=== PATIENT | female | born 1940 | race African-American/Black ===

== ENCOUNTER 2016-09-27 21:11 | Inpatient (IN) | payer MEDICARE, MEDICAID ==
[~2016-09-27] VITALS: Ht 162.6 cm; Wt 63.5 kg
[~2016-09-27 21:11] MED LIST: ASPIR 8181 MG ORAL; ATORVASTATIN CA20 MG ORAL; ATORVASTATIN CA40 MG ORAL; ATORVASTATIN CA80 MG ORAL; ATORVASTATIN CA80 MG PO; CARVEDILOL3.125 MG ORAL; CARVEDILOL6.25 MG ORAL; CLOPIDOGREL75 MG PO; COZAAR50 MG ORAL; DONEPEZIL HCL10 M2 ORAL; DONEPEZIL HCL5 M2 ORAL; FERROUS SULFAT325 MG ORAL; IMODIUM2 MG ORAL; LISINOPRIL10 MG PO; LOSARTAN POTASS25 MG ORAL; LOSARTAN POTASS50 MG PO; LYRICA25 MG ORAL; METFORMIN HCL500 M1 ORAL; METFORMIN HCL500 M1 PO; METOPROLOL SUCC50 MG PO; NIZORAL 2% C1 APPLIC TOPIC; NORCO 5-325 TA1 EAC1 ORAL; PLAVIX75 MG ORAL; PROCRIT20000 UNI2 SUBQ; SERTRALINE HCL100 MG ORAL; SERTRALINE HCL25 MG ORAL; TEMAZEPAM15 MG ORAL; TEMAZEPAM7.5 MG ORAL; TYLENOL325 MG ORAL; ZOFRAN ODT4 MG ORAL; ZOLPIDEM TARTRA10 MG PO
--- NOTE | 2016-09-27 21:46 | Emergency Room Report ---
History of Present Illness General Chief Complaint: Altered Level of Consciousness Source: Patient, Medical Record, EMS Present Illness HPI This is a 75-year-old female who is a Jehovah witness. She has a history of chronic anemia. She presents with chief complaint of feeling weak and tired. Onset for the last few days but worse today. Also has dysuria. Denies any fever chills denies any nausea vomiting. No abdominal pain. Worse with exertion. No chest pain. Allergies: Coded Allergies: LATEX (Unverified Allergy, Mild, Rash, 09/03/14) QUININE (Unverified Allergy, Unknown, Rash Hives, 05/23/15) Quinine Sulfate Patient History Past Medical History: see triage record, old chart reviewed, CAD, CHF, CVA/TIA Past Surgical History: pacemaker, other Pertinent Family History: none Social History: Denies: smoking Now: No Immunizations: other Reviewed Nursing Documentation: PMH: Agreed, PSxH: Agreed Nursing Documentation-PMH Past Medical History: No History, Except For Hx Cardiac Problems: Yes - CAD; s/p PTCA with 2 stents in 05/2014; CHF; hypercholesterolemia Hx Hypertension: Yes Hx Pacemaker: Yes - Left side Hx Asthma: Yes Hx Diabetes: Yes Hx Cancer: No Hx Gastrointestinal Problems: Yes - IBS; cholecystecomy; Hx Neurological Problems: Yes - Aphasia Hx Cerebrovascular Accident: Yes - 2015, left side deficit Hx Dementia: Yes Hx Vertigo: Yes Hx Dizziness: Yes Hx Syncope: Yes Hx Headaches: Yes Hx Weakness: Yes Hx Fatigue: Yes Review of Systems Constitutional: Reports: weakness Eye: Denies: blurred vision, eye pain ENT: Denies: ear pain, nose congestion, throat swelling Respiratory: Denies: cough, shortness of breath Cardiovascular: Denies: chest pain, palpitations Gastrointestinal: Denies: abdominal pain, diarrhea, nausea, vomiting Genitourinary: Reports: dysuria Musculoskeletal: Denies: back pain, joint pain Skin: Denies: rash Neurological: Denies: headache, numbness Endocrine: Denies: increased thirst, increased urine Hematologic/Lymphatic: Denies: easy bruising All Other Systems: negative except mentioned in HPI Physical Exam Vital Signs Date Time Temp Pulse Resp B/P Pulse Ox O2 Delivery O2 Flow Rate FiO2 09/27/16 21:00 98.6 70 16 145/81 97 Room Air vitals normal Sp02 EP Interpretation: reviewed, normal General Appearance: no apparent distress, alert, Chronically Ill Head: normocephalic, atraumatic Eyes: bilateral eye EOMI, bilateral eye PERRL, bilateral eye other - Pale conjunctiva ENT: hearing grossly normal, normal pharynx Neck: full range of motion, supple, no meningismus Respiratory: chest non-tender, lungs clear, normal breath sounds Cardiovascular #1: regular rate, rhythm, no murmur Gastrointestinal: normal bowel sounds, non tender, no mass, no organomegaly, no bruit, non-distended Musculoskeletal: back normal, normal range of motion Neurologic: alert, oriented x3, other - left hemiparesis, chronic Psychiatric: mood/affect normal Skin: warm/dry, pallor Medical Decision Making Diagnostic Impression: Primary Impression: UTI (urinary tract infection) Qualified Codes: N30.00 - Acute cystitis without hematuria Additional Impressions: Altered level of consciousness Anemia Qualified Codes: D50.9 - Iron deficiency anemia, unspecified Refusal of blood transfusions as patient is Sabianism ER Course Patient presents with altered mental status most likely secondary to infection. She is anemic. Hemoglobin worse and last admission. She refused transfusion because she is itchy all the witness. She looks euvolemic even though BNP is elevated. No evidence of fluid overloaded. Will admit for antibiotics. I discussed the case with Dr. Watson who was riding were for Dr. Jones. Lab Results Impression labs showed anemia EKG Diagnostic Results Rate: normal Rhythm: NSR - paced ST Segments: no acute changes Rhythm Strip Diag. Results EP Interpretation: yes Rate: 60 Rhythm: NSR, no PVC's, no ectopy, other - paced Last Vital Signs Date Time Temp Pulse Resp B/P Pulse Ox O2 Delivery O2 Flow Rate FiO2 09/27/16 21:00 98.6 70 16 145/81 97 Room Air Status: improved Disposition: ADMITTED INPATIENT Condition: Serious Referrals: Lobito Jones MD (PCP) SONALI TRIVEDI M.D. Sep 27, 2016 21:46
[2016-09-27 22:07] LABS: MEAN CORPUSCULAR HEMOGLOBIN 28.9 PG (27.0-31.0); MEAN CORPUSCULAR HGB CONC 31.6 G/DL (32.0-36.0); MEAN CORPUSCULAR VOLUME 92 FL (80-99); MEAN PLATELET VOLUME 6.5 FL (6.5-10.1); PLATELET COUNT 205 K/UL (150-450); RED BLOOD COUNT 2.66 M/UL (4.20-5.40); RED CELL DISTRIBUTION WIDTH 15.6 % (11.6-14.8); WHITE BLOOD COUNT 6.4 K/UL (4.8-10.8)
[2016-09-27 22:09] LABS: APPEARANCE,URINE CLEAR; KETONES,URINE NEGATIVE (NEGATIVE); LEUKOCYTE ESTERASE ,URINE 3+ (NEGATIVE); NITRITE,URINE NEGATIVE (NEGATIVE); PH,URINE 6 (4.5-8.0); PROTEIN,URINE NEGATIVE (NEGATIVE); UROBILINOGEN,URINE NORMAL MG/DL (0.0-1.0)
[2016-09-27 22:24] LABS: INR 1.1 (0.9-1.1); PROTHROMBIN TIME 11.7 SEC (9.30-11.50)
[2016-09-27 22:31] LABS: ALANINE AMINOTRANSFERASE 8 U/L (3-33); ALBUMIN/GLOBULIN RATIO 1.2 (1.0-2.7); ANION GAP 16 (5-15); ASPARTATE AMINO TRANSFERASE 14 U/L (5-40); CALCIUM 8.8 mg/dL (8.6-10.2); CARBON DIOXIDE 23 mEQ/L (20-30); CHLORIDE 103 mEQ/L (98-107); CREATININE 0.6 mg/dL (0.5-0.9); HEMOLYSIS 4; SODIUM 142 mEQ/L (135-145); TOTAL PROTEIN 6.2 g/dL (6.6-8.7); TROPONIN I < 0.30 ng/mL (<=0.30)
[2016-09-27 22:32] VITALS: BP 149/72
[2016-09-27 22:37] LABS: BACTERIA,URINE FEW /HPF; RBC,URINE 0-2 /HPF (0 - 2); SQUAMOUS EPITHELIAL CELL,UR MANY /LPF (NONE/OCC)
[2016-09-27] MEDS ORDERED: cefTRIAXone 1 GM in NS 55 ML IVPB ONE (22:45)
[2016-09-27] MEDS ORDERED: DuoNeb 0.5-3(2.5)mg/3ml neb HHN PRN (23:00)
[2016-09-27] MEDS ORDERED: Miralax 17gm pkt ORAL PRN (23:00)
[2016-09-27] MEDS ORDERED: Nitroglycerin Subl 0.4mg tab (Bottle Of 25) SL PRN (23:00)
[2016-09-27] MEDS ORDERED: Mylanta II UD 30ml ORAL PRN (23:00)
[2016-09-27 23:10] LABS: EOSINOPHILS % (MANUAL) 5 % (0-3); LYMPHOCYTES % (MANUAL) 23 % (20-45); NEUTROPHILS % (MANUAL) 70 % (45-75); TOTAL CELLS COUNTED 100
[2016-09-27 23:11] LABS: ANISOCYTOSIS 1+; BAND NEUTROPHILS % (MANUAL) 0 % (0-8); BASOPHILS % (MANUAL) 0 % (0-2); HYPOCHROMASIA 1+; PLATELET ESTIMATE ADEQUATE; PLATELET MORPHOLOGY NORMAL; POLYCHROMASIA 1+
[2016-09-28 00:31] VITALS: BP 190/84
[2016-09-28] MEDS ORDERED: cloNIDine 0.2mg Tab ORAL ONE (00:45)
[2016-09-28 04:00] VITALS: BP 111/71
[2016-09-28] MEDS: NovoLOG Insulin Flexpen SUBQ SCH ×4 (06:37→21:00)
[2016-09-28 08:09] VITALS: BP 151/73
[2016-09-28 08:21] LABS: MEAN CORPUSCULAR HEMOGLOBIN 28.3 PG (27.0-31.0); MEAN CORPUSCULAR HGB CONC 30.8 G/DL (32.0-36.0); MEAN CORPUSCULAR VOLUME 92 FL (80-99); PLATELET COUNT 196 K/UL (150-450); RED BLOOD COUNT 2.55 M/UL (4.20-5.40); RED CELL DISTRIBUTION WIDTH 15.9 % (11.6-14.8); WHITE BLOOD COUNT 6.2 K/UL (4.8-10.8)
[2016-09-28 08:55] LABS: ANION GAP 13 (5-15); CALCIUM 8.7 mg/dL (8.6-10.2); CARBON DIOXIDE 25 mEQ/L (20-30); CHLORIDE 105 mEQ/L (98-107); CREATININE 0.5 mg/dL (0.5-0.9); HEMOLYSIS 2; PHOSPHORUS 2.9 mg/dL (2.5-4.8); POTASSIUM 3.8 mEQ/L (3.4-4.9); SODIUM 143 mEQ/L (135-145)
[2016-09-28 09:00] LABS: HEMOLYSIS 1; IRON 21 ug/dL (37-145); TOTAL IRON BINDING CAPACITY 226 ug/dL (250-400)
[2016-09-28] MEDS: Sertraline 100mg tab ORAL SCH (09:00)
[2016-09-28] MEDS: Donepezil 5mg Tab ORAL SCH (09:00)
[2016-09-28] MEDS ORDERED: Cefepime HCl 1 GM in D5W 55 ML IV SCH (09:00)
[2016-09-28] MEDS: Losartan 25mg tab ORAL SCH (09:00)
[2016-09-28] MEDS: Heparin 5000 units/ml inj SUBQ SCH ×2 (09:01→21:16)
[2016-09-28 10:43] LABS: ANISOCYTOSIS 1+; BAND NEUTROPHILS % (MANUAL) 0 % (0-8); BASOPHILS % (MANUAL) 0 % (0-2); EOSINOPHILS % (MANUAL) 4 % (0-3); HYPOCHROMASIA 1+; LYMPHOCYTES % (MANUAL) 21 % (20-45); NEUTROPHILS % (MANUAL) 69 % (45-75); PLATELET ESTIMATE ADEQUATE; PLATELET MORPHOLOGY NORMAL; TOTAL CELLS COUNTED 100
[2016-09-28 10:52] LABS: OTHERS PATHOLOGIST COMMENT
[2016-09-28] MEDS ORDERED: Iron Sucrose 200 MG in NS 110 ML IVPB ONE ×2 (11:06→12:00)
[2016-09-28 11:25] VITALS: BP 145/84
--- NOTE | 2016-09-28 11:35 | Diagnostic Imaging Report ---
Indication: Dyspnea Comparison: 08/01/16 A single view chest radiograph was obtained. Findings: Heart is enlarged. Aorta is mildly enlarged the bones are osteopenic. There is a pacemaker on the left. Impression: No acute disease
--- NOTE | 2016-09-28 13:08 | Wound Care Consultation ---
Wound Assessment Wound Assessment : Wound Number: #1 Wound Present on Admission: Yes New Wound: No Status Change of Wound: No Wound Location Body Site Modif: mid Wound Location Body Site: sacral Wound Type: pressure ulcer Leesa Test: Does not Leesa Pressure Ulcer Stage: II Wound Thickness: Partial Thickness Wound Length: 3.0 Wound Width: 0.5 Wound Depth: 0.1 Percent of Wound [place]/Red: 100 Wound Drainage Amount: None Wound Drainage Odor: None/Absent Tissue Surrounding Wound: Macerated - linear wound present Wound General Appearance: Reddened Wound Comment #1 Mid Sacral Pressure Ulcer Stage II. Recommendation -Apply Low Air loss Overlay Mattress. -Provided treatment as previously ordered.Local wound care. -Optimize Nutrition. -Keep clean and dry. -Turn and reposition. -Offload feet and heels. -Heel protectors. -Assess and follow up with MD if any changes are noted. SAMANTHA KIM Sep 28, 2016 13:08
--- NOTE | 2016-09-28 15:14 | Consultation ---
History of Present Illness General Date patient seen: Sep 28, 2016 Chief Complaint: Altered Level of Consciousness Referring physician: Dr. Jones Reason for Consultation: dyspnea Present Illness HPI 75-year-old female with hx of pacemaker, Dementia, Jehovah witness brought in with chief complaint of feeling weak and tired. Onset for the last few days but worse today. She also has dysuria. Denies any fever chills denies any nausea vomiting. She was found to be severely anemic and because of her pace maker she is admitted to Telemetry. Allergies: Coded Allergies: LATEX (Unverified Allergy, Mild, Rash, 09/03/14) QUININE (Unverified Allergy, Unknown, Rash Hives, 05/23/15) Quinine Sulfate Medication History Scheduled Aspirin* (Aspir 81*), 81 MG ORAL DAILY, (Reported) Atorvastatin Calcium* (Atorvastatin Calcium*), 20 MG ORAL BEDTIME, (Reported) Carvedilol* (Carvedilol*), 3.125 MG ORAL BID, (Reported) Clopidogrel Bisulfate* (Plavix*), 75 MG ORAL DAILY, (Reported) Donepezil Hcl* (Donepezil Hcl*), 5 MG ORAL DAILY, (Reported) Ferrous Sulfate* (Ferrous Sulfate*), 325 MG ORAL DAILY, (Reported) Ketoconazole (Ketoconazole), 1 APPLIC TOPIC BID Losartan Potassium* (Losartan Potassium*), 25 MG ORAL DAILY, (Reported) Metformin Hcl* (Metformin Hcl*), 500 MG ORAL TWICE A DAY, (Reported) Sertraline Hcl* (Zoloft*), 100 MG ORAL DAILY, (Reported) Scheduled PRN Hydrocodone Bit/Acetaminophen 5-325* ([place] 5-325 Tablet*), 1 TAB ORAL Q6HR PRN for For Pain, (Reported) Temazepam (Temazepam*), 15 MG ORAL BEDTIME PRN for Insomnia, (Reported) Discontinued Medications Aspirin* (Aspir 81*), 81 MG ORAL DAILY, (Reported) Discontinued Reason: Medication dose changed Atorvastatin Calcium* (Atorvastatin Calcium*), 40 MG ORAL BEDTIME, (Reported) Discontinued Reason: Medication dose changed Losartan Potassium* (Cozaar*), 50 MG ORAL DAILY, (Reported) Discontinued Reason: Pt stopped taking med Patient History Healthcare decision maker Tanya Heath Resuscitation status Full Code Advanced Directive on File No Past Medical/Surgical History Past Medical/Surgical History: (1) Iron deficiency anemia (2) Hypertension (3) Diabetes mellitus (4) Pacemaker (5) Left hemiparesis Review of Systems All Other Systems: negative except mentioned in HPI Physical Exam General Appearance: WD/WN Lines, tubes and drains: peripheral HEENT: normocephalic, atraumatic Neck: normal alignment Respiratory/Chest: chest wall non-tender, lungs clear Abdomen: normal bowel sounds, non tender Extremities: normal range of motion Skin Exam: normal pigmentation Last 24 Hour Vital Signs Date Time Temp Pulse Resp B/P Pulse Ox O2 Delivery O2 Flow Rate FiO2 09/28/16 12:00 60 09/28/16 11:25 97.5 64 18 145/84 100 Room Air 09/28/16 09:20 63 18 09/28/16 09:01 63 151/73 09/28/16 09:00 151/73 09/28/16 08:09 97.3 63 18 151/73 100 Room Air 09/28/16 08:00 62 09/28/16 04:00 62 09/28/16 04:00 97.5 64 16 111/71 98 Room Air 09/28/16 01:33 98.6 62 14 190/84 100 Room Air 09/28/16 00:40 190/84 09/28/16 00:31 62 14 190/84 100 Room Air 09/27/16 22:32 98.6 61 19 149/72 100 Room Air 09/27/16 21:00 98.6 70 16 145/81 97 Room Air Intake and Output 09/27/16 09/28/16 19:00 07:00 Intake Total 1290 ml Output Total 250 ml Balance 1040 ml Intake Oral 240 ml IV Total 1050 ml Output Urine Total 250 ml # Bowel Movements 1 Laboratory Tests Test 09/27/16 21:45 09/27/16 21:50 09/28/16 07:10 White Blood Count 6.4 K/UL (4.8-10.8) 6.2 K/UL (4.8-10.8) Red Blood Count 2.66 M/UL (4.20-5.40) L 2.55 M/UL (4.20-5.40) L Hemoglobin 7.7 G/DL (12.0-16.0) L 7.2 G/DL (12.0-16.0) L Hematocrit 24.4 % (37.0-47.0) L 23.4 % (37.0-47.0) L Mean Corpuscular Volume 92 FL (80-99) 92 FL (80-99) Mean Corpuscular Hemoglobin 28.9 PG (27.0-31.0) 28.3 PG (27.0-31.0) Mean Corpuscular Hemoglobin Concent 31.6 G/DL (32.0-36.0) L 30.8 G/DL (32.0-36.0) L Red Cell Distribution Width 15.6 % (11.6-14.8) H 15.9 % (11.6-14.8) H Platelet Count 205 K/UL (150-450) 196 K/UL (150-450) Mean Platelet Volume 6.5 FL (6.5-10.1) 7.0 FL (6.5-10.1) Neutrophils (%) (Auto) % (45.0-75.0) % (45.0-75.0) Lymphocytes (%) (Auto) % (20.0-45.0) % (20.0-45.0) Monocytes (%) (Auto) % (1.0-10.0) % (1.0-10.0) Eosinophils (%) (Auto) % (0.0-3.0) % (0.0-3.0) Basophils (%) (Auto) % (0.0-2.0) % (0.0-2.0) Differential Total Cells Counted 100 100 Neutrophils % (Manual) 70 % (45-75) 69 % (45-75) Lymphocytes % (Manual) 23 % (20-45) 21 % (20-45) Monocytes % (Manual) 2 % (1-10) 6 % (1-10) Eosinophils % (Manual) 5 % (0-3) H 4 % (0-3) H Basophils % (Manual) 0 % (0-2) 0 % (0-2) Band Neutrophils 0 % (0-8) 0 % (0-8) Other Cell Type Pathologist comment Platelet Estimate Adequate Adequate Platelet Morphology Normal Normal Polychromasia 1+ Hypochromasia 1+ 1+ Anisocytosis 1+ 1+ Prothrombin Time 11.7 SEC (9.30-11.50) H Prothromb Time International Ratio 1.1 (0.9-1.1) Activated Partial Thromboplast Time 27 SEC (23-33) Sodium Level 142 mEQ/L (135-145) 143 mEQ/L (135-145) Potassium Level 4.0 mEQ/L (3.4-4.9) 3.8 mEQ/L (3.4-4.9) Chloride Level 103 mEQ/L (98-107) 105 mEQ/L (98-107) Carbon Dioxide Level 23 mEQ/L (20-30) 25 mEQ/L (20-30) Anion Gap 16 (5-15) H 13 (5-15) Blood Urea Nitrogen 16 mg/dL (7-23) 14 mg/dL (7-23) Creatinine 0.6 mg/dL (0.5-0.9) 0.5 mg/dL (0.5-0.9) Estimat Glomerular Filtration Rate mL/min (>60) mL/min (>60) Glucose Level 108 mg/dL (74-106) H 108 mg/dL (74-106) H Lactic Acid Level 1.10 mmol/L (0.66-2.22) Calcium Level 8.8 mg/dL (8.6-10.2) 8.7 mg/dL (8.6-10.2) Total Bilirubin 0.2 mg/dL (0.0-1.2) Aspartate Amino Transf (AST/SGOT) 14 U/L (5-40) Alanine Aminotransferase (ALT/SGPT) 8 U/L (3-33) Alkaline Phosphatase 72 U/L (35-104) Total Creatine Kinase 44 U/L (26-140) Troponin I < 0.30 ng/mL (<=0.30) Pro-B-Type Natriuretic Peptide 3242 pg/mL (0-125) H Total Protein 6.2 g/dL (6.6-8.7) L Albumin 3.4 g/dL (3.5-5.2) L 3.3 g/dL (3.5-5.2) L Globulin 2.8 g/dL Albumin/Globulin Ratio 1.2 (1.0-2.7) Urine Color Pale yellow Urine Appearance Clear Urine pH 6 (4.5-8.0) Urine Specific [place] 1.010 (1.005-1.035) Urine Protein Negative (NEGATIVE) Urine Glucose (UA) Negative (NEGATIVE) Urine Ketones Negative (NEGATIVE) Urine Occult Blood 3+ (NEGATIVE) H Urine Nitrite Negative (NEGATIVE) Urine Bilirubin Negative (NEGATIVE) Urine Urobilinogen Normal MG/DL (0.0-1.0) Urine Leukocyte Esterase 3+ (NEGATIVE) H Urine RBC 0-2 /HPF (0 - 2) Urine WBC 5-10 /HPF (0 - 2) H Urine Squamous Epithelial Cells Many /LPF (NONE/OCC) H Urine Bacteria Few /HPF (NONE) Phosphorus Level 2.9 mg/dL (2.5-4.8) Iron Level 21 ug/dL (37-145) L Total Iron Binding Capacity 226 ug/dL (250-400) L Percent Iron Saturation 9 % (15-50) L Unsaturated Iron Binding 205 ug/dL (112-346) Microbiology Date/Time Source Procedure Growth Status 09/28/16 02:00 Wound Gram Stain - Final Resulted 09/28/16 02:00 Wound Wound Culture Pending Resulted 09/27/16 21:58 Nasal Nares Influenza Types A,B Antigen (CARLOS) - Final Complete Height (Feet): 5 Height (Inches): 4.00 Weight (Pounds): 140 Medications Current Medications Medications (Trade) Dose Ordered Sig/Don Route PRN Reason Start Time Stop Time Status Last Admin Dose Admin Acetaminophen (Tylenol) 650 mg Q4H PRN ORAL fever 09/27/16 23:00 10/27/16 22:59 Al Hydroxide/Mg Hydroxide (Mylanta II) 30 ml Q6H PRN ORAL dyspepsia 09/27/16 23:00 10/27/16 22:59 Albuterol/ Ipratropium (DuoNeb 0.5-3(2.5)mg/3ml) 3 ml EVERY 4 HOURS PRN HHN Shortness of Breath 09/27/16 23:00 10/02/16 22:59 Atorvastatin Calcium (Lipitor) 20 mg BEDTIME ORAL 09/28/16 21:00 10/28/16 20:59 Carvedilol (Coreg) 3.125 mg BID ORAL 09/28/16 09:00 10/28/16 08:59 09/28/16 09:01 Cefepime HCl/ Dextrose (Maxipime/D5W) 55 ml @ 110 mls/hr Q24H IV 09/29/16 09:00 10/06/16 08:59 Clopidogrel Bisulfate (Plavix) 75 mg DAILY ORAL 09/28/16 09:00 10/28/16 08:59 09/28/16 09:00 Dextrose (Dextrose 50%) STAT PRN IV Hypoglycemia 09/27/16 23:00 10/27/16 22:59 Donepezil HCl (Aricept) 5 mg DAILY ORAL 09/28/16 09:00 10/28/16 08:59 09/28/16 09:00 Epoetin Barak 05896 units 10,000 units MON-SUN-SUN SUBQ 09/29/16 21:00 10/29/16 20:59 Heparin Sodium (Porcine) (Heparin 5000 units/ml) 5,000 units EVERY 12 HOURS SUBQ 09/28/16 09:00 10/28/16 08:59 09/28/16 09:01 Insulin Aspart (NovoLOG) BEFORE MEALS AND HS SUBQ 09/28/16 06:30 10/28/16 06:29 09/28/16 06:37 Losartan Potassium (Cozaar) 25 mg DAILY ORAL 09/28/16 09:00 10/28/16 08:59 09/28/16 09:00 Nitroglycerin (Ntg) 0.4 mg Q5M PRN SL Prn Chest Pain 09/27/16 23:00 10/27/16 22:59 Ondansetron HCl (Zofran) 4 mg Q6H PRN IVP Nausea & Vomiting 09/27/16 23:00 10/27/16 22:59 Polyethylene Glycol (Miralax) 17 gm DAILYPRN PRN ORAL Constipation 09/27/16 23:00 10/27/16 22:59 Sertraline HCl (Zoloft) 100 mg DAILY ORAL 09/28/16 09:00 10/28/16 08:59 09/28/16 09:00 Temazepam (Restoril) 15 mg HSPRN PRN ORAL Insomnia 09/27/16 23:00 10/04/16 22:59 Assessment/Plan Problem List: (1) Symptomatic anemia ICD Codes: D64.9 - Anemia, unspecified SNOMED: 466931719 (2) UTI (urinary tract infection) ICD Codes: N39.0 - Urinary tract infection, site not specified SNOMED: 10040642 Qualifiers: Qualified Codes: N30.00 - Acute cystitis without hematuria (3) Asthma ICD Codes: J45.909 - Asthma SNOMED: 546172372 Qualifiers: Qualified Codes: J45.20 - Mild intermittent asthma, uncomplicated (4) Diabetes mellitus ICD Codes: E11.9 - Diabetes mellitus SNOMED: 23009374 (5) Hypertension ICD Codes: I10 - Hypertension SNOMED: 21024827 (6) Iron deficiency anemia ICD Codes: D50.9 - Iron deficiency anemia SNOMED: 40621181 Assessment/Plan urine c/s iv antibiotics epogen and IV venofer avoid daily blood drawing dvt prophylaxis respiratory treatment. titrate fio2 to sat of 92% MARLENY TURPIN Sep 28, 2016 15:14
[2016-09-28 16:00] VITALS: BP 141/67
--- NOTE | 2016-09-28 18:39 | History & Physical ---
History and Physical History & Physicial Dictated for Int Med-Dr Jones no. [id number]. DELFIN MARTINEZ Sep 28, 2016 18:38
[2016-09-28 20:00] VITALS: BP 149/65
[2016-09-29 00:10] VITALS: BP 157/89
--- NOTE | 2016-09-29 00:37 | History and Physical Report ---
DATE OF ADMISSION: 09/27/2016 CHIEF COMPLAINT: The patient is a 75-year-old female presents with complaint of fatigue. HISTORY OF PRESENT ILLNESS: The patient was admitted to [facility] on 07/30/2016 with a syncopal episode. The patient was found to have severe anemia. The patient is a Yazdanism and has refused transfusions in the past. The patient states history of present illness began several days prior to admission. The patient began increasingly fatigue. The patient also complains of dysuria. The patient denies fever or chills. The patient denies chest pain. The patient presented to [facility] emergency room. The patient was found to have hemoglobin of 7.7. The patient was admitted for anemia and fatigue. PAST MEDICAL HISTORY: Significant for, 1. Cerebrovascular accident 2. Left hemiparesis. 3. Coronary artery disease status post stent in 2014. 4. Congestive heart failure. 5. Diabetes type 2. 6. Hypertension. 7. Hypercholesterolemia. 8. History of deep venous thrombosis with IVC placement. 9. Pacemaker in situ. PAST SURGICAL HISTORY: Significant for, 1. Cholecystectomy. 2. Cervical spine fusion. 3. Lumbar spine surgery . 4. Bilateral total knee arthroplasty. 5. Carotid stenting for carotid stenosis. CURRENT MEDICATIONS: 1. Aspirin 81 mg one tablet p.o. daily. 2. Lipitor 20 mg one tablet p.o. daily. 3. Carvedilol 3.125 mg one tablet p.o. twice daily. 4. Plavix 75 mg one table p.o. daily. 5. Aricept 5 mg one tablet p.o. daily. 6. Iron sulfate 325 mg one tablet p.o. daily. 7. [place] 5/325 mg one tablet p.o. q.6 hours p.r.n. 8. Losartan 25 mg one tablet p.o. daily. 9. Metformin 500 mg one tablet p.o. twice daily. 10. Zoloft 100 mg one tablet p.o. daily. ALLERGIES: To latex and quinine. SOCIAL HISTORY: The patient is a Yazdanism. The patient is . The patient denies tobacco or alcohol use. REVIEW OF SYSTEMS: Constitutional: The patient denies weight loss or weight gain. The patient denies fevers or chills. HEENT: The patient denies ear or throat pain. Cardiovascular: The patient denies palpitations or chest pain. Chest: The patient denies wheezes or shortness of breath. Abdomen: The patient denies nausea, vomiting, or constipation. Genitourinary: The patient denies dysuria or increased frequency of urination. Neuromuscular: The patient complains of generalized fatigue. The patient denies seizures. PHYSICAL EXAMINATION: VITAL SIGNS: Temperature 97.5 degrees, respirations 18, pulse 64, and blood pressure 145/84. GENERAL: The patient is well-developed and well-nourished female, in no apparent distress. HEENT: Eyes, pupils are equal and responsive to light and accommodation. Extraocular movements intact. NECK: Supple without lymphadenopathy. CHEST: Lungs are clear to auscultation bilaterally without wheezes or rales. CARDIOVASCULAR: Regular rhythm and rate. S1, S2 normal without murmurs, rubs, or gallops. ABDOMEN: Soft, nontender, and nondistended. Positive bowel sounds. No evidence of hepatosplenomegaly. Currently, no rebound or guarding. EXTREMITIES: Negative for clubbing, cyanosis, or or edema. RECTAL: Refused. GENITAL: Refused. NEUROLOGIC: Cranial nerves II through XII grossly intact without focal deficits. The patient's motor strength is 3/5 in the left and 5/5 in the right. Deep tendon reflexes are 2+ plantar. LABORATORY STUDIES: WBC 6.5, hemoglobin 7.7, hematocrit 24.4, and platelets 225,000. Sodium 142, potassium 4.0, chloride 103, CO2 22, BUN 16, creatinine 0.6, and glucose 108. Urinalysis showed 3+ occult blood, 3+ leukocyte esterase, and 5-10 WBC. ASSESSMENT: This is a 75-year-old female, 1. Fatigue. 2. Anemia. 3. Dysuria. 4. Cerebrovascular disease. 5. Left hemiplegia. 6. Coronary artery disease. 7. Congestive heart failure. 8. Diabetes type 2. 9. Hypertension. 10. Hypercholesterolemia. 11. History of deep venous thrombosis. 12. Pacemaker. TREATMENT: 1. Fatigue/severe anemia. The patient has been placed on intravenous Venofer. The patient is a Yazdanism. The patient has refused blood transfusions in the past. 2. Dysuria. The patient has been started empirically on cefepime. Urine culture is pending. 3. Cerebrovascular disease/left hemiparesis. A physical therapy consultation is pending. 4. Coronary artery disease/congestive heart failure. Cardiology consultation was obtained with Dr. Vila . We will follow recommendation of Dr. Vila. 5. Diabetes type 2. A regular insulin sliding scale has been instituted. 6. Hypertension. Continue losartan and carvedilol as above. 7. Hypercholesterolemia. Continue Lipitor as above. 8. History of deep venous thrombosis, status post inferior vena cava. 9. Pacemaker. Lorne Rios M.D. DR: Eric JOB#: [id number] CC:
[2016-09-29 04:15] VITALS: BP 183/81
[2016-09-29] MEDS: NovoLOG Insulin Flexpen SUBQ SCH ×4 (06:57→20:47)
[2016-09-29 07:56] LABS: MEAN CORPUSCULAR HEMOGLOBIN 28.8 PG (27.0-31.0); MEAN CORPUSCULAR HGB CONC 31.4 G/DL (32.0-36.0); MEAN CORPUSCULAR VOLUME 92 FL (80-99); MEAN PLATELET VOLUME 6.7 FL (6.5-10.1); PLATELET COUNT 200 K/UL (150-450); RED BLOOD COUNT 2.64 M/UL (4.20-5.40); RED CELL DISTRIBUTION WIDTH 15.8 % (11.6-14.8); WHITE BLOOD COUNT 5.8 K/UL (4.8-10.8)
[2016-09-29 07:57] VITALS: BP 146/84
[2016-09-29 08:06] LABS: TROPONIN I < 0.30 ng/mL (<=0.30)
[2016-09-29 08:08] LABS: ANION GAP 12 (5-15); CALCIUM 8.9 mg/dL (8.6-10.2); CARBON DIOXIDE 25 mEQ/L (20-30); CHLORIDE 104 mEQ/L (98-107); CREATININE 0.6 mg/dL (0.5-0.9); HEMOLYSIS 13; POTASSIUM 3.6 mEQ/L (3.4-4.9); SODIUM 141 mEQ/L (135-145)
[2016-09-29] MEDS: Losartan 25mg tab ORAL SCH (09:46)
[2016-09-29] MEDS: Sertraline 100mg tab ORAL SCH (09:47)
[2016-09-29] MEDS: Heparin 5000 units/ml inj SUBQ SCH ×2 (09:47→20:47)
[2016-09-29] MEDS: Donepezil 5mg Tab ORAL SCH (09:48)
[2016-09-29] MEDS: Cefepime HCl 1 GM in D5W 55 ML IV SCH (10:00)
[2016-09-29 10:44] LABS: ANISOCYTOSIS 1+; BAND NEUTROPHILS % (MANUAL) 0 % (0-8); BASOPHILS % (MANUAL) 0 % (0-2); EOSINOPHILS % (MANUAL) 9 % (0-3); HYPOCHROMASIA 1+; LYMPHOCYTES % (MANUAL) 20 % (20-45); NEUTROPHILS % (MANUAL) 70 % (45-75); PLATELET ESTIMATE ADEQUATE; PLATELET MORPHOLOGY NORMAL; TOTAL CELLS COUNTED 100
[2016-09-29 12:00] VITALS: BP 151/68
--- NOTE | 2016-09-29 15:14 | Pulmonology Progress Note ---
Assessment/Plan Problems: (1) Symptomatic anemia (2) UTI (urinary tract infection) (3) Asthma (4) Diabetes mellitus (5) Hypertension (6) Iron deficiency anemia Assessment/Plan stable bc position, ID pending continue antibiotics avoid blood draw pt/ot med/surg. Subjective ROS Limited/Unobtainable: No Interval Events: feeling slightly better Constitutional: Reports: no symptoms HEENT: Repors: no symptoms Allergies: Coded Allergies: LATEX (Unverified Allergy, Mild, Rash, 09/03/14) QUININE (Unverified Allergy, Unknown, Rash Hives, 05/23/15) Quinine Sulfate Objective Last 24 Hour Vital Signs Date Time Temp Pulse Resp B/P Pulse Ox O2 Delivery O2 Flow Rate FiO2 09/29/16 12:00 98.3 69 20 151/68 98 Room Air 09/29/16 09:50 65 18 Room Air 09/29/16 09:48 67 146/84 09/29/16 09:46 146/84 09/29/16 08:00 60 09/29/16 07:57 98.1 67 18 146/84 98 Room Air 09/29/16 04:15 98.0 62 20 183/81 98 Room Air 09/29/16 04:00 65 09/29/16 00:10 97.7 58 20 157/89 98 Room Air 09/29/16 00:00 60 09/28/16 20:00 97.2 61 20 149/65 97 Room Air 09/28/16 20:00 60 09/28/16 19:08 67 18 Room Air 09/28/16 17:11 60 141/67 09/28/16 16:00 60 09/28/16 16:00 97.5 60 20 141/67 99 Room Air Intake and Output 09/28/16 09/29/16 19:00 07:00 Intake Total 295 ml 260 ml Output Total 200 ml 1500 ml Balance 95 ml -1240 ml Intake Oral 120 ml 260 ml IV Total 175 ml Output Urine Total 200 ml 1500 ml General Appearance: WD/WN HEENT: normocephalic, atraumatic, anicteric Respiratory/Chest: chest wall non-tender, lungs clear Cardiovascular: normal peripheral pulses, normal rate Abdomen: normal bowel sounds, soft, non tender Extremities: no cyanosis Neurologic/Psychiatric: exec. creative director II-XII grossly normal Microbiology Date/Time Source Procedure Growth Status 09/27/16 22:20 Blood Blood Culture - Preliminary Resulted 09/27/16 22:10 Blood Blood Culture - Preliminary NO GROWTH AFTER 24 HOURS Resulted 09/28/16 02:00 Wound Gram Stain - Final Resulted 09/28/16 02:00 Wound Wound Culture Pending Resulted 09/27/16 21:58 Nasal Nares Influenza Types A,B Antigen (CARLOS) - Final Complete Laboratory Tests 09/29/16 06:35: White Blood Count 5.8, Red Blood Count 2.64L, Hemoglobin 7.6L, Hematocrit 24.3L , Mean Corpuscular Volume 92, Mean Corpuscular Hemoglobin 28.8, Mean Corpuscular Hemoglobin Concent 31.4L, Red Cell Distribution Width 15.8H, Platelet Count 200, Mean Platelet Volume 6.7, Neutrophils (%) (Auto) , Lymphocytes (%) (Auto) , Monocytes (%) (Auto) , Eosinophils (%) (Auto) , Basophils (%) (Auto) , Differential Total Cells Counted 100, Neutrophils % ( Manual) 70, Lymphocytes % (Manual) 20, Monocytes % (Manual) 1, Eosinophils % ( Manual) 9H, Basophils % (Manual) 0, Band Neutrophils 0, Platelet Estimate Adequate, Platelet Morphology Normal, Hypochromasia 1+, Anisocytosis 1+, Sodium Level 141, Potassium Level 3.6, Chloride Level 104, Carbon Dioxide Level 25, Anion Gap 12, Blood Urea Nitrogen 14, Creatinine 0.6, Estimat Glomerular Filtration Rate , Glucose Level 105, Calcium Level 8.9, Troponin I < 0.30, Pro-B -Type Natriuretic Peptide 2863H Current Medications Medications (Trade) Dose Ordered Sig/Don Route PRN Reason Start Time Stop Time Status Last Admin Dose Admin Acetaminophen (Tylenol) 650 mg Q4H PRN ORAL fever 09/27/16 23:00 10/27/16 22:59 Al Hydroxide/Mg Hydroxide (Mylanta II) 30 ml Q6H PRN ORAL dyspepsia 09/27/16 23:00 10/27/16 22:59 Albuterol/ Ipratropium (DuoNeb 0.5-3(2.5)mg/3ml) 3 ml EVERY 4 HOURS PRN HHN Shortness of Breath 09/27/16 23:00 10/02/16 22:59 Atorvastatin Calcium (Lipitor) 20 mg BEDTIME ORAL 09/28/16 21:00 10/28/16 20:59 09/28/16 21:12 Carvedilol (Coreg) 3.125 mg BID ORAL 09/28/16 09:00 10/28/16 08:59 09/29/16 09:48 Cefepime HCl/ Dextrose (Maxipime/D5W) 55 ml @ 110 mls/hr Q24H IV 09/29/16 09:00 10/06/16 08:59 09/29/16 10:00 Clopidogrel Bisulfate (Plavix) 75 mg DAILY ORAL 09/28/16 09:00 10/28/16 08:59 09/29/16 09:47 Dextrose (Dextrose 50%) STAT PRN IV Hypoglycemia 09/27/16 23:00 10/27/16 22:59 Donepezil HCl (Aricept) 5 mg DAILY ORAL 09/28/16 09:00 10/28/16 08:59 09/29/16 09:48 Epoetin Barak 81275 units 10,000 units SUN-SUN-SUN SUBQ 09/29/16 21:00 10/29/16 20:59 Heparin Sodium (Porcine) (Heparin 5000 units/ml) 5,000 units EVERY 12 HOURS SUBQ 09/28/16 09:00 10/28/16 08:59 09/29/16 09:47 Insulin Aspart (NovoLOG) BEFORE MEALS AND HS SUBQ 09/28/16 06:30 10/28/16 06:29 09/29/16 06:57 Losartan Potassium (Cozaar) 25 mg DAILY ORAL 09/28/16 09:00 10/28/16 08:59 09/29/16 09:46 Nitroglycerin (Ntg) 0.4 mg Q5M PRN SL Prn Chest Pain 09/27/16 23:00 10/27/16 22:59 Ondansetron HCl (Zofran) 4 mg Q6H PRN IVP Nausea & Vomiting 09/27/16 23:00 10/27/16 22:59 Polyethylene Glycol (Miralax) 17 gm DAILYPRN PRN ORAL Constipation 09/27/16 23:00 10/27/16 22:59 Sertraline HCl (Zoloft) 100 mg DAILY ORAL 09/28/16 09:00 2/18/17 08:59 09/29/16 09:47 Temazepam (Restoril) 15 mg HSPRN PRN ORAL Insomnia 09/27/16 23:00 10/04/16 22:59 MRALENY TURPIN Sep 29, 2016 15:14
--- NOTE | 2016-09-29 15:19 | Internal Med Progress Note ---
Subjective Physician Name Lobito Jones Attending Physician Lobito Jones MD Current Medications Medications (Trade) Dose Ordered Sig/Don Route PRN Reason Start Time Stop Time Status Last Admin Dose Admin Acetaminophen (Tylenol) 650 mg Q4H PRN ORAL fever 09/27/16 23:00 10/27/16 22:59 Al Hydroxide/Mg Hydroxide (Mylanta II) 30 ml Q6H PRN ORAL dyspepsia 09/27/16 23:00 10/27/16 22:59 Albuterol/ Ipratropium (DuoNeb 0.5-3(2.5)mg/3ml) 3 ml EVERY 4 HOURS PRN HHN Shortness of Breath 09/27/16 23:00 10/02/16 22:59 Atorvastatin Calcium (Lipitor) 20 mg BEDTIME ORAL 09/28/16 21:00 10/28/16 20:59 09/28/16 21:12 Carvedilol (Coreg) 3.125 mg BID ORAL 09/28/16 09:00 10/28/16 08:59 09/29/16 09:48 Cefepime HCl/ Dextrose (Maxipime/D5W) 55 ml @ 110 mls/hr Q24H IV 09/29/16 09:00 10/06/16 08:59 09/29/16 10:00 Clopidogrel Bisulfate (Plavix) 75 mg DAILY ORAL 09/28/16 09:00 10/28/16 08:59 09/29/16 09:47 Dextrose (Dextrose 50%) STAT PRN IV Hypoglycemia 09/27/16 23:00 10/27/16 22:59 Donepezil HCl (Aricept) 5 mg DAILY ORAL 09/28/16 09:00 10/28/16 08:59 09/29/16 09:48 Epoetin Barak 49279 units 10,000 units MON-WED-FRI SUBQ 09/29/16 21:00 10/29/16 20:59 Heparin Sodium (Porcine) (Heparin 5000 units/ml) 5,000 units EVERY 12 HOURS SUBQ 09/28/16 09:00 10/28/16 08:59 09/29/16 09:47 Insulin Aspart (NovoLOG) BEFORE MEALS AND HS SUBQ 09/28/16 06:30 10/28/16 06:29 09/29/16 06:57 Losartan Potassium (Cozaar) 25 mg DAILY ORAL 09/28/16 09:00 10/28/16 08:59 09/29/16 09:46 Nitroglycerin (Ntg) 0.4 mg Q5M PRN SL Prn Chest Pain 09/27/16 23:00 10/27/16 22:59 Ondansetron HCl (Zofran) 4 mg Q6H PRN IVP Nausea & Vomiting 09/27/16 23:00 10/27/16 22:59 Polyethylene Glycol (Miralax) 17 gm DAILYPRN PRN ORAL Constipation 09/27/16 23:00 10/27/16 22:59 Sertraline HCl (Zoloft) 100 mg DAILY ORAL 09/28/16 09:00 10/28/16 08:59 09/29/16 09:47 Temazepam (Restoril) 15 mg HSPRN PRN ORAL Insomnia 09/27/16 23:00 10/04/16 22:59 Allergies: Coded Allergies: LATEX (Unverified Allergy, Mild, Rash, 09/03/14) QUININE (Unverified Allergy, Unknown, Rash Hives, 05/23/15) Quinine Sulfate Subjective awake, alert, responsive, feeling weak Objective Last Vital Signs Date Time Temp Pulse Resp B/P Pulse Ox O2 Delivery O2 Flow Rate FiO2 09/29/16 12:00 98.3 69 20 151/68 98 Room Air Laboratory Tests Test 09/29/16 06:35 White Blood Count 5.8 K/UL (4.8-10.8) Red Blood Count 2.64 M/UL (4.20-5.40) L Hemoglobin 7.6 G/DL (12.0-16.0) L Hematocrit 24.3 % (37.0-47.0) L Mean Corpuscular Volume 92 FL (80-99) Mean Corpuscular Hemoglobin 28.8 PG (27.0-31.0) Mean Corpuscular Hemoglobin Concent 31.4 G/DL (32.0-36.0) L Red Cell Distribution Width 15.8 % (11.6-14.8) H Platelet Count 200 K/UL (150-450) Mean Platelet Volume 6.7 FL (6.5-10.1) Neutrophils (%) (Auto) % (45.0-75.0) Lymphocytes (%) (Auto) % (20.0-45.0) Monocytes (%) (Auto) % (1.0-10.0) Eosinophils (%) (Auto) % (0.0-3.0) Basophils (%) (Auto) % (0.0-2.0) Differential Total Cells Counted 100 Neutrophils % (Manual) 70 % (45-75) Lymphocytes % (Manual) 20 % (20-45) Monocytes % (Manual) 1 % (1-10) Eosinophils % (Manual) 9 % (0-3) H Basophils % (Manual) 0 % (0-2) Band Neutrophils 0 % (0-8) Platelet Estimate Adequate Platelet Morphology Normal Hypochromasia 1+ Anisocytosis 1+ Sodium Level 141 mEQ/L (135-145) Potassium Level 3.6 mEQ/L (3.4-4.9) Chloride Level 104 mEQ/L (98-107) Carbon Dioxide Level 25 mEQ/L (20-30) Anion Gap 12 (5-15) Blood Urea Nitrogen 14 mg/dL (7-23) Creatinine 0.6 mg/dL (0.5-0.9) Estimat Glomerular Filtration Rate mL/min (>60) Glucose Level 105 mg/dL (74-106) Calcium Level 8.9 mg/dL (8.6-10.2) Troponin I < 0.30 ng/mL (<=0.30) Pro-B-Type Natriuretic Peptide 2863 pg/mL (0-125) H Microbiology Date/Time Source Procedure Growth Status 09/27/16 22:20 Blood Blood Culture - Preliminary Resulted 09/27/16 22:10 Blood Blood Culture - Preliminary NO GROWTH AFTER 24 HOURS Resulted 09/28/16 02:00 Wound Gram Stain - Final Resulted 09/28/16 02:00 Wound Wound Culture Pending Resulted 09/27/16 21:58 Nasal Nares Influenza Types A,B Antigen (CARLOS) - Final Complete Intake and Output 09/28/16 09/29/16 19:00 07:00 Intake Total 295 ml 260 ml Output Total 200 ml 1500 ml Balance 95 ml -1240 ml Intake Oral 120 ml 260 ml IV Total 175 ml Output Urine Total 200 ml 1500 ml Objective GENERAL: The patient is well-developed and well-nourished female, in no apparent distress. HEENT: Eyes, pupils are equal and responsive to light and accommodation. Extraocular movements intact. NECK: Supple without lymphadenopathy. CHEST: Lungs are clear to auscultation bilaterally, decrease air on bases, No wheezes. CARDIOVASCULAR: Regular rhythm and rate. S1, S2 normal without murmur, left chest wall Pacemaker. ABDOMEN: Soft, nontender, and nondistended. Positive bowel sounds. EXTREMITIES: Negative for clubbing, cyanosis, or or edema. RECTAL: Refused. GENITAL: Harris cath. NEUROLOGIC: Cranial nerves II through XII grossly intact without focal deficits. The patient's motor strength is 3/5 in the left UE and 5/5 in the right side. Assessment/Plan Assessment/Plan 1. UTI 2. Anemia. 3. Dysuria. 4. Cerebrovascular disease. 5. Left hemiplegia. 6. Coronary artery disease. 7. Congestive heart failure. 8. Diabetes type 2. 9. Hypertension. 10. Hypercholesterolemia. 11. History of deep venous thrombosis. 12. SSS s/p Pacemaker. Plan: Abx: Cefepime IV monitor Culture and labs DC Harris cath consider Dc telemetry in Lobito Jones MD Sep 29, 2016 15:19
[2016-09-29 16:00] VITALS: BP 159/81
--- NOTE | 2016-09-29 16:51 | Consultation ---
Consult Note Consult Note ID CONSULT: Dict# [id number] Assessment/Plan ASSESSMENT: 75 y/o female with: // GPC clusters bacteremia 09/13 - real vs contaminant. C&S pending - knee, spinal hardware, IVC filter, carotid stent, PPM in place // Probable UTI - UCx not sent // Stage II sacral decubitus ulcer, not grossly infected - surveillance WCx pending // Negative influenza // Afebrile without leukocytosis // Symptomatic anemia of chronic disease - Roman Catholic, refuses blood products // CAD / CHF SP PPM // h/o DVT SP IVC filter // No ABX allergies // Full Code PLAN: - continue empiric cefepime d# 1, add IV vancomycin d# 1 pending C&S - send delayed UCx - f/u cultures - monitor CBC, temperatures - monitor BMP Thanks! Will follow [facility] Sep 29, 2016 16:51
[2016-09-29] MEDS: Vancomycin 1gm in D5W 275ml IVPB SCH (17:38)
[2016-09-29 20:00] VITALS: BP_SYST 143; BP_SYST 153; BP_DIAS 83; BP_DIAS 97
--- NOTE | 2016-09-29 20:19 | Consultation ---
Consult Note Consult Note Cardiac EP/ cardiology for Dr. Vila #[id number] CLAIR MAHAN Sep 29, 2016 20:19
[2016-09-29] MEDS ORDERED: Epogen (for non ESRD use) SUBQ SCH (21:00)
--- NOTE | 2016-09-29 23:57 | Consultation ---
DATE OF CONSULTATION: 09/29/2016 INFECTIOUS DISEASE CONSULTATION CONSULTING PHYSICIAN: Isidro Toussaint M.D. REQUESTING PHYSICIAN: Lobito Jones M.D. REASON FOR CONSULTATION: Bacteremia and urinary tract infection. HISTORY OF PRESENT ILLNESS: This is a 75-year-old bedbound female, with a history of a stroke and chronic anemia, admitted 09/27/2016 with generalized weakness and dysuria. Urinalysis suggests probable urinary tract infection. She has chronic anemia and refused blood products in the past because she is Mosque. She has been started on IV iron and IV cefepime. She is afebrile without leukocytosis and urine culture is pending. Blood culture is growing grow gram-positive cocci in clusters in 1/4 bottles. Chest x-ray shows no acute findings. ID now consulted to assist in management. PAST MEDICAL HISTORY: 1. Hypertension. 2. Anemia of chronic disease. 3. Coronary artery disease and congestive heart failure. 4. Sick sinus syndrome. 5. History of stroke. 6. Hyperlipidemia. 7. DVT. PAST SURGICAL HISTORY: 1. Pacemaker placement. 2. Cholecystectomy. 3. Cervical and lumbar spinal surgery. 4. Bilateral total knee replacements. 5. Carotid stent. 6. IVC filter. MEDICATIONS: 1. Cefepime. 2. Procrit. 3. Lipitor. 4. Coreg. 5. Plavix. 6. Aricept. 7. Cozaar. 8. Zoloft. 9. Subcutaneous heparin. ALLERGIES: 1. Latex. 2. Quinine. SOCIAL HISTORY: The patient is Mosque and refuses blood products. No tobacco, alcohol, or illicit drug abuse. FAMILY HISTORY: Noncontributory. REVIEW OF SYSTEMS: As per history of present illness. Ten systems reviewed. All pertinent positives and negatives noted. PHYSICAL EXAMINATION: VITAL SIGNS: Maximum temperature of 98.6 degrees, blood pressure 159/81, heart rate 60s, respiratory rate 18, and saturating 98% on room air. GENERAL: No apparent distress. Nontoxic appearing. HEENT: Poor dentition. CARDIOVASCULAR: Regular rate and rhythm. No murmurs. Pacemaker pocket nonerythematous and nontender. PULMONARY: Clear to auscultation bilaterally. ABDOMEN: Bowel sounds present. Soft, nondistended, and nontender. Harris catheter in place. EXTREMITY: Edema. LABORATORY DATA: White blood cell count 4.8, hemoglobin 7.6, and platelets 200,000. Sodium 141, potassium 3.6, chloride 104, bicarbonate 25, BUN 14, and creatinine 0.6. INR 1.1. Troponin negative x2. BNP 2863 decreased from 3242. Liver function tests within normal limits. MICROBIOLOGY: 1. On 09/28/2016, sacral wound culture pending with a few gram-positive cocci and Gram stain. 2. On 09/27/2016, blood culture, gram-positive cocci in one out of four bottles. 3. On 09/27/2016, influenza screen negative. IMAGING: On 09/27/2016, chest x-ray, no acute findings. ASSESSMENT: 1. Gram-positive cocci in clusters bacteremia in one out of four sets, may be real versus contaminant. Culture and sensitivity is pending. She does have knee and spinal hardware in place, inferior vena cava filter in place, and carotid stent and pacemaker in place. 2. Probable urinary tract infection. No urine culture was sent. 3. Stage II sacral decubitus ulcer, not grossly infected. Surveillance wound culture is pending. 4. Negative influenza. 5. Afebrile without leukocytosis. 6. Symptomatic anemia of chronic disease. The patient is Mosque and refuses blood products. 7. Coronary artery disease and congestive heart failure, status post pacemaker placement. 8. History of deep venous thrombosis status post inferior vena cava filter. 9. No antibiotic allergies. 10. Full Code. PLAN: 1. Continue empiric cefepime day #1 and add IV vancomycin day #1, pending culture and sensitivities. 2. Send delayed urine culture. 3. Follow up blood and wound cultures. 4. Monitor CBC and temperatures. 5. Monitor BMP. Thank you. We will follow. Isidro Toussaint M.D. DR: GATO JOB#: [id number] CC: Zaina Duong M.D. Arash Alborzi, M.D
[2016-09-30 00:05] VITALS: BP 143/98
[2016-09-30 04:09] VITALS: BP 167/87
--- NOTE | 2016-09-30 04:57 | Consultation ---
DATE OF CONSULTATION: 09/29/2016 CARDIOLOGY CONSULTATION Coverage for Dr. Vila. CONSULTING PHYSICIAN: Flor Echevarria M.D. REQUESTING PHYSICIAN: Lobito Jones M.D. REASON FOR CONSULTATION: History of congestive heart failure and ICD placement. HISTORY OF PRESENT ILLNESS: The patient is a 75-year-old, woman with past medical history of cardiomyopathy presumably ischemic, coronary artery disease with remote history of coronary stent placement in 2013, congestive heart failure status post placement of an ICD ([employer]), history of CVA with residual left hemiplegia and expressive aphasia about one year ago. She presented to the emergency room with complaints of weakness and fatigue. She denies chest pain or dyspnea, but did note dizziness at home. She has not had syncope or ICD shocks. She is a fair historian. She complained of dysuria, but no fever, chills, nausea, or vomiting. She has noted episodes of diarrhea with black stool. She was admitted for further treatment. PAST MEDICAL HISTORY: As noted above. Also history of hypertension, history of gastrointestinal bleed with esophageal ulcer noted on upper endoscopy in 2013, history of type 2 diabetes, history of DVT, status post IVC filter placement, and history of carotid stenosis status post carotid stent placement. MEDICATIONS: Epogen 86222 units Sunday, Sunday, and Sunday, vancomycin 1 g IV q.24 hours, cefepime 1 g IV q.24 hours, Lipitor 20 mg at q.h.s., Coreg 3.125 mg p.o. b.i.d., Plavix 75 mg daily, Aricept 5 mg daily, Cozaar 25 mg daily, Zoloft 100 mg daily, subcutaneous heparin 5000 units q.12 hours, insulin sliding scale, DuoNeb q.4 hours p.r.n., Tylenol p.r.n., MiraLAX p.r.n., Zofran p.r.n., and Restoril p.r.n. ALLERGIES: Latex and quinine. SOCIAL HISTORY: The patient is Jehovah Witness. She is a nonsmoker and does not drink alcohol. PHYSICAL EXAMINATION: VITAL SIGNS: Blood pressure is 159/81, pulse 60 regular, respirations 18, and afebrile. GENERAL: The patient is alert, pale appearing, female, in no acute distress. HEENT: Normocephalic and atraumatic. Pupils are equal, round, and reactive to light. Pale conjunctivae. Oral mucosa are moist. NECK: Supple. There is no jugular venous distention. Carotid pulses are 2+ without bruits. LUNGS: Clear to auscultation bilaterally. HEART: Regular S1 and S2 with no murmurs or S3. ABDOMEN: Soft and nontender. No palpable mass. EXTREMITIES: Right calf diameter greater than the left. Trace pedal edema bilaterally. NEUROLOGIC: Expressive aphasia and 0/5 motor of the left lower extremity and 1/5 motor of the left upper extremity. SKIN: Keloids noted over the abdomen. LABORATORY DATA: Sodium 141, potassium 3.6, BUN 14, and creatinine 0.6. Troponin is less than 0.3. Natriuretic peptide is 2863. Hemoglobin 7.6, hematocrit 24, white blood count 5800, and platelets 200,000. INR is 1.1. PTT is 27. Chest x-ray shows cardiomegaly, no infiltrates, or effusions. There is a dual chamber ICD with leads entering from the left to the right atrium and right ventricle. EKG shows an atrially paced rhythm at 60 beats per minute with intact AV conduction. There is poor R-wave progression anteriorly, Q-waves, V1 to V3 and inverted T-waves inferiorly and laterally. Urinalysis shows 3+ occult blood, 3+ leukocyte esterase, 5 to 10 white blood cells, and few bacteria. ASSESSMENT AND RECOMMENDATIONS: The patient is a 75-year-old, woman with multiple chronic medical problems as outlined above, who is admitted with anemia and urinary tract infection. The cause of her anemia is uncertain, however, she does give a history of intermittent diarrhea with black stool. Her iron studies indicate iron deficiency anemia. She has had a previous history of gastrointestinal bleed in the past. I would favor stopping Plavix at this point, pending further assessment of her anemia. She also has a history of congestive heart failure, but does not currently appear volume overloaded. I would favor continuing Coreg and losartan for her ischemic cardiomyopathy. She is not currently having angina although she does have a history of coronary artery disease. Her EKG shows changes consistent with old anterior wall myocardial infarction. The inverted inferolateral T-waves could be repolarization change though cannot rule out ischemia. I would favor checking serial EKGs and troponin levels and we will also obtain an echo. We would continue Lipitor for CAD. We would hold aspirin and other antiplatelet agents for now. She is a Jehovah Witness and will not accept blood products, which will make it difficult to treat her anemia. With regard to her ICD, she does not have any complaints that would suggest recent ventricular arrhythmias. I will arrange for ICD interrogation while she is here. Flor Echevarria M.D. DR: SHANNON JOB#: [id number] CC:
[2016-09-30] MEDS: NovoLOG Insulin Flexpen SUBQ SCH ×4 (06:12→20:40)
--- NOTE | 2016-09-30 07:31 | Pulmonology Progress Note ---
Assessment/Plan Assessment/Plan ASSESSMENT anemia, iron deficiency asthma hx of CVA with L hemiparesis SHF cardiomyopathy HTN DM pacemaker CAD , hx of MT ,s/p stent hx of DVT, s/p IVC filter PLAN OF CARE on tele blood cx 09/13 + SCON, likely contaminant, initial CXR negative empiric abx, fup with cx no evidence of acute exacerbation of asthma O2 HHN prn ECHO with EF 35-50%, RVSP of 28 cardio follows ' pacemaker interrogation done today with normal functioning BP management with BB and ARB ? continue Plavix - per cardio discretion, patient anemic continue EPO check stool OB monitor HH and transfuse prn workup revealed GALILEO, s/p Venofer x 1 PT/OT transfer to [facility] floor if ok with cardio case discussed and evaluated by supervising physician Subjective Allergies: Coded Allergies: LATEX (Unverified Allergy, Mild, Rash, 09/03/14) QUININE (Unverified Allergy, Unknown, Rash Hives, 05/23/15) Quinine Sulfate Subjective denies chest pain, SOB afebrile, no leukocytosis on RA no signs fo respiratory distress Objective Last 24 Hour Vital Signs Date Time Temp Pulse Resp B/P Pulse Ox O2 Delivery O2 Flow Rate FiO2 09/30/16 04:09 97.3 74 20 167/87 97 Room Air 09/30/16 04:00 66 09/30/16 00:05 96.8 66 20 143/98 98 Room Air 09/30/16 00:00 68 09/29/16 20:35 60 18 Room Air 21 09/29/16 20:00 64 09/29/16 20:00 97.7 61 18 153/83 98 Room Air 09/29/16 17:30 60 159/81 09/29/16 16:00 63 09/29/16 16:00 97.7 60 18 159/81 98 Room Air 09/29/16 12:00 98.3 69 20 151/68 98 Room Air 09/29/16 09:50 65 18 Room Air 09/29/16 09:48 67 146/84 09/29/16 09:46 146/84 09/29/16 08:00 60 09/29/16 07:57 98.1 67 18 146/84 98 Room Air Intake and Output 09/29/16 09/30/16 18:59 06:59 Intake Total 423.708 ml 423.708 ml Output Total 1150 ml 500 ml Balance -726.292 ml -76.292 ml Intake Oral 240 ml 240 ml IV Total 183.708 ml 183.708 ml Output Urine Total 1150 ml 500 ml # Voids 3 General Appearance: WD/WN, no acute distress HEENT: normocephalic, atraumatic, anicteric Respiratory/Chest: lungs clear, no respiratory distress, no accessory muscle use, other - L chest pacemaker Cardiovascular: normal peripheral pulses, normal rate - on tele SR A apcing, no JVD Abdomen: normal bowel sounds, soft, non tender, non distended Genitourinary: normal external genitalia Extremities: no edema, pedal pulses normal Neurologic/Psychiatric: alert, responsive, other - L hemiparesis Musculoskeletal: atrophy - BLE Microbiology Date/Time Source Procedure Growth Status 09/27/16 22:20 Blood Blood Culture - Preliminary Resulted 09/27/16 22:10 Blood Blood Culture - Preliminary NO GROWTH AFTER 24 HOURS Resulted 09/28/16 02:00 Wound Gram Stain - Final Resulted 09/28/16 02:00 Wound Culture - Preliminary Gram Negative Deny Resulted 09/27/16 21:58 Nasal Nares Influenza Types A,B Antigen (CARLOS) - Final Complete Current Medications Medications (Trade) Dose Ordered Sig/Don Route PRN Reason Start Time Stop Time Status Last Admin Dose Admin Acetaminophen (Tylenol) 650 mg Q4H PRN ORAL fever 09/27/16 23:00 10/27/16 22:59 Al Hydroxide/Mg Hydroxide (Mylanta II) 30 ml Q6H PRN ORAL dyspepsia 09/27/16 23:00 10/27/16 22:59 Albuterol/ Ipratropium (DuoNeb 0.5-3(2.5)mg/3ml) 3 ml EVERY 4 HOURS PRN HHN Shortness of Breath 09/27/16 23:00 10/02/16 22:59 Atorvastatin Calcium (Lipitor) 20 mg BEDTIME ORAL 09/28/16 21:00 10/28/16 20:59 09/29/16 20:46 Carvedilol (Coreg) 3.125 mg BID ORAL 09/28/16 09:00 10/28/16 08:59 09/29/16 17:30 Cefepime HCl/ Dextrose (Maxipime/D5W) 55 ml @ 110 mls/hr Q24H IV 09/29/16 09:00 10/06/16 08:59 09/29/16 10:00 Dextrose (Dextrose 50%) STAT PRN IV Hypoglycemia 09/27/16 23:00 10/27/16 22:59 Donepezil HCl (Aricept) 5 mg DAILY ORAL 09/28/16 09:00 10/28/16 08:59 09/29/16 09:48 Epoetin Barak 40162 units 10,000 units SUN-SUN-SUN SUBQ 09/29/16 21:00 10/29/16 20:59 09/29/16 21:36 Heparin Sodium (Porcine) (Heparin 5000 units/ml) 5,000 units EVERY 12 HOURS SUBQ 09/28/16 09:00 10/28/16 08:59 09/29/16 20:47 Insulin Aspart (NovoLOG) BEFORE MEALS AND HS SUBQ 09/28/16 06:30 10/28/16 06:29 09/29/16 06:57 Losartan Potassium (Cozaar) 25 mg DAILY ORAL 09/28/16 09:00 10/28/16 08:59 09/29/16 09:46 Nitroglycerin (Ntg) 0.4 mg Q5M PRN SL Prn Chest Pain 09/27/16 23:00 10/27/16 22:59 Ondansetron HCl (Zofran) 4 mg Q6H PRN IVP Nausea & Vomiting 09/27/16 23:00 10/27/16 22:59 Polyethylene Glycol (Miralax) 17 gm DAILYPRN PRN ORAL Constipation 09/27/16 23:00 10/27/16 22:59 Sertraline HCl (Zoloft) 100 mg DAILY ORAL 09/28/16 09:00 10/28/16 08:59 09/29/16 09:47 Temazepam (Restoril) 15 mg HSPRN PRN ORAL Insomnia 09/27/16 23:00 10/04/16 22:59 09/29/16 20:46 Vancomycin HCl 1 ea 1 ea DAILY PRN MISC Per rx protocol 09/29/16 17:00 10/29/16 16:59 Vancomycin HCl/ Dextrose (Vancomycin/D5W) 275 ml @ 183.708 mls/hr Q24H IVPB 09/29/16 18:00 10/04/16 17:59 09/29/16 17:38 Nnamdi ([facility])Nohemi NP Sep 30, 2016 07:31
[2016-09-30 08:00] VITALS: BP_SYST 130; BP_SYST 159; BP_DIAS 45; BP_DIAS 80
[2016-09-30] MEDS: Cefepime HCl 1 GM in D5W 55 ML IV SCH (09:01)
[2016-09-30] MEDS: Losartan 25mg tab ORAL SCH (09:03)
[2016-09-30] MEDS: Sertraline 100mg tab ORAL SCH (09:05)
[2016-09-30] MEDS: Donepezil 5mg Tab ORAL SCH (09:05)
[2016-09-30] MEDS: Heparin 5000 units/ml inj SUBQ SCH ×2 (09:06→20:40)
[2016-09-30 12:00] VITALS: BP 144/60
--- NOTE | 2016-09-30 13:10 | Internal Med Progress Note ---
Subjective Date of Service: Sep 30, 2016 Physician Name Delfin Martinez Attending Physician Lobito Jones MD Current Medications Medications (Trade) Dose Ordered Sig/Don Route PRN Reason Start Time Stop Time Status Last Admin Dose Admin Acetaminophen (Tylenol) 650 mg Q4H PRN ORAL fever 09/27/16 23:00 10/27/16 22:59 Al Hydroxide/Mg Hydroxide (Mylanta II) 30 ml Q6H PRN ORAL dyspepsia 09/27/16 23:00 10/27/16 22:59 Albuterol/ Ipratropium (DuoNeb 0.5-3(2.5)mg/3ml) 3 ml EVERY 4 HOURS PRN HHN Shortness of Breath 09/27/16 23:00 10/02/16 22:59 Atorvastatin Calcium (Lipitor) 20 mg BEDTIME ORAL 09/28/16 21:00 10/28/16 20:59 09/29/16 20:46 Carvedilol (Coreg) 3.125 mg BID ORAL 09/28/16 09:00 10/28/16 08:59 09/30/16 09:04 Cefepime HCl/ Dextrose (Maxipime/D5W) 55 ml @ 110 mls/hr Q24H IV 09/29/16 09:00 10/06/16 08:59 09/30/16 09:01 Dextrose (Dextrose 50%) STAT PRN IV Hypoglycemia 09/27/16 23:00 10/27/16 22:59 Donepezil HCl (Aricept) 5 mg DAILY ORAL 09/28/16 09:00 10/28/16 08:59 09/30/16 09:05 Epoetin Barak 60059 units 10,000 units SUN-WED-SUN SUBQ 09/29/16 21:00 10/29/16 20:59 09/29/16 21:36 Heparin Sodium (Porcine) (Heparin 5000 units/ml) 5,000 units EVERY 12 HOURS SUBQ 09/28/16 09:00 10/28/16 08:59 09/30/16 09:06 Insulin Aspart (NovoLOG) BEFORE MEALS AND HS SUBQ 09/28/16 06:30 10/28/16 06:29 09/29/16 06:57 Losartan Potassium (Cozaar) 25 mg DAILY ORAL 09/28/16 09:00 10/28/16 08:59 09/30/16 09:03 Nitroglycerin (Ntg) 0.4 mg Q5M PRN SL Prn Chest Pain 09/27/16 23:00 10/27/16 22:59 Ondansetron HCl (Zofran) 4 mg Q6H PRN IVP Nausea & Vomiting 09/27/16 23:00 10/27/16 22:59 Polyethylene Glycol (Miralax) 17 gm DAILYPRN PRN ORAL Constipation 09/27/16 23:00 10/27/16 22:59 Sertraline HCl (Zoloft) 100 mg DAILY ORAL 09/28/16 09:00 10/28/16 08:59 09/30/16 09:05 Temazepam (Restoril) 15 mg HSPRN PRN ORAL Insomnia 09/27/16 23:00 10/04/16 22:59 09/29/16 20:46 Vancomycin HCl 1 ea 1 ea DAILY PRN MISC Per rx protocol 09/29/16 17:00 10/29/16 16:59 Vancomycin HCl/ Dextrose (Vancomycin/D5W) 275 ml @ 183.708 mls/hr Q24H IVPB 09/29/16 18:00 10/04/16 17:59 09/29/16 17:38 Allergies: Coded Allergies: LATEX (Unverified Allergy, Mild, Rash, 09/03/14) QUININE (Unverified Allergy, Unknown, Rash Hives, 05/23/15) Quinine Sulfate ROS Limited/Unobtainable: No Constitutional: Reports: no symptoms HEENT: Reports: no symptoms Cardiovascular: Reports: no symptoms Respiratory: Reports: no symptoms Gastrointestinal/Abdominal: Reports: no symptoms Genitourinary: Reports: no symptoms Neurologic/Psychiatric: Reports: no symptoms Subjective 75 YO F admitted with fatigue and severe anemia. Cover for Kaylynn Hager-Dr Jones. Objective Last Vital Signs Date Time Temp Pulse Resp B/P Pulse Ox O2 Delivery O2 Flow Rate FiO2 09/30/16 09:04 80 159/80 09/30/16 08:00 98.2 20 99 Room Air 09/29/16 20:35 21 General Appearance: WD/WN, no apparent distress, alert EENT: PERRL/EOMI, normal ENT inspection Neck: non-tender, normal alignment, supple, normal inspection Cardiovascular: normal peripheral pulses, normal rate, regular rhythm, no gallop/murmur, no JVD Respiratory/Chest: chest wall non-tender, lungs clear, normal breath sounds, no respiratory distress, no accessory muscle use Abdomen: normal bowel sounds, non tender, soft, no organomegaly, no mass Extremities: normal range of motion Neurologic: biological aide II-XII grossly normal, other - left hemiparesis Skin: normal pigmentation, warm/dry Microbiology Date/Time Source Procedure Growth Status 09/27/16 22:20 Blood Blood Culture - Preliminary Resulted 09/27/16 22:10 Blood Blood Culture - Preliminary NO GROWTH AFTER 48 HOURS Resulted 09/28/16 02:00 Wound Gram Stain - Final Resulted 09/28/16 02:00 Wound Culture - Preliminary Gram Negative Deny Resulted 09/27/16 21:58 Nasal Nares Influenza Types A,B Antigen (CARLOS) - Final Complete Intake and Output 09/29/16 09/30/16 19:00 07:00 Intake Total 423.708 ml 423.708 ml Output Total 1150 ml 500 ml Balance -726.292 ml -76.292 ml Intake Oral 240 ml 240 ml IV Total 183.708 ml 183.708 ml Output Urine Total 1150 ml 500 ml # Voids 3 Assessment/Plan Problem List: (1) Fatigue Assessment & Plan: Due to severe anemia (2) Refusal of blood transfusions as patient is Adventism (3) Iron deficiency anemia (4) Anemia Assessment & Plan: Continue erythropoietin (5) Bacteremia Assessment & Plan: 1/ bottles gram pos cocci. See ID note. Cont cefepime and vanco (6) CVA (cerebrovascular accident) (7) Left hemiparesis (8) Pacemaker (9) Sick sinus syndrome Assessment & Plan: S/P pacemaker (10) CAD (coronary artery disease) (11) Hypertension (12) CHF (congestive heart failure) Assessment & Plan: See cardiology note. (13) Diabetes mellitus (14) Hypercholesteremia Status: stable MARTINEZDELFIN Sep 30, 2016 13:10
[2016-09-30] MEDS ORDERED: DuoNeb 0.5-3(2.5)mg/3ml neb HHN PRN (14:00)
--- NOTE | 2016-09-30 15:18 | Cardiology Progress Note ---
Assessment/Plan Status: stable, progressing Status Narrative Pt w/ fe deficiency anemia - uncertain if gi bleed. She has hx of carotid disease, s/p stent, and CAD, with no recent CP. Also hx of chf and sss/s/p dual chamber icd ([employer]) The ICD was interrogated today- normal function. There have been no ventricular arrhythmias detected or treated. The device has 5.5 yrs of service remaining. Sensing is 1.3 mv in the atr, 4. 1mv in the ventricle. Pacing thresholds are 0.6 v/ 0.4 ms in the atrium and 0.7 v/ 0.4 ms in the ventricle. imedances are 499, 437 and 50 ohm for rt atrium, rt ventricle, and high volgage leads ,respectively. Assessment/Plan Continue off antiplt agents, in view of possible gi bleed , low h/h and pt jehovah witness, refusing transfusion. check stool guiacs. ? gi evaluation. Continue b blockers, statin for CAD, and lotensin for afterload reduction/cm Subjective ROS Limited/Unobtainable: No Subjective Mrs. Garcia is alert. She c/o upper abd discomfort. BM x2 today. Also c/o L hand pain Fair historian Objective Last 24 Hour Vital Signs Date Time Temp Pulse Resp B/P Pulse Ox O2 Delivery O2 Flow Rate FiO2 09/30/16 12:00 66 09/30/16 12:00 98.2 65 20 144/60 100 Room Air 09/30/16 09:04 80 159/80 09/30/16 09:03 159/80 09/30/16 08:00 98.2 85 20 130/45 99 Room Air 09/30/16 08:00 97.7 68 20 159/80 99 Room Air 09/30/16 08:00 69 09/30/16 07:20 76 20 Room Air 09/30/16 04:09 97.3 74 20 167/87 97 Room Air 09/30/16 04:00 66 09/30/16 00:05 96.8 66 20 143/98 98 Room Air 09/30/16 00:00 68 09/29/16 20:35 60 18 Room Air 21 09/29/16 20:00 64 09/29/16 20:00 97.7 61 18 153/83 98 Room Air 09/29/16 17:30 60 159/81 09/29/16 16:00 63 09/29/16 16:00 97.7 60 18 159/81 98 Room Air General Appearance: WD/WN, no apparent distress, alert, other - pale EENT: PERRL/EOMI, pale conjunctivae Neck: supple, no JVD Rhythm: NSR Cardiovascular: normal rate, regular rhythm, no gallop/murmur Respiratory/Chest: lungs clear Abdomen: normal bowel sounds, non tender, soft Extremities: no swelling Intake and Output 09/29/16 09/30/16 19:00 07:00 Intake Total 423.708 ml 423.708 ml Output Total 1150 ml 500 ml Balance -726.292 ml -76.292 ml Intake Oral 240 ml 240 ml IV Total 183.708 ml 183.708 ml Output Urine Total 1150 ml 500 ml # Voids 3 Microbiology Date/Time Source Procedure Growth Status 09/27/16 22:20 Blood Blood Culture - Preliminary Resulted 09/27/16 22:10 Blood Blood Culture - Preliminary NO GROWTH AFTER 48 HOURS Resulted 09/28/16 02:00 Wound Gram Stain - Final Resulted 09/28/16 02:00 Wound Culture - Preliminary Gram Negative Deny Resulted 09/27/16 21:58 Nasal Nares Influenza Types A,B Antigen (CARLOS) - Final Complete CLAIR MAHAN Sep 30, 2016 15:18
[2016-09-30 16:00] VITALS: BP 138/81
--- NOTE | 2016-09-30 16:43 | Infectious Diseases Prog Note ---
Assessment/Plan Assessment/Plan ASSESSMENT: 75 y/o female with: // GPC clusters bacteremia 09/13 - real vs contaminant. C&S pending - knee, spinal hardware, IVC filter, carotid stent, PPM in place // Probable UTI - UCx not sent // Stage II sacral decubitus ulcer, not grossly infected - surveillance WCx pending // Negative influenza // Afebrile without leukocytosis // Symptomatic anemia of chronic disease - Confucianism, refuses blood products // CAD / CHF SP PPM // h/o DVT SP IVC filter // No ABX allergies // Full Code PLAN: - continue empiric cefepime and IV vancomycin d# 2 - send delayed UCx - f/u cultures - monitor CBC, temperatures - monitor BMP Subjective Constitutional: Denies: anorexia, chills, drenching sweats, fatigue, fever, no symptoms, other Allergies: Coded Allergies: LATEX (Unverified Allergy, Mild, Rash, 09/03/14) QUININE (Unverified Allergy, Unknown, Rash Hives, 05/23/15) Quinine Sulfate Objective Vital Signs Last 24 Hour Vital Signs Date Time Temp Pulse Resp B/P Pulse Ox O2 Delivery O2 Flow Rate FiO2 09/30/16 12:00 66 09/30/16 12:00 98.2 65 20 144/60 100 Room Air 09/30/16 09:04 80 159/80 09/30/16 09:03 159/80 09/30/16 08:00 98.2 85 20 130/45 99 Room Air 09/30/16 08:00 97.7 68 20 159/80 99 Room Air 09/30/16 08:00 69 09/30/16 07:20 76 20 Room Air 09/30/16 04:09 97.3 74 20 167/87 97 Room Air 09/30/16 04:00 66 09/30/16 00:05 96.8 66 20 143/98 98 Room Air 09/30/16 00:00 68 09/29/16 20:35 60 18 Room Air 21 09/29/16 20:00 64 09/29/16 20:00 97.7 61 18 153/83 98 Room Air 09/29/16 17:30 60 159/81 Height (Feet): 5 Height (Inches): 4.00 Weight (Pounds): 140 HEENT: mucous membranes moist Respiratory/Chest: no respiratory distress Abdomen: no mass Microbiology Date/Time Source Procedure Growth Status 09/27/16 22:20 Blood Blood Culture - Preliminary Resulted 09/27/16 22:10 Blood Blood Culture - Preliminary NO GROWTH AFTER 48 HOURS Resulted 09/28/16 02:00 Wound Gram Stain - Final Resulted 09/28/16 02:00 Wound Culture - Preliminary Gram Negative Deny Resulted 09/27/16 21:58 Nasal Nares Influenza Types A,B Antigen (CARLOS) - Final Complete Current Medications Medications (Trade) Dose Ordered Sig/Don Route PRN Reason Start Time Stop Time Status Last Admin Dose Admin Acetaminophen (Tylenol) 650 mg Q4H PRN ORAL fever 09/27/16 23:00 10/27/16 22:59 Al Hydroxide/Mg Hydroxide (Mylanta II) 30 ml Q6H PRN ORAL dyspepsia 09/27/16 23:00 10/27/16 22:59 Albuterol/ Ipratropium (DuoNeb 0.5-3(2.5)mg/3ml) 3 ml Q4H PRN HHN Shortness of Breath 09/30/16 14:00 10/05/16 13:59 Atorvastatin Calcium (Lipitor) 20 mg BEDTIME ORAL 09/28/16 21:00 10/28/16 20:59 09/29/16 20:46 Carvedilol (Coreg) 3.125 mg BID ORAL 09/28/16 09:00 10/28/16 08:59 09/30/16 09:04 Cefepime HCl/ Dextrose (Maxipime/D5W) 55 ml @ 110 mls/hr Q24H IV 09/29/16 09:00 10/06/16 08:59 09/30/16 09:01 Dextrose (Dextrose 50%) STAT PRN IV Hypoglycemia 09/27/16 23:00 10/27/16 22:59 Donepezil HCl (Aricept) 5 mg DAILY ORAL 09/28/16 09:00 10/28/16 08:59 09/30/16 09:05 Epoetin Barak 34776 units 10,000 units SUN-WED-SUN SUBQ 09/29/16 21:00 10/29/16 20:59 09/29/16 21:36 Heparin Sodium (Porcine) (Heparin 5000 units/ml) 5,000 units EVERY 12 HOURS SUBQ 09/28/16 09:00 10/28/16 08:59 09/30/16 09:06 Insulin Aspart (NovoLOG) BEFORE MEALS AND HS SUBQ 09/28/16 06:30 10/28/16 06:29 09/29/16 06:57 Losartan Potassium (Cozaar) 25 mg DAILY ORAL 09/28/16 09:00 10/28/16 08:59 09/30/16 09:03 Nitroglycerin (Ntg) 0.4 mg Q5M PRN SL Prn Chest Pain 09/27/16 23:00 10/27/16 22:59 Ondansetron HCl (Zofran) 4 mg Q6H PRN IVP Nausea & Vomiting 09/27/16 23:00 10/27/16 22:59 Polyethylene Glycol (Miralax) 17 gm DAILYPRN PRN ORAL Constipation 09/27/16 23:00 10/27/16 22:59 Sertraline HCl (Zoloft) 100 mg DAILY ORAL 09/28/16 09:00 10/28/16 08:59 09/30/16 09:05 Temazepam (Restoril) 15 mg HSPRN PRN ORAL Insomnia 09/27/16 23:00 10/04/16 22:59 09/29/16 20:46 Vancomycin HCl 1 ea 1 ea DAILY PRN MISC Per rx protocol 09/29/16 17:00 10/29/16 16:59 Vancomycin HCl/ Dextrose (Vancomycin/D5W) 275 ml @ 183.708 mls/hr Q24H IVPB 09/29/16 18:00 10/04/16 17:59 09/29/16 17:38 ANOOP REVELES M.D. Sep 30, 2016 16:43
[2016-09-30] MEDS: Vancomycin 1gm in D5W 275ml IVPB SCH (17:20)
[2016-09-30 20:00] VITALS: BP 167/87
[2016-10-01] VITALS: BP 139/69
[2016-10-01 04:00] VITALS: BP 153/88
[2016-10-01] MEDS: NovoLOG Insulin Flexpen SUBQ SCH ×4 (06:30→21:00)
[2016-10-01 08:00] VITALS: BP 150/69
[2016-10-01 08:15] LABS: MEAN CORPUSCULAR HEMOGLOBIN 28.5 PG (27.0-31.0); MEAN CORPUSCULAR HGB CONC 30.5 G/DL (32.0-36.0); MEAN CORPUSCULAR VOLUME 94 FL (80-99); MEAN PLATELET VOLUME 6.5 FL (6.5-10.1); PLATELET COUNT 242 K/UL (150-450); RED BLOOD COUNT 2.54 M/UL (4.20-5.40); RED CELL DISTRIBUTION WIDTH 15.8 % (11.6-14.8); WHITE BLOOD COUNT 5.9 K/UL (4.8-10.8)
[2016-10-01 08:43] LABS: ANION GAP 13 (5-15); CALCIUM 8.8 mg/dL (8.6-10.2); CARBON DIOXIDE 25 mEQ/L (20-30); CHLORIDE 102 mEQ/L (98-107); CREATININE 0.4 mg/dL (0.5-0.9); HEMOLYSIS 4; POTASSIUM 3.8 mEQ/L (3.4-4.9); SODIUM 140 mEQ/L (135-145)
[2016-10-01] MEDS: Heparin 5000 units/ml inj SUBQ SCH ×2 (09:00→21:00)
[2016-10-01] MEDS: Donepezil 5mg Tab ORAL SCH (10:05)
[2016-10-01] MEDS: Cefepime HCl 1 GM in D5W 55 ML IV SCH (10:05)
[2016-10-01] MEDS: Losartan 25mg tab ORAL SCH (10:05)
[2016-10-01] MEDS: Sertraline 100mg tab ORAL SCH (10:05)
[2016-10-01 10:33] LABS: ANISOCYTOSIS 1+; BAND NEUTROPHILS % (MANUAL) 0 % (0-8); BASOPHILS % (MANUAL) 0 % (0-2); EOSINOPHILS % (MANUAL) 3 % (0-3); HYPOCHROMASIA 1+; LYMPHOCYTES % (MANUAL) 19 % (20-45); NEUTROPHILS % (MANUAL) 69 % (45-75); PLATELET ESTIMATE ADEQUATE; PLATELET MORPHOLOGY NORMAL; TOTAL CELLS COUNTED 100
[2016-10-01 12:00] VITALS: BP 148/94
--- NOTE | 2016-10-01 13:18 | Cardiology Progress Note ---
Assessment/Plan Status: stable, unchanged Status Narrative Pt w/ fe deficiency anemia - uncertain if gi bleed. Hg has decreased slightly today. She has hx of carotid disease, s/p stent, and CAD, with no recent CP. Also hx of chf and sss/s/p dual chamber icd ([employer]) The ICD was checked 09/30 - normal function. Assessment/Plan Continue off antiplt agents, in view of possible gi bleed , low h/h and pt jehovah witness, refusing transfusion. She is on epogen Stool guiacs are pending. ? start Fe ? folate, as irone studies c/w Fe deficiency ? gi evaluation. Start ppi Continue b blockers, statin for CAD, and lotensin for afterload reduction/cm. Titrate based on bp response. ECHO this adm to assess LV function. Subjective ROS Limited/Unobtainable: No Subjective Mrs. Garcia is sedated. No c/o pain, dyspnea Objective Last 24 Hour Vital Signs Date Time Temp Pulse Resp B/P Pulse Ox O2 Delivery O2 Flow Rate FiO2 10/01/16 10:05 150/69 10/01/16 10:05 69 150/69 10/01/16 09:42 69 18 Room Air 10/01/16 08:00 84 10/01/16 08:00 96.9 96 18 150/69 96 Room Air 10/01/16 04:00 96.4 70 19 153/88 100 Room Air 10/01/16 04:00 63 10/01/16 00:00 96.8 64 18 139/69 100 Room Air 10/01/16 00:00 63 09/30/16 20:19 65 20 Room Air 09/30/16 20:00 60 09/30/16 20:00 97.6 61 20 167/87 97 Room Air 09/30/16 17:19 65 138/81 09/30/16 16:00 63 09/30/16 16:00 97.8 65 21 138/81 97 Room Air General Appearance: WD/WN, no apparent distress EENT: pale conjunctivae Neck: supple, no JVD Rhythm: NSR Cardiovascular: normal rate, systolic murmur, other - i v/i GRISEL LUSB Respiratory/Chest: lungs clear - clear anteriorly Abdomen: non tender, soft, no mass Extremities: no swelling Intake and Output 09/30/16 10/01/16 19:00 07:00 Intake Total 175 ml 610 ml Balance 175 ml 610 ml Intake Oral 120 ml 335 ml IV Total 55 ml 275 ml # Voids 4 # Bowel Movements 1 Laboratory Tests Test 10/01/16 07:00 White Blood Count 5.9 K/UL (4.8-10.8) Red Blood Count 2.54 M/UL (4.20-5.40) L Hemoglobin 7.2 G/DL (12.0-16.0) L Hematocrit 23.8 % (37.0-47.0) L Mean Corpuscular Volume 94 FL (80-99) Mean Corpuscular Hemoglobin 28.5 PG (27.0-31.0) Mean Corpuscular Hemoglobin Concent 30.5 G/DL (32.0-36.0) L Red Cell Distribution Width 15.8 % (11.6-14.8) H Platelet Count 242 K/UL (150-450) Mean Platelet Volume 6.5 FL (6.5-10.1) Neutrophils (%) (Auto) % (45.0-75.0) Lymphocytes (%) (Auto) % (20.0-45.0) Monocytes (%) (Auto) % (1.0-10.0) Eosinophils (%) (Auto) % (0.0-3.0) Basophils (%) (Auto) % (0.0-2.0) Differential Total Cells Counted 100 Neutrophils % (Manual) 69 % (45-75) Lymphocytes % (Manual) 19 % (20-45) L Monocytes % (Manual) 9 % (1-10) Eosinophils % (Manual) 3 % (0-3) Basophils % (Manual) 0 % (0-2) Band Neutrophils 0 % (0-8) Platelet Estimate Adequate Platelet Morphology Normal Hypochromasia 1+ Anisocytosis 1+ Sodium Level 140 mEQ/L (135-145) Potassium Level 3.8 mEQ/L (3.4-4.9) Chloride Level 102 mEQ/L (98-107) Carbon Dioxide Level 25 mEQ/L (20-30) Anion Gap 13 (5-15) Blood Urea Nitrogen 12 mg/dL (7-23) Creatinine 0.4 mg/dL (0.5-0.9) L Estimat Glomerular Filtration Rate mL/min (>60) Glucose Level 91 mg/dL (74-106) Calcium Level 8.8 mg/dL (8.6-10.2) Microbiology Date/Time Source Procedure Growth Status 09/29/16 23:00 Indwelling Cath Urine Culture - Preliminary NO GROWTH Resulted CLAIR MAHAN Oct 01, 2016 13:18
--- NOTE | 2016-10-01 14:33 | Pulmonology Progress Note ---
Assessment/Plan Assessment/Plan ASSESSMENT anemia, iron deficiency asthma hx of CVA with L hemiparesis SHF cardiomyopathy HTN DM pacemaker CAD , hx of SC ,s/p stent hx of DVT, s/p IVC filter PLAN OF CARE blood cx 09/13 + SCON, likely contaminant, initial CXR negative abx, ID follows no evidence of acute exacerbation of asthma O2 HHN prn ECHO with EF 35-50%, RVSP of 28 cardio follows ' pacemaker interrogation done 09/30 with normal functioning BP management with BB and ARB continue off Plavix - patient anemic , declining blood transfusion, Jehovah witness continue EPO check stool OB x2 monitor HH patient declined Jehovah witness workup revealed GALILEO, start venofer x 3 more days , check B12, folate, ferritin GI consult as per PMD discretion PT/OT transfer to [facility] floor if ok with cardio case discussed and evaluated by supervising physician Subjective Allergies: Coded Allergies: LATEX (Unverified Allergy, Mild, Rash, 09/03/14) QUININE (Unverified Allergy, Unknown, Rash Hives, 05/23/15) Quinine Sulfate Subjective denies chest pain, SOB afebrile, no leukocytosis on RA no signs fo respiratory distress HH trending down Objective Last 24 Hour Vital Signs Date Time Temp Pulse Resp B/P Pulse Ox O2 Delivery O2 Flow Rate FiO2 10/01/16 12:00 78 10/01/16 12:00 96.4 82 18 148/94 95 Room Air 10/01/16 10:05 150/69 10/01/16 10:05 69 150/69 10/01/16 09:42 69 18 Room Air 10/01/16 08:00 84 10/01/16 08:00 96.9 96 18 150/69 96 Room Air 10/01/16 04:00 96.4 70 19 153/88 100 Room Air 10/01/16 04:00 63 10/01/16 00:00 96.8 64 18 139/69 100 Room Air 10/01/16 00:00 63 09/30/16 20:19 65 20 Room Air 09/30/16 20:00 60 09/30/16 20:00 97.6 61 20 167/87 97 Room Air 09/30/16 17:19 65 138/81 09/30/16 16:00 63 09/30/16 16:00 97.8 65 21 138/81 97 Room Air Intake and Output 09/30/16 10/01/16 18:59 06:59 Intake Total 175 ml 610 ml Balance 175 ml 610 ml Intake Oral 120 ml 335 ml IV Total 55 ml 275 ml # Voids 4 # Bowel Movements 1 Objective General Appearance: WD/WN, no acute distress HEENT: normocephalic, atraumatic, anicteric Respiratory/Chest: lungs clear, no respiratory distress, no accessory muscle use, other - L chest pacemaker Cardiovascular: normal peripheral pulses, normal rate - on tele SR A apcing, no JVD Abdomen: normal bowel sounds, soft, non tender, non distended Genitourinary: normal external genitalia Extremities: no edema, pedal pulses normal Neurologic/Psychiatric: alert, responsive, other - L hemiparesis Musculoskeletal: atrophy - BLE Microbiology Date/Time Source Procedure Growth Status 09/29/16 23:00 Indwelling Cath Urine Culture - Preliminary NO GROWTH Resulted Laboratory Tests 10/01/16 07:00: White Blood Count 5.9, Red Blood Count 2.54L, Hemoglobin 7.2L, Hematocrit 23.8L , Mean Corpuscular Volume 94, Mean Corpuscular Hemoglobin 28.5, Mean Corpuscular Hemoglobin Concent 30.5L, Red Cell Distribution Width 15.8H, Platelet Count 242, Mean Platelet Volume 6.5, Neutrophils (%) (Auto) , Lymphocytes (%) (Auto) , Monocytes (%) (Auto) , Eosinophils (%) (Auto) , Basophils (%) (Auto) , Differential Total Cells Counted 100, Neutrophils % ( Manual) 69, Lymphocytes % (Manual) 19L, Monocytes % (Manual) 9, Eosinophils % ( Manual) 3, Basophils % (Manual) 0, Band Neutrophils 0, Platelet Estimate Adequate, Platelet Morphology Normal, Hypochromasia 1+, Anisocytosis 1+, Sodium Level 140, Potassium Level 3.8, Chloride Level 102, Carbon Dioxide Level 25, Anion Gap 13, Blood Urea Nitrogen 12, Creatinine 0.4L, Estimat Glomerular Filtration Rate , Glucose Level 91, Calcium Level 8.8 Current Medications Medications (Trade) Dose Ordered Sig/Don Route PRN Reason Start Time Stop Time Status Last Admin Dose Admin Acetaminophen (Tylenol) 650 mg Q4H PRN ORAL fever 09/27/16 23:00 10/27/16 22:59 Al Hydroxide/Mg Hydroxide (Mylanta II) 30 ml Q6H PRN ORAL dyspepsia 09/27/16 23:00 10/27/16 22:59 Albuterol/ Ipratropium (DuoNeb 0.5-3(2.5)mg/3ml) 3 ml Q4H PRN HHN Shortness of Breath 09/30/16 14:00 10/05/16 13:59 Atorvastatin Calcium (Lipitor) 20 mg BEDTIME ORAL 09/28/16 21:00 10/28/16 20:59 09/30/16 20:36 Carvedilol (Coreg) 3.125 mg BID ORAL 09/28/16 09:00 10/28/16 08:59 10/01/16 10:05 Cefepime HCl/ Dextrose (Maxipime/D5W) 55 ml @ 110 mls/hr Q24H IV 09/29/16 09:00 10/06/16 08:59 10/01/16 10:05 Dextrose (Dextrose 50%) STAT PRN IV Hypoglycemia 09/27/16 23:00 10/27/16 22:59 Donepezil HCl (Aricept) 5 mg DAILY ORAL 09/28/16 09:00 10/28/16 08:59 10/01/16 10:05 Epoetin Barak 39136 units 10,000 units SUN-SUN-SUN SUBQ 09/29/16 21:00 10/29/16 20:59 09/29/16 21:36 Heparin Sodium (Porcine) (Heparin 5000 units/ml) 5,000 units EVERY 12 HOURS SUBQ 09/28/16 09:00 10/28/16 08:59 09/30/16 09:06 Insulin Aspart (NovoLOG) BEFORE MEALS AND HS SUBQ 09/28/16 06:30 10/28/16 06:29 09/29/16 06:57 Losartan Potassium (Cozaar) 25 mg TWICE A DAY ORAL 10/01/16 18:00 10/31/16 17:59 Nitroglycerin (Ntg) 0.4 mg Q5M PRN SL Prn Chest Pain 09/27/16 23:00 10/27/16 22:59 Ondansetron HCl (Zofran) 4 mg Q6H PRN IVP Nausea & Vomiting 09/27/16 23:00 10/27/16 22:59 Pantoprazole (Protonix) 40 mg DAILY ORAL 10/02/16 09:00 11/01/16 08:59 Polyethylene Glycol (Miralax) 17 gm DAILYPRN PRN ORAL Constipation 09/27/16 23:00 10/27/16 22:59 Sertraline HCl (Zoloft) 100 mg DAILY ORAL 09/28/16 09:00 10/28/16 08:59 10/01/16 10:05 Temazepam (Restoril) 15 mg HSPRN PRN ORAL Insomnia 09/27/16 23:00 10/04/16 22:59 10/01/16 00:39 Vancomycin HCl 1 ea 1 ea DAILY PRN MISC Per rx protocol 09/29/16 17:00 10/29/16 16:59 Vancomycin HCl/ Dextrose (Vancomycin/D5W) 275 ml @ 183.708 mls/hr Q24H IVPB 09/29/16 18:00 10/04/16 17:59 09/30/16 17:20 Nnamdi (Rafi)Nohemi NP Oct 01, 2016 14:33
[2016-10-01 15:07] LABS: FERRITIN 163 ng/mL (13-150)
[2016-10-01 16:00] VITALS: BP 153/79
--- NOTE | 2016-10-01 16:30 | Internal Med Progress Note ---
Subjective Date of Service: Oct 01, 2016 Physician Name Delfin Martinez Attending Physician Lobito Jones MD Current Medications Medications (Trade) Dose Ordered Sig/Don Route PRN Reason Start Time Stop Time Status Last Admin Dose Admin Acetaminophen (Tylenol) 650 mg Q4H PRN ORAL fever 09/27/16 23:00 10/27/16 22:59 Al Hydroxide/Mg Hydroxide (Mylanta II) 30 ml Q6H PRN ORAL dyspepsia 09/27/16 23:00 10/27/16 22:59 Albuterol/ Ipratropium (DuoNeb 0.5-3(2.5)mg/3ml) 3 ml Q4H PRN HHN Shortness of Breath 09/30/16 14:00 10/05/16 13:59 Atorvastatin Calcium (Lipitor) 20 mg BEDTIME ORAL 09/28/16 21:00 10/28/16 20:59 09/30/16 20:36 Carvedilol (Coreg) 3.125 mg BID ORAL 09/28/16 09:00 10/28/16 08:59 10/01/16 10:05 Cefepime HCl/ Dextrose (Maxipime/D5W) 55 ml @ 110 mls/hr Q24H IV 09/29/16 09:00 10/06/16 08:59 10/01/16 10:05 Dextrose (Dextrose 50%) STAT PRN IV Hypoglycemia 09/27/16 23:00 10/27/16 22:59 Donepezil HCl (Aricept) 5 mg DAILY ORAL 09/28/16 09:00 10/28/16 08:59 10/01/16 10:05 Epoetin Barak 79806 units 10,000 units SUN-WED-SUN SUBQ 09/29/16 21:00 10/29/16 20:59 09/29/16 21:36 Heparin Sodium (Porcine) (Heparin 5000 units/ml) 5,000 units EVERY 12 HOURS SUBQ 09/28/16 09:00 10/28/16 08:59 09/30/16 09:06 Insulin Aspart (NovoLOG) BEFORE MEALS AND HS SUBQ 09/28/16 06:30 10/28/16 06:29 09/29/16 06:57 Iron Sucrose/ Sodium Chloride (Venofer/Sodium Chloride) 115 ml @ 460 mls/hr BEDTIME IVPB 10/01/16 21:00 10/03/16 21:14 Losartan Potassium 25 mg 25 mg TWICE A DAY ORAL 10/01/16 18:00 10/31/16 17:59 Nitroglycerin (Ntg) 0.4 mg Q5M PRN SL Prn Chest Pain 09/27/16 23:00 10/27/16 22:59 Ondansetron HCl (Zofran) 4 mg Q6H PRN IVP Nausea & Vomiting 09/27/16 23:00 10/27/16 22:59 Pantoprazole (Protonix) 40 mg DAILY ORAL 10/02/16 09:00 11/01/16 08:59 Polyethylene Glycol (Miralax) 17 gm DAILYPRN PRN ORAL Constipation 09/27/16 23:00 10/27/16 22:59 Sertraline HCl (Zoloft) 100 mg DAILY ORAL 09/28/16 09:00 10/28/16 08:59 10/01/16 10:05 Temazepam (Restoril) 15 mg HSPRN PRN ORAL Insomnia 09/27/16 23:00 10/04/16 22:59 10/01/16 00:39 Vancomycin HCl 1 ea 1 ea DAILY PRN MISC Per rx protocol 09/29/16 17:00 10/29/16 16:59 Vancomycin HCl/ Dextrose (Vancomycin/D5W) 275 ml @ 183.708 mls/hr Q24H IVPB 09/29/16 18:00 10/04/16 17:59 09/30/16 17:20 Allergies: Coded Allergies: LATEX (Unverified Allergy, Mild, Rash, 09/03/14) QUININE (Unverified Allergy, Unknown, Rash Hives, 05/23/15) Quinine Sulfate ROS Limited/Unobtainable: No Constitutional: Reports: no symptoms HEENT: Reports: no symptoms Cardiovascular: Reports: no symptoms Respiratory: Reports: no symptoms Gastrointestinal/Abdominal: Reports: no symptoms Genitourinary: Reports: no symptoms Neurologic/Psychiatric: Reports: no symptoms Subjective 75 YO F admitted with fatigue and severe anemia. Cover for Int Madan-Dr Jones. Objective Last Vital Signs Date Time Temp Pulse Resp B/P Pulse Ox O2 Delivery O2 Flow Rate FiO2 10/01/16 16:00 97.8 72 19 153/79 98 Room Air 09/29/16 20:35 21 Laboratory Tests Test 10/01/16 07:00 White Blood Count 5.9 K/UL (4.8-10.8) Red Blood Count 2.54 M/UL (4.20-5.40) L Hemoglobin 7.2 G/DL (12.0-16.0) L Hematocrit 23.8 % (37.0-47.0) L Mean Corpuscular Volume 94 FL (80-99) Mean Corpuscular Hemoglobin 28.5 PG (27.0-31.0) Mean Corpuscular Hemoglobin Concent 30.5 G/DL (32.0-36.0) L Red Cell Distribution Width 15.8 % (11.6-14.8) H Platelet Count 242 K/UL (150-450) Mean Platelet Volume 6.5 FL (6.5-10.1) Neutrophils (%) (Auto) % (45.0-75.0) Lymphocytes (%) (Auto) % (20.0-45.0) Monocytes (%) (Auto) % (1.0-10.0) Eosinophils (%) (Auto) % (0.0-3.0) Basophils (%) (Auto) % (0.0-2.0) Differential Total Cells Counted 100 Neutrophils % (Manual) 69 % (45-75) Lymphocytes % (Manual) 19 % (20-45) L Monocytes % (Manual) 9 % (1-10) Eosinophils % (Manual) 3 % (0-3) Basophils % (Manual) 0 % (0-2) Band Neutrophils 0 % (0-8) Platelet Estimate Adequate Platelet Morphology Normal Hypochromasia 1+ Anisocytosis 1+ Sodium Level 140 mEQ/L (135-145) Potassium Level 3.8 mEQ/L (3.4-4.9) Chloride Level 102 mEQ/L (98-107) Carbon Dioxide Level 25 mEQ/L (20-30) Anion Gap 13 (5-15) Blood Urea Nitrogen 12 mg/dL (7-23) Creatinine 0.4 mg/dL (0.5-0.9) L Estimat Glomerular Filtration Rate mL/min (>60) Glucose Level 91 mg/dL (74-106) Calcium Level 8.8 mg/dL (8.6-10.2) Ferritin 163 ng/mL (13-150) H Vitamin B12 Level 333 pg/mL (211-946) Folate Pending Microbiology Date/Time Source Procedure Growth Status 09/29/16 23:00 Indwelling Cath Urine Culture - Preliminary NO GROWTH Resulted Intake and Output 09/30/16 10/01/16 19:00 07:00 Intake Total 175 ml 610 ml Balance 175 ml 610 ml Intake Oral 120 ml 335 ml IV Total 55 ml 275 ml # Voids 4 # Bowel Movements 1 Objective General Appearance: WD/WN, no apparent distress, alert EENT: PERRL/EOMI, normal ENT inspection Neck: non-tender, normal alignment, supple, normal inspection Cardiovascular: normal peripheral pulses, normal rate, regular rhythm, no gallop/murmur, no JVD Respiratory/Chest: chest wall non-tender, lungs clear, normal breath sounds, no respiratory distress, no accessory muscle use Abdomen: normal bowel sounds, non tender, soft, no organomegaly, no mass Extremities: normal range of motion 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 See ID note. Cont cefepime and vanco (6) CVA (cerebrovascular accident) (7) Left hemiparesis (8) Pacemaker (9) Sick sinus syndrome Assessment & Plan: S/P pacemaker (10) CAD (coronary artery disease) (11) Hypertension (12) CHF (congestive heart failure) Assessment & Plan: See cardiology note. (13) Diabetes mellitus (14) Hypercholesteremia Status: progressing Assessment/Plan D/C tele per cardiology DELFIN MARTINEZ Oct 01, 2016 16:30
[2016-10-01] MEDS: Vancomycin 1gm in D5W 275ml IVPB SCH (17:55)
[2016-10-01] MEDS ORDERED: Losartan 25mg tab ORAL SCH (18:00)
[2016-10-01 20:00] VITALS: BP 151/77
[2016-10-01] MEDS ORDERED: Iron Sucrose 100 MG in NS 110 ML IVPB SCH (21:00)
[2016-10-02] VITALS: BP 157/79
[2016-10-02] MEDS ORDERED: Nitroglycerin Subl 0.4mg tab (Bottle Of 25) SL PRN (01:30)
[2016-10-02] MEDS ORDERED: DuoNeb 0.5-3(2.5)mg/3ml neb HHN PRN (02:00)
[2016-10-02 04:00] VITALS: BP 123/81
[2016-10-02] MEDS ORDERED: Mylanta II UD 30ml ORAL PRN (05:00)
[2016-10-02] MEDS ORDERED: Vancomycin 750mg/D5W 275ml IVPB SCH ×2 (06:00)
[2016-10-02] MEDS ORDERED: Vancomycin 750 MG in D5W 275 ML IVPB SCH (06:00)
[2016-10-02] MEDS: NovoLOG Insulin Flexpen SUBQ SCH ×3 (06:30→16:30)
[2016-10-02 07:04] LABS: BASOPHILS % (AUTO) 0.5 % (0.0-2.0); EOSINOPHILS % (AUTO) 6.4 % (0.0-3.0); LYMPHOCYTES % (AUTO) 19.6 % (20.0-45.0); MEAN CORPUSCULAR HEMOGLOBIN 28.9 PG (27.0-31.0); MEAN CORPUSCULAR HGB CONC 31.2 G/DL (32.0-36.0); MEAN CORPUSCULAR VOLUME 93 FL (80-99); MONOCYTES % (AUTO) 8.9 % (1.0-10.0); NEUTROPHILS % (AUTO) 64.7 % (45.0-75.0); PLATELET COUNT 257 K/UL (150-450); RED BLOOD COUNT 2.79 M/UL (4.20-5.40); RED CELL DISTRIBUTION WIDTH 16.2 % (11.6-14.8); WHITE BLOOD COUNT 7.2 K/UL (4.8-10.8)
[2016-10-02 07:22] LABS: ANION GAP 15 (5-15); CARBON DIOXIDE 24 mEQ/L (20-30); CHLORIDE 101 mEQ/L (98-107); CREATININE 0.7 mg/dL (0.5-0.9); HEMOLYSIS 4; POTASSIUM 3.8 mEQ/L (3.4-4.9); SODIUM 140 mEQ/L (135-145)
[2016-10-02 08:59] VITALS: BP 164/78
[2016-10-02] MEDS ORDERED: Sertraline 100mg tab ORAL SCH (09:00)
[2016-10-02] MEDS ORDERED: Heparin 5000 units/ml inj SUBQ SCH (09:00)
[2016-10-02] MEDS ORDERED: Donepezil 5mg Tab ORAL SCH (09:00)
[2016-10-02] MEDS ORDERED: Cefepime HCl 1 GM in D5W 55 ML IV SCH (09:00)
[2016-10-02] MEDS: Losartan 25mg tab ORAL SCH ×2 (09:06→18:00)
--- NOTE | 2016-10-02 09:29 | Infectious Diseases Prog Note ---
Assessment/Plan Assessment/Plan ASSESSMENT: 75 y/o female with: // G+ve BlCx: CONS contaminant. - knee, spinal hardware, IVC filter, carotid stent, PPM in place // Probable UTI - UCx not sent // Stage II sacral decubitus ulcer, not grossly infected - surveillance WCx pending // Negative influenza // Afebrile without leukocytosis // Wnd Cx : EColi and StrpVirid ( Coloniz ) // Symptomatic anemia of chronic disease - Mosque, refuses blood products // CAD / CHF SP PPM // h/o DVT SP IVC filter // No ABX allergies // Full Code PLAN: - continue empiric cefepime and DC IV vancomycin d# 4 / 5 - monitor CBC, temperatures - monitor BMP Subjective Constitutional: Denies: anorexia, chills, drenching sweats, fatigue, fever, no symptoms, other Allergies: Coded Allergies: LATEX (Unverified Allergy, Mild, Rash, 09/03/14) QUININE (Unverified Allergy, Unknown, Rash Hives, 05/23/15) Quinine Sulfate Objective Vital Signs Last 24 Hour Vital Signs Date Time Temp Pulse Resp B/P Pulse Ox O2 Delivery O2 Flow Rate FiO2 10/02/16 09:06 164/78 10/02/16 09:06 70 164/78 10/02/16 08:59 96.9 70 19 164/78 98 Room Air 10/02/16 04:00 98.7 81 18 123/81 96 Room Air 10/02/16 00:00 99.9 60 16 157/79 98 Room Air 10/01/16 20:00 97.6 60 20 151/77 98 Room Air 10/01/16 19:55 70 18 Room Air 10/01/16 17:20 153/79 10/01/16 17:20 72 153/79 10/01/16 16:00 63 10/01/16 16:00 97.8 72 19 153/79 98 Room Air 10/01/16 12:00 78 10/01/16 12:00 96.4 82 18 148/94 95 Room Air 10/01/16 10:05 150/69 10/01/16 10:05 69 150/69 10/01/16 09:42 69 18 Room Air Height (Feet): 5 Height (Inches): 4.00 Weight (Pounds): 140 HEENT: anicteric Respiratory/Chest: normal breath sounds Cardiovascular: normal rate Abdomen: soft, non tender Microbiology Date/Time Source Procedure Growth Status 09/29/16 23:00 Indwelling Cath Urine Culture - Preliminary NO GROWTH Resulted Laboratory Tests Test 10/01/16 14:50 10/01/16 17:20 10/02/16 05:05 Stool Occult Blood Positive (NEGATIVE) Vancomycin Level Trough 7.0 ug/mL (5.0-12.0) White Blood Count 7.2 K/UL (4.8-10.8) Red Blood Count 2.79 M/UL (4.20-5.40) L Hemoglobin 8.1 G/DL (12.0-16.0) L Hematocrit 25.8 % (37.0-47.0) L Mean Corpuscular Volume 93 FL (80-99) Mean Corpuscular Hemoglobin 28.9 PG (27.0-31.0) Mean Corpuscular Hemoglobin Concent 31.2 G/DL (32.0-36.0) L Red Cell Distribution Width 16.2 % (11.6-14.8) H Platelet Count 257 K/UL (150-450) Mean Platelet Volume 6.0 FL (6.5-10.1) L Neutrophils (%) (Auto) 64.7 % (45.0-75.0) Lymphocytes (%) (Auto) 19.6 % (20.0-45.0) L Monocytes (%) (Auto) 8.9 % (1.0-10.0) Eosinophils (%) (Auto) 6.4 % (0.0-3.0) H Basophils (%) (Auto) 0.5 % (0.0-2.0) Sodium Level 140 mEQ/L (135-145) Potassium Level 3.8 mEQ/L (3.4-4.9) Chloride Level 101 mEQ/L (98-107) Carbon Dioxide Level 24 mEQ/L (20-30) Anion Gap 15 (5-15) Blood Urea Nitrogen 16 mg/dL (7-23) Creatinine 0.7 mg/dL (0.5-0.9) # Estimat Glomerular Filtration Rate mL/min (>60) Glucose Level 104 mg/dL (74-106) Calcium Level 9.0 mg/dL (8.6-10.2) Current Medications Medications (Trade) Dose Ordered Sig/Don Route PRN Reason Start Time Stop Time Status Last Admin Dose Admin Acetaminophen (Tylenol) 650 mg Q4H PRN ORAL fever 10/02/16 03:00 11/01/16 02:59 Al Hydroxide/Mg Hydroxide (Mylanta II) 30 ml Q6H PRN ORAL dyspepsia 10/02/16 05:00 11/01/16 04:59 Albuterol/ Ipratropium (DuoNeb 0.5-3(2.5)mg/3ml) 3 ml Q4H PRN HHN Shortness of Breath 10/02/16 02:00 10/07/16 01:59 Atorvastatin Calcium (Lipitor) 20 mg BEDTIME ORAL 10/02/16 21:00 11/01/16 20:59 Carvedilol (Coreg) 3.125 mg BID ORAL 10/02/16 09:00 11/01/16 08:59 10/02/16 09:06 Cefepime HCl 1 gm/ Dextrose 55 ml @ 110 mls/hr Q24H IV 10/02/16 09:00 10/09/16 08:59 10/02/16 09:05 Dextrose (Dextrose 50%) STAT PRN IV Hypoglycemia 10/02/16 23:00 11/01/16 22:59 Donepezil HCl (Aricept) 5 mg DAILY ORAL 10/02/16 09:00 11/01/16 08:59 10/02/16 09:07 Epoetin Barak (Procrit (for non ESRD use)) 10,000 units MON-SUN-SUN SUBQ 10/02/16 21:00 11/01/16 20:59 Heparin Sodium (Porcine) (Heparin 5000 units/ml) 5,000 units EVERY 12 HOURS SUBQ 10/02/16 09:00 11/01/16 08:59 Insulin Aspart (NovoLOG) BEFORE MEALS AND HS SUBQ 10/02/16 06:30 11/01/16 06:29 Iron Sucrose 100 mg/Sodium Chloride 115 ml @ 460 mls/hr BEDTIME IVPB 10/02/16 21:00 10/03/16 21:01 Losartan Potassium (Cozaar) 25 mg TWICE A DAY ORAL 10/02/16 09:00 11/01/16 08:59 10/02/16 09:06 Nitroglycerin (Ntg) 0.4 mg Q5M PRN SL Prn Chest Pain 10/02/16 01:30 11/01/16 01:29 Ondansetron HCl (Zofran) 4 mg Q6H PRN IVP Nausea & Vomiting 10/02/16 05:00 11/01/16 04:59 Pantoprazole (Protonix) 40 mg DAILY ORAL 10/02/16 09:00 11/01/16 08:59 10/02/16 09:22 Polyethylene Glycol (Miralax) 17 gm DAILYPRN PRN ORAL Constipation 10/02/16 23:00 11/01/16 22:59 Sertraline HCl (Zoloft) 100 mg DAILY ORAL 10/02/16 09:00 11/01/16 08:59 10/02/16 09:06 Temazepam (Restoril) 15 mg HSPRN PRN ORAL Insomnia 10/02/16 23:00 10/09/16 22:59 Vancomycin HCl (Vanco rx to dose) 1 ea DAILY PRN MISC Per rx protocol 10/02/16 09:00 11/01/16 08:59 Vancomycin HCl/ Dextrose (Vancomycin/D5W) 275 ml @ 183.708 mls/hr Q12H IVPB 10/02/16 06:00 10/07/16 05:59 10/02/16 05:20 ANOOP REVELES M.D. Oct 02, 2016 09:29
--- NOTE | 2016-10-02 11:16 | Internal Med Progress Note ---
Subjective Date of Service: Oct 02, 2016 Physician Name Delfin Martinez Attending Physician Lobito Jones MD Current Medications Medications (Trade) Dose Ordered Sig/Don Route PRN Reason Start Time Stop Time Status Last Admin Dose Admin Acetaminophen (Tylenol) 650 mg Q4H PRN ORAL fever 10/02/16 03:00 11/01/16 02:59 Al Hydroxide/Mg Hydroxide (Mylanta II) 30 ml Q6H PRN ORAL dyspepsia 10/02/16 05:00 11/01/16 04:59 Albuterol/ Ipratropium (DuoNeb 0.5-3(2.5)mg/3ml) 3 ml Q4H PRN HHN Shortness of Breath 10/02/16 02:00 10/07/16 01:59 Atorvastatin Calcium (Lipitor) 20 mg BEDTIME ORAL 10/02/16 21:00 11/01/16 20:59 Carvedilol (Coreg) 3.125 mg BID ORAL 10/02/16 09:00 11/01/16 08:59 10/02/16 09:06 Cefepime HCl 1 gm/ Dextrose 55 ml @ 110 mls/hr Q24H IV 10/02/16 09:00 10/09/16 08:59 10/02/16 09:05 Dextrose (Dextrose 50%) STAT PRN IV Hypoglycemia 10/02/16 23:00 11/01/16 22:59 Donepezil HCl (Aricept) 5 mg DAILY ORAL 10/02/16 09:00 11/01/16 08:59 10/02/16 09:07 Epoetin Barak (Procrit (for non ESRD use)) 10,000 units MON-SUN-SUN SUBQ 10/02/16 21:00 11/01/16 20:59 Heparin Sodium (Porcine) (Heparin 5000 units/ml) 5,000 units EVERY 12 HOURS SUBQ 10/02/16 09:00 11/01/16 08:59 10/02/16 09:00 Insulin Aspart (NovoLOG) BEFORE MEALS AND HS SUBQ 10/02/16 06:30 11/01/16 06:29 Iron Sucrose/ Sodium Chloride (Venofer/Sodium Chloride) 115 ml @ 460 mls/hr BEDTIME IVPB 10/02/16 21:00 10/03/16 21:01 Losartan Potassium (Cozaar) 25 mg TWICE A DAY ORAL 10/02/16 09:00 11/01/16 08:59 10/02/16 09:06 Nitroglycerin (Ntg) 0.4 mg Q5M PRN SL Prn Chest Pain 10/02/16 01:30 11/01/16 01:29 Ondansetron HCl (Zofran) 4 mg Q6H PRN IVP Nausea & Vomiting 10/02/16 05:00 11/01/16 04:59 Pantoprazole (Protonix) 40 mg DAILY ORAL 10/02/16 09:00 11/01/16 08:59 10/02/16 09:22 Polyethylene Glycol (Miralax) 17 gm DAILYPRN PRN ORAL Constipation 10/02/16 23:00 11/01/16 22:59 Sertraline HCl (Zoloft) 100 mg DAILY ORAL 10/02/16 09:00 11/01/16 08:59 10/02/16 09:06 Temazepam (Restoril) 15 mg HSPRN PRN ORAL Insomnia 10/02/16 23:00 10/09/16 22:59 Allergies: Coded Allergies: LATEX (Unverified Allergy, Mild, Rash, 09/03/14) QUININE (Unverified Allergy, Unknown, Rash Hives, 05/23/15) Quinine Sulfate ROS Limited/Unobtainable: No Constitutional: Reports: no symptoms HEENT: Reports: no symptoms Cardiovascular: Reports: no symptoms Respiratory: Reports: no symptoms Gastrointestinal/Abdominal: Reports: no symptoms Genitourinary: Reports: no symptoms Neurologic/Psychiatric: Reports: no symptoms Subjective 75 YO F admitted with fatigue and severe anemia. Cover for Int Madan-Dr Jones. Objective Last Vital Signs Date Time Temp Pulse Resp B/P Pulse Ox O2 Delivery O2 Flow Rate FiO2 10/02/16 09:06 164/78 10/02/16 09:06 70 10/02/16 08:59 96.9 19 98 Room Air 09/29/16 20:35 21 Laboratory Tests Test 10/01/16 14:50 10/01/16 17:20 10/02/16 05:05 Stool Occult Blood Positive (NEGATIVE) Vancomycin Level Trough 7.0 ug/mL (5.0-12.0) White Blood Count 7.2 K/UL (4.8-10.8) Red Blood Count 2.79 M/UL (4.20-5.40) L Hemoglobin 8.1 G/DL (12.0-16.0) L Hematocrit 25.8 % (37.0-47.0) L Mean Corpuscular Volume 93 FL (80-99) Mean Corpuscular Hemoglobin 28.9 PG (27.0-31.0) Mean Corpuscular Hemoglobin Concent 31.2 G/DL (32.0-36.0) L Red Cell Distribution Width 16.2 % (11.6-14.8) H Platelet Count 257 K/UL (150-450) Mean Platelet Volume 6.0 FL (6.5-10.1) L Neutrophils (%) (Auto) 64.7 % (45.0-75.0) Lymphocytes (%) (Auto) 19.6 % (20.0-45.0) L Monocytes (%) (Auto) 8.9 % (1.0-10.0) Eosinophils (%) (Auto) 6.4 % (0.0-3.0) H Basophils (%) (Auto) 0.5 % (0.0-2.0) Sodium Level 140 mEQ/L (135-145) Potassium Level 3.8 mEQ/L (3.4-4.9) Chloride Level 101 mEQ/L (98-107) Carbon Dioxide Level 24 mEQ/L (20-30) Anion Gap 15 (5-15) Blood Urea Nitrogen 16 mg/dL (7-23) Creatinine 0.7 mg/dL (0.5-0.9) # Estimat Glomerular Filtration Rate mL/min (>60) Glucose Level 104 mg/dL (74-106) Calcium Level 9.0 mg/dL (8.6-10.2) Microbiology Date/Time Source Procedure Growth Status 09/29/16 23:00 Indwelling Cath Urine Culture - Preliminary NO GROWTH AFTER 24 HOURS Resulted Intake and Output 10/01/16 10/02/16 19:00 07:00 Intake Total 55 ml 833.708 ml Balance 55 ml 833.708 ml Intake Oral 260 ml IV Total 55 ml 573.708 ml # Voids 4 Objective General Appearance: WD/WN, no apparent distress, alert EENT: PERRL/EOMI, normal ENT inspection Neck: non-tender, normal alignment, supple, normal inspection Cardiovascular: normal peripheral pulses, normal rate, regular rhythm, no gallop/murmur, no JVD Respiratory/Chest: chest wall non-tender, lungs clear, normal breath sounds, no respiratory distress, no accessory muscle use Abdomen: normal bowel sounds, non tender, soft, no organomegaly, no mass Extremities: normal range of motion 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 See ID note. Cont cefepime and vanco (6) CVA (cerebrovascular accident) (7) Left hemiparesis (8) Pacemaker (9) Sick sinus syndrome Assessment & Plan: S/P pacemaker (10) CAD (coronary artery disease) (11) Hypertension (12) CHF (congestive heart failure) Assessment & Plan: See cardiology note. (13) Diabetes mellitus (14) Hypercholesteremia Status: progressing Assessment/Plan Discharge planning: home with home health DELFIN MARTINEZ Oct 02, 2016 11:16
[2016-10-02 12:55] VITALS: BP 110/89
[2016-10-02] MEDS ORDERED: CEFEPIME-D1 GM/50 ML IVPB (14:02)
[2016-10-02] MEDS ORDERED: Tubing IV Secondary IV ONE (19:12)
[2016-10-02] MEDS ORDERED: NS 275ml ONE (19:12)
[2016-10-02] MEDS ORDERED: Iron Sucrose 100 MG in NS 110 ML IVPB SCH (21:00)
[2016-10-02] MEDS ORDERED: Epogen (for non ESRD use) SUBQ SCH (21:00)
[2016-10-02] MEDS ORDERED: Atorvastatin 20mg tab ORAL SCH (21:00)
[2016-10-02] MEDS ORDERED: Miralax 17gm pkt ORAL PRN (23:00)
--- NOTE | 2016-10-02 23:53 | Pulmonology Progress Note ---
Assessment/Plan Problems: (1) Symptomatic anemia (2) UTI (urinary tract infection) (3) Asthma (4) Diabetes mellitus (5) Hypertension (6) Iron deficiency anemia Assessment/Plan stable bc position, ID pending continue antibiotics avoid blood draw pt/ot med/surg. Subjective Constitutional: Reports: anorexia, fatigue Respiratory: Reports: dry cough, shortness of breath, wheezing Allergies: Coded Allergies: LATEX (Unverified Allergy, Mild, Rash, 09/03/14) QUININE (Unverified Allergy, Unknown, Rash Hives, 05/23/15) Quinine Sulfate Objective Last 24 Hour Vital Signs Date Time Temp Pulse Resp B/P Pulse Ox O2 Delivery O2 Flow Rate FiO2 10/02/16 12:55 97.0 91 19 110/89 97 Room Air 10/02/16 09:06 164/78 10/02/16 09:06 70 164/78 10/02/16 08:59 96.9 70 19 164/78 98 Room Air 10/02/16 07:52 70 18 Room Air 10/02/16 04:00 98.7 81 18 123/81 96 Room Air 10/02/16 00:00 99.9 60 16 157/79 98 Room Air Intake and Output 10/01/16 10/02/16 19:00 07:00 Intake Total 55 ml 833.708 ml Balance 55 ml 833.708 ml Intake Oral 260 ml IV Total 55 ml 573.708 ml # Voids 4 General Appearance: no acute distress HEENT: normocephalic, atraumatic, PERRL Respiratory/Chest: chest wall non-tender, decreased breath sounds, accessory muscle use, expiratory wheezing Breasts: no masses Cardiovascular: normal peripheral pulses, normal rate, regular rhythm Abdomen: normal bowel sounds, soft, non tender, no organomegaly Genitourinary: normal external genitalia Extremities: no cyanosis Neurologic/Psychiatric: street sprinkler II-XII grossly normal Laboratory Tests 10/02/16 05:05: White Blood Count 7.2, Red Blood Count 2.79L, Hemoglobin 8.1L, Hematocrit 25.8L , Mean Corpuscular Volume 93, Mean Corpuscular Hemoglobin 28.9, Mean Corpuscular Hemoglobin Concent 31.2L, Red Cell Distribution Width 16.2H, Platelet Count 257, Mean Platelet Volume 6.0L, Neutrophils (%) (Auto) 64.7, Lymphocytes (%) (Auto) 19.6L, Monocytes (%) (Auto) 8.9, Eosinophils (%) (Auto) 6.4H, Basophils (%) (Auto) 0.5, Sodium Level 140, Potassium Level 3.8, Chloride Level 101, Carbon Dioxide Level 24, Anion Gap 15, Blood Urea Nitrogen 16, Creatinine 0.7#, Estimat Glomerular Filtration Rate , Glucose Level 104, Calcium Level 9.0 MARLENY TURPIN Oct 02, 2016 23:53
--- NOTE | 2016-10-03 14:54 | Discharge Summary ---
Discharge Summary Hospital Course Date of Admission Sep 27, 2016 at 22:57 Date of Discharge Oct 02, 2016 at 19:13 Admitting Diagnosis Anemia, UTI HPI Shirin Sommer is a 75 year old female who was admitted on Sep 27, 2016 at 22:57 for Anemia,Urinary Tract Infection Hospital Course dc summary dictated #[id number] Discharge Medications Continued Medications: Atorvastatin Calcium* (Atorvastatin Calcium*) 20 Mg Tablet 20 MG ORAL BEDTIME, TAB Carvedilol* (Carvedilol*) 3.125 Mg Tablet 3.125 MG ORAL BID, TAB Donepezil Hcl* (Donepezil Hcl*) 5 Mg Tab.rapdis 5 MG ORAL DAILY, TAB Ferrous Sulfate* (Ferrous Sulfate*) 325 Mg Tablet 325 MG ORAL DAILY, #30 TAB 0 Refills Hydrocodone Bit/Acetaminophen 5-325* ([place] 5-325 Tablet*) 1 Each Tablet 1 TAB ORAL Q6HR PRN for For Pain, TAB Ketoconazole (Ketoconazole) 15 Gm Cream..g. 1 APPLIC TOPIC BID for 30 Days, GM Losartan Potassium* (Losartan Potassium*) 25 Mg Tablet 25 MG ORAL DAILY, TAB Metformin Hcl* (Metformin Hcl*) 500 Mg Tablet 500 MG ORAL TWICE A DAY, TAB Sertraline Hcl* (Zoloft*) 100 Mg Tablet 100 MG ORAL DAILY, TAB Temazepam (Temazepam*) 15 Mg Capsule 15 MG ORAL BEDTIME PRN for Insomnia, #30 CAP 0 Refills Discharge Condition Upon Discharge: improving, stable Discharge Disposition Patient was discharged to Home with Home Health(06) Discharge Diagnoses: Nnamdi (Larypeter)Nohemi NP Oct 03, 2016 14:54
--- NOTE | 2016-10-04 05:48 | Discharge Summary 2 SIG ---
DATE OF ADMISSION: 09/27/2016 DATE OF DISCHARGE: 10/02/2016 REASON FOR ADMISSION: 75-year-old female, Jehovah Witness, with history of chronic anemia, presented with a chief complaint of feeling weak and tired, symptoms started few days ago and gradually were getting worse. Tiredness and weakness were worse with exertion. However, the patient declined chest pain and shortness of breath. She also reported dysuria. She denied nausea, vomiting, fever, or chills. No abdominal pain. No flank pain. Workup in the emergency department revealed acute anemia. The patient was afebrile and room air saturation was stable. Initial hemoglobin 7.7 and 24.4 and in the morning 7.2 and 23.4. The patient admitted for further management. ADMITTING DIAGNOSES: 1. Acute anemia. 2. Urinary tract infection. 3. Altered level of consciousness. HOSPITAL COURSE: The patient admitted to telemetry. Hemoglobin and hematocrit were closely monitored , using pediatric tubes. Anemia workup revealed iron deficiency anemia. The patient started on IV Venofer. Hemoglobin on day of discharge up to 8.1 and hematocrit was 25.8. Oral iron supplements upon discharge. Continue EPO. Recommend outpatient GI evaluation for possible GI bleeding. Started on PPI. The patient was on empiric antibiotics. ID followed. Blood culture one out of four with Staph coagulase -negative, likely contamination as per ID. Vancomycin was discontinued. Continue cefepime. However, subsequently urine culture, influenza screen and CXR were all negative. ID recommended discontinue antibiotics. Observe off antibiotics. Cardiology had seen the patient. In lieu of acute anemia, the patient was off antiplatelet medications. Echocardiogram revealed ejection fraction of 35% to 40% and right ventricular systolic pressure of 28. Medical management of congestive heart failure with beta-crow and CHELSEA inhibitor. Current management kept blood pressure stable . Statin continued, Dual chamber ICD was interrogated on 09/30/2016 with conclusion of normal functioning. Blood sugar was managed with sliding scale of insulin. The patient was stable for discharge home with home health. DISCHARGE DIAGNOSES: 1. Acute iron deficiency anemia. 2. Refusal of transfusion as the patient is Jehovah Witness. 3. History of cerebrovascular accident with left hemiparesis. 4. Cardiomyopathy 5. Dual-chamber ICD, interrogation done on 09/30/2016, normal functioning. 6. Hypertension, stable. 7. Coronary artery disease. 8. Diabetes mellitus. 9. Stage II sacral decubitus, present on admission. 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 Closely monitor hemoglobin and hematocrit, continue oral iron supplements . Consider outpatient GI evaluation for possible GI bleeding, Lobito Jones M.D. Nohemi CarolinaRoswell Park Comprehensive Cancer CenterCristina Vásquez DR: DIMAS JOB#: [id number] CC: ELIGIO
--- NOTE | 2016-10-04 13:47 | Cardiology Report ---
APPROVED REPORT EXAM: Two-dimensional and M-mode echocardiogram with Doppler and color Doppler. INDICATION Congestive Heart Failure M-Mode DIMENSIONS Left Atrium (MM)2.7 (1.6-4.0cm) Aortic Root3.5 (2.0-3.7cm) Aortic Cusp Exc.2.0 (1.5-2.0cm) Normal left ventricular chamber size. M-mode measurements not obtainable due to cardiac structure. Anteroseptal wall akinesia with thinning, scar and aneurysmal formation. Left ventricular ejection fraction is estimated to be 35-40%. No evidence of left ventricular hypertrophy. Large posterior pleural effusion. Small anterior pericardial effusion. Right cardiac chamber sizes are within normal limits. Mild left atrial enlargement by 2D. Focal aortic valve sclerosis with adequate cusp excursion Thickened mitral valve leaflets with normal excursion. Moderate mitral annulus and aortic root calcification. Pulmonic valve not well visualized. Normal tricuspid valve structure. IVC is normal in size with physiologic collapse. Probable pacemaker wire present in the right side chambers. A color flow and spectral Doppler study was performed and revealed: No aortic regurgitation. Mild mitral regurgitation. Left ventricular diastolic dysfunction not obtainable due to arrhythmia. Moderate tricuspid regurgitation. Tricuspid systolic velocities suggests peak right ventricular systolic pressure of 28 mmHg
--- NOTE | 2016-11-04 03:14 | Cardiology Report ---
APPROVED REPORT EKG Measurement Heart [id number] NC 190P-6 [id number] Atrial pacing Left axis deviation Minimal voltage criteria for LVH, may be normal variant Septal infarct, age undetermined Abnormal ECG
== END 2016-10-02 19:13 | disposition home health service (06) | DRG 812 ==
LOC: EDBD 21:11 → EMR 21:23 → 2E 22:57 → EDBEDREQ 23:18 → EDBEDREQSVC 23:18 → EDBEDREQ 09-28 00:39 → 2E 09-28 06:56 → 4W 10-02 00:53
DX: D50.9 Iron deficiency anemia, unspecified (principal); L89.152 Pressure ulcer of sacral region, stage 2; I50.9 Heart failure, unspecified; I42.9 Cardiomyopathy, unspecified; N39.0 Urinary tract infection, site not specified; I69.354 Hemiplegia and hemiparesis following cerebral infarction affecting left non-dominant side; I25.10 Atherosclerotic heart disease of native coronary artery without angina pectoris; I10 Essential (primary) hypertension; E78.00 Pure hypercholesterolemia, unspecified; Z86.718 Personal history of other venous thrombosis and embolism; E11.9 Type 2 diabetes mellitus without complications; Z53.1 Procedure and treatment not carried out because of patient's decision for reasons of belief and group pressure; Z95.810 Presence of automatic (implantable) cardiac defibrillator; Z88.8 Allergy status to other drugs, medicaments and biological substances; Z96.653 Presence of artificial knee joint, bilateral; Z79.02 Long term (current) use of antithrombotics/antiplatelets; I25.5 Ischemic cardiomyopathy; I25.2 Old myocardial infarction; R53.83 Other fatigue
CPT/HCPCS: 36415; 71010; 80048; 80053; 80069; 80202; 81003; 82270; 82550; 82607; 82728; 82746; 82962; 83540; 83550; 83605; 83880; 84484; 85007; 85025; 85610; 85730; 86710; 86850; 86900; 86901; 87040; 87070; 87086; 87181; 87205; 93005; 93306; 94664; J1815

== ENCOUNTER 2016-11-27 14:39 | Inpatient (IN) | payer MEDICARE, MEDICAID ==
[~2016-11-27] VITALS: Ht 165.1 cm; Wt 65.8 kg
[~2016-11-27 14:39] MED LIST changes: +CEFEPIME-D1 GM/50 ML IVPB
[2016-11-27 15:15] VITALS: BP 104/60
[2016-11-27] MEDS ORDERED: CLOPIDOGREL75 MG ORAL (15:43)
[2016-11-27] MEDS ORDERED: ASPIRIN EC81 MG ORAL (15:43)
--- NOTE | 2016-11-27 16:24 | Diagnostic Imaging Report ---
Indications: Single Technique: Spiral acquisitions obtained through the brain. Angled axial and coronal 5 x 5 mm slices were reconstructed. Total dose length product 1358 mGycm. CTDI vol(s) 70 mGy Comparison: 08/01/2016 Findings: There is a large area of encephalomalacia involving most of the right temporal lobe and a significant portion of the right parietal lobe, consistent with old middle cerebral artery distribution infarct. There is a area of encephalomalacia involving the left occipital lobe, consistent with old posterior cerebral artery infarct. Is age-related enlargement of the ventricles and extra-axial CSF spaces, in addition to ex vacuo dilatation of the ventricles in the areas of encephalomalacia. Old lacunar infarct is again demonstrated in the right caudate head. There are questionably old lacunar infarcts of the sadie noted There is patent cavum septum pellucidum again demonstrated. There is extensive periventricular deep white matter chronic ischemic change. The calvarium is intact. Sinuses are clear. The orbits are unremarkable. Impression: Negative for acute intracranial bleed or mass effect. Extensive chronic and age-related changes, as described, including multiple old infarcts. The CT scanner at [facility] is accredited by the [employer] and the scans are performed using protocols designed to limit radiation exposure to as low as reasonably achievable to attain images of sufficient resolution adequate for diagnostic evaluation.
[2016-11-27 16:26] LABS: MEAN CORPUSCULAR HEMOGLOBIN 28.6 PG (27.0-31.0); MEAN CORPUSCULAR HGB CONC 30.4 G/DL (32.0-36.0); MEAN CORPUSCULAR VOLUME 94 FL (80-99); MEAN PLATELET VOLUME 5.7 FL (6.5-10.1); PLATELET COUNT 273 K/UL (150-450); RED BLOOD COUNT 2.33 M/UL (4.20-5.40); RED CELL DISTRIBUTION WIDTH 17.8 % (11.6-14.8); WHITE BLOOD COUNT 8.5 K/UL (4.8-10.8)
[2016-11-27 16:57] LABS: TROPONIN I < 0.30 ng/mL (<=0.30)
[2016-11-27 17:00] LABS: ALANINE AMINOTRANSFERASE 8 U/L (3-33); ALBUMIN/GLOBULIN RATIO 1.1 (1.0-2.7); ANION GAP 14 (5-15); ASPARTATE AMINO TRANSFERASE 12 U/L (5-40); CALCIUM 9.3 mg/dL (8.6-10.2); CARBON DIOXIDE 26 mEQ/L (20-30); CHLORIDE 101 mEQ/L (98-107); CREATININE 0.6 mg/dL (0.5-0.9); HEMOLYSIS 1; POTASSIUM 3.9 mEQ/L (3.4-4.9); SODIUM 141 mEQ/L (135-145); TOTAL PROTEIN 6.3 g/dL (6.6-8.7)
[2016-11-27 17:01] VITALS: BP 129/64
[2016-11-27 17:01] LABS: INR 1.2 (0.9-1.1); PROTHROMBIN TIME 11.8 SEC (9.30-11.50)
[2016-11-27 17:11] LABS: CKMB < 1.5 ng/mL (< 3.8)
[2016-11-27] MEDS ORDERED: Mylanta II UD 30ml ORAL PRN (18:00)
[2016-11-27 18:21] LABS: APPEARANCE,URINE CLEAR; KETONES,URINE NEGATIVE (NEGATIVE); LEUKOCYTE ESTERASE ,URINE 2+ (NEGATIVE); NITRITE,URINE NEGATIVE (NEGATIVE); PH,URINE 8 (4.5-8.0); PROTEIN,URINE NEGATIVE (NEGATIVE); UROBILINOGEN,URINE 4 MG/DL (0.0-1.0)
[2016-11-27] MEDS ORDERED: DuoNeb 0.5-3(2.5)mg/3ml neb HHN PRN (18:30)
[2016-11-27] MEDS ORDERED: Nitroglycerin Subl 0.4mg tab (Bottle Of 25) SL PRN (18:30)
[2016-11-27] MEDS ORDERED: LORazepam Inj 2mg/ml 1ml IV PRN (18:30)
[2016-11-27] MEDS ORDERED: Morphine Sulfate 2mg/ml Inj IVP PRN (18:30)
[2016-11-27 18:32] VITALS: BP 153/68
[2016-11-27 19:07] LABS: BACTERIA,URINE FEW /HPF; SQUAMOUS EPITHELIAL CELL,UR FEW /LPF (NONE/OCC)
[2016-11-27] MEDS: NovoLOG Insulin Flexpen SUBQ SCH ×2 (19:16→21:00)
[2016-11-27 19:36] LABS: EOSINOPHILS % (MANUAL) 3 % (0-3); LYMPHOCYTES % (MANUAL) 11 % (20-45); NEUTROPHILS % (MANUAL) 83 % (45-75); TOTAL CELLS COUNTED 100
[2016-11-27 19:37] LABS: ANISOCYTOSIS 2+; BAND NEUTROPHILS % (MANUAL) 0 % (0-8); BASOPHILS % (MANUAL) 0 % (0-2); HYPOCHROMASIA 2+; PLATELET ESTIMATE ADEQUATE; PLATELET MORPHOLOGY NORMAL
[2016-11-27 20:19] VITALS: BP 137/69
--- NOTE | 2016-11-27 20:34 | Emergency Room Report ---
History of Present Illness General Chief Complaint: Syncope Source: Medical Record Present Illness HPI 75-year-old female presents to ED for evaluation. Per EMS patient had syncopal episode at home. Witnessed by family. No reported head trauma. Upon arrival patient states she does not feel well. Feels weak. Denies any dizziness. Denies any chest pain shortness of breath. Denies any fevers or chills. Patient has dementia. Daughter aggravating or relieving factors. Denies any other associated symptoms Allergies: Coded Allergies: LATEX (Unverified Allergy, Mild, Rash, 09/03/14) QUININE (Unverified Allergy, Unknown, Rash Hives, 05/23/15) Quinine Sulfate Patient History Past Medical History: DM, HTN, CVA/TIA, dementia Past Surgical History: none, pacemaker Pertinent Family History: none Social History: Denies: alcohol use, drug use, smoking Now: No Immunizations: UTD Reviewed Nursing Documentation: PMH: Agreed, PSxH: Agreed Nursing Documentation-PMH Past Medical History: No History, Except For Hx Cardiac Problems: Yes - anemia, high cholesterol, stent CAD Hx Hypertension: Yes Hx Pacemaker: Yes Hx Asthma: Yes Hx Diabetes: Yes Hx Cancer: No Hx Gastrointestinal Problems: Yes Hx Neurological Problems: Yes Hx Cerebrovascular Accident: Yes - left side weakness Hx Dementia: Yes Hx Vertigo: Yes Hx Dizziness: Yes Hx Syncope: Yes Hx Headaches: Yes Hx Weakness: Yes Hx Fatigue: Yes Review of Systems All Other Systems: negative except mentioned in HPI Physical Exam Vital Signs Date Time Temp Pulse Resp B/P Pulse Ox O2 Delivery O2 Flow Rate FiO2 11/27/16 14:35 98.1 60 18 104/60 99 Room Air 11/27/16 17:01 2.0 Sp02 EP Interpretation: reviewed, normal General Appearance: no apparent distress, alert, GCS 15, non-toxic Head: normocephalic, atraumatic Eyes: bilateral eye PERRL, bilateral eye normal inspection ENT: hearing grossly normal, normal pharynx, no angioedema, normal voice Neck: full range of motion, supple/symm/no masses Respiratory: chest non-tender, lungs clear, normal breath sounds, speaking full sentences Cardiovascular #1: regular rate, rhythm, no edema Cardiovascular #2: 2+ carotid (R), 2+ carotid (L), 2+ radial (R), 2+ radial (L) , 2+ dorsalis pedis (R), 2+ dorsalis pedis (L) Gastrointestinal: normal bowel sounds, non tender, soft, non-distended, no guarding, no rebound Rectal: deferred Genitourinary: normal inspection, no CVA tenderness Musculoskeletal: back normal, gait/station normal, normal range of motion, non- tender Neurologic: alert, responsive, motor strength/tone normal, sensory intact, speech normal, other - dementia Psychiatric: other - dementia Reflexes: 3+ bicep (R), 3+ bicep (L), 3+ tricep (R), 3+ tricep (L), 3+ knee (R) , 3+ knee (L) Skin: normal color, no rash, warm/dry, well hydrated Lymphatic: no adenopathy Medical Decision Making Diagnostic Impression: Primary Impression: Syncope Qualified Codes: R55 - Syncope and collapse Additional Impressions: Anemia Qualified Codes: D64.9 - Anemia, unspecified CHF (congestive heart failure) Qualified Codes: I50.9 - Heart failure, unspecified ER Course Hospital Course 75-year-old F presents ED s/p syncopal episode. Differential diagnoses include: UT/unstable angina, arrythmia, dehydration, CVA/ TIA Clinical course Patient placed on stretcher. 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 After initial history and physical I ordered labs, EKG, chest x-ray, IVFs, CT Brain labs reviewed- no leukocytosis, hemoglobin/hematocrit 6.7/21.9, electrolytes okay, troponins negative, BNP eelvated EKG- NSR, twave inversiosn in lateral leads Chest x-ray- no acute process CT brain-unremarkable Patient does not give blood transfusions and only gets iron transfusions which PMD Dr. Jones is aware of Case discussed with Dr. Jones and he agreed to accept the patient to his service for further care and support I. I feel this is a highly complex case requiring extensive working including EKG/Rhythm strip, Xray/CT/US, Blood/urine lab work, repeat exams while in ED, and administration of strong opiates/narcotics for pain control, admission to hospital or close patient follow up. Diagnosis - syncope, anemia, CHF admitted to telemetry in serious condition Labs Test 11/27/16 16:10 11/27/16 18:00 White Blood Count 8.5 K/UL (4.8-10.8) Red Blood Count 2.33 M/UL (4.20-5.40) Hemoglobin 6.7 G/DL (12.0-16.0) Hematocrit 21.9 % (37.0-47.0) Mean Corpuscular Volume 94 FL (80-99) Mean Corpuscular Hemoglobin 28.6 PG (27.0-31.0) Mean Corpuscular Hemoglobin Concent 30.4 G/DL (32.0-36.0) Red Cell Distribution Width 17.8 % (11.6-14.8) Platelet Count 273 K/UL (150-450) Mean Platelet Volume 5.7 FL (6.5-10.1) Neutrophils (%) (Auto) % (45.0-75.0) Lymphocytes (%) (Auto) % (20.0-45.0) Monocytes (%) (Auto) % (1.0-10.0) Eosinophils (%) (Auto) % (0.0-3.0) Basophils (%) (Auto) % (0.0-2.0) Differential Total Cells Counted 100 Neutrophils % (Manual) 83 % (45-75) Lymphocytes % (Manual) 11 % (20-45) Monocytes % (Manual) 3 % (1-10) Eosinophils % (Manual) 3 % (0-3) Basophils % (Manual) 0 % (0-2) Band Neutrophils 0 % (0-8) Platelet Estimate Adequate Platelet Morphology Normal Hypochromasia 2+ Anisocytosis 2+ Prothrombin Time 11.8 SEC (9.30-11.50) Prothromb Time International Ratio 1.2 (0.9-1.1) Activated Partial Thromboplast Time 28 SEC (23-33) Sodium Level 141 mEQ/L (135-145) Potassium Level 3.9 mEQ/L (3.4-4.9) Chloride Level 101 mEQ/L (98-107) Carbon Dioxide Level 26 mEQ/L (20-30) Anion Gap 14 (5-15) Blood Urea Nitrogen 19 mg/dL (7-23) Creatinine 0.6 mg/dL (0.5-0.9) Estimat Glomerular Filtration Rate mL/min (>60) Glucose Level 109 mg/dL (74-106) Calcium Level 9.3 mg/dL (8.6-10.2) Total Bilirubin < 0.2 mg/dL (0.0-1.2) Aspartate Amino Transf (AST/SGOT) 12 U/L (5-40) Alanine Aminotransferase (ALT/SGPT) 8 U/L (3-33) Alkaline Phosphatase 74 U/L (35-104) Total Creatine Kinase 32 U/L (26-140) Creatine Kinase MB < 1.5 ng/mL (< 3.8) Creatine Kinase MB Relative Index Troponin I < 0.30 ng/mL (<=0.30) Pro-B-Type Natriuretic Peptide 2466 pg/mL (0-125) Total Protein 6.3 g/dL (6.6-8.7) Albumin 3.4 g/dL (3.5-5.2) Globulin 2.9 g/dL Albumin/Globulin Ratio 1.1 (1.0-2.7) Urine Color Pale yellow Urine Appearance Clear Urine pH 8 (4.5-8.0) Urine Specific [place] 1.015 (1.005-1.035) Urine Protein Negative (NEGATIVE) Urine Glucose (UA) Negative (NEGATIVE) Urine Ketones Negative (NEGATIVE) Urine Occult Blood Negative (NEGATIVE) Urine Nitrite Negative (NEGATIVE) Urine Bilirubin Negative (NEGATIVE) Urine Urobilinogen 4 MG/DL (0.0-1.0) Urine Leukocyte Esterase 2+ (NEGATIVE) Urine RBC 2-4 /HPF (0 - 2) Urine WBC 5-10 /HPF (0 - 2) Urine Squamous Epithelial Cells Few /LPF (NONE/OCC) Urine Bacteria Few /HPF (NONE) EKG Diagnostic Results Rate: normal Rhythm: NSR ST Segments: other - twave inversions in lateral leads ASA given to the pt in ED: No Rhythm Strip Diag. Results EP Interpretation: yes Rhythm: NSR, no PVC's, no ectopy Chest X-Ray Diagnostic Results EP Interpretation: No Findings: no consolidation, no effusion, no pneumothorax, no acute cardiopulmonary disease, other - AICD Number of Views: 1 CT/MRI/US Diagnostic Results CT/MRI/US Diagnostic Results : Imaging Test Ordered: CT Head Impression no acute process Last Vital Signs Date Time Temp Pulse Resp B/P Pulse Ox O2 Delivery O2 Flow Rate FiO2 11/27/16 19:12 60 153/68 11/27/16 18:32 98.1 18 99 Room Air 11/27/16 17:01 2.0 Status: improved Disposition: ADMITTED INPATIENT Condition: Serious Referrals: Lobito Jones MD (PCP) JUSTIN BULL M.D. Nov 27, 2016 20:34
[2016-11-27] MEDS ORDERED: Miralax 17gm pkt ORAL PRN (21:00)
[2016-11-27 22:17] VITALS: BP 140/73
--- NOTE | 2016-11-27 23:35 | Consultation ---
History of Present Illness General Date patient seen: Nov 27, 2016 Chief Complaint: Syncope Referring physician: Dr. Jones Reason for Consultation: inpatient management Present Illness HPI 75-year-old female with hx of DM, Jehovas Witness presents to ED for evaluation of syncopal episode at home and increasing weakness. She was diagnosed to have severe anemia and admitted for further weakness. Allergies: Coded Allergies: LATEX (Unverified Allergy, Mild, Rash, 09/03/14) QUININE (Unverified Allergy, Unknown, Rash Hives, 05/23/15) Quinine Sulfate Medication History Scheduled Aspirin Ec* (Aspirin Ec*), 81 MG ORAL DAILY, (Reported) Atorvastatin Calcium* (Atorvastatin Calcium*), 20 MG ORAL BEDTIME, (Reported) Carvedilol* (Carvedilol*), 3.125 MG ORAL BID, (Reported) Clopidogrel* (Clopidogrel*), 75 MG ORAL DAILY, (Reported) Donepezil Hcl* (Donepezil Hcl*), 5 MG ORAL DAILY, (Reported) Ferrous Sulfate* (Ferrous Sulfate*), 325 MG ORAL DAILY, (Reported) Losartan Potassium* (Losartan Potassium*), 25 MG ORAL DAILY, (Reported) Metformin Hcl* (Metformin Hcl*), 500 MG ORAL TWICE A DAY, (Reported) Sertraline Hcl* (Zoloft*), 100 MG ORAL DAILY, (Reported) Scheduled PRN Hydrocodone Bit/Acetaminophen 5-325* ([place] 5-325 Tablet*), 1 TAB ORAL Q6HR PRN for For Pain, (Reported) Temazepam (Temazepam*), 15 MG ORAL BEDTIME PRN for Insomnia, (Reported) Discontinued Medications Ketoconazole (Ketoconazole), 1 APPLIC TOPIC BID Discontinued Reason: Therapy completed Patient History Healthcare decision maker Resuscitation status Advanced Directive on File Yes Past Medical/Surgical History Past Medical/Surgical History: (1) Pacemaker (2) CHF (congestive heart failure) (3) CVA (cerebrovascular accident) (4) CAD (coronary artery disease) (5) Diabetes mellitus Review of Systems All Other Systems: negative except mentioned in HPI Physical Exam General Appearance: cachetic Lines, tubes and drains: peripheral HEENT: normocephalic, atraumatic Neck: non-tender, normal alignment Respiratory/Chest: chest wall non-tender, lungs clear Breasts: no masses Cardiovascular/Chest: normal rate Abdomen: normal bowel sounds Genitourinary/Rectal: normal genital exam Extremities: normal range of motion Last 24 Hour Vital Signs Date Time Temp Pulse Resp B/P Pulse Ox O2 Delivery O2 Flow Rate FiO2 11/27/16 22:17 98.1 67 18 140/73 100 Room Air 2.0 11/27/16 20:19 98.1 67 15 137/69 99 Room Air 2.0 11/27/16 19:12 60 153/68 11/27/16 18:32 98.1 60 18 153/68 99 Room Air 11/27/16 17:01 98.1 79 18 129/64 100 Nasal Cannula 2.0 11/27/16 15:15 98.1 74 18 104/60 99 Room Air 11/27/16 14:35 98.1 60 18 104/60 99 Room Air Laboratory Tests Test 11/27/16 16:10 11/27/16 18:00 White Blood Count 8.5 K/UL (4.8-10.8) Red Blood Count 2.33 M/UL (4.20-5.40) L Hemoglobin 6.7 G/DL (12.0-16.0) *L Hematocrit 21.9 % (37.0-47.0) L Mean Corpuscular Volume 94 FL (80-99) Mean Corpuscular Hemoglobin 28.6 PG (27.0-31.0) Mean Corpuscular Hemoglobin Concent 30.4 G/DL (32.0-36.0) L Red Cell Distribution Width 17.8 % (11.6-14.8) H Platelet Count 273 K/UL (150-450) Mean Platelet Volume 5.7 FL (6.5-10.1) L Neutrophils (%) (Auto) % (45.0-75.0) Lymphocytes (%) (Auto) % (20.0-45.0) Monocytes (%) (Auto) % (1.0-10.0) Eosinophils (%) (Auto) % (0.0-3.0) Basophils (%) (Auto) % (0.0-2.0) Differential Total Cells Counted 100 Neutrophils % (Manual) 83 % (45-75) H Lymphocytes % (Manual) 11 % (20-45) L Monocytes % (Manual) 3 % (1-10) Eosinophils % (Manual) 3 % (0-3) Basophils % (Manual) 0 % (0-2) Band Neutrophils 0 % (0-8) Platelet Estimate Adequate Platelet Morphology Normal Hypochromasia 2+ Anisocytosis 2+ Prothrombin Time 11.8 SEC (9.30-11.50) H Prothromb Time International Ratio 1.2 (0.9-1.1) H Activated Partial Thromboplast Time 28 SEC (23-33) Sodium Level 141 mEQ/L (135-145) Potassium Level 3.9 mEQ/L (3.4-4.9) Chloride Level 101 mEQ/L (98-107) Carbon Dioxide Level 26 mEQ/L (20-30) Anion Gap 14 (5-15) Blood Urea Nitrogen 19 mg/dL (7-23) Creatinine 0.6 mg/dL (0.5-0.9) Estimat Glomerular Filtration Rate mL/min (>60) Glucose Level 109 mg/dL (74-106) H Calcium Level 9.3 mg/dL (8.6-10.2) Total Bilirubin < 0.2 mg/dL (0.0-1.2) Aspartate Amino Transf (AST/SGOT) 12 U/L (5-40) Alanine Aminotransferase (ALT/SGPT) 8 U/L (3-33) Alkaline Phosphatase 74 U/L (35-104) Total Creatine Kinase 32 U/L (26-140) Creatine Kinase MB < 1.5 ng/mL (< 3.8) Creatine Kinase MB Relative Index Troponin I < 0.30 ng/mL (<=0.30) Pro-B-Type Natriuretic Peptide 2466 pg/mL (0-125) H Total Protein 6.3 g/dL (6.6-8.7) L Albumin 3.4 g/dL (3.5-5.2) L Globulin 2.9 g/dL Albumin/Globulin Ratio 1.1 (1.0-2.7) Urine Color Pale yellow Urine Appearance Clear Urine pH 8 (4.5-8.0) Urine Specific [place] 1.015 (1.005-1.035) Urine Protein Negative (NEGATIVE) Urine Glucose (UA) Negative (NEGATIVE) Urine Ketones Negative (NEGATIVE) Urine Occult Blood Negative (NEGATIVE) Urine Nitrite Negative (NEGATIVE) Urine Bilirubin Negative (NEGATIVE) Urine Urobilinogen 4 MG/DL (0.0-1.0) H Urine Leukocyte Esterase 2+ (NEGATIVE) H Urine RBC 2-4 /HPF (0 - 2) H Urine WBC 5-10 /HPF (0 - 2) H Urine Squamous Epithelial Cells Few /LPF (NONE/OCC) Urine Bacteria Few /HPF (NONE) Height (Feet): 5 Height (Inches): 5.00 Weight (Pounds): 145 Medications Current Medications Medications (Trade) Dose Ordered Sig/Don Route PRN Reason Start Time Stop Time Status Last Admin Dose Admin Acetaminophen (Tylenol) 650 mg Q4H PRN ORAL fever>100.5 11/27/16 18:30 12/27/16 18:29 Al Hydroxide/Mg Hydroxide (Mylanta II) 30 ml Q6H PRN ORAL dyspepsia 11/27/16 18:00 12/27/16 17:59 Albuterol/ Ipratropium (DuoNeb 0.5-3(2.5)mg/3ml) 3 ml Q4H PRN HHN Shortness of Breath 11/27/16 18:30 12/02/16 18:29 Atorvastatin Calcium (Lipitor) 20 mg BEDTIME ORAL 11/27/16 21:00 12/27/16 20:59 11/27/16 21:22 Carvedilol (Coreg) 3.125 mg BID ORAL 11/27/16 19:00 12/27/16 18:59 11/27/16 19:12 Clonidine HCl (Catapres) 0.1 mg Q4H PRN ORAL for sbp more than 160 11/27/16 18:30 12/27/16 18:29 Dextrose (Dextrose 50%) STAT PRN IV Hypoglycemia 11/27/16 18:30 12/27/16 18:29 Insulin Aspart (NovoLOG) BEFORE MEALS AND HS SUBQ 11/27/16 19:00 12/27/16 18:59 11/27/16 19:16 Lorazepam (Ativan 2mg/ml 1ml) 0.5 mg Q4H PRN IV For Anxiety 11/27/16 18:30 12/04/16 18:29 Losartan Potassium (Cozaar) 25 mg DAILY ORAL 11/28/16 09:00 12/28/16 08:59 Morphine Sulfate (Morphine Sulfate) 1 mg Q4H PRN IVP For Pain 7-10 11/27/16 18:30 12/04/16 18:29 Nitroglycerin (Ntg) 0.4 mg Q5M X 3 DOSES PRN SL Prn Chest Pain 11/27/16 18:30 12/27/16 18:29 Ondansetron HCl (Zofran) 4 mg Q6H PRN IVP Nausea & Vomiting 11/27/16 18:30 12/27/16 18:29 Polyethylene Glycol (Miralax) 17 gm HSPRN PRN ORAL Constipation 11/27/16 21:00 12/27/16 20:59 Sertraline HCl (Zoloft) 100 mg DAILY ORAL 11/28/16 09:00 12/28/16 08:59 Temazepam (Restoril) 15 mg HSPRN PRN ORAL Insomnia 11/27/16 21:00 12/04/16 20:59 Assessment/Plan Problem List: (1) Symptomatic anemia ICD Codes: D64.9 - Anemia, unspecified SNOMED: 118946927 (2) Syncope ICD Codes: R55 - Syncope and collapse SNOMED: 591688320 (3) Hypertension ICD Codes: I10 - Hypertension SNOMED: 59772472 (4) Asthma ICD Codes: J45.909 - Asthma SNOMED: 018436339 (5) CAD (coronary artery disease) ICD Codes: I25.10 - CAD (coronary artery disease) SNOMED: 89827433 (6) Diabetes mellitus ICD Codes: E11.9 - Diabetes mellitus SNOMED: 40353155 Assessment/Plan anemia w/u blood smear stool for OB No blood transfusion Epogen + folic acid+ vitamin b12 and venofer check h/h in a few days. cardio evaluation MARLENY TURPIN Nov 27, 2016 23:35
[2016-11-28] VITALS: BP_SYST 125; BP_SYST 159; BP_DIAS 76; BP_DIAS 78
[2016-11-28 04:00] VITALS: BP 130/71
[2016-11-28] MEDS: NovoLOG Insulin Flexpen SUBQ SCH ×4 (06:07→21:41)
[2016-11-28 08:08] LABS: MEAN CORPUSCULAR HEMOGLOBIN 28.5 PG (27.0-31.0); MEAN CORPUSCULAR VOLUME 95 FL (80-99); MEAN PLATELET VOLUME 5.6 FL (6.5-10.1); PLATELET COUNT 298 K/UL (150-450); RED BLOOD COUNT 2.16 M/UL (4.20-5.40); RED CELL DISTRIBUTION WIDTH 17.7 % (11.6-14.8); WHITE BLOOD COUNT 6.4 K/UL (4.8-10.8)
[2016-11-28 08:20] LABS: INR 1.2 (0.9-1.1); PROTHROMBIN TIME 11.9 SEC (9.30-11.50)
[2016-11-28 08:27] LABS: ALANINE AMINOTRANSFERASE 7 U/L (3-33); ALBUMIN/GLOBULIN RATIO 1.1 (1.0-2.7); ANION GAP 10 (5-15); ASPARTATE AMINO TRANSFERASE 12 U/L (5-40); CARBON DIOXIDE 27 mEQ/L (20-30); CHLORIDE 103 mEQ/L (98-107); CHOLESTEROL 129 mg/dL (< 200); CHOLESTEROL/HDL RATIO 2.7 (3.3-4.4); CREATININE 0.6 mg/dL (0.5-0.9); HEMOLYSIS 4; LDL CHOLESTEROL (CALC.) 62 mg/dL (60-99); POTASSIUM 4.2 mEQ/L (3.4-4.9); SODIUM 140 mEQ/L (135-145); TOTAL PROTEIN 5.6 g/dL (6.6-8.7)
[2016-11-28 08:29] VITALS: BP 145/71
[2016-11-28] MEDS: Sertraline 100mg tab ORAL SCH (09:27)
[2016-11-28] MEDS: Losartan 25mg tab ORAL SCH (09:28)
[2016-11-28 10:31] LABS: BAND NEUTROPHILS % (MANUAL) 0 % (0-8); BASOPHILS % (MANUAL) 0 % (0-2); EOSINOPHILS % (MANUAL) 1 % (0-3); LYMPHOCYTES % (MANUAL) 27 % (20-45); NEUTROPHILS % (MANUAL) 65 % (45-75); PLATELET ESTIMATE ADEQUATE; PLATELET MORPHOLOGY NORMAL; TOTAL CELLS COUNTED 100
[2016-11-28 10:32] LABS: ANISOCYTOSIS 1+; HYPOCHROMASIA 1+
[2016-11-28 10:59] LABS: OTHERS PATHOLOGIST COMMENT
[2016-11-28 11:30] VITALS: BP 130/70
[2016-11-28 15:33] LABS: PATH BLOOD SMEAR/OMC SENT TO PATHOLOGIST
[2016-11-28 16:00] VITALS: BP 139/64
[2016-11-28] MEDS ORDERED: Vitamin B12 1000mcg/ml Inj IM ONE (16:00)
[2016-11-28 16:58] LABS: RETICULOCYTE COUNT 3.2 % (0.0-2.0)
--- NOTE | 2016-11-28 19:03 | History & Physical ---
History and Physical History & Physicial Dictated for Int Med-Dr Jones no. [id number]. DELFIN MARTINEZ Nov 28, 2016 19:03
[2016-11-28 20:00] VITALS: BP 142/72
[2016-11-28] MEDS: Iron Sucrose 100 MG in NS 55 ML IVPB SCH (22:27)
[2016-11-29] VITALS: BP 156/65
--- NOTE | 2016-11-29 01:09 | History and Physical Report ---
DATE OF ADMISSION: 11/27/2016 CHIEF COMPLAINT: The patient is a 76-year-old female, presents with chief complaint of syncopal episode. HISTORY OF PRESENT ILLNESS: The patient has a history of severe iron-deficiency anemia. The patient is a Pentecostalism and has refused transfusion in the past. The patient was admitted to [facility] in September 2016 for severe anemia. The patient was started on intravenous Venofer and Epogen. According to the patient, she stopped receiving Epogen injections at home with home health. The patient's daughter is present during the interview. The patient states she was sitting in her wheelchair yesterday. The patient was having her haircut. The patient lost consciousness. The patient denies fall injury. The patient was transported to [place] [facility]. The patient was found to have a hemoglobin of 6.1. The patient was admitted for severe anemia and syncopal episode. REVIEW OF SYSTEMS: Constitutional: The patient denies weight loss or weight gain. The patient denies fever or chills. HEENT: The patient denies ear or throat pain. The patient denies headache. Cardiovascular: The patient denies palpitations or chest pain. Chest: The patient denies wheezes or shortness of breath. Abdomen: The patient denies nausea, vomiting, diarrhea, or constipation. Genitourinary: The patient denies dysuria or increased frequency of urination. Neuromuscular: The patient complains of syncopal episode as above. The patient denies seizures. PAST MEDICAL HISTORY: Significant for, 1. Severe iron deficiency anemia as above. 2. Cerebrovascular accident. 3. Left hemiparesis. 4. Coronary artery disease, status post stent placement in 2014. 5. Congestive heart failure. 6. Diabetes, type 2. 7. Hypertension. 8. Hypercholesterolemia. 9. History of deep venous thrombosis with IVC filter placement. 10. Pacemaker in situ. PAST SURGICAL HISTORY: Significant for, 1. Cholecystectomy. 2. Cervical spine fusion. 3. Lumbar spine surgery. 4. Bilateral knee total arthroplasty. 5. Carotid stenting for carotid stenosis. CURRENT MEDICATIONS: 1. Aspirin 81 mg one tablet p.o. daily. 2. Lipitor 20 mg one tablet p.o. nightly. 3. Carvedilol 3.125 mg one tablet p.o. twice daily. 4. Plavix 75 mg one tablet p.o. daily. 5. Aricept 5 mg one tablet p.o. daily. 6. Iron sulfate 325 mg one tablet p.o. daily. 7. [place] 5/325 mg one tablet p.o. q.6 h. 8. Losartan 25 mg one tablet p.o. daily. 9. Metformin 500 mg one tablet p.o. twice daily. 10. Zoloft 100 mg one tablet p.o. daily. 11. Temazepam 15 mg one tablet p.o. nightly. ALLERGIES: To latex and quinine. SOCIAL HISTORY: The patient is a Sabianist. The patient is . The patient denies tobacco or alcohol use. PHYSICAL EXAMINATION: VITAL SIGNS: Temperature is 97.5 degrees, respirations 18, pulse 60, blood pressure 145/71, and oxygen saturation 98% on 2 liters nasal cannula. GENERAL: The patient is well-developed, well-nourished, thin-appearing female, in no apparent distress. HEENT: Eyes, pupils are equal and responsive to light and accommodation. Extraocular movements are intact. NECK: Supple. No lymphadenopathy. CHEST: Lungs are clear to auscultation bilaterally without wheezes or rales. CARDIOVASCULAR: Regular rhythm and rate. S1 and S2 normal without murmurs, rubs, or gallops. ABDOMEN: Soft, nontender, and nondistended. Positive bowel sounds. No evidence of hepatosplenomegaly. Currently no rebound or guarding. EXTREMITIES: Negative for clubbing, cyanosis, or edema. RECTAL: Refused. GENITAL: Refused. NEUROLOGIC: The patient has 3/5 motor strength on the left and 4/5 on the right. Deep tendon reflexes are 2+ plantar. LABORATORY STUDIES: WBC 8.5, hemoglobin 6.7, hematocrit 21.9, and platelets 273,000. Sodium 141, potassium 3.9, chloride 101, CO2 26, BUN 19, creatinine 0.6, and glucose 109. Troponin is less than 0.3. BNP elevated 2466. ASSESSMENT: This is a 75-year-old -[place] female with, 1. Syncopal episode. 2. Severe anemia. 3. Cerebrovascular disease. 4. Left hemiparesis. 5. Coronary artery disease. 6. Congestive heart failure. 7. Diabetes, type 2. 8. Hypertension. 9. Hypercholesterolemia. 10. History of deep venous thrombosis. 11. Pacemaker in situ. TREATMENT: 1. Syncopal episode. This may be secondary to severe anemia. Carotid duplex and Dopplers are pending. An MRI of the brain is being considered. Syncopal episode is probably secondary to severe anemia. The patient is currently receiving intravenous Venofer and Epogen. Await carotid duplex Doppler studies as above. 2. Severe anemia as above. The patient is currently receiving intravenous Venofer and Epogen. A gastroenterology consultation was obtained with Dr. Diaz. Anemia may be secondary to gastrointestinal hemorrhage. The patient denies melena at this time. We will follow recommendations of Gastroenterology. 3. Cerebrovascular disease/left hemiparesis. A physical therapy consultation was obtained. 4. Coronary artery disease/congestive heart failure. The patient's BNP is elevated. A cardiology consultation is pending. 5. Diabetes, type 2. Continue metformin as above. A NovoLog sliding scale has been instituted. 6. Hypertension. Continue Coreg and losartan as above. 7. Hypercholesterolemia. Continue Lipitor as above. 8. Deep venous thrombosis. The patient is status post IVC filter placement. 9. Pacemaker in situ. Lorne Rios M.D. DR: MENDOZA JOB#: [id number] CC:
[2016-11-29 04:00] VITALS: BP 137/59
[2016-11-29] MEDS: NovoLOG Insulin Flexpen SUBQ SCH ×4 (06:27→21:49)
[2016-11-29 08:06] LABS: MEAN CORPUSCULAR HEMOGLOBIN 28.6 PG (27.0-31.0); MEAN CORPUSCULAR HGB CONC 30.1 G/DL (32.0-36.0); MEAN CORPUSCULAR VOLUME 95 FL (80-99); MEAN PLATELET VOLUME 5.7 FL (6.5-10.1); PLATELET COUNT 247 K/UL (150-450); RED BLOOD COUNT 1.99 M/UL (4.20-5.40)
[2016-11-29 08:17] VITALS: BP 136/64
[2016-11-29] MEDS: Losartan 25mg tab ORAL SCH (09:33)
[2016-11-29] MEDS: Sertraline 100mg tab ORAL SCH (09:33)
[2016-11-29 11:17] LABS: EOSINOPHILS % (MANUAL) 5 % (0-3); LYMPHOCYTES % (MANUAL) 17 % (20-45); NEUTROPHILS % (MANUAL) 76 % (45-75); TOTAL CELLS COUNTED 100
[2016-11-29 11:18] LABS: ANISOCYTOSIS 2+; BAND NEUTROPHILS % (MANUAL) 0 % (0-8); BASOPHILS % (MANUAL) 0 % (0-2); HYPOCHROMASIA 2+; PLATELET ESTIMATE ADEQUATE; PLATELET MORPHOLOGY NORMAL
[2016-11-29 11:44] VITALS: BP 144/73
--- NOTE | 2016-11-29 13:19 | Diagnostic Imaging Report ---
APPROVED REPORT CPT Code: 55815 Vascular Symptoms Syncope Comments: Tortuous right and left internal carotid arteries. Doppler Spectral Velocity Analysis RightLeft artery. The Doppler spectral flow analysis indicates the degree of stenosis is mild (40%) in the common carotid artery, mild (40%) in the internal carotid artery, and mimimal(10%) in the external carotid artery. VERTEBRAL- The vertebral artery is patent, without evidence of stenosis or steal. artery. The Doppler spectral flow analysis indicates the degree of stenosis is mild (20-30%) in the common carotid artery, mild (50%) in the internal carotid artery, and mimimal (10%) in the external carotid artery. VERTEBRAL- The vertebral artery is patent, without evidence of stenosis or steal.
[2016-11-29 16:00] VITALS: BP 126/61
--- NOTE | 2016-11-29 18:55 | Internal Med Progress Note ---
Subjective Date of Service: Nov 29, 2016 Physician Name Delfin Martinez Attending Physician Lobito Jones MD Current Medications Medications (Trade) Dose Ordered Sig/Don Route PRN Reason Start Time Stop Time Status Last Admin Dose Admin Acetaminophen (Tylenol) 650 mg Q4H PRN ORAL fever>100.5 11/27/16 18:30 12/27/16 18:29 Al Hydroxide/Mg Hydroxide (Mylanta II) 30 ml Q6H PRN ORAL dyspepsia 11/27/16 18:00 12/27/16 17:59 Albuterol/ Ipratropium (DuoNeb 0.5-3(2.5)mg/3ml) 3 ml Q4H PRN HHN Shortness of Breath 11/27/16 18:30 12/02/16 18:29 Atorvastatin Calcium (Lipitor) 20 mg BEDTIME ORAL 11/27/16 21:00 12/27/16 20:59 11/28/16 21:40 Carvedilol (Coreg) 3.125 mg BID ORAL 11/27/16 19:00 12/27/16 18:59 11/29/16 17:17 Clonidine HCl (Catapres) 0.1 mg Q4H PRN ORAL for sbp more than 160 11/27/16 18:30 12/27/16 18:29 Dextrose (Dextrose 50%) STAT PRN IV Hypoglycemia 11/27/16 18:30 12/27/16 18:29 Epoetin Barak (Procrit (for non ESRD use)) 10,000 units MON-WED-FRI SUBQ 11/29/16 21:00 12/29/16 20:59 Folic Acid (Folate) 1 mg DAILY ORAL 11/29/16 09:00 12/29/16 08:59 11/29/16 09:34 Insulin Aspart BEFORE MEALS AND HS SUBQ 11/27/16 19:00 12/27/16 18:59 11/28/16 21:41 Iron Sucrose/ Sodium Chloride (Venofer/Sodium Chloride) 60 ml @ 240 mls/hr BEDTIME IVPB 11/28/16 22:00 12/02/16 21:14 11/28/16 22:27 Lorazepam (Ativan 2mg/ml 1ml) 0.5 mg Q4H PRN IV For Anxiety 11/27/16 18:30 12/04/16 18:29 Losartan Potassium (Cozaar) 25 mg DAILY ORAL 11/28/16 09:00 12/28/16 08:59 11/29/16 09:33 Morphine Sulfate (Morphine Sulfate) 1 mg Q4H PRN IVP For Pain 7-10 11/27/16 18:30 12/04/16 18:29 Nitroglycerin (Ntg) 0.4 mg Q5M X 3 DOSES PRN SL Prn Chest Pain 11/27/16 18:30 12/27/16 18:29 Ondansetron HCl (Zofran) 4 mg Q6H PRN IVP Nausea & Vomiting 11/27/16 18:30 12/27/16 18:29 Polyethylene Glycol (Miralax) 17 gm HSPRN PRN ORAL Constipation 11/27/16 21:00 12/27/16 20:59 Sertraline HCl (Zoloft) 100 mg DAILY ORAL 11/28/16 09:00 12/28/16 08:59 11/29/16 09:33 Temazepam (Restoril) 15 mg HSPRN PRN ORAL Insomnia 11/27/16 21:00 12/04/16 20:59 11/28/16 22:52 Allergies: Coded Allergies: LATEX (Unverified Allergy, Mild, Rash, 09/03/14) QUININE (Unverified Allergy, Unknown, Rash Hives, 05/23/15) Quinine Sulfate ROS Limited/Unobtainable: No Constitutional: Reports: no symptoms HEENT: Reports: no symptoms Cardiovascular: Reports: no symptoms Respiratory: Reports: no symptoms Gastrointestinal/Abdominal: Reports: no symptoms Genitourinary: Reports: no symptoms Neurologic/Psychiatric: Reports: weakness Subjective 75 YO F admitted with syncope. Now severe anemia. Buddhism; refused transfusion. Await hematology consult. Cover for Kaylynn Jones. Objective Last Vital Signs Date Time Temp Pulse Resp B/P Pulse Ox O2 Delivery O2 Flow Rate FiO2 11/29/16 17:17 60 126/61 11/29/16 16:00 97.8 20 96 Nasal Cannula 2.0 11/29/16 08:09 28 General Appearance: WD/WN, no apparent distress, alert, moderate distress EENT: normal ENT inspection Neck: non-tender, normal alignment, supple Cardiovascular: normal peripheral pulses, normal rate, regular rhythm, no gallop/murmur, no JVD Respiratory/Chest: chest wall non-tender, lungs clear, normal breath sounds, no respiratory distress, no accessory muscle use Abdomen: normal bowel sounds, non tender, soft, no organomegaly, no mass Extremities: normal range of motion Neurologic: host/hostess head II-XII grossly normal, no motor/sensory deficits Skin: normal pigmentation, warm/dry Laboratory Tests Test 11/29/16 07:00 White Blood Count 6.0 K/UL (4.8-10.8) Red Blood Count 1.99 M/UL (4.20-5.40) L Hemoglobin 5.7 G/DL (12.0-16.0) *L Hematocrit 18.9 % (37.0-47.0) L Mean Corpuscular Volume 95 FL (80-99) Mean Corpuscular Hemoglobin 28.6 PG (27.0-31.0) Mean Corpuscular Hemoglobin Concent 30.1 G/DL (32.0-36.0) L Red Cell Distribution Width 18.0 % (11.6-14.8) H Platelet Count 247 K/UL (150-450) Mean Platelet Volume 5.7 FL (6.5-10.1) L Neutrophils (%) (Auto) % (45.0-75.0) Lymphocytes (%) (Auto) % (20.0-45.0) Monocytes (%) (Auto) % (1.0-10.0) Eosinophils (%) (Auto) % (0.0-3.0) Basophils (%) (Auto) % (0.0-2.0) Differential Total Cells Counted 100 Neutrophils % (Manual) 76 % (45-75) H Lymphocytes % (Manual) 17 % (20-45) L Monocytes % (Manual) 2 % (1-10) Eosinophils % (Manual) 5 % (0-3) H Basophils % (Manual) 0 % (0-2) Band Neutrophils 0 % (0-8) Platelet Estimate Adequate Platelet Morphology Normal Hypochromasia 2+ Anisocytosis 2+ Intake and Output 11/28/16 11/29/16 19:00 07:00 Intake Total 120 ml 275 ml Balance 120 ml 275 ml Intake Oral 120 ml 275 ml # Voids 2 4 # Bowel Movements 1 Assessment/Plan Problem List: (1) DVT (deep venous thrombosis) Assessment & Plan: S/P IVC (2) Severe anemia Assessment & Plan: Await hematology consult. Cont IV venofer and epogen. (3) Patient is Buddhism (4) Cerebral vascular disease (5) Iron deficiency anemia Assessment & Plan: Continue IV venofer and epogen. (6) Left hemiparesis (7) CAD (coronary artery disease) (8) CHF (congestive heart failure) (9) Syncope Assessment & Plan: ?due to severe anemia? (10) Diabetes mellitus Assessment & Plan: Cont novolog sliding scale. (11) Hypertension Assessment & Plan: Cont coreg and cozaar (12) Hypercholesteremia Assessment & Plan: Cont lipitor. (13) Pacemaker Status: not improved DELFIN MARTINEZ Nov 29, 2016 18:55
--- NOTE | 2016-11-29 19:34 | Consultation ---
Consult Note Consult Note HEMATOLOGY CONSULTATION DATE OF CONSULT: 11/29/16 REQUESTING MD: DELFIN MARTINEZ/ASHLEY CHIEF COMPLAINT: The patient is a 75-year-old female presents with syncope and anemia HISTORY OF PRESENT ILLNESS: The patient was admitted to [facility] on 07/30/2016 and in 09/2016 with a syncopal episode. The patient was found to have severe anemia. 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 WAS started on venofer and iron The patient states history of present illness began several days prior to admission. The patient began increasingly fatigue. The patient also complains of dysuria. The patient denies fever or chills. The patient denies chest pain. She passed out while getting a haircut and was noted to have a depressed hgb on admission. PAST MEDICAL HISTORY: Significant for, 1. Cerebrovascular accident 2. Left hemiparesis. 3. Coronary artery disease status post stent in 2014. 4. Congestive heart failure. 5. Diabetes type 2. 6. Hypertension. 7. Hypercholesterolemia. 8. History of deep venous thrombosis with IVC placement. 9. Pacemaker in situ. PAST SURGICAL HISTORY: Significant for, 1. Cholecystectomy. 2. Cervical spine fusion. 3. Lumbar spine surgery . 4. Bilateral total knee arthroplasty. 5. Carotid stenting for carotid stenosis. CURRENT MEDICATIONS: 1. Aspirin 81 mg one tablet p.o. daily. 2. Lipitor 20 mg one tablet p.o. daily. 3. Carvedilol 3.125 mg one tablet p.o. twice daily. 4. Plavix 75 mg one table p.o. daily. 5. Aricept 5 mg one tablet p.o. daily. 6. Iron sulfate 325 mg one tablet p.o. daily. 7. Forney 5/325 mg one tablet p.o. q.6 hours p.r.n. 8. Losartan 25 mg one tablet p.o. daily. 9. Metformin 500 mg one tablet p.o. twice daily. 10. Zoloft 100 mg one tablet p.o. daily. ALLERGIES: To latex and quinine. 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 The patient is . The patient denies tobacco or alcohol use. REVIEW OF SYSTEMS: Constitutional: The patient denies weight loss or weight gain. The patient denies fevers or chills. HEENT: The patient denies ear or throat pain. Cardiovascular: The patient denies palpitations or chest pain. Chest: The patient denies wheezes or shortness of breath. Abdomen: The patient denies nausea, vomiting, or constipation. Genitourinary: The patient denies dysuria or increased frequency of urination. Neuromuscular: The patient complains of generalized fatigue. The patient denies seizures. PHYSICAL EXAMINATION: VITAL SIGNS: Last 24 Hour Vital Signs Date Time Temp Pulse Resp B/P Pulse Ox O2 Delivery O2 Flow Rate FiO2 11/29/16 17:17 60 126/61 11/29/16 16:00 60 11/29/16 16:00 97.8 60 20 126/61 96 Nasal Cannula 2.0 11/29/16 11:44 97.5 60 20 144/73 100 Nasal Cannula 2.0 11/29/16 09:34 60 136/64 11/29/16 09:33 136/64 11/29/16 08:17 97.7 60 18 136/64 100 Nasal Cannula 2.0 11/29/16 08:09 Nasal Cannula 2.0 28 11/29/16 08:09 60 16 Room Air 2.0 28 11/29/16 08:09 99 Nasal Cannula 2.0 28 11/29/16 08:00 60 11/29/16 04:00 97.5 60 16 137/59 97 Nasal Cannula 2.0 11/29/16 04:00 70 11/29/16 00:00 60 11/29/16 00:00 98.1 62 18 156/65 100 Nasal Cannula 2.0 11/28/16 20:00 60 11/28/16 20:00 97.5 60 19 142/72 99 Nasal Cannula 2.0 GENERAL: The patient is well-developed and well-nourished black female HEENT: Eyes, pupils are equal and responsive to light and accommodation. Extraocular movements intact. NECK: Supple without lymphadenopathy. CHEST: Lungs are clear to auscultation bilaterally without wheezes or rales. CARDIOVASCULAR: Regular rhythm and rate. S1, S2 normal without murmurs, rubs, or gallops. ABDOMEN: Soft, nontender, and nondistended. Positive bowel sounds. No evidence of hepatosplenomegaly. Currently, no rebound or guarding. EXTREMITIES: Negative for clubbing, cyanosis, or or edema. RECTAL: Refused. GENITAL: Refused. NEUROLOGIC: Cranial nerves II through XII grossly intact without focal deficits. The patient's motor strength is 3/5 in the left and 5/5 in the right. Deep tendon reflexes are 2+ plantar. LABORATORY STUDIES: Laboratory Tests Test 11/29/16 07:00 White Blood Count 6.0 K/UL (4.8-10.8) Red Blood Count 1.99 M/UL (4.20-5.40) L Hemoglobin 5.7 G/DL (12.0-16.0) *L Hematocrit 18.9 % (37.0-47.0) L Mean Corpuscular Volume 95 FL (80-99) Mean Corpuscular Hemoglobin 28.6 PG (27.0-31.0) Mean Corpuscular Hemoglobin Concent 30.1 G/DL (32.0-36.0) L Red Cell Distribution Width 18.0 % (11.6-14.8) H Platelet Count 247 K/UL (150-450) Mean Platelet Volume 5.7 FL (6.5-10.1) L Neutrophils (%) (Auto) % (45.0-75.0) Lymphocytes (%) (Auto) % (20.0-45.0) Monocytes (%) (Auto) % (1.0-10.0) Eosinophils (%) (Auto) % (0.0-3.0) Basophils (%) (Auto) % (0.0-2.0) Differential Total Cells Counted 100 Neutrophils % (Manual) 76 % (45-75) H Lymphocytes % (Manual) 17 % (20-45) L Monocytes % (Manual) 2 % (1-10) Eosinophils % (Manual) 5 % (0-3) H Basophils % (Manual) 0 % (0-2) Band Neutrophils 0 % (0-8) Platelet Estimate Adequate Platelet Morphology Normal Hypochromasia 2+ Anisocytosis 2+ ASSESSMENT: This is a 75-year-old female, 1. Severe anemia 2/2 iron deficiency - retic count is high, but not sufficiently elevated given degree of anemia, patient begun on epo and iron in light of refusing blood transfusions (Jehivah's witness) and may take several days/weeks to improve. Patient has been admitted with similar symptoms before. Continues to refuse on blood transfusions. 2. Anemia r/o GI bleed - occult blood pending as is hgb electrophoresis (has not been completed before) 3. Syncope which is very likely 2/2 anemia 4. History of deep venous thrombosis s/p ivc filter 5. Left hemiplegia. 6. Coronary artery disease. 7. Congestive heart failure. 8. Diabetes type 2. 9. Hypertension. 10. Hypercholesterolemia. 11. CVA 12. Pacemaker. RECS: 1. Intravenous Venofer. 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 The patient has refused blood transfusions in the past. 2. Continue epogen sq 3. Hgb electrophoresis ordered (has not been completed before) 4. Anemia w/u has been reviewed 5. Have again stressed the importance of blood transfusions, she refuses 8. Status post inferior vena cava. 9. Appreciate consultation greatly, will continue to follow Sincerely, MD Magdi Boyle Roman L. Nov 29, 2016 19:34
[2016-11-29 20:00] VITALS: BP 125/54
[2016-11-29] MEDS ORDERED: Epogen (for non ESRD use) SUBQ SCH (21:00)
[2016-11-29] MEDS: Iron Sucrose 100 MG in NS 55 ML IVPB SCH (21:23)
--- NOTE | 2016-11-29 22:01 | Pulmonology Progress Note ---
Assessment/Plan Problems: (1) Symptomatic anemia (2) Syncope (3) Hypertension (4) Asthma (5) CAD (coronary artery disease) (6) Diabetes mellitus Assessment/Plan venofer, check ob titrate cardiac meds check echo might go to med/surg Subjective ROS Limited/Unobtainable: No Allergies: Coded Allergies: LATEX (Unverified Allergy, Mild, Rash, 09/03/14) QUININE (Unverified Allergy, Unknown, Rash Hives, 05/23/15) Quinine Sulfate Objective Last 24 Hour Vital Signs Date Time Temp Pulse Resp B/P Pulse Ox O2 Delivery O2 Flow Rate FiO2 11/29/16 20:00 97.8 60 21 125/54 99 Simple Mask 2.0 11/29/16 19:15 71 18 Room Air 2.0 28 11/29/16 19:15 94 Nasal Cannula 2.0 28 11/29/16 19:12 Nasal Cannula 2.0 28 11/29/16 17:17 60 126/61 11/29/16 16:00 60 11/29/16 16:00 97.8 60 20 126/61 96 Nasal Cannula 2.0 11/29/16 11:44 97.5 60 20 144/73 100 Nasal Cannula 2.0 11/29/16 09:34 60 136/64 11/29/16 09:33 136/64 11/29/16 08:17 97.7 60 18 136/64 100 Nasal Cannula 2.0 11/29/16 08:09 Nasal Cannula 2.0 28 11/29/16 08:09 60 16 Room Air 2.0 28 11/29/16 08:09 99 Nasal Cannula 2.0 28 11/29/16 08:00 60 11/29/16 04:00 97.5 60 16 137/59 97 Nasal Cannula 2.0 11/29/16 04:00 70 11/29/16 00:00 60 11/29/16 00:00 98.1 62 18 156/65 100 Nasal Cannula 2.0 Intake and Output 11/28/16 11/29/16 19:00 07:00 Intake Total 120 ml 275 ml Balance 120 ml 275 ml Intake Oral 120 ml 275 ml # Voids 2 4 # Bowel Movements 1 General Appearance: cachetic HEENT: normocephalic, atraumatic Respiratory/Chest: chest wall non-tender, lungs clear Cardiovascular: normal peripheral pulses, normal rate Abdomen: normal bowel sounds, soft, non tender, non distended Laboratory Tests 11/29/16 07:00: White Blood Count 6.0, Red Blood Count 1.99L, Hemoglobin 5.7*L, Hematocrit 18.9L , Mean Corpuscular Volume 95, Mean Corpuscular Hemoglobin 28.6, Mean Corpuscular Hemoglobin Concent 30.1L, Red Cell Distribution Width 18.0H, Platelet Count 247, Mean Platelet Volume 5.7L, Neutrophils (%) (Auto) , Lymphocytes (%) (Auto) , Monocytes (%) (Auto) , Eosinophils (%) (Auto) , Basophils (%) (Auto) , Differential Total Cells Counted 100, Neutrophils % ( Manual) 76H, Lymphocytes % (Manual) 17L, Monocytes % (Manual) 2, Eosinophils % ( Manual) 5H, Basophils % (Manual) 0, Band Neutrophils 0, Platelet Estimate Adequate, Platelet Morphology Normal, Hypochromasia 2+, Anisocytosis 2+ 11/29/16 09:30: Hemoglobin A [Pending], Hemoglobin A2 [Pending], Hemoglobin C [Pending], Hemoglobin F () [Pending], Hemoglobin S [Pending], Variant Hemoglobin [ Pending], Hemoglobin Electrophoresis Interp [Pending], Hemoglobin Interpretation [Pending], Hemoglobin Solubility [Pending] Current Medications Medications (Trade) Dose Ordered Sig/Don Route PRN Reason Start Time Stop Time Status Last Admin Dose Admin Acetaminophen (Tylenol) 650 mg Q4H PRN ORAL fever>100.5 11/27/16 18:30 12/27/16 18:29 Al Hydroxide/Mg Hydroxide (Mylanta II) 30 ml Q6H PRN ORAL dyspepsia 11/27/16 18:00 12/27/16 17:59 Albuterol/ Ipratropium (DuoNeb 0.5-3(2.5)mg/3ml) 3 ml Q4H PRN HHN Shortness of Breath 11/27/16 18:30 12/02/16 18:29 Atorvastatin Calcium (Lipitor) 20 mg BEDTIME ORAL 11/27/16 21:00 12/27/16 20:59 11/29/16 21:22 Carvedilol (Coreg) 3.125 mg BID ORAL 11/27/16 19:00 12/27/16 18:59 11/29/16 17:17 Clonidine HCl (Catapres) 0.1 mg Q4H PRN ORAL for sbp more than 160 11/27/16 18:30 12/27/16 18:29 Dextrose (Dextrose 50%) STAT PRN IV Hypoglycemia 11/27/16 18:30 12/27/16 18:29 Epoetin Barak (Procrit (for non ESRD use)) 10,000 units SUN-SUN-SUN SUBQ 11/29/16 21:00 11/29/16 23:59 11/29/16 21:22 Epoetin Barak (Procrit (for non ESRD use)) 10,000 units SUN-SUN-SUN SUBQ 12/01/16 21:00 12/31/16 20:59 Folic Acid (Folate) 1 mg DAILY ORAL 11/29/16 09:00 12/29/16 08:59 11/29/16 09:34 Insulin Aspart BEFORE MEALS AND HS SUBQ 11/27/16 19:00 12/27/16 18:59 11/29/16 21:49 Iron Sucrose/ Sodium Chloride (Venofer/Sodium Chloride) 60 ml @ 240 mls/hr BEDTIME IVPB 11/28/16 22:00 12/02/16 21:14 11/29/16 21:23 Lorazepam (Ativan 2mg/ml 1ml) 0.5 mg Q4H PRN IV For Anxiety 11/27/16 18:30 12/04/16 18:29 Losartan Potassium (Cozaar) 25 mg DAILY ORAL 11/28/16 09:00 12/28/16 08:59 11/29/16 09:33 Morphine Sulfate (Morphine Sulfate) 1 mg Q4H PRN IVP For Pain 7-10 11/27/16 18:30 12/04/16 18:29 Nitroglycerin (Ntg) 0.4 mg Q5M X 3 DOSES PRN SL Prn Chest Pain 11/27/16 18:30 12/27/16 18:29 Ondansetron HCl (Zofran) 4 mg Q6H PRN IVP Nausea & Vomiting 11/27/16 18:30 12/27/16 18:29 Polyethylene Glycol (Miralax) 17 gm HSPRN PRN ORAL Constipation 11/27/16 21:00 12/27/16 20:59 Sertraline HCl (Zoloft) 100 mg DAILY ORAL 11/28/16 09:00 12/28/16 08:59 11/29/16 09:33 Temazepam (Restoril) 15 mg HSPRN PRN ORAL Insomnia 11/27/16 21:00 12/04/16 20:59 11/29/16 21:50 MARLENY TURPIN Nov 29, 2016 22:01
[2016-11-30] VITALS: BP 136/83
[2016-11-30] MEDS ORDERED: Nitroglycerin Subl 0.4mg tab (Bottle Of 25) SL PRN (03:45)
[2016-11-30 04:00] VITALS: BP 139/72
[2016-11-30] MEDS ORDERED: Mylanta II UD 30ml ORAL PRN (06:00)
[2016-11-30] MEDS ORDERED: LORazepam Inj 2mg/ml 1ml IV PRN (06:30)
[2016-11-30] MEDS ORDERED: Morphine Sulfate 2mg/ml Inj IVP PRN (06:30)
[2016-11-30] MEDS: NovoLOG Insulin Flexpen SUBQ SCH ×4 (06:30→21:33)
[2016-11-30] MEDS ORDERED: DuoNeb 0.5-3(2.5)mg/3ml neb HHN PRN (06:30)
[2016-11-30 07:48] VITALS: BP 127/63
[2016-11-30] MEDS: Losartan 25mg tab ORAL SCH (08:12)
[2016-11-30] MEDS: Sertraline 100mg tab ORAL SCH (08:13)
--- NOTE | 2016-11-30 08:27 | Cardiology Report ---
APPROVED REPORT EXAM: Two-dimensional and M-mode echocardiogram with Doppler and color Doppler. INDICATION Left ventricular function Technically difficult study due to poor acoustic windows. M-mode measurements not obtainable due to cardiac position. Anteroseptal wall akinesia as well as apex adn sistal inferior wall Left ventricular ejection fraction estimated to be 35-40%. No evidence of left ventricular hypertrophy. Large posterior pleural effusion. Small pericardial effusion. Right cardiac chamber sizes are within normal limits. Mild left atrial enlargement by 2D. Focal aortic valve sclerosis with adequate cusp excursion Thickened mitral valve leaflets with normal excursion. Moderate mitral annulus and aortic root calcification. Pulmonic valve not well visualized. Normal tricuspid valve structure. IVC is normal in size with physiologic collapse. Probable pacemaker wire present in the right side chambers. atrial septal aneurysm A color flow and spectral Doppler study was performed and revealed: No aortic regurgitation. Mild mitral regurgitation (2 Jets). Left ventricular diastolic dysfunction grade 1. Mild tricuspid regurgitation. Tricuspid systolic velocities suggests peak right ventricular systolic pressure of 31 mmHg
[2016-11-30 11:27] VITALS: BP 135/72
--- NOTE | 2016-11-30 15:43 | General Progress Note ---
Assessment/Plan Assessment/Plan ASSESSMENT: 1. Severe anemia 2/2 iron deficiency - retic count is high, but not sufficiently elevated given degree of anemia, patient begun on epo and iron in light of refusing blood transfusions (Jehivah's witness) and may take several days/weeks to improve. Patient has been admitted with similar symptoms before. Continues to refuse on blood transfusions. 2. Anemia r/o GI bleed - occult blood pending as is hgb electrophoresis (has not been completed before) 3. Syncope which is very likely 2/2 anemia 4. History of deep venous thrombosis s/p ivc filter 5. Left hemiplegia. 6. Coronary artery disease. 7. Congestive heart failure. 8. Diabetes type 2. 9. Hypertension. 10. Hypercholesterolemia. 11. CVA 12. Pacemaker. RECS: 1. Continue IV iron. The patient is a Bahai. Has refused blood transfusions in the past 2. Continue epogen sq 3. Hgb electrophoresis ordered (has not been completed before) 4. Anemia w/u has been reviewed 5. Have again stressed the importance of blood transfusions, she refuses 8. Status post inferior vena cava filter 9. Appreciate consultation greatly, will continue to follow Sincerely, Dg Fairbanks MD Subjective Constitutional: Reports: no symptoms HEENT: Reports: no symptoms Cardiovascular: Reports: no symptoms Respiratory: Reports: no symptoms Gastrointestinal/Abdominal: Reports: poor appetite Genitourinary: Reports: no symptoms Endocrine: Reports: no symptoms Hematologic/Lymphatic: Reports: anemia Allergies: Coded Allergies: LATEX (Unverified Allergy, Mild, Rash, 09/03/14) QUININE (Unverified Allergy, Unknown, Rash Hives, 05/23/15) Quinine Sulfate Subjective stable, no events, no fevers, no chills, no night sweats Objective Last 24 Hour Vital Signs Date Time Temp Pulse Resp B/P Pulse Ox O2 Delivery O2 Flow Rate FiO2 11/30/16 11:27 97.5 60 18 135/72 100 Nasal Cannula 11/30/16 08:12 127/63 11/30/16 08:12 60 127/63 11/30/16 07:48 97.7 60 14 127/63 99 Nasal Cannula 11/30/16 04:00 97.3 66 20 139/72 97 Nasal Cannula 2.0 11/30/16 00:00 97.9 60 20 136/83 99 Nasal Cannula 2.0 11/29/16 20:00 97.8 60 21 125/54 99 Simple Mask 2.0 11/29/16 20:00 60 11/29/16 19:15 71 18 Room Air 2.0 28 11/29/16 19:15 94 Nasal Cannula 2.0 28 11/29/16 19:12 Nasal Cannula 2.0 28 11/29/16 17:17 60 126/61 11/29/16 16:00 60 11/29/16 16:00 97.8 60 20 126/61 96 Nasal Cannula 2.0 Intake and Output 11/29/16 11/30/16 19:00 07:00 Intake Total 120 ml 500 ml Balance 120 ml 500 ml Intake Oral 120 ml 260 ml IV Total 240 ml # Voids 2 4 # Bowel Movements 2 Height (Feet): 5 Height (Inches): 5.00 Weight (Pounds): 145 General Appearance: alert EENT: TMs normal Neck: supple Cardiovascular: normal rate Respiratory/Chest: no respiratory distress Abdomen: soft Extremities: non-tender Edema: 1+ Leg (L), 1+ Leg (R) Edema: mild edema Neurologic: no motor/sensory deficits Skin: warm/dry Dg Fairbanks Nov 30, 2016 15:43
[2016-11-30 16:00] VITALS: BP 136/66
--- NOTE | 2016-11-30 17:48 | Consultation ---
DATE OF CONSULTATION: 11/30/2016 GASTROENTEROLOGY CONSULTATION CHIEF COMPLAINT: Anemia. HISTORY OF PRESENT ILLNESS: This is a very pleasant female admitted to the hospital with syncope and severe anemia. The patient apparently had anemia before, history of Temple. No prior history of obvious GI bleeding in prior admissions. Most of her stool for occult blood was negative, only one of them in September 2016 actually was positive. The patient at this time is very anemic with hemoglobin in 5 ranges. PAST MEDICAL HISTORY: 1. CVA. 2. History of coronary artery disease status post stenting in 2014. 3. History of pacemaker placement. 4. CHF. 5. Diabetes type 2. 6. Hypertension. 7. Hypercholesterolemia. 8. History of DVT status post IVC filter placement. PAST SURGICAL HISTORY: 1. Cholecystectomy. 2. Cervical spine fusion. 3. Lumbar spine surgery. 4. Bilateral total knee arthroplasty. 5. stenosis requiring stenting. MEDICATIONS: Please see medication reconciliation list. ALLERGY: Lasix and quinine. SOCIAL HISTORY: The patient denies any tobacco or alcohol abuse. The patient is Temple. REVIEW OF SYSTEMS: A 10-point review of system was performed and pertinent positives in history of present illness. PHYSICAL EXAMINATION: GENERAL: This is a well-developed female. VITAL SIGNS: Temperature is 97.7 degrees, pulse 60, respirations 14, and blood pressure is 127/63. HEENT: Normocephalic and atraumatic. Sclerae pale. NECK: Supple. No evidence of lymphadenopathy. CARDIOVASCULAR: Regular rhythm. Plus S1 and S2. LUNGS: Decreased breath sounds bilaterally. ABDOMEN: Soft and nontender. No rebound. No guarding. EXTREMITIES: No cyanosis. No clubbing. No edema. LABORATORY AND DIAGNOSTIC DATA: WBC 8.6, hemoglobin 5.7, hematocrit 18.9 and platelet count is 247,000. ASSESSMENT AND PLAN: This is a 76-year-old female with iron deficiency anemia, this is of course the possibility of the gastrointestinal bleeding. At this time, the patient is refusing blood transfusion because she is Temple. Stool for occult blood pending. We will recommend the CEA level to be sent. I will start the patient on IV iron and Epogen. Monitor counts on daily basis. At this time with hemoglobin of 5.7, I doubt that she will be stable for anesthesia for procedures. If the stool OB comes back positive, we will consider doing if anesthesia clears her. Meanwhile, continue current medication. Aquilino Diaz M.D. DR: KIM JOB#: [id number] CC:
--- NOTE | 2016-11-30 18:09 | Internal Med Progress Note ---
Subjective Date of Service: Nov 30, 2016 Physician Name Martinez,Delfin Attending Physician Lobito Jones MD Current Medications Medications (Trade) Dose Ordered Sig/Don Route PRN Reason Start Time Stop Time Status Last Admin Dose Admin Acetaminophen (Tylenol) 650 mg Q4H PRN ORAL fever>100.5 11/30/16 06:30 12/30/16 06:29 Al Hydroxide/Mg Hydroxide (Mylanta II) 30 ml Q6H PRN ORAL dyspepsia 11/30/16 06:00 12/30/16 05:59 Albuterol/ Ipratropium (DuoNeb 0.5-3(2.5)mg/3ml) 3 ml Q4H PRN HHN Shortness of Breath 11/30/16 06:30 12/05/16 06:29 Atorvastatin Calcium (Lipitor) 20 mg BEDTIME ORAL 11/30/16 21:00 12/30/16 20:59 Carvedilol (Coreg) 3.125 mg BID ORAL 11/30/16 09:00 12/30/16 08:59 11/30/16 17:16 Clonidine HCl (Catapres) 0.1 mg Q4H PRN ORAL for sbp more than 160 11/30/16 06:30 12/30/16 06:29 Dextrose (Dextrose 50%) STAT PRN IV Hypoglycemia 11/30/16 18:30 12/30/16 18:29 Epoetin Barak (Procrit (for non ESRD use)) 10,000 units MON-WED-FRI SUBQ 12/01/16 21:00 12/31/16 20:59 Folic Acid (Folate) 1 mg DAILY ORAL 11/30/16 09:00 12/30/16 08:59 11/30/16 08:13 Insulin Aspart (NovoLOG) BEFORE MEALS AND HS SUBQ 11/30/16 06:30 12/30/16 06:29 11/30/16 17:22 Iron Sucrose/ Sodium Chloride (Venofer/Sodium Chloride) 60 ml @ 240 mls/hr BEDTIME IVPB 11/30/16 21:00 12/02/16 21:01 Lorazepam (Ativan 2mg/ml 1ml) 0.5 mg Q4H PRN IV For Anxiety 11/30/16 06:30 12/07/16 06:29 Losartan Potassium (Cozaar) 25 mg DAILY ORAL 11/30/16 09:00 12/30/16 08:59 11/30/16 08:12 Morphine Sulfate (Morphine Sulfate) 1 mg Q4H PRN IVP For Pain 7-10 11/30/16 06:30 12/07/16 06:29 Nitroglycerin (Ntg) 0.4 mg Q5M X 3 DOSES PRN SL Prn Chest Pain 11/30/16 03:45 12/30/16 03:44 Ondansetron HCl (Zofran) 4 mg Q6H PRN IVP Nausea & Vomiting 11/30/16 06:30 12/30/16 06:29 Polyethylene Glycol (Miralax) 17 gm HSPRN PRN ORAL Constipation 11/30/16 21:00 12/30/16 20:59 Sertraline HCl (Zoloft) 100 mg DAILY ORAL 11/30/16 09:00 12/30/16 08:59 11/30/16 08:13 Temazepam (Restoril) 15 mg HSPRN PRN ORAL Insomnia 11/30/16 21:00 12/07/16 20:59 Allergies: Coded Allergies: LATEX (Unverified Allergy, Mild, Rash, 09/03/14) QUININE (Unverified Allergy, Unknown, Rash Hives, 05/23/15) Quinine Sulfate ROS Limited/Unobtainable: No Constitutional: Reports: no symptoms HEENT: Reports: no symptoms Cardiovascular: Reports: no symptoms Respiratory: Reports: no symptoms Gastrointestinal/Abdominal: Reports: no symptoms Genitourinary: Reports: no symptoms Neurologic/Psychiatric: Reports: no symptoms Subjective 75 YO F admitted with syncope. Now severe anemia. Muslim; refused transfusion. Cover for Int Med-Dr Jones. Objective Last Vital Signs Date Time Temp Pulse Resp B/P Pulse Ox O2 Delivery O2 Flow Rate FiO2 11/30/16 17:16 60 136/66 11/30/16 16:00 96.8 20 100 Nasal Cannula 2.0 11/29/16 19:15 28 Intake and Output 11/29/16 11/30/16 19:00 07:00 Intake Total 120 ml 500 ml Balance 120 ml 500 ml Intake Oral 120 ml 260 ml IV Total 240 ml # Voids 2 4 # Bowel Movements 2 Objective General Appearance: WD/WN, no apparent distress, alert, moderate distress EENT: normal ENT inspection Neck: non-tender, normal alignment, supple Cardiovascular: normal peripheral pulses, normal rate, regular rhythm, no gallop/murmur, no JVD Respiratory/Chest: chest wall non-tender, lungs clear, normal breath sounds, no respiratory distress, no accessory muscle use Abdomen: normal bowel sounds, non tender, soft, no organomegaly, no mass Extremities: normal range of motion Neurologic: director mobile II-XII grossly normal, no motor/sensory deficits Skin: normal pigmentation, warm/dry Assessment/Plan Problem List: (1) DVT (deep venous thrombosis) Assessment & Plan: S/P IVC (2) Severe anemia Assessment & Plan: Patient refused transfusion due to Muslim. See hematology consult. Cont IV venofer and epogen subcutaneously. (3) Patient is Muslim (4) Cerebral vascular disease (5) Iron deficiency anemia Assessment & Plan: See GI note. May require endoscopy/colonoscopy for possible GI bleed. Continue IV venofer and epogen. (6) Left hemiparesis (7) CAD (coronary artery disease) (8) CHF (congestive heart failure) (9) Syncope Assessment & Plan: ?due to severe anemia? (10) Diabetes mellitus Assessment & Plan: Cont novolog sliding scale. (11) Hypertension Assessment & Plan: Cont coreg and cozaar (12) Hypercholesteremia Assessment & Plan: Cont lipitor. (13) Pacemaker Status: not improved DELFIN MARTINEZ Nov 30, 2016 18:09
[2016-11-30 19:00] VITALS: BP 144/69
[2016-11-30] MEDS ORDERED: Miralax 17gm pkt ORAL PRN (21:00)
[2016-11-30] MEDS ORDERED: Iron Sucrose 100 MG in NS 55 ML IVPB SCH (21:00)
--- NOTE | 2016-11-30 23:07 | Pulmonology Progress Note ---
Assessment/Plan Problems: (1) Symptomatic anemia (2) Syncope (3) Hypertension (4) Asthma (5) CAD (coronary artery disease) (6) Diabetes mellitus Assessment/Plan venofer, check ob titrate cardiac meds check echo might go to med/surg Subjective ROS Limited/Unobtainable: No Constitutional: Reports: anorexia, fatigue Respiratory: Reports: dry cough, dyspnea at rest, shortness of breath, wheezing Neurologic: Reports: confusion, syncope, weakness Allergies: Coded Allergies: LATEX (Unverified Allergy, Mild, Rash, 09/03/14) QUININE (Unverified Allergy, Unknown, Rash Hives, 05/23/15) Quinine Sulfate Objective Last 24 Hour Vital Signs Date Time Temp Pulse Resp B/P Pulse Ox O2 Delivery O2 Flow Rate FiO2 11/30/16 21:20 97 Nasal Cannula 2.0 28 11/30/16 21:20 Nasal Cannula 2.0 28 11/30/16 21:20 79 20 Nasal Cannula 2.0 28 11/30/16 19:00 98.1 60 20 144/69 99 Nasal Cannula 2.0 11/30/16 17:16 60 136/66 11/30/16 16:00 96.8 60 20 136/66 100 Nasal Cannula 2.0 11/30/16 11:27 97.5 60 18 135/72 100 Nasal Cannula 11/30/16 08:12 127/63 11/30/16 08:12 60 127/63 11/30/16 07:48 97.7 60 14 127/63 99 Nasal Cannula 11/30/16 06:44 Nasal Cannula 2.0 11/30/16 06:43 96 Nasal Cannula 2.0 11/30/16 06:42 76 20 Nasal Cannula 2.0 11/30/16 04:00 97.3 66 20 139/72 97 Nasal Cannula 2.0 11/30/16 00:00 97.9 60 20 136/83 99 Nasal Cannula 2.0 Intake and Output 11/29/16 11/30/16 19:00 07:00 Intake Total 120 ml 500 ml Balance 120 ml 500 ml Intake Oral 120 ml 260 ml IV Total 240 ml # Voids 2 4 # Bowel Movements 2 General Appearance: no acute distress HEENT: normocephalic, atraumatic, PERRL Respiratory/Chest: chest wall non-tender, decreased breath sounds, accessory muscle use, expiratory wheezing Breasts: no masses Cardiovascular: normal peripheral pulses, normal rate, regular rhythm, no JVD Abdomen: normal bowel sounds, soft, non tender, no organomegaly Genitourinary: normal external genitalia Extremities: no cyanosis Skin: no rash Neurologic/Psychiatric: platform 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 II-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 grossly normal, no motor/sensory deficits Current Medications Medications (Trade) Dose Ordered Sig/Don Route PRN Reason Start Time Stop Time Status Last Admin Dose Admin Acetaminophen (Tylenol) 650 mg Q4H PRN ORAL fever>100.5 11/30/16 06:30 12/30/16 06:29 Al Hydroxide/Mg Hydroxide (Mylanta II) 30 ml Q6H PRN ORAL dyspepsia 11/30/16 06:00 12/30/16 05:59 Albuterol/ Ipratropium (DuoNeb 0.5-3(2.5)mg/3ml) 3 ml Q4H PRN HHN Shortness of Breath 11/30/16 06:30 12/05/16 06:29 Atorvastatin Calcium (Lipitor) 20 mg BEDTIME ORAL 11/30/16 21:00 12/30/16 20:59 11/30/16 21:09 Carvedilol (Coreg) 3.125 mg BID ORAL 11/30/16 09:00 12/30/16 08:59 11/30/16 17:16 Clonidine HCl (Catapres) 0.1 mg Q4H PRN ORAL for sbp more than 160 11/30/16 06:30 12/30/16 06:29 Dextrose (Dextrose 50%) STAT PRN IV Hypoglycemia 11/30/16 18:30 12/30/16 18:29 Epoetin Barak (Procrit (for non ESRD use)) 10,000 units SUN-WED-FRI SUBQ 12/01/16 21:00 12/31/16 20:59 Folic Acid (Folate) 1 mg DAILY ORAL 11/30/16 09:00 12/30/16 08:59 11/30/16 08:13 Insulin Aspart (NovoLOG) BEFORE MEALS AND HS SUBQ 11/30/16 06:30 12/30/16 06:29 11/30/16 21:33 Iron Sucrose/ Sodium Chloride (Venofer/Sodium Chloride) 60 ml @ 240 mls/hr BEDTIME IVPB 11/30/16 21:00 12/02/16 21:01 11/30/16 21:09 Lorazepam (Ativan 2mg/ml 1ml) 0.5 mg Q4H PRN IV For Anxiety 11/30/16 06:30 12/07/16 06:29 Losartan Potassium (Cozaar) 25 mg DAILY ORAL 11/30/16 09:00 12/30/16 08:59 11/30/16 08:12 Morphine Sulfate (Morphine Sulfate) 1 mg Q4H PRN IVP For Pain 7-10 11/30/16 06:30 12/07/16 06:29 11/30/16 21:13 Nitroglycerin (Ntg) 0.4 mg Q5M X 3 DOSES PRN SL Prn Chest Pain 11/30/16 03:45 12/30/16 03:44 Ondansetron HCl (Zofran) 4 mg Q6H PRN IVP Nausea & Vomiting 11/30/16 06:30 12/30/16 06:29 Polyethylene Glycol (Miralax) 17 gm HSPRN PRN ORAL Constipation 11/30/16 21:00 12/30/16 20:59 Sertraline HCl (Zoloft) 100 mg DAILY ORAL 11/30/16 09:00 12/30/16 08:59 11/30/16 08:13 Temazepam (Restoril) 15 mg HSPRN PRN ORAL Insomnia 11/30/16 21:00 12/07/16 20:59 MARLENY TURPIN Nov 30, 2016 23:07
[2016-12-01] VITALS: BP 141/66
[2016-12-01 04:00] VITALS: BP 144/70
[2016-12-01] MEDS: NovoLOG Insulin Flexpen SUBQ SCH ×2 (06:11→12:10)
[2016-12-01 07:32] LABS: MEAN CORPUSCULAR HEMOGLOBIN 28.3 PG (27.0-31.0); MEAN CORPUSCULAR HGB CONC 29.6 G/DL (32.0-36.0); MEAN CORPUSCULAR VOLUME 96 FL (80-99); MEAN PLATELET VOLUME 5.7 FL (6.5-10.1); PLATELET COUNT 253 K/UL (150-450); RED BLOOD COUNT 2.07 M/UL (4.20-5.40); RED CELL DISTRIBUTION WIDTH 18.8 % (11.6-14.8); WHITE BLOOD COUNT 6.4 K/UL (4.8-10.8)
[2016-12-01 07:42] LABS: ANION GAP 13 (5-15); CALCIUM 8.7 mg/dL (8.6-10.2); CARBON DIOXIDE 26 mEQ/L (20-30); CHLORIDE 103 mEQ/L (98-107); CREATININE 0.5 mg/dL (0.5-0.9); HEMOLYSIS 1; POTASSIUM 3.9 mEQ/L (3.4-4.9); SODIUM 142 mEQ/L (135-145)
[2016-12-01 07:43] VITALS: BP 155/57
[2016-12-01] MEDS: Sertraline 100mg tab ORAL SCH (08:28)
[2016-12-01] MEDS: Losartan 25mg tab ORAL SCH (08:29)
[2016-12-01 08:41] LABS: ANISOCYTOSIS 2+; BAND NEUTROPHILS % (MANUAL) 0 % (0-8); BASOPHILS % (MANUAL) 0 % (0-2); EOSINOPHILS % (MANUAL) 5 % (0-3); HYPOCHROMASIA 4+; LYMPHOCYTES % (MANUAL) 17 % (20-45); NEUTROPHILS % (MANUAL) 72 % (45-75); PLATELET ESTIMATE ADEQUATE; PLATELET MORPHOLOGY NORMAL; TOTAL CELLS COUNTED 100
--- NOTE | 2016-12-01 11:24 | General Progress Note ---
Assessment/Plan Problem List: (1) History of heart artery stent ICD Codes: Z95.5 - History of heart artery stent SNOMED: 949691219 (2) Patient is Amish ICD Codes: Z78.9 - Other specified health status SNOMED: 00003660 (3) Pacemaker ICD Codes: Z95.0 - Pacemaker SNOMED: 706385874 (4) Anemia ICD Codes: D64.9 - Anemia, unspecified SNOMED: 194053976 Assessment/Plan monitor H&H iv iron fu stool OB can not scope with this low HGB and cardiac problems will fu Subjective ROS Limited/Unobtainable: Yes Allergies: Coded Allergies: LATEX (Unverified Allergy, Mild, Rash, 09/03/14) QUININE (Unverified Allergy, Unknown, Rash Hives, 05/23/15) Quinine Sulfate Subjective no event Objective Last 24 Hour Vital Signs Date Time Temp Pulse Resp B/P Pulse Ox O2 Delivery O2 Flow Rate FiO2 12/01/16 08:29 155/57 12/01/16 08:28 61 155/57 12/01/16 07:43 97.3 61 16 155/57 96 Room Air 12/01/16 04:00 97.5 60 20 144/70 65 Nasal Cannula 2.0 12/01/16 00:00 98.1 60 20 141/66 100 Nasal Cannula 2.0 11/30/16 21:20 97 Nasal Cannula 2.0 28 11/30/16 21:20 Nasal Cannula 2.0 28 11/30/16 21:20 79 20 Nasal Cannula 2.0 28 11/30/16 19:00 98.1 60 20 144/69 99 Nasal Cannula 2.0 11/30/16 17:16 60 136/66 11/30/16 16:00 96.8 60 20 136/66 100 Nasal Cannula 2.0 11/30/16 11:27 97.5 60 18 135/72 100 Nasal Cannula Intake and Output 11/30/16 12/01/16 19:00 07:00 Intake Total 900 ml 360 ml Balance 900 ml 360 ml Intake Oral 900 ml 300 ml IV Total 60 ml # Voids 2 9 Laboratory Tests 12/01/16 06:10: White Blood Count 6.4, Red Blood Count 2.07L, Hemoglobin 5.9*L, Hematocrit 19.8L , Mean Corpuscular Volume 96, Mean Corpuscular Hemoglobin 28.3, Mean Corpuscular Hemoglobin Concent 29.6L, Red Cell Distribution Width 18.8H, Platelet Count 253, Mean Platelet Volume 5.7L, Neutrophils (%) (Auto) , Lymphocytes (%) (Auto) , Monocytes (%) (Auto) , Eosinophils (%) (Auto) , Basophils (%) (Auto) , Differential Total Cells Counted 100, Neutrophils % ( Manual) 72, Lymphocytes % (Manual) 17L, Monocytes % (Manual) 6, Eosinophils % ( Manual) 5H, Basophils % (Manual) 0, Band Neutrophils 0, Platelet Estimate Adequate, Platelet Morphology Normal, Hypochromasia 4+, Anisocytosis 2+, Sodium Level 142, Potassium Level 3.9, Chloride Level 103, Carbon Dioxide Level 26, Anion Gap 13, Blood Urea Nitrogen 16, Creatinine 0.5, Estimat Glomerular Filtration Rate , Glucose Level 76, Calcium Level 8.7, Carcinoembryonic Antigen 3.0 Height (Feet): 5 Height (Inches): 5.00 Weight (Pounds): 145 General Appearance: alert EENT: normal ENT inspection Neck: supple Cardiovascular: normal rate Respiratory/Chest: decreased breath sounds Abdomen: normal bowel sounds, non tender, soft Extremities: non-tender ORIANA CANALES Dec 01, 2016 11:24
[2016-12-01 11:41] VITALS: BP 130/58
[2016-12-01 13:12] LABS: HEMOGLOBIN A 98.2 % (94.0-98.0); HEMOGLOBIN A2 1.8 % (0.7-3.1)
--- NOTE | 2016-12-01 17:35 | Internal Med Progress Note ---
Subjective Date of Service: Dec 01, 2016 Physician Name Lorne Martinez Attending Physician Lobito Jones MD Allergies: Coded Allergies: LATEX (Unverified Allergy, Mild, Rash, 09/03/14) QUININE (Unverified Allergy, Unknown, Rash Hives, 05/23/15) Quinine Sulfate ROS Limited/Unobtainable: No Constitutional: Reports: no symptoms HEENT: Reports: no symptoms Cardiovascular: Reports: no symptoms Respiratory: Reports: no symptoms Gastrointestinal/Abdominal: Reports: no symptoms Genitourinary: Reports: no symptoms Neurologic/Psychiatric: Reports: no symptoms Subjective 75 YO F admitted with syncope. Now severe anemia. Voodoo; refused transfusion. Cover for [facility]-Dr Jones. Await discharge to home today. Objective Last Vital Signs Date Time Temp Pulse Resp B/P Pulse Ox O2 Delivery O2 Flow Rate FiO2 12/01/16 11:41 97.7 60 14 130/58 98 Nasal Cannula 12/01/16 04:00 2.0 11/30/16 21:20 28 Laboratory Tests Test 12/01/16 06:10 White Blood Count 6.4 K/UL (4.8-10.8) Red Blood Count 2.07 M/UL (4.20-5.40) L Hemoglobin 5.9 G/DL (12.0-16.0) *L Hematocrit 19.8 % (37.0-47.0) L Mean Corpuscular Volume 96 FL (80-99) Mean Corpuscular Hemoglobin 28.3 PG (27.0-31.0) Mean Corpuscular Hemoglobin Concent 29.6 G/DL (32.0-36.0) L Red Cell Distribution Width 18.8 % (11.6-14.8) H Platelet Count 253 K/UL (150-450) Mean Platelet Volume 5.7 FL (6.5-10.1) L Neutrophils (%) (Auto) % (45.0-75.0) Lymphocytes (%) (Auto) % (20.0-45.0) Monocytes (%) (Auto) % (1.0-10.0) Eosinophils (%) (Auto) % (0.0-3.0) Basophils (%) (Auto) % (0.0-2.0) Differential Total Cells Counted 100 Neutrophils % (Manual) 72 % (45-75) Lymphocytes % (Manual) 17 % (20-45) L Monocytes % (Manual) 6 % (1-10) Eosinophils % (Manual) 5 % (0-3) H Basophils % (Manual) 0 % (0-2) Band Neutrophils 0 % (0-8) Platelet Estimate Adequate Platelet Morphology Normal Hypochromasia 4+ Anisocytosis 2+ Sodium Level 142 mEQ/L (135-145) Potassium Level 3.9 mEQ/L (3.4-4.9) Chloride Level 103 mEQ/L (98-107) Carbon Dioxide Level 26 mEQ/L (20-30) Anion Gap 13 (5-15) Blood Urea Nitrogen 16 mg/dL (7-23) Creatinine 0.5 mg/dL (0.5-0.9) Estimat Glomerular Filtration Rate mL/min (>60) Glucose Level 76 mg/dL (74-106) Calcium Level 8.7 mg/dL (8.6-10.2) Carcinoembryonic Antigen 3.0 ng/mL Intake and Output 11/30/16 12/01/16 19:00 07:00 Intake Total 900 ml 360 ml Balance 900 ml 360 ml Intake Oral 900 ml 300 ml IV Total 60 ml # Voids 2 9 Objective General Appearance: WD/WN, no apparent distress, alert, moderate distress EENT: normal ENT inspection Neck: non-tender, normal alignment, supple Cardiovascular: normal peripheral pulses, normal rate, regular rhythm, no gallop/murmur, no JVD Respiratory/Chest: chest wall non-tender, lungs clear, normal breath sounds, no respiratory distress, no accessory muscle use Abdomen: normal bowel sounds, non tender, soft, no organomegaly, no mass Extremities: normal range of motion Neurologic: media reporter II-XII grossly normal, no motor/sensory deficits Skin: normal pigmentation, warm/dry Assessment/Plan Problem List: (1) DVT (deep venous thrombosis) Assessment & Plan: S/P IVC (2) Severe anemia Assessment & Plan: Patient refused transfusion due to Voodoo. See hematology consult. Cont IV venofer and epogen subcutaneously. (3) Patient is Voodoo (4) Cerebral vascular disease (5) Iron deficiency anemia Assessment & Plan: See GI note. May require endoscopy/colonoscopy for possible GI bleed. Continue IV venofer and epogen. (6) Left hemiparesis (7) CAD (coronary artery disease) (8) CHF (congestive heart failure) (9) Syncope Assessment & Plan: ?due to severe anemia? (10) Diabetes mellitus Assessment & Plan: Cont novolog sliding scale. (11) Hypertension Assessment & Plan: Cont coreg and cozaar (12) Hypercholesteremia Assessment & Plan: Cont lipitor. (13) Pacemaker Assessment/Plan Discharge home today. LORNE MARTINEZ Dec 01, 2016 17:35
--- NOTE | 2016-12-01 20:02 | General Progress Note ---
Assessment/Plan Assessment/Plan ASSESSMENT: 1. Severe anemia 2/2 iron deficiency - retic count is high, but not sufficiently elevated given degree of anemia, patient begun on epo and iron in light of refusing blood transfusions (Jehivah's witness) and may take several days/weeks to improve. Patient has been admitted with similar symptoms before. Continues to refuse on blood transfusions. 2. Anemia r/o GI bleed - occult blood pending as is hgb electrophoresis (has not been completed before) 3. Syncope which is very likely 2/2 anemia 4. History of deep venous thrombosis s/p ivc filter 5. Left hemiplegia. 6. Coronary artery disease. 7. Congestive heart failure. 8. Diabetes type 2. 9. Hypertension. 10. Hypercholesterolemia. 11. CVA 12. Pacemaker. RECS: 1. Continue IV iron. The patient is a [employer]. Has refused blood transfusions in the past 2. Continue epogen sq 3. Hgb electrophoresis ordered (has not been completed before) 4. Anemia w/u has been reviewed 5. Have again stressed the importance of blood transfusions, she refuses 8. Status post inferior vena cava filter 9. TO be discharged today Sincerely, Dg Fairbanks MD Subjective Constitutional: Reports: no symptoms HEENT: Reports: no symptoms Cardiovascular: Reports: no symptoms Respiratory: Reports: no symptoms Gastrointestinal/Abdominal: Reports: poor appetite Genitourinary: Reports: no symptoms Neurologic/Psychiatric: Reports: no symptoms Endocrine: Reports: no symptoms Hematologic/Lymphatic: Reports: anemia Allergies: Coded Allergies: LATEX (Unverified Allergy, Mild, Rash, 09/03/14) QUININE (Unverified Allergy, Unknown, Rash Hives, 05/23/15) Quinine Sulfate Subjective stable, no events, no fevers, no chills, no night sweats Objective Last 24 Hour Vital Signs Date Time Temp Pulse Resp B/P Pulse Ox O2 Delivery O2 Flow Rate FiO2 12/01/16 11:41 97.7 60 14 130/58 98 Nasal Cannula 12/01/16 08:29 155/57 12/01/16 08:28 61 155/57 12/01/16 07:43 97.3 61 16 155/57 96 Room Air 12/01/16 04:00 97.5 60 20 144/70 65 Nasal Cannula 2.0 12/01/16 00:00 98.1 60 20 141/66 100 Nasal Cannula 2.0 11/30/16 21:20 97 Nasal Cannula 2.0 28 11/30/16 21:20 Nasal Cannula 2.0 28 11/30/16 21:20 79 20 Nasal Cannula 2.0 28 Intake and Output 11/30/16 12/01/16 18:59 06:59 Intake Total 900 ml 360 ml Balance 900 ml 360 ml Intake Oral 900 ml 300 ml IV Total 60 ml # Voids 2 9 Laboratory Tests 12/01/16 06:10: White Blood Count 6.4, Red Blood Count 2.07L, Hemoglobin 5.9*L, Hematocrit 19.8L , Mean Corpuscular Volume 96, Mean Corpuscular Hemoglobin 28.3, Mean Corpuscular Hemoglobin Concent 29.6L, Red Cell Distribution Width 18.8H, Platelet Count 253, Mean Platelet Volume 5.7L, Neutrophils (%) (Auto) , Lymphocytes (%) (Auto) , Monocytes (%) (Auto) , Eosinophils (%) (Auto) , Basophils (%) (Auto) , Differential Total Cells Counted 100, Neutrophils % ( Manual) 72, Lymphocytes % (Manual) 17L, Monocytes % (Manual) 6, Eosinophils % ( Manual) 5H, Basophils % (Manual) 0, Band Neutrophils 0, Platelet Estimate Adequate, Platelet Morphology Normal, Hypochromasia 4+, Anisocytosis 2+, Sodium Level 142, Potassium Level 3.9, Chloride Level 103, Carbon Dioxide Level 26, Anion Gap 13, Blood Urea Nitrogen 16, Creatinine 0.5, Estimat Glomerular Filtration Rate , Glucose Level 76, Calcium Level 8.7, Carcinoembryonic Antigen 3.0 Height (Feet): 5 Height (Inches): 5.00 Weight (Pounds): 145 General Appearance: lethargic EENT: TMs normal Neck: normal alignment Cardiovascular: regular rhythm Respiratory/Chest: lungs clear Abdomen: non tender Edema: mild edema Neurologic: abnormal gait Skin: warm/dry Dg Fairbanks Dec 01, 2016 20:02
[2016-12-01] MEDS ORDERED: Epogen (for non ESRD use) SUBQ SCH ×2 (21:00)
--- NOTE | 2016-12-01 23:05 | Pulmonology Progress Note ---
Assessment/Plan Problems: (1) Symptomatic anemia (2) Syncope (3) Hypertension (4) Asthma (5) CAD (coronary artery disease) (6) Diabetes mellitus Assessment/Plan venofer, check ob titrate cardiac meds check echo might go to med/surg Subjective ROS Limited/Unobtainable: No Constitutional: Reports: anorexia, fatigue Neurologic: Reports: confusion, syncope, weakness Allergies: Coded Allergies: LATEX (Unverified Allergy, Mild, Rash, 09/03/14) QUININE (Unverified Allergy, Unknown, Rash Hives, 05/23/15) Quinine Sulfate Objective Last 24 Hour Vital Signs Date Time Temp Pulse Resp B/P Pulse Ox O2 Delivery O2 Flow Rate FiO2 12/01/16 11:41 97.7 60 14 130/58 98 Nasal Cannula 12/01/16 08:29 155/57 12/01/16 08:28 61 155/57 12/01/16 07:43 97.3 61 16 155/57 96 Room Air 12/01/16 04:00 97.5 60 20 144/70 65 Nasal Cannula 2.0 12/01/16 00:00 98.1 60 20 141/66 100 Nasal Cannula 2.0 Intake and Output 11/30/16 12/01/16 19:00 07:00 Intake Total 900 ml 360 ml Balance 900 ml 360 ml Intake Oral 900 ml 300 ml IV Total 60 ml # Voids 2 9 General Appearance: no acute distress HEENT: normocephalic, PERRL Respiratory/Chest: chest wall non-tender, decreased breath sounds, accessory muscle use Breasts: no masses Cardiovascular: normal peripheral pulses, normal rate, regular rhythm, no JVD Abdomen: normal bowel sounds, soft, non tender, no organomegaly Genitourinary: normal external genitalia Extremities: no cyanosis Skin: no rash Neurologic/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: 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 grossly normal, no motor/sensory deficits Laboratory Tests 12/01/16 06:10: White Blood Count 6.4, Red Blood Count 2.07L, Hemoglobin 5.9*L, Hematocrit 19.8L , Mean Corpuscular Volume 96, Mean Corpuscular Hemoglobin 28.3, Mean Corpuscular Hemoglobin Concent 29.6L, Red Cell Distribution Width 18.8H, Platelet Count 253, Mean Platelet Volume 5.7L, Neutrophils (%) (Auto) , Lymphocytes (%) (Auto) , Monocytes (%) (Auto) , Eosinophils (%) (Auto) , Basophils (%) (Auto) , Differential Total Cells Counted 100, Neutrophils % ( Manual) 72, Lymphocytes % (Manual) 17L, Monocytes % (Manual) 6, Eosinophils % ( Manual) 5H, Basophils % (Manual) 0, Band Neutrophils 0, Platelet Estimate Adequate, Platelet Morphology Normal, Hypochromasia 4+, Anisocytosis 2+, Sodium Level 142, Potassium Level 3.9, Chloride Level 103, Carbon Dioxide Level 26, Anion Gap 13, Blood Urea Nitrogen 16, Creatinine 0.5, Estimat Glomerular Filtration Rate , Glucose Level 76, Calcium Level 8.7, Carcinoembryonic Antigen 3.0 MARLENY TURPIN Dec 01, 2016 23:05
--- NOTE | 2016-12-05 09:06 | Discharge Summary ---
Discharge Summary Hospital Course Date of Admission Nov 27, 2016 at 15:30 Date of Discharge Dec 01, 2016 at 16:43 Admitting Diagnosis SYNCOPE HPI Shirin Sommre is a 76 year old female who was admitted on Nov 27, 2016 at 15:30 for Syncope Hospital Course dc summary #[id number] Discharge Medications Continued Medications: Aspirin Ec* (Aspirin Ec*) 81 Mg Tablet.dr 81 MG ORAL DAILY, TAB Atorvastatin Calcium* (Atorvastatin Calcium*) 20 Mg Tablet 20 MG ORAL BEDTIME, TAB Carvedilol* (Carvedilol*) 3.125 Mg Tablet 3.125 MG ORAL BID, TAB Clopidogrel* (Clopidogrel*) 75 Mg Tablet 75 MG ORAL DAILY, TAB Donepezil Hcl* (Donepezil Hcl*) 5 Mg Tab.rapdis 5 MG ORAL DAILY, TAB Ferrous Sulfate* (Ferrous Sulfate*) 325 Mg Tablet 325 MG ORAL DAILY, #30 TAB 0 Refills Hydrocodone Bit/Acetaminophen 5-325* ([place] 5-325 Tablet*) 1 Each Tablet 1 TAB ORAL Q6HR PRN for For Pain, TAB Losartan Potassium* (Losartan Potassium*) 25 Mg Tablet 25 MG ORAL DAILY, TAB Metformin Hcl* (Metformin Hcl*) 500 Mg Tablet 500 MG ORAL TWICE A DAY, TAB Sertraline Hcl* (Zoloft*) 100 Mg Tablet 100 MG ORAL DAILY, TAB Temazepam (Temazepam*) 15 Mg Capsule 15 MG ORAL BEDTIME PRN for Insomnia, #30 CAP 0 Refills Discharge Condition Upon Discharge: stable Discharge Disposition Patient was discharged to Home with Home Health(06) Discharge Diagnoses: Discharge Instructions Discharge Instructions Special Instructions I have been assigned to complete a D/C Summary on this account. I was not involved in the patient management Nohemi Coto NP ([place]anchtein) Dec 05, 2016 09:05
--- NOTE | 2016-12-06 00:49 | Discharge Summary 2 SIG ---
DATE OF ADMISSION: 11/27/2016 DATE OF DISCHARGE: 12/01/2016 REASON FOR ADMISSION: 76-year-old female was brought to emergency room for evaluation after a witnessed syncopal episode at home by her family. The patient denied head trauma. Denied fever or chills. She denied chest pain, shortness of breath, dizziness, and palpitations. Emergency room workup revealed acute anemia with hemoglobin of 6.7 and hematocrit 21.9. Troponin was negative. Chest x-ray- no acute cardiopulmonary process. CT of the head - no acute intracranial pathology. ProBNP elevated to 2466. EKG showed T-wave inversion in lateral leads. No leukocytosis. The patient with multiple medical problems including diabetes, hypertension, asthma, coronary artery disease with stent placement, pacemaker, dementia, history of CVA with left-sided weakness, and history of DVT. Patient was admitted for further management. ADMITTING DIAGNOSES: 1. Syncope. 2. Acute anemia. 3. History of cerebrovascular accident with left hemiparesis. 4. Hypertension. 5. Diabetes type 2. 6. Pacemaker. 7. History of deep venous thrombosis. HOSPITAL STAY: The patient admitted to the hospital. The patient was a Jehovah Witness and declined blood transfusion due to her hoahaoism beliefs. Anemia workup revealed iron deficiency anemia. Peripheral blood smear review indicated normocytic, hypochromic anemia. The patient was on IV Venofer and Epogen. Stool OB was ordered, but not collected. The patient declined to provide samples. GI consult was requested. CEA with minimal elevation of 3.2. According to the GI, the patient needs evaluation to rule out GI bleeding, but with a low hemoglobin and cardiac history, the patient was not stable for procedure at this time. Echocardiogram revealed ejection fraction of 35% to 40% and right ventricular systolic pressure of 31. No left ventricular hypertrophy. Carotid duplex revealed mild degree of stenosis bilaterally. The patient was on medical management of congestive heart failure including beta-crow and ARB. No diuretics. No clinical evidence of volume overload. Blood sugar was managed with sliding scale of insulin as needed and oral metformin, stable with current regimen. Statin was continued. The patient status post IVC filter. The patient was working with physical and occupational therapists. Since the patient declined transfusion and no GI procedure at this time, the patient was discharged home with home health on oral iron supplement. Follow up with the primary medical doctor . Monitor hemoglobin and hematocrit closely. DISCHARGE DIAGNOSES: 1. Syncopal episode, likely secondary to acute anemia. 2. Iron-deficiency anemia. 3. Systolic heart failure. 4. Hypertension. 5. Diabetes mellitus type 2. 6. Pacemaker. 7. History of cerebrovascular accident with left hemiparesis. 8. History of deep venous thrombosis, status post inferior vena cava filter. 9. Hypercholesterolemia. DISCHARGE MEDICATIONS: Medication list was printed and given to the patient DISCHARGE INSTRUCTIONS: The patient discharged home with home health services. Follow up with the primary medical doctor. Lobito Jones M.D. I have been assigned to dictate discharge summary on this account and I was not involved in the patient's management. Nohemi Villalbaroger N.PFilomena DR: BRENDA JOB#: [id number] CC: ELIGIO
--- NOTE | 2016-12-18 14:48 | Cardiology Report ---
APPROVED REPORT EKG Measurement Heart [id number] NM 200P-9 [id number] Left axis deviation Septal infarct, age undetermined Abnormal ECG
--- NOTE | 2016-12-18 14:48 | Diagnostic Imaging Report ---
Indication: Shortness of breath Technique: One view of the chest Comparison: 09/27/2016 Findings: There is a left chest AICD again demonstrated. Lungs and pleural spaces are clear. Heart size is upper limits of normal. There are degenerative changes of the right shoulder are again demonstrated Impression: No acute process
== END 2016-12-01 16:43 | disposition home health service (06) | DRG 812 ==
LOC: EDBD 14:39 → EMR 15:09 → EDBEDREQ 15:21 → 2E 15:30 → EDBEDREQ 16:27 → 4E 11-30 03:37
DX: D50.9 Iron deficiency anemia, unspecified (principal); I50.22 Chronic systolic (congestive) heart failure; I69.354 Hemiplegia and hemiparesis following cerebral infarction affecting left non-dominant side; K92.2 Gastrointestinal hemorrhage, unspecified; I25.10 Atherosclerotic heart disease of native coronary artery without angina pectoris; I10 Essential (primary) hypertension; Z86.718 Personal history of other venous thrombosis and embolism; Z95.0 Presence of cardiac pacemaker; Z95.5 Presence of coronary angioplasty implant and graft; E78.00 Pure hypercholesterolemia, unspecified; R55 Syncope and collapse; E11.9 Type 2 diabetes mellitus without complications; Z98.1 Arthrodesis status; Z88.8 Allergy status to other drugs, medicaments and biological substances; Z96.653 Presence of artificial knee joint, bilateral; Z79.02 Long term (current) use of antithrombotics/antiplatelets; Z53.1 Procedure and treatment not carried out because of patient's decision for reasons of belief and group pressure
CPT/HCPCS: 36415; 70450; 71010; 80048; 80053; 80061; 81003; 82378; 82550; 82553; 82607; 82728; 82746; 82962; 83020; 83540; 83550; 83615; 83880; 84443; 84484; 85007; 85025; 85044; 85060; 85610; 85651; 85730; 86850; 86900; 86901; 86920; 93005; 93306; 93880; 94664; 94760; J1815; J2405

== ENCOUNTER 2016-12-26 13:09 | Inpatient (IN) | payer MEDICARE, MEDICAID ==
[~2016-12-26] VITALS: Ht 162.6 cm; Wt 65.3 kg
[~2016-12-26 13:09] MED LIST changes: +ASPIRIN EC81 MG ORAL; +CLOPIDOGREL75 MG ORAL
[2016-12-26] MEDS ORDERED: Bisacodyl EC 5mg tab ORAL PRN (19:00)
[2016-12-26] MEDS ORDERED: Lactulose 20gm/30ml UDC ORAL PRN (19:00)
[2016-12-26 20:00] VITALS: BP 134/72
[2016-12-26] MEDS: cefTRIAXone 1 GM in D5W 55 ML IVPB SCH (21:44)
[2016-12-26] MEDS: Norco 5mg/325mg tab ORAL PRN (21:48)
[2016-12-27] VITALS: BP 103/66
[2016-12-27 07:14] LABS: MEAN CORPUSCULAR HEMOGLOBIN 28.3 PG (27.0-31.0); MEAN CORPUSCULAR HGB CONC 28.1 G/DL (32.0-36.0); MEAN CORPUSCULAR VOLUME 101 FL (80-99); MEAN PLATELET VOLUME 5.6 FL (6.5-10.1); PLATELET COUNT 253 K/UL (150-450); RED BLOOD COUNT 1.84 M/UL (4.20-5.40); RED CELL DISTRIBUTION WIDTH 19.4 % (11.6-14.8); WHITE BLOOD COUNT 5.1 K/UL (4.8-10.8)
[2016-12-27 07:27] LABS: TROPONIN I < 0.30 ng/mL (<=0.30)
[2016-12-27 07:29] LABS: ALANINE AMINOTRANSFERASE 6 U/L (3-33); ALBUMIN/GLOBULIN RATIO 1.6 (1.0-2.7); ANION GAP 11 (5-15); ASPARTATE AMINO TRANSFERASE 11 U/L (5-40); CALCIUM 8.5 mg/dL (8.6-10.2); CARBON DIOXIDE 26 mEQ/L (20-30); CHLORIDE 106 mEQ/L (98-107); CHOLESTEROL 108 mg/dL (< 200); CHOLESTEROL/HDL RATIO 2.3 (3.3-4.4); CREATININE 0.5 mg/dL (0.5-0.9); HEMOLYSIS 5; LDL CHOLESTEROL (CALC.) 47 mg/dL (60-99); PHOSPHORUS 3.9 mg/dL (2.5-4.8); POTASSIUM 4.1 mEQ/L (3.4-4.9); SODIUM 143 mEQ/L (135-145); TOTAL PROTEIN 4.7 g/dL (6.6-8.7)
[2016-12-27 08:00] VITALS: BP 136/58
[2016-12-27] MEDS: Losartan 50mg tab ORAL SCH (08:55)
[2016-12-27] MEDS: Sertraline 100mg tab ORAL SCH (08:55)
[2016-12-27] MEDS: Atorvastatin 80mg tab ORAL SCH (08:56)
[2016-12-27 10:38] LABS: ANISOCYTOSIS 1+; BAND NEUTROPHILS % (MANUAL) 0 % (0-8); BASOPHILS % (MANUAL) 0 % (0-2); EOSINOPHILS % (MANUAL) 2 % (0-3); HYPOCHROMASIA 2+; LYMPHOCYTES % (MANUAL) 37 % (20-45); MACROCYTES 1+; NEUTROPHILS % (MANUAL) 58 % (45-75); PLATELET ESTIMATE ADEQUATE; PLATELET MORPHOLOGY NORMAL; TOTAL CELLS COUNTED 100
--- NOTE | 2016-12-27 12:34 | History & Physical ---
History and Physical History & Physicial Dictated for Int Med-Dr Jones no. [id number]. DELFIN MARTINEZ Dec 27, 2016 12:34
[2016-12-27 12:51] VITALS: BP 124/65
--- NOTE | 2016-12-27 12:52 | Diagnostic Imaging Report ---
Indication: Assessment for IVC filter Technique: Supine view of the abdomen Comparison: Reference made to CT scan of 07/21/2015 and 11/29/2007 Findings: There is an IVC filter, probably a Cook temporary IVC filter, in the expected location, without significant tilt. This was also present both the earlier CT scans and the position and configuration appear unchanged Bowel gas pattern is unremarkable. There is surgical hardware in the lumbar spine and surgical clips in the pelvis. There are cholecystectomy clips. There is prominent stool within the rectum there is an AICD noted in the lower chest Impression: Inferior vena cava filter is present, also demonstrated on prior CT studies dating back to 2007 Other findings as noted No acute process
[2016-12-27 13:17] LABS: OTHERS PATHOLOGIST COMMENT
--- NOTE | 2016-12-27 13:32 | Diagnostic Imaging Report ---
Indication: Chest pain Technique: One view of the chest Comparison: 11/27/2016 Findings: There is a left chest AICD again demonstrated. Lungs and pleural spaces are clear, although the power pack for the AICD could obscure pathology in the left lateral lung base. Heart size is normal. The aorta is tortuous and calcified. There are degenerative changes of the right shoulder are again demonstrated Impression: No acute process
[2016-12-27 14:45] LABS: INR 1.2 (0.9-1.1); PROTHROMBIN TIME 11.9 SEC (9.30-11.50)
[2016-12-27 16:04] VITALS: BP 137/67
--- NOTE | 2016-12-27 16:14 | Consultation ---
History of Present Illness Present Illness Allergies: Coded Allergies: LATEX (Unverified Allergy, Mild, Rash, 09/03/14) QUININE (Unverified Allergy, Unknown, Rash Hives, 05/23/15) Quinine Sulfate Medication History Scheduled Aspirin Ec* (Aspirin Ec*), 81 MG ORAL DAILY, (Reported) Atorvastatin Calcium* (Atorvastatin Calcium*), 20 MG ORAL BEDTIME, (Reported) Carvedilol* (Carvedilol*), 3.125 MG ORAL BID, (Reported) Clopidogrel* (Clopidogrel*), 75 MG ORAL DAILY, (Reported) Donepezil Hcl* (Donepezil Hcl*), 5 MG ORAL DAILY, (Reported) Ferrous Sulfate* (Ferrous Sulfate*), 325 MG ORAL DAILY, (Reported) Losartan Potassium* (Losartan Potassium*), 25 MG ORAL DAILY, (Reported) Metformin Hcl* (Metformin Hcl*), 500 MG ORAL TWICE A DAY, (Reported) Sertraline Hcl* (Zoloft*), 100 MG ORAL DAILY, (Reported) Scheduled PRN Hydrocodone Bit/Acetaminophen 5-325* ([place] 5-325 Tablet*), 1 TAB ORAL Q6HR PRN for For Pain, (Reported) Temazepam (Temazepam*), 15 MG ORAL BEDTIME PRN for Insomnia, (Reported) Patient History Healthcare decision maker Resuscitation status Full Code Advanced Directive on File No Physical Exam Last 24 Hour Vital Signs Date Time Temp Pulse Resp B/P Pulse Ox O2 Delivery O2 Flow Rate FiO2 12/27/16 16:04 97.9 60 19 137/67 99 Room Air 12/27/16 12:51 97.9 58 12 124/65 99 Room Air 12/27/16 08:55 136/58 12/27/16 08:55 61 136/58 12/27/16 08:00 97.2 61 22 136/58 95 Room Air 12/27/16 00:00 97.7 61 21 103/66 99 Room Air 12/26/16 22:48 97.7 12/26/16 20:00 97.7 69 19 134/72 Room Air Intake and Output 12/26/16 12/27/16 19:00 07:00 Intake Total 55 ml Balance 55 ml IV Total 55 ml # Voids 2 # Bowel Movements 2 Laboratory Tests Test 12/27/16 05:10 12/27/16 14:00 White Blood Count 5.1 K/UL (4.8-10.8) Red Blood Count 1.84 M/UL (4.20-5.40) L Hemoglobin 5.2 G/DL (12.0-16.0) *L Hematocrit 18.5 % (37.0-47.0) L Mean Corpuscular Volume 101 FL (80-99) H Mean Corpuscular Hemoglobin 28.3 PG (27.0-31.0) Mean Corpuscular Hemoglobin Concent 28.1 G/DL (32.0-36.0) L Red Cell Distribution Width 19.4 % (11.6-14.8) H Platelet Count 253 K/UL (150-450) Mean Platelet Volume 5.6 FL (6.5-10.1) L Neutrophils (%) (Auto) % (45.0-75.0) Lymphocytes (%) (Auto) % (20.0-45.0) Monocytes (%) (Auto) % (1.0-10.0) Eosinophils (%) (Auto) % (0.0-3.0) Basophils (%) (Auto) % (0.0-2.0) Differential Total Cells Counted 100 Neutrophils % (Manual) 58 % (45-75) Lymphocytes % (Manual) 37 % (20-45) Monocytes % (Manual) 3 % (1-10) Eosinophils % (Manual) 2 % (0-3) Basophils % (Manual) 0 % (0-2) Band Neutrophils 0 % (0-8) Other Cell Type Pathologist comment Platelet Estimate Adequate Platelet Morphology Normal Hypochromasia 2+ Anisocytosis 1+ Macrocytosis 1+ Sodium Level 143 mEQ/L (135-145) Potassium Level 4.1 mEQ/L (3.4-4.9) Chloride Level 106 mEQ/L (98-107) Carbon Dioxide Level 26 mEQ/L (20-30) Anion Gap 11 (5-15) Blood Urea Nitrogen 12 mg/dL (7-23) Creatinine 0.5 mg/dL (0.5-0.9) Estimat Glomerular Filtration Rate mL/min (>60) Glucose Level 86 mg/dL (74-106) Calcium Level 8.5 mg/dL (8.6-10.2) L Phosphorus Level 3.9 mg/dL (2.5-4.8) Magnesium Level 2.0 mg/dL (1.7-2.5) Total Bilirubin < 0.2 mg/dL (0.0-1.2) Aspartate Amino Transf (AST/SGOT) 11 U/L (5-40) Alanine Aminotransferase (ALT/SGPT) 6 U/L (3-33) Alkaline Phosphatase 59 U/L (35-104) Troponin I < 0.30 ng/mL (<=0.30) Total Protein 4.7 g/dL (6.6-8.7) L Albumin 2.9 g/dL (3.5-5.2) L Globulin 1.8 g/dL Albumin/Globulin Ratio 1.6 (1.0-2.7) Triglycerides Level 76 mg/dL (< 150) Cholesterol Level 108 mg/dL (< 200) LDL Cholesterol 47 mg/dL (60-99) L HDL Cholesterol 46 mg/dL (> 60) Cholesterol/HDL Ratio 2.3 (3.3-4.4) L Prothrombin Time 11.9 SEC (9.30-11.50) H Prothromb Time International Ratio 1.2 (0.9-1.1) H Activated Partial Thromboplast Time 28 SEC (23-33) Height (Feet): 5 Height (Inches): 4.00 Weight (Pounds): 144 Medications Current Medications Medications (Trade) Dose Ordered Sig/Don Route PRN Reason Start Time Stop Time Status Last Admin Dose Admin Acetaminophen (Tylenol) 650 mg Q4H PRN ORAL Mild Pain/Temp > 100.5 12/26/16 19:00 01/25/17 18:59 Acetaminophen/ Hydrocodone Bitart ([place] 5/325) 1 tab Q3H PRN ORAL Mild Pain (Pain Scale 1-3) 12/26/16 19:30 01/02/17 19:29 12/26/16 21:48 Atorvastatin Calcium (Lipitor) 80 mg DAILY ORAL 12/27/16 09:00 01/26/17 08:59 12/27/16 08:56 Bisacodyl (Dulcolax) 5 mg DAILYPRN PRN ORAL Constipation 12/26/16 19:00 01/25/17 18:59 Carvedilol 3.125 mg 3.125 mg BID ORAL 12/27/16 09:00 01/26/17 08:59 12/27/16 08:55 Ceftriaxone Sodium/Dextrose (Rocephin/D5W) 55 ml @ 110 mls/hr Q24H IVPB 12/26/16 21:00 01/02/17 20:59 12/26/16 21:44 Epoetin Barak (Procrit (for non ESRD use)) 10,000 units SUN-SUN-SUN SUBQ 12/27/16 21:00 01/26/17 20:59 Ferrous Sulfate (Feosol) 325 mg THREE TIMES A DAY ORAL 12/27/16 09:00 01/26/17 08:59 12/27/16 13:32 Lactulose (Cephulac) 20 gm THREE TIMES A DAY PRN ORAL constipation 12/26/16 19:00 01/25/17 18:59 Losartan Potassium (Cozaar) 50 mg DAILY ORAL 12/27/16 09:00 01/26/17 08:59 12/27/16 08:55 Ondansetron HCl (Zofran) 4 mg Q6H PRN IVP Nausea & Vomiting 12/26/16 19:30 01/25/17 19:29 Pantoprazole (Protonix) 40 mg DAILY ORAL 12/27/16 09:00 01/26/17 08:59 12/27/16 08:55 Sertraline HCl (Zoloft) 100 mg DAILY ORAL 12/27/16 09:00 01/26/17 08:59 12/27/16 08:55 Temazepam (Restoril) 15 mg HSPRN PRN ORAL Insomnia 12/26/16 19:30 01/02/17 19:29 12/26/16 21:43 MARLENY TURPIN Dec 27, 2016 16:14
[2016-12-27] MEDS ORDERED: Vitamin B12 1000mcg/ml Inj IM ONE (17:00)
--- NOTE | 2016-12-27 17:30 | History and Physical Report ---
DATE OF ADMISSION: 12/26/2016 CHIEF COMPLAINT: The patient is a 76-year-old female, who presents with a chief complaint of altered mental status. HISTORY OF PRESENT ILLNESS: The patient presented to [facility] emergency room on 12/24/2016. The patient was taken to the emergency room secondary to altered mental status. The patient was found to have urinary tract infection. The patient was started on intravenous ceftriaxone. The patient was admitted to [facility] from 11/27/2016 to 12/01/2016 for severe anemia. Please see history and physical and discharge summary dictated at that time. The patient is transferred to [facility] for insurance purposes. The patient was admitted for altered mental status and urinary tract infection to rule out sepsis. PAST MEDICAL HISTORY: Significant for, 1. Severe iron deficiency anemia, the patient is a [employer] and refused transfusion. 2. Cerebrovascular accident. 3. Left hemiparesis. 4. Coronary artery disease, status post stent placement in 2014. 5. Congestive heart failure. 6. Diabetes type 2. 7. Hypertension. 8. Hypercholesterolemia. 9. History of deep venous thrombosis of the left leg with IVC filter placement. 10. Automatic implanted cardioverter defibrillator in situ. PAST SURGICAL HISTORY: Significant for, 1. Cholecystectomy. 2. Cervical spine fusion. 3. Lumbar spine surgery. 4. Bilateral knee arthroplasty. 5. Carotid stenting for carotid stenosis. 6. AICD placement. CURRENT MEDICATIONS: 1. Tylenol 650 mg one tablet p.o. q.4 hours p.r.n. 2. Lipitor 80 mg one tablet p.o. daily. 3. Coreg 3.125 mg one tab p.o. twice daily. 4. Epogen 10,000 units subcutaneously every Sunday, Sunday, and Sunday. 5. Iron sulfate 325 mg one tablet p.o. three times daily. 6. Losartan 50 mg one tablet p.o. daily. 7. Omeprazole 40 mg one tablet p.o. twice daily. 8. Zoloft 100 mg one tablet p.o. daily. ALLERGIES: To latex and quinine. SOCIAL HISTORY: The patient is a [employer] as above. The patient is . The patient denies tobacco or alcohol use. REVIEW OF SYSTEMS: Unable to assess secondary to the patient's altered mental status. PHYSICAL EXAMINATION: VITAL SIGNS: Temperature 97.7 degrees, respirations 19, pulse 69, and blood pressure 134/72. GENERAL: The patient is a well-developed well-nourished thin-appearing female, in no apparent distress. HEENT: Eyes, pupils are equal and responsive to light and accommodation. Extraocular movements are intact. NECK: Supple without lymphadenopathy. CHEST: Lungs are clear to auscultation bilaterally without wheezes or rales. CARDIOVASCULAR: Regular rate. S1 and S2 are normal without murmurs, rubs, or gallops. ABDOMEN: Soft, nontender, and nondistended. Positive bowel sounds. No evidence of hepatosplenomegaly. Currently, no rebound or guarding noted. EXTREMITIES: Negative for clubbing, cyanosis, or edema. RECTAL: Refused. GENITALIA: Refused. NEUROLOGICAL: Cranial nerves II through XII were grossly intact without focal deficits. The patient does have a left hemiparesis. LABORATORY STUDIES: WBC 5.1, hemoglobin 5.2, hematocrit 18.5, and platelets 253,000. Sodium 143, potassium 4.1, chloride 106, CO2 26, BUN 12, creatinine 0.5, and glucose 86. Troponin less than 0.3. Venous duplex Doppler of bilateral lower extremities revealed a chronic venous thrombus in the left popliteal vein and an acute deep venous thrombosis of the right [id number] vein. ASSESSMENT: This is a 76-year-old female. 1. Altered mental status. 2. Urinary tract infection. 3. Sepsis. 4. Acute deep venous thrombosis of the right leg. 5. Chronic deep venous thrombosis of the left leg. 6. Severe iron deficiency anemia. 7. History of cerebrovascular accident. 8. Left hemiparesis. 9. Coronary artery disease. 10. Congestive heart failure. 11. Diabetes type 2. 12. Hypertension. 13. Hypercholesterolemia. 14. Automatic implanted cardioverter defibrillator in situ. TREATMENT: 1. Altered mental status. An initial CAT scan of the brain at [facility] revealed no acute disease. Altered mental status may be secondary to sepsis secondary to urinary tract infection as above. 2. Urinary tract infection/sepsis. Urine culture is pending. The patient has been continued empirically on ceftriaxone. 3. Acute deep venous thrombosis on the right leg. The patient is status post IVC filter placed. A chest x-ray is pending to confirm this. The Hematology/Oncology consultation will be obtained with Dr. Fairbanks. 4. Severe iron deficiency anemia. The patient is a [employer]. The patient has refused blood transfusions in the past. Continue Epogen as above. Continue iron supplementation as above. As above, Hematology/Oncology consultation will be obtained with Dr. Fairbanks. 5. History of cerebrovascular accident with left hemiparesis. 6. Coronary artery disease. 7. Congestive heart failure. 8. Diabetes type 2. The patient has been placed on a NovoLog sliding scale. 9. Hypertension. Continue Coreg and Cozaar as above. 10. Hypercholesterolemia. Continue Lipitor as above. Lorne Rios M.D. DR: HILLARY JOB#: [id number] CC:
[2016-12-27] MEDS: Norco 5mg/325mg tab ORAL PRN (18:47)
[2016-12-27 21:00] VITALS: BP 100/55
[2016-12-27] MEDS: cefTRIAXone 1 GM in D5W 55 ML IVPB SCH (21:18)
[2016-12-27] MEDS: Epogen (for non ESRD use) SUBQ SCH (21:39)
[2016-12-27] MEDS: Iron Sucrose 100 MG in NS 55 ML IVPB SCH (21:49)
--- NOTE | 2016-12-27 21:56 | Consultation ---
Consult Note Consult Note HEMATOLOGY CONSULTATION DATE OF CONSULT: 12/27/16 REQUESTING MD: DELFIN MARTINEZ/ASHLEY CHIEF COMPLAINT: The patient is a 75-year-old female presents with AMS HISTORY OF PRESENT ILLNESS: The patient was admitted to [facility] on 07/30/2016 and in 09/2016 with a syncopal episode and on 11/24 as well. The patient was found to have severe anemia. The patient is a [employer] and has refused transfusions in the past. WAS started on venofer and iron The patient states history of present illness began several days prior to admission. The patient began increasingly fatigue. The patient also complains of dysuria. The patient denies fever or chills. The patient denies chest pain. She passed out while getting a haircut and was noted to have a depressed hgb on admission. She had a hgb 5.2 and was admitted and received a blood transfusion. PAST MEDICAL HISTORY: Significant for, 1. Cerebrovascular accident 2. Left hemiparesis. 3. Coronary artery disease status post stent in 2014. 4. Congestive heart failure. 5. Diabetes type 2. 6. Hypertension. 7. Hypercholesterolemia. 8. History of deep venous thrombosis with IVC placement. 9. Pacemaker in situ. PAST SURGICAL HISTORY: Significant for, 1. Cholecystectomy. 2. Cervical spine fusion. 3. Lumbar spine surgery . 4. Bilateral total knee arthroplasty. 5. Carotid stenting for carotid stenosis. CURRENT MEDICATIONS: 1. Aspirin 81 mg one tablet p.o. daily. 2. Lipitor 20 mg one tablet p.o. daily. 3. Carvedilol 3.125 mg one tablet p.o. twice daily. 4. Plavix 75 mg one table p.o. daily. 5. Aricept 5 mg one tablet p.o. daily. 6. Iron sulfate 325 mg one tablet p.o. daily. 7. [place] 5/325 mg one tablet p.o. q.6 hours p.r.n. 8. Losartan 25 mg one tablet p.o. daily. 9. Metformin 500 mg one tablet p.o. twice daily. 10. Zoloft 100 mg one tablet p.o. daily. ALLERGIES: To latex and quinine. SOCIAL HISTORY: The patient is a Roman [employer]. The patient is . The patient denies tobacco or alcohol use. REVIEW OF SYSTEMS: Constitutional: The patient denies weight loss or weight gain. The patient denies fevers or chills. HEENT: The patient denies ear or throat pain. Cardiovascular: The patient denies palpitations or chest pain. Chest: The patient denies wheezes or shortness of breath. Abdomen: The patient denies nausea, vomiting, or constipation. Genitourinary: The patient denies dysuria or increased frequency of urination. Neuromuscular: The patient complains of generalized fatigue. PHYSICAL EXAMINATION: VITAL SIGNS: Last 24 Hour Vital Signs Date Time Temp Pulse Resp B/P Pulse Ox O2 Delivery O2 Flow Rate FiO2 12/27/16 21:00 98.1 58 20 100/55 98 Room Air 12/27/16 19:46 98.1 12/27/16 17:37 60 137/67 12/27/16 16:04 97.9 60 19 137/67 99 Room Air 12/27/16 12:51 97.9 58 12 124/65 99 Room Air 12/27/16 08:55 136/58 12/27/16 08:55 61 136/58 12/27/16 08:00 97.2 61 22 136/58 95 Room Air 12/27/16 00:00 97.7 61 21 103/66 99 Room Air GENERAL: The patient is well-developed and well-nourished black female HEENT: Eyes, pupils are equal and responsive to light and accommodation. Extraocular movements intact. NECK: Supple without lymphadenopathy. CHEST: Lungs are clear to auscultation bilaterally without wheezes or rales. CARDIOVASCULAR: Regular rhythm and rate. S1, S2 normal without murmurs, rubs, or gallops. ABDOMEN: Soft, nontender, and nondistended. Positive bowel sounds. No evidence of hepatosplenomegaly. Currently, no rebound or guarding. EXTREMITIES: Negative for clubbing, cyanosis, or or edema. RECTAL: Refused. GENITAL: Refused. NEUROLOGIC: Cranial nerves II through XII grossly intact without focal deficits. The patient's motor strength is 3/5 in the left and 5/5 in the right. Deep tendon reflexes are 2+ plantar. LABORATORY STUDIES: Laboratory Tests Test 12/27/16 05:10 12/27/16 14:00 White Blood Count 5.1 K/UL (4.8-10.8) Red Blood Count 1.84 M/UL (4.20-5.40) L Hemoglobin 5.2 G/DL (12.0-16.0) *L Hematocrit 18.5 % (37.0-47.0) L Mean Corpuscular Volume 101 FL (80-99) H Mean Corpuscular Hemoglobin 28.3 PG (27.0-31.0) Mean Corpuscular Hemoglobin Concent 28.1 G/DL (32.0-36.0) L Red Cell Distribution Width 19.4 % (11.6-14.8) H Platelet Count 253 K/UL (150-450) Mean Platelet Volume 5.6 FL (6.5-10.1) L Neutrophils (%) (Auto) % (45.0-75.0) Lymphocytes (%) (Auto) % (20.0-45.0) Monocytes (%) (Auto) % (1.0-10.0) Eosinophils (%) (Auto) % (0.0-3.0) Basophils (%) (Auto) % (0.0-2.0) Differential Total Cells Counted 100 Neutrophils % (Manual) 58 % (45-75) Lymphocytes % (Manual) 37 % (20-45) Monocytes % (Manual) 3 % (1-10) Eosinophils % (Manual) 2 % (0-3) Basophils % (Manual) 0 % (0-2) Band Neutrophils 0 % (0-8) Other Cell Type Pathologist comment Platelet Estimate Adequate Platelet Morphology Normal Hypochromasia 2+ Anisocytosis 1+ Macrocytosis 1+ Sodium Level 143 mEQ/L (135-145) Potassium Level 4.1 mEQ/L (3.4-4.9) Chloride Level 106 mEQ/L (98-107) Carbon Dioxide Level 26 mEQ/L (20-30) Anion Gap 11 (5-15) Blood Urea Nitrogen 12 mg/dL (7-23) Creatinine 0.5 mg/dL (0.5-0.9) Estimat Glomerular Filtration Rate mL/min (>60) Glucose Level 86 mg/dL (74-106) Calcium Level 8.5 mg/dL (8.6-10.2) L Phosphorus Level 3.9 mg/dL (2.5-4.8) Magnesium Level 2.0 mg/dL (1.7-2.5) Total Bilirubin < 0.2 mg/dL (0.0-1.2) Aspartate Amino Transf (AST/SGOT) 11 U/L (5-40) Alanine Aminotransferase (ALT/SGPT) 6 U/L (3-33) Alkaline Phosphatase 59 U/L (35-104) Troponin I < 0.30 ng/mL (<=0.30) Total Protein 4.7 g/dL (6.6-8.7) L Albumin 2.9 g/dL (3.5-5.2) L Globulin 1.8 g/dL Albumin/Globulin Ratio 1.6 (1.0-2.7) Triglycerides Level 76 mg/dL (< 150) Cholesterol Level 108 mg/dL (< 200) LDL Cholesterol 47 mg/dL (60-99) L HDL Cholesterol 46 mg/dL (> 60) Cholesterol/HDL Ratio 2.3 (3.3-4.4) L Prothrombin Time 11.9 SEC (9.30-11.50) H Prothromb Time International Ratio 1.2 (0.9-1.1) H Activated Partial Thromboplast Time 28 SEC (23-33) ASSESSMENT: This is a 76-year-old female, 1. Severe anemia 2/2 iron deficiency - retic count is high, but not sufficiently elevated given degree of anemia, patient begun on epo and iron in light of refusing blood transfusions (Roman Catholic) and may take several days/weeks to improve. Patient has been admitted with similar symptoms before. Continues to refuse on blood transfusions. 2. Anemia r/o GI bleed - occult blood pending as is hgb electrophoresis (has not been completed before) 3. Syncope which is very likely 2/2 anemia 4. History of deep venous thrombosis s/p ivc filter of BOTH RIGHT AND LEFT LEG 5. Left hemiplegia. 6. Coronary artery disease. 7. Congestive heart failure. 8. Diabetes type 2. 9. Hypertension. 10. Hypercholesterolemia. 11. CVA 12. Pacemaker. RECS: 1. Intravenous Venofer. The patient is a Roman [employer]. The patient has refused blood transfusions in the past. Hgb >7 goal 2. Continue epogen sq 3. Hgb electrophoresis ordered (has not been completed before) 4. Anemia w/u has been reviewed 5. Have again stressed the importance of blood transfusions, she refuses 6. Status post inferior vena cava. HOLD OFF ON ANTICOAGULATION GIVEN ANEMIA 7. Appreciate consultation greatly, will continue to follow Sincerely, MD Magdi Boyle Roman L. Dec 27, 2016 21:56
[2016-12-28] VITALS: BP 134/71
[2016-12-28] MEDS: Norco 5mg/325mg tab ORAL PRN ×2 (00:44→17:39)
[2016-12-28 04:15] VITALS: BP 125/64
[2016-12-28 07:13] LABS: MEAN CORPUSCULAR HEMOGLOBIN 27.7 PG (27.0-31.0); MEAN CORPUSCULAR HGB CONC 27.5 G/DL (32.0-36.0); MEAN CORPUSCULAR VOLUME 101 FL (80-99); PLATELET COUNT 265 K/UL (150-450); RED CELL DISTRIBUTION WIDTH 18.7 % (11.6-14.8); WHITE BLOOD COUNT 4.6 K/UL (4.8-10.8)
[2016-12-28 07:49] LABS: ANION GAP 11 (5-15); CALCIUM 8.5 mg/dL (8.6-10.2); CARBON DIOXIDE 25 mEQ/L (20-30); CHLORIDE 107 mEQ/L (98-107); CREATININE 0.6 mg/dL (0.5-0.9); FERRITIN 39 ng/mL (13-150); HEMOLYSIS 18; POTASSIUM 3.8 mEQ/L (3.4-4.9); SODIUM 143 mEQ/L (135-145)
[2016-12-28 08:00] LABS: HEMOLYSIS 5; IRON 139 ug/dL (37-145); TOTAL IRON BINDING CAPACITY 239 ug/dL (250-400)
[2016-12-28 08:11] LABS: TROPONIN I < 0.30 ng/mL (<=0.30)
[2016-12-28 08:56] VITALS: BP 116/60
[2016-12-28] MEDS: Losartan 50mg tab ORAL SCH (09:00)
[2016-12-28] MEDS: Atorvastatin 80mg tab ORAL SCH (09:06)
[2016-12-28] MEDS: Sertraline 100mg tab ORAL SCH (09:06)
[2016-12-28 09:38] LABS: EOSINOPHILS % (MANUAL) 8 % (0-3); LYMPHOCYTES % (MANUAL) 23 % (20-45); NEUTROPHILS % (MANUAL) 62 % (45-75); TOTAL CELLS COUNTED 100
[2016-12-28 09:39] LABS: ANISOCYTOSIS 1+; BAND NEUTROPHILS % (MANUAL) 0 % (0-8); BASOPHILS % (MANUAL) 0 % (0-2); MACROCYTES 1+; PLATELET ESTIMATE ADEQUATE; POLYCHROMASIA 2+
[2016-12-28 09:40] LABS: HYPOCHROMASIA 2+; PLATELET MORPHOLOGY NORMAL
[2016-12-28 12:44] VITALS: BP 134/71
--- NOTE | 2016-12-28 13:04 | General Progress Note ---
Assessment/Plan Assessment/Plan 1. Severe anemia 2/2 iron deficiency - retic count is high, but not sufficiently elevated given degree of anemia, patient begun on epo and iron in light of refusing blood transfusions (Buddhist) and may take several days/weeks to improve. Patient has been admitted with similar symptoms before. Continues to refuse on blood transfusions. 2. Anemia r/o GI bleed - occult blood pending as is hgb electrophoresis (has not been completed before) 3. Syncope- 2/2 anemia 4. History of deep venous thrombosis s/p ivc filter of BOTH RIGHT AND LEFT LEG 5. Left hemiplegia. 6. Coronary artery disease. 7. Congestive heart failure. 8. Diabetes type 2. 9. Hypertension. 10. Hypercholesterolemia. 11. CVA 12. Pacemaker. RECS: 1. Intravenous Venofer. The patient is a Buddhist. The patient has refused blood transfusions in the past. Hgb >7 goal 2. Continue epogen sq 3. Hgb electrophoresis ordered (has not been completed before) 4. Anemia w/u has been reviewed 5. Have again stressed the importance of blood transfusions, she refuses 6. Status post inferior vena cava. HOLD OFF ON ANTICOAGULATION GIVEN ANEMIA 7. Appreciate consultation greatly, will continue to follow Sincerely, Dg Fairbanks MD Subjective ROS Limited/Unobtainable: Yes Constitutional: Reports: other - itchy HEENT: Reports: no symptoms Cardiovascular: Reports: no symptoms Respiratory: Reports: no symptoms Gastrointestinal/Abdominal: Reports: no symptoms Genitourinary: Reports: no symptoms Neurologic/Psychiatric: Reports: no symptoms Endocrine: Reports: no symptoms Hematologic/Lymphatic: Reports: anemia Allergies: Coded Allergies: LATEX (Unverified Allergy, Mild, Rash, 09/03/14) QUININE (Unverified Allergy, Unknown, Rash Hives, 05/23/15) Quinine Sulfate Subjective pt c/o pruritis, no bleeding, remains anemic Objective Last 24 Hour Vital Signs Date Time Temp Pulse Resp B/P Pulse Ox O2 Delivery O2 Flow Rate FiO2 12/28/16 12:44 97.7 60 19 134/71 98 12/28/16 09:00 116/60 12/28/16 09:00 60 116/60 12/28/16 08:56 97.5 60 20 116/60 97 Room Air 12/28/16 04:15 98.1 63 20 125/64 97 Room Air 12/28/16 01:43 98.1 12/28/16 00:00 98.2 61 19 134/71 97 Room Air 12/27/16 21:00 98.1 58 20 100/55 98 Room Air 12/27/16 17:37 60 137/67 12/27/16 16:04 97.9 60 19 137/67 99 Room Air Intake and Output 12/27/16 12/28/16 19:00 07:00 Intake Total 600 ml 475 ml Output Total 225 ml 300 ml Balance 375 ml 175 ml Intake Oral 600 ml 360 ml IV Total 115 ml Output Urine Total 225 ml 300 ml # Voids 2 1 # Bowel Movements 1 Laboratory Tests 12/27/16 14:00: Prothrombin Time 11.9H, Prothromb Time International Ratio 1.2H, Activated Partial Thromboplast Time 28 12/28/16 06:15: White Blood Count 4.6L, Red Blood Count 1.90L, Hemoglobin 5.3*L, Hematocrit 19.1L, Mean Corpuscular Volume 101H, Mean Corpuscular Hemoglobin 27.7, Mean Corpuscular Hemoglobin Concent 27.5L, Red Cell Distribution Width 18.7H, Platelet Count 265, Mean Platelet Volume 6.0L, Neutrophils (%) (Auto) , Lymphocytes (%) (Auto) , Monocytes (%) (Auto) , Eosinophils (%) (Auto) , Basophils (%) (Auto) , Differential Total Cells Counted 100, Neutrophils % ( Manual) 62, Lymphocytes % (Manual) 23, Monocytes % (Manual) 7, Eosinophils % ( Manual) 8H, Basophils % (Manual) 0, Band Neutrophils 0, Platelet Estimate Adequate, Platelet Morphology Normal, Polychromasia 2+, Hypochromasia 2+, Anisocytosis 1+, Macrocytosis 1+, Sodium Level 143, Potassium Level 3.8, Chloride Level 107, Carbon Dioxide Level 25, Anion Gap 11, Blood Urea Nitrogen 11, Creatinine 0.6, Estimat Glomerular Filtration Rate , Glucose Level 94, Calcium Level 8.5L, Iron Level 139, Total Iron Binding Capacity 239L, Percent Iron Saturation 58H, Unsaturated Iron Binding 100L, Soluble Transferrin Receptor [Pending], Ferritin 39, Troponin I < 0.30, Pro-B-Type Natriuretic Peptide 1176H Height (Feet): 5 Height (Inches): 4.00 Weight (Pounds): 144 General Appearance: alert EENT: PERRL/EOMI Neck: non-tender Cardiovascular: normal peripheral pulses Respiratory/Chest: chest wall non-tender Abdomen: normal bowel sounds Extremities: normal range of motion Edema: no edema noted Leg (L), no edema noted Leg (R), no edema noted Pedal (L) , no edema noted Pedal (R) Neurologic: front office assistant II-XII grossly normal Skin: warm/dry Dg Fairbanks Dec 28, 2016 13:04
[2016-12-28 16:49] VITALS: BP 125/69
--- NOTE | 2016-12-28 18:49 | Internal Med Progress Note ---
Subjective Date of Service: Dec 28, 2016 Physician Name Delfin Martinez Attending Physician Lobito Jones MD Current Medications Medications (Trade) Dose Ordered Sig/Don Route PRN Reason Start Time Stop Time Status Last Admin Dose Admin Acetaminophen (Tylenol) 650 mg Q4H PRN ORAL Mild Pain/Temp > 100.5 12/26/16 19:00 01/25/17 18:59 Acetaminophen/ Hydrocodone Bitart ([place] 5/325) 1 tab Q3H PRN ORAL Mild Pain (Pain Scale 1-3) 12/26/16 19:30 01/02/17 19:29 12/28/16 17:39 Atorvastatin Calcium (Lipitor) 80 mg DAILY ORAL 12/27/16 09:00 01/26/17 08:59 12/28/16 09:06 Bisacodyl (Dulcolax) 5 mg DAILYPRN PRN ORAL Constipation 12/26/16 19:00 01/25/17 18:59 Carvedilol 3.125 mg 3.125 mg BID ORAL 12/27/16 09:00 01/26/17 08:59 12/28/16 17:38 Ceftriaxone Sodium/Dextrose (Rocephin/D5W) 55 ml @ 110 mls/hr Q24H IVPB 12/26/16 21:00 01/02/17 20:59 12/27/16 21:18 Epoetin Barak (Procrit (for non ESRD use)) 10,000 units SUN-SUN-SUN SUBQ 12/27/16 21:00 01/26/17 20:59 12/27/16 21:39 Ferrous Sulfate (Feosol) 325 mg THREE TIMES A DAY ORAL 12/27/16 09:00 01/26/17 08:59 12/28/16 17:51 Folic Acid (Folate) 1 mg DAILY ORAL 12/28/16 09:00 01/27/17 08:59 12/28/16 09:07 Iron Sucrose/ Sodium Chloride (Venofer/Sodium Chloride) 60 ml @ 240 mls/hr BEDTIME IVPB 12/27/16 21:00 12/31/16 21:14 12/27/16 21:49 Lactulose (Cephulac) 20 gm THREE TIMES A DAY PRN ORAL constipation 12/26/16 19:00 01/25/17 18:59 Losartan Potassium (Cozaar) 50 mg DAILY ORAL 12/27/16 09:00 01/26/17 08:59 12/27/16 08:55 Ondansetron HCl (Zofran) 4 mg Q6H PRN IVP Nausea & Vomiting 12/26/16 19:30 01/25/17 19:29 Pantoprazole (Protonix) 40 mg DAILY ORAL 12/27/16 09:00 01/26/17 08:59 12/28/16 09:07 Sertraline HCl (Zoloft) 100 mg DAILY ORAL 12/27/16 09:00 01/26/17 08:59 12/28/16 09:06 Temazepam 15 mg 15 mg HSPRN PRN ORAL Insomnia 12/26/16 19:30 01/02/17 19:29 12/28/16 00:44 Allergies: Coded Allergies: LATEX (Unverified Allergy, Mild, Rash, 09/03/14) QUININE (Unverified Allergy, Unknown, Rash Hives, 05/23/15) Quinine Sulfate ROS Limited/Unobtainable: No Constitutional: Reports: no symptoms HEENT: Reports: no symptoms Cardiovascular: Reports: no symptoms Respiratory: Reports: no symptoms Gastrointestinal/Abdominal: Reports: no symptoms Genitourinary: Reports: no symptoms Neurologic/Psychiatric: Reports: no symptoms Subjective 76 YO F admitted with altered mental status. Cover for [facility] Jones. Objective Last Vital Signs Date Time Temp Pulse Resp B/P Pulse Ox O2 Delivery O2 Flow Rate FiO2 12/28/16 17:38 60 125/69 12/28/16 16:49 97.0 19 97 Room Air Laboratory Tests Test 12/28/16 06:15 White Blood Count 4.6 K/UL (4.8-10.8) L Red Blood Count 1.90 M/UL (4.20-5.40) L Hemoglobin 5.3 G/DL (12.0-16.0) *L Hematocrit 19.1 % (37.0-47.0) L Mean Corpuscular Volume 101 FL (80-99) H Mean Corpuscular Hemoglobin 27.7 PG (27.0-31.0) Mean Corpuscular Hemoglobin Concent 27.5 G/DL (32.0-36.0) L Red Cell Distribution Width 18.7 % (11.6-14.8) H Platelet Count 265 K/UL (150-450) Mean Platelet Volume 6.0 FL (6.5-10.1) L Neutrophils (%) (Auto) % (45.0-75.0) Lymphocytes (%) (Auto) % (20.0-45.0) Monocytes (%) (Auto) % (1.0-10.0) Eosinophils (%) (Auto) % (0.0-3.0) Basophils (%) (Auto) % (0.0-2.0) Differential Total Cells Counted 100 Neutrophils % (Manual) 62 % (45-75) Lymphocytes % (Manual) 23 % (20-45) Monocytes % (Manual) 7 % (1-10) Eosinophils % (Manual) 8 % (0-3) H Basophils % (Manual) 0 % (0-2) Band Neutrophils 0 % (0-8) Platelet Estimate Adequate Platelet Morphology Normal Polychromasia 2+ Hypochromasia 2+ Anisocytosis 1+ Macrocytosis 1+ Sodium Level 143 mEQ/L (135-145) Potassium Level 3.8 mEQ/L (3.4-4.9) Chloride Level 107 mEQ/L (98-107) Carbon Dioxide Level 25 mEQ/L (20-30) Anion Gap 11 (5-15) Blood Urea Nitrogen 11 mg/dL (7-23) Creatinine 0.6 mg/dL (0.5-0.9) Estimat Glomerular Filtration Rate mL/min (>60) Glucose Level 94 mg/dL (74-106) Calcium Level 8.5 mg/dL (8.6-10.2) L Iron Level 139 ug/dL (37-145) Total Iron Binding Capacity 239 ug/dL (250-400) L Percent Iron Saturation 58 % (15-50) H Unsaturated Iron Binding 100 ug/dL (112-346) L Soluble Transferrin Receptor Pending Ferritin 39 ng/mL (13-150) Troponin I < 0.30 ng/mL (<=0.30) Pro-B-Type Natriuretic Peptide 1176 pg/mL (0-125) H Microbiology Date/Time Source Procedure Growth Status 12/27/16 14:20 Indwelling Cath Urine Culture - Preliminary NO GROWTH Resulted Intake and Output 12/27/16 12/28/16 19:00 07:00 Intake Total 600 ml 475 ml Output Total 225 ml 300 ml Balance 375 ml 175 ml Intake Oral 600 ml 360 ml IV Total 115 ml Output Urine Total 225 ml 300 ml # Voids 2 1 # Bowel Movements 1 Objective General: alert, cooperative, no distress, appears stated age Head: normocephalic, without obvious abnormality, atraumatic Eyes: conjunctivae/corneas clear. PERRL, EOM's intact Throat: lips, mucosa, and tongue normal. MMM Neck: supple, symmetrical, trachea midline, and no JVD Lungs: clear to auscultation bilaterally Heart: regular rate and rhythm, S1, S2 normal, no murmur, click, rub or gallop Abdomen: soft, non-tender, non-distended, bowel sounds normal; no masses or organomegaly Extremities: extremities normal, atraumatic, no cyanosis or edema Pulses: 2+ and symmetric Skin: skin color, texture, turgor normal; no rashes or lesions Neurologic: Left heiparesis; grossly normal, no focal deficits Assessment/Plan Problem List: (1) Sepsis (2) Altered mental status (3) UTI (urinary tract infection) Assessment & Plan: Continue Ceftriaxone; await culture results. (4) Severe anemia Assessment & Plan: Jehovah Witness. Continue IV venofer per heme. (5) Iron deficiency anemia Assessment & Plan: Refused transfusion; cont IV venofer per heme. 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 (12) Hypercholesteremia (13) DVT (deep venous thrombosis) Assessment & Plan: Acute right leg. S/P IVC. See heme note. Status: not improved DELFIN MRATINEZ Dec 28, 2016 18:49
[2016-12-28 20:00] VITALS: BP 134/88
[2016-12-28] MEDS: Iron Sucrose 100 MG in NS 55 ML IVPB SCH (20:48)
[2016-12-28] MEDS: cefTRIAXone 1 GM in D5W 55 ML IVPB SCH (21:23)
--- NOTE | 2016-12-28 22:26 | Pulmonology Progress Note ---
Subjective Allergies: Coded Allergies: LATEX (Unverified Allergy, Mild, Rash, 09/03/14) QUININE (Unverified Allergy, Unknown, Rash Hives, 05/23/15) Quinine Sulfate Objective Last 24 Hour Vital Signs Date Time Temp Pulse Resp B/P Pulse Ox O2 Delivery O2 Flow Rate FiO2 12/28/16 20:00 97.0 75 20 134/88 98 Room Air 12/28/16 17:38 60 125/69 12/28/16 16:49 97.0 60 19 125/69 97 Room Air 12/28/16 12:44 97.7 60 19 134/71 98 12/28/16 09:00 116/60 12/28/16 09:00 60 116/60 12/28/16 08:56 97.5 60 20 116/60 97 Room Air 12/28/16 04:15 98.1 63 20 125/64 97 Room Air 12/28/16 01:43 98.1 12/28/16 00:00 98.2 61 19 134/71 97 Room Air Intake and Output 12/27/16 12/28/16 19:00 07:00 Intake Total 600 ml 475 ml Output Total 225 ml 300 ml Balance 375 ml 175 ml Intake Oral 600 ml 360 ml IV Total 115 ml Output Urine Total 225 ml 300 ml # Voids 2 1 # Bowel Movements 1 Microbiology Date/Time Source Procedure Growth Status 12/27/16 14:20 Indwelling Cath Urine Culture - Preliminary NO GROWTH Resulted Laboratory Tests 12/28/16 06:15: White Blood Count 4.6L, Red Blood Count 1.90L, Hemoglobin 5.3*L, Hematocrit 19.1L, Mean Corpuscular Volume 101H, Mean Corpuscular Hemoglobin 27.7, Mean Corpuscular Hemoglobin Concent 27.5L, Red Cell Distribution Width 18.7H, Platelet Count 265, Mean Platelet Volume 6.0L, Neutrophils (%) (Auto) , Lymphocytes (%) (Auto) , Monocytes (%) (Auto) , Eosinophils (%) (Auto) , Basophils (%) (Auto) , Differential Total Cells Counted 100, Neutrophils % ( Manual) 62, Lymphocytes % (Manual) 23, Monocytes % (Manual) 7, Eosinophils % ( Manual) 8H, Basophils % (Manual) 0, Band Neutrophils 0, Platelet Estimate Adequate, Platelet Morphology Normal, Polychromasia 2+, Hypochromasia 2+, Anisocytosis 1+, Macrocytosis 1+, Sodium Level 143, Potassium Level 3.8, Chloride Level 107, Carbon Dioxide Level 25, Anion Gap 11, Blood Urea Nitrogen 11, Creatinine 0.6, Estimat Glomerular Filtration Rate , Glucose Level 94, Calcium Level 8.5L, Iron Level 139, Total Iron Binding Capacity 239L, Percent Iron Saturation 58H, Unsaturated Iron Binding 100L, Soluble Transferrin Receptor [Pending], Ferritin 39, Troponin I < 0.30, Pro-B-Type Natriuretic Peptide 1176H Current Medications Medications (Trade) Dose Ordered Sig/Don Route PRN Reason Start Time Stop Time Status Last Admin Dose Admin Acetaminophen (Tylenol) 650 mg Q4H PRN ORAL Mild Pain/Temp > 100.5 12/26/16 19:00 01/25/17 18:59 Acetaminophen/ Hydrocodone Bitart ([place] 5/325) 1 tab Q3H PRN ORAL Mild Pain (Pain Scale 1-3) 12/26/16 19:30 01/02/17 19:29 12/28/16 17:39 Atorvastatin Calcium (Lipitor) 80 mg DAILY ORAL 12/27/16 09:00 01/26/17 08:59 12/28/16 09:06 Bisacodyl (Dulcolax) 5 mg DAILYPRN PRN ORAL Constipation 12/26/16 19:00 01/25/17 18:59 Carvedilol 3.125 mg 3.125 mg BID ORAL 12/27/16 09:00 01/26/17 08:59 12/28/16 17:38 Ceftriaxone Sodium/Dextrose (Rocephin/D5W) 55 ml @ 110 mls/hr Q24H IVPB 12/26/16 21:00 01/02/17 20:59 12/28/16 21:23 Epoetin Barak (Procrit (for non ESRD use)) 10,000 units SUN-SUN-SUN SUBQ 12/27/16 21:00 01/26/17 20:59 12/27/16 21:39 Ferrous Sulfate (Feosol) 325 mg THREE TIMES A DAY ORAL 12/27/16 09:00 01/26/17 08:59 12/28/16 17:51 Folic Acid (Folate) 1 mg DAILY ORAL 12/28/16 09:00 01/27/17 08:59 12/28/16 09:07 Iron Sucrose/ Sodium Chloride (Venofer/Sodium Chloride) 60 ml @ 240 mls/hr BEDTIME IVPB 12/27/16 21:00 12/31/16 21:14 12/28/16 20:48 Lactulose (Cephulac) 20 gm THREE TIMES A DAY PRN ORAL constipation 12/26/16 19:00 01/25/17 18:59 Losartan Potassium (Cozaar) 50 mg DAILY ORAL 12/27/16 09:00 01/26/17 08:59 12/27/16 08:55 Ondansetron HCl (Zofran) 4 mg Q6H PRN IVP Nausea & Vomiting 12/26/16 19:30 01/25/17 19:29 Pantoprazole (Protonix) 40 mg DAILY ORAL 12/27/16 09:00 01/26/17 08:59 12/28/16 09:07 Sertraline HCl (Zoloft) 100 mg DAILY ORAL 12/27/16 09:00 01/26/17 08:59 12/28/16 09:06 Temazepam 15 mg 15 mg HSPRN PRN ORAL Insomnia 12/26/16 19:30 01/02/17 19:29 12/28/16 00:44 MARLENY TURPIN Dec 28, 2016 22:26
--- NOTE | 2016-12-28 23:07 | Diagnostic Imaging Report ---
APPROVED REPORT CPT Code: 00627 Present Symptoms Comments: Side weakness RIGHT LEG: Venous imaging reveals acute thrombus in the superficial femoral to the calf veins. Imaging also reveals patency of the common femoral vein. Greater saphenous vein is within normal limits. LEFT LEG: Venous imaging reveals chronic thrombus in the superficial femoral vein. Remainder of the deep venous system is within normal limits. There is no evidence of thrombus within the common femoral, popliteal or tibial segments. The greater saphenous vein is also within normal limits. Doppler indicates normal spontaneous flow within these segments. ALIS Wayne was notified of abnormal results at 0845 hours.
[2016-12-29] VITALS: BP 135/68
[2016-12-29 04:00] VITALS: BP 127/62
[2016-12-29 07:53] VITALS: BP 140/70
[2016-12-29 12:15] VITALS: BP 137/65
[2016-12-29] MEDS: Losartan 50mg tab ORAL SCH (13:01)
[2016-12-29] MEDS: Atorvastatin 80mg tab ORAL SCH (13:01)
[2016-12-29] MEDS: Sertraline 100mg tab ORAL SCH (13:02)
--- NOTE | 2016-12-29 15:34 | General Progress Note ---
Assessment/Plan Assessment/Plan 1. 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 Patient has been admitted with similar symptoms before. Continues to refuse on blood transfusions. 2. Anemia r/o GI bleed - occult blood pending as is hgb electrophoresis (has not been completed before) 3. Syncope- 2/2 anemia 4. History of deep venous thrombosis s/p ivc filter of BOTH RIGHT AND LEFT LEG 5. Left hemiplegia. 6. Coronary artery disease. 7. Congestive heart failure. 8. Diabetes type 2. 9. Hypertension. 10. Hypercholesterolemia. 11. CVA 12. Pacemaker. RECS: 1. Intravenous Venofer. 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 The patient has refused blood transfusions in the past. Hgb >7 goal 2. Continue epogen sq 3. Hgb electrophoresis ordered (has not been completed before) 4. Anemia w/u has been reviewed 5. Have again stressed the importance of blood transfusions, she refuses 6. Status post inferior vena cava. HOLD OFF ON ANTICOAGULATION GIVEN ANEMIA 7. Appreciate consultation greatly, will continue to follow Sincerely, Dg Fairbanks MD Subjective Constitutional: Reports: no symptoms HEENT: Reports: no symptoms Cardiovascular: Reports: no symptoms Respiratory: Reports: no symptoms Gastrointestinal/Abdominal: Reports: no symptoms Genitourinary: Reports: no symptoms Neurologic/Psychiatric: Reports: no symptoms Endocrine: Reports: no symptoms Hematologic/Lymphatic: Reports: anemia Allergies: Coded Allergies: LATEX (Unverified Allergy, Mild, Rash, 09/03/14) QUININE (Unverified Allergy, Unknown, Rash Hives, 05/23/15) Quinine Sulfate Subjective NAD, pt refusing meds and breakfast, remains severely anemic, refuses blood Objective Last 24 Hour Vital Signs Date Time Temp Pulse Resp B/P Pulse Ox O2 Delivery O2 Flow Rate FiO2 12/29/16 13:01 137/65 12/29/16 12:15 98.0 61 20 137/65 97 Room Air 12/29/16 09:00 60 140/70 12/29/16 07:53 98.4 60 20 140/70 95 Room Air 12/29/16 04:00 98.6 72 20 127/62 98 Room Air 12/29/16 00:00 98.2 60 18 135/68 97 Room Air 12/28/16 20:00 97.0 75 20 134/88 98 Room Air 12/28/16 17:38 60 125/69 12/28/16 16:49 97.0 60 19 125/69 97 Room Air Intake and Output 12/28/16 12/29/16 19:00 07:00 Intake Total 600 ml Output Total 600 ml Balance 0 ml Intake Oral 600 ml Output Urine Total 600 ml Height (Feet): 5 Height (Inches): 4.00 Weight (Pounds): 144 General Appearance: no apparent distress EENT: PERRL/EOMI Neck: non-tender Cardiovascular: normal rate Respiratory/Chest: chest wall non-tender Extremities: normal range of motion Edema: no edema noted Leg (L), no edema noted Leg (R), no edema noted Pedal (L) , no edema noted Pedal (R), no edema noted Generalized Neurologic: normal mood/affect Skin: normal pigmentation Dg Fairbanks Dec 29, 2016 15:34
[2016-12-29 16:15] VITALS: BP 144/57
--- NOTE | 2016-12-29 18:15 | Internal Med Progress Note ---
Subjective Date of Service: Dec 29, 2016 Physician Name Delfin Martinez Attending Physician Lobito Jones MD Current Medications Medications (Trade) Dose Ordered Sig/Don Route PRN Reason Start Time Stop Time Status Last Admin Dose Admin Acetaminophen (Tylenol) 650 mg Q4H PRN ORAL Mild Pain/Temp > 100.5 12/26/16 19:00 01/25/17 18:59 Acetaminophen/ Hydrocodone Bitart ([place] 5/325) 1 tab Q3H PRN ORAL Mild Pain (Pain Scale 1-3) 12/26/16 19:30 01/02/17 19:29 12/28/16 17:39 Atorvastatin Calcium (Lipitor) 80 mg DAILY ORAL 12/27/16 09:00 01/26/17 08:59 12/29/16 13:01 Bisacodyl (Dulcolax) 5 mg DAILYPRN PRN ORAL Constipation 12/26/16 19:00 01/25/17 18:59 Carvedilol 3.125 mg 3.125 mg BID ORAL 12/27/16 09:00 01/26/17 08:59 12/29/16 17:30 Ceftriaxone Sodium/Dextrose (Rocephin/D5W) 55 ml @ 110 mls/hr Q24H IVPB 12/26/16 21:00 01/02/17 20:59 12/28/16 21:23 Epoetin Barak (Procrit (for non ESRD use)) 10,000 units SUN-SUN-SUN SUBQ 12/27/16 21:00 01/26/17 20:59 12/27/16 21:39 Ferrous Sulfate (Feosol) 325 mg THREE TIMES A DAY ORAL 12/27/16 09:00 01/26/17 08:59 12/29/16 17:30 Folic Acid (Folate) 1 mg DAILY ORAL 12/28/16 09:00 01/27/17 08:59 12/29/16 13:03 Iron Sucrose/ Sodium Chloride (Venofer/Sodium Chloride) 60 ml @ 240 mls/hr BEDTIME IVPB 12/27/16 21:00 12/31/16 21:14 12/28/16 20:48 Lactulose (Cephulac) 20 gm THREE TIMES A DAY PRN ORAL constipation 12/26/16 19:00 01/25/17 18:59 Losartan Potassium (Cozaar) 50 mg DAILY ORAL 12/27/16 09:00 01/26/17 08:59 12/29/16 13:01 Ondansetron HCl (Zofran) 4 mg Q6H PRN IVP Nausea & Vomiting 12/26/16 19:30 01/25/17 19:29 Pantoprazole (Protonix) 40 mg DAILY ORAL 12/27/16 09:00 01/26/17 08:59 12/29/16 13:01 Sertraline HCl (Zoloft) 100 mg DAILY ORAL 12/27/16 09:00 01/26/17 08:59 12/29/16 13:02 Temazepam 15 mg 15 mg HSPRN PRN ORAL Insomnia 12/26/16 19:30 01/02/17 19:29 12/29/16 00:36 Allergies: Coded Allergies: LATEX (Unverified Allergy, Mild, Rash, 09/03/14) QUININE (Unverified Allergy, Unknown, Rash Hives, 05/23/15) Quinine Sulfate ROS Limited/Unobtainable: No Constitutional: Reports: no symptoms HEENT: Reports: no symptoms Cardiovascular: Reports: no symptoms Respiratory: Reports: no symptoms Gastrointestinal/Abdominal: Reports: no symptoms Genitourinary: Reports: no symptoms Neurologic/Psychiatric: Reports: no symptoms Subjective 76 YO F admitted with altered mental status. Cover for [facility]Dr Jones. Objective Last Vital Signs Date Time Temp Pulse Resp B/P Pulse Ox O2 Delivery O2 Flow Rate FiO2 12/29/16 17:30 60 144/57 12/29/16 16:15 97.7 20 97 Room Air Microbiology Date/Time Source Procedure Growth Status 12/27/16 14:20 Indwelling Cath Urine Culture - Final NO GROWTH AFTER 48 HOURS Complete Intake and Output 12/28/16 12/29/16 19:00 07:00 Intake Total 600 ml Output Total 600 ml Balance 0 ml Intake Oral 600 ml Output Urine Total 600 ml Objective General: alert, cooperative, no distress, appears stated age Head: normocephalic, without obvious abnormality, atraumatic Eyes: conjunctivae/corneas clear. PERRL, EOM's intact Throat: lips, mucosa, and tongue normal. MMM Neck: supple, symmetrical, trachea midline, and no JVD Lungs: clear to auscultation bilaterally Heart: regular rate and rhythm, S1, S2 normal, no murmur, click, rub or gallop Abdomen: soft, non-tender, non-distended, bowel sounds normal; no masses or organomegaly Extremities: extremities normal, atraumatic, no cyanosis or edema Pulses: 2+ and symmetric Skin: skin color, texture, turgor normal; no rashes or lesions Neurologic: Left heiparesis; grossly normal, no focal deficits Assessment/Plan Problem List: (1) Sepsis (2) Altered mental status (3) UTI (urinary tract infection) Assessment & Plan: Continue Ceftriaxone; await culture results. (4) Severe anemia Assessment & Plan: Jehovah Witness. Continue IV venofer and epogen subcut per heme. (5) Iron deficiency anemia Assessment & Plan: Refused transfusion; cont IV venofer per heme. (6) Refusal of blood transfusions as patient is Holiness (7) Left hemiparesis (8) CAD (coronary artery disease) (9) CHF (congestive heart failure) (10) Diabetes mellitus (11) Hypertension Assessment & Plan: Cont cozaar and coreg. (12) Hypercholesteremia (13) DVT (deep venous thrombosis) Assessment & Plan: Acute right leg. S/P IVC. See heme note. Status: not improved DELFIN MARTINEZ Dec 29, 2016 18:15
[2016-12-29 19:00] VITALS: BP 166/57
[2016-12-29] MEDS: Norco 5mg/325mg tab ORAL PRN (19:04)
[2016-12-29] MEDS: cefTRIAXone 1 GM in D5W 55 ML IVPB SCH (21:00)
[2016-12-29] MEDS: Epogen (for non ESRD use) SUBQ SCH (21:07)
[2016-12-29] MEDS: Iron Sucrose 100 MG in NS 55 ML IVPB SCH (21:08)
--- NOTE | 2016-12-29 22:16 | Pulmonology Progress Note ---
Subjective Allergies: Coded Allergies: LATEX (Unverified Allergy, Mild, Rash, 09/03/14) QUININE (Unverified Allergy, Unknown, Rash Hives, 05/23/15) Quinine Sulfate Objective Last 24 Hour Vital Signs Date Time Temp Pulse Resp B/P Pulse Ox O2 Delivery O2 Flow Rate FiO2 12/29/16 19:00 97.9 80 18 166/57 Room Air 12/29/16 17:30 60 144/57 12/29/16 16:15 97.7 60 20 144/57 97 Room Air 12/29/16 13:01 137/65 12/29/16 12:15 98.0 61 20 137/65 97 Room Air 12/29/16 09:00 60 140/70 12/29/16 07:53 98.4 60 20 140/70 95 Room Air 12/29/16 04:00 98.6 72 20 127/62 98 Room Air 12/29/16 00:00 98.2 60 18 135/68 97 Room Air Intake and Output 12/28/16 12/29/16 19:00 07:00 Intake Total 600 ml Output Total 600 ml Balance 0 ml Intake Oral 600 ml Output Urine Total 600 ml Microbiology Date/Time Source Procedure Growth Status 12/27/16 14:20 Indwelling Cath Urine Culture - Final NO GROWTH AFTER 48 HOURS Complete Current Medications Medications (Trade) Dose Ordered Sig/Don Route PRN Reason Start Time Stop Time Status Last Admin Dose Admin Acetaminophen (Tylenol) 650 mg Q4H PRN ORAL Mild Pain/Temp > 100.5 12/26/16 19:00 01/25/17 18:59 Acetaminophen/ Hydrocodone Bitart ([place] 5/325) 1 tab Q3H PRN ORAL Mild Pain (Pain Scale 1-3) 12/26/16 19:30 01/02/17 19:29 12/29/16 19:04 Atorvastatin Calcium (Lipitor) 80 mg DAILY ORAL 12/27/16 09:00 01/26/17 08:59 12/29/16 13:01 Bisacodyl (Dulcolax) 5 mg DAILYPRN PRN ORAL Constipation 12/26/16 19:00 01/25/17 18:59 Carvedilol 3.125 mg 3.125 mg BID ORAL 12/27/16 09:00 01/26/17 08:59 12/29/16 17:30 Ceftriaxone Sodium/Dextrose (Rocephin/D5W) 55 ml @ 110 mls/hr Q24H IVPB 12/26/16 21:00 01/02/17 20:59 12/28/16 21:23 Epoetin Barak (Procrit (for non ESRD use)) 10,000 units SUN-WED-SUN SUBQ 12/27/16 21:00 01/26/17 20:59 12/29/16 21:07 Ferrous Sulfate (Feosol) 325 mg THREE TIMES A DAY ORAL 12/27/16 09:00 01/26/17 08:59 12/29/16 17:30 Folic Acid (Folate) 1 mg DAILY ORAL 12/28/16 09:00 01/27/17 08:59 12/29/16 13:03 Iron Sucrose/ Sodium Chloride (Venofer/Sodium Chloride) 60 ml @ 240 mls/hr BEDTIME IVPB 12/27/16 21:00 12/31/16 21:14 12/29/16 21:08 Lactulose (Cephulac) 20 gm THREE TIMES A DAY PRN ORAL constipation 12/26/16 19:00 01/25/17 18:59 Losartan Potassium (Cozaar) 50 mg DAILY ORAL 12/27/16 09:00 01/26/17 08:59 12/29/16 13:01 Ondansetron HCl (Zofran) 4 mg Q6H PRN IVP Nausea & Vomiting 12/26/16 19:30 01/25/17 19:29 Pantoprazole (Protonix) 40 mg DAILY ORAL 12/27/16 09:00 01/26/17 08:59 12/29/16 13:01 Sertraline HCl (Zoloft) 100 mg DAILY ORAL 12/27/16 09:00 01/26/17 08:59 12/29/16 13:02 Temazepam 15 mg 15 mg HSPRN PRN ORAL Insomnia 12/26/16 19:30 01/02/17 19:29 12/29/16 00:36 MARLENY TURPIN Dec 29, 2016 22:16
[2016-12-30] VITALS: BP 159/63
[2016-12-30 07:15] LABS: MEAN CORPUSCULAR HGB CONC 27.6 G/DL (32.0-36.0); MEAN CORPUSCULAR VOLUME 101 FL (80-99); MEAN PLATELET VOLUME 5.2 FL (6.5-10.1); PLATELET COUNT 242 K/UL (150-450); RED BLOOD COUNT 2.04 M/UL (4.20-5.40); RED CELL DISTRIBUTION WIDTH 19.7 % (11.6-14.8); WHITE BLOOD COUNT 6.2 K/UL (4.8-10.8)
[2016-12-30 08:35] VITALS: BP 141/70
[2016-12-30 09:31] LABS: ANISOCYTOSIS 1+; BAND NEUTROPHILS % (MANUAL) 0 % (0-8); BASOPHILS % (MANUAL) 0 % (0-2); EOSINOPHILS % (MANUAL) 2 % (0-3); HYPOCHROMASIA 2+; LYMPHOCYTES % (MANUAL) 24 % (20-45); MACROCYTES 1+; NEUTROPHILS % (MANUAL) 70 % (45-75); PLATELET ESTIMATE ADEQUATE; PLATELET MORPHOLOGY NORMAL; POLYCHROMASIA 1+; TOTAL CELLS COUNTED 100
[2016-12-30] MEDS: Atorvastatin 80mg tab ORAL SCH (09:33)
[2016-12-30] MEDS: Sertraline 100mg tab ORAL SCH (09:34)
[2016-12-30] MEDS: Losartan 50mg tab ORAL SCH (09:35)
[2016-12-30 12:45] VITALS: BP 129/71
[2016-12-30 16:51] VITALS: BP 92/50
--- NOTE | 2016-12-30 18:03 | General Progress Note ---
Assessment/Plan Status: stable Assessment/Plan 1. Severe anemia 2/2 iron deficiency - retic count is high, but not sufficiently elevated given degree of anemia, patient begun on epo and iron in light of refusing blood transfusions (Jewish) and may take several days/weeks to improve, however pt refusing today. Patient has been admitted with similar symptoms before. Continues to refuse on blood transfusions. 2. Anemia r/o GI bleed - occult blood pending as is hgb electrophoresis (has not been completed before) 3. Syncope- 2/2 anemia 4. History of deep venous thrombosis s/p ivc filter of BOTH RIGHT AND LEFT LEG 5. Left hemiplegia. 6. Coronary artery disease. 7. Congestive heart failure. 8. Diabetes type 2. 9. Hypertension. 10. Hypercholesterolemia. 11. CVA 12. Pacemaker. RECS: 1. Intravenous Venofer. The patient is a Jewish. The patient has refused blood transfusions in the past. Hgb >7 goal 2. Continue epogen sq 3. Hgb electrophoresis ordered (has not been completed before) 4. Anemia w/u has been reviewed 5. Have again stressed the importance of blood transfusions, she refuses 6. Status post inferior vena cava. HOLD OFF ON ANTICOAGULATION GIVEN ANEMIA 7. Appreciate consultation greatly, will continue to follow Sincerely, Dg Fairbanks MD Subjective Constitutional: Reports: no symptoms HEENT: Reports: no symptoms Cardiovascular: Reports: no symptoms Respiratory: Reports: no symptoms Gastrointestinal/Abdominal: Reports: no symptoms Genitourinary: Reports: no symptoms Neurologic/Psychiatric: Reports: no symptoms Endocrine: Reports: no symptoms Hematologic/Lymphatic: Reports: anemia Allergies: Coded Allergies: LATEX (Unverified Allergy, Mild, Rash, 09/03/14) QUININE (Unverified Allergy, Unknown, Rash Hives, 05/23/15) Quinine Sulfate Subjective NAD, resting, remains severely anemic, refuses blood Objective Last 24 Hour Vital Signs Date Time Temp Pulse Resp B/P Pulse Ox O2 Delivery O2 Flow Rate FiO2 12/30/16 17:12 60 92/50 12/30/16 16:51 97.5 60 19 92/50 98 Room Air 12/30/16 12:45 96.4 60 19 129/71 98 Room Air 12/30/16 09:36 62 141/70 12/30/16 09:35 141/70 12/30/16 08:35 98.0 62 19 141/70 98 Room Air 12/30/16 00:00 98.0 77 18 159/63 98 Room Air 12/29/16 20:03 97.7 12/29/16 19:00 97.9 80 18 166/57 Room Air Intake and Output 12/29/16 12/30/16 19:00 07:00 Intake Total 240 ml 360 ml Output Total 550 ml Balance -310 ml 360 ml Intake Oral 240 ml 360 ml Output Urine Total 550 ml Laboratory Tests 12/30/16 04:30: White Blood Count 6.2, Red Blood Count 2.04L, Hemoglobin 5.7*L, Hematocrit 20.7L , Mean Corpuscular Volume 101H, Mean Corpuscular Hemoglobin 28.0, Mean Corpuscular Hemoglobin Concent 27.6L, Red Cell Distribution Width 19.7H, Platelet Count 242, Mean Platelet Volume 5.2L, Neutrophils (%) (Auto) , Lymphocytes (%) (Auto) , Monocytes (%) (Auto) , Eosinophils (%) (Auto) , Basophils (%) (Auto) , Differential Total Cells Counted 100, Neutrophils % ( Manual) 70, Lymphocytes % (Manual) 24, Monocytes % (Manual) 4, Eosinophils % ( Manual) 2, Basophils % (Manual) 0, Band Neutrophils 0, Platelet Estimate Adequate, Platelet Morphology Normal, Polychromasia 1+, Hypochromasia 2+, Anisocytosis 1+, Macrocytosis 1+ Height (Feet): 5 Height (Inches): 4.00 Weight (Pounds): 144 General Appearance: WD/WN EENT: PERRL/EOMI Neck: non-tender Cardiovascular: normal peripheral pulses Respiratory/Chest: chest wall non-tender Abdomen: normal bowel sounds Extremities: normal inspection Edema: no edema noted Leg (L), no edema noted Leg (R), no edema noted Pedal (L) , no edema noted Pedal (R), no edema noted Generalized Neurologic: alert, oriented x 3 Skin: warm/dry Dg Fairbanks Dec 30, 2016 18:03
--- NOTE | 2016-12-30 18:16 | Internal Med Progress Note ---
Subjective Date of Service: Dec 30, 2016 Physician Name Delfin Martinez Attending Physician Lobito Jones MD Current Medications Medications (Trade) Dose Ordered Sig/Don Route PRN Reason Start Time Stop Time Status Last Admin Dose Admin Acetaminophen (Tylenol) 650 mg Q4H PRN ORAL Mild Pain/Temp > 100.5 12/26/16 19:00 01/25/17 18:59 Acetaminophen/ Hydrocodone Bitart ([place] 5/325) 1 tab Q3H PRN ORAL Mild Pain (Pain Scale 1-3) 12/26/16 19:30 01/02/17 19:29 12/29/16 19:04 Atorvastatin Calcium (Lipitor) 80 mg DAILY ORAL 12/27/16 09:00 01/26/17 08:59 12/30/16 09:33 Bisacodyl (Dulcolax) 5 mg DAILYPRN PRN ORAL Constipation 12/26/16 19:00 01/25/17 18:59 Carvedilol 3.125 mg 3.125 mg BID ORAL 12/27/16 09:00 01/26/17 08:59 12/30/16 09:36 Ceftriaxone Sodium/Dextrose (Rocephin/D5W) 55 ml @ 110 mls/hr Q24H IVPB 12/26/16 21:00 01/02/17 20:59 12/29/16 21:00 Epoetin Barak (Procrit (for non ESRD use)) 10,000 units Q48H SUBQ 12/31/16 21:00 01/30/17 20:59 Ferrous Sulfate (Feosol) 325 mg THREE TIMES A DAY ORAL 12/27/16 09:00 01/26/17 08:59 12/30/16 17:16 Folic Acid (Folate) 1 mg DAILY ORAL 12/28/16 09:00 01/27/17 08:59 12/30/16 09:39 Iron Sucrose/ Sodium Chloride (Venofer/Sodium Chloride) 60 ml @ 240 mls/hr BEDTIME IVPB 12/27/16 21:00 12/31/16 21:14 12/29/16 21:08 Lactulose (Cephulac) 20 gm THREE TIMES A DAY PRN ORAL constipation 12/26/16 19:00 01/25/17 18:59 Losartan Potassium (Cozaar) 50 mg DAILY ORAL 12/27/16 09:00 01/26/17 08:59 12/30/16 09:35 Ondansetron HCl (Zofran) 4 mg Q6H PRN IVP Nausea & Vomiting 12/26/16 19:30 01/25/17 19:29 Pantoprazole (Protonix) 40 mg DAILY ORAL 12/27/16 09:00 01/26/17 08:59 12/30/16 09:36 Sertraline HCl (Zoloft) 100 mg DAILY ORAL 12/27/16 09:00 01/26/17 08:59 12/30/16 09:34 Temazepam 15 mg 15 mg HSPRN PRN ORAL Insomnia 12/26/16 19:30 01/02/17 19:29 12/30/16 00:02 Allergies: Coded Allergies: LATEX (Unverified Allergy, Mild, Rash, 09/03/14) QUININE (Unverified Allergy, Unknown, Rash Hives, 05/23/15) Quinine Sulfate ROS Limited/Unobtainable: No Constitutional: Reports: no symptoms HEENT: Reports: no symptoms Cardiovascular: Reports: no symptoms Respiratory: Reports: no symptoms Gastrointestinal/Abdominal: Reports: no symptoms Genitourinary: Reports: no symptoms Neurologic/Psychiatric: Reports: no symptoms Subjective 76 YO F admitted with altered mental status. Cover for [facility]-Dr Jones. Objective Last Vital Signs Date Time Temp Pulse Resp B/P Pulse Ox O2 Delivery O2 Flow Rate FiO2 12/30/16 17:12 60 92/50 12/30/16 16:51 97.5 19 98 Room Air Laboratory Tests Test 12/30/16 04:30 White Blood Count 6.2 K/UL (4.8-10.8) Red Blood Count 2.04 M/UL (4.20-5.40) L Hemoglobin 5.7 G/DL (12.0-16.0) *L Hematocrit 20.7 % (37.0-47.0) L Mean Corpuscular Volume 101 FL (80-99) H Mean Corpuscular Hemoglobin 28.0 PG (27.0-31.0) Mean Corpuscular Hemoglobin Concent 27.6 G/DL (32.0-36.0) L Red Cell Distribution Width 19.7 % (11.6-14.8) H Platelet Count 242 K/UL (150-450) Mean Platelet Volume 5.2 FL (6.5-10.1) L Neutrophils (%) (Auto) % (45.0-75.0) Lymphocytes (%) (Auto) % (20.0-45.0) Monocytes (%) (Auto) % (1.0-10.0) Eosinophils (%) (Auto) % (0.0-3.0) Basophils (%) (Auto) % (0.0-2.0) Differential Total Cells Counted 100 Neutrophils % (Manual) 70 % (45-75) Lymphocytes % (Manual) 24 % (20-45) Monocytes % (Manual) 4 % (1-10) Eosinophils % (Manual) 2 % (0-3) Basophils % (Manual) 0 % (0-2) Band Neutrophils 0 % (0-8) Platelet Estimate Adequate Platelet Morphology Normal Polychromasia 1+ Hypochromasia 2+ Anisocytosis 1+ Macrocytosis 1+ Intake and Output 12/29/16 12/30/16 19:00 07:00 Intake Total 240 ml 360 ml Output Total 550 ml Balance -310 ml 360 ml Intake Oral 240 ml 360 ml Output Urine Total 550 ml Objective General: alert, cooperative, no distress, appears stated age Head: normocephalic, without obvious abnormality, atraumatic Eyes: conjunctivae/corneas clear. PERRL, EOM's intact Throat: lips, mucosa, and tongue normal. MMM Neck: supple, symmetrical, trachea midline, and no JVD Lungs: clear to auscultation bilaterally Heart: regular rate and rhythm, S1, S2 normal, no murmur, click, rub or gallop Abdomen: soft, non-tender, non-distended, bowel sounds normal; no masses or organomegaly Extremities: extremities normal, atraumatic, no cyanosis or edema Pulses: 2+ and symmetric Skin: skin color, texture, turgor normal; no rashes or lesions Neurologic: Left heiparesis; grossly normal, no focal deficits Assessment/Plan Problem List: (1) Sepsis (2) Altered mental status (3) UTI (urinary tract infection) Assessment & Plan: Continue Ceftriaxone; await culture results. (4) Severe anemia Assessment & Plan: Jehovah Witness. Continue IV venofer and epogen subcut per heme. (5) Iron deficiency anemia Assessment & Plan: Refused transfusion; cont IV venofer per heme. (6) Refusal of blood transfusions as patient is Alevism (7) Left hemiparesis (8) CAD (coronary artery disease) (9) CHF (congestive heart failure) (10) Diabetes mellitus (11) Hypertension Assessment & Plan: Cont cozaar and coreg. (12) Hypercholesteremia (13) DVT (deep venous thrombosis) Assessment & Plan: Acute right leg. S/P IVC. See heme note. Status: not improved DELFIN MARTINEZ Dec 30, 2016 18:16
[2016-12-30 21:00] VITALS: BP 139/66
[2016-12-30] MEDS: cefTRIAXone 1 GM in D5W 55 ML IVPB SCH (21:25)
[2016-12-30] MEDS: D5 1/2NS 1,000 ML IV SCH (21:25)
[2016-12-30] MEDS: Iron Sucrose 100 MG in NS 55 ML IVPB SCH (22:57)
[2016-12-30] MEDS: Norco 5mg/325mg tab ORAL PRN (23:21)
--- NOTE | 2016-12-30 23:57 | Pulmonology Progress Note ---
Subjective Allergies: Coded Allergies: LATEX (Unverified Allergy, Mild, Rash, 09/03/14) QUININE (Unverified Allergy, Unknown, Rash Hives, 05/23/15) Quinine Sulfate Objective Last 24 Hour Vital Signs Date Time Temp Pulse Resp B/P Pulse Ox O2 Delivery O2 Flow Rate FiO2 12/30/16 17:12 60 92/50 12/30/16 16:51 97.5 60 19 92/50 98 Room Air 12/30/16 12:45 96.4 60 19 129/71 98 Room Air 12/30/16 09:36 62 141/70 12/30/16 09:35 141/70 12/30/16 08:35 98.0 62 19 141/70 98 Room Air 12/30/16 00:00 98.0 77 18 159/63 98 Room Air Intake and Output 12/29/16 12/30/16 19:00 07:00 Intake Total 240 ml 360 ml Output Total 550 ml Balance -310 ml 360 ml Intake Oral 240 ml 360 ml Output Urine Total 550 ml Laboratory Tests 12/30/16 04:30: White Blood Count 6.2, Red Blood Count 2.04L, Hemoglobin 5.7*L, Hematocrit 20.7L , Mean Corpuscular Volume 101H, Mean Corpuscular Hemoglobin 28.0, Mean Corpuscular Hemoglobin Concent 27.6L, Red Cell Distribution Width 19.7H, Platelet Count 242, Mean Platelet Volume 5.2L, Neutrophils (%) (Auto) , Lymphocytes (%) (Auto) , Monocytes (%) (Auto) , Eosinophils (%) (Auto) , Basophils (%) (Auto) , Differential Total Cells Counted 100, Neutrophils % ( Manual) 70, Lymphocytes % (Manual) 24, Monocytes % (Manual) 4, Eosinophils % ( Manual) 2, Basophils % (Manual) 0, Band Neutrophils 0, Platelet Estimate Adequate, Platelet Morphology Normal, Polychromasia 1+, Hypochromasia 2+, Anisocytosis 1+, Macrocytosis 1+ Current Medications Medications (Trade) Dose Ordered Sig/Don Route PRN Reason Start Time Stop Time Status Last Admin Dose Admin Acetaminophen (Tylenol) 650 mg Q4H PRN ORAL Mild Pain/Temp > 100.5 12/26/16 19:00 01/25/17 18:59 Acetaminophen/ Hydrocodone Bitart ([place] 5/325) 1 tab Q3H PRN ORAL Mild Pain (Pain Scale 1-3) 12/26/16 19:30 01/02/17 19:29 12/30/16 23:21 Atorvastatin Calcium (Lipitor) 80 mg DAILY ORAL 12/27/16 09:00 01/26/17 08:59 12/30/16 09:33 Bisacodyl (Dulcolax) 5 mg DAILYPRN PRN ORAL Constipation 12/26/16 19:00 01/25/17 18:59 Carvedilol 3.125 mg 3.125 mg BID ORAL 12/27/16 09:00 01/26/17 08:59 12/30/16 09:36 Ceftriaxone Sodium/Dextrose (Rocephin/D5W) 55 ml @ 110 mls/hr Q24H IVPB 12/26/16 21:00 01/02/17 20:59 12/30/16 21:25 Dextrose/Sodium Chloride (D5 0.45% NS) 1,000 ml @ 75 mls/hr [id number] IV 12/30/16 19:45 01/29/17 19:44 12/30/16 21:25 Epoetin Barak 63326 units 10,000 units Q48H SUBQ 12/31/16 21:00 01/30/17 20:59 Ferrous Sulfate (Feosol) 325 mg THREE TIMES A DAY ORAL 12/27/16 09:00 01/26/17 08:59 12/30/16 17:16 Folic Acid (Folate) 1 mg DAILY ORAL 12/28/16 09:00 01/27/17 08:59 12/30/16 09:39 Iron Sucrose/ Sodium Chloride (Venofer/Sodium Chloride) 60 ml @ 240 mls/hr BEDTIME IVPB 12/27/16 21:00 12/31/16 21:14 12/30/16 22:57 Lactulose (Cephulac) 20 gm THREE TIMES A DAY PRN ORAL constipation 12/26/16 19:00 01/25/17 18:59 Losartan Potassium (Cozaar) 50 mg DAILY ORAL 12/27/16 09:00 01/26/17 08:59 12/30/16 09:35 Ondansetron HCl (Zofran) 4 mg Q6H PRN IVP Nausea & Vomiting 12/26/16 19:30 01/25/17 19:29 Pantoprazole (Protonix) 40 mg DAILY ORAL 12/27/16 09:00 01/26/17 08:59 12/30/16 09:36 Sertraline HCl (Zoloft) 100 mg DAILY ORAL 12/27/16 09:00 01/26/17 08:59 12/30/16 09:34 Temazepam 15 mg 15 mg HSPRN PRN ORAL Insomnia 12/26/16 19:30 01/02/17 19:29 12/30/16 23:21 MARLENY TURPIN Dec 30, 2016 23:57
[2016-12-31] MEDS: Sertraline 100mg tab ORAL SCH (08:13)
[2016-12-31] MEDS: Losartan 50mg tab ORAL SCH (08:14)
[2016-12-31] MEDS: Atorvastatin 80mg tab ORAL SCH (08:14)
[2016-12-31] MEDS: D5 1/2NS 1,000 ML IV SCH (08:15)
[2016-12-31 08:23] VITALS: BP 157/91
[2016-12-31] MEDS: Norco 5mg/325mg tab ORAL PRN ×3 (10:53→23:47)
[2016-12-31 12:40] VITALS: BP 98/57
[2016-12-31] MEDS ORDERED: NS 275ml ONE (14:03)
[2016-12-31] MEDS ORDERED: Tubing IV Secondary IV ONE (14:03)
[2016-12-31 16:12] VITALS: BP 132/79
--- NOTE | 2016-12-31 17:09 | Internal Med Progress Note ---
Subjective Date of Service: Dec 31, 2016 Physician Name Delfin Martinez Attending Physician Lobito Jones MD Current Medications Medications (Trade) Dose Ordered Sig/Don Route PRN Reason Start Time Stop Time Status Last Admin Dose Admin Acetaminophen (Tylenol) 650 mg Q4H PRN ORAL Mild Pain/Temp > 100.5 12/26/16 19:00 01/25/17 18:59 Acetaminophen/ Hydrocodone Bitart ([place] 5/325) 1 tab Q3H PRN ORAL Mild Pain (Pain Scale 1-3) 12/26/16 19:30 01/02/17 19:29 12/31/16 10:53 Atorvastatin Calcium (Lipitor) 80 mg DAILY ORAL 12/27/16 09:00 01/26/17 08:59 12/31/16 08:14 Bisacodyl (Dulcolax) 5 mg DAILYPRN PRN ORAL Constipation 12/26/16 19:00 01/25/17 18:59 Carvedilol 3.125 mg 3.125 mg BID ORAL 12/27/16 09:00 01/26/17 08:59 12/31/16 08:14 Ceftriaxone Sodium/Dextrose (Rocephin/D5W) 55 ml @ 110 mls/hr Q24H IVPB 12/26/16 21:00 01/02/17 20:59 12/30/16 21:25 Dextrose/Sodium Chloride (D5 0.45% NS) 1,000 ml @ 75 mls/hr [id number] IV 12/30/16 19:45 01/29/17 19:44 12/31/16 08:15 Epoetin Barak 11070 units 10,000 units Q48H SUBQ 12/31/16 21:00 01/30/17 20:59 Ferrous Sulfate (Feosol) 325 mg THREE TIMES A DAY ORAL 12/27/16 09:00 01/26/17 08:59 12/31/16 13:09 Folic Acid (Folate) 1 mg DAILY ORAL 12/28/16 09:00 01/27/17 08:59 12/31/16 08:13 Iron Sucrose/ Sodium Chloride (Venofer/Sodium Chloride) 60 ml @ 240 mls/hr BEDTIME IVPB 12/27/16 21:00 12/31/16 21:14 12/30/16 22:57 Lactulose (Cephulac) 20 gm THREE TIMES A DAY PRN ORAL constipation 12/26/16 19:00 01/25/17 18:59 Losartan Potassium (Cozaar) 50 mg DAILY ORAL 12/27/16 09:00 01/26/17 08:59 12/31/16 08:14 Ondansetron HCl (Zofran) 4 mg Q6H PRN IVP Nausea & Vomiting 12/26/16 19:30 01/25/17 19:29 Pantoprazole (Protonix) 40 mg DAILY ORAL 12/27/16 09:00 01/26/17 08:59 12/31/16 08:13 Sertraline HCl (Zoloft) 100 mg DAILY ORAL 12/27/16 09:00 01/26/17 08:59 12/31/16 08:13 Temazepam 15 mg 15 mg HSPRN PRN ORAL Insomnia 12/26/16 19:30 01/02/17 19:29 12/30/16 23:21 Allergies: Coded Allergies: LATEX (Unverified Allergy, Mild, Rash, 09/03/14) QUININE (Unverified Allergy, Unknown, Rash Hives, 05/23/15) Quinine Sulfate ROS Limited/Unobtainable: No Constitutional: Reports: no symptoms HEENT: Reports: no symptoms Cardiovascular: Reports: no symptoms Respiratory: Reports: no symptoms Gastrointestinal/Abdominal: Reports: no symptoms Genitourinary: Reports: no symptoms Neurologic/Psychiatric: Reports: no symptoms Subjective 76 YO F admitted with altered mental status. Cover for [facility]-Dr Jones. Objective Last Vital Signs Date Time Temp Pulse Resp B/P Pulse Ox O2 Delivery O2 Flow Rate FiO2 12/31/16 16:12 98.0 63 18 132/79 99 Room Air Intake and Output 12/30/16 12/31/16 19:00 07:00 Intake Total 240 ml 765 ml Output Total 350 ml 200 ml Balance -110 ml 565 ml Intake Oral 240 ml IV Total 765 ml Output Urine Total 350 ml 200 ml Objective General: alert, cooperative, no distress, appears stated age Head: normocephalic, without obvious abnormality, atraumatic Eyes: conjunctivae/corneas clear. PERRL, EOM's intact Throat: lips, mucosa, and tongue normal. MMM Neck: supple, symmetrical, trachea midline, and no JVD Lungs: clear to auscultation bilaterally Heart: regular rate and rhythm, S1, S2 normal, no murmur, click, rub or gallop Abdomen: soft, non-tender, non-distended, bowel sounds normal; no masses or organomegaly Extremities: extremities normal, atraumatic, no cyanosis or edema Pulses: 2+ and symmetric Skin: skin color, texture, turgor normal; no rashes or lesions Neurologic: Left heiparesis; grossly normal, no focal deficits Assessment/Plan Problem List: (1) Sepsis (2) Altered mental status (3) UTI (urinary tract infection) Assessment & Plan: Continue Ceftriaxone (4) Severe anemia Assessment & Plan: Jehovah Witness. Continue IV venofer and epogen subcut per heme. (5) Iron deficiency anemia Assessment & Plan: Refused transfusion; cont IV venofer per heme. (6) Refusal of blood transfusions as patient is Lutheran (7) Left hemiparesis (8) CAD (coronary artery disease) (9) CHF (congestive heart failure) (10) Diabetes mellitus (11) Hypertension Assessment & Plan: Cont cozaar and coreg. (12) Hypercholesteremia (13) DVT (deep venous thrombosis) Assessment & Plan: Acute right leg. S/P IVC. See heme note. Status: stable DELFIN MARTINEZ Dec 31, 2016 17:09
[2016-12-31 20:00] VITALS: BP 132/62
[2016-12-31] MEDS: cefTRIAXone 1 GM in D5W 55 ML IVPB SCH (20:57)
[2016-12-31] MEDS: Iron Sucrose 100 MG in NS 55 ML IVPB SCH (22:14)
--- NOTE | 2016-12-31 22:50 | General Progress Note ---
Assessment/Plan Assessment/Plan 1. Severe anemia 2/2 iron deficiency - retic count is high, but not sufficiently elevated given degree of anemia, patient begun on epo and iron in light of refusing blood transfusions (Mandaeism) and may take several days/weeks to improve, however pt refusing today. Patient has been admitted with similar symptoms before. Continues to refuse on blood transfusions. 2. Anemia r/o GI bleed - occult blood pending as is hgb electrophoresis (has not been completed before) 3. Syncope- 2/2 anemia 4. History of deep venous thrombosis s/p ivc filter of BOTH RIGHT AND LEFT LEG 5. Left hemiplegia. 6. Left Upper extremity swelling 7. Coronary artery disease. 8. Congestive heart failure. 9. Diabetes type 2. 10. Hypertension. 11. Hypercholesterolemia. 12. CVA 13. Pacemaker. RECS: 1. Intravenous Venofer. The patient is a Mandaeism. The patient has refused blood transfusions in the past. Hgb >7 goal 2. Continue epogen sq 3. Hgb electrophoresis ordered (has not been completed before) 4. Anemia w/u has been reviewed 5. Have again stressed the importance of blood transfusions, she refuses 6. Status post inferior vena cava. HOLD OFF ON ANTICOAGULATION GIVEN ANEMIA 7. Venous duplex of L upper extremity ordered and is pending 8. Appreciate consultation greatly, will continue to follow Sincerely, Dg Fairbanks MD Subjective Constitutional: Reports: no symptoms HEENT: Reports: no symptoms Cardiovascular: Reports: no symptoms Respiratory: Reports: no symptoms Gastrointestinal/Abdominal: Reports: no symptoms Genitourinary: Reports: no symptoms Neurologic/Psychiatric: Reports: no symptoms Endocrine: Reports: no symptoms Hematologic/Lymphatic: Reports: anemia Allergies: Coded Allergies: LATEX (Unverified Allergy, Mild, Rash, 09/03/14) QUININE (Unverified Allergy, Unknown, Rash Hives, 05/23/15) Quinine Sulfate Subjective anemic, refuses blood, LUE swelling Objective Last 24 Hour Vital Signs Date Time Temp Pulse Resp B/P Pulse Ox O2 Delivery O2 Flow Rate FiO2 12/31/16 20:16 98.0 12/31/16 20:00 97.6 60 20 132/62 98 Room Air 12/31/16 17:23 60 147/69 12/31/16 16:12 98.0 63 18 132/79 99 Room Air 12/31/16 12:40 98.4 61 18 98/57 99 Room Air 12/31/16 08:23 97.0 60 19 157/91 100 Room Air 12/31/16 08:14 157/91 12/31/16 08:14 60 157/91 Intake and Output 12/30/16 12/31/16 19:00 07:00 Intake Total 240 ml 765 ml Output Total 350 ml 200 ml Balance -110 ml 565 ml Intake Oral 240 ml IV Total 765 ml Output Urine Total 350 ml 200 ml Laboratory Tests 12/31/16 18:50: Stool Occult Blood [Pending] Height (Feet): 5 Height (Inches): 4.00 Weight (Pounds): 144 General Appearance: no apparent distress EENT: PERRL/EOMI Neck: non-tender Cardiovascular: normal peripheral pulses Respiratory/Chest: chest wall non-tender Abdomen: normal bowel sounds Extremities: normal range of motion Edema: 1+ Arm (L), no edema noted Arm (R), no edema noted Leg (L), no edema noted Leg (R), no edema noted Pedal (L), no edema noted Pedal (R) Neurologic: engraver picture [id number] grossly normal Skin: warm/dry Dg Fairbanks Dec 31, 2016 22:50
[2016-12-31] MEDS: Epogen (for non ESRD use) SUBQ SCH (23:02)
--- NOTE | 2016-12-31 23:27 | Pulmonology Progress Note ---
Subjective Allergies: Coded Allergies: LATEX (Unverified Allergy, Mild, Rash, 09/03/14) QUININE (Unverified Allergy, Unknown, Rash Hives, 05/23/15) Quinine Sulfate Objective Last 24 Hour Vital Signs Date Time Temp Pulse Resp B/P Pulse Ox O2 Delivery O2 Flow Rate FiO2 12/31/16 20:16 98.0 12/31/16 20:00 97.6 60 20 132/62 98 Room Air 12/31/16 17:23 60 147/69 12/31/16 16:12 98.0 63 18 132/79 99 Room Air 12/31/16 12:40 98.4 61 18 98/57 99 Room Air 12/31/16 08:23 97.0 60 19 157/91 100 Room Air 12/31/16 08:14 157/91 12/31/16 08:14 60 157/91 Intake and Output 12/30/16 12/31/16 19:00 07:00 Intake Total 240 ml 765 ml Output Total 350 ml 200 ml Balance -110 ml 565 ml Intake Oral 240 ml IV Total 765 ml Output Urine Total 350 ml 200 ml Laboratory Tests 12/31/16 18:50: Stool Occult Blood [Pending] Current Medications Medications (Trade) Dose Ordered Sig/Don Route PRN Reason Start Time Stop Time Status Last Admin Dose Admin Acetaminophen (Tylenol) 650 mg Q4H PRN ORAL Mild Pain/Temp > 100.5 12/26/16 19:00 01/25/17 18:59 Acetaminophen/ Hydrocodone Bitart ([place] 5/325) 1 tab Q3H PRN ORAL Mild Pain (Pain Scale 1-3) 12/26/16 19:30 01/02/17 19:29 12/31/16 19:14 Atorvastatin Calcium (Lipitor) 80 mg DAILY ORAL 12/27/16 09:00 01/26/17 08:59 12/31/16 08:14 Bisacodyl (Dulcolax) 5 mg DAILYPRN PRN ORAL Constipation 12/26/16 19:00 01/25/17 18:59 Carvedilol 3.125 mg 3.125 mg BID ORAL 12/27/16 09:00 01/26/17 08:59 12/31/16 17:23 Ceftriaxone Sodium/Dextrose (Rocephin/D5W) 55 ml @ 110 mls/hr Q24H IVPB 12/26/16 21:00 01/02/17 20:59 12/31/16 20:57 Epoetin Barak (Procrit (for non ESRD use)) 10,000 units Q48H SUBQ 12/31/16 21:00 01/30/17 20:59 12/31/16 23:02 Ferrous Sulfate (Feosol) 325 mg THREE TIMES A DAY ORAL 12/27/16 09:00 01/26/17 08:59 12/31/16 17:23 Folic Acid (Folate) 1 mg DAILY ORAL 12/28/16 09:00 01/27/17 08:59 12/31/16 08:13 Lactulose (Cephulac) 20 gm THREE TIMES A DAY PRN ORAL constipation 12/26/16 19:00 01/25/17 18:59 Losartan Potassium (Cozaar) 50 mg DAILY ORAL 12/27/16 09:00 01/26/17 08:59 12/31/16 08:14 Ondansetron HCl (Zofran) 4 mg Q6H PRN IVP Nausea & Vomiting 12/26/16 19:30 01/25/17 19:29 Pantoprazole (Protonix) 40 mg DAILY ORAL 12/27/16 09:00 01/26/17 08:59 12/31/16 08:13 Sertraline HCl (Zoloft) 100 mg DAILY ORAL 12/27/16 09:00 01/26/17 08:59 12/31/16 08:13 Temazepam (Restoril) 15 mg HSPRN PRN ORAL Insomnia 12/26/16 19:30 01/02/17 19:29 12/30/16 23:21 MARLENY TURPIN Dec 31, 2016 23:27
[2017-01-01] VITALS: BP 150/72
[2017-01-01 04:00] VITALS: BP 146/73
[2017-01-01 08:00] VITALS: BP 165/56
[2017-01-01] MEDS: Sertraline 100mg tab ORAL SCH (09:04)
[2017-01-01] MEDS: Losartan 50mg tab ORAL SCH (09:05)
[2017-01-01] MEDS: Atorvastatin 80mg tab ORAL SCH (09:05)
[2017-01-01 12:00] VITALS: BP 116/70
--- NOTE | 2017-01-01 13:38 | Physician Query ---
PLEASE COMPLETE DOCUMENT BEFORE SIGNING Dear Dr. Lorne Rios Date: December [place] Supervisor/CDS Name: Alisia James CDS [employer] Supervisor / CDS Exercise your independent professional judgment when responding to query. Question asked do not imply a particular answer is desired/expected. Clinical Documentation States: "Altered Mental Status " documented in the History/Physical Exam of Dr. Lorne Rios. Clinical Findings Show: An initial CAT scan of the brain at [facility] revealed no acute disease. Altered mental status may be secondary to sepsis secondary to urinary tract infection. WBC 5.1, Hemoglobin 5.2, 5.3,5.7 Hematocrit 18.5,19.1, 20.1 Please indicate the nature and chronicity of the condition below: [X] Metabolic Encephalopathy [] Toxic Encephalopathy [] Toxic - Metabolic Encephalopathy [] Progressive Encephalopathy [] Encephalopathy, Other [] Other: [] Not Applicable Severity [X] Acute [] Chronic [] Acute on Chronic [] Unable to determine Condition Present on Admission: [X] Yes [] No []Clinically Undeterminable Please also document in your Progress Notes and/or Discharge Summary and indicate if the condition was present on admission. Lorne Rios MD [facility]
--- NOTE | 2017-01-01 14:25 | Diagnostic Imaging Report ---
APPROVED REPORT CPT Code: 26484 Present Symptoms Comments: Swelling(left arm) LEFT UPPER EXTREMITY: Imaging reveals patency of the internal jugular, subclavian, axillary and brachial veins. The basilic vein is also within normal limits. The Doppler indicates normal spontaneous flow within these venous segments. The cephalic vein was not well visualized.
[2017-01-01 16:00] VITALS: BP 106/66
--- NOTE | 2017-01-01 19:23 | Internal Med Progress Note ---
Subjective Date of Service: Jan 01, 2017 Physician Name Delfin Martinez Attending Physician Lobito Jones MD Current Medications Medications (Trade) Dose Ordered Sig/Don Route PRN Reason Start Time Stop Time Status Last Admin Dose Admin Acetaminophen (Tylenol) 650 mg Q4H PRN ORAL Mild Pain/Temp > 100.5 12/26/16 19:00 01/25/17 18:59 Acetaminophen/ Hydrocodone Bitart ([place] 5/325) 1 tab Q3H PRN ORAL Mild Pain (Pain Scale 1-3) 12/26/16 19:30 01/02/17 19:29 12/31/16 23:47 Atorvastatin Calcium (Lipitor) 80 mg DAILY ORAL 12/27/16 09:00 01/26/17 08:59 01/01/17 09:05 Bisacodyl (Dulcolax) 5 mg DAILYPRN PRN ORAL Constipation 12/26/16 19:00 01/25/17 18:59 Carvedilol 3.125 mg 3.125 mg BID ORAL 12/27/16 09:00 01/26/17 08:59 01/01/17 17:06 Ceftriaxone Sodium/Dextrose (Rocephin/D5W) 55 ml @ 110 mls/hr Q24H IVPB 12/26/16 21:00 01/02/17 20:59 12/31/16 20:57 Epoetin Barak (Procrit (for non ESRD use)) 10,000 units Q48H SUBQ 12/31/16 21:00 01/30/17 20:59 12/31/16 23:02 Ferrous Sulfate (Feosol) 325 mg THREE TIMES A DAY ORAL 12/27/16 09:00 01/26/17 08:59 01/01/17 17:06 Folic Acid (Folate) 1 mg DAILY ORAL 12/28/16 09:00 01/27/17 08:59 01/01/17 09:04 Lactulose (Cephulac) 20 gm THREE TIMES A DAY PRN ORAL constipation 12/26/16 19:00 01/25/17 18:59 Losartan Potassium (Cozaar) 50 mg DAILY ORAL 12/27/16 09:00 01/26/17 08:59 01/01/17 09:05 Ondansetron HCl (Zofran) 4 mg Q6H PRN IVP Nausea & Vomiting 12/26/16 19:30 01/25/17 19:29 Pantoprazole (Protonix) 40 mg DAILY ORAL 12/27/16 09:00 01/26/17 08:59 01/01/17 09:04 Sertraline HCl (Zoloft) 100 mg DAILY ORAL 12/27/16 09:00 01/26/17 08:59 01/01/17 09:04 Temazepam (Restoril) 15 mg HSPRN PRN ORAL Insomnia 12/26/16 19:30 01/02/17 19:29 12/31/16 23:46 Allergies: Coded Allergies: LATEX (Unverified Allergy, Mild, Rash, 09/03/14) QUININE (Unverified Allergy, Unknown, Rash Hives, 05/23/15) Quinine Sulfate ROS Limited/Unobtainable: No Constitutional: Reports: no symptoms HEENT: Reports: mouth swelling Cardiovascular: Reports: no symptoms Respiratory: Reports: no symptoms Gastrointestinal/Abdominal: Reports: no symptoms Genitourinary: Reports: no symptoms Neurologic/Psychiatric: Reports: no symptoms Subjective 76 YO F admitted with altered mental status. Cover for [facility] Jones. Objective Last Vital Signs Date Time Temp Pulse Resp B/P Pulse Ox O2 Delivery O2 Flow Rate FiO2 01/01/17 17:06 61 106/66 01/01/17 16:00 97.9 20 95 Room Air Intake and Output 12/31/16 01/01/17 19:00 07:00 Intake Total 825 ml 235 ml Output Total 700 ml Balance 825 ml -465 ml Intake Oral 120 ml IV Total 825 ml 115 ml Output Urine Total 700 ml # Bowel Movements 1 Objective General: alert, cooperative, no distress, appears stated age Head: normocephalic, without obvious abnormality, atraumatic Eyes: conjunctivae/corneas clear. PERRL, EOM's intact Throat: lips, mucosa, and tongue normal. MMM Neck: supple, symmetrical, trachea midline, and no JVD Lungs: clear to auscultation bilaterally Heart: regular rate and rhythm, S1, S2 normal, no murmur, click, rub or gallop Abdomen: soft, non-tender, non-distended, bowel sounds normal; no masses or organomegaly Extremities: extremities normal, atraumatic, no cyanosis or edema Pulses: 2+ and symmetric Skin: skin color, texture, turgor normal; no rashes or lesions Neurologic: Left heiparesis; grossly normal, no focal deficits Assessment/Plan Problem List: (1) Sepsis (2) Altered mental status (3) UTI (urinary tract infection) Assessment & Plan: Continue Ceftriaxone (4) Severe anemia Assessment & Plan: Jehovah Witness. Continue IV venofer and epogen subcut per heme. (5) Iron deficiency anemia Assessment & Plan: Refused transfusion; cont IV venofer per heme. (6) Refusal of blood transfusions as patient is Islam (7) Left hemiparesis (8) CAD (coronary artery disease) (9) CHF (congestive heart failure) (10) Diabetes mellitus (11) Hypertension Assessment & Plan: Cont cozaar and coreg. (12) Hypercholesteremia (13) DVT (deep venous thrombosis) Assessment & Plan: Acute right leg. S/P IVC. See heme note. Status: not improved DELFIN MARTINEZ Jan 01, 2017 19:23
[2017-01-01] MEDS: Norco 5mg/325mg tab ORAL PRN ×2 (19:32→23:19)
[2017-01-01 20:00] VITALS: BP 143/82
[2017-01-01] MEDS: cefTRIAXone 1 GM in D5W 55 ML IVPB SCH (20:41)
--- NOTE | 2017-01-01 21:32 | General Progress Note ---
Assessment/Plan Assessment/Plan 1. Severe anemia 2/2 iron deficiency - retic count is high, but not sufficiently elevated given degree of anemia, patient begun on epo and iron in light of refusing blood transfusions (Nondenominational) and may take several days/weeks to improve, however pt refusing today. Patient has been admitted with similar symptoms before. Continues to refuse on blood transfusions. 2. Anemia r/o GI bleed - occult blood positive, rec GI consultation 3. Syncope- 2/2 anemia 4. History of deep venous thrombosis s/p ivc filter of BOTH RIGHT AND LEFT LEG 5. Left hemiplegia. 6. Left Upper extremity swelling 7. Coronary artery disease. 8. Congestive heart failure. 9. Diabetes type 2. 10. Hypertension. 11. Hypercholesterolemia. 12. CVA 13. Pacemaker. RECS: 1. Intravenous Venofer. The patient is a Nondenominational. The patient has refused blood transfusions in the past. Hgb >7 goal 2. Continue epogen sq 3. Hgb electrophoresis ordered (has not been completed before)- pending 4. Anemia w/u has been reviewed 5. Have again stressed the importance of blood transfusions, she refuses 6. Status post inferior vena cava. HOLD OFF ON ANTICOAGULATION GIVEN ANEMIA 7. Venous duplex of L upper extremity ordered and is pending 8. Appreciate consultation greatly, will continue to follow 9. GI consult for pos occult blood Sincerely, Dg Fairbanks MD Subjective Constitutional: Reports: no symptoms HEENT: Reports: no symptoms Cardiovascular: Reports: no symptoms Respiratory: Reports: no symptoms Gastrointestinal/Abdominal: Reports: no symptoms Genitourinary: Reports: no symptoms Neurologic/Psychiatric: Reports: no symptoms Endocrine: Reports: no symptoms Hematologic/Lymphatic: Reports: anemia Allergies: Coded Allergies: LATEX (Unverified Allergy, Mild, Rash, 09/03/14) QUININE (Unverified Allergy, Unknown, Rash Hives, 05/23/15) Quinine Sulfate Subjective anemic, refuses blood, NAD, poor oral intake Objective Last 24 Hour Vital Signs Date Time Temp Pulse Resp B/P Pulse Ox O2 Delivery O2 Flow Rate FiO2 01/01/17 20:38 97.9 01/01/17 20:00 97.9 79 20 143/82 98 Room Air 01/01/17 17:06 61 106/66 01/01/17 16:00 97.9 61 20 106/66 95 Room Air 01/01/17 12:00 98.0 60 18 116/70 96 Room Air 01/01/17 09:05 146/73 01/01/17 09:04 61 146/73 01/01/17 08:00 97.0 61 20 165/56 97 Room Air 01/01/17 04:00 97.6 61 19 146/73 98 Room Air 01/01/17 00:00 97.8 62 19 150/72 94 Room Air Intake and Output 12/31/16 01/01/17 19:00 07:00 Intake Total 825 ml 235 ml Output Total 700 ml Balance 825 ml -465 ml Intake Oral 120 ml IV Total 825 ml 115 ml Output Urine Total 700 ml # Bowel Movements 1 Height (Feet): 5 Height (Inches): 4.00 Weight (Pounds): 144 General Appearance: no apparent distress EENT: PERRL/EOMI Neck: non-tender Cardiovascular: normal rate Respiratory/Chest: chest wall non-tender Abdomen: normal bowel sounds Extremities: normal range of motion Neurologic: oriented x 3 Skin: warm/dry Dg Fairbanks Jan 01, 2017 21:32
--- NOTE | 2017-01-01 23:16 | Pulmonology Progress Note ---
Subjective Allergies: Coded Allergies: LATEX (Unverified Allergy, Mild, Rash, 09/03/14) QUININE (Unverified Allergy, Unknown, Rash Hives, 05/23/15) Quinine Sulfate Objective Last 24 Hour Vital Signs Date Time Temp Pulse Resp B/P Pulse Ox O2 Delivery O2 Flow Rate FiO2 01/01/17 20:38 97.9 01/01/17 20:00 97.9 79 20 143/82 98 Room Air 01/01/17 17:06 61 106/66 01/01/17 16:00 97.9 61 20 106/66 95 Room Air 01/01/17 12:00 98.0 60 18 116/70 96 Room Air 01/01/17 09:05 146/73 01/01/17 09:04 61 146/73 01/01/17 08:00 97.0 61 20 165/56 97 Room Air 01/01/17 04:00 97.6 61 19 146/73 98 Room Air 01/01/17 00:00 97.8 62 19 150/72 94 Room Air Intake and Output 12/31/16 01/01/17 19:00 07:00 Intake Total 825 ml 235 ml Output Total 700 ml Balance 825 ml -465 ml Intake Oral 120 ml IV Total 825 ml 115 ml Output Urine Total 700 ml # Bowel Movements 1 Current Medications Medications (Trade) Dose Ordered Sig/Don Route PRN Reason Start Time Stop Time Status Last Admin Dose Admin Acetaminophen (Tylenol) 650 mg Q4H PRN ORAL Mild Pain/Temp > 100.5 12/26/16 19:00 01/25/17 18:59 Acetaminophen/ Hydrocodone Bitart ([place] 5/325) 1 tab Q3H PRN ORAL Mild Pain (Pain Scale 1-3) 12/26/16 19:30 01/02/17 19:29 01/01/17 19:32 Atorvastatin Calcium (Lipitor) 80 mg DAILY ORAL 12/27/16 09:00 01/26/17 08:59 01/01/17 09:05 Bisacodyl (Dulcolax) 5 mg DAILYPRN PRN ORAL Constipation 12/26/16 19:00 01/25/17 18:59 Carvedilol 3.125 mg 3.125 mg BID ORAL 12/27/16 09:00 01/26/17 08:59 01/01/17 17:06 Ceftriaxone Sodium/Dextrose (Rocephin/D5W) 55 ml @ 110 mls/hr Q24H IVPB 12/26/16 21:00 01/02/17 20:59 01/01/17 20:41 Epoetin Barak (Procrit (for non ESRD use)) 10,000 units Q48H SUBQ 12/31/16 21:00 01/30/17 20:59 12/31/16 23:02 Ferrous Sulfate (Feosol) 325 mg THREE TIMES A DAY ORAL 12/27/16 09:00 01/26/17 08:59 01/01/17 17:06 Folic Acid (Folate) 1 mg DAILY ORAL 12/28/16 09:00 01/27/17 08:59 01/01/17 09:04 Lactulose (Cephulac) 20 gm THREE TIMES A DAY PRN ORAL constipation 12/26/16 19:00 01/25/17 18:59 Losartan Potassium (Cozaar) 50 mg DAILY ORAL 12/27/16 09:00 01/26/17 08:59 01/01/17 09:05 Ondansetron HCl (Zofran) 4 mg Q6H PRN IVP Nausea & Vomiting 12/26/16 19:30 01/25/17 19:29 Pantoprazole (Protonix) 40 mg DAILY ORAL 12/27/16 09:00 01/26/17 08:59 01/01/17 09:04 Sertraline HCl (Zoloft) 100 mg DAILY ORAL 12/27/16 09:00 01/26/17 08:59 01/01/17 09:04 Temazepam (Restoril) 15 mg HSPRN PRN ORAL Insomnia 12/26/16 19:30 01/02/17 19:29 12/31/16 23:46 MARLENY TURPIN Jan 01, 2017 23:16
[2017-01-02 00:13] VITALS: BP 141/67
[2017-01-02 04:12] VITALS: BP 137/68
[2017-01-02] MEDS: Sertraline 100mg tab ORAL SCH (08:01)
[2017-01-02] MEDS: Atorvastatin 80mg tab ORAL SCH (08:02)
[2017-01-02] MEDS: Losartan 50mg tab ORAL SCH (08:02)
[2017-01-02 08:56] VITALS: BP 130/66
[2017-01-02 12:59] VITALS: BP 110/60
--- NOTE | 2017-01-02 13:39 | General Progress Note ---
Assessment/Plan Assessment/Plan 1. Severe anemia 2/2 iron deficiency - retic count is high, but not sufficiently elevated given degree of anemia, patient begun on epo and iron in light of refusing blood transfusions (Zoroastrianism) and may take several days/weeks to improve, however pt refusing today. Patient has been admitted with similar symptoms before. Continues to refuse on blood transfusions. 2. Anemia r/o GI bleed - occult blood positive, rec GI consultation 3. Syncope- 2/2 anemia 4. History of deep venous thrombosis s/p ivc filter of BOTH RIGHT AND LEFT LEG 5. Left hemiplegia. 6. Left Upper extremity swelling 7. Coronary artery disease. 8. Congestive heart failure. 9. Diabetes type 2. 10. Hypertension. 11. Hypercholesterolemia. 12. CVA 13. Pacemaker. RECS: 1. Intravenous Venofer. The patient is a Zoroastrianism. The patient has refused blood transfusions in the past. Hgb >7 goal 2. Continue epogen sq 3. Hgb electrophoresis ordered (has not been completed before)- pending 4. Anemia w/u has been reviewed 5. Have again stressed the importance of blood transfusions, she refuses 6. Status post inferior vena cava. HOLD OFF ON ANTICOAGULATION GIVEN ANEMIA 7. Venous duplex of L upper extremity ordered and is pending 8. Appreciate consultation greatly, will continue to follow 9. GI consult for pos occult blood Sincerely, Dg Fairbanks MD Subjective Constitutional: Reports: no symptoms HEENT: Reports: no symptoms Cardiovascular: Reports: no symptoms Respiratory: Reports: no symptoms Gastrointestinal/Abdominal: Reports: no symptoms Genitourinary: Reports: no symptoms Neurologic/Psychiatric: Reports: no symptoms Endocrine: Reports: no symptoms Hematologic/Lymphatic: Reports: anemia Allergies: Coded Allergies: LATEX (Unverified Allergy, Mild, Rash, 09/03/14) QUININE (Unverified Allergy, Unknown, Rash Hives, 05/23/15) Quinine Sulfate Subjective pt follows simple commands, weak, NAD Objective Last 24 Hour Vital Signs Date Time Temp Pulse Resp B/P Pulse Ox O2 Delivery O2 Flow Rate FiO2 01/02/17 12:59 98.8 60 18 110/60 97 Room Air 01/02/17 08:56 97.7 60 16 130/66 99 Room Air 01/02/17 08:03 60 137/68 01/02/17 08:02 137/68 01/02/17 04:12 98.1 60 20 137/68 96 Room Air 01/02/17 00:18 98.2 01/02/17 00:13 98.2 65 20 141/67 94 Room Air 01/01/17 20:00 97.9 79 20 143/82 98 Room Air 01/01/17 17:06 61 106/66 01/01/17 16:00 97.9 61 20 106/66 95 Room Air Intake and Output 01/01/17 01/02/17 19:00 07:00 Intake Total 480 ml 55 ml Output Total 400 ml 150 ml Balance 80 ml -95 ml Intake Oral 480 ml IV Total 55 ml Output Urine Total 400 ml 150 ml Height (Feet): 5 Height (Inches): 4.00 Weight (Pounds): 144 General Appearance: WD/WN EENT: PERRL/EOMI Neck: non-tender Cardiovascular: normal rate Respiratory/Chest: lungs clear Abdomen: normal bowel sounds Extremities: normal range of motion Edema: no edema noted Leg (L), no edema noted Leg (R), no edema noted Pedal (L) , no edema noted Pedal (R), no edema noted 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
[2017-01-02 14:48] LABS: MEAN CORPUSCULAR HEMOGLOBIN 27.7 PG (27.0-31.0); MEAN CORPUSCULAR HGB CONC 27.5 G/DL (32.0-36.0); MEAN CORPUSCULAR VOLUME 101 FL (80-99); MEAN PLATELET VOLUME 5.6 FL (6.5-10.1); PLATELET COUNT 220 K/UL (150-450); RED BLOOD COUNT 2.26 M/UL (4.20-5.40); RED CELL DISTRIBUTION WIDTH 18.2 % (11.6-14.8); WHITE BLOOD COUNT 5.3 K/UL (4.8-10.8)
[2017-01-02 15:13] LABS: ANION GAP 10 (5-15); CALCIUM 8.3 mg/dL (8.6-10.2); CARBON DIOXIDE 25 mEQ/L (20-30); CHLORIDE 109 mEQ/L (98-107); CREATININE 0.5 mg/dL (0.5-0.9); HEMOLYSIS 6; POTASSIUM 4.2 mEQ/L (3.4-4.9); SODIUM 144 mEQ/L (135-145)
[2017-01-02 16:54] VITALS: BP 135/60
[2017-01-02 17:00] LABS: EOSINOPHILS % (MANUAL) 5 % (0-3); LYMPHOCYTES % (MANUAL) 38 % (20-45); NEUTROPHILS % (MANUAL) 56 % (45-75); TOTAL CELLS COUNTED 100
[2017-01-02 17:03] LABS: BAND NEUTROPHILS % (MANUAL) 0 % (0-8); BASOPHILS % (MANUAL) 0 % (0-2); PLATELET ESTIMATE ADEQUATE
[2017-01-02 17:04] LABS: ANISOCYTOSIS 2+; HYPOCHROMASIA 2+; MACROCYTES 2+; PLATELET MORPHOLOGY NORMAL; POLYCHROMASIA 1+
--- NOTE | 2017-01-02 19:45 | Internal Med Progress Note ---
Subjective Date of Service: Jan 02, 2017 Physician Name Delfin Martinez Attending Physician Lobito Jones MD Current Medications Medications (Trade) Dose Ordered Sig/Don Route PRN Reason Start Time Stop Time Status Last Admin Dose Admin Acetaminophen (Tylenol) 650 mg Q4H PRN ORAL Mild Pain/Temp > 100.5 12/26/16 19:00 01/25/17 18:59 Atorvastatin Calcium (Lipitor) 80 mg DAILY ORAL 12/27/16 09:00 01/26/17 08:59 01/02/17 08:02 Bisacodyl (Dulcolax) 5 mg DAILYPRN PRN ORAL Constipation 12/26/16 19:00 01/25/17 18:59 Carvedilol 3.125 mg 3.125 mg BID ORAL 12/27/16 09:00 01/26/17 08:59 01/02/17 17:19 Ceftriaxone Sodium/Dextrose (Rocephin/D5W) 55 ml @ 110 mls/hr Q24H IVPB 12/26/16 21:00 01/02/17 20:59 01/01/17 20:41 Epoetin Barak (Procrit (for non ESRD use)) 10,000 units Q48H SUBQ 12/31/16 21:00 01/30/17 20:59 12/31/16 23:02 Ferrous Sulfate (Feosol) 325 mg THREE TIMES A DAY ORAL 12/27/16 09:00 01/26/17 08:59 01/02/17 17:19 Folic Acid (Folate) 1 mg DAILY ORAL 12/28/16 09:00 01/27/17 08:59 01/02/17 08:02 Lactulose (Cephulac) 20 gm THREE TIMES A DAY PRN ORAL constipation 12/26/16 19:00 01/25/17 18:59 Losartan Potassium (Cozaar) 50 mg DAILY ORAL 12/27/16 09:00 01/26/17 08:59 01/02/17 08:02 Ondansetron HCl (Zofran) 4 mg Q6H PRN IVP Nausea & Vomiting 12/26/16 19:30 01/25/17 19:29 Pantoprazole (Protonix) 40 mg DAILY ORAL 12/27/16 09:00 01/26/17 08:59 01/02/17 08:02 Sertraline HCl (Zoloft) 100 mg DAILY ORAL 12/27/16 09:00 01/26/17 08:59 01/02/17 08:01 Allergies: Coded Allergies: LATEX (Unverified Allergy, Mild, Rash, 09/03/14) QUININE (Unverified Allergy, Unknown, Rash Hives, 05/23/15) Quinine Sulfate ROS Limited/Unobtainable: No Constitutional: Reports: no symptoms HEENT: Reports: no symptoms Cardiovascular: Reports: no symptoms Respiratory: Reports: no symptoms Gastrointestinal/Abdominal: Reports: no symptoms Genitourinary: Reports: no symptoms Neurologic/Psychiatric: Reports: no symptoms Subjective 76 YO F admitted with altered mental status. Cover for [facility] Med[facility]Dr Jones. Objective Last Vital Signs Date Time Temp Pulse Resp B/P Pulse Ox O2 Delivery O2 Flow Rate FiO2 01/02/17 17:19 63 135/60 01/02/17 16:54 98.1 19 98 Room Air Laboratory Tests Test 01/02/17 14:25 White Blood Count 5.3 K/UL (4.8-10.8) Red Blood Count 2.26 M/UL (4.20-5.40) L Hemoglobin 6.3 G/DL (12.0-16.0) *L Hematocrit 22.8 % (37.0-47.0) L Mean Corpuscular Volume 101 FL (80-99) H Mean Corpuscular Hemoglobin 27.7 PG (27.0-31.0) Mean Corpuscular Hemoglobin Concent 27.5 G/DL (32.0-36.0) L Red Cell Distribution Width 18.2 % (11.6-14.8) H Platelet Count 220 K/UL (150-450) Mean Platelet Volume 5.6 FL (6.5-10.1) L Neutrophils (%) (Auto) % (45.0-75.0) Lymphocytes (%) (Auto) % (20.0-45.0) Monocytes (%) (Auto) % (1.0-10.0) Eosinophils (%) (Auto) % (0.0-3.0) Basophils (%) (Auto) % (0.0-2.0) Differential Total Cells Counted 100 Neutrophils % (Manual) 56 % (45-75) Lymphocytes % (Manual) 38 % (20-45) Monocytes % (Manual) 1 % (1-10) Eosinophils % (Manual) 5 % (0-3) H Basophils % (Manual) 0 % (0-2) Band Neutrophils 0 % (0-8) Platelet Estimate Adequate Platelet Morphology Normal Polychromasia 1+ Hypochromasia 2+ Anisocytosis 2+ Macrocytosis 2+ Sodium Level 144 mEQ/L (135-145) Potassium Level 4.2 mEQ/L (3.4-4.9) Chloride Level 109 mEQ/L (98-107) H Carbon Dioxide Level 25 mEQ/L (20-30) Anion Gap 10 (5-15) Blood Urea Nitrogen 10 mg/dL (7-23) Creatinine 0.5 mg/dL (0.5-0.9) Estimat Glomerular Filtration Rate mL/min (>60) Glucose Level 104 mg/dL (74-106) Calcium Level 8.3 mg/dL (8.6-10.2) L Intake and Output 01/01/17 01/02/17 19:00 07:00 Intake Total 480 ml 55 ml Output Total 400 ml 150 ml Balance 80 ml -95 ml Intake Oral 480 ml IV Total 55 ml Output Urine Total 400 ml 150 ml Objective General: alert, cooperative, no distress, appears stated age Head: normocephalic, without obvious abnormality, atraumatic Eyes: conjunctivae/corneas clear. PERRL, EOM's intact Throat: lips, mucosa, and tongue normal. MMM Neck: supple, symmetrical, trachea midline, and no JVD Lungs: clear to auscultation bilaterally Heart: regular rate and rhythm, S1, S2 normal, no murmur, click, rub or gallop Abdomen: soft, non-tender, non-distended, bowel sounds normal; no masses or organomegaly Extremities: extremities normal, atraumatic, no cyanosis or edema Pulses: 2+ and symmetric Skin: skin color, texture, turgor normal; no rashes or lesions Neurologic: Left heiparesis; grossly normal, no focal deficits Assessment/Plan Problem List: (1) Sepsis (2) Altered mental status (3) UTI (urinary tract infection) Assessment & Plan: Continue Ceftriaxone (4) Severe anemia Assessment & Plan: Jehovah Witness. Continue IV venofer and epogen subcut per heme. (5) Iron deficiency anemia Assessment & Plan: Refused transfusion; cont IV venofer per heme. (6) Refusal of blood transfusions as patient is Rastafarian (7) Left hemiparesis (8) CAD (coronary artery disease) (9) CHF (congestive heart failure) (10) Diabetes mellitus (11) Hypertension Assessment & Plan: Cont cozaar and coreg. (12) Hypercholesteremia (13) DVT (deep venous thrombosis) Assessment & Plan: Acute right leg. S/P IVC. See heme note. Status: progressing DELFIN MARTINEZ Jan 02, 2017 19:45
[2017-01-02 20:00] VITALS: BP 130/75
[2017-01-02] MEDS: Epogen (for non ESRD use) SUBQ SCH (21:55)
--- NOTE | 2017-01-02 23:35 | Pulmonology Progress Note ---
Subjective Allergies: Coded Allergies: LATEX (Unverified Allergy, Mild, Rash, 09/03/14) QUININE (Unverified Allergy, Unknown, Rash Hives, 05/23/15) Quinine Sulfate Objective Last 24 Hour Vital Signs Date Time Temp Pulse Resp B/P Pulse Ox O2 Delivery O2 Flow Rate FiO2 01/02/17 20:00 97.9 60 18 130/75 99 Room Air 01/02/17 17:19 63 135/60 01/02/17 16:54 98.1 63 19 135/60 98 Room Air 01/02/17 12:59 98.8 60 18 110/60 97 Room Air 01/02/17 08:56 97.7 60 16 130/66 99 Room Air 01/02/17 08:03 60 137/68 01/02/17 08:02 137/68 01/02/17 04:12 98.1 60 20 137/68 96 Room Air 01/02/17 00:18 98.2 01/02/17 00:13 98.2 65 20 141/67 94 Room Air Intake and Output 01/01/17 01/02/17 19:00 07:00 Intake Total 480 ml 55 ml Output Total 400 ml 150 ml Balance 80 ml -95 ml Intake Oral 480 ml IV Total 55 ml Output Urine Total 400 ml 150 ml Laboratory Tests 01/02/17 14:25: White Blood Count 5.3, Red Blood Count 2.26L, Hemoglobin 6.3*L, Hematocrit 22.8L , Mean Corpuscular Volume 101H, Mean Corpuscular Hemoglobin 27.7, Mean Corpuscular Hemoglobin Concent 27.5L, Red Cell Distribution Width 18.2H, Platelet Count 220, Mean Platelet Volume 5.6L, Neutrophils (%) (Auto) , Lymphocytes (%) (Auto) , Monocytes (%) (Auto) , Eosinophils (%) (Auto) , Basophils (%) (Auto) , Differential Total Cells Counted 100, Neutrophils % ( Manual) 56, Lymphocytes % (Manual) 38, Monocytes % (Manual) 1, Eosinophils % ( Manual) 5H, Basophils % (Manual) 0, Band Neutrophils 0, Platelet Estimate Adequate, Platelet Morphology Normal, Polychromasia 1+, Hypochromasia 2+, Anisocytosis 2+, Macrocytosis 2+, Sodium Level 144, Potassium Level 4.2, Chloride Level 109H, Carbon Dioxide Level 25, Anion Gap 10, Blood Urea Nitrogen 10, Creatinine 0.5, Estimat Glomerular Filtration Rate , Glucose Level 104, Calcium Level 8.3L Current Medications Medications (Trade) Dose Ordered Sig/Don Route PRN Reason Start Time Stop Time Status Last Admin Dose Admin Acetaminophen (Tylenol) 650 mg Q4H PRN ORAL Mild Pain/Temp > 100.5 12/26/16 19:00 01/25/17 18:59 Atorvastatin Calcium (Lipitor) 80 mg DAILY ORAL 12/27/16 09:00 01/26/17 08:59 01/02/17 08:02 Bisacodyl (Dulcolax) 5 mg DAILYPRN PRN ORAL Constipation 12/26/16 19:00 01/25/17 18:59 Carvedilol (Coreg) 3.125 mg BID ORAL 12/27/16 09:00 01/26/17 08:59 01/02/17 17:19 Epoetin Barak (Procrit (for non ESRD use)) 10,000 units Q48H SUBQ 12/31/16 21:00 01/30/17 20:59 01/02/17 21:55 Ferrous Sulfate (Feosol) 325 mg THREE TIMES A DAY ORAL 12/27/16 09:00 01/26/17 08:59 01/02/17 17:19 Folic Acid (Folate) 1 mg DAILY ORAL 12/28/16 09:00 01/27/17 08:59 01/02/17 08:02 Lactulose (Cephulac) 20 gm THREE TIMES A DAY PRN ORAL constipation 12/26/16 19:00 01/25/17 18:59 Losartan Potassium (Cozaar) 50 mg DAILY ORAL 12/27/16 09:00 01/26/17 08:59 01/02/17 08:02 Ondansetron HCl (Zofran) 4 mg Q6H PRN IVP Nausea & Vomiting 12/26/16 19:30 01/25/17 19:29 Pantoprazole (Protonix) 40 mg DAILY ORAL 12/27/16 09:00 01/26/17 08:59 01/02/17 08:02 Sertraline HCl (Zoloft) 100 mg DAILY ORAL 12/27/16 09:00 01/26/17 08:59 01/02/17 08:01 Temazepam (Restoril) 15 mg HSPRN PRN ORAL Insomnia 01/02/17 23:30 01/09/17 23:29 MARLENY TURPIN Jan 02, 2017 23:35
[2017-01-03] VITALS: BP 146/66
[2017-01-03 04:00] VITALS: BP 132/79
[2017-01-03] MEDS: Sertraline 100mg tab ORAL SCH (08:31)
[2017-01-03] MEDS: Losartan 50mg tab ORAL SCH (08:31)
[2017-01-03] MEDS: Atorvastatin 80mg tab ORAL SCH (08:32)
[2017-01-03 08:49] VITALS: BP 132/66
[2017-01-03 12:57] VITALS: BP 128/80
[2017-01-03 13:59] LABS: OTHERS PATHOLOGIST COMMENT
[2017-01-03] MEDS ORDERED: D5 1/2NS 1000ml IV ONE (16:26)
[2017-01-03 16:50] VITALS: BP 122/62
[2017-01-03] MEDS ORDERED: ATORVASTATIN CA80 MG ORAL (17:57)
[2017-01-03] MEDS ORDERED: BISACODYL5 MG ORAL (17:58)
[2017-01-03] MEDS ORDERED: PROCRIT10000 UNIT SUBQ (17:59)
[2017-01-03] MEDS ORDERED: FEOSOL325 MG PO (18:00)
[2017-01-03] MEDS ORDERED: FOLIC ACID1 MG ORAL (18:00)
[2017-01-03] MEDS ORDERED: LACTULOSE20 GM/301 ORAL (18:02)
[2017-01-03] MEDS ORDERED: COZAAR50 MG ORAL (18:03)
[2017-01-03] MEDS ORDERED: ZOFRAN4 M1 ORAL (18:04)
[2017-01-03] MEDS ORDERED: PROTONIX40 MG ORAL (18:04)
--- NOTE | 2017-01-03 19:31 | Internal Med Progress Note ---
Subjective Date of Service: Jan 03, 2017 Physician Name Delfin Martinez Attending Physician Lobito Jones MD Current Medications Medications (Trade) Dose Ordered Sig/Don Route PRN Reason Start Time Stop Time Status Last Admin Dose Admin Acetaminophen (Tylenol) 650 mg Q4H PRN ORAL Mild Pain/Temp > 100.5 12/26/16 19:00 01/25/17 18:59 01/03/17 18:08 Atorvastatin Calcium (Lipitor) 80 mg DAILY ORAL 12/27/16 09:00 01/26/17 08:59 01/03/17 08:32 Bisacodyl (Dulcolax) 5 mg DAILYPRN PRN ORAL Constipation 12/26/16 19:00 01/25/17 18:59 Carvedilol (Coreg) 3.125 mg BID ORAL 12/27/16 09:00 01/26/17 08:59 01/02/17 17:19 Epoetin Barak (Procrit (for non ESRD use)) 10,000 units Q48H SUBQ 12/31/16 21:00 01/30/17 20:59 01/02/17 21:55 Ferrous Sulfate (Feosol) 325 mg THREE TIMES A DAY ORAL 12/27/16 09:00 01/26/17 08:59 01/03/17 18:12 Folic Acid (Folate) 1 mg DAILY ORAL 12/28/16 09:00 01/27/17 08:59 01/03/17 08:32 Lactulose (Cephulac) 20 gm THREE TIMES A DAY PRN ORAL constipation 12/26/16 19:00 01/25/17 18:59 Losartan Potassium (Cozaar) 50 mg DAILY ORAL 12/27/16 09:00 01/26/17 08:59 01/03/17 08:31 Ondansetron HCl (Zofran) 4 mg Q6H PRN IVP Nausea & Vomiting 12/26/16 19:30 01/25/17 19:29 Pantoprazole (Protonix) 40 mg DAILY ORAL 12/27/16 09:00 01/26/17 08:59 01/03/17 08:31 Sertraline HCl (Zoloft) 100 mg DAILY ORAL 12/27/16 09:00 01/26/17 08:59 01/03/17 08:31 Temazepam (Restoril) 15 mg HSPRN PRN ORAL Insomnia 01/02/17 23:30 01/09/17 23:29 01/02/17 23:38 Allergies: Coded Allergies: LATEX (Unverified Allergy, Mild, Rash, 09/03/14) QUININE (Unverified Allergy, Unknown, Rash Hives, 05/23/15) Quinine Sulfate ROS Limited/Unobtainable: No Constitutional: Reports: no symptoms HEENT: Reports: no symptoms Cardiovascular: Reports: no symptoms Respiratory: Reports: no symptoms Gastrointestinal/Abdominal: Reports: no symptoms Genitourinary: Reports: no symptoms Neurologic/Psychiatric: Reports: no symptoms Subjective 76 YO F admitted with altered mental status. Cover for Int Med-Dr Jones. Await transfer to [facility] nursing [facility] Objective Last Vital Signs Date Time Temp Pulse Resp B/P Pulse Ox O2 Delivery O2 Flow Rate FiO2 01/03/17 16:50 96.9 60 19 122/62 97 Room Air Intake and Output 01/02/17 01/03/17 19:00 07:00 Intake Total 120 ml 420 ml Output Total 150 ml Balance -30 ml 420 ml Intake Oral 120 ml 420 ml Output Urine Total 150 ml Objective General: alert, cooperative, no distress, appears stated age Head: normocephalic, without obvious abnormality, atraumatic Eyes: conjunctivae/corneas clear. PERRL, EOM's intact Throat: lips, mucosa, and tongue normal. MMM Neck: supple, symmetrical, trachea midline, and no JVD Lungs: clear to auscultation bilaterally Heart: regular rate and rhythm, S1, S2 normal, no murmur, click, rub or gallop Abdomen: soft, non-tender, non-distended, bowel sounds normal; no masses or organomegaly Extremities: extremities normal, atraumatic, no cyanosis or edema Pulses: 2+ and symmetric Skin: skin color, texture, turgor normal; no rashes or lesions Neurologic: Left heiparesis; grossly normal, no focal deficits Assessment/Plan Problem List: (1) Sepsis (2) Altered mental status (3) UTI (urinary tract infection) Assessment & Plan: Continue Ceftriaxone (4) Severe anemia Assessment & Plan: Jehovah Witness. Continue IV venofer and epogen subcut per heme. (5) Iron deficiency anemia Assessment & Plan: Refused transfusion; cont IV venofer per heme. (6) Refusal of blood transfusions as patient is Religious (7) Left hemiparesis (8) CAD (coronary artery disease) (9) CHF (congestive heart failure) (10) Diabetes mellitus (11) Hypertension Assessment & Plan: Cont cozaar and coreg. (12) Hypercholesteremia (13) DVT (deep venous thrombosis) Assessment & Plan: Acute right leg. S/P IVC. See heme note. Assessment/Plan Discharge to [facility] nursing facility today DELFIN MARTINEZ Jan 03, 2017 19:31
--- NOTE | 2017-01-03 22:15 | Pulmonology Progress Note ---
Subjective Allergies: Coded Allergies: LATEX (Unverified Allergy, Mild, Rash, 09/03/14) QUININE (Unverified Allergy, Unknown, Rash Hives, 05/23/15) Quinine Sulfate Objective Last 24 Hour Vital Signs Date Time Temp Pulse Resp B/P Pulse Ox O2 Delivery O2 Flow Rate FiO2 01/03/17 16:50 96.9 60 19 122/62 97 Room Air 01/03/17 12:57 97.3 60 20 128/80 97 Room Air 01/03/17 08:49 97.3 60 18 132/66 98 Room Air 01/03/17 08:31 132/66 01/03/17 04:00 97.7 78 18 132/79 92 Room Air 01/03/17 03:12 97.2 01/03/17 00:00 97.2 60 20 146/66 98 Room Air Intake and Output 01/02/17 01/03/17 19:00 07:00 Intake Total 120 ml 420 ml Output Total 150 ml Balance -30 ml 420 ml Intake Oral 120 ml 420 ml Output Urine Total 150 ml MARLENY TURPIN Jan 03, 2017 22:15
--- NOTE | 2017-01-03 23:05 | General Progress Note ---
Assessment/Plan Assessment/Plan 1. Severe anemia 2/2 iron deficiency - retic count is high, but not sufficiently elevated given degree of anemia, patient begun on epo and iron in light of refusing blood transfusions (Roman Catholic) and may take several days/weeks to improve, however pt refusing today. Patient has been admitted with similar symptoms before. Continues to refuse on blood transfusions. 2. Anemia r/o GI bleed - occult blood positive, rec GI consultation 3. Syncope- 2/2 anemia 4. History of deep venous thrombosis s/p ivc filter of BOTH RIGHT AND LEFT LEG 5. Left hemiplegia. 6. Left Upper extremity swelling 7. Coronary artery disease. 8. Congestive heart failure. 9. Diabetes type 2. 10. Hypertension. 11. Hypercholesterolemia. 12. CVA 13. Pacemaker. RECS: 1. Intravenous Venofer. The patient is a Roman Catholic. The patient has refused blood transfusions in the past. Hgb >7 goal 2. Continue epogen sq 3. Hgb electrophoresis ordered (has not been completed before)- pending 4. Anemia w/u has been reviewed 5. Have again stressed the importance of blood transfusions, she refuses 6. Status post inferior vena cava. HOLD OFF ON ANTICOAGULATION GIVEN ANEMIA 7. Venous duplex of L upper extremity ordered and is pending 8. Appreciate consultation greatly, will continue to follow 9. GI consult for pos occult blood Sincerely, Dg Fairbanks MD Subjective Constitutional: Reports: no symptoms HEENT: Reports: no symptoms Cardiovascular: Reports: no symptoms Respiratory: Reports: no symptoms Gastrointestinal/Abdominal: Reports: no symptoms Genitourinary: Reports: no symptoms Neurologic/Psychiatric: Reports: no symptoms Endocrine: Reports: no symptoms Hematologic/Lymphatic: Reports: anemia Allergies: Coded Allergies: LATEX (Unverified Allergy, Mild, Rash, 09/03/14) QUININE (Unverified Allergy, Unknown, Rash Hives, 05/23/15) Quinine Sulfate Subjective no hemptysis, afebrile, pt NAD Objective Last 24 Hour Vital Signs Date Time Temp Pulse Resp B/P Pulse Ox O2 Delivery O2 Flow Rate FiO2 01/03/17 16:50 96.9 60 19 122/62 97 Room Air 01/03/17 12:57 97.3 60 20 128/80 97 Room Air 01/03/17 08:49 97.3 60 18 132/66 98 Room Air 01/03/17 08:31 132/66 01/03/17 04:00 97.7 78 18 132/79 92 Room Air 01/03/17 03:12 97.2 01/03/17 00:00 97.2 60 20 146/66 98 Room Air Intake and Output 01/02/17 01/03/17 19:00 07:00 Intake Total 120 ml 420 ml Output Total 150 ml Balance -30 ml 420 ml Intake Oral 120 ml 420 ml Output Urine Total 150 ml Height (Feet): 5 Height (Inches): 4.00 Weight (Pounds): 144 General Appearance: WD/WN EENT: PERRL/EOMI Neck: non-tender Cardiovascular: normal peripheral pulses Respiratory/Chest: chest wall non-tender Abdomen: normal bowel sounds Edema: no edema noted Leg (L), no edema noted Leg (R), no edema noted Pedal (L) , no edema noted Pedal (R), no edema noted Generalized 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
--- NOTE | 2017-01-04 16:14 | Discharge Summary ---
Discharge Summary Hospital Course Date of Admission Dec 26, 2016 at 19:46 Date of Discharge Jan 03, 2017 at 18:30 Admitting Diagnosis HPI Shirin Sommer is a 76 year old female who was admitted on Dec 26, 2016 at 19:46 for Urinary Tract Infection With Out Sepsis Hospital Course [id number] Discharge Discharge Disposition Patient was discharged to SNF/Subacute Facility(03) Discharge Diagnoses: Melani Hinds NP Jan 04, 2017 16:14
--- NOTE | 2017-01-05 00:18 | Discharge Summary 2 SIG ---
DATE OF ADMISSION: 12/26/2016 DATE OF DISCHARGE: 01/03/2017 CONSULTANTS: 1. Dg Fairbanks M.D. 2. Juana Watson M.D. BRIEF HOSPITAL COURSE: The patient is a 76-year-old female, who initially presented to [facility], secondary to altered mental status. At ED, she was found to have urinary tract infection and had severe anemia. She had admissions in the past, but she has refused blood transfusion. She is a Jewish and had a history of DVT on bilateral legs with IVC filter. On evaluation, hemoglobin was down to 5.2. She again refused blood transfusion. She was given IV iron and Epogen. Venous duplex of lower extremity was done and was positive for acute DVT on the right leg. Unable to get anticoagulants. She had IVC filter secondary to prior DVTs on bilateral legs. Anemia workup was done. She also had swelling on the left arm. Venous duplex showed patency of the internal jugular, subclavian, axillary, and brachial vein. The basilic vein was also within normal limits and had normal spontaneous flow on Doppler. Explained that it would take several days or weeks for anemia to improve with Epogen and iron. The patient was then transferred to SNF. FINAL DIAGNOSES: 1. Acute metabolic encephalopathy. 2. Urinary tract infection. 3. Severe anemia. 4. Iron deficiency anemia. 5. Coronary artery disease. 6. 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 7. Hypertension. 8. Diabetes mellitus. 9. Hypercholesterolemia. 10. Acute right leg deep venous thrombosis status post prior IVC filter. 11. Pacemaker. Lobito Jones M.D. I have been assigned to dictate discharge summary on this account and I was not involved in the patient's management. Melani Hinds N.P. DR: ANGELO JOB#: [id number] CC: ELIGIO
== END 2017-01-03 18:30 | DRG 689 ==
LOC: 4W 19:46
DX: N39.0 Urinary tract infection, site not specified (principal); G93.41 Metabolic encephalopathy; I50.9 Heart failure, unspecified; I82.491 Acute embolism and thrombosis of other specified deep vein of right lower extremity; D50.9 Iron deficiency anemia, unspecified; E11.9 Type 2 diabetes mellitus without complications; I25.10 Atherosclerotic heart disease of native coronary artery without angina pectoris; E78.00 Pure hypercholesterolemia, unspecified; Z95.810 Presence of automatic (implantable) cardiac defibrillator; Z95.5 Presence of coronary angioplasty implant and graft; Z98.1 Arthrodesis status; Z86.718 Personal history of other venous thrombosis and embolism; Z88.8 Allergy status to other drugs, medicaments and biological substances; Z96.653 Presence of artificial knee joint, bilateral; Z53.1 Procedure and treatment not carried out because of patient's decision for reasons of belief and group pressure
CPT/HCPCS: 36415; 71010; 74000; 80048; 80053; 80061; 82270; 82728; 83540; 83550; 83735; 83880; 84100; 84238; 84484; 85007; 85025; 85610; 85730; 87086; 93970; 93971

== ENCOUNTER 2017-01-23 08:40 | Inpatient (IN) | payer MEDICARE, MEDICAID ==
[~2017-01-23] VITALS: Ht 154.9 cm; Wt 62.6 kg
[~2017-01-23 08:40] MED LIST changes: +BISACODYL5 MG ORAL; +FEOSOL325 MG PO; +FOLIC ACID1 MG ORAL; +LACTULOSE20 GM/301 ORAL; +PROCRIT10000 UNIT SUBQ; +PROTONIX40 MG ORAL; +ZOFRAN4 M1 ORAL
[2017-01-23] MEDS ORDERED: Morphine Sulfate 4mg/ml Inj IVP ONE (09:15)
[2017-01-23] MEDS ORDERED: Morphine Sulfate 4mg/ml Inj IM ONE (09:45)
--- NOTE | 2017-01-23 09:50 | Emergency Room Report ---
History of Present Illness General Chief Complaint: Multiple Trauma/Fall Source: Patient, Family Member, EMS Present Illness HPI Patient allegedly fell out of wheelchair at a longterm facility. She was unable to ambulate before the fall. She's had knee replacement before. She has pain in her knee. There is also swelling there. The longterm facility center treated her with a pillow wrapped around the knee. Apparently an x-ray was done which suggests a fracture. Pain reported 5/10, burning ache, not radiate. She has chronic weakness of LEs. Denies tingling or numbness. The patient denies symptoms such as fever, cough, sore throat, nausea, vomiting diarrhea. The patient does complain about constipation. The patient is Mosque. She has anemia. She was told no procedure could be done because of the low H/H. She refused transfusion. No depression. No chest pain, dyspnea. Allergies: Coded Allergies: LATEX (Unverified Allergy, Mild, Rash, 09/03/14) QUININE (Unverified Allergy, Unknown, Rash Hives, 05/23/15) Quinine Sulfate Patient History Past Medical History: see triage record, DM, CVA/TIA Past Surgical History: PTCA, marcello, pacemaker, other - neck and spine surgery, bilat knee replacements, IVC filter Social History Narrative SNF - [facility] Reviewed Nursing Documentation: PMH: Agreed, PSxH: Agreed Nursing Documentation-PMH Hx Cardiac Problems: Yes Hx Hypertension: Yes Hx Pacemaker: Yes - left chest Hx Asthma: Yes Hx Diabetes: Yes Hx Cancer: No Hx Gastrointestinal Problems: Yes Hx Neurological Problems: Yes Hx Cerebrovascular Accident: Yes Hx Dementia: Yes Hx Vertigo: Yes Hx Dizziness: Yes Hx Syncope: Yes Hx Headaches: Yes Hx Weakness: Yes Hx Fatigue: Yes Review of Systems All Other Systems: negative except mentioned in HPI Physical Exam Vital Signs Date Time Temp Pulse Resp B/P Pulse Ox O2 Delivery O2 Flow Rate FiO2 01/23/17 08:40 98.8 97 16 116/73 94 Room Air Sp02 EP Interpretation: reviewed, abnormal - slightly low as interpreted by me General Appearance: well appearing, no apparent distress, GCS 15 Head: normocephalic Eyes: bilateral eye PERRL, bilateral eye conjunctivae pale ENT: moist mucus membranes, other - poor dentition Neck: supple Respiratory: lungs clear, normal breath sounds Cardiovascular #1: regular rate, rhythm Cardiovascular #2: 2+ radial (R) Gastrointestinal: normal inspection, normal bowel sounds, non tender, no mass, non-distended Musculoskeletal: swelling, other - tenderness more inferior to knee Neurologic: oriented x3, speech normal, motor weakness - bilateral LE, also L arm Psychiatric: mood/affect normal Skin: pallor Medical Decision Making Diagnostic Impression: Primary Impression: Femoral distal fracture Qualified Codes: S72.491A - Other fracture of lower end of right femur, initial encounter for closed fracture Additional Impressions: Fall Qualified Codes: W19.XXXA - Unspecified fall, initial encounter Anemia Qualified Codes: D64.9 - Anemia, unspecified Refusal of blood transfusions as patient is Mosque ER Course Patient presents post fall with R knee pain and swelling. Ddx: fx, contusion, hematoma, DVT. Evaluation with labs, EKG, R leg x-rays. Analgesia ordered. Difficult exam as limited movement from prior strokes. If DVT, patient has IVC filter and doubt this would alter treatment. Harris placed as not able to use commode. Unable to establish IV. Pain meds given IM. Labs obtained. Anemia which is significant. Patient refuses transfusion. Xray with distal femur fracture. Improved with immobilizer and analgesia. Prior motor deficit, alleges sens intact, vasc intact as examined by me (was placed by tech). Admit med Dr. Jones. Laboratory Tests Test 01/23/17 10:00 White Blood Count 11.8 K/UL (4.8-10.8) H Red Blood Count 2.59 M/UL (4.20-5.40) L Hemoglobin 6.9 G/DL (12.0-16.0) *L Hematocrit 23.7 % (37.0-47.0) L Mean Corpuscular Volume 91 FL (80-99) Mean Corpuscular Hemoglobin 26.6 PG (27.0-31.0) L Mean Corpuscular Hemoglobin Concent 29.1 G/DL (32.0-36.0) L Red Cell Distribution Width 17.4 % (11.6-14.8) H Platelet Count 208 K/UL (150-450) Mean Platelet Volume 6.8 FL (6.5-10.1) Neutrophils (%) (Auto) % (45.0-75.0) Lymphocytes (%) (Auto) % (20.0-45.0) Monocytes (%) (Auto) % (1.0-10.0) Eosinophils (%) (Auto) % (0.0-3.0) Basophils (%) (Auto) % (0.0-2.0) Differential Total Cells Counted 100 Neutrophils % (Manual) 78 % (45-75) H Lymphocytes % (Manual) 11 % (20-45) L Monocytes % (Manual) 10 % (1-10) Eosinophils % (Manual) 1 % (0-3) Basophils % (Manual) 0 % (0-2) Band Neutrophils 0 % (0-8) Platelet Estimate Adequate Platelet Morphology Normal Hypochromasia 3+ Anisocytosis 1+ Prothrombin Time 12.7 SEC (9.30-11.50) H Prothrombin Time INR 1.2 (0.9-1.1) H PTT 29 SEC (23-33) Sodium Level 143 mEQ/L (135-145) Potassium Level 4.6 mEQ/L (3.4-4.9) Chloride Level 106 mEQ/L (98-107) Carbon Dioxide Level 25 mEQ/L (20-30) Anion Gap 12 (5-15) Blood Urea Nitrogen 24 mg/dL (7-23) H Creatinine 0.6 mg/dL (0.5-0.9) Estimate Glomerular Filtration Rate mL/min (>60) Glucose Level 103 mg/dL (74-106) Calcium Level 8.6 mg/dL (8.6-10.2) Total Bilirubin 0.2 mg/dL (0.0-1.2) Aspartate Amino Transferase (AST) 17 U/L (5-40) Alanine Aminotransferase (ALT) 10 U/L (3-33) Alkaline Phosphatase 71 U/L (35-104) Total Protein 5.5 g/dL (6.6-8.7) L Albumin 2.5 g/dL (3.5-5.2) L Globulin 3.0 g/dL Albumin/Globulin Ratio 0.8 (1.0-2.7) L EKG Diagnostic Results Rate: normal Rhythm: NSR ST Segments: no acute changes Rhythm Strip Diag. Results EP Interpretation: yes Rhythm: NSR, no PVC's, no ectopy, other - from EKG Other X-Ray Diagnostic Results Other X-Ray Diagnostic Results #1: X-Ray Ordered: L femur EP Interpretation: Yes Findings: no dislocation, no soft tissue swelling, other - distal femur fx Number of Views: 4 Other X-Ray Diagnostic Results #2: X-Ray Ordered: L tib fib EP Interpretation: Yes Findings: no fractures, no dislocation, no soft tissue swelling Number of Views: 4 Last Vital Signs Date Time Temp Pulse Resp B/P Pulse Ox O2 Delivery O2 Flow Rate FiO2 01/23/17 15:36 97.5 98 20 117/82 96 Nasal Cannula Status: improved Disposition: ADMITTED INPATIENT Condition: Serious Referrals: Lobito Jones MD (PCP) Humphrey Woodward M.D. January 23, 2017 09:50
[2017-01-23 10:11] LABS: MEAN CORPUSCULAR HEMOGLOBIN 26.6 PG (27.0-31.0); MEAN CORPUSCULAR HGB CONC 29.1 G/DL (32.0-36.0); MEAN CORPUSCULAR VOLUME 91 FL (80-99); MEAN PLATELET VOLUME 6.8 FL (6.5-10.1); PLATELET COUNT 208 K/UL (150-450); RED BLOOD COUNT 2.59 M/UL (4.20-5.40); RED CELL DISTRIBUTION WIDTH 17.4 % (11.6-14.8); WHITE BLOOD COUNT 11.8 K/UL (4.8-10.8)
[2017-01-23] MEDS ORDERED: TYLENOL650 MG/20. ORAL (10:11)
[2017-01-23] MEDS ORDERED: NORCO 5-325 TA1 EAC1 ORAL (10:15)
[2017-01-23] MEDS ORDERED: MULTIVITAMINS1 EAC8 ORAL (10:15)
[2017-01-23] MEDS ORDERED: MIRTAZAPINE15 MG ORAL (10:16)
[2017-01-23] MEDS ORDERED: OMEPRAZOLE20 M3 ORAL (10:16)
[2017-01-23] MEDS ORDERED: ALPRAZOLAM0.25 MG ORAL (10:17)
[2017-01-23] MEDS ORDERED: VITAMIN C500 M1 ORAL (10:17)
[2017-01-23 10:25] LABS: INR 1.2 (0.9-1.1); PROTHROMBIN TIME 12.7 SEC (9.30-11.50)
[2017-01-23 10:41] LABS: ALANINE AMINOTRANSFERASE 10 U/L (3-33); ALBUMIN/GLOBULIN RATIO 0.8 (1.0-2.7); ANION GAP 12 (5-15); ASPARTATE AMINO TRANSFERASE 17 U/L (5-40); CALCIUM 8.6 mg/dL (8.6-10.2); CARBON DIOXIDE 25 mEQ/L (20-30); CHLORIDE 106 mEQ/L (98-107); CREATININE 0.6 mg/dL (0.5-0.9); HEMOLYSIS 24; POTASSIUM 4.6 mEQ/L (3.4-4.9); SODIUM 143 mEQ/L (135-145); TOTAL PROTEIN 5.5 g/dL (6.6-8.7)
--- NOTE | 2017-01-23 11:06 | Diagnostic Imaging Report ---
Indications: Right thigh trauma, pain Technique: 2 views right thigh Findings: Comparison: Right hip radiographs 09/04/14 CT scan of the right knee 12/24/07 There is a longitudinal fracture through the distal posterior aspect of the right femur, extending to the margin of the prosthesis. Latter appears intact, normally aligned. The distal fracture fragment is moderately displaced posterior medially. Suprapatellar bursa is distended and increased attenuation. No additional fracture, dislocation, or other acute change identified. Prominent arterial mural calcifications. IMPRESSION: Displaced fracture distal aspect right femur Suprapatellar effusion, likely hemarthrosis Arteriosclerosis Previous right knee arthroplasty, intact
[2017-01-23 11:33] LABS: ANISOCYTOSIS 1+; BAND NEUTROPHILS % (MANUAL) 0 % (0-8); BASOPHILS % (MANUAL) 0 % (0-2); EOSINOPHILS % (MANUAL) 1 % (0-3); HYPOCHROMASIA 3+; LYMPHOCYTES % (MANUAL) 11 % (20-45); NEUTROPHILS % (MANUAL) 78 % (45-75); PLATELET ESTIMATE ADEQUATE; PLATELET MORPHOLOGY NORMAL; TOTAL CELLS COUNTED 100
[2017-01-23 11:39] VITALS: BP 110/52
[2017-01-23] MEDS ORDERED: ALPRAZolam 0.25mg tab ORAL PRN (11:45)
[2017-01-23] MEDS ORDERED: Lactulose 20gm/30ml UDC ORAL PRN ×2 (11:45)
[2017-01-23] MEDS ORDERED: Mylanta II UD 30ml ORAL PRN (11:45)
[2017-01-23] MEDS ORDERED: LORazepam Inj 2mg/ml 1ml IV PRN (11:45)
[2017-01-23 12:16] VITALS: BP 143/74
--- NOTE | 2017-01-23 13:35 | Diagnostic Imaging Report ---
Indications: Right leg injury, pain Technique: 2 views right leg. Findings: Comparison: None No fracture, dislocation, joint space widening , surrounding soft tissue swelling/foreign body/gas, or other acute changes are identified. Right knee prosthesis intact. Bones diffusely demineralized. Prominent arterial mural calcifications. IMPRESSION: No evidence of acute injury to the right leg Previous right knee arthroplasty, intact Arteriosclerosis Osteopenia.
--- NOTE | 2017-01-23 14:26 | Wound Care Consultation ---
Wound Assessment Wound Assessment #1: Wound Number: #1 Wound Present on Admission: Yes New Wound: No Status Change of Wound: No Wound Location Body Site Modif: mid Wound Location Body Site: sacral Wound Type: pressure ulcer Leesa Test: Does not Leesa Pressure Ulcer Stage: IV/unstageable Wound Thickness: Full Thickness Wound Length: 4.0 Wound Width: 3.0 Wound Depth: utd Percent of Wound Reader/Red: 40 Percent of Wound Bed Yellow/Wh: 50 Percent of Wound Purple/Maroon: 10 Wound Drainage Description: Serosanguineous Wound Drainage Amount: Moderate Wound Drainage Odor: None/Absent Tissue Surrounding Wound: Macerated Wound General Appearance: Reddened, Necrotic Wound Assessment #2: Wound Number: #2 Wound Present on Admission: Yes New Wound: No Status Change of Wound: No Wound Location Body Site Modif: left, lateral Wound Location Body Site: heel Wound Type: pressure ulcer Leesa Test: Does not Leesa Pressure Ulcer Stage: I Wound Length: 2.0 Wound Width: 2.0 Percent of Wound Reader/Red: 100 Wound Drainage Amount: None Wound Drainage Odor: None/Absent Tissue Surrounding Wound: Intact Wound General Appearance: Reddened Wound Assessment #3: Wound Number: #3 Wound Present on Admission: Yes New Wound: No Status Change of Wound: No Wound Location Body Site Modif: left, medial Wound Location Body Site: heel Wound Type: pressure ulcer Leesa Test: Does not Leesa Pressure Ulcer Stage: I Wound Length: 1.5 Wound Width: 1.5 Percent of Wound Reader/Red: 100 Wound Drainage Amount: None Wound Drainage Odor: None/Absent Tissue Surrounding Wound: Intact Wound General Appearance: Reddened Wound Assessment #4: Wound Number: #4 Wound Present on Admission: Yes New Wound: No Status Change of Wound: No Wound Location Body Site Modif: right, upper - inner Wound Location Body Site: other - groin Wound Type: other - open wound Leesa Test: Does not Leesa Wound Thickness: Partial Thickness Wound Length: 3.5 Wound Width: 0.5 Wound Depth: <0.1 Percent of Wound Reader/Red: 100 Wound Drainage Description: Serosanguineous Wound Drainage Amount: Scant Wound Drainage Odor: None/Absent Tissue Surrounding Wound: Erythemic Wound General Appearance: Reddened Wound Assessment #5: Wound Number: #5 Wound Present on Admission: Yes New Wound: No Status Change of Wound: No Wound Location Body Site Modif: upper, posterior Wound Location Body Site: back Wound Type: scar - hyperpigmented ,circular 2 sites Leesa Test: Does not Leesa Wound Thickness: Full Thickness Wound Drainage Amount: None Wound Drainage Odor: None/Absent Tissue Surrounding Wound: Intact Wound General Appearance: Asymptomatic, Open to air, Clean/Dry Wound Comment #1 Mid sacral pressure ulcer UNSTAGEABLE. #2 Left lateral heel pressure ulcer stage I. #3 Left medial heel pressure ulcer stage I. #4 Right upper inner groin open wound. #5 posterior upper back 2 circular hyperpigmented scar tissue. SAMANTHA KIM January 23, 2017 14:26
--- NOTE | 2017-01-23 14:40 | Consultation ---
History of Present Illness General Date patient seen: January 23, 2017 Chief Complaint: Multiple Trauma/Fall Referring physician: Dr. 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 Pt allegedly fell out of wheelchair. Her XR in ER showed "Displaced fracture distal aspect right femur". She is admitted for further treatment. Allergies: Coded Allergies: LATEX (Unverified Allergy, Mild, Rash, 09/03/14) QUININE (Unverified Allergy, Unknown, Rash Hives, 05/23/15) Quinine Sulfate Medication History Scheduled Ascorbic Acid* (Vitamin C*), 500 MG ORAL THREE TIMES A DAY, (Reported) Atorvastatin Calcium* (Lipitor*), 80 MG ORAL BEDTIME, (Reported) Carvedilol* (Carvedilol*), 3.125 MG ORAL BID, (Reported) Clopidogrel* (Clopidogrel*), 75 MG ORAL DAILY, (Reported) Donepezil Hcl* (Donepezil Hcl*), 5 MG ORAL DAILY, (Reported) Epoetin Barak (Procrit), 10,000 UNIT SUBQ ONCE A WEEK, (Reported) Ferrous Sulfate (Feosol), 325 MG PO THREE TIMES A DAY, (Reported) Folic Acid* (Folic Acid*), 1 MG ORAL DAILY, (Reported) Losartan Potassium* (Cozaar*), 50 MG ORAL DAILY, (Reported) Metformin Hcl* (Metformin Hcl*), 500 MG ORAL TWICE A DAY, (Reported) Mirtazapine* (Remeron*), 15 MG ORAL BEDTIME, (Reported) Multivitamin With Minerals (Multivitamins With Minerals*), 1 TAB ORAL DAILY, ( Reported) Omeprazole (Omeprazole), 20 MG ORAL DAILY, (Reported) Pantoprazole* (Protonix*), 40 MG ORAL DAILY, (Reported) Sertraline Hcl* (Zoloft*), 100 MG ORAL DAILY, (Reported) Scheduled PRN Acetaminophen (Acetaminophen), 650 MG ORAL Q6H PRN for Prn Headache/Temp > 101, (Reported) Alprazolam* (Xanax*), 0.25 MG ORAL EVERY 6 HOURS PRN for For Anxiety, (Reported) Bisacodyl* (Dulcolax*), 5 MG ORAL DAILY PRN for Constipation, (Reported) Hydrocodone Bit/Acetaminophen 5-325* ([place] 5-325 Tablet*), 1 TAB ORAL Q6HR PRN for For Pain, (Reported) Hydrocodone Bit/Acetaminophen 5-325* ([place] 5-325 Tablet*), 1 TAB ORAL Q8HR PRN for For Pain, (Reported) Lactulose (Lactulose*), 20 ML ORAL THREE TIMES A DAY PRN for PRN, (Reported) Ondansetron (Zofran), 4 MG ORAL Q6H PRN for Nausea & Vomiting, (Reported) Temazepam (Temazepam*), 15 MG ORAL BEDTIME PRN for Insomnia, (Reported) Patient History Healthcare decision maker Resuscitation status Full Code Advanced Directive on File Yes Past Medical/Surgical History Past Medical/Surgical History: (1) Patient is Taoist (2) History of heart artery stent (3) CVA (cerebrovascular accident) (4) Sick sinus syndrome (5) DVT (deep venous thrombosis) (6) Cerebral vascular disease Review of Systems All Other Systems: negative except mentioned in HPI Physical Exam General Appearance: cachetic Lines, tubes and drains: peripheral, central line HEENT: normocephalic, atraumatic Neck: non-tender, normal alignment Respiratory/Chest: chest wall non-tender, lungs clear Cardiovascular/Chest: normal peripheral pulses, normal rate Abdomen: normal bowel sounds, non tender Genitourinary/Rectal: normal rectal exam Extremities: normal range of motion, non-tender 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: 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 II-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 grossly normal Lymphatic: anterior cervical Last 24 Hour Vital Signs Date Time Temp Pulse Resp B/P Pulse Ox O2 Delivery O2 Flow Rate FiO2 01/23/17 12:16 97.2 105 21 143/74 96 Room Air 01/23/17 11:51 97 20 110/52 96 Room Air 01/23/17 11:39 97.3 97 20 110/52 96 Room Air 01/23/17 10:21 97.2 01/23/17 08:40 98.8 97 16 116/73 94 Room Air Laboratory Tests Test 01/23/17 10:00 White Blood Count 11.8 K/UL (4.8-10.8) H Red Blood Count 2.59 M/UL (4.20-5.40) L Hemoglobin 6.9 G/DL (12.0-16.0) *L Hematocrit 23.7 % (37.0-47.0) L Mean Corpuscular Volume 91 FL (80-99) Mean Corpuscular Hemoglobin 26.6 PG (27.0-31.0) L Mean Corpuscular Hemoglobin Concent 29.1 G/DL (32.0-36.0) L Red Cell Distribution Width 17.4 % (11.6-14.8) H Platelet Count 208 K/UL (150-450) Mean Platelet Volume 6.8 FL (6.5-10.1) Neutrophils (%) (Auto) % (45.0-75.0) Lymphocytes (%) (Auto) % (20.0-45.0) Monocytes (%) (Auto) % (1.0-10.0) Eosinophils (%) (Auto) % (0.0-3.0) Basophils (%) (Auto) % (0.0-2.0) Differential Total Cells Counted 100 Neutrophils % (Manual) 78 % (45-75) H Lymphocytes % (Manual) 11 % (20-45) L Monocytes % (Manual) 10 % (1-10) Eosinophils % (Manual) 1 % (0-3) Basophils % (Manual) 0 % (0-2) Band Neutrophils 0 % (0-8) Platelet Estimate Adequate Platelet Morphology Normal Hypochromasia 3+ Anisocytosis 1+ Prothrombin Time 12.7 SEC (9.30-11.50) H Prothromb Time International Ratio 1.2 (0.9-1.1) H Activated Partial Thromboplast Time 29 SEC (23-33) Sodium Level 143 mEQ/L (135-145) Potassium Level 4.6 mEQ/L (3.4-4.9) Chloride Level 106 mEQ/L (98-107) Carbon Dioxide Level 25 mEQ/L (20-30) Anion Gap 12 (5-15) Blood Urea Nitrogen 24 mg/dL (7-23) H Creatinine 0.6 mg/dL (0.5-0.9) Estimat Glomerular Filtration Rate mL/min (>60) Glucose Level 103 mg/dL (74-106) Calcium Level 8.6 mg/dL (8.6-10.2) Total Bilirubin 0.2 mg/dL (0.0-1.2) Aspartate Amino Transf (AST/SGOT) 17 U/L (5-40) Alanine Aminotransferase (ALT/SGPT) 10 U/L (3-33) Alkaline Phosphatase 71 U/L (35-104) Total Protein 5.5 g/dL (6.6-8.7) L Albumin 2.5 g/dL (3.5-5.2) L Globulin 3.0 g/dL Albumin/Globulin Ratio 0.8 (1.0-2.7) L Height (Feet): 5 Height (Inches): 1.00 Weight (Pounds): 138 Medications Current Medications Medications (Trade) Dose Ordered Sig/Don Route PRN Reason Start Time Stop Time Status Last Admin Dose Admin Acetaminophen (Tylenol) 650 mg Q4H PRN ORAL T>100.5 01/23/17 11:45 02/22/17 11:44 Al Hydroxide/Mg Hydroxide (Mylanta II) 30 ml Q6H PRN ORAL dyspepsia 01/23/17 11:45 02/22/17 11:44 Alprazolam (Xanax) 0.25 mg Q6H PRN ORAL For Anxiety 01/23/17 11:45 01/30/17 11:44 Ascorbic Acid (Vitamin C) 500 mg THREE TIMES A DAY ORAL 01/23/17 13:00 02/22/17 12:59 Atorvastatin Calcium (Lipitor) 80 mg BEDTIME ORAL 01/23/17 21:00 02/22/17 20:59 Carvedilol (Coreg) 3.125 mg Q12HR ORAL 01/23/17 21:00 02/22/17 20:59 Dextrose (Dextrose 50%) STAT PRN IV Hypoglycemia 01/23/17 11:45 02/22/17 11:44 Donepezil HCl (Aricept) 5 mg DAILY ORAL 01/24/17 09:00 02/23/17 08:59 Heparin Sodium (Porcine) (Heparin 5000 units/ml) 5,000 units EVERY 12 HOURS SUBQ 01/23/17 21:00 02/22/17 20:59 Insulin Aspart (NovoLOG) BEFORE MEALS AND HS SUBQ 01/23/17 16:30 02/22/17 16:29 Lactulose (Cephulac) 20 gm Q8H PRN ORAL CONSTIPATION 01/23/17 11:45 02/22/17 11:44 Lorazepam (Ativan 2mg/ml 1ml) 0.5 mg Q4H PRN IV For Anxiety 01/23/17 11:45 01/30/17 11:44 Mirtazapine (Remeron) 15 mg BEDTIME ORAL 01/23/17 21:00 02/22/17 20:59 Morphine Sulfate (Morphine Sulfate) 2 mg Q4H PRN IVP PAIN 4-10 01/23/17 11:45 01/30/17 11:44 Ondansetron HCl (Zofran) 4 mg Q6H PRN IVP Nausea & Vomiting 01/23/17 11:45 02/22/17 11:44 Polyethylene Glycol (Miralax) 17 gm HSPRN PRN ORAL Constipation 01/23/17 21:00 02/22/17 20:59 Sertraline HCl (Zoloft) 100 mg DAILY ORAL 01/24/17 09:00 02/23/17 08:59 Zolpidem Tartrate (Ambien) 5 mg HSPRN PRN ORAL Insomnia 01/23/17 21:00 02/22/17 20:59 Assessment/Plan Problem List: (1) Hip fracture ICD Codes: S72.009A - Fracture of unspecified part of neck of unspecified femur , initial encounter for closed fracture SNOMED: 537073925 (2) Anemia ICD Codes: D64.9 - Anemia, unspecified SNOMED: 487092754 (3) Hypertension ICD Codes: I10 - Hypertension SNOMED: 38210511 (4) ICD (implantable cardioverter-defibrillator) in place ICD Codes: Z95.810 - Presence of automatic (implantable) cardiac defibrillator SNOMED: 359176171, 743564950 (5) Patient is Taoist ICD Codes: Z78.9 - Other specified health status SNOMED: 40152003 (6) Diabetes mellitus ICD Codes: E11.9 - Diabetes mellitus SNOMED: 96330085 Assessment/Plan pain control ortho evaluation hold plavix venofer + epogen sliding scale diabetic diet MARLENY TURPIN January 23, 2017 14:40
[2017-01-23] MEDS ORDERED: Sodium Bicarbonate 8.4% 50ml Inj IV ONE (15:00)
[2017-01-23 15:36] VITALS: BP 117/82
[2017-01-23] MEDS ORDERED: Heparin Sod 1000 units/ml 10ml IV ONE (16:00)
[2017-01-23] MEDS ORDERED: Lidocaine 1% Plain 30 ml INJ ONE (16:00)
--- NOTE | 2017-01-23 16:24 | Diagnostic Imaging Report ---
Indications: Long-term central IV access required for intravenous therapy Technique: The procedure indications, risks, and alternatives were explained to the patient's family who understands and gives consent to proceed. Strict aseptic technique was utilized, including hand washing, use of hat and mask, use of sterile gown and gloves, sterile ultrasound gel and probe cover, prepping of right arm skin with 2% chlorhexidine solution, and application of full-body sterile barrier over this area. Skin and subcutaneous soft tissues were infiltrated with 1% lidocaine and sodium bicarbonate. A small dermatotomy was made, through which the larger of two patent, adequate size right brachial veins was punctured percutaneously under direct sonographic guidance with a 21-gauge needle. Exchange was made over a 0.018 inch guidewire for a 5 [place] peel-away sheath. A [employer]-PICC 5 [place] dual lumen central venous catheter was cut to appropriate length, then advanced through the sheath over the guidewire under direct fluoroscopic guidance into the superior vena cava. Guidewire and sheath were removed. Both catheter ports were aspirated, then flushed with heparinized saline. Final image was obtained. Catheter was secured the skin with adhesive dressing. Patient tolerated procedure well without immediate complications. Total fluoroscopy time: 0.2 minutes. Dose-area product: 6 dGy-cm2 Findings: Final image demonstrates tip of the central venous catheter at the level of superior vena cava-right atrial junction, 30 cm in from the skin. Both ports aspirate and flush freely. IMPRESSION:? Placement of peripherally inserted central venous catheter via right brachial vein, working well.
[2017-01-23] MEDS: NovoLOG Insulin Flexpen SUBQ SCH ×2 (16:30→21:00)
[2017-01-23] MEDS: Morphine Sulfate 2mg/ml Inj IVP PRN (16:36)
[2017-01-23] MEDS: Ascorbic Acid 500mg tab ORAL SCH ×2 (16:36→18:30)
--- NOTE | 2017-01-23 18:23 | History & Physical ---
History and Physical History & Physicial Dictated for Int Med-Dr Jones no. [id number]. DELFIN MARTINEZ January 23, 2017 18:23
[2017-01-23 20:00] VITALS: BP 116/53
[2017-01-23] MEDS: Heparin 5000 units/ml inj SUBQ SCH (21:00)
[2017-01-23] MEDS ORDERED: Miralax 17gm pkt ORAL PRN (21:00)
[2017-01-23] MEDS ORDERED: Zolpidem 5mg tab ORAL PRN (21:00)
[2017-01-23] MEDS: Atorvastatin 80mg tab ORAL SCH (21:28)
[2017-01-23 23:22] LABS: APPEARANCE,URINE CLEAR; KETONES,URINE NEGATIVE (NEGATIVE); LEUKOCYTE ESTERASE ,URINE 1+ (NEGATIVE); NITRITE,URINE NEGATIVE (NEGATIVE); PH,URINE 5 (4.5-8.0); PROTEIN,URINE 1+ (NEGATIVE); UROBILINOGEN,URINE 1 MG/DL (0.0-1.0)
[2017-01-23 23:49] LABS: BACTERIA,URINE FEW /HPF; RBC,URINE 0-2 /HPF (0 - 2); SQUAMOUS EPITHELIAL CELL,UR OCCASIONAL /LPF (NONE/OCC)
[2017-01-24] VITALS (7 sets, daily range): BP systolic 93–121; BP diastolic 48–63
--- NOTE | 2017-01-24 00:41 | History and Physical Report ---
DATE OF ADMISSION: 01/23/2017 CHIEF COMPLAINT: The patient is a 76-year-old female, who presents with chief complaint of right knee pain. HISTORY OF PRESENT ILLNESS: The patient has a history of severe anemia. The patient has refused blood transfusions in the past. The patient was admitted from 12/26/2016 through 01/03/2017 to [facility]. Please see history and physical and discharge summary dictated at that time. The patient is currently a resident of [facility]. The patient apparently fell from her wheelchair striking her right knee earlier today. The patient presented to [facility] emergency room. An x-ray revealed a displaced fracture of the right distal femur. The patient is admitted for displaced fracture of the right distal femur. REVIEW OF SYSTEMS: Constitutional: The patient denies weight loss of weight gain. The patient denies fevers or chills. HEENT: The patient denies ear or throat pain. The patient denies headache. Cardiovascular: The patient denies palpitations or chest pain. Chest: The patient denies wheezes or shortness of breath. Abdominal: The patient denies nausea, vomiting, diarrhea, or constipation. Genitourinary: The patient denies dysuria or increased frequency of urination. Neuromuscular: The patient complains of right knee pain. The patient denies seizures or generalized weakness. PAST MEDICAL HISTORY: Significant for: 1. Severe iron-deficiency anemia, the patient is a Hinduism and has refused transfusions in the past. 2. Cerebrovascular accident. 3. Left hemiparesis. 4. Coronary artery disease, status post stent placement in 2014. 5. Congestive heart failure. 6. Diabetes, type 2. 7. Hypertension. 8. Hypercholesterolemia. 9. History of deep venous thrombosis of the left leg with IVC filter placement. 10. Acute deep venous thrombosis of the right leg. 11. Automatic implanted cardioverter-defibrillator in situ. PAST SURGICAL HISTORY: Significant for: 1. Cholecystectomy. 2. Cervical spine fusion. 3. Lumbar spine surgery. 4. Bilateral knee arthroplasty. 5. Carotid stenting for carotid stenosis. 6. Automatic implanted cardioverter-defibrillator placement. CURRENT MEDICATIONS: 1. Tylenol 650 mg one tablet p.o. every six hours as needed. 2. Atorvastatin 80 mg one tablet p.o. daily. 3. Carvedilol 3.125 mg one tablet p.o. daily. 4. Cozaar 50 mg one tablet p.o. daily. 5. Aricept 5 mg one tablet p.o. at bedtime. 6. Erythropoietin 67507 units subcutaneously every . 7. Iron sulfate 325 mg one tablet p.o. three times a day. 8. Folic acid 1 mg one tablet p.o. daily. 9. Lactulose 20 mL p.o. q.8 hours as needed. 10. Metformin 500 mg one tablet p.o. twice daily. 11. Multivitamin one tablet p.o. daily. 12. [place] 5/325 mg one tablet p.o. q.8 hours. 13. Omeprazole 20 mg one tablet p.o. daily. 14. Remeron 15 mg one tablet p.o. at bedtime. 15. Restoril 15 mg one tablet p.o. at bedtime. 16. Xanax 0.25 mg one tablet p.o. every six hours as needed. 17. Zofran 4 mg one tablet p.o. every four hours as needed. ALLERGIES: To latex and quinine. SOCIAL HISTORY: The patient is a Hinduism. The patient is . The patient denies tobacco or alcohol use. The patient is currently a resident of [facility]. PHYSICAL EXAMINATION: VITAL SIGNS: Temperature 97.2, respirations 20, pulse 97, and blood pressure 110/52. GENERAL: The patient is a well-developed, well-nourished, thin-appearing female, in no apparent distress. HEENT: Eyes, pupils are equal and responsive to light and accommodation. Extraocular movements are intact. NECK: Supple without lymphadenopathy. CHEST: Lungs are clear to auscultation bilaterally without wheezes or rales. CARDIOVASCULAR: Regular rhythm and rate. S1 and S2. No murmurs, rubs, or gallops. ABDOMEN: Soft, nontender, and nondistended. Positive bowel sounds. No evidence of hepatosplenomegaly. Currently, no rebound or guarding. EXTREMITIES: Negative for clubbing, cyanosis, or edema. There is pain to palpation in the right knee. RECTAL/GENITAL: Refused. NEUROLOGIC: Cranial nerves II through XII are grossly intact without focal deficits. The patient does have a left hemiparesis. LABORATORY AND DIAGNOSTIC DATA: Laboratory studies: WBC 11.8, hemoglobin 6.9, hematocrit 23.7, and platelets 208,000. Sodium 143, potassium 4.6, chloride 106, CO2 25, BUN 24, creatinine 0.6, and glucose 103. X-ray of the right femur demonstrates displaced fracture of the distal aspect of the right femur. ASSESSMENT: This is a 76-year-old female with: 1. Displaced fracture of the right distal femur. 2. Acute deep venous thrombosis, right leg. 3. Chronic deep venous thrombosis of the left leg. 4. Severe iron-deficiency anemia. 5. Cerebrovascular disease. 6. Left hemiparesis. 7. Coronary artery disease. 8. Congestive heart failure. 9. Diabetes. 10. Hypertension. 11. Hypercholesterolemia. 12. Automatic implanted cardioverter-defibrillator in situ. TREATMENT: 1. Displaced fracture of the right distal femur. An Orthopedic consultation has been obtained with Dr. Brennan Mejia. We will follow recommendations of Orthopedics. 2. Acute deep venous thrombosis of the right leg. 3. Chronic deep venous thrombosis of the left leg. 4. Severe iron-deficiency anemia. Continue iron sulfate as above. Continue Epogen as above. The patient is a Hinduism and has refused transfusions in the past. 5. Cerebrovascular disease. 6. Left hemiparesis. 7. Coronary artery disease. 8. Congestive heart failure. Continue Coreg as above. 9. Diabetes type 2. Continue metformin as above. 10. Hypertension. Continue Cozaar as above. 11. Hypercholesterolemia. Continue Lipitor as above. 12. Automatic implanted cardioverter-defibrillator in situ. Lorne Rios M.D. DR: MARNIE JOB#: [id number] CC:
[2017-01-24] MEDS: Morphine Sulfate 2mg/ml Inj IVP PRN (00:48)
[2017-01-24 05:34] LABS: MEAN CORPUSCULAR HGB CONC 29.7 G/DL (32.0-36.0); MEAN CORPUSCULAR VOLUME 91 FL (80-99); MEAN PLATELET VOLUME 6.2 FL (6.5-10.1); PLATELET COUNT 164 K/UL (150-450); RED BLOOD COUNT 1.96 M/UL (4.20-5.40); RED CELL DISTRIBUTION WIDTH 17.6 % (11.6-14.8); WHITE BLOOD COUNT 8.8 K/UL (4.8-10.8)
[2017-01-24 06:03] LABS: ALANINE AMINOTRANSFERASE 9 U/L (3-33); ALBUMIN/GLOBULIN RATIO 0.8 (1.0-2.7); ANION GAP 12 (5-15); ASPARTATE AMINO TRANSFERASE 13 U/L (5-40); CALCIUM 8.3 mg/dL (8.6-10.2); CARBON DIOXIDE 25 mEQ/L (20-30); CHLORIDE 104 mEQ/L (98-107); CHOLESTEROL 87 mg/dL (< 200); CHOLESTEROL/HDL RATIO 1.9 (3.3-4.4); CREATININE 0.6 mg/dL (0.5-0.9); HEMOLYSIS 1; POTASSIUM 4.4 mEQ/L (3.4-4.9); SODIUM 141 mEQ/L (135-145); TOTAL PROTEIN 4.7 g/dL (6.6-8.7)
[2017-01-24] MEDS: NovoLOG Insulin Flexpen SUBQ SCH ×4 (06:29→22:20)
[2017-01-24 07:41] LABS: LDL CHOLESTEROL (CALC.) 26 mg/dL (60-99)
[2017-01-24] MEDS: Heparin 5000 units/ml inj SUBQ SCH ×2 (09:00→22:20)
[2017-01-24] MEDS: Donepezil 5mg Tab ORAL SCH (10:17)
[2017-01-24] MEDS: Sertraline 100mg tab ORAL SCH (10:17)
[2017-01-24] MEDS: Ascorbic Acid 500mg tab ORAL SCH ×3 (10:17→18:21)
[2017-01-24 10:21] LABS: BAND NEUTROPHILS % (MANUAL) 1 % (0-8); BASOPHILS % (MANUAL) 0 % (0-2); EOSINOPHILS % (MANUAL) 1 % (0-3); LYMPHOCYTES % (MANUAL) 5 % (20-45); NEUTROPHILS % (MANUAL) 90 % (45-75); PLATELET ESTIMATE ADEQUATE; PLATELET MORPHOLOGY NORMAL; TOTAL CELLS COUNTED 100
[2017-01-24 10:22] LABS: ANISOCYTOSIS 1+; HYPOCHROMASIA 3+
--- NOTE | 2017-01-24 10:31 | Consultation ---
DATE OF CONSULTATION: 01/23/2017 CONSULTING PHYSICIAN: Jose Sinha M.D. REQUESTING PHYSICIAN: 1. Lobito Jones M.D. 2. Lorne Rios M.D. HISTORY OF PRESENT ILLNESS: The patient is a 76-year-old female, who resides in correction who fell from a wheelchair. She subsequently was brought to the emergency room. She was diagnosed with a right femur fracture. Given that she had evidence of a fracture, orthopedic consultation was obtained for further care and recommendation. PAST MEDICAL HISTORY: Holiness, end-stage coronary disease. PAST SURGICAL HISTORY: Include a stent placement. MEDICATION: Reviewed in the chart. ALLERGIES: Latex and quinine. SOCIAL HISTORY: The patient resides in a correction. FAMILY HISTORY: Noncontributory. PHYSICAL EXAMINATION: The patient is alert and oriented. She is resting comfortably in bed. Right knee examination, there is mild swelling. There is some pain along the right knee along the medial joint line. Moderate knee effusion. Posterior calf is soft. Neurovascular is normal. IMAGING STUDIES: Three views of the right femur showed what appears to be a well-fixed total knee implant in place. There is a fracture through the medial femoral condyle. ASSESSMENT: Right periprosthetic femur fracture. DISCUSSION: At this point, what I would like to do is get a CT scan to better evaluate the fracture pattern. Based on the CT scan, further recommendations can be made. Given the fact that she is having and the fact that she is a Uatsdin, I am not sure this is a fracture that I would fix. She has very limited ambulation and she is wheelchair bound, therefore, leaving it in a knee immobilizer and letting it heal, understanding that there is going to be limitations, would be reasonable given the distal nature of the femoral condyle fracture. These types of fractures often necessitate revision of the knee implant, and therefore the surgery that would be entailed could be extremely complicated. I will review the CT scan and make further recommendations once I review the CT scan. Jose Sinha M.D. DR: ADRYAN JOB#: [id number] CC:
--- NOTE | 2017-01-24 10:45 | Diagnostic Imaging Report ---
Indication: Acute fracture of the right knee Technique: Continuous helical imaging of the right knee was performed in the transaxial plane. Coronal 2-D reformatted images were also generated. Study obtained in a Siemens Sensation [address] total DLP 368 mGycm CTD/vol 16 mGy Comparison: Plain film 01/23/17 Findings: There is a moderately displaced acute fracture involving the medial femoral condyle just above the femoral component of a total of the total prosthesis. There are is the suggestion of moderate impaction of the fracture which is displaced laterally. The fracture is vertically oriented extending from just above the medial femoral condyle this to the prosthesis. The bones are osteopenic. There is obviously extensive amount of streak artifact obscuring periprosthetic bone. There is no obvious fracture of the visualized tibia or fibula. Is the prosthesis itself is better demonstrated on the plain film evaluation but shows no obvious malalignment. There is a moderate size joint hemarthrosis noted in the suprapatellar region. Moderate calcification of the popliteal artery noted. There is moderate muscular atrophy and fatty replacement about the knee. Impression: Acute moderately displaced and impacted fracture of the medial femoral condyle extending to the total knee prosthesis. Joint hemarthrosis Osteoporosis Vascular disease The CT scanner at [facility] is accredited by the [employer] and the scans are performed using dose optimization techniques as appropriate to a performed exam including Automatic Exposure control.
--- NOTE | 2017-01-24 14:22 | Pulmonology Progress Note ---
Assessment/Plan Problems: (1) Hip fracture (2) Anemia (3) Hypertension (4) ICD (implantable cardioverter-defibrillator) in place (5) Patient is Denominational (6) Diabetes mellitus Assessment/Plan start epogen, folic acid, venofer etc ortho evaluation reviewed. check h/h pain control Subjective ROS Limited/Unobtainable: No Interval Events: awake, comfortable Allergies: Coded Allergies: LATEX (Unverified Allergy, Mild, Rash, 09/03/14) QUININE (Unverified Allergy, Unknown, Rash Hives, 05/23/15) Quinine Sulfate Objective Last 24 Hour Vital Signs Date Time Temp Pulse Resp B/P Pulse Ox O2 Delivery O2 Flow Rate FiO2 01/24/17 11:54 98.9 100 19 116/59 94 01/24/17 09:00 103 105/56 01/24/17 07:53 98.8 103 20 93/48 98 01/24/17 04:00 97.6 75 18 111/58 96 Room Air 01/24/17 01:18 99.1 01/24/17 00:30 121/63 01/24/17 00:00 98.0 109 18 100/50 96 Room Air 01/23/17 21:00 79 116/53 01/23/17 20:00 99.1 79 18 116/53 93 Room Air 01/23/17 15:36 97.5 98 20 117/82 96 Nasal Cannula Intake and Output 01/23/17 01/24/17 19:00 07:00 Intake Total 320 ml 120 ml Output Total 400 ml 300 ml Balance -80 ml -180 ml Intake Oral 320 ml 120 ml Output Urine Total 400 ml 300 ml # Bowel Movements 1 General Appearance: cachetic HEENT: normocephalic, anicteric Respiratory/Chest: chest wall non-tender, lungs clear Breasts: no masses Cardiovascular: normal peripheral pulses, regularly irregular Abdomen: soft, non tender Extremities: no cyanosis, no clubbing Skin: no rash Laboratory Tests 01/23/17 22:40: Urine Color Yellow, Urine Appearance Clear, Urine pH 5, Urine Specific [place] 1.015, Urine Protein 1+H, Urine Glucose (UA) Negative, Urine Ketones Negative, Urine Occult Blood Negative, Urine Nitrite Negative, Urine Bilirubin Negative, Urine Urobilinogen 1H, Urine Leukocyte Esterase 1+H, Urine RBC 0-2, Urine WBC 2- 4, Urine Squamous Epithelial Cells Occasional, Urine Bacteria Few 01/24/17 05:00: White Blood Count 8.8, Red Blood Count 1.96L, Hemoglobin 5.3*L, Hematocrit 17.8L , Mean Corpuscular Volume 91, Mean Corpuscular Hemoglobin 27.0, Mean Corpuscular Hemoglobin Concent 29.7L, Red Cell Distribution Width 17.6H, Platelet Count 164, Mean Platelet Volume 6.2L, Neutrophils (%) (Auto) , Lymphocytes (%) (Auto) , Monocytes (%) (Auto) , Eosinophils (%) (Auto) , Basophils (%) (Auto) , Differential Total Cells Counted 100, Neutrophils % ( Manual) 90H, Lymphocytes % (Manual) 5L, Monocytes % (Manual) 3, Eosinophils % ( Manual) 1, Basophils % (Manual) 0, Band Neutrophils 1, Platelet Estimate Adequate, Platelet Morphology Normal, Hypochromasia 3+, Poikilocytosis , Anisocytosis 1+, Sodium Level 141, Potassium Level 4.4, Chloride Level 104, Carbon Dioxide Level 25, Anion Gap 12, Blood Urea Nitrogen 26H, Creatinine 0.6, Estimat Glomerular Filtration Rate , Glucose Level 85, Calcium Level 8.3L, Total Bilirubin 0.3, Aspartate Amino Transf (AST/SGOT) 13, Alanine Aminotransferase (ALT/SGPT) 9, Alkaline Phosphatase 62, Total Protein 4.7L, Albumin 2.2L, Globulin 2.5, Albumin/Globulin Ratio 0.8L, Triglycerides Level 70 , Cholesterol Level 87, LDL Cholesterol 26L, HDL Cholesterol 47, Cholesterol/ HDL Ratio 1.9L, Thyroid Stimulating Hormone (TSH) 2.940 Current Medications Medications (Trade) Dose Ordered Sig/Don Route PRN Reason Start Time Stop Time Status Last Admin Dose Admin Acetaminophen (Tylenol) 650 mg Q4H PRN ORAL T>100.5 01/23/17 11:45 02/22/17 11:44 Al Hydroxide/Mg Hydroxide (Mylanta II) 30 ml Q6H PRN ORAL dyspepsia 01/23/17 11:45 02/22/17 11:44 Alprazolam (Xanax) 0.25 mg Q6H PRN ORAL For Anxiety 01/23/17 11:45 01/30/17 11:44 Ascorbic Acid (Vitamin C) 500 mg THREE TIMES A DAY ORAL 01/23/17 13:00 02/22/17 12:59 01/24/17 13:54 Atorvastatin Calcium (Lipitor) 80 mg BEDTIME ORAL 01/23/17 21:00 02/22/17 20:59 01/23/17 21:28 Carvedilol (Coreg) 3.125 mg Q12HR ORAL 01/23/17 21:00 02/22/17 20:59 Dextrose (Dextrose 50%) STAT PRN IV Hypoglycemia 01/23/17 11:45 02/22/17 11:44 Donepezil HCl (Aricept) 5 mg DAILY ORAL 01/24/17 09:00 02/23/17 08:59 01/24/17 10:17 Heparin Sodium (Porcine) (Heparin 5000 units/ml) 5,000 units EVERY 12 HOURS SUBQ 01/23/17 21:00 02/22/17 20:59 Insulin Aspart (NovoLOG) BEFORE MEALS AND HS SUBQ 01/23/17 16:30 02/22/17 16:29 Lactulose (Cephulac) 20 gm Q8H PRN ORAL CONSTIPATION 01/23/17 11:45 02/22/17 11:44 Lorazepam (Ativan 2mg/ml 1ml) 0.5 mg Q4H PRN IV For Anxiety 01/23/17 11:45 01/30/17 11:44 Mirtazapine (Remeron) 15 mg BEDTIME ORAL 01/23/17 21:00 02/22/17 20:59 01/23/17 21:28 Morphine Sulfate (Morphine Sulfate) 2 mg Q4H PRN IVP PAIN 4-10 01/23/17 11:45 01/30/17 11:44 01/24/17 00:48 Ondansetron HCl (Zofran) 4 mg Q6H PRN IVP Nausea & Vomiting 01/23/17 11:45 02/22/17 11:44 Polyethylene Glycol (Miralax) 17 gm HSPRN PRN ORAL Constipation 01/23/17 21:00 02/22/17 20:59 Sertraline HCl (Zoloft) 100 mg DAILY ORAL 01/24/17 09:00 02/23/17 08:59 01/24/17 10:17 Zolpidem Tartrate (Ambien) 5 mg HSPRN PRN ORAL Insomnia 01/23/17 21:00 02/22/17 20:59 MARLENY TURPIN January 24, 2017 14:22
[2017-01-24] MEDS ORDERED: Vitamin B12 1000mcg/ml Inj IM ONE (16:00)
--- NOTE | 2017-01-24 18:02 | Internal Med Progress Note ---
Subjective Date of Service: January 24, 2017 Physician Name Delfin Martinez Attending Physician Lobito Jones MD Current Medications Medications (Trade) Dose Ordered Sig/Don Route PRN Reason Start Time Stop Time Status Last Admin Dose Admin Acetaminophen (Tylenol) 650 mg Q4H PRN ORAL T>100.5 01/23/17 11:45 02/22/17 11:44 Al Hydroxide/Mg Hydroxide (Mylanta II) 30 ml Q6H PRN ORAL dyspepsia 01/23/17 11:45 02/22/17 11:44 Alprazolam (Xanax) 0.25 mg Q6H PRN ORAL For Anxiety 01/23/17 11:45 01/30/17 11:44 Ascorbic Acid (Vitamin C) 500 mg THREE TIMES A DAY ORAL 01/23/17 13:00 02/22/17 12:59 01/24/17 13:54 Atorvastatin Calcium (Lipitor) 80 mg BEDTIME ORAL 01/23/17 21:00 02/22/17 20:59 01/23/17 21:28 Carvedilol (Coreg) 3.125 mg Q12HR ORAL 01/23/17 21:00 02/22/17 20:59 Dextrose (Dextrose 50%) STAT PRN IV Hypoglycemia 01/23/17 11:45 02/22/17 11:44 Donepezil HCl (Aricept) 5 mg DAILY ORAL 01/24/17 09:00 02/23/17 08:59 01/24/17 10:17 Epoetin Barak (Procrit (for non ESRD use)) 10,000 units Q48H SUBQ 01/24/17 21:00 02/23/17 20:59 Folic Acid (Folate) 1 mg DAILY ORAL 01/25/17 09:00 02/24/17 08:59 Heparin Sodium (Porcine) (Heparin 5000 units/ml) 5,000 units EVERY 12 HOURS SUBQ 01/23/17 21:00 02/22/17 20:59 Insulin Aspart (NovoLOG) BEFORE MEALS AND HS SUBQ 01/23/17 16:30 02/22/17 16:29 Iron Sucrose/ Sodium Chloride (Venofer/Sodium Chloride) 60 ml @ 240 mls/hr BEDTIME IVPB 01/24/17 21:00 01/28/17 21:14 Lactulose 20 gm 20 gm Q8H PRN ORAL CONSTIPATION 01/23/17 11:45 02/22/17 11:44 Lorazepam (Ativan 2mg/ml 1ml) 0.5 mg Q4H PRN IV For Anxiety 01/23/17 11:45 01/30/17 11:44 Mirtazapine (Remeron) 15 mg BEDTIME ORAL 01/23/17 21:00 02/22/17 20:59 01/23/17 21:28 Morphine Sulfate (Morphine Sulfate) 2 mg Q4H PRN IVP PAIN 4-10 01/23/17 11:45 01/30/17 11:44 01/24/17 00:48 Ondansetron HCl (Zofran) 4 mg Q6H PRN IVP Nausea & Vomiting 01/23/17 11:45 02/22/17 11:44 Polyethylene Glycol (Miralax) 17 gm HSPRN PRN ORAL Constipation 01/23/17 21:00 02/22/17 20:59 Sertraline HCl (Zoloft) 100 mg DAILY ORAL 01/24/17 09:00 02/23/17 08:59 01/24/17 10:17 Zolpidem Tartrate (Ambien) 5 mg HSPRN PRN ORAL Insomnia 01/23/17 21:00 02/22/17 20:59 Allergies: Coded Allergies: LATEX (Unverified Allergy, Mild, Rash, 09/03/14) QUININE (Unverified Allergy, Unknown, Rash Hives, 05/23/15) Quinine Sulfate ROS Limited/Unobtainable: No Constitutional: Reports: no symptoms HEENT: Reports: no symptoms Cardiovascular: Reports: no symptoms Respiratory: Reports: no symptoms Gastrointestinal/Abdominal: Reports: no symptoms Genitourinary: Reports: no symptoms Neurologic/Psychiatric: Reports: no symptoms Subjective 76 YO F admitted with leg pain. Now fracture distal right femur. Cover for Kaylynn Jones. Objective Last Vital Signs Date Time Temp Pulse Resp B/P Pulse Ox O2 Delivery O2 Flow Rate FiO2 01/24/17 15:44 98.1 96 21 109/56 98 Room Air Laboratory Tests Test 01/23/17 22:40 01/24/17 05:00 Urine Color Yellow Urine Appearance Clear Urine pH 5 (4.5-8.0) Urine Specific [place] 1.015 (1.005-1.035) Urine Protein 1+ (NEGATIVE) H Urine Glucose (UA) Negative (NEGATIVE) Urine Ketones Negative (NEGATIVE) Urine Occult Blood Negative (NEGATIVE) Urine Nitrite Negative (NEGATIVE) Urine Bilirubin Negative (NEGATIVE) Urine Urobilinogen 1 MG/DL (0.0-1.0) H Urine Leukocyte Esterase 1+ (NEGATIVE) H Urine RBC 0-2 /HPF (0 - 2) Urine WBC 2-4 /HPF (0 - 2) Urine Squamous Epithelial Cells Occasional /LPF Urine Bacteria Few /HPF (NONE) White Blood Count 8.8 K/UL (4.8-10.8) Red Blood Count 1.96 M/UL (4.20-5.40) L Hemoglobin 5.3 G/DL (12.0-16.0) *L Hematocrit 17.8 % (37.0-47.0) L Mean Corpuscular Volume 91 FL (80-99) Mean Corpuscular Hemoglobin 27.0 PG (27.0-31.0) Mean Corpuscular Hemoglobin Concent 29.7 G/DL (32.0-36.0) L Red Cell Distribution Width 17.6 % (11.6-14.8) H Platelet Count 164 K/UL (150-450) Mean Platelet Volume 6.2 FL (6.5-10.1) L Neutrophils (%) (Auto) % (45.0-75.0) Lymphocytes (%) (Auto) % (20.0-45.0) Monocytes (%) (Auto) % (1.0-10.0) Eosinophils (%) (Auto) % (0.0-3.0) Basophils (%) (Auto) % (0.0-2.0) Differential Total Cells Counted 100 Neutrophils % (Manual) 90 % (45-75) H Lymphocytes % (Manual) 5 % (20-45) L Monocytes % (Manual) 3 % (1-10) Eosinophils % (Manual) 1 % (0-3) Basophils % (Manual) 0 % (0-2) Band Neutrophils 1 % (0-8) Platelet Estimate Adequate Platelet Morphology Normal Hypochromasia 3+ Poikilocytosis Anisocytosis 1+ Sodium Level 141 mEQ/L (135-145) Potassium Level 4.4 mEQ/L (3.4-4.9) Chloride Level 104 mEQ/L (98-107) Carbon Dioxide Level 25 mEQ/L (20-30) Anion Gap 12 (5-15) Blood Urea Nitrogen 26 mg/dL (7-23) H Creatinine 0.6 mg/dL (0.5-0.9) Estimat Glomerular Filtration Rate mL/min (>60) Glucose Level 85 mg/dL (74-106) Calcium Level 8.3 mg/dL (8.6-10.2) L Total Bilirubin 0.3 mg/dL (0.0-1.2) Aspartate Amino Transf (AST/SGOT) 13 U/L (5-40) Alanine Aminotransferase (ALT/SGPT) 9 U/L (3-33) Alkaline Phosphatase 62 U/L (35-104) Total Protein 4.7 g/dL (6.6-8.7) L Albumin 2.2 g/dL (3.5-5.2) L Globulin 2.5 g/dL Albumin/Globulin Ratio 0.8 (1.0-2.7) L Triglycerides Level 70 mg/dL (< 150) Cholesterol Level 87 mg/dL (< 200) LDL Cholesterol 26 mg/dL (60-99) L HDL Cholesterol 47 mg/dL (> 60) Cholesterol/HDL Ratio 1.9 (3.3-4.4) L Thyroid Stimulating Hormone (TSH) 2.940 uIU/mL (0.300-4.500) Intake and Output 01/23/17 01/24/17 19:00 07:00 Intake Total 320 ml 120 ml Output Total 400 ml 300 ml Balance -80 ml -180 ml Intake Oral 320 ml 120 ml Output Urine Total 400 ml 300 ml # Bowel Movements 1 Objective General: alert, cooperative, no distress, appears stated age Head: normocephalic, without obvious abnormality, atraumatic Eyes: pale conjunctivae; corneas clear. PERRL, EOM's intact Throat: lips, mucosa, and tongue normal. MMM Neck: supple, symmetrical, trachea midline, and no JVD Lungs: clear to auscultation bilaterally Heart: regular rate and rhythm, S1, S2 normal, no murmur, click, rub or gallop Abdomen: soft, non-tender, non-distended, bowel sounds normal; no masses or organomegaly Extremities: extremities normal, atraumatic, no cyanosis or edema. Right knee swollen and tender Pulses: 2+ and symmetric Skin: skin color, texture, turgor normal; no rashes or lesions Neurologic: grossly normal, no focal deficits Assessment/Plan Problem List: (1) Femoral distal fracture Assessment & Plan: Se orhto note. Non surgical; non weight bearing. Physical therapy eval (2) DVT (deep venous thrombosis) (3) Refusal of blood transfusions as patient is Caodaism (4) Iron deficiency anemia (5) Left hemiparesis (6) CVA (cerebrovascular accident) (7) CHF (congestive heart failure) (8) CAD (coronary artery disease) (9) Diabetes mellitus Assessment & Plan: Cont novolog sliding scale. (10) Hypercholesteremia Assessment & Plan: Cont lipitor (11) Hypertension Assessment & Plan: Cont coreg (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 Status: unchanged DELFIN MARTINEZ January 24, 2017 18:02
[2017-01-24] MEDS: Iron Sucrose 100 MG in NS 55 ML IVPB SCH (21:51)
[2017-01-24] MEDS: Atorvastatin 80mg tab ORAL SCH (21:59)
[2017-01-24] MEDS: Epogen (for non ESRD use) SUBQ SCH (22:00)
--- NOTE | 2017-01-24 22:35 | Consultation ---
Consult Note Consult Note HEMATOLOGY CONSULTATION DATE OF CONSULT: 01/24/17 REQUESTING MD: DELFIN MARTINEZ/ASHLEY CHIEF COMPLAINT: The patient is a 76-year-old female presents with AMS HISTORY OF PRESENT ILLNESS: The patient was admitted to [facility] on 07/30/2016 and in 09/2016 with a syncopal episode and on 11/24 as well and 12/2016. The patient was found to have severe anemia. The patient is a Muslim and has refused transfusions in the past. WAS started on venofer and iron, noted to have a right femur. The patient states history of present illness began several days prior to admission. The patient began increasingly fatigue. The patient also complains of dysuria. The patient denies fever or chills. The patient denies chest pain. She passed out while getting a haircut and was noted to have a depressed hgb on admission. She had a hgb 5.6 and was admitted and received a blood transfusion. PAST MEDICAL HISTORY: 1. Cerebrovascular accident 2. Left hemiparesis. 3. Coronary artery disease status post stent in 2014. 4. Congestive heart failure. 5. Diabetes type 2. 6. Hypertension. 7. Hypercholesterolemia. 8. History of deep venous thrombosis with IVC placement. 9. Pacemaker in situ. PAST SURGICAL HISTORY: 1. Cholecystectomy. 2. Cervical spine fusion. 3. Lumbar spine surgery . 4. Bilateral total knee arthroplasty. 5. Carotid stenting for carotid stenosis. CURRENT MEDS: 1. Aspirin 81 mg one tablet p.o. daily. 2. Lipitor 20 mg one tablet p.o. daily. 3. Carvedilol 3.125 mg one tablet p.o. twice daily. 4. Plavix 75 mg one table p.o. daily. 5. Aricept 5 mg one tablet p.o. daily. 6. Iron sulfate 325 mg one tablet p.o. daily. 7. [place] 5/325 mg one tablet p.o. q.6 hours p.r.n. 8. Losartan 25 mg one tablet p.o. daily. 9. Metformin 500 mg one tablet p.o. twice daily. 10. Zoloft 100 mg one tablet p.o. daily. ALLERGIES: To latex and quinine. SOCIAL HISTORY: The patient is a Muslim. The patient is . The patient denies tobacco or alcohol use. REVIEW OF SYSTEMS: Constitutional: The patient denies weight loss HEENT: The patient denies ear or throat pain. Cardiovascular: The patient denies palpitations or chest pain. Chest: The patient denies wheezes or shortness of breath. Abdomen: The patient denies nausea, vomiting, or constipation. Genitourinary: The patient denies dysuria or increased frequency of urination. Neuromuscular: The patient complains of generalized fatigue. PHYSICAL EXAMINATION: Last 24 Hour Vital Signs Last 24 Hour Vital Signs Date Time Temp Pulse Resp B/P Pulse Ox O2 Delivery O2 Flow Rate FiO2 01/24/17 21:58 112 68/62 01/24/17 19:53 97.9 92 20 108/57 93 Room Air 01/24/17 15:44 98.1 96 21 109/56 98 Room Air 01/24/17 11:54 98.9 100 19 116/59 94 01/24/17 09:00 103 105/56 01/24/17 07:53 98.8 103 20 93/48 98 01/24/17 04:00 97.6 75 18 111/58 96 Room Air 01/24/17 01:18 99.1 01/24/17 00:30 121/63 01/24/17 00:00 98.0 109 18 100/50 96 Room Air GENERAL: The patient is well-developed and well-nourished black female HEENT: Eyes, pupils are equal and responsive to light and accommodation. Extraocular movements intact. NECK: Supple without lymphadenopathy. CHEST: Lungs are clear to auscultation bilaterally without wheezes or rales. CARDIOVASCULAR: Regular rhythm and rate. S1, S2 normal without murmurs, rubs, or gallops. ABDOMEN: Soft, nontender, and nondistended. Positive bowel sounds. No evidence of hsm EXTREMITIES: Negative for clubbing, cyanosis, or or edema. RECTAL: Refused. GENITAL: Refused. NEUROLOGIC: Cranial nerves II through XII grossly intact without focal deficits. The patient's motor strength is 3/5 in the left and 5/5 in the right. DTR 2+ reflexes LABORATORY STUDIES: Laboratory Tests Test 01/23/17 22:40 01/24/17 05:00 Urine Color Yellow Urine Appearance Clear Urine pH 5 (4.5-8.0) Urine Specific [place] 1.015 (1.005-1.035) Urine Protein 1+ (NEGATIVE) H Urine Glucose (UA) Negative (NEGATIVE) Urine Ketones Negative (NEGATIVE) Urine Occult Blood Negative (NEGATIVE) Urine Nitrite Negative (NEGATIVE) Urine Bilirubin Negative (NEGATIVE) Urine Urobilinogen 1 MG/DL (0.0-1.0) H Urine Leukocyte Esterase 1+ (NEGATIVE) H Urine RBC 0-2 /HPF (0 - 2) Urine WBC 2-4 /HPF (0 - 2) Urine Squamous Epithelial Cells Occasional /LPF Urine Bacteria Few /HPF (NONE) White Blood Count 8.8 K/UL (4.8-10.8) Red Blood Count 1.96 M/UL (4.20-5.40) L Hemoglobin 5.3 G/DL (12.0-16.0) *L Hematocrit 17.8 % (37.0-47.0) L Mean Corpuscular Volume 91 FL (80-99) Mean Corpuscular Hemoglobin 27.0 PG (27.0-31.0) Mean Corpuscular Hemoglobin Concent 29.7 G/DL (32.0-36.0) L Red Cell Distribution Width 17.6 % (11.6-14.8) H Platelet Count 164 K/UL (150-450) Mean Platelet Volume 6.2 FL (6.5-10.1) L Neutrophils (%) (Auto) % (45.0-75.0) Lymphocytes (%) (Auto) % (20.0-45.0) Monocytes (%) (Auto) % (1.0-10.0) Eosinophils (%) (Auto) % (0.0-3.0) Basophils (%) (Auto) % (0.0-2.0) Differential Total Cells Counted 100 Neutrophils % (Manual) 90 % (45-75) H Lymphocytes % (Manual) 5 % (20-45) L Monocytes % (Manual) 3 % (1-10) Eosinophils % (Manual) 1 % (0-3) Basophils % (Manual) 0 % (0-2) Band Neutrophils 1 % (0-8) Platelet Estimate Adequate Platelet Morphology Normal Hypochromasia 3+ Poikilocytosis Anisocytosis 1+ Sodium Level 141 mEQ/L (135-145) Potassium Level 4.4 mEQ/L (3.4-4.9) Chloride Level 104 mEQ/L (98-107) Carbon Dioxide Level 25 mEQ/L (20-30) Anion Gap 12 (5-15) Blood Urea Nitrogen 26 mg/dL (7-23) H Creatinine 0.6 mg/dL (0.5-0.9) Estimat Glomerular Filtration Rate mL/min (>60) Glucose Level 85 mg/dL (74-106) Calcium Level 8.3 mg/dL (8.6-10.2) L Total Bilirubin 0.3 mg/dL (0.0-1.2) Aspartate Amino Transf (AST/SGOT) 13 U/L (5-40) Alanine Aminotransferase (ALT/SGPT) 9 U/L (3-33) Alkaline Phosphatase 62 U/L (35-104) Total Protein 4.7 g/dL (6.6-8.7) L Albumin 2.2 g/dL (3.5-5.2) L Globulin 2.5 g/dL Albumin/Globulin Ratio 0.8 (1.0-2.7) L Triglycerides Level 70 mg/dL (< 150) Cholesterol Level 87 mg/dL (< 200) LDL Cholesterol 26 mg/dL (60-99) L HDL Cholesterol 47 mg/dL (> 60) Cholesterol/HDL Ratio 1.9 (3.3-4.4) L Thyroid Stimulating Hormone (TSH) 2.940 uIU/mL (0.300-4.500) Assessment: 1. Severe anemia 2/2 iron deficiency - retic count is high from before, but not sufficiently elevated given degree of anemia, patient begun on epo and iron in light of refusing blood transfusions (Muslim) and may take several days/weeks to improve, however pt refusing today. Patient has been admitted with similar symptoms before. Continues to refuse on blood transfusions. 2. Anemia r/o GI bleed - occult blood positive, rec GI consultation 3. Syncope- 2/2 anemia 4. History of deep venous thrombosis s/p ivc filter of BOTH RIGHT AND LEFT LEG. hx of R dvt as well from before 5. Left hemiplegia. 6. Left Upper extremity swelling 7. Coronary artery disease. 8. Congestive heart failure. 9. Diabetes type 2. 10. Hypertension. 11. Hypercholesterolemia. RECS: -. Intravenous Venofer. The patient is a Muslim. The patient has refused blood transfusions in the past. Hgb >7 goal -. Continue epogen sq -. Anemia w/u has been reviewed -. Have again stressed the importance of blood transfusions, she refuses -. Status post inferior vena cava. HOLD OFF ON ANTICOAGULATION GIVEN ANEMIA -. Venous duplex of r and left legs reviewed -. Appreciate consultation greatly, will continue to follow Dg Fairbanks January 24, 2017 22:35
[2017-01-25] VITALS: BP 116/59
[2017-01-25 04:00] VITALS: BP 109/56
[2017-01-25] MEDS: NovoLOG Insulin Flexpen SUBQ SCH ×4 (06:04→22:10)
[2017-01-25 07:18] LABS: MEAN CORPUSCULAR HEMOGLOBIN 26.1 PG (27.0-31.0); MEAN CORPUSCULAR HGB CONC 29.1 G/DL (32.0-36.0); MEAN CORPUSCULAR VOLUME 90 FL (80-99); MEAN PLATELET VOLUME 6.3 FL (6.5-10.1); PLATELET COUNT 160 K/UL (150-450); RED BLOOD COUNT 1.89 M/UL (4.20-5.40); RED CELL DISTRIBUTION WIDTH 17.3 % (11.6-14.8); WHITE BLOOD COUNT 6.8 K/UL (4.8-10.8)
[2017-01-25 07:39] LABS: ANION GAP 11 (5-15); CALCIUM 7.8 mg/dL (8.6-10.2); CARBON DIOXIDE 25 mEQ/L (20-30); CHLORIDE 107 mEQ/L (98-107); CREATININE 0.5 mg/dL (0.5-0.9); HEMOLYSIS 7; SODIUM 143 mEQ/L (135-145)
[2017-01-25 08:05] VITALS: BP_SYST 119; BP_SYST 142; BP_DIAS 71; BP_DIAS 76
[2017-01-25] MEDS: Ascorbic Acid 500mg tab ORAL SCH ×3 (08:39→17:07)
[2017-01-25] MEDS: Sertraline 100mg tab ORAL SCH (08:39)
[2017-01-25] MEDS: Heparin 5000 units/ml inj SUBQ SCH (08:39)
[2017-01-25] MEDS: Donepezil 5mg Tab ORAL SCH (08:40)
[2017-01-25 11:21] LABS: BAND NEUTROPHILS % (MANUAL) 0 % (0-8); BASOPHILS % (MANUAL) 0 % (0-2); EOSINOPHILS % (MANUAL) 0 % (0-3); LYMPHOCYTES % (MANUAL) 14 % (20-45); NEUTROPHILS % (MANUAL) 80 % (45-75); PLATELET ESTIMATE ADEQUATE; PLATELET MORPHOLOGY NORMAL; TOTAL CELLS COUNTED 100
[2017-01-25 11:22] LABS: ANISOCYTOSIS 1+
[2017-01-25 11:24] LABS: HYPOCHROMASIA 3+
[2017-01-25 11:56] VITALS: BP 143/84
--- NOTE | 2017-01-25 15:44 | Pulmonology Progress Note ---
Assessment/Plan Problems: (1) Hip fracture (2) Anemia (3) Hypertension (4) ICD (implantable cardioverter-defibrillator) in place (5) Patient is Sabianist (6) Diabetes mellitus Assessment/Plan on epogen, folic acid, venofer etc hem evaluation appreciated ortho evaluation reviewed. check h/h pain control dc planning Subjective ROS Limited/Unobtainable: No Constitutional: Reports: no symptoms HEENT: Repors: no symptoms Allergies: Coded Allergies: LATEX (Unverified Allergy, Mild, Rash, 09/03/14) QUININE (Unverified Allergy, Unknown, Rash Hives, 05/23/15) Quinine Sulfate Objective Last 24 Hour Vital Signs Date Time Temp Pulse Resp B/P Pulse Ox O2 Delivery O2 Flow Rate FiO2 01/25/17 11:56 97.7 92 16 143/84 92 Room Air 01/25/17 08:40 88 119/76 01/25/17 08:05 97.7 88 15 119/76 96 Room Air 01/25/17 04:00 97.0 91 20 109/56 92 Room Air 01/25/17 00:00 98.1 102 20 116/59 92 Room Air 01/24/17 21:58 112 68/62 01/24/17 19:53 97.9 92 20 108/57 93 Room Air 01/24/17 15:44 98.1 96 21 109/56 98 Room Air Intake and Output 01/24/17 01/25/17 19:00 07:00 Intake Total 420 ml Output Total 800 ml 200 ml Balance -380 ml -200 ml Intake Oral 420 ml Output Urine Total 800 ml 200 ml # Bowel Movements 1 General Appearance: cachetic HEENT: normocephalic, atraumatic Respiratory/Chest: chest wall non-tender, lungs clear Cardiovascular: normal peripheral pulses, normal rate Abdomen: normal bowel sounds, soft, non tender Genitourinary: normal external genitalia Extremities: no clubbing Neurologic/Psychiatric: display manager II-XII grossly normal Lymphatic: no neck adenopathy Microbiology Date/Time Source Procedure Growth Status 01/23/17 09:45 Nasal Nares MRSA Culture - Final Staphylococcus Aureus - Mrsa Complete 01/23/17 09:45 Rectum VRE Culture - Final NO VANCOMYCIN RESISTANT ENTEROCOCCUS ... Complete Laboratory Tests 01/25/17 06:30: White Blood Count 6.8, Red Blood Count 1.89L, Hemoglobin 4.9*L, Hematocrit 17.0L , Mean Corpuscular Volume 90, Mean Corpuscular Hemoglobin 26.1L, Mean Corpuscular Hemoglobin Concent 29.1L, Red Cell Distribution Width 17.3H, Platelet Count 160, Mean Platelet Volume 6.3L, Neutrophils (%) (Auto) , Lymphocytes (%) (Auto) , Monocytes (%) (Auto) , Eosinophils (%) (Auto) , Basophils (%) (Auto) , Differential Total Cells Counted 100, Neutrophils % ( Manual) 80H, Lymphocytes % (Manual) 14L, Monocytes % (Manual) 6, Eosinophils % ( Manual) 0, Basophils % (Manual) 0, Band Neutrophils 0, Platelet Estimate Adequate, Platelet Morphology Normal, Hypochromasia 3+, Anisocytosis 1+, Sodium Level 143, Potassium Level 4.0, Chloride Level 107, Carbon Dioxide Level 25, Anion Gap 11, Blood Urea Nitrogen 24H, Creatinine 0.5, Estimat Glomerular Filtration Rate , Glucose Level 86, Calcium Level 7.8L Current Medications Medications (Trade) Dose Ordered Sig/Don Route PRN Reason Start Time Stop Time Status Last Admin Dose Admin Acetaminophen (Tylenol) 650 mg Q4H PRN ORAL T>100.5 01/23/17 11:45 02/22/17 11:44 Al Hydroxide/Mg Hydroxide (Mylanta II) 30 ml Q6H PRN ORAL dyspepsia 01/23/17 11:45 02/22/17 11:44 Alprazolam (Xanax) 0.25 mg Q6H PRN ORAL For Anxiety 01/23/17 11:45 01/30/17 11:44 Ascorbic Acid (Vitamin C) 500 mg THREE TIMES A DAY ORAL 01/23/17 13:00 02/22/17 12:59 01/25/17 12:48 Atorvastatin Calcium (Lipitor) 80 mg BEDTIME ORAL 01/23/17 21:00 02/22/17 20:59 01/24/17 21:59 Carvedilol (Coreg) 3.125 mg Q12HR ORAL 01/23/17 21:00 02/22/17 20:59 01/25/17 08:40 Dextrose (Dextrose 50%) STAT PRN IV Hypoglycemia 01/23/17 11:45 02/22/17 11:44 Donepezil HCl (Aricept) 5 mg DAILY ORAL 01/24/17 09:00 02/23/17 08:59 01/25/17 08:40 Epoetin Barak (Procrit (for non ESRD use)) 10,000 units Q48H SUBQ 01/24/17 21:00 02/23/17 20:59 01/24/17 22:00 Folic Acid (Folate) 1 mg DAILY ORAL 01/25/17 09:00 02/24/17 08:59 01/25/17 08:40 Insulin Aspart (NovoLOG) BEFORE MEALS AND HS SUBQ 01/23/17 16:30 02/22/17 16:29 Iron Sucrose/ Sodium Chloride (Venofer/Sodium Chloride) 60 ml @ 240 mls/hr BEDTIME IVPB 01/24/17 21:00 01/28/17 21:14 01/24/17 21:51 Lactulose 20 gm 20 gm Q8H PRN ORAL CONSTIPATION 01/23/17 11:45 02/22/17 11:44 Lorazepam (Ativan 2mg/ml 1ml) 0.5 mg Q4H PRN IV For Anxiety 01/23/17 11:45 01/30/17 11:44 Mirtazapine (Remeron) 15 mg BEDTIME ORAL 01/23/17 21:00 02/22/17 20:59 01/24/17 21:59 Morphine Sulfate (Morphine Sulfate) 2 mg Q4H PRN IVP PAIN 4-10 01/23/17 11:45 01/30/17 11:44 01/24/17 00:48 Ondansetron HCl (Zofran) 4 mg Q6H PRN IVP Nausea & Vomiting 01/23/17 11:45 02/22/17 11:44 Polyethylene Glycol (Miralax) 17 gm HSPRN PRN ORAL Constipation 01/23/17 21:00 02/22/17 20:59 Sertraline HCl (Zoloft) 100 mg DAILY ORAL 01/24/17 09:00 02/23/17 08:59 01/25/17 08:39 Zolpidem Tartrate (Ambien) 5 mg HSPRN PRN ORAL Insomnia 01/23/17 21:00 02/22/17 20:59 MARLENY TURPIN January 25, 2017 15:44
[2017-01-25 15:56] VITALS: BP 139/58
--- NOTE | 2017-01-25 16:17 | General Progress Note ---
Assessment/Plan Assessment/Plan Assessment: 1. Severe anemia 2/2 iron deficiency - retic count is high from before, but not sufficiently elevated given degree of anemia, patient begun on epo and iron in light of refusing blood transfusions ([employer]) and may take several days/weeks to improve, however pt refusing today. Patient has been admitted with similar symptoms before. Continues to refuse on blood transfusions. 2. Anemia r/o GI bleed - occult blood positive, rec GI consultation 3. Syncope - 2/2 anemia 4. History of deep venous thrombosis s/p ivc filter of BOTH RIGHT AND LEFT LEG. hx of R dvt as well from before 5. Left hemiplegia. 6. Left Upper extremity swelling 7. Coronary artery disease. 8. Congestive heart failure. 9. Diabetes type 2. 10. Hypertension. 11. Hypercholesterolemia. RECS: -. Intravenous Venofer. The patient is a [employer]. The patient has refused blood transfusions in the past. Hgb >7 goal -. Continue epogen sq -. Anemia w/u has reviewed -. Have again stressed the importance of blood transfusions, she refuses again -. Status post inferior vena cava. HOLD OFF ON ANTICOAGULATION GIVEN ANEMIA -. Venous duplex of r and left legs reviewed -. Appreciate consultation greatly, will continue to follow Subjective Constitutional: Reports: no symptoms HEENT: Reports: no symptoms Cardiovascular: Reports: no symptoms Respiratory: Reports: no symptoms Gastrointestinal/Abdominal: Reports: no symptoms Genitourinary: Reports: no symptoms Neurologic/Psychiatric: Reports: no symptoms Endocrine: Reports: unexplained weight gain Hematologic/Lymphatic: Reports: anemia Allergies: Coded Allergies: LATEX (Unverified Allergy, Mild, Rash, 09/03/14) QUININE (Unverified Allergy, Unknown, Rash Hives, 05/23/15) Quinine Sulfate Subjective stable, no events to report, still refusing blood products, explained risks of this extensively, may result in Objective Last 24 Hour Vital Signs Date Time Temp Pulse Resp B/P Pulse Ox O2 Delivery O2 Flow Rate FiO2 01/25/17 15:56 97.3 80 15 139/58 94 Room Air 01/25/17 11:56 97.7 92 16 143/84 92 Room Air 01/25/17 08:40 88 119/76 01/25/17 08:05 97.7 88 15 119/76 96 Room Air 01/25/17 04:00 97.0 91 20 109/56 92 Room Air 01/25/17 00:00 98.1 102 20 116/59 92 Room Air 01/24/17 21:58 112 68/62 01/24/17 19:53 97.9 92 20 108/57 93 Room Air Intake and Output 01/24/17 01/25/17 19:00 07:00 Intake Total 420 ml Output Total 800 ml 200 ml Balance -380 ml -200 ml Intake Oral 420 ml Output Urine Total 800 ml 200 ml # Bowel Movements 1 Laboratory Tests 01/25/17 06:30: White Blood Count 6.8, Red Blood Count 1.89L, Hemoglobin 4.9*L, Hematocrit 17.0L , Mean Corpuscular Volume 90, Mean Corpuscular Hemoglobin 26.1L, Mean Corpuscular Hemoglobin Concent 29.1L, Red Cell Distribution Width 17.3H, Platelet Count 160, Mean Platelet Volume 6.3L, Neutrophils (%) (Auto) , Lymphocytes (%) (Auto) , Monocytes (%) (Auto) , Eosinophils (%) (Auto) , Basophils (%) (Auto) , Differential Total Cells Counted 100, Neutrophils % ( Manual) 80H, Lymphocytes % (Manual) 14L, Monocytes % (Manual) 6, Eosinophils % ( Manual) 0, Basophils % (Manual) 0, Band Neutrophils 0, Platelet Estimate Adequate, Platelet Morphology Normal, Hypochromasia 3+, Anisocytosis 1+, Sodium Level 143, Potassium Level 4.0, Chloride Level 107, Carbon Dioxide Level 25, Anion Gap 11, Blood Urea Nitrogen 24H, Creatinine 0.5, Estimat Glomerular Filtration Rate , Glucose Level 86, Calcium Level 7.8L Height (Feet): 5 Height (Inches): 1.00 Weight (Pounds): 138 General Appearance: no apparent distress EENT: TMs normal Neck: normal alignment Cardiovascular: normal rate Respiratory/Chest: lungs clear Abdomen: no mass Extremities: normal inspection Edema: 1+ Leg (L), 1+ Leg (R) Edema: trace edema Neurologic: no motor/sensory deficits Skin: warm/dry Dg Fairbanks January 25, 2017 16:17
--- NOTE | 2017-01-25 17:30 | Internal Med Progress Note ---
Subjective Date of Service: January 25, 2017 Physician Name Delfin Martinez Attending Physician Lobito Jones MD Current Medications Medications (Trade) Dose Ordered Sig/Don Route PRN Reason Start Time Stop Time Status Last Admin Dose Admin Acetaminophen (Tylenol) 650 mg Q4H PRN ORAL T>100.5 01/23/17 11:45 02/22/17 11:44 Al Hydroxide/Mg Hydroxide (Mylanta II) 30 ml Q6H PRN ORAL dyspepsia 01/23/17 11:45 02/22/17 11:44 Alprazolam (Xanax) 0.25 mg Q6H PRN ORAL For Anxiety 01/23/17 11:45 01/30/17 11:44 Ascorbic Acid (Vitamin C) 500 mg THREE TIMES A DAY ORAL 01/23/17 13:00 02/22/17 12:59 01/25/17 17:07 Atorvastatin Calcium (Lipitor) 80 mg BEDTIME ORAL 01/23/17 21:00 02/22/17 20:59 01/24/17 21:59 Carvedilol (Coreg) 3.125 mg Q12HR ORAL 01/23/17 21:00 02/22/17 20:59 01/25/17 08:40 Dextrose (Dextrose 50%) STAT PRN IV Hypoglycemia 01/23/17 11:45 02/22/17 11:44 Donepezil HCl (Aricept) 5 mg DAILY ORAL 01/24/17 09:00 02/23/17 08:59 01/25/17 08:40 Epoetin Barak (Procrit (for non ESRD use)) 10,000 units Q48H SUBQ 01/24/17 21:00 02/23/17 20:59 01/24/17 22:00 Folic Acid (Folate) 1 mg DAILY ORAL 01/25/17 09:00 02/24/17 08:59 01/25/17 08:40 Insulin Aspart (NovoLOG) BEFORE MEALS AND HS SUBQ 01/23/17 16:30 02/22/17 16:29 Iron Sucrose/ Sodium Chloride (Venofer/Sodium Chloride) 60 ml @ 240 mls/hr BEDTIME IVPB 01/24/17 21:00 01/28/17 21:14 01/24/17 21:51 Lactulose 20 gm 20 gm Q8H PRN ORAL CONSTIPATION 01/23/17 11:45 6/15/17 11:44 Lorazepam (Ativan 2mg/ml 1ml) 0.5 mg Q4H PRN IV For Anxiety 01/23/17 11:45 01/30/17 11:44 Mirtazapine (Remeron) 15 mg BEDTIME ORAL 01/23/17 21:00 02/22/17 20:59 01/24/17 21:59 Morphine Sulfate (Morphine Sulfate) 2 mg Q4H PRN IVP PAIN 4-10 01/23/17 11:45 01/30/17 11:44 01/24/17 00:48 Ondansetron HCl (Zofran) 4 mg Q6H PRN IVP Nausea & Vomiting 01/23/17 11:45 02/22/17 11:44 Polyethylene Glycol (Miralax) 17 gm HSPRN PRN ORAL Constipation 01/23/17 21:00 02/22/17 20:59 Sertraline HCl (Zoloft) 100 mg DAILY ORAL 01/24/17 09:00 02/23/17 08:59 01/25/17 08:39 Zolpidem Tartrate (Ambien) 5 mg HSPRN PRN ORAL Insomnia 01/23/17 21:00 02/22/17 20:59 Allergies: Coded Allergies: LATEX (Unverified Allergy, Mild, Rash, 09/03/14) QUININE (Unverified Allergy, Unknown, Rash Hives, 05/23/15) Quinine Sulfate ROS Limited/Unobtainable: No Constitutional: Reports: no symptoms HEENT: Reports: no symptoms Cardiovascular: Reports: no symptoms Respiratory: Reports: no symptoms Gastrointestinal/Abdominal: Reports: no symptoms Genitourinary: Reports: no symptoms Neurologic/Psychiatric: Reports: no symptoms Subjective 76 YO F admitted with leg pain. Now fracture distal right femur. Cover for Kaylynn Jones. Objective Last Vital Signs Date Time Temp Pulse Resp B/P Pulse Ox O2 Delivery O2 Flow Rate FiO2 01/25/17 15:56 97.3 80 15 139/58 94 Room Air Laboratory Tests Test 01/25/17 06:30 White Blood Count 6.8 K/UL (4.8-10.8) Red Blood Count 1.89 M/UL (4.20-5.40) L Hemoglobin 4.9 G/DL (12.0-16.0) *L Hematocrit 17.0 % (37.0-47.0) L Mean Corpuscular Volume 90 FL (80-99) Mean Corpuscular Hemoglobin 26.1 PG (27.0-31.0) L Mean Corpuscular Hemoglobin Concent 29.1 G/DL (32.0-36.0) L Red Cell Distribution Width 17.3 % (11.6-14.8) H Platelet Count 160 K/UL (150-450) Mean Platelet Volume 6.3 FL (6.5-10.1) L Neutrophils (%) (Auto) % (45.0-75.0) Lymphocytes (%) (Auto) % (20.0-45.0) Monocytes (%) (Auto) % (1.0-10.0) Eosinophils (%) (Auto) % (0.0-3.0) Basophils (%) (Auto) % (0.0-2.0) Differential Total Cells Counted 100 Neutrophils % (Manual) 80 % (45-75) H Lymphocytes % (Manual) 14 % (20-45) L Monocytes % (Manual) 6 % (1-10) Eosinophils % (Manual) 0 % (0-3) Basophils % (Manual) 0 % (0-2) Band Neutrophils 0 % (0-8) Platelet Estimate Adequate Platelet Morphology Normal Hypochromasia 3+ Anisocytosis 1+ Sodium Level 143 mEQ/L (135-145) Potassium Level 4.0 mEQ/L (3.4-4.9) Chloride Level 107 mEQ/L (98-107) Carbon Dioxide Level 25 mEQ/L (20-30) Anion Gap 11 (5-15) Blood Urea Nitrogen 24 mg/dL (7-23) H Creatinine 0.5 mg/dL (0.5-0.9) Estimat Glomerular Filtration Rate mL/min (>60) Glucose Level 86 mg/dL (74-106) Calcium Level 7.8 mg/dL (8.6-10.2) L Microbiology Date/Time Source Procedure Growth Status 01/23/17 09:45 Nasal Nares MRSA Culture - Final Staphylococcus Aureus - Mrsa Complete 01/23/17 09:45 Rectum VRE Culture - Final NO VANCOMYCIN RESISTANT ENTEROCOCCUS ... Complete Intake and Output 01/24/17 01/25/17 19:00 07:00 Intake Total 420 ml Output Total 800 ml 200 ml Balance -380 ml -200 ml Intake Oral 420 ml Output Urine Total 800 ml 200 ml # Bowel Movements 1 Objective General: alert, cooperative, no distress, appears stated age Head: normocephalic, without obvious abnormality, atraumatic Eyes: pale conjunctivae; corneas clear. PERRL, EOM's intact Throat: lips, mucosa, and tongue normal. MMM Neck: supple, symmetrical, trachea midline, and no JVD Lungs: clear to auscultation bilaterally Heart: regular rate and rhythm, S1, S2 normal, no murmur, click, rub or gallop Abdomen: soft, non-tender, non-distended, bowel sounds normal; no masses or organomegaly Extremities: extremities normal, atraumatic, no cyanosis or edema. Right knee swollen and tender Pulses: 2+ and symmetric Skin: skin color, texture, turgor normal; no rashes or lesions Neurologic: grossly normal, no focal deficits Assessment/Plan Problem List: (1) Femoral distal fracture Assessment & Plan: Se orhto note. Non surgical; non weight bearing. Physical therapy eval (2) DVT (deep venous thrombosis) (3) Refusal of blood transfusions as patient is Jainism (4) Iron deficiency anemia (5) Left hemiparesis (6) CVA (cerebrovascular accident) (7) CHF (congestive heart failure) (8) CAD (coronary artery disease) (9) Diabetes mellitus Assessment & Plan: Cont novolog sliding scale. 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 Refused transfusion. See heme note. Cont epogen and IV venofer Status: not improved DELFIN MARTINEZ January 25, 2017 17:30
--- NOTE | 2017-01-25 17:40 | Cardiology Report ---
APPROVED REPORT EKG Measurement Heart [id number] CT [id number] Normal sinus rhythm Left axis deviation Septal infarct, age undetermined Abnormal ECG
--- NOTE | 2017-01-25 19:31 | Progress Note ---
DATE: 01/25/2017 SUBJECTIVE: The patient had a CT scan of her right knee. Otherwise, she is doing relatively well. . The effusion along the right knee posterior calf is normal. CT scan of the right knee show what appears to be periprosthetic fracture along the medial condyle extension from supracondylar area around a well-fixed implant. ASSESSMENT: Right periprosthetic femur fracture. DISCUSSION: At this point, given her age and comorbidities and the fact that she does not ambulate well, I recommended conservative treatment. Given the fracture pattern, it is unlikely that this will be ____ that can be fixed, ultimately this requires revision of femoral component or long stem implant risks involved with it given her limited ambulation status. At this point, we are just going to leave it alone and let it heal. In the event if it does not heal, then she may ultimately has an option to do surgery or leave alone at this point, after indicating findings with the patient as well as family. All questions were addressed. Jose Sinha M.D. DR: Victor Manuel JOB#: [id number] CC:
[2017-01-25] MEDS: Morphine Sulfate 2mg/ml Inj IVP PRN (19:59)
[2017-01-25 20:00] VITALS: BP 151/63
[2017-01-25] MEDS: Iron Sucrose 100 MG in NS 55 ML IVPB SCH (21:42)
[2017-01-25] MEDS: Atorvastatin 80mg tab ORAL SCH (21:43)
[2017-01-26] VITALS: BP 94/37
[2017-01-26] MEDS: Morphine Sulfate 2mg/ml Inj IVP PRN ×2 (03:36→18:20)
[2017-01-26 04:00] VITALS: BP 132/69
[2017-01-26 05:34] LABS: MEAN CORPUSCULAR HEMOGLOBIN 26.3 PG (27.0-31.0); MEAN CORPUSCULAR HGB CONC 29.5 G/DL (32.0-36.0); MEAN CORPUSCULAR VOLUME 89 FL (80-99); MEAN PLATELET VOLUME 5.9 FL (6.5-10.1); PLATELET COUNT 195 K/UL (150-450); RED CELL DISTRIBUTION WIDTH 17.6 % (11.6-14.8); WHITE BLOOD COUNT 8.3 K/UL (4.8-10.8)
[2017-01-26 06:02] LABS: ANION GAP 13 (5-15); CARBON DIOXIDE 24 mEQ/L (20-30); CHLORIDE 102 mEQ/L (98-107); CREATININE 0.5 mg/dL (0.5-0.9); HEMOLYSIS 2; POTASSIUM 3.7 mEQ/L (3.4-4.9); SODIUM 139 mEQ/L (135-145)
[2017-01-26] MEDS: NovoLOG Insulin Flexpen SUBQ SCH ×4 (06:20→21:00)
[2017-01-26 07:35] VITALS: BP 125/63
--- NOTE | 2017-01-26 08:01 | Pulmonology Progress Note ---
Assessment/Plan Assessment/Plan ASSESSMENT s/p fall R periprosthetic femoral fracture anemia Jehovah witness, refusing transfusion R knee pain DM Hx of CVA with L hemiparesis AICD dementia CAD with hx of stents Hx of CHF Hx of acute DVT persistent mild to moderate dysphagia PLAN OF CARE MS floor ortho follows not a surgical candidate given age and limited mobility in the past conservative management as p[er ortho recommendations NWB status pain management R knee immobilizer w/chair bound heme follows, refusing transfusion ( Jehovah witness) , on EPO and Venofer, and folate HH started to trend up ; ferritin high stool OB + ? GI eval per PMD discretion s/p IVC filter Venous Duplex BLE on this admission negative per heme hold a/coagulation for now given severe anemia BP management with BB, optimize as needed BS management with SS of insulin continue statin, lipid panel stable no clinical evidence of CHF exacerbation bowel regimen fall precautions swallow eval done diet as per ST recommendations reflux precautions, aspiration precautions case discussed and evaluated by supervising physician Subjective Allergies: Coded Allergies: LATEX (Unverified Allergy, Mild, Rash, 09/03/14) QUININE (Unverified Allergy, Unknown, Rash Hives, 05/23/15) Quinine Sulfate Subjective denies SOB, chest pain, on RA sat stable HH slightly up but still low Objective Last 24 Hour Vital Signs Date Time Temp Pulse Resp B/P Pulse Ox O2 Delivery O2 Flow Rate FiO2 01/26/17 07:35 97.7 85 16 125/63 95 Room Air 01/26/17 04:00 97.9 94 20 132/69 92 Room Air 01/26/17 00:00 97.7 89 20 94/37 97 Room Air 01/25/17 21:43 97 151/63 01/25/17 20:00 97.5 97 20 151/63 96 Room Air 01/25/17 15:56 97.3 80 15 139/58 94 Room Air 01/25/17 11:56 97.7 92 16 143/84 92 Room Air 01/25/17 08:40 88 119/76 01/25/17 08:05 97.7 88 15 119/76 96 Room Air Intake and Output 01/25/17 01/26/17 19:00 07:00 Intake Total 400 ml 490 ml Output Total 200 ml 200 ml Balance 200 ml 290 ml Intake Oral 400 ml 250 ml IV Total 240 ml Output Urine Total 200 ml 200 ml # Bowel Movements 1 2 General Appearance: no acute distress, other - awake, alert, responsive female HEENT: normocephalic, atraumatic, anicteric Respiratory/Chest: lungs clear, no respiratory distress, no accessory muscle use, other - L chest AICD Cardiovascular: normal peripheral pulses, normal rate, no JVD, other - RUE PICC intact Abdomen: normal bowel sounds, soft, non tender Genitourinary: normal external genitalia Extremities: no edema, pedal pulses normal Neurologic/Psychiatric: abnormal gait, alert, responsive Musculoskeletal: atrophy - BLE Microbiology Date/Time Source Procedure Growth Status 01/23/17 09:45 Nasal Nares MRSA Culture - Final Staphylococcus Aureus - Mrsa Complete 01/23/17 09:45 Rectum VRE Culture - Final NO VANCOMYCIN RESISTANT ENTEROCOCCUS ... Complete Laboratory Tests 01/26/17 05:08: White Blood Count 8.3, Red Blood Count 2.10L, Hemoglobin 5.5*L, Hematocrit 18.7L , Mean Corpuscular Volume 89, Mean Corpuscular Hemoglobin 26.3L, Mean Corpuscular Hemoglobin Concent 29.5L, Red Cell Distribution Width 17.6H, Platelet Count 195, Mean Platelet Volume 5.9L, Neutrophils (%) (Auto) , Lymphocytes (%) (Auto) , Monocytes (%) (Auto) , Eosinophils (%) (Auto) , Basophils (%) (Auto) , Neutrophils % (Manual) [Pending], Lymphocytes % (Manual) [Pending], Platelet Estimate [Pending], Platelet Morphology [Pending], Sodium Level 139, Potassium Level 3.7, Chloride Level 102, Carbon Dioxide Level 24, Anion Gap 13, Blood Urea Nitrogen 20, Creatinine 0.5, Estimat Glomerular Filtration Rate , Glucose Level 83, Calcium Level 8.0L, Ferritin 283H Current Medications Medications (Trade) Dose Ordered Sig/Don Route PRN Reason Start Time Stop Time Status Last Admin Dose Admin Acetaminophen (Tylenol) 650 mg Q4H PRN ORAL T>100.5 01/23/17 11:45 02/22/17 11:44 Al Hydroxide/Mg Hydroxide (Mylanta II) 30 ml Q6H PRN ORAL dyspepsia 01/23/17 11:45 02/22/17 11:44 Alprazolam (Xanax) 0.25 mg Q6H PRN ORAL For Anxiety 01/23/17 11:45 01/30/17 11:44 Ascorbic Acid (Vitamin C) 500 mg THREE TIMES A DAY ORAL 01/23/17 13:00 02/22/17 12:59 01/25/17 17:07 Atorvastatin Calcium (Lipitor) 80 mg BEDTIME ORAL 01/23/17 21:00 02/22/17 20:59 01/25/17 21:43 Carvedilol (Coreg) 3.125 mg Q12HR ORAL 01/23/17 21:00 02/22/17 20:59 01/25/17 21:43 Dextrose (Dextrose 50%) STAT PRN IV Hypoglycemia 01/23/17 11:45 02/22/17 11:44 Donepezil HCl (Aricept) 5 mg DAILY ORAL 01/24/17 09:00 02/23/17 08:59 01/25/17 08:40 Epoetin Barak (Procrit (for non ESRD use)) 10,000 units Q48H SUBQ 01/24/17 21:00 02/23/17 20:59 01/24/17 22:00 Folic Acid (Folate) 1 mg DAILY ORAL 01/25/17 09:00 02/24/17 08:59 01/25/17 08:40 Insulin Aspart (NovoLOG) BEFORE MEALS AND HS SUBQ 01/23/17 16:30 02/22/17 16:29 01/25/17 22:10 Iron Sucrose/ Sodium Chloride (Venofer/Sodium Chloride) 60 ml @ 240 mls/hr BEDTIME IVPB 01/24/17 21:00 01/28/17 21:14 01/25/17 21:42 Lactulose 20 gm 20 gm Q8H PRN ORAL CONSTIPATION 01/23/17 11:45 02/22/17 11:44 Lorazepam (Ativan 2mg/ml 1ml) 0.5 mg Q4H PRN IV For Anxiety 01/23/17 11:45 01/30/17 11:44 Mirtazapine (Remeron) 15 mg BEDTIME ORAL 01/23/17 21:00 02/22/17 20:59 01/25/17 21:43 Morphine Sulfate (Morphine Sulfate) 2 mg Q4H PRN IVP PAIN 4-10 01/23/17 11:45 01/30/17 11:44 01/26/17 03:36 Ondansetron HCl (Zofran) 4 mg Q6H PRN IVP Nausea & Vomiting 01/23/17 11:45 02/22/17 11:44 Polyethylene Glycol (Miralax) 17 gm HSPRN PRN ORAL Constipation 01/23/17 21:00 02/22/17 20:59 Sertraline HCl (Zoloft) 100 mg DAILY ORAL 01/24/17 09:00 02/23/17 08:59 01/25/17 08:39 Zolpidem Tartrate (Ambien) 5 mg HSPRN PRN ORAL Insomnia 01/23/17 21:00 02/22/17 20:59 Nnamdi CarolinaFrench HospitalNohemi V[facility]quez NP January 26, 2017 08:01
[2017-01-26] MEDS: Ascorbic Acid 500mg tab ORAL SCH ×3 (08:33→17:10)
[2017-01-26] MEDS: Donepezil 5mg Tab ORAL SCH (08:33)
[2017-01-26] MEDS: Sertraline 100mg tab ORAL SCH (08:33)
[2017-01-26 10:25] LABS: ANISOCYTOSIS 2+; BAND NEUTROPHILS % (MANUAL) 1 % (0-8); BASOPHILS % (MANUAL) 0 % (0-2); EOSINOPHILS % (MANUAL) 0 % (0-3); HYPOCHROMASIA 2+; LYMPHOCYTES % (MANUAL) 12 % (20-45); NEUTROPHILS % (MANUAL) 80 % (45-75); PLATELET ESTIMATE ADEQUATE; PLATELET MORPHOLOGY NORMAL; TOTAL CELLS COUNTED 100
[2017-01-26 11:31] VITALS: BP 137/60
[2017-01-26] MEDS ORDERED: NS 550ML IV ONE (15:25)
[2017-01-26] MEDS ORDERED: NS 275ml ONE (15:25)
[2017-01-26 16:06] VITALS: BP 149/65
--- NOTE | 2017-01-26 18:22 | General Progress Note ---
Assessment/Plan Assessment/Plan Assessment: 1. Severe anemia 2/2 iron deficiency - retic count is high from before, but not sufficiently elevated given degree of anemia, patient begun on epo and iron in light of refusing blood transfusions ([employer]) and may take several days/weeks to improve, however pt refusing today. Patient has been admitted with similar symptoms before. Continues to refuse on blood transfusions. 2. Anemia r/o GI bleed - occult blood positive, rec GI consultation 3. Syncope - 2/2 anemia 4. History of deep venous thrombosis s/p ivc filter of BOTH RIGHT AND LEFT LEG. hx of R dvt as well from before 5. Left hemiplegia. 6. Left Upper extremity swelling 7. Coronary artery disease. 8. Congestive heart failure. 9. Diabetes type 2. 10. Hypertension. 11. Hypercholesterolemia. RECS: -. Intravenous Venofer. The patient is a [employer]. The patient has refused blood transfusions in the past. Hgb >7 goal -. Continue epogen sq -. Anemia w/u has reviewed -. Have again stressed the importance of blood transfusions, she refuses again -. Status post inferior vena cava. HOLD OFF ON ANTICOAGULATION GIVEN ANEMIA -. Venous duplex of r and left legs reviewed -. Appreciate consultation greatly, will continue to follow Subjective Constitutional: Reports: no symptoms HEENT: Reports: no symptoms Cardiovascular: Reports: no symptoms Respiratory: Reports: no symptoms Gastrointestinal/Abdominal: Reports: no symptoms Genitourinary: Reports: no symptoms Neurologic/Psychiatric: Reports: no symptoms Hematologic/Lymphatic: Reports: anemia Allergies: Coded Allergies: LATEX (Unverified Allergy, Mild, Rash, 09/03/14) QUININE (Unverified Allergy, Unknown, Rash Hives, 05/23/15) Quinine Sulfate Subjective stable, no events to report, still refusing blood products, risks explained, NAD Objective Last 24 Hour Vital Signs Date Time Temp Pulse Resp B/P Pulse Ox O2 Delivery O2 Flow Rate FiO2 01/26/17 16:06 98.2 78 15 149/65 97 Room Air 01/26/17 11:31 97.7 76 14 137/60 94 Room Air 01/26/17 08:34 85 125/63 01/26/17 07:35 97.7 85 16 125/63 95 Room Air 01/26/17 04:00 97.9 94 20 132/69 92 Room Air 01/26/17 00:00 97.7 89 20 94/37 97 Room Air 01/25/17 21:43 97 151/63 01/25/17 20:00 97.5 97 20 151/63 96 Room Air Intake and Output 01/25/17 01/26/17 19:00 07:00 Intake Total 400 ml 490 ml Output Total 200 ml 200 ml Balance 200 ml 290 ml Intake Oral 400 ml 250 ml IV Total 240 ml Output Urine Total 200 ml 200 ml # Bowel Movements 1 2 Laboratory Tests 01/26/17 05:08: White Blood Count 8.3, Red Blood Count 2.10L, Hemoglobin 5.5*L, Hematocrit 18.7L , Mean Corpuscular Volume 89, Mean Corpuscular Hemoglobin 26.3L, Mean Corpuscular Hemoglobin Concent 29.5L, Red Cell Distribution Width 17.6H, Platelet Count 195, Mean Platelet Volume 5.9L, Neutrophils (%) (Auto) , Lymphocytes (%) (Auto) , Monocytes (%) (Auto) , Eosinophils (%) (Auto) , Basophils (%) (Auto) , Differential Total Cells Counted 100, Neutrophils % ( Manual) 80H, Lymphocytes % (Manual) 12L, Monocytes % (Manual) 7, Eosinophils % ( Manual) 0, Basophils % (Manual) 0, Band Neutrophils 1, Platelet Estimate Adequate, Platelet Morphology Normal, Hypochromasia 2+, Anisocytosis 2+, Sodium Level 139, Potassium Level 3.7, Chloride Level 102, Carbon Dioxide Level 24, Anion Gap 13, Blood Urea Nitrogen 20, Creatinine 0.5, Estimat Glomerular Filtration Rate , Glucose Level 83, Calcium Level 8.0L, Ferritin 283H Height (Feet): 5 Height (Inches): 1.00 Weight (Pounds): 138 General Appearance: lethargic EENT: PERRL/EOMI Respiratory/Chest: chest wall non-tender Abdomen: normal bowel sounds Extremities: non-tender Edema: no edema noted Leg (L), no edema noted Leg (R) 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
--- NOTE | 2017-01-26 18:56 | Internal Med Progress Note ---
Subjective Date of Service: January 26, 2017 Physician Name Delfin Martinez Attending Physician Lobito Jones MD Current Medications Medications (Trade) Dose Ordered Sig/Don Route PRN Reason Start Time Stop Time Status Last Admin Dose Admin Acetaminophen (Tylenol) 650 mg Q4H PRN ORAL T>100.5 01/23/17 11:45 02/22/17 11:44 Al Hydroxide/Mg Hydroxide (Mylanta II) 30 ml Q6H PRN ORAL dyspepsia 01/23/17 11:45 02/22/17 11:44 Alprazolam (Xanax) 0.25 mg Q6H PRN ORAL For Anxiety 01/23/17 11:45 01/30/17 11:44 Ascorbic Acid (Vitamin C) 500 mg THREE TIMES A DAY ORAL 01/23/17 13:00 02/22/17 12:59 01/26/17 17:10 Atorvastatin Calcium (Lipitor) 80 mg BEDTIME ORAL 01/23/17 21:00 02/22/17 20:59 01/25/17 21:43 Carvedilol (Coreg) 3.125 mg Q12HR ORAL 01/23/17 21:00 02/22/17 20:59 01/26/17 08:34 Dextrose (Dextrose 50%) STAT PRN IV Hypoglycemia 01/23/17 11:45 02/22/17 11:44 Donepezil HCl (Aricept) 5 mg DAILY ORAL 01/24/17 09:00 02/23/17 08:59 01/26/17 08:33 Epoetin Barak (Procrit (for non ESRD use)) 10,000 units Q48H SUBQ 01/24/17 21:00 02/23/17 20:59 01/24/17 22:00 Folic Acid (Folate) 1 mg DAILY ORAL 01/25/17 09:00 02/24/17 08:59 01/26/17 08:33 Insulin Aspart (NovoLOG) BEFORE MEALS AND HS SUBQ 01/23/17 16:30 02/22/17 16:29 01/25/17 22:10 Iron Sucrose/ Sodium Chloride (Venofer/Sodium Chloride) 60 ml @ 240 mls/hr BEDTIME IVPB 01/24/17 21:00 01/28/17 21:14 01/25/17 21:42 Lactulose 20 gm 20 gm Q8H PRN ORAL CONSTIPATION 01/23/17 11:45 02/22/17 11:44 Lorazepam (Ativan 2mg/ml 1ml) 0.5 mg Q4H PRN IV For Anxiety 01/23/17 11:45 01/30/17 11:44 Mirtazapine (Remeron) 15 mg BEDTIME ORAL 01/23/17 21:00 02/22/17 20:59 01/25/17 21:43 Morphine Sulfate (Morphine Sulfate) 2 mg Q4H PRN IVP PAIN 4-10 01/23/17 11:45 01/30/17 11:44 01/26/17 18:20 Ondansetron HCl (Zofran) 4 mg Q6H PRN IVP Nausea & Vomiting 01/23/17 11:45 02/22/17 11:44 Polyethylene Glycol (Miralax) 17 gm HSPRN PRN ORAL Constipation 01/23/17 21:00 02/22/17 20:59 Sertraline HCl (Zoloft) 100 mg DAILY ORAL 01/24/17 09:00 02/23/17 08:59 01/26/17 08:33 Zolpidem Tartrate (Ambien) 5 mg HSPRN PRN ORAL Insomnia 01/23/17 21:00 02/22/17 20:59 Allergies: Coded Allergies: LATEX (Unverified Allergy, Mild, Rash, 09/03/14) QUININE (Unverified Allergy, Unknown, Rash Hives, 05/23/15) Quinine Sulfate ROS Limited/Unobtainable: No Constitutional: Reports: no symptoms HEENT: Reports: no symptoms Cardiovascular: Reports: no symptoms Respiratory: Reports: no symptoms Gastrointestinal/Abdominal: Reports: no symptoms Genitourinary: Reports: no symptoms Neurologic/Psychiatric: Reports: no symptoms Subjective 76 YO F admitted with leg pain. Now fracture distal right femur. Cover for Int Madan-Dr Jones. Objective Last Vital Signs Date Time Temp Pulse Resp B/P Pulse Ox O2 Delivery O2 Flow Rate FiO2 01/26/17 16:06 98.2 78 15 149/65 97 Room Air Laboratory Tests Test 01/26/17 05:08 White Blood Count 8.3 K/UL (4.8-10.8) Red Blood Count 2.10 M/UL (4.20-5.40) L Hemoglobin 5.5 G/DL (12.0-16.0) *L Hematocrit 18.7 % (37.0-47.0) L Mean Corpuscular Volume 89 FL (80-99) Mean Corpuscular Hemoglobin 26.3 PG (27.0-31.0) L Mean Corpuscular Hemoglobin Concent 29.5 G/DL (32.0-36.0) L Red Cell Distribution Width 17.6 % (11.6-14.8) H Platelet Count 195 K/UL (150-450) Mean Platelet Volume 5.9 FL (6.5-10.1) L Neutrophils (%) (Auto) % (45.0-75.0) Lymphocytes (%) (Auto) % (20.0-45.0) Monocytes (%) (Auto) % (1.0-10.0) Eosinophils (%) (Auto) % (0.0-3.0) Basophils (%) (Auto) % (0.0-2.0) Differential Total Cells Counted 100 Neutrophils % (Manual) 80 % (45-75) H Lymphocytes % (Manual) 12 % (20-45) L Monocytes % (Manual) 7 % (1-10) Eosinophils % (Manual) 0 % (0-3) Basophils % (Manual) 0 % (0-2) Band Neutrophils 1 % (0-8) Platelet Estimate Adequate Platelet Morphology Normal Hypochromasia 2+ Anisocytosis 2+ Sodium Level 139 mEQ/L (135-145) Potassium Level 3.7 mEQ/L (3.4-4.9) Chloride Level 102 mEQ/L (98-107) Carbon Dioxide Level 24 mEQ/L (20-30) Anion Gap 13 (5-15) Blood Urea Nitrogen 20 mg/dL (7-23) Creatinine 0.5 mg/dL (0.5-0.9) Estimat Glomerular Filtration Rate mL/min (>60) Glucose Level 83 mg/dL (74-106) Calcium Level 8.0 mg/dL (8.6-10.2) L Ferritin 283 ng/mL (13-150) H Intake and Output 01/25/17 01/26/17 19:00 07:00 Intake Total 400 ml 490 ml Output Total 200 ml 200 ml Balance 200 ml 290 ml Intake Oral 400 ml 250 ml IV Total 240 ml Output Urine Total 200 ml 200 ml # Bowel Movements 1 2 Objective General: alert, cooperative, no distress, appears stated age Head: normocephalic, without obvious abnormality, atraumatic Eyes: pale conjunctivae; corneas clear. PERRL, EOM's intact Throat: lips, mucosa, and tongue normal. MMM Neck: supple, symmetrical, trachea midline, and no JVD Lungs: clear to auscultation bilaterally Heart: regular rate and rhythm, S1, S2 normal, no murmur, click, rub or gallop Abdomen: soft, non-tender, non-distended, bowel sounds normal; no masses or organomegaly Extremities: extremities normal, atraumatic, no cyanosis or edema. Right knee swollen and tender Pulses: 2+ and symmetric Skin: skin color, texture, turgor normal; no rashes or lesions Neurologic: grossly normal, no focal deficits Assessment/Plan Problem List: (1) Femoral distal fracture Assessment & Plan: Se orhto note. Non surgical; non weight bearing. Physical therapy eval (2) DVT (deep venous thrombosis) (3) Refusal of blood transfusions as patient is Mu-ism (4) Iron deficiency anemia (5) Left hemiparesis (6) CVA (cerebrovascular accident) (7) CHF (congestive heart failure) (8) CAD (coronary artery disease) (9) Diabetes mellitus Assessment & Plan: Cont novolog sliding scale. 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 Refused transfusion. See heme note. Cont epogen and IV venofer Status: not improved DELFIN MARTINEZ January 26, 2017 18:56
[2017-01-26 20:00] VITALS: BP 143/61
[2017-01-26] MEDS: Epogen (for non ESRD use) SUBQ SCH (21:42)
[2017-01-26] MEDS: Iron Sucrose 100 MG in NS 55 ML IVPB SCH (21:44)
[2017-01-26] MEDS: Atorvastatin 80mg tab ORAL SCH (21:44)
[2017-01-27] VITALS: BP 104/67
[2017-01-27 04:00] VITALS: BP 139/48
[2017-01-27] MEDS: NovoLOG Insulin Flexpen SUBQ SCH ×4 (06:30→20:53)
[2017-01-27 06:40] LABS: MEAN CORPUSCULAR HEMOGLOBIN 26.4 PG (27.0-31.0); MEAN CORPUSCULAR HGB CONC 29.7 G/DL (32.0-36.0); MEAN CORPUSCULAR VOLUME 89 FL (80-99); MEAN PLATELET VOLUME 6.5 FL (6.5-10.1); PLATELET COUNT 212 K/UL (150-450); RED BLOOD COUNT 1.98 M/UL (4.20-5.40); RED CELL DISTRIBUTION WIDTH 17.6 % (11.6-14.8)
[2017-01-27 06:44] LABS: ANION GAP 13 (5-15); CALCIUM 7.9 mg/dL (8.6-10.2); CARBON DIOXIDE 25 mEQ/L (20-30); CHLORIDE 104 mEQ/L (98-107); CREATININE 0.4 mg/dL (0.5-0.9); HEMOLYSIS 1; POTASSIUM 3.8 mEQ/L (3.4-4.9); SODIUM 142 mEQ/L (135-145)
[2017-01-27 08:00] VITALS: BP 137/66
[2017-01-27 09:41] LABS: ANISOCYTOSIS 1+; BAND NEUTROPHILS % (MANUAL) 0 % (0-8); BASOPHILS % (MANUAL) 0 % (0-2); EOSINOPHILS % (MANUAL) 2 % (0-3); HYPOCHROMASIA 2+; LYMPHOCYTES % (MANUAL) 15 % (20-45); NEUTROPHILS % (MANUAL) 77 % (45-75); PLATELET ESTIMATE ADEQUATE; PLATELET MORPHOLOGY NORMAL; TOTAL CELLS COUNTED 100
[2017-01-27] MEDS: Sertraline 100mg tab ORAL SCH (09:51)
[2017-01-27] MEDS: Donepezil 5mg Tab ORAL SCH (09:51)
[2017-01-27] MEDS: Ascorbic Acid 500mg tab ORAL SCH ×3 (09:52→18:13)
[2017-01-27 10:13] LABS: OTHERS PATHOLOGIST COMMENT
[2017-01-27 12:00] VITALS: BP 142/74
--- NOTE | 2017-01-27 12:19 | Pulmonology Progress Note ---
Assessment/Plan Assessment/Plan ASSESSMENT s/p fall R periprosthetic femoral fracture anemia Jehovah witness, refusing transfusion R knee pain DM Hx of CVA with L hemiparesis AICD dementia CAD with hx of stents Hx of CHF Hx of acute DVT persistent mild to moderate dysphagia PLAN OF CARE MS floor ortho follows ; not a surgical candidate given age and limited mobility in the past conservative management as per ortho recommendations NWB status pain management R knee immobilizer w/chair bound heme follows, refusing transfusion ( Jehovah witness) , on EPO and Venofer, and folate HH still low-5.2/17.6 ferritin high stool OB + ? GI eval per PMD discretion s/p IVC filter Venous Duplex BLE on this admission negative per heme hold a/coagulation for now given severe anemia BP management with BB, optimize as needed BS management with SS of insulin continue statin, lipid panel stable no clinical evidence of CHF exacerbation bowel regimen fall precautions swallow eval done diet as per ST recommendations reflux precautions, aspiration precautions patient continue to decline blood transfusion dc plan iof cleared by heme case discussed and evaluated by supervising physician Subjective Allergies: Coded Allergies: LATEX (Unverified Allergy, Mild, Rash, 09/03/14) QUININE (Unverified Allergy, Unknown, Rash Hives, 05/23/15) Quinine Sulfate Subjective denies SOB, chest pain, on RA sat stable HH still dangerously low-5.2/17.6 Objective Last 24 Hour Vital Signs Date Time Temp Pulse Resp B/P Pulse Ox O2 Delivery O2 Flow Rate FiO2 01/27/17 09:52 100 137/66 01/27/17 08:00 98.4 100 20 137/66 94 Room Air 01/27/17 04:00 98.0 80 18 139/48 96 Room Air 01/27/17 00:00 98.6 88 18 104/67 95 Room Air 01/26/17 21:43 83 143/61 01/26/17 20:00 97.9 83 18 143/61 96 Room Air 01/26/17 16:06 98.2 78 15 149/65 97 Room Air Intake and Output 01/26/17 01/27/17 19:00 07:00 Intake Total 350 ml 480 ml Output Total 300 ml 325 ml Balance 50 ml 155 ml Intake Oral 350 ml 240 ml IV Total 240 ml Output Urine Total 300 ml 325 ml # Bowel Movements 1 Objective General Appearance: no acute distress, other - awake, alert, responsive female HEENT: normocephalic, atraumatic, anicteric Respiratory/Chest: lungs clear, no respiratory distress, no accessory muscle use, other - L chest AICD Cardiovascular: normal peripheral pulses, normal rate, no JVD, RUE PICC intact Abdomen: normal bowel sounds, soft, non tender Genitourinary: normal external genitalia Extremities: no edema, pedal pulses normal Neurologic/Psychiatric: abnormal gait, alert, responsive Musculoskeletal: atrophy - BLE Laboratory Tests 01/27/17 05:15: White Blood Count 8.0, Red Blood Count 1.98L, Hemoglobin 5.2*L, Hematocrit 17.6L , Mean Corpuscular Volume 89, Mean Corpuscular Hemoglobin 26.4L, Mean Corpuscular Hemoglobin Concent 29.7L, Red Cell Distribution Width 17.6H, Platelet Count 212, Mean Platelet Volume 6.5, Neutrophils (%) (Auto) , Lymphocytes (%) (Auto) , Monocytes (%) (Auto) , Eosinophils (%) (Auto) , Basophils (%) (Auto) , Differential Total Cells Counted 100, Neutrophils % ( Manual) 77H, Lymphocytes % (Manual) 15L, Monocytes % (Manual) 6, Eosinophils % ( Manual) 2, Basophils % (Manual) 0, Band Neutrophils 0, Platelet Estimate Adequate, Platelet Morphology Normal, Hypochromasia 2+, Anisocytosis 1+, Sodium Level 142, Potassium Level 3.8, Chloride Level 104, Carbon Dioxide Level 25, Anion Gap 13, Blood Urea Nitrogen 15, Creatinine 0.4L, Estimat Glomerular Filtration Rate , Glucose Level 88, Calcium Level 7.9L Current Medications Medications (Trade) Dose Ordered Sig/Don Route PRN Reason Start Time Stop Time Status Last Admin Dose Admin Acetaminophen (Tylenol) 650 mg Q4H PRN ORAL T>100.5 01/23/17 11:45 02/22/17 11:44 Al Hydroxide/Mg Hydroxide (Mylanta II) 30 ml Q6H PRN ORAL dyspepsia 01/23/17 11:45 02/22/17 11:44 Alprazolam (Xanax) 0.25 mg Q6H PRN ORAL For Anxiety 01/23/17 11:45 01/30/17 11:44 Ascorbic Acid (Vitamin C) 500 mg THREE TIMES A DAY ORAL 01/23/17 13:00 02/22/17 12:59 01/27/17 09:52 Atorvastatin Calcium (Lipitor) 80 mg BEDTIME ORAL 01/23/17 21:00 02/22/17 20:59 01/26/17 21:44 Carvedilol (Coreg) 3.125 mg Q12HR ORAL 01/23/17 21:00 02/22/17 20:59 01/27/17 09:52 Chlorhexidine Gluconate (Merari-Hex 2%) 1 applic DAILY TOPIC 01/27/17 23:00 02/26/17 22:59 Dextrose (Dextrose 50%) STAT PRN IV Hypoglycemia 01/23/17 11:45 02/22/17 11:44 Donepezil HCl (Aricept) 5 mg DAILY ORAL 01/24/17 09:00 02/23/17 08:59 01/27/17 09:51 Epoetin Barak (Procrit (for non ESRD use)) 10,000 units Q48H SUBQ 01/24/17 21:00 02/23/17 20:59 01/26/17 21:42 Folic Acid (Folate) 1 mg DAILY ORAL 01/25/17 09:00 02/24/17 08:59 01/27/17 09:51 Insulin Aspart (NovoLOG) BEFORE MEALS AND HS SUBQ 01/23/17 16:30 02/22/17 16:29 01/25/17 22:10 Iron Sucrose/ Sodium Chloride (Venofer/Sodium Chloride) 60 ml @ 240 mls/hr BEDTIME IVPB 01/24/17 21:00 01/28/17 21:14 01/26/17 21:44 Lactulose 20 gm 20 gm Q8H PRN ORAL CONSTIPATION 01/23/17 11:45 02/22/17 11:44 Lorazepam (Ativan 2mg/ml 1ml) 0.5 mg Q4H PRN IV For Anxiety 01/23/17 11:45 01/30/17 11:44 Mirtazapine (Remeron) 15 mg BEDTIME ORAL 01/23/17 21:00 02/22/17 20:59 01/26/17 21:44 Morphine Sulfate (Morphine Sulfate) 2 mg Q4H PRN IVP PAIN 4-10 01/23/17 11:45 01/30/17 11:44 01/26/17 18:20 Ondansetron HCl (Zofran) 4 mg Q6H PRN IVP Nausea & Vomiting 01/23/17 11:45 02/22/17 11:44 Polyethylene Glycol (Miralax) 17 gm HSPRN PRN ORAL Constipation 01/23/17 21:00 02/22/17 20:59 Sertraline HCl (Zoloft) 100 mg DAILY ORAL 01/24/17 09:00 02/23/17 08:59 01/27/17 09:51 Zolpidem Tartrate (Ambien) 5 mg HSPRN PRN ORAL Insomnia 01/23/17 21:00 02/22/17 20:59 Nnamdi [facility] Vásquez NP January 27, 2017 12:19
--- NOTE | 2017-01-27 15:56 | Internal Med Progress Note ---
Subjective Date of Service: January 27, 2017 Physician Name Delfin Martinez Attending Physician Lobito Jones MD Current Medications Medications (Trade) Dose Ordered Sig/Don Route PRN Reason Start Time Stop Time Status Last Admin Dose Admin Acetaminophen (Tylenol) 650 mg Q4H PRN ORAL T>100.5 01/23/17 11:45 02/22/17 11:44 Al Hydroxide/Mg Hydroxide (Mylanta II) 30 ml Q6H PRN ORAL dyspepsia 01/23/17 11:45 02/22/17 11:44 Alprazolam (Xanax) 0.25 mg Q6H PRN ORAL For Anxiety 01/23/17 11:45 01/30/17 11:44 Ascorbic Acid (Vitamin C) 500 mg THREE TIMES A DAY ORAL 01/23/17 13:00 02/22/17 12:59 01/27/17 13:19 Atorvastatin Calcium (Lipitor) 80 mg BEDTIME ORAL 01/23/17 21:00 02/22/17 20:59 01/26/17 21:44 Carvedilol (Coreg) 3.125 mg Q12HR ORAL 01/23/17 21:00 02/22/17 20:59 01/27/17 09:52 Chlorhexidine Gluconate (Merari-Hex 2%) 1 applic DAILY TOPIC 01/27/17 23:00 02/26/17 22:59 Dextrose (Dextrose 50%) STAT PRN IV Hypoglycemia 01/23/17 11:45 02/22/17 11:44 Donepezil HCl (Aricept) 5 mg DAILY ORAL 01/24/17 09:00 02/23/17 08:59 01/27/17 09:51 Epoetin Barak (Procrit (for non ESRD use)) 10,000 units Q48H SUBQ 01/24/17 21:00 02/23/17 20:59 01/26/17 21:42 Folic Acid (Folate) 1 mg DAILY ORAL 01/25/17 09:00 02/24/17 08:59 01/27/17 09:51 Insulin Aspart (NovoLOG) BEFORE MEALS AND HS SUBQ 01/23/17 16:30 02/22/17 16:29 01/25/17 22:10 Iron Sucrose/ Sodium Chloride (Venofer/Sodium Chloride) 60 ml @ 240 mls/hr BEDTIME IVPB 01/24/17 21:00 01/28/17 21:14 01/26/17 21:44 Lactulose 20 gm 20 gm Q8H PRN ORAL CONSTIPATION 01/23/17 11:45 02/22/17 11:44 Lorazepam (Ativan 2mg/ml 1ml) 0.5 mg Q4H PRN IV For Anxiety 01/23/17 11:45 01/30/17 11:44 Mirtazapine (Remeron) 15 mg BEDTIME ORAL 01/23/17 21:00 02/22/17 20:59 01/26/17 21:44 Morphine Sulfate (Morphine Sulfate) 2 mg Q4H PRN IVP PAIN 4-10 01/23/17 11:45 01/30/17 11:44 01/26/17 18:20 Ondansetron HCl (Zofran) 4 mg Q6H PRN IVP Nausea & Vomiting 01/23/17 11:45 02/22/17 11:44 Polyethylene Glycol (Miralax) 17 gm HSPRN PRN ORAL Constipation 01/23/17 21:00 02/22/17 20:59 Sertraline HCl (Zoloft) 100 mg DAILY ORAL 01/24/17 09:00 02/23/17 08:59 01/27/17 09:51 Zolpidem Tartrate (Ambien) 5 mg HSPRN PRN ORAL Insomnia 01/23/17 21:00 02/22/17 20:59 Allergies: Coded Allergies: LATEX (Unverified Allergy, Mild, Rash, 09/03/14) QUININE (Unverified Allergy, Unknown, Rash Hives, 05/23/15) Quinine Sulfate ROS Limited/Unobtainable: No Constitutional: Reports: no symptoms HEENT: Reports: no symptoms Cardiovascular: Reports: no symptoms Respiratory: Reports: no symptoms Gastrointestinal/Abdominal: Reports: no symptoms Genitourinary: Reports: no symptoms Neurologic/Psychiatric: Reports: no symptoms Subjective 76 YO F admitted with leg pain. Now fracture distal right femur. Cover for Int Madan-Dr Jones. Objective Last Vital Signs Date Time Temp Pulse Resp B/P Pulse Ox O2 Delivery O2 Flow Rate FiO2 01/27/17 12:00 98.1 88 20 142/74 96 Room Air Laboratory Tests Test 01/27/17 05:15 White Blood Count 8.0 K/UL (4.8-10.8) Red Blood Count 1.98 M/UL (4.20-5.40) L Hemoglobin 5.2 G/DL (12.0-16.0) *L Hematocrit 17.6 % (37.0-47.0) L Mean Corpuscular Volume 89 FL (80-99) Mean Corpuscular Hemoglobin 26.4 PG (27.0-31.0) L Mean Corpuscular Hemoglobin Concent 29.7 G/DL (32.0-36.0) L Red Cell Distribution Width 17.6 % (11.6-14.8) H Platelet Count 212 K/UL (150-450) Mean Platelet Volume 6.5 FL (6.5-10.1) Neutrophils (%) (Auto) % (45.0-75.0) Lymphocytes (%) (Auto) % (20.0-45.0) Monocytes (%) (Auto) % (1.0-10.0) Eosinophils (%) (Auto) % (0.0-3.0) Basophils (%) (Auto) % (0.0-2.0) Differential Total Cells Counted 100 Neutrophils % (Manual) 77 % (45-75) H Lymphocytes % (Manual) 15 % (20-45) L Monocytes % (Manual) 6 % (1-10) Eosinophils % (Manual) 2 % (0-3) Basophils % (Manual) 0 % (0-2) Band Neutrophils 0 % (0-8) Platelet Estimate Adequate Platelet Morphology Normal Hypochromasia 2+ Anisocytosis 1+ Sodium Level 142 mEQ/L (135-145) Potassium Level 3.8 mEQ/L (3.4-4.9) Chloride Level 104 mEQ/L (98-107) Carbon Dioxide Level 25 mEQ/L (20-30) Anion Gap 13 (5-15) Blood Urea Nitrogen 15 mg/dL (7-23) Creatinine 0.4 mg/dL (0.5-0.9) L Estimat Glomerular Filtration Rate mL/min (>60) Glucose Level 88 mg/dL (74-106) Calcium Level 7.9 mg/dL (8.6-10.2) L Intake and Output 01/26/17 01/27/17 19:00 07:00 Intake Total 350 ml 480 ml Output Total 300 ml 325 ml Balance 50 ml 155 ml Intake Oral 350 ml 240 ml IV Total 240 ml Output Urine Total 300 ml 325 ml # Bowel Movements 1 Objective General: alert, cooperative, no distress, appears stated age Head: normocephalic, without obvious abnormality, atraumatic Eyes: pale conjunctivae; corneas clear. PERRL, EOM's intact Throat: lips, mucosa, and tongue normal. MMM Neck: supple, symmetrical, trachea midline, and no JVD Lungs: clear to auscultation bilaterally Heart: regular rate and rhythm, S1, S2 normal, no murmur, click, rub or gallop Abdomen: soft, non-tender, non-distended, bowel sounds normal; no masses or organomegaly Extremities: extremities normal, atraumatic, no cyanosis or edema. Right knee swollen and tender Pulses: 2+ and symmetric Skin: skin color, texture, turgor normal; no rashes or lesions Neurologic: grossly normal, no focal deficits Assessment/Plan Problem List: (1) Femoral distal fracture Assessment & Plan: Se orhto note. Non surgical; non weight bearing. Physical therapy eval (2) DVT (deep venous thrombosis) (3) Refusal of blood transfusions as patient is Nondenominational (4) Iron deficiency anemia (5) Left hemiparesis (6) CVA (cerebrovascular accident) (7) CHF (congestive heart failure) (8) CAD (coronary artery disease) (9) Diabetes mellitus Assessment & Plan: Cont novolog sliding scale. 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 Refused transfusion. See heme note. Cont epogen and IV venofer Status: not improved Assessment/Plan Discharge planning: home with caregiver. DELFIN MARTINEZ January 27, 2017 15:56
[2017-01-27 16:00] VITALS: BP 137/79
[2017-01-27] MEDS ORDERED: NS 275ml ONE (18:36)
[2017-01-27 20:00] VITALS: BP 146/76
[2017-01-27] MEDS: Atorvastatin 80mg tab ORAL SCH (20:55)
[2017-01-27] MEDS: Iron Sucrose 100 MG in NS 55 ML IVPB SCH (20:55)
--- NOTE | 2017-01-27 21:00 | General Progress Note ---
Assessment/Plan Assessment/Plan Assessment/Plan Assessment/Plan Assessment: 1. Severe anemia 2/2 iron deficiency - retic count is high from before, but not sufficiently elevated given degree of anemia, patient begun on epo and iron in light of refusing blood transfusions (Orthodox) and may take several days/weeks to improve, however pt refusing today. Patient has been admitted with similar symptoms before. Continues to refuse on blood transfusions. 2. Anemia r/o GI bleed - occult blood positive, rec GI consultation 3. Syncope - 2/2 anemia 4. History of deep venous thrombosis s/p ivc filter of BOTH RIGHT AND LEFT LEG. hx of R dvt as well from before 5. Left hemiplegia. 6. Left Upper extremity swelling 7. Coronary artery disease. 8. Congestive heart failure. 9. Diabetes type 2. 10. Hypertension. 11. Hypercholesterolemia. 12. Noncompliance=patient refused PRBC transfusions. RECS: -. Intravenous Venofer. The patient is a Orthodox. The patient has refused blood transfusions in the past. Hgb >7 goal -. Continue epogen sq -. Anemia w/u has reviewed -. Have again stressed the importance of blood transfusions, she refuses again -. Status post inferior vena cava. HOLD OFF ON ANTICOAGULATION GIVEN ANEMIA -. Venous duplex of r and left legs reviewed -. Close follow up. Heike Fairbanks M.D. Subjective Constitutional: Reports: no symptoms HEENT: Reports: no symptoms Cardiovascular: Reports: no symptoms Respiratory: Reports: no symptoms Gastrointestinal/Abdominal: Reports: no symptoms Genitourinary: Reports: no symptoms Neurologic/Psychiatric: Reports: no symptoms Endocrine: Reports: no symptoms Hematologic/Lymphatic: Reports: no symptoms Allergies: Coded Allergies: LATEX (Unverified Allergy, Mild, Rash, 09/03/14) QUININE (Unverified Allergy, Unknown, Rash Hives, 05/23/15) Quinine Sulfate Objective Last 24 Hour Vital Signs Date Time Temp Pulse Resp B/P Pulse Ox O2 Delivery O2 Flow Rate FiO2 01/27/17 20:00 98.6 99 20 146/76 94 Room Air 01/27/17 16:00 98.4 93 20 137/79 96 Room Air 01/27/17 12:00 98.1 88 20 142/74 96 Room Air 01/27/17 09:52 100 137/66 01/27/17 08:00 98.4 100 20 137/66 94 Room Air 01/27/17 04:00 98.0 80 18 139/48 96 Room Air 01/27/17 00:00 98.6 88 18 104/67 95 Room Air 01/26/17 21:43 83 143/61 Intake and Output 01/26/17 01/27/17 18:59 06:59 Intake Total 350 ml 480 ml Output Total 300 ml 325 ml Balance 50 ml 155 ml Intake Oral 350 ml 240 ml IV Total 240 ml Output Urine Total 300 ml 325 ml # Bowel Movements 1 Laboratory Tests 01/27/17 05:15: White Blood Count 8.0, Red Blood Count 1.98L, Hemoglobin 5.2*L, Hematocrit 17.6L , Mean Corpuscular Volume 89, Mean Corpuscular Hemoglobin 26.4L, Mean Corpuscular Hemoglobin Concent 29.7L, Red Cell Distribution Width 17.6H, Platelet Count 212, Mean Platelet Volume 6.5, Neutrophils (%) (Auto) , Lymphocytes (%) (Auto) , Monocytes (%) (Auto) , Eosinophils (%) (Auto) , Basophils (%) (Auto) , Differential Total Cells Counted 100, Neutrophils % ( Manual) 77H, Lymphocytes % (Manual) 15L, Monocytes % (Manual) 6, Eosinophils % ( Manual) 2, Basophils % (Manual) 0, Band Neutrophils 0, Platelet Estimate Adequate, Platelet Morphology Normal, Hypochromasia 2+, Anisocytosis 1+, Sodium Level 142, Potassium Level 3.8, Chloride Level 104, Carbon Dioxide Level 25, Anion Gap 13, Blood Urea Nitrogen 15, Creatinine 0.4L, Estimat Glomerular Filtration Rate , Glucose Level 88, Calcium Level 7.9L Height (Feet): 5 Height (Inches): 1.00 Weight (Pounds): 138 General Appearance: no apparent distress EENT: TMs normal Neck: supple Cardiovascular: normal rate Abdomen: soft Pelvis: no masses Extremities: non-tender Edema: no edema noted Arm (L), no edema noted Arm (R), no edema noted Leg (L), no edema noted Leg (R), no edema noted Pedal (L), no edema noted Pedal (R), no edema noted Generalized Edema: mild edema Skin: warm/dry Lymphatic: normal anterior cervical (L), normal anterior cervical (R), normal axillary (L), normal axillary (R), normal inguinal (L), normal inguinal (R), normal other, normal posterior cervical (L), normal posterior cervical (R), normal submandibular (L), normal submandibular (R), normal supraclavicular (L), normal supraclavicular (R) HEIKE FAIRBANKS January 27, 2017 21:00
[2017-01-27] MEDS ORDERED: Phytonadione 10 MG in D5W 55 ML IVPB ONE (22:00)
[2017-01-27] MEDS: Octreotide Acetate 500 MCG in Sodium Chloride 499 ML IV SCH (22:39)
[2017-01-27] MEDS: Dyna-Hex 2% Top Sol 8oz TOPIC SCH (22:40)
[2017-01-28] VITALS: BP 116/69
[2017-01-28] MEDS: Morphine Sulfate 2mg/ml Inj IVP PRN ×2 (02:05→19:08)
[2017-01-28 04:00] VITALS: BP 119/71
[2017-01-28] MEDS: NovoLOG Insulin Flexpen SUBQ SCH ×4 (06:30→20:43)
[2017-01-28 07:28] LABS: MEAN CORPUSCULAR HEMOGLOBIN 26.2 PG (27.0-31.0); MEAN CORPUSCULAR HGB CONC 29.9 G/DL (32.0-36.0); MEAN CORPUSCULAR VOLUME 88 FL (80-99); MEAN PLATELET VOLUME 6.1 FL (6.5-10.1); PLATELET COUNT 241 K/UL (150-450); RED BLOOD COUNT 2.07 M/UL (4.20-5.40); RED CELL DISTRIBUTION WIDTH 17.4 % (11.6-14.8); WHITE BLOOD COUNT 7.4 K/UL (4.8-10.8)
[2017-01-28 07:31] LABS: ANION GAP 15 (5-15); CALCIUM 7.9 mg/dL (8.6-10.2); CARBON DIOXIDE 22 mEQ/L (20-30); CHLORIDE 104 mEQ/L (98-107); CREATININE 0.5 mg/dL (0.5-0.9); HEMOLYSIS 0; POTASSIUM 3.9 mEQ/L (3.4-4.9); SODIUM 141 mEQ/L (135-145)
[2017-01-28 08:00] VITALS: BP 152/79
[2017-01-28] MEDS: Ascorbic Acid 500mg tab ORAL SCH ×3 (08:47→17:18)
[2017-01-28] MEDS: Sertraline 100mg tab ORAL SCH (08:47)
[2017-01-28] MEDS: Donepezil 5mg Tab ORAL SCH (08:47)
[2017-01-28] MEDS: Octreotide Acetate 500 MCG in Sodium Chloride 499 ML IV SCH ×2 (08:47→18:27)
[2017-01-28 09:22] LABS: ANISOCYTOSIS 1+; BAND NEUTROPHILS % (MANUAL) 0 % (0-8); BASOPHILS % (MANUAL) 0 % (0-2); EOSINOPHILS % (MANUAL) 3 % (0-3); HYPOCHROMASIA 2+; LYMPHOCYTES % (MANUAL) 15 % (20-45); NEUTROPHILS % (MANUAL) 76 % (45-75); PLATELET ESTIMATE ADEQUATE; PLATELET MORPHOLOGY NORMAL; TOTAL CELLS COUNTED 100
[2017-01-28 12:00] VITALS: BP 123/64
--- NOTE | 2017-01-28 12:33 | Pulmonology Progress Note ---
Assessment/Plan Assessment/Plan ASSESSMENT s/p fall R periprosthetic femoral fracture anemia Jehovah witness, refusing transfusion R knee pain DM Hx of CVA with L hemiparesis AICD dementia CAD with hx of stents Hx of CHF Hx of acute DVT persistent mild to moderate dysphagia PLAN OF CARE MS floor ortho follows ; not a surgical candidate given age and limited mobility in the past conservative management as per ortho recommendations NWB status pain management R knee immobilizer w/chair bound heme follows, refusing transfusion ( Jehovah witness) , on EPO and Venofer, and folate HH still low-5.2/17.6 ferritin high stool OB + ? GI eval per PMD discretion s/p IVC filter Venous Duplex BLE on this admission negative per heme hold a/coagulation for now given severe anemia BP management with BB, optimize as needed BS management with SS of insulin continue statin, lipid panel stable no clinical evidence of CHF exacerbation bowel regimen fall precautions swallow eval done diet as per ST recommendations reflux precautions, aspiration precautions patient continue to decline blood transfusion dc plan if cleared by heme , probably can be dc if declining blood transfusion case discussed and evaluated by supervising physician Subjective Allergies: Coded Allergies: LATEX (Unverified Allergy, Mild, Rash, 09/03/14) QUININE (Unverified Allergy, Unknown, Rash Hives, 05/23/15) Quinine Sulfate Subjective denies SOB, chest pain, on RA sat stable HH still low-5.4/18.2 Objective Last 24 Hour Vital Signs Date Time Temp Pulse Resp B/P Pulse Ox O2 Delivery O2 Flow Rate FiO2 01/28/17 08:48 95 152/79 01/28/17 08:00 98.2 89 20 152/79 95 Room Air 01/28/17 04:00 99.0 90 20 119/71 95 Room Air 01/28/17 00:00 99.0 93 20 116/69 95 Room Air 01/27/17 20:56 99 146/76 01/27/17 20:00 98.6 99 20 146/76 94 Room Air 01/27/17 16:00 98.4 93 20 137/79 96 Room Air Intake and Output 01/27/17 01/28/17 19:00 07:00 Intake Total 120 ml 640 ml Output Total 400 ml 300 ml Balance -280 ml 340 ml Intake Oral 120 ml IV Total 640 ml Output Urine Total 400 ml 300 ml # Bowel Movements 2 Objective General Appearance: no acute distress, other - awake, alert, responsive female HEENT: normocephalic, atraumatic, anicteric Respiratory/Chest: lungs clear, no respiratory distress, no accessory muscle use, other - L chest AICD Cardiovascular: normal peripheral pulses, normal rate, no JVD, RUE PICC intact Abdomen: normal bowel sounds, soft, non tender Genitourinary: normal external genitalia Extremities: no edema, pedal pulses normal Neurologic/Psychiatric: abnormal gait, alert, responsive Musculoskeletal: atrophy - BLE Laboratory Tests 01/28/17 05:30: White Blood Count 7.4, Red Blood Count 2.07L, Hemoglobin 5.4*L, Hematocrit 18.2L , Mean Corpuscular Volume 88, Mean Corpuscular Hemoglobin 26.2L, Mean Corpuscular Hemoglobin Concent 29.9L, Red Cell Distribution Width 17.4H, Platelet Count 241, Mean Platelet Volume 6.1L, Neutrophils (%) (Auto) , Lymphocytes (%) (Auto) , Monocytes (%) (Auto) , Eosinophils (%) (Auto) , Basophils (%) (Auto) , Differential Total Cells Counted 100, Neutrophils % ( Manual) 76H, Lymphocytes % (Manual) 15L, Monocytes % (Manual) 6, Eosinophils % ( Manual) 3, Basophils % (Manual) 0, Band Neutrophils 0, Platelet Estimate Adequate, Platelet Morphology Normal, Hypochromasia 2+, Anisocytosis 1+, Sodium Level 141, Potassium Level 3.9, Chloride Level 104, Carbon Dioxide Level 22, Anion Gap 15, Blood Urea Nitrogen 13, Creatinine 0.5, Estimat Glomerular Filtration Rate , Glucose Level 85, Calcium Level 7.9L Current Medications Medications (Trade) Dose Ordered Sig/Don Route PRN Reason Start Time Stop Time Status Last Admin Dose Admin Acetaminophen (Tylenol) 650 mg Q4H PRN ORAL T>100.5 01/23/17 11:45 02/22/17 11:44 Al Hydroxide/Mg Hydroxide (Mylanta II) 30 ml Q6H PRN ORAL dyspepsia 01/23/17 11:45 02/22/17 11:44 Alprazolam (Xanax) 0.25 mg Q6H PRN ORAL For Anxiety 01/23/17 11:45 01/30/17 11:44 Ascorbic Acid (Vitamin C) 500 mg THREE TIMES A DAY ORAL 01/23/17 13:00 02/22/17 12:59 01/28/17 08:47 Atorvastatin Calcium (Lipitor) 80 mg BEDTIME ORAL 01/23/17 21:00 02/22/17 20:59 01/27/17 20:55 Carvedilol (Coreg) 3.125 mg Q12HR ORAL 01/23/17 21:00 02/22/17 20:59 01/28/17 08:48 Chlorhexidine Gluconate 1 applic 1 applic DAILY TOPIC 01/27/17 23:00 02/26/17 22:59 01/27/17 22:40 Dextrose (Dextrose 50%) STAT PRN IV Hypoglycemia 01/23/17 11:45 02/22/17 11:44 Donepezil HCl (Aricept) 5 mg DAILY ORAL 01/24/17 09:00 02/23/17 08:59 01/28/17 08:47 Epoetin Barak (Procrit (for non ESRD use)) 10,000 units Q48H SUBQ 01/24/17 21:00 02/23/17 20:59 01/26/17 21:42 Folic Acid (Folate) 1 mg DAILY ORAL 01/25/17 09:00 02/24/17 08:59 01/28/17 08:47 Insulin Aspart (NovoLOG) BEFORE MEALS AND HS SUBQ 01/23/17 16:30 02/22/17 16:29 01/28/17 12:15 Iron Sucrose/ Sodium Chloride (Venofer/Sodium Chloride) 60 ml @ 240 mls/hr BEDTIME IVPB 01/24/17 21:00 01/28/17 21:14 01/27/17 20:55 Lactulose 20 gm 20 gm Q8H PRN ORAL CONSTIPATION 01/23/17 11:45 02/22/17 11:44 Lorazepam (Ativan 2mg/ml 1ml) 0.5 mg Q4H PRN IV For Anxiety 01/23/17 11:45 01/30/17 11:44 Mirtazapine (Remeron) 15 mg BEDTIME ORAL 01/23/17 21:00 02/22/17 20:59 01/27/17 20:54 Morphine Sulfate (Morphine Sulfate) 2 mg Q4H PRN IVP PAIN 4-10 01/23/17 11:45 01/30/17 11:44 01/28/17 02:05 Octreotide Acetate/Sodium Chloride (SandoSTATIN/NS) 500 ml @ 50 mls/hr Q10H IV 01/27/17 22:00 02/26/17 21:59 01/28/17 08:47 Ondansetron HCl (Zofran) 4 mg Q6H PRN IVP Nausea & Vomiting 01/23/17 11:45 02/22/17 11:44 Polyethylene Glycol (Miralax) 17 gm HSPRN PRN ORAL Constipation 01/23/17 21:00 02/22/17 20:59 Sertraline HCl (Zoloft) 100 mg DAILY ORAL 01/24/17 09:00 02/23/17 08:59 01/28/17 08:47 Zolpidem Tartrate (Ambien) 5 mg HSPRN PRN ORAL Insomnia 01/23/17 21:00 02/22/17 20:59 Nnamdi [facility]Nohemi NP January 28, 2017 12:33
[2017-01-28] MEDS ORDERED: Tubing IV Secondary IV ONE (14:21)
[2017-01-28] MEDS ORDERED: NS 550ML IV ONE (14:21)
--- NOTE | 2017-01-28 15:11 | Internal Med Progress Note ---
Subjective Date of Service: January 28, 2017 Physician Name Delfin Martinez Attending Physician Lobito Jones MD Current Medications Medications (Trade) Dose Ordered Sig/Don Route PRN Reason Start Time Stop Time Status Last Admin Dose Admin Acetaminophen (Tylenol) 650 mg Q4H PRN ORAL T>100.5 01/23/17 11:45 02/22/17 11:44 Al Hydroxide/Mg Hydroxide (Mylanta II) 30 ml Q6H PRN ORAL dyspepsia 01/23/17 11:45 02/22/17 11:44 Alprazolam (Xanax) 0.25 mg Q6H PRN ORAL For Anxiety 01/23/17 11:45 01/30/17 11:44 Ascorbic Acid (Vitamin C) 500 mg THREE TIMES A DAY ORAL 01/23/17 13:00 02/22/17 12:59 01/28/17 13:03 Atorvastatin Calcium (Lipitor) 80 mg BEDTIME ORAL 01/23/17 21:00 02/22/17 20:59 01/27/17 20:55 Carvedilol (Coreg) 3.125 mg Q12HR ORAL 01/23/17 21:00 02/22/17 20:59 01/28/17 08:48 Chlorhexidine Gluconate 1 applic 1 applic DAILY TOPIC 01/27/17 23:00 02/26/17 22:59 01/27/17 22:40 Dextrose (Dextrose 50%) STAT PRN IV Hypoglycemia 01/23/17 11:45 02/22/17 11:44 Donepezil HCl (Aricept) 5 mg DAILY ORAL 01/24/17 09:00 02/23/17 08:59 01/28/17 08:47 Epoetin Barak (Procrit (for non ESRD use)) 10,000 units Q48H SUBQ 01/24/17 21:00 02/23/17 20:59 01/26/17 21:42 Folic Acid (Folate) 1 mg DAILY ORAL 01/25/17 09:00 02/24/17 08:59 01/28/17 08:47 Insulin Aspart (NovoLOG) BEFORE MEALS AND HS SUBQ 01/23/17 16:30 02/22/17 16:29 01/28/17 12:15 Iron Sucrose/ Sodium Chloride (Venofer/Sodium Chloride) 60 ml @ 240 mls/hr BEDTIME IVPB 01/24/17 21:00 01/28/17 21:14 01/27/17 20:55 Lactulose 20 gm 20 gm Q8H PRN ORAL CONSTIPATION 01/23/17 11:45 02/22/17 11:44 Lorazepam (Ativan 2mg/ml 1ml) 0.5 mg Q4H PRN IV For Anxiety 01/23/17 11:45 01/30/17 11:44 Mirtazapine (Remeron) 15 mg BEDTIME ORAL 01/23/17 21:00 02/22/17 20:59 01/27/17 20:54 Morphine Sulfate (Morphine Sulfate) 2 mg Q4H PRN IVP PAIN 4-10 01/23/17 11:45 01/30/17 11:44 01/28/17 02:05 Octreotide Acetate/Sodium Chloride (SandoSTATIN/NS) 500 ml @ 50 mls/hr Q10H IV 01/27/17 22:00 02/26/17 21:59 01/28/17 08:47 Ondansetron HCl (Zofran) 4 mg Q6H PRN IVP Nausea & Vomiting 01/23/17 11:45 02/22/17 11:44 Polyethylene Glycol (Miralax) 17 gm HSPRN PRN ORAL Constipation 01/23/17 21:00 02/22/17 20:59 Sertraline HCl (Zoloft) 100 mg DAILY ORAL 01/24/17 09:00 02/23/17 08:59 01/28/17 08:47 Zolpidem Tartrate (Ambien) 5 mg HSPRN PRN ORAL Insomnia 01/23/17 21:00 02/22/17 20:59 Allergies: Coded Allergies: LATEX (Unverified Allergy, Mild, Rash, 09/03/14) QUININE (Unverified Allergy, Unknown, Rash Hives, 05/23/15) Quinine Sulfate ROS Limited/Unobtainable: No Constitutional: Reports: no symptoms HEENT: Reports: no symptoms Cardiovascular: Reports: no symptoms Respiratory: Reports: no symptoms Gastrointestinal/Abdominal: Reports: no symptoms Genitourinary: Reports: no symptoms Neurologic/Psychiatric: Reports: no symptoms Subjective 76 YO F admitted with leg pain. Now fracture distal right femur. Cover for Int Med-Dr Jones. Objective Last Vital Signs Date Time Temp Pulse Resp B/P Pulse Ox O2 Delivery O2 Flow Rate FiO2 01/28/17 12:00 98.4 75 20 123/64 96 Room Air Laboratory Tests Test 01/28/17 05:30 White Blood Count 7.4 K/UL (4.8-10.8) Red Blood Count 2.07 M/UL (4.20-5.40) L Hemoglobin 5.4 G/DL (12.0-16.0) *L Hematocrit 18.2 % (37.0-47.0) L Mean Corpuscular Volume 88 FL (80-99) Mean Corpuscular Hemoglobin 26.2 PG (27.0-31.0) L Mean Corpuscular Hemoglobin Concent 29.9 G/DL (32.0-36.0) L Red Cell Distribution Width 17.4 % (11.6-14.8) H Platelet Count 241 K/UL (150-450) Mean Platelet Volume 6.1 FL (6.5-10.1) L Neutrophils (%) (Auto) % (45.0-75.0) Lymphocytes (%) (Auto) % (20.0-45.0) Monocytes (%) (Auto) % (1.0-10.0) Eosinophils (%) (Auto) % (0.0-3.0) Basophils (%) (Auto) % (0.0-2.0) Differential Total Cells Counted 100 Neutrophils % (Manual) 76 % (45-75) H Lymphocytes % (Manual) 15 % (20-45) L Monocytes % (Manual) 6 % (1-10) Eosinophils % (Manual) 3 % (0-3) Basophils % (Manual) 0 % (0-2) Band Neutrophils 0 % (0-8) Platelet Estimate Adequate Platelet Morphology Normal Hypochromasia 2+ Anisocytosis 1+ Sodium Level 141 mEQ/L (135-145) Potassium Level 3.9 mEQ/L (3.4-4.9) Chloride Level 104 mEQ/L (98-107) Carbon Dioxide Level 22 mEQ/L (20-30) Anion Gap 15 (5-15) Blood Urea Nitrogen 13 mg/dL (7-23) Creatinine 0.5 mg/dL (0.5-0.9) Estimat Glomerular Filtration Rate mL/min (>60) Glucose Level 85 mg/dL (74-106) Calcium Level 7.9 mg/dL (8.6-10.2) L Intake and Output 01/27/17 01/28/17 19:00 07:00 Intake Total 120 ml 640 ml Output Total 400 ml 300 ml Balance -280 ml 340 ml Intake Oral 120 ml IV Total 640 ml Output Urine Total 400 ml 300 ml # Bowel Movements 2 Objective General: alert, cooperative, no distress, appears stated age Head: normocephalic, without obvious abnormality, atraumatic Eyes: pale conjunctivae; corneas clear. PERRL, EOM's intact Throat: lips, mucosa, and tongue normal. MMM Neck: supple, symmetrical, trachea midline, and no JVD Lungs: clear to auscultation bilaterally Heart: regular rate and rhythm, S1, S2 normal, no murmur, click, rub or gallop Abdomen: soft, non-tender, non-distended, bowel sounds normal; no masses or organomegaly Extremities: extremities normal, atraumatic, no cyanosis or edema. Right knee swollen and tender Pulses: 2+ and symmetric Skin: skin color, texture, turgor normal; no rashes or lesions Neurologic: grossly normal, no focal deficits Assessment/Plan Problem List: (1) Femoral distal fracture Assessment & Plan: Se orhto note. Non surgical; non weight bearing. Physical therapy eval (2) DVT (deep venous thrombosis) (3) Refusal of blood transfusions as patient is Mu-ism (4) Iron deficiency anemia Assessment & Plan: Continue epogen and IV iron per Heme. (5) Left hemiparesis (6) CVA (cerebrovascular accident) (7) CHF (congestive heart failure) (8) CAD (coronary artery disease) (9) Diabetes mellitus Assessment & Plan: Cont novolog sliding scale. 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 Refused transfusion. See heme note. Cont epogen and IV venofer Assessment/Plan Discharge planning: home with in home health caregiver. DELFIN MARTINEZ January 28, 2017 15:11
[2017-01-28 16:00] VITALS: BP 135/72
[2017-01-28] MEDS: Dyna-Hex 2% Top Sol 8oz TOPIC SCH (16:30)
[2017-01-28 20:00] VITALS: BP 145/68
[2017-01-28] MEDS: Iron Sucrose 100 MG in NS 55 ML IVPB SCH (20:45)
[2017-01-28] MEDS: Epogen (for non ESRD use) SUBQ SCH (20:45)
[2017-01-28] MEDS: Atorvastatin 80mg tab ORAL SCH (20:55)
--- NOTE | 2017-01-28 21:34 | General Progress Note ---
Assessment/Plan Assessment/Plan Assessment: 1. Severe anemia 2/2 iron deficiency - retic count is high from before, but not sufficiently elevated given degree of anemia, patient begun on epo and iron in light of refusing blood transfusions (Pentecostalism) and may take several days/weeks to improve, however pt refusing today. Patient has been admitted with similar symptoms before. Continues to refuse on blood transfusions. 2. Anemia r/o GI bleed - occult blood positive, rec GI consultation 3. Syncope - 2/2 anemia 4. History of deep venous thrombosis s/p ivc filter of BOTH RIGHT AND LEFT LEG. hx of R dvt as well from before 5. Left hemiplegia. 6. Left Upper extremity swelling 7. Coronary artery disease. 8. Congestive heart failure. 9. Diabetes type 2. 10. Hypertension. 11. Hypercholesterolemia. RECS: -. Intravenous Venofer. The patient is a [employer]ism. The patient has refused blood transfusions in the past. Hgb >7 goal -. Continue epogen sq -. Anemia w/u has reviewed on admission -. Have again stressed the importance of blood transfusions, she refuses again -. Status post inferior vena cava. HOLD OFF ON ANTICOAGULATION GIVEN ANEMIA -. Venous duplex of r and left legs reviewed -. Appreciate consultation greatly, will continue to follow Subjective Constitutional: Reports: no symptoms HEENT: Reports: no symptoms Cardiovascular: Reports: no symptoms Respiratory: Reports: no symptoms Gastrointestinal/Abdominal: Reports: no symptoms Genitourinary: Reports: no symptoms Neurologic/Psychiatric: Reports: no symptoms Endocrine: Reports: no symptoms Hematologic/Lymphatic: Reports: anemia Allergies: Coded Allergies: LATEX (Unverified Allergy, Mild, Rash, 09/03/14) QUININE (Unverified Allergy, Unknown, Rash Hives, 05/23/15) Quinine Sulfate Subjective stable, no events to report, still refusing blood products Objective Last 24 Hour Vital Signs Date Time Temp Pulse Resp B/P Pulse Ox O2 Delivery O2 Flow Rate FiO2 01/28/17 20:54 77 131/62 01/28/17 20:00 98.2 81 18 145/68 96 Room Air 01/28/17 16:00 97.9 83 20 135/72 97 Room Air 01/28/17 12:00 98.4 75 20 123/64 96 Room Air 01/28/17 08:48 95 152/79 01/28/17 08:00 98.2 89 20 152/79 95 Room Air 01/28/17 04:00 99.0 90 20 119/71 95 Room Air 01/28/17 00:00 99.0 93 20 116/69 95 Room Air Intake and Output 01/27/17 01/28/17 19:00 07:00 Intake Total 120 ml 640 ml Output Total 400 ml 300 ml Balance -280 ml 340 ml Intake Oral 120 ml IV Total 640 ml Output Urine Total 400 ml 300 ml # Bowel Movements 2 Laboratory Tests 01/28/17 05:30: White Blood Count 7.4, Red Blood Count 2.07L, Hemoglobin 5.4*L, Hematocrit 18.2L , Mean Corpuscular Volume 88, Mean Corpuscular Hemoglobin 26.2L, Mean Corpuscular Hemoglobin Concent 29.9L, Red Cell Distribution Width 17.4H, Platelet Count 241, Mean Platelet Volume 6.1L, Neutrophils (%) (Auto) , Lymphocytes (%) (Auto) , Monocytes (%) (Auto) , Eosinophils (%) (Auto) , Basophils (%) (Auto) , Differential Total Cells Counted 100, Neutrophils % ( Manual) 76H, Lymphocytes % (Manual) 15L, Monocytes % (Manual) 6, Eosinophils % ( Manual) 3, Basophils % (Manual) 0, Band Neutrophils 0, Platelet Estimate Adequate, Platelet Morphology Normal, Hypochromasia 2+, Anisocytosis 1+, Sodium Level 141, Potassium Level 3.9, Chloride Level 104, Carbon Dioxide Level 22, Anion Gap 15, Blood Urea Nitrogen 13, Creatinine 0.5, Estimat Glomerular Filtration Rate , Glucose Level 85, Calcium Level 7.9L Height (Feet): 5 Height (Inches): 1.00 Weight (Pounds): 138 General Appearance: no apparent distress EENT: TMs normal Neck: normal alignment Cardiovascular: regular rhythm Respiratory/Chest: lungs clear Abdomen: soft Extremities: non-tender Edema: 1+ Leg (L), 1+ Leg (R) Edema: mild edema Neurologic: alert Skin: warm/dry Dg [place] January 28, 2017 21:34
[2017-01-29] VITALS (7 sets, daily range): BP systolic 136–162; BP diastolic 66–100
[2017-01-29] MEDS: Octreotide Acetate 500 MCG in Sodium Chloride 499 ML IV SCH ×3 (03:49→23:32)
[2017-01-29] MEDS: NovoLOG Insulin Flexpen SUBQ SCH ×4 (06:04→21:27)
[2017-01-29] MEDS: Sertraline 100mg tab ORAL SCH (09:03)
[2017-01-29] MEDS: Ascorbic Acid 500mg tab ORAL SCH ×3 (09:03→18:46)
[2017-01-29] MEDS: Donepezil 5mg Tab ORAL SCH (09:03)
[2017-01-29] MEDS: Dyna-Hex 2% Top Sol 8oz TOPIC SCH (09:03)
--- NOTE | 2017-01-29 10:32 | Internal Med Progress Note ---
Subjective Date of Service: January 29, 2017 Physician Name Delfin Martinez Attending Physician Lobito Jones MD Current Medications Medications (Trade) Dose Ordered Sig/Don Route PRN Reason Start Time Stop Time Status Last Admin Dose Admin Acetaminophen (Tylenol) 650 mg Q4H PRN ORAL T>100.5 01/23/17 11:45 02/22/17 11:44 Al Hydroxide/Mg Hydroxide (Mylanta II) 30 ml Q6H PRN ORAL dyspepsia 01/23/17 11:45 02/22/17 11:44 Alprazolam (Xanax) 0.25 mg Q6H PRN ORAL For Anxiety 01/23/17 11:45 01/30/17 11:44 Ascorbic Acid (Vitamin C) 500 mg THREE TIMES A DAY ORAL 01/23/17 13:00 02/22/17 12:59 01/29/17 09:03 Atorvastatin Calcium (Lipitor) 80 mg BEDTIME ORAL 01/23/17 21:00 02/22/17 20:59 01/28/17 20:55 Carvedilol (Coreg) 3.125 mg Q12HR ORAL 01/23/17 21:00 02/22/17 20:59 01/29/17 09:03 Chlorhexidine Gluconate 1 applic 1 applic DAILY TOPIC 01/27/17 23:00 02/26/17 22:59 01/29/17 09:03 Dextrose (Dextrose 50%) STAT PRN IV Hypoglycemia 01/23/17 11:45 02/22/17 11:44 Donepezil HCl (Aricept) 5 mg DAILY ORAL 01/24/17 09:00 02/23/17 08:59 01/29/17 09:03 Epoetin Barak (Procrit (for non ESRD use)) 10,000 units Q48H SUBQ 01/24/17 21:00 02/23/17 20:59 01/28/17 20:45 Folic Acid (Folate) 1 mg DAILY ORAL 01/25/17 09:00 02/24/17 08:59 01/29/17 09:03 Insulin Aspart (NovoLOG) BEFORE MEALS AND HS SUBQ 01/23/17 16:30 02/22/17 16:29 01/29/17 06:04 Lactulose (Cephulac) 20 gm Q8H PRN ORAL CONSTIPATION 01/23/17 11:45 02/22/17 11:44 Lorazepam (Ativan 2mg/ml 1ml) 0.5 mg Q4H PRN IV For Anxiety 01/23/17 11:45 01/30/17 11:44 Mirtazapine (Remeron) 15 mg BEDTIME ORAL 01/23/17 21:00 02/22/17 20:59 01/28/17 20:45 Morphine Sulfate (Morphine Sulfate) 2 mg Q4H PRN IVP PAIN 4-10 01/23/17 11:45 01/30/17 11:44 01/28/17 19:08 Octreotide Acetate/Sodium Chloride (SandoSTATIN/NS) 500 ml @ 50 mls/hr Q10H IV 01/27/17 22:00 02/26/17 21:59 01/29/17 03:49 Ondansetron HCl (Zofran) 4 mg Q6H PRN IVP Nausea & Vomiting 01/23/17 11:45 02/22/17 11:44 Polyethylene Glycol (Miralax) 17 gm HSPRN PRN ORAL Constipation 01/23/17 21:00 02/22/17 20:59 Sertraline HCl (Zoloft) 100 mg DAILY ORAL 01/24/17 09:00 02/23/17 08:59 01/29/17 09:03 Zolpidem Tartrate (Ambien) 5 mg HSPRN PRN ORAL Insomnia 01/23/17 21:00 02/22/17 20:59 Allergies: Coded Allergies: LATEX (Unverified Allergy, Mild, Rash, 09/03/14) QUININE (Unverified Allergy, Unknown, Rash Hives, 05/23/15) Quinine Sulfate ROS Limited/Unobtainable: No Constitutional: Reports: no symptoms HEENT: Reports: no symptoms Cardiovascular: Reports: no symptoms Respiratory: Reports: no symptoms Gastrointestinal/Abdominal: Reports: no symptoms Genitourinary: Reports: no symptoms Neurologic/Psychiatric: Reports: no symptoms Subjective 76 YO F admitted with leg pain. Now fracture distal right femur. Cover for Kaylynn Hager-Dr Jones. Objective Last Vital Signs Date Time Temp Pulse Resp B/P Pulse Ox O2 Delivery O2 Flow Rate FiO2 01/29/17 09:03 86 147/84 01/29/17 08:00 97.9 17 96 Room Air Intake and Output 01/28/17 01/29/17 19:00 07:00 Intake Total 550 ml Output Total 400 ml Balance 150 ml IV Total 550 ml Output Urine Total 400 ml # Bowel Movements 1 Objective General: alert, cooperative, no distress, appears stated age Head: normocephalic, without obvious abnormality, atraumatic Eyes: pale conjunctivae; corneas clear. PERRL, EOM's intact Throat: lips, mucosa, and tongue normal. MMM Neck: supple, symmetrical, trachea midline, and no JVD Lungs: clear to auscultation bilaterally Heart: regular rate and rhythm, S1, S2 normal, no murmur, click, rub or gallop Abdomen: soft, non-tender, non-distended, bowel sounds normal; no masses or organomegaly Extremities: extremities normal, atraumatic, no cyanosis or edema. Right knee swollen and tender Pulses: 2+ and symmetric Skin: skin color, texture, turgor normal; no rashes or lesions Neurologic: grossly normal, no focal deficits Assessment/Plan Problem List: (1) Femoral distal fracture Assessment & Plan: Se orhto note. Non surgical; non weight bearing. Physical therapy eval (2) DVT (deep venous thrombosis) (3) Refusal of blood transfusions as patient is Druze (4) Iron deficiency anemia Assessment & Plan: Continue epogen and IV iron per Heme. (5) Left hemiparesis (6) CVA (cerebrovascular accident) (7) CHF (congestive heart failure) (8) CAD (coronary artery disease) (9) Diabetes mellitus Assessment & Plan: Cont novolog sliding scale. (10) Hypercholesteremia Assessment & Plan: Cont lipitor (11) Hypertension Assessment & Plan: Cont coreg (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 (13) Severe anemia Assessment & Plan: [place]. Refused transfusion. See heme note. Cont epogen and IV venofer Assessment/Plan Discharge planning: home with in home health caregiver today DELFIN MARTINEZ January 29, 2017 10:32
--- NOTE | 2017-01-29 19:08 | General Progress Note ---
Assessment/Plan Assessment/Plan Assessment: 1. Severe anemia 2/2 iron deficiency - retic count is high from before, but not sufficiently elevated given degree of anemia, patient begun on epo and iron in light of refusing blood transfusions ([employer]) and may take several days/weeks to improve, however pt refusing today. Patient has been admitted with similar symptoms before. Continues to refuse on blood transfusions. 2. Anemia r/o GI bleed - occult blood positive, rec GI consultation 3. Syncope - 2/2 anemia 4. History of deep venous thrombosis s/p ivc filter of BOTH RIGHT AND LEFT LEG. hx of R dvt as well from before 5. Left hemiplegia. 6. Left Upper extremity swelling 7. Coronary artery disease. 8. Congestive heart failure. 9. Diabetes type 2. 10. Hypertension. 11. Hypercholesterolemia. RECS: -. Intravenous Venofer. The patient is a [employer]. The patient has refused blood transfusions in the past. Hgb >7 goal. Ok for discharge if given epogen and iron at home -. Continue epogen sq -. Anemia w/u has reviewed on admission -. Have again stressed the importance of blood transfusions, she refuses again -. Status post inferior vena cava. HOLD OFF ON ANTICOAGULATION GIVEN ANEMIA -. Venous duplex of r and left legs reviewed -. Appreciate consultation greatly, will continue to follow Subjective Constitutional: Reports: no symptoms HEENT: Reports: no symptoms Cardiovascular: Reports: no symptoms Respiratory: Reports: no symptoms Gastrointestinal/Abdominal: Reports: no symptoms Genitourinary: Reports: no symptoms Neurologic/Psychiatric: Reports: no symptoms Hematologic/Lymphatic: Reports: no symptoms Allergies: Coded Allergies: LATEX (Unverified Allergy, Mild, Rash, 09/03/14) QUININE (Unverified Allergy, Unknown, Rash Hives, 05/23/15) Quinine Sulfate Subjective stable, no events to report, still refusing blood products, potential d/c today Objective Last 24 Hour Vital Signs Date Time Temp Pulse Resp B/P Pulse Ox O2 Delivery O2 Flow Rate FiO2 01/29/17 15:58 97.2 74 20 150/100 95 Room Air 01/29/17 12:02 97.6 71 20 154/83 99 Room Air 01/29/17 09:03 86 147/84 01/29/17 08:00 97.9 86 17 147/84 96 Room Air 01/29/17 04:00 98.0 76 18 140/66 96 Room Air 01/29/17 00:00 97.0 82 18 136/71 97 Room Air 01/28/17 20:54 77 131/62 01/28/17 20:00 98.2 81 18 145/68 96 Room Air Intake and Output 01/28/17 01/29/17 19:00 07:00 Intake Total 730 ml Output Total 600 ml Balance 130 ml Intake Oral 180 ml IV Total 550 ml Output Urine Total 600 ml # Voids 1 # Bowel Movements 1 Height (Feet): 5 Height (Inches): 1.00 Weight (Pounds): 138 General Appearance: no apparent distress EENT: TMs normal Neck: supple Cardiovascular: regular rhythm Respiratory/Chest: lungs clear Abdomen: soft Extremities: non-tender Edema: 1+ Leg (L), 1+ Leg (R) Edema: mild edema Neurologic: alert Skin: warm/dry Dg [place] January 29, 2017 19:08
[2017-01-29] MEDS: Atorvastatin 80mg tab ORAL SCH (21:25)
--- NOTE | 2017-01-29 22:58 | Pulmonology Progress Note ---
Assessment/Plan Problems: (1) Hip fracture (2) Anemia (3) Hypertension (4) ICD (implantable cardioverter-defibrillator) in place (5) Patient is Christian (6) Diabetes mellitus Assessment/Plan on epogen, folic acid, venofer etc hem f/u avoid blood draw daily check h/h pain control dc planning Subjective ROS Limited/Unobtainable: No Allergies: Coded Allergies: LATEX (Unverified Allergy, Mild, Rash, 09/03/14) QUININE (Unverified Allergy, Unknown, Rash Hives, 05/23/15) Quinine Sulfate Objective Last 24 Hour Vital Signs Date Time Temp Pulse Resp B/P Pulse Ox O2 Delivery O2 Flow Rate FiO2 01/29/17 21:25 78 156/68 01/29/17 20:20 156/68 01/29/17 19:56 98.1 78 17 162/72 96 Room Air 01/29/17 15:58 97.2 74 20 150/100 95 Room Air 01/29/17 12:02 97.6 71 20 154/83 99 Room Air 01/29/17 09:03 86 147/84 01/29/17 08:00 97.9 86 17 147/84 96 Room Air 01/29/17 04:00 98.0 76 18 140/66 96 Room Air 01/29/17 00:00 97.0 82 18 136/71 97 Room Air Intake and Output 01/28/17 01/29/17 19:00 07:00 Intake Total 730 ml Output Total 600 ml Balance 130 ml Intake Oral 180 ml IV Total 550 ml Output Urine Total 600 ml # Voids 1 # Bowel Movements 1 Objective General Appearance: cachectic HEENT: normocephalic, atraumatic Respiratory/Chest: chest wall non-tender, lungs clear Cardiovascular: normal peripheral pulses, normal rate Abdomen: normal bowel sounds, no organomegaly 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 Current Medications Medications (Trade) Dose Ordered Sig/Don Route PRN Reason Start Time Stop Time Status Last Admin Dose Admin Acetaminophen (Tylenol) 650 mg Q4H PRN ORAL T>100.5 01/23/17 11:45 02/22/17 11:44 Al Hydroxide/Mg Hydroxide (Mylanta II) 30 ml Q6H PRN ORAL dyspepsia 01/23/17 11:45 02/22/17 11:44 Alprazolam (Xanax) 0.25 mg Q6H PRN ORAL For Anxiety 01/23/17 11:45 01/30/17 11:44 Ascorbic Acid (Vitamin C) 500 mg THREE TIMES A DAY ORAL 01/23/17 13:00 02/22/17 12:59 01/29/17 18:46 Atorvastatin Calcium (Lipitor) 80 mg BEDTIME ORAL 01/23/17 21:00 02/22/17 20:59 01/29/17 21:25 Carvedilol (Coreg) 3.125 mg Q12HR ORAL 01/23/17 21:00 02/22/17 20:59 01/29/17 21:25 Chlorhexidine Gluconate 1 applic 1 applic DAILY TOPIC 01/27/17 23:00 02/26/17 22:59 01/29/17 09:03 Dextrose (Dextrose 50%) STAT PRN IV Hypoglycemia 01/23/17 11:45 02/22/17 11:44 Donepezil HCl (Aricept) 5 mg DAILY ORAL 01/24/17 09:00 02/23/17 08:59 01/29/17 09:03 Epoetin Barak (Procrit (for non ESRD use)) 10,000 units Q48H SUBQ 01/24/17 21:00 02/23/17 20:59 01/28/17 20:45 Folic Acid (Folate) 1 mg DAILY ORAL 01/25/17 09:00 02/24/17 08:59 01/29/17 09:03 Insulin Aspart (NovoLOG) BEFORE MEALS AND HS SUBQ 01/23/17 16:30 02/22/17 16:29 01/29/17 21:27 Lactulose (Cephulac) 20 gm Q8H PRN ORAL CONSTIPATION 01/23/17 11:45 02/22/17 11:44 Lorazepam (Ativan 2mg/ml 1ml) 0.5 mg Q4H PRN IV For Anxiety 01/23/17 11:45 01/30/17 11:44 Mirtazapine (Remeron) 15 mg BEDTIME ORAL 01/23/17 21:00 02/22/17 20:59 01/29/17 21:26 Morphine Sulfate (Morphine Sulfate) 2 mg Q4H PRN IVP PAIN 4-10 01/23/17 11:45 01/30/17 11:44 01/28/17 19:08 Octreotide Acetate/Sodium Chloride (SandoSTATIN/NS) 500 ml @ 50 mls/hr Q10H IV 01/27/17 22:00 02/26/17 21:59 01/29/17 14:18 Ondansetron HCl (Zofran) 4 mg Q6H PRN IVP Nausea & Vomiting 01/23/17 11:45 02/22/17 11:44 Polyethylene Glycol (Miralax) 17 gm HSPRN PRN ORAL Constipation 01/23/17 21:00 02/22/17 20:59 Sertraline HCl (Zoloft) 100 mg DAILY ORAL 01/24/17 09:00 02/23/17 08:59 01/29/17 09:03 Zolpidem Tartrate (Ambien) 5 mg HSPRN PRN ORAL Insomnia 01/23/17 21:00 02/22/17 20:59 01/29/17 21:31 MARLENY TURPIN January 29, 2017 22:58
[2017-01-30] VITALS: BP 110/51
[2017-01-30 04:00] VITALS: BP 154/68
[2017-01-30] MEDS: NovoLOG Insulin Flexpen SUBQ SCH ×2 (06:29→11:30)
[2017-01-30 08:46] VITALS: BP 169/78
[2017-01-30] MEDS: Ascorbic Acid 500mg tab ORAL SCH ×2 (08:46→13:43)
[2017-01-30] MEDS: Sertraline 100mg tab ORAL SCH (08:47)
[2017-01-30] MEDS: Donepezil 5mg Tab ORAL SCH (08:47)
[2017-01-30] MEDS: Dyna-Hex 2% Top Sol 8oz TOPIC SCH (08:49)
[2017-01-30] MEDS: Octreotide Acetate 500 MCG in Sodium Chloride 499 ML IV SCH (11:31)
[2017-01-30 12:00] VITALS: BP 151/68
[2017-01-30] MEDS ORDERED: VENOFER50 MG/2.5 IV (12:37)
[2017-01-30] MEDS ORDERED: PROCRIT10000 UNIT SUBQ (12:39)
[2017-01-30 12:57] VITALS: BP 151/68
[2017-01-30] MEDS ORDERED: Morphine Sulfate 2mg/ml Inj IVP ONE (14:15)
[2017-01-30] MEDS ORDERED: NS 275ml ONE (14:29)
[2017-01-30] MEDS ORDERED: Tubing IV Secondary IV ONE (14:29)
--- NOTE | 2017-01-30 14:42 | Internal Med Progress Note ---
Subjective Physician Name Lobito Jones Attending Physician Lobito Jones MD Current Medications Medications (Trade) Dose Ordered Sig/Don Route PRN Reason Start Time Stop Time Status Last Admin Dose Admin Acetaminophen (Tylenol) 650 mg Q4H PRN ORAL T>100.5 01/23/17 11:45 02/22/17 11:44 Al Hydroxide/Mg Hydroxide (Mylanta II) 30 ml Q6H PRN ORAL dyspepsia 01/23/17 11:45 02/22/17 11:44 Ascorbic Acid (Vitamin C) 500 mg THREE TIMES A DAY ORAL 01/23/17 13:00 02/22/17 12:59 01/30/17 13:43 Atorvastatin Calcium (Lipitor) 80 mg BEDTIME ORAL 01/23/17 21:00 02/22/17 20:59 01/29/17 21:25 Carvedilol (Coreg) 3.125 mg Q12HR ORAL 01/23/17 21:00 02/22/17 20:59 01/30/17 08:47 Chlorhexidine Gluconate 1 applic 1 applic DAILY TOPIC 01/27/17 23:00 02/26/17 22:59 01/30/17 08:49 Dextrose (Dextrose 50%) STAT PRN IV Hypoglycemia 01/23/17 11:45 02/22/17 11:44 Donepezil HCl (Aricept) 5 mg DAILY ORAL 01/24/17 09:00 02/23/17 08:59 01/30/17 08:47 Epoetin Barak (Procrit (for non ESRD use)) 10,000 units Q48H SUBQ 01/24/17 21:00 02/23/17 20:59 01/28/17 20:45 Folic Acid (Folate) 1 mg DAILY ORAL 01/25/17 09:00 02/24/17 08:59 01/30/17 08:47 Insulin Aspart (NovoLOG) BEFORE MEALS AND HS SUBQ 01/23/17 16:30 02/22/17 16:29 01/29/17 21:27 Lactulose (Cephulac) 20 gm Q8H PRN ORAL CONSTIPATION 01/23/17 11:45 02/22/17 11:44 Mirtazapine (Remeron) 15 mg BEDTIME ORAL 01/23/17 21:00 02/22/17 20:59 01/29/17 21:26 Octreotide Acetate/Sodium Chloride (SandoSTATIN/NS) 500 ml @ 50 mls/hr Q10H IV 01/27/17 22:00 02/26/17 21:59 01/30/17 11:31 Ondansetron HCl (Zofran) 4 mg Q6H PRN IVP Nausea & Vomiting 01/23/17 11:45 02/22/17 11:44 Polyethylene Glycol (Miralax) 17 gm HSPRN PRN ORAL Constipation 01/23/17 21:00 02/22/17 20:59 Sertraline HCl (Zoloft) 100 mg DAILY ORAL 01/24/17 09:00 02/23/17 08:59 01/30/17 08:47 Zolpidem Tartrate (Ambien) 5 mg HSPRN PRN ORAL Insomnia 01/23/17 21:00 02/22/17 20:59 01/29/17 21:31 Allergies: Coded Allergies: LATEX (Unverified Allergy, Mild, Rash, 09/03/14) QUININE (Unverified Allergy, Unknown, Rash Hives, 05/23/15) Quinine Sulfate Subjective awake, alert, responsive, NAD Objective Last Vital Signs Date Time Temp Pulse Resp B/P Pulse Ox O2 Delivery O2 Flow Rate FiO2 01/30/17 12:57 98.4 74 16 151/68 98 Room Air Intake and Output 01/29/17 01/30/17 19:00 07:00 Intake Total 540 ml 575 ml Output Total 800 ml 400 ml Balance -260 ml 175 ml Intake Oral 440 ml IV Total 100 ml 575 ml Output Urine Total 800 ml 400 ml # Voids 1 # Bowel Movements 1 1 Objective GENERAL: awake, alert, responsive, NAD. HEENT: Eyes, pupils are equal and responsive to light and accommodation. Extraocular movements are intact. NECK: Supple without lymphadenopathy. CHEST: Lungs are clear to auscultation bilaterally , No Rales. CARDIOVASCULAR: Regular rhythm and rate. S1 and S2. No murmurs. ABDOMEN: Soft, nontender, and nondistended. Positive bowel sounds. EXTREMITIES: Negative for clubbing, cyanosis, or edema. Right knee brace. NEUROLOGIC: Cranial nerves II through XII are grossly intact, left side hemiparesis. Assessment/Plan Assessment/Plan 1. Displaced fracture of the right distal femur. 2. Acute deep venous thrombosis, right leg. 3. Chronic deep venous thrombosis of the left leg. 4. Severe iron-deficiency anemia. 5. Cerebrovascular disease. 6. Left hemiparesis. 7. Coronary artery disease. 8. Congestive heart failure. 9. Diabetes. 10. Hypertension. 11. Hypercholesterolemia. 12. Automatic implanted cardioverter-defibrillator in situ. Plan: discharge to [facility] discuss with daughter extensively over the phone regarding plan of care and discharge to SNF. monitor Labs in SNF. Lobito Jones MD January 30, 2017 14:42
--- NOTE | 2017-01-30 16:37 | General Progress Note ---
Assessment/Plan Assessment/Plan Assessment: 1. Severe anemia 2/2 iron deficiency - retic count is high from before, but not sufficiently elevated given degree of anemia, patient begun on epo and iron in light of refusing blood transfusions ([facility]) and may take several days/weeks to improve, however pt refusing today. Patient has been admitted with similar symptoms before. Continues to refuse on blood transfusions. 2. Anemia r/o GI bleed - occult blood positive, rec GI consultation 3. Syncope - 2/2 anemia 4. History of deep venous thrombosis s/p ivc filter of BOTH RIGHT AND LEFT LEG. hx of R dvt as well from before 5. Left hemiplegia. 6. Left Upper extremity swelling 7. Coronary artery disease. 8. Congestive heart failure. 9. Diabetes type 2. 10. Hypertension. 11. Hypercholesterolemia. RECS: -. Continue Intravenous Venofer. The patient is a [facility]. The patient has refused blood transfusions in the past. Hgb >7 goal. Ok for discharge if given epogen and iron at home -. Continue epogen sq -. Anemia w/u has reviewed on admission -. Have again stressed the importance of blood transfusions, she refuses again -. Status post inferior vena cava. HOLD OFF ON ANTICOAGULATION given anemia -. Venous duplex of r and left legs reviewed -. Appreciate consultation greatly Subjective Constitutional: Reports: no symptoms HEENT: Reports: no symptoms Cardiovascular: Reports: no symptoms Respiratory: Reports: no symptoms Gastrointestinal/Abdominal: Reports: poor appetite Genitourinary: Reports: no symptoms Neurologic/Psychiatric: Reports: no symptoms Endocrine: Reports: no symptoms Hematologic/Lymphatic: Reports: anemia Allergies: Coded Allergies: LATEX (Unverified Allergy, Mild, Rash, 09/03/14) QUININE (Unverified Allergy, Unknown, Rash Hives, 05/23/15) Quinine Sulfate Subjective stable, no events to report, still refusing blood products, d/c today Objective Last 24 Hour Vital Signs Date Time Temp Pulse Resp B/P Pulse Ox O2 Delivery O2 Flow Rate FiO2 01/30/17 12:57 98.4 74 16 151/68 98 Room Air 01/30/17 12:00 98.4 74 16 151/68 99 Room Air 01/30/17 08:47 75 154/68 01/30/17 08:46 97.5 78 16 169/78 99 Room Air 01/30/17 04:00 97.7 75 20 154/68 99 Room Air 01/30/17 00:00 97.7 60 17 110/51 97 Room Air 01/29/17 21:25 78 156/68 01/29/17 20:20 156/68 01/29/17 19:56 98.1 78 17 162/72 96 Room Air Intake and Output 01/29/17 01/30/17 19:00 07:00 Intake Total 540 ml 575 ml Output Total 800 ml 400 ml Balance -260 ml 175 ml Intake Oral 440 ml IV Total 100 ml 575 ml Output Urine Total 800 ml 400 ml # Voids 1 # Bowel Movements 1 1 Height (Feet): 5 Height (Inches): 1.00 Weight (Pounds): 138 General Appearance: no apparent distress EENT: TMs normal Neck: normal alignment Cardiovascular: normal rate Respiratory/Chest: normal breath sounds Genitourinary/Rectal: heme negative stool Extremities: normal inspection Edema: mild edema Skin: normal pigmentation Dg [place] January 30, 2017 16:37
--- NOTE | 2017-01-30 23:48 | Pulmonology Progress Note ---
Assessment/Plan Problems: (1) Hip fracture (2) Anemia (3) Hypertension (4) ICD (implantable cardioverter-defibrillator) in place (5) Patient is Islam (6) Diabetes mellitus Assessment/Plan on epogen, folic acid, venofer etc hem f/u avoid blood draw daily check h/h pain control dc planning Subjective Allergies: Coded Allergies: LATEX (Unverified Allergy, Mild, Rash, 09/03/14) QUININE (Unverified Allergy, Unknown, Rash Hives, 05/23/15) Quinine Sulfate Objective Last 24 Hour Vital Signs Date Time Temp Pulse Resp B/P Pulse Ox O2 Delivery O2 Flow Rate FiO2 01/30/17 12:57 98.4 74 16 151/68 98 Room Air 01/30/17 12:00 98.4 74 16 151/68 99 Room Air 01/30/17 08:47 75 154/68 01/30/17 08:46 97.5 78 16 169/78 99 Room Air 01/30/17 04:00 97.7 75 20 154/68 99 Room Air 01/30/17 00:00 97.7 60 17 110/51 97 Room Air Intake and Output 01/29/17 01/30/17 19:00 07:00 Intake Total 540 ml 575 ml Output Total 800 ml 400 ml Balance -260 ml 175 ml Intake Oral 440 ml IV Total 100 ml 575 ml Output Urine Total 800 ml 400 ml # Voids 1 # Bowel Movements 1 1 Objective General Appearance: cachectic HEENT: normocephalic, atraumatic Respiratory/Chest: chest wall non-tender, lungs clear Cardiovascular: normal peripheral pulses, normal rate Abdomen: normal bowel sounds, no organomegaly 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
--- NOTE | 2017-01-31 18:31 | Diagnostic Imaging Report ---
APPROVED REPORT CPT Code: 54252 Present Symptoms Lower Extremity Pain: Bilateral Lower Extremity Edema: Bilateral Comments: Rt femur fracture. Pt immobile. Hx bilateral knee replacement. Hx right acute DVT from the proximal superficial femoral vein to the calf veins. Hx left chronic DVT in the superficial femoral vein. Past History DVT :Right Prior Lower Extremity Venous DuplexDate : 12/17/2016 Risk Factors Trauma Technically difficult study. Limited visualization (patient has right femur fracture and is immobile with limited access to the superficial femoral and popliteal veins). RIGHT LEG: Venous imaging reveals a patent deep venous system. There is no evidence of acute thrombus within the common femoral and proximal superficial femoral veins. Doppler indicates normal spontaneous flow within these segments. The mid-distal superficial femoral and popliteal veins were not well visualized. The calf veins were not well visualized. The greater saphenous vein is within normal limits. LEFT LEG: Venous imaging reveals a patent deep venous system. There is no evidence of acute thrombus within the common femoral, superficial femoral or tibial segments. Doppler indicates normal spontaneous flow within these segments. Chronic, recanalized thrombus is noted in the superficial femoral vein. The popliteal vein was not well visualized. The greater saphenous vein is within normal limits. ALIS Pagan was notified of limited study at 20:40 hrs.
--- NOTE | 2017-02-01 14:28 | Discharge Summary ---
Discharge Summary Hospital Course Date of Admission January 23, 2017 at 09:33 Date of Discharge January 30, 2017 at 14:30 Admitting Diagnosis fx right knee HPI Shirin Sommer is a 76 year old female who was admitted on January 23, 2017 at 09:33 for Fracture Right Knee Hospital Course [id number] Discharge Discharge Disposition Patient was discharged to SNF/Subacute Facility(03) Discharge Diagnoses: Melani Hinds NP February 01, 2017 14:28
== END 2017-01-30 14:30 | DRG 534 ==
LOC: EDBD 08:40 → EMR 09:24 → 4E 09:33 → EDBEDREQ 10:16 → 4E 01-25 11:09
PROC: 02HV33Z Insertion of Infusion Device into Superior Vena Cava, Percutaneous Approach (ICD-10-PCS; principal; 2017-01-23)
DX: S72.431A Displaced fracture of medial condyle of right femur, initial encounter for closed fracture (principal); I82.401 Acute embolism and thrombosis of unspecified deep veins of right lower extremity; I50.9 Heart failure, unspecified; I69.354 Hemiplegia and hemiparesis following cerebral infarction affecting left non-dominant side; M97.12XA Periprosthetic fracture around internal prosthetic left knee joint, initial encounter; R13.10 Dysphagia, unspecified; I82.502 Chronic embolism and thrombosis of unspecified deep veins of left lower extremity; I10 Essential (primary) hypertension; E11.9 Type 2 diabetes mellitus without complications; D50.8 Other iron deficiency anemias; W05.0XXA Fall from non-moving wheelchair, initial encounter; Y92.129 Unspecified place in nursing home as the place of occurrence of the external cause; Z88.8 Allergy status to other drugs, medicaments and biological substances; Z86.73 Personal history of transient ischemic attack (TIA), and cerebral infarction without residual deficits; I25.10 Atherosclerotic heart disease of native coronary artery without angina pectoris; Z95.5 Presence of coronary angioplasty implant and graft; E78.00 Pure hypercholesterolemia, unspecified; Z96.653 Presence of artificial knee joint, bilateral; Z98.1 Arthrodesis status; Z79.02 Long term (current) use of antithrombotics/antiplatelets; M79.89 Other specified soft tissue disorders; Z53.1 Procedure and treatment not carried out because of patient's decision for reasons of belief and group pressure; Z95.810 Presence of automatic (implantable) cardiac defibrillator
CPT/HCPCS: 36415; 36569; 76937; 80048; 80053; 80061; 81003; 82728; 82962; 84443; 85007; 85025; 85610; 85730; 87081; 93005; 93970; J1815; J2405

== ENCOUNTER 2017-05-04 13:24 | Inpatient (IN) | payer MEDICARE, MEDICAID ==
[~2017-05-04] VITALS: Ht 162.6 cm; Wt 59.0 kg
[~2017-05-04 13:24] MED LIST changes: +ALPRAZOLAM0.25 MG ORAL; +MIRTAZAPINE15 MG ORAL; +MULTIVITAMINS1 EAC8 ORAL; +OMEPRAZOLE20 M3 ORAL; +TYLENOL650 MG/20. ORAL; +VENOFER50 MG/2.5 IV; +VITAMIN C500 M1 ORAL
--- NOTE | 2017-05-04 14:04 | Emergency Room Report ---
History of Present Illness General Chief Complaint: Altered Level of Consciousness Source: Patient, Family Member, Medical Record Present Illness HPI 76-year-old female with history of severe anemia (no transfusions, gets Epogen shots), CVA, CHF hyperlipidemia diabetes hypertension, history of DVT with IVC filter, bedbound, on Plavix for unknown reason, presenting with episode of altered mental status. Patient was last admitted to [facility] in January for femur fracture, was discharged to rehabilitation, now coming from home after daughter witnessed patient to have about 2 hours of altered mental status. Daughter states that this morning around 6 AM patient had multiple episodes of watery diarrhea.. no nausea or vomiting. She did not complain of abdominal pain. Around 12 PM daughter came back and found that patient was less responsive than normal. could barely open her eyes and answer questions. Patient slowly came back to her baseline aox2 after 2 hours No reported trauma. No reported fever or chills. Allergies: Coded Allergies: LATEX (Unverified Allergy, Mild, Rash, 09/03/14) QUININE (Unverified Allergy, Unknown, Rash Hives, 05/23/15) Quinine Sulfate Patient History Past Medical History: see triage record Past Surgical History: marcello Pertinent Family History: none Reviewed Nursing Documentation: PMH: Agreed, PSxH: Agreed Nursing Documentation-PMH Hx Cardiac Problems: Yes - AICD Left Chest, Cardiac Stent 2014 Hx Hypertension: Yes Hx Pacemaker: Yes - AICD Left upper chest Hx Asthma: Yes Hx Diabetes: Yes - Type 2 Hx Cancer: No Hx Gastrointestinal Problems: Yes Hx Neurological Problems: Yes Hx Cerebrovascular Accident: Yes - With L Hemiparesis Hx Dementia: Yes Hx Vertigo: Yes Hx Dizziness: Yes Hx Syncope: Yes Hx Headaches: Yes Hx Weakness: Yes Hx Fatigue: Yes Review of Systems All Other Systems: negative except mentioned in HPI Physical Exam Vital Signs Date Time Temp Pulse Resp B/P (MAP) Pulse Ox O2 Delivery O2 Flow Rate FiO2 05/04/17 13:21 98.1 84 16 154/89 98 Room Air Sp02 EP Interpretation: reviewed, normal General Appearance: no apparent distress, alert, other - Elderly pale- appearing female. Awake and alert. Oriented x 2. Not in acute distress Head: normocephalic, atraumatic Eyes: bilateral eye normal inspection, bilateral eye PERRL, bilateral eye EOMI ENT: normal ENT inspection, normal pharynx, normal voice, moist mucus membranes Neck: normal inspection, full range of motion, supple Respiratory: normal inspection, lungs clear, normal breath sounds, no respiratory distress, no retraction, no wheezing, speaking full sentences, chest symmetrical Cardiovascular #1: normal inspection, regular rate, rhythm, normal capillary refill, other - 2+ pitting edema bilateral lower extremities Cardiovascular #2: 2+ radial (R), 2+ radial (L) Gastrointestinal: normal inspection, non tender, soft, non-distended, no guarding Musculoskeletal: normal inspection, back normal, normal range of motion, non- tender Neurologic: normal inspection, alert, responsive, sensory intact, normal gait, speech normal, other - Able to move upper extremities without difficulty Psychiatric: normal inspection, judgement/insight normal, memory normal Skin: normal inspection, normal color, no rash, warm/dry, well hydrated, normal turgor Medical Decision Making Diagnostic Impression: Primary Impression: Altered mental state Additional Impressions: Dehydration Diarrhea UTI (urinary tract infection) ER Course 76 yo F with AMS DDX: dehydration electrolyte disturbance: hyponatremia / hypoglycemia infectious: uti/pna intracranial process: CVA/head bleed anemia cardiac Plan: Obtain labs, ua, EKG, CXR ER course: Patient has been monitored during ED stay, HD stable +UTI- abx given gentle hydration with IVF Disposition: Patient is to be admitted to med surg D/W hospitalist - Dr Jones Please note that this Emergency Department Report was dictated using [employer] indoor environmentalist technology software, occasionally this can lead to erroneous entry secondary to interpretation by the dictation equipment. Laboratory Tests Test 05/04/17 13:55 05/04/17 14:40 White Blood Count 6.7 K/UL (4.8-10.8) Red Blood Count 3.69 M/UL (4.20-5.40) L Hemoglobin 10.6 G/DL (12.0-16.0) L Hematocrit 35.1 % (37.0-47.0) L Mean Corpuscular Volume 95 FL (80-99) Mean Corpuscular Hemoglobin 28.7 PG (27.0-31.0) Mean Corpuscular Hemoglobin Concent 30.2 G/DL (32.0-36.0) L Red Cell Distribution Width 16.7 % (11.6-14.8) H Platelet Count 272 K/UL (150-450) Mean Platelet Volume 6.5 FL (6.5-10.1) Neutrophils (%) (Auto) 75.9 % (45.0-75.0) H Lymphocytes (%) (Auto) 15.7 % (20.0-45.0) L Monocytes (%) (Auto) 6.1 % (1.0-10.0) Eosinophils (%) (Auto) 1.7 % (0.0-3.0) Basophils (%) (Auto) 0.7 % (0.0-2.0) Sodium Level 142 mEQ/L (135-145) Potassium Level 4.6 mEQ/L (3.4-4.9) Chloride Level 102 mEQ/L (98-107) Carbon Dioxide Level 27 mEQ/L (20-30) Anion Gap 13 (5-15) Blood Urea Nitrogen 11 mg/dL (7-23) Creatinine 0.6 mg/dL (0.5-0.9) Estimate Glomerular Filtration Rate mL/min (>60) Glucose Level 84 mg/dL (74-106) Lactic Acid Level 1.10 mmol/L (0.66-2.22) Calcium Level 9.7 mg/dL (8.6-10.2) Total Bilirubin 0.3 mg/dL (0.0-1.2) Aspartate Amino Transferase (AST) 19 U/L (5-40) Alanine Aminotransferase (ALT) 8 U/L (3-33) Alkaline Phosphatase 100 U/L (35-104) Total Creatine Kinase 45 U/L (26-140) Creatine Kinase MB < 1.5 ng/mL (< 3.8) Creatine Kinase MB Relative Index Troponin I < 0.30 ng/mL (<=0.30) Pro-B-Type Natriuretic Peptide 1017 pg/mL (0-125) H Total Protein 7.1 g/dL (6.6-8.7) Albumin 3.7 g/dL (3.5-5.2) Globulin 3.4 g/dL Albumin/Globulin Ratio 1.0 (1.0-2.7) Urine Color Brown Urine Appearance Turbid Urine pH 7 (4.5-8.0) Urine Specific [place] 1.005 (1.005-1.035) Urine Protein 2+ (NEGATIVE) H Urine Glucose (UA) Negative (NEGATIVE) Urine Ketones Negative (NEGATIVE) Urine Occult Blood 5+ (NEGATIVE) H Urine Nitrite Positive (NEGATIVE) H Urine Bilirubin Negative (NEGATIVE) Urine Urobilinogen 1 MG/DL (0.0-1.0) H Urine Leukocyte Esterase 3+ (NEGATIVE) H Urine RBC 5-10 /HPF (0 - 2) H Urine WBC 15-20 /HPF (0 - 2) H Urine Squamous Epithelial Cells Occasional /LPF Urine Amorphous Sediment Few /LPF (NONE) H Urine Bacteria Many /HPF (NONE) H EKG Diagnostic Results Rate: normal Rhythm: NSR ST Segments: other - MAXINE noted in V1 V2 that were present on two previous EKGs , no reciprocal changes ASA given to the pt in ED: No Rhythm Strip Diag. Results EP Interpretation: yes Rhythm: NSR, no PVC's, no ectopy Chest X-Ray Diagnostic Results Chest X-Ray Diagnostic Results : Chest X-Ray Ordered: Yes # of Views/Limited/Complete: 1 View Indication: Other EP Interpretation: Yes Interpretation: no consolidation, no effusion, no pneumothorax, other - defib device seen L chest Impression: No acute disease Interpreting ER Provider: Electronically signed by Gemma Aguirre MD Last Vital Signs Date Time Temp Pulse Resp B/P (MAP) Pulse Ox O2 Delivery O2 Flow Rate FiO2 05/04/17 13:21 98.1 84 16 154/89 98 Room Air Disposition: ADMITTED INPATIENT Condition: Serious Gemma Aguirre M.D. May 04, 2017 14:04
[2017-05-04 14:06] VITALS: BP 139/69
[2017-05-04 14:19] LABS: BASOPHILS % (AUTO) 0.7 % (0.0-2.0); EOSINOPHILS % (AUTO) 1.7 % (0.0-3.0); LYMPHOCYTES % (AUTO) 15.7 % (20.0-45.0); MEAN CORPUSCULAR HEMOGLOBIN 28.7 PG (27.0-31.0); MEAN CORPUSCULAR HGB CONC 30.2 G/DL (32.0-36.0); MEAN CORPUSCULAR VOLUME 95 FL (80-99); MEAN PLATELET VOLUME 6.5 FL (6.5-10.1); MONOCYTES % (AUTO) 6.1 % (1.0-10.0); NEUTROPHILS % (AUTO) 75.9 % (45.0-75.0); PLATELET COUNT 272 K/UL (150-450); RED BLOOD COUNT 3.69 M/UL (4.20-5.40); RED CELL DISTRIBUTION WIDTH 16.7 % (11.6-14.8); WHITE BLOOD COUNT 6.7 K/UL (4.8-10.8)
[2017-05-04 14:28] LABS: ALANINE AMINOTRANSFERASE 8 U/L (3-33); ANION GAP 13 (5-15); ASPARTATE AMINO TRANSFERASE 19 U/L (5-40); CALCIUM 9.7 mg/dL (8.6-10.2); CARBON DIOXIDE 27 mEQ/L (20-30); CHLORIDE 102 mEQ/L (98-107); CREATININE 0.6 mg/dL (0.5-0.9); HEMOLYSIS 99; POTASSIUM 4.6 mEQ/L (3.4-4.9); SODIUM 142 mEQ/L (135-145); TOTAL PROTEIN 7.1 g/dL (6.6-8.7); TROPONIN I < 0.30 ng/mL (<=0.30)
[2017-05-04 14:38] LABS: CKMB < 1.5 ng/mL (< 3.8)
--- NOTE | 2017-05-04 15:15 | Diagnostic Imaging Report ---
Indication: Dyspnea Comparison: 12/27/16 A single view chest radiograph was obtained. Findings: Bones are osteopenic. Heart is enlarged. Aorta is ectatic. The left. Cholecystectomy clips, IVC filter and lumbar hardware partially noted. Impression: No acute cardiopulmonary disease
[2017-05-04 15:18] LABS: APPEARANCE,URINE TURBID; KETONES,URINE NEGATIVE (NEGATIVE); LEUKOCYTE ESTERASE ,URINE 3+ (NEGATIVE); NITRITE,URINE POSITIVE (NEGATIVE); PH,URINE 7 (4.5-8.0); PROTEIN,URINE 2+ (NEGATIVE); UROBILINOGEN,URINE 1 MG/DL (0.0-1.0)
[2017-05-04 15:30] LABS: AMORPHOUS SEDIMENT,UR FEW /LPF; BACTERIA,URINE MANY /HPF; SQUAMOUS EPITHELIAL CELL,UR OCCASIONAL /LPF (NONE/OCC); WBC,URINE 15-20 /HPF (0 - 2)
[2017-05-04] MEDS ORDERED: cefTRIAXone 1 GM in NS 55 ML IV ONE (15:45)
[2017-05-04 15:49] VITALS: BP 155/67
[2017-05-04 17:07] VITALS: BP 151/62
[2017-05-04 20:34] VITALS: BP 128/85
[2017-05-04] MEDS ORDERED: ALPRAZolam 0.25mg tab ORAL PRN (21:45)
[2017-05-04] MEDS ORDERED: Morphine Sulfate 2mg/ml Inj IVP PRN (21:45)
[2017-05-04] MEDS ORDERED: LORazepam Inj 2mg/ml 1ml IV PRN (21:45)
[2017-05-04] MEDS ORDERED: Mylanta II UD 30ml ORAL PRN (21:45)
[2017-05-04] MEDS ORDERED: Zolpidem 5mg tab ORAL PRN (22:00)
[2017-05-04 23:30] VITALS: BP 136/81
[2017-05-05 03:50] VITALS: BP 125/75
[2017-05-05] MEDS: NovoLOG Insulin Flexpen SUBQ SCH ×4 (06:30→20:39)
[2017-05-05 07:08] LABS: BASOPHILS % (AUTO) 0.2 % (0.0-2.0); EOSINOPHILS % (AUTO) 1.9 % (0.0-3.0); LYMPHOCYTES % (AUTO) 18.2 % (20.0-45.0); MEAN CORPUSCULAR HEMOGLOBIN 30.8 PG (27.0-31.0); MEAN CORPUSCULAR HGB CONC 32.1 G/DL (32.0-36.0); MEAN CORPUSCULAR VOLUME 96 FL (80-99); MEAN PLATELET VOLUME 6.7 FL (6.5-10.1); MONOCYTES % (AUTO) 7.7 % (1.0-10.0); PLATELET COUNT 195 K/UL (150-450); RED BLOOD COUNT 2.75 M/UL (4.20-5.40); RED CELL DISTRIBUTION WIDTH 17.4 % (11.6-14.8); WHITE BLOOD COUNT 6.5 K/UL (4.8-10.8)
[2017-05-05 07:42] LABS: ALANINE AMINOTRANSFERASE 7 U/L (3-33); ALBUMIN/GLOBULIN RATIO 1.2 (1.0-2.7); ANION GAP 12 (5-15); ASPARTATE AMINO TRANSFERASE 12 U/L (5-40); CARBON DIOXIDE 25 mEQ/L (20-30); CHLORIDE 107 mEQ/L (98-107); CHOLESTEROL 120 mg/dL (< 200); CHOLESTEROL/HDL RATIO 2.2 (3.3-4.4); CREATININE 0.5 mg/dL (0.5-0.9); HEMOLYSIS 4; LDL CHOLESTEROL (CALC.) 44 mg/dL (60-99); POTASSIUM 3.5 mEQ/L (3.4-4.9); SODIUM 144 mEQ/L (135-145); TOTAL PROTEIN 5.8 g/dL (6.6-8.7)
[2017-05-05 08:10] VITALS: BP 137/76
[2017-05-05] MEDS: Sertraline 100mg tab ORAL SCH (09:28)
[2017-05-05] MEDS: Heparin 5000 units/ml inj SUBQ SCH ×2 (09:32→20:39)
[2017-05-05 11:44] VITALS: BP 128/66
[2017-05-05] MEDS ORDERED: Vancomycin 1 GM in D5W 275 ML IVPB SCH (13:15)
--- NOTE | 2017-05-05 14:13 | Infectious Diseases Prog Note ---
Assessment/Plan Problems: (1) UTI (urinary tract infection) Assessment & Plan: will start ceftriaxon empirically, pending urine culture results (2) Sepsis Assessment & Plan: with gram positive cocci , await identification and sensitivity, continue vancomycin for now , and monitor trough (3) Altered mental status Assessment & Plan: due to the above, improving, continue tele monitor and neuro check (4) Cerebral vascular disease Assessment & Plan: old, recommend PT/OT (5) Sacral wound Assessment & Plan: not infected, continue off loading and local care (6) Diabetes mellitus Assessment & Plan: recommend tight glycemic control to keep blood glucose between 80-120 Subjective Allergies: Coded Allergies: LATEX (Unverified Allergy, Mild, Rash, 09/03/14) QUININE (Unverified Allergy, Unknown, Rash Hives, 05/23/15) Quinine Sulfate Objective Vital Signs Last 24 Hour Vital Signs Date Time Temp Pulse Resp B/P (MAP) Pulse Ox O2 Delivery O2 Flow Rate FiO2 05/05/17 11:44 97.9 87 20 128/66 95 Room Air 05/05/17 09:27 85 137/76 05/05/17 08:10 98.2 85 20 137/76 95 Room Air 05/05/17 03:50 97.5 100 20 125/75 95 Room Air 05/04/17 23:30 99.3 103 20 136/81 97 Room Air 05/04/17 20:34 97.9 80 20 128/85 97 Room Air 05/04/17 17:35 98.2 78 15 151/62 100 Room Air 05/04/17 17:07 98.2 78 15 151/62 100 Room Air 05/04/17 15:49 98.1 74 17 155/67 100 Room Air Height (Feet): 5 Height (Inches): 4.00 Weight (Pounds): 130 Microbiology Date/Time Source Procedure Growth Status 05/04/17 14:00 Blood Blood Culture - Preliminary Resulted Laboratory Tests Test 05/04/17 14:40 05/05/17 05:45 Urine Color Brown Urine Appearance Turbid Urine pH 7 (4.5-8.0) Urine Specific [place] 1.005 (1.005-1.035) Urine Protein 2+ (NEGATIVE) H Urine Glucose (UA) Negative (NEGATIVE) Urine Ketones Negative (NEGATIVE) Urine Occult Blood 5+ (NEGATIVE) H Urine Nitrite Positive (NEGATIVE) H Urine Bilirubin Negative (NEGATIVE) Urine Urobilinogen 1 MG/DL (0.0-1.0) H Urine Leukocyte Esterase 3+ (NEGATIVE) H Urine RBC 5-10 /HPF (0 - 2) H Urine WBC 15-20 /HPF (0 - 2) H Urine Squamous Epithelial Cells Occasional /LPF Urine Amorphous Sediment Few /LPF (NONE) H Urine Bacteria Many /HPF (NONE) H White Blood Count 6.5 K/UL (4.8-10.8) Red Blood Count 2.75 M/UL (4.20-5.40) L Hemoglobin 8.5 G/DL (12.0-16.0) L Hematocrit 26.4 % (37.0-47.0) L Mean Corpuscular Volume 96 FL (80-99) Mean Corpuscular Hemoglobin 30.8 PG (27.0-31.0) Mean Corpuscular Hemoglobin Concent 32.1 G/DL (32.0-36.0) Red Cell Distribution Width 17.4 % (11.6-14.8) H Platelet Count 195 K/UL (150-450) Mean Platelet Volume 6.7 FL (6.5-10.1) Neutrophils (%) (Auto) 72.0 % (45.0-75.0) Lymphocytes (%) (Auto) 18.2 % (20.0-45.0) L Monocytes (%) (Auto) 7.7 % (1.0-10.0) Eosinophils (%) (Auto) 1.9 % (0.0-3.0) Basophils (%) (Auto) 0.2 % (0.0-2.0) Sodium Level 144 mEQ/L (135-145) Potassium Level 3.5 mEQ/L (3.4-4.9) Chloride Level 107 mEQ/L (98-107) Carbon Dioxide Level 25 mEQ/L (20-30) Anion Gap 12 (5-15) Blood Urea Nitrogen 11 mg/dL (7-23) Creatinine 0.5 mg/dL (0.5-0.9) Estimat Glomerular Filtration Rate mL/min (>60) Glucose Level 77 mg/dL (74-106) Calcium Level 9.0 mg/dL (8.6-10.2) Total Bilirubin < 0.2 mg/dL (0.0-1.2) Aspartate Amino Transf (AST/SGOT) 12 U/L (5-40) Alanine Aminotransferase (ALT/SGPT) 7 U/L (3-33) Alkaline Phosphatase 95 U/L (35-104) Total Protein 5.8 g/dL (6.6-8.7) L Albumin 3.2 g/dL (3.5-5.2) L Globulin 2.6 g/dL Albumin/Globulin Ratio 1.2 (1.0-2.7) Triglycerides Level 103 mg/dL (< 150) Cholesterol Level 120 mg/dL (< 200) LDL Cholesterol 44 mg/dL (60-99) L HDL Cholesterol 55 mg/dL (> 60) Cholesterol/HDL Ratio 2.2 (3.3-4.4) L Current Medications Medications (Trade) Dose Ordered Sig/Don Route PRN Reason Start Time Stop Time Status Last Admin Dose Admin Acetaminophen (Tylenol) 650 mg Q4H PRN ORAL T>100.5 05/04/17 21:45 06/03/17 21:44 Al Hydroxide/Mg Hydroxide (Mylanta II) 30 ml Q6H PRN ORAL dyspepsia 05/04/17 21:45 06/03/17 21:44 Alprazolam (Xanax) 0.25 mg Q6H PRN ORAL For Anxiety 05/04/17 21:45 05/11/17 21:44 Carvedilol (Coreg) 3.125 mg Q12HR ORAL 05/05/17 09:00 06/04/17 08:59 05/05/17 09:27 Ceftriaxone Sodium 1 gm/ Dextrose 55 ml @ 110 mls/hr Q24H IVPB 05/05/17 14:15 05/12/17 14:14 UNV Clopidogrel Bisulfate (Plavix) 75 mg DAILY ORAL 05/05/17 09:00 06/04/17 08:59 05/05/17 09:28 Dextrose (Dextrose 50%) STAT PRN IV Hypoglycemia 05/04/17 21:45 06/03/17 21:44 Heparin Sodium (Porcine) (Heparin 5000 units/ml) 5,000 units EVERY 12 HOURS SUBQ 05/05/17 09:00 06/04/17 08:59 05/05/17 09:32 Insulin Aspart (NovoLOG) BEFORE MEALS AND HS SUBQ 05/05/17 06:30 06/04/17 06:29 Lorazepam (Ativan 2mg/ml 1ml) 0.5 mg Q4H PRN IV Breakthrough anxiety/agitation 05/04/17 21:45 05/11/17 21:44 Mirtazapine (Remeron) 15 mg BEDTIME ORAL 05/04/17 23:00 06/03/17 22:59 05/04/17 23:02 Morphine Sulfate (Morphine Sulfate) 1 mg Q4H PRN IVP PAIN 4-10 05/04/17 21:45 05/11/17 21:44 Ondansetron HCl (Zofran) 4 mg Q6H PRN IVP Nausea & Vomiting 05/04/17 21:45 06/03/17 21:44 Polyethylene Glycol (Miralax) 17 gm HSPRN PRN ORAL Constipation 05/04/17 21:45 06/03/17 21:44 Sertraline HCl (Zoloft) 100 mg DAILY ORAL 05/05/17 09:00 06/04/17 08:59 05/05/17 09:28 Sodium Chloride 1,000 ml @ 125 mls/hr Q8H IV 05/04/17 14:45 06/03/17 14:44 05/05/17 06:51 Vancomycin HCl 1 gm/Dextrose 275 ml @ 183.708 mls/hr ONCE ONCE IVPB 05/05/17 14:30 05/05/17 15:59 Vancomycin HCl 1 gm/Dextrose 275 ml @ 183.708 mls/hr Q24H IVPB 05/05/17 13:15 05/10/17 13:14 UNV Zolpidem Tartrate (Ambien) 5 mg HSPRN PRN ORAL Insomnia 05/04/17 22:00 05/11/17 21:59 Annie Lilly M.D. May 05, 2017 14:13
--- NOTE | 2017-05-05 14:14 | History & Physical ---
History and Physical History & Physicial Dictated for Int Med-Dr Jones no. [id number] DELFIN MARTINEZ May 05, 2017 14:14
--- NOTE | 2017-05-05 14:22 | Consultation ---
History of Present Illness General Date patient seen: May 05, 2017 Time patient seen: 13:00 Chief Complaint: Altered Level of Consciousness Referring physician: dr Jones Reason for Consultation: inpatient management Present Illness HPI 76 y/old female with PMH of CVA, systolic CHF, cardiomyopathy, AICD, diabetes, hyperlipidemia , HTN, severe anemia (no transfusions, gets Epogen shots), history of DVT( with IVC filter), bedbound, presented with episode of altered mental status. Per patient's daughter, patient had about 2 hours of altered mental status, witnessed by her daughter. In am patient had multiple episodes of watery diarrhea, no blood patient denied nausea, vomiting c/o abdominal pain daughter stated that patient was weak,, poorly responsive and decided to call paramedics to bring her here for evaluation Patient slowly came back to her baseline after few hours denied fevers, chills denied any head trauma, injury, concussion Workup in ED revealed stable VS, no fever UA grossly positive for UTI no leukocytosis, anemia troponin negative pro BNP 1017 CXR no acute cardiopulmonary disease ECG with NSR - MAXINE noted in V1 V2 that were present on two previous EKG patient was admitted for further management Allergies: Coded Allergies: LATEX (Unverified Allergy, Mild, Rash, 09/03/14) QUININE (Unverified Allergy, Unknown, Rash Hives, 05/23/15) Quinine Sulfate Medication History Scheduled Ascorbic Acid* (Vitamin C*), 500 MG ORAL THREE TIMES A DAY, (Reported) Atorvastatin Calcium* (Lipitor*), 80 MG ORAL BEDTIME, (Reported) Carvedilol* (Carvedilol*), 3.125 MG ORAL BID, (Reported) Clopidogrel* (Clopidogrel*), 75 MG ORAL DAILY, (Reported) Donepezil Hcl* (Donepezil Hcl*), 5 MG ORAL DAILY, (Reported) Epoetin Barak (Procrit), 10,000 UNIT SUBQ ONCE A WEEK, (Reported) Epoetin Barak (Procrit), 10,000 UNIT SUBQ Q48hr, (Reported) Ferrous Sulfate (Feosol), 325 MG PO THREE TIMES A DAY, (Reported) Folic Acid* (Folic Acid*), 1 MG ORAL DAILY, (Reported) Iron Sucrose Complex (Venofer), 100 MG IV QHS, (Reported) Losartan Potassium* (Cozaar*), 50 MG ORAL DAILY, (Reported) Metformin Hcl* (Metformin Hcl*), 500 MG ORAL TWICE A DAY, (Reported) Mirtazapine* (Remeron*), 15 MG ORAL BEDTIME, (Reported) Multivitamin With Minerals (Multivitamins With Minerals*), 1 TAB ORAL DAILY, ( Reported) Omeprazole (Omeprazole), 20 MG ORAL DAILY, (Reported) Pantoprazole* (Protonix*), 40 MG ORAL DAILY, (Reported) Sertraline Hcl* (Zoloft*), 100 MG ORAL DAILY, (Reported) Scheduled PRN Acetaminophen (Acetaminophen), 650 MG ORAL Q6H PRN for Prn Headache/Temp > 101, (Reported) Alprazolam* (Xanax*), 0.25 MG ORAL EVERY 6 HOURS PRN for For Anxiety, (Reported) Bisacodyl* (Dulcolax*), 5 MG ORAL DAILY PRN for Constipation, (Reported) Hydrocodone Bit/Acetaminophen 5-325* ([place] 5-325 Tablet*), 1 TAB ORAL Q6HR PRN for For Pain, (Reported) Hydrocodone Bit/Acetaminophen 5-325* ([place] 5-325 Tablet*), 1 TAB ORAL Q8HR PRN for For Pain, (Reported) Lactulose (Lactulose*), 20 ML ORAL THREE TIMES A DAY PRN for PRN, (Reported) Ondansetron (Zofran), 4 MG ORAL Q6H PRN for Nausea & Vomiting, (Reported) Temazepam (Temazepam*), 15 MG ORAL BEDTIME PRN for Insomnia, (Reported) Patient History Healthcare decision maker Tanya Heath Resuscitation status Full Code Advanced Directive on File Past Medical/Surgical History Past Medical/Surgical History: (1) ICD (implantable cardioverter-defibrillator) in place (2) DVT (deep venous thrombosis) (3) Symptomatic anemia (4) ST segment abnormality (5) CVA (cerebrovascular accident) (6) CAD (coronary artery disease) (7) CHF (congestive heart failure) (8) Diabetes mellitus (9) Hypertension (10) Hypercholesteremia (11) gastrits (12) Anemia Review of Systems Constitutional: Reports: weakness ENT: Reports: mouth pain Gastrointestinal: Reports: see HPI Genitourinary: Reports: no symptoms Musculoskeletal: Reports: no symptoms Skin: Reports: no symptoms Psychiatric: Reports: no symptoms Neurological: Reports: see HPI Endocrine: Reports: no symptoms Hematologic/Lymphatic: Reports: see HPI Physical Exam General Appearance: alert - responsive, other - bed bound Lines, tubes and drains: peripheral HEENT: normocephalic, atraumatic, anicteric Neck: supple Respiratory/Chest: chest wall non-tender, lungs clear, normal breath sounds, no respiratory distress, other - Left upper chest -AICD Cardiovascular/Chest: normal rate, regular rhythm Abdomen: normal bowel sounds, non tender, soft Extremities: other - L side hemiparesis Neurologic: abnormal gait - bedridden , alert, responsive, other - left hemiparesis Musculoskeletal: atrophy - BLE Last 24 Hour Vital Signs Date Time Temp Pulse Resp B/P (MAP) Pulse Ox O2 Delivery O2 Flow Rate FiO2 05/05/17 11:44 97.9 87 20 128/66 95 Room Air 05/05/17 09:27 85 137/76 05/05/17 08:10 98.2 85 20 137/76 95 Room Air 05/05/17 03:50 97.5 100 20 125/75 95 Room Air 05/04/17 23:30 99.3 103 20 136/81 97 Room Air 05/04/17 20:34 97.9 80 20 128/85 97 Room Air 05/04/17 17:35 98.2 78 15 151/62 100 Room Air 05/04/17 17:07 98.2 78 15 151/62 100 Room Air 05/04/17 15:49 98.1 74 17 155/67 100 Room Air 05/04/17 14:06 98.1 83 20 139/69 98 Room Air Intake and Output 05/05/17 05/06/17 19:00 07:00 Intake Total 625 ml Balance 625 ml Intake IV Total 625 ml Laboratory Tests Test 05/04/17 14:40 05/05/17 05:45 Urine Color Brown Urine Appearance Turbid Urine pH 7 (4.5-8.0) Urine Specific [place] 1.005 (1.005-1.035) Urine Protein 2+ (NEGATIVE) H Urine Glucose (UA) Negative (NEGATIVE) Urine Ketones Negative (NEGATIVE) Urine Occult Blood 5+ (NEGATIVE) H Urine Nitrite Positive (NEGATIVE) H Urine Bilirubin Negative (NEGATIVE) Urine Urobilinogen 1 MG/DL (0.0-1.0) H Urine Leukocyte Esterase 3+ (NEGATIVE) H Urine RBC 5-10 /HPF (0 - 2) H Urine WBC 15-20 /HPF (0 - 2) H Urine Squamous Epithelial Cells Occasional /LPF Urine Amorphous Sediment Few /LPF (NONE) H Urine Bacteria Many /HPF (NONE) H White Blood Count 6.5 K/UL (4.8-10.8) Red Blood Count 2.75 M/UL (4.20-5.40) L Hemoglobin 8.5 G/DL (12.0-16.0) L Hematocrit 26.4 % (37.0-47.0) L Mean Corpuscular Volume 96 FL (80-99) Mean Corpuscular Hemoglobin 30.8 PG (27.0-31.0) Mean Corpuscular Hemoglobin Concent 32.1 G/DL (32.0-36.0) Red Cell Distribution Width 17.4 % (11.6-14.8) H Platelet Count 195 K/UL (150-450) Mean Platelet Volume 6.7 FL (6.5-10.1) Neutrophils (%) (Auto) 72.0 % (45.0-75.0) Lymphocytes (%) (Auto) 18.2 % (20.0-45.0) L Monocytes (%) (Auto) 7.7 % (1.0-10.0) Eosinophils (%) (Auto) 1.9 % (0.0-3.0) Basophils (%) (Auto) 0.2 % (0.0-2.0) Sodium Level 144 mEQ/L (135-145) Potassium Level 3.5 mEQ/L (3.4-4.9) Chloride Level 107 mEQ/L (98-107) Carbon Dioxide Level 25 mEQ/L (20-30) Anion Gap 12 (5-15) Blood Urea Nitrogen 11 mg/dL (7-23) Creatinine 0.5 mg/dL (0.5-0.9) Estimat Glomerular Filtration Rate mL/min (>60) Glucose Level 77 mg/dL (74-106) Calcium Level 9.0 mg/dL (8.6-10.2) Total Bilirubin < 0.2 mg/dL (0.0-1.2) Aspartate Amino Transf (AST/SGOT) 12 U/L (5-40) Alanine Aminotransferase (ALT/SGPT) 7 U/L (3-33) Alkaline Phosphatase 95 U/L (35-104) Total Protein 5.8 g/dL (6.6-8.7) L Albumin 3.2 g/dL (3.5-5.2) L Globulin 2.6 g/dL Albumin/Globulin Ratio 1.2 (1.0-2.7) Triglycerides Level 103 mg/dL (< 150) Cholesterol Level 120 mg/dL (< 200) LDL Cholesterol 44 mg/dL (60-99) L HDL Cholesterol 55 mg/dL (> 60) Cholesterol/HDL Ratio 2.2 (3.3-4.4) L Microbiology Date/Time Source Procedure Growth Status 05/04/17 14:00 Blood Blood Culture - Preliminary Resulted Height (Feet): 5 Height (Inches): 4.00 Weight (Pounds): 130 Medications Current Medications Medications (Trade) Dose Ordered Sig/Don Route PRN Reason Start Time Stop Time Status Last Admin Dose Admin Acetaminophen (Tylenol) 650 mg Q4H PRN ORAL T>100.5 05/04/17 21:45 06/03/17 21:44 Al Hydroxide/Mg Hydroxide (Mylanta II) 30 ml Q6H PRN ORAL dyspepsia 05/04/17 21:45 06/03/17 21:44 Alprazolam (Xanax) 0.25 mg Q6H PRN ORAL For Anxiety 05/04/17 21:45 05/11/17 21:44 Carvedilol (Coreg) 3.125 mg Q12HR ORAL 05/05/17 09:00 06/04/17 08:59 05/05/17 09:27 Clopidogrel Bisulfate (Plavix) 75 mg DAILY ORAL 05/05/17 09:00 06/04/17 08:59 05/05/17 09:28 Dextrose (Dextrose 50%) STAT PRN IV Hypoglycemia 05/04/17 21:45 06/03/17 21:44 Heparin Sodium (Porcine) (Heparin 5000 units/ml) 5,000 units EVERY 12 HOURS SUBQ 05/05/17 09:00 06/04/17 08:59 05/05/17 09:32 Insulin Aspart (NovoLOG) BEFORE MEALS AND HS SUBQ 05/05/17 06:30 06/04/17 06:29 Lorazepam (Ativan 2mg/ml 1ml) 0.5 mg Q4H PRN IV Breakthrough anxiety/agitation 05/04/17 21:45 05/11/17 21:44 Mirtazapine (Remeron) 15 mg BEDTIME ORAL 05/04/17 23:00 06/03/17 22:59 05/04/17 23:02 Morphine Sulfate (Morphine Sulfate) 1 mg Q4H PRN IVP PAIN 4-10 05/04/17 21:45 05/11/17 21:44 Ondansetron HCl (Zofran) 4 mg Q6H PRN IVP Nausea & Vomiting 05/04/17 21:45 06/03/17 21:44 Polyethylene Glycol (Miralax) 17 gm HSPRN PRN ORAL Constipation 05/04/17 21:45 06/03/17 21:44 Sertraline HCl (Zoloft) 100 mg DAILY ORAL 05/05/17 09:00 06/04/17 08:59 05/05/17 09:28 Sodium Chloride 1,000 ml @ 125 mls/hr Q8H IV 05/04/17 14:45 06/03/17 14:44 05/05/17 06:51 Vancomycin HCl 1 gm/Dextrose 275 ml @ 183.708 mls/hr ONCE ONCE IVPB 05/05/17 14:30 05/05/17 15:59 Vancomycin HCl 1 gm/Dextrose 275 ml @ 183.708 mls/hr Q24H IVPB 05/05/17 13:15 05/10/17 13:14 UNV Zolpidem Tartrate (Ambien) 5 mg HSPRN PRN ORAL Insomnia 05/04/17 22:00 05/11/17 21:59 Assessment/Plan Assessment/Plan ASSESSMENT acute encephalopathy likely due to infectious process dehydration diarrhea possible bacteremia UTI DM type 2 HTN SHF ( EF 30-35%) Cardiomyopathy AICD Hx of CVA wit L hemiparesis Hx of DVT with IVC filter anemia functional quadriplegia PLAN OF CARE [facility] floor dc IVF, patient with hx of SHF ( last EF 30-35%) received IVF in ED and on the floor acute encephalopathy likely due to dehydration check stool C dif UA + UTI fup with urine and blood cx, preliminary blood cx + GPC in clusters empiric abx ID consult - per PMD discretion CXR negative O2 HHN prn BP management with BB BS management with SS of insulin consider cardio eval - per PMD discretion for medical management of CHF, BP will allow to start CHELSEA monitor counts , patient will deny any blood transfusion continue Plavix case discussed and evaluated by supervising physician Nnamdi Boyle)Nohemi NP May 05, 2017 14:22
[2017-05-05] MEDS ORDERED: Vancomycin 1gm in D5W 275ml IVPB ONE (14:30)
--- NOTE | 2017-05-05 15:21 | Cardiac Electrophysiology PN ---
Subjective Subjective [id number] CHF, CAD, BS ICD, HTN Objective Last 24 Hour Vital Signs Date Time Temp Pulse Resp B/P (MAP) Pulse Ox O2 Delivery O2 Flow Rate FiO2 05/05/17 11:44 97.9 87 20 128/66 95 Room Air 05/05/17 09:27 85 137/76 05/05/17 08:10 98.2 85 20 137/76 95 Room Air 05/05/17 03:50 97.5 100 20 125/75 95 Room Air 05/04/17 23:30 99.3 103 20 136/81 97 Room Air 05/04/17 20:34 97.9 80 20 128/85 97 Room Air 05/04/17 17:35 98.2 78 15 151/62 100 Room Air 05/04/17 17:07 98.2 78 15 151/62 100 Room Air 05/04/17 15:49 98.1 74 17 155/67 100 Room Air Intake and Output 05/05/17 05/06/17 19:00 07:00 Intake Total 625 ml Balance 625 ml Intake IV Total 625 ml Laboratory Tests Test 05/05/17 05:45 White Blood Count 6.5 K/UL (4.8-10.8) Red Blood Count 2.75 M/UL (4.20-5.40) L Hemoglobin 8.5 G/DL (12.0-16.0) L Hematocrit 26.4 % (37.0-47.0) L Mean Corpuscular Volume 96 FL (80-99) Mean Corpuscular Hemoglobin 30.8 PG (27.0-31.0) Mean Corpuscular Hemoglobin Concent 32.1 G/DL (32.0-36.0) Red Cell Distribution Width 17.4 % (11.6-14.8) H Platelet Count 195 K/UL (150-450) Mean Platelet Volume 6.7 FL (6.5-10.1) Neutrophils (%) (Auto) 72.0 % (45.0-75.0) Lymphocytes (%) (Auto) 18.2 % (20.0-45.0) L Monocytes (%) (Auto) 7.7 % (1.0-10.0) Eosinophils (%) (Auto) 1.9 % (0.0-3.0) Basophils (%) (Auto) 0.2 % (0.0-2.0) Sodium Level 144 mEQ/L (135-145) Potassium Level 3.5 mEQ/L (3.4-4.9) Chloride Level 107 mEQ/L (98-107) Carbon Dioxide Level 25 mEQ/L (20-30) Anion Gap 12 (5-15) Blood Urea Nitrogen 11 mg/dL (7-23) Creatinine 0.5 mg/dL (0.5-0.9) Estimat Glomerular Filtration Rate mL/min (>60) Glucose Level 77 mg/dL (74-106) Calcium Level 9.0 mg/dL (8.6-10.2) Total Bilirubin < 0.2 mg/dL (0.0-1.2) Aspartate Amino Transf (AST/SGOT) 12 U/L (5-40) Alanine Aminotransferase (ALT/SGPT) 7 U/L (3-33) Alkaline Phosphatase 95 U/L (35-104) Total Protein 5.8 g/dL (6.6-8.7) L Albumin 3.2 g/dL (3.5-5.2) L Globulin 2.6 g/dL Albumin/Globulin Ratio 1.2 (1.0-2.7) Triglycerides Level 103 mg/dL (< 150) Cholesterol Level 120 mg/dL (< 200) LDL Cholesterol 44 mg/dL (60-99) L HDL Cholesterol 55 mg/dL (> 60) Cholesterol/HDL Ratio 2.2 (3.3-4.4) L Microbiology Date/Time Source Procedure Growth Status 05/04/17 14:00 Blood Blood Culture - Preliminary Resulted MARICRUZ DURON May 05, 2017 15:21
[2017-05-05] MEDS: cefTRIAXone 1 GM in D5W 55 ML IVPB SCH (16:00)
[2017-05-05 16:01] VITALS: BP 138/75
[2017-05-05 17:42] LABS: FERRITIN 290 ng/mL (13-150)
[2017-05-05 18:09] LABS: HEMOLYSIS 1; IRON 35 ug/dL (37-145); TOTAL IRON BINDING CAPACITY 190 ug/dL (250-400)
[2017-05-05 20:00] VITALS: BP 136/81
[2017-05-05] MEDS: Iron Sucrose 100 MG in NS 55 ML IVPB SCH (20:38)
[2017-05-06 00:38] VITALS: BP 132/77
[2017-05-06] MEDS: Vancomycin 500mg/D5W 110ml IVPB SCH ×4 (01:08→13:42)
[2017-05-06 04:57] VITALS: BP 125/80
--- NOTE | 2017-05-06 06:00 | History and Physical Report ---
DATE OF ADMISSION: 05/04/2017 CHIEF COMPLAINT: The patient is a 76-year-old female, who presents with chief complaint of altered mental status. HISTORY OF PRESENT ILLNESS: The patient was admitted to [facility] in January 2017 for distal right femur fracture. Please see history and physical and discharge summary dictated at that time. According to the patient's daughter, the patient had several episodes of watery diarrhea yesterday, 05/04/2017. The patient's daughter then left. The patient's daughter returned. The patient was found to be more altered than previously. The [facility]. The patient was admitted for diarrhea and altered mental status. PAST MEDICAL HISTORY: Significant for 1. Right distal femur fracture as above. 2. Severe iron-deficiency anemia. The patient is a Pentecostal and has refused blood transfusions in the past. 3. History of cerebrovascular accident. 4. Left hemiparesis. 5. Coronary artery disease, status post stent placement in 2014. 6. Congestive heart failure. 7. Diabetes type 2. 8. Hypertension. 9. Hypercholesterolemia. 10. History of deep venous thrombosis of the left leg, status post IVC filter placement. 11. History of acute DVT of the right leg in January 2017. 12. Automatic implantable cardioverter-defibrillator in situ. PAST SURGICAL HISTORY: Significant for 1. Cholecystectomy. 2. Cervical spine fusion. 3. Lumbar spine surgery. 4. Bilateral knee arthroplasty. 5. Carotid stenting for carotid stenosis. 6. AICD placement. CURRENT MEDICATIONS: 1. Xanax 0.25 mg one tablet p.o. q.6 h. p.r.n. 2. Tylenol 650 mg p.o. q.6 h. p.r.n. 3. Vitamin C 500 mg one tablet p.o. three times daily. 4. Atorvastatin 80 mg one tablet p.o. at bedtime. 5. Carvedilol 3.125 mg one tablet p.o. twice daily. 6. Plavix 75 mg one tablet p.o. daily. 7. Aricept 5 mg one tablet p.o. at bedtime. 8. Erythropoietin 10,000 units subcutaneously every weekly. 9. Iron sulfate 325 mg one tablet p.o. three times daily. 10. Folic acid 1 mg one tablet p.o. daily. 11. [place] 5/325 mg one tablet p.o. q.6 h. p.r.n. 12. Lactulose 20 gram p.o. three times daily. 13. Cozaar 50 mg one tablet p.o. daily. 14. Metformin 500 mg one tablet p.o. twice daily. 15. Remeron 15 mg one tablet p.o. at bedtime. 16. Multivitamin p.o. daily. 17. Omeprazole 20 mg one tablet p.o. daily. 18. Zofran 4 mg one tablet p.o. q.6 h. p.r.n. 19. Protonix 40 mg one tablet p.o. daily. 20. Zoloft 100 mg one tablet p.o. daily. 21. Restoril 15 mg one tablet p.o. at bedtime p.r.n. ALLERGIES: Latex and quinine. SOCIAL HISTORY: The patient is a Pentecostal. The patient is . The patient denies tobacco or alcohol use. REVIEW OF SYSTEMS: Constitutional: The patient denies weight loss or weight gain. The patient denies fevers or chills. HEENT: The patient denies ear or throat pain. The patient denies headache. Cardiovascular: The patient denies palpitations or chest pain. Chest: The patient denies wheeze or shortness of breath. Abdomen: The patient complains of watery diarrhea as above. The patient denies nausea, vomiting, or constipation. Genitourinary: The patient denies dysuria or increased frequency of urination. Neuromuscular: The patient denies seizures or generalized weakness. PHYSICAL EXAMINATION: GENERAL: The patient is well developed and well nourished, thin-appearing female, in no apparent distress. VITAL SIGNS: Temperature 99.3 degrees, respirations 20, pulse 103, and blood pressure 136/81. HEENT: Eyes, pupils equal and responsive to light and accommodation. Extraocular movements are intact. NECK: Supple without lymphadenopathy. CHEST: Lungs are clear to auscultation bilaterally without wheezes or rales. CARDIOVASCULAR: Regular rate. S1 and S2 are normal without murmurs, rubs, or gallops. ABDOMEN: Soft, nontender, and nondistended. Positive bowel sounds. No evidence of hepatosplenomegaly. Currently, no rebound or guarding noted. EXTREMITIES: Negative for clubbing, cyanosis, or edema. RECTAL/GENITAL: Refused. NEUROLOGIC: Cranial nerves II through XII are grossly intact without focal deficits. Motor strength is 5/5 bilaterally. Deep tendon reflexes are 2+ plantar. LABORATORY AND DIAGNOSTIC DATA: WBC 6.7, hemoglobin 10.6, hematocrit 35.1, and platelets 272,000. Sodium 142, potassium 4.6, chloride 102, CO2 of 27, BUN 11, creatinine 0.6, and glucose 84. BNP elevated at 1017. Troponin less than 0.3. ASSESSMENT: This is a 76-year-old female with 1. Altered mental status. 2. Diarrhea. 3. History of right femur fracture. 4. Severe iron-deficiency anemia. 5. History of cerebrovascular accident. 6. Left hemiparesis. 7. Coronary artery disease. 8. Congestive heart failure. 9. Diabetes type 2. 10. Hypertension. 11. Hypercholesterolemia. 12. Deep venous thrombosis of the bilateral lower extremities. 13. Automatic implanted cardioverter-defibrillator placement in situ. TREATMENT: 1. Altered mental status. This may be secondary to hypovolemia secondary to diarrhea. The patient is currently at baseline. The patient is currently receiving intravenous fluids. Stool cultures are pending. We will follow recommendations of Infectious Diseases. 2. Right femur fracture. This has been evaluated previously in January [address] Sinha. Right femur fracture is nonsurgical. 3. Severe iron-deficiency anemia. Continue iron sulfate as above. 4. Cerebrovascular accident. The patient is status post cerebrovascular accident. The patient has a left hemiparesis. Occupational and physical therapy evaluation pending. 5. Coronary artery disease/congestive heart failure. A Cardiology consultation will be obtained with Dr. Charly Arora. 6. Diabetes type 2. The patient has been started on a NovoLog sliding scale. 7. Hypertension. The patient is currently on Coreg 3.125 mg p.o. daily. 8. Hypercholesterolemia. Continue Lipitor as above. 9. Deep venous thrombosis of the bilateral lower extremities. The patient is status post IVC filter placement. 10. Automatic implanted cardioverter-defibrillator in situ. Lorne Rios M.D. DR: CLIFFORD JOB#: [id number] CC:
[2017-05-06] MEDS: NovoLOG Insulin Flexpen SUBQ SCH ×4 (06:01→20:58)
[2017-05-06 07:35] LABS: BASOPHILS % (AUTO) 0.3 % (0.0-2.0); EOSINOPHILS % (AUTO) 2.3 % (0.0-3.0); MEAN CORPUSCULAR HEMOGLOBIN 29.8 PG (27.0-31.0); MEAN CORPUSCULAR VOLUME 96 FL (80-99); MEAN PLATELET VOLUME 6.2 FL (6.5-10.1); MONOCYTES % (AUTO) 11.5 % (1.0-10.0); NEUTROPHILS % (AUTO) 65.9 % (45.0-75.0); PLATELET COUNT 189 K/UL (150-450); RED BLOOD COUNT 2.77 M/UL (4.20-5.40); RED CELL DISTRIBUTION WIDTH 16.8 % (11.6-14.8); WHITE BLOOD COUNT 4.9 K/UL (4.8-10.8)
--- NOTE | 2017-05-06 07:45 | Consultation ---
DATE OF CONSULTATION: INFECTIOUS DISEASES CONSULTATION REQUESTING PHYSICIAN: Lorne Rios M.D. REASON FOR CONSULTATION: Sepsis with gram-positive cocci and urine infection, recommendation for antibiotics therapy. HISTORY OF PRESENT ILLNESS: The patient is a 76-year-old female with history of CVA, CHF, diabetes, DVT, and severe anemia, who is bedbound, presented to the hospital from rehabilitation center for altered mental status. As per daughter, the patient had multiple episodes of altered mental status. She could barely open her eyes and answer question when she was checking on her at the rehabilitation facility. She did not have any fever or chills, but had multiple episodes of watery diarrhea. In the emergency room, the patient had extensive workup including chest x-ray, which showed no acute infiltration. Urinalysis showed evidence of infection. The patient received one dose of ceftriaxone in the emergency room and she was started on vancomycin by the admitting team and next day her blood culture was growing gram-positive cocci. So, I was consulted by the primary provider for antibiotics treatment and further management. As of note, the patient is a poor historian, could not provide me with good history. History was mainly obtained from the medical records and nursing staff. PAST MEDICAL HISTORY: Significant for coronary artery disease, status post ICD, hypertension, asthma, diabetes type 2, GERD, CVA with left hemiparesis, and dementia. PAST SURGICAL HISTORY: She had cardiac stent in 2015 and ICD placement in the left chest. ALLERGIES: She is allergic to latex and quinine. MEDICATIONS: The patient is currently on vancomycin by the admitting team and she received ceftriaxone in the emergency room. For rest of her medications, please refer to [facility]. FAMILY HISTORY: Noncontributory. SOCIAL HISTORY: The patient denies using any drugs, tobacco, or alcohol. Lives at the rehabilitation currently. REVIEW OF SYSTEMS: Unable to obtain at this point, the patient is a poor historian, cannot provide any history. PHYSICAL EXAMINATION: VITAL SIGNS: Temperature 97.9, pulse 87, respirations 20, and blood pressure 128/66. Saturation is 95% on room air. GENERAL: Elderly female, up in bed, awake, alert, and oriented x2, not in distress with left hemiparesis. HEENT: Normocephalic and atraumatic. Pupils are reactive to light, equal. Pale sclerae. Moist oral mucosa. No exudate or thrush. NECK: Supple. No lymphadenopathy. CARDIOVASCULAR: Regular rate and rhythm. S1 and S2 normal. No murmur. No gallop. LUNGS: Clear bilaterally. Diminished breathing sound at the bases. No wheezing or rhonchi. ABDOMEN: Soft, nontender, and nondistended. Positive bowel sounds. No hepatosplenomegaly. No ascites. EXTREMITIES: Trace edema. No cyanosis. No clubbing. Contraction on the left side only. SKIN: No rash or hives, with small left sacrum skin abrasion. LABORATORY DATA: Labs showed white count 6.5, hemoglobin 8.5, and platelet count 195,000. BUN 11 and creatinine 0.5. AST 12 and ALT 7. Urinalysis showed +3 leukocyte esterase, red blood cells 5 to 10, WBCs 15 to 20, and many bacteria in the urine. MICROBIOLOGY: Blood culture is showing gram-positive cocci in cluster and Gram stain. IMAGING: Chest x-ray showed no acute cardiopulmonary disease. ASSESSMENT AND RECOMMENDATIONS: 1. Urinary tract infection. We will start the patient on ceftriaxone empirically pending urine culture results. 2. Sepsis with gram-positive cocci in clusters, suspect Staphylococcus. We will await identification and sensitivity. Continue vancomycin for now. Monitor trough. Pharmacy to dose. 3. Altered mental status, suspect due to the above, improving with antibiotics. Continue tele monitor and neuro checks. Further management as per primary team. 4. Cerebrovascular accident, old. Recommend PT/OT. Continue medications. Follow up with Neurology. 5. Sacral wound not infected, seems dry. Continue offloading and local wound care. 6. Diabetes. Recommend tight glycemic control to keep blood glucose between 80 to 120. Thank you for letting us to participate in the care of this patient. Please feel free to call with any questions. Plan of care was discussed with the patient's daughter. Annie Lilly M.D. DR: INGRIS JOB#: [id number] CC:
[2017-05-06 07:50] VITALS: BP 133/89
[2017-05-06 08:07] LABS: TROPONIN I < 0.30 ng/mL (<=0.30)
[2017-05-06 08:14] LABS: ANION GAP 11 (5-15); CALCIUM 8.7 mg/dL (8.6-10.2); CARBON DIOXIDE 26 mEQ/L (20-30); CHLORIDE 110 mEQ/L (98-107); CREATININE 0.4 mg/dL (0.5-0.9); HEMOLYSIS 25; POTASSIUM 4.2 mEQ/L (3.4-4.9); SODIUM 147 mEQ/L (135-145)
[2017-05-06] MEDS: Sertraline 100mg tab ORAL SCH (08:41)
[2017-05-06] MEDS: Losartan 25mg tab ORAL SCH (08:42)
[2017-05-06] MEDS: Heparin 5000 units/ml inj SUBQ SCH ×2 (08:44→21:16)
--- NOTE | 2017-05-06 10:00 | Consultation ---
DATE OF CONSULTATION: 05/05/2017 CARDIOLOGY CONSULTATION CONSULTING PHYSICIAN: Charly Arora M.D. REFERRING PHYSICIAN: Lobito Jones M.D. REASON FOR CONSULTATION: Management of coronary artery disease and congestive heart failure. HISTORY OF PRESENT ILLNESS: The patient is a 76-year-old lady with history of hypertension, hyperlipidemia, diabetes, coronary artery disease, history of congestive heart failure, and history of CVA as well as chronic anemia, who gets Epogen shot. The patient also has history of DVT status post IVC filter. The patient was brought to the emergency room for altered mental status. The patient had recent admission to [facility] for femur fracture and she was discharged to rehab. The daughter stated that around 6 o'clock in the morning, the patient had multiple episodes of watery diarrhea and then at around 12 o'clock in the afternoon, the patient was less responsive. The patient denied any chest pain or shortness of breath. The patient was admitted and cardiology consultation was obtained for further evaluation. At the time of my evaluation, the patient denies any chest pain, palpitations, or shortness of breath. PAST MEDICAL HISTORY: As mentioned above. History of defibrillator implantation. SOCIAL HISTORY: She lives at home. Does not smoke or drink alcohol. FAMILY HISTORY: Noncontributory. REVIEW OF SYSTEMS: Thoroughly performed and was negative other than what was mentioned in the history of present illness. DIAGNOSTIC DATA: EKG showed sinus rhythm with LVH. The chest x-ray showed dual-chamber defibrillator in the left subclavian area. LABORATORY DATA: White count 6.2, hemoglobin of 8.5, hematocrit 26.5, and platelet count 195,000. Sodium 140, potassium 3.5, BUN of 11, and creatinine 0.5. BNP 1000. ASSESSMENT AND PLAN: 1. Status post dual-chamber defibrillator implantation. We will try to check her record to find out what is the brand of her defibrillator for further evaluation and interrogation. 2. History of cardiomyopathy. An echocardiogram will be repeated for further evaluation. 3. History of coronary artery disease, prior stent placed in 2013. 4. Status post [employer] defibrillator implantation. 5. Cerebrovascular accident with left hemiplegia. 6. History of gastrointestinal bleed, esophageal cancer noted in 2013. 7. Carotid stenosis, status post right carotid stent placement. 8. Anemia. 9. Ischemic cardiomyopathy. Continue Coreg and losartan . Coreg is 3.125 mg b.i.d. Thank you very much, Dr. Jones, for allowing me to participate in the care of this patient. Please do not hesitate to contact me for any questions regarding my evaluation. Charly Arora M.D. DR: RAYSA JOB#: [id number] CC:
[2017-05-06 11:41] VITALS: BP 141/82
--- NOTE | 2017-05-06 13:55 | Internal Med Progress Note ---
Subjective Date of Service: May 06, 2017 Physician Name MartinezDelfin Attending Physician Lobito Jones MD Current Medications Medications (Trade) Dose Ordered Sig/Don Route PRN Reason Start Time Stop Time Status Last Admin Dose Admin Acetaminophen (Tylenol) 650 mg Q4H PRN ORAL T>100.5 05/04/17 21:45 06/03/17 21:44 Al Hydroxide/Mg Hydroxide (Mylanta II) 30 ml Q6H PRN ORAL dyspepsia 05/04/17 21:45 06/03/17 21:44 Alprazolam (Xanax) 0.25 mg Q6H PRN ORAL For Anxiety 05/04/17 21:45 05/11/17 21:44 Carvedilol (Coreg) 3.125 mg Q12HR ORAL 05/05/17 09:00 06/04/17 08:59 05/05/17 20:38 Ceftriaxone Sodium 1 gm/ Dextrose 55 ml @ 110 mls/hr Q24H IVPB 05/05/17 16:00 05/12/17 15:59 05/05/17 16:00 Clopidogrel Bisulfate (Plavix) 75 mg DAILY ORAL 05/05/17 09:00 06/04/17 08:59 05/06/17 08:41 Dextrose (Dextrose 50%) STAT PRN IV Hypoglycemia 05/04/17 21:45 06/03/17 21:44 Heparin Sodium (Porcine) (Heparin 5000 units/ml) 5,000 units EVERY 12 HOURS SUBQ 05/05/17 09:00 06/04/17 08:59 05/06/17 08:44 Insulin Aspart (NovoLOG) BEFORE MEALS AND HS SUBQ 05/05/17 06:30 06/04/17 06:29 05/05/17 17:00 Iron Sucrose 100 mg/Sodium Chloride 60 ml @ 240 mls/hr BEDTIME IVPB 05/05/17 21:00 05/09/17 21:14 05/05/17 20:38 Lorazepam (Ativan 2mg/ml 1ml) 0.5 mg Q4H PRN IV Breakthrough anxiety/agitation 05/04/17 21:45 05/11/17 21:44 Losartan Potassium (Cozaar) 25 mg DAILY ORAL 05/06/17 09:00 06/05/17 08:59 05/06/17 08:42 Mirtazapine (Remeron) 15 mg BEDTIME ORAL 05/04/17 23:00 06/03/17 22:59 05/05/17 20:38 Morphine Sulfate (Morphine Sulfate) 1 mg Q4H PRN IVP PAIN 4-10 05/04/17 21:45 05/11/17 21:44 Ondansetron HCl (Zofran) 4 mg Q6H PRN IVP Nausea & Vomiting 05/04/17 21:45 06/03/17 21:44 Polyethylene Glycol (Miralax) 17 gm HSPRN PRN ORAL Constipation 05/04/17 21:45 06/03/17 21:44 Sertraline HCl (Zoloft) 100 mg DAILY ORAL 05/05/17 09:00 06/04/17 08:59 05/06/17 08:41 Vancomycin HCl (Vanco rx to dose) 1 ea DAILY PRN MISC Per Rx Protocol 05/05/17 15:00 06/04/17 14:59 Vancomycin HCl 500 mg/Dextrose 110 ml @ 110 mls/hr Q12HR@0200,1400 IVPB 05/06/17 02:00 05/11/17 01:59 05/06/17 13:42 Zolpidem Tartrate (Ambien) 5 mg HSPRN PRN ORAL Insomnia 05/04/17 22:00 05/11/17 21:59 Allergies: Coded Allergies: LATEX (Unverified Allergy, Mild, Rash, 09/03/14) QUININE (Unverified Allergy, Unknown, Rash Hives, 05/23/15) Quinine Sulfate ROS Limited/Unobtainable: No Constitutional: Reports: no symptoms HEENT: Reports: no symptoms Cardiovascular: Reports: no symptoms Respiratory: Reports: no symptoms Gastrointestinal/Abdominal: Reports: no symptoms Genitourinary: Reports: no symptoms Neurologic/Psychiatric: Reports: no symptoms Subjective 76 YO F admitted with altered mental status. Cover for Kaylynn Jones Objective Last Vital Signs Date Time Temp Pulse Resp B/P (MAP) Pulse Ox O2 Delivery O2 Flow Rate FiO2 05/06/17 11:41 97.2 67 20 141/82 98 Room Air General Appearance: WD/WN, no apparent distress, alert EENT: PERRL/EOMI, normal ENT inspection Neck: non-tender, normal alignment, supple, normal inspection Cardiovascular: normal peripheral pulses, normal rate, regular rhythm, no gallop/murmur, no JVD Respiratory/Chest: chest wall non-tender, lungs clear, normal breath sounds, no respiratory distress, no accessory muscle use Abdomen: normal bowel sounds, non tender, soft, no organomegaly, no mass Extremities: other - left hemiparesis 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, other - left hemiplegia Skin: normal pigmentation, warm/dry Laboratory Tests Test 05/05/17 16:30 05/06/17 04:40 Iron Level 35 ug/dL (37-145) L Total Iron Binding Capacity 190 ug/dL (250-400) L Percent Iron Saturation 18 % (15-50) Unsaturated Iron Binding 155 ug/dL (112-346) Ferritin 290 ng/mL (13-150) H White Blood Count 4.9 K/UL (4.8-10.8) Red Blood Count 2.77 M/UL (4.20-5.40) L Hemoglobin 8.3 G/DL (12.0-16.0) L Hematocrit 26.7 % (37.0-47.0) L Mean Corpuscular Volume 96 FL (80-99) Mean Corpuscular Hemoglobin 29.8 PG (27.0-31.0) Mean Corpuscular Hemoglobin Concent 31.0 G/DL (32.0-36.0) L Red Cell Distribution Width 16.8 % (11.6-14.8) H Platelet Count 189 K/UL (150-450) Mean Platelet Volume 6.2 FL (6.5-10.1) L Neutrophils (%) (Auto) 65.9 % (45.0-75.0) Lymphocytes (%) (Auto) 20.0 % (20.0-45.0) Monocytes (%) (Auto) 11.5 % (1.0-10.0) H Eosinophils (%) (Auto) 2.3 % (0.0-3.0) Basophils (%) (Auto) 0.3 % (0.0-2.0) Sodium Level 147 mEQ/L (135-145) H Potassium Level 4.2 mEQ/L (3.4-4.9) Chloride Level 110 mEQ/L (98-107) H Carbon Dioxide Level 26 mEQ/L (20-30) Anion Gap 11 (5-15) Blood Urea Nitrogen 10 mg/dL (7-23) Creatinine 0.4 mg/dL (0.5-0.9) L Estimat Glomerular Filtration Rate mL/min (>60) Glucose Level 94 mg/dL (74-106) Calcium Level 8.7 mg/dL (8.6-10.2) Troponin I < 0.30 ng/mL (<=0.30) Pro-B-Type Natriuretic Peptide 886 pg/mL (0-125) H Microbiology Date/Time Source Procedure Growth Status 05/04/17 16:35 Blood Blood Culture - Preliminary Resulted 05/04/17 14:00 Blood Blood Culture - Preliminary Resulted 05/04/17 14:40 Urine,Clean Catch Urine Culture - Preliminary Gram Negative Bacillus 1 Resulted 05/04/17 15:15 Rectum VRE Culture - Final NO VANCOMYCIN RESISTANT ENTEROCOCCUS ... Complete Assessment/Plan Problem List: (1) AICD (automatic cardioverter/defibrillator) present Assessment & Plan: See cardiology note, Await interrogation (2) Altered mental state (3) Sepsis Assessment & Plan: Gram pos cocci. Await ID and sensitivity. Cont vanco per ID (4) Diarrhea Assessment & Plan: Resolved. (5) Fracture (6) Severe anemia Assessment & Plan: Anabaptist. Cont IV venofer. (7) DVT (deep venous thrombosis) (8) CVA (cerebrovascular accident) (9) CAD (coronary artery disease) Assessment & Plan: see cardiology note. (10) Diabetes mellitus Assessment & Plan: Cont novolog slideng scale (11) CHF (congestive heart failure) (12) UTI (urinary tract infection) Assessment & Plan: Gram neg jaciel. Await ID and sensitivity. Continue ceftriaxone. DELFIN MARTINEZ May 06, 2017 13:55
--- NOTE | 2017-05-06 14:17 | Pulmonology Progress Note ---
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 anemia functional quadriplegia PLAN OF CARE [facility] floor dc IVF, patient with hx of SHF ( last EF 30-35%) received IVF in ED and on the floor acute encephalopathy likely due to dehydration -resolved check stool C dif UA + UTI fup with urine and blood cx, preliminary blood cx + GPC in clusters empiric abx ID consult - per PMD discretion CXR negative O2 HHN prn BP management with BB and ARB cardio follows medical management of CHF, with BB and ARB ECHO with rEF 30-35% and LVSP of 20 BS management with SS of insulin monitor counts , on IV Venofer per PMD patient will deny any blood transfusion continue antiplatelet therapy case discussed and evaluated by supervising physician Subjective Allergies: Coded Allergies: LATEX (Unverified Allergy, Mild, Rash, 09/03/14) QUININE (Unverified Allergy, Unknown, Rash Hives, 05/23/15) Quinine Sulfate Subjective afebrile, no signs of respiratory distress on RA sat stable interrogation just completed this am Objective Last 24 Hour Vital Signs Date Time Temp Pulse Resp B/P (MAP) Pulse Ox O2 Delivery O2 Flow Rate FiO2 05/06/17 11:41 97.2 67 20 141/82 98 Room Air 05/06/17 08:42 133/89 05/06/17 08:33 60 133/89 05/06/17 07:50 97.6 60 20 133/89 99 Room Air 05/06/17 04:57 97.6 67 18 125/80 96 Room Air 05/06/17 00:38 97.6 64 19 132/77 97 Room Air 05/05/17 20:38 74 124/60 05/05/17 20:00 97.8 70 18 136/81 96 Room Air 05/05/17 16:01 98.2 79 21 138/75 95 Room Air Objective General Appearance: alert, responsive, bed bound Lines, tubes and drains: peripheral HEENT: normocephalic, atraumatic, anicteric Neck: supple Respiratory/Chest: chest wall non-tender, lungs clear, normal breath sounds, no respiratory distress, Left upper chest -AICD Cardiovascular/Chest: normal rate, regular rhythm Abdomen: normal bowel sounds, non tender, soft Extremities: L side hemiparesis Neurologic: abnormal gai/ bedridden , alert, responsive, left hemiparesis Musculoskeletal: atrophy - BLE Microbiology Date/Time Source Procedure Growth Status 05/04/17 16:35 Blood Blood Culture - Preliminary Resulted 05/04/17 14:00 Blood Blood Culture - Preliminary Resulted 05/04/17 14:40 Urine,Clean Catch Urine Culture - Preliminary Gram Negative Bacillus 1 Resulted 05/04/17 15:15 Rectum VRE Culture - Final NO VANCOMYCIN RESISTANT ENTEROCOCCUS ... Complete Laboratory Tests 05/05/17 16:30: Iron Level 35L, Total Iron Binding Capacity 190L, Percent Iron Saturation 18, Unsaturated Iron Binding 155, Ferritin 290H 05/06/17 04:40: White Blood Count 4.9, Red Blood Count 2.77L, Hemoglobin 8.3L, Hematocrit 26.7L , Mean Corpuscular Volume 96, Mean Corpuscular Hemoglobin 29.8, Mean Corpuscular Hemoglobin Concent 31.0L, Red Cell Distribution Width 16.8H, Platelet Count 189, Mean Platelet Volume 6.2L, Neutrophils (%) (Auto) 65.9, Lymphocytes (%) (Auto) 20.0, Monocytes (%) (Auto) 11.5H, Eosinophils (%) (Auto) 2.3, Basophils (%) (Auto) 0.3, Sodium Level 147H, Potassium Level 4.2, Chloride Level 110H, Carbon Dioxide Level 26, Anion Gap 11, Blood Urea Nitrogen 10, Creatinine 0.4L, Estimat Glomerular Filtration Rate , Glucose Level 94, Calcium Level 8.7, Troponin I < 0.30, Pro-B-Type Natriuretic Peptide 886H Current Medications Medications (Trade) Dose Ordered Sig/Don Route PRN Reason Start Time Stop Time Status Last Admin Dose Admin Acetaminophen (Tylenol) 650 mg Q4H PRN ORAL T>100.5 05/04/17 21:45 06/03/17 21:44 Al Hydroxide/Mg Hydroxide (Mylanta II) 30 ml Q6H PRN ORAL dyspepsia 05/04/17 21:45 06/03/17 21:44 Alprazolam (Xanax) 0.25 mg Q6H PRN ORAL For Anxiety 05/04/17 21:45 05/11/17 21:44 Carvedilol (Coreg) 3.125 mg Q12HR ORAL 05/05/17 09:00 06/04/17 08:59 05/05/17 20:38 Ceftriaxone Sodium 1 gm/ Dextrose 55 ml @ 110 mls/hr Q24H IVPB 05/05/17 16:00 05/12/17 15:59 05/05/17 16:00 Clopidogrel Bisulfate (Plavix) 75 mg DAILY ORAL 05/05/17 09:00 06/04/17 08:59 05/06/17 08:41 Dextrose (Dextrose 50%) STAT PRN IV Hypoglycemia 05/04/17 21:45 06/03/17 21:44 Heparin Sodium (Porcine) (Heparin 5000 units/ml) 5,000 units EVERY 12 HOURS SUBQ 05/05/17 09:00 06/04/17 08:59 05/06/17 08:44 Insulin Aspart (NovoLOG) BEFORE MEALS AND HS SUBQ 05/05/17 06:30 06/04/17 06:29 05/05/17 17:00 Iron Sucrose 100 mg/Sodium Chloride 60 ml @ 240 mls/hr BEDTIME IVPB 05/05/17 21:00 05/09/17 21:14 05/05/17 20:38 Lorazepam (Ativan 2mg/ml 1ml) 0.5 mg Q4H PRN IV Breakthrough anxiety/agitation 05/04/17 21:45 05/11/17 21:44 Losartan Potassium (Cozaar) 25 mg DAILY ORAL 05/06/17 09:00 06/05/17 08:59 05/06/17 08:42 Mirtazapine (Remeron) 15 mg BEDTIME ORAL 05/04/17 23:00 06/03/17 22:59 05/05/17 20:38 Morphine Sulfate (Morphine Sulfate) 1 mg Q4H PRN IVP PAIN 4-10 05/04/17 21:45 05/11/17 21:44 Ondansetron HCl (Zofran) 4 mg Q6H PRN IVP Nausea & Vomiting 05/04/17 21:45 06/03/17 21:44 Polyethylene Glycol (Miralax) 17 gm HSPRN PRN ORAL Constipation 05/04/17 21:45 06/03/17 21:44 Sertraline HCl (Zoloft) 100 mg DAILY ORAL 05/05/17 09:00 06/04/17 08:59 05/06/17 08:41 Vancomycin HCl (Vanco rx to dose) 1 ea DAILY PRN MISC Per Rx Protocol 05/05/17 15:00 06/04/17 14:59 Vancomycin HCl 500 mg/Dextrose 110 ml @ 110 mls/hr Q12HR@0200,1400 IVPB 05/06/17 02:00 05/11/17 01:59 05/06/17 13:42 Zolpidem Tartrate (Ambien) 5 mg HSPRN PRN ORAL Insomnia 05/04/17 22:00 05/11/17 21:59 Nnamdi (Rafi)Nohemi NP May 06, 2017 14:17
--- NOTE | 2017-05-06 15:38 | Infectious Diseases Prog Note ---
Assessment/Plan Problems: (1) UTI (urinary tract infection) Assessment & Plan: with gram negative rods , continue ceftriaxon empirically, pending identification and sensitivity (2) Sepsis Assessment & Plan: with gram positive cocci in clusters , source ? suspect sacral wound , await identification and sensitivity, continue vancomycin for now , and monitor trough, pharmacy to monitor trough and adjust dose as needed to keep between 15-20. will repeat blood culture to confirm clearance (3) Altered mental status Assessment & Plan: due to the above, improving, continue tele monitor and neuro check (4) Cerebral vascular disease Assessment & Plan: old, stable. continue off loading as needed (5) Sacral wound Assessment & Plan: not infected, continue off loading and local care (6) Diabetes mellitus Assessment & Plan: recommend tight glycemic control to keep blood glucose between 80-120 Subjective ROS Limited/Unobtainable: Yes Allergies: Coded Allergies: LATEX (Unverified Allergy, Mild, Rash, 09/03/14) QUININE (Unverified Allergy, Unknown, Rash Hives, 05/23/15) Quinine Sulfate Subjective she was up in bed awake and alert, comfortable, no fever or chills, no diarrhea . Objective Vital Signs Last 24 Hour Vital Signs Date Time Temp Pulse Resp B/P (MAP) Pulse Ox O2 Delivery O2 Flow Rate FiO2 05/06/17 11:41 97.2 67 20 141/82 98 Room Air 05/06/17 08:42 133/89 05/06/17 08:33 60 133/89 05/06/17 07:50 97.6 60 20 133/89 99 Room Air 05/06/17 04:57 97.6 67 18 125/80 96 Room Air 05/06/17 00:38 97.6 64 19 132/77 97 Room Air 05/05/17 20:38 74 124/60 05/05/17 20:00 97.8 70 18 136/81 96 Room Air 05/05/17 16:01 98.2 79 21 138/75 95 Room Air Height (Feet): 5 Height (Inches): 4.00 Weight (Pounds): 130 General Appearance: WD/WN, no acute distress HEENT: normocephalic, atraumatic, anicteric, mucous membranes moist, PERRL, EOMI, pharynx normal, supple, no JVD Respiratory/Chest: chest wall non-tender, lungs clear, normal breath sounds, no respiratory distress, no accessory muscle use, decreased breath sounds Cardiovascular: normal peripheral pulses, normal rate, regular rhythm, no gallop/murmur, no JVD Abdomen: normal bowel sounds, soft, non tender, no organomegaly, non distended , no mass, no scars Extremities: no cyanosis, no clubbing Skin: no rash, no lesions, ulcers - sacral wound , no drainage or foul smell Neurologic/Psychiatric: alert, responsive, other - left hemiparesis Lymphatic: no neck adenopathy, no groin adenopathy Microbiology Date/Time Source Procedure Growth Status 05/04/17 16:35 Blood Blood Culture - Preliminary Resulted 05/04/17 14:00 Blood Blood Culture - Preliminary Resulted 05/04/17 14:40 Urine,Clean Catch Urine Culture - Preliminary Gram Negative Bacillus 1 Resulted 05/04/17 15:15 Rectum VRE Culture - Final NO VANCOMYCIN RESISTANT ENTEROCOCCUS ... Complete Laboratory Tests Test 05/05/17 16:30 05/06/17 04:40 Iron Level 35 ug/dL (37-145) L Total Iron Binding Capacity 190 ug/dL (250-400) L Percent Iron Saturation 18 % (15-50) Unsaturated Iron Binding 155 ug/dL (112-346) Ferritin 290 ng/mL (13-150) H White Blood Count 4.9 K/UL (4.8-10.8) Red Blood Count 2.77 M/UL (4.20-5.40) L Hemoglobin 8.3 G/DL (12.0-16.0) L Hematocrit 26.7 % (37.0-47.0) L Mean Corpuscular Volume 96 FL (80-99) Mean Corpuscular Hemoglobin 29.8 PG (27.0-31.0) Mean Corpuscular Hemoglobin Concent 31.0 G/DL (32.0-36.0) L Red Cell Distribution Width 16.8 % (11.6-14.8) H Platelet Count 189 K/UL (150-450) Mean Platelet Volume 6.2 FL (6.5-10.1) L Neutrophils (%) (Auto) 65.9 % (45.0-75.0) Lymphocytes (%) (Auto) 20.0 % (20.0-45.0) Monocytes (%) (Auto) 11.5 % (1.0-10.0) H Eosinophils (%) (Auto) 2.3 % (0.0-3.0) Basophils (%) (Auto) 0.3 % (0.0-2.0) Sodium Level 147 mEQ/L (135-145) H Potassium Level 4.2 mEQ/L (3.4-4.9) Chloride Level 110 mEQ/L (98-107) H Carbon Dioxide Level 26 mEQ/L (20-30) Anion Gap 11 (5-15) Blood Urea Nitrogen 10 mg/dL (7-23) Creatinine 0.4 mg/dL (0.5-0.9) L Estimat Glomerular Filtration Rate mL/min (>60) Glucose Level 94 mg/dL (74-106) Calcium Level 8.7 mg/dL (8.6-10.2) Troponin I < 0.30 ng/mL (<=0.30) Pro-B-Type Natriuretic Peptide 886 pg/mL (0-125) H Current Medications Medications (Trade) Dose Ordered Sig/Don Route PRN Reason Start Time Stop Time Status Last Admin Dose Admin Acetaminophen (Tylenol) 650 mg Q4H PRN ORAL T>100.5 05/04/17 21:45 06/03/17 21:44 Al Hydroxide/Mg Hydroxide (Mylanta II) 30 ml Q6H PRN ORAL dyspepsia 05/04/17 21:45 06/03/17 21:44 Alprazolam (Xanax) 0.25 mg Q6H PRN ORAL For Anxiety 05/04/17 21:45 05/11/17 21:44 Carvedilol (Coreg) 3.125 mg Q12HR ORAL 05/05/17 09:00 06/04/17 08:59 05/05/17 20:38 Ceftriaxone Sodium 1 gm/ Dextrose 55 ml @ 110 mls/hr Q24H IVPB 05/05/17 16:00 05/12/17 15:59 05/05/17 16:00 Clopidogrel Bisulfate (Plavix) 75 mg DAILY ORAL 05/05/17 09:00 06/04/17 08:59 05/06/17 08:41 Dextrose (Dextrose 50%) STAT PRN IV Hypoglycemia 05/04/17 21:45 06/03/17 21:44 Heparin Sodium (Porcine) (Heparin 5000 units/ml) 5,000 units EVERY 12 HOURS SUBQ 05/05/17 09:00 06/04/17 08:59 05/06/17 08:44 Insulin Aspart (NovoLOG) BEFORE MEALS AND HS SUBQ 05/05/17 06:30 06/04/17 06:29 05/05/17 17:00 Iron Sucrose 100 mg/Sodium Chloride 60 ml @ 240 mls/hr BEDTIME IVPB 05/05/17 21:00 05/09/17 21:14 05/05/17 20:38 Lorazepam (Ativan 2mg/ml 1ml) 0.5 mg Q4H PRN IV Breakthrough anxiety/agitation 05/04/17 21:45 05/11/17 21:44 Losartan Potassium (Cozaar) 25 mg DAILY ORAL 05/06/17 09:00 06/05/17 08:59 05/06/17 08:42 Mirtazapine (Remeron) 15 mg BEDTIME ORAL 05/04/17 23:00 06/03/17 22:59 05/05/17 20:38 Morphine Sulfate (Morphine Sulfate) 1 mg Q4H PRN IVP PAIN 4-10 05/04/17 21:45 05/11/17 21:44 Ondansetron HCl (Zofran) 4 mg Q6H PRN IVP Nausea & Vomiting 05/04/17 21:45 06/03/17 21:44 Polyethylene Glycol (Miralax) 17 gm HSPRN PRN ORAL Constipation 05/04/17 21:45 06/03/17 21:44 Sertraline HCl (Zoloft) 100 mg DAILY ORAL 05/05/17 09:00 06/04/17 08:59 05/06/17 08:41 Vancomycin HCl (Vanco rx to dose) 1 ea DAILY PRN MISC Per Rx Protocol 05/05/17 15:00 06/04/17 14:59 Vancomycin HCl 500 mg/Dextrose 110 ml @ 110 mls/hr Q12HR@0200,1400 IVPB 05/06/17 02:00 05/11/17 01:59 05/06/17 13:42 Zolpidem Tartrate (Ambien) 5 mg HSPRN PRN ORAL Insomnia 05/04/17 22:00 05/11/17 21:59 Annie Lilly M.D. May 06, 2017 15:38
[2017-05-06 15:41] VITALS: BP 138/88
[2017-05-06] MEDS: cefTRIAXone 1 GM in D5W 55 ML IVPB SCH (16:22)
[2017-05-06] MEDS ORDERED: Tubing IV Secondary IV ONE (18:21)
[2017-05-06 20:00] VITALS: BP 141/64
[2017-05-06] MEDS: Iron Sucrose 100 MG in NS 55 ML IVPB SCH (21:14)
[2017-05-07] VITALS (7 sets, daily range): BP systolic 145–166; BP diastolic 74–99
[2017-05-07] MEDS: Vancomycin 500mg/D5W 110ml IVPB SCH ×4 (04:03→13:50)
[2017-05-07] MEDS: NovoLOG Insulin Flexpen SUBQ SCH ×4 (06:12→21:17)
[2017-05-07 07:16] LABS: EOSINOPHILS % (AUTO) 2.3 % (0.0-3.0); LYMPHOCYTES % (AUTO) 20.2 % (20.0-45.0); MEAN CORPUSCULAR HEMOGLOBIN 31.6 PG (27.0-31.0); MEAN CORPUSCULAR HGB CONC 32.7 G/DL (32.0-36.0); MEAN CORPUSCULAR VOLUME 97 FL (80-99); MEAN PLATELET VOLUME 6.5 FL (6.5-10.1); MONOCYTES % (AUTO) 8.6 % (1.0-10.0); NEUTROPHILS % (AUTO) 67.8 % (45.0-75.0); PLATELET COUNT 210 K/UL (150-450); RED BLOOD COUNT 3.07 M/UL (4.20-5.40); WHITE BLOOD COUNT 5.4 K/UL (4.8-10.8)
[2017-05-07 07:28] LABS: ANION GAP 12 (5-15); CARBON DIOXIDE 24 mEQ/L (20-30); CHLORIDE 106 mEQ/L (98-107); CREATININE 0.4 mg/dL (0.5-0.9); HEMOLYSIS 9; POTASSIUM 3.7 mEQ/L (3.4-4.9); SODIUM 142 mEQ/L (135-145)
[2017-05-07] MEDS: Losartan 25mg tab ORAL SCH (08:43)
[2017-05-07] MEDS: Sertraline 100mg tab ORAL SCH (08:43)
[2017-05-07] MEDS: Heparin 5000 units/ml inj SUBQ SCH ×2 (08:45→21:18)
--- NOTE | 2017-05-07 11:34 | Internal Med Progress Note ---
Subjective Date of Service: May 07, 2017 Physician Name BlancaDelfin Attending Physician Lobito Jones MD Current Medications Medications (Trade) Dose Ordered Sig/Don Route PRN Reason Start Time Stop Time Status Last Admin Dose Admin Acetaminophen (Tylenol) 650 mg Q4H PRN ORAL T>100.5 05/04/17 21:45 06/03/17 21:44 Al Hydroxide/Mg Hydroxide (Mylanta II) 30 ml Q6H PRN ORAL dyspepsia 05/04/17 21:45 06/03/17 21:44 Alprazolam (Xanax) 0.25 mg Q6H PRN ORAL For Anxiety 05/04/17 21:45 05/11/17 21:44 Carvedilol (Coreg) 3.125 mg Q12HR ORAL 05/05/17 09:00 06/04/17 08:59 05/07/17 08:43 Ceftriaxone Sodium 1 gm/ Dextrose 55 ml @ 110 mls/hr Q24H IVPB 05/05/17 16:00 05/12/17 15:59 05/06/17 16:22 Clopidogrel Bisulfate (Plavix) 75 mg DAILY ORAL 05/05/17 09:00 06/04/17 08:59 05/07/17 08:42 Dextrose (Dextrose 50%) STAT PRN IV Hypoglycemia 05/04/17 21:45 06/03/17 21:44 Heparin Sodium (Porcine) (Heparin 5000 units/ml) 5,000 units EVERY 12 HOURS SUBQ 05/05/17 09:00 06/04/17 08:59 05/07/17 08:45 Insulin Aspart (NovoLOG) BEFORE MEALS AND HS SUBQ 05/05/17 06:30 06/04/17 06:29 05/05/17 17:00 Iron Sucrose 100 mg/Sodium Chloride 60 ml @ 240 mls/hr BEDTIME IVPB 05/05/17 21:00 05/09/17 21:14 05/06/17 21:14 Lorazepam (Ativan 2mg/ml 1ml) 0.5 mg Q4H PRN IV Breakthrough anxiety/agitation 05/04/17 21:45 05/11/17 21:44 Losartan Potassium (Cozaar) 25 mg DAILY ORAL 05/06/17 09:00 06/05/17 08:59 05/07/17 08:43 Mirtazapine (Remeron) 15 mg BEDTIME ORAL 05/04/17 23:00 06/03/17 22:59 05/06/17 21:14 Morphine Sulfate (Morphine Sulfate) 1 mg Q4H PRN IVP PAIN 4-10 05/04/17 21:45 05/11/17 21:44 Ondansetron HCl (Zofran) 4 mg Q6H PRN IVP Nausea & Vomiting 05/04/17 21:45 06/03/17 21:44 Polyethylene Glycol (Miralax) 17 gm HSPRN PRN ORAL Constipation 05/04/17 21:45 06/03/17 21:44 Sertraline HCl (Zoloft) 100 mg DAILY ORAL 05/05/17 09:00 06/04/17 08:59 05/07/17 08:43 Vancomycin HCl (Vanco rx to dose) 1 ea DAILY PRN MISC Per Rx Protocol 05/05/17 15:00 06/04/17 14:59 Vancomycin HCl 500 mg/Dextrose 110 ml @ 110 mls/hr Q12HR@0200,1400 IVPB 05/06/17 02:00 05/11/17 01:59 05/07/17 04:03 Zolpidem Tartrate (Ambien) 5 mg HSPRN PRN ORAL Insomnia 05/04/17 22:00 05/11/17 21:59 Allergies: Coded Allergies: LATEX (Unverified Allergy, Mild, Rash, 09/03/14) QUININE (Unverified Allergy, Unknown, Rash Hives, 05/23/15) Quinine Sulfate ROS Limited/Unobtainable: No Constitutional: Reports: no symptoms HEENT: Reports: no symptoms Cardiovascular: Reports: no symptoms Respiratory: Reports: no symptoms Gastrointestinal/Abdominal: Reports: no symptoms Genitourinary: Reports: no symptoms Neurologic/Psychiatric: Reports: no symptoms Subjective 76 YO F admitted with altered mental status. Now UTI and Sepsis. Cover for Kaylynn Hager-Dr Jones Objective Last Vital Signs Date Time Temp Pulse Resp B/P (MAP) Pulse Ox O2 Delivery O2 Flow Rate FiO2 05/07/17 08:43 166/99 05/07/17 08:43 66 05/07/17 08:00 97.3 18 97 Room Air Laboratory Tests Test 05/07/17 00:58 05/07/17 05:45 Vancomycin Level Trough 15.8 ug/mL (5.0-12.0) H White Blood Count 5.4 K/UL (4.8-10.8) Red Blood Count 3.07 M/UL (4.20-5.40) L Hemoglobin 9.7 G/DL (12.0-16.0) L Hematocrit 29.7 % (37.0-47.0) L Mean Corpuscular Volume 97 FL (80-99) Mean Corpuscular Hemoglobin 31.6 PG (27.0-31.0) H Mean Corpuscular Hemoglobin Concent 32.7 G/DL (32.0-36.0) Red Cell Distribution Width 17.0 % (11.6-14.8) H Platelet Count 210 K/UL (150-450) Mean Platelet Volume 6.5 FL (6.5-10.1) Neutrophils (%) (Auto) 67.8 % (45.0-75.0) Lymphocytes (%) (Auto) 20.2 % (20.0-45.0) Monocytes (%) (Auto) 8.6 % (1.0-10.0) Eosinophils (%) (Auto) 2.3 % (0.0-3.0) Basophils (%) (Auto) 1.0 % (0.0-2.0) Sodium Level 142 mEQ/L (135-145) Potassium Level 3.7 mEQ/L (3.4-4.9) Chloride Level 106 mEQ/L (98-107) Carbon Dioxide Level 24 mEQ/L (20-30) Anion Gap 12 (5-15) Blood Urea Nitrogen 7 mg/dL (7-23) Creatinine 0.4 mg/dL (0.5-0.9) L Estimat Glomerular Filtration Rate mL/min (>60) Glucose Level 96 mg/dL (74-106) Calcium Level 9.0 mg/dL (8.6-10.2) Microbiology Date/Time Source Procedure Growth Status 05/04/17 16:35 Blood Blood Culture - Preliminary Staphylococcus Sp Coag Neg Resulted 05/04/17 14:00 Blood Blood Culture - Preliminary Staphylococcus Sp Coag Neg Resulted 05/04/17 14:40 Urine,Clean Catch Urine Culture - Preliminary Escherichia Coli Gram Negative Bacillus 2 Resulted 05/04/17 15:15 Rectum VRE Culture - Final NO VANCOMYCIN RESISTANT ENTEROCOCCUS ... 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 Cont vanco per ID (4) Diarrhea Assessment & Plan: Resolved. (5) Fracture (6) Severe anemia Assessment & Plan: Worship. Cont IV venofer. (7) DVT (deep venous thrombosis) (8) CVA (cerebrovascular accident) (9) CAD (coronary artery disease) Assessment & Plan: see cardiology note. (10) Diabetes mellitus Assessment & Plan: Cont novolog slideng scale (11) CHF (congestive heart failure) (12) UTI (urinary tract infection) Assessment & Plan: E. Coli. Continue ceftriaxone per ID Status: not improved DELFIN MARTINEZ May 07, 2017 11:34
--- NOTE | 2017-05-07 13:50 | Wound Care Consultation ---
Wound Assessment Wound Assessment #1: Wound Number: 1 Wound Present on Admission: Yes New Wound: No Status Change of Wound: No Wound Location Body Site Modif: upper, posterior Wound Location Body Site: back Wound Type: scar - hyperpigmented ,circular tobar/brown color 2 sites. Leesa Test: Does not Leesa Wound Thickness: Full Thickness Wound Drainage Amount: None Wound Drainage Odor: None/Absent Tissue Surrounding Wound: Intact Wound General Appearance: Asymptomatic, Open to air, Clean/Dry Wound Assessment #2: Wound Number: 2 Wound Present on Admission: Yes New Wound: No Status Change of Wound: No Wound Location Body Site: sacral Wound Type: pressure ulcer Leesa Test: Does not Leesa Pressure Ulcer Stage: III - patient has a history of unstageable wound to this site. Wound Thickness: Full Thickness Wound Length: 3.5 Wound Width: 3.5 Wound Depth: 0.3 Percent of Wound [place]/Red: 90 Percent of Wound Purple/Maroon: 10 Other Colors Identified: surrounding skin to sacral noted with scattered fullthickness scar tissue Wound Drainage Description: Serosanguineous Wound Drainage Amount: Moderate Wound Drainage Odor: None/Absent Tissue Surrounding Wound: Macerated Wound General Appearance: Reddened Wound Comment #1 Sacral pressure ulcer stage III. #2 upper posterior back hyperpigmented scar tissue. Recommendation. -Local wound care as ordered. -Low air loss SPR mattress for wound and skin management. -Turn and reposition. -Optimize nutrition. -Keep clean and dry. -Heel protectors. -Offload sacral site. -Offload heels and feet. -Avoid shear and friction. -Assess and follow up with MD for any changes of condition noted to skin. SAMANTHA KIM May 07, 2017 13:50
--- NOTE | 2017-05-07 14:56 | Pulmonology Progress Note ---
Assessment/Plan Problems: (1) UTI (urinary tract infection) (2) Sacral wound (3) AICD (automatic cardioverter/defibrillator) present (4) Sick sinus syndrome (5) Cerebral vascular disease (6) Hypertension (7) Diabetes mellitus (8) Severe anemia Assessment/Plan f/u h/h anemia w/u continue abx check cultures Subjective ROS Limited/Unobtainable: No Constitutional: Reports: no symptoms HEENT: Repors: no symptoms Respiratory: Reports: no symptoms Allergies: Coded Allergies: LATEX (Unverified Allergy, Mild, Rash, 09/03/14) QUININE (Unverified Allergy, Unknown, Rash Hives, 05/23/15) Quinine Sulfate Objective Last 24 Hour Vital Signs Date Time Temp Pulse Resp B/P (MAP) Pulse Ox O2 Delivery O2 Flow Rate FiO2 05/07/17 12:00 97.4 69 18 154/89 Room Air 05/07/17 08:43 166/99 05/07/17 08:43 66 166/99 05/07/17 08:00 97.3 66 18 166/99 97 Room Air 05/07/17 04:00 97.6 70 21 149/74 98 Room Air 05/07/17 00:00 96.8 60 18 156/86 99 Room Air 05/06/17 21:14 73 141/64 05/06/17 20:00 97.7 73 18 141/64 94 Room Air 05/06/17 15:41 97.9 68 20 138/88 97 Room Air General Appearance: WD/WN HEENT: normocephalic, atraumatic Respiratory/Chest: chest wall non-tender, lungs clear Breasts: no masses Cardiovascular: normal peripheral pulses Abdomen: normal bowel sounds, soft, non tender Extremities: no cyanosis, no clubbing Microbiology Date/Time Source Procedure Growth Status 05/04/17 16:35 Blood Blood Culture - Preliminary Staphylococcus Sp Coag Neg Resulted 05/04/17 15:15 Rectum VRE Culture - Final NO VANCOMYCIN RESISTANT ENTEROCOCCUS ... Complete Laboratory Tests 05/07/17 00:58: Vancomycin Level Trough 15.8H 05/07/17 05:45: White Blood Count 5.4, Red Blood Count 3.07L, Hemoglobin 9.7L, Hematocrit 29.7L , Mean Corpuscular Volume 97, Mean Corpuscular Hemoglobin 31.6H, Mean Corpuscular Hemoglobin Concent 32.7, Red Cell Distribution Width 17.0H, Platelet Count 210, Mean Platelet Volume 6.5, Neutrophils (%) (Auto) 67.8, Lymphocytes (%) (Auto) 20.2, Monocytes (%) (Auto) 8.6, Eosinophils (%) (Auto) 2.3, Basophils (%) (Auto) 1.0, Sodium Level 142, Potassium Level 3.7, Chloride Level 106, Carbon Dioxide Level 24, Anion Gap 12, Blood Urea Nitrogen 7, Creatinine 0.4L, Estimat Glomerular Filtration Rate , Glucose Level 96, Calcium Level 9.0 Current Medications Medications (Trade) Dose Ordered Sig/Don Route PRN Reason Start Time Stop Time Status Last Admin Dose Admin Acetaminophen (Tylenol) 650 mg Q4H PRN ORAL T>100.5 05/04/17 21:45 06/03/17 21:44 Al Hydroxide/Mg Hydroxide (Mylanta II) 30 ml Q6H PRN ORAL dyspepsia 05/04/17 21:45 06/03/17 21:44 Alprazolam (Xanax) 0.25 mg Q6H PRN ORAL For Anxiety 05/04/17 21:45 05/11/17 21:44 Carvedilol (Coreg) 3.125 mg Q12HR ORAL 05/05/17 09:00 06/04/17 08:59 05/07/17 08:43 Ceftriaxone Sodium 1 gm/ Dextrose 55 ml @ 110 mls/hr Q24H IVPB 05/05/17 16:00 05/12/17 15:59 05/06/17 16:22 Clopidogrel Bisulfate (Plavix) 75 mg DAILY ORAL 05/05/17 09:00 06/04/17 08:59 05/07/17 08:42 Dextrose (Dextrose 50%) STAT PRN IV Hypoglycemia 05/04/17 21:45 06/03/17 21:44 Heparin Sodium (Porcine) (Heparin 5000 units/ml) 5,000 units EVERY 12 HOURS SUBQ 05/05/17 09:00 06/04/17 08:59 05/07/17 08:45 Insulin Aspart (NovoLOG) BEFORE MEALS AND HS SUBQ 05/05/17 06:30 06/04/17 06:29 05/05/17 17:00 Iron Sucrose 100 mg/Sodium Chloride 60 ml @ 240 mls/hr BEDTIME IVPB 05/05/17 21:00 05/09/17 21:14 05/06/17 21:14 Lorazepam (Ativan 2mg/ml 1ml) 0.5 mg Q4H PRN IV Breakthrough anxiety/agitation 05/04/17 21:45 05/11/17 21:44 Losartan Potassium (Cozaar) 25 mg DAILY ORAL 05/06/17 09:00 06/05/17 08:59 05/07/17 08:43 Mirtazapine (Remeron) 15 mg BEDTIME ORAL 05/04/17 23:00 06/03/17 22:59 05/06/17 21:14 Morphine Sulfate (Morphine Sulfate) 1 mg Q4H PRN IVP PAIN 4-10 05/04/17 21:45 05/11/17 21:44 Ondansetron HCl (Zofran) 4 mg Q6H PRN IVP Nausea & Vomiting 05/04/17 21:45 06/03/17 21:44 Polyethylene Glycol (Miralax) 17 gm HSPRN PRN ORAL Constipation 05/04/17 21:45 06/03/17 21:44 Sertraline HCl (Zoloft) 100 mg DAILY ORAL 05/05/17 09:00 06/04/17 08:59 05/07/17 08:43 Vancomycin HCl (Vanco rx to dose) 1 ea DAILY PRN MISC Per Rx Protocol 05/05/17 15:00 06/04/17 14:59 Vancomycin HCl 500 mg/Dextrose 110 ml @ 110 mls/hr Q12HR@0200,1400 IVPB 05/06/17 02:00 05/11/17 01:59 05/07/17 13:50 Zolpidem Tartrate (Ambien) 5 mg HSPRN PRN ORAL Insomnia 05/04/17 22:00 05/11/17 21:59 MARLENY TURPIN May 07, 2017 14:56
--- NOTE | 2017-05-07 16:16 | Infectious Diseases Prog Note ---
Assessment/Plan Problems: (1) UTI (urinary tract infection) Assessment & Plan: with E coli sensitive to ceftriaxon , will treat for 7 days (2) Sepsis Assessment & Plan: due to coag negative staph which grew out of three bottles so far , most likely real infection, source ? suspect sacral wound , await sensitivity, will need echo to rule out vegetations and possible endocarditis, will treat with vancomycin for 4 weeks .pharmacy to monitor trough and adjust dose as needed to keep between 15-20. will repeat blood culture to confirm clearance (3) Altered mental status Assessment & Plan: due to the above, improving, continue tele monitor and neuro check (4) Cerebral vascular disease Assessment & Plan: old, stable. continue off loading as needed (5) Sacral wound Assessment & Plan: not infected, continue off loading and local care (6) Diabetes mellitus Assessment & Plan: recommend tight glycemic control to keep blood glucose between 80-120 Subjective Constitutional: Reports: no symptoms HEENT: Reports: no symptoms Respiratory: Reports: no symptoms Cardiovascular: Reports: no symptoms Gastrointestinal/Abdominal: Reports: no symptoms Genitourinary: Reports: no symptoms Neurologic: Reports: weakness Skin: Reports: ulcer Endocrine: Reports: no symptoms Hematologic: Reports: no symptoms Allergies: Coded Allergies: LATEX (Unverified Allergy, Mild, Rash, 09/03/14) QUININE (Unverified Allergy, Unknown, Rash Hives, 05/23/15) Quinine Sulfate Subjective she was up in bed awake and alert, comfortable, no fever or chills, no diarrhea . Objective Vital Signs Last 24 Hour Vital Signs Date Time Temp Pulse Resp B/P (MAP) Pulse Ox O2 Delivery O2 Flow Rate FiO2 05/07/17 12:00 97.4 69 18 154/89 Room Air 05/07/17 08:43 166/99 05/07/17 08:43 66 166/99 05/07/17 08:00 97.3 66 18 166/99 97 Room Air 05/07/17 04:00 97.6 70 21 149/74 98 Room Air 05/07/17 00:00 96.8 60 18 156/86 99 Room Air 05/06/17 21:14 73 141/64 05/06/17 20:00 97.7 73 18 141/64 94 Room Air Height (Feet): 5 Height (Inches): 4.00 Weight (Pounds): 130 General Appearance: WD/WN, no acute distress HEENT: normocephalic, atraumatic, anicteric, mucous membranes moist, PERRL, EOMI, pharynx normal, supple, no JVD Respiratory/Chest: chest wall non-tender, lungs clear, normal breath sounds, no respiratory distress, no accessory muscle use Cardiovascular: normal peripheral pulses, normal rate, regular rhythm, no gallop/murmur, no JVD Abdomen: normal bowel sounds, soft, non tender, no organomegaly, non distended , no mass, no scars Extremities: no cyanosis, no clubbing Skin: no rash, no lesions, no ulcers Neurologic/Psychiatric: alert, responsive Microbiology Date/Time Source Procedure Growth Status 05/04/17 16:35 Blood Blood Culture - Preliminary Staphylococcus Sp Coag Neg Resulted Laboratory Tests Test 05/07/17 00:58 05/07/17 05:45 Vancomycin Level Trough 15.8 ug/mL (5.0-12.0) H White Blood Count 5.4 K/UL (4.8-10.8) Red Blood Count 3.07 M/UL (4.20-5.40) L Hemoglobin 9.7 G/DL (12.0-16.0) L Hematocrit 29.7 % (37.0-47.0) L Mean Corpuscular Volume 97 FL (80-99) Mean Corpuscular Hemoglobin 31.6 PG (27.0-31.0) H Mean Corpuscular Hemoglobin Concent 32.7 G/DL (32.0-36.0) Red Cell Distribution Width 17.0 % (11.6-14.8) H Platelet Count 210 K/UL (150-450) Mean Platelet Volume 6.5 FL (6.5-10.1) Neutrophils (%) (Auto) 67.8 % (45.0-75.0) Lymphocytes (%) (Auto) 20.2 % (20.0-45.0) Monocytes (%) (Auto) 8.6 % (1.0-10.0) Eosinophils (%) (Auto) 2.3 % (0.0-3.0) Basophils (%) (Auto) 1.0 % (0.0-2.0) Sodium Level 142 mEQ/L (135-145) Potassium Level 3.7 mEQ/L (3.4-4.9) Chloride Level 106 mEQ/L (98-107) Carbon Dioxide Level 24 mEQ/L (20-30) Anion Gap 12 (5-15) Blood Urea Nitrogen 7 mg/dL (7-23) Creatinine 0.4 mg/dL (0.5-0.9) L Estimat Glomerular Filtration Rate mL/min (>60) Glucose Level 96 mg/dL (74-106) Calcium Level 9.0 mg/dL (8.6-10.2) Current Medications Medications (Trade) Dose Ordered Sig/Don Route PRN Reason Start Time Stop Time Status Last Admin Dose Admin Acetaminophen (Tylenol) 650 mg Q4H PRN ORAL T>100.5 05/04/17 21:45 06/03/17 21:44 Al Hydroxide/Mg Hydroxide (Mylanta II) 30 ml Q6H PRN ORAL dyspepsia 05/04/17 21:45 06/03/17 21:44 Alprazolam (Xanax) 0.25 mg Q6H PRN ORAL For Anxiety 05/04/17 21:45 05/11/17 21:44 Carvedilol (Coreg) 3.125 mg Q12HR ORAL 05/05/17 09:00 06/04/17 08:59 05/07/17 08:43 Ceftriaxone Sodium 1 gm/ Dextrose 55 ml @ 110 mls/hr Q24H IVPB 05/05/17 16:00 05/12/17 15:59 05/06/17 16:22 Clopidogrel Bisulfate (Plavix) 75 mg DAILY ORAL 05/05/17 09:00 06/04/17 08:59 05/07/17 08:42 Dextrose (Dextrose 50%) STAT PRN IV Hypoglycemia 05/04/17 21:45 06/03/17 21:44 Heparin Sodium (Porcine) (Heparin 5000 units/ml) 5,000 units EVERY 12 HOURS SUBQ 05/05/17 09:00 06/04/17 08:59 05/07/17 08:45 Insulin Aspart (NovoLOG) BEFORE MEALS AND HS SUBQ 05/05/17 06:30 06/04/17 06:29 05/05/17 17:00 Iron Sucrose 100 mg/Sodium Chloride 60 ml @ 240 mls/hr BEDTIME IVPB 05/05/17 21:00 05/09/17 21:14 05/06/17 21:14 Lorazepam (Ativan 2mg/ml 1ml) 0.5 mg Q4H PRN IV Breakthrough anxiety/agitation 05/04/17 21:45 05/11/17 21:44 Losartan Potassium (Cozaar) 25 mg DAILY ORAL 05/06/17 09:00 06/05/17 08:59 05/07/17 08:43 Mirtazapine (Remeron) 15 mg BEDTIME ORAL 05/04/17 23:00 06/03/17 22:59 05/06/17 21:14 Morphine Sulfate (Morphine Sulfate) 1 mg Q4H PRN IVP PAIN 4-10 05/04/17 21:45 05/11/17 21:44 Ondansetron HCl (Zofran) 4 mg Q6H PRN IVP Nausea & Vomiting 05/04/17 21:45 06/03/17 21:44 Polyethylene Glycol (Miralax) 17 gm HSPRN PRN ORAL Constipation 05/04/17 21:45 06/03/17 21:44 Sertraline HCl (Zoloft) 100 mg DAILY ORAL 05/05/17 09:00 06/04/17 08:59 05/07/17 08:43 Vancomycin HCl (Vanco rx to dose) 1 ea DAILY PRN MISC Per Rx Protocol 05/05/17 15:00 06/04/17 14:59 Vancomycin HCl 500 mg/Dextrose 110 ml @ 110 mls/hr Q12HR@0200,1400 IVPB 05/06/17 02:00 05/11/17 01:59 05/07/17 13:50 Zolpidem Tartrate (Ambien) 5 mg HSPRN PRN ORAL Insomnia 05/04/17 22:00 05/11/17 21:59 Annie Lilly M.D. May 07, 2017 16:16
[2017-05-07] MEDS: cefTRIAXone 1 GM in D5W 55 ML IVPB SCH (16:44)
--- NOTE | 2017-05-07 17:47 | Cardiac Electrophysiology PN ---
Assessment/Plan Assessment/Plan 1. Status post [employer] dual-chamber defibrillator implantation. Interrogated and showed Nl Fx with 11 years battery remaining. 2. Ischemic Cardiomyopathy with EF 30-35 on echocardiogram. Continue Coreg and Cozaar 3. History of coronary artery disease, prior stent placed in 2013. 4. Cerebrovascular accident with left hemiplegia. 5. Carotid stenosis, status post right carotid stent placement. 6. History of gastrointestinal bleed, esophageal cancer noted in 2013. 7. Anemia. Subjective Subjective Transferred to [facility] / [facility]. No events overnight. Objective Last 24 Hour Vital Signs Date Time Temp Pulse Resp B/P (MAP) Pulse Ox O2 Delivery O2 Flow Rate FiO2 05/07/17 12:00 97.4 69 18 154/89 Room Air 05/07/17 08:43 166/99 05/07/17 08:43 66 166/99 05/07/17 08:00 97.3 66 18 166/99 97 Room Air 05/07/17 04:00 97.6 70 21 149/74 98 Room Air 05/07/17 00:00 96.8 60 18 156/86 99 Room Air 05/06/17 21:14 73 141/64 05/06/17 20:00 97.7 73 18 141/64 94 Room Air Intake and Output 05/07/17 05/08/17 19:00 07:00 Intake Total 310 ml Balance 310 ml Intake Oral 200 ml IV Total 110 ml Laboratory Tests Test 05/07/17 00:58 05/07/17 05:45 Vancomycin Level Trough 15.8 ug/mL (5.0-12.0) H White Blood Count 5.4 K/UL (4.8-10.8) Red Blood Count 3.07 M/UL (4.20-5.40) L Hemoglobin 9.7 G/DL (12.0-16.0) L Hematocrit 29.7 % (37.0-47.0) L Mean Corpuscular Volume 97 FL (80-99) Mean Corpuscular Hemoglobin 31.6 PG (27.0-31.0) H Mean Corpuscular Hemoglobin Concent 32.7 G/DL (32.0-36.0) Red Cell Distribution Width 17.0 % (11.6-14.8) H Platelet Count 210 K/UL (150-450) Mean Platelet Volume 6.5 FL (6.5-10.1) Neutrophils (%) (Auto) 67.8 % (45.0-75.0) Lymphocytes (%) (Auto) 20.2 % (20.0-45.0) Monocytes (%) (Auto) 8.6 % (1.0-10.0) Eosinophils (%) (Auto) 2.3 % (0.0-3.0) Basophils (%) (Auto) 1.0 % (0.0-2.0) Sodium Level 142 mEQ/L (135-145) Potassium Level 3.7 mEQ/L (3.4-4.9) Chloride Level 106 mEQ/L (98-107) Carbon Dioxide Level 24 mEQ/L (20-30) Anion Gap 12 (5-15) Blood Urea Nitrogen 7 mg/dL (7-23) Creatinine 0.4 mg/dL (0.5-0.9) L Estimat Glomerular Filtration Rate mL/min (>60) Glucose Level 96 mg/dL (74-106) Calcium Level 9.0 mg/dL (8.6-10.2) Objective General Appearance: no apparent distress, alert HEENT: No JVD Cardiovascular: RRR.ICD left subclavian Respiratory/Chest: chest wall non-tender, lungs clear, normal breath sounds, no respiratory distress, no accessory muscle use Abdomen: normal bowel sounds, non tender, soft, no organomegaly, no mass Extremities: left hemiparesis Neurologic: room attendants II-XII grossly normal, other - left hemiplegia MARICRUZ DURON May 07, 2017 17:47
[2017-05-07] MEDS: Iron Sucrose 100 MG in NS 55 ML IVPB SCH (21:14)
[2017-05-08] VITALS: BP 129/65
[2017-05-08] MEDS: Vancomycin 500mg/D5W 110ml IVPB SCH ×4 (01:37→15:18)
--- NOTE | 2017-05-08 03:15 | Consultation ---
DATE OF CONSULTATION: 05/07/2017 RENAL CONSULTATION CONSULTING PHYSICIAN: Rubén Gill M.D. ATTENDING PHYSICIAN: Lobito Jones M.D. HISTORY OF PRESENT ILLNESS: The patient is a 76-year-old lady with a past medical history of hypertension, diabetes, congestive heart failure, coronary artery disease, stroke. The patient has been admitted to the hospital with confusion, altered level of consciousness, and also episodes of abdominal pain and watery diarrhea which started 3 days ago on 05/04/2017. The patient has been feeling weak and confused with no appetite and has been feeling thirsty on arrival to the hospital. The patient has been found to have hypernatremia and dehydration. There is no report of the patient having fever, chills, shortness of breath, chest pain, genitourinary symptoms, or vomiting. No urine output has been calculated. The patient is not a good historian but there is no report of the patient having any renal problem or electrolyte abnormality in the past. She has been on several medications from home including Cozaar and metformin. I do not see that she has been taking any Lasix or other diuretics that could have increased sodium level. PAST MEDICAL HISTORY: Hypertension, diabetes, coronary artery disease, congestive heart failure, hypercholesterolemia, DVT, stroke, AICD placement, iron-deficiency anemia, femoral fracture. MEDICATIONS: Folic acid, iron, erythromycin, Aricept, Plavix, carvedilol, Lipitor, vitamin C, Tylenol, Xanax, Restoril, Zoloft, Protonix, Zofran, omeprazole, multivitamin, Remeron, metformin, Cozaar, lactulose, and [place]. ALLERGIES: Latex, quinine. SOCIAL HISTORY: Nonsmoker and nondrinker. No drug use. REVIEW OF SYSTEMS: Positive for generalized weakness, lightheadedness, confusion, thirst. PHYSICAL EXAMINATION: VITAL SIGNS: Blood pressure 149/74, respiratory rate 21, heart rate 70, oxygen saturation 98% on room air, and temperature 97.6. GENERAL: The patient is in no acute distress. She is slightly confused and lethargic. HEENT: She has conjunctival pallor. Mucous members are dry. SKIN: Turgor is decreased. HEART: Rate and rhythm is regular. LUNGS: Clear to auscultation bilaterally. ABDOMEN: Tender allover with increased bowel sounds with no rebound. EXTREMITIES: Show trace edema of the lower extremity. LABORATORY DATA: Sodium 147, potassium 4.2, bicarbonate 26, chloride 110, BUN 10, creatinine 0.4, and calcium 8.7. ASSESSMENT AND PLAN: The patient is a 76-year-old lady with past medical history of hypertension, diabetes, congestive heart failure, coronary artery disease, and stroke. The patient has been admitted to the hospital with confusion, altered level of consciousness, low appetite, generalized weakness, thirst, and diarrhea. The patient has been found to have dehydration and also hypernatremia. 1. The patient's kidney function is normal. 2. The patient's hypernatremia is most likely because of gastrointestinal loss and dehydration. I will start the patient on half-normal saline at 100 mL/h. 3. If the sodium level continues to increase, I will check the urine sodium. 4. It is okay to continue Cozaar and metformin. 5. I would avoid using nonsteroidal antiinflammatory drugs but it is okay to use other medications for now. 6. I will check the magnesium and phosphorus level. Rubén Gill M.D. DR: Rosey JOB#: [id number] CC:
[2017-05-08 04:00] VITALS: BP 126/66
[2017-05-08] MEDS: NovoLOG Insulin Flexpen SUBQ SCH ×4 (06:15→21:00)
[2017-05-08 06:41] LABS: BASOPHILS % (AUTO) 0.6 % (0.0-2.0); EOSINOPHILS % (AUTO) 1.6 % (0.0-3.0); LYMPHOCYTES % (AUTO) 15.2 % (20.0-45.0); MEAN CORPUSCULAR HEMOGLOBIN 30.4 PG (27.0-31.0); MEAN CORPUSCULAR HGB CONC 31.5 G/DL (32.0-36.0); MEAN CORPUSCULAR VOLUME 97 FL (80-99); MEAN PLATELET VOLUME 6.3 FL (6.5-10.1); NEUTROPHILS % (AUTO) 75.6 % (45.0-75.0); PLATELET COUNT 222 K/UL (150-450); RED BLOOD COUNT 2.79 M/UL (4.20-5.40)
[2017-05-08 07:30] LABS: ANION GAP 10 (5-15); CALCIUM 8.8 mg/dL (8.6-10.2); CARBON DIOXIDE 26 mEQ/L (20-30); CHLORIDE 104 mEQ/L (98-107); CREATININE 0.5 mg/dL (0.5-0.9); HEMOLYSIS 6; POTASSIUM 3.8 mEQ/L (3.4-4.9); SODIUM 140 mEQ/L (135-145)
[2017-05-08 08:30] VITALS: BP 151/77
[2017-05-08] MEDS: Losartan 25mg tab ORAL SCH (09:21)
[2017-05-08] MEDS: Sertraline 100mg tab ORAL SCH (09:22)
[2017-05-08] MEDS: Heparin 5000 units/ml inj SUBQ SCH ×2 (09:25→20:30)
[2017-05-08 11:52] VITALS: BP 121/65
--- NOTE | 2017-05-08 13:20 | Cardiology Report ---
APPROVED REPORT EXAM: Two-dimensional and M-mode echocardiogram with Doppler and color Doppler. INDICATION Congestive Heart Failure M-Mode DIMENSIONS IVSd1.1 (0.7-1.1cm)Left Atrium (MM)2.4 (1.6-4.0cm) LVDd6.4 (3.5-5.6cm)Aortic Root2.9 (2.0-3.7cm) PWd1.2 (0.7-1.1cm)Aortic Cusp Exc.1.9 (1.5-2.0cm) LVDs5.7 (2.5-4.0cm) PWs1.0 cm Technically difficult study due to poor acoustic windows. Normal left ventricular chamber size. Global left ventricular hypokinesis. Anteroseptal wall akinesia as well as apex, inferior wall, distal latreal wall and mid to distal posterior wall . Left ventricular ejection fraction estimated to be 30%. No evidence of left ventricular hypertrophy. No evidence of pericardial fat or effusion. All other cardiac chamber sizes are within normal limits. Focal aortic valve sclerosis with adequate cusp excursion Thickened mitral valve leaflets with normal excursion. Moderate mitral annulus and aortic root calcification. Pulmonic valve not well visualized. Normal tricuspid valve structure. IVC not obtainable. A color flow and spectral Doppler study was performed and revealed: Trace aortic regurgitation. Mild mitral regurgitation (2 jets). Left ventricular diastolic dysfunction grade 1. Mild tricuspid regurgitation. Tricuspid systolic velocities suggests peak right ventricular systolic pressure of 20 mmHg Pulmonic regurgitation present.
--- NOTE | 2017-05-08 15:28 | Infectious Diseases Prog Note ---
Assessment/Plan Problems: (1) UTI (urinary tract infection) Assessment & Plan: with E coli sensitive to ceftriaxon , will treat for 7 days (2) Sepsis Assessment & Plan: due to coag negative staph which grew out of three bottles so far , most likely real infection, source ? suspect sacral wound , transthoracic echo didn't show vegetations, but not the ideal test to rule out [place] valve endocarditis or AICD leads endocarditis , so will add rifampin to the vancomycin and treat for 6 weeks total .pharmacy to monitor trough and adjust dose as needed to keep between 15-20. will repeat blood culture to confirm clearance . (3) Altered mental status Assessment & Plan: due to the above, improving, continue tele monitor and neuro check (4) Cerebral vascular disease Assessment & Plan: old, stable. continue off loading as needed (5) Sacral wound Assessment & Plan: not infected, continue off loading and local care (6) Diabetes mellitus Assessment & Plan: recommend tight glycemic control to keep blood glucose between 80-120 Subjective Constitutional: Reports: no symptoms HEENT: Reports: no symptoms Respiratory: Reports: no symptoms Breasts: Reports: no symptoms Cardiovascular: Reports: no symptoms Gastrointestinal/Abdominal: Reports: no symptoms Genitourinary: Reports: no symptoms Neurologic: Reports: no symptoms Psychiatric: Reports: no symptoms Skin: Reports: ulcer Endocrine: Reports: no symptoms Hematologic: Reports: no symptoms Musculoskeletal: Reports: no symptoms Allergies: Coded Allergies: LATEX (Unverified Allergy, Mild, Rash, 09/03/14) QUININE (Unverified Allergy, Unknown, Rash Hives, 05/23/15) Quinine Sulfate Subjective she was awake and alert, up in bed, follows commands , no fever or chills, no diarrhea . Objective Vital Signs Last 24 Hour Vital Signs Date Time Temp Pulse Resp B/P (MAP) Pulse Ox O2 Delivery O2 Flow Rate FiO2 05/08/17 11:52 96.9 63 19 121/65 98 Room Air 05/08/17 09:22 80 151/77 05/08/17 09:21 151/77 05/08/17 08:30 97.9 80 20 151/77 98 Room Air 05/08/17 04:00 98.6 80 18 126/66 97 Room Air 05/08/17 00:00 98.7 82 16 129/65 97 Room Air 05/07/17 21:14 75 145/81 05/07/17 20:28 97.3 75 18 145/81 97 Room Air 05/07/17 16:00 97.7 71 18 148/83 97 Room Air Height (Feet): 5 Height (Inches): 4.00 Weight (Pounds): 130 General Appearance: WD/WN, no acute distress HEENT: normocephalic, atraumatic, anicteric, mucous membranes moist, PERRL, EOMI, pharynx normal, supple Respiratory/Chest: chest wall non-tender, lungs clear, normal breath sounds, no respiratory distress, no accessory muscle use Cardiovascular: normal peripheral pulses, normal rate, regular rhythm, no gallop/murmur, no JVD Abdomen: normal bowel sounds, soft, non tender, no organomegaly, non distended , no mass, no scars Extremities: no cyanosis, no clubbing Skin: no rash, no lesions, ulcers Neurologic/Psychiatric: alert, responsive Lymphatic: no neck adenopathy, no groin adenopathy Musculoskeletal: normal muscle bulk, no effusion Laboratory Tests Test 05/08/17 05:45 05/08/17 13:45 White Blood Count 5.0 K/UL (4.8-10.8) Red Blood Count 2.79 M/UL (4.20-5.40) L Hemoglobin 8.5 G/DL (12.0-16.0) L Hematocrit 27.0 % (37.0-47.0) L Mean Corpuscular Volume 97 FL (80-99) Mean Corpuscular Hemoglobin 30.4 PG (27.0-31.0) Mean Corpuscular Hemoglobin Concent 31.5 G/DL (32.0-36.0) L Red Cell Distribution Width 17.0 % (11.6-14.8) H Platelet Count 222 K/UL (150-450) Mean Platelet Volume 6.3 FL (6.5-10.1) L Neutrophils (%) (Auto) 75.6 % (45.0-75.0) H Lymphocytes (%) (Auto) 15.2 % (20.0-45.0) L Monocytes (%) (Auto) 7.0 % (1.0-10.0) Eosinophils (%) (Auto) 1.6 % (0.0-3.0) Basophils (%) (Auto) 0.6 % (0.0-2.0) Sodium Level 140 mEQ/L (135-145) Potassium Level 3.8 mEQ/L (3.4-4.9) Chloride Level 104 mEQ/L (98-107) Carbon Dioxide Level 26 mEQ/L (20-30) Anion Gap 10 (5-15) Blood Urea Nitrogen 15 mg/dL (7-23) Creatinine 0.5 mg/dL (0.5-0.9) Estimat Glomerular Filtration Rate mL/min (>60) Glucose Level 96 mg/dL (74-106) Calcium Level 8.8 mg/dL (8.6-10.2) Vancomycin Level Trough 16.2 ug/mL (5.0-12.0) H Current Medications Medications (Trade) Dose Ordered Sig/Don Route PRN Reason Start Time Stop Time Status Last Admin Dose Admin Acetaminophen (Tylenol) 650 mg Q4H PRN ORAL T>100.5 05/04/17 21:45 06/03/17 21:44 05/08/17 09:24 Al Hydroxide/Mg Hydroxide (Mylanta II) 30 ml Q6H PRN ORAL dyspepsia 05/04/17 21:45 06/03/17 21:44 Alprazolam (Xanax) 0.25 mg Q6H PRN ORAL For Anxiety 05/04/17 21:45 05/11/17 21:44 Carvedilol (Coreg) 3.125 mg Q12HR ORAL 05/05/17 09:00 06/04/17 08:59 05/08/17 09:22 Ceftriaxone Sodium 1 gm/ Dextrose 55 ml @ 110 mls/hr Q24H IVPB 05/05/17 16:00 05/12/17 15:59 05/07/17 16:44 Clopidogrel Bisulfate (Plavix) 75 mg DAILY ORAL 05/05/17 09:00 06/04/17 08:59 05/08/17 09:21 Dextrose (Dextrose 50%) STAT PRN IV Hypoglycemia 05/04/17 21:45 06/03/17 21:44 Heparin Sodium (Porcine) (Heparin 5000 units/ml) 5,000 units EVERY 12 HOURS SUBQ 05/05/17 09:00 06/04/17 08:59 05/08/17 09:25 Insulin Aspart (NovoLOG) BEFORE MEALS AND HS SUBQ 05/05/17 06:30 06/04/17 06:29 05/07/17 21:17 Iron Sucrose 100 mg/Sodium Chloride 60 ml @ 240 mls/hr BEDTIME IVPB 05/05/17 21:00 05/09/17 21:14 05/07/17 21:14 Lorazepam (Ativan 2mg/ml 1ml) 0.5 mg Q4H PRN IV Breakthrough anxiety/agitation 05/04/17 21:45 05/11/17 21:44 Losartan Potassium (Cozaar) 25 mg DAILY ORAL 05/06/17 09:00 06/05/17 08:59 05/08/17 09:21 Mirtazapine (Remeron) 15 mg BEDTIME ORAL 05/04/17 23:00 06/03/17 22:59 05/07/17 21:14 Morphine Sulfate (Morphine Sulfate) 1 mg Q4H PRN IVP PAIN 4-10 05/04/17 21:45 05/11/17 21:44 05/08/17 09:39 Ondansetron HCl (Zofran) 4 mg Q6H PRN IVP Nausea & Vomiting 05/04/17 21:45 06/03/17 21:44 Polyethylene Glycol (Miralax) 17 gm HSPRN PRN ORAL Constipation 05/04/17 21:45 06/03/17 21:44 Sertraline HCl (Zoloft) 100 mg DAILY ORAL 05/05/17 09:00 06/04/17 08:59 05/08/17 09:22 Vancomycin HCl (Vanco rx to dose) 1 ea DAILY PRN MISC Per Rx Protocol 05/05/17 15:00 06/04/17 14:59 Vancomycin HCl 500 mg/Dextrose 110 ml @ 110 mls/hr Q12HR@0200,1400 IVPB 05/06/17 02:00 05/11/17 01:59 05/08/17 01:37 Zolpidem Tartrate (Ambien) 5 mg HSPRN PRN ORAL Insomnia 05/04/17 22:00 05/11/17 21:59 Annie Lilly M.D. May 08, 2017 15:28
--- NOTE | 2017-05-08 15:47 | Cardiology Report ---
APPROVED REPORT EKG Measurement Heart [id number] Normal sinus rhythm Left axis deviation Minimal voltage criteria for LVH, may be normal variant Septal infarct, age undetermined Abnormal ECG
--- NOTE | 2017-05-08 16:24 | Internal Med Progress Note ---
Subjective Date of Service: May 08, 2017 Physician Name BlancaDelfin Attending Physician Lobito Jones MD Current Medications Medications (Trade) Dose Ordered Sig/Don Route PRN Reason Start Time Stop Time Status Last Admin Dose Admin Acetaminophen (Tylenol) 650 mg Q4H PRN ORAL T>100.5 05/04/17 21:45 06/03/17 21:44 05/08/17 09:24 Al Hydroxide/Mg Hydroxide (Mylanta II) 30 ml Q6H PRN ORAL dyspepsia 05/04/17 21:45 06/03/17 21:44 Alprazolam (Xanax) 0.25 mg Q6H PRN ORAL For Anxiety 05/04/17 21:45 05/11/17 21:44 Carvedilol (Coreg) 3.125 mg Q12HR ORAL 05/05/17 09:00 06/04/17 08:59 05/08/17 09:22 Ceftriaxone Sodium 1 gm/ Dextrose 55 ml @ 110 mls/hr Q24H IVPB 05/05/17 16:00 05/12/17 15:59 05/07/17 16:44 Clopidogrel Bisulfate (Plavix) 75 mg DAILY ORAL 05/05/17 09:00 06/04/17 08:59 05/08/17 09:21 Dextrose (Dextrose 50%) STAT PRN IV Hypoglycemia 05/04/17 21:45 06/03/17 21:44 Heparin Sodium (Porcine) (Heparin 5000 units/ml) 5,000 units EVERY 12 HOURS SUBQ 05/05/17 09:00 06/04/17 08:59 05/08/17 09:25 Insulin Aspart (NovoLOG) BEFORE MEALS AND HS SUBQ 05/05/17 06:30 06/04/17 06:29 05/07/17 21:17 Iron Sucrose 100 mg/Sodium Chloride 60 ml @ 240 mls/hr BEDTIME IVPB 05/05/17 21:00 05/09/17 21:14 05/07/17 21:14 Lorazepam (Ativan 2mg/ml 1ml) 0.5 mg Q4H PRN IV Breakthrough anxiety/agitation 05/04/17 21:45 05/11/17 21:44 Losartan Potassium (Cozaar) 25 mg DAILY ORAL 05/06/17 09:00 06/05/17 08:59 05/08/17 09:21 Mirtazapine (Remeron) 15 mg BEDTIME ORAL 05/04/17 23:00 06/03/17 22:59 05/07/17 21:14 Morphine Sulfate (Morphine Sulfate) 1 mg Q4H PRN IVP PAIN 4-10 05/04/17 21:45 05/11/17 21:44 05/08/17 09:39 Ondansetron HCl (Zofran) 4 mg Q6H PRN IVP Nausea & Vomiting 05/04/17 21:45 06/03/17 21:44 Polyethylene Glycol (Miralax) 17 gm HSPRN PRN ORAL Constipation 05/04/17 21:45 06/03/17 21:44 Rifampin (Rifadin) 300 mg EVERY 12 HOURS ORAL 05/08/17 17:00 06/05/17 16:59 Sertraline HCl (Zoloft) 100 mg DAILY ORAL 05/05/17 09:00 06/04/17 08:59 05/08/17 09:22 Vancomycin HCl (Vanco rx to dose) 1 ea DAILY PRN MISC Per Rx Protocol 05/05/17 15:00 06/04/17 14:59 Vancomycin HCl 500 mg/Dextrose 110 ml @ 110 mls/hr Q12HR@0200,1400 IVPB 05/06/17 02:00 05/11/17 01:59 05/08/17 15:18 Zolpidem Tartrate (Ambien) 5 mg HSPRN PRN ORAL Insomnia 05/04/17 22:00 05/11/17 21:59 Allergies: Coded Allergies: LATEX (Unverified Allergy, Mild, Rash, 09/03/14) QUININE (Unverified Allergy, Unknown, Rash Hives, 05/23/15) Quinine Sulfate ROS Limited/Unobtainable: No Constitutional: Reports: no symptoms HEENT: Reports: no symptoms Cardiovascular: Reports: no symptoms Respiratory: Reports: no symptoms Gastrointestinal/Abdominal: Reports: no symptoms Genitourinary: Reports: no symptoms Neurologic/Psychiatric: Reports: no symptoms Subjective 76 YO F admitted with altered mental status. Now UTI and Sepsis. Cover for Int Madan-Dr Jones Objective Last Vital Signs Date Time Temp Pulse Resp B/P (MAP) Pulse Ox O2 Delivery O2 Flow Rate FiO2 05/08/17 11:52 96.9 63 19 121/65 98 Room Air Laboratory Tests Test 05/08/17 05:45 05/08/17 13:45 White Blood Count 5.0 K/UL (4.8-10.8) Red Blood Count 2.79 M/UL (4.20-5.40) L Hemoglobin 8.5 G/DL (12.0-16.0) L Hematocrit 27.0 % (37.0-47.0) L Mean Corpuscular Volume 97 FL (80-99) Mean Corpuscular Hemoglobin 30.4 PG (27.0-31.0) Mean Corpuscular Hemoglobin Concent 31.5 G/DL (32.0-36.0) L Red Cell Distribution Width 17.0 % (11.6-14.8) H Platelet Count 222 K/UL (150-450) Mean Platelet Volume 6.3 FL (6.5-10.1) L Neutrophils (%) (Auto) 75.6 % (45.0-75.0) H Lymphocytes (%) (Auto) 15.2 % (20.0-45.0) L Monocytes (%) (Auto) 7.0 % (1.0-10.0) Eosinophils (%) (Auto) 1.6 % (0.0-3.0) Basophils (%) (Auto) 0.6 % (0.0-2.0) Sodium Level 140 mEQ/L (135-145) Potassium Level 3.8 mEQ/L (3.4-4.9) Chloride Level 104 mEQ/L (98-107) Carbon Dioxide Level 26 mEQ/L (20-30) Anion Gap 10 (5-15) Blood Urea Nitrogen 15 mg/dL (7-23) Creatinine 0.5 mg/dL (0.5-0.9) Estimat Glomerular Filtration Rate mL/min (>60) Glucose Level 96 mg/dL (74-106) Calcium Level 8.8 mg/dL (8.6-10.2) Vancomycin Level Trough 16.2 ug/mL (5.0-12.0) H Objective General Appearance: WD/WN, no apparent distress, alert EENT: PERRL/EOMI, normal ENT inspection Neck: non-tender, normal alignment, supple, normal inspection Cardiovascular: normal peripheral pulses, normal rate, regular rhythm, no gallop/murmur, no JVD Respiratory/Chest: chest wall non-tender, lungs clear, normal breath sounds, no respiratory distress, no accessory muscle use Abdomen: normal bowel sounds, non tender, soft, no organomegaly, no mass Extremities: other - left hemiparesis 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 See ID note concerning source. Await JANIE to R/O endocarditis. Await repeat blood cultures. Cont vanco per ID. PICC ordered. (4) Diarrhea Assessment & Plan: Resolved. (5) Fracture (6) Severe anemia Assessment & Plan: Baptism. Cont IV venofer. (7) DVT (deep venous thrombosis) (8) CVA (cerebrovascular accident) (9) CAD (coronary artery disease) Assessment & Plan: see cardiology note. (10) Diabetes mellitus Assessment & Plan: Cont novolog slideng scale (11) CHF (congestive heart failure) (12) UTI (urinary tract infection) Assessment & Plan: E. Coli. Continue ceftriaxone per ID Status: not improved DELFIN MARTINEZ May 08, 2017 16:24
[2017-05-08] MEDS: cefTRIAXone 1 GM in D5W 55 ML IVPB SCH (16:26)
[2017-05-08 16:37] VITALS: BP 124/70
--- NOTE | 2017-05-08 17:28 | Cardiac Electrophysiology PN ---
Assessment/Plan Assessment/Plan 1. Status post [employer] dual-chamber defibrillator implantation. Interrogated and showed Nl Fx with 11 years battery remaining. 2. Ischemic Cardiomyopathy with EF 30-35 . Continue Coreg and Cozaar 3. History of coronary artery disease, prior stent placed in 2013. 4. Cerebrovascular accident with left hemiplegia. 5. Carotid stenosis, status post right carotid stent placement. 6. History of gastrointestinal bleed, esophageal cancer noted in 2013. 7. Anemia. 8. Coag negative staph sepsis. Blood Cx positive three bottles so far source ? suspect sacral wound. No clinical infection of ICD. TTE no vegetation. Getting PICC line for 6 weeks abx Subjective Subjective Blood culture is positive. Scheduled for PICC line. Objective Last 24 Hour Vital Signs Date Time Temp Pulse Resp B/P (MAP) Pulse Ox O2 Delivery O2 Flow Rate FiO2 05/08/17 16:37 97.0 61 19 124/70 97 Room Air 05/08/17 11:52 96.9 63 19 121/65 98 Room Air 05/08/17 09:22 80 151/77 05/08/17 09:21 151/77 05/08/17 08:30 97.9 80 20 151/77 98 Room Air 05/08/17 04:00 98.6 80 18 126/66 97 Room Air 05/08/17 00:00 98.7 82 16 129/65 97 Room Air 05/07/17 21:14 75 145/81 05/07/17 20:28 97.3 75 18 145/81 97 Room Air Laboratory Tests Test 05/08/17 05:45 05/08/17 13:45 White Blood Count 5.0 K/UL (4.8-10.8) Red Blood Count 2.79 M/UL (4.20-5.40) L Hemoglobin 8.5 G/DL (12.0-16.0) L Hematocrit 27.0 % (37.0-47.0) L Mean Corpuscular Volume 97 FL (80-99) Mean Corpuscular Hemoglobin 30.4 PG (27.0-31.0) Mean Corpuscular Hemoglobin Concent 31.5 G/DL (32.0-36.0) L Red Cell Distribution Width 17.0 % (11.6-14.8) H Platelet Count 222 K/UL (150-450) Mean Platelet Volume 6.3 FL (6.5-10.1) L Neutrophils (%) (Auto) 75.6 % (45.0-75.0) H Lymphocytes (%) (Auto) 15.2 % (20.0-45.0) L Monocytes (%) (Auto) 7.0 % (1.0-10.0) Eosinophils (%) (Auto) 1.6 % (0.0-3.0) Basophils (%) (Auto) 0.6 % (0.0-2.0) Sodium Level 140 mEQ/L (135-145) Potassium Level 3.8 mEQ/L (3.4-4.9) Chloride Level 104 mEQ/L (98-107) Carbon Dioxide Level 26 mEQ/L (20-30) Anion Gap 10 (5-15) Blood Urea Nitrogen 15 mg/dL (7-23) Creatinine 0.5 mg/dL (0.5-0.9) Estimat Glomerular Filtration Rate mL/min (>60) Glucose Level 96 mg/dL (74-106) Calcium Level 8.8 mg/dL (8.6-10.2) Vancomycin Level Trough 16.2 ug/mL (5.0-12.0) H Objective General Appearance: no apparent distress, alert HEENT: No JVD Cardiovascular: RRR. ICD left subclavian Respiratory/Chest: chest wall non-tender, lungs clear, normal breath sounds, no respiratory distress, no accessory muscle use Abdomen: normal bowel sounds, non tender, soft, no organomegaly, no mass Extremities: left hemiparesis MARICRUZ DURON May 08, 2017 17:28
--- NOTE | 2017-05-08 19:26 | Pulmonology Progress Note ---
Assessment/Plan Problems: (1) Bacteremia (2) UTI (urinary tract infection) (3) Sacral wound (4) AICD (automatic cardioverter/defibrillator) present (5) Sick sinus syndrome (6) Cerebral vascular disease (7) Hypertension (8) Diabetes mellitus (9) Severe anemia Assessment/Plan f/u h/h anemia w/u continue abx check cultures PICC line repeat cultures Subjective ROS Limited/Unobtainable: No Interval Events: comfortable and confused Allergies: Coded Allergies: LATEX (Unverified Allergy, Mild, Rash, 09/03/14) QUININE (Unverified Allergy, Unknown, Rash Hives, 05/23/15) Quinine Sulfate Objective Last 24 Hour Vital Signs Date Time Temp Pulse Resp B/P (MAP) Pulse Ox O2 Delivery O2 Flow Rate FiO2 05/08/17 16:37 97.0 61 19 124/70 97 Room Air 05/08/17 11:52 96.9 63 19 121/65 98 Room Air 05/08/17 09:22 80 151/77 05/08/17 09:21 151/77 05/08/17 08:30 97.9 80 20 151/77 98 Room Air 05/08/17 04:00 98.6 80 18 126/66 97 Room Air 05/08/17 00:00 98.7 82 16 129/65 97 Room Air 05/07/17 21:14 75 145/81 05/07/17 20:28 97.3 75 18 145/81 97 Room Air Intake and Output 05/08/17 05/09/17 19:00 07:00 Intake Total 120 ml Output Total 400 ml Balance -280 ml Intake Oral 120 ml Output Urine Total 400 ml General Appearance: cachetic HEENT: normocephalic, atraumatic Respiratory/Chest: chest wall non-tender, lungs clear Breasts: no masses Cardiovascular: normal peripheral pulses, regular rhythm Abdomen: soft, non tender Genitourinary: normal external genitalia Skin: no rash 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 Laboratory Tests 05/08/17 05:45: White Blood Count 5.0, Red Blood Count 2.79L, Hemoglobin 8.5L, Hematocrit 27.0L , Mean Corpuscular Volume 97, Mean Corpuscular Hemoglobin 30.4, Mean Corpuscular Hemoglobin Concent 31.5L, Red Cell Distribution Width 17.0H, Platelet Count 222, Mean Platelet Volume 6.3L, Neutrophils (%) (Auto) 75.6H, Lymphocytes (%) (Auto) 15.2L, Monocytes (%) (Auto) 7.0, Eosinophils (%) (Auto) 1.6, Basophils (%) (Auto) 0.6, Sodium Level 140, Potassium Level 3.8, Chloride Level 104, Carbon Dioxide Level 26, Anion Gap 10, Blood Urea Nitrogen 15, Creatinine 0.5, Estimat Glomerular Filtration Rate , Glucose Level 96, Calcium Level 8.8 05/08/17 13:45: Vancomycin Level Trough 16.2H Current Medications Medications (Trade) Dose Ordered Sig/Don Route PRN Reason Start Time Stop Time Status Last Admin Dose Admin Acetaminophen (Tylenol) 650 mg Q4H PRN ORAL T>100.5 05/04/17 21:45 06/03/17 21:44 05/08/17 09:24 Al Hydroxide/Mg Hydroxide (Mylanta II) 30 ml Q6H PRN ORAL dyspepsia 05/04/17 21:45 06/03/17 21:44 Alprazolam (Xanax) 0.25 mg Q6H PRN ORAL For Anxiety 05/04/17 21:45 05/11/17 21:44 Carvedilol (Coreg) 3.125 mg Q12HR ORAL 05/05/17 09:00 06/04/17 08:59 05/08/17 09:22 Ceftriaxone Sodium 1 gm/ Dextrose 55 ml @ 110 mls/hr Q24H IVPB 05/05/17 16:00 05/12/17 15:59 05/08/17 16:26 Chlorhexidine Gluconate (Merari-Hex 2%) 1 applic DAILY TOPIC 05/09/17 09:00 06/08/17 08:59 Clopidogrel Bisulfate (Plavix) 75 mg DAILY ORAL 05/05/17 09:00 06/04/17 08:59 05/08/17 09:21 Dextrose (Dextrose 50%) STAT PRN IV Hypoglycemia 05/04/17 21:45 06/03/17 21:44 Heparin Sodium (Porcine) (Heparin 5000 units/ml) 5,000 units EVERY 12 HOURS SUBQ 05/05/17 09:00 06/04/17 08:59 05/08/17 09:25 Heparin Sodium/ Sodium Chloride (Heparin 2000 units/Ns 1000ml premix) 2,000 unit ONCE ONCE INJ 05/09/17 06:00 05/09/17 06:01 Insulin Aspart (NovoLOG) BEFORE MEALS AND HS SUBQ 05/05/17 06:30 06/04/17 06:29 05/07/17 21:17 Iron Sucrose 100 mg/Sodium Chloride 60 ml @ 240 mls/hr BEDTIME IVPB 05/05/17 21:00 05/09/17 21:14 05/07/17 21:14 Lidocaine HCl (Xylocaine 1% 30ml) 30 ml ONCE ONCE INJ 05/09/17 06:00 05/09/17 06:01 Lorazepam (Ativan 2mg/ml 1ml) 0.5 mg Q4H PRN IV Breakthrough anxiety/agitation 05/04/17 21:45 05/11/17 21:44 Losartan Potassium (Cozaar) 25 mg DAILY ORAL 05/06/17 09:00 06/05/17 08:59 05/08/17 09:21 Mirtazapine (Remeron) 15 mg BEDTIME ORAL 05/04/17 23:00 06/03/17 22:59 05/07/17 21:14 Morphine Sulfate (Morphine Sulfate) 1 mg Q4H PRN IVP PAIN 4-10 05/04/17 21:45 05/11/17 21:44 05/08/17 09:39 Ondansetron HCl (Zofran) 4 mg Q6H PRN IVP Nausea & Vomiting 05/04/17 21:45 06/03/17 21:44 Polyethylene Glycol (Miralax) 17 gm HSPRN PRN ORAL Constipation 05/04/17 21:45 06/03/17 21:44 Rifampin (Rifadin) 300 mg EVERY 12 HOURS ORAL 05/08/17 17:00 06/05/17 16:59 Sertraline HCl (Zoloft) 100 mg DAILY ORAL 05/05/17 09:00 06/04/17 08:59 05/08/17 09:22 Vancomycin HCl (Vanco rx to dose) 1 ea DAILY PRN MISC Per Rx Protocol 05/05/17 15:00 06/04/17 14:59 Vancomycin HCl 500 mg/Dextrose 110 ml @ 110 mls/hr Q12HR@0200,1400 IVPB 05/06/17 02:00 05/11/17 01:59 05/08/17 15:18 Zolpidem Tartrate (Ambien) 5 mg HSPRN PRN ORAL Insomnia 05/04/17 22:00 05/11/17 21:59 MARLENY TURPIN May 08, 2017 19:26
[2017-05-08 20:00] VITALS: BP 150/79
[2017-05-08] MEDS: Iron Sucrose 100 MG in NS 55 ML IVPB SCH (20:25)
[2017-05-09] VITALS: BP 137/71
[2017-05-09] MEDS: Vancomycin 500mg/D5W 110ml IVPB SCH ×4 (01:25→15:10)
[2017-05-09 04:00] VITALS: BP 120/70
[2017-05-09] MEDS ORDERED: Lidocaine 1% Plain 30 ml INJ ONE ×2 (06:00→10:10)
[2017-05-09] MEDS ORDERED: Heparin 2000 units/Ns 1000ml INJ ONE ×2 (06:00→10:00)
[2017-05-09] MEDS: NovoLOG Insulin Flexpen SUBQ SCH ×4 (06:30→20:45)
[2017-05-09 07:07] LABS: BASOPHILS % (AUTO) 0.5 % (0.0-2.0); EOSINOPHILS % (AUTO) 1.9 % (0.0-3.0); LYMPHOCYTES % (AUTO) 21.6 % (20.0-45.0); MEAN CORPUSCULAR HEMOGLOBIN 30.4 PG (27.0-31.0); MEAN CORPUSCULAR HGB CONC 31.3 G/DL (32.0-36.0); MEAN CORPUSCULAR VOLUME 97 FL (80-99); PLATELET COUNT 219 K/UL (150-450); RED BLOOD COUNT 2.83 M/UL (4.20-5.40); RED CELL DISTRIBUTION WIDTH 17.3 % (11.6-14.8); WHITE BLOOD COUNT 4.7 K/UL (4.8-10.8)
[2017-05-09 07:19] LABS: ANION GAP 11 (5-15); CALCIUM 9.2 mg/dL (8.6-10.2); CARBON DIOXIDE 25 mEQ/L (20-30); CHLORIDE 108 mEQ/L (98-107); CREATININE 0.4 mg/dL (0.5-0.9); HEMOLYSIS 2; POTASSIUM 4.2 mEQ/L (3.4-4.9); SODIUM 144 mEQ/L (135-145)
[2017-05-09 08:21] VITALS: BP 126/64
[2017-05-09] MEDS: Sertraline 100mg tab ORAL SCH (08:43)
[2017-05-09] MEDS: Losartan 25mg tab ORAL SCH (08:43)
[2017-05-09] MEDS: Heparin 5000 units/ml inj SUBQ SCH ×2 (08:45→20:43)
[2017-05-09] MEDS: Dyna-Hex 2% Top Sol 8oz TOPIC SCH (09:00)
[2017-05-09] MEDS ORDERED: NS 275ml ONE (09:25)
[2017-05-09] MEDS ORDERED: Tubing IV Secondary IV ONE (09:25)
--- NOTE | 2017-05-09 10:54 | Internal Med Progress Note ---
Subjective Date of Service: May 09, 2017 Physician Name Delfin Rios Attending Physician Lobito Jones MD Current Medications Medications (Trade) Dose Ordered Sig/Don Route PRN Reason Start Time Stop Time Status Last Admin Dose Admin Acetaminophen (Tylenol) 650 mg Q4H PRN ORAL T>100.5 05/04/17 21:45 06/03/17 21:44 05/08/17 09:24 Al Hydroxide/Mg Hydroxide (Mylanta II) 30 ml Q6H PRN ORAL dyspepsia 05/04/17 21:45 06/03/17 21:44 Alprazolam (Xanax) 0.25 mg Q6H PRN ORAL For Anxiety 05/04/17 21:45 05/11/17 21:44 Carvedilol (Coreg) 3.125 mg Q12HR ORAL 05/05/17 09:00 06/04/17 08:59 05/09/17 08:43 Ceftriaxone Sodium 1 gm/ Dextrose 55 ml @ 110 mls/hr Q24H IVPB 05/05/17 16:00 05/12/17 15:59 05/08/17 16:26 Chlorhexidine Gluconate (Merari-Hex 2%) 1 applic DAILY TOPIC 05/09/17 09:00 06/08/17 08:59 Clopidogrel Bisulfate (Plavix) 75 mg DAILY ORAL 05/05/17 09:00 06/04/17 08:59 05/09/17 08:43 Dextrose (Dextrose 50%) STAT PRN IV Hypoglycemia 05/04/17 21:45 06/03/17 21:44 Heparin Sodium (Porcine) (Heparin 5000 units/ml) 5,000 units EVERY 12 HOURS SUBQ 05/05/17 09:00 06/04/17 08:59 05/09/17 08:45 Insulin Aspart (NovoLOG) BEFORE MEALS AND HS SUBQ 05/05/17 06:30 06/04/17 06:29 05/07/17 21:17 Iron Sucrose 100 mg/Sodium Chloride 60 ml @ 240 mls/hr BEDTIME IVPB 05/05/17 21:00 05/09/17 21:14 05/08/17 20:25 Lorazepam (Ativan 2mg/ml 1ml) 0.5 mg Q4H PRN IV Breakthrough anxiety/agitation 05/04/17 21:45 05/11/17 21:44 Losartan Potassium (Cozaar) 25 mg DAILY ORAL 05/06/17 09:00 06/05/17 08:59 05/09/17 08:43 Mirtazapine (Remeron) 15 mg BEDTIME ORAL 05/04/17 23:00 06/03/17 22:59 05/08/17 20:24 Morphine Sulfate (Morphine Sulfate) 1 mg Q4H PRN IVP PAIN 4-10 05/04/17 21:45 05/11/17 21:44 05/08/17 09:39 Ondansetron HCl (Zofran) 4 mg Q6H PRN IVP Nausea & Vomiting 05/04/17 21:45 06/03/17 21:44 Polyethylene Glycol (Miralax) 17 gm HSPRN PRN ORAL Constipation 05/04/17 21:45 06/03/17 21:44 Rifampin (Rifadin) 300 mg EVERY 12 HOURS ORAL 05/08/17 17:00 06/05/17 16:59 05/09/17 08:42 Sertraline HCl (Zoloft) 100 mg DAILY ORAL 05/05/17 09:00 06/04/17 08:59 05/09/17 08:43 Vancomycin HCl (Vanco rx to dose) 1 ea DAILY PRN MISC Per Rx Protocol 05/05/17 15:00 06/04/17 14:59 Vancomycin HCl 500 mg/Dextrose 110 ml @ 110 mls/hr Q12HR@0200,1400 IVPB 05/06/17 02:00 05/11/17 01:59 05/09/17 01:25 Zolpidem Tartrate (Ambien) 5 mg HSPRN PRN ORAL Insomnia 05/04/17 22:00 05/11/17 21:59 05/08/17 23:32 Allergies: Coded Allergies: LATEX (Unverified Allergy, Mild, Rash, 09/03/14) QUININE (Unverified Allergy, Unknown, Rash Hives, 05/23/15) Quinine Sulfate ROS Limited/Unobtainable: No Constitutional: Reports: no symptoms HEENT: Reports: no symptoms Cardiovascular: Reports: no symptoms Respiratory: Reports: no symptoms Gastrointestinal/Abdominal: Reports: no symptoms Genitourinary: Reports: no symptoms Neurologic/Psychiatric: Reports: no symptoms Subjective 76 YO F admitted with altered mental status. Now UTI and Sepsis. Cover for Int Med-Dr Jones. Await PICC placement for 6 weeks IV vanco Objective Last Vital Signs Date Time Temp Pulse Resp B/P (MAP) Pulse Ox O2 Delivery O2 Flow Rate FiO2 05/09/17 08:43 126/64 05/09/17 08:43 69 05/09/17 08:21 97.7 20 97 Room Air Laboratory Tests Test 05/08/17 13:45 05/09/17 05:35 Vancomycin Level Trough 16.2 ug/mL (5.0-12.0) H White Blood Count 4.7 K/UL (4.8-10.8) L Red Blood Count 2.83 M/UL (4.20-5.40) L Hemoglobin 8.6 G/DL (12.0-16.0) L Hematocrit 27.4 % (37.0-47.0) L Mean Corpuscular Volume 97 FL (80-99) Mean Corpuscular Hemoglobin 30.4 PG (27.0-31.0) Mean Corpuscular Hemoglobin Concent 31.3 G/DL (32.0-36.0) L Red Cell Distribution Width 17.3 % (11.6-14.8) H Platelet Count 219 K/UL (150-450) Mean Platelet Volume 6.0 FL (6.5-10.1) L Neutrophils (%) (Auto) 67.0 % (45.0-75.0) Lymphocytes (%) (Auto) 21.6 % (20.0-45.0) Monocytes (%) (Auto) 9.0 % (1.0-10.0) Eosinophils (%) (Auto) 1.9 % (0.0-3.0) Basophils (%) (Auto) 0.5 % (0.0-2.0) Sodium Level 144 mEQ/L (135-145) Potassium Level 4.2 mEQ/L (3.4-4.9) Chloride Level 108 mEQ/L (98-107) H Carbon Dioxide Level 25 mEQ/L (20-30) Anion Gap 11 (5-15) Blood Urea Nitrogen 12 mg/dL (7-23) Creatinine 0.4 mg/dL (0.5-0.9) L Estimat Glomerular Filtration Rate mL/min (>60) Glucose Level 82 mg/dL (74-106) Calcium Level 9.2 mg/dL (8.6-10.2) Objective General Appearance: WD/WN, no apparent distress, alert EENT: PERRL/EOMI, normal ENT inspection Neck: non-tender, normal alignment, supple, normal inspection Cardiovascular: normal peripheral pulses, normal rate, regular rhythm, no gallop/murmur, no JVD Respiratory/Chest: chest wall non-tender, lungs clear, normal breath sounds, no respiratory distress, no accessory muscle use Abdomen: normal bowel sounds, non tender, soft, no organomegaly, no mass Extremities: other - left hemiparesis 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 See ID note concerning source. Await JANIE to R/O endocarditis. Await repeat blood cultures. Cont vanco for 6 weeks per ID. Await PICC placement (4) Diarrhea Assessment & Plan: Resolved. (5) Fracture (6) Severe anemia Assessment & Plan: Yazidism. Cont IV venofer. (7) DVT (deep venous thrombosis) (8) CVA (cerebrovascular accident) (9) CAD (coronary artery disease) Assessment & Plan: see cardiology note. (10) Diabetes mellitus Assessment & Plan: Cont novolog slideng scale (11) CHF (congestive heart failure) (12) UTI (urinary tract infection) Assessment & Plan: E. Coli. Continue ceftriaxone for 7 days per ID Status: DELFIN Acosta May 09, 2017 10:54
[2017-05-09 11:52] VITALS: BP 125/69
--- NOTE | 2017-05-09 13:53 | Diagnostic Imaging Report ---
Indication: intermediate designer venous access Findings: After the indications, procedure, risks, complications, and alternatives of the procedure were explained, written informed consent was obtained. The right upper extremity was prepped with alcohol. All elements of maximal sterile barrier technique were followed including usage of a cap, mask, sterile gown, sterile gloves, hand hygiene and a large sterile sheet. Sonographic evaluation of the upper extremity was performed demonstrating a patent and compressible basilic vein. Access was obtained under real-time ultrasound guidance and digital image was saved and archived. An .018 wire was introduced. Needle exchanged for a 5 [place] peel-away sheath. Measurements were obtained. A 5 [employer] dual-lumen Power PICC line catheter was cut to 33 cm and introduced over the wire. Peel-away sheath and wire were removed.Catheter was secured to the skin using 2-0 Prolene suture. Both ports aspirate and flush easily. Fluoroscopic Images show distal tip in the superior vena cava. Total fluoroscopic time 0.3 minutes Impression: Successful placement of an upper extremity PICC line catheter
--- NOTE | 2017-05-09 15:27 | Infectious Diseases Prog Note ---
Assessment/Plan Problems: (1) UTI (urinary tract infection) Assessment & Plan: with E coli sensitive to ceftriaxon , will treat for 7 days . EOT 05/12/17 (2) Sepsis Assessment & Plan: due to coag negative staph which grew out of three bottles so far , most likely real infection, source ? suspect sacral wound , transthoracic echo didn't show vegetations, but not the ideal test to rule out algaaciq valve endocarditis or AICD leads endocarditis , so will add rifampin to the vancomycin and treat for 6 weeks total to cover for possible endocarditis .pharmacy to monitor trough and adjust dose as needed to keep between 15-20. will repeat blood culture to confirm clearance . 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 continue off loading as needed (5) Sacral wound Assessment & Plan: not infected, continue off loading and local care (6) Diabetes mellitus Assessment & Plan: recommend tight glycemic control to keep blood glucose between 80-120 Subjective Constitutional: Reports: no symptoms HEENT: Reports: no symptoms Respiratory: Reports: no symptoms Breasts: Reports: no symptoms Cardiovascular: Reports: no symptoms Gastrointestinal/Abdominal: Reports: no symptoms Genitourinary: Reports: no symptoms Neurologic: Reports: no symptoms Psychiatric: Reports: no symptoms Skin: Reports: no symptoms Endocrine: Reports: no symptoms Hematologic: Reports: no symptoms Allergies: Coded Allergies: LATEX (Unverified Allergy, Mild, Rash, 09/03/14) QUININE (Unverified Allergy, Unknown, Rash Hives, 05/23/15) Quinine Sulfate Subjective she was awake and alert, up in bed, follows commands , no fever or chills, no diarrhea . Objective Vital Signs Last 24 Hour Vital Signs Date Time Temp Pulse Resp B/P (MAP) Pulse Ox O2 Delivery O2 Flow Rate FiO2 05/09/17 11:52 97.9 72 19 125/69 97 Room Air 05/09/17 08:43 126/64 05/09/17 08:43 69 126/64 05/09/17 08:21 97.7 69 20 126/64 97 Room Air 05/09/17 04:00 97.6 71 18 120/70 97 Room Air 05/09/17 00:00 97.6 65 18 137/71 96 Room Air 05/08/17 20:25 78 150/79 05/08/17 20:00 97.8 78 18 150/79 97 Room Air 05/08/17 16:37 97.0 61 19 124/70 97 Room Air Height (Feet): 5 Height (Inches): 4.00 Weight (Pounds): 130 General Appearance: WD/WN, no acute distress HEENT: normocephalic, atraumatic, anicteric, mucous membranes moist, EOMI, pharynx normal, supple, no JVD Respiratory/Chest: chest wall non-tender, lungs clear, normal breath sounds, no respiratory distress, no accessory muscle use Cardiovascular: normal peripheral pulses, normal rate, regular rhythm, no gallop/murmur, no JVD Abdomen: normal bowel sounds, soft, non tender, no organomegaly, non distended , no mass, no scars Extremities: no cyanosis, no clubbing Skin: no rash, no lesions, ulcers Laboratory Tests Test 05/09/17 05:35 White Blood Count 4.7 K/UL (4.8-10.8) L Red Blood Count 2.83 M/UL (4.20-5.40) L Hemoglobin 8.6 G/DL (12.0-16.0) L Hematocrit 27.4 % (37.0-47.0) L Mean Corpuscular Volume 97 FL (80-99) Mean Corpuscular Hemoglobin 30.4 PG (27.0-31.0) Mean Corpuscular Hemoglobin Concent 31.3 G/DL (32.0-36.0) L Red Cell Distribution Width 17.3 % (11.6-14.8) H Platelet Count 219 K/UL (150-450) Mean Platelet Volume 6.0 FL (6.5-10.1) L Neutrophils (%) (Auto) 67.0 % (45.0-75.0) Lymphocytes (%) (Auto) 21.6 % (20.0-45.0) Monocytes (%) (Auto) 9.0 % (1.0-10.0) Eosinophils (%) (Auto) 1.9 % (0.0-3.0) Basophils (%) (Auto) 0.5 % (0.0-2.0) Sodium Level 144 mEQ/L (135-145) Potassium Level 4.2 mEQ/L (3.4-4.9) Chloride Level 108 mEQ/L (98-107) H Carbon Dioxide Level 25 mEQ/L (20-30) Anion Gap 11 (5-15) Blood Urea Nitrogen 12 mg/dL (7-23) Creatinine 0.4 mg/dL (0.5-0.9) L Estimat Glomerular Filtration Rate mL/min (>60) Glucose Level 82 mg/dL (74-106) Calcium Level 9.2 mg/dL (8.6-10.2) Current Medications Medications (Trade) Dose Ordered Sig/Don Route PRN Reason Start Time Stop Time Status Last Admin Dose Admin Acetaminophen (Tylenol) 650 mg Q4H PRN ORAL T>100.5 05/04/17 21:45 06/03/17 21:44 05/08/17 09:24 Al Hydroxide/Mg Hydroxide (Mylanta II) 30 ml Q6H PRN ORAL dyspepsia 05/04/17 21:45 06/03/17 21:44 Alprazolam (Xanax) 0.25 mg Q6H PRN ORAL For Anxiety 05/04/17 21:45 05/11/17 21:44 Carvedilol (Coreg) 3.125 mg Q12HR ORAL 05/05/17 09:00 06/04/17 08:59 05/09/17 08:43 Ceftriaxone Sodium 1 gm/ Dextrose 55 ml @ 110 mls/hr Q24H IVPB 05/05/17 16:00 05/12/17 15:59 05/08/17 16:26 Chlorhexidine Gluconate (Merari-Hex 2%) 1 applic DAILY TOPIC 05/09/17 09:00 06/08/17 08:59 Clopidogrel Bisulfate (Plavix) 75 mg DAILY ORAL 05/05/17 09:00 06/04/17 08:59 05/09/17 08:43 Dextrose (Dextrose 50%) STAT PRN IV Hypoglycemia 05/04/17 21:45 06/03/17 21:44 Heparin Sodium (Porcine) (Heparin 5000 units/ml) 5,000 units EVERY 12 HOURS SUBQ 05/05/17 09:00 06/04/17 08:59 05/09/17 08:45 Insulin Aspart (NovoLOG) BEFORE MEALS AND HS SUBQ 05/05/17 06:30 06/04/17 06:29 05/07/17 21:17 Iron Sucrose 100 mg/Sodium Chloride 60 ml @ 240 mls/hr BEDTIME IVPB 05/05/17 21:00 05/09/17 21:14 05/08/17 20:25 Lorazepam (Ativan 2mg/ml 1ml) 0.5 mg Q4H PRN IV Breakthrough anxiety/agitation 05/04/17 21:45 05/11/17 21:44 Losartan Potassium (Cozaar) 25 mg DAILY ORAL 05/06/17 09:00 06/05/17 08:59 05/09/17 08:43 Mirtazapine (Remeron) 15 mg BEDTIME ORAL 05/04/17 23:00 06/03/17 22:59 05/08/17 20:24 Morphine Sulfate (Morphine Sulfate) 1 mg Q4H PRN IVP PAIN 4-10 05/04/17 21:45 05/11/17 21:44 05/08/17 09:39 Ondansetron HCl (Zofran) 4 mg Q6H PRN IVP Nausea & Vomiting 05/04/17 21:45 06/03/17 21:44 Polyethylene Glycol (Miralax) 17 gm HSPRN PRN ORAL Constipation 05/04/17 21:45 06/03/17 21:44 Rifampin (Rifadin) 300 mg EVERY 12 HOURS ORAL 05/08/17 17:00 06/16/17 16:59 05/09/17 08:42 Sertraline HCl (Zoloft) 100 mg DAILY ORAL 05/05/17 09:00 06/04/17 08:59 05/09/17 08:43 Vancomycin HCl (Vanco rx to dose) 1 ea DAILY PRN MISC Per Rx Protocol 05/05/17 15:00 06/04/17 14:59 Vancomycin HCl 500 mg/Dextrose 110 ml @ 110 mls/hr Q12HR@0200,1400 IVPB 05/06/17 02:00 06/16/17 01:59 05/09/17 15:10 Zolpidem Tartrate (Ambien) 5 mg HSPRN PRN ORAL Insomnia 05/04/17 22:00 05/11/17 21:59 05/08/17 23:32 Annie Lilly M.D. 30, 2017 15:27
[2017-05-09 16:00] VITALS: BP 119/68
[2017-05-09] MEDS: cefTRIAXone 1 GM in D5W 55 ML IVPB SCH (16:41)
--- NOTE | 2017-05-09 17:56 | Cardiac Electrophysiology PN ---
Assessment/Plan Assessment/Plan 1. Status post [employer] dual-chamber defibrillator implantation with Nl Fx with 11 years battery remaining. 2. Ischemic Cardiomyopathy with EF 30-35 . Continue Coreg and Cozaar 3. History of coronary artery disease, prior stent placed in 2013. 4. Cerebrovascular accident with left hemiplegia. 5. Carotid stenosis, status post right carotid stent placement. 6. History of gastrointestinal bleed, esophageal cancer noted in 2013. 7. Anemia. 8. Coag negative staph sepsis. Blood Cx positive three bottles, source ? suspect sacral wound. No clinical infection of ICD. TTE no vegetation. PICC line for 6 weeks abx NEETA RN Subjective Subjective Feeling better. Expecting discharge tomorrow Objective Last 24 Hour Vital Signs Date Time Temp Pulse Resp B/P (MAP) Pulse Ox O2 Delivery O2 Flow Rate FiO2 05/09/17 16:00 98.6 78 18 119/68 96 Room Air 05/09/17 11:52 97.9 72 19 125/69 97 Room Air 05/09/17 08:43 126/64 05/09/17 08:43 69 126/64 05/09/17 08:21 97.7 69 20 126/64 97 Room Air 05/09/17 04:00 97.6 71 18 120/70 97 Room Air 05/09/17 00:00 97.6 65 18 137/71 96 Room Air 05/08/17 20:25 78 150/79 05/08/17 20:00 97.8 78 18 150/79 97 Room Air Intake and Output 05/09/17 05/10/17 19:00 07:00 Intake Total 165 ml Balance 165 ml IV Total 165 ml Laboratory Tests Test 05/09/17 05:35 White Blood Count 4.7 K/UL (4.8-10.8) L Red Blood Count 2.83 M/UL (4.20-5.40) L Hemoglobin 8.6 G/DL (12.0-16.0) L Hematocrit 27.4 % (37.0-47.0) L Mean Corpuscular Volume 97 FL (80-99) Mean Corpuscular Hemoglobin 30.4 PG (27.0-31.0) Mean Corpuscular Hemoglobin Concent 31.3 G/DL (32.0-36.0) L Red Cell Distribution Width 17.3 % (11.6-14.8) H Platelet Count 219 K/UL (150-450) Mean Platelet Volume 6.0 FL (6.5-10.1) L Neutrophils (%) (Auto) 67.0 % (45.0-75.0) Lymphocytes (%) (Auto) 21.6 % (20.0-45.0) Monocytes (%) (Auto) 9.0 % (1.0-10.0) Eosinophils (%) (Auto) 1.9 % (0.0-3.0) Basophils (%) (Auto) 0.5 % (0.0-2.0) Sodium Level 144 mEQ/L (135-145) Potassium Level 4.2 mEQ/L (3.4-4.9) Chloride Level 108 mEQ/L (98-107) H Carbon Dioxide Level 25 mEQ/L (20-30) Anion Gap 11 (5-15) Blood Urea Nitrogen 12 mg/dL (7-23) Creatinine 0.4 mg/dL (0.5-0.9) L Estimat Glomerular Filtration Rate mL/min (>60) Glucose Level 82 mg/dL (74-106) Calcium Level 9.2 mg/dL (8.6-10.2) Objective t HEENT: No JVD Cardiovascular: RRR. ICD left chest intact Respiratory/Chest: chest wall non-tender, lungs clear, normal breath sounds, no respiratory distress, no accessory muscle use Abdomen: normal bowel sounds, non tender, soft, no organomegaly, no mass Extremities: left hemiparesis MARICRUZ DURON May 09, 2017 17:56
--- NOTE | 2017-05-09 18:27 | Pulmonology Progress Note ---
Assessment/Plan Problems: (1) Bacteremia (2) UTI (urinary tract infection) (3) Sacral wound (4) AICD (automatic cardioverter/defibrillator) present (5) Sick sinus syndrome (6) Cerebral vascular disease (7) Hypertension (8) Diabetes mellitus (9) Severe anemia Assessment/Plan no new complains f/u h/h anemia w/u continue abx check cultures PICC line repeat cultures all notes and meds reviewed Subjective ROS Limited/Unobtainable: No Constitutional: Reports: no symptoms HEENT: Repors: no symptoms Respiratory: Reports: no symptoms Allergies: Coded Allergies: LATEX (Unverified Allergy, Mild, Rash, 09/03/14) QUININE (Unverified Allergy, Unknown, Rash Hives, 05/23/15) Quinine Sulfate Objective Last 24 Hour Vital Signs Date Time Temp Pulse Resp B/P (MAP) Pulse Ox O2 Delivery O2 Flow Rate FiO2 05/09/17 16:00 98.6 78 18 119/68 96 Room Air 05/09/17 11:52 97.9 72 19 125/69 97 Room Air 05/09/17 08:43 126/64 05/09/17 08:43 69 126/64 05/09/17 08:21 97.7 69 20 126/64 97 Room Air 05/09/17 04:00 97.6 71 18 120/70 97 Room Air 05/09/17 00:00 97.6 65 18 137/71 96 Room Air 05/08/17 20:25 78 150/79 05/08/17 20:00 97.8 78 18 150/79 97 Room Air Intake and Output 05/09/17 05/10/17 19:00 07:00 Intake Total 165 ml Balance 165 ml IV Total 165 ml General Appearance: WD/WN HEENT: normocephalic, atraumatic, mucous membranes moist Respiratory/Chest: chest wall non-tender, lungs clear Breasts: no masses Cardiovascular: normal peripheral pulses Abdomen: normal bowel sounds, soft, non tender Genitourinary: normal external genitalia Extremities: no cyanosis Skin: no rash 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 Laboratory Tests 05/09/17 05:35: White Blood Count 4.7L, Red Blood Count 2.83L, Hemoglobin 8.6L, Hematocrit 27.4L , Mean Corpuscular Volume 97, Mean Corpuscular Hemoglobin 30.4, Mean Corpuscular Hemoglobin Concent 31.3L, Red Cell Distribution Width 17.3H, Platelet Count 219, Mean Platelet Volume 6.0L, Neutrophils (%) (Auto) 67.0, Lymphocytes (%) (Auto) 21.6, Monocytes (%) (Auto) 9.0, Eosinophils (%) (Auto) 1.9, Basophils (%) (Auto) 0.5, Sodium Level 144, Potassium Level 4.2, Chloride Level 108H, Carbon Dioxide Level 25, Anion Gap 11, Blood Urea Nitrogen 12, Creatinine 0.4L, Estimat Glomerular Filtration Rate , Glucose Level 82, Calcium Level 9.2 Current Medications Medications (Trade) Dose Ordered Sig/Don Route PRN Reason Start Time Stop Time Status Last Admin Dose Admin Acetaminophen (Tylenol) 650 mg Q4H PRN ORAL T>100.5 05/04/17 21:45 06/03/17 21:44 05/08/17 09:24 Al Hydroxide/Mg Hydroxide (Mylanta II) 30 ml Q6H PRN ORAL dyspepsia 05/04/17 21:45 06/03/17 21:44 Alprazolam (Xanax) 0.25 mg Q6H PRN ORAL For Anxiety 05/04/17 21:45 05/11/17 21:44 Carvedilol (Coreg) 3.125 mg Q12HR ORAL 05/05/17 09:00 06/04/17 08:59 05/09/17 08:43 Ceftriaxone Sodium 1 gm/ Dextrose 55 ml @ 110 mls/hr Q24H IVPB 05/05/17 16:00 05/12/17 15:59 05/09/17 16:41 Chlorhexidine Gluconate (Merari-Hex 2%) 1 applic DAILY TOPIC 05/09/17 09:00 06/08/17 08:59 Clopidogrel Bisulfate (Plavix) 75 mg DAILY ORAL 05/05/17 09:00 06/04/17 08:59 05/09/17 08:43 Dextrose (Dextrose 50%) STAT PRN IV Hypoglycemia 05/04/17 21:45 06/03/17 21:44 Heparin Sodium (Porcine) (Heparin 5000 units/ml) 5,000 units EVERY 12 HOURS SUBQ 05/05/17 09:00 06/04/17 08:59 05/09/17 08:45 Insulin Aspart (NovoLOG) BEFORE MEALS AND HS SUBQ 05/05/17 06:30 06/04/17 06:29 05/07/17 21:17 Iron Sucrose 100 mg/Sodium Chloride 60 ml @ 240 mls/hr BEDTIME IVPB 05/05/17 21:00 05/09/17 21:14 05/08/17 20:25 Lorazepam (Ativan 2mg/ml 1ml) 0.5 mg Q4H PRN IV Breakthrough anxiety/agitation 05/04/17 21:45 05/11/17 21:44 Losartan Potassium (Cozaar) 25 mg DAILY ORAL 05/06/17 09:00 06/05/17 08:59 05/09/17 08:43 Mirtazapine (Remeron) 15 mg BEDTIME ORAL 05/04/17 23:00 06/03/17 22:59 05/08/17 20:24 Morphine Sulfate (Morphine Sulfate) 1 mg Q4H PRN IVP PAIN 4-10 05/04/17 21:45 05/11/17 21:44 05/08/17 09:39 Ondansetron HCl (Zofran) 4 mg Q6H PRN IVP Nausea & Vomiting 05/04/17 21:45 06/03/17 21:44 Polyethylene Glycol (Miralax) 17 gm HSPRN PRN ORAL Constipation 05/04/17 21:45 06/03/17 21:44 Rifampin (Rifadin) 300 mg EVERY 12 HOURS ORAL 05/08/17 17:00 06/16/17 16:59 05/09/17 08:42 Sertraline HCl (Zoloft) 100 mg DAILY ORAL 05/05/17 09:00 06/04/17 08:59 05/09/17 08:43 Vancomycin HCl (Vanco rx to dose) 1 ea DAILY PRN MISC Per Rx Protocol 05/05/17 15:00 06/04/17 14:59 Vancomycin HCl 500 mg/Dextrose 110 ml @ 110 mls/hr Q12HR@0200,1400 IVPB 05/06/17 02:00 06/16/17 01:59 05/09/17 15:10 Zolpidem Tartrate (Ambien) 5 mg HSPRN PRN ORAL Insomnia 05/04/17 22:00 9/1/17 21:59 05/08/17 23:32 MARLENY TURPIN May 09, 2017 18:27
[2017-05-09 20:20] VITALS: BP 121/66
[2017-05-09] MEDS: Iron Sucrose 100 MG in NS 55 ML IVPB SCH (20:41)
[2017-05-10] VITALS (7 sets, daily range): BP systolic 130–151; BP diastolic 62–81
[2017-05-10] MEDS: Vancomycin 500mg/D5W 110ml IVPB SCH ×4 (02:09→14:10)
[2017-05-10] MEDS: NovoLOG Insulin Flexpen SUBQ SCH ×4 (05:55→21:00)
[2017-05-10 06:36] LABS: MEAN CORPUSCULAR HEMOGLOBIN 30.3 PG (27.0-31.0); MEAN CORPUSCULAR HGB CONC 31.2 G/DL (32.0-36.0); MEAN CORPUSCULAR VOLUME 97 FL (80-99); MEAN PLATELET VOLUME 6.5 FL (6.5-10.1); PLATELET COUNT 190 K/UL (150-450); RED BLOOD COUNT 2.43 M/UL (4.20-5.40); RED CELL DISTRIBUTION WIDTH 17.3 % (11.6-14.8); WHITE BLOOD COUNT 6.2 K/UL (4.8-10.8)
[2017-05-10 06:42] LABS: ANION GAP 7 (5-15); CALCIUM 8.8 mg/dL (8.6-10.2); CARBON DIOXIDE 29 mEQ/L (20-30); CHLORIDE 106 mEQ/L (98-107); CREATININE 0.5 mg/dL (0.5-0.9); HEMOLYSIS 3; SODIUM 142 mEQ/L (135-145)
[2017-05-10 08:48] LABS: ANISOCYTOSIS 1+; BAND NEUTROPHILS % (MANUAL) 0 % (0-8); BASOPHILS % (MANUAL) 0 % (0-2); EOSINOPHILS % (MANUAL) 1 % (0-3); HYPOCHROMASIA 1+; LYMPHOCYTES % (MANUAL) 25 % (20-45); NEUTROPHILS % (MANUAL) 73 % (45-75); PLATELET ESTIMATE ADEQUATE; PLATELET MORPHOLOGY NORMAL; TOTAL CELLS COUNTED 100
[2017-05-10] MEDS: Sertraline 100mg tab ORAL SCH (09:42)
[2017-05-10] MEDS: Dyna-Hex 2% Top Sol 8oz TOPIC SCH (09:42)
[2017-05-10] MEDS: Losartan 25mg tab ORAL SCH (09:43)
[2017-05-10] MEDS: Heparin 5000 units/ml inj SUBQ SCH ×2 (09:45→20:59)
[2017-05-10] MEDS ORDERED: CEFTRIAXON1 GM/50 ML IV ×2 (11:45→11:48)
--- NOTE | 2017-05-10 15:08 | Internal Med Progress Note ---
Subjective Date of Service: May 10, 2017 Physician Name Delfin Martinez Attending Physician Lobito Jones MD Current Medications Medications (Trade) Dose Ordered Sig/Don Route PRN Reason Start Time Stop Time Status Last Admin Dose Admin Acetaminophen (Tylenol) 650 mg Q4H PRN ORAL T>100.5 05/04/17 21:45 06/03/17 21:44 05/08/17 09:24 Al Hydroxide/Mg Hydroxide (Mylanta II) 30 ml Q6H PRN ORAL dyspepsia 05/04/17 21:45 06/03/17 21:44 Alprazolam (Xanax) 0.25 mg Q6H PRN ORAL For Anxiety 05/04/17 21:45 05/11/17 21:44 Carvedilol (Coreg) 3.125 mg Q12HR ORAL 05/05/17 09:00 06/04/17 08:59 05/10/17 09:43 Ceftriaxone Sodium 1 gm/ Dextrose 55 ml @ 110 mls/hr Q24H IVPB 05/05/17 16:00 05/12/17 15:59 05/09/17 16:41 Chlorhexidine Gluconate (Merari-Hex 2%) 1 applic DAILY TOPIC 05/09/17 09:00 06/08/17 08:59 05/10/17 09:42 Clopidogrel Bisulfate (Plavix) 75 mg DAILY ORAL 05/05/17 09:00 06/04/17 08:59 05/10/17 09:42 Dextrose (Dextrose 50%) STAT PRN IV Hypoglycemia 05/04/17 21:45 06/03/17 21:44 Heparin Sodium (Porcine) (Heparin 5000 units/ml) 5,000 units EVERY 12 HOURS SUBQ 05/05/17 09:00 06/04/17 08:59 05/10/17 09:45 Insulin Aspart (NovoLOG) BEFORE MEALS AND HS SUBQ 05/05/17 06:30 06/04/17 06:29 05/09/17 20:45 Lorazepam (Ativan 2mg/ml 1ml) 0.5 mg Q4H PRN IV Breakthrough anxiety/agitation 05/04/17 21:45 05/11/17 21:44 Losartan Potassium (Cozaar) 25 mg DAILY ORAL 05/06/17 09:00 06/05/17 08:59 05/10/17 09:43 Mirtazapine (Remeron) 15 mg BEDTIME ORAL 05/04/17 23:00 06/03/17 22:59 05/09/17 20:41 Morphine Sulfate (Morphine Sulfate) 1 mg Q4H PRN IVP PAIN 4-10 05/04/17 21:45 05/11/17 21:44 05/08/17 09:39 Ondansetron HCl (Zofran) 4 mg Q6H PRN IVP Nausea & Vomiting 05/04/17 21:45 06/03/17 21:44 Polyethylene Glycol (Miralax) 17 gm HSPRN PRN ORAL Constipation 05/04/17 21:45 06/03/17 21:44 Rifampin (Rifadin) 300 mg EVERY 12 HOURS ORAL 05/08/17 17:00 06/16/17 16:59 05/10/17 09:43 Sertraline HCl (Zoloft) 100 mg DAILY ORAL 05/05/17 09:00 06/04/17 08:59 05/10/17 09:42 Vancomycin HCl (Vanco rx to dose) 1 ea DAILY PRN MISC Per Rx Protocol 05/05/17 15:00 06/04/17 14:59 Vancomycin HCl 500 mg/Dextrose 110 ml @ 110 mls/hr Q12HR@0200,1400 IVPB 05/06/17 02:00 06/16/17 01:59 05/10/17 14:10 Zolpidem Tartrate (Ambien) 5 mg HSPRN PRN ORAL Insomnia 05/04/17 22:00 05/11/17 21:59 05/08/17 23:32 Allergies: Coded Allergies: LATEX (Unverified Allergy, Mild, Rash, 09/03/14) QUININE (Unverified Allergy, Unknown, Rash Hives, 05/23/15) Quinine Sulfate ROS Limited/Unobtainable: No Constitutional: Reports: no symptoms HEENT: Reports: no symptoms Cardiovascular: Reports: no symptoms Respiratory: Reports: no symptoms Gastrointestinal/Abdominal: Reports: no symptoms Genitourinary: Reports: no symptoms Neurologic/Psychiatric: Reports: no symptoms Subjective 76 YO F admitted with altered mental status. Now UTI and Sepsis. Cover for Int Madan-Dr Jones. Await insurance eligibility for Home health and home IV antibiotic for 6 weeks Objective Last Vital Signs Date Time Temp Pulse Resp B/P (MAP) Pulse Ox O2 Delivery O2 Flow Rate FiO2 05/10/17 12:00 97.7 73 18 151/81 97 Room Air Laboratory Tests Test 05/10/17 05:00 White Blood Count 6.2 K/UL (4.8-10.8) Red Blood Count 2.43 M/UL (4.20-5.40) L Hemoglobin 7.4 G/DL (12.0-16.0) L Hematocrit 23.6 % (37.0-47.0) L Mean Corpuscular Volume 97 FL (80-99) Mean Corpuscular Hemoglobin 30.3 PG (27.0-31.0) Mean Corpuscular Hemoglobin Concent 31.2 G/DL (32.0-36.0) L Red Cell Distribution Width 17.3 % (11.6-14.8) H Platelet Count 190 K/UL (150-450) Mean Platelet Volume 6.5 FL (6.5-10.1) Neutrophils (%) (Auto) % (45.0-75.0) Lymphocytes (%) (Auto) % (20.0-45.0) Monocytes (%) (Auto) % (1.0-10.0) Eosinophils (%) (Auto) % (0.0-3.0) Basophils (%) (Auto) % (0.0-2.0) Differential Total Cells Counted 100 Neutrophils % (Manual) 73 % (45-75) Lymphocytes % (Manual) 25 % (20-45) Monocytes % (Manual) 1 % (1-10) Eosinophils % (Manual) 1 % (0-3) Basophils % (Manual) 0 % (0-2) Band Neutrophils 0 % (0-8) Platelet Estimate Adequate Platelet Morphology Normal Hypochromasia 1+ Anisocytosis 1+ Sodium Level 142 mEQ/L (135-145) Potassium Level 4.0 mEQ/L (3.4-4.9) Chloride Level 106 mEQ/L (98-107) Carbon Dioxide Level 29 mEQ/L (20-30) Anion Gap 7 (5-15) Blood Urea Nitrogen 14 mg/dL (7-23) Creatinine 0.5 mg/dL (0.5-0.9) Estimat Glomerular Filtration Rate mL/min (>60) Glucose Level 98 mg/dL (74-106) Calcium Level 8.8 mg/dL (8.6-10.2) Microbiology Date/Time Source Procedure Growth Status 05/08/17 14:00 Blood Blood Culture - Preliminary NO GROWTH AFTER 24 HOURS Resulted 05/08/17 13:50 Blood Blood Culture - Preliminary NO GROWTH AFTER 24 HOURS Resulted Objective General Appearance: WD/WN, no apparent distress, alert EENT: PERRL/EOMI, normal ENT inspection Neck: non-tender, normal alignment, supple, normal inspection Cardiovascular: normal peripheral pulses, normal rate, regular rhythm, no gallop/murmur, no JVD Respiratory/Chest: chest wall non-tender, lungs clear, normal breath sounds, no respiratory distress, no accessory muscle use Abdomen: normal bowel sounds, non tender, soft, no organomegaly, no mass Extremities: other - left hemiparesis 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 See ID note concerning source. Await JANIE to R/O endocarditis. Await repeat blood cultures. Cont vanco for 6 weeks per ID. Await PICC placement (4) Diarrhea Assessment & Plan: Resolved. (5) Fracture (6) Severe anemia Assessment & Plan: Worsening. Restorationism. Cont IV venofer. (7) DVT (deep venous thrombosis) (8) CVA (cerebrovascular accident) (9) CAD (coronary artery disease) Assessment & Plan: see cardiology note. (10) Diabetes mellitus Assessment & Plan: Cont novolog slideng scale (11) CHF (congestive heart failure) (12) UTI (urinary tract infection) Assessment & Plan: E. Coli. Continue ceftriaxone for 7 days per ID Status: stable Assessment/Plan Discharge planning: Daughter refused SNF (patient out of Medicare days) ; Await insurance eligibility for home IV antibiotic-see environmental emergencies planner note DELFIN MARTINEZ May 10, 2017 15:08
--- NOTE | 2017-05-10 16:07 | Pulmonology Progress Note ---
Assessment/Plan Problems: (1) UTI (urinary tract infection) (2) Sacral wound (3) AICD (automatic cardioverter/defibrillator) present (4) Sick sinus syndrome (5) Cerebral vascular disease (6) Hypertension (7) Diabetes mellitus (8) Severe anemia Assessment/Plan no new complains f/u h/h anemia w/u continue abx check cultures PICC line repeat cultures all notes and meds reviewed Subjective ROS Limited/Unobtainable: No Constitutional: Reports: no symptoms HEENT: Repors: no symptoms Respiratory: Reports: no symptoms Allergies: Coded Allergies: LATEX (Unverified Allergy, Mild, Rash, 09/03/14) QUININE (Unverified Allergy, Unknown, Rash Hives, 05/23/15) Quinine Sulfate Objective Last 24 Hour Vital Signs Date Time Temp Pulse Resp B/P (MAP) Pulse Ox O2 Delivery O2 Flow Rate FiO2 05/10/17 12:00 97.7 73 18 151/81 97 Room Air 05/10/17 09:43 141/77 05/10/17 09:43 75 141/77 05/10/17 09:40 97.7 75 18 141/77 97 Room Air 05/10/17 08:00 97.7 75 18 141/77 97 Room Air 05/10/17 04:00 97.9 70 20 144/62 97 Room Air 05/10/17 00:04 97.5 74 18 131/62 97 Room Air 05/09/17 20:41 79 121/66 05/09/17 20:20 98.1 79 17 121/66 100 Room Air Intake and Output 05/10/17 05/11/17 19:00 07:00 Intake Total 450 ml Balance 450 ml Intake Oral 450 ml General Appearance: WD/WN, cachetic HEENT: normocephalic, atraumatic Respiratory/Chest: chest wall non-tender, lungs clear Cardiovascular: normal peripheral pulses, normal rate Abdomen: normal bowel sounds, soft, non tender Genitourinary: normal external genitalia Skin: no rash, no ulcers Neurologic/Psychiatric: no motor/sensory deficits Microbiology Date/Time Source Procedure Growth Status 05/08/17 14:00 Blood Blood Culture - Preliminary NO GROWTH AFTER 24 HOURS Resulted 05/08/17 13:50 Blood Blood Culture - Preliminary NO GROWTH AFTER 24 HOURS Resulted Laboratory Tests 05/10/17 05:00: White Blood Count 6.2, Red Blood Count 2.43L, Hemoglobin 7.4L, Hematocrit 23.6L , Mean Corpuscular Volume 97, Mean Corpuscular Hemoglobin 30.3, Mean Corpuscular Hemoglobin Concent 31.2L, Red Cell Distribution Width 17.3H, Platelet Count 190, Mean Platelet Volume 6.5, Neutrophils (%) (Auto) , Lymphocytes (%) (Auto) , Monocytes (%) (Auto) , Eosinophils (%) (Auto) , Basophils (%) (Auto) , Differential Total Cells Counted 100, Neutrophils % ( Manual) 73, Lymphocytes % (Manual) 25, Monocytes % (Manual) 1, Eosinophils % ( Manual) 1, Basophils % (Manual) 0, Band Neutrophils 0, Platelet Estimate Adequate, Platelet Morphology Normal, Hypochromasia 1+, Anisocytosis 1+, Sodium Level 142, Potassium Level 4.0, Chloride Level 106, Carbon Dioxide Level 29, Anion Gap 7, Blood Urea Nitrogen 14, Creatinine 0.5, Estimat Glomerular Filtration Rate , Glucose Level 98, Calcium Level 8.8 Current Medications Medications (Trade) Dose Ordered Sig/Don Route PRN Reason Start Time Stop Time Status Last Admin Dose Admin Acetaminophen (Tylenol) 650 mg Q4H PRN ORAL T>100.5 05/04/17 21:45 06/03/17 21:44 05/08/17 09:24 Al Hydroxide/Mg Hydroxide (Mylanta II) 30 ml Q6H PRN ORAL dyspepsia 05/04/17 21:45 06/03/17 21:44 Alprazolam (Xanax) 0.25 mg Q6H PRN ORAL For Anxiety 05/04/17 21:45 05/11/17 21:44 Carvedilol (Coreg) 3.125 mg Q12HR ORAL 05/05/17 09:00 06/04/17 08:59 05/10/17 09:43 Ceftriaxone Sodium 1 gm/ Dextrose 55 ml @ 110 mls/hr Q24H IVPB 05/05/17 16:00 05/12/17 15:59 05/09/17 16:41 Chlorhexidine Gluconate (Merari-Hex 2%) 1 applic DAILY TOPIC 05/09/17 09:00 06/08/17 08:59 05/10/17 09:42 Clopidogrel Bisulfate (Plavix) 75 mg DAILY ORAL 05/05/17 09:00 06/04/17 08:59 05/10/17 09:42 Dextrose (Dextrose 50%) STAT PRN IV Hypoglycemia 05/04/17 21:45 06/03/17 21:44 Heparin Sodium (Porcine) (Heparin 5000 units/ml) 5,000 units EVERY 12 HOURS SUBQ 05/05/17 09:00 06/04/17 08:59 05/10/17 09:45 Insulin Aspart (NovoLOG) BEFORE MEALS AND HS SUBQ 05/05/17 06:30 06/04/17 06:29 05/09/17 20:45 Lorazepam (Ativan 2mg/ml 1ml) 0.5 mg Q4H PRN IV Breakthrough anxiety/agitation 05/04/17 21:45 05/11/17 21:44 Losartan Potassium (Cozaar) 25 mg DAILY ORAL 05/06/17 09:00 06/05/17 08:59 05/10/17 09:43 Mirtazapine (Remeron) 15 mg BEDTIME ORAL 05/04/17 23:00 06/03/17 22:59 05/09/17 20:41 Morphine Sulfate (Morphine Sulfate) 1 mg Q4H PRN IVP PAIN 4-10 05/04/17 21:45 05/11/17 21:44 05/08/17 09:39 Ondansetron HCl (Zofran) 4 mg Q6H PRN IVP Nausea & Vomiting 05/04/17 21:45 06/03/17 21:44 Polyethylene Glycol (Miralax) 17 gm HSPRN PRN ORAL Constipation 05/04/17 21:45 06/03/17 21:44 Rifampin (Rifadin) 300 mg EVERY 12 HOURS ORAL 05/08/17 17:00 06/16/17 16:59 05/10/17 09:43 Sertraline HCl (Zoloft) 100 mg DAILY ORAL 05/05/17 09:00 06/04/17 08:59 05/10/17 09:42 Vancomycin HCl (Vanco rx to dose) 1 ea DAILY PRN MISC Per Rx Protocol 05/05/17 15:00 06/04/17 14:59 Vancomycin HCl 500 mg/Dextrose 110 ml @ 110 mls/hr Q12HR@0200,1400 IVPB 05/06/17 02:00 06/16/17 01:59 05/10/17 14:10 Zolpidem Tartrate (Ambien) 5 mg HSPRN PRN ORAL Insomnia 05/04/17 22:00 05/11/17 21:59 05/08/17 23:32 MARLENY TURPIN May 10, 2017 16:07
[2017-05-10] MEDS: cefTRIAXone 1 GM in D5W 55 ML IVPB SCH (16:23)
[2017-05-10 16:35] LABS: BASOPHILS % (AUTO) 0.8 % (0.0-2.0); EOSINOPHILS % (AUTO) 1.4 % (0.0-3.0); LYMPHOCYTES % (AUTO) 18.9 % (20.0-45.0); MEAN CORPUSCULAR HEMOGLOBIN 32.5 PG (27.0-31.0); MEAN CORPUSCULAR HGB CONC 34.2 G/DL (32.0-36.0); MEAN CORPUSCULAR VOLUME 95 FL (80-99); MEAN PLATELET VOLUME 5.9 FL (6.5-10.1); MONOCYTES % (AUTO) 13.2 % (1.0-10.0); NEUTROPHILS % (AUTO) 65.6 % (45.0-75.0); PLATELET COUNT 163 K/UL (150-450); RED BLOOD COUNT 2.92 M/UL (4.20-5.40); WHITE BLOOD COUNT 5.5 K/UL (4.8-10.8)
--- NOTE | 2017-05-10 17:21 | Infectious Diseases Prog Note ---
Assessment/Plan Problems: (1) UTI (urinary tract infection) Assessment & Plan: with E coli sensitive to ceftriaxon , will treat for 7 days . EOT 05/12/17 (2) Sepsis Assessment & Plan: due to coag negative staph which grew out of three bottles so far , most likely real infection, source ? suspect sacral wound , transthoracic echo didn't show vegetations, but not the ideal test to rule out [place] valve endocarditis or AICD leads endocarditis , so will add rifampin to the vancomycin and treat for 6 weeks total to cover for possible endocarditis .pharmacy to monitor trough and adjust dose as needed to keep between 15-20. repeated blood culture to confirm clearance is negative on . EOT 06/19/17. RECOMMEND : 1.weekly labs: CBC, CMP while on antibiotics 2.biweekly vancomycin trough at least to keep between 15-20 (3) Cerebral vascular disease Assessment & Plan: old, stable. continue off loading as needed (4) Sacral wound Assessment & Plan: not infected, continue off loading and local care (5) Diabetes mellitus Assessment & Plan: recommend tight glycemic control to keep blood glucose between 80-120 Subjective Constitutional: Reports: no symptoms HEENT: Reports: no symptoms Respiratory: Reports: no symptoms Breasts: Reports: no symptoms Cardiovascular: Reports: no symptoms Gastrointestinal/Abdominal: Reports: no symptoms Genitourinary: Reports: no symptoms Neurologic: Reports: no symptoms Psychiatric: Reports: no symptoms Skin: Reports: no symptoms Endocrine: Reports: no symptoms Hematologic: Reports: no symptoms Allergies: Coded Allergies: LATEX (Unverified Allergy, Mild, Rash, 09/03/14) QUININE (Unverified Allergy, Unknown, Rash Hives, 05/23/15) Quinine Sulfate Subjective she was awake and alert, up in bed, follows commands , no fever or chills, no diarrhea . Objective Vital Signs Last 24 Hour Vital Signs Date Time Temp Pulse Resp B/P (MAP) Pulse Ox O2 Delivery O2 Flow Rate FiO2 05/10/17 16:00 98.2 66 20 133/70 98 Room Air 05/10/17 12:00 97.7 73 18 151/81 97 Room Air 05/10/17 09:43 141/77 05/10/17 09:43 75 141/77 05/10/17 09:40 97.7 75 18 141/77 97 Room Air 05/10/17 08:00 97.7 75 18 141/77 97 Room Air 05/10/17 04:00 97.9 70 20 144/62 97 Room Air 05/10/17 00:04 97.5 74 18 131/62 97 Room Air 05/09/17 20:41 79 121/66 05/09/17 20:20 98.1 79 17 121/66 100 Room Air Height (Feet): 5 Height (Inches): 4.00 Weight (Pounds): 130 General Appearance: WD/WN, no acute distress HEENT: normocephalic, atraumatic, anicteric, mucous membranes moist, PERRL, EOMI, pharynx normal, supple, no JVD Respiratory/Chest: chest wall non-tender, lungs clear, normal breath sounds, no respiratory distress, no accessory muscle use Cardiovascular: normal peripheral pulses, normal rate, regular rhythm, no gallop/murmur, no JVD Abdomen: normal bowel sounds, soft, non tender, no organomegaly, non distended , no mass, no scars Extremities: no cyanosis, no clubbing Skin: no rash, no lesions, ulcers Neurologic/Psychiatric: alert, responsive Lymphatic: no neck adenopathy, no groin adenopathy Microbiology Date/Time Source Procedure Growth Status 05/08/17 14:00 Blood Blood Culture - Preliminary NO GROWTH AFTER 24 HOURS Resulted 05/08/17 13:50 Blood Blood Culture - Preliminary NO GROWTH AFTER 24 HOURS Resulted Laboratory Tests Test 05/10/17 05:00 05/10/17 15:55 White Blood Count 6.2 K/UL (4.8-10.8) 5.5 K/UL (4.8-10.8) Red Blood Count 2.43 M/UL (4.20-5.40) L 2.92 M/UL (4.20-5.40) L Hemoglobin 7.4 G/DL (12.0-16.0) L 9.5 G/DL (12.0-16.0) L Hematocrit 23.6 % (37.0-47.0) L 27.7 % (37.0-47.0) L Mean Corpuscular Volume 97 FL (80-99) 95 FL (80-99) Mean Corpuscular Hemoglobin 30.3 PG (27.0-31.0) 32.5 PG (27.0-31.0) H Mean Corpuscular Hemoglobin Concent 31.2 G/DL (32.0-36.0) L 34.2 G/DL (32.0-36.0) Red Cell Distribution Width 17.3 % (11.6-14.8) H 18.0 % (11.6-14.8) H Platelet Count 190 K/UL (150-450) 163 K/UL (150-450) Mean Platelet Volume 6.5 FL (6.5-10.1) 5.9 FL (6.5-10.1) L Neutrophils (%) (Auto) % (45.0-75.0) 65.6 % (45.0-75.0) Lymphocytes (%) (Auto) % (20.0-45.0) 18.9 % (20.0-45.0) L Monocytes (%) (Auto) % (1.0-10.0) 13.2 % (1.0-10.0) H Eosinophils (%) (Auto) % (0.0-3.0) 1.4 % (0.0-3.0) Basophils (%) (Auto) % (0.0-2.0) 0.8 % (0.0-2.0) Differential Total Cells Counted 100 Neutrophils % (Manual) 73 % (45-75) Lymphocytes % (Manual) 25 % (20-45) Monocytes % (Manual) 1 % (1-10) Eosinophils % (Manual) 1 % (0-3) Basophils % (Manual) 0 % (0-2) Band Neutrophils 0 % (0-8) Platelet Estimate Adequate Platelet Morphology Normal Hypochromasia 1+ Anisocytosis 1+ Sodium Level 142 mEQ/L (135-145) Potassium Level 4.0 mEQ/L (3.4-4.9) Chloride Level 106 mEQ/L (98-107) Carbon Dioxide Level 29 mEQ/L (20-30) Anion Gap 7 (5-15) Blood Urea Nitrogen 14 mg/dL (7-23) Creatinine 0.5 mg/dL (0.5-0.9) Estimat Glomerular Filtration Rate mL/min (>60) Glucose Level 98 mg/dL (74-106) Calcium Level 8.8 mg/dL (8.6-10.2) Current Medications Medications (Trade) Dose Ordered Sig/Don Route PRN Reason Start Time Stop Time Status Last Admin Dose Admin Acetaminophen (Tylenol) 650 mg Q4H PRN ORAL T>100.5 05/04/17 21:45 06/03/17 21:44 05/08/17 09:24 Al Hydroxide/Mg Hydroxide (Mylanta II) 30 ml Q6H PRN ORAL dyspepsia 05/04/17 21:45 06/03/17 21:44 Alprazolam (Xanax) 0.25 mg Q6H PRN ORAL For Anxiety 05/04/17 21:45 05/11/17 21:44 Carvedilol (Coreg) 3.125 mg Q12HR ORAL 05/05/17 09:00 06/04/17 08:59 05/10/17 09:43 Ceftriaxone Sodium 1 gm/ Dextrose 55 ml @ 110 mls/hr Q24H IVPB 05/05/17 16:00 05/12/17 15:59 05/10/17 16:23 Chlorhexidine Gluconate (Merari-Hex 2%) 1 applic DAILY TOPIC 05/09/17 09:00 06/08/17 08:59 05/10/17 09:42 Clopidogrel Bisulfate (Plavix) 75 mg DAILY ORAL 05/05/17 09:00 06/04/17 08:59 05/10/17 09:42 Dextrose (Dextrose 50%) STAT PRN IV Hypoglycemia 05/04/17 21:45 06/03/17 21:44 Heparin Sodium (Porcine) (Heparin 5000 units/ml) 5,000 units EVERY 12 HOURS SUBQ 05/05/17 09:00 06/04/17 08:59 05/10/17 09:45 Insulin Aspart (NovoLOG) BEFORE MEALS AND HS SUBQ 05/05/17 06:30 06/04/17 06:29 05/10/17 16:55 Lorazepam (Ativan 2mg/ml 1ml) 0.5 mg Q4H PRN IV Breakthrough anxiety/agitation 05/04/17 21:45 05/11/17 21:44 Losartan Potassium (Cozaar) 25 mg DAILY ORAL 05/06/17 09:00 06/05/17 08:59 05/10/17 09:43 Mirtazapine (Remeron) 15 mg BEDTIME ORAL 05/04/17 23:00 06/03/17 22:59 05/09/17 20:41 Morphine Sulfate (Morphine Sulfate) 1 mg Q4H PRN IVP PAIN 4-10 05/04/17 21:45 05/11/17 21:44 05/08/17 09:39 Ondansetron HCl (Zofran) 4 mg Q6H PRN IVP Nausea & Vomiting 05/04/17 21:45 06/03/17 21:44 Polyethylene Glycol (Miralax) 17 gm HSPRN PRN ORAL Constipation 05/04/17 21:45 06/03/17 21:44 Rifampin (Rifadin) 300 mg EVERY 12 HOURS ORAL 05/08/17 17:00 06/16/17 16:59 05/10/17 09:43 Sertraline HCl (Zoloft) 100 mg DAILY ORAL 05/05/17 09:00 06/04/17 08:59 05/10/17 09:42 Vancomycin HCl (Vanco rx to dose) 1 ea DAILY PRN MISC Per Rx Protocol 05/05/17 15:00 06/04/17 14:59 Vancomycin HCl 500 mg/Dextrose 110 ml @ 110 mls/hr Q12HR@0200,1400 IVPB 05/06/17 02:00 06/16/17 01:59 05/10/17 14:10 Zolpidem Tartrate (Ambien) 5 mg HSPRN PRN ORAL Insomnia 05/04/17 22:00 05/11/17 21:59 05/08/17 23:32 Annie Lilly M.D. May 10, 2017 17:21
--- NOTE | 2017-05-10 17:57 | Cardiac Electrophysiology PN ---
Assessment/Plan Assessment/Plan 1. Status post [employer] dual-chamber defibrillator implantation with Nl Fx with 11 years battery remaining. 2. CHF due to Ischemic cardiomyopathy with EF 30-35 . Continue Coreg and Cozaar 3. History of coronary artery disease, prior stent placed in 2013. 4. Cerebrovascular accident with left hemiplegia. 5. Carotid stenosis, status post right carotid stent placement. 6. History of gastrointestinal bleed, esophageal cancer noted in 2013. 7. Anemia. 8. Coag negative staph sepsis. Blood Cx positive three bottles, source ? suspect sacral wound. No clinical infection of ICD. TTE no vegetation. PICC line for 6 weeks abx DW RN DC planning in am. Subjective Subjective Feeling better. Discharge home postponed to tomorrow. No chest pain or SOB Objective Last 24 Hour Vital Signs Date Time Temp Pulse Resp B/P (MAP) Pulse Ox O2 Delivery O2 Flow Rate FiO2 05/10/17 16:00 98.2 66 20 133/70 98 Room Air 05/10/17 12:00 97.7 73 18 151/81 97 Room Air 05/10/17 09:43 141/77 05/10/17 09:43 75 141/77 05/10/17 09:40 97.7 75 18 141/77 97 Room Air 05/10/17 08:00 97.7 75 18 141/77 97 Room Air 05/10/17 04:00 97.9 70 20 144/62 97 Room Air 05/10/17 00:04 97.5 74 18 131/62 97 Room Air 05/09/17 20:41 79 121/66 05/09/17 20:20 98.1 79 17 121/66 100 Room Air Intake and Output 05/10/17 05/11/17 19:00 07:00 Intake Total 450 ml Balance 450 ml Intake Oral 450 ml Laboratory Tests Test 05/10/17 05:00 05/10/17 15:55 White Blood Count 6.2 K/UL (4.8-10.8) 5.5 K/UL (4.8-10.8) Red Blood Count 2.43 M/UL (4.20-5.40) L 2.92 M/UL (4.20-5.40) L Hemoglobin 7.4 G/DL (12.0-16.0) L 9.5 G/DL (12.0-16.0) L Hematocrit 23.6 % (37.0-47.0) L 27.7 % (37.0-47.0) L Mean Corpuscular Volume 97 FL (80-99) 95 FL (80-99) Mean Corpuscular Hemoglobin 30.3 PG (27.0-31.0) 32.5 PG (27.0-31.0) H Mean Corpuscular Hemoglobin Concent 31.2 G/DL (32.0-36.0) L 34.2 G/DL (32.0-36.0) Red Cell Distribution Width 17.3 % (11.6-14.8) H 18.0 % (11.6-14.8) H Platelet Count 190 K/UL (150-450) 163 K/UL (150-450) Mean Platelet Volume 6.5 FL (6.5-10.1) 5.9 FL (6.5-10.1) L Neutrophils (%) (Auto) % (45.0-75.0) 65.6 % (45.0-75.0) Lymphocytes (%) (Auto) % (20.0-45.0) 18.9 % (20.0-45.0) L Monocytes (%) (Auto) % (1.0-10.0) 13.2 % (1.0-10.0) H Eosinophils (%) (Auto) % (0.0-3.0) 1.4 % (0.0-3.0) Basophils (%) (Auto) % (0.0-2.0) 0.8 % (0.0-2.0) Differential Total Cells Counted 100 Neutrophils % (Manual) 73 % (45-75) Lymphocytes % (Manual) 25 % (20-45) Monocytes % (Manual) 1 % (1-10) Eosinophils % (Manual) 1 % (0-3) Basophils % (Manual) 0 % (0-2) Band Neutrophils 0 % (0-8) Platelet Estimate Adequate Platelet Morphology Normal Hypochromasia 1+ Anisocytosis 1+ Sodium Level 142 mEQ/L (135-145) Potassium Level 4.0 mEQ/L (3.4-4.9) Chloride Level 106 mEQ/L (98-107) Carbon Dioxide Level 29 mEQ/L (20-30) Anion Gap 7 (5-15) Blood Urea Nitrogen 14 mg/dL (7-23) Creatinine 0.5 mg/dL (0.5-0.9) Estimat Glomerular Filtration Rate mL/min (>60) Glucose Level 98 mg/dL (74-106) Calcium Level 8.8 mg/dL (8.6-10.2) Microbiology Date/Time Source Procedure Growth Status 05/08/17 14:00 Blood Blood Culture - Preliminary NO GROWTH AFTER 24 HOURS Resulted 05/08/17 13:50 Blood Blood Culture - Preliminary NO GROWTH AFTER 24 HOURS Resulted Objective t HEENT: No JVD Cardiovascular: RRR. ICD left chest intact Respiratory/Chest: lungs clear, normal breath sounds, no respiratory distress , no accessory muscle use Abdomen: normal bowel sounds, non tender, soft, no organomegaly, no mass Extremities: left hemiparesis MARICRUZ DURON May 10, 2017 17:57
--- NOTE | 2017-05-10 19:46 | Infectious Diseases Prog Note ---
Infectious Disease Consult Infectious Disease Consult Infectious Disease Consult INFECTIOUS DISEASE CONSULTATION DATE OF CONSULTATION: 10May2017 CONSULTING PHYSICIAN: Joshua Mclean M.D., [facility], [facility] Covering for Dr. Bustillos REFERRING PHYSICIAN: Juana Watson MD REASON FOR CONSULTATION: second opinion requested for CoNS bacteremia HISTORY OF PRESENT ILLNESS: 76 y/o female h/o admitted on 05/04/17 with 1-2 days of diarrhea c/b altered sensorium, found to have a sensitive klebsiella and E coli UTI and dehydration. Three of four blood cx bottles drawn at admission (within ~2 hrs of each other ) grew an unspeciated Coag neg staph, and surveillance blood cx not drawn until 05/08 has been negative. Sites of blood cx drawn at admission was not documented but suspected drawn from same newly placed PIV. the first bottle positive was an aerobic bottle at 13 hrs. She has been consistently afebrile w/o leukocytosis. RUE picc placed on 05/09/17 w/o complication. Per patient and her family, she is now back at her baseline w/o any new neurologic findings. She has chronic sacral stage III sacral decubitus ulcer, previously colonized with a sensitive E coli and viridans Streptococcus from . prior CoNS in blood (one of four bottles) in w/o sequelae, and in 2010 w/o sequelae. never had IE. she had a CXR on admission negative for infiltrate, effusion, or any stigmata of septic pulmonary emboli. She has remained afebrile w/o leukocytosis. She had a TTE with suboptimal windows demonstrated mild MR, mild TR, grade 1 diastolic dysfunction, LVEF 30%, and this is unchagned from 09/30/16 and 11/29/16 TTE. for the one time cons blood cx (3/4 bottles), was started on IV vancomycin on 05/05 and added PO rifampin for biofilm intercalation. She has been recommended 6 weeks IV vancomycin and PO rifampin, and she and family is refusing largely on basis of co-pay >$30/day. PAST MEDICAL HISTORY: 1. Right distal femur fracture, non surgical 2. Severe iron-deficiency anemia. The patient is a Yarsanism and has refused blood transfusions in the past. 3. History of ischemic cerebrovascular accident c/b L hemiplegia and expressive aphasia, 2015 4. Left hemiparesis. 5. Coronary artery disease, status post PCI (stent) 2013 6. Congestive heart failure, ischemic cardiomyopathy s/p ICD 7. Diabetes type 2. 8. Hypertension. 9. Hypercholesterolemia. 10. History of deep venous thrombosis of the left leg, status post IVC filter placement. 11. History of acute DVT of the right leg in January 2017. 12. Automatic implantable cardioverter-defibrillator 13. carotid stenosis s/p carotid stent 14. UGIB secodnary to esophageal ulcer--2013 PAST SURGICAL HISTORY: 1. Cholecystectomy. 2. Cervical spine fusion. 3. Lumbar spine surgery. 4. Bilateral total knee arthroplasty. 5. Carotid stenting for carotid stenosis. 6. AICD placement. ANTIBIOTICS: Ceftriaxone 1gm IV q24hr (05/04-- Vancomycin IV (05/05-- Rifampin 300mg PO BID (05/08-- Home and hospitalized medications reviewed. Medications at admission: 1. Xanax 0.25 mg one tablet p.o. q.6 h. p.r.n. 2. Tylenol 650 mg p.o. q.6 h. p.r.n. 3. Vitamin C 500 mg one tablet p.o. three times daily. 4. Atorvastatin 80 mg one tablet p.o. at bedtime. 5. Carvedilol 3.125 mg one tablet p.o. twice daily. 6. Plavix 75 mg one tablet p.o. daily. 7. Aricept 5 mg one tablet p.o. at bedtime. 8. Erythropoietin 10,000 units subcutaneously every weekly. 9. Iron sulfate 325 mg one tablet p.o. three times daily. 10. Folic acid 1 mg one tablet p.o. daily. 11. [place] 5/325 mg one tablet p.o. q.6 h. p.r.n. 12. Lactulose 20 gram p.o. three times daily. 13. Cozaar 50 mg one tablet p.o. daily. 14. Metformin 500 mg one tablet p.o. twice daily. 15. Remeron 15 mg one tablet p.o. at bedtime. 16. Multivitamin p.o. daily. 17. Omeprazole 20 mg one tablet p.o. daily. 18. Zofran 4 mg one tablet p.o. q.6 h. p.r.n. 19. Protonix 40 mg one tablet p.o. daily. 20. Zoloft 100 mg one tablet p.o. daily. 21. Restoril 15 mg one tablet p.o. at bedtime p.r.n. ALLERGIES: Latex and quinine. SOCIAL HISTORY: The patient is a Yarsanism. The patient is . Lives with her daughter. The patient denies tobacco or alcohol use. No zoonotic exposure. no pets. FAMILY HISTORY: Noncontributory REVIEW OF SYSTEMS: 11 point ROS negative except for that mentioned in HPI above. PHYSICAL EXAM: VITAL SIGNS: Afebrile since admission. vitals reviewed. not on supplemental oxygen. GEN: awake, alert, non toxic appearing HEENT: pink conjunctiva, no conjunctival hemorrhages. oral mucosa dry, pharynx w/o exudate or effusion. No icterus. Head normocephalic, neck supple. no mucosal petechiae. undilated eye exam negative for Jacobsen spots. EOMI. NECK: No cervical LAD CHEST: Clear to auscultation bilaterally. HEART: S1 and S2, 2/6 GRISEL, no rubs. ABDOMEN: soft, non tender, non distended, normoactive bowel sounds. old healed scars. no cellulitis. no HSM. EXTREMITIES: No cyanosis, no clubbing, no edema. no osler nodes, no janeway lesions, no splinter hemorrhages, no petechiae. b/l knee scars, well healed, no effusion, no erythema, no warmth NEUROLOGIC: Awake, alert, LUE/LLE 1/5 strength. 3+ L patellar reflex. no response on babinski. no clonus. RUE strength preserved w/ some mild dysdiadochokinesia. : tolliver in place draining orange (rifampin strained) urine skin: mild xerosis. b/l onychomycosis. no petechiae, no purpura. LYMPH: no LAD RECTAL: deferred LABORATORY AND DIAGNOSTIC DATA: WBC 5.5, hgb 9.5, plt 163, N 65% bmp 142/4/106/29/14/0.5 ca 8.8, gluc 98 trop <0.3, pro BNP 886 ferritin 290, iron sat 18% nl LFTs u/a (05/04): 1.005/2+ protein/neg ketones/3+ LE/5-10 RBC/15-20 WBC/many bacteria /occ squamous epis RADIOLOGY: Patient : IVELISSE TRUJILLO Referring Physician: JUSTIN BULL M.D. ID Number: [id number] Service Date: 05/04/17 : 1940 Report Date: 05/04/17 Gender: F Accession No.: [id number] Location: [facility] Procedure: XRAY Chest 1v Indication: Dyspnea Comparison: 12/27/16 A single view chest radiograph was obtained. Findings: Bones are osteopenic. Heart is enlarged. Aorta is ectatic. The left. Cholecystectomy clips, IVC filter and lumbar hardware partially noted. Impression: No acute cardiopulmonary disease Patient : PAUL TRUJILLOJANENE Jeremy Referring Physician: MARICRUZ DURON ID Number: [id number] Service Date: 05/06/17 : 1940 Report Date: 05/06/17 Gender: F Accession No.: [id number] Location: Procedure: 2DEchocardiogram w/Doppler APPROVED REPORT EXAM: Two-dimensional and M-mode echocardiogram with Doppler and color Doppler. INDICATION Congestive Heart Failure M-Mode DIMENSIONS IVSd 1.1 (0.7-1.1cm) Left Atrium (MM) 2.4 (1.6-4.0cm) LVDd 6.4 (3.5-5.6cm) Aortic Root 2.9 (2.0-3.7cm) PWd 1.2 (0.7-1.1cm) Aortic Cusp Exc. 1.9 (1.5-2.0cm) LVDs 5.7 (2.5-4.0cm) PWs 1.0 cm Technically difficult study due to poor acoustic windows. Normal left ventricular chamber size. Global left ventricular hypokinesis. Anteroseptal wall akinesia as well as apex , inferior wall, distal latreal wall and mid to distal posterior wall . Left ventricular ejection fraction estimated to be 30%. No evidence of left ventricular hypertrophy. No evidence of pericardial fat or effusion. All other cardiac chamber sizes are within normal limits. Focal aortic valve sclerosis with adequate cusp excursion Thickened mitral valve leaflets with normal excursion. Moderate mitral annulus and aortic root calcification. Pulmonic valve not well visualized. Normal tricuspid valve structure. IVC not obtainable. A color flow and spectral Doppler study was performed and revealed: Trace aortic regurgitation. Mild mitral regurgitation (2 jets). Left ventricular diastolic dysfunction grade 1. Mild tricuspid regurgitation. Tricuspid systolic velocities suggests peak right ventricular systolic pressure of 20 mmHg Pulmonic regurgitation present. ASSESSMENT AND PLAN ASSESSMENT: 76 y/o female on D#6 ceftriaxone for E coli & Klebsiella UTI with good clinical response, also incidentally found to have 3/4 blood cx bottles from 05/04 postiive for unspeciated coag neg Staph with surveillance culture from 05/08 neg to date for which she is now on D#5 Vanc (D#0 was 05/05) and D#2 po rifampin. her altered sensorium seems more likely associated with UTI, and has responded appropriately to treatment. She does have stable abn on her TTE (vs 11/29/16 and 09/30/16) with mild MR, trace AI, and mild TR w/o obvious vegetation but admittedly windows were suboptimal for conclusively ruling out IE. Although she does have multiple potential sites to seed if she had been bacteremic for an extended period-- h/o C&L spinal fusion, IVC filter, carotid stent, b/l TKR , and AICD--at this time in the absence of fevers, not an IVDU, no vascular phenoma clearly identified (arterial emboli, SPE, mycotic aneurysm, intracranial bleed, conjunctival hemorrhages, Janeway lesions), no immunologic phenomena (GN, osler nodes, Jacobsen spots, RF), she really has one minor criteria with this coag negative staph from two sets of blood cx not by >12 hrs , and maybe with the AICD not well visualized you could say perhaps she has two minor modified Medley criteria so she is not close to satisfying clinical diagnostic criteria for IE. I note she's had prior CoNS blood cultures in the past, in and in 2010, and she certainly did not have sequelae from those , and current all her prosthetic sites that be examined superficially do not suggest primary infection or seeding event. However, I appreciate that definitively ruling out IE is important. So I recommend she have a JANIE to get a better look at the valves and the AICD Leads and perhaps ensure she doesn't have a remnant Eustachian valve. However, if JANIE is not possible for some reason, we could consider alternative imaging modalities to more clearly rule this out. In the absence of PET/CT or 99Tm SPECT/CT, if unable to obtain JANIE could instead get a whole body gallium scan which does a better job of evaluating the valve leaflets than an indium tagged wbc scan that is better at excluding perivalvular abscess. in the meantime, will obtain inflammatory markers since if normal or near normal would be pretty reassuring in this particular clinical scenario, obtain RF, and now that UTI is treated repeat urine micro to ensure no evidence of GN, and r/o low likelihood of SENIOR SOUS CHEF seeding with CTA brain. Her CXR is not suggestive particular of septic pulmonary emboli, nor is her fever curve consistent with that diagnosis. Also, since all coag neg staph are not created equal, i have asked the micro lab to try to speciate the coag neg staph to exclude Staph lugdunensis, which tends to have a more aggressive clinical course and is more likely to course IE than other CoNS. If JANIE is negative, or alternatively JANIE can't be done and she has a gallium scan that is negative, then I'd consider her treated with 5-7 days IV vancomycin. E coli/klebsiella UTI CoNS bacteremia that doesn't meet clinical criteria for IE h/o CoNS bacteremia in Stage III sacral decubitus ulcer, not grossly infected Afebrile w/o leukocytosis normal rifampin associated urinary discoloration Iron def anemia ischemic cardiomyopathy s/p AICD h/o DVT s/p IVC filter b/l TKR carotid stent Cervical and Lumbar spinal fusions PLAN: --recommend JANIE --If JANIE not possible, recommend whole body gallium scan as secondary option. This shouldn't be considered the gold standard. --repeat U/A --ESR, CRP, RF --CTA head --i will f/u with the lab on whether they were able to speciate that CoNS from blood cx --f/u 05/08 blood cx Thank you for this request for consultation for 2nd opinion. Covering for Dr. Bustillos, please call me with questions, Isaiah Mclean MD, [facility], [facility], [employer], [place] apprentice cook, [employer] operator, [facility] Director of HIV Prevention Program and [employer], [employer] Joshua Mclean M.D. May 10, 2017 19:46
[2017-05-11] VITALS: BP 120/61
[2017-05-11] MEDS: Vancomycin 500mg/D5W 110ml IVPB SCH ×4 (01:12→14:09)
[2017-05-11 04:00] VITALS: BP 137/72
[2017-05-11 05:26] LABS: APPEARANCE,URINE CLEAR; KETONES,URINE NEGATIVE (NEGATIVE); LEUKOCYTE ESTERASE ,URINE 2+ (NEGATIVE); NITRITE,URINE NEGATIVE (NEGATIVE); PH,URINE 7 (4.5-8.0); PROTEIN,URINE NEGATIVE (NEGATIVE); UROBILINOGEN,URINE 1 MG/DL (0.0-1.0)
[2017-05-11 05:40] LABS: MEAN CORPUSCULAR HEMOGLOBIN 30.4 PG (27.0-31.0); MEAN CORPUSCULAR HGB CONC 31.8 G/DL (32.0-36.0); MEAN CORPUSCULAR VOLUME 96 FL (80-99); MEAN PLATELET VOLUME 6.2 FL (6.5-10.1); PLATELET COUNT 197 K/UL (150-450); RED BLOOD COUNT 2.42 M/UL (4.20-5.40); RED CELL DISTRIBUTION WIDTH 17.9 % (11.6-14.8); WHITE BLOOD COUNT 5.6 K/UL (4.8-10.8)
[2017-05-11 05:50] LABS: ANION GAP 9 (5-15); CALCIUM 8.9 mg/dL (8.6-10.2); CARBON DIOXIDE 28 mEQ/L (20-30); CHLORIDE 107 mEQ/L (98-107); CREATININE 0.4 mg/dL (0.5-0.9); HEMOLYSIS 1; POTASSIUM 3.8 mEQ/L (3.4-4.9); SODIUM 144 mEQ/L (135-145)
[2017-05-11] MEDS: NovoLOG Insulin Flexpen SUBQ SCH ×4 (05:51→20:49)
[2017-05-11 06:08] LABS: BACTERIA,URINE FEW /HPF; MUCUS,URINE FEW /LPF (NONE/OCC); RBC,URINE 0-2 /HPF (0 - 2); SQUAMOUS EPITHELIAL CELL,UR FEW /LPF (NONE/OCC)
[2017-05-11 08:00] VITALS: BP 169/85
[2017-05-11 08:16] LABS: EOSINOPHILS % (MANUAL) 1 % (0-3); LYMPHOCYTES % (MANUAL) 20 % (20-45); NEUTROPHILS % (MANUAL) 76 % (45-75); TOTAL CELLS COUNTED 100
[2017-05-11 08:17] LABS: ANISOCYTOSIS 1+; BAND NEUTROPHILS % (MANUAL) 0 % (0-8); BASOPHILS % (MANUAL) 0 % (0-2); HYPOCHROMASIA 1+; PLATELET ESTIMATE ADEQUATE; PLATELET MORPHOLOGY NORMAL
[2017-05-11] MEDS: Sertraline 100mg tab ORAL SCH (09:00)
[2017-05-11] MEDS: Losartan 25mg tab ORAL SCH (09:00)
[2017-05-11] MEDS: Heparin 5000 units/ml inj SUBQ SCH ×2 (09:00→20:49)
[2017-05-11] MEDS: Dyna-Hex 2% Top Sol 8oz TOPIC SCH (10:45)
[2017-05-11 12:00] VITALS: BP 141/74
--- NOTE | 2017-05-11 13:25 | Diagnostic Imaging Report ---
Indication: Contour is Technique: Continuous helical transaxial imaging of the head was obtained during rapid intravenous contrast administration. Arterial phase of enhancement obtained. Coronal 2-D reformats were also obtained and maximum intensity projection images in multiple planes. Study obtained in a Siemens sensation [address] Total Dose length Product (DLP): [address] Dose Index Volume (CTDIvol): 0.17x2, 70.38, 16.5, 82.52, 54.98x2 mGy Comparison: Noncontrast CT head 11/27/16 Findings: Noncontrast portion of the examination demonstrates areas of encephalomalacia involving left occipital, right parietal temporal and a small portion of the left parietal lobe. The left parietal infarct is new since the last study but also appears old. Generalized atrophy the brain is noted. There is a cavum septum pellucida. No definite mass effect or edema identified. No acute hemorrhage identified. Moderate periventricular low-attenuation is present. CTA demonstrates no vascular malformation or aneurysm. Moderate calcific plaque present within the cavernous and supraclinoid ICA bilaterally. There does not appear to be any significant stenosis. There is no occlusion of the major arterial structures within the anterior posterior circulation. The vertebral basilar arteries appear small. Both posterior cerebral arteries arise from the distal ICA bilaterally. The right MCA distal branches are attenuated likely related to the infarct involving the right temporal parietal lobe. Impression: No occlusion, high-grade stenosis, aneurysm or vascular malformation identified on the CTA head. Multiple old cerebral infarcts as described above. Generalized atrophy of the brain Chronic small disease involving white matter. The CT scanner at [facility] is accredited by the [employer] and the scans are performed using dose optimization techniques as appropriate to a performed exam including Automatic Exposure control.
--- NOTE | 2017-05-11 14:38 | Infectious Diseases Prog Note ---
Assessment/Plan Problems: (1) UTI (urinary tract infection) Assessment & Plan: with E coli sensitive to ceftriaxon , will treat for 7 days . EOT 05/12/17 (2) Sepsis Assessment & Plan: due to coag negative staph which grew out of three bottles so far , most likely real infection, source ? suspect sacral wound , transthoracic echo didn't show vegetations, but not the ideal test to rule out curyung valve endocarditis or AICD leads endocarditis , so will add rifampin to the vancomycin and treat for 6 weeks total to cover for coage negative staph bacteremia and possible endocarditis .pharmacy to monitor trough and adjust dose as needed to keep between 15-20. repeated blood culture to confirm clearance is negative on 05/08 . EOT 06/19/17. RECOMMEND : 1.weekly labs: CBC, CMP while on antibiotics 2.biweekly vancomycin trough at least to keep between 15-20 (3) Cerebral vascular disease Assessment & Plan: old, stable. continue off loading as needed (4) Sacral wound Assessment & Plan: not infected, continue off loading and local care (5) Diabetes mellitus Assessment & Plan: recommend tight glycemic control to keep blood glucose between 80-120 Subjective Constitutional: Reports: no symptoms HEENT: Reports: no symptoms Respiratory: Reports: no symptoms Breasts: Reports: no symptoms Cardiovascular: Reports: no symptoms Gastrointestinal/Abdominal: Reports: no symptoms Genitourinary: Reports: no symptoms Neurologic: Reports: no symptoms Psychiatric: Reports: no symptoms Skin: Reports: no symptoms Endocrine: Reports: no symptoms Hematologic: Reports: no symptoms Musculoskeletal: Reports: no symptoms Allergies: Coded Allergies: LATEX (Unverified Allergy, Mild, Rash, 09/03/14) QUININE (Unverified Allergy, Unknown, Rash Hives, 05/23/15) Quinine Sulfate Subjective she was awake and alert, up in bed, follows commands , no fever or chills, no diarrhea . Objective Vital Signs Last 24 Hour Vital Signs Date Time Temp Pulse Resp B/P (MAP) Pulse Ox O2 Delivery O2 Flow Rate FiO2 05/11/17 12:00 97.7 69 20 141/74 97 Room Air 05/11/17 08:00 98.0 72 20 169/85 97 Room Air 05/11/17 04:00 98.2 70 20 137/72 96 Room Air 05/11/17 00:00 97.4 77 20 120/61 97 Room Air 8/31/17 20:58 76 130/66 05/10/17 19:58 97.9 76 20 130/66 97 Room Air 05/10/17 16:00 98.2 66 20 133/70 98 Room Air Height (Feet): 5 Height (Inches): 4.00 Weight (Pounds): 130 General Appearance: WD/WN, no acute distress, cachetic HEENT: normocephalic, atraumatic, anicteric, mucous membranes moist Respiratory/Chest: chest wall non-tender, lungs clear, normal breath sounds, no respiratory distress, no accessory muscle use Cardiovascular: normal peripheral pulses, normal rate, regular rhythm, no gallop/murmur, no JVD Abdomen: normal bowel sounds, soft, non tender, no organomegaly, non distended , no mass, no scars Extremities: no cyanosis, no clubbing Skin: no rash, no lesions, ulcers Neurologic/Psychiatric: alert, responsive Lymphatic: no neck adenopathy Laboratory Tests Test 05/10/17 15:55 05/11/17 04:30 05/11/17 04:50 White Blood Count 5.5 K/UL (4.8-10.8) 5.6 K/UL (4.8-10.8) Red Blood Count 2.92 M/UL (4.20-5.40) L 2.42 M/UL (4.20-5.40) L Hemoglobin 9.5 G/DL (12.0-16.0) L 7.4 G/DL (12.0-16.0) L Hematocrit 27.7 % (37.0-47.0) L 23.2 % (37.0-47.0) L Mean Corpuscular Volume 95 FL (80-99) 96 FL (80-99) Mean Corpuscular Hemoglobin 32.5 PG (27.0-31.0) H 30.4 PG (27.0-31.0) Mean Corpuscular Hemoglobin Concent 34.2 G/DL (32.0-36.0) 31.8 G/DL (32.0-36.0) L Red Cell Distribution Width 18.0 % (11.6-14.8) H 17.9 % (11.6-14.8) H Platelet Count 163 K/UL (150-450) 197 K/UL (150-450) Mean Platelet Volume 5.9 FL (6.5-10.1) L 6.2 FL (6.5-10.1) L Neutrophils (%) (Auto) 65.6 % (45.0-75.0) % (45.0-75.0) Lymphocytes (%) (Auto) 18.9 % (20.0-45.0) L % (20.0-45.0) Monocytes (%) (Auto) 13.2 % (1.0-10.0) H % (1.0-10.0) Eosinophils (%) (Auto) 1.4 % (0.0-3.0) % (0.0-3.0) Basophils (%) (Auto) 0.8 % (0.0-2.0) % (0.0-2.0) Erythrocyte Sedimentation Rate 5 MM/HR (0-30) C-Reactive Protein, Quantitative < 0.3 mg/dL (< 0.5) Rheumatoid Factor Screen 10.6 IU/mL (0.0-13.9) Differential Total Cells Counted 100 Neutrophils % (Manual) 76 % (45-75) H Lymphocytes % (Manual) 20 % (20-45) Monocytes % (Manual) 3 % (1-10) Eosinophils % (Manual) 1 % (0-3) Basophils % (Manual) 0 % (0-2) Band Neutrophils 0 % (0-8) Platelet Estimate Adequate Platelet Morphology Normal Hypochromasia 1+ Anisocytosis 1+ Sodium Level 144 mEQ/L (135-145) Potassium Level 3.8 mEQ/L (3.4-4.9) Chloride Level 107 mEQ/L (98-107) Carbon Dioxide Level 28 mEQ/L (20-30) Anion Gap 9 (5-15) Blood Urea Nitrogen 12 mg/dL (7-23) Creatinine 0.4 mg/dL (0.5-0.9) L Estimat Glomerular Filtration Rate mL/min (>60) Glucose Level 90 mg/dL (74-106) Calcium Level 8.9 mg/dL (8.6-10.2) Urine Color [place] Urine Appearance Clear Urine pH 7 (4.5-8.0) Urine Specific [place] 1.010 (1.005-1.035) Urine Protein Negative (NEGATIVE) Urine Glucose (UA) Negative (NEGATIVE) Urine Ketones Negative (NEGATIVE) Urine Occult Blood Negative (NEGATIVE) Urine Nitrite Negative (NEGATIVE) Urine Bilirubin 1+ (NEGATIVE) H Urine Ictotest Urine Urobilinogen 1 MG/DL (0.0-1.0) H Urine Leukocyte Esterase 2+ (NEGATIVE) H Urine RBC 0-2 /HPF (0 - 2) Urine WBC 5-10 /HPF (0 - 2) H Urine Squamous Epithelial Cells Few /LPF (NONE/OCC) Urine Bacteria Few /HPF (NONE) Urine Mucus Few /LPF (NONE/OCC) H Current Medications Medications (Trade) Dose Ordered Sig/Don Route PRN Reason Start Time Stop Time Status Last Admin Dose Admin Acetaminophen (Tylenol) 650 mg Q4H PRN ORAL T>100.5 05/04/17 21:45 06/03/17 21:44 05/08/17 09:24 Al Hydroxide/Mg Hydroxide (Mylanta II) 30 ml Q6H PRN ORAL dyspepsia 05/04/17 21:45 06/03/17 21:44 Alprazolam (Xanax) 0.25 mg Q6H PRN ORAL For Anxiety 05/04/17 21:45 05/11/17 21:44 Carvedilol (Coreg) 3.125 mg Q12HR ORAL 05/05/17 09:00 06/04/17 08:59 05/10/17 20:58 Ceftriaxone Sodium 1 gm/ Dextrose 55 ml @ 110 mls/hr Q24H IVPB 05/05/17 16:00 05/12/17 15:59 05/10/17 16:23 Chlorhexidine Gluconate (Merari-Hex 2%) 1 applic DAILY TOPIC 05/09/17 09:00 06/08/17 08:59 05/11/17 10:45 Clopidogrel Bisulfate (Plavix) 75 mg DAILY ORAL 05/05/17 09:00 06/04/17 08:59 05/10/17 09:42 Dextrose (Dextrose 50%) STAT PRN IV Hypoglycemia 05/04/17 21:45 06/03/17 21:44 Heparin Sodium (Porcine) (Heparin 5000 units/ml) 5,000 units EVERY 12 HOURS SUBQ 05/05/17 09:00 06/04/17 08:59 05/10/17 20:59 Insulin Aspart (NovoLOG) BEFORE MEALS AND HS SUBQ 05/05/17 06:30 06/04/17 06:29 05/10/17 21:00 Lorazepam (Ativan 2mg/ml 1ml) 0.5 mg Q4H PRN IV Breakthrough anxiety/agitation 05/04/17 21:45 05/11/17 21:44 Losartan Potassium (Cozaar) 25 mg DAILY ORAL 05/06/17 09:00 06/05/17 08:59 05/10/17 09:43 Mirtazapine (Remeron) 15 mg BEDTIME ORAL 05/04/17 23:00 06/03/17 22:59 05/10/17 20:58 Morphine Sulfate (Morphine Sulfate) 1 mg Q4H PRN IVP PAIN 4-10 05/04/17 21:45 05/11/17 21:44 05/08/17 09:39 Ondansetron HCl (Zofran) 4 mg Q6H PRN IVP Nausea & Vomiting 05/04/17 21:45 06/03/17 21:44 Polyethylene Glycol (Miralax) 17 gm HSPRN PRN ORAL Constipation 05/04/17 21:45 06/03/17 21:44 Rifampin (Rifadin) 300 mg EVERY 12 HOURS ORAL 05/08/17 17:00 06/16/17 16:59 05/10/17 20:58 Sertraline HCl (Zoloft) 100 mg DAILY ORAL 05/05/17 09:00 06/04/17 08:59 05/10/17 09:42 Vancomycin HCl (Vanco rx to dose) 1 ea DAILY PRN MISC Per Rx Protocol 05/05/17 15:00 06/04/17 14:59 Vancomycin HCl 500 mg/Dextrose 110 ml @ 110 mls/hr Q12HR@0200,1400 IVPB 05/06/17 02:00 06/16/17 01:59 05/11/17 14:09 Zolpidem Tartrate (Ambien) 5 mg HSPRN PRN ORAL Insomnia 05/04/17 22:00 05/11/17 21:59 05/08/17 23:32 Annie Lilly M.D. May 11, 2017 14:37
--- NOTE | 2017-05-11 14:46 | Internal Med Progress Note ---
Subjective Date of Service: May 11, 2017 Physician Name Delfin Martinez Attending Physician Lobito Jones MD Current Medications Medications (Trade) Dose Ordered Sig/Don Route PRN Reason Start Time Stop Time Status Last Admin Dose Admin Acetaminophen (Tylenol) 650 mg Q4H PRN ORAL T>100.5 05/04/17 21:45 06/03/17 21:44 05/08/17 09:24 Al Hydroxide/Mg Hydroxide (Mylanta II) 30 ml Q6H PRN ORAL dyspepsia 05/04/17 21:45 06/03/17 21:44 Alprazolam (Xanax) 0.25 mg Q6H PRN ORAL For Anxiety 05/04/17 21:45 05/11/17 21:44 Carvedilol (Coreg) 3.125 mg Q12HR ORAL 05/05/17 09:00 06/04/17 08:59 05/10/17 20:58 Ceftriaxone Sodium 1 gm/ Dextrose 55 ml @ 110 mls/hr Q24H IVPB 05/05/17 16:00 05/12/17 15:59 05/10/17 16:23 Chlorhexidine Gluconate (Merari-Hex 2%) 1 applic DAILY TOPIC 05/09/17 09:00 06/08/17 08:59 05/11/17 10:45 Clopidogrel Bisulfate (Plavix) 75 mg DAILY ORAL 05/05/17 09:00 06/04/17 08:59 05/10/17 09:42 Dextrose (Dextrose 50%) STAT PRN IV Hypoglycemia 05/04/17 21:45 06/03/17 21:44 Heparin Sodium (Porcine) (Heparin 5000 units/ml) 5,000 units EVERY 12 HOURS SUBQ 05/05/17 09:00 06/04/17 08:59 05/10/17 20:59 Insulin Aspart (NovoLOG) BEFORE MEALS AND HS SUBQ 05/05/17 06:30 06/04/17 06:29 05/10/17 21:00 Lorazepam (Ativan 2mg/ml 1ml) 0.5 mg Q4H PRN IV Breakthrough anxiety/agitation 05/04/17 21:45 05/11/17 21:44 Losartan Potassium (Cozaar) 25 mg DAILY ORAL 05/06/17 09:00 06/05/17 08:59 05/10/17 09:43 Mirtazapine (Remeron) 15 mg BEDTIME ORAL 05/04/17 23:00 06/03/17 22:59 05/10/17 20:58 Morphine Sulfate (Morphine Sulfate) 1 mg Q4H PRN IVP PAIN 4-10 05/04/17 21:45 05/11/17 21:44 05/08/17 09:39 Ondansetron HCl (Zofran) 4 mg Q6H PRN IVP Nausea & Vomiting 05/04/17 21:45 06/03/17 21:44 Polyethylene Glycol (Miralax) 17 gm HSPRN PRN ORAL Constipation 05/04/17 21:45 06/03/17 21:44 Rifampin (Rifadin) 300 mg EVERY 12 HOURS ORAL 05/08/17 17:00 06/16/17 16:59 05/10/17 20:58 Sertraline HCl (Zoloft) 100 mg DAILY ORAL 05/05/17 09:00 06/04/17 08:59 05/10/17 09:42 Vancomycin HCl (Vanco rx to dose) 1 ea DAILY PRN MISC Per Rx Protocol 05/05/17 15:00 06/04/17 14:59 Vancomycin HCl 500 mg/Dextrose 110 ml @ 110 mls/hr Q12HR@0200,1400 IVPB 05/06/17 02:00 06/16/17 01:59 05/11/17 14:09 Zolpidem Tartrate (Ambien) 5 mg HSPRN PRN ORAL Insomnia 05/04/17 22:00 05/11/17 21:59 05/08/17 23:32 Allergies: Coded Allergies: LATEX (Unverified Allergy, Mild, Rash, 09/03/14) QUININE (Unverified Allergy, Unknown, Rash Hives, 05/23/15) Quinine Sulfate ROS Limited/Unobtainable: No Constitutional: Reports: no symptoms HEENT: Reports: no symptoms Cardiovascular: Reports: no symptoms Respiratory: Reports: no symptoms Gastrointestinal/Abdominal: Reports: no symptoms Genitourinary: Reports: no symptoms Neurologic/Psychiatric: Reports: no symptoms Subjective 76 YO F admitted with altered mental status. Now UTI and Sepsis. Cover for Int Med-Dr Jones. See 2 ID opinions concerning patient need for transesophageal echocardiogram to R/O endocarditis. Objective Last Vital Signs Date Time Temp Pulse Resp B/P (MAP) Pulse Ox O2 Delivery O2 Flow Rate FiO2 05/11/17 12:00 97.7 69 20 141/74 97 Room Air Laboratory Tests Test 05/10/17 15:55 05/11/17 04:30 05/11/17 04:50 White Blood Count 5.5 K/UL (4.8-10.8) 5.6 K/UL (4.8-10.8) Red Blood Count 2.92 M/UL (4.20-5.40) L 2.42 M/UL (4.20-5.40) L Hemoglobin 9.5 G/DL (12.0-16.0) L 7.4 G/DL (12.0-16.0) L Hematocrit 27.7 % (37.0-47.0) L 23.2 % (37.0-47.0) L Mean Corpuscular Volume 95 FL (80-99) 96 FL (80-99) Mean Corpuscular Hemoglobin 32.5 PG (27.0-31.0) H 30.4 PG (27.0-31.0) Mean Corpuscular Hemoglobin Concent 34.2 G/DL (32.0-36.0) 31.8 G/DL (32.0-36.0) L Red Cell Distribution Width 18.0 % (11.6-14.8) H 17.9 % (11.6-14.8) H Platelet Count 163 K/UL (150-450) 197 K/UL (150-450) Mean Platelet Volume 5.9 FL (6.5-10.1) L 6.2 FL (6.5-10.1) L Neutrophils (%) (Auto) 65.6 % (45.0-75.0) % (45.0-75.0) Lymphocytes (%) (Auto) 18.9 % (20.0-45.0) L % (20.0-45.0) Monocytes (%) (Auto) 13.2 % (1.0-10.0) H % (1.0-10.0) Eosinophils (%) (Auto) 1.4 % (0.0-3.0) % (0.0-3.0) Basophils (%) (Auto) 0.8 % (0.0-2.0) % (0.0-2.0) Erythrocyte Sedimentation Rate 5 MM/HR (0-30) C-Reactive Protein, Quantitative < 0.3 mg/dL (< 0.5) Rheumatoid Factor Screen 10.6 IU/mL (0.0-13.9) Differential Total Cells Counted 100 Neutrophils % (Manual) 76 % (45-75) H Lymphocytes % (Manual) 20 % (20-45) Monocytes % (Manual) 3 % (1-10) Eosinophils % (Manual) 1 % (0-3) Basophils % (Manual) 0 % (0-2) Band Neutrophils 0 % (0-8) Platelet Estimate Adequate Platelet Morphology Normal Hypochromasia 1+ Anisocytosis 1+ Sodium Level 144 mEQ/L (135-145) Potassium Level 3.8 mEQ/L (3.4-4.9) Chloride Level 107 mEQ/L (98-107) Carbon Dioxide Level 28 mEQ/L (20-30) Anion Gap 9 (5-15) Blood Urea Nitrogen 12 mg/dL (7-23) Creatinine 0.4 mg/dL (0.5-0.9) L Estimat Glomerular Filtration Rate mL/min (>60) Glucose Level 90 mg/dL (74-106) Calcium Level 8.9 mg/dL (8.6-10.2) Urine Color [place] Urine Appearance Clear Urine pH 7 (4.5-8.0) Urine Specific [place] 1.010 (1.005-1.035) Urine Protein Negative (NEGATIVE) Urine Glucose (UA) Negative (NEGATIVE) Urine Ketones Negative (NEGATIVE) Urine Occult Blood Negative (NEGATIVE) Urine Nitrite Negative (NEGATIVE) Urine Bilirubin 1+ (NEGATIVE) H Urine Ictotest Urine Urobilinogen 1 MG/DL (0.0-1.0) H Urine Leukocyte Esterase 2+ (NEGATIVE) H Urine RBC 0-2 /HPF (0 - 2) Urine WBC 5-10 /HPF (0 - 2) H Urine Squamous Epithelial Cells Few /LPF (NONE/OCC) Urine Bacteria Few /HPF (NONE) Urine Mucus Few /LPF (NONE/OCC) H Objective General Appearance: WD/WN, no apparent distress, alert EENT: PERRL/EOMI, normal ENT inspection Neck: non-tender, normal alignment, supple, normal inspection Cardiovascular: normal peripheral pulses, normal rate, regular rhythm, no gallop/murmur, no JVD Respiratory/Chest: chest wall non-tender, lungs clear, normal breath sounds, no respiratory distress, no accessory muscle use Abdomen: normal bowel sounds, non tender, soft, no organomegaly, no mass Extremities: other - left hemiparesis 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 See ID note concerning source. Await JANIE to R/O endocarditis. Await repeat blood cultures. Cont vanco for 6 weeks per ID if JANIE positive for endocarditis. S/P PICC placement (4) Diarrhea Assessment & Plan: Resolved. (5) Fracture (6) Severe anemia Assessment & Plan: Worsening. Religion. Cont IV venofer. (7) DVT (deep venous thrombosis) (8) CVA (cerebrovascular accident) (9) CAD (coronary artery disease) Assessment & Plan: see cardiology note. (10) Diabetes mellitus Assessment & Plan: Cont novolog slideng scale (11) CHF (congestive heart failure) (12) UTI (urinary tract infection) Assessment & Plan: E. Coli. Continue ceftriaxone for 7 days per ID Status: stable Assessment/Plan Patient needs transesophageal echo to R/O endocarditis per ID consult X2. If JANIE pos for endocarditis, patient needs 6 weeks IV vanco; if neg can D/C IV vanco after JANIE DELFIN MARTINEZ May 11, 2017 14:46
[2017-05-11 15:44] VITALS: BP 154/78
--- NOTE | 2017-05-11 16:24 | Cardiac Electrophysiology PN ---
Assessment/Plan Assessment/Plan 1. Status post [employer] dual-chamber defibrillator implantation with Nl Fx with 11 years battery remaining. 2. CHF due to Ischemic cardiomyopathy with EF 30-35 . Continue Coreg and Cozaar 3. Coag negative staph sepsis. Blood Cx positive three bottles, source ? suspect sacral wound. No clinical infection of ICD. TTE no vegetation. Both IDs recommended JANIE that is pending on Sunday by Dr Luz. 4.Coronary artery disease, prior stent placed in 2013. 5. Carotid stenosis, status post right carotid stent placement. 6. History of gastrointestinal bleed, esophageal cancer noted in 2013. 7. Anemia. 8. Cerebrovascular accident with left hemiplegia. DW RN, Dr Rios and Dr Lilly Subjective Subjective Feeling better. DC was cancelled as ID second opinion also recommended JANIE to evaluated for endocarditis or ICD lead infection. No chest pain or SOB Objective Last 24 Hour Vital Signs Date Time Temp Pulse Resp B/P (MAP) Pulse Ox O2 Delivery O2 Flow Rate FiO2 05/11/17 15:44 97.2 65 20 154/78 96 Room Air 05/11/17 12:00 97.7 69 20 141/74 97 Room Air 05/11/17 08:00 98.0 72 20 169/85 97 Room Air 05/11/17 04:00 98.2 70 20 137/72 96 Room Air 05/11/17 00:00 97.4 77 20 120/61 97 Room Air 05/10/17 20:58 76 130/66 05/10/17 19:58 97.9 76 20 130/66 97 Room Air Intake and Output 05/11/17 05/12/17 19:00 07:00 Output Total 500 ml Balance -500 ml Output Urine Total 500 ml Laboratory Tests Test 05/11/17 04:30 05/11/17 04:50 White Blood Count 5.6 K/UL (4.8-10.8) Red Blood Count 2.42 M/UL (4.20-5.40) L Hemoglobin 7.4 G/DL (12.0-16.0) L Hematocrit 23.2 % (37.0-47.0) L Mean Corpuscular Volume 96 FL (80-99) Mean Corpuscular Hemoglobin 30.4 PG (27.0-31.0) Mean Corpuscular Hemoglobin Concent 31.8 G/DL (32.0-36.0) L Red Cell Distribution Width 17.9 % (11.6-14.8) H Platelet Count 197 K/UL (150-450) Mean Platelet Volume 6.2 FL (6.5-10.1) L Neutrophils (%) (Auto) % (45.0-75.0) Lymphocytes (%) (Auto) % (20.0-45.0) Monocytes (%) (Auto) % (1.0-10.0) Eosinophils (%) (Auto) % (0.0-3.0) Basophils (%) (Auto) % (0.0-2.0) Differential Total Cells Counted 100 Neutrophils % (Manual) 76 % (45-75) H Lymphocytes % (Manual) 20 % (20-45) Monocytes % (Manual) 3 % (1-10) Eosinophils % (Manual) 1 % (0-3) Basophils % (Manual) 0 % (0-2) Band Neutrophils 0 % (0-8) Platelet Estimate Adequate Platelet Morphology Normal Hypochromasia 1+ Anisocytosis 1+ Sodium Level 144 mEQ/L (135-145) Potassium Level 3.8 mEQ/L (3.4-4.9) Chloride Level 107 mEQ/L (98-107) Carbon Dioxide Level 28 mEQ/L (20-30) Anion Gap 9 (5-15) Blood Urea Nitrogen 12 mg/dL (7-23) Creatinine 0.4 mg/dL (0.5-0.9) L Estimat Glomerular Filtration Rate mL/min (>60) Glucose Level 90 mg/dL (74-106) Calcium Level 8.9 mg/dL (8.6-10.2) Urine Color [place] Urine Appearance Clear Urine pH 7 (4.5-8.0) Urine Specific [place] 1.010 (1.005-1.035) Urine Protein Negative (NEGATIVE) Urine Glucose (UA) Negative (NEGATIVE) Urine Ketones Negative (NEGATIVE) Urine Occult Blood Negative (NEGATIVE) Urine Nitrite Negative (NEGATIVE) Urine Bilirubin 1+ (NEGATIVE) H Urine Ictotest Urine Urobilinogen 1 MG/DL (0.0-1.0) H Urine Leukocyte Esterase 2+ (NEGATIVE) H Urine RBC 0-2 /HPF (0 - 2) Urine WBC 5-10 /HPF (0 - 2) H Urine Squamous Epithelial Cells Few /LPF (NONE/OCC) Urine Bacteria Few /HPF (NONE) Urine Mucus Few /LPF (NONE/OCC) H Objective HEENT: No JVD Cardiovascular: RRR. No murmur. ICD left chest intact. No hematoma or local sign of infection. Respiratory/Chest: lungs clear, normal breath sounds, no respiratory distress , no accessory muscle use Abdomen: normal bowel sounds, non tender, soft, no organomegaly, no mass Extremities: left hemiparesis MARICRUZ DURON May 11, 2017 16:24
--- NOTE | 2017-05-11 16:33 | Infectious Diseases Prog Note ---
Assessment/Plan Assessment/Plan Infectious Diseases 2nd opinion ASSESSMENT: E coli/klebsiella UTI Staphylococcus epidermidis bacteremia that doesn't meet clinical criteria for IE (satisfies only 1-2 minor modified Medley criteria; would need 2 major, 1 major + 3 minor, or 5 minor) micro lab confirmed all isolates from 05/04 blood cx were Staph epidermidis. not Staph lugdunensis. no clinical evidence of ICD pocket infection RF negative (10.6 IU/mL) ESR 5mm/hr and CRP <0.3mg/dL reassuring repeat U/A w/o active sediment. no evidence of glomerulonephritis CTA head with old ischemic disease. no concern for mycotic aneurysm. CXR does not suggest SPE no vascular phenomena identified (arterial emboli, SPE, mycotic aneurysm , intracranial bleed, conjunctival hemorrhages, [place] lesions) no immunologic phenomena (GN, osler nodes, Jacobsen spots, RF) h/o CoNS bacteremia in Stage III sacral decubitus ulcer, not grossly infected Afebrile w/o leukocytosis normal rifampin associated urinary discoloration Iron def anemia ischemic cardiomyopathy s/p AICD h/o DVT s/p IVC filter b/l TKR h/o carotid stent h/o Cervical and Lumbar spinal fusions PLAN: --pending JANIE on Sunday to further evaluate valve leaflets, AICD leads, and r/ o remnant eustachian valve IE (unlikely) --continue IV vanc (D#6) and PO rifampin (D#3) until JANIE. decision about abx length pending JANIE result --defer to primary ID for mgmt of E coli/kleb UTI completing cetriaxone (D#7) --f/u 05/08 blood cx --monitor LFTs on rifampin. ordered for tomorrow AM labs Subjective Constitutional: Reports: no symptoms Respiratory: Reports: no symptoms Cardiovascular: Reports: no symptoms Genitourinary: Reports: no symptoms Skin: Reports: no symptoms Hematologic: Reports: no symptoms Musculoskeletal: Reports: no symptoms Allergies: Coded Allergies: LATEX (Unverified Allergy, Mild, Rash, 09/03/14) QUININE (Unverified Allergy, Unknown, Rash Hives, 05/23/15) Quinine Sulfate Objective Vital Signs Last 24 Hour Vital Signs Date Time Temp Pulse Resp B/P (MAP) Pulse Ox O2 Delivery O2 Flow Rate FiO2 05/11/17 15:44 97.2 65 20 154/78 96 Room Air 05/11/17 12:00 97.7 69 20 141/74 97 Room Air 05/11/17 08:00 98.0 72 20 169/85 97 Room Air 05/11/17 04:00 98.2 70 20 137/72 96 Room Air 05/11/17 00:00 97.4 77 20 120/61 97 Room Air 05/10/17 20:58 76 130/66 05/10/17 19:58 97.9 76 20 130/66 97 Room Air Height (Feet): 5 Height (Inches): 4.00 Weight (Pounds): 130 Objective VITAL SIGNS: Afebrile since admission. vitals reviewed. not on supplemental oxygen. GEN: awake, alert, non toxic appearing HEENT: pink conjunctiva, no conjunctival hemorrhages. oral mucosa dry, pharynx w/o exudate or effusion. No icterus. Head normocephalic, neck supple. no mucosal petechiae. undilated eye exam negative for Jacobsen spots. EOMI. NECK: No cervical LAD CHEST: Clear to auscultation bilaterally. HEART: S1 and S2, 2/6 GRISEL, no rubs. ABDOMEN: soft, non tender, non distended, normoactive bowel sounds. old healed scars. no cellulitis. no HSM. EXTREMITIES: No cyanosis, no clubbing, no edema. no osler nodes, no janeway lesions, no splinter hemorrhages, no petechiae. b/l knee scars, well healed, no effusion, no erythema, no warmth NEUROLOGIC: Awake, alert, LUE/LLE 1/5 strength. 3+ L patellar reflex. no response on babinski. no clonus. RUE strength preserved w/ some mild dysdiadochokinesia. : tolliver in place draining orange (rifampin strained) urine skin: mild xerosis. b/l onychomycosis. no petechiae, no purpura. LYMPH: no LAD RECTAL: deferred 05/08 blood cx ngtd PATIENT: IEVLISSE TRUJILLO LOC: 4E U # : [id number] AGE/SX: 76/F ROOM: 402 REG : 05/04/[address]: Lobito Ramirez MD : 1940 BED: 2 DIS : STATUS: ADM IN TLOC: SPEC #: [id number] MARGA: 05/04/17 STATUS: COMP REQ #: [id number] RECD: 05/04/[address]: JUSTIN BULL M.D. SOURCE: BLOOD ENTR: 05/04/17-[address] [facility] [address]: SPDESC: ORDERED: BLOOD CULT Procedure Result CULTURE BLOOD Final AEROBIC BOTTLE GRAM POSITIVE COCCI IN CLUSTERS CALLED TO AND READ BACK BY RN:OMAYRA IVERSON @12:50 05/05/17LB REPORTED TO DR RAMIREZ @ 1:04 05/05/17 LB ANAEROBIC BOTTLE GRAM POS COCCI IN CLUSTERS 05/06 CT Organism 1 STAPHYLOCOCCUS SP COAG NEG STA SP CN M.I.C. RX --------- --- CIPROFLOXACIN >=8 R GENTAMICIN 8 I LEVOFLOXACIN >=8 R OXACILLIN >=4 R BENZYLPENICILLIN >=0.5 R TETRACYCLINE 2 S TRIMETHOPRIM/SULFA <=10 S VANCOMYCIN 1 S RIFAMPIN <=0.5 S Laboratory Tests Test 05/11/17 04:30 05/11/17 04:50 White Blood Count 5.6 K/UL (4.8-10.8) Red Blood Count 2.42 M/UL (4.20-5.40) L Hemoglobin 7.4 G/DL (12.0-16.0) L Hematocrit 23.2 % (37.0-47.0) L Mean Corpuscular Volume 96 FL (80-99) Mean Corpuscular Hemoglobin 30.4 PG (27.0-31.0) Mean Corpuscular Hemoglobin Concent 31.8 G/DL (32.0-36.0) L Red Cell Distribution Width 17.9 % (11.6-14.8) H Platelet Count 197 K/UL (150-450) Mean Platelet Volume 6.2 FL (6.5-10.1) L Neutrophils (%) (Auto) % (45.0-75.0) Lymphocytes (%) (Auto) % (20.0-45.0) Monocytes (%) (Auto) % (1.0-10.0) Eosinophils (%) (Auto) % (0.0-3.0) Basophils (%) (Auto) % (0.0-2.0) Differential Total Cells Counted 100 Neutrophils % (Manual) 76 % (45-75) H Lymphocytes % (Manual) 20 % (20-45) Monocytes % (Manual) 3 % (1-10) Eosinophils % (Manual) 1 % (0-3) Basophils % (Manual) 0 % (0-2) Band Neutrophils 0 % (0-8) Platelet Estimate Adequate Platelet Morphology Normal Hypochromasia 1+ Anisocytosis 1+ Sodium Level 144 mEQ/L (135-145) Potassium Level 3.8 mEQ/L (3.4-4.9) Chloride Level 107 mEQ/L (98-107) Carbon Dioxide Level 28 mEQ/L (20-30) Anion Gap 9 (5-15) Blood Urea Nitrogen 12 mg/dL (7-23) Creatinine 0.4 mg/dL (0.5-0.9) L Estimat Glomerular Filtration Rate mL/min (>60) Glucose Level 90 mg/dL (74-106) Calcium Level 8.9 mg/dL (8.6-10.2) Urine Color [place] Urine Appearance Clear Urine pH 7 (4.5-8.0) Urine Specific [place] 1.010 (1.005-1.035) Urine Protein Negative (NEGATIVE) Urine Glucose (UA) Negative (NEGATIVE) Urine Ketones Negative (NEGATIVE) Urine Occult Blood Negative (NEGATIVE) Urine Nitrite Negative (NEGATIVE) Urine Bilirubin 1+ (NEGATIVE) H Urine Ictotest Urine Urobilinogen 1 MG/DL (0.0-1.0) H Urine Leukocyte Esterase 2+ (NEGATIVE) H Urine RBC 0-2 /HPF (0 - 2) Urine WBC 5-10 /HPF (0 - 2) H Urine Squamous Epithelial Cells Few /LPF (NONE/OCC) Urine Bacteria Few /HPF (NONE) Urine Mucus Few /LPF (NONE/OCC) H Radiology Patient : IVELISSE TRUJILLO Referring Physician: Joshua Mclean M.D. ID Number: [id number] Service Date: 05/11/17 : 1940 Report Date: 05/11/17 Gender: F Accession No.: [id number] Location: Procedure: CTA Head wo/w Contrast Indication: Contour is Technique: Continuous helical transaxial imaging of the head was obtained during rapid intravenous contrast administration. Arterial phase of enhancement obtained. Coronal 2-D reformats were also obtained and maximum intensity projection images in multiple planes. Study obtained in a Siemens sensation [address] Total Dose length Product (DLP): [address] Dose Index Volume (CTDIvol): 0.17x2, 70.38, 16.5, 82.52, 54.98x2 mGy Comparison: Noncontrast CT head 11/27/16 Findings: Noncontrast portion of the examination demonstrates areas of encephalomalacia involving left occipital, right parietal temporal and a small portion of the left parietal lobe. The left parietal infarct is new since the last study but also appears old. Generalized atrophy the brain is noted. There is a cavum septum pellucida. No definite mass effect or edema identified. No acute hemorrhage identified. Moderate periventricular low-attenuation is present. CTA demonstrates no vascular malformation or aneurysm. Moderate calcific plaque present within the cavernous and supraclinoid ICA bilaterally. There does not appear to be any significant stenosis. There is no occlusion of the major arterial structures within the anterior posterior circulation. The vertebral basilar arteries appear small. Both posterior cerebral arteries arise from the distal ICA bilaterally. The right MCA distal branches are attenuated likely related to the infarct involving the right temporal parietal lobe. Impression: No occlusion, high-grade stenosis, aneurysm or vascular malformation identified on the CTA head. Multiple old cerebral infarcts as described above. Generalized atrophy of the brain Chronic small disease involving white matter. Current Medications Medications (Trade) Dose Ordered Sig/Don Route PRN Reason Start Time Stop Time Status Last Admin Dose Admin Acetaminophen (Tylenol) 650 mg Q4H PRN ORAL T>100.5 05/04/17 21:45 06/03/17 21:44 05/08/17 09:24 Al Hydroxide/Mg Hydroxide (Mylanta II) 30 ml Q6H PRN ORAL dyspepsia 05/04/17 21:45 06/03/17 21:44 Alprazolam (Xanax) 0.25 mg Q6H PRN ORAL For Anxiety 05/04/17 21:45 05/11/17 21:44 Carvedilol (Coreg) 3.125 mg Q12HR ORAL 05/05/17 09:00 06/04/17 08:59 05/10/17 20:58 Ceftriaxone Sodium 1 gm/ Dextrose 55 ml @ 110 mls/hr Q24H IVPB 05/05/17 16:00 05/12/17 15:59 05/10/17 16:23 Chlorhexidine Gluconate (Merari-Hex 2%) 1 applic DAILY TOPIC 05/09/17 09:00 06/08/17 08:59 05/11/17 10:45 Clopidogrel Bisulfate (Plavix) 75 mg DAILY ORAL 05/05/17 09:00 06/04/17 08:59 05/10/17 09:42 Dextrose (Dextrose 50%) STAT PRN IV Hypoglycemia 05/04/17 21:45 06/03/17 21:44 Heparin Sodium (Porcine) (Heparin 5000 units/ml) 5,000 units EVERY 12 HOURS SUBQ 05/05/17 09:00 06/04/17 08:59 05/10/17 20:59 Insulin Aspart (NovoLOG) BEFORE MEALS AND HS SUBQ 05/05/17 06:30 06/04/17 06:29 05/10/17 21:00 Lorazepam (Ativan 2mg/ml 1ml) 0.5 mg Q4H PRN IV Breakthrough anxiety/agitation 05/04/17 21:45 05/11/17 21:44 Losartan Potassium (Cozaar) 25 mg DAILY ORAL 05/06/17 09:00 06/05/17 08:59 05/10/17 09:43 Mirtazapine (Remeron) 15 mg BEDTIME ORAL 05/04/17 23:00 06/03/17 22:59 05/10/17 20:58 Morphine Sulfate (Morphine Sulfate) 1 mg Q4H PRN IVP PAIN 4-10 05/04/17 21:45 05/11/17 21:44 05/08/17 09:39 Ondansetron HCl (Zofran) 4 mg Q6H PRN IVP Nausea & Vomiting 05/04/17 21:45 06/03/17 21:44 Polyethylene Glycol (Miralax) 17 gm HSPRN PRN ORAL Constipation 05/04/17 21:45 06/03/17 21:44 Rifampin (Rifadin) 300 mg EVERY 12 HOURS ORAL 05/08/17 17:00 06/16/17 16:59 05/10/17 20:58 Sertraline HCl (Zoloft) 100 mg DAILY ORAL 05/05/17 09:00 06/04/17 08:59 05/10/17 09:42 Vancomycin HCl (Vanco rx to dose) 1 ea DAILY PRN MISC Per Rx Protocol 05/05/17 15:00 06/04/17 14:59 Vancomycin HCl 500 mg/Dextrose 110 ml @ 110 mls/hr Q12HR@0200,1400 IVPB 05/06/17 02:00 06/16/17 01:59 05/11/17 14:09 Zolpidem Tartrate (Ambien) 5 mg HSPRN PRN ORAL Insomnia 05/04/17 22:00 05/11/17 21:59 05/08/17 23:32 Joshua Mclean M.D. May 11, 2017 16:33
[2017-05-11] MEDS: cefTRIAXone 1 GM in D5W 55 ML IVPB SCH (18:02)
[2017-05-11 20:00] VITALS: BP 128/78
[2017-05-11] MEDS: Miralax 17gm pkt ORAL PRN (20:50)
[2017-05-12] VITALS: BP 140/72
[2017-05-12] MEDS: Vancomycin 500mg/D5W 110ml IVPB SCH ×4 (01:14→13:29)
[2017-05-12 04:00] VITALS: BP 156/72
[2017-05-12] MEDS: NovoLOG Insulin Flexpen SUBQ SCH ×4 (06:09→21:00)
[2017-05-12 06:55] LABS: BASOPHILS % (AUTO) 0.7 % (0.0-2.0); EOSINOPHILS % (AUTO) 2.9 % (0.0-3.0); LYMPHOCYTES % (AUTO) 19.2 % (20.0-45.0); MEAN CORPUSCULAR HEMOGLOBIN 30.1 PG (27.0-31.0); MEAN CORPUSCULAR HGB CONC 30.7 G/DL (32.0-36.0); MEAN CORPUSCULAR VOLUME 98 FL (80-99); MEAN PLATELET VOLUME 6.1 FL (6.5-10.1); MONOCYTES % (AUTO) 10.6 % (1.0-10.0); NEUTROPHILS % (AUTO) 66.5 % (45.0-75.0); PLATELET COUNT 227 K/UL (150-450); RED BLOOD COUNT 2.65 M/UL (4.20-5.40); RED CELL DISTRIBUTION WIDTH 18.1 % (11.6-14.8); WHITE BLOOD COUNT 4.7 K/UL (4.8-10.8)
[2017-05-12 07:07] LABS: ANION GAP 8 (5-15); CALCIUM 9.1 mg/dL (8.6-10.2); CARBON DIOXIDE 27 mEQ/L (20-30); CHLORIDE 104 mEQ/L (98-107); CREATININE 0.5 mg/dL (0.5-0.9); HEMOLYSIS 1; POTASSIUM 4.3 mEQ/L (3.4-4.9); SODIUM 139 mEQ/L (135-145)
[2017-05-12 07:18] LABS: ALANINE AMINOTRANSFERASE 9 U/L (3-33); ASPARTATE AMINO TRANSFERASE 16 U/L (5-40); BILIRUBIN,DIRECT 0.1 mg/dL (0.1-0.3); HEMOLYSIS 4; TOTAL PROTEIN 5.5 g/dL (6.6-8.7)
[2017-05-12 08:00] VITALS: BP 157/74
[2017-05-12] MEDS: Losartan 25mg tab ORAL SCH (08:30)
[2017-05-12] MEDS: Sertraline 100mg tab ORAL SCH (08:30)
[2017-05-12] MEDS: Dyna-Hex 2% Top Sol 8oz TOPIC SCH (08:31)
[2017-05-12] MEDS: Heparin 5000 units/ml inj SUBQ SCH ×2 (08:32→21:57)
--- NOTE | 2017-05-12 10:38 | Infectious Diseases Prog Note ---
Assessment/Plan Problems: (1) UTI (urinary tract infection) Assessment & Plan: due to Klebsiella pneumonia and E coli , both sensitive to ceftriaxon , will D/C tomorrow (2) Sepsis Assessment & Plan: due to coag negative staph , source most likely sacral wound , transthoracic echo didn't show vegetations, but not the ideal test to rule out jena valve endocarditis or AICD leads endocarditis . doing JANIE at this late stage after being on IV antibiotics will have low yield , so negative JANIE will not rule out small vegetations which might have dislodged by now , and would not change the duration of treatment , it will only put the patient at high risk for complications from the procedure , so I would continue rifampin with vancomycin for 6 weeks total to cover for coage negative staph bacteremia and possible endocarditis .pharmacy to monitor trough and adjust dose as needed to keep between 15-20. repeated blood culture to confirm clearance is negative on 05/08 . EOT 06/19/17. RECOMMEND : 1.weekly labs: CBC, CMP while on antibiotics 2.biweekly vancomycin trough at least to keep between 15-20 3. repeat blood culture two sets at least after done with iv antibiotics treatment . (3) Cerebral vascular disease Assessment & Plan: old, stable. continue off loading as needed (4) Sacral wound Assessment & Plan: not infected, continue off loading and local care (5) Diabetes mellitus Assessment & Plan: recommend tight glycemic control to keep blood glucose between 80-120 Subjective Constitutional: Reports: no symptoms HEENT: Reports: no symptoms Respiratory: Reports: no symptoms Breasts: Reports: no symptoms Cardiovascular: Reports: no symptoms Gastrointestinal/Abdominal: Reports: no symptoms Genitourinary: Reports: no symptoms Neurologic: Reports: no symptoms Psychiatric: Reports: no symptoms Skin: Reports: no symptoms Endocrine: Reports: no symptoms Hematologic: Reports: no symptoms Allergies: Coded Allergies: LATEX (Unverified Allergy, Mild, Rash, 09/03/14) QUININE (Unverified Allergy, Unknown, Rash Hives, 05/23/15) Quinine Sulfate Subjective she was awake and alert, up in bed, follows commands , no fever or chills, no diarrhea . Objective Vital Signs Last 24 Hour Vital Signs Date Time Temp Pulse Resp B/P (MAP) Pulse Ox O2 Delivery O2 Flow Rate FiO2 05/12/17 08:30 157/74 05/12/17 08:30 70 157/74 05/12/17 08:00 97.7 70 18 157/74 99 Room Air 05/12/17 04:00 97.3 71 18 156/72 96 Room Air 05/12/17 00:00 97.9 79 20 140/72 96 Room Air 05/11/17 20:47 128 78/78 05/11/17 20:00 98.0 78 18 128/78 96 Room Air 05/11/17 15:44 97.2 65 20 154/78 96 Room Air 05/11/17 12:00 97.7 69 20 141/74 97 Room Air Height (Feet): 5 Height (Inches): 4.00 Weight (Pounds): 130 General Appearance: WD/WN, no acute distress HEENT: normocephalic, atraumatic, anicteric, mucous membranes moist, EOMI, pharynx normal, supple Respiratory/Chest: chest wall non-tender, lungs clear, normal breath sounds, no respiratory distress, no accessory muscle use Cardiovascular: normal peripheral pulses, normal rate, regular rhythm, no gallop/murmur, no JVD Abdomen: normal bowel sounds, soft, non tender, no organomegaly, non distended , no mass, no scars Extremities: no cyanosis, no clubbing Skin: no rash, no lesions, ulcers Neurologic/Psychiatric: alert, responsive Laboratory Tests Test 05/12/17 05:33 White Blood Count 4.7 K/UL (4.8-10.8) L Red Blood Count 2.65 M/UL (4.20-5.40) L Hemoglobin 8.0 G/DL (12.0-16.0) L Hematocrit 26.0 % (37.0-47.0) L Mean Corpuscular Volume 98 FL (80-99) Mean Corpuscular Hemoglobin 30.1 PG (27.0-31.0) Mean Corpuscular Hemoglobin Concent 30.7 G/DL (32.0-36.0) L Red Cell Distribution Width 18.1 % (11.6-14.8) H Platelet Count 227 K/UL (150-450) Mean Platelet Volume 6.1 FL (6.5-10.1) L Neutrophils (%) (Auto) 66.5 % (45.0-75.0) Lymphocytes (%) (Auto) 19.2 % (20.0-45.0) L Monocytes (%) (Auto) 10.6 % (1.0-10.0) H Eosinophils (%) (Auto) 2.9 % (0.0-3.0) Basophils (%) (Auto) 0.7 % (0.0-2.0) Sodium Level 139 mEQ/L (135-145) Potassium Level 4.3 mEQ/L (3.4-4.9) Chloride Level 104 mEQ/L (98-107) Carbon Dioxide Level 27 mEQ/L (20-30) Anion Gap 8 (5-15) Blood Urea Nitrogen 10 mg/dL (7-23) Creatinine 0.5 mg/dL (0.5-0.9) Estimat Glomerular Filtration Rate mL/min (>60) Glucose Level 84 mg/dL (74-106) Calcium Level 9.1 mg/dL (8.6-10.2) Total Bilirubin < 0.2 mg/dL (0.0-1.2) Direct Bilirubin 0.1 mg/dL (0.1-0.3) Aspartate Amino Transf (AST/SGOT) 16 U/L (5-40) Alanine Aminotransferase (ALT/SGPT) 9 U/L (3-33) Alkaline Phosphatase 83 U/L (35-104) Total Protein 5.5 g/dL (6.6-8.7) L Albumin 3.2 g/dL (3.5-5.2) L Current Medications Medications (Trade) Dose Ordered Sig/Don Route PRN Reason Start Time Stop Time Status Last Admin Dose Admin Acetaminophen (Tylenol) 650 mg Q4H PRN ORAL T>100.5 05/04/17 21:45 06/03/17 21:44 05/11/17 17:58 Al Hydroxide/Mg Hydroxide (Mylanta II) 30 ml Q6H PRN ORAL dyspepsia 05/04/17 21:45 06/03/17 21:44 Carvedilol (Coreg) 3.125 mg Q12HR ORAL 05/05/17 09:00 06/04/17 08:59 05/12/17 08:30 Ceftriaxone Sodium 1 gm/ Dextrose 55 ml @ 110 mls/hr Q24H IVPB 05/05/17 16:00 05/12/17 15:59 05/11/17 18:02 Chlorhexidine Gluconate (Merari-Hex 2%) 1 applic DAILY TOPIC 05/09/17 09:00 06/08/17 08:59 05/12/17 08:31 Clopidogrel Bisulfate (Plavix) 75 mg DAILY ORAL 05/05/17 09:00 06/04/17 08:59 05/12/17 08:30 Dextrose (Dextrose 50%) STAT PRN IV Hypoglycemia 05/04/17 21:45 06/03/17 21:44 Heparin Sodium (Porcine) (Heparin 5000 units/ml) 5,000 units EVERY 12 HOURS SUBQ 05/05/17 09:00 06/04/17 08:59 05/12/17 08:32 Insulin Aspart (NovoLOG) BEFORE MEALS AND HS SUBQ 05/05/17 06:30 06/04/17 06:29 05/10/17 21:00 Losartan Potassium (Cozaar) 25 mg DAILY ORAL 05/06/17 09:00 06/05/17 08:59 05/12/17 08:30 Mirtazapine (Remeron) 15 mg BEDTIME ORAL 05/04/17 23:00 06/03/17 22:59 05/11/17 20:47 Ondansetron HCl (Zofran) 4 mg Q6H PRN IVP Nausea & Vomiting 05/04/17 21:45 06/03/17 21:44 Polyethylene Glycol (Miralax) 17 gm HSPRN PRN ORAL Constipation 05/04/17 21:45 06/03/17 21:44 05/11/17 20:50 Rifampin (Rifadin) 300 mg EVERY 12 HOURS ORAL 05/08/17 17:00 06/16/17 16:59 05/12/17 08:30 Sertraline HCl (Zoloft) 100 mg DAILY ORAL 05/05/17 09:00 06/04/17 08:59 05/12/17 08:30 Vancomycin HCl (Vanco rx to dose) 1 ea DAILY PRN MISC Per Rx Protocol 05/05/17 15:00 06/04/17 14:59 Vancomycin HCl 500 mg/Dextrose 110 ml @ 110 mls/hr Q12HR@0200,1400 IVPB 05/06/17 02:00 06/16/17 01:59 05/12/17 01:14 Annie Lilly M.D. May 12, 2017 10:38
[2017-05-12 11:52] VITALS: BP 133/77
--- NOTE | 2017-05-12 13:10 | Internal Med Progress Note ---
Subjective Date of Service: May 12, 2017 Physician Name Delfin Martinez Attending Physician Lobito Jones MD Current Medications Medications (Trade) Dose Ordered Sig/Don Route PRN Reason Start Time Stop Time Status Last Admin Dose Admin Acetaminophen (Tylenol) 650 mg Q4H PRN ORAL T>100.5 05/04/17 21:45 06/03/17 21:44 05/11/17 17:58 Al Hydroxide/Mg Hydroxide (Mylanta II) 30 ml Q6H PRN ORAL dyspepsia 05/04/17 21:45 06/03/17 21:44 Carvedilol (Coreg) 3.125 mg Q12HR ORAL 05/05/17 09:00 06/04/17 08:59 05/12/17 08:30 Ceftriaxone Sodium 1 gm/ Dextrose 55 ml @ 110 mls/hr Q24H IVPB 05/05/17 16:00 05/12/17 15:59 05/11/17 18:02 Chlorhexidine Gluconate (Merari-Hex 2%) 1 applic DAILY TOPIC 05/09/17 09:00 06/08/17 08:59 05/12/17 08:31 Clopidogrel Bisulfate (Plavix) 75 mg DAILY ORAL 05/05/17 09:00 06/04/17 08:59 05/12/17 08:30 Dextrose (Dextrose 50%) STAT PRN IV Hypoglycemia 05/04/17 21:45 06/03/17 21:44 Heparin Sodium (Porcine) (Heparin 5000 units/ml) 5,000 units EVERY 12 HOURS SUBQ 05/05/17 09:00 06/04/17 08:59 05/12/17 08:32 Insulin Aspart (NovoLOG) BEFORE MEALS AND HS SUBQ 05/05/17 06:30 06/04/17 06:29 05/10/17 21:00 Losartan Potassium (Cozaar) 25 mg DAILY ORAL 05/06/17 09:00 06/05/17 08:59 05/12/17 08:30 Mirtazapine (Remeron) 15 mg BEDTIME ORAL 05/04/17 23:00 06/03/17 22:59 05/11/17 20:47 Ondansetron HCl (Zofran) 4 mg Q6H PRN IVP Nausea & Vomiting 05/04/17 21:45 06/03/17 21:44 Polyethylene Glycol (Miralax) 17 gm HSPRN PRN ORAL Constipation 05/04/17 21:45 06/03/17 21:44 05/11/17 20:50 Rifampin (Rifadin) 300 mg EVERY 12 HOURS ORAL 05/08/17 17:00 06/16/17 16:59 05/12/17 08:30 Sertraline HCl (Zoloft) 100 mg DAILY ORAL 05/05/17 09:00 06/04/17 08:59 05/12/17 08:30 Vancomycin HCl (Vanco rx to dose) 1 ea DAILY PRN MISC Per Rx Protocol 05/05/17 15:00 06/04/17 14:59 Vancomycin HCl 500 mg/Dextrose 110 ml @ 110 mls/hr Q12HR@0200,1400 IVPB 05/06/17 02:00 06/16/17 01:59 05/12/17 01:14 Allergies: Coded Allergies: LATEX (Unverified Allergy, Mild, Rash, 09/03/14) QUININE (Unverified Allergy, Unknown, Rash Hives, 05/23/15) Quinine Sulfate ROS Limited/Unobtainable: No Constitutional: Reports: no symptoms HEENT: Reports: no symptoms Cardiovascular: Reports: no symptoms Respiratory: Reports: no symptoms Gastrointestinal/Abdominal: Reports: no symptoms Genitourinary: Reports: no symptoms Neurologic/Psychiatric: Reports: no symptoms Subjective 76 YO F admitted with altered mental status. Now UTI and Sepsis. Cover for Int Med-Dr Jones. See 2 ID opinions concerning patient need for transesophageal echocardiogram to R/O endocarditis. Objective Last Vital Signs Date Time Temp Pulse Resp B/P (MAP) Pulse Ox O2 Delivery O2 Flow Rate FiO2 05/12/17 11:52 97.8 73 20 133/77 98 Room Air Laboratory Tests Test 05/12/17 05:33 White Blood Count 4.7 K/UL (4.8-10.8) L Red Blood Count 2.65 M/UL (4.20-5.40) L Hemoglobin 8.0 G/DL (12.0-16.0) L Hematocrit 26.0 % (37.0-47.0) L Mean Corpuscular Volume 98 FL (80-99) Mean Corpuscular Hemoglobin 30.1 PG (27.0-31.0) Mean Corpuscular Hemoglobin Concent 30.7 G/DL (32.0-36.0) L Red Cell Distribution Width 18.1 % (11.6-14.8) H Platelet Count 227 K/UL (150-450) Mean Platelet Volume 6.1 FL (6.5-10.1) L Neutrophils (%) (Auto) 66.5 % (45.0-75.0) Lymphocytes (%) (Auto) 19.2 % (20.0-45.0) L Monocytes (%) (Auto) 10.6 % (1.0-10.0) H Eosinophils (%) (Auto) 2.9 % (0.0-3.0) Basophils (%) (Auto) 0.7 % (0.0-2.0) Sodium Level 139 mEQ/L (135-145) Potassium Level 4.3 mEQ/L (3.4-4.9) Chloride Level 104 mEQ/L (98-107) Carbon Dioxide Level 27 mEQ/L (20-30) Anion Gap 8 (5-15) Blood Urea Nitrogen 10 mg/dL (7-23) Creatinine 0.5 mg/dL (0.5-0.9) Estimat Glomerular Filtration Rate mL/min (>60) Glucose Level 84 mg/dL (74-106) Calcium Level 9.1 mg/dL (8.6-10.2) Total Bilirubin < 0.2 mg/dL (0.0-1.2) Direct Bilirubin 0.1 mg/dL (0.1-0.3) Aspartate Amino Transf (AST/SGOT) 16 U/L (5-40) Alanine Aminotransferase (ALT/SGPT) 9 U/L (3-33) Alkaline Phosphatase 83 U/L (35-104) Total Protein 5.5 g/dL (6.6-8.7) L Albumin 3.2 g/dL (3.5-5.2) L Objective General Appearance: WD/WN, no apparent distress, alert EENT: PERRL/EOMI, normal ENT inspection Neck: non-tender, normal alignment, supple, normal inspection Cardiovascular: normal peripheral pulses, normal rate, regular rhythm, no gallop/murmur, no JVD Respiratory/Chest: chest wall non-tender, lungs clear, normal breath sounds, no respiratory distress, no accessory muscle use Abdomen: normal bowel sounds, non tender, soft, no organomegaly, no mass Extremities: other - left hemiparesis Neurologic: 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 See ID note concerning source. Await JANIE on 05/15/17 to R/O endocarditis. Await repeat blood cultures. Cont vanco for 6 weeks per ID if JANIE positive for endocarditis. S/P PICC placement (4) Diarrhea Assessment & Plan: Resolved. (5) Fracture (6) Severe anemia Assessment & Plan: Worsening. Sikhism. Cont IV venofer. (7) DVT (deep venous thrombosis) (8) CVA (cerebrovascular accident) (9) CAD (coronary artery disease) Assessment & Plan: see cardiology note. (10) Diabetes mellitus Assessment & Plan: Cont novolog slideng scale (11) CHF (congestive heart failure) (12) UTI (urinary tract infection) Assessment & Plan: E. Coli. Continue ceftriaxone for 7 days per ID Status: stable Assessment/Plan Patient needs transesophageal echo to R/O endocarditis per ID consult X2. If JANIE pos for endocarditis, patient needs 6 weeks IV vanco; if neg can D/C IV vanco after JANIE DELFIN MARTINEZ May 12, 2017 13:10
--- NOTE | 2017-05-12 13:35 | Infectious Diseases Prog Note ---
Assessment/Plan Assessment/Plan Infectious Diseases 2nd opinion ASSESSMENT: E coli/klebsiella UTI Staphylococcus epidermidis bacteremia that doesn't meet clinical criteria for IE (satisfies only 1-2 minor modified Medley criteria; would need 2 major, 1 major + 3 minor, or 5 minor) micro lab confirmed all isolates from 05/04 blood cx were Staph epidermidis. not Staph lugdunensis. no clinical evidence of ICD pocket infection RF negative (10.6 IU/mL) ESR 5mm/hr and CRP <0.3mg/dL reassuring repeat U/A w/o active sediment. no evidence of glomerulonephritis CTA head with old ischemic disease. no concern for mycotic aneurysm. CXR does not suggest SPE no vascular phenomena identified (arterial emboli, SPE, mycotic aneurysm , intracranial bleed, conjunctival hemorrhages, Janeway lesions) no immunologic phenomena (GN, osler nodes, Jacobsen spots, RF) surveillance blood cx (05/08) ngtd h/o CoNS bacteremia in Stage III sacral decubitus ulcer, not grossly infected Afebrile w/o leukocytosis normal rifampin associated urinary discoloration LFTs normal on rifampin (05/12) Iron def anemia ischemic cardiomyopathy s/p AICD h/o DVT s/p IVC filter b/l TKR h/o carotid stent h/o Cervical and Lumbar spinal fusions PLAN: --pending JANIE on Sunday to further evaluate valve leaflets, AICD leads, and r/ o remnant eustachian valve IE (unlikely) --continue IV vanc (D#7) and PO rifampin (D#4) until JANIE. decision about abx length pending JANIE result. given low pre-test probability for IE, a decent quality JANIE will r/o IE or infection on ICD lead. --completing D#7/7 ceftriaxone mgmt of E coli/kleb UTI --f/u 05/08 blood cx covering for Dr. Bustillos. Subjective Constitutional: Reports: no symptoms Cardiovascular: Reports: no symptoms Gastrointestinal/Abdominal: Reports: no symptoms Genitourinary: Reports: no symptoms Hematologic: Reports: no symptoms Musculoskeletal: Reports: no symptoms Allergies: Coded Allergies: LATEX (Unverified Allergy, Mild, Rash, 09/03/14) QUININE (Unverified Allergy, Unknown, Rash Hives, 05/23/15) Quinine Sulfate Objective Vital Signs Last 24 Hour Vital Signs Date Time Temp Pulse Resp B/P (MAP) Pulse Ox O2 Delivery O2 Flow Rate FiO2 05/12/17 11:52 97.8 73 20 133/77 98 Room Air 05/12/17 08:30 157/74 05/12/17 08:30 70 157/74 05/12/17 08:00 97.7 70 18 157/74 99 Room Air 05/12/17 04:00 97.3 71 18 156/72 96 Room Air 05/12/17 00:00 97.9 79 20 140/72 96 Room Air 05/11/17 20:47 128 78/78 05/11/17 20:00 98.0 78 18 128/78 96 Room Air 05/11/17 15:44 97.2 65 20 154/78 96 Room Air Height (Feet): 5 Height (Inches): 4.00 Weight (Pounds): 130 Objective VITAL SIGNS: Afebrile since admission. vitals reviewed. not on supplemental oxygen. GEN: awake, alert, non toxic appearing HEENT: pink conjunctiva, no conjunctival hemorrhages. oral mucosa dry, pharynx w/o exudate or effusion. No icterus. Head normocephalic, neck supple. no mucosal petechiae. undilated eye exam negative for Jacobsen spots. EOMI. NECK: No cervical LAD CHEST: Clear to auscultation bilaterally. HEART: S1 and S2, 2/6 GRISEL, no rubs. ABDOMEN: soft, non tender, non distended, normoactive bowel sounds. old healed scars. no cellulitis. no HSM. EXTREMITIES: No cyanosis, no clubbing, no edema. no osler nodes, no janeway lesions, no splinter hemorrhages, no petechiae. b/l knee scars, well healed, no effusion, no erythema, no warmth. picc line c/d/i. NEUROLOGIC: Awake, alert, LUE/LLE 1/5 strength. 3+ L patellar reflex. no response on babinski. no clonus. RUE strength preserved w/ some mild dysdiadochokinesia. : tolliver in place draining orange (rifampin strained) urine skin: mild xerosis. b/l onychomycosis. no petechiae, no purpura. LYMPH: no LAD RECTAL: deferred Laboratory Tests Test 05/12/17 05:33 White Blood Count 4.7 K/UL (4.8-10.8) L Red Blood Count 2.65 M/UL (4.20-5.40) L Hemoglobin 8.0 G/DL (12.0-16.0) L Hematocrit 26.0 % (37.0-47.0) L Mean Corpuscular Volume 98 FL (80-99) Mean Corpuscular Hemoglobin 30.1 PG (27.0-31.0) Mean Corpuscular Hemoglobin Concent 30.7 G/DL (32.0-36.0) L Red Cell Distribution Width 18.1 % (11.6-14.8) H Platelet Count 227 K/UL (150-450) Mean Platelet Volume 6.1 FL (6.5-10.1) L Neutrophils (%) (Auto) 66.5 % (45.0-75.0) Lymphocytes (%) (Auto) 19.2 % (20.0-45.0) L Monocytes (%) (Auto) 10.6 % (1.0-10.0) H Eosinophils (%) (Auto) 2.9 % (0.0-3.0) Basophils (%) (Auto) 0.7 % (0.0-2.0) Sodium Level 139 mEQ/L (135-145) Potassium Level 4.3 mEQ/L (3.4-4.9) Chloride Level 104 mEQ/L (98-107) Carbon Dioxide Level 27 mEQ/L (20-30) Anion Gap 8 (5-15) Blood Urea Nitrogen 10 mg/dL (7-23) Creatinine 0.5 mg/dL (0.5-0.9) Estimat Glomerular Filtration Rate mL/min (>60) Glucose Level 84 mg/dL (74-106) Calcium Level 9.1 mg/dL (8.6-10.2) Total Bilirubin < 0.2 mg/dL (0.0-1.2) Direct Bilirubin 0.1 mg/dL (0.1-0.3) Aspartate Amino Transf (AST/SGOT) 16 U/L (5-40) Alanine Aminotransferase (ALT/SGPT) 9 U/L (3-33) Alkaline Phosphatase 83 U/L (35-104) Total Protein 5.5 g/dL (6.6-8.7) L Albumin 3.2 g/dL (3.5-5.2) L Current Medications Medications (Trade) Dose Ordered Sig/Don Route PRN Reason Start Time Stop Time Status Last Admin Dose Admin Acetaminophen (Tylenol) 650 mg Q4H PRN ORAL T>100.5 05/04/17 21:45 06/03/17 21:44 05/11/17 17:58 Al Hydroxide/Mg Hydroxide (Mylanta II) 30 ml Q6H PRN ORAL dyspepsia 05/04/17 21:45 06/03/17 21:44 Carvedilol (Coreg) 3.125 mg Q12HR ORAL 05/05/17 09:00 06/04/17 08:59 05/12/17 08:30 Ceftriaxone Sodium 1 gm/ Dextrose 55 ml @ 110 mls/hr Q24H IVPB 05/05/17 16:00 05/12/17 15:59 05/11/17 18:02 Chlorhexidine Gluconate (Merari-Hex 2%) 1 applic DAILY TOPIC 05/09/17 09:00 06/08/17 08:59 05/12/17 08:31 Clopidogrel Bisulfate (Plavix) 75 mg DAILY ORAL 05/05/17 09:00 06/04/17 08:59 05/12/17 08:30 Dextrose (Dextrose 50%) STAT PRN IV Hypoglycemia 05/04/17 21:45 06/03/17 21:44 Heparin Sodium (Porcine) (Heparin 5000 units/ml) 5,000 units EVERY 12 HOURS SUBQ 05/05/17 09:00 06/04/17 08:59 05/12/17 08:32 Insulin Aspart (NovoLOG) BEFORE MEALS AND HS SUBQ 05/05/17 06:30 06/04/17 06:29 05/10/17 21:00 Losartan Potassium (Cozaar) 25 mg DAILY ORAL 05/06/17 09:00 06/05/17 08:59 05/12/17 08:30 Mirtazapine (Remeron) 15 mg BEDTIME ORAL 05/04/17 23:00 06/03/17 22:59 05/11/17 20:47 Ondansetron HCl (Zofran) 4 mg Q6H PRN IVP Nausea & Vomiting 05/04/17 21:45 06/03/17 21:44 Polyethylene Glycol (Miralax) 17 gm HSPRN PRN ORAL Constipation 05/04/17 21:45 06/03/17 21:44 05/11/17 20:50 Rifampin (Rifadin) 300 mg EVERY 12 HOURS ORAL 05/08/17 17:00 06/16/17 16:59 05/12/17 08:30 Sertraline HCl (Zoloft) 100 mg DAILY ORAL 05/05/17 09:00 06/04/17 08:59 05/12/17 08:30 Vancomycin HCl (Vanco rx to dose) 1 ea DAILY PRN MISC Per Rx Protocol 05/05/17 15:00 06/04/17 14:59 Vancomycin HCl 500 mg/Dextrose 110 ml @ 110 mls/hr Q12HR@0200,1400 IVPB 05/06/17 02:00 06/16/17 01:59 05/12/17 13:29 Joshua Mclean M.D. May 12, 2017 13:35
--- NOTE | 2017-05-12 15:06 | Pulmonology Progress Note ---
Assessment/Plan Problems: (1) UTI (urinary tract infection) (2) Sacral wound (3) AICD (automatic cardioverter/defibrillator) present (4) Sick sinus syndrome (5) Cerebral vascular disease (6) Hypertension (7) Diabetes mellitus (8) Severe anemia Assessment/Plan awaiting 2Decho no new complains f/u h/h anemia w/u continue abx check cultures PICC line repeat cultures all notes and meds reviewed Subjective Interval Events: late note for 05/11, comfortable, no new complains Allergies: Coded Allergies: LATEX (Unverified Allergy, Mild, Rash, 09/03/14) QUININE (Unverified Allergy, Unknown, Rash Hives, 05/23/15) Quinine Sulfate Objective Last 24 Hour Vital Signs Date Time Temp Pulse Resp B/P (MAP) Pulse Ox O2 Delivery O2 Flow Rate FiO2 05/12/17 11:52 97.8 73 20 133/77 98 Room Air 05/12/17 08:30 157/74 05/12/17 08:30 70 157/74 05/12/17 08:00 97.7 70 18 157/74 99 Room Air 05/12/17 04:00 97.3 71 18 156/72 96 Room Air 05/12/17 00:00 97.9 79 20 140/72 96 Room Air 05/11/17 20:47 128 78/78 05/11/17 20:00 98.0 78 18 128/78 96 Room Air 05/11/17 15:44 97.2 65 20 154/78 96 Room Air Intake and Output 05/12/17 05/13/17 19:00 07:00 Intake Total 240 ml Balance 240 ml Intake Oral 240 ml General Appearance: WD/WN, no acute distress HEENT: atraumatic Respiratory/Chest: chest wall non-tender, lungs clear Cardiovascular: normal peripheral pulses, normal rate Abdomen: normal bowel sounds, soft, non tender, no organomegaly, no scars Extremities: no cyanosis Skin: no ulcers Neurologic/Psychiatric: 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 grossly normal Laboratory Tests 05/12/17 05:33: White Blood Count 4.7L, Red Blood Count 2.65L, Hemoglobin 8.0L, Hematocrit 26.0L , Mean Corpuscular Volume 98, Mean Corpuscular Hemoglobin 30.1, Mean Corpuscular Hemoglobin Concent 30.7L, Red Cell Distribution Width 18.1H, Platelet Count 227, Mean Platelet Volume 6.1L, Neutrophils (%) (Auto) 66.5, Lymphocytes (%) (Auto) 19.2L, Monocytes (%) (Auto) 10.6H, Eosinophils (%) (Auto ) 2.9, Basophils (%) (Auto) 0.7, Sodium Level 139, Potassium Level 4.3, Chloride Level 104, Carbon Dioxide Level 27, Anion Gap 8, Blood Urea Nitrogen 10 , Creatinine 0.5, Estimat Glomerular Filtration Rate , Glucose Level 84, Calcium Level 9.1, Total Bilirubin < 0.2, Direct Bilirubin 0.1, Aspartate Amino Transf (AST/SGOT) 16, Alanine Aminotransferase (ALT/SGPT) 9, Alkaline Phosphatase 83, Total Protein 5.5L, Albumin 3.2L Current Medications Medications (Trade) Dose Ordered Sig/Don Route PRN Reason Start Time Stop Time Status Last Admin Dose Admin Acetaminophen (Tylenol) 650 mg Q4H PRN ORAL T>100.5 05/04/17 21:45 06/03/17 21:44 05/11/17 17:58 Al Hydroxide/Mg Hydroxide (Mylanta II) 30 ml Q6H PRN ORAL dyspepsia 05/04/17 21:45 06/03/17 21:44 Carvedilol (Coreg) 3.125 mg Q12HR ORAL 05/05/17 09:00 06/04/17 08:59 05/12/17 08:30 Ceftriaxone Sodium 1 gm/ Dextrose 55 ml @ 110 mls/hr Q24H IVPB 05/05/17 16:00 05/12/17 15:59 05/11/17 18:02 Chlorhexidine Gluconate (Merari-Hex 2%) 1 applic DAILY TOPIC 05/09/17 09:00 06/08/17 08:59 05/12/17 08:31 Clopidogrel Bisulfate (Plavix) 75 mg DAILY ORAL 05/05/17 09:00 06/04/17 08:59 05/12/17 08:30 Dextrose (Dextrose 50%) STAT PRN IV Hypoglycemia 05/04/17 21:45 06/03/17 21:44 Heparin Sodium (Porcine) (Heparin 5000 units/ml) 5,000 units EVERY 12 HOURS SUBQ 05/05/17 09:00 06/04/17 08:59 05/12/17 08:32 Insulin Aspart (NovoLOG) BEFORE MEALS AND HS SUBQ 05/05/17 06:30 06/04/17 06:29 05/10/17 21:00 Losartan Potassium (Cozaar) 25 mg DAILY ORAL 05/06/17 09:00 06/05/17 08:59 05/12/17 08:30 Mirtazapine (Remeron) 15 mg BEDTIME ORAL 05/04/17 23:00 06/03/17 22:59 05/11/17 20:47 Ondansetron HCl (Zofran) 4 mg Q6H PRN IVP Nausea & Vomiting 05/04/17 21:45 06/03/17 21:44 Polyethylene Glycol (Miralax) 17 gm HSPRN PRN ORAL Constipation 05/04/17 21:45 06/03/17 21:44 05/11/17 20:50 Rifampin (Rifadin) 300 mg EVERY 12 HOURS ORAL 05/08/17 17:00 06/16/17 16:59 05/12/17 08:30 Sertraline HCl (Zoloft) 100 mg DAILY ORAL 05/05/17 09:00 06/04/17 08:59 05/12/17 08:30 Vancomycin HCl (Vanco rx to dose) 1 ea DAILY PRN MISC Per Rx Protocol 05/05/17 15:00 06/04/17 14:59 Vancomycin HCl 500 mg/Dextrose 110 ml @ 110 mls/hr Q12HR@0200,1400 IVPB 05/06/17 02:00 06/16/17 01:59 05/12/17 13:29 MARLENY TURPIN May 12, 2017 15:06
--- NOTE | 2017-05-12 15:07 | Pulmonology Progress Note ---
Assessment/Plan Problems: (1) UTI (urinary tract infection) (2) Sacral wound (3) AICD (automatic cardioverter/defibrillator) present (4) Sick sinus syndrome (5) Cerebral vascular disease (6) Hypertension (7) Diabetes mellitus (8) Severe anemia Assessment/Plan awaiting 2Decho no new complains continue abx check cultures PICC line repeat cultures all notes and meds reviewed d/w case management Subjective ROS Limited/Unobtainable: No Constitutional: Reports: no symptoms HEENT: Repors: no symptoms Respiratory: Reports: no symptoms Allergies: Coded Allergies: LATEX (Unverified Allergy, Mild, Rash, 09/03/14) QUININE (Unverified Allergy, Unknown, Rash Hives, 05/23/15) Quinine Sulfate Objective Last 24 Hour Vital Signs Date Time Temp Pulse Resp B/P (MAP) Pulse Ox O2 Delivery O2 Flow Rate FiO2 05/12/17 11:52 97.8 73 20 133/77 98 Room Air 05/12/17 08:30 157/74 05/12/17 08:30 70 157/74 05/12/17 08:00 97.7 70 18 157/74 99 Room Air 05/12/17 04:00 97.3 71 18 156/72 96 Room Air 05/12/17 00:00 97.9 79 20 140/72 96 Room Air 05/11/17 20:47 128 78/78 05/11/17 20:00 98.0 78 18 128/78 96 Room Air 05/11/17 15:44 97.2 65 20 154/78 96 Room Air Intake and Output 05/12/17 05/13/17 19:00 07:00 Intake Total 240 ml Balance 240 ml Intake Oral 240 ml General Appearance: no acute distress, cachetic HEENT: atraumatic Respiratory/Chest: chest wall non-tender, lungs clear Cardiovascular: normal peripheral pulses, normal rate Abdomen: normal bowel sounds, no organomegaly Genitourinary: normal external genitalia Extremities: no cyanosis Skin: no ulcers Neurologic/Psychiatric: no motor/sensory deficits, abnormal gait Laboratory Tests 05/12/17 05:33: White Blood Count 4.7L, Red Blood Count 2.65L, Hemoglobin 8.0L, Hematocrit 26.0L , Mean Corpuscular Volume 98, Mean Corpuscular Hemoglobin 30.1, Mean Corpuscular Hemoglobin Concent 30.7L, Red Cell Distribution Width 18.1H, Platelet Count 227, Mean Platelet Volume 6.1L, Neutrophils (%) (Auto) 66.5, Lymphocytes (%) (Auto) 19.2L, Monocytes (%) (Auto) 10.6H, Eosinophils (%) (Auto ) 2.9, Basophils (%) (Auto) 0.7, Sodium Level 139, Potassium Level 4.3, Chloride Level 104, Carbon Dioxide Level 27, Anion Gap 8, Blood Urea Nitrogen 10 , Creatinine 0.5, Estimat Glomerular Filtration Rate , Glucose Level 84, Calcium Level 9.1, Total Bilirubin < 0.2, Direct Bilirubin 0.1, Aspartate Amino Transf (AST/SGOT) 16, Alanine Aminotransferase (ALT/SGPT) 9, Alkaline Phosphatase 83, Total Protein 5.5L, Albumin 3.2L Current Medications Medications (Trade) Dose Ordered Sig/Don Route PRN Reason Start Time Stop Time Status Last Admin Dose Admin Acetaminophen (Tylenol) 650 mg Q4H PRN ORAL T>100.5 05/04/17 21:45 06/03/17 21:44 05/11/17 17:58 Al Hydroxide/Mg Hydroxide (Mylanta II) 30 ml Q6H PRN ORAL dyspepsia 05/04/17 21:45 06/03/17 21:44 Carvedilol (Coreg) 3.125 mg Q12HR ORAL 05/05/17 09:00 06/04/17 08:59 05/12/17 08:30 Ceftriaxone Sodium 1 gm/ Dextrose 55 ml @ 110 mls/hr Q24H IVPB 05/05/17 16:00 05/12/17 15:59 05/11/17 18:02 Chlorhexidine Gluconate (Merari-Hex 2%) 1 applic DAILY TOPIC 05/09/17 09:00 06/08/17 08:59 05/12/17 08:31 Clopidogrel Bisulfate (Plavix) 75 mg DAILY ORAL 05/05/17 09:00 06/04/17 08:59 05/12/17 08:30 Dextrose (Dextrose 50%) STAT PRN IV Hypoglycemia 05/04/17 21:45 06/03/17 21:44 Heparin Sodium (Porcine) (Heparin 5000 units/ml) 5,000 units EVERY 12 HOURS SUBQ 05/05/17 09:00 06/04/17 08:59 05/12/17 08:32 Insulin Aspart (NovoLOG) BEFORE MEALS AND HS SUBQ 05/05/17 06:30 06/04/17 06:29 05/10/17 21:00 Losartan Potassium (Cozaar) 25 mg DAILY ORAL 05/06/17 09:00 06/05/17 08:59 05/12/17 08:30 Mirtazapine (Remeron) 15 mg BEDTIME ORAL 05/04/17 23:00 06/03/17 22:59 05/11/17 20:47 Ondansetron HCl (Zofran) 4 mg Q6H PRN IVP Nausea & Vomiting 05/04/17 21:45 06/03/17 21:44 Polyethylene Glycol (Miralax) 17 gm HSPRN PRN ORAL Constipation 05/04/17 21:45 06/03/17 21:44 05/11/17 20:50 Rifampin (Rifadin) 300 mg EVERY 12 HOURS ORAL 05/08/17 17:00 06/16/17 16:59 05/12/17 08:30 Sertraline HCl (Zoloft) 100 mg DAILY ORAL 05/05/17 09:00 06/04/17 08:59 05/12/17 08:30 Vancomycin HCl (Vanco rx to dose) 1 ea DAILY PRN MISC Per Rx Protocol 05/05/17 15:00 06/04/17 14:59 Vancomycin HCl 500 mg/Dextrose 110 ml @ 110 mls/hr Q12HR@0200,1400 IVPB 05/06/17 02:00 06/16/17 01:59 05/12/17 13:29 MARLENY TURPIN May 12, 2017 15:06
--- NOTE | 2017-05-12 15:21 | Cardiac Electrophysiology PN ---
Assessment/Plan Assessment/Plan 1. Status post [employer] dual-chamber defibrillator implantation with Nl Fx with 11 years battery remaining. No clinical sign of ICD infection. 2. CHF due to Ischemic cardiomyopathy with EF 30-35 . Continue Coreg and Cozaar 3. Coag negative staph sepsis. Blood Cx positive three bottles, source ? suspect sacral wound. No clinical infection of ICD. TTE no vegetation. Both ID MDs recommended JANIE that is pending on Sunday by Dr. Luz. 4.Coronary artery disease, prior stent placed in 2013. 5. Carotid stenosis, status post right carotid stent placement. 6. History of gastrointestinal bleed, esophageal cancer noted in 2013. 7. Anemia. 8. Cerebrovascular accident with left hemiplegia. DW RN Subjective Subjective Awaiting JANIE to evaluated for endocarditis or ICD lead infection on Sunday by Dr Luz. No chest pain or SOB Objective Last 24 Hour Vital Signs Date Time Temp Pulse Resp B/P (MAP) Pulse Ox O2 Delivery O2 Flow Rate FiO2 05/12/17 11:52 97.8 73 20 133/77 98 Room Air 05/12/17 08:30 157/74 05/12/17 08:30 70 157/74 05/12/17 08:00 97.7 70 18 157/74 99 Room Air 05/12/17 04:00 97.3 71 18 156/72 96 Room Air 05/12/17 00:00 97.9 79 20 140/72 96 Room Air 05/11/17 20:47 128 78/78 05/11/17 20:00 98.0 78 18 128/78 96 Room Air 05/11/17 15:44 97.2 65 20 154/78 96 Room Air Intake and Output 05/12/17 05/13/17 19:00 07:00 Intake Total 240 ml Balance 240 ml Intake Oral 240 ml Laboratory Tests Test 05/12/17 05:33 White Blood Count 4.7 K/UL (4.8-10.8) L Red Blood Count 2.65 M/UL (4.20-5.40) L Hemoglobin 8.0 G/DL (12.0-16.0) L Hematocrit 26.0 % (37.0-47.0) L Mean Corpuscular Volume 98 FL (80-99) Mean Corpuscular Hemoglobin 30.1 PG (27.0-31.0) Mean Corpuscular Hemoglobin Concent 30.7 G/DL (32.0-36.0) L Red Cell Distribution Width 18.1 % (11.6-14.8) H Platelet Count 227 K/UL (150-450) Mean Platelet Volume 6.1 FL (6.5-10.1) L Neutrophils (%) (Auto) 66.5 % (45.0-75.0) Lymphocytes (%) (Auto) 19.2 % (20.0-45.0) L Monocytes (%) (Auto) 10.6 % (1.0-10.0) H Eosinophils (%) (Auto) 2.9 % (0.0-3.0) Basophils (%) (Auto) 0.7 % (0.0-2.0) Sodium Level 139 mEQ/L (135-145) Potassium Level 4.3 mEQ/L (3.4-4.9) Chloride Level 104 mEQ/L (98-107) Carbon Dioxide Level 27 mEQ/L (20-30) Anion Gap 8 (5-15) Blood Urea Nitrogen 10 mg/dL (7-23) Creatinine 0.5 mg/dL (0.5-0.9) Estimat Glomerular Filtration Rate mL/min (>60) Glucose Level 84 mg/dL (74-106) Calcium Level 9.1 mg/dL (8.6-10.2) Total Bilirubin < 0.2 mg/dL (0.0-1.2) Direct Bilirubin 0.1 mg/dL (0.1-0.3) Aspartate Amino Transf (AST/SGOT) 16 U/L (5-40) Alanine Aminotransferase (ALT/SGPT) 9 U/L (3-33) Alkaline Phosphatase 83 U/L (35-104) Total Protein 5.5 g/dL (6.6-8.7) L Albumin 3.2 g/dL (3.5-5.2) L Objective HEENT: No JVD Cardiovascular: RRR. No murmur. ICD left chest intact. No hematoma or local sign of infection. Respiratory/Chest: lungs clear, normal breath sounds, no respiratory distress , no accessory muscle use Abdomen: normal bowel sounds, non tender, soft, no organomegaly, no mass Extremities: left hemiparesis MARICRUZ DURON May 12, 2017 15:21
[2017-05-12] MEDS ORDERED: Tubing IV Secondary IV ONE (16:09)
[2017-05-12] MEDS ORDERED: NS 275ml ONE (16:09)
[2017-05-12 16:10] VITALS: BP 142/77
[2017-05-12 20:00] VITALS: BP 122/64
[2017-05-13] VITALS: BP 129/72
[2017-05-13] MEDS: Vancomycin 500mg/D5W 110ml IVPB SCH ×4 (02:00→14:28)
[2017-05-13] MEDS: Miralax 17gm pkt ORAL PRN ×2 (02:00→20:38)
[2017-05-13 04:00] VITALS: BP 131/73
[2017-05-13] MEDS: NovoLOG Insulin Flexpen SUBQ SCH ×4 (06:30→20:41)
[2017-05-13 07:19] LABS: BASOPHILS % (AUTO) 0.6 % (0.0-2.0); EOSINOPHILS % (AUTO) 2.4 % (0.0-3.0); LYMPHOCYTES % (AUTO) 18.4 % (20.0-45.0); MEAN CORPUSCULAR HEMOGLOBIN 31.7 PG (27.0-31.0); MEAN CORPUSCULAR HGB CONC 32.4 G/DL (32.0-36.0); MEAN CORPUSCULAR VOLUME 98 FL (80-99); MEAN PLATELET VOLUME 5.8 FL (6.5-10.1); MONOCYTES % (AUTO) 11.8 % (1.0-10.0); NEUTROPHILS % (AUTO) 66.8 % (45.0-75.0); PLATELET COUNT 198 K/UL (150-450); RED BLOOD COUNT 2.57 M/UL (4.20-5.40); WHITE BLOOD COUNT 4.5 K/UL (4.8-10.8)
[2017-05-13 07:43] LABS: ANION GAP 10 (5-15); CALCIUM 9.1 mg/dL (8.6-10.2); CARBON DIOXIDE 27 mEQ/L (20-30); CHLORIDE 106 mEQ/L (98-107); CREATININE 0.5 mg/dL (0.5-0.9); HEMOLYSIS 5; POTASSIUM 4.4 mEQ/L (3.4-4.9); SODIUM 143 mEQ/L (135-145)
[2017-05-13 08:15] VITALS: BP 151/89
[2017-05-13] MEDS: Heparin 5000 units/ml inj SUBQ SCH ×2 (09:28→20:40)
[2017-05-13] MEDS: Sertraline 100mg tab ORAL SCH (09:31)
[2017-05-13] MEDS: Losartan 25mg tab ORAL SCH (09:31)
[2017-05-13] MEDS: Dyna-Hex 2% Top Sol 8oz TOPIC SCH (09:32)
[2017-05-13 12:00] VITALS: BP 130/84
--- NOTE | 2017-05-13 13:47 | Pulmonology Progress Note ---
Assessment/Plan Problems: (1) UTI (urinary tract infection) (2) Sacral wound (3) AICD (automatic cardioverter/defibrillator) present (4) Sick sinus syndrome (5) Cerebral vascular disease (6) Hypertension (7) Diabetes mellitus (8) Severe anemia Assessment/Plan awaiting 2Decho no new complains continue abx check cultures PICC line all notes and meds reviewed d/w case management Subjective ROS Limited/Unobtainable: No Constitutional: Reports: no symptoms HEENT: Repors: no symptoms Allergies: Coded Allergies: LATEX (Unverified Allergy, Mild, Rash, 09/03/14) QUININE (Unverified Allergy, Unknown, Rash Hives, 05/23/15) Quinine Sulfate Objective Last 24 Hour Vital Signs Date Time Temp Pulse Resp B/P (MAP) Pulse Ox O2 Delivery O2 Flow Rate FiO2 05/13/17 12:00 97.8 92 19 130/84 95 Room Air 05/13/17 09:31 150/87 05/13/17 09:31 89 150/87 05/13/17 08:15 97.6 91 19 151/89 97 Room Air 05/13/17 04:00 98.4 85 20 131/73 96 Room Air 05/13/17 00:00 98.6 89 20 129/72 95 Room Air 05/12/17 21:56 86 122/64 05/12/17 20:00 98.8 86 20 122/64 96 Room Air 05/12/17 16:10 98.4 76 20 142/77 98 Room Air General Appearance: WD/WN HEENT: normocephalic, atraumatic Respiratory/Chest: chest wall non-tender, lungs clear Breasts: no masses Cardiovascular: normal peripheral pulses Abdomen: normal bowel sounds, soft, non tender Genitourinary: normal external genitalia Extremities: no cyanosis 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 Laboratory Tests 05/13/17 06:00: White Blood Count 4.5L, Red Blood Count 2.57L, Hemoglobin 8.1L, Hematocrit 25.1L , Mean Corpuscular Volume 98, Mean Corpuscular Hemoglobin 31.7H, Mean Corpuscular Hemoglobin Concent 32.4, Red Cell Distribution Width 18.0H, Platelet Count 198, Mean Platelet Volume 5.8L, Neutrophils (%) (Auto) 66.8, Lymphocytes (%) (Auto) 18.4L, Monocytes (%) (Auto) 11.8H, Eosinophils (%) (Auto ) 2.4, Basophils (%) (Auto) 0.6, Sodium Level 143, Potassium Level 4.4, Chloride Level 106, Carbon Dioxide Level 27, Anion Gap 10, Blood Urea Nitrogen 11, Creatinine 0.5, Estimat Glomerular Filtration Rate , Glucose Level 84, Calcium Level 9.1 Current Medications Medications (Trade) Dose Ordered Sig/Don Route PRN Reason Start Time Stop Time Status Last Admin Dose Admin Acetaminophen (Tylenol) 650 mg Q4H PRN ORAL T>100.5 05/04/17 21:45 06/03/17 21:44 05/11/17 17:58 Al Hydroxide/Mg Hydroxide (Mylanta II) 30 ml Q6H PRN ORAL dyspepsia 05/04/17 21:45 06/03/17 21:44 Carvedilol (Coreg) 3.125 mg Q12HR ORAL 05/05/17 09:00 06/04/17 08:59 05/13/17 09:31 Chlorhexidine Gluconate (Merari-Hex 2%) 1 applic DAILY TOPIC 05/09/17 09:00 06/08/17 08:59 05/13/17 09:32 Clopidogrel Bisulfate (Plavix) 75 mg DAILY ORAL 05/05/17 09:00 06/04/17 08:59 05/13/17 09:26 Dextrose (Dextrose 50%) STAT PRN IV Hypoglycemia 05/04/17 21:45 06/03/17 21:44 Heparin Sodium (Porcine) (Heparin 5000 units/ml) 5,000 units EVERY 12 HOURS SUBQ 05/05/17 09:00 06/04/17 08:59 05/13/17 09:28 Insulin Aspart (NovoLOG) BEFORE MEALS AND HS SUBQ 05/05/17 06:30 06/04/17 06:29 05/12/17 16:34 Losartan Potassium (Cozaar) 25 mg DAILY ORAL 05/06/17 09:00 06/05/17 08:59 05/13/17 09:31 Mirtazapine (Remeron) 15 mg BEDTIME ORAL 05/04/17 23:00 06/03/17 22:59 05/12/17 21:56 Ondansetron HCl (Zofran) 4 mg Q6H PRN IVP Nausea & Vomiting 05/04/17 21:45 06/03/17 21:44 Polyethylene Glycol (Miralax) 17 gm HSPRN PRN ORAL Constipation 05/04/17 21:45 06/03/17 21:44 05/13/17 02:00 Rifampin (Rifadin) 300 mg EVERY 12 HOURS ORAL 05/08/17 17:00 06/16/17 16:59 05/13/17 09:31 Sertraline HCl (Zoloft) 100 mg DAILY ORAL 05/05/17 09:00 06/04/17 08:59 05/13/17 09:31 Vancomycin HCl (Vanco rx to dose) 1 ea DAILY PRN MISC Per Rx Protocol 05/05/17 15:00 06/04/17 14:59 Vancomycin HCl 500 mg/Dextrose 110 ml @ 110 mls/hr Q12HR@0200,1400 IVPB 05/06/17 02:00 06/16/17 01:59 05/13/17 02:00 MARLENY TURPIN May 13, 2017 13:47
--- NOTE | 2017-05-13 13:58 | Internal Med Progress Note ---
Subjective Date of Service: May 13, 2017 Physician Name Martinez,Delfin Attending Physician Lobito Jones MD Current Medications Medications (Trade) Dose Ordered Sig/Don Route PRN Reason Start Time Stop Time Status Last Admin Dose Admin Acetaminophen (Tylenol) 650 mg Q4H PRN ORAL T>100.5 05/04/17 21:45 06/03/17 21:44 05/11/17 17:58 Al Hydroxide/Mg Hydroxide (Mylanta II) 30 ml Q6H PRN ORAL dyspepsia 05/04/17 21:45 06/03/17 21:44 Carvedilol (Coreg) 3.125 mg Q12HR ORAL 05/05/17 09:00 06/04/17 08:59 05/13/17 09:31 Chlorhexidine Gluconate (Merari-Hex 2%) 1 applic DAILY TOPIC 05/09/17 09:00 06/08/17 08:59 05/13/17 09:32 Clopidogrel Bisulfate (Plavix) 75 mg DAILY ORAL 05/05/17 09:00 06/04/17 08:59 05/13/17 09:26 Dextrose (Dextrose 50%) STAT PRN IV Hypoglycemia 05/04/17 21:45 06/03/17 21:44 Heparin Sodium (Porcine) (Heparin 5000 units/ml) 5,000 units EVERY 12 HOURS SUBQ 05/05/17 09:00 06/04/17 08:59 05/13/17 09:28 Insulin Aspart (NovoLOG) BEFORE MEALS AND HS SUBQ 05/05/17 06:30 06/04/17 06:29 05/12/17 16:34 Losartan Potassium (Cozaar) 25 mg DAILY ORAL 05/06/17 09:00 06/05/17 08:59 05/13/17 09:31 Mirtazapine (Remeron) 15 mg BEDTIME ORAL 05/04/17 23:00 06/03/17 22:59 05/12/17 21:56 Ondansetron HCl (Zofran) 4 mg Q6H PRN IVP Nausea & Vomiting 05/04/17 21:45 06/03/17 21:44 Polyethylene Glycol (Miralax) 17 gm HSPRN PRN ORAL Constipation 05/04/17 21:45 06/03/17 21:44 05/13/17 02:00 Rifampin (Rifadin) 300 mg EVERY 12 HOURS ORAL 05/08/17 17:00 06/16/17 16:59 05/13/17 09:31 Sertraline HCl (Zoloft) 100 mg DAILY ORAL 05/05/17 09:00 06/04/17 08:59 05/13/17 09:31 Vancomycin HCl (Vanco rx to dose) 1 ea DAILY PRN MISC Per Rx Protocol 05/05/17 15:00 06/04/17 14:59 Vancomycin HCl 500 mg/Dextrose 110 ml @ 110 mls/hr Q12HR@0200,1400 IVPB 05/06/17 02:00 06/16/17 01:59 05/13/17 02:00 Allergies: Coded Allergies: LATEX (Unverified Allergy, Mild, Rash, 09/03/14) QUININE (Unverified Allergy, Unknown, Rash Hives, 05/23/15) Quinine Sulfate ROS Limited/Unobtainable: No Constitutional: Reports: no symptoms HEENT: Reports: no symptoms Cardiovascular: Reports: no symptoms Respiratory: Reports: no symptoms Gastrointestinal/Abdominal: Reports: no symptoms Genitourinary: Reports: no symptoms Neurologic/Psychiatric: Reports: no symptoms Subjective 76 YO F admitted with altered mental status. Now UTI and Sepsis. Cover for Int Med-Dr Jones. Await transesophageal echocardiogram to R/O endocarditis. Objective Last Vital Signs Date Time Temp Pulse Resp B/P (MAP) Pulse Ox O2 Delivery O2 Flow Rate FiO2 05/13/17 12:00 97.8 92 19 130/84 95 Room Air Laboratory Tests Test 05/13/17 06:00 White Blood Count 4.5 K/UL (4.8-10.8) L Red Blood Count 2.57 M/UL (4.20-5.40) L Hemoglobin 8.1 G/DL (12.0-16.0) L Hematocrit 25.1 % (37.0-47.0) L Mean Corpuscular Volume 98 FL (80-99) Mean Corpuscular Hemoglobin 31.7 PG (27.0-31.0) H Mean Corpuscular Hemoglobin Concent 32.4 G/DL (32.0-36.0) Red Cell Distribution Width 18.0 % (11.6-14.8) H Platelet Count 198 K/UL (150-450) Mean Platelet Volume 5.8 FL (6.5-10.1) L Neutrophils (%) (Auto) 66.8 % (45.0-75.0) Lymphocytes (%) (Auto) 18.4 % (20.0-45.0) L Monocytes (%) (Auto) 11.8 % (1.0-10.0) H Eosinophils (%) (Auto) 2.4 % (0.0-3.0) Basophils (%) (Auto) 0.6 % (0.0-2.0) Sodium Level 143 mEQ/L (135-145) Potassium Level 4.4 mEQ/L (3.4-4.9) Chloride Level 106 mEQ/L (98-107) Carbon Dioxide Level 27 mEQ/L (20-30) Anion Gap 10 (5-15) Blood Urea Nitrogen 11 mg/dL (7-23) Creatinine 0.5 mg/dL (0.5-0.9) Estimat Glomerular Filtration Rate mL/min (>60) Glucose Level 84 mg/dL (74-106) Calcium Level 9.1 mg/dL (8.6-10.2) Objective General Appearance: WD/WN, no apparent distress, alert EENT: PERRL/EOMI, normal ENT inspection Neck: non-tender, normal alignment, supple, normal inspection Cardiovascular: normal peripheral pulses, normal rate, regular rhythm, no gallop/murmur, no JVD Respiratory/Chest: chest wall non-tender, lungs clear, normal breath sounds, no respiratory distress, no accessory muscle use Abdomen: normal bowel sounds, non tender, soft, no organomegaly, no mass Extremities: other - left hemiparesis 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 See ID note concerning source. Await JANIE on 05/15/17 to R/O endocarditis. Await repeat blood cultures. Cont vanco for 6 weeks per ID if JANIE positive for endocarditis. S/P PICC placement (4) Diarrhea Assessment & Plan: Resolved. (5) Fracture (6) Severe anemia Assessment & Plan: Worsening. Mandaen. Cont IV venofer. (7) DVT (deep venous thrombosis) (8) CVA (cerebrovascular accident) (9) CAD (coronary artery disease) Assessment & Plan: see cardiology note. (10) Diabetes mellitus Assessment & Plan: Cont novolog slideng scale (11) CHF (congestive heart failure) (12) UTI (urinary tract infection) Assessment & Plan: E. Coli. Continue ceftriaxone for 7 days per ID Assessment/Plan Patient needs transesophageal echo to R/O endocarditis per ID consult X2. If JANIE pos for endocarditis, patient needs 6 weeks IV vanco; if neg can D/C IV vanco after JANIE DELFIN MARTINEZ May 13, 2017 13:58
--- NOTE | 2017-05-13 14:27 | Infectious Diseases Prog Note ---
Assessment/Plan Problems: (1) UTI (urinary tract infection) Assessment & Plan: with E coli, and klebsiella pneumonia , both sensitive to ceftriaxon , already received 8 days , will D/C today (2) Sepsis Assessment & Plan: due to coag negative staph , source most likely sacral wound , transthoracic echo didn't show vegetations, but not the ideal test to rule out [place] valve endocarditis or AICD leads endocarditis . doing JANIE at this late stage after being on IV antibiotics for more than a week will have low yield , so negative JANIE will not rule out small vegetations which might have dislodged by now , and would not change the duration of treatment , it will only put the patient at high risk for complications from the procedure , so I would continue rifampin with vancomycin for 6 weeks total to cover for coage negative staph bacteremia and possible endocarditis .pharmacy to monitor trough and adjust dose as needed to keep between 15-20. repeated blood culture to confirm clearance is negative on 05/08 . EOT 06/19/17. RECOMMEND : 1.weekly labs: CBC, CMP while on antibiotics 2.biweekly vancomycin trough at least to keep between 15-20 3. repeat two sets of blood culture after done with IV antibiotics (3) Cerebral vascular disease Assessment & Plan: old, stable. continue off loading as needed (4) Sacral wound Assessment & Plan: not infected, continue off loading and local care (5) Diabetes mellitus Assessment & Plan: recommend tight glycemic control to keep blood glucose between 80-120 Subjective Constitutional: Reports: no symptoms HEENT: Reports: no symptoms Respiratory: Reports: no symptoms Breasts: Reports: no symptoms Cardiovascular: Reports: no symptoms Gastrointestinal/Abdominal: Reports: no symptoms Genitourinary: Reports: no symptoms Neurologic: Reports: no symptoms Psychiatric: Reports: no symptoms Skin: Reports: no symptoms Endocrine: Reports: no symptoms Hematologic: Reports: no symptoms Musculoskeletal: Reports: no symptoms Allergies: Coded Allergies: LATEX (Unverified Allergy, Mild, Rash, 09/03/14) QUININE (Unverified Allergy, Unknown, Rash Hives, 05/23/15) Quinine Sulfate Subjective she was awake and alert, up in bed, follows commands , no fever or chills, no diarrhea . Objective Vital Signs Last 24 Hour Vital Signs Date Time Temp Pulse Resp B/P (MAP) Pulse Ox O2 Delivery O2 Flow Rate FiO2 05/13/17 12:00 97.8 92 19 130/84 95 Room Air 05/13/17 09:31 150/87 05/13/17 09:31 89 150/87 05/13/17 08:15 97.6 91 19 151/89 97 Room Air 05/13/17 04:00 98.4 85 20 131/73 96 Room Air 05/13/17 00:00 98.6 89 20 129/72 95 Room Air 05/12/17 21:56 86 122/64 05/12/17 20:00 98.8 86 20 122/64 96 Room Air 05/12/17 16:10 98.4 76 20 142/77 98 Room Air Height (Feet): 5 Height (Inches): 4.00 Weight (Pounds): 130 General Appearance: WD/WN, no acute distress HEENT: normocephalic, atraumatic, anicteric, mucous membranes moist, PERRL, EOMI, pharynx normal, no JVD Respiratory/Chest: chest wall non-tender, lungs clear, normal breath sounds, no respiratory distress, no accessory muscle use Cardiovascular: normal peripheral pulses, normal rate, regular rhythm, no gallop/murmur, no JVD Abdomen: normal bowel sounds, soft, non tender, no organomegaly, non distended , no mass, no scars Extremities: no cyanosis, no clubbing Skin: no rash, no lesions, ulcers Neurologic/Psychiatric: alert, responsive Lymphatic: no neck adenopathy, no groin adenopathy Laboratory Tests Test 05/13/17 06:00 White Blood Count 4.5 K/UL (4.8-10.8) L Red Blood Count 2.57 M/UL (4.20-5.40) L Hemoglobin 8.1 G/DL (12.0-16.0) L Hematocrit 25.1 % (37.0-47.0) L Mean Corpuscular Volume 98 FL (80-99) Mean Corpuscular Hemoglobin 31.7 PG (27.0-31.0) H Mean Corpuscular Hemoglobin Concent 32.4 G/DL (32.0-36.0) Red Cell Distribution Width 18.0 % (11.6-14.8) H Platelet Count 198 K/UL (150-450) Mean Platelet Volume 5.8 FL (6.5-10.1) L Neutrophils (%) (Auto) 66.8 % (45.0-75.0) Lymphocytes (%) (Auto) 18.4 % (20.0-45.0) L Monocytes (%) (Auto) 11.8 % (1.0-10.0) H Eosinophils (%) (Auto) 2.4 % (0.0-3.0) Basophils (%) (Auto) 0.6 % (0.0-2.0) Sodium Level 143 mEQ/L (135-145) Potassium Level 4.4 mEQ/L (3.4-4.9) Chloride Level 106 mEQ/L (98-107) Carbon Dioxide Level 27 mEQ/L (20-30) Anion Gap 10 (5-15) Blood Urea Nitrogen 11 mg/dL (7-23) Creatinine 0.5 mg/dL (0.5-0.9) Estimat Glomerular Filtration Rate mL/min (>60) Glucose Level 84 mg/dL (74-106) Calcium Level 9.1 mg/dL (8.6-10.2) Current Medications Medications (Trade) Dose Ordered Sig/Don Route PRN Reason Start Time Stop Time Status Last Admin Dose Admin Acetaminophen (Tylenol) 650 mg Q4H PRN ORAL T>100.5 05/04/17 21:45 06/03/17 21:44 05/11/17 17:58 Al Hydroxide/Mg Hydroxide (Mylanta II) 30 ml Q6H PRN ORAL dyspepsia 05/04/17 21:45 06/03/17 21:44 Carvedilol (Coreg) 3.125 mg Q12HR ORAL 05/05/17 09:00 06/04/17 08:59 05/13/17 09:31 Chlorhexidine Gluconate (Merari-Hex 2%) 1 applic DAILY TOPIC 05/09/17 09:00 06/08/17 08:59 05/13/17 09:32 Clopidogrel Bisulfate (Plavix) 75 mg DAILY ORAL 05/05/17 09:00 06/04/17 08:59 05/13/17 09:26 Dextrose (Dextrose 50%) STAT PRN IV Hypoglycemia 05/04/17 21:45 06/03/17 21:44 Heparin Sodium (Porcine) (Heparin 5000 units/ml) 5,000 units EVERY 12 HOURS SUBQ 05/05/17 09:00 06/04/17 08:59 05/13/17 09:28 Insulin Aspart (NovoLOG) BEFORE MEALS AND HS SUBQ 05/05/17 06:30 06/04/17 06:29 05/12/17 16:34 Losartan Potassium (Cozaar) 25 mg DAILY ORAL 05/06/17 09:00 06/05/17 08:59 05/13/17 09:31 Mirtazapine (Remeron) 15 mg BEDTIME ORAL 05/04/17 23:00 06/03/17 22:59 05/12/17 21:56 Ondansetron HCl (Zofran) 4 mg Q6H PRN IVP Nausea & Vomiting 05/04/17 21:45 06/03/17 21:44 Polyethylene Glycol (Miralax) 17 gm HSPRN PRN ORAL Constipation 05/04/17 21:45 06/03/17 21:44 05/13/17 02:00 Rifampin (Rifadin) 300 mg EVERY 12 HOURS ORAL 05/08/17 17:00 06/16/17 16:59 05/13/17 09:31 Sertraline HCl (Zoloft) 100 mg DAILY ORAL 05/05/17 09:00 06/04/17 08:59 05/13/17 09:31 Vancomycin HCl (Vanco rx to dose) 1 ea DAILY PRN MISC Per Rx Protocol 05/05/17 15:00 06/04/17 14:59 Vancomycin HCl 500 mg/Dextrose 110 ml @ 110 mls/hr Q12HR@0200,1400 IVPB 05/06/17 02:00 06/16/17 01:59 05/13/17 02:00 Annie Lilly M.D. May 13, 2017 14:27
--- NOTE | 2017-05-13 14:48 | Infectious Diseases Prog Note ---
Assessment/Plan Assessment/Plan Infectious Diseases 2nd opinion ASSESSMENT: E coli/klebsiella UTI (05/13 s/p ceftriaxone D#8) Staphylococcus epidermidis bacteremia that doesn't meet clinical criteria for IE (satisfies only 1-2 minor modified Medley criteria; would need 2 major, 1 major + 3 minor, or 5 minor) micro lab confirmed all isolates from 05/04 blood cx were Staph epidermidis. not Staph lugdunensis. no clinical evidence of ICD pocket infection RF negative (10.6 IU/mL) ESR 5mm/hr and CRP <0.3mg/dL reassuring repeat U/A w/o active sediment. no evidence of glomerulonephritis CTA head with old ischemic disease. no concern for mycotic aneurysm. CXR does not suggest SPE no vascular phenomena identified (arterial emboli, SPE, mycotic aneurysm , intracranial bleed, conjunctival hemorrhages, Janeway lesions) no immunologic phenomena (GN, osler nodes, Jacobsen spots, RF) surveillance blood cx (05/08) ngtd h/o CoNS bacteremia in Stage III sacral decubitus ulcer, not grossly infected Afebrile w/o leukocytosis normal rifampin associated urinary discoloration LFTs normal on rifampin (05/12) Iron def anemia ischemic cardiomyopathy s/p AICD h/o DVT s/p IVC filter b/l TKR h/o carotid stent h/o Cervical and Lumbar spinal fusions PLAN: --pending JANIE on Sunday to further evaluate valve leaflets, AICD leads, and r/ o remnant eustachian valve IE (unlikely) --continue IV vanc (D#8) and PO rifampin (D#5) until JANIE. decision about abx length pending JANIE result. given low pre-test probability for IE, a decent quality JANIE will r/o IE or infection on ICD lead. --f/u 05/08 blood cx so far ngtd at [address] Bustillos. Subjective Constitutional: Reports: no symptoms Cardiovascular: Reports: no symptoms Genitourinary: Reports: no symptoms Skin: Reports: no symptoms Musculoskeletal: Reports: no symptoms Allergies: Coded Allergies: LATEX (Unverified Allergy, Mild, Rash, 09/03/14) QUININE (Unverified Allergy, Unknown, Rash Hives, 05/23/15) Quinine Sulfate Objective Vital Signs Last 24 Hour Vital Signs Date Time Temp Pulse Resp B/P (MAP) Pulse Ox O2 Delivery O2 Flow Rate FiO2 05/13/17 12:00 97.8 92 19 130/84 95 Room Air 05/13/17 09:31 150/87 05/13/17 09:31 89 150/87 05/13/17 08:15 97.6 91 19 151/89 97 Room Air 05/13/17 04:00 98.4 85 20 131/73 96 Room Air 05/13/17 00:00 98.6 89 20 129/72 95 Room Air 05/12/17 21:56 86 122/64 05/12/17 20:00 98.8 86 20 122/64 96 Room Air 05/12/17 16:10 98.4 76 20 142/77 98 Room Air Height (Feet): 5 Height (Inches): 4.00 Weight (Pounds): 130 Objective VITAL SIGNS: Afebrile since admission. vitals reviewed. not on supplemental oxygen. GEN: awake, alert, non toxic appearing HEENT: pink conjunctiva, no conjunctival hemorrhages. oral mucosa dry, pharynx w/o exudate or effusion. No icterus. Head normocephalic, neck supple. no mucosal petechiae. undilated eye exam negative for Jacobsen spots. EOMI. NECK: No cervical LAD CHEST: Clear to auscultation bilaterally. HEART: S1 and S2, 2/6 GRISEL, no rubs. ABDOMEN: soft, non tender, non distended, normoactive bowel sounds. old healed scars. no cellulitis. no HSM. EXTREMITIES: No cyanosis, no clubbing, no edema. no osler nodes, no janeway lesions, no splinter hemorrhages, no petechiae. b/l knee scars, well healed, no effusion, no erythema, no warmth. picc line c/d/i. NEUROLOGIC: Awake, alert, LUE/LLE 1/5 strength. 3+ L patellar reflex. no response on babinski. no clonus. RUE strength preserved w/ some mild dysdiadochokinesia. : tolliver in place draining orange (rifampin strained) urine skin: mild xerosis. b/l onychomycosis. no petechiae, no purpura. LYMPH: no LAD RECTAL: deferred Laboratory Tests Test 05/13/17 06:00 White Blood Count 4.5 K/UL (4.8-10.8) L Red Blood Count 2.57 M/UL (4.20-5.40) L Hemoglobin 8.1 G/DL (12.0-16.0) L Hematocrit 25.1 % (37.0-47.0) L Mean Corpuscular Volume 98 FL (80-99) Mean Corpuscular Hemoglobin 31.7 PG (27.0-31.0) H Mean Corpuscular Hemoglobin Concent 32.4 G/DL (32.0-36.0) Red Cell Distribution Width 18.0 % (11.6-14.8) H Platelet Count 198 K/UL (150-450) Mean Platelet Volume 5.8 FL (6.5-10.1) L Neutrophils (%) (Auto) 66.8 % (45.0-75.0) Lymphocytes (%) (Auto) 18.4 % (20.0-45.0) L Monocytes (%) (Auto) 11.8 % (1.0-10.0) H Eosinophils (%) (Auto) 2.4 % (0.0-3.0) Basophils (%) (Auto) 0.6 % (0.0-2.0) Sodium Level 143 mEQ/L (135-145) Potassium Level 4.4 mEQ/L (3.4-4.9) Chloride Level 106 mEQ/L (98-107) Carbon Dioxide Level 27 mEQ/L (20-30) Anion Gap 10 (5-15) Blood Urea Nitrogen 11 mg/dL (7-23) Creatinine 0.5 mg/dL (0.5-0.9) Estimat Glomerular Filtration Rate mL/min (>60) Glucose Level 84 mg/dL (74-106) Calcium Level 9.1 mg/dL (8.6-10.2) Current Medications Medications (Trade) Dose Ordered Sig/Don Route PRN Reason Start Time Stop Time Status Last Admin Dose Admin Acetaminophen (Tylenol) 650 mg Q4H PRN ORAL T>100.5 05/04/17 21:45 06/03/17 21:44 05/11/17 17:58 Al Hydroxide/Mg Hydroxide (Mylanta II) 30 ml Q6H PRN ORAL dyspepsia 05/04/17 21:45 06/03/17 21:44 Carvedilol (Coreg) 3.125 mg Q12HR ORAL 05/05/17 09:00 06/04/17 08:59 05/13/17 09:31 Chlorhexidine Gluconate (Merari-Hex 2%) 1 applic DAILY TOPIC 05/09/17 09:00 06/08/17 08:59 05/13/17 09:32 Clopidogrel Bisulfate (Plavix) 75 mg DAILY ORAL 05/05/17 09:00 06/04/17 08:59 05/13/17 09:26 Dextrose (Dextrose 50%) STAT PRN IV Hypoglycemia 05/04/17 21:45 06/03/17 21:44 Heparin Sodium (Porcine) (Heparin 5000 units/ml) 5,000 units EVERY 12 HOURS SUBQ 05/05/17 09:00 06/04/17 08:59 05/13/17 09:28 Insulin Aspart (NovoLOG) BEFORE MEALS AND HS SUBQ 05/05/17 06:30 06/04/17 06:29 05/12/17 16:34 Losartan Potassium (Cozaar) 25 mg DAILY ORAL 05/06/17 09:00 06/05/17 08:59 05/13/17 09:31 Mirtazapine (Remeron) 15 mg BEDTIME ORAL 05/04/17 23:00 06/03/17 22:59 05/12/17 21:56 Ondansetron HCl (Zofran) 4 mg Q6H PRN IVP Nausea & Vomiting 05/04/17 21:45 06/03/17 21:44 Polyethylene Glycol (Miralax) 17 gm HSPRN PRN ORAL Constipation 05/04/17 21:45 06/03/17 21:44 05/13/17 02:00 Rifampin (Rifadin) 300 mg EVERY 12 HOURS ORAL 05/08/17 17:00 06/16/17 16:59 05/13/17 09:31 Sertraline HCl (Zoloft) 100 mg DAILY ORAL 05/05/17 09:00 06/04/17 08:59 05/13/17 09:31 Vancomycin HCl (Vanco rx to dose) 1 ea DAILY PRN MISC Per Rx Protocol 05/05/17 15:00 06/04/17 14:59 Vancomycin HCl 500 mg/Dextrose 110 ml @ 110 mls/hr Q12HR@0200,1400 IVPB 05/06/17 02:00 06/16/17 01:59 05/13/17 14:28 Joshua Mclean M.D. May 13, 2017 14:48
[2017-05-13 15:31] VITALS: BP 124/85
[2017-05-13 20:00] VITALS: BP 126/72
[2017-05-14] VITALS (7 sets, daily range): BP systolic 120–148; BP diastolic 61–80
[2017-05-14] MEDS: Vancomycin 500mg/D5W 110ml IVPB SCH ×4 (02:01→14:56)
[2017-05-14] MEDS: NovoLOG Insulin Flexpen SUBQ SCH ×4 (06:05→20:49)
[2017-05-14 06:54] LABS: MEAN CORPUSCULAR HEMOGLOBIN 30.3 PG (27.0-31.0); MEAN CORPUSCULAR HGB CONC 30.8 G/DL (32.0-36.0); MEAN CORPUSCULAR VOLUME 99 FL (80-99); MEAN PLATELET VOLUME 5.9 FL (6.5-10.1); PLATELET COUNT 225 K/UL (150-450); RED BLOOD COUNT 2.62 M/UL (4.20-5.40); RED CELL DISTRIBUTION WIDTH 17.4 % (11.6-14.8); WHITE BLOOD COUNT 6.1 K/UL (4.8-10.8)
[2017-05-14 07:37] LABS: ANION GAP 10 (5-15); CARBON DIOXIDE 27 mEQ/L (20-30); CHLORIDE 106 mEQ/L (98-107); CREATININE 0.5 mg/dL (0.5-0.9); HEMOLYSIS 3; POTASSIUM 4.7 mEQ/L (3.4-4.9); SODIUM 143 mEQ/L (135-145)
[2017-05-14 07:57] LABS: EOSINOPHILS % (MANUAL) 1 % (0-3); LYMPHOCYTES % (MANUAL) 16 % (20-45); NEUTROPHILS % (MANUAL) 75 % (45-75); TOTAL CELLS COUNTED 100
[2017-05-14 07:58] LABS: ANISOCYTOSIS 1+; BAND NEUTROPHILS % (MANUAL) 0 % (0-8); BASOPHILS % (MANUAL) 0 % (0-2); HYPOCHROMASIA 1+; PLATELET ESTIMATE ADEQUATE; PLATELET MORPHOLOGY NORMAL
[2017-05-14] MEDS: Dyna-Hex 2% Top Sol 8oz TOPIC SCH (08:38)
[2017-05-14] MEDS: Losartan 25mg tab ORAL SCH (08:38)
[2017-05-14] MEDS: Heparin 5000 units/ml inj SUBQ SCH ×2 (08:40→20:49)
[2017-05-14] MEDS: Sertraline 100mg tab ORAL SCH (08:50)
--- NOTE | 2017-05-14 13:18 | Internal Med Progress Note ---
Subjective Date of Service: May 14, 2017 Physician Name MartinezDelfin Attending Physician Lobito Jones MD Current Medications Medications (Trade) Dose Ordered Sig/Don Route PRN Reason Start Time Stop Time Status Last Admin Dose Admin Acetaminophen (Tylenol) 650 mg Q4H PRN ORAL T>100.5 05/04/17 21:45 06/03/17 21:44 05/11/17 17:58 Al Hydroxide/Mg Hydroxide (Mylanta II) 30 ml Q6H PRN ORAL dyspepsia 05/04/17 21:45 06/03/17 21:44 Carvedilol (Coreg) 3.125 mg Q12HR ORAL 05/05/17 09:00 06/04/17 08:59 05/14/17 08:38 Chlorhexidine Gluconate (Merari-Hex 2%) 1 applic DAILY TOPIC 05/09/17 09:00 06/08/17 08:59 05/14/17 08:38 Clopidogrel Bisulfate (Plavix) 75 mg DAILY ORAL 05/05/17 09:00 06/04/17 08:59 05/14/17 08:37 Dextrose (Dextrose 50%) STAT PRN IV Hypoglycemia 05/04/17 21:45 06/03/17 21:44 Heparin Sodium (Porcine) (Heparin 5000 units/ml) 5,000 units EVERY 12 HOURS SUBQ 05/05/17 09:00 06/04/17 08:59 05/14/17 08:40 Insulin Aspart (NovoLOG) BEFORE MEALS AND HS SUBQ 05/05/17 06:30 06/04/17 06:29 05/13/17 20:41 Losartan Potassium (Cozaar) 25 mg DAILY ORAL 05/06/17 09:00 06/05/17 08:59 05/14/17 08:38 Mirtazapine (Remeron) 15 mg BEDTIME ORAL 05/04/17 23:00 06/03/17 22:59 05/13/17 20:38 Ondansetron HCl (Zofran) 4 mg Q6H PRN IVP Nausea & Vomiting 05/04/17 21:45 06/03/17 21:44 Polyethylene Glycol (Miralax) 17 gm HSPRN PRN ORAL Constipation 05/04/17 21:45 06/03/17 21:44 05/13/17 20:38 Rifampin (Rifadin) 300 mg EVERY 12 HOURS ORAL 05/08/17 17:00 06/16/17 16:59 05/14/17 08:37 Sertraline HCl (Zoloft) 100 mg DAILY ORAL 05/05/17 09:00 06/04/17 08:59 05/14/17 08:50 Vancomycin HCl (Vanco rx to dose) 1 ea DAILY PRN MISC Per Rx Protocol 05/05/17 15:00 06/04/17 14:59 Vancomycin HCl 500 mg/Dextrose 110 ml @ 110 mls/hr Q12HR@0200,1400 IVPB 05/06/17 02:00 06/16/17 01:59 05/14/17 02:01 Allergies: Coded Allergies: LATEX (Unverified Allergy, Mild, Rash, 09/03/14) QUININE (Unverified Allergy, Unknown, Rash Hives, 05/23/15) Quinine Sulfate ROS Limited/Unobtainable: No Constitutional: Reports: no symptoms HEENT: Reports: no symptoms Cardiovascular: Reports: no symptoms Respiratory: Reports: no symptoms Gastrointestinal/Abdominal: Reports: constipated Genitourinary: Reports: no symptoms Neurologic/Psychiatric: Reports: no symptoms Subjective 76 YO F admitted with altered mental status. Now UTI and Sepsis. Cover for Int Med-Dr Jones. Await transesophageal echocardiogram to R/O endocarditis. C/ O constipation Objective Last Vital Signs Date Time Temp Pulse Resp B/P (MAP) Pulse Ox O2 Delivery O2 Flow Rate FiO2 05/14/17 12:16 97.9 78 21 148/80 97 Room Air Laboratory Tests Test 05/14/17 06:03 White Blood Count 6.1 K/UL (4.8-10.8) Red Blood Count 2.62 M/UL (4.20-5.40) L Hemoglobin 7.9 G/DL (12.0-16.0) L Hematocrit 25.8 % (37.0-47.0) L Mean Corpuscular Volume 99 FL (80-99) Mean Corpuscular Hemoglobin 30.3 PG (27.0-31.0) Mean Corpuscular Hemoglobin Concent 30.8 G/DL (32.0-36.0) L Red Cell Distribution Width 17.4 % (11.6-14.8) H Platelet Count 225 K/UL (150-450) Mean Platelet Volume 5.9 FL (6.5-10.1) L Neutrophils (%) (Auto) % (45.0-75.0) Lymphocytes (%) (Auto) % (20.0-45.0) Monocytes (%) (Auto) % (1.0-10.0) Eosinophils (%) (Auto) % (0.0-3.0) Basophils (%) (Auto) % (0.0-2.0) Differential Total Cells Counted 100 Neutrophils % (Manual) 75 % (45-75) Lymphocytes % (Manual) 16 % (20-45) L Monocytes % (Manual) 8 % (1-10) Eosinophils % (Manual) 1 % (0-3) Basophils % (Manual) 0 % (0-2) Band Neutrophils 0 % (0-8) Platelet Estimate Adequate Platelet Morphology Normal Hypochromasia 1+ Anisocytosis 1+ Sodium Level 143 mEQ/L (135-145) Potassium Level 4.7 mEQ/L (3.4-4.9) Chloride Level 106 mEQ/L (98-107) Carbon Dioxide Level 27 mEQ/L (20-30) Anion Gap 10 (5-15) Blood Urea Nitrogen 12 mg/dL (7-23) Creatinine 0.5 mg/dL (0.5-0.9) Estimat Glomerular Filtration Rate mL/min (>60) Glucose Level 90 mg/dL (74-106) Calcium Level 9.0 mg/dL (8.6-10.2) Intake and Output 05/14/17 05/15/17 19:00 07:00 Intake Total 420 ml Output Total 450 ml Balance -30 ml Intake Oral 420 ml Output Urine Total 450 ml Objective General Appearance: WD/WN, no apparent distress, alert EENT: PERRL/EOMI, normal ENT inspection Neck: non-tender, normal alignment, supple, normal inspection Cardiovascular: normal peripheral pulses, normal rate, regular rhythm, no gallop/murmur, no JVD Respiratory/Chest: chest wall non-tender, lungs clear, normal breath sounds, no respiratory distress, no accessory muscle use Abdomen: normal bowel sounds, non tender, soft, no organomegaly, no mass Extremities: other - left hemiparesis Neurologic: portrait consultant II-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 See ID note concerning source. Await JANIE on 05/15/17 to R/O endocarditis. Await repeat blood cultures. Cont vanco for 6 weeks per ID if JANIE positive for endocarditis. S/P PICC placement (4) Diarrhea Assessment & Plan: Resolved. (5) Fracture (6) Severe anemia Assessment & Plan: Worsening. [facility]. Cont IV venofer. (7) DVT (deep venous thrombosis) (8) CVA (cerebrovascular accident) (9) CAD (coronary artery disease) Assessment & Plan: see cardiology note. (10) Diabetes mellitus Assessment & Plan: Cont novolog slideng scale (11) CHF (congestive heart failure) (12) UTI (urinary tract infection) Assessment & Plan: E. Coli. Continue ceftriaxone for 7 days per ID (13) Constipation Assessment & Plan: Colace BID Assessment/Plan Patient needs transesophageal echo to R/O endocarditis per ID consult X2. If JANIE pos for endocarditis, patient needs 6 weeks IV vanco; if neg can D/C IV vanco after JANIE DELFIN MARTINEZ May 14, 2017 13:18
--- NOTE | 2017-05-14 14:37 | Infectious Diseases Prog Note ---
Assessment/Plan Problems: (1) UTI (urinary tract infection) Assessment & Plan: due to Klebsiella pneumonia and E coli , S/P ceftriaxon for 7 days (2) Sepsis Assessment & Plan: due to coag negative staph , source most likely sacral wound , transthoracic echo didn't show vegetations, but not the ideal test to rule out [place] valve endocarditis or AICD leads endocarditis . doing JANIE at this late stage after being on IV antibiotics for 10 days will have low yield, and negative result should not change the duration of treatment , since small vegetations might have dislodged by now after being on vancomycin and rifampin for 10 days , it will only put the patient at high risk for complications from the procedure , so I would continue rifampin with vancomycin for 6 weeks total to cover for coage negative staph bacteremia and possible endocarditis. pharmacy to monitor trough and adjust dose as needed to keep between 15-20. repeated blood culture to confirm clearance is negative on 05/08 . EOT 06/19/17. RECOMMEND : 1.weekly labs: CBC, CMP while on antibiotics 2.biweekly vancomycin trough at least to keep between 15-20 3.repeat blood culture two sets at least after done with iv antibiotics treatment . 4.no need for JANIE at this late stage since it will be negative anyway , to avoid complications . (3) Cerebral vascular disease Assessment & Plan: old, stable. continue off loading as needed (4) Sacral wound Assessment & Plan: not infected, continue off loading and local care (5) Diabetes mellitus Assessment & Plan: recommend tight glycemic control to keep blood glucose between 80-120 Subjective Constitutional: Reports: no symptoms HEENT: Reports: no symptoms Respiratory: Reports: no symptoms Breasts: Reports: no symptoms Cardiovascular: Reports: no symptoms Gastrointestinal/Abdominal: Reports: no symptoms Genitourinary: Reports: no symptoms Neurologic: Reports: no symptoms Psychiatric: Reports: no symptoms Skin: Reports: no symptoms Endocrine: Reports: no symptoms Hematologic: Reports: no symptoms Musculoskeletal: Reports: no symptoms Allergies: Coded Allergies: LATEX (Unverified Allergy, Mild, Rash, 09/03/14) QUININE (Unverified Allergy, Unknown, Rash Hives, 05/23/15) Quinine Sulfate Subjective she was awake and alert, up in bed, follows commands , no fever or chills, no diarrhea . Objective Vital Signs Last 24 Hour Vital Signs Date Time Temp Pulse Resp B/P (MAP) Pulse Ox O2 Delivery O2 Flow Rate FiO2 05/14/17 12:16 97.9 78 21 148/80 97 Room Air 05/14/17 08:38 140/76 05/14/17 08:38 84 140/76 05/14/17 08:00 97.0 84 17 140/76 97 Room Air 05/14/17 04:00 98.1 87 18 133/61 95 Room Air 05/14/17 00:00 97.9 85 20 120/63 96 Room Air 05/13/17 20:39 71 126/72 05/13/17 20:00 99.2 71 20 126/72 97 Room Air 05/13/17 15:31 98.3 99 20 124/85 94 Room Air Height (Feet): 5 Height (Inches): 4.00 Weight (Pounds): 130 General Appearance: WD/WN, no acute distress HEENT: normocephalic, atraumatic, anicteric, mucous membranes moist, PERRL Respiratory/Chest: chest wall non-tender, lungs clear, normal breath sounds, no respiratory distress, no accessory muscle use, decreased breath sounds Cardiovascular: normal peripheral pulses, normal rate, regular rhythm, no gallop/murmur, no JVD Abdomen: normal bowel sounds, soft, non tender, no organomegaly, non distended , no mass, no scars Extremities: no cyanosis, no clubbing Skin: no rash, no lesions, ulcers Neurologic/Psychiatric: alert, responsive Laboratory Tests Test 05/14/17 06:03 05/14/17 13:30 White Blood Count 6.1 K/UL (4.8-10.8) Red Blood Count 2.62 M/UL (4.20-5.40) L Hemoglobin 7.9 G/DL (12.0-16.0) L Hematocrit 25.8 % (37.0-47.0) L Mean Corpuscular Volume 99 FL (80-99) Mean Corpuscular Hemoglobin 30.3 PG (27.0-31.0) Mean Corpuscular Hemoglobin Concent 30.8 G/DL (32.0-36.0) L Red Cell Distribution Width 17.4 % (11.6-14.8) H Platelet Count 225 K/UL (150-450) Mean Platelet Volume 5.9 FL (6.5-10.1) L Neutrophils (%) (Auto) % (45.0-75.0) Lymphocytes (%) (Auto) % (20.0-45.0) Monocytes (%) (Auto) % (1.0-10.0) Eosinophils (%) (Auto) % (0.0-3.0) Basophils (%) (Auto) % (0.0-2.0) Differential Total Cells Counted 100 Neutrophils % (Manual) 75 % (45-75) Lymphocytes % (Manual) 16 % (20-45) L Monocytes % (Manual) 8 % (1-10) Eosinophils % (Manual) 1 % (0-3) Basophils % (Manual) 0 % (0-2) Band Neutrophils 0 % (0-8) Platelet Estimate Adequate Platelet Morphology Normal Hypochromasia 1+ Anisocytosis 1+ Sodium Level 143 mEQ/L (135-145) Potassium Level 4.7 mEQ/L (3.4-4.9) Chloride Level 106 mEQ/L (98-107) Carbon Dioxide Level 27 mEQ/L (20-30) Anion Gap 10 (5-15) Blood Urea Nitrogen 12 mg/dL (7-23) Creatinine 0.5 mg/dL (0.5-0.9) Estimat Glomerular Filtration Rate mL/min (>60) Glucose Level 90 mg/dL (74-106) Calcium Level 9.0 mg/dL (8.6-10.2) Vancomycin Level Trough 18.7 ug/mL (5.0-12.0) H Current Medications Medications (Trade) Dose Ordered Sig/Don Route PRN Reason Start Time Stop Time Status Last Admin Dose Admin Acetaminophen (Tylenol) 650 mg Q4H PRN ORAL T>100.5 05/04/17 21:45 06/03/17 21:44 05/11/17 17:58 Al Hydroxide/Mg Hydroxide (Mylanta II) 30 ml Q6H PRN ORAL dyspepsia 05/04/17 21:45 06/03/17 21:44 Carvedilol (Coreg) 3.125 mg Q12HR ORAL 05/05/17 09:00 06/04/17 08:59 05/14/17 08:38 Chlorhexidine Gluconate (Merari-Hex 2%) 1 applic DAILY TOPIC 05/09/17 09:00 06/08/17 08:59 05/14/17 08:38 Clopidogrel Bisulfate (Plavix) 75 mg DAILY ORAL 05/05/17 09:00 06/04/17 08:59 05/14/17 08:37 Dextrose (Dextrose 50%) STAT PRN IV Hypoglycemia 05/04/17 21:45 06/03/17 21:44 Docusate Sodium (Colace) 100 mg TWICE A DAY ORAL 05/14/17 14:00 06/13/17 13:59 Heparin Sodium (Porcine) (Heparin 5000 units/ml) 5,000 units EVERY 12 HOURS SUBQ 05/05/17 09:00 06/04/17 08:59 05/14/17 08:40 Insulin Aspart (NovoLOG) BEFORE MEALS AND HS SUBQ 05/05/17 06:30 06/04/17 06:29 05/13/17 20:41 Losartan Potassium (Cozaar) 25 mg DAILY ORAL 05/06/17 09:00 06/05/17 08:59 05/14/17 08:38 Mirtazapine (Remeron) 15 mg BEDTIME ORAL 05/04/17 23:00 06/03/17 22:59 05/13/17 20:38 Ondansetron HCl (Zofran) 4 mg Q6H PRN IVP Nausea & Vomiting 05/04/17 21:45 06/03/17 21:44 Polyethylene Glycol (Miralax) 17 gm HSPRN PRN ORAL Constipation 05/04/17 21:45 06/03/17 21:44 05/13/17 20:38 Rifampin (Rifadin) 300 mg EVERY 12 HOURS ORAL 05/08/17 17:00 06/16/17 16:59 05/14/17 08:37 Sertraline HCl (Zoloft) 100 mg DAILY ORAL 05/05/17 09:00 06/04/17 08:59 05/14/17 08:50 Vancomycin HCl (Vanco rx to dose) 1 ea DAILY PRN MISC Per Rx Protocol 05/05/17 15:00 06/04/17 14:59 Vancomycin HCl 500 mg/Dextrose 110 ml @ 110 mls/hr Q12HR@0200,1400 IVPB 05/06/17 02:00 06/16/17 01:59 05/14/17 02:01 Annie Lilly M.D. May 14, 2017 14:37
[2017-05-14] MEDS: Docusate 100mg cap ORAL SCH ×2 (14:57→22:28)
[2017-05-14] MEDS ORDERED: NS 275ml ONE (15:57)
--- NOTE | 2017-05-14 16:16 | Pulmonology Progress Note ---
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%) Cardiomyopathy AICD Hx of CVA wit L hemiparesis Hx of DVT with IVC filter anemia functional quadriplegia st 3 sacral decub POA PLAN OF CARE [facility] floor acute encephalopathy likely due to dehydration and infectious process -resolved urine cx + Ecoli, Klebsiella; initial blood cx + SCON, repeated negative 2 ID follow ( needed 2 nd opinion for abx therapy and duration) per dr Mclean: Staphylococcus epidermidis bacteremia doesn't meet clinical criteria for IE by Medley criteria JANIE pending for AM to r/o vegetation to determine duration of abx therapy CXR negative O2 HHN prn BP management with BB and ARB cardio follows medical management of CHF, with BB and ARB interrogation done ECHO with rEF 30-35% and LVSP of 20 BS management with SS of insulin monitor counts , s/p IV Venofer per PMD patient will deny any blood transfusion continue antiplatelet therapy wound care as per wound nurse eval case discussed and evaluated by supervising physician Subjective Allergies: Coded Allergies: LATEX (Unverified Allergy, Mild, Rash, 09/03/14) QUININE (Unverified Allergy, Unknown, Rash Hives, 05/23/15) Quinine Sulfate Subjective afebrile, no signs of respiratory distress on RA sat stable JANIE pending for am Objective Last 24 Hour Vital Signs Date Time Temp Pulse Resp B/P (MAP) Pulse Ox O2 Delivery O2 Flow Rate FiO2 05/14/17 12:16 97.9 78 21 148/80 97 Room Air 05/14/17 08:38 140/76 05/14/17 08:38 84 140/76 05/14/17 08:00 97.0 84 17 140/76 97 Room Air 05/14/17 04:00 98.1 87 18 133/61 95 Room Air 05/14/17 00:00 97.9 85 20 120/63 96 Room Air 05/13/17 20:39 71 126/72 05/13/17 20:00 99.2 71 20 126/72 97 Room Air Intake and Output 05/14/17 05/15/17 19:00 07:00 Intake Total 420 ml Output Total 450 ml Balance -30 ml Intake Oral 420 ml Output Urine Total 450 ml Objective General Appearance: alert, responsive, bed bound Lines, tubes and drains: peripheral HEENT: normocephalic, atraumatic, anicteric Neck: supple Respiratory/Chest: chest wall non-tender, lungs clear, normal breath sounds, no respiratory distress, Left upper chest -AICD Cardiovascular/Chest: normal rate, regular rhythm, RUE PICC intact Abdomen: normal bowel sounds, non tender, soft Extremities: L side hemiparesis Neurologic: abnormal gait/ bedridden , alert, responsive, left hemiparesis Musculoskeletal: atrophy - BLE Laboratory Tests 05/14/17 06:03: White Blood Count 6.1, Red Blood Count 2.62L, Hemoglobin 7.9L, Hematocrit 25.8L , Mean Corpuscular Volume 99, Mean Corpuscular Hemoglobin 30.3, Mean Corpuscular Hemoglobin Concent 30.8L, Red Cell Distribution Width 17.4H, Platelet Count 225, Mean Platelet Volume 5.9L, Neutrophils (%) (Auto) , Lymphocytes (%) (Auto) , Monocytes (%) (Auto) , Eosinophils (%) (Auto) , Basophils (%) (Auto) , Differential Total Cells Counted 100, Neutrophils % ( Manual) 75, Lymphocytes % (Manual) 16L, Monocytes % (Manual) 8, Eosinophils % ( Manual) 1, Basophils % (Manual) 0, Band Neutrophils 0, Platelet Estimate Adequate, Platelet Morphology Normal, Hypochromasia 1+, Anisocytosis 1+, Sodium Level 143, Potassium Level 4.7, Chloride Level 106, Carbon Dioxide Level 27, Anion Gap 10, Blood Urea Nitrogen 12, Creatinine 0.5, Estimat Glomerular Filtration Rate , Glucose Level 90, Calcium Level 9.0 05/14/17 13:30: Vancomycin Level Trough 18.7H Current Medications Medications (Trade) Dose Ordered Sig/Don Route PRN Reason Start Time Stop Time Status Last Admin Dose Admin Acetaminophen (Tylenol) 650 mg Q4H PRN ORAL T>100.5 05/04/17 21:45 06/03/17 21:44 05/11/17 17:58 Al Hydroxide/Mg Hydroxide (Mylanta II) 30 ml Q6H PRN ORAL dyspepsia 05/04/17 21:45 06/03/17 21:44 Carvedilol (Coreg) 3.125 mg Q12HR ORAL 05/05/17 09:00 06/04/17 08:59 05/14/17 08:38 Chlorhexidine Gluconate (Merari-Hex 2%) 1 applic DAILY TOPIC 05/09/17 09:00 06/08/17 08:59 05/14/17 08:38 Clopidogrel Bisulfate (Plavix) 75 mg DAILY ORAL 05/05/17 09:00 06/04/17 08:59 05/14/17 08:37 Dextrose (Dextrose 50%) STAT PRN IV Hypoglycemia 05/04/17 21:45 06/03/17 21:44 Docusate Sodium (Colace) 100 mg TWICE A DAY ORAL 05/14/17 14:00 06/13/17 13:59 05/14/17 14:57 Heparin Sodium (Porcine) (Heparin 5000 units/ml) 5,000 units EVERY 12 HOURS SUBQ 05/05/17 09:00 06/04/17 08:59 05/14/17 08:40 Insulin Aspart (NovoLOG) BEFORE MEALS AND HS SUBQ 05/05/17 06:30 06/04/17 06:29 05/13/17 20:41 Losartan Potassium (Cozaar) 25 mg DAILY ORAL 05/06/17 09:00 06/05/17 08:59 05/14/17 08:38 Mirtazapine (Remeron) 15 mg BEDTIME ORAL 05/04/17 23:00 06/03/17 22:59 05/13/17 20:38 Ondansetron HCl (Zofran) 4 mg Q6H PRN IVP Nausea & Vomiting 05/04/17 21:45 06/03/17 21:44 Polyethylene Glycol (Miralax) 17 gm HSPRN PRN ORAL Constipation 05/04/17 21:45 06/03/17 21:44 05/13/17 20:38 Rifampin (Rifadin) 300 mg EVERY 12 HOURS ORAL 05/08/17 17:00 06/16/17 16:59 05/14/17 08:37 Sertraline HCl (Zoloft) 100 mg DAILY ORAL 05/05/17 09:00 06/04/17 08:59 05/14/17 08:50 Vancomycin HCl (Vanco rx to dose) 1 ea DAILY PRN MISC Per Rx Protocol 05/05/17 15:00 06/04/17 14:59 Vancomycin HCl 500 mg/Dextrose 110 ml @ 110 mls/hr Q12HR@0200,1400 IVPB 05/06/17 02:00 06/16/17 01:59 05/14/17 14:56 Nohemi Coto NP (Vanchtein) May 14, 2017 16:16
--- NOTE | 2017-05-14 20:34 | Cardiac Electrophysiology PN ---
Assessment/Plan Assessment/Plan 1. Status post [employer] dual-chamber defibrillator implantation with Nl Fx with 11 years battery remaining. No clinical sign of local ICD infection. 2. Ischemic cardiomyopathy with EF 30-35 . Continue Coreg and Cozaar 3. Coag negative staph sepsis. Blood Cx positive three bottles, source ? suspect sacral wound. No clinical infection of ICD. TTE no vegetation. Both ID MDs recommended JANIE that is pending tomorrow by Dr. Luz. 4.Coronary artery disease, prior stent placed in 2013. 5. Carotid stenosis, status post right carotid stent placement. 6. History of gastrointestinal bleed, esophageal cancer noted in 2013. 7. Anemia. 8. Cerebrovascular accident with left hemiplegia. DW RN Subjective Subjective Awaiting JANIE to evaluated for endocarditis or ICD lead infection tomorrow by Dr Luz. No chest pain or SOB. RN at bedside. Objective Last 24 Hour Vital Signs Date Time Temp Pulse Resp B/P (MAP) Pulse Ox O2 Delivery O2 Flow Rate FiO2 05/14/17 16:29 97.5 79 20 126/64 98 Room Air 05/14/17 12:16 97.9 78 21 148/80 97 Room Air 05/14/17 08:38 140/76 05/14/17 08:38 84 140/76 05/14/17 08:00 97.0 84 17 140/76 97 Room Air 05/14/17 04:00 98.1 87 18 133/61 95 Room Air 05/14/17 00:00 97.9 85 20 120/63 96 Room Air 05/13/17 20:39 71 126/72 Intake and Output 05/14/17 05/15/17 19:00 07:00 Intake Total 650 ml Output Total 800 ml Balance -150 ml Intake Oral 540 ml IV Total 110 ml Output Urine Total 800 ml Laboratory Tests Test 05/14/17 06:03 05/14/17 13:30 White Blood Count 6.1 K/UL (4.8-10.8) Red Blood Count 2.62 M/UL (4.20-5.40) L Hemoglobin 7.9 G/DL (12.0-16.0) L Hematocrit 25.8 % (37.0-47.0) L Mean Corpuscular Volume 99 FL (80-99) Mean Corpuscular Hemoglobin 30.3 PG (27.0-31.0) Mean Corpuscular Hemoglobin Concent 30.8 G/DL (32.0-36.0) L Red Cell Distribution Width 17.4 % (11.6-14.8) H Platelet Count 225 K/UL (150-450) Mean Platelet Volume 5.9 FL (6.5-10.1) L Neutrophils (%) (Auto) % (45.0-75.0) Lymphocytes (%) (Auto) % (20.0-45.0) Monocytes (%) (Auto) % (1.0-10.0) Eosinophils (%) (Auto) % (0.0-3.0) Basophils (%) (Auto) % (0.0-2.0) Differential Total Cells Counted 100 Neutrophils % (Manual) 75 % (45-75) Lymphocytes % (Manual) 16 % (20-45) L Monocytes % (Manual) 8 % (1-10) Eosinophils % (Manual) 1 % (0-3) Basophils % (Manual) 0 % (0-2) Band Neutrophils 0 % (0-8) Platelet Estimate Adequate Platelet Morphology Normal Hypochromasia 1+ Anisocytosis 1+ Sodium Level 143 mEQ/L (135-145) Potassium Level 4.7 mEQ/L (3.4-4.9) Chloride Level 106 mEQ/L (98-107) Carbon Dioxide Level 27 mEQ/L (20-30) Anion Gap 10 (5-15) Blood Urea Nitrogen 12 mg/dL (7-23) Creatinine 0.5 mg/dL (0.5-0.9) Estimat Glomerular Filtration Rate mL/min (>60) Glucose Level 90 mg/dL (74-106) Calcium Level 9.0 mg/dL (8.6-10.2) Vancomycin Level Trough 18.7 ug/mL (5.0-12.0) H Objective HEENT: No JVD Cardiovascular: RRR. No murmur. ICD left chest intact. No local sign of infection. Respiratory/Chest: lungs clear, normal breath sounds, no respiratory distress , no accessory muscle use Abdomen: soft, no organomegaly, no mass Extremities: left hemiparesis MARICRUZ DURON May 14, 2017 20:34
[2017-05-14] MEDS: Miralax 17gm pkt ORAL PRN (20:48)
[2017-05-15] VITALS (11 sets, daily range): BP systolic 119–153; BP diastolic 75–82
[2017-05-15] MEDS: Vancomycin 500mg/D5W 110ml IVPB SCH ×4 (02:24→16:26)
[2017-05-15] MEDS: NovoLOG Insulin Flexpen SUBQ SCH ×4 (05:59→20:49)
[2017-05-15 06:14] LABS: BASOPHILS % (AUTO) 0.5 % (0.0-2.0); EOSINOPHILS % (AUTO) 2.2 % (0.0-3.0); LYMPHOCYTES % (AUTO) 16.8 % (20.0-45.0); MEAN CORPUSCULAR HGB CONC 30.5 G/DL (32.0-36.0); MEAN CORPUSCULAR VOLUME 98 FL (80-99); NEUTROPHILS % (AUTO) 69.5 % (45.0-75.0); PLATELET COUNT 234 K/UL (150-450); RED CELL DISTRIBUTION WIDTH 17.1 % (11.6-14.8); WHITE BLOOD COUNT 5.5 K/UL (4.8-10.8)
[2017-05-15 06:32] LABS: ANION GAP 11 (5-15); CALCIUM 9.2 mg/dL (8.6-10.2); CARBON DIOXIDE 26 mEQ/L (20-30); CHLORIDE 102 mEQ/L (98-107); CREATININE 0.4 mg/dL (0.5-0.9); HEMOLYSIS 0; POTASSIUM 4.5 mEQ/L (3.4-4.9); SODIUM 139 mEQ/L (135-145)
[2017-05-15] MEDS: Sertraline 100mg tab ORAL SCH (09:00)
[2017-05-15] MEDS: Losartan 25mg tab ORAL SCH (09:00)
[2017-05-15] MEDS: Heparin 5000 units/ml inj SUBQ SCH ×2 (09:00→20:49)
[2017-05-15] MEDS: Docusate 100mg cap ORAL SCH ×2 (09:00→17:23)
--- NOTE | 2017-05-15 12:10 | Cardiology Progress Note ---
Assessment/Plan Assessment/Plan asked by dr wise to perform sharon indicated by katina britton and dr wise as it wall impact her managment i have discussed the possible risk and indication and alternative with pt andher gwen salinas. they have given informed consent for sharon will proceed with SHARON as requested Objective Last 24 Hour Vital Signs Date Time Temp Pulse Resp B/P (MAP) Pulse Ox O2 Delivery O2 Flow Rate FiO2 05/15/17 11:34 97.5 74 19 153/79 96 Room Air 05/15/17 09:00 123/75 05/15/17 09:00 76 123/75 05/15/17 08:02 97.2 76 20 123/75 97 Room Air 05/15/17 03:58 98.2 79 20 139/81 100 Room Air 05/14/17 23:38 98.1 77 19 128/72 100 Room Air 05/14/17 20:48 82 130/71 05/14/17 20:40 98.2 82 20 130/71 100 Room Air 05/14/17 16:29 97.5 79 20 126/64 98 Room Air 05/14/17 12:16 97.9 78 21 148/80 97 Room Air Laboratory Tests Test 05/14/17 13:30 05/15/17 05:45 Vancomycin Level Trough 18.7 ug/mL (5.0-12.0) H White Blood Count 5.5 K/UL (4.8-10.8) Red Blood Count 2.80 M/UL (4.20-5.40) L Hemoglobin 8.4 G/DL (12.0-16.0) L Hematocrit 27.5 % (37.0-47.0) L Mean Corpuscular Volume 98 FL (80-99) Mean Corpuscular Hemoglobin 30.0 PG (27.0-31.0) Mean Corpuscular Hemoglobin Concent 30.5 G/DL (32.0-36.0) L Red Cell Distribution Width 17.1 % (11.6-14.8) H Platelet Count 234 K/UL (150-450) Mean Platelet Volume 6.0 FL (6.5-10.1) L Neutrophils (%) (Auto) 69.5 % (45.0-75.0) Lymphocytes (%) (Auto) 16.8 % (20.0-45.0) L Monocytes (%) (Auto) 11.0 % (1.0-10.0) H Eosinophils (%) (Auto) 2.2 % (0.0-3.0) Basophils (%) (Auto) 0.5 % (0.0-2.0) Sodium Level 139 mEQ/L (135-145) Potassium Level 4.5 mEQ/L (3.4-4.9) Chloride Level 102 mEQ/L (98-107) Carbon Dioxide Level 26 mEQ/L (20-30) Anion Gap 11 (5-15) Blood Urea Nitrogen 11 mg/dL (7-23) Creatinine 0.4 mg/dL (0.5-0.9) L Estimat Glomerular Filtration Rate mL/min (>60) Glucose Level 93 mg/dL (74-106) Calcium Level 9.2 mg/dL (8.6-10.2) MARLON PERES May 15, 2017 12:10
--- NOTE | 2017-05-15 12:12 | Pre-Procedure Note/Attestation ---
Pre-Procedure Note/Attestation Complete Prior to Procedure Procedure Narrative: transeopahgeal echocardiogram Indications for Procedure Pre-Operative Diagnosis: bacteremia Attestation I attest that I discussed the nature of the procedure; its benefits; risks and complications; and alternatives (and the risks and benefits of such alternatives ), prior to the procedure, with the patient (or the patient's legal retail account representative rita painting). I attest that, if there was a reasonable possibility of needing a blood transfusion, the patient (or the patient's legal retail account representative) was given the [facility] [facility] standardized written summary, pursuant to the Alex Taz Blood Safety Act ([place] Health and Safety Code # 1645, as amended). I attest that I re-evaluated the patient just prior to the surgery and that there has been no change in the patient's H&P, except as documented below: MARLON PERES May 15, 2017 12:12
[2017-05-15] MEDS ORDERED: Propofol 10mg/ml 20ml IV ONE (13:13)
--- NOTE | 2017-05-15 14:03 | Brief Operative Note ---
Immediate Post Operative Note Operative Note Pre-op Diagnosis: bacteremia Procedure: sharon, pulse , continuous wave doppler imagign color jose doppler imaging Post-op Diagnosis: no vegetation on mitral , aortic or pulmonic valve , Tricuspid valve was not fully visualized full report dictated [id number] Post-op Diagnosis: same as pre-op Surgeon: [email or web address] Anesthesia: moderate sedation Specimen: none Complications: none Condition: stable Fluids: none Estimated Blood Loss: none Drains: none Implant(s) used?: No MARLON PERES May 15, 2017 14:03
[2017-05-15] MEDS ORDERED: LR 1000ml 1,000 ML IVLG SCH (14:04)
--- NOTE | 2017-05-15 14:11 | Anethesia Preoperative Eval ---
Anesthesia Pre-op PMH/ROS General Date of Evaluation: May 15, 2017 Time of Evaluation: 13:00 Anesthesiologist: Steven ASA Score: ASA 3 Mallampati Score Class I : Soft palate, uvula, fauces, pillars visible Class II: Soft palate, uvula, fauces visible Class III: Soft palate, base of uvula visible Class IV: Only hard plate visible Mallampati Classification: Class II Surgeon: García Diagnosis: Possible endocarditis Surgical Procedure: JANIE Family History: no anesthesia problems Allergies: Coded Allergies: LATEX (Unverified Allergy, Mild, Rash, 09/03/14) QUININE (Unverified Allergy, Unknown, Rash Hives, 05/23/15) Quinine Sulfate Medications: see eMAR Past Medical History Cardiovascular: Reports: HTN, CAD, [place], arrhythmia, other - S/P PPM/AICD Pulmonary: Denies: asthma, COPD, [place], other Gastrointestinal/Genitourinary: Reports: GERD Neurologic/Psychiatric: Reports: dementia, CVA - Left sided weakness Endocrine: Reports: DM PMH Narrative: HTN, CAD, CHF, PPM/AICD, EF=30%, CVA, DM, Dementia PSxH Narrative: PPM, AICD, Anesthesia Pre-op Phys. Exam Physician Exam Last Vital Signs Date Time Temp Pulse Resp B/P (MAP) Pulse Ox O2 Delivery O2 Flow Rate FiO2 05/15/17 11:34 97.5 74 19 153/79 96 Room Air Constitutional: NAD Neurologic: CN 2-12 intact Cardiovascular: RRR, no M/R/G Respiratory: CTA Gastrointestinal: S/NT/ND Airway Exam Mallampati Score: Class II MO: full ROM: full Dentures: upper Anesthesia Pre-op A/P Labs Hematology Test 05/15/17 05:45 White Blood Count 5.5 K/UL (4.8-10.8) Red Blood Count 2.80 M/UL (4.20-5.40) L Hemoglobin 8.4 G/DL (12.0-16.0) L Hematocrit 27.5 % (37.0-47.0) L Mean Corpuscular Volume 98 FL (80-99) Mean Corpuscular Hemoglobin 30.0 PG (27.0-31.0) Mean Corpuscular Hemoglobin Concent 30.5 G/DL (32.0-36.0) L Red Cell Distribution Width 17.1 % (11.6-14.8) H Platelet Count 234 K/UL (150-450) Mean Platelet Volume 6.0 FL (6.5-10.1) L Neutrophils (%) (Auto) 69.5 % (45.0-75.0) Lymphocytes (%) (Auto) 16.8 % (20.0-45.0) L Monocytes (%) (Auto) 11.0 % (1.0-10.0) H Eosinophils (%) (Auto) 2.2 % (0.0-3.0) Basophils (%) (Auto) 0.5 % (0.0-2.0) Chemistry Test 05/15/17 05:45 Sodium Level 139 mEQ/L (135-145) Potassium Level 4.5 mEQ/L (3.4-4.9) Chloride Level 102 mEQ/L (98-107) Carbon Dioxide Level 26 mEQ/L (20-30) Anion Gap 11 (5-15) Blood Urea Nitrogen 11 mg/dL (7-23) Creatinine 0.4 mg/dL (0.5-0.9) L Estimat Glomerular Filtration Rate mL/min (>60) Glucose Level 93 mg/dL (74-106) Calcium Level 9.2 mg/dL (8.6-10.2) Studies Pre-op Studies: echo - Septal and apex hypokinesia, EF 30% Risk Assessment & Plan Assessment: Class 3 patient with dementia, HTN, CAD, DM, CVA for JANIE to r/o endocarditis Plan: GA, TIVA Status Change Before Surgery: No Pre-Antibiotics Drug: None KASH NATH M.D. May 15, 2017 14:11
--- NOTE | 2017-05-15 14:12 | Immediate Post-Op Evaluation ---
Immediate Post-Op Evalulation Immediate Post-Op Evalulation Procedure: JANIE Date of Evaluation: May 15, 2017 Time of Evaluation: 14:10 IV Fluids: 250 Blood Pressure Systolic: 137 Blood Pressure Diastolic: 77 Pulse Rate: 84 Respiratory Rate: 20 O2 Sat by Pulse Oximetry: 99 Temperature (Fahrenheit): 97.4 Pain Score (1-10): 0 Nausea: No Vomiting: No Complications No complication Patient Status: awake, patent, none Hydration Status: adequate Drug: None KASH NATH M.D. May 15, 2017 14:12
--- NOTE | 2017-05-15 14:47 | Internal Med Progress Note ---
Subjective Date of Service: May 15, 2017 Physician Name Martinez,Delfin Attending Physician Lobito Jones MD Current Medications Medications (Trade) Dose Ordered Sig/Don Route PRN Reason Start Time Stop Time Status Last Admin Dose Admin Acetaminophen (Tylenol) 650 mg Q4H PRN ORAL T>100.5 05/04/17 21:45 06/03/17 21:44 05/11/17 17:58 Al Hydroxide/Mg Hydroxide (Mylanta II) 30 ml Q6H PRN ORAL dyspepsia 05/04/17 21:45 06/03/17 21:44 Carvedilol (Coreg) 3.125 mg Q12HR ORAL 05/05/17 09:00 06/04/17 08:59 05/14/17 20:48 Chlorhexidine Gluconate (Merari-Hex 2%) 1 applic DAILY TOPIC 05/09/17 09:00 06/08/17 08:59 05/14/17 08:38 Clopidogrel Bisulfate (Plavix) 75 mg DAILY ORAL 05/05/17 09:00 06/04/17 08:59 05/14/17 08:37 Dextrose (Dextrose 50%) STAT PRN IV Hypoglycemia 05/04/17 21:45 06/03/17 21:44 Docusate Sodium (Colace) 100 mg TWICE A DAY ORAL 05/14/17 14:00 06/13/17 13:59 05/14/17 22:28 Heparin Sodium (Porcine) (Heparin 5000 units/ml) 5,000 units EVERY 12 HOURS SUBQ 05/05/17 09:00 06/04/17 08:59 05/14/17 20:49 Insulin Aspart (NovoLOG) BEFORE MEALS AND HS SUBQ 05/05/17 06:30 06/04/17 06:29 05/14/17 20:49 Lactated Ringer's 1,000 ml @ 10 mls/hr Q24H IVLG 05/15/17 14:04 05/15/17 16:03 Losartan Potassium (Cozaar) 25 mg DAILY ORAL 05/06/17 09:00 06/05/17 08:59 05/14/17 08:38 Mirtazapine (Remeron) 15 mg BEDTIME ORAL 05/04/17 23:00 06/03/17 22:59 05/14/17 20:48 Ondansetron HCl (Zofran) 4 mg Q1H PRN IVP Nausea & Vomiting 05/15/17 14:15 05/15/17 20:15 Ondansetron HCl (Zofran) 4 mg Q6H PRN IVP Nausea & Vomiting 05/04/17 21:45 06/03/17 21:44 Polyethylene Glycol (Miralax) 17 gm HSPRN PRN ORAL Constipation 05/04/17 21:45 06/03/17 21:44 05/14/17 20:48 Rifampin (Rifadin) 300 mg EVERY 12 HOURS ORAL 05/08/17 17:00 06/16/17 16:59 05/14/17 20:47 Sertraline HCl (Zoloft) 100 mg DAILY ORAL 05/05/17 09:00 06/04/17 08:59 05/14/17 08:50 Vancomycin HCl (Vanco rx to dose) 1 ea DAILY PRN MISC Per Rx Protocol 05/05/17 15:00 06/04/17 14:59 Vancomycin HCl 500 mg/Dextrose 110 ml @ 110 mls/hr Q12HR@0200,1400 IVPB 05/06/17 02:00 06/16/17 01:59 05/15/17 02:24 Allergies: Coded Allergies: LATEX (Unverified Allergy, Mild, Rash, 09/03/14) QUININE (Unverified Allergy, Unknown, Rash Hives, 05/23/15) Quinine Sulfate ROS Limited/Unobtainable: No Constitutional: Reports: no symptoms HEENT: Reports: no symptoms Cardiovascular: Reports: no symptoms Respiratory: Reports: no symptoms Gastrointestinal/Abdominal: Reports: no symptoms Genitourinary: Reports: no symptoms Neurologic/Psychiatric: Reports: no symptoms Subjective 76 YO F admitted with altered mental status. Now UTI and Sepsis. Cover for Int Med-Dr Jones. Await results of transesophageal echocardiogram to R/O endocarditis Objective Last Vital Signs Date Time Temp Pulse Resp B/P (MAP) Pulse Ox O2 Delivery O2 Flow Rate FiO2 05/15/17 14:38 97.8 80 20 140/80 97 05/15/17 14:10 Room Air 05/15/17 14:05 6.0 Laboratory Tests Test 05/15/17 05:45 White Blood Count 5.5 K/UL (4.8-10.8) Red Blood Count 2.80 M/UL (4.20-5.40) L Hemoglobin 8.4 G/DL (12.0-16.0) L Hematocrit 27.5 % (37.0-47.0) L Mean Corpuscular Volume 98 FL (80-99) Mean Corpuscular Hemoglobin 30.0 PG (27.0-31.0) Mean Corpuscular Hemoglobin Concent 30.5 G/DL (32.0-36.0) L Red Cell Distribution Width 17.1 % (11.6-14.8) H Platelet Count 234 K/UL (150-450) Mean Platelet Volume 6.0 FL (6.5-10.1) L Neutrophils (%) (Auto) 69.5 % (45.0-75.0) Lymphocytes (%) (Auto) 16.8 % (20.0-45.0) L Monocytes (%) (Auto) 11.0 % (1.0-10.0) H Eosinophils (%) (Auto) 2.2 % (0.0-3.0) Basophils (%) (Auto) 0.5 % (0.0-2.0) Sodium Level 139 mEQ/L (135-145) Potassium Level 4.5 mEQ/L (3.4-4.9) Chloride Level 102 mEQ/L (98-107) Carbon Dioxide Level 26 mEQ/L (20-30) Anion Gap 11 (5-15) Blood Urea Nitrogen 11 mg/dL (7-23) Creatinine 0.4 mg/dL (0.5-0.9) L Estimat Glomerular Filtration Rate mL/min (>60) Glucose Level 93 mg/dL (74-106) Calcium Level 9.2 mg/dL (8.6-10.2) Intake and Output 05/15/17 05/16/17 19:00 07:00 Intake Total 0 ml Output Total 550 ml Balance -550 ml Intake Oral 0 ml Output Urine Total 550 ml Objective General Appearance: WD/WN, no apparent distress, alert EENT: PERRL/EOMI, normal ENT inspection Neck: non-tender, normal alignment, supple, normal inspection Cardiovascular: normal peripheral pulses, normal rate, regular rhythm, no gallop/murmur, no JVD Respiratory/Chest: chest wall non-tender, lungs clear, normal breath sounds, no respiratory distress, no accessory muscle use Abdomen: normal bowel sounds, non tender, soft, no organomegaly, no mass Extremities: other - left hemiparesis Neurologic: towerman II-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 See ID note concerning source. Await JANIE results from 05/15/17 to R/O endocarditis. Await repeat blood cultures. Cont vanco for 6 weeks per ID if JANIE positive for endocarditis. S/P PICC placement (4) Diarrhea Assessment & Plan: Resolved. (5) Fracture (6) Severe anemia Assessment & Plan: Worsening. Druze. Cont IV venofer. (7) DVT (deep venous thrombosis) (8) CVA (cerebrovascular accident) (9) CAD (coronary artery disease) Assessment & Plan: see cardiology note. (10) Diabetes mellitus Assessment & Plan: Cont novolog slideng scale (11) CHF (congestive heart failure) (12) UTI (urinary tract infection) Assessment & Plan: E. Coli. Continue ceftriaxone for 7 days per ID (13) Constipation Assessment & Plan: Colace BID Status: stable Assessment/Plan Patient needs transesophageal echo to R/O endocarditis per ID consult X2. If JANIE pos for endocarditis, patient needs 6 weeks IV vanco; if neg can D/C IV vanco after JANIE DELFIN MARTINEZ May 15, 2017 14:47
--- NOTE | 2017-05-15 15:30 | Pulmonology Progress Note ---
Assessment/Plan Problems: (1) UTI (urinary tract infection) (2) Sacral wound (3) AICD (automatic cardioverter/defibrillator) present (4) Sick sinus syndrome (5) Cerebral vascular disease (6) Hypertension (7) Diabetes mellitus (8) Severe anemia Assessment/Plan JANIE is done, no endocarditis seen no new complains check cultures all notes and meds reviewed d/w case management all notes reviewed, Dr. Mclean recommendation appreciated Subjective ROS Limited/Unobtainable: No Interval Events: comfortable, awake Constitutional: Reports: no symptoms Allergies: Coded Allergies: LATEX (Unverified Allergy, Mild, Rash, 09/03/14) QUININE (Unverified Allergy, Unknown, Rash Hives, 05/23/15) Quinine Sulfate Objective Last 24 Hour Vital Signs Date Time Temp Pulse Resp B/P (MAP) Pulse Ox O2 Delivery O2 Flow Rate FiO2 05/15/17 14:38 97.8 80 20 140/80 97 05/15/17 14:30 80 18 141/78 98 05/15/17 14:20 82 20 132/79 96 05/15/17 14:12 84 20 99 05/15/17 14:10 81 16 138/80 97 Room Air 05/15/17 14:05 77 17 119/78 98 Simple Mask 6.0 05/15/17 14:00 97.4 84 20 137/77 99 Simple Mask 6.0 05/15/17 11:34 97.5 74 19 153/79 96 Room Air 05/15/17 09:00 123/75 05/15/17 09:00 76 123/75 05/15/17 08:02 97.2 76 20 123/75 97 Room Air 05/15/17 03:58 98.2 79 20 139/81 100 Room Air 05/14/17 23:38 98.1 77 19 128/72 100 Room Air 05/14/17 20:48 82 130/71 05/14/17 20:40 98.2 82 20 130/71 100 Room Air 05/14/17 16:29 97.5 79 20 126/64 98 Room Air Intake and Output 05/15/17 05/16/17 19:00 07:00 Intake Total 100 ml Output Total 670 ml Balance -570 ml Intake Oral 0 ml IV Total 100 ml Output Urine Total 670 ml General Appearance: WD/WN HEENT: normocephalic, atraumatic Respiratory/Chest: chest wall non-tender, lungs clear Breasts: no masses Cardiovascular: normal peripheral pulses, normal rate Abdomen: normal bowel sounds, soft, non tender Genitourinary: normal external genitalia Laboratory Tests 05/15/17 05:45: White Blood Count 5.5, Red Blood Count 2.80L, Hemoglobin 8.4L, Hematocrit 27.5L , Mean Corpuscular Volume 98, Mean Corpuscular Hemoglobin 30.0, Mean Corpuscular Hemoglobin Concent 30.5L, Red Cell Distribution Width 17.1H, Platelet Count 234, Mean Platelet Volume 6.0L, Neutrophils (%) (Auto) 69.5, Lymphocytes (%) (Auto) 16.8L, Monocytes (%) (Auto) 11.0H, Eosinophils (%) (Auto ) 2.2, Basophils (%) (Auto) 0.5, Sodium Level 139, Potassium Level 4.5, Chloride Level 102, Carbon Dioxide Level 26, Anion Gap 11, Blood Urea Nitrogen 11, Creatinine 0.4L, Estimat Glomerular Filtration Rate , Glucose Level 93, Calcium Level 9.2 Current Medications Medications (Trade) Dose Ordered Sig/Don Route PRN Reason Start Time Stop Time Status Last Admin Dose Admin Acetaminophen (Tylenol) 650 mg Q4H PRN ORAL T>100.5 05/04/17 21:45 06/03/17 21:44 05/11/17 17:58 Al Hydroxide/Mg Hydroxide (Mylanta II) 30 ml Q6H PRN ORAL dyspepsia 05/04/17 21:45 06/03/17 21:44 Carvedilol (Coreg) 3.125 mg Q12HR ORAL 05/05/17 09:00 06/04/17 08:59 05/14/17 20:48 Chlorhexidine Gluconate (Merari-Hex 2%) 1 applic DAILY TOPIC 05/09/17 09:00 06/08/17 08:59 05/14/17 08:38 Clopidogrel Bisulfate (Plavix) 75 mg DAILY ORAL 05/05/17 09:00 06/04/17 08:59 05/14/17 08:37 Dextrose (Dextrose 50%) STAT PRN IV Hypoglycemia 05/04/17 21:45 06/03/17 21:44 Docusate Sodium (Colace) 100 mg TWICE A DAY ORAL 05/14/17 14:00 06/13/17 13:59 05/14/17 22:28 Heparin Sodium (Porcine) (Heparin 5000 units/ml) 5,000 units EVERY 12 HOURS SUBQ 05/05/17 09:00 06/04/17 08:59 05/14/17 20:49 Insulin Aspart (NovoLOG) BEFORE MEALS AND HS SUBQ 05/05/17 06:30 06/04/17 06:29 05/14/17 20:49 Lactated Ringer's 1,000 ml @ 10 mls/hr Q24H IVLG 05/15/17 14:04 05/15/17 16:03 Losartan Potassium (Cozaar) 25 mg DAILY ORAL 05/06/17 09:00 06/05/17 08:59 05/14/17 08:38 Mirtazapine (Remeron) 15 mg BEDTIME ORAL 05/04/17 23:00 06/03/17 22:59 05/14/17 20:48 Ondansetron HCl (Zofran) 4 mg Q1H PRN IVP Nausea & Vomiting 05/15/17 14:15 05/15/17 20:15 Ondansetron HCl (Zofran) 4 mg Q6H PRN IVP Nausea & Vomiting 05/04/17 21:45 06/03/17 21:44 Polyethylene Glycol (Miralax) 17 gm HSPRN PRN ORAL Constipation 05/04/17 21:45 06/03/17 21:44 05/14/17 20:48 Rifampin (Rifadin) 300 mg EVERY 12 HOURS ORAL 05/08/17 17:00 06/16/17 16:59 05/14/17 20:47 Sertraline HCl (Zoloft) 100 mg DAILY ORAL 05/05/17 09:00 06/04/17 08:59 05/14/17 08:50 Vancomycin HCl (Vanco rx to dose) 1 ea DAILY PRN MISC Per Rx Protocol 05/05/17 15:00 06/04/17 14:59 Vancomycin HCl 500 mg/Dextrose 110 ml @ 110 mls/hr Q12HR@0200,1400 IVPB 05/06/17 02:00 06/16/17 01:59 05/15/17 02:24 MARLENY TURPIN May 15, 2017 15:30
[2017-05-15] MEDS: Dyna-Hex 2% Top Sol 8oz TOPIC SCH (16:25)
--- NOTE | 2017-05-15 17:02 | Infectious Diseases Prog Note ---
Assessment/Plan Assessment/Plan Infectious Diseases ASSESSMENT: E coli/klebsiella UTI, s/p treatment (05/13 s/p ceftriaxone D#8) Staphylococcus epidermidis bacteremia that doesn't meet clinical criteria for IE (satisfies only 1-2 minor modified Medley criteria; would need 2 major, 1 major + 3 minor, or 5 minor) Her JANIE today was good quality study that was negative for endovalvular lesions/vegetation and negative for vegetation on ICD lead. no clinical evidence of pocket site infection micro lab confirmed all isolates from 05/04 blood cx were Staph epidermidis. not Staph lugdunensis. no clinical evidence of ICD pocket infection RF negative (10.6 IU/mL) ESR 5mm/hr and CRP <0.3mg/dL reassuring repeat U/A w/o active sediment. no evidence of glomerulonephritis CTA head with old ischemic disease. no concern for mycotic aneurysm. CXR does not suggest SPE no vascular phenomena identified (arterial emboli, SPE, mycotic aneurysm , intracranial bleed, conjunctival hemorrhages, Janeway lesions) no immunologic phenomena (GN, osler nodes, Jacobsen spots, RF) surveillance blood cx (05/08) neg h/o CoNS bacteremia in Stage III sacral decubitus ulcer, not grossly infected Afebrile w/o leukocytosis normal rifampin associated urinary discoloration LFTs normal on rifampin (05/12) Iron def anemia ischemic cardiomyopathy s/p AICD h/o DVT s/p IVC filter b/l TKR h/o carotid stent h/o Cervical and Lumbar spinal fusions PLAN: --JANIE negative for IE or lead infection. -->d/c IV vancomycin and PO rifampin now --okay for discharge from ID perspective. --patient counseled to report for medical care immediately should she develops fevers, chills, altered mental status, or rash. all questions answered. covering for Dr. Bustillos. Please call me for questions. Subjective ROS Limited/Unobtainable: Yes Allergies: Coded Allergies: LATEX (Unverified Allergy, Mild, Rash, 09/03/14) QUININE (Unverified Allergy, Unknown, Rash Hives, 05/23/15) Quinine Sulfate Objective Vital Signs Last 24 Hour Vital Signs Date Time Temp Pulse Resp B/P (MAP) Pulse Ox O2 Delivery O2 Flow Rate FiO2 05/15/17 15:54 97.6 75 19 152/82 96 Room Air 05/15/17 14:38 97.8 80 20 140/80 97 05/15/17 14:30 80 18 141/78 98 05/15/17 14:20 82 20 132/79 96 05/15/17 14:12 84 20 99 05/15/17 14:10 81 16 138/80 97 Room Air 05/15/17 14:05 77 17 119/78 98 Simple Mask 6.0 05/15/17 14:00 97.4 84 20 137/77 99 Simple Mask 6.0 05/15/17 11:34 97.5 74 19 153/79 96 Room Air 05/15/17 09:00 123/75 05/15/17 09:00 76 123/75 05/15/17 08:02 97.2 76 20 123/75 97 Room Air 05/15/17 03:58 98.2 79 20 139/81 100 Room Air 05/14/17 23:38 98.1 77 19 128/72 100 Room Air 05/14/17 20:48 82 130/71 05/14/17 20:40 98.2 82 20 130/71 100 Room Air Height (Feet): 5 Height (Inches): 4.00 Weight (Pounds): 130 Objective VITAL SIGNS: Afebrile since admission. vitals reviewed. not on supplemental oxygen. GEN: awake, alert, non toxic appearing HEENT: pink conjunctiva, no conjunctival hemorrhages. oral mucosa dry, pharynx w/o exudate or effusion. No icterus. Head normocephalic, neck supple. no mucosal petechiae. undilated eye exam negative for Jacobsen spots. EOMI. NECK: No cervical LAD CHEST: Clear to auscultation bilaterally. HEART: S1 and S2, 2/6 GRISEL, no rubs. ABDOMEN: soft, non tender, non distended, normoactive bowel sounds. old healed scars. no cellulitis. no HSM. EXTREMITIES: No cyanosis, no clubbing, no edema. no osler nodes, no janeway lesions, no splinter hemorrhages, no petechiae. b/l knee scars, well healed, no effusion, no erythema, no warmth. picc line c/d/i. NEUROLOGIC: Awake, alert, LUE/LLE 1/5 strength. 3+ L patellar reflex. no response on babinski. no clonus. RUE strength preserved w/ some mild dysdiadochokinesia. : tolliver in place draining orange (rifampin strained) urine skin: mild xerosis. b/l onychomycosis. no petechiae, no purpura. LYMPH: no LAD RECTAL: deferred Laboratory Tests Test 05/15/17 05:45 White Blood Count 5.5 K/UL (4.8-10.8) Red Blood Count 2.80 M/UL (4.20-5.40) L Hemoglobin 8.4 G/DL (12.0-16.0) L Hematocrit 27.5 % (37.0-47.0) L Mean Corpuscular Volume 98 FL (80-99) Mean Corpuscular Hemoglobin 30.0 PG (27.0-31.0) Mean Corpuscular Hemoglobin Concent 30.5 G/DL (32.0-36.0) L Red Cell Distribution Width 17.1 % (11.6-14.8) H Platelet Count 234 K/UL (150-450) Mean Platelet Volume 6.0 FL (6.5-10.1) L Neutrophils (%) (Auto) 69.5 % (45.0-75.0) Lymphocytes (%) (Auto) 16.8 % (20.0-45.0) L Monocytes (%) (Auto) 11.0 % (1.0-10.0) H Eosinophils (%) (Auto) 2.2 % (0.0-3.0) Basophils (%) (Auto) 0.5 % (0.0-2.0) Sodium Level 139 mEQ/L (135-145) Potassium Level 4.5 mEQ/L (3.4-4.9) Chloride Level 102 mEQ/L (98-107) Carbon Dioxide Level 26 mEQ/L (20-30) Anion Gap 11 (5-15) Blood Urea Nitrogen 11 mg/dL (7-23) Creatinine 0.4 mg/dL (0.5-0.9) L Estimat Glomerular Filtration Rate mL/min (>60) Glucose Level 93 mg/dL (74-106) Calcium Level 9.2 mg/dL (8.6-10.2) Current Medications Medications (Trade) Dose Ordered Sig/Don Route PRN Reason Start Time Stop Time Status Last Admin Dose Admin Acetaminophen (Tylenol) 650 mg Q4H PRN ORAL T>100.5 05/04/17 21:45 06/03/17 21:44 05/11/17 17:58 Al Hydroxide/Mg Hydroxide (Mylanta II) 30 ml Q6H PRN ORAL dyspepsia 05/04/17 21:45 06/03/17 21:44 Carvedilol (Coreg) 3.125 mg Q12HR ORAL 05/05/17 09:00 06/04/17 08:59 05/14/17 20:48 Chlorhexidine Gluconate (Merari-Hex 2%) 1 applic DAILY TOPIC 05/09/17 09:00 06/08/17 08:59 05/15/17 16:25 Clopidogrel Bisulfate (Plavix) 75 mg DAILY ORAL 05/05/17 09:00 06/04/17 08:59 05/14/17 08:37 Dextrose (Dextrose 50%) STAT PRN IV Hypoglycemia 05/04/17 21:45 06/03/17 21:44 Docusate Sodium (Colace) 100 mg TWICE A DAY ORAL 05/14/17 14:00 06/13/17 13:59 05/14/17 22:28 Heparin Sodium (Porcine) (Heparin 5000 units/ml) 5,000 units EVERY 12 HOURS SUBQ 05/05/17 09:00 06/04/17 08:59 05/14/17 20:49 Insulin Aspart (NovoLOG) BEFORE MEALS AND HS SUBQ 05/05/17 06:30 06/04/17 06:29 05/14/17 20:49 Losartan Potassium (Cozaar) 25 mg DAILY ORAL 05/06/17 09:00 06/05/17 08:59 05/14/17 08:38 Mirtazapine (Remeron) 15 mg BEDTIME ORAL 05/04/17 23:00 06/03/17 22:59 05/14/17 20:48 Ondansetron HCl (Zofran) 4 mg Q1H PRN IVP Nausea & Vomiting 05/15/17 14:15 05/15/17 20:15 Ondansetron HCl (Zofran) 4 mg Q6H PRN IVP Nausea & Vomiting 05/04/17 21:45 06/03/17 21:44 Polyethylene Glycol (Miralax) 17 gm HSPRN PRN ORAL Constipation 05/04/17 21:45 06/03/17 21:44 05/14/17 20:48 Rifampin (Rifadin) 300 mg EVERY 12 HOURS ORAL 05/08/17 17:00 06/16/17 16:59 05/14/17 20:47 Sertraline HCl (Zoloft) 100 mg DAILY ORAL 05/05/17 09:00 06/04/17 08:59 05/14/17 08:50 Vancomycin HCl (Vanco rx to dose) 1 ea DAILY PRN MISC Per Rx Protocol 05/05/17 15:00 06/04/17 14:59 Vancomycin HCl 500 mg/Dextrose 110 ml @ 110 mls/hr Q12HR@0200,1400 IVPB 05/06/17 02:00 06/16/17 01:59 05/15/17 16:26 Joshua Mclean M.D. May 15, 2017 17:02
--- NOTE | 2017-05-15 17:24 | Cardiac Electrophysiology PN ---
Assessment/Plan Assessment/Plan 1. Status post [employer] dual-chamber defibrillator implantation with Nl Fx with 11 years battery remaining. No clinical sign of local ICD infection. JANIE negative for lead vegetaions 2. Ischemic cardiomyopathy with EF 30-35 . Continue Coreg and Cozaar 3. Coag negative staph sepsis. Blood Cx positive three bottles, source ? suspect sacral wound. No clinical infection of ICD. TTE no vegetation. JANIE by Dr. Luz also showed no vegetations. 4.Coronary artery disease, prior stent placed in 2013.No chest pain. 5. Carotid stenosis, status post right carotid stent placement. 6. History of gastrointestinal bleed, esophageal cancer noted in 2013. 7. Anemia. 8. Cerebrovascular accident with left hemiplegia. DW RN Subjective Subjective Had JANIE by Dr Brantley that showed no evidence of endocarditis or ICD lead infection . No chest pain or SOB. RN at bedside. Objective Last 24 Hour Vital Signs Date Time Temp Pulse Resp B/P (MAP) Pulse Ox O2 Delivery O2 Flow Rate FiO2 05/15/17 15:54 97.6 75 19 152/82 96 Room Air 05/15/17 14:38 97.8 80 20 140/80 97 05/15/17 14:30 80 18 141/78 98 05/15/17 14:20 82 20 132/79 96 05/15/17 14:12 84 20 99 05/15/17 14:10 81 16 138/80 97 Room Air 05/15/17 14:05 77 17 119/78 98 Simple Mask 6.0 05/15/17 14:00 97.4 84 20 137/77 99 Simple Mask 6.0 05/15/17 11:34 97.5 74 19 153/79 96 Room Air 05/15/17 09:00 123/75 05/15/17 09:00 76 123/75 05/15/17 08:02 97.2 76 20 123/75 97 Room Air 05/15/17 03:58 98.2 79 20 139/81 100 Room Air 05/14/17 23:38 98.1 77 19 128/72 100 Room Air 05/14/17 20:48 82 130/71 05/14/17 20:40 98.2 82 20 130/71 100 Room Air Intake and Output 05/15/17 05/16/17 19:00 07:00 Intake Total 100 ml Output Total 670 ml Balance -570 ml Intake Oral 0 ml IV Total 100 ml Output Urine Total 670 ml Laboratory Tests Test 05/15/17 05:45 White Blood Count 5.5 K/UL (4.8-10.8) Red Blood Count 2.80 M/UL (4.20-5.40) L Hemoglobin 8.4 G/DL (12.0-16.0) L Hematocrit 27.5 % (37.0-47.0) L Mean Corpuscular Volume 98 FL (80-99) Mean Corpuscular Hemoglobin 30.0 PG (27.0-31.0) Mean Corpuscular Hemoglobin Concent 30.5 G/DL (32.0-36.0) L Red Cell Distribution Width 17.1 % (11.6-14.8) H Platelet Count 234 K/UL (150-450) Mean Platelet Volume 6.0 FL (6.5-10.1) L Neutrophils (%) (Auto) 69.5 % (45.0-75.0) Lymphocytes (%) (Auto) 16.8 % (20.0-45.0) L Monocytes (%) (Auto) 11.0 % (1.0-10.0) H Eosinophils (%) (Auto) 2.2 % (0.0-3.0) Basophils (%) (Auto) 0.5 % (0.0-2.0) Sodium Level 139 mEQ/L (135-145) Potassium Level 4.5 mEQ/L (3.4-4.9) Chloride Level 102 mEQ/L (98-107) Carbon Dioxide Level 26 mEQ/L (20-30) Anion Gap 11 (5-15) Blood Urea Nitrogen 11 mg/dL (7-23) Creatinine 0.4 mg/dL (0.5-0.9) L Estimat Glomerular Filtration Rate mL/min (>60) Glucose Level 93 mg/dL (74-106) Calcium Level 9.2 mg/dL (8.6-10.2) Objective HEENT: No JVD Cardiovascular: RRR. No murmur. ICD left chest intact. Respiratory/Chest: lungs clear Abdomen: soft, no organomegaly, no mass Extremities: left hemiparesis MARICRUZ DURON May 15, 2017 17:24
--- NOTE | 2017-05-15 18:01 | Infectious Diseases Prog Note ---
Assessment/Plan Problems: (1) UTI (urinary tract infection) Assessment & Plan: due to Klebsiella pneumonia and E coli , S/P ceftriaxon for 7 days (2) Sepsis Assessment & Plan: due to coag negative staph , source most likely sacral wound , transthoracic echo didn't show vegetations, but not the ideal test to rule out [place] valve endocarditis or AICD leads endocarditis . JANIE was not able to show the tricuspid valve completely so we can't rule out vegetations on the tricuspid valve, and negative results at this stage dosen;t rule out endocarditis completely . doing JANIE at this late stage after being on IV antibiotics for more than 10 days will have low yield, and negative result should not change the duration of treatment, since small vegetations might have dislodged by now after being on vancomycin and rifampin for 10 days , it will only put the patient at high risk for complications from the procedure , so I would continue rifampin with vancomycin for 6 weeks total to cover for coage negative staph bacteremia and possible endocarditis. pharmacy to monitor trough and adjust dose as needed to keep between 15-20. repeated blood culture to confirm clearance is negative on 05/08 . EOT 06/19/17. RECOMMEND : 1.weekly labs: CBC, CMP while on antibiotics 2.biweekly vancomycin trough at least to keep between 15-20 3.repeat blood culture two sets at least after done with iv antibiotics treatment . 4.continue vancomycin and rifampin for 6 weeks total as recommended initially . (3) Cerebral vascular disease Assessment & Plan: old, stable. continue off loading as needed (4) Sacral wound Assessment & Plan: not infected, continue off loading and local care (5) Diabetes mellitus Assessment & Plan: recommend tight glycemic control to keep blood glucose between 80-120 Subjective ROS Limited/Unobtainable: Yes Constitutional: Reports: no symptoms HEENT: Reports: no symptoms Respiratory: Reports: no symptoms Breasts: Reports: no symptoms Cardiovascular: Reports: no symptoms Gastrointestinal/Abdominal: Reports: no symptoms Genitourinary: Reports: no symptoms Neurologic: Reports: weakness, confusion Psychiatric: Reports: no symptoms Skin: Reports: no symptoms Endocrine: Reports: no symptoms Hematologic: Reports: no symptoms Allergies: Coded Allergies: LATEX (Unverified Allergy, Mild, Rash, 09/03/14) QUININE (Unverified Allergy, Unknown, Rash Hives, 9/13/15) Quinine Sulfate Subjective she was awake and alert, up in bed, follows commands , no fever or chills, no diarrhea . Objective Vital Signs Last 24 Hour Vital Signs Date Time Temp Pulse Resp B/P (MAP) Pulse Ox O2 Delivery O2 Flow Rate FiO2 05/15/17 15:54 97.6 75 19 152/82 96 Room Air 05/15/17 14:38 97.8 80 20 140/80 97 05/15/17 14:30 80 18 141/78 98 05/15/17 14:20 82 20 132/79 96 05/15/17 14:12 84 20 99 05/15/17 14:10 81 16 138/80 97 Room Air 05/15/17 14:05 77 17 119/78 98 Simple Mask 6.0 05/15/17 14:00 97.4 84 20 137/77 99 Simple Mask 6.0 05/15/17 11:34 97.5 74 19 153/79 96 Room Air 05/15/17 09:00 123/75 05/15/17 09:00 76 123/75 05/15/17 08:02 97.2 76 20 123/75 97 Room Air 05/15/17 03:58 98.2 79 20 139/81 100 Room Air 05/14/17 23:38 98.1 77 19 128/72 100 Room Air 05/14/17 20:48 82 130/71 05/14/17 20:40 98.2 82 20 130/71 100 Room Air Height (Feet): 5 Height (Inches): 4.00 Weight (Pounds): 130 General Appearance: WD/WN, no acute distress HEENT: normocephalic, atraumatic, anicteric, mucous membranes moist, pharynx normal, supple, no JVD Respiratory/Chest: lungs clear, normal breath sounds, no respiratory distress, no accessory muscle use Cardiovascular: normal peripheral pulses, normal rate, regular rhythm, no gallop/murmur, no JVD Abdomen: normal bowel sounds, soft, non tender, no organomegaly, non distended , no mass, no scars Extremities: no cyanosis, no clubbing Skin: no rash, no lesions, no ulcers Neurologic/Psychiatric: alert, responsive Laboratory Tests Test 05/15/17 05:45 White Blood Count 5.5 K/UL (4.8-10.8) Red Blood Count 2.80 M/UL (4.20-5.40) L Hemoglobin 8.4 G/DL (12.0-16.0) L Hematocrit 27.5 % (37.0-47.0) L Mean Corpuscular Volume 98 FL (80-99) Mean Corpuscular Hemoglobin 30.0 PG (27.0-31.0) Mean Corpuscular Hemoglobin Concent 30.5 G/DL (32.0-36.0) L Red Cell Distribution Width 17.1 % (11.6-14.8) H Platelet Count 234 K/UL (150-450) Mean Platelet Volume 6.0 FL (6.5-10.1) L Neutrophils (%) (Auto) 69.5 % (45.0-75.0) Lymphocytes (%) (Auto) 16.8 % (20.0-45.0) L Monocytes (%) (Auto) 11.0 % (1.0-10.0) H Eosinophils (%) (Auto) 2.2 % (0.0-3.0) Basophils (%) (Auto) 0.5 % (0.0-2.0) Sodium Level 139 mEQ/L (135-145) Potassium Level 4.5 mEQ/L (3.4-4.9) Chloride Level 102 mEQ/L (98-107) Carbon Dioxide Level 26 mEQ/L (20-30) Anion Gap 11 (5-15) Blood Urea Nitrogen 11 mg/dL (7-23) Creatinine 0.4 mg/dL (0.5-0.9) L Estimat Glomerular Filtration Rate mL/min (>60) Glucose Level 93 mg/dL (74-106) Calcium Level 9.2 mg/dL (8.6-10.2) Current Medications Medications (Trade) Dose Ordered Sig/Don Route PRN Reason Start Time Stop Time Status Last Admin Dose Admin Acetaminophen (Tylenol) 650 mg Q4H PRN ORAL T>100.5 05/04/17 21:45 06/03/17 21:44 05/11/17 17:58 Al Hydroxide/Mg Hydroxide (Mylanta II) 30 ml Q6H PRN ORAL dyspepsia 05/04/17 21:45 06/03/17 21:44 Carvedilol (Coreg) 3.125 mg Q12HR ORAL 05/05/17 09:00 06/04/17 08:59 05/14/17 20:48 Chlorhexidine Gluconate (Merari-Hex 2%) 1 applic DAILY TOPIC 05/09/17 09:00 06/08/17 08:59 05/15/17 16:25 Clopidogrel Bisulfate (Plavix) 75 mg DAILY ORAL 05/05/17 09:00 06/04/17 08:59 05/14/17 08:37 Dextrose (Dextrose 50%) STAT PRN IV Hypoglycemia 05/04/17 21:45 06/03/17 21:44 Docusate Sodium (Colace) 100 mg TWICE A DAY ORAL 05/14/17 14:00 06/13/17 13:59 05/15/17 17:23 Heparin Sodium (Porcine) (Heparin 5000 units/ml) 5,000 units EVERY 12 HOURS SUBQ 05/05/17 09:00 06/04/17 08:59 05/14/17 20:49 Insulin Aspart (NovoLOG) BEFORE MEALS AND HS SUBQ 05/05/17 06:30 06/04/17 06:29 05/14/17 20:49 Losartan Potassium (Cozaar) 25 mg DAILY ORAL 05/06/17 09:00 06/05/17 08:59 05/14/17 08:38 Mirtazapine (Remeron) 15 mg BEDTIME ORAL 05/04/17 23:00 06/03/17 22:59 05/14/17 20:48 Ondansetron HCl (Zofran) 4 mg Q1H PRN IVP Nausea & Vomiting 05/15/17 14:15 05/15/17 20:15 Ondansetron HCl (Zofran) 4 mg Q6H PRN IVP Nausea & Vomiting 05/04/17 21:45 06/03/17 21:44 Polyethylene Glycol (Miralax) 17 gm HSPRN PRN ORAL Constipation 05/04/17 21:45 06/03/17 21:44 05/14/17 20:48 Sertraline HCl (Zoloft) 100 mg DAILY ORAL 05/05/17 09:00 06/04/17 08:59 05/14/17 08:50 Annie Lilly M.D. May 15, 2017 18:01
[2017-05-15] MEDS: Miralax 17gm pkt ORAL PRN (20:53)
[2017-05-16] VITALS: BP 140/72
[2017-05-16] MEDS: Vancomycin 500mg/D5W 110ml IVPB SCH ×2 (02:05)
[2017-05-16 04:00] VITALS: BP 149/78
[2017-05-16] MEDS: NovoLOG Insulin Flexpen SUBQ SCH ×2 (06:10→11:30)
[2017-05-16 07:10] LABS: BASOPHILS % (AUTO) 0.9 % (0.0-2.0); EOSINOPHILS % (AUTO) 2.1 % (0.0-3.0); LYMPHOCYTES % (AUTO) 15.4 % (20.0-45.0); MEAN CORPUSCULAR HEMOGLOBIN 30.3 PG (27.0-31.0); MEAN CORPUSCULAR HGB CONC 30.5 G/DL (32.0-36.0); MEAN CORPUSCULAR VOLUME 99 FL (80-99); MEAN PLATELET VOLUME 5.8 FL (6.5-10.1); MONOCYTES % (AUTO) 12.1 % (1.0-10.0); NEUTROPHILS % (AUTO) 69.4 % (45.0-75.0); PLATELET COUNT 237 K/UL (150-450); RED BLOOD COUNT 2.69 M/UL (4.20-5.40); RED CELL DISTRIBUTION WIDTH 17.8 % (11.6-14.8); WHITE BLOOD COUNT 4.5 K/UL (4.8-10.8)
[2017-05-16 07:14] LABS: ANION GAP 8 (5-15); CALCIUM 9.2 mg/dL (8.6-10.2); CARBON DIOXIDE 28 mEQ/L (20-30); CHLORIDE 103 mEQ/L (98-107); CREATININE 0.5 mg/dL (0.5-0.9); HEMOLYSIS 3; POTASSIUM 4.7 mEQ/L (3.4-4.9); SODIUM 139 mEQ/L (135-145)
[2017-05-16 08:24] VITALS: BP 130/88
--- NOTE | 2017-05-16 09:27 | Wound Care Consultation ---
Wound Assessment Wound Assessment : Wound Number: 1 Wound Present on Admission: Yes New Wound: No Status Change of Wound: No Wound Location Body Site: sacral Wound Type: pressure ulcer [place] Test: Does not [place] Pressure Ulcer Stage: III - patient has a history of unstageable wound to this site. Wound Thickness: Full Thickness Wound Length: 3.5 Wound Width: 3.5 Wound Depth: 0.3 Percent of Wound [place]/Red: 90 Percent of Wound Purple/Maroon: 10 - maroon color remains present to surrounding skin Other Colors Identified: surrounding skin to sacral noted with scattered fullthickness scar tissue Wound Drainage Description: Serosanguineous Wound Drainage Amount: Moderate Wound Drainage Odor: None/Absent Tissue Surrounding Wound: Macerated Wound General Appearance: Reddened - maroon, Draining Wound Comment #1 Sacral pressure ulcer stage III.- site remains as stage 3 , maroon color remains present to surrounding wound site,and scar tissue .- no further deterioration present. #2 upper posterior back hyperpigmented scar tissue. - intact Recommendation. -Local wound care as ordered. -Low air loss SPR mattress for wound and skin management. -Turn and reposition. -Optimize nutrition. -Keep clean and dry. -Heel protectors. -Offload sacral site. -Offload heels and feet. -Avoid shear and friction. -Assess and follow up with MD for any changes of condition noted to skin. SAMANTHA KIM May 16, 2017 09:27
[2017-05-16] MEDS: Sertraline 100mg tab ORAL SCH (09:30)
[2017-05-16] MEDS: Docusate 100mg cap ORAL SCH (09:31)
[2017-05-16] MEDS: Losartan 25mg tab ORAL SCH (09:31)
[2017-05-16] MEDS: Dyna-Hex 2% Top Sol 8oz TOPIC SCH (09:32)
[2017-05-16] MEDS: Heparin 5000 units/ml inj SUBQ SCH (09:33)
[2017-05-16] MEDS ORDERED: LR 1000ml ONE (10:35)
[2017-05-16] MEDS ORDERED: Propofol 10mg/ml 20ml IV ONE (10:35)
[2017-05-16] MEDS ORDERED: Labetalol 5mg/ml 20ml vial IV ONE (10:35)
[2017-05-16] MEDS ORDERED: Vancomycin 500mg/D5W 110ml IVPB SCH ×2 (12:00)
[2017-05-16 12:33] VITALS: BP 133/83
--- NOTE | 2017-05-16 12:43 | Internal Med Progress Note ---
Subjective Date of Service: May 16, 2017 Physician Name Martinez,Delfin Attending Physician Lobito Jones MD Current Medications Medications (Trade) Dose Ordered Sig/Don Route PRN Reason Start Time Stop Time Status Last Admin Dose Admin Acetaminophen (Tylenol) 650 mg Q4H PRN ORAL T>100.5 05/04/17 21:45 06/03/17 21:44 05/11/17 17:58 Al Hydroxide/Mg Hydroxide (Mylanta II) 30 ml Q6H PRN ORAL dyspepsia 05/04/17 21:45 06/03/17 21:44 Carvedilol (Coreg) 3.125 mg Q12HR ORAL 05/05/17 09:00 06/04/17 08:59 05/16/17 09:30 Chlorhexidine Gluconate (Merari-Hex 2%) 1 applic DAILY TOPIC 05/09/17 09:00 06/08/17 08:59 05/16/17 09:32 Clopidogrel Bisulfate (Plavix) 75 mg DAILY ORAL 05/05/17 09:00 06/04/17 08:59 05/16/17 09:30 Dextrose (Dextrose 50%) STAT PRN IV Hypoglycemia 05/04/17 21:45 06/03/17 21:44 Docusate Sodium (Colace) 100 mg TWICE A DAY ORAL 05/14/17 14:00 06/13/17 13:59 05/16/17 09:31 Heparin Sodium (Porcine) (Heparin 5000 units/ml) 5,000 units EVERY 12 HOURS SUBQ 05/05/17 09:00 06/04/17 08:59 05/16/17 09:33 Insulin Aspart (NovoLOG) BEFORE MEALS AND HS SUBQ 05/05/17 06:30 06/04/17 06:29 05/15/17 20:49 Losartan Potassium (Cozaar) 25 mg DAILY ORAL 05/06/17 09:00 06/05/17 08:59 05/16/17 09:31 Mirtazapine (Remeron) 15 mg BEDTIME ORAL 05/04/17 23:00 06/03/17 22:59 05/15/17 20:48 Ondansetron HCl (Zofran) 4 mg Q6H PRN IVP Nausea & Vomiting 05/04/17 21:45 06/03/17 21:44 Polyethylene Glycol (Miralax) 17 gm HSPRN PRN ORAL Constipation 05/04/17 21:45 06/03/17 21:44 05/15/17 20:53 Rifampin (Rifadin) 300 mg EVERY 12 HOURS ORAL 05/15/17 21:00 06/19/17 23:59 05/16/17 09:32 Sertraline HCl (Zoloft) 100 mg DAILY ORAL 05/05/17 09:00 06/04/17 08:59 05/16/17 09:30 Vancomycin HCl (Vanco rx to dose) 1 ea DAILY PRN MISC Per rx protocol 05/15/17 18:15 06/19/17 23:59 Vancomycin HCl 500 mg/Dextrose 110 ml @ 110 mls/hr Q12H IVPB 05/16/17 12:00 05/21/17 11:59 05/16/17 12:33 Allergies: Coded Allergies: LATEX (Unverified Allergy, Mild, Rash, 09/03/14) QUININE (Unverified Allergy, Unknown, Rash Hives, 05/23/15) Quinine Sulfate ROS Limited/Unobtainable: No Constitutional: Reports: no symptoms HEENT: Reports: no symptoms Cardiovascular: Reports: no symptoms Respiratory: Reports: no symptoms Gastrointestinal/Abdominal: Reports: no symptoms Genitourinary: Reports: no symptoms Neurologic/Psychiatric: Reports: no symptoms Subjective 76 YO F admitted with altered mental status. Now UTI and Sepsis. Cover for Int Med-Dr Jones. Await results of transesophageal echocardiogram to R/O endocarditis Objective Last Vital Signs Date Time Temp Pulse Resp B/P (MAP) Pulse Ox O2 Delivery O2 Flow Rate FiO2 05/16/17 12:33 97.6 76 19 133/83 98 Room Air 05/16/17 00:00 2.0 Laboratory Tests Test 05/16/17 04:00 White Blood Count 4.5 K/UL (4.8-10.8) L Red Blood Count 2.69 M/UL (4.20-5.40) L Hemoglobin 8.1 G/DL (12.0-16.0) L Hematocrit 26.6 % (37.0-47.0) L Mean Corpuscular Volume 99 FL (80-99) Mean Corpuscular Hemoglobin 30.3 PG (27.0-31.0) Mean Corpuscular Hemoglobin Concent 30.5 G/DL (32.0-36.0) L Red Cell Distribution Width 17.8 % (11.6-14.8) H Platelet Count 237 K/UL (150-450) Mean Platelet Volume 5.8 FL (6.5-10.1) L Neutrophils (%) (Auto) 69.4 % (45.0-75.0) Lymphocytes (%) (Auto) 15.4 % (20.0-45.0) L Monocytes (%) (Auto) 12.1 % (1.0-10.0) H Eosinophils (%) (Auto) 2.1 % (0.0-3.0) Basophils (%) (Auto) 0.9 % (0.0-2.0) Sodium Level 139 mEQ/L (135-145) Potassium Level 4.7 mEQ/L (3.4-4.9) Chloride Level 103 mEQ/L (98-107) Carbon Dioxide Level 28 mEQ/L (20-30) Anion Gap 8 (5-15) Blood Urea Nitrogen 12 mg/dL (7-23) Creatinine 0.5 mg/dL (0.5-0.9) Estimat Glomerular Filtration Rate mL/min (>60) Glucose Level 94 mg/dL (74-106) Calcium Level 9.2 mg/dL (8.6-10.2) Objective General Appearance: WD/WN, no apparent distress, alert EENT: PERRL/EOMI, normal ENT inspection Neck: non-tender, normal alignment, supple, normal inspection Cardiovascular: normal peripheral pulses, normal rate, regular rhythm, no gallop/murmur, no JVD Respiratory/Chest: chest wall non-tender, lungs clear, normal breath sounds, no respiratory distress, no accessory muscle use Abdomen: normal bowel sounds, non tender, soft, no organomegaly, no mass Extremities: other - left hemiparesis 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 See ID note concerning source. Await JANIE results from 05/15/17 to R/O endocarditis. Await repeat blood cultures. Cont vanco for 6 weeks per ID if JANIE positive for endocarditis. S/P PICC placement (4) Diarrhea Assessment & Plan: Resolved. (5) Fracture (6) Severe anemia Assessment & Plan: Worsening. Taoist. Cont IV venofer. (7) DVT (deep venous thrombosis) (8) CVA (cerebrovascular accident) (9) CAD (coronary artery disease) Assessment & Plan: see cardiology note. (10) Diabetes mellitus Assessment & Plan: Cont novolog slideng scale (11) CHF (congestive heart failure) (12) UTI (urinary tract infection) Assessment & Plan: E. Coli. Continue ceftriaxone for 7 days per ID (13) Constipation Assessment & Plan: Colace BID Assessment/Plan Patient needs transesophageal echo to R/O endocarditis per ID consult X2. If JANIE pos for endocarditis, patient needs 6 weeks IV vanco; if neg can D/C IV vanco after JANIE. Discharge home with home health when results of JANIE avaliable. DELFIN MARTINEZ May 16, 2017 12:43
[2017-05-16] MEDS ORDERED: VANCOMYCIN1 GM/2502 IVPB (13:22)
[2017-05-16] MEDS ORDERED: RIFADIN150 MG ORAL (13:28)
[2017-05-16] MEDS ORDERED: VANCO 1 GR1 GM/250 M IV (13:29)
--- NOTE | 2017-05-16 15:14 | Infectious Diseases Prog Note ---
Assessment/Plan Problems: (1) Sepsis Assessment & Plan: due to coag negative staph , source most likely sacral wound , transthoracic echo didn't show vegetations, JANIE was not able to show the tricuspid valve completely so we can't rule out vegetations on the tricuspid valve, and negative results at this stage of treatment dose not rule out endocarditis completely . doing JANIE at this late stage after being on IV antibiotics for more than 10 days will have low yield, and negative result should not change the duration of treatment, since small vegetations might have dislodged by now after being on vancomycin and rifampin for more than 10 days , so I recommend to continue rifampin with vancomycin for 6 weeks total to cover for coage negative staph bacteremia and possible endocarditis since endocarditis can't be ruled out completely . pharmacy to monitor trough and adjust dose as needed to keep between 15-20. repeated blood culture to confirm clearance is negative on 05/08 . EOT 06/19/17. RECOMMEND : 1.weekly labs: CBC, CMP while on antibiotics 2.biweekly vancomycin trough at least to keep between 15-20 3.repeat blood culture two sets at least after done with iv antibiotics treatment . 4.continue vancomycin and rifampin for 6 weeks total as recommended initially . (2) UTI (urinary tract infection) Assessment & Plan: due to Klebsiella pneumonia and E coli , S/P ceftriaxon for 7 days (3) Cerebral vascular disease Assessment & Plan: old, stable. continue off loading as needed (4) Sacral wound Assessment & Plan: not infected, continue off loading and local care (5) Diabetes mellitus Assessment & Plan: recommend tight glycemic control to keep blood glucose between 80-120 Subjective Constitutional: Reports: no symptoms HEENT: Reports: no symptoms Respiratory: Reports: no symptoms Breasts: Reports: no symptoms Cardiovascular: Reports: no symptoms Gastrointestinal/Abdominal: Reports: no symptoms Genitourinary: Reports: no symptoms Neurologic: Reports: no symptoms Psychiatric: Reports: no symptoms Skin: Reports: no symptoms Endocrine: Reports: no symptoms Hematologic: Reports: no symptoms Allergies: Coded Allergies: LATEX (Unverified Allergy, Mild, Rash, 09/03/14) QUININE (Unverified Allergy, Unknown, Rash Hives, 05/23/15) Quinine Sulfate Subjective she was awake and alert, up in bed, follows commands , no fever or chills, no diarrhea . Objective Vital Signs Last 24 Hour Vital Signs Date Time Temp Pulse Resp B/P (MAP) Pulse Ox O2 Delivery O2 Flow Rate FiO2 05/16/17 12:33 97.6 76 19 133/83 98 Room Air 05/16/17 09:31 130/88 05/16/17 09:30 71 130/88 05/16/17 08:24 97.5 71 18 130/88 98 Room Air 05/16/17 04:00 98.4 75 16 149/78 100 Room Air 05/16/17 00:00 97.9 79 16 140/72 100 Nasal Cannula 2.0 05/15/17 20:48 83 146/79 05/15/17 19:53 97.7 83 18 146/79 99 Room Air 05/15/17 15:54 97.6 75 19 152/82 96 Room Air Height (Feet): 5 Height (Inches): 4.00 Weight (Pounds): 130 General Appearance: WD/WN, no acute distress HEENT: normocephalic, atraumatic, anicteric, mucous membranes moist, EOMI, supple, no JVD Respiratory/Chest: chest wall non-tender, lungs clear, normal breath sounds, no respiratory distress, no accessory muscle use Cardiovascular: normal peripheral pulses, normal rate, regular rhythm, no gallop/murmur, no JVD Abdomen: normal bowel sounds, soft, non tender, no organomegaly, non distended , no mass, no scars Extremities: no cyanosis, no clubbing Skin: no rash, no lesions, no ulcers Neurologic/Psychiatric: alert, responsive Laboratory Tests Test 05/16/17 04:00 White Blood Count 4.5 K/UL (4.8-10.8) L Red Blood Count 2.69 M/UL (4.20-5.40) L Hemoglobin 8.1 G/DL (12.0-16.0) L Hematocrit 26.6 % (37.0-47.0) L Mean Corpuscular Volume 99 FL (80-99) Mean Corpuscular Hemoglobin 30.3 PG (27.0-31.0) Mean Corpuscular Hemoglobin Concent 30.5 G/DL (32.0-36.0) L Red Cell Distribution Width 17.8 % (11.6-14.8) H Platelet Count 237 K/UL (150-450) Mean Platelet Volume 5.8 FL (6.5-10.1) L Neutrophils (%) (Auto) 69.4 % (45.0-75.0) Lymphocytes (%) (Auto) 15.4 % (20.0-45.0) L Monocytes (%) (Auto) 12.1 % (1.0-10.0) H Eosinophils (%) (Auto) 2.1 % (0.0-3.0) Basophils (%) (Auto) 0.9 % (0.0-2.0) Sodium Level 139 mEQ/L (135-145) Potassium Level 4.7 mEQ/L (3.4-4.9) Chloride Level 103 mEQ/L (98-107) Carbon Dioxide Level 28 mEQ/L (20-30) Anion Gap 8 (5-15) Blood Urea Nitrogen 12 mg/dL (7-23) Creatinine 0.5 mg/dL (0.5-0.9) Estimat Glomerular Filtration Rate mL/min (>60) Glucose Level 94 mg/dL (74-106) Calcium Level 9.2 mg/dL (8.6-10.2) Current Medications Medications (Trade) Dose Ordered Sig/Don Route PRN Reason Start Time Stop Time Status Last Admin Dose Admin Acetaminophen (Tylenol) 650 mg Q4H PRN ORAL T>100.5 05/04/17 21:45 06/03/17 21:44 05/11/17 17:58 Al Hydroxide/Mg Hydroxide (Mylanta II) 30 ml Q6H PRN ORAL dyspepsia 05/04/17 21:45 06/03/17 21:44 Carvedilol (Coreg) 3.125 mg Q12HR ORAL 05/05/17 09:00 06/04/17 08:59 05/16/17 09:30 Chlorhexidine Gluconate (Merari-Hex 2%) 1 applic DAILY TOPIC 05/09/17 09:00 06/08/17 08:59 05/16/17 09:32 Clopidogrel Bisulfate (Plavix) 75 mg DAILY ORAL 05/05/17 09:00 06/04/17 08:59 05/16/17 09:30 Dextrose (Dextrose 50%) STAT PRN IV Hypoglycemia 05/04/17 21:45 06/03/17 21:44 Docusate Sodium (Colace) 100 mg TWICE A DAY ORAL 05/14/17 14:00 06/13/17 13:59 05/16/17 09:31 Heparin Sodium (Porcine) (Heparin 5000 units/ml) 5,000 units EVERY 12 HOURS SUBQ 05/05/17 09:00 06/04/17 08:59 05/16/17 09:33 Insulin Aspart (NovoLOG) BEFORE MEALS AND HS SUBQ 05/05/17 06:30 06/04/17 06:29 05/15/17 20:49 Losartan Potassium (Cozaar) 25 mg DAILY ORAL 05/06/17 09:00 06/05/17 08:59 05/16/17 09:31 Mirtazapine (Remeron) 15 mg BEDTIME ORAL 05/04/17 23:00 06/03/17 22:59 05/15/17 20:48 Ondansetron HCl (Zofran) 4 mg Q6H PRN IVP Nausea & Vomiting 05/04/17 21:45 06/03/17 21:44 Polyethylene Glycol (Miralax) 17 gm HSPRN PRN ORAL Constipation 05/04/17 21:45 06/03/17 21:44 05/15/17 20:53 Rifampin (Rifadin) 300 mg EVERY 12 HOURS ORAL 05/15/17 21:00 06/19/17 23:59 05/16/17 09:32 Sertraline HCl (Zoloft) 100 mg DAILY ORAL 05/05/17 09:00 06/04/17 08:59 05/16/17 09:30 Vancomycin HCl (Vanco rx to dose) 1 ea DAILY PRN MISC Per rx protocol 05/15/17 18:15 06/19/17 23:59 Vancomycin HCl 500 mg/Dextrose 110 ml @ 110 mls/hr Q12H IVPB 05/16/17 12:00 05/21/17 11:59 05/16/17 12:33 Annie Lilly M.D. May 16, 2017 15:13
[2017-05-16 15:43] VITALS: BP 134/75
[2017-05-16] MEDS ORDERED: Tubing IV Secondary IV ONE (15:44)
[2017-05-16] MEDS ORDERED: NS 275ml ONE (15:44)
--- NOTE | 2017-05-16 16:05 | Pulmonology Progress Note ---
Assessment/Plan Problems: (1) UTI (urinary tract infection) (2) Sacral wound (3) AICD (automatic cardioverter/defibrillator) present (4) Sick sinus syndrome (5) Cerebral vascular disease (6) Hypertension (7) Diabetes mellitus (8) Severe anemia Assessment/Plan JANIE is done, no endocarditis seen no new complains check cultures all notes and meds reviewed d/w case management all notes reviewed, Dr. Mclean recommendation appreciated dc home today Subjective ROS Limited/Unobtainable: No Constitutional: Reports: no symptoms HEENT: Repors: no symptoms Respiratory: Reports: no symptoms Cardiovascular: Reports: no symptoms Allergies: Coded Allergies: LATEX (Unverified Allergy, Mild, Rash, 09/03/14) QUININE (Unverified Allergy, Unknown, Rash Hives, 05/23/15) Quinine Sulfate Objective Last 24 Hour Vital Signs Date Time Temp Pulse Resp B/P (MAP) Pulse Ox O2 Delivery O2 Flow Rate FiO2 05/16/17 15:43 97.9 80 18 134/75 99 Room Air 05/16/17 12:33 97.6 76 19 133/83 98 Room Air 05/16/17 09:31 130/88 05/16/17 09:30 71 130/88 05/16/17 08:24 97.5 71 18 130/88 98 Room Air 05/16/17 04:00 98.4 75 16 149/78 100 Room Air 05/16/17 00:00 97.9 79 16 140/72 100 Nasal Cannula 2.0 05/15/17 20:48 83 146/79 05/15/17 19:53 97.7 83 18 146/79 99 Room Air General Appearance: cachetic HEENT: normocephalic, atraumatic Respiratory/Chest: chest wall non-tender, lungs clear Breasts: no masses Cardiovascular: normal peripheral pulses, normal rate Abdomen: normal bowel sounds, soft, non tender Genitourinary: normal external genitalia Extremities: no cyanosis Skin: no lesions 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, alert Lymphatic: no neck adenopathy, no groin adenopathy Laboratory Tests 05/16/17 04:00: White Blood Count 4.5L, Red Blood Count 2.69L, Hemoglobin 8.1L, Hematocrit 26.6L , Mean Corpuscular Volume 99, Mean Corpuscular Hemoglobin 30.3, Mean Corpuscular Hemoglobin Concent 30.5L, Red Cell Distribution Width 17.8H, Platelet Count 237, Mean Platelet Volume 5.8L, Neutrophils (%) (Auto) 69.4, Lymphocytes (%) (Auto) 15.4L, Monocytes (%) (Auto) 12.1H, Eosinophils (%) (Auto ) 2.1, Basophils (%) (Auto) 0.9, Sodium Level 139, Potassium Level 4.7, Chloride Level 103, Carbon Dioxide Level 28, Anion Gap 8, Blood Urea Nitrogen 12 , Creatinine 0.5, Estimat Glomerular Filtration Rate , Glucose Level 94, Calcium Level 9.2 MARLENY TURPIN May 16, 2017 16:05
--- NOTE | 2017-05-18 18:39 | Discharge Summary ---
Discharge Summary Hospital Course Date of Admission May 04, 2017 at 14:58 Date of Discharge May 16, 2017 at 15:45 Admitting Diagnosis dehydration/ ALTERED MENTAL STATUS HPI Shirin Sommer is a 76 year old female who was admitted on May 04, 2017 at 14:58 for Dehydration,Altered Mental Status Hospital Course [id number] Discharge Discharge Disposition Patient was discharged to Home with Home Health(06) Discharge Diagnoses: Melani Hinds NP May 18, 2017 18:39
--- NOTE | 2017-05-19 04:30 | Discharge Summary 2 SIG ---
DATE OF ADMISSION: 05/04/2017 DATE OF DISCHARGE: 05/16/2017 CONSULTANTS: 1. Juana Watson M.D. 2. Annie Lilly M.D. 3. Charly Arora M.D. 4. Edna Gill M.D. BRIEF HOSPITAL COURSE: The patient is a 76-year-old, female, who presented with chief complaint of altered mental status. According to patient's daughter, the patient had several episodes of watery diarrhea that started on 05/04/2017 and was then found to be more altered. She has a history of severe anemia with no transfusion as the patient is Gnosticism. She gets Epogen shots. History of cerebrovascular accidents, congestive heart failure, hyperlipidemia, diabetes, hypertension, history of DVT with IVC filter, and bed-bound on Plavix. On evaluation at ED, urine WBC 15 to 20, urine RBC 5 to 10 with 3+ leukocyte esterase, positive nitrite, and many bacteria. She had an EKG that showed normal sinus rhythm. There was a noted ST elevation in leads V1 to V2 that were present on two previous EKGs. Chest x-ray done showed no consolidation, no effusion, and no pneumothorax. Defibrillator was evident on the left chest. She was admitted to medical floor for evaluation of altered mental status and possible sepsis. The patient was started on ceftriaxone and vancomycin. Blood culture showed growth of gram-positive cocci and urine showed growth of E. coli sensitive to ceftriaxone. Blood culture grew coagulase-negative Staph out of the three bottles. The patient was treated for possible endocarditis. Transthoracic echocardiogram did not show vegetations. She had [employer] dual-chamber defibrillator implantation and interrogation done showed normal function with 11 years of battery remaining. She came in with sacral stage III pressure ulcer. Wound care was rendered. Rifampin was added to the patient's regimen. She underwent transesophageal echocardiogram on 05/15/[address] Luz. There were no vegetations noted on the mitral, aortic, or pulmonic valve. Tricuspid valve was not fully visualized. The patient was recommended to continue antibiotic treatment. PICC line was inserted. The patient was discharged home to continue IV vancomycin 1 mg q.24 hours for six weeks with weekly blood draws. FINAL DIAGNOSES: 1. Sepsis with coagulase-negative staphylococci concerning for endocarditis. 2. Altered mental status/acute encephalopathy due to infectious process. 3. Urinary tract infection with Klebsiella and Escherichia coli. 4. Stage III sacral wound, present on admission. 5. Old cerebrovascular accident. 6. Diabetes mellitus. 7. Sick sinus syndrome status post [employer] implantation with normal function. 8. Ischemic cardiomyopathy with ejection fraction of 30% to 35%. 9. Carotid stenosis status post carotid stent placement. 10. Cerebrovascular accident with left hemiplegia. 11. Coronary artery disease with prior stent in 2013. 12. Constipation. 13. Anemia. 14. Diarrhea. 15. History of cervical and lumbar spinal fusion. DISPOSITION: The patient was discharged to home with home health. DISCHARGE MEDICATIONS: Refer to medication list. Continue with IV vancomycin x6 weeks and CBC, CMP, and vancomycin trough weekly. Lorne Rios M.D. I have been assigned to dictate discharge summary on this account and I was not involved in the patient's management. Melani Hinds N.P. DR: ABBY JOB#: [id number] CC: ELIGIO
== END 2017-05-16 15:45 | disposition home health service (06) | DRG 871 ==
LOC: EDBD 13:24 → EMR 14:09 → 4E 14:58 → EDBEDREQ 15:09 → 4E 20:39
PROC: 02HV33Z Insertion of Infusion Device into Superior Vena Cava, Percutaneous Approach (ICD-10-PCS; 2017-05-09)
PROC: B24BZZ4 Ultrasonography of Heart with Aorta, Transesophageal (ICD-10-PCS; principal; 2017-05-15 13:00)
DX: A41.1 Sepsis due to other specified staphylococcus (principal); G93.49 Other encephalopathy; L89.153 Pressure ulcer of sacral region, stage 3; E87.0 Hyperosmolality and hypernatremia; I11.0 Hypertensive heart disease with heart failure; N39.0 Urinary tract infection, site not specified; I38 Endocarditis, valve unspecified; I50.22 Chronic systolic (congestive) heart failure; E11.9 Type 2 diabetes mellitus without complications; B96.20 Unspecified Escherichia coli [E. coli] as the cause of diseases classified elsewhere; R53.2 Functional quadriplegia; I69.354 Hemiplegia and hemiparesis following cerebral infarction affecting left non-dominant side; E86.0 Dehydration; R19.7 Diarrhea, unspecified; Z95.810 Presence of automatic (implantable) cardiac defibrillator; Z86.718 Personal history of other venous thrombosis and embolism; Z79.01 Long term (current) use of anticoagulants; Z98.1 Arthrodesis status; Z79.02 Long term (current) use of antithrombotics/antiplatelets; Z88.8 Allergy status to other drugs, medicaments and biological substances; E78.00 Pure hypercholesterolemia, unspecified; D50.9 Iron deficiency anemia, unspecified; I25.10 Atherosclerotic heart disease of native coronary artery without angina pectoris; B96.1 Klebsiella pneumoniae [K. pneumoniae] as the cause of diseases classified elsewhere; I25.5 Ischemic cardiomyopathy; Z95.5 Presence of coronary angioplasty implant and graft; K59.00 Constipation, unspecified; K29.70 Gastritis, unspecified, without bleeding; Z85.01 Personal history of malignant neoplasm of esophagus; S72.491D Other fracture of lower end of right femur, subsequent encounter for closed fracture with routine healing
CPT/HCPCS: 36415; 36569; 70496; 71010; 76937; 80048; 80053; 80061; 80076; 80202; 81003; 82550; 82553; 82728; 82962; 83540; 83550; 83605; 83880; 84484; 85007; 85025; 85651; 86140; 86431; 87040; 87081; 87086; 87181; 93005; 93306; 93312; 94003; 94150; 99285; J1815

== ENCOUNTER 2017-11-14 15:17 | Inpatient (IN) | payer MEDICAID, MEDICARE ==
[~2017-11-14] VITALS: Ht 160 cm; Wt 67.6 kg
[~2017-11-14 15:17] MED LIST changes: +CEFTRIAXON1 GM/50 ML IV; +RIFADIN150 MG ORAL; +VANCO 1 GR1 GM/250 M IV; +VANCOMYCIN1 GM/2502 IVPB
[2017-11-14 17:32] VITALS: BP 123/80
[2017-11-14 17:33] LABS: BASOPHILS % (AUTO) 0.8 % (0.0-2.0); EOSINOPHILS % (AUTO) 1.2 % (0.0-3.0); HEMOGLOBIN 8.3 G/DL (12.0-16.0); LYMPHOCYTES % (AUTO) 9.6 % (20.0-45.0); MEAN CORPUSCULAR VOLUME 79 FL (80-99); MONOCYTES % (AUTO) 5.9 % (1.0-10.0); NEUTROPHILS % (AUTO) 82.4 % (45.0-75.0); PLATELET COUNT 298 K/UL (150-450); RED BLOOD COUNT 3.42 M/UL (4.20-5.40); RED CELL DISTRIBUTION WIDTH 17.5 % (11.6-14.8); WHITE BLOOD COUNT 8.9 K/UL (4.8-10.8)
--- NOTE | 2017-11-14 17:46 | Emergency Room Report ---
History of Present Illness General Chief Complaint: Nausea, Vomiting, and Diarrhea Source: Family Member Present Illness HPI This patient is accompanied by her daughter. 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 She also has a history of severe anemia that requires Procrit and iron supplementation. The daughter reports that she has had recurrent diarrhea for the past week. She states that it is nonbloody. There has been no fever or chills. There has been no nausea or vomiting. However, she has had decreased appetite. She denies pain. There has been no travel. She has noted that she has been somewhat weaker than usual. The patient is Quaker and declines all blood products. The patient herself has no complaints and is requesting to go home. Allergies: Coded Allergies: LATEX (Unverified Allergy, Mild, Rash, 09/03/14) QUININE (Unverified Allergy, Unknown, Rash Hives, 05/23/15) Quinine Sulfate Patient History Past Medical History: see triage record, HTN, NV, CAD, CHF, CVA/TIA, dementia Social History: Denies: smoking, alcohol use, drug use Reviewed Nursing Documentation: PMH: Agreed, PSxH: Agreed Nursing Documentation-PMH Hx Cardiac Problems: Yes Hx Hypertension: Yes Hx Pacemaker: Yes Hx Asthma: Yes Hx Diabetes: Yes Hx Cancer: No Hx Gastrointestinal Problems: Yes - gastritis Hx Neurological Problems: Yes Hx Cerebrovascular Accident: Yes Hx Dementia: Yes Hx Vertigo: Yes Hx Dizziness: Yes Hx Syncope: Yes Hx Headaches: Yes Hx Weakness: Yes Hx Fatigue: Yes Review of Systems All Other Systems: negative except mentioned in HPI Physical Exam Vital Signs Date Time Temp Pulse Resp B/P (MAP) Pulse Ox O2 Delivery O2 Flow Rate FiO2 11/14/17 15:11 98.2 78 16 123/80 98 98.2 Sp02 EP Interpretation: reviewed, normal General Appearance: no apparent distress, alert, GCS 15, non-toxic Head: normocephalic, atraumatic Eyes: bilateral eye normal inspection, bilateral eye PERRL ENT: hearing grossly normal, normal pharynx, no angioedema, normal voice Neck: full range of motion, supple/symm/no masses Respiratory: chest non-tender, lungs clear, normal breath sounds, speaking full sentences Cardiovascular #1: regular rate, rhythm, no edema Gastrointestinal: non tender, soft, non-distended, no guarding, no rebound Rectal: deferred Musculoskeletal: other - L. sided hemiparesis at baseline. Neurologic: alert, responsive, speech normal, other - At baseline Psychiatric: mood/affect normal, no suicidal/homicidal ideation Skin: normal color, warm/dry Medical Decision Making Diagnostic Impression: Primary Impression: Colitis ER Course This patient presents with symptoms consistent with colitis. The patient is elderly and the symptoms are ongoing. I am concerned about C. difficile colitis. Overall she is well-appearing but given her age and how frail she is concerned that she could further decompensate. Therefore, she is admitted for further evaluation and treatment. Laboratory Tests Test 11/14/17 17:10 White Blood Count 8.9 K/UL (4.8-10.8) Red Blood Count 3.42 M/UL (4.20-5.40) L Hemoglobin 8.3 G/DL (12.0-16.0) L Hematocrit 27.0 % (37.0-47.0) L Mean Corpuscular Volume 79 FL (80-99) L Mean Corpuscular Hemoglobin 24.2 PG (27.0-31.0) L Mean Corpuscular Hemoglobin Concent 30.6 G/DL (32.0-36.0) L Red Cell Distribution Width 17.5 % (11.6-14.8) H Platelet Count 298 K/UL (150-450) Mean Platelet Volume 5.8 FL (6.5-10.1) L Neutrophils (%) (Auto) 82.4 % (45.0-75.0) H Lymphocytes (%) (Auto) 9.6 % (20.0-45.0) L Monocytes (%) (Auto) 5.9 % (1.0-10.0) Eosinophils (%) (Auto) 1.2 % (0.0-3.0) Basophils (%) (Auto) 0.8 % (0.0-2.0) Sodium Level 142 MMOL/L (136-145) Potassium Level 3.7 MMOL/L (3.5-5.1) Chloride Level 110 MMOL/L (98-107) H Carbon Dioxide Level 24 MMOL/L (21-32) Anion Gap 8 mmol/L (5-15) Blood Urea Nitrogen 16 mg/dL (7-18) Creatinine 0.7 MG/DL (0.55-1.30) Estimate Glomerular Filtration Rate mL/min (>60) Glucose Level 135 MG/DL (74-106) H Calcium Level 8.8 MG/DL (8.5-10.1) Total Bilirubin 0.2 MG/DL (0.2-1.0) Aspartate Amino Transferase (AST) 21 U/L (15-37) Alanine Aminotransferase (ALT) 13 U/L (12-78) Alkaline Phosphatase 94 U/L (46-116) Total Protein 6.3 G/DL (6.4-8.2) L Albumin 2.5 G/DL (3.4-5.0) L Globulin 3.8 g/dL Albumin/Globulin Ratio 0.7 (1.0-2.7) L Lipase 102 U/L (73-393) EKG Diagnostic Results Rate: normal Rhythm: NSR ST Segments: no acute changes Rhythm Strip Diag. Results EP Interpretation: yes Rate: 90's Rhythm: NSR, no PVC's, no ectopy Last Vital Signs Date Time Temp Pulse Resp B/P (MAP) Pulse Ox O2 Delivery O2 Flow Rate FiO2 11/14/17 15:11 98.2 78 16 123/80 98 98.2 Disposition: ADMITTED INPATIENT Condition: Stable Referrals: Lobito Jones MD (PCP) HEATHER DAMON D.O. Nov 14, 2017 17:46
[2017-11-14 17:48] LABS: ANION GAP 8 mmol/L (5-15); BLOOD UREA NITROGEN 16 mg/dL (7-18); CALCIUM 8.8 MG/DL (8.5-10.1); CARBON DIOXIDE 24 MMOL/L (21-32); CHLORIDE 110 MMOL/L (98-107); CREATININE 0.7 MG/DL (0.55-1.30); POTASSIUM 3.7 MMOL/L (3.5-5.1); SODIUM 142 MMOL/L (136-145)
[2017-11-14 17:53] LABS: ALANINE AMINOTRANSFERASE 13 U/L (12-78); ALBUMIN 2.5 G/DL (3.4-5.0); ALBUMIN/GLOBULIN RATIO 0.7 (1.0-2.7); ALKALINE PHOSPHATASE 94 U/L (46-116); ASPARTATE AMINO TRANSFERASE 21 U/L (15-37); BILIRUBIN,TOTAL 0.2 MG/DL (0.2-1.0)
[2017-11-14] MEDS ORDERED: NS 1000ml 1,600 ML IVLG ONE (18:30)
[2017-11-14] MEDS ORDERED: DiphenhydrAMINE 50mg/ml Inj IVP ONE (18:30)
[2017-11-14] MEDS ORDERED: PROCRIT10000 UNIT SUBQ (18:47)
[2017-11-14] MEDS ORDERED: ZANTAC150 MG ORAL (18:47)
[2017-11-14] MEDS ORDERED: ASPIR 8181 MG ORAL (18:47)
[2017-11-14] MEDS ORDERED: metroNIDAZOLE 500mg tab ORAL ONE (19:00)
[2017-11-14 19:25] VITALS: BP 150/89
[2017-11-14] MEDS ORDERED: ACETAMINOPHEN-1 EAC1 ORAL (20:02)
[2017-11-14] MEDS ORDERED: MIRTAZAPINE15 M3 ORAL (20:02)
[2017-11-14] MEDS ORDERED: ATORVASTATIN CA40 MG ORAL (20:02)
[2017-11-14 22:00] VITALS: BP 145/87
[2017-11-14 23:00] VITALS: BP 168/84
[2017-11-14] MEDS ORDERED: Lomotil 2.5mg tab ORAL PRN (23:00)
[2017-11-15] VITALS: BP 143/80
[2017-11-15 04:00] VITALS: BP 145/81
[2017-11-15] MEDS: NovoLOG Insulin Flexpen SUBQ SCH ×4 (05:52→21:14)
[2017-11-15 08:00] VITALS: BP 155/88
[2017-11-15 08:08] LABS: HEMATOCRIT 24.4 % (37.0-47.0); HEMOGLOBIN 7.5 G/DL (12.0-16.0); MEAN CORPUSCULAR VOLUME 79 FL (80-99); PLATELET COUNT 292 K/UL (150-450); RED BLOOD COUNT 3.09 M/UL (4.20-5.40); RED CELL DISTRIBUTION WIDTH 17.4 % (11.6-14.8); WHITE BLOOD COUNT 7.5 K/UL (4.8-10.8)
[2017-11-15 09:18] LABS: ALANINE AMINOTRANSFERASE 12 U/L (12-78); ALBUMIN 2.5 G/DL (3.4-5.0); ALBUMIN/GLOBULIN RATIO 0.7 (1.0-2.7); ALKALINE PHOSPHATASE 95 U/L (46-116); ANION GAP 9 mmol/L (5-15); ASPARTATE AMINO TRANSFERASE 15 U/L (15-37); BILIRUBIN,TOTAL 0.1 MG/DL (0.2-1.0); BLOOD UREA NITROGEN 14 mg/dL (7-18); CALCIUM 8.5 MG/DL (8.5-10.1); CARBON DIOXIDE 22 MMOL/L (21-32); CHLORIDE 112 MMOL/L (98-107); CREATININE 0.6 MG/DL (0.55-1.30); PHOSPHORUS 2.8 MG/DL (2.5-4.9); POTASSIUM 3.1 MMOL/L (3.5-5.1); SODIUM 143 MMOL/L (136-145)
[2017-11-15] MEDS: Donepezil 5mg Tab ORAL SCH (10:21)
[2017-11-15] MEDS: Losartan 50mg tab ORAL SCH (10:22)
[2017-11-15] MEDS: metFORMIN 500mg tab ORAL SCH ×2 (10:22→17:39)
[2017-11-15] MEDS: Aspirin EC 81mg tab ORAL SCH (10:23)
[2017-11-15] MEDS: Sertraline 100mg tab ORAL SCH (10:23)
--- NOTE | 2017-11-15 11:05 | Wound Care Consultation ---
Wound Assessment Wound Assessment #1: Wound Number: 1 Wound Present on Admission: Yes New Wound: No Status Change of Wound: No Wound Location Body Site Modif: right Wound Location Body Site: toe - 1ST TOE Wound Type: pressure ulcer Leesa Test: Does not Leesa Pressure Ulcer Stage: Deep Tissue Injury Wound Thickness: Full Thickness Wound Length: 2.0 Wound Width: 2.0 Wound Depth: UTD Percent of Wound Ren[place]/Red: 50 - DEEP RED Percent of Wound Purple/Maroon: 50 Other Colors Identified: NOTED TOENAIL WITH DRAINAGE AND ERYTHEMIC -FOLLOW UP WITH PODIATRY Wound Drainage Amount: None Wound Drainage Odor: None/Absent Tissue Surrounding Wound: Intact Wound General Appearance: Reddened, Draining - TOE NAIL Wound Assessment #2: Wound Number: 2 Wound Present on Admission: Yes New Wound: No Status Change of Wound: No Wound Location Body Site Modif: right Wound Location Body Site: toe - 2ND Wound Type: pressure ulcer Leesa Test: Does not Leesa Pressure Ulcer Stage: Deep Tissue Injury Wound Thickness: Full Thickness Wound Length: 2.0 Wound Width: 1.0 Wound Depth: UTD Percent of Wound Purple/Maroon: 100 Wound Drainage Amount: None Wound Drainage Odor: None/Absent Tissue Surrounding Wound: Intact Wound General Appearance: Reddened - MAROON Wound Assessment #3: Wound Number: 3 Wound Present on Admission: Yes New Wound: No Status Change of Wound: No Wound Location Body Site Modif: right Wound Location Body Site: heel Wound Type: pressure ulcer Leesa Test: Does not Leesa Pressure Ulcer Stage: Deep Tissue Injury Wound Thickness: Full Thickness Wound Length: 4.0 Wound Width: 3.0 Wound Depth: UTD Percent of Wound Purple/Maroon: 100 Wound Drainage Amount: None Wound Drainage Odor: None/Absent Tissue Surrounding Wound: Intact Wound General Appearance: Reddened - DEEP MAROON Wound Assessment #4: Wound Number: 4 Wound Present on Admission: Yes New Wound: No Status Change of Wound: No Wound Location Body Site: other - SACROCOCCYGEAL Wound Type: pressure ulcer Leesa Test: Does not Leesa Pressure Ulcer Stage: Unstageable - 4 Wound Thickness: Full Thickness Wound Length: 4.5 Wound Width: 4.5 Wound Depth: UTD Percent of Wound [place]/Red: 10 Percent of Wound Bed Yellow/Wh: 20 Percent of Wound Purple/Maroon: 70 Wound Drainage Description: Serosanguineous Wound Drainage Amount: Moderate Wound Drainage Odor: None/Absent Tissue Surrounding Wound: Macerated Wound General Appearance: Reddened - MAROON, Draining, Necrotic, Muscle Visible Wound Assessment #5: Wound Number: 5 Wound Present on Admission: Yes New Wound: No Status Change of Wound: No Wound Location Body Site: other - sacrococcygeal Wound Type: pressure ulcer Leesa Test: Does not Leesa Pressure Ulcer Stage: Deep Tissue Injury - noted with serous filled blister to right aspect of sacral Wound Thickness: Full Thickness Wound Length: 6.0 Wound Width: 5.0 Wound Depth: utd Percent of Wound Purple/Maroon: 100 Other Colors Identified: blister 3.0cmx2.0 with cap Wound Drainage Amount: None Wound Drainage Odor: None/Absent Tissue Surrounding Wound: maroon Wound General Appearance: Reddened - maroon Wound Assessment #6: Wound Number: 6 Wound Present on Admission: Yes New Wound: No Status Change of Wound: No Wound Location Body Site Modif: posterior, medial Wound Location Body Site: back Wound Type: pressure ulcer Leesa Test: Does not Leesa Pressure Ulcer Stage: IV Wound Thickness: Full Thickness Wound Length: 2.0 Wound Width: 2.0 Wound Depth: 1.0 Percent of Wound [place]/Red: 70 Percent of Wound Bed Yellow/Wh: 20 Percent of Wound Purple/Maroon: 10 Wound Drainage Description: Serosanguineous Wound Drainage Amount: Moderate Wound Drainage Odor: None/Absent Tissue Surrounding Wound: Macerated Wound Undermining at 6:00: 1.0 Wound Undermining at 9:00: 1.0 Wound General Appearance: Reddened, Draining, Muscle Visible Wound Assessment #7: Wound Number: 7 Wound Present on Admission: Yes New Wound: No Status Change of Wound: No Wound Location Body Site Modif: left Wound Location Body Site: heel Wound Type: pressure ulcer Leesa Test: Does not Leesa Pressure Ulcer Stage: Deep Tissue Injury Wound Thickness: Full Thickness Wound Length: 8.0 Wound Width: 6.0 Wound Depth: utd Percent of Wound Purple/Maroon: 100 - maroon and tobar color present Wound Drainage Amount: None Wound Drainage Odor: None/Absent Tissue Surrounding Wound: Intact Wound General Appearance: Reddened - maroon,tobar color Wound Assessment #8: Wound Number: 8 Wound Present on Admission: Yes New Wound: No Status Change of Wound: No Wound Location Body Site Modif: left Wound Location Body Site: toe - 1st Wound Type: pressure ulcer Leesa Test: Does not Leesa Pressure Ulcer Stage: Deep Tissue Injury Wound Thickness: Full Thickness Wound Length: 3.0 Wound Width: 2.0 Wound Depth: utd Percent of Wound Purple/Maroon: 100 Wound Drainage Amount: None Wound Drainage Odor: None/Absent Tissue Surrounding Wound: Intact Wound General Appearance: Reddened - maroon Wound Assessment #9: Wound Number: 9 Wound Present on Admission: Yes New Wound: No Status Change of Wound: No Wound Location Body Site Modif: left Wound Location Body Site: metatarsal head - 1st Wound Type: pressure ulcer Leesa Test: Does not Leesa Pressure Ulcer Stage: Deep Tissue Injury Wound Thickness: Full Thickness Wound Length: 1.0 Wound Width: 1.0 Wound Depth: utd Percent of Wound Purple/Maroon: 100 Wound Drainage Amount: None Wound Drainage Odor: None/Absent Tissue Surrounding Wound: Intact Wound General Appearance: Reddened - maroon Wound Comment #1 Right 1st toe deep tissue injury ,right 1st toenail with drainage and erythema -follow up with podiatry #2 right 2nd toe deep tissue injury. #3 right heel deep tissue injury. #4 left heel deep tissue injury. #5 left first toe deep tissue injury #6 left 1st metatarsal head deep tissue injury. #8 Sacrococcygeal unstageable pressure ulcer #9 sacrococcygeal deep tissue injury with blister with cap -at risk for further skin breakdown. #10 posterior medial back pressure ulcer stage 4 . #11 posterior upper back hyperpigmented tobar scar tissue Recommendation- FOLLOW UP WITH MD FOR POSSIBLE CONSULT WITH PODIATRY- FEET/ TOENAIL AND WOUND MD FOR PRESSURE ULCERS TO SACRAL AND POSTERIOR BACK -Local wound care as ordered. -Turn and reposition. -Keep clean and dry. -Apply low air loss mattress for wound and skin management. -Offload heels and feet. -Heel protectors -Avoid shear and friction. -Optimize nutrition -Assess and follow up with MD if any further change of condition noted to skin. SAMANTHA KIM Nov 15, 2017 11:05
[2017-11-15 12:00] VITALS: BP 146/82
--- NOTE | 2017-11-15 15:13 | Consultation ---
History of Present Illness General Date patient seen: Nov 15, 2017 Chief Complaint: Nausea, Vomiting, and Diarrhea Present Illness HPI 76 year old female with a history of asthma, left-sided hemiparesis secondary to CVA, severe anemia, Jehovas witness presented to ER with CC of recurrent diarrhea for the past week. She states that it is nonbloody. There has been no fever or chills. There has been no nausea or vomiting. However, she has had decreased appetite. She denies pain. There has been no travel. She has noted that she has been somewhat weaker than usual. She was found to be severely anemic and admitted to med/surg for further evaluation. Allergies: Coded Allergies: LATEX (Unverified Allergy, Mild, Rash, 09/03/14) QUININE (Unverified Allergy, Unknown, Rash Hives, 05/23/15) Quinine Sulfate Medication History Scheduled Ascorbic Acid* (Vitamin C*), 500 MG ORAL THREE TIMES A DAY, (Reported) Aspirin* (Aspir 81*), 81 MG ORAL DAILY, (Reported) Atorvastatin Calcium* (Lipitor*), 80 MG ORAL BEDTIME, (Reported) Atorvastatin Calcium* (Atorvastatin Calcium*), 40 MG ORAL BEDTIME, (Reported) Carvedilol* (Carvedilol*), 3.125 MG ORAL BID, (Reported) Ceftriaxone Na/Dextrose,Iso (Ceftriaxone 1 Gm Piggyback), 1 GM IV DAILY, ( Reported) Clopidogrel* (Clopidogrel*), 75 MG ORAL DAILY, (Reported) Donepezil Hcl* (Donepezil Hcl*), 5 MG ORAL DAILY, (Reported) Epoetin Barak (Procrit), 10,000 UNIT SUBQ ONCE A WEEK, (Reported) Epoetin Barak (Procrit), 10,000 UNIT SUBQ 3XW, (Reported) Ferrous Sulfate (Feosol), 325 MG PO THREE TIMES A DAY, (Reported) Folic Acid* (Folic Acid*), 1 MG ORAL DAILY, (Reported) Iron Sucrose Complex (Venofer), 100 MG IV QHS, (Reported) Losartan Potassium* (Cozaar*), 50 MG ORAL DAILY, (Reported) Metformin Hcl* (Metformin Hcl*), 500 MG ORAL TWICE A DAY, (Reported) Mirtazapine* (Remeron*), 15 MG ORAL BEDTIME, (Reported) Mirtazapine* (Mirtazapine*), 30 MG ORAL BEDTIME, (Reported) Multivitamin With Minerals (Multivitamins With Minerals*), 1 TAB ORAL DAILY, ( Reported) Omeprazole (Omeprazole), 20 MG ORAL DAILY, (Reported) Pantoprazole* (Protonix*), 40 MG ORAL DAILY, (Reported) Ranitidine Hcl* (Zantac*), 150 MG ORAL TWICE A DAY, (Reported) Rifampin* (Rifadin*), 300 MG ORAL Q12HR, (Reported) Sertraline Hcl* (Zoloft*), 100 MG ORAL DAILY, (Reported) Vancomycin Hcl/D5w (Vancomycin-D5w 1 G/250 Ml), 1 GM IVPB Q24H, (Reported) Vancomycin/0.9 % Sod Chloride (Vanco 1 Gram/250 ml-0.9% NaCl), 1 GM IV DAILY, ( Reported) Scheduled PRN Acetaminophen (Acetaminophen), 650 MG ORAL Q6H PRN for Prn Headache/Temp > 101, (Reported) Acetaminophen With Codeine (T#3) (Tylenol #3 Tab*), 1 TAB ORAL DAILY PRN for For Pain, (Reported) Alprazolam* (Xanax*), 0.25 MG ORAL EVERY 6 HOURS PRN for For Anxiety, (Reported) Bisacodyl* (Dulcolax*), 5 MG ORAL DAILY PRN for Constipation, (Reported) Hydrocodone Bit/Acetaminophen 5-325* ([place] 5-325 Tablet*), 1 TAB ORAL Q6HR PRN for For Pain, (Reported) Hydrocodone Bit/Acetaminophen 5-325* ([place] 5-325 Tablet*), 1 TAB ORAL Q8HR PRN for For Pain, (Reported) Lactulose (Lactulose*), 20 ML ORAL THREE TIMES A DAY PRN for PRN, (Reported) Ondansetron (Zofran), 4 MG ORAL Q6H PRN for Nausea & Vomiting, (Reported) Temazepam (Temazepam*), 15 MG ORAL BEDTIME PRN for Insomnia, (Reported) Miscellaneous Medications Ceftriaxone Na/Dextrose,Iso (Ceftriaxone 1 Gm Piggyback), 1 GM IV, (Reported) Discontinued Medications Epoetin Barak (Procrit), 10,000 UNIT SUBQ Q48hr, (Reported) Discontinued Reason: Pt stopped taking med Patient History Healthcare decision maker Pau Resuscitation status Full Code Advanced Directive on File No Past Medical/Surgical History Past Medical/Surgical History: (1) AICD (automatic cardioverter/defibrillator) present (2) Patient is Hinduism (3) CVA (cerebrovascular accident) (4) CAD (coronary artery disease) (5) Diabetes mellitus Review of Systems All Other Systems: negative except mentioned in HPI Physical Exam General Appearance: cachetic Lines, tubes and drains: peripheral HEENT: normocephalic, anicteric Neck: non-tender, normal alignment Respiratory/Chest: chest wall non-tender, lungs clear, no respiratory distress Breasts: no masses Cardiovascular/Chest: normal rate Abdomen: normal bowel sounds Genitourinary/Rectal: normal rectal exam Extremities: normal range of motion Last 24 Hour Vital Signs Date Time Temp Pulse Resp B/P (MAP) Pulse Ox O2 Delivery O2 Flow Rate FiO2 11/15/17 12:00 97.7 82 19 146/82 96 Room Air 97.7 11/15/17 10:22 155/88 11/15/17 10:21 79 155/88 11/15/17 08:00 97.1 79 18 155/88 100 Room Air 97.1 11/15/17 04:00 100 Room Air 11/15/17 04:00 97.7 79 20 145/81 100 Room Air 97.7 11/15/17 00:28 90 168/84 11/15/17 00:00 100 Room Air 11/15/17 00:00 98.8 92 20 143/80 100 98.8 11/14/17 23:00 98.3 90 20 168/84 99 Room Air 98.3 11/14/17 22:10 98.1 79 20 145/87 99 Room Air 98.1 11/14/17 22:00 98.1 79 20 145/87 99 Room Air 98.1 11/14/17 19:25 98.2 81 21 150/89 97 Room Air 98.2 11/14/17 17:32 98.2 16 123/80 98 98.2 11/14/17 15:11 98.2 78 16 123/80 98 98.2 Intake and Output 11/14/17 11/15/17 19:00 07:00 Intake Total 0 ml 3087.5 ml Balance 0 ml 3087.5 ml Intake Oral 0 ml IV Total 3087.5 ml # Bowel Movements 1 Laboratory Tests Test 11/14/17 17:10 11/15/17 07:25 White Blood Count 8.9 K/UL (4.8-10.8) 7.5 K/UL (4.8-10.8) Red Blood Count 3.42 M/UL (4.20-5.40) L 3.09 M/UL (4.20-5.40) L Hemoglobin 8.3 G/DL (12.0-16.0) L 7.5 G/DL (12.0-16.0) L Hematocrit 27.0 % (37.0-47.0) L 24.4 % (37.0-47.0) L Mean Corpuscular Volume 79 FL (80-99) L 79 FL (80-99) L Mean Corpuscular Hemoglobin 24.2 PG (27.0-31.0) L 24.2 PG (27.0-31.0) L Mean Corpuscular Hemoglobin Concent 30.6 G/DL (32.0-36.0) L 30.6 G/DL (32.0-36.0) L Red Cell Distribution Width 17.5 % (11.6-14.8) H 17.4 % (11.6-14.8) H Platelet Count 298 K/UL (150-450) 292 K/UL (150-450) Mean Platelet Volume 5.8 FL (6.5-10.1) L 5.2 FL (6.5-10.1) L Neutrophils (%) (Auto) 82.4 % (45.0-75.0) H % (45.0-75.0) Lymphocytes (%) (Auto) 9.6 % (20.0-45.0) L % (20.0-45.0) Monocytes (%) (Auto) 5.9 % (1.0-10.0) % (1.0-10.0) Eosinophils (%) (Auto) 1.2 % (0.0-3.0) % (0.0-3.0) Basophils (%) (Auto) 0.8 % (0.0-2.0) % (0.0-2.0) Sodium Level 142 MMOL/L (136-145) 143 MMOL/L (136-145) Potassium Level 3.7 MMOL/L (3.5-5.1) 3.1 MMOL/L (3.5-5.1) L Chloride Level 110 MMOL/L (98-107) H 112 MMOL/L (98-107) H Carbon Dioxide Level 24 MMOL/L (21-32) 22 MMOL/L (21-32) Anion Gap 8 mmol/L (5-15) 9 mmol/L (5-15) Blood Urea Nitrogen 16 mg/dL (7-18) 14 mg/dL (7-18) Creatinine 0.7 MG/DL (0.55-1.30) 0.6 MG/DL (0.55-1.30) Estimat Glomerular Filtration Rate mL/min (>60) mL/min (>60) Glucose Level 135 MG/DL (74-106) H 89 MG/DL (74-106) Calcium Level 8.8 MG/DL (8.5-10.1) 8.5 MG/DL (8.5-10.1) Total Bilirubin 0.2 MG/DL (0.2-1.0) 0.1 MG/DL (0.2-1.0) L Aspartate Amino Transf (AST/SGOT) 21 U/L (15-37) 15 U/L (15-37) Alanine Aminotransferase (ALT/SGPT) 13 U/L (12-78) 12 U/L (12-78) Alkaline Phosphatase 94 U/L (46-116) 95 U/L (46-116) Total Protein 6.3 G/DL (6.4-8.2) L 6.1 G/DL (6.4-8.2) L Albumin 2.5 G/DL (3.4-5.0) L 2.5 G/DL (3.4-5.0) L Globulin 3.8 g/dL 3.6 g/dL Albumin/Globulin Ratio 0.7 (1.0-2.7) L 0.7 (1.0-2.7) L Lipase 102 U/L (73-393) Differential Total Cells Counted 100 Neutrophils % (Manual) 72 % (45-75) Lymphocytes % (Manual) 18 % (20-45) L Monocytes % (Manual) 6 % (1-10) Eosinophils % (Manual) 2 % (0-3) Basophils % (Manual) 0 % (0-2) Band Neutrophils 2 % (0-8) Platelet Estimate Adequate Platelet Morphology Normal Hypochromasia 2+ Anisocytosis 1+ Microcytosis 1+ Phosphorus Level 2.8 MG/DL (2.5-4.9) Magnesium Level 1.2 MG/DL (1.8-2.4) L Microbiology Date/Time Source Procedure Growth Status 11/15/17 02:30 Stool Clostridium difficile Toxin Assay - Final Complete Height (Feet): 5 Height (Inches): 3.00 Weight (Pounds): 120 Medications Current Medications Medications (Trade) Dose Ordered Sig/Don Route PRN Reason Start Time Stop Time Status Last Admin Dose Admin Acetaminophen/ Hydrocodone Bitart ([place] 5/325) 1 tab Q6HR PRN ORAL For Pain 11/14/17 23:00 11/21/17 22:59 Aspirin (Ecotrin) 81 mg DAILY ORAL 11/15/17 09:00 12/15/17 08:59 11/15/17 10:23 Atorvastatin Calcium (Lipitor) 80 mg BEDTIME ORAL 11/15/17 21:00 12/15/17 20:59 Carvedilol (Coreg) 3.125 mg BID ORAL 11/15/17 00:00 12/15/17 00:00 11/15/17 10:21 Ciprofloxacin 200 ml @ 200 mls/hr Q12HR IV 11/15/17 09:00 11/22/17 08:59 11/15/17 10:21 Dextrose (Dextrose 50%) STAT PRN IV Hypoglycemia 11/14/17 23:00 12/14/17 22:59 Diphenoxylate HCl/ Atropine (Lomotil) 2.5 mg Q6HR PRN ORAL Diarrhea 11/14/17 23:00 12/14/17 22:59 Donepezil HCl (Aricept) 5 mg DAILY ORAL 11/15/17 09:00 12/15/17 08:59 11/15/17 10:21 Epoetin Barak (Procrit (for non ESRD use)) 8,000 units SUN-SUN-SUN SUBQ 11/16/17 21:00 12/16/17 20:59 Ferrous Sulfate (Feosol) 325 mg THREE TIMES A DAY ORAL 11/15/17 09:00 12/15/17 08:59 11/15/17 12:55 Insulin Aspart (NovoLOG) BEFORE MEALS AND HS SUBQ 11/15/17 06:30 12/15/17 06:29 Losartan Potassium (Cozaar) 50 mg DAILY ORAL 11/15/17 09:00 12/15/17 08:59 11/15/17 10:22 Metformin HCl (Glucophage) 500 mg TWICE A DAY ORAL 11/15/17 09:00 12/15/17 08:59 11/15/17 10:22 Metronidazole 100 ml @ 100 mls/hr Q8HR IVPB 11/15/17 06:00 11/22/17 05:59 11/15/17 14:11 Mirtazapine (Remeron) 30 mg BEDTIME ORAL 11/15/17 21:00 12/15/17 20:59 Sertraline HCl (Zoloft) 100 mg DAILY ORAL 11/15/17 09:00 12/15/17 08:59 11/15/17 10:23 Sodium Chloride 1,000 ml @ 75 mls/hr [id number] IV 11/14/17 23:00 12/14/17 22:59 11/15/17 12:55 Assessment/Plan Problem List: (1) Anemia ICD Codes: D64.9 - Anemia, unspecified SNOMED: 055580242 (2) colitis (3) Asthma ICD Codes: J45.909 - Asthma SNOMED: 785591069 (4) CVA (cerebrovascular accident) ICD Codes: I63.9 - Cerebrovascular accident SNOMED: 810969974 (5) Diabetes mellitus ICD Codes: E11.9 - Diabetes mellitus SNOMED: 03867305 (6) AICD (automatic cardioverter/defibrillator) present ICD Codes: Z95.810 - Presence of automatic (implantable) cardiac defibrillator SNOMED: 42070589, 844007299 Assessment/Plan GI evaluation hem evaluation folic acid, B12, Venofer, epogen check stool for blood symptomatic treatment MARLENY TURPIN Nov 15, 2017 15:13
[2017-11-15] MEDS ORDERED: Vitamin B12 1000mcg/ml Inj IM ONE (15:45)
[2017-11-15 16:00] VITALS: BP 140/87
[2017-11-15] MEDS ORDERED: Bisacodyl EC 5mg tab ORAL ONE (16:00)
[2017-11-15] MEDS ORDERED: Polyethylene Glycol 238gm bottle ORAL ONE (16:30)
[2017-11-15 20:00] VITALS: BP 151/87
--- NOTE | 2017-11-15 20:20 | History & Physical ---
History and Physical History & Physicial Dictated for Int Med-Dr Jones no. [id number]. DELFIN MARTINEZ Nov 15, 2017 20:20
[2017-11-15] MEDS: Iron Sucrose 100 MG in NS 55 ML IV SCH (21:09)
[2017-11-15] MEDS: Atorvastatin 80mg tab ORAL SCH (21:10)
[2017-11-16] VITALS: BP 168/96
[2017-11-16] MEDS ORDERED: Fleet's Enema 133ml RECTAL ONE ×2 (01:00→06:00)
--- NOTE | 2017-11-16 01:45 | History and Physical Report ---
DATE OF ADMISSION: 11/14/2017 CHIEF COMPLAINT: The patient is a 76-year-old female, presents with chief complaint of diarrhea. HISTORY OF PRESENT ILLNESS: The patient is coming in with her daughter. The patient has a history of cerebrovascular accident and left hemiparesis. The patient also has anemia that requires Procrit and iron supplementation. The patient was last admitted to [facility] in April 2017. Please see history and physical and discharge summary dictated at that time. The patient began to experience diarrhea approximately a week ago. Diarrhea is watery in nature. The patient has multiple bowel movements daily. There is no blood in the stool. There is no melena. The patient presented to [place] emergency room. The patient was admitted for diarrhea and dehydration. PAST MEDICAL HISTORY: Significant for 1. Right distal femur fracture. 2. Severe iron-deficiency anemia. The patient is a Jehovah's witness and has refused blood transfusions in the past. 3. History of cerebrovascular accident. 4. Left hemiparesis. 5. Coronary artery disease, status post stent placement in 2014. 6. Congestive heart failure. 7. Diabetes type 2. 8. Hypertension. 9. Hypercholesterolemia. 10. History of deep venous thrombosis, status post IVC. 11. AICD in situ. PAST SURGICAL HISTORY: Significant for, 1. Cholecystectomy. 2. Cervical spine fusion. 3. Lumbar spine surgery. 4. Bilateral knee arthroplasty. 5. Carotid stenting for carotid stenosis. 6. AICD placement. CURRENT MEDICATIONS: 1. Tylenol 650 mg p.o. q.4 h. p.r.n. 2. Xanax 0.25 mg p.o. q.6 h. 3. Vitamin C 500 mg p.o. three times a day. 4. Aspirin 81 mg p.o. daily. 5. Lipitor 80 mg p.o. at bedtime. 6. Carvedilol 3.125 mg p.o. twice daily. 7. Clopidogrel 75 mg p.o. daily. 8. Aricept 5 mg p.o. daily. 9. Procrit 1000 units subcutaneously every week. 10. Iron sulfate 325 mg p.o. three times daily. 11. Folic acid 1 mg p.o. daily. 12. [place] 5/325 mg one tablet p.o. q.4 h. p.r.n. 13. Lactulose 20 g p.o. three times daily. 14. Losartan 50 mg p.o. daily. 15. Metformin 500 mg p.o. twice daily. 16. Remeron 15 mg p.o. at bedtime. 17. Multivitamin p.o. daily. 18. Omeprazole 20 mg p.o. daily. 19. Protonix 40 mg p.o. daily. 20. Rifampin 300 mg p.o. twice daily. 21. Zoloft 100 mg p.o. daily. ALLERGIES: Latex and quinine. SOCIAL HISTORY: The patient is a Jehovah's witness. The patient is . The patient denies tobacco or alcohol use. REVIEW OF SYSTEMS: CONSTITUTIONAL: The patient denies weight loss or weight gain. The patient denies fevers or chills. HEENT: The patient denies ear or throat pain. The patient denies headache. CARDIOVASCULAR: The patient denies palpitations or chest pain. CHEST: The patient denies wheeze or shortness of breath. ABDOMEN: The patient complains of diffuse abdominal pain. The patient complains of diarrhea as above. The patient denies constipation. The patient denies nausea or vomiting. NEUROMUSCULAR: The patient has left hemiparesis as above. The patient denies seizures or generalized weakness. PHYSICAL EXAMINATION: GENERAL: The patient is a well-developed, well-nourished, female, in no apparent distress. VITAL SIGNS: Temperature 97.7 degrees, respirations 19, pulse 82, and blood pressure 146/83. HEENT: Eyes, pupils are equal and responsive to light and accommodation. Extraocular movements are intact. NECK: Supple without lymphadenopathy. CHEST: Lungs are clear to auscultation bilaterally without wheezes or rales. CARDIOVASCULAR: Regular rate. S1 and S2 are normal without murmurs, rubs, or gallops. ABDOMEN: Soft, nontender, and nondistended. Positive bowel sounds. No evidence of hepatosplenomegaly. Currently, no rebound or guarding noted. EXTREMITIES: Negative for clubbing, cyanosis, or edema. RECTAL/GENITAL: Refused. NEUROLOGIC: Cranial nerves II through XII are grossly intact without focal deficits. Motor strength is 3/5 on the left and 4/5 on the right. Deep tendon reflexes are 2+ plantar. LABORATORY AND DIAGNOSTIC DATA: WBC 3.9, hemoglobin 8.3, hematocrit 27.0, and platelets 290,000. Sodium 142, potassium 3.7, chloride 110, CO2 24, BUN 16, creatinine 0.7 and glucose 135. Chest x-ray is pending. ASSESSMENT: This is a 76-year-old, female with, 1. Diarrhea. 2. Dehydration. 3. Diabetes type 2. 4. Hypertension. 5. History of cerebrovascular disease. 6. Left hemiparesis. 7. Coronary artery disease. 8. History of congestive heart failure. 9. Hypercholesterolemia. 10. History of deep venous thrombosis. TREATMENT: 1. Diarrhea/dehydration. A Gastroenterology consultation has been obtained with Dr. Aquilino Diaz. We will follow recommendation of Dr. Diaz. Clostridium difficile toxin is pending. 2. Hypertension. Continue Coreg as above. 3. Cerebrovascular disease/left hemiparesis. 4. Coronary artery disease. Continue aspirin and Plavix as above. 5. Congestive heart failure. 6. Hypercholesterolemia. Continue Lipitor as above. 7. Deep venous thrombosis, history. Lorne Rios M.D. DR: CLIFFORD JOB#: [id number] CC:
[2017-11-16 04:00] VITALS: BP 124/72
[2017-11-16] MEDS: NovoLOG Insulin Flexpen SUBQ SCH ×4 (06:02→21:00)
[2017-11-16 08:00] VITALS: BP 145/88
[2017-11-16] MEDS: Losartan 50mg tab ORAL SCH (09:30)
[2017-11-16] MEDS: Donepezil 5mg Tab ORAL SCH (09:30)
[2017-11-16] MEDS: Aspirin EC 81mg tab ORAL SCH (09:30)
[2017-11-16] MEDS: metFORMIN 500mg tab ORAL SCH ×2 (09:30→18:20)
[2017-11-16] MEDS: Sertraline 100mg tab ORAL SCH (09:30)
--- NOTE | 2017-11-16 10:17 | GI Initial Consult Note ---
History of Present Illness General Date patient seen: Nov 16, 2017 Time patient seen: 10:06 Reason for Hospitalization: Nausea, Vomiting, and Diarrhea Referring physician: LORI RAMIREZ Reason for Consultation: ANEMIA / COLITIS Present Illness HPI This patient is accompanied by her daughter. 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 She also has a history of severe anemia that requires Procrit and iron supplementation. The daughter reports that she has had recurrent diarrhea for the past week. She states that it is nonbloody. There has been no fever or chills. There has been no nausea or vomiting. However, she has had decreased appetite. She denies pain. There has been no travel. She has noted that she has been somewhat weaker than usual. The patient is Anglican and declines all blood products. The patient herself has no complaints and is requesting to go home. GI consulted for colitis, anemia. ROS limited, AMS but has no general complaints at this time. Pt seen, awake alert NAD with no active s/sx of N/V/ D. Endoscopic history in 2013, see summary below. Patient presents today with severe anemia and recurrent diarrhea. The patient is a [employer] and declines all blood products. DATE OF PROCEDURE: 06/15/2014 PROCEDURE PERFORMED: Upper endoscopy with biopsy and colonoscopy. SUMMARY OF FINDINGS: 1. A solitary ulcer in the distal esophagus, possibly pill induced. 2. Gastritis, status post biopsy. 3. Duodenal diverticulum. 4. A scattered diverticulosis in the left colon. 5. Internal hemorrhoids. Home Meds Reported Medications Atorvastatin Calcium* (ATORVASTATIN CALCIUM*) 40 Mg Tablet, 40 MG ORAL BEDTIME 11/14/17 Acetaminophen With Codeine (T#3) (TYLENOL #3 TAB*) Y Tab, 1 TAB ORAL DAILY Y for For Pain 11/14/17 Mirtazapine* (MIRTAZAPINE*) 15 Mg Tablet, 30 MG ORAL BEDTIME 11/14/17 Epoetin Barak (PROCRIT) 10,000 Unit/1 Ml Vial, 70874 UNIT SUBQ 3XW, VIAL 11/14/17 Ranitidine Hcl* (ZANTAC*) 150 Mg Tablet, 150 MG ORAL TWICE A DAY, TAB 11/14/17 Aspirin* (ASPIR 81*) 81 Mg Tablet.dr, 81 MG ORAL DAILY, TAB 11/14/17 Vancomycin/0.9 % Sod Chloride (Vanco 1 Gram/250 ml-0.9% NaCl) 1 Gm/250 Ml Plast..bag, 1 GM IV DAILY, BAG 05/16/17 Rifampin* (RIFADIN*) 150 Mg Capsule, 300 MG ORAL Q12HR, #7 CAP 0 Refills 05/16/17 Vancomycin Hcl/D5w (VANCOMYCIN-D5W 1 G/250 ML) 1 Gm/250 Ml Plast..bag, 1 GM IVPB Q24H for 42 Days, BAG 05/16/17 Ceftriaxone Na/Dextrose,Iso (CEFTRIAXONE 1 GM PIGGYBACK) 1 Gm/50 Ml Froz.piggy, 1 GM IV DAILY, BAG 05/10/17 Ceftriaxone Na/Dextrose,Iso (CEFTRIAXONE 1 GM PIGGYBACK) 1 Gm/50 Ml Froz.piggy, 1 GM IV, BAG 05/10/17 Iron Sucrose Complex (VENOFER) 50 Mg/2.5 Ml Vial, 100 MG IV QHS, VIAL 01/30/17 Alprazolam* (XANAX*) 0.25 Mg Tablet, 0.25 MG ORAL EVERY 6 HOURS Y for For Anxiety, TAB 01/23/17 Ascorbic Acid* (VITAMIN C*) 500 Mg Tablet, 500 MG ORAL THREE TIMES A DAY, TAB 01/23/17 Mirtazapine* (REMERON*) 15 Mg Tablet, 15 MG ORAL BEDTIME, TAB 01/23/17 Omeprazole (OMEPRAZOLE) 20 Mg Tablet.dr, 20 MG ORAL DAILY, TAB 01/23/17 Hydrocodone Bit/Acetaminophen 5-325* (NORCO 5-325 TABLET*) 1 Each Tablet, 1 TAB ORAL Q8HR Y for For Pain, TAB 01/23/17 Multivitamin With Minerals (MULTIVITAMINS WITH MINERALS*) 1 Each Tablet, 1 TAB ORAL DAILY, TAB 01/23/17 Acetaminophen (Acetaminophen) 650 Mg/20.3 Ml Solution, 650 MG ORAL Q6H Y for Prn Headache/Temp > 101, ML 0 Refills 01/23/17 Pantoprazole* (PROTONIX*) 40 Mg Tablet.dr, 40 MG ORAL DAILY, TAB 01/03/17 Ondansetron (Zofran) 4 Mg Tablet, 4 MG ORAL Q6H Y for Nausea & Vomiting, TAB 01/03/17 Losartan Potassium* (COZAAR*) 50 Mg Tablet, 50 MG ORAL DAILY, TAB 01/03/17 Lactulose (LACTULOSE*) 20 Gm/30 Ml Solution, 20 ML ORAL THREE TIMES A DAY Y for PRN, ML 0 Refills 01/03/17 Folic Acid* (FOLIC ACID*) 1 Mg Tablet, 1 MG ORAL DAILY, TAB 01/03/17 Ferrous Sulfate (Feosol) 325 Mg Tablet, 325 MG PO THREE TIMES A DAY, TAB 01/03/17 Epoetin Barak (PROCRIT) 10,000 Unit/1 Ml Vial, 54326 UNIT SUBQ ONCE A WEEK, VIAL 01/03/17 Bisacodyl* (DULCOLAX*) 5 Mg Tablet.dr, 5 MG ORAL DAILY Y for Constipation, #10 TAB 0 Refills 01/03/17 Atorvastatin Calcium* (LIPITOR*) 80 Mg Tablet, 80 MG ORAL BEDTIME, TAB 01/03/17 Clopidogrel* (CLOPIDOGREL*) 75 Mg Tablet, 75 MG ORAL DAILY, TAB 11/27/16 Metformin Hcl* (METFORMIN HCL*) 500 Mg Tablet, 500 MG ORAL TWICE A DAY, TAB 09/27/16 Donepezil Hcl* (DONEPEZIL HCL*) 5 Mg Tab.rapdis, 5 MG ORAL DAILY, TAB 08/01/16 Hydrocodone Bit/Acetaminophen 5-325* (NORCO 5-325 TABLET*) 1 Each Tablet, 1 TAB ORAL Q6HR Y for For Pain, TAB 07/21/15 Sertraline Hcl* (ZOLOFT*) 100 Mg Tablet, 100 MG ORAL DAILY, TAB 05/23/15 Temazepam (TEMAZEPAM*) 15 Mg Capsule, 15 MG ORAL BEDTIME Y for Insomnia, #30 CAP 0 Refills 05/23/15 Carvedilol* (CARVEDILOL*) 3.125 Mg Tablet, 3.125 MG ORAL BID, TAB 05/23/15 Discontinued Reported Medications Epoetin Barak (PROCRIT) 10,000 Unit/1 Ml Vial, 21689 UNIT SUBQ Q48hr, VIAL 01/30/17 Med list reviewed/reconciled: Yes Allergies: Coded Allergies: LATEX (Unverified Allergy, Mild, Rash, 09/03/14) QUININE (Unverified Allergy, Unknown, Rash Hives, 05/23/15) Quinine Sulfate Patient History Limited by: medical condition History Provided By: Medical Record PMH Narrative Past Medical History: see triage record, HTN, OK, CAD, CHF, CVA/TIA, dementia Social History: Denies: smoking, alcohol use, drug use Reviewed Nursing Documentation: PMH: Agreed, PSxH: Agreed Nursing Documentation-PMH Hx Cardiac Problems: Yes Hx Hypertension: Yes Hx Pacemaker: Yes Hx Asthma: Yes Hx Diabetes: Yes Hx Cancer: No Hx Gastrointestinal Problems: Yes - gastritis Hx Neurological Problems: Yes Hx Cerebrovascular Accident: Yes Hx Dementia: Yes Hx Vertigo: Yes Hx Dizziness: Yes Hx Syncope: Yes Hx Headaches: Yes Hx Weakness: Yes Hx Fatigue: Yes Review of Systems All Other Systems: negative except mentioned in HPI Physical Exam Vital Signs Date Time Temp Pulse Resp B/P (MAP) Pulse Ox O2 Delivery O2 Flow Rate FiO2 11/14/17 15:11 98.2 78 16 123/80 98 98.2 11/14/17 19:25 Room Air Sp02 EP Interpretation: reviewed, normal Labs Laboratory Tests Test 11/15/17 20:45 Hemoglobin A Pending Hemoglobin A2 Pending Hemoglobin C Pending Hemoglobin F () Pending Hemoglobin S Pending Variant Hemoglobin Pending Hemoglobin Electrophoresis Interp Pending Hemoglobin Interpretation Pending Hemoglobin Solubility Pending Haptoglobin Pending Jak2 V617F Mutation Detection Pending JAK2 V617F Mutation Background Pending JAK2 V617F Reviewed By Pending Methylmalonic Acid Pending General Appearance: well appearing, no apparent distress, alert Head: normocephalic EENT: PERRL/EOMI, normal ENT inspection Neck: supple Respiratory: normal breath sounds, no respiratory distress Cardiovascular: normal rate Gastrointestinal: normal inspection, non tender, soft, normal bowel sounds, non -distended Rectal: deferred Genitourinary: no CVA tenderness Musculoskeletal: normal inspection, back normal Neurologic: normal inspection, alert, oriented x3, responsive Psychiatric: normal inspection, judgement/insight normal, memory normal Skin: normal inspection, normal color, no rash, warm/dry, palpation normal, well hydrated Lymphatic: normal inspection, no adenopathy Current Medications Current Medications Medications (Trade) Dose Ordered Sig/Don Route PRN Reason Start Time Stop Time Status Last Admin Dose Admin Acetaminophen/ Hydrocodone Bitart ([place] 5/325) 1 tab Q6HR PRN ORAL For Pain 11/14/17 23:00 11/21/17 22:59 Aspirin (Ecotrin) 81 mg DAILY ORAL 11/15/17 09:00 12/15/17 08:59 11/16/17 09:30 Atorvastatin Calcium (Lipitor) 80 mg BEDTIME ORAL 11/15/17 21:00 12/15/17 20:59 11/15/17 21:10 Carvedilol (Coreg) 3.125 mg BID ORAL 11/15/17 00:00 12/15/17 00:00 11/16/17 09:33 Ciprofloxacin 200 ml @ 200 mls/hr Q12HR IV 11/15/17 09:00 11/22/17 08:59 11/15/17 21:09 Dextrose (Dextrose 50%) STAT PRN IV Hypoglycemia 11/14/17 23:00 12/14/17 22:59 Diphenoxylate HCl/ Atropine (Lomotil) 2.5 mg Q6HR PRN ORAL Diarrhea 11/14/17 23:00 12/14/17 22:59 Donepezil HCl (Aricept) 5 mg DAILY ORAL 11/15/17 09:00 12/15/17 08:59 11/16/17 09:30 Epoetin Barak (Procrit (for non ESRD use)) 10,000 units Q48H SUBQ 11/16/17 21:00 12/16/17 20:59 Ferrous Sulfate (Feosol) 325 mg THREE TIMES A DAY ORAL 11/20/17 09:00 12/20/17 08:59 Folic Acid (Folate) 1 mg DAILY ORAL 11/16/17 09:00 12/16/17 08:59 11/16/17 09:30 Insulin Aspart (NovoLOG) BEFORE MEALS AND HS SUBQ 11/15/17 06:30 12/15/17 06:29 11/15/17 21:14 Iron Sucrose 100 mg/Sodium Chloride 60 ml @ 240 mls/hr BEDTIME IV 11/15/17 21:00 11/19/17 21:14 11/15/17 21:09 Losartan Potassium (Cozaar) 50 mg DAILY ORAL 11/15/17 09:00 12/15/17 08:59 11/16/17 09:30 Metformin HCl (Glucophage) 500 mg TWICE A DAY ORAL 11/15/17 09:00 12/15/17 08:59 11/16/17 09:30 Metronidazole 100 ml @ 100 mls/hr Q8HR IVPB 11/15/17 06:00 11/22/17 05:59 11/16/17 05:50 Mirtazapine (Remeron) 30 mg BEDTIME ORAL 11/15/17 21:00 12/15/17 20:59 11/15/17 21:13 Ondansetron HCl (Zofran) 4 mg Q4HR PRN IVP Nausea & Vomiting 11/16/17 00:00 12/16/17 00:00 Sertraline HCl (Zoloft) 100 mg DAILY ORAL 11/15/17 09:00 12/15/17 08:59 11/16/17 09:30 Sodium Chloride 1,000 ml @ 75 mls/hr [id number] IV 11/14/17 23:00 12/14/17 22:59 11/16/17 02:22 GI: Plan Problems: (1) Patient is Anglican (2) Nausea, vomiting, and diarrhea (3) Anemia (4) colitis (5) Iron deficiency anemia Plan DATE OF PROCEDURE: 06/15/2014 PROCEDURE PERFORMED: Upper endoscopy with biopsy and colonoscopy. SUMMARY OF FINDINGS: 1. A solitary ulcer in the distal esophagus, possibly pill induced. 2. Gastritis, status post biopsy. 3. Duodenal diverticulum. 4. A scattered diverticulosis in the left colon. 5. Internal hemorrhoids. home medication reconciliation noted >> patient is on Plavix but none given since inpatient admission. EGD/Colonoscopy scheduled for today. anemia work up OB stool r/o GI bleed trend H&H, patient is religion bowel regime ppi fu labs will follow with additional recs Discussed with Dr. Diaz. Thank you for this patient referral, we will follow. Jelly Lang N.P. Nov 16, 2017 10:17
--- NOTE | 2017-11-16 10:27 | Diagnostic Imaging Report ---
APPROVED REPORT CPT Code: 43517 Present Symptoms Comments: R/O DVT Past History DVT :Bilateral RIGHT LEG: Venous imaging reveals recanalized chronic thrombus in the common femoral, superficial femoral, popliteal and calf veins. The greater saphenous vein is also within normal limits. Doppler indicates normal spontaneous flow within these segments. LEFT LEG: Venous imaging reveals recanalized chronic thrombus in the superficial femoral vein. Large collateral vein noted anterior to the superficial femoral artery. Imaging also reveals patency of the common femoral, popliteal and calf veins. The greater saphenous vein is also within normal limits. Doppler indicates normal spontaneous flow within these segments. There is no evidence of acute deep vein thrombosis.
[2017-11-16 10:42] LABS: HEMATOCRIT 22.6 % (37.0-47.0); MEAN CORPUSCULAR VOLUME 79 FL (80-99); PLATELET COUNT 293 K/UL (150-450); RED BLOOD COUNT 2.86 M/UL (4.20-5.40); RED CELL DISTRIBUTION WIDTH 17.5 % (11.6-14.8); WHITE BLOOD COUNT 6.8 K/UL (4.8-10.8)
--- NOTE | 2017-11-16 10:58 | Diagnostic Imaging Report ---
Indication: Dyspnea Technique: One view of the chest Comparison: 05/04/2017 Findings: Lung infiltrates are clear. The heart size is upper limits of normal. The aorta is tortuous and ectatic. There is a left chest bifocal AICD again demonstrated. When upper quadrant surgical clips and an inferior vena cava filter are again demonstrated No significant change Impression: No acute process
[2017-11-16 11:01] LABS: INR 1.2 (0.9-1.1)
[2017-11-16 11:16] LABS: % IRON SATURATION 84 % (15-50); IRON 142 ug/dL (50-175); TOTAL IRON BINDING CAPACITY 169 ug/dL (250-450)
[2017-11-16 11:58] LABS: ALANINE AMINOTRANSFERASE 11 U/L (12-78); ALBUMIN 2.4 G/DL (3.4-5.0); ALBUMIN/GLOBULIN RATIO 0.8 (1.0-2.7); ALKALINE PHOSPHATASE 83 U/L (46-116); ANION GAP 8 mmol/L (5-15); ASPARTATE AMINO TRANSFERASE 17 U/L (15-37); BILIRUBIN,TOTAL 0.1 MG/DL (0.2-1.0); BLOOD UREA NITROGEN 11 mg/dL (7-18); CARBON DIOXIDE 22 MMOL/L (21-32); CHLORIDE 113 MMOL/L (98-107); CREATININE 0.6 MG/DL (0.55-1.30); FERRITIN 111 NG/ML (8-388); POTASSIUM 3.1 MMOL/L (3.5-5.1); SODIUM 143 MMOL/L (136-145)
[2017-11-16 12:00] VITALS: BP 135/95
--- NOTE | 2017-11-16 12:23 | Pre-Procedure Note/Attestation ---
Pre-Procedure Note/Attestation Complete Prior to Procedure Planned Procedure: not applicable Procedure Narrative: esophagogastroduodenoscopy and colonoscopy Indications for Procedure Pre-Operative Diagnosis: anemia, diarrhea Attestation I attest that I discussed the nature of the procedure; its benefits; risks and complications; and alternatives (and the risks and benefits of such alternatives ), prior to the procedure, with the patient (or the patient's legal community engagement representative). I attest that, if there was a reasonable possibility of needing a blood transfusion, the patient (or the patient's legal community engagement representative) was given the [facility] standardized written summary, pursuant to the Alex Taz Blood Safety Act ([place] Health and Safety Code # 1645, as amended). I attest that I re-evaluated the patient just prior to the surgery and that there has been no change in the patient's H&P, except as documented below: ORIANA CANALES Nov 16, 2017 12:23
--- NOTE | 2017-11-16 12:55 | GI Progress Note ---
Assessment/Plan Problems: (1) Nausea, vomiting, and diarrhea ICD Codes: R11.2 - Nausea with vomiting, unspecified; R19.7 - Diarrhea, unspecified SNOMED: 3085829 (2) Pacemaker ICD Codes: Z95.0 - Pacemaker SNOMED: 827279846 (3) Patient is Anglican ICD Codes: Z78.9 - Other specified health status SNOMED: 92006095 (4) Anemia ICD Codes: D64.9 - Anemia, unspecified SNOMED: 475448579 (5) colitis (6) Severe anemia ICD Codes: D64.9 - Anemia, unspecified SNOMED: 808368424 Status: doing well Status Narrative Discussed with Dr. Diaz. Assessment/Plan DATE OF PROCEDURE: 06/15/2014 PROCEDURE PERFORMED: Upper endoscopy with biopsy and colonoscopy. SUMMARY OF FINDINGS: 1. A solitary ulcer in the distal esophagus, possibly pill induced. 2. Gastritis, status post biopsy. 3. Duodenal diverticulum. 4. A scattered diverticulosis in the left colon. 5. Internal hemorrhoids. home medication reconciliation noted >> patient is on Plavix but none given since inpatient admission. EGD/Colonoscopy cancelled, unable to obtain peripheral line >> PICC ordered - rescheduled for sunday, ok to adv diet. - reprep for sunday anemia work up OB stool r/o GI bleed trend H&H, patient is anabaptist bowel regime ppi fu labs Subjective Gastrointestinal/Abdominal: Reports: no symptoms Objective Last 24 Hour Vital Signs Date Time Temp Pulse Resp B/P (MAP) Pulse Ox O2 Delivery O2 Flow Rate FiO2 11/16/17 09:33 70 145/88 11/16/17 09:30 145/88 11/16/17 08:00 97.9 70 19 145/88 97 Room Air 97.9 11/16/17 04:00 98.0 84 19 124/72 98 Room Air 98.0 11/16/17 00:00 98.2 83 20 168/96 98 Room Air 98.2 11/15/17 20:00 98.3 77 20 151/87 99 Room Air 98.3 11/15/17 17:39 86 140/87 11/15/17 16:00 97.6 86 20 140/87 98 Room Air 97.6 Intake and Output 11/15/17 11/16/17 19:00 07:00 Intake Total 1195 ml 375 ml Balance 1195 ml 375 ml Intake Oral 120 ml IV Total 1075 ml 375 ml # Voids 2 2 # Bowel Movements 3 4 Laboratory Tests Test 11/15/17 20:45 11/16/17 10:00 Hemoglobin A Pending Hemoglobin A2 Pending Hemoglobin C Pending Hemoglobin F () Pending Hemoglobin S Pending Variant Hemoglobin Pending Hemoglobin Electrophoresis Interp Pending Hemoglobin Interpretation Pending Hemoglobin Solubility Pending Haptoglobin Pending Jak2 V617F Mutation Detection Pending JAK2 V617F Mutation Background Pending JAK2 V617F Reviewed By Pending Methylmalonic Acid Pending White Blood Count 6.8 K/UL (4.8-10.8) Red Blood Count 2.86 M/UL (4.20-5.40) L Hemoglobin 7.0 G/DL (12.0-16.0) L Hematocrit 22.6 % (37.0-47.0) L Mean Corpuscular Volume 79 FL (80-99) L Mean Corpuscular Hemoglobin 24.3 PG (27.0-31.0) L Mean Corpuscular Hemoglobin Concent 30.7 G/DL (32.0-36.0) L Red Cell Distribution Width 17.5 % (11.6-14.8) H Platelet Count 293 K/UL (150-450) Mean Platelet Volume 6.3 FL (6.5-10.1) L Neutrophils (%) (Auto) % (45.0-75.0) Lymphocytes (%) (Auto) % (20.0-45.0) Monocytes (%) (Auto) % (1.0-10.0) Eosinophils (%) (Auto) % (0.0-3.0) Basophils (%) (Auto) % (0.0-2.0) Differential Total Cells Counted 100 Neutrophils % (Manual) 88 % (45-75) H Lymphocytes % (Manual) 10 % (20-45) L Monocytes % (Manual) 2 % (1-10) Eosinophils % (Manual) 0 % (0-3) Basophils % (Manual) 0 % (0-2) Band Neutrophils 0 % (0-8) Platelet Estimate Adequate Platelet Morphology Normal Hypochromasia 1+ Anisocytosis 1+ Microcytosis 1+ Reticulocyte Count 1.0 % (0.0-2.0) Prothrombin Time 12.9 SEC (9.30-11.50) H Prothromb Time International Ratio 1.2 (0.9-1.1) H Activated Partial Thromboplast Time 31 SEC (23-33) Sodium Level 143 MMOL/L (136-145) Potassium Level 3.1 MMOL/L (3.5-5.1) L Chloride Level 113 MMOL/L (98-107) H Carbon Dioxide Level 22 MMOL/L (21-32) Anion Gap 8 mmol/L (5-15) Blood Urea Nitrogen 11 mg/dL (7-18) Creatinine 0.6 MG/DL (0.55-1.30) Estimat Glomerular Filtration Rate mL/min (>60) Glucose Level 88 MG/DL (74-106) Calcium Level 8.0 MG/DL (8.5-10.1) L Iron Level 142 ug/dL (50-175) Total Iron Binding Capacity 169 ug/dL (250-450) L Percent Iron Saturation 84 % (15-50) H Unsaturated Iron Binding 27 ug/dL (112-346) L Ferritin 111 NG/ML (8-388) Total Bilirubin 0.1 MG/DL (0.2-1.0) L Aspartate Amino Transf (AST/SGOT) 17 U/L (15-37) Alanine Aminotransferase (ALT/SGPT) 11 U/L (12-78) L Alkaline Phosphatase 83 U/L (46-116) Pro-B-Type Natriuretic Peptide 3878 pg/mL (0-125) H Total Protein 5.4 G/DL (6.4-8.2) L Albumin 2.4 G/DL (3.4-5.0) L Globulin 3.0 g/dL Albumin/Globulin Ratio 0.8 (1.0-2.7) L Vitamin B12 Level Pending Folate Pending Thyroid Stimulating Hormone (TSH) 3.301 uiU/mL (0.358-3.740) Free Thyroxine Pending Height (Feet): 5 Height (Inches): 3.00 Weight (Pounds): 120 General Appearance: WD/WN, no apparent distress, alert Cardiovascular: normal rate Respiratory/Chest: normal breath sounds, no respiratory distress Abdominal Exam: normal bowel sounds, non tender, soft Extremities: normal range of motion, non-tender Lang,Jelyl Jean N.P. Nov 16, 2017 12:55
[2017-11-16] MEDS ORDERED: Heparin 2000 units/Ns 1000ml INJ PRN ×2 (13:00→16:00)
[2017-11-16] MEDS ORDERED: Lidocaine 1% MPF 10mg/ml 5ml INJ PRN ×2 (13:00→16:00)
--- NOTE | 2017-11-16 14:49 | Pulmonology Progress Note ---
Assessment/Plan Problems: (1) Anemia (2) colitis (3) Asthma (4) CVA (cerebrovascular accident) (5) Diabetes mellitus (6) AICD (automatic cardioverter/defibrillator) present Assessment/Plan on Epogen, Venofer, vitamin check h/h gi f/u iv fluids sliding sclae respiratory treatment Subjective Constitutional: Reports: no symptoms HEENT: Repors: no symptoms Respiratory: Reports: no symptoms Allergies: Coded Allergies: LATEX (Unverified Allergy, Mild, Rash, 09/03/14) QUININE (Unverified Allergy, Unknown, Rash Hives, 05/23/15) Quinine Sulfate Objective Last 24 Hour Vital Signs Date Time Temp Pulse Resp B/P (MAP) Pulse Ox O2 Delivery O2 Flow Rate FiO2 11/16/17 09:33 70 145/88 11/16/17 09:30 145/88 11/16/17 08:00 97.9 70 19 145/88 97 Room Air 97.9 11/16/17 04:00 98.0 84 19 124/72 98 Room Air 98.0 11/16/17 00:00 98.2 83 20 168/96 98 Room Air 98.2 11/15/17 20:00 98.3 77 20 151/87 99 Room Air 98.3 11/15/17 17:39 86 140/87 11/15/17 16:00 97.6 86 20 140/87 98 Room Air 97.6 Intake and Output 11/15/17 11/16/17 19:00 07:00 Intake Total 1195 ml 375 ml Balance 1195 ml 375 ml Intake Oral 120 ml IV Total 1075 ml 375 ml # Voids 2 2 # Bowel Movements 3 4 Objective General Appearance: WD/WN HEENT: normocephalic, atraumatic Respiratory/Chest: chest wall non-tender, lungs clear Cardiovascular: normal peripheral pulses, normal rate Abdomen: normal bowel sounds, soft, non tender Genitourinary: normal external genitalia Extremities: no cyanosis Skin: no rash, no ulcers Microbiology Date/Time Source Procedure Growth Status 11/15/17 02:30 Stool Clostridium difficile Toxin Assay - Final Complete 11/15/17 02:30 Anus Stool Culture - Preliminary NORMAL FECAL PERRY. Resulted Laboratory Tests 11/15/17 20:45: Hemoglobin A [Pending], Hemoglobin A2 [Pending], Hemoglobin C [Pending], Hemoglobin F () [Pending], Hemoglobin S [Pending], Variant Hemoglobin [ Pending], Hemoglobin Electrophoresis Interp [Pending], Hemoglobin Interpretation [Pending], Hemoglobin Solubility [Pending], Haptoglobin [Pending] , Jak2 V617F Mutation Detection [Pending], JAK2 V617F Mutation Background [ Pending], JAK2 V617F Reviewed By [Pending], Methylmalonic Acid [Pending] 11/16/17 10:00: White Blood Count 6.8, Red Blood Count 2.86L, Hemoglobin 7.0L, Hematocrit 22.6L , Mean Corpuscular Volume 79L, Mean Corpuscular Hemoglobin 24.3L, Mean Corpuscular Hemoglobin Concent 30.7L, Red Cell Distribution Width 17.5H, Platelet Count 293, Mean Platelet Volume 6.3L, Neutrophils (%) (Auto) , Lymphocytes (%) (Auto) , Monocytes (%) (Auto) , Eosinophils (%) (Auto) , Basophils (%) (Auto) , Differential Total Cells Counted 100, Neutrophils % ( Manual) 88H, Lymphocytes % (Manual) 10L, Monocytes % (Manual) 2, Eosinophils % ( Manual) 0, Basophils % (Manual) 0, Band Neutrophils 0, Platelet Estimate Adequate, Platelet Morphology Normal, Hypochromasia 1+, Anisocytosis 1+, Microcytosis 1+, Reticulocyte Count 1.0, Prothrombin Time 12.9H, Prothromb Time International Ratio 1.2H, Activated Partial Thromboplast Time 31, Sodium Level 143, Potassium Level 3.1L, Chloride Level 113H, Carbon Dioxide Level 22, Anion Gap 8, Blood Urea Nitrogen 11, Creatinine 0.6, Estimat Glomerular Filtration Rate , Glucose Level 88, Calcium Level 8.0L, Iron Level 142, Total Iron Binding Capacity 169L, Percent Iron Saturation 84H, Unsaturated Iron Binding 27L, Ferritin 111, Total Bilirubin 0.1L, Aspartate Amino Transf (AST/SGOT) 17, Alanine Aminotransferase (ALT/SGPT) 11L, Alkaline Phosphatase 83, Pro-B-Type Natriuretic Peptide 3878H, Total Protein 5.4L, Albumin 2.4L, Globulin 3.0, Albumin/Globulin Ratio 0.8L, Vitamin B12 Level > 2000H, Folate 17.4, Thyroid Stimulating Hormone (TSH) 3.301, Free Thyroxine 1.23 Current Medications Medications (Trade) Dose Ordered Sig/Don Route PRN Reason Start Time Stop Time Status Last Admin Dose Admin Acetaminophen/ Hydrocodone Bitart ([place] 5/325) 1 tab Q6HR PRN ORAL For Pain 11/14/17 23:00 11/21/17 22:59 Aspirin (Ecotrin) 81 mg DAILY ORAL 11/15/17 09:00 12/15/17 08:59 11/16/17 09:30 Atorvastatin Calcium (Lipitor) 80 mg BEDTIME ORAL 11/15/17 21:00 12/15/17 20:59 11/15/17 21:10 Bisacodyl (Dulcolax) 10 mg ONCE ONCE ORAL 11/18/17 16:00 11/18/17 16:01 Carvedilol (Coreg) 3.125 mg BID ORAL 11/15/17 00:00 12/15/17 00:00 11/16/17 09:33 Chlorhexidine Gluconate (Merari-Hex 2%) 1 applic DAILY@2000 TOPIC 11/16/17 20:00 12/16/17 19:59 Ciprofloxacin 200 ml @ 200 mls/hr Q12HR IV 11/15/17 09:00 11/22/17 08:59 11/15/17 21:09 Dextrose (Dextrose 50%) STAT PRN IV Hypoglycemia 11/14/17 23:00 12/14/17 22:59 Diphenoxylate HCl/ Atropine (Lomotil) 2.5 mg Q6HR PRN ORAL Diarrhea 11/14/17 23:00 12/14/17 22:59 Donepezil HCl (Aricept) 5 mg DAILY ORAL 11/15/17 09:00 12/15/17 08:59 11/16/17 09:30 Epoetin Barak (Procrit (for non ESRD use)) 10,000 units Q48H SUBQ 11/16/17 21:00 12/16/17 20:59 Ferrous Sulfate (Feosol) 325 mg THREE TIMES A DAY ORAL 11/20/17 09:00 12/20/17 08:59 Folic Acid (Folate) 1 mg DAILY ORAL 11/16/17 09:00 12/16/17 08:59 11/16/17 09:30 Heparin Sodium/ Sodium Chloride (Heparin 2000 units/Ns 1000ml premix) 2,000 unit ONCE PRN INJ PICC LINE PLACEMENT 11/16/17 13:00 12/16/17 12:59 Insulin Aspart (NovoLOG) BEFORE MEALS AND HS SUBQ 11/15/17 06:30 12/15/17 06:29 11/15/17 21:14 Iron Sucrose 100 mg/Sodium Chloride 60 ml @ 240 mls/hr BEDTIME IV 11/15/17 21:00 11/19/17 21:14 11/15/17 21:09 Lidocaine (Xylocaine 1% MPF 5ml) 30 ml ONCE PRN INJ PICC LINE PLACEMENT 11/16/17 13:00 12/16/17 12:59 Losartan Potassium (Cozaar) 50 mg DAILY ORAL 11/15/17 09:00 12/15/17 08:59 11/16/17 09:30 Metformin HCl (Glucophage) 500 mg TWICE A DAY ORAL 11/15/17 09:00 12/15/17 08:59 11/16/17 09:30 Metronidazole 100 ml @ 100 mls/hr Q8HR IVPB 11/15/17 06:00 11/22/17 05:59 11/16/17 05:50 Mirtazapine (Remeron) 30 mg BEDTIME ORAL 11/15/17 21:00 12/15/17 20:59 11/15/17 21:13 Ondansetron HCl (Zofran) 4 mg Q4HR PRN IVP Nausea & Vomiting 11/16/17 00:00 12/16/17 00:00 Polyethylene Glycol (Miralax) 238 gm ONCE ONCE ORAL 11/18/17 16:00 11/18/17 16:01 Sertraline HCl (Zoloft) 100 mg DAILY ORAL 11/15/17 09:00 12/15/17 08:59 11/16/17 09:30 Sodium Chloride 1,000 ml @ 75 mls/hr [id number] IV 11/14/17 23:00 12/14/17 22:59 11/16/17 02:22 MARLENY TURPIN Nov 16, 2017 14:49
[2017-11-16 16:00] VITALS: BP 127/70
[2017-11-16] MEDS ORDERED: Tubing IV Secondary IV ONE (16:55)
[2017-11-16] MEDS ORDERED: NS 275ml ONE (16:55)
--- NOTE | 2017-11-16 18:35 | Diagnostic Imaging Report ---
Indications: Needs long-term IV access Technique: Ultrasound confirms patent compressible right cephalic vein. Total sterile technique, including sterile probe cover and sterile gel, hat, mask,, sterile gown, large sterile drape, and preparation with 2% chlorhexidine utilized. Local anesthesia with 1% lidocaine. Under real-time ultrasound guidance, puncture cephalic vein using 21-gauge needle, documented and archived, passage 0.018 guidewire under direct fluoroscopy, which was used to determine appropriate catheter length, exchange for 5 Congolese peel-away sheath. 5 Congolese Bard dual-lumen power PICC cut to 37 cm. It was inserted through the peel-away sheath. Peel-away sheath and guidewire removed. Catheter fixed to the skin. Both catheter ports aspirated and flushed. Patient tolerated procedure well, without immediate complication. Digital radiograph documents satisfactory catheter tip position, at the cavoatrial junction. Total fluoroscopy time 1.3 minutes. Total dose area product 0.1 dGycm2 Impression: Successful placement of right arm PICC under sonographic and fluoroscopic guidance, as described above.
--- NOTE | 2017-11-16 19:50 | Internal Med Progress Note ---
Subjective Date of Service: Nov 16, 2017 Physician Name Delfin Martinez Attending Physician Lobito Jones MD Current Medications Medications (Trade) Dose Ordered Sig/Don Route PRN Reason Start Time Stop Time Status Last Admin Dose Admin Acetaminophen/ Hydrocodone Bitart ([place] 5/325) 1 tab Q6HR PRN ORAL For Pain 11/14/17 23:00 11/21/17 22:59 Aspirin (Ecotrin) 81 mg DAILY ORAL 11/15/17 09:00 12/15/17 08:59 11/16/17 09:30 Atorvastatin Calcium (Lipitor) 80 mg BEDTIME ORAL 11/15/17 21:00 12/15/17 20:59 11/15/17 21:10 Bisacodyl (Dulcolax) 10 mg ONCE ONCE ORAL 11/18/17 16:00 11/18/17 16:01 Carvedilol (Coreg) 3.125 mg BID ORAL 11/15/17 00:00 12/15/17 00:00 11/16/17 18:20 Chlorhexidine Gluconate (Merari-Hex 2%) 1 applic DAILY@2000 TOPIC 11/16/17 20:00 12/16/17 19:59 Ciprofloxacin 200 ml @ 200 mls/hr Q12HR IV 11/15/17 09:00 11/22/17 08:59 11/15/17 21:09 Dextrose (Dextrose 50%) STAT PRN IV Hypoglycemia 11/14/17 23:00 12/14/17 22:59 Diphenoxylate HCl/ Atropine (Lomotil) 2.5 mg Q6HR PRN ORAL Diarrhea 11/14/17 23:00 12/14/17 22:59 Donepezil HCl (Aricept) 5 mg DAILY ORAL 11/15/17 09:00 12/15/17 08:59 11/16/17 09:30 Epoetin Barak (Procrit (for non ESRD use)) 10,000 units Q48H SUBQ 11/16/17 21:00 12/16/17 20:59 Ferrous Sulfate (Feosol) 325 mg THREE TIMES A DAY ORAL 11/20/17 09:00 12/20/17 08:59 Folic Acid (Folate) 1 mg DAILY ORAL 11/16/17 09:00 12/16/17 08:59 11/16/17 09:30 Heparin Sodium/ Sodium Chloride (Heparin 2000 units/Ns 1000ml premix) 2,000 unit ONCE PRN INJ PICC LINE PLACEMENT 11/16/17 16:00 Insulin Aspart (NovoLOG) BEFORE MEALS AND HS SUBQ 11/15/17 06:30 12/15/17 06:29 11/15/17 21:14 Iron Sucrose 100 mg/Sodium Chloride 60 ml @ 240 mls/hr BEDTIME IV 11/15/17 21:00 11/19/17 21:14 11/15/17 21:09 Losartan Potassium (Cozaar) 50 mg DAILY ORAL 11/15/17 09:00 12/15/17 08:59 11/16/17 09:30 Metformin HCl (Glucophage) 500 mg TWICE A DAY ORAL 11/15/17 09:00 12/15/17 08:59 11/16/17 18:20 Metronidazole 100 ml @ 100 mls/hr Q8HR IVPB 11/15/17 06:00 11/22/17 05:59 11/16/17 05:50 Mirtazapine (Remeron) 30 mg BEDTIME ORAL 11/15/17 21:00 12/15/17 20:59 11/15/17 21:13 Ondansetron HCl (Zofran) 4 mg Q4HR PRN IVP Nausea & Vomiting 11/16/17 00:00 12/16/17 00:00 Polyethylene Glycol (Miralax) 238 gm ONCE ONCE ORAL 11/18/17 16:00 11/18/17 16:01 Sertraline HCl (Zoloft) 100 mg DAILY ORAL 11/15/17 09:00 12/15/17 08:59 11/16/17 09:30 Sodium Chloride 1,000 ml @ 75 mls/hr [id number] IV 11/14/17 23:00 12/14/17 22:59 11/16/17 02:22 Allergies: Coded Allergies: LATEX (Unverified Allergy, Mild, Rash, 09/03/14) QUININE (Unverified Allergy, Unknown, Rash Hives, 05/23/15) Quinine Sulfate ROS Limited/Unobtainable: Yes Subjective 76 YO F admitted with diarrhea and dehydration. Endoscopy/colonoscopy cancelled due to lack of IV access. Cover for Int Med-Dr Jones Objective Last Vital Signs Date Time Temp Pulse Resp B/P (MAP) Pulse Ox O2 Delivery O2 Flow Rate FiO2 11/16/17 18:20 78 127/70 11/16/17 16:00 97.5 20 99 97.5 11/16/17 12:00 Room Air General Appearance: mild distress, thin EENT: PERRL/EOMI, normal ENT inspection Neck: non-tender, normal alignment, supple Cardiovascular: normal peripheral pulses, normal rate, regular rhythm, no gallop/murmur, no JVD Respiratory/Chest: chest wall non-tender, lungs clear, normal breath sounds, no respiratory distress, no accessory muscle use Abdomen: normal bowel sounds, no mass, abnormal bowel sounds, decreased bowel sounds, tender Extremities: normal range of motion, non-tender 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, no motor/sensory deficits Skin: normal pigmentation, warm/dry Laboratory Tests Test 11/15/17 20:45 11/16/17 10:00 Hemoglobin A Pending Hemoglobin A2 Pending Hemoglobin C Pending Hemoglobin F () Pending Hemoglobin S Pending Variant Hemoglobin Pending Hemoglobin Electrophoresis Interp Pending Hemoglobin Interpretation Pending Hemoglobin Solubility Pending Haptoglobin Pending Jak2 [id number] Mutation Detection Pending JAK2 V617F Mutation Background Pending JAK2 [id number] Reviewed By Pending Methylmalonic Acid Pending White Blood Count 6.8 K/UL (4.8-10.8) Red Blood Count 2.86 M/UL (4.20-5.40) L Hemoglobin 7.0 G/DL (12.0-16.0) L Hematocrit 22.6 % (37.0-47.0) L Mean Corpuscular Volume 79 FL (80-99) L Mean Corpuscular Hemoglobin 24.3 PG (27.0-31.0) L Mean Corpuscular Hemoglobin Concent 30.7 G/DL (32.0-36.0) L Red Cell Distribution Width 17.5 % (11.6-14.8) H Platelet Count 293 K/UL (150-450) Mean Platelet Volume 6.3 FL (6.5-10.1) L Neutrophils (%) (Auto) % (45.0-75.0) Lymphocytes (%) (Auto) % (20.0-45.0) Monocytes (%) (Auto) % (1.0-10.0) Eosinophils (%) (Auto) % (0.0-3.0) Basophils (%) (Auto) % (0.0-2.0) Differential Total Cells Counted 100 Neutrophils % (Manual) 88 % (45-75) H Lymphocytes % (Manual) 10 % (20-45) L Monocytes % (Manual) 2 % (1-10) Eosinophils % (Manual) 0 % (0-3) Basophils % (Manual) 0 % (0-2) Band Neutrophils 0 % (0-8) Platelet Estimate Adequate Platelet Morphology Normal Hypochromasia 1+ Anisocytosis 1+ Microcytosis 1+ Reticulocyte Count 1.0 % (0.0-2.0) Prothrombin Time 12.9 SEC (9.30-11.50) H Prothromb Time International Ratio 1.2 (0.9-1.1) H Activated Partial Thromboplast Time 31 SEC (23-33) Sodium Level 143 MMOL/L (136-145) Potassium Level 3.1 MMOL/L (3.5-5.1) L Chloride Level 113 MMOL/L (98-107) H Carbon Dioxide Level 22 MMOL/L (21-32) Anion Gap 8 mmol/L (5-15) Blood Urea Nitrogen 11 mg/dL (7-18) Creatinine 0.6 MG/DL (0.55-1.30) Estimat Glomerular Filtration Rate mL/min (>60) Glucose Level 88 MG/DL (74-106) Calcium Level 8.0 MG/DL (8.5-10.1) L Iron Level 142 ug/dL (50-175) Total Iron Binding Capacity 169 ug/dL (250-450) L Percent Iron Saturation 84 % (15-50) H Unsaturated Iron Binding 27 ug/dL (112-346) L Ferritin 111 NG/ML (8-388) Total Bilirubin 0.1 MG/DL (0.2-1.0) L Aspartate Amino Transf (AST/SGOT) 17 U/L (15-37) Alanine Aminotransferase (ALT/SGPT) 11 U/L (12-78) L Alkaline Phosphatase 83 U/L (46-116) Pro-B-Type Natriuretic Peptide 3878 pg/mL (0-125) H Total Protein 5.4 G/DL (6.4-8.2) L Albumin 2.4 G/DL (3.4-5.0) L Globulin 3.0 g/dL Albumin/Globulin Ratio 0.8 (1.0-2.7) L Vitamin B12 Level > 2000 PG/ML (193-986) H Folate 17.4 NG/ML (8.6-58.9) Thyroid Stimulating Hormone (TSH) 3.301 uiU/mL (0.358-3.740) Free Thyroxine 1.23 NG/DL (0.76-1.46) Microbiology Date/Time Source Procedure Growth Status 11/15/17 02:30 Stool Clostridium difficile Toxin Assay - Final Complete 11/15/17 02:30 Anus Stool Culture - Preliminary NORMAL FECAL PERRY. Resulted Intake and Output 11/15/17 11/16/17 19:00 07:00 Intake Total 1195 ml 375 ml Balance 1195 ml 375 ml Intake Oral 120 ml IV Total 1075 ml 375 ml # Voids 2 2 # Bowel Movements 3 4 Assessment/Plan Problem List: (1) Diarrhea Assessment & Plan: Colonoscopy cancelled due to lack of IV access (2) Gastritis Assessment & Plan: Endoscopy cancelled due to lack of IV access-see GI note. (3) Dehydration (4) Abdominal pain (5) CVA (cerebrovascular accident) (6) Left hemiparesis (7) Diabetes mellitus Assessment & Plan: Continue metformin (8) Hypertension Assessment & Plan: continue losartan Status: not improved DELFIN MARTINEZ Nov 16, 2017 19:50
[2017-11-16] MEDS: Dyna-Hex 2% Top Sol 2oz TOPIC SCH (19:54)
[2017-11-16 20:00] VITALS: BP 148/68
[2017-11-16] MEDS ORDERED: Epogen (for non ESRD use) SUBQ SCH (21:00)
[2017-11-16] MEDS: Iron Sucrose 100 MG in NS 55 ML IV SCH (21:07)
[2017-11-16] MEDS: Atorvastatin 80mg tab ORAL SCH (21:07)
[2017-11-16] MEDS: Epogen (for non ESRD use) SUBQ SCH (21:08)
[2017-11-17] VITALS: BP 150/84
--- NOTE | 2017-11-17 01:15 | Consultation ---
DATE OF CONSULTATION: 11/16/2017 HEMATOLOGY/ONCOLOGY CONSULTATION CONSULTING PHYSICIAN: Dg Fairbanks M.D. REQUESTING PHYSICIAN: Lobito Jones M.D. and Lorne Rios M.D. REASON FOR EVALUATION: Anemia, ongoing. IDENTIFYING DATA: Dear Dr. Rios and Dr. Jones, The patient is a pleasant 76-year-old female with past medical history significant for right distal femur fracture; history of iron deficiency; history of Yarsani, refused blood products in the past; history of CVA, left hemiparesis; CAD, status post stent placement in 2012; diabetes mellitus type 2; hypertension; DVT history, status post IVC placement, at this time presents to the hospital with anemia that requires iron supplementation, last admitted to [place] in April 2017, and I saw the patient at that time. PAST MEDICAL HISTORY: As noted above. PAST SURGICAL HISTORY: Cholecystectomy, cervical spine fusion, lumbar spine surgery, carotid stenting, carotid stenosis, and AICD placement. MEDICATIONS: Current medications, Tylenol, Xanax, Lipitor, Coreg, Plavix, Aricept, Procrit, iron, folic acid, [place], lactulose, losartan, metformin, Remeron, multivitamin, omeprazole, and Zoloft. ALLERGIES: Latex and quinine. SOCIAL HISTORY: The patient is Buddhism. She is . No alcohol, tobacco, or illicit drug use. REVIEW OF SYSTEMS: CONSTITUTIONAL: No fevers, chills, or night sweats. SKIN: No rashes, bumps, or itching. HEENT: No headache, hearing or vision changes. BREASTS: No lumps, pain, or discharge. PULMONARY: No cough, sputum, or shortness of breath. GASTROINTESTINAL: No nausea, vomiting, or diarrhea. GENITOURINARY: No dysuria, frequency, or urgency. MUSCULOSKELETAL: No joint swelling, muscle pain, or trauma. PHYSICAL EXAMINATION: VITAL SIGNS: Reviewed. GENERAL: No distress. PULMONARY: Decreased breath sounds. CARDIOVASCULAR: Regular rate. No S3 or S4. ABDOMEN: Soft, nontender, and nondistended. EXTREMITIES: No cyanosis, swelling, or edema noted. LABORATORY AND DIAGNOSTIC DATA: Hemoglobin 7, platelet count 293, and WBC 6.8. Iron panel reviewed. No other major changes noted. Medications currently, ferrous sulfate, Epogen 10,000 units subcutaneous every 48 hours, heparin was started as well as iron sucrose given 5 days has been ordered IV, sertraline, metformin, losartan, and Flagyl. ASSESSMENT AND RECOMMENDATIONS: 1. Anemia due to iron deficiency. The patient is status post EGD showed solitary ulcer, induced. Agree with the use of iron for five days. The patient continued to have iron deficiency. The patient is Yarsani and is refusing blood products even though there is increased morbidity, mortality in refusing blood products. Continue to monitor. Again, continue to recommend blood transfusions if hemoglobin less than 7. 2. Nausea, vomiting, and diarrhea. Closely monitor. Zofran has been administered. 3. Anemia of chronic disease. Continue the patient on Epogen. 4. Colitis. She is on broad-spectrum antibiotics. 5. Yarsani, refusing blood products. 6. Diarrhea. Recommend the patient to take antibiotics as needed. Check for Clostridium difficile. I appreciate the consultation. Dg Fairbanks M.D. DR: BHARATI JOB#: [id number] CC:
[2017-11-17 04:31] VITALS: BP 158/74
[2017-11-17 05:17] LABS: HEMATOCRIT 20.2 % (37.0-47.0); MEAN CORPUSCULAR VOLUME 79 FL (80-99); PLATELET COUNT 258 K/UL (150-450); RED BLOOD COUNT 2.56 M/UL (4.20-5.40); RED CELL DISTRIBUTION WIDTH 17.9 % (11.6-14.8); WHITE BLOOD COUNT 6.8 K/UL (4.8-10.8)
[2017-11-17 05:39] LABS: HEMOGLOBIN 6.2 G/DL (12.0-16.0)
[2017-11-17] MEDS: NovoLOG Insulin Flexpen SUBQ SCH ×4 (06:00→21:00)
[2017-11-17 08:00] VITALS: BP 108/52
[2017-11-17] MEDS: Losartan 50mg tab ORAL SCH (09:51)
[2017-11-17] MEDS: Sertraline 100mg tab ORAL SCH (09:51)
[2017-11-17] MEDS: Aspirin EC 81mg tab ORAL SCH (09:51)
[2017-11-17] MEDS: Donepezil 5mg Tab ORAL SCH (09:51)
[2017-11-17] MEDS: metFORMIN 500mg tab ORAL SCH ×2 (09:51→17:46)
--- NOTE | 2017-11-17 10:13 | Pulmonology Progress Note ---
Assessment/Plan Problems: (1) Anemia (2) colitis (3) Asthma (4) CVA (cerebrovascular accident) (5) Diabetes mellitus (6) AICD (automatic cardioverter/defibrillator) present Assessment/Plan avoid excessive blood testing on Epogen, Venofer, vitamin check h/h gi f/u iv fluids sliding sclae respiratory treatment Subjective ROS Limited/Unobtainable: No Interval Events: comfortable Allergies: Coded Allergies: LATEX (Unverified Allergy, Mild, Rash, 09/03/14) QUININE (Unverified Allergy, Unknown, Rash Hives, 05/23/15) Quinine Sulfate Objective Last 24 Hour Vital Signs Date Time Temp Pulse Resp B/P (MAP) Pulse Ox O2 Delivery O2 Flow Rate FiO2 11/17/17 09:51 83 108/52 11/17/17 09:51 108/52 11/17/17 08:00 98.0 83 20 108/52 98 98.0 11/17/17 04:31 97.5 85 17 158/74 98 97.5 11/17/17 00:00 98.4 77 19 150/84 100 Room Air 98.4 11/16/17 20:00 98.2 75 19 148/68 98 Room Air 98.2 11/16/17 18:20 78 127/70 11/16/17 16:00 97.5 78 20 127/70 99 97.5 11/16/17 12:00 98.6 92 18 135/95 97 Room Air 98.6 Intake and Output 11/16/17 11/17/17 19:00 07:00 Intake Total 75 ml 690 ml Balance 75 ml 690 ml Intake Oral 240 ml IV Total 75 ml 450 ml # Voids 4 1 # Bowel Movements 2 2 Objective General Appearance: WD/WN HEENT: normocephalic, atraumatic Respiratory/Chest: chest wall non-tender, lungs clear Cardiovascular: normal peripheral pulses, normal rate Abdomen: normal bowel sounds, soft, non tender Genitourinary: normal external genitalia Extremities: no cyanosis Skin: no rash, no ulcers Microbiology Date/Time Source Procedure Growth Status 11/15/17 02:30 Stool Clostridium difficile Toxin Assay - Final Complete 11/15/17 02:30 Anus Stool Culture - Preliminary NORMAL FECAL PERRY. Resulted Laboratory Tests 11/17/17 05:05: White Blood Count 6.8, Red Blood Count 2.56L, Hemoglobin 6.2*L, Hematocrit 20.2L , Mean Corpuscular Volume 79L, Mean Corpuscular Hemoglobin 24.4L, Mean Corpuscular Hemoglobin Concent 30.9L, Red Cell Distribution Width 17.9H, Platelet Count 258, Mean Platelet Volume 5.6L, Neutrophils (%) (Auto) , Lymphocytes (%) (Auto) , Monocytes (%) (Auto) , Eosinophils (%) (Auto) , Basophils (%) (Auto) , Neutrophils % (Manual) [Pending], Lymphocytes % (Manual) [Pending], Platelet Estimate [Pending], Platelet Morphology [Pending] Current Medications Medications (Trade) Dose Ordered Sig/Don Route PRN Reason Start Time Stop Time Status Last Admin Dose Admin Acetaminophen/ Hydrocodone Bitart ([place] 5/325) 1 tab Q6HR PRN ORAL For Pain 11/14/17 23:00 11/21/17 22:59 Aspirin (Ecotrin) 81 mg DAILY ORAL 11/15/17 09:00 12/15/17 08:59 11/17/17 09:51 Atorvastatin Calcium (Lipitor) 80 mg BEDTIME ORAL 11/15/17 21:00 12/15/17 20:59 11/16/17 21:07 Bisacodyl (Dulcolax) 10 mg ONCE ONCE ORAL 11/18/17 16:00 11/18/17 16:01 Carvedilol (Coreg) 3.125 mg BID ORAL 11/15/17 00:00 12/15/17 00:00 11/17/17 09:51 Chlorhexidine Gluconate (Merari-Hex 2%) 1 applic DAILY@2000 TOPIC 11/16/17 20:00 12/16/17 19:59 11/16/17 19:54 Ciprofloxacin 200 ml @ 200 mls/hr Q12HR IV 11/15/17 09:00 11/22/17 08:59 11/17/17 09:50 Dextrose (Dextrose 50%) STAT PRN IV Hypoglycemia 11/14/17 23:00 12/14/17 22:59 Diphenoxylate HCl/ Atropine (Lomotil) 2.5 mg Q6HR PRN ORAL Diarrhea 11/14/17 23:00 12/14/17 22:59 Donepezil HCl (Aricept) 5 mg DAILY ORAL 11/15/17 09:00 12/15/17 08:59 11/17/17 09:51 Epoetin Barak (Procrit (for non ESRD use)) 10,000 units Q48H SUBQ 11/16/17 21:00 12/16/17 20:59 11/16/17 21:08 Ferrous Sulfate (Feosol) 325 mg THREE TIMES A DAY ORAL 11/20/17 09:00 12/20/17 08:59 Folic Acid (Folate) 1 mg DAILY ORAL 11/16/17 09:00 12/16/17 08:59 11/17/17 09:51 Heparin Sodium/ Sodium Chloride (Heparin 2000 units/Ns 1000ml premix) 2,000 unit ONCE PRN INJ PICC LINE PLACEMENT 11/16/17 16:00 Insulin Aspart (NovoLOG) BEFORE MEALS AND HS SUBQ 11/15/17 06:30 12/15/17 06:29 11/15/17 21:14 Iron Sucrose 100 mg/Sodium Chloride 60 ml @ 240 mls/hr BEDTIME IV 11/15/17 21:00 11/19/17 21:14 11/16/17 21:07 Losartan Potassium (Cozaar) 50 mg DAILY ORAL 11/15/17 09:00 12/15/17 08:59 11/17/17 09:51 Metformin HCl (Glucophage) 500 mg TWICE A DAY ORAL 11/15/17 09:00 12/15/17 08:59 11/17/17 09:51 Metronidazole 100 ml @ 100 mls/hr Q8HR IVPB 11/15/17 06:00 11/22/17 05:59 11/17/17 05:13 Mirtazapine (Remeron) 30 mg BEDTIME ORAL 11/15/17 21:00 12/15/17 20:59 11/16/17 21:07 Ondansetron HCl (Zofran) 4 mg Q4HR PRN IVP Nausea & Vomiting 11/16/17 00:00 12/16/17 00:00 Polyethylene Glycol (Miralax) 238 gm ONCE ONCE ORAL 11/18/17 16:00 11/18/17 16:01 Sertraline HCl (Zoloft) 100 mg DAILY ORAL 11/15/17 09:00 12/15/17 08:59 11/17/17 09:51 Sodium Chloride 1,000 ml @ 75 mls/hr [id number] IV 11/14/17 23:00 12/14/17 22:59 11/17/17 03:51 MARLENY TURPIN Nov 17, 2017 10:13
[2017-11-17 12:00] VITALS: BP 153/78
[2017-11-17 16:00] VITALS: BP 148/74
--- NOTE | 2017-11-17 17:25 | Internal Med Progress Note ---
Subjective Date of Service: Nov 17, 2017 Physician Name Delfin Martinez Attending Physician Lobito Jones MD Current Medications Medications (Trade) Dose Ordered Sig/Don Route PRN Reason Start Time Stop Time Status Last Admin Dose Admin Acetaminophen/ Hydrocodone Bitart ([place] 5/325) 1 tab Q6HR PRN ORAL For Pain 11/14/17 23:00 11/21/17 22:59 Aspirin (Ecotrin) 81 mg DAILY ORAL 11/15/17 09:00 12/15/17 08:59 11/17/17 09:51 Atorvastatin Calcium (Lipitor) 80 mg BEDTIME ORAL 11/15/17 21:00 12/15/17 20:59 11/16/17 21:07 Bisacodyl (Dulcolax) 10 mg ONCE ONCE ORAL 11/18/17 16:00 11/18/17 16:01 Carvedilol (Coreg) 3.125 mg BID ORAL 11/15/17 00:00 12/15/17 00:00 11/17/17 09:51 Chlorhexidine Gluconate (Merari-Hex 2%) 1 applic DAILY@2000 TOPIC 11/16/17 20:00 12/16/17 19:59 11/16/17 19:54 Ciprofloxacin 200 ml @ 200 mls/hr Q12HR IV 11/15/17 09:00 11/22/17 08:59 11/17/17 09:50 Dextrose (Dextrose 50%) STAT PRN IV Hypoglycemia 11/14/17 23:00 12/14/17 22:59 Diphenoxylate HCl/ Atropine (Lomotil) 2.5 mg Q6HR PRN ORAL Diarrhea 11/14/17 23:00 12/14/17 22:59 Donepezil HCl (Aricept) 5 mg DAILY ORAL 11/15/17 09:00 12/15/17 08:59 11/17/17 09:51 Epoetin Barak (Procrit (for non ESRD use)) 10,000 units Q48H SUBQ 11/16/17 21:00 12/16/17 20:59 11/16/17 21:08 Ferrous Sulfate (Feosol) 325 mg THREE TIMES A DAY ORAL 11/20/17 09:00 12/20/17 08:59 Folic Acid (Folate) 1 mg DAILY ORAL 11/16/17 09:00 12/16/17 08:59 11/17/17 09:51 Heparin Sodium/ Sodium Chloride (Heparin 2000 units/Ns 1000ml premix) 2,000 unit ONCE PRN INJ PICC LINE PLACEMENT 11/16/17 16:00 Insulin Aspart (NovoLOG) BEFORE MEALS AND HS SUBQ 11/15/17 06:30 12/15/17 06:29 11/15/17 21:14 Iron Sucrose 100 mg/Sodium Chloride 60 ml @ 240 mls/hr BEDTIME IV 11/15/17 21:00 11/19/17 21:14 11/16/17 21:07 Losartan Potassium (Cozaar) 50 mg DAILY ORAL 11/15/17 09:00 12/15/17 08:59 11/17/17 09:51 Metformin HCl (Glucophage) 500 mg TWICE A DAY ORAL 11/15/17 09:00 12/15/17 08:59 11/17/17 09:51 Metronidazole 100 ml @ 100 mls/hr Q8HR IVPB 11/15/17 06:00 11/22/17 05:59 11/17/17 14:35 Mirtazapine (Remeron) 30 mg BEDTIME ORAL 11/15/17 21:00 12/15/17 20:59 11/16/17 21:07 Ondansetron HCl (Zofran) 4 mg Q4HR PRN IVP Nausea & Vomiting 11/16/17 00:00 12/16/17 00:00 Polyethylene Glycol (Miralax) 238 gm ONCE ONCE ORAL 11/18/17 16:00 11/18/17 16:01 Sertraline HCl (Zoloft) 100 mg DAILY ORAL 11/15/17 09:00 12/15/17 08:59 11/17/17 09:51 Sodium Chloride 1,000 ml @ 75 mls/hr [id number] IV 11/14/17 23:00 12/14/17 22:59 11/17/17 03:51 Allergies: Coded Allergies: LATEX (Unverified Allergy, Mild, Rash, 09/03/14) QUININE (Unverified Allergy, Unknown, Rash Hives, 05/23/15) Quinine Sulfate ROS Limited/Unobtainable: No Constitutional: Reports: no symptoms HEENT: Reports: no symptoms Cardiovascular: Reports: no symptoms Respiratory: Reports: no symptoms Gastrointestinal/Abdominal: Reports: no symptoms Genitourinary: Reports: no symptoms Neurologic/Psychiatric: Reports: no symptoms Subjective 76 YO F admitted with diarrhea and dehydration. Endoscopy/colonoscopy cancelled due to lack of IV access. Cover for Int [facility]-Dr Jones Objective Last Vital Signs Date Time Temp Pulse Resp B/P (MAP) Pulse Ox O2 Delivery O2 Flow Rate FiO2 11/17/17 12:00 97.7 81 20 153/78 98 97.7 11/17/17 00:00 Room Air Laboratory Tests Test 11/17/17 05:05 White Blood Count 6.8 K/UL (4.8-10.8) Red Blood Count 2.56 M/UL (4.20-5.40) L Hemoglobin 6.2 G/DL (12.0-16.0) *L Hematocrit 20.2 % (37.0-47.0) L Mean Corpuscular Volume 79 FL (80-99) L Mean Corpuscular Hemoglobin 24.4 PG (27.0-31.0) L Mean Corpuscular Hemoglobin Concent 30.9 G/DL (32.0-36.0) L Red Cell Distribution Width 17.9 % (11.6-14.8) H Platelet Count 258 K/UL (150-450) Mean Platelet Volume 5.6 FL (6.5-10.1) L Neutrophils (%) (Auto) % (45.0-75.0) Lymphocytes (%) (Auto) % (20.0-45.0) Monocytes (%) (Auto) % (1.0-10.0) Eosinophils (%) (Auto) % (0.0-3.0) Basophils (%) (Auto) % (0.0-2.0) Differential Total Cells Counted 100 Neutrophils % (Manual) 79 % (45-75) H Lymphocytes % (Manual) 14 % (20-45) L Monocytes % (Manual) 6 % (1-10) Eosinophils % (Manual) 1 % (0-3) Basophils % (Manual) 0 % (0-2) Band Neutrophils 0 % (0-8) Platelet Estimate Adequate Platelet Morphology Normal Hypochromasia 1+ Anisocytosis 1+ Microcytosis 1+ Microbiology Date/Time Source Procedure Growth Status 11/15/17 02:30 Stool Clostridium difficile Toxin Assay - Final Complete 11/15/17 02:30 Anus Stool Culture - Preliminary NORMAL FECAL PERRY. Resulted Intake and Output 11/16/17 11/17/17 19:00 07:00 Intake Total 75 ml 690 ml Balance 75 ml 690 ml Intake Oral 240 ml IV Total 75 ml 450 ml # Voids 4 1 # Bowel Movements 2 2 Objective General Appearance: mild distress, thin EENT: PERRL/EOMI, normal ENT inspection Neck: non-tender, normal alignment, supple Cardiovascular: normal peripheral pulses, normal rate, regular rhythm, no gallop/murmur, no JVD Respiratory/Chest: chest wall non-tender, lungs clear, normal breath sounds, no respiratory distress, no accessory muscle use Abdomen: normal bowel sounds, no mass, abnormal bowel sounds, decreased bowel sounds, tender Extremities: normal range of motion, non-tender 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 (3) Dehydration (4) Abdominal pain (5) CVA (cerebrovascular accident) (6) Left hemiparesis (7) Diabetes mellitus Assessment & Plan: Continue metformin (8) Hypertension Assessment & Plan: continue losartan (9) Anemia Assessment & Plan: Worsening. Orthodoxy-refused transfruion. See hematology note. (10) Patient is Orthodoxy Status: not improved DELFIN MARTINEZ Nov 17, 2017 17:25
[2017-11-17 20:18] VITALS: BP 156/79
[2017-11-17] MEDS: Atorvastatin 80mg tab ORAL SCH (22:18)
[2017-11-17] MEDS: Dyna-Hex 2% Top Sol 2oz TOPIC SCH (22:19)
[2017-11-17] MEDS: Iron Sucrose 100 MG in NS 55 ML IV SCH (22:20)
[2017-11-18 00:18] VITALS: BP 176/91
[2017-11-18 04:38] VITALS: BP 158/87
[2017-11-18] MEDS: NovoLOG Insulin Flexpen SUBQ SCH ×4 (06:30→21:00)
[2017-11-18 08:00] VITALS: BP 152/83
[2017-11-18] MEDS: Aspirin EC 81mg tab ORAL SCH (10:11)
[2017-11-18] MEDS: Sertraline 100mg tab ORAL SCH (10:11)
[2017-11-18] MEDS: metFORMIN 500mg tab ORAL SCH ×2 (10:11→17:01)
[2017-11-18] MEDS: Losartan 50mg tab ORAL SCH (10:11)
[2017-11-18] MEDS: Donepezil 5mg Tab ORAL SCH (10:15)
[2017-11-18 12:00] VITALS: BP 156/83
--- NOTE | 2017-11-18 12:05 | Pulmonology Progress Note ---
Assessment/Plan Problems: (1) Anemia (2) colitis (3) Asthma (4) CVA (cerebrovascular accident) (5) Diabetes mellitus Assessment/Plan avoid excessive blood testing on Epogen, Venofer, vitamin check h/h gi f/u cxr negative sliding sclae respiratory treatment Subjective ROS Limited/Unobtainable: No Constitutional: Reports: no symptoms HEENT: Repors: no symptoms Respiratory: Reports: no symptoms Allergies: Coded Allergies: LATEX (Unverified Allergy, Mild, Rash, 09/03/14) QUININE (Unverified Allergy, Unknown, Rash Hives, 05/23/15) Quinine Sulfate Objective Last 24 Hour Vital Signs Date Time Temp Pulse Resp B/P (MAP) Pulse Ox O2 Delivery O2 Flow Rate FiO2 11/18/17 10:12 93 152/83 11/18/17 10:11 152/83 11/18/17 08:00 98.3 93 17 152/83 99 98.3 11/18/17 04:38 97.7 92 17 158/87 99 97.7 11/18/17 00:18 97.5 83 19 176/91 98 97.5 11/17/17 20:18 97.7 85 17 156/79 98 97.7 11/17/17 17:46 87 148/74 11/17/17 16:00 98.0 87 20 148/74 98 98.0 Intake and Output 11/17/17 11/18/17 19:00 07:00 Intake Total 615 ml 1210 ml Output Total 2 ml Balance 615 ml 1208 ml Intake Oral 240 ml IV Total 375 ml 1210 ml Output Stool Total 2 ml # Voids 1 2 Objective General Appearance: WD/WN HEENT: normocephalic, atraumatic Respiratory/Chest: chest wall non-tender, lungs clear Cardiovascular: normal peripheral pulses, normal rate Abdomen: normal bowel sounds, soft, non tender Genitourinary: normal external genitalia Extremities: no cyanosis Skin: no rash, no ulcers Current Medications Medications (Trade) Dose Ordered Sig/Don Route PRN Reason Start Time Stop Time Status Last Admin Dose Admin Acetaminophen/ Hydrocodone Bitart ([place] 5/325) 1 tab Q6HR PRN ORAL For Pain 11/14/17 23:00 11/21/17 22:59 Aspirin (Ecotrin) 81 mg DAILY ORAL 11/15/17 09:00 12/15/17 08:59 11/18/17 10:11 Atorvastatin Calcium (Lipitor) 80 mg BEDTIME ORAL 11/15/17 21:00 12/15/17 20:59 11/17/17 22:18 Bisacodyl (Dulcolax) 10 mg ONCE ONCE ORAL 11/18/17 16:00 11/18/17 16:01 Carvedilol (Coreg) 3.125 mg BID ORAL 11/15/17 00:00 12/15/17 00:00 11/18/17 10:12 Chlorhexidine Gluconate (Merari-Hex 2%) 1 applic DAILY@2000 TOPIC 11/16/17 20:00 12/16/17 19:59 11/17/17 22:19 Ciprofloxacin 200 ml @ 200 mls/hr Q12HR IV 11/15/17 09:00 11/22/17 08:59 11/18/17 10:11 Dextrose (Dextrose 50%) STAT PRN IV Hypoglycemia 11/14/17 23:00 12/14/17 22:59 Diphenoxylate HCl/ Atropine (Lomotil) 2.5 mg Q6HR PRN ORAL Diarrhea 11/14/17 23:00 12/14/17 22:59 Donepezil HCl (Aricept) 5 mg DAILY ORAL 11/15/17 09:00 12/15/17 08:59 11/18/17 10:15 Epoetin Barak (Procrit (for non ESRD use)) 10,000 units Q48H SUBQ 11/16/17 21:00 12/16/17 20:59 11/16/17 21:08 Ferrous Sulfate (Feosol) 325 mg THREE TIMES A DAY ORAL 11/20/17 09:00 12/20/17 08:59 Folic Acid (Folate) 1 mg DAILY ORAL 11/16/17 09:00 12/16/17 08:59 11/18/17 10:12 Heparin Sodium/ Sodium Chloride (Heparin 2000 units/Ns 1000ml premix) 2,000 unit ONCE PRN INJ PICC LINE PLACEMENT 11/16/17 16:00 Insulin Aspart (NovoLOG) BEFORE MEALS AND HS SUBQ 11/15/17 06:30 12/15/17 06:29 11/15/17 21:14 Iron Sucrose 100 mg/Sodium Chloride 60 ml @ 240 mls/hr BEDTIME IV 11/15/17 21:00 11/19/17 21:14 11/17/17 22:20 Losartan Potassium (Cozaar) 50 mg DAILY ORAL 11/15/17 09:00 12/15/17 08:59 11/18/17 10:11 Metformin HCl (Glucophage) 500 mg TWICE A DAY ORAL 11/15/17 09:00 12/15/17 08:59 11/18/17 10:11 Metronidazole 100 ml @ 100 mls/hr Q8HR IVPB 11/15/17 06:00 11/22/17 05:59 11/18/17 04:57 Mirtazapine (Remeron) 30 mg BEDTIME ORAL 11/15/17 21:00 12/15/17 20:59 11/17/17 22:19 Ondansetron HCl (Zofran) 4 mg Q4HR PRN IVP Nausea & Vomiting 11/16/17 00:00 12/16/17 00:00 Polyethylene Glycol (Miralax) 238 gm ONCE ONCE ORAL 11/18/17 16:00 11/18/17 16:01 Sertraline HCl (Zoloft) 100 mg DAILY ORAL 11/15/17 09:00 12/15/17 08:59 11/18/17 10:11 Sodium Chloride 1,000 ml @ 75 mls/hr [id number] IV 11/14/17 23:00 12/14/17 22:59 11/18/17 10:10 MARLENY TURPIN 11, 2018 12:05
--- NOTE | 2017-11-18 12:23 | General Progress Note ---
Assessment/Plan Assessment/Plan 1. Anemia due to iron deficiency. The patient is status post EGD showed solitary ulcer. --> Agree with the use of iron for five days. The patient continued to have iron deficiency. --> The patient is Jehovah's witness and is refusing blood products even though there is increased morbidity, mortality in refusing blood products. --> Continue to monitor. Again, continue to recommend blood transfusions if hemoglobin less than 7. 2. Nausea, vomiting, and diarrhea. Closely monitor. Zofran has been administered. 3. Anemia of chronic disease. --> Continue the patient on Epogen. 4. Colitis. --> She is on broad-spectrum antibiotics. 5. Jehovah's witness, refusing blood products. 6. Diarrhea. Recommend the patient to take antibiotics as needed. Check for Clostridium difficile. Subjective Date patient seen: Nov 17, 2017 Constitutional: Denies: no symptoms, chills, diaphoresis, fever, malaise, weakness, other HEENT: Denies: no symptoms, eye pain, blurred vision, tearing, double vision, ear pain, ear discharge, nose pain, nose congestion, throat pain, throat swelling, mouth pain, mouth swelling, other Cardiovascular: Denies: no symptoms, chest pain, edema, irregular heart rate, lightheadedness, palpitations, syncope, other Respiratory: Denies: no symptoms, cough, orthopnea, shortness of breath, SOB with excertion, SOB at rest, sputum, stridor, wheezing, other Gastrointestinal/Abdominal: Denies: no symptoms, abdomen distended, abdominal pain, black stools, tarry stools, blood in stool, constipated, diarrhea, difficulty swallowing, nausea, poor appetite, poor fluid intake, rectal bleeding , vomiting, other Genitourinary: Denies: no symptoms, burning, discharge, frequency, flank pain, hematuria, incontinence, pain, urgency, other Neurologic/Psychiatric: Denies: no symptoms, anxiety, depressed, emotional problems, headache, numbness, paresthesia, pre-existing deficit, seizure, tingling, tremors, weakness, other Hematologic/Lymphatic: Reports: anemia Allergies: Coded Allergies: LATEX (Unverified Allergy, Mild, Rash, 09/03/14) QUININE (Unverified Allergy, Unknown, Rash Hives, 9/13/15) Quinine Sulfate Subjective Hemoglobin low. Pt refusing blood products. Objective Last 24 Hour Vital Signs Date Time Temp Pulse Resp B/P (MAP) Pulse Ox O2 Delivery O2 Flow Rate FiO2 11/18/17 10:12 93 152/83 11/18/17 10:11 152/83 11/18/17 08:00 98.3 93 17 152/83 99 98.3 11/18/17 04:38 97.7 92 17 158/87 99 97.7 11/18/17 00:18 97.5 83 19 176/91 98 97.5 11/17/17 20:18 97.7 85 17 156/79 98 97.7 11/17/17 17:46 87 148/74 11/17/17 16:00 98.0 87 20 148/74 98 98.0 11/17/17 12:00 97.7 81 20 153/78 98 97.7 Intake and Output 11/17/17 11/18/17 20:00 08:00 Intake Total 690 ml 1135 ml Output Total 2 ml Balance 690 ml 1133 ml Intake Oral 240 ml IV Total 450 ml 1135 ml Output Stool Total 2 ml # Voids 1 2 Labs Test 11/15/17 20:45 11/16/17 10:00 11/17/17 05:05 White Blood Count 6.8 K/UL (4.8-10.8) 6.8 K/UL (4.8-10.8) Red Blood Count 2.86 M/UL (4.20-5.40) 2.56 M/UL (4.20-5.40) Hemoglobin 7.0 G/DL (12.0-16.0) 6.2 G/DL (12.0-16.0) Hematocrit 22.6 % (37.0-47.0) 20.2 % (37.0-47.0) Mean Corpuscular Volume 79 FL (80-99) 79 FL (80-99) Mean Corpuscular Hemoglobin 24.3 PG (27.0-31.0) 24.4 PG (27.0-31.0) Mean Corpuscular Hemoglobin Concent 30.7 G/DL (32.0-36.0) 30.9 G/DL (32.0-36.0) Red Cell Distribution Width 17.5 % (11.6-14.8) 17.9 % (11.6-14.8) Platelet Count 293 K/UL (150-450) 258 K/UL (150-450) Mean Platelet Volume 6.3 FL (6.5-10.1) 5.6 FL (6.5-10.1) Neutrophils (%) (Auto) % (45.0-75.0) % (45.0-75.0) Lymphocytes (%) (Auto) % (20.0-45.0) % (20.0-45.0) Monocytes (%) (Auto) % (1.0-10.0) % (1.0-10.0) Eosinophils (%) (Auto) % (0.0-3.0) % (0.0-3.0) Basophils (%) (Auto) % (0.0-2.0) % (0.0-2.0) Differential Total Cells Counted 100 100 Neutrophils % (Manual) 88 % (45-75) 79 % (45-75) Lymphocytes % (Manual) 10 % (20-45) 14 % (20-45) Monocytes % (Manual) 2 % (1-10) 6 % (1-10) Eosinophils % (Manual) 0 % (0-3) 1 % (0-3) Basophils % (Manual) 0 % (0-2) 0 % (0-2) Band Neutrophils 0 % (0-8) 0 % (0-8) Platelet Estimate Adequate Adequate Platelet Morphology Normal Normal Hypochromasia 1+ 1+ Anisocytosis 1+ 1+ Microcytosis 1+ 1+ Reticulocyte Count 1.0 % (0.0-2.0) Prothrombin Time 12.9 SEC (9.30-11.50) Prothromb Time International Ratio 1.2 (0.9-1.1) Activated Partial Thromboplast Time 31 SEC (23-33) Sodium Level 143 MMOL/L (136-145) Potassium Level 3.1 MMOL/L (3.5-5.1) Chloride Level 113 MMOL/L (98-107) Carbon Dioxide Level 22 MMOL/L (21-32) Anion Gap 8 mmol/L (5-15) Blood Urea Nitrogen 11 mg/dL (7-18) Creatinine 0.6 MG/DL (0.55-1.30) Estimat Glomerular Filtration Rate mL/min (>60) Glucose Level 88 MG/DL (74-106) Calcium Level 8.0 MG/DL (8.5-10.1) Iron Level 142 ug/dL (50-175) Total Iron Binding Capacity 169 ug/dL (250-450) Percent Iron Saturation 84 % (15-50) Unsaturated Iron Binding 27 ug/dL (112-346) Ferritin 111 NG/ML (8-388) Total Bilirubin 0.1 MG/DL (0.2-1.0) Aspartate Amino Transf (AST/SGOT) 17 U/L (15-37) Alanine Aminotransferase (ALT/SGPT) 11 U/L (12-78) Alkaline Phosphatase 83 U/L (46-116) Pro-B-Type Natriuretic Peptide 3878 pg/mL (0-125) Total Protein 5.4 G/DL (6.4-8.2) Albumin 2.4 G/DL (3.4-5.0) Globulin 3.0 g/dL Albumin/Globulin Ratio 0.8 (1.0-2.7) Vitamin B12 Level > 2000 PG/ML (193-986) Folate 17.4 NG/ML (8.6-58.9) Thyroid Stimulating Hormone (TSH) 3.301 uiU/mL (0.358-3.740) Free Thyroxine 1.23 NG/DL (0.76-1.46) Height (Feet): 5 Height (Inches): 3.00 Weight (Pounds): 120 Dg Fairbanks Nov 18, 2017 12:23
[2017-11-18 16:00] VITALS: BP 125/74
[2017-11-18] MEDS ORDERED: Bisacodyl EC 5mg tab ORAL ONE (16:00)
[2017-11-18] MEDS ORDERED: Polyethylene Glycol 238gm bottle ORAL ONE (16:00)
--- NOTE | 2017-11-18 16:23 | Cardiology Report ---
APPROVED REPORT EKG Measurement Heart [id number] AL [id number] Normal sinus rhythm Left axis deviation Probable poor lead placement -consider repeat study Abnormal ECG
--- NOTE | 2017-11-18 17:09 | Internal Med Progress Note ---
Subjective Date of Service: Nov 18, 2017 Physician Name Delfin Rios Attending Physician Lobito Jones MD Current Medications Medications (Trade) Dose Ordered Sig/Don Route PRN Reason Start Time Stop Time Status Last Admin Dose Admin Acetaminophen/ Hydrocodone Bitart ([place] 5/325) 1 tab Q6HR PRN ORAL For Pain 11/14/17 23:00 11/21/17 22:59 Aspirin (Ecotrin) 81 mg DAILY ORAL 11/15/17 09:00 12/15/17 08:59 11/18/17 10:11 Atorvastatin Calcium (Lipitor) 80 mg BEDTIME ORAL 11/15/17 21:00 12/15/17 20:59 11/17/17 22:18 Carvedilol (Coreg) 3.125 mg BID ORAL 11/15/17 00:00 12/15/17 00:00 11/18/17 17:02 Chlorhexidine Gluconate (Merari-Hex 2%) 1 applic DAILY@2000 TOPIC 11/16/17 20:00 12/16/17 19:59 11/17/17 22:19 Ciprofloxacin 200 ml @ 200 mls/hr Q12HR IV 11/15/17 09:00 11/22/17 08:59 11/18/17 10:11 Dextrose (Dextrose 50%) STAT PRN IV Hypoglycemia 11/14/17 23:00 12/14/17 22:59 Diphenoxylate HCl/ Atropine (Lomotil) 2.5 mg Q6HR PRN ORAL Diarrhea 11/14/17 23:00 12/14/17 22:59 Donepezil HCl (Aricept) 5 mg DAILY ORAL 11/15/17 09:00 12/15/17 08:59 11/18/17 10:15 Epoetin Barak (Procrit (for non ESRD use)) 10,000 units Q48H SUBQ 11/16/17 21:00 12/16/17 20:59 11/16/17 21:08 Ferrous Sulfate (Feosol) 325 mg THREE TIMES A DAY ORAL 11/20/17 09:00 12/20/17 08:59 Folic Acid (Folate) 1 mg DAILY ORAL 11/16/17 09:00 12/16/17 08:59 11/18/17 10:12 Heparin Sodium/ Sodium Chloride (Heparin 2000 units/Ns 1000ml premix) 2,000 unit ONCE PRN INJ PICC LINE PLACEMENT 11/16/17 16:00 Insulin Aspart (NovoLOG) BEFORE MEALS AND HS SUBQ 11/15/17 06:30 12/15/17 06:29 11/18/17 12:28 Iron Sucrose 100 mg/Sodium Chloride 60 ml @ 240 mls/hr BEDTIME IV 11/15/17 21:00 11/19/17 21:14 11/17/17 22:20 Losartan Potassium (Cozaar) 50 mg DAILY ORAL 11/15/17 09:00 12/15/17 08:59 11/18/17 10:11 Metformin HCl (Glucophage) 500 mg TWICE A DAY ORAL 11/15/17 09:00 12/15/17 08:59 11/18/17 17:01 Metronidazole 100 ml @ 100 mls/hr Q8HR IVPB 11/15/17 06:00 11/22/17 05:59 11/18/17 15:48 Mirtazapine (Remeron) 30 mg BEDTIME ORAL 11/15/17 21:00 12/15/17 20:59 11/17/17 22:19 Ondansetron HCl (Zofran) 4 mg Q4HR PRN IVP Nausea & Vomiting 11/16/17 00:00 12/16/17 00:00 Sertraline HCl (Zoloft) 100 mg DAILY ORAL 11/15/17 09:00 12/15/17 08:59 11/18/17 10:11 Sodium Chloride 1,000 ml @ 75 mls/hr [id number] IV 11/14/17 23:00 12/14/17 22:59 11/18/17 10:10 Allergies: Coded Allergies: LATEX (Unverified Allergy, Mild, Rash, 09/03/14) QUININE (Unverified Allergy, Unknown, Rash Hives, 05/23/15) Quinine Sulfate ROS Limited/Unobtainable: No Constitutional: Reports: no symptoms HEENT: Reports: no symptoms Cardiovascular: Reports: no symptoms Respiratory: Reports: no symptoms Gastrointestinal/Abdominal: Reports: no symptoms Genitourinary: Reports: no symptoms Neurologic/Psychiatric: Reports: no symptoms Subjective 76 YO F admitted with diarrhea and dehydration. Endoscopy/colonoscopy cancelled due to lack of IV access. Cover for Int Med-Dr Jones Objective Last Vital Signs Date Time Temp Pulse Resp B/P (MAP) Pulse Ox O2 Delivery O2 Flow Rate FiO2 11/18/17 17:02 98 125/74 11/18/17 12:00 98.3 17 99 98.3 11/17/17 00:00 Room Air Intake and Output 11/17/17 11/18/17 19:00 07:00 Intake Total 615 ml 1210 ml Output Total 2 ml Balance 615 ml 1208 ml Intake Oral 240 ml IV Total 375 ml 1210 ml Output Stool Total 2 ml # Voids 1 2 Objective General Appearance: mild distress, thin EENT: PERRL/EOMI, normal ENT inspection Neck: non-tender, normal alignment, supple Cardiovascular: normal peripheral pulses, normal rate, regular rhythm, no gallop/murmur, no JVD Respiratory/Chest: chest wall non-tender, lungs clear, normal breath sounds, no respiratory distress, no accessory muscle use Abdomen: normal bowel sounds, no mass, abnormal bowel sounds, decreased bowel sounds, tender Extremities: normal range of motion, non-tender 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 (3) Dehydration (4) Abdominal pain (5) CVA (cerebrovascular accident) (6) Left hemiparesis (7) Diabetes mellitus Assessment & Plan: Continue metformin (8) Hypertension Assessment & Plan: continue losartan (9) Anemia Assessment & Plan: Worsening. Cheondoism-refused transfruion. See hematology note. (10) Patient is Cheondoism MICHELLEDELFIN Nov 18, 2017 17:09
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
[2017-11-18 20:00] VITALS: BP 128/66
[2017-11-18] MEDS: Atorvastatin 80mg tab ORAL SCH (21:31)
[2017-11-18] MEDS: Iron Sucrose 100 MG in NS 55 ML IV SCH (21:31)
[2017-11-18] MEDS: Dyna-Hex 2% Top Sol 2oz TOPIC SCH (21:31)
[2017-11-18] MEDS: Epogen (for non ESRD use) SUBQ SCH (21:34)
[2017-11-19] VITALS: BP 165/95
[2017-11-19 04:00] VITALS: BP 135/89
[2017-11-19] MEDS: NovoLOG Insulin Flexpen SUBQ SCH ×4 (06:30→22:40)
[2017-11-19 06:52] LABS: HEMATOCRIT 20.5 % (37.0-47.0); MEAN CORPUSCULAR VOLUME 79 FL (80-99); PLATELET COUNT 260 K/UL (150-450); RED CELL DISTRIBUTION WIDTH 18.1 % (11.6-14.8); WHITE BLOOD COUNT 9.1 K/UL (4.8-10.8)
[2017-11-19 06:56] LABS: HEMOGLOBIN 6.3 G/DL (12.0-16.0)
[2017-11-19 07:25] LABS: ANION GAP 9 mmol/L (5-15); BLOOD UREA NITROGEN 4 mg/dL (7-18); CALCIUM 6.8 MG/DL (8.5-10.1); CARBON DIOXIDE 20 MMOL/L (21-32); CHLORIDE 116 MMOL/L (98-107); CREATININE 0.6 MG/DL (0.55-1.30); SODIUM 145 MMOL/L (136-145)
[2017-11-19 07:30] LABS: POTASSIUM 2.1 MMOL/L (3.5-5.1)
[2017-11-19 07:47] LABS: INR 1.5 (0.9-1.1)
[2017-11-19] MEDS ORDERED: NS IV ONE (09:00)
[2017-11-19] MEDS ORDERED: POTASSIUM CHLORIDE IV ONE (09:00)
--- NOTE | 2017-11-19 10:36 | GI Progress Note ---
Assessment/Plan Problems: (1) Nausea, vomiting, and diarrhea ICD Codes: R11.2 - Nausea with vomiting, unspecified; R19.7 - Diarrhea, unspecified SNOMED: 1470093 (2) Pacemaker ICD Codes: Z95.0 - Pacemaker SNOMED: 438193401 (3) Patient is Roman Catholic ICD Codes: Z78.9 - Other specified health status SNOMED: 68230705 (4) Anemia ICD Codes: D64.9 - Anemia, unspecified SNOMED: 319119615 (5) colitis (6) Severe anemia ICD Codes: D64.9 - Anemia, unspecified SNOMED: 718973003 Status: unchanged Status Narrative Discussed with Dr. Diaz. Assessment/Plan DATE OF PROCEDURE: 06/15/2014 PROCEDURE PERFORMED: Upper endoscopy with biopsy and colonoscopy. SUMMARY OF FINDINGS: 1. A solitary ulcer in the distal esophagus, possibly pill induced. 2. Gastritis, status post biopsy. 3. Duodenal diverticulum. 4. A scattered diverticulosis in the left colon. 5. Internal hemorrhoids. home medication reconciliation noted >> patient is on Plavix but none given since inpatient admission. EGD/colonoscopy rescheduled until tomorrow >> hypokalemia and no prep given yesterday. - CLD, NPO @ [facility]. anemia work up OB stool r/o GI bleed trend H&H, patient is anglican bowel regime ppi fu labs Subjective Subjective limited Objective Last 24 Hour Vital Signs Date Time Temp Pulse Resp B/P (MAP) Pulse Ox O2 Delivery O2 Flow Rate FiO2 11/19/17 04:00 98.1 96 20 135/89 96 98.1 11/19/17 00:00 98.2 84 19 165/95 100 98.2 11/18/17 20:00 99.0 88 19 128/66 98 99.0 11/18/17 17:02 98 125/74 11/18/17 16:00 98.0 90 17 125/74 99 98.0 11/18/17 12:00 98.3 98 17 156/83 99 98.3 Intake and Output 11/18/17 11/19/17 19:00 07:00 Intake Total 675 ml 1285 ml Balance 675 ml 1285 ml Intake Oral 600 ml IV Total 75 ml 1285 ml # Voids 4 1 # Bowel Movements 4 Laboratory Tests Test 11/19/17 04:00 White Blood Count 9.1 K/UL (4.8-10.8) Red Blood Count 2.60 M/UL (4.20-5.40) L Hemoglobin 6.3 G/DL (12.0-16.0) *L Hematocrit 20.5 % (37.0-47.0) L Mean Corpuscular Volume 79 FL (80-99) L Mean Corpuscular Hemoglobin 24.4 PG (27.0-31.0) L Mean Corpuscular Hemoglobin Concent 30.9 G/DL (32.0-36.0) L Red Cell Distribution Width 18.1 % (11.6-14.8) H Platelet Count 260 K/UL (150-450) Mean Platelet Volume 4.8 FL (6.5-10.1) L Neutrophils (%) (Auto) % (45.0-75.0) Lymphocytes (%) (Auto) % (20.0-45.0) Monocytes (%) (Auto) % (1.0-10.0) Eosinophils (%) (Auto) % (0.0-3.0) Basophils (%) (Auto) % (0.0-2.0) Differential Total Cells Counted 100 Neutrophils % (Manual) 76 % (45-75) H Lymphocytes % (Manual) 17 % (20-45) L Monocytes % (Manual) 6 % (1-10) Eosinophils % (Manual) 1 % (0-3) Basophils % (Manual) 0 % (0-2) Band Neutrophils 0 % (0-8) Platelet Estimate Adequate Platelet Morphology Normal Hypochromasia 1+ Anisocytosis 1+ Schistocytes 1+ Prothrombin Time 15.7 SEC (9.30-11.50) H Prothromb Time International Ratio 1.5 (0.9-1.1) H Activated Partial Thromboplast Time 38 SEC (23-33) H Sodium Level 145 MMOL/L (136-145) Potassium Level 2.1 MMOL/L (3.5-5.1) *L Chloride Level 116 MMOL/L (98-107) H Carbon Dioxide Level 20 MMOL/L (21-32) L Anion Gap 9 mmol/L (5-15) Blood Urea Nitrogen 4 mg/dL (7-18) L Creatinine 0.6 MG/DL (0.55-1.30) Estimat Glomerular Filtration Rate mL/min (>60) Glucose Level 89 MG/DL (74-106) Calcium Level 6.8 MG/DL (8.5-10.1) L Height (Feet): 5 Height (Inches): 3.00 Weight (Pounds): 120 General Appearance: WD/WN, no apparent distress, alert, thin Cardiovascular: normal rate Respiratory/Chest: normal breath sounds, no respiratory distress Abdominal Exam: normal bowel sounds, non tender, soft Extremities: non-tender Jelly Lang N.P. Nov 19, 2017 10:36
[2017-11-19] MEDS: Aspirin EC 81mg tab ORAL SCH (10:42)
[2017-11-19] MEDS: Losartan 50mg tab ORAL SCH (10:42)
[2017-11-19] MEDS: metFORMIN 500mg tab ORAL SCH ×2 (10:43→17:21)
[2017-11-19] MEDS: Sertraline 100mg tab ORAL SCH (10:43)
[2017-11-19] MEDS: Donepezil 5mg Tab ORAL SCH (10:46)
--- NOTE | 2017-11-19 10:48 | General Progress Note ---
Assessment/Plan Assessment/Plan 1. Anemia due to iron deficiency. The patient is status post EGD showed solitary ulcer. --> Agree with the use of iron for five days. The patient continued to have iron deficiency. --> The patient is Hindu and is refusing blood products even though there is increased morbidity, mortality in refusing blood products. --> Continue to monitor. Again, continue to recommend blood transfusions if hemoglobin less than 7. --> Hemoglobin levels downtrending and have been less than 7 2. Nausea, vomiting, and diarrhea. Closely monitor. Zofran has been administered. 3. Anemia of chronic disease. --> Continue the patient on Epogen. 4. Colitis. --> She is on broad-spectrum antibiotics. 5. Hindu, refusing blood products. 6. Diarrhea. Recommend the patient to take antibiotics as needed. Check for Clostridium difficile. Subjective Date patient seen: Nov 18, 2017 Constitutional: Denies: no symptoms, chills, diaphoresis, fever, malaise, weakness, other HEENT: Denies: no symptoms, eye pain, blurred vision, tearing, double vision, ear pain, ear discharge, nose pain, nose congestion, throat pain, throat swelling, mouth pain, mouth swelling, other Cardiovascular: Denies: no symptoms, chest pain, edema, irregular heart rate, lightheadedness, palpitations, syncope, other Respiratory: Denies: no symptoms, cough, orthopnea, shortness of breath, SOB with excertion, SOB at rest, sputum, stridor, wheezing, other Gastrointestinal/Abdominal: Denies: no symptoms, abdomen distended, abdominal pain, black stools, tarry stools, blood in stool, constipated, diarrhea, difficulty swallowing, nausea, poor appetite, poor fluid intake, rectal bleeding , vomiting, other Genitourinary: Denies: no symptoms, burning, discharge, frequency, flank pain, hematuria, incontinence, pain, urgency, other Neurologic/Psychiatric: Denies: no symptoms, anxiety, depressed, emotional problems, headache, numbness, paresthesia, pre-existing deficit, seizure, tingling, tremors, weakness, other Allergies: Coded Allergies: LATEX (Unverified Allergy, Mild, Rash, 09/03/14) QUININE (Unverified Allergy, Unknown, Rash Hives, 05/23/15) Quinine Sulfate Subjective Hemoglobin remains low. Pt is JW and refusing blood products Objective Last 24 Hour Vital Signs Date Time Temp Pulse Resp B/P (MAP) Pulse Ox O2 Delivery O2 Flow Rate FiO2 11/19/17 10:43 87 166/89 11/19/17 10:42 166/89 11/19/17 04:00 98.1 96 20 135/89 96 98.1 11/19/17 00:00 98.2 84 19 165/95 100 98.2 11/18/17 20:00 99.0 88 19 128/66 98 99.0 11/18/17 17:02 98 125/74 11/18/17 16:00 98.0 90 17 125/74 99 98.0 11/18/17 12:00 98.3 98 17 156/83 99 98.3 Intake and Output 11/18/17 11/19/17 19:00 07:00 Intake Total 675 ml 1285 ml Balance 675 ml 1285 ml Intake Oral 600 ml IV Total 75 ml 1285 ml # Voids 4 1 # Bowel Movements 4 Laboratory Tests 11/19/17 04:00: White Blood Count 9.1, Red Blood Count 2.60L, Hemoglobin 6.3*L, Hematocrit 20.5L , Mean Corpuscular Volume 79L, Mean Corpuscular Hemoglobin 24.4L, Mean Corpuscular Hemoglobin Concent 30.9L, Red Cell Distribution Width 18.1H, Platelet Count 260, Mean Platelet Volume 4.8L, Neutrophils (%) (Auto) , Lymphocytes (%) (Auto) , Monocytes (%) (Auto) , Eosinophils (%) (Auto) , Basophils (%) (Auto) , Differential Total Cells Counted 100, Neutrophils % ( Manual) 76H, Lymphocytes % (Manual) 17L, Monocytes % (Manual) 6, Eosinophils % ( Manual) 1, Basophils % (Manual) 0, Band Neutrophils 0, Platelet Estimate Adequate, Platelet Morphology Normal, Hypochromasia 1+, Anisocytosis 1+, Schistocytes 1+, Prothrombin Time 15.7H, Prothromb Time International Ratio 1.5H , Activated Partial Thromboplast Time 38H, Sodium Level 145, Potassium Level 2.1 *L, Chloride Level 116H, Carbon Dioxide Level 20L, Anion Gap 9, Blood Urea Nitrogen 4L, Creatinine 0.6, Estimat Glomerular Filtration Rate , Glucose Level 89, Calcium Level 6.8L Height (Feet): 5 Height (Inches): 3.00 Weight (Pounds): 120 Respiratory/Chest: decreased breath sounds Edema: trace edema Dg Fairbanks Nov 19, 2017 10:48
[2017-11-19 12:00] VITALS: BP 154/91
--- NOTE | 2017-11-19 15:21 | Diagnostic Imaging Report ---
Indications: Seizures Technique: Spiral acquisitions obtained through the brain. Angled axial and coronal 5 x 5 mm slices were reconstructed. Total dose length product 1362.01 mGycm. CTDI vol(s) 70.38 mGy. Dose reduction achieved using automated exposure control Comparison: 05/11/2017 Findings: Large area of encephalomalacia again occupies much of the left temporal and parietal lobe, and extends into the posterior frontal lobe. A large area of encephalomalacia involves much of the left parietal lobe. A third large area of encephalomalacia involves much of the left occipital lobe and extends cephalad into the parietal lobe. These are unchanged from the prior exam. Again demonstrated is age-related enlargement of extraocular dilatation of the lateral ventricles. Again demonstrated is extensive periventricular deep white matter chronic ischemic change. Multiple bilateral basal ganglia lacunar infarcts are again demonstrated. Cavum septal pellucidum again noted No acute intracranial hemorrhage or edema. No mass effect nor midline shift. The orbits and sinuses appear unremarkable. The calvarium is intact. Findings are unchanged Impression: Negative for acute intracranial bleed or mass effect Multiple old infarcts, as described Extensive chronic and age-related changes, as described The CT scanner at [facility] is accredited by the [employer] and the scans are performed using protocols designed to limit radiation exposure to as low as reasonably achievable to attain images of sufficient resolution adequate for diagnostic evaluation.
[2017-11-19 16:00] VITALS: BP 157/87
[2017-11-19] MEDS ORDERED: Polyethylene Glycol 238gm bottle ORAL ONE (16:00)
[2017-11-19] MEDS ORDERED: Bisacodyl EC 5mg tab ORAL ONE (16:00)
[2017-11-19] MEDS: Norco 5mg/325mg tab ORAL PRN (17:20)
--- NOTE | 2017-11-19 18:35 | Internal Med Progress Note ---
Subjective Date of Service: Nov 19, 2017 Physician Name BlancaDelfin Attending Physician Lobito Jones MD Current Medications Medications (Trade) Dose Ordered Sig/Don Route PRN Reason Start Time Stop Time Status Last Admin Dose Admin Acetaminophen/ Hydrocodone Bitart ([place] 5/325) 1 tab Q6HR PRN ORAL For Pain 11/14/17 23:00 11/21/17 22:59 11/19/17 17:20 Aspirin (Ecotrin) 81 mg DAILY ORAL 11/15/17 09:00 12/15/17 08:59 11/19/17 10:42 Atorvastatin Calcium (Lipitor) 80 mg BEDTIME ORAL 11/15/17 21:00 12/15/17 20:59 11/18/17 21:31 Carvedilol (Coreg) 3.125 mg BID ORAL 11/15/17 00:00 12/15/17 00:00 11/19/17 17:21 Chlorhexidine Gluconate (Merari-Hex 2%) 1 applic DAILY@2000 TOPIC 11/16/17 20:00 12/16/17 19:59 11/18/17 21:31 Ciprofloxacin 200 ml @ 200 mls/hr Q12HR IV 11/15/17 09:00 11/22/17 08:59 11/19/17 10:41 Clonidine HCl (Catapres Tab) 0.1 mg Q6H PRN ORAL FOR SBP>160 11/18/17 19:30 12/18/17 19:29 Dextrose (Dextrose 50%) STAT PRN IV Hypoglycemia 11/14/17 23:00 12/14/17 22:59 Diphenoxylate HCl/ Atropine (Lomotil) 2.5 mg Q6HR PRN ORAL Diarrhea 11/14/17 23:00 12/14/17 22:59 Donepezil HCl (Aricept) 5 mg DAILY ORAL 11/15/17 09:00 12/15/17 08:59 11/19/17 10:46 Epoetin Barak (Procrit (for non ESRD use)) 10,000 units Q48H SUBQ 11/16/17 21:00 12/16/17 20:59 11/18/17 21:34 Folic Acid (Folate) 1 mg DAILY ORAL 11/16/17 09:00 12/16/17 08:59 11/19/17 10:42 Heparin Sodium/ Sodium Chloride (Heparin 2000 units/Ns 1000ml premix) 2,000 unit ONCE PRN INJ PICC LINE PLACEMENT 11/16/17 16:00 Insulin Aspart (NovoLOG) BEFORE MEALS AND HS SUBQ 11/15/17 06:30 12/15/17 06:29 11/19/17 16:38 Iron Sucrose 100 mg/Sodium Chloride 60 ml @ 240 mls/hr BEDTIME IV 11/15/17 21:00 11/19/17 21:14 11/18/17 21:31 Losartan Potassium (Cozaar) 50 mg DAILY ORAL 11/15/17 09:00 12/15/17 08:59 11/19/17 10:42 Metformin HCl (Glucophage) 500 mg TWICE A DAY ORAL 11/15/17 09:00 12/15/17 08:59 11/19/17 17:21 Metronidazole 100 ml @ 100 mls/hr Q8HR IVPB 11/15/17 06:00 11/22/17 05:59 11/19/17 05:25 Mirtazapine (Remeron) 30 mg BEDTIME ORAL 11/15/17 21:00 12/15/17 20:59 11/18/17 21:32 Ondansetron HCl (Zofran) 4 mg Q4HR PRN IVP Nausea & Vomiting 11/16/17 00:00 12/16/17 00:00 Potassium Chloride 80 meq/ Sodium Chloride 1,040 ml @ 75 mls/hr [id number] ONCE IV 11/19/17 09:00 11/19/17 22:51 11/19/17 10:42 Sertraline HCl (Zoloft) 100 mg DAILY ORAL 11/15/17 09:00 12/15/17 08:59 11/19/17 10:43 Sodium Chloride 1,000 ml @ 75 mls/hr [id number] IV 11/14/17 23:00 12/14/17 22:59 11/19/17 13:50 Allergies: Coded Allergies: LATEX (Unverified Allergy, Mild, Rash, 09/03/14) QUININE (Unverified Allergy, Unknown, Rash Hives, 05/23/15) Quinine Sulfate ROS Limited/Unobtainable: No Constitutional: Reports: no symptoms HEENT: Reports: no symptoms Cardiovascular: Reports: no symptoms Respiratory: Reports: no symptoms Gastrointestinal/Abdominal: Reports: no symptoms Genitourinary: Reports: no symptoms Neurologic/Psychiatric: Reports: no symptoms Subjective 76 YO F admitted with diarrhea and dehydration. Endoscopy/colonoscopy cancelled due to hypokalemia and no prep given. Cover for Int Madan-Dr Jones Objective Last Vital Signs Date Time Temp Pulse Resp B/P (MAP) Pulse Ox O2 Delivery O2 Flow Rate FiO2 11/19/17 17:21 95 157/87 11/19/17 16:00 97.7 19 100 Room Air 97.7 Laboratory Tests Test 11/19/17 04:00 11/19/17 16:40 White Blood Count 9.1 K/UL (4.8-10.8) Red Blood Count 2.60 M/UL (4.20-5.40) L Hemoglobin 6.3 G/DL (12.0-16.0) *L Hematocrit 20.5 % (37.0-47.0) L Mean Corpuscular Volume 79 FL (80-99) L Mean Corpuscular Hemoglobin 24.4 PG (27.0-31.0) L Mean Corpuscular Hemoglobin Concent 30.9 G/DL (32.0-36.0) L Red Cell Distribution Width 18.1 % (11.6-14.8) H Platelet Count 260 K/UL (150-450) Mean Platelet Volume 4.8 FL (6.5-10.1) L Neutrophils (%) (Auto) % (45.0-75.0) Lymphocytes (%) (Auto) % (20.0-45.0) Monocytes (%) (Auto) % (1.0-10.0) Eosinophils (%) (Auto) % (0.0-3.0) Basophils (%) (Auto) % (0.0-2.0) Differential Total Cells Counted 100 Neutrophils % (Manual) 76 % (45-75) H Lymphocytes % (Manual) 17 % (20-45) L Monocytes % (Manual) 6 % (1-10) Eosinophils % (Manual) 1 % (0-3) Basophils % (Manual) 0 % (0-2) Band Neutrophils 0 % (0-8) Platelet Estimate Adequate Platelet Morphology Normal Hypochromasia 1+ Anisocytosis 1+ Schistocytes 1+ Prothrombin Time 15.7 SEC (9.30-11.50) H Prothromb Time International Ratio 1.5 (0.9-1.1) H Activated Partial Thromboplast Time 38 SEC (23-33) H Sodium Level 145 MMOL/L (136-145) Potassium Level 2.1 MMOL/L (3.5-5.1) *L Chloride Level 116 MMOL/L (98-107) H Carbon Dioxide Level 20 MMOL/L (21-32) L Anion Gap 9 mmol/L (5-15) Blood Urea Nitrogen 4 mg/dL (7-18) L Creatinine 0.6 MG/DL (0.55-1.30) Estimat Glomerular Filtration Rate mL/min (>60) Glucose Level 89 MG/DL (74-106) Calcium Level 6.8 MG/DL (8.5-10.1) L Stool Occult Blood Pending Intake and Output 11/18/17 11/19/17 19:00 07:00 Intake Total 675 ml 1285 ml Balance 675 ml 1285 ml Intake Oral 600 ml IV Total 75 ml 1285 ml # Voids 4 1 # Bowel Movements 4 Objective General Appearance: mild distress, thin EENT: PERRL/EOMI, normal ENT inspection Neck: non-tender, normal alignment, supple Cardiovascular: normal peripheral pulses, normal rate, regular rhythm, no gallop/murmur, no JVD Respiratory/Chest: chest wall non-tender, lungs clear, normal breath sounds, no respiratory distress, no accessory muscle use Abdomen: normal bowel sounds, no mass, abnormal bowel sounds, decreased bowel sounds, tender Extremities: normal range of motion, non-tender 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 (3) Dehydration (4) Abdominal pain (5) CVA (cerebrovascular accident) (6) Left hemiparesis (7) Diabetes mellitus Assessment & Plan: Continue metformin (8) Hypertension Assessment & Plan: continue losartan (9) Anemia Assessment & Plan: Severe. Congregational-refused transfruion. See hematology note. (10) Patient is Congregational Status: not improved DELFIN MARTINEZ Nov 19, 2017 18:35
[2017-11-19] MEDS ORDERED: LORazepam Inj 2mg/ml 1ml IV PRN (19:15)
--- NOTE | 2017-11-19 19:42 | Neurology Progress Note ---
Interim History Interim History ROS Limited/Unobtainable: No Objective Physical Exam Last Vital Signs Date Time Temp Pulse Resp B/P (MAP) Pulse Ox O2 Delivery O2 Flow Rate FiO2 11/19/17 17:21 95 157/87 11/19/17 16:00 97.7 19 100 Room Air 97.7 Laboratory Tests Test 11/19/17 04:00 11/19/17 16:40 White Blood Count 9.1 K/UL (4.8-10.8) Red Blood Count 2.60 M/UL (4.20-5.40) L Hemoglobin 6.3 G/DL (12.0-16.0) *L Hematocrit 20.5 % (37.0-47.0) L Mean Corpuscular Volume 79 FL (80-99) L Mean Corpuscular Hemoglobin 24.4 PG (27.0-31.0) L Mean Corpuscular Hemoglobin Concent 30.9 G/DL (32.0-36.0) L Red Cell Distribution Width 18.1 % (11.6-14.8) H Platelet Count 260 K/UL (150-450) Mean Platelet Volume 4.8 FL (6.5-10.1) L Neutrophils (%) (Auto) % (45.0-75.0) Lymphocytes (%) (Auto) % (20.0-45.0) Monocytes (%) (Auto) % (1.0-10.0) Eosinophils (%) (Auto) % (0.0-3.0) Basophils (%) (Auto) % (0.0-2.0) Differential Total Cells Counted 100 Neutrophils % (Manual) 76 % (45-75) H Lymphocytes % (Manual) 17 % (20-45) L Monocytes % (Manual) 6 % (1-10) Eosinophils % (Manual) 1 % (0-3) Basophils % (Manual) 0 % (0-2) Band Neutrophils 0 % (0-8) Platelet Estimate Adequate Platelet Morphology Normal Hypochromasia 1+ Anisocytosis 1+ Schistocytes 1+ Prothrombin Time 15.7 SEC (9.30-11.50) H Prothromb Time International Ratio 1.5 (0.9-1.1) H Activated Partial Thromboplast Time 38 SEC (23-33) H Sodium Level 145 MMOL/L (136-145) Potassium Level 2.1 MMOL/L (3.5-5.1) *L Chloride Level 116 MMOL/L (98-107) H Carbon Dioxide Level 20 MMOL/L (21-32) L Anion Gap 9 mmol/L (5-15) Blood Urea Nitrogen 4 mg/dL (7-18) L Creatinine 0.6 MG/DL (0.55-1.30) Estimat Glomerular Filtration Rate mL/min (>60) Glucose Level 89 MG/DL (74-106) Calcium Level 6.8 MG/DL (8.5-10.1) L Stool Occult Blood Pending Impression/Recommendations Status: not improved Recommendations #[id number] NISH AVALOS Nov 19, 2017 19:42
[2017-11-19 20:00] VITALS: BP 128/74
[2017-11-19] MEDS ORDERED: levETIRAcetam 500mg/5ml Liquid NG SCH (21:00)
[2017-11-19] MEDS: levETIRAcetam 500mg/NS100ml 100 ML IVPB SCH (21:23)
--- NOTE | 2017-11-19 22:20 | Pulmonology Progress Note ---
Assessment/Plan Problems: (1) Anemia (2) colitis (3) Asthma (4) CVA (cerebrovascular accident) (5) Diabetes mellitus Assessment/Plan Neuro evaluation check CT of head avoid excessive blood testing on Epogen, Venofer, vitamin check h/h gi f/u cxr negative sliding sclae respiratory treatment Subjective ROS Limited/Unobtainable: No Interval Events: pt had possibly seizures and was transferred to telemetry Allergies: Coded Allergies: LATEX (Unverified Allergy, Mild, Rash, 09/03/14) QUININE (Unverified Allergy, Unknown, Rash Hives, 05/23/15) Quinine Sulfate Objective Last 24 Hour Vital Signs Date Time Temp Pulse Resp B/P (MAP) Pulse Ox O2 Delivery O2 Flow Rate FiO2 11/19/17 17:21 95 157/87 11/19/17 16:00 97.7 95 19 157/87 100 Room Air 97.7 11/19/17 12:00 98.1 99 19 154/91 100 Room Air 98.1 11/19/17 10:43 87 166/89 11/19/17 10:42 166/89 11/19/17 04:00 98.1 96 20 135/89 96 98.1 11/19/17 00:00 98.2 84 19 165/95 100 98.2 Intake and Output 11/18/17 11/19/17 19:00 07:00 Intake Total 675 ml 1285 ml Balance 675 ml 1285 ml Intake Oral 600 ml IV Total 75 ml 1285 ml # Voids 4 1 # Bowel Movements 4 Objective General Appearance: WD/WN HEENT: normocephalic, atraumatic Respiratory/Chest: chest wall non-tender, lungs clear Cardiovascular: normal peripheral pulses, normal rate Abdomen: normal bowel sounds, soft, non tender Genitourinary: normal external genitalia Extremities: no cyanosis Skin: no rash, no ulcers Laboratory Tests 11/19/17 04:00: White Blood Count 9.1, Red Blood Count 2.60L, Hemoglobin 6.3*L, Hematocrit 20.5L , Mean Corpuscular Volume 79L, Mean Corpuscular Hemoglobin 24.4L, Mean Corpuscular Hemoglobin Concent 30.9L, Red Cell Distribution Width 18.1H, Platelet Count 260, Mean Platelet Volume 4.8L, Neutrophils (%) (Auto) , Lymphocytes (%) (Auto) , Monocytes (%) (Auto) , Eosinophils (%) (Auto) , Basophils (%) (Auto) , Differential Total Cells Counted 100, Neutrophils % ( Manual) 76H, Lymphocytes % (Manual) 17L, Monocytes % (Manual) 6, Eosinophils % ( Manual) 1, Basophils % (Manual) 0, Band Neutrophils 0, Platelet Estimate Adequate, Platelet Morphology Normal, Hypochromasia 1+, Anisocytosis 1+, Schistocytes 1+, Prothrombin Time 15.7H, Prothromb Time International Ratio 1.5H , Activated Partial Thromboplast Time 38H, Sodium Level 145, Potassium Level 2.1 *L, Chloride Level 116H, Carbon Dioxide Level 20L, Anion Gap 9, Blood Urea Nitrogen 4L, Creatinine 0.6, Estimat Glomerular Filtration Rate , Glucose Level 89, Calcium Level 6.8L 11/19/17 16:40: Stool Occult Blood [Pending] Current Medications Medications (Trade) Dose Ordered Sig/Don Route PRN Reason Start Time Stop Time Status Last Admin Dose Admin Acetaminophen/ Hydrocodone Bitart ([place] 5/325) 1 tab Q6HR PRN ORAL For Pain 11/14/17 23:00 11/21/17 22:59 11/19/17 17:20 Aspirin (Ecotrin) 81 mg DAILY ORAL 11/15/17 09:00 12/15/17 08:59 11/19/17 10:42 Carvedilol (Coreg) 3.125 mg BID ORAL 11/15/17 00:00 12/15/17 00:00 11/19/17 17:21 Chlorhexidine Gluconate (Merari-Hex 2%) 1 applic DAILY@2000 TOPIC 11/16/17 20:00 12/16/17 19:59 11/18/17 21:31 Ciprofloxacin 200 ml @ 200 mls/hr Q12HR IV 11/15/17 09:00 11/22/17 08:59 11/19/17 21:55 Clonidine HCl (Catapres Tab) 0.1 mg Q6H PRN ORAL FOR SBP>160 11/18/17 19:30 12/18/17 19:29 Dextrose (Dextrose 50%) STAT PRN IV Hypoglycemia 11/14/17 23:00 12/14/17 22:59 Diphenoxylate HCl/ Atropine (Lomotil) 2.5 mg Q6HR PRN ORAL Diarrhea 11/14/17 23:00 12/14/17 22:59 Epoetin Barak (Procrit (for non ESRD use)) 10,000 units Q48H SUBQ 11/16/17 21:00 12/16/17 20:59 11/18/17 21:34 Folic Acid (Folate) 1 mg DAILY ORAL 11/16/17 09:00 12/16/17 08:59 11/19/17 10:42 Heparin Sodium/ Sodium Chloride (Heparin 2000 units/Ns 1000ml premix) 2,000 unit ONCE PRN INJ PICC LINE PLACEMENT 11/16/17 16:00 Insulin Aspart (NovoLOG) BEFORE MEALS AND HS SUBQ 11/15/17 06:30 12/15/17 06:29 11/19/17 16:38 Levetiracetam 100 ml @ 400 mls/hr Q12HR IVPB 11/19/17 22:00 12/19/17 21:59 11/19/17 21:23 Lorazepam (Ativan 2mg/ml 1ml) 1 mg Q4H PRN IV For Seizures 11/19/17 19:15 11/26/17 19:14 11/19/17 19:14 Losartan Potassium (Cozaar) 50 mg DAILY ORAL 11/15/17 09:00 12/15/17 08:59 11/19/17 10:42 Metformin HCl (Glucophage) 500 mg TWICE A DAY ORAL 11/15/17 09:00 12/15/17 08:59 11/19/17 17:21 Metronidazole 100 ml @ 100 mls/hr Q8HR IVPB 11/15/17 06:00 11/22/17 05:59 11/19/17 05:25 Mirtazapine (Remeron) 15 mg BEDTIME ORAL 11/19/17 21:00 12/19/17 20:59 11/19/17 21:55 Ondansetron HCl (Zofran) 4 mg Q4HR PRN IVP Nausea & Vomiting 11/16/17 00:00 12/16/17 00:00 Potassium Chloride 80 meq/ Sodium Chloride 1,040 ml @ 75 mls/hr [id number] ONCE IV 11/19/17 09:00 11/19/17 22:51 11/19/17 10:42 Sodium Chloride 1,000 ml @ 75 mls/hr [id number] IV 11/14/17 23:00 12/14/17 22:59 11/19/17 13:50 MARLENY TURPIN Nov 19, 2017 22:20
[2017-11-19] MEDS: Iron Sucrose 100 MG in NS 55 ML IV SCH (22:25)
--- NOTE | 2017-11-19 22:30 | Consultation ---
DATE OF CONSULTATION: 11/19/2017 NEUROLOGICAL CONSULTATION CONSULTING PHYSICIAN: Carroll Evangelista M.D. REQUESTING PHYSICIAN: Lobito Jones M.D. HISTORY OF PRESENT ILLNESS: The patient is a 76 years old female, who is Jehovah's witness, lives with her family, now seen in neurological consultation after she developed first in her life two generalized seizures. According to the family, she never had seizures in the past. She is being treated for severe anemia, which required Procrit and iron supplementation. She was admitted after having recurrent diarrhea for the last week, profound generalized weakness, lack of appetite, and reduced food intake. On admission, she was not complaining and actually requesting to go home. Her laboratory studies on admission included unremarkable electrolyte panel, but low albumin 2.5, chloride of 110, normal TSH, folate, and B12 levels, but elevated B[place] of 3878, potassium 3.1, which dropped today to 2.1. Calcium level 8.0, dropped to 6.8. Coagulation panel was normal with latest INR 1.5, PT 15.7, and PTT of 38. CBC study currently with hemoglobin dropping down to 6.3, RBC 2.60, hematocrit 20.5, low MCV, MCH, and normal platelets. Imaging studies on admission included chest x-ray with no acute process. There was a left chest bifocal automatic implanted cardioverter-defibrillator in place, inferior vena cava filter. The patient developed seizures. She had a stat CT of the brain obtained, this revealed no acute intracranial abnormalities and no hemorrhage. There was a large area of encephalomalacia, left temporal, left parietal, and posterior frontal lobes as well as left occipital lobe extending into the parietal lobe. This is unchanged from a previous study, which was obtained on 05/11/2017. Enlargement of dilation of lateral ventricles, extensive periventricular deep white matter chronic ischemic changes, multiple bilateral basal ganglia lacunar infarcts. Her vital signs today with blood pressure of 167/87 and afebrile. PAST MEDICAL HISTORY: The patient has extensive medical history, this included acute stroke in 05/2015, following which she developed dysarthria, seems expressive aphasia, she has a history of severe iron-deficiency anemia, right knee fracture, left hemiplegia, coronary artery disease, status post angioplasty, congestive heart failure, diabetes type 2, hypertension, hyperlipidemia, deep vein thrombosis, status post IVC, automatic implanted cardioverter-defibrillator in place, and bilateral knee replacement. She underwent multiple surgeries including cervical and lumbar spine surgery, carotid stenting due to carotid stenosis. MEDICATIONS: Current treatment included ceftaroline 100 mg daily, MiraLAX, Zofran, Remeron 30 mg at bedtime, metformin, Cozaar, insulin, [place], folate, Epogen, Aricept 5 mg daily, clonidine, Dulcolax, Lipitor, Ecotrin, and antibiotics. ALLERGIES: Latex and quinine. FAMILY HISTORY: Noncontributory. SOCIAL HISTORY: The patient lives at home, taken care of by her children. REVIEW OF SYMPTOMS: Unable to obtain due to the patient's status. PHYSICAL EXAMINATION: GENERAL: This is a well-developed, cachectic, very pale elderly female, lying in bed, asleep. VITAL SIGNS: Blood pressure 152/80 and respirations 18. HEENT: Head, normocephalic. No evidence of trauma. Eyes, ears, and throat are clear. NECK: Rigid in all directions. MUSCULOSKELETAL: Unremarkable. Postoperative scarring noted both knees. There is a bluish discoloration, tips of big toes, right more than left. Peripheral pulses 1+ and symmetric. MENTAL STATUS: She is sedated with 1 mg of Ativan. She is postictal. CRANIAL NERVE II: Pupils both responding to light and accommodation. Extraocular movements full range. CRANIAL NERVE V: Normal corneal responses. CRANIAL NERVE VII: Droop left nasolabial fold. CRANIAL NERVES IX THROUGH XII: Tongue is in the midline. Symmetric palate elevation. MOTOR EXAMINATION: Revealed normal muscle tone, right extremities. Reduced muscle tone, flaccidity left upper and left lower extremity. Deep tendon reflexes depressed bilaterally. Plantar response is mute. SENSORY EXAMINATION: No response to pin stimulation. IMPRESSION: 1. Extensive ischemic cerebrovascular disease with multiple bilateral lacunar strokes. 2. Status post old left right middle cerebral artery distribution ischemic stroke with left hemiplegia, dysarthria, and aphasia. 3. New onset of recurrent generalized seizures. 4. Polypharmacy. 5. Coronary artery disease, status post angioplasty, pacemaker in place. 6. Diabetes, type 2. 7. Hypertension. RECOMMENDATIONS: 1. Discontinue all unessential treatment. 2. Start on Keppra 500 mg twice a day, Ativan 0.5 mg q.1 hour as needed breakthrough seizures. 3. Seizure precautions. 4. Continue with supportive care. 5. The patient's status was discussed with medical staff as well as the patient's daughter who was present during this exam. Carroll Isaiah Evangelista DR: ROSALVA JOB#: [id number] CC:
[2017-11-19] MEDS: Dyna-Hex 2% Top Sol 2oz TOPIC SCH (22:41)
--- NOTE | 2017-11-19 23:49 | Consultation ---
History of Present Illness General Date patient seen: Nov 17, 2017 Chief Complaint: Nausea, Vomiting, and Diarrhea Referring physician: LORI RAMIREZ Reason for Consultation: ANEMIA / COLITIS Present Illness HPI 76-year-old female with past medical history significant for right distal femur fracture; history of iron deficiency; history of Restoration, refused blood products in the past. the pt has hx of depressive sxs and anxiety Allergies: Coded Allergies: LATEX (Unverified Allergy, Mild, Rash, 09/03/14) QUININE (Unverified Allergy, Unknown, Rash Hives, 05/23/15) Quinine Sulfate Medication History Scheduled Ascorbic Acid* (Vitamin C*), 500 MG ORAL THREE TIMES A DAY, (Reported) Aspirin* (Aspir 81*), 81 MG ORAL DAILY, (Reported) Atorvastatin Calcium* (Lipitor*), 80 MG ORAL BEDTIME, (Reported) Atorvastatin Calcium* (Atorvastatin Calcium*), 40 MG ORAL BEDTIME, (Reported) Carvedilol* (Carvedilol*), 3.125 MG ORAL BID, (Reported) Ceftriaxone Na/Dextrose,Iso (Ceftriaxone 1 Gm Piggyback), 1 GM IV DAILY, ( Reported) Clopidogrel* (Clopidogrel*), 75 MG ORAL DAILY, (Reported) Donepezil Hcl* (Donepezil Hcl*), 5 MG ORAL DAILY, (Reported) Epoetin Barak (Procrit), 10,000 UNIT SUBQ ONCE A WEEK, (Reported) Epoetin Barak (Procrit), 10,000 UNIT SUBQ 3XW, (Reported) Ferrous Sulfate (Feosol), 325 MG PO THREE TIMES A DAY, (Reported) Folic Acid* (Folic Acid*), 1 MG ORAL DAILY, (Reported) Iron Sucrose Complex (Venofer), 100 MG IV QHS, (Reported) Losartan Potassium* (Cozaar*), 50 MG ORAL DAILY, (Reported) Metformin Hcl* (Metformin Hcl*), 500 MG ORAL TWICE A DAY, (Reported) Mirtazapine* (Remeron*), 15 MG ORAL BEDTIME, (Reported) Mirtazapine* (Mirtazapine*), 30 MG ORAL BEDTIME, (Reported) Multivitamin With Minerals (Multivitamins With Minerals*), 1 TAB ORAL DAILY, ( Reported) Omeprazole (Omeprazole), 20 MG ORAL DAILY, (Reported) Pantoprazole* (Protonix*), 40 MG ORAL DAILY, (Reported) Ranitidine Hcl* (Zantac*), 150 MG ORAL TWICE A DAY, (Reported) Rifampin* (Rifadin*), 300 MG ORAL Q12HR, (Reported) Sertraline Hcl* (Zoloft*), 100 MG ORAL DAILY, (Reported) Vancomycin Hcl/D5w (Vancomycin-D5w 1 G/250 Ml), 1 GM IVPB Q24H, (Reported) Vancomycin/0.9 % Sod Chloride (Vanco 1 Gram/250 ml-0.9% NaCl), 1 GM IV DAILY, ( Reported) Scheduled PRN Acetaminophen (Acetaminophen), 650 MG ORAL Q6H PRN for Prn Headache/Temp > 101, (Reported) Acetaminophen With Codeine (T#3) (Tylenol #3 Tab*), 1 TAB ORAL DAILY PRN for For Pain, (Reported) Alprazolam* (Xanax*), 0.25 MG ORAL EVERY 6 HOURS PRN for For Anxiety, (Reported) Bisacodyl* (Dulcolax*), 5 MG ORAL DAILY PRN for Constipation, (Reported) Hydrocodone Bit/Acetaminophen 5-325* ([place] 5-325 Tablet*), 1 TAB ORAL Q6HR PRN for For Pain, (Reported) Hydrocodone Bit/Acetaminophen 5-325* ([place] 5-325 Tablet*), 1 TAB ORAL Q8HR PRN for For Pain, (Reported) Lactulose (Lactulose*), 20 ML ORAL THREE TIMES A DAY PRN for PRN, (Reported) Ondansetron (Zofran), 4 MG ORAL Q6H PRN for Nausea & Vomiting, (Reported) Temazepam (Temazepam*), 15 MG ORAL BEDTIME PRN for Insomnia, (Reported) Miscellaneous Medications Ceftriaxone Na/Dextrose,Iso (Ceftriaxone 1 Gm Piggyback), 1 GM IV, (Reported) Discontinued Medications Epoetin Barak (Procrit), 10,000 UNIT SUBQ Q48hr, (Reported) Discontinued Reason: Pt stopped taking med Patient History Limited by: medical condition History Provided By: Patient, Medical Record, PMD Healthcare decision maker Pau Resuscitation status Full Code Advanced Directive on File No Past Medical/Surgical History Past Medical/Surgical History: (1) ACS (acute coronary syndrome) (2) Chills (3) Fatigue (4) Symptomatic anemia (5) Hip fracture (6) UTI (urinary tract infection) (7) Sepsis (8) Altered mental status (9) Cerebral vascular disease (10) DVT (deep venous thrombosis) (11) ST segment abnormality (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 (13) Symptomatic anemia (14) Sacral wound (15) Fracture (16) Bacteremia (17) Constipation (18) Colitis (19) Diabetes mellitus (20) colitis (21) Severe anemia (22) Dehydration (23) Diarrhea (24) Gastritis (25) Abdominal pain (26) Anemia (27) GI bleeding (28) Iron deficiency anemia (29) Refusal of blood transfusions as patient is Restoration (30) Chronic NSAIDS use (31) Hypertension (32) Diabetes mellitus (33) Hypercholesteremia (34) Chest pain (35) Diverticulosis (36) gastrits (37) pill induced esophageal ulcer (38) Nausea, vomiting, and diarrhea (39) Nausea, vomiting, and diarrhea (40) Arrhythmia (41) Bradycardia (42) Syncope (43) Hyperlipemia (44) CAD (coronary artery disease) (45) Sick sinus syndrome (46) CVA (cerebrovascular accident) (47) Slurred speech (48) Left hemiparesis (49) CHF (congestive heart failure) (50) Asthma (51) Pacemaker (52) Cytotoxic cerebral edema Review of Systems Psychiatric: Reports: prior hx, anxiety, depressed feelings, emotional problems Physical Exam Last 24 Hour Vital Signs Date Time Temp Pulse Resp B/P (MAP) Pulse Ox O2 Delivery O2 Flow Rate FiO2 11/19/17 20:00 97.3 104 19 128/74 94 Room Air 97.3 11/19/17 17:21 95 157/87 11/19/17 16:00 97.7 95 19 157/87 100 Room Air 97.7 11/19/17 12:00 98.1 99 19 154/91 100 Room Air 98.1 11/19/17 10:43 87 166/89 11/19/17 10:42 166/89 11/19/17 04:00 98.1 96 20 135/89 96 98.1 11/19/17 00:00 98.2 84 19 165/95 100 98.2 Intake and Output 11/18/17 11/19/17 19:00 07:00 Intake Total 675 ml 1285 ml Balance 675 ml 1285 ml Intake Oral 600 ml IV Total 75 ml 1285 ml # Voids 4 1 # Bowel Movements 4 Laboratory Tests Test 11/19/17 04:00 11/19/17 16:40 White Blood Count 9.1 K/UL (4.8-10.8) Red Blood Count 2.60 M/UL (4.20-5.40) L Hemoglobin 6.3 G/DL (12.0-16.0) *L Hematocrit 20.5 % (37.0-47.0) L Mean Corpuscular Volume 79 FL (80-99) L Mean Corpuscular Hemoglobin 24.4 PG (27.0-31.0) L Mean Corpuscular Hemoglobin Concent 30.9 G/DL (32.0-36.0) L Red Cell Distribution Width 18.1 % (11.6-14.8) H Platelet Count 260 K/UL (150-450) Mean Platelet Volume 4.8 FL (6.5-10.1) L Neutrophils (%) (Auto) % (45.0-75.0) Lymphocytes (%) (Auto) % (20.0-45.0) Monocytes (%) (Auto) % (1.0-10.0) Eosinophils (%) (Auto) % (0.0-3.0) Basophils (%) (Auto) % (0.0-2.0) Differential Total Cells Counted 100 Neutrophils % (Manual) 76 % (45-75) H Lymphocytes % (Manual) 17 % (20-45) L Monocytes % (Manual) 6 % (1-10) Eosinophils % (Manual) 1 % (0-3) Basophils % (Manual) 0 % (0-2) Band Neutrophils 0 % (0-8) Platelet Estimate Adequate Platelet Morphology Normal Hypochromasia 1+ Anisocytosis 1+ Schistocytes 1+ Prothrombin Time 15.7 SEC (9.30-11.50) H Prothromb Time International Ratio 1.5 (0.9-1.1) H Activated Partial Thromboplast Time 38 SEC (23-33) H Sodium Level 145 MMOL/L (136-145) Potassium Level 2.1 MMOL/L (3.5-5.1) *L Chloride Level 116 MMOL/L (98-107) H Carbon Dioxide Level 20 MMOL/L (21-32) L Anion Gap 9 mmol/L (5-15) Blood Urea Nitrogen 4 mg/dL (7-18) L Creatinine 0.6 MG/DL (0.55-1.30) Estimat Glomerular Filtration Rate mL/min (>60) Glucose Level 89 MG/DL (74-106) Calcium Level 6.8 MG/DL (8.5-10.1) L Stool Occult Blood Pending Height (Feet): 5 Height (Inches): 3.00 Weight (Pounds): 120 Medications Current Medications Medications (Trade) Dose Ordered Sig/Don Route PRN Reason Start Time Stop Time Status Last Admin Dose Admin Acetaminophen/ Hydrocodone Bitart ([place] 5/325) 1 tab Q6HR PRN ORAL For Pain 11/14/17 23:00 11/21/17 22:59 11/19/17 17:20 Aspirin (Ecotrin) 81 mg DAILY ORAL 11/15/17 09:00 12/15/17 08:59 11/19/17 10:42 Carvedilol (Coreg) 3.125 mg BID ORAL 11/15/17 00:00 12/15/17 00:00 11/19/17 17:21 Chlorhexidine Gluconate (Merari-Hex 2%) 1 applic DAILY@2000 TOPIC 11/16/17 20:00 12/16/17 19:59 11/19/17 22:41 Ciprofloxacin 200 ml @ 200 mls/hr Q12HR IV 11/15/17 09:00 11/22/17 08:59 11/19/17 21:55 Clonidine HCl (Catapres Tab) 0.1 mg Q6H PRN ORAL FOR SBP>160 11/18/17 19:30 12/18/17 19:29 Dextrose (Dextrose 50%) STAT PRN IV Hypoglycemia 11/14/17 23:00 12/14/17 22:59 Diphenoxylate HCl/ Atropine (Lomotil) 2.5 mg Q6HR PRN ORAL Diarrhea 11/14/17 23:00 12/14/17 22:59 Epoetin Barak (Procrit (for non ESRD use)) 10,000 units Q48H SUBQ 11/16/17 21:00 12/16/17 20:59 11/18/17 21:34 Folic Acid (Folate) 1 mg DAILY ORAL 11/16/17 09:00 12/16/17 08:59 11/19/17 10:42 Heparin Sodium/ Sodium Chloride (Heparin 2000 units/Ns 1000ml premix) 2,000 unit ONCE PRN INJ PICC LINE PLACEMENT 11/16/17 16:00 Insulin Aspart (NovoLOG) BEFORE MEALS AND HS SUBQ 11/15/17 06:30 12/15/17 06:29 11/19/17 22:40 Levetiracetam 100 ml @ 400 mls/hr Q12HR IVPB 11/19/17 22:00 12/19/17 21:59 11/19/17 21:23 Lorazepam (Ativan 2mg/ml 1ml) 1 mg Q4H PRN IV For Seizures 11/19/17 19:15 11/26/17 19:14 11/19/17 19:14 Losartan Potassium (Cozaar) 50 mg DAILY ORAL 11/15/17 09:00 12/15/17 08:59 11/19/17 10:42 Metformin HCl (Glucophage) 500 mg TWICE A DAY ORAL 11/15/17 09:00 12/15/17 08:59 11/19/17 17:21 Metronidazole 100 ml @ 100 mls/hr Q8HR IVPB 11/15/17 06:00 11/22/17 05:59 11/19/17 22:24 Mirtazapine (Remeron) 15 mg BEDTIME ORAL 11/19/17 21:00 12/19/17 20:59 11/19/17 21:55 Ondansetron HCl (Zofran) 4 mg Q4HR PRN IVP Nausea & Vomiting 11/16/17 00:00 12/16/17 00:00 Sodium Chloride 1,000 ml @ 75 mls/hr [id number] IV 11/14/17 23:00 12/14/17 22:59 11/19/17 23:29 Assessment/Plan Status: stable, progressing Assessment/Plan mdd anxiety Tani Keating M.D. Nov 19, 2017 23:49
--- NOTE | 2017-11-19 23:50 | General Progress Note ---
Assessment/Plan Assessment/Plan mdd anxiety radha haynes Subjective Date patient seen: Nov 19, 2017 Neurologic/Psychiatric: Reports: anxiety, depressed, emotional problems Allergies: Coded Allergies: LATEX (Unverified Allergy, Mild, Rash, 09/03/14) QUININE (Unverified Allergy, Unknown, Rash Hives, 05/23/15) Quinine Sulfate Objective Last 24 Hour Vital Signs Date Time Temp Pulse Resp B/P (MAP) Pulse Ox O2 Delivery O2 Flow Rate FiO2 11/19/17 20:00 97.3 104 19 128/74 94 Room Air 97.3 11/19/17 17:21 95 157/87 11/19/17 16:00 97.7 95 19 157/87 100 Room Air 97.7 11/19/17 12:00 98.1 99 19 154/91 100 Room Air 98.1 11/19/17 10:43 87 166/89 11/19/17 10:42 166/89 11/19/17 04:00 98.1 96 20 135/89 96 98.1 11/19/17 00:00 98.2 84 19 165/95 100 98.2 Intake and Output 11/18/17 11/19/17 19:00 07:00 Intake Total 675 ml 1285 ml Balance 675 ml 1285 ml Intake Oral 600 ml IV Total 75 ml 1285 ml # Voids 4 1 # Bowel Movements 4 Laboratory Tests 11/19/17 04:00: White Blood Count 9.1, Red Blood Count 2.60L, Hemoglobin 6.3*L, Hematocrit 20.5L , Mean Corpuscular Volume 79L, Mean Corpuscular Hemoglobin 24.4L, Mean Corpuscular Hemoglobin Concent 30.9L, Red Cell Distribution Width 18.1H, Platelet Count 260, Mean Platelet Volume 4.8L, Neutrophils (%) (Auto) , Lymphocytes (%) (Auto) , Monocytes (%) (Auto) , Eosinophils (%) (Auto) , Basophils (%) (Auto) , Differential Total Cells Counted 100, Neutrophils % ( Manual) 76H, Lymphocytes % (Manual) 17L, Monocytes % (Manual) 6, Eosinophils % ( Manual) 1, Basophils % (Manual) 0, Band Neutrophils 0, Platelet Estimate Adequate, Platelet Morphology Normal, Hypochromasia 1+, Anisocytosis 1+, Schistocytes 1+, Prothrombin Time 15.7H, Prothromb Time International Ratio 1.5H , Activated Partial Thromboplast Time 38H, Sodium Level 145, Potassium Level 2.1 *L, Chloride Level 116H, Carbon Dioxide Level 20L, Anion Gap 9, Blood Urea Nitrogen 4L, Creatinine 0.6, Estimat Glomerular Filtration Rate , Glucose Level 89, Calcium Level 6.8L 11/19/17 16:40: Stool Occult Blood [Pending] Height (Feet): 5 Height (Inches): 3.00 Weight (Pounds): 120 General Appearance: no apparent distress, alert Neurologic: abnormal gait, alert, oriented x 3, responsive, depressed affect Tani Kitchen M.D. Nov 19, 2017 23:50
[2017-11-20] VITALS: BP 129/80
[2017-11-20 04:00] VITALS: BP 100/59
[2017-11-20 05:46] LABS: HEMATOCRIT 20.2 % (37.0-47.0); MEAN CORPUSCULAR VOLUME 78 FL (80-99); PLATELET COUNT 229 K/UL (150-450); RED CELL DISTRIBUTION WIDTH 18.4 % (11.6-14.8); WHITE BLOOD COUNT 10.7 K/UL (4.8-10.8)
[2017-11-20 06:00] LABS: HEMOGLOBIN 6.2 G/DL (12.0-16.0)
[2017-11-20 06:03] LABS: ANION GAP 9 mmol/L (5-15); BLOOD UREA NITROGEN 4 mg/dL (7-18); CALCIUM 7.1 MG/DL (8.5-10.1); CARBON DIOXIDE 20 MMOL/L (21-32); CHLORIDE 116 MMOL/L (98-107); CREATININE 0.6 MG/DL (0.55-1.30); POTASSIUM 3.1 MMOL/L (3.5-5.1); SODIUM 145 MMOL/L (136-145)
[2017-11-20 06:23] LABS: INR 1.7 (0.9-1.1)
[2017-11-20] MEDS: NovoLOG Insulin Flexpen SUBQ SCH ×4 (06:30→20:57)
[2017-11-20 08:00] VITALS: BP 117/68
[2017-11-20] MEDS: metFORMIN 500mg tab ORAL SCH ×2 (09:00→17:35)
[2017-11-20] MEDS: Losartan 50mg tab ORAL SCH (09:00)
[2017-11-20] MEDS: Aspirin EC 81mg tab ORAL SCH (09:00)
[2017-11-20] MEDS: levETIRAcetam 500mg/NS100ml 100 ML IVPB SCH ×2 (09:16→20:55)
[2017-11-20] MEDS ORDERED: Phytonadione 10 MG in D5W 55 ML IVPB ONE (11:00)
[2017-11-20 12:00] VITALS: BP 121/72
[2017-11-20] MEDS ORDERED: POTASSIUM CHLORIDE IV ONE (12:00)
[2017-11-20] MEDS ORDERED: NS IV ONE (12:00)
--- NOTE | 2017-11-20 12:36 | General Progress Note ---
Assessment/Plan Assessment/Plan 1. Anemia due to iron deficiency. The patient is status post EGD showed solitary ulcer. --> Agree with the use of iron for five days. The patient continued to have iron deficiency. --> The patient is Amish and is refusing blood products even though there is increased morbidity, mortality in refusing blood products. --> Continue to monitor. Again, continue to recommend blood transfusions if hemoglobin less than 7. --> Hemoglobin levels downtrending and have been less than 7 2. Nausea, vomiting, and diarrhea. Closely monitor. Zofran has been administered. 3. Anemia of chronic disease. --> Continue the patient on Epogen. 4. Colitis. --> She is on broad-spectrum antibiotics. 5. Amish, refusing blood products. 6. Diarrhea. Recommend the patient to take antibiotics as needed. Check for Clostridium difficile. Subjective Date patient seen: Nov 19, 2017 Constitutional: Denies: no symptoms, chills, diaphoresis, fever, malaise, weakness, other Cardiovascular: Denies: no symptoms, chest pain, edema, irregular heart rate, lightheadedness, palpitations, syncope, other Respiratory: Denies: no symptoms, cough, orthopnea, shortness of breath, SOB with excertion, SOB at rest, sputum, stridor, wheezing, other Gastrointestinal/Abdominal: Denies: no symptoms, abdomen distended, abdominal pain, black stools, tarry stools, blood in stool, constipated, diarrhea, difficulty swallowing, nausea, poor appetite, poor fluid intake, rectal bleeding , vomiting, other Genitourinary: Denies: no symptoms, burning, discharge, frequency, flank pain, hematuria, incontinence, pain, urgency, other Neurologic/Psychiatric: Denies: no symptoms, anxiety, depressed, emotional problems, headache, numbness, paresthesia, pre-existing deficit, seizure, tingling, tremors, weakness, other Hematologic/Lymphatic: Reports: anemia Allergies: Coded Allergies: LATEX (Unverified Allergy, Mild, Rash, 09/03/14) QUININE (Unverified Allergy, Unknown, Rash Hives, 05/23/15) Quinine Sulfate Subjective Hemoglobin remains low. Pt is JW and refusing blood products. No new events. Objective Last 24 Hour Vital Signs Date Time Temp Pulse Resp B/P (MAP) Pulse Ox O2 Delivery O2 Flow Rate FiO2 11/20/17 12:00 97.3 80 18 121/72 95 Nasal Cannula 2.0 97.3 11/20/17 09:00 84 117/68 11/20/17 09:00 117/68 11/20/17 08:00 97.7 84 18 117/68 99 Nasal Cannula 2.0 97.7 11/20/17 04:00 86 11/20/17 04:00 96.7 83 18 100/59 97 Nasal Cannula 2.0 96.7 11/20/17 00:00 97.6 100 18 129/80 93 Nasal Cannula 2.0 97.6 11/20/17 00:00 95 11/19/17 20:00 97.3 104 19 128/74 94 Room Air 97.3 11/19/17 20:00 96 11/19/17 17:21 95 157/87 11/19/17 16:00 97.7 95 19 157/87 100 Room Air 97.7 Intake and Output 11/19/17 11/20/17 19:00 07:00 Intake Total 450 ml Balance 450 ml IV Total 450 ml # Bowel Movements 1 Laboratory Tests 11/19/17 16:40: Stool Occult Blood Positive 11/20/17 05:27: White Blood Count 10.7, Red Blood Count 2.60L, Hemoglobin 6.2*L, Hematocrit 20.2L, Mean Corpuscular Volume 78L, Mean Corpuscular Hemoglobin 23.9L, Mean Corpuscular Hemoglobin Concent 30.7L, Red Cell Distribution Width 18.4H, Platelet Count 229, Mean Platelet Volume 5.4L, Neutrophils (%) (Auto) , Lymphocytes (%) (Auto) , Monocytes (%) (Auto) , Eosinophils (%) (Auto) , Basophils (%) (Auto) , Differential Total Cells Counted 100, Neutrophils % ( Manual) 88H, Lymphocytes % (Manual) 8L, Monocytes % (Manual) 4, Eosinophils % ( Manual) 0, Basophils % (Manual) 0, Band Neutrophils 0, Platelet Estimate Adequate, Platelet Morphology Normal, Hypochromasia 1+, Microcytosis 1+, Ovalocytes Occasional, [place] Cells 1+, Acanthocytes Occasional, Schistocytes Occasional, Prothrombin Time 17.4H, Prothromb Time International Ratio 1.7H, Activated Partial Thromboplast Time 47H, Sodium Level 145, Potassium Level 3.1L , Chloride Level 116H, Carbon Dioxide Level 20L, Anion Gap 9, Blood Urea Nitrogen 4L, Creatinine 0.6, Estimat Glomerular Filtration Rate , Glucose Level 76, Calcium Level 7.1L Height (Feet): 5 Height (Inches): 3.00 Weight (Pounds): 120 Respiratory/Chest: decreased breath sounds Abdomen: soft Dg [place] Nov 20, 2017 12:36
--- NOTE | 2017-11-20 12:48 | Pulmonology Progress Note ---
Assessment/Plan Problems: (1) Anemia (2) colitis (3) Asthma (4) CVA (cerebrovascular accident) (5) Diabetes mellitus Assessment/Plan Neuro evaluation appreciated CT of head reviewed, no new changes, extensive old CVA avoid excessive blood testing on Epogen, Venofer, vitamin check h/h gi f/u sliding sclae respiratory treatment Subjective Interval Events: comfortable, sleeping, d/w pts son at the bed site Allergies: Coded Allergies: LATEX (Unverified Allergy, Mild, Rash, 09/03/14) QUININE (Unverified Allergy, Unknown, Rash Hives, 05/23/15) Quinine Sulfate Objective Last 24 Hour Vital Signs Date Time Temp Pulse Resp B/P (MAP) Pulse Ox O2 Delivery O2 Flow Rate FiO2 11/20/17 12:00 97.3 80 18 121/72 95 Nasal Cannula 2.0 97.3 11/20/17 09:00 84 117/68 11/20/17 09:00 117/68 11/20/17 08:00 97.7 84 18 117/68 99 Nasal Cannula 2.0 97.7 11/20/17 04:00 86 11/20/17 04:00 96.7 83 18 100/59 97 Nasal Cannula 2.0 96.7 11/20/17 00:00 97.6 100 18 129/80 93 Nasal Cannula 2.0 97.6 11/20/17 00:00 95 11/19/17 20:00 97.3 104 19 128/74 94 Room Air 97.3 11/19/17 20:00 96 11/19/17 17:21 95 157/87 11/19/17 16:00 97.7 95 19 157/87 100 Room Air 97.7 Intake and Output 11/19/17 11/20/17 19:00 07:00 Intake Total 450 ml Balance 450 ml IV Total 450 ml # Bowel Movements 1 Objective General Appearance: WD/WN HEENT: normocephalic, atraumatic Respiratory/Chest: chest wall non-tender, lungs clear Cardiovascular: normal peripheral pulses, normal rate Abdomen: normal bowel sounds, soft, non tender Genitourinary: normal external genitalia Extremities: no cyanosis Skin: no rash, no ulcers Laboratory Tests 11/19/17 16:40: Stool Occult Blood Positive 11/20/17 05:27: White Blood Count 10.7, Red Blood Count 2.60L, Hemoglobin 6.2*L, Hematocrit 20.2L, Mean Corpuscular Volume 78L, Mean Corpuscular Hemoglobin 23.9L, Mean Corpuscular Hemoglobin Concent 30.7L, Red Cell Distribution Width 18.4H, Platelet Count 229, Mean Platelet Volume 5.4L, Neutrophils (%) (Auto) , Lymphocytes (%) (Auto) , Monocytes (%) (Auto) , Eosinophils (%) (Auto) , Basophils (%) (Auto) , Differential Total Cells Counted 100, Neutrophils % ( Manual) 88H, Lymphocytes % (Manual) 8L, Monocytes % (Manual) 4, Eosinophils % ( Manual) 0, Basophils % (Manual) 0, Band Neutrophils 0, Platelet Estimate Adequate, Platelet Morphology Normal, Hypochromasia 1+, Microcytosis 1+, Ovalocytes Occasional, [place] Cells 1+, Acanthocytes Occasional, Schistocytes Occasional, Prothrombin Time 17.4H, Prothromb Time International Ratio 1.7H, Activated Partial Thromboplast Time 47H, Sodium Level 145, Potassium Level 3.1L , Chloride Level 116H, Carbon Dioxide Level 20L, Anion Gap 9, Blood Urea Nitrogen 4L, Creatinine 0.6, Estimat Glomerular Filtration Rate , Glucose Level 76, Calcium Level 7.1L Current Medications Medications (Trade) Dose Ordered Sig/Don Route PRN Reason Start Time Stop Time Status Last Admin Dose Admin Acetaminophen/ Hydrocodone Bitart ([place] 5/325) 1 tab Q6HR PRN ORAL For Pain 11/14/17 23:00 11/21/17 22:59 11/19/17 17:20 Aspirin (Ecotrin) 81 mg DAILY ORAL 11/15/17 09:00 12/15/17 08:59 11/19/17 10:42 Carvedilol (Coreg) 3.125 mg BID ORAL 11/15/17 00:00 12/15/17 00:00 11/19/17 17:21 Chlorhexidine Gluconate (Merari-Hex 2%) 1 applic DAILY@2000 TOPIC 11/16/17 20:00 12/16/17 19:59 11/19/17 22:41 Ciprofloxacin 200 ml @ 200 mls/hr Q12HR IV 11/15/17 09:00 11/22/17 08:59 11/20/17 09:52 Clonidine HCl (Catapres Tab) 0.1 mg Q6H PRN ORAL FOR SBP>160 11/18/17 19:30 12/18/17 19:29 Dextrose (Dextrose 50%) STAT PRN IV Hypoglycemia 11/14/17 23:00 12/14/17 22:59 Diphenoxylate HCl/ Atropine (Lomotil) 2.5 mg Q6HR PRN ORAL Diarrhea 11/14/17 23:00 12/14/17 22:59 Epoetin Barak (Procrit (for non ESRD use)) 10,000 units Q48H SUBQ 11/16/17 21:00 12/16/17 20:59 11/18/17 21:34 Folic Acid (Folate) 1 mg DAILY ORAL 11/16/17 09:00 12/16/17 08:59 11/19/17 10:42 Heparin Sodium/ Sodium Chloride (Heparin 2000 units/Ns 1000ml premix) 2,000 unit ONCE PRN INJ PICC LINE PLACEMENT 11/16/17 16:00 Insulin Aspart (NovoLOG) BEFORE MEALS AND HS SUBQ 11/15/17 06:30 12/15/17 06:29 11/20/17 11:15 Levetiracetam 100 ml @ 400 mls/hr Q12HR IVPB 11/19/17 22:00 12/19/17 21:59 11/20/17 09:16 Lorazepam (Ativan 2mg/ml 1ml) 1 mg Q4H PRN IV For Seizures 11/19/17 19:15 11/26/17 19:14 11/19/17 19:14 Losartan Potassium (Cozaar) 50 mg DAILY ORAL 11/15/17 09:00 12/15/17 08:59 11/19/17 10:42 Metformin HCl (Glucophage) 500 mg TWICE A DAY ORAL 11/15/17 09:00 12/15/17 08:59 11/19/17 17:21 Metronidazole 100 ml @ 100 mls/hr Q8HR IVPB 11/15/17 06:00 11/22/17 05:59 11/20/17 07:14 Mirtazapine (Remeron) 15 mg BEDTIME ORAL 11/19/17 21:00 12/19/17 20:59 11/19/17 21:55 Ondansetron HCl (Zofran) 4 mg Q4HR PRN IVP Nausea & Vomiting 11/16/17 00:00 12/16/17 00:00 Potassium Chloride 80 meq/ Sodium Chloride 1,040 ml @ 75 mls/hr [id number] ONCE IV 11/20/17 12:00 11/21/17 01:51 11/20/17 11:50 Sodium Chloride 1,000 ml @ 75 mls/hr [id number] IV 11/14/17 23:00 12/14/17 22:59 11/20/17 11:50 Juana Watson MD Nov 20, 2017 12:47
--- NOTE | 2017-11-20 14:46 | GI Progress Note ---
Assessment/Plan Problems: (1) Nausea, vomiting, and diarrhea ICD Codes: R11.2 - Nausea with vomiting, unspecified; R19.7 - Diarrhea, unspecified SNOMED: 0135945 (2) Pacemaker ICD Codes: Z95.0 - Pacemaker SNOMED: 956727877 (3) Patient is Latter day ICD Codes: Z78.9 - Other specified health status SNOMED: 45342300 (4) Anemia ICD Codes: D64.9 - Anemia, unspecified SNOMED: 031469014 (5) colitis (6) Severe anemia ICD Codes: D64.9 - Anemia, unspecified SNOMED: 343847264 Status: unchanged Status Narrative Discussed with Dr. Diaz. Assessment/Plan DATE OF PROCEDURE: 06/15/2014 PROCEDURE PERFORMED: Upper endoscopy with biopsy and colonoscopy. SUMMARY OF FINDINGS: 1. A solitary ulcer in the distal esophagus, possibly pill induced. 2. Gastritis, status post biopsy. 3. Duodenal diverticulum. 4. A scattered diverticulosis in the left colon. 5. Internal hemorrhoids. home medication reconciliation noted >> patient is on Plavix but none given since inpatient admission. FRUIT CHECKER called yesterday OB stool positive EGD only scheduled for tomorrow, will consider colonoscopy if necessary. - adv diet for dinner, NPO @ [place]. - hold all blood thinners vit K x 1 anemia work up trend H&H, patient is anglican bowel regime ppi fu labs Subjective Subjective limited Objective Last 24 Hour Vital Signs Date Time Temp Pulse Resp B/P (MAP) Pulse Ox O2 Delivery O2 Flow Rate FiO2 11/20/17 12:00 79 11/20/17 12:00 97.3 80 18 121/72 95 Nasal Cannula 2.0 97.3 11/20/17 09:00 84 117/68 11/20/17 09:00 117/68 11/20/17 08:00 84 11/20/17 08:00 97.7 84 18 117/68 99 Nasal Cannula 2.0 97.7 11/20/17 04:00 86 11/20/17 04:00 96.7 83 18 100/59 97 Nasal Cannula 2.0 96.7 11/20/17 00:00 97.6 100 18 129/80 93 Nasal Cannula 2.0 97.6 11/20/17 00:00 95 11/19/17 20:00 97.3 104 19 128/74 94 Room Air 97.3 11/19/17 20:00 96 11/19/17 17:21 95 157/87 11/19/17 16:00 97.7 95 19 157/87 100 Room Air 97.7 Intake and Output 11/19/17 11/20/17 19:00 07:00 Intake Total 450 ml Balance 450 ml IV Total 450 ml # Bowel Movements 1 Laboratory Tests Test 11/19/17 16:40 11/20/17 05:27 Stool Occult Blood Positive (NEGATIVE) White Blood Count 10.7 K/UL (4.8-10.8) Red Blood Count 2.60 M/UL (4.20-5.40) L Hemoglobin 6.2 G/DL (12.0-16.0) *L Hematocrit 20.2 % (37.0-47.0) L Mean Corpuscular Volume 78 FL (80-99) L Mean Corpuscular Hemoglobin 23.9 PG (27.0-31.0) L Mean Corpuscular Hemoglobin Concent 30.7 G/DL (32.0-36.0) L Red Cell Distribution Width 18.4 % (11.6-14.8) H Platelet Count 229 K/UL (150-450) Mean Platelet Volume 5.4 FL (6.5-10.1) L Neutrophils (%) (Auto) % (45.0-75.0) Lymphocytes (%) (Auto) % (20.0-45.0) Monocytes (%) (Auto) % (1.0-10.0) Eosinophils (%) (Auto) % (0.0-3.0) Basophils (%) (Auto) % (0.0-2.0) Differential Total Cells Counted 100 Neutrophils % (Manual) 88 % (45-75) H Lymphocytes % (Manual) 8 % (20-45) L Monocytes % (Manual) 4 % (1-10) Eosinophils % (Manual) 0 % (0-3) Basophils % (Manual) 0 % (0-2) Band Neutrophils 0 % (0-8) Platelet Estimate Adequate Platelet Morphology Normal Hypochromasia 1+ Microcytosis 1+ Ovalocytes Occasional [place] Cells 1+ Acanthocytes Occasional Schistocytes Occasional Prothrombin Time 17.4 SEC (9.30-11.50) H Prothromb Time International Ratio 1.7 (0.9-1.1) H Activated Partial Thromboplast Time 47 SEC (23-33) H Sodium Level 145 MMOL/L (136-145) Potassium Level 3.1 MMOL/L (3.5-5.1) L Chloride Level 116 MMOL/L (98-107) H Carbon Dioxide Level 20 MMOL/L (21-32) L Anion Gap 9 mmol/L (5-15) Blood Urea Nitrogen 4 mg/dL (7-18) L Creatinine 0.6 MG/DL (0.55-1.30) Estimat Glomerular Filtration Rate mL/min (>60) Glucose Level 76 MG/DL (74-106) Calcium Level 7.1 MG/DL (8.5-10.1) L Height (Feet): 5 Height (Inches): 3.00 Weight (Pounds): 120 General Appearance: alert, thin Cardiovascular: normal rate Respiratory/Chest: no respiratory distress Abdominal Exam: soft Jelly Lang NJessica Nov 20, 2017 14:46
[2017-11-20 16:00] VITALS: BP 110/65
[2017-11-20] MEDS: Norco 5mg/325mg tab ORAL PRN (18:49)
--- NOTE | 2017-11-20 19:03 | Internal Med Progress Note ---
Subjective Date of Service: Nov 20, 2017 Physician Name Delfin Martinez Attending Physician Lobito Jones MD Current Medications Medications (Trade) Dose Ordered Sig/Don Route PRN Reason Start Time Stop Time Status Last Admin Dose Admin Acetaminophen/ Hydrocodone Bitart ([place] 5/325) 1 tab Q6HR PRN ORAL For Pain 11/14/17 23:00 11/21/17 22:59 11/20/17 18:49 Aspirin (Ecotrin) 81 mg DAILY ORAL 11/15/17 09:00 12/15/17 08:59 11/19/17 10:42 Carvedilol (Coreg) 3.125 mg BID ORAL 11/15/17 00:00 12/15/17 00:00 11/19/17 17:21 Chlorhexidine Gluconate (Merari-Hex 2%) 1 applic DAILY@2000 TOPIC 11/16/17 20:00 12/16/17 19:59 11/19/17 22:41 Ciprofloxacin 200 ml @ 200 mls/hr Q12HR IV 11/15/17 09:00 11/22/17 08:59 11/20/17 09:52 Clonidine HCl (Catapres Tab) 0.1 mg Q6H PRN ORAL FOR SBP>160 11/18/17 19:30 12/18/17 19:29 Dextrose (Dextrose 50%) STAT PRN IV Hypoglycemia 11/14/17 23:00 12/14/17 22:59 Diphenoxylate HCl/ Atropine (Lomotil) 2.5 mg Q6HR PRN ORAL Diarrhea 11/14/17 23:00 12/14/17 22:59 Epoetin Barak (Procrit (for non ESRD use)) 10,000 units Q48H SUBQ 11/16/17 21:00 12/16/17 20:59 11/18/17 21:34 Folic Acid (Folate) 1 mg DAILY ORAL 11/16/17 09:00 12/16/17 08:59 11/19/17 10:42 Heparin Sodium/ Sodium Chloride (Heparin 2000 units/Ns 1000ml premix) 2,000 unit ONCE PRN INJ PICC LINE PLACEMENT 11/16/17 16:00 Insulin Aspart (NovoLOG) BEFORE MEALS AND HS SUBQ 11/15/17 06:30 12/15/17 06:29 11/20/17 11:15 Levetiracetam 100 ml @ 400 mls/hr Q12HR IVPB 11/19/17 22:00 12/19/17 21:59 11/20/17 09:16 Lorazepam (Ativan 2mg/ml 1ml) 1 mg Q4H PRN IV For Seizures 11/19/17 19:15 11/26/17 19:14 11/19/17 19:14 Losartan Potassium (Cozaar) 50 mg DAILY ORAL 11/15/17 09:00 12/15/17 08:59 11/19/17 10:42 Metformin HCl (Glucophage) 500 mg TWICE A DAY ORAL 11/15/17 09:00 12/15/17 08:59 11/19/17 17:21 Metronidazole 100 ml @ 100 mls/hr Q8HR IVPB 11/15/17 06:00 11/22/17 05:59 11/20/17 13:40 Mirtazapine (Remeron) 15 mg BEDTIME ORAL 11/19/17 21:00 12/19/17 20:59 11/19/17 21:55 Ondansetron HCl (Zofran) 4 mg Q4HR PRN IVP Nausea & Vomiting 11/16/17 00:00 12/16/17 00:00 Potassium Chloride 80 meq/ Sodium Chloride 1,040 ml @ 75 mls/hr [id number] ONCE IV 11/20/17 12:00 11/21/17 01:51 11/20/17 11:50 Sodium Chloride 1,000 ml @ 75 mls/hr [id number] IV 11/14/17 23:00 12/14/17 22:59 11/20/17 11:50 Allergies: Coded Allergies: LATEX (Unverified Allergy, Mild, Rash, 09/03/14) QUININE (Unverified Allergy, Unknown, Rash Hives, 05/23/15) Quinine Sulfate ROS Limited/Unobtainable: No Constitutional: Reports: no symptoms HEENT: Reports: no symptoms Cardiovascular: Reports: no symptoms Respiratory: Reports: no symptoms Gastrointestinal/Abdominal: Reports: no symptoms Genitourinary: Reports: no symptoms Neurologic/Psychiatric: Reports: no symptoms Subjective 76 YO F admitted with diarrhea and dehydration. Endoscopy cancelled due to hypokalemia. Seizure yesterday; no new seizure today. Cover for Int Med-Dr Jones Objective Last Vital Signs Date Time Temp Pulse Resp B/P (MAP) Pulse Ox O2 Delivery O2 Flow Rate FiO2 11/20/17 17:35 81 110/65 11/20/17 16:00 97.7 20 100 Nasal Cannula 2.0 97.7 Laboratory Tests Test 11/20/17 05:27 11/20/17 16:52 White Blood Count 10.7 K/UL (4.8-10.8) Red Blood Count 2.60 M/UL (4.20-5.40) L Hemoglobin 6.2 G/DL (12.0-16.0) *L Hematocrit 20.2 % (37.0-47.0) L Mean Corpuscular Volume 78 FL (80-99) L Mean Corpuscular Hemoglobin 23.9 PG (27.0-31.0) L Mean Corpuscular Hemoglobin Concent 30.7 G/DL (32.0-36.0) L Red Cell Distribution Width 18.4 % (11.6-14.8) H Platelet Count 229 K/UL (150-450) Mean Platelet Volume 5.4 FL (6.5-10.1) L Neutrophils (%) (Auto) % (45.0-75.0) Lymphocytes (%) (Auto) % (20.0-45.0) Monocytes (%) (Auto) % (1.0-10.0) Eosinophils (%) (Auto) % (0.0-3.0) Basophils (%) (Auto) % (0.0-2.0) Differential Total Cells Counted 100 Neutrophils % (Manual) 88 % (45-75) H Lymphocytes % (Manual) 8 % (20-45) L Monocytes % (Manual) 4 % (1-10) Eosinophils % (Manual) 0 % (0-3) Basophils % (Manual) 0 % (0-2) Band Neutrophils 0 % (0-8) Platelet Estimate Adequate Platelet Morphology Normal Hypochromasia 1+ Microcytosis 1+ Ovalocytes Occasional [place] Cells 1+ Acanthocytes Occasional Schistocytes Occasional Prothrombin Time 17.4 SEC (9.30-11.50) H Prothromb Time International Ratio 1.7 (0.9-1.1) H Activated Partial Thromboplast Time 47 SEC (23-33) H Sodium Level 145 MMOL/L (136-145) Potassium Level 3.1 MMOL/L (3.5-5.1) L Chloride Level 116 MMOL/L (98-107) H Carbon Dioxide Level 20 MMOL/L (21-32) L Anion Gap 9 mmol/L (5-15) Blood Urea Nitrogen 4 mg/dL (7-18) L Creatinine 0.6 MG/DL (0.55-1.30) Estimat Glomerular Filtration Rate mL/min (>60) Glucose Level 76 MG/DL (74-106) Calcium Level 7.1 MG/DL (8.5-10.1) L Stool Occult Blood Pending Intake and Output 11/19/17 11/20/17 19:00 07:00 Intake Total 450 ml Balance 450 ml IV Total 450 ml # Bowel Movements 1 Objective General Appearance: mild distress, thin EENT: PERRL/EOMI, normal ENT inspection Neck: non-tender, normal alignment, supple Cardiovascular: normal peripheral pulses, normal rate, regular rhythm, no gallop/murmur, no JVD Respiratory/Chest: chest wall non-tender, lungs clear, normal breath sounds, no respiratory distress, no accessory muscle use Abdomen: normal bowel sounds, no mass, abnormal bowel sounds, decreased bowel sounds, tender Extremities: normal range of motion, non-tender Neurologic: primer charging tool setter II-XII grossly normal, no motor/sensory deficits Skin: normal pigmentation, warm/dry Assessment/Plan Problem List: (1) Diarrhea Assessment & Plan: Colonoscopy cancelled due to hypokalemia and lack of prep (2) Gastritis Assessment & Plan: Endoscopy rescheduled due to hypokalemia-see GI note. (3) Dehydration (4) Abdominal pain (5) CVA (cerebrovascular accident) (6) Left hemiparesis (7) Diabetes mellitus Assessment & Plan: Continue metformin (8) Hypertension Assessment & Plan: continue losartan (9) Anemia Assessment & Plan: Severe. [facility]-refused transfruion. See hematology note. (10) Patient is [facility] (11) Seizure disorder Assessment & Plan: Continue keppra per neurology Status: not improved DELFIN MARTINEZ Nov 20, 2017 19:03
[2017-11-20 20:00] VITALS: BP 114/71
[2017-11-20] MEDS: Dyna-Hex 2% Top Sol 2oz TOPIC SCH (21:06)
[2017-11-20] MEDS: Epogen (for non ESRD use) SUBQ SCH (21:40)
[2017-11-21] VITALS (9 sets, daily range): BP systolic 126–150; BP diastolic 72–96
[2017-11-21] MEDS: Norco 5mg/325mg tab ORAL PRN (04:08)
[2017-11-21] MEDS: NovoLOG Insulin Flexpen SUBQ SCH ×4 (06:19→21:00)
--- NOTE | 2017-11-21 06:34 | Anethesia Preoperative Eval ---
Anesthesia Pre-op PMH/ROS General Date of Evaluation: Nov 21, 2017 Time of Evaluation: 06:32 Anesthesiologist: alessandro ASA Score: ASA 4 Mallampati Score Class I : Soft palate, uvula, fauces, pillars visible Class II: Soft palate, uvula, fauces visible Class III: Soft palate, base of uvula visible Class IV: Only hard plate visible Mallampati Classification: Class II Surgeon: ko Diagnosis: gi bleed Surgical Procedure: egd Anesthesia History: none Social History: smoking - nonsmoker Family History: no anesthesia problems Allergies: Coded Allergies: LATEX (Unverified Allergy, Mild, Rash, 09/03/14) QUININE (Unverified Allergy, Unknown, Rash Hives, 05/23/15) Quinine Sulfate Medications: see eMAR Past Medical History Cardiovascular: Reports: HTN, CAD, [place] Pulmonary: Reports: asthma, COPD Gastrointestinal/Genitourinary: Reports: GERD Neurologic/Psychiatric: Reports: dementia, CVA, depression/anxiety Endocrine: Reports: DM, hypothyroidism HEENT: Reports: cataract (L), cataract (R) Hematology/Immune: Reports: anemia, DVT Other: obesity Anesthesia Pre-op Phys. Exam Physician Exam Last Vital Signs Date Time Temp Pulse Resp B/P (MAP) Pulse Ox O2 Delivery O2 Flow Rate FiO2 11/21/17 04:00 97.7 105 20 131/78 98 Nasal Cannula 2.0 97.7 Constitutional: NAD Neurologic: CN 2-12 intact Cardiovascular: RRR Respiratory: CTA Gastrointestinal: S/NT/ND Airway Exam Mallampati Score: Class II MO: full Neck: supple TMD: 2fb ROM: limited Teeth: missing Dentures: upper Anesthesia Pre-op A/P Labs Labs Test 11/19/17 04:00 11/19/17 16:40 11/20/17 05:27 11/20/17 16:52 White Blood Count 9.1 K/UL (4.8-10.8) 10.7 K/UL (4.8-10.8) Red Blood Count 2.60 M/UL (4.20-5.40) 2.60 M/UL (4.20-5.40) Hemoglobin 6.3 G/DL (12.0-16.0) 6.2 G/DL (12.0-16.0) Hematocrit 20.5 % (37.0-47.0) 20.2 % (37.0-47.0) Mean Corpuscular Volume 79 FL (80-99) 78 FL (80-99) Mean Corpuscular Hemoglobin 24.4 PG (27.0-31.0) 23.9 PG (27.0-31.0) Mean Corpuscular Hemoglobin Concent 30.9 G/DL (32.0-36.0) 30.7 G/DL (32.0-36.0) Red Cell Distribution Width 18.1 % (11.6-14.8) 18.4 % (11.6-14.8) Platelet Count 260 K/UL (150-450) 229 K/UL (150-450) Mean Platelet Volume 4.8 FL (6.5-10.1) 5.4 FL (6.5-10.1) Neutrophils (%) (Auto) % (45.0-75.0) % (45.0-75.0) Lymphocytes (%) (Auto) % (20.0-45.0) % (20.0-45.0) Monocytes (%) (Auto) % (1.0-10.0) % (1.0-10.0) Eosinophils (%) (Auto) % (0.0-3.0) % (0.0-3.0) Basophils (%) (Auto) % (0.0-2.0) % (0.0-2.0) Differential Total Cells Counted 100 100 Neutrophils % (Manual) 76 % (45-75) 88 % (45-75) Lymphocytes % (Manual) 17 % (20-45) 8 % (20-45) Monocytes % (Manual) 6 % (1-10) 4 % (1-10) Eosinophils % (Manual) 1 % (0-3) 0 % (0-3) Basophils % (Manual) 0 % (0-2) 0 % (0-2) Band Neutrophils 0 % (0-8) 0 % (0-8) Platelet Estimate Adequate Adequate Platelet Morphology Normal Normal Hypochromasia 1+ 1+ Anisocytosis 1+ Schistocytes 1+ Occasional Prothrombin Time 15.7 SEC (9.30-11.50) 17.4 SEC (9.30-11.50) Prothromb Time International Ratio 1.5 (0.9-1.1) 1.7 (0.9-1.1) Activated Partial Thromboplast Time 38 SEC (23-33) 47 SEC (23-33) Sodium Level 145 MMOL/L (136-145) 145 MMOL/L (136-145) Potassium Level 2.1 MMOL/L (3.5-5.1) 3.1 MMOL/L (3.5-5.1) Chloride Level 116 MMOL/L (98-107) 116 MMOL/L (98-107) Carbon Dioxide Level 20 MMOL/L (21-32) 20 MMOL/L (21-32) Anion Gap 9 mmol/L (5-15) 9 mmol/L (5-15) Blood Urea Nitrogen 4 mg/dL (7-18) 4 mg/dL (7-18) Creatinine 0.6 MG/DL (0.55-1.30) 0.6 MG/DL (0.55-1.30) Estimat Glomerular Filtration Rate mL/min (>60) mL/min (>60) Glucose Level 89 MG/DL (74-106) 76 MG/DL (74-106) Calcium Level 6.8 MG/DL (8.5-10.1) 7.1 MG/DL (8.5-10.1) Stool Occult Blood Positive (NEGATIVE) Negative (NEGATIVE) Microcytosis 1+ Ovalocytes Occasional [place] Cells 1+ Acanthocytes Occasional Test 11/21/17 09:00 White Blood Count 11.2 K/UL (4.8-10.8) Red Blood Count 2.63 M/UL (4.20-5.40) Hemoglobin 6.4 G/DL (12.0-16.0) Hematocrit 20.4 % (37.0-47.0) Mean Corpuscular Volume 78 FL (80-99) Mean Corpuscular Hemoglobin 24.4 PG (27.0-31.0) Mean Corpuscular Hemoglobin Concent 31.5 G/DL (32.0-36.0) Red Cell Distribution Width 17.7 % (11.6-14.8) Platelet Count 250 K/UL (150-450) Mean Platelet Volume 5.5 FL (6.5-10.1) Neutrophils (%) (Auto) % (45.0-75.0) Lymphocytes (%) (Auto) % (20.0-45.0) Monocytes (%) (Auto) % (1.0-10.0) Eosinophils (%) (Auto) % (0.0-3.0) Basophils (%) (Auto) % (0.0-2.0) Differential Total Cells Counted 100 Neutrophils % (Manual) 81 % (45-75) Lymphocytes % (Manual) 8 % (20-45) Monocytes % (Manual) 11 % (1-10) Eosinophils % (Manual) 0 % (0-3) Basophils % (Manual) 0 % (0-2) Band Neutrophils 0 % (0-8) Platelet Estimate Adequate Platelet Morphology Normal Polychromasia 1+ Hypochromasia 2+ Anisocytosis 2+ Prothrombin Time 15.0 SEC (9.30-11.50) Prothromb Time International Ratio 1.5 (0.9-1.1) Activated Partial Thromboplast Time 34 SEC (23-33) Sodium Level 144 MMOL/L (136-145) Potassium Level 4.0 MMOL/L (3.5-5.1) Chloride Level 117 MMOL/L (98-107) Carbon Dioxide Level 17 MMOL/L (21-32) Anion Gap 10 mmol/L (5-15) Blood Urea Nitrogen 4 mg/dL (7-18) Creatinine 0.7 MG/DL (0.55-1.30) Estimat Glomerular Filtration Rate mL/min (>60) Glucose Level 89 MG/DL (74-106) Calcium Level 6.5 MG/DL (8.5-10.1) Risk Assessment & Plan Assessment: asa4 Plan: mac Status Change Before Surgery: No Pre-Antibiotics Drug: IRAJ Kearns Nov 21, 2017 06:34
[2017-11-21] MEDS ORDERED: Midazolam 2mg/2ml Inj IVP PRN (06:45)
[2017-11-21] MEDS ORDERED: Atropine Inj 1mg/10ml Syr IV PRN (06:45)
[2017-11-21] MEDS ORDERED: DiphenhydrAMINE 50mg/ml Inj IVP PRN (06:45)
[2017-11-21] MEDS ORDERED: fentaNYL 100 mcg/2 mL IV PRN (06:45)
[2017-11-21] MEDS: Aspirin EC 81mg tab ORAL SCH (09:00)
[2017-11-21] MEDS: metFORMIN 500mg tab ORAL SCH ×2 (09:00→18:01)
[2017-11-21] MEDS: Losartan 50mg tab ORAL SCH (09:00)
[2017-11-21 09:18] LABS: HEMATOCRIT 20.4 % (37.0-47.0); MEAN CORPUSCULAR VOLUME 78 FL (80-99); PLATELET COUNT 250 K/UL (150-450); RED BLOOD COUNT 2.63 M/UL (4.20-5.40); RED CELL DISTRIBUTION WIDTH 17.7 % (11.6-14.8); WHITE BLOOD COUNT 11.2 K/UL (4.8-10.8)
[2017-11-21 09:20] LABS: HEMOGLOBIN 6.4 G/DL (12.0-16.0)
[2017-11-21 09:36] LABS: ANION GAP 10 mmol/L (5-15); BLOOD UREA NITROGEN 4 mg/dL (7-18); CALCIUM 6.5 MG/DL (8.5-10.1); CARBON DIOXIDE 17 MMOL/L (21-32); CHLORIDE 117 MMOL/L (98-107); CREATININE 0.7 MG/DL (0.55-1.30); SODIUM 144 MMOL/L (136-145)
[2017-11-21 09:53] LABS: INR 1.5 (0.9-1.1)
--- NOTE | 2017-11-21 09:58 | General Progress Note ---
Assessment/Plan Assessment/Plan 1. Anemia due to iron deficiency. The patient is status post EGD showed solitary ulcer. --> Agree with the use of iron for five days. The patient continued to have iron deficiency. --> The patient is Anabaptist and is refusing blood products even though there is increased morbidity, mortality in refusing blood products. --> Continue to monitor. Again, continue to recommend blood transfusions if hemoglobin less than 7. --> Hemoglobin levels downtrending and have been less than 7 2. Nausea, vomiting, and diarrhea. --> Closely monitor. Zofran has been administered. 3. Anemia of chronic disease. --> Continue the patient on Epogen. 4. Colitis. --> She is on broad-spectrum antibiotics. 5. Anabaptist, refusing blood products. 6. Diarrhea. Recommend the patient to take antibiotics as needed. Check for Clostridium difficile. Subjective Date patient seen: Nov 20, 2017 Constitutional: Denies: no symptoms, chills, diaphoresis, fever, malaise, weakness, other HEENT: Denies: no symptoms, eye pain, blurred vision, tearing, double vision, ear pain, ear discharge, nose pain, nose congestion, throat pain, throat swelling, mouth pain, mouth swelling, other Cardiovascular: Denies: no symptoms, chest pain, edema, irregular heart rate, lightheadedness, palpitations, syncope, other Respiratory: Denies: no symptoms, cough, orthopnea, shortness of breath, SOB with excertion, SOB at rest, sputum, stridor, wheezing, other Gastrointestinal/Abdominal: Denies: no symptoms, abdomen distended, abdominal pain, black stools, tarry stools, blood in stool, constipated, diarrhea, difficulty swallowing, nausea, poor appetite, poor fluid intake, rectal bleeding , vomiting, other Genitourinary: Denies: no symptoms, burning, discharge, frequency, flank pain, hematuria, incontinence, pain, urgency, other Neurologic/Psychiatric: Denies: no symptoms, anxiety, depressed, emotional problems, headache, numbness, paresthesia, pre-existing deficit, seizure, tingling, tremors, weakness, other Hematologic/Lymphatic: Reports: anemia Allergies: Coded Allergies: LATEX (Unverified Allergy, Mild, Rash, 09/03/14) QUININE (Unverified Allergy, Unknown, Rash Hives, 05/23/15) Quinine Sulfate Subjective Hemoglobin remains low. Pt is JW and refusing blood products. No fever or chills. Objective Last 24 Hour Vital Signs Date Time Temp Pulse Resp B/P (MAP) Pulse Ox O2 Delivery O2 Flow Rate FiO2 11/21/17 08:00 98.2 98 18 137/72 98 Nasal Cannula 2.0 98.2 11/21/17 04:00 97.7 105 20 131/78 98 Nasal Cannula 2.0 97.7 11/21/17 04:00 104 11/21/17 00:00 92 11/21/17 00:00 97.7 94 20 126/76 99 Nasal Cannula 2.0 97.7 11/20/17 20:00 97.9 90 19 114/71 92 Nasal Cannula 2.0 97.9 11/20/17 20:00 84 11/20/17 17:35 81 110/65 11/20/17 16:00 82 11/20/17 16:00 97.7 81 20 110/65 100 Nasal Cannula 2.0 97.7 11/20/17 12:00 79 11/20/17 12:00 97.3 80 18 121/72 95 Nasal Cannula 2.0 97.3 Intake and Output 11/20/17 11/21/17 19:00 07:00 Intake Total 1870 ml Output Total 100 ml 200 ml Balance 1770 ml -200 ml Intake Oral 120 ml IV Total 1750 ml Output Urine Total 100 ml 200 ml # Voids 3 # Bowel Movements 1 Laboratory Tests 11/20/17 16:52: Stool Occult Blood [Pending] 11/21/17 09:00: White Blood Count 11.2H, Red Blood Count 2.63L, Hemoglobin 6.4*L, Hematocrit 20.4L, Mean Corpuscular Volume 78L, Mean Corpuscular Hemoglobin 24.4L, Mean Corpuscular Hemoglobin Concent 31.5L, Red Cell Distribution Width 17.7H, Platelet Count 250, Mean Platelet Volume 5.5L, Neutrophils (%) (Auto) , Lymphocytes (%) (Auto) , Monocytes (%) (Auto) , Eosinophils (%) (Auto) , Basophils (%) (Auto) , Neutrophils % (Manual) [Pending], Lymphocytes % (Manual) [Pending], Platelet Estimate [Pending], Platelet Morphology [Pending], Prothrombin Time 15.0H, Prothromb Time International Ratio 1.5H, Activated Partial Thromboplast Time 34H, Sodium Level 144, Potassium Level 4.0, Chloride Level 117H, Carbon Dioxide Level 17L, Anion Gap 10, Blood Urea Nitrogen 4L, Creatinine 0.7, Estimat Glomerular Filtration Rate , Glucose Level 89, Calcium Level 6.5L Height (Feet): 5 Height (Inches): 3.00 Weight (Pounds): 120 General Appearance: no apparent distress Respiratory/Chest: lungs clear Abdomen: soft Dg [place] Nov 21, 2017 09:58
--- NOTE | 2017-11-21 10:43 | Neurology Progress Note ---
Interim History Interim History ROS Limited/Unobtainable: Yes Complaints: i am ok Events: no sz noted Objective Physical Exam Last Vital Signs Date Time Temp Pulse Resp B/P (MAP) Pulse Ox O2 Delivery O2 Flow Rate FiO2 11/21/17 08:00 98.2 98 18 137/72 98 Nasal Cannula 2.0 98.2 Laboratory Tests Test 11/20/17 16:52 11/21/17 09:00 Stool Occult Blood Pending White Blood Count 11.2 K/UL (4.8-10.8) H Red Blood Count 2.63 M/UL (4.20-5.40) L Hemoglobin 6.4 G/DL (12.0-16.0) *L Hematocrit 20.4 % (37.0-47.0) L Mean Corpuscular Volume 78 FL (80-99) L Mean Corpuscular Hemoglobin 24.4 PG (27.0-31.0) L Mean Corpuscular Hemoglobin Concent 31.5 G/DL (32.0-36.0) L Red Cell Distribution Width 17.7 % (11.6-14.8) H Platelet Count 250 K/UL (150-450) Mean Platelet Volume 5.5 FL (6.5-10.1) L Neutrophils (%) (Auto) % (45.0-75.0) Lymphocytes (%) (Auto) % (20.0-45.0) Monocytes (%) (Auto) % (1.0-10.0) Eosinophils (%) (Auto) % (0.0-3.0) Basophils (%) (Auto) % (0.0-2.0) Differential Total Cells Counted 100 Neutrophils % (Manual) 81 % (45-75) H Lymphocytes % (Manual) 8 % (20-45) L Monocytes % (Manual) 11 % (1-10) H Eosinophils % (Manual) 0 % (0-3) Basophils % (Manual) 0 % (0-2) Band Neutrophils 0 % (0-8) Platelet Estimate Adequate Platelet Morphology Normal Polychromasia 1+ Hypochromasia 2+ Anisocytosis 2+ Prothrombin Time 15.0 SEC (9.30-11.50) H Prothromb Time International Ratio 1.5 (0.9-1.1) H Activated Partial Thromboplast Time 34 SEC (23-33) H Sodium Level 144 MMOL/L (136-145) Potassium Level 4.0 MMOL/L (3.5-5.1) Chloride Level 117 MMOL/L (98-107) H Carbon Dioxide Level 17 MMOL/L (21-32) L Anion Gap 10 mmol/L (5-15) Blood Urea Nitrogen 4 mg/dL (7-18) L Creatinine 0.7 MG/DL (0.55-1.30) Estimat Glomerular Filtration Rate mL/min (>60) Glucose Level 89 MG/DL (74-106) Calcium Level 6.5 MG/DL (8.5-10.1) L General: well developed, no acute distress, other - cachectic, pale Head: normocophalic, atraumatic Neck: no rigidity Neurologic Exam Mental Status: awake, other - mostly "i dont know" unable to recall name age, children but follow simple command Speech: no dysarthia Language: other Cranial Nerve II: fundus normal, visual garcía, no papilledema Cranial Nerves III, IV, : PERRLA, EOMI, pupils Cranial Nerve V: normal facial sensations, temporales function normal, masseters function normal, pterygoids function normal Cranial Nerve VII: normal facial expressions Cranial Nerve VIII: no nystagmus Cranial Nerve IX: other - poorgag Cranial Nerve XI: trapezii function normal Cranial Nerve XII: no tongue atrophy/fasciculations Motor System: other - L hemiplegia .R leg 3/5 Sensory: normal pinprick Coordination: other Deep Tendon Reflexes: 0 bicep (L), 0 bicep (R), 0 tricep (L), 0 tricep (R), 0 brachioradialis (L), 0 brachioradialis (R), 0 knee (L), 0 knee (R), 0 ankle (L) , 0 ankle (R) Reflexes: extensor plantar (L), extensor plantar (R) Impression/Recommendations Problems: (1) new onset seizure disorder (2) Dementia arising in the senium and presenium (3) multiple ischemic strokes R>L old (4) AICD (automatic cardioverter/defibrillator) present Status: stable, not improved Recommendations #[id number] keppra 500mg bid NISH Rodriguez Nov 21, 2017 10:43
[2017-11-21] MEDS: levETIRAcetam 500mg/NS100ml 100 ML IVPB SCH ×2 (10:56→21:14)
[2017-11-21] MEDS ORDERED: Propofol 200mg/20ml IV ONE (11:00)
[2017-11-21] MEDS ORDERED: Lidocaine 1% MPF 10mg/ml 5ml ONE (11:00)
--- NOTE | 2017-11-21 11:23 | Pre-Procedure Note/Attestation ---
Pre-Procedure Note/Attestation Complete Prior to Procedure Procedure Narrative: egd Indications for Procedure Pre-Operative Diagnosis: anemia, diarrhea Attestation I attest that I discussed the nature of the procedure; its benefits; risks and complications; and alternatives (and the risks and benefits of such alternatives ), prior to the procedure, with the patient (or the patient's legal traffic representative). I attest that, if there was a reasonable possibility of needing a blood transfusion, the patient (or the patient's legal traffic representative) was given the [facility] standardized written summary, pursuant to the [place] Blood Safety Act ([place] Health and Safety Code # 1645, as amended). I attest that I re-evaluated the patient just prior to the surgery and that there has been no change in the patient's H&P, except as documented below: ORIANA CANALES Nov 21, 2017 11:23
[2017-11-21] MEDS ORDERED: NS 500ML IV ONE (11:25)
--- NOTE | 2017-11-21 11:51 | Endoscopy Procedure Note ---
Endoscopy Procedure Note General Indication for Procedure: ANEMIA Procedures Performed: EGD Operative Findings/Diagnosis: DU Specimen: yes Pt Tolerated Procedure Well: Yes Estimated Blood Loss: none Anesthesia Anesthesiologist: MONIKA Anesthesia: MAC Inserted Devices Implant(s) used?: No GI Core Measures 50 yrs or older w/o bx or poly: Not Applicable 10yrs. F/U not recommended: Not Applicable ORIANA CANALES Nov 21, 2017 11:51
--- NOTE | 2017-11-21 12:37 | Internal Med Progress Note ---
Subjective Date of Service: Nov 21, 2017 Physician Name Delfin Martinez Attending Physician Lobito Jones MD Current Medications Medications (Trade) Dose Ordered Sig/Don Route PRN Reason Start Time Stop Time Status Last Admin Dose Admin Acetaminophen/ Hydrocodone Bitart ([place] 5/325) 1 tab Q6HR PRN ORAL For Pain 11/14/17 23:00 11/21/17 22:59 11/21/17 04:08 Aspirin (Ecotrin) 81 mg DAILY ORAL 11/15/17 09:00 12/15/17 08:59 11/19/17 10:42 Carvedilol (Coreg) 3.125 mg BID ORAL 11/15/17 00:00 12/15/17 00:00 11/19/17 17:21 Chlorhexidine Gluconate (Merari-Hex 2%) 1 applic DAILY@2000 TOPIC 11/16/17 20:00 12/16/17 19:59 11/20/17 21:06 Ciprofloxacin 200 ml @ 200 mls/hr Q12HR IV 11/15/17 09:00 11/22/17 08:59 11/21/17 11:14 Clonidine HCl (Catapres Tab) 0.1 mg Q6H PRN ORAL FOR SBP>160 11/18/17 19:30 12/18/17 19:29 Dextrose (Dextrose 50%) STAT PRN IV Hypoglycemia 11/14/17 23:00 12/14/17 22:59 Diphenoxylate HCl/ Atropine (Lomotil) 2.5 mg Q6HR PRN ORAL Diarrhea 11/14/17 23:00 12/14/17 22:59 Epoetin Barak (Procrit (for non ESRD use)) 10,000 units Q48H SUBQ 11/16/17 21:00 12/16/17 20:59 11/20/17 21:40 Fentanyl Citrate (Sublimaze 100 mcg/2 mL) 25 mcg Q10M PRN IV Moderate Pain (Pain Scale 4-6) 11/21/17 06:45 11/21/17 13:00 Folic Acid (Folate) 1 mg DAILY ORAL 11/16/17 09:00 12/16/17 08:59 11/19/17 10:42 Heparin Sodium/ Sodium Chloride (Heparin 2000 units/Ns 1000ml premix) 2,000 unit ONCE PRN INJ PICC LINE PLACEMENT 11/16/17 16:00 Insulin Aspart (NovoLOG) BEFORE MEALS AND HS SUBQ 11/15/17 06:30 12/15/17 06:29 11/20/17 11:15 Levetiracetam 100 ml @ 400 mls/hr Q12HR IVPB 11/19/17 22:00 12/19/17 21:59 11/21/17 10:56 Lorazepam (Ativan 2mg/ml 1ml) 1 mg Q4H PRN IV For Seizures 11/19/17 19:15 11/26/17 19:14 11/19/17 19:14 Losartan Potassium (Cozaar) 50 mg DAILY ORAL 11/15/17 09:00 12/15/17 08:59 11/19/17 10:42 Metformin HCl (Glucophage) 500 mg TWICE A DAY ORAL 11/15/17 09:00 12/15/17 08:59 11/19/17 17:21 Metronidazole 100 ml @ 100 mls/hr Q8HR IVPB 11/15/17 06:00 11/22/17 05:59 11/21/17 05:23 Mirtazapine (Remeron) 15 mg BEDTIME ORAL 11/19/17 21:00 12/19/17 20:59 11/20/17 20:55 Ondansetron HCl (Zofran) 4 mg Q4HR PRN IVP Nausea & Vomiting 11/16/17 00:00 12/16/17 00:00 Pantoprazole (Protonix) 40 mg DAILY ORAL 11/22/17 09:00 12/22/17 08:59 Sodium Chloride 1,000 ml @ 10 mls/hr Q24H IVLG 11/21/17 06:34 11/21/17 13:00 11/21/17 06:34 Sodium Chloride 1,000 ml @ 75 mls/hr [id number] IV 11/14/17 23:00 12/14/17 22:59 11/20/17 11:50 Allergies: Coded Allergies: LATEX (Unverified Allergy, Mild, Rash, 09/03/14) QUININE (Unverified Allergy, Unknown, Rash Hives, 05/23/15) Quinine Sulfate ROS Limited/Unobtainable: No Constitutional: Reports: no symptoms HEENT: Reports: no symptoms Cardiovascular: Reports: no symptoms Respiratory: Reports: no symptoms Gastrointestinal/Abdominal: Reports: no symptoms Genitourinary: Reports: no symptoms Neurologic/Psychiatric: Reports: no symptoms Subjective 76 YO F admitted with diarrhea and dehydration. Endoscopy cancelled due to hypokalemia. New onset Seizure 11/23/17; no new seizure today. Cover for Int Cheyenne Jones Objective Last Vital Signs Date Time Temp Pulse Resp B/P (MAP) Pulse Ox O2 Delivery O2 Flow Rate FiO2 11/21/17 12:05 86 14 139/79 97 Nasal Cannula 2.0 11/21/17 11:55 98.3 98.3 Laboratory Tests Test 11/20/17 16:52 11/21/17 09:00 Stool Occult Blood Negative (NEGATIVE) White Blood Count 11.2 K/UL (4.8-10.8) H Red Blood Count 2.63 M/UL (4.20-5.40) L Hemoglobin 6.4 G/DL (12.0-16.0) *L Hematocrit 20.4 % (37.0-47.0) L Mean Corpuscular Volume 78 FL (80-99) L Mean Corpuscular Hemoglobin 24.4 PG (27.0-31.0) L Mean Corpuscular Hemoglobin Concent 31.5 G/DL (32.0-36.0) L Red Cell Distribution Width 17.7 % (11.6-14.8) H Platelet Count 250 K/UL (150-450) Mean Platelet Volume 5.5 FL (6.5-10.1) L Neutrophils (%) (Auto) % (45.0-75.0) Lymphocytes (%) (Auto) % (20.0-45.0) Monocytes (%) (Auto) % (1.0-10.0) Eosinophils (%) (Auto) % (0.0-3.0) Basophils (%) (Auto) % (0.0-2.0) Differential Total Cells Counted 100 Neutrophils % (Manual) 81 % (45-75) H Lymphocytes % (Manual) 8 % (20-45) L Monocytes % (Manual) 11 % (1-10) H Eosinophils % (Manual) 0 % (0-3) Basophils % (Manual) 0 % (0-2) Band Neutrophils 0 % (0-8) Platelet Estimate Adequate Platelet Morphology Normal Polychromasia 1+ Hypochromasia 2+ Anisocytosis 2+ Prothrombin Time 15.0 SEC (9.30-11.50) H Prothromb Time International Ratio 1.5 (0.9-1.1) H Activated Partial Thromboplast Time 34 SEC (23-33) H Sodium Level 144 MMOL/L (136-145) Potassium Level 4.0 MMOL/L (3.5-5.1) Chloride Level 117 MMOL/L (98-107) H Carbon Dioxide Level 17 MMOL/L (21-32) L Anion Gap 10 mmol/L (5-15) Blood Urea Nitrogen 4 mg/dL (7-18) L Creatinine 0.7 MG/DL (0.55-1.30) Estimat Glomerular Filtration Rate mL/min (>60) Glucose Level 89 MG/DL (74-106) Calcium Level 6.5 MG/DL (8.5-10.1) L Intake and Output 11/20/17 11/21/17 19:00 07:00 Intake Total 1870 ml Output Total 100 ml 200 ml Balance 1770 ml -200 ml Intake Oral 120 ml IV Total 1750 ml Output Urine Total 100 ml 200 ml # Voids 3 # Bowel Movements 1 Objective General Appearance: mild distress, thin EENT: PERRL/EOMI, normal ENT inspection Neck: non-tender, normal alignment, supple Cardiovascular: normal peripheral pulses, normal rate, regular rhythm, no gallop/murmur, no JVD Respiratory/Chest: chest wall non-tender, lungs clear, normal breath sounds, no respiratory distress, no accessory muscle use Abdomen: normal bowel sounds, no mass, abnormal bowel sounds, decreased bowel sounds, tender Extremities: normal range of motion, non-tender 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 (3) Dehydration (4) Abdominal pain (5) CVA (cerebrovascular accident) (6) Left hemiparesis (7) Diabetes mellitus Assessment & Plan: Continue metformin (8) Hypertension Assessment & Plan: continue losartan (9) Anemia Assessment & Plan: Severe. Yarsani-refused transfruion. See hematology note. (10) Patient is Yarsani (11) Seizure disorder Assessment & Plan: New onset; Continue keppra per neurology Status: not improved DELFIN MARTINEZ Nov 21, 2017 12:37
--- NOTE | 2017-11-21 13:29 | Pulmonology Progress Note ---
Assessment/Plan Problems: (1) Anemia (2) colitis (3) Asthma (4) CVA (cerebrovascular accident) (5) Diabetes mellitus Assessment/Plan EGD didn't show any source of bleeding CT of head reviewed, no new changes, extensive old CVA avoid excessive blood testing on Epogen, Venofer, vitamin check h/h sliding sclae respiratory treatmentdc planning Subjective ROS Limited/Unobtainable: No Constitutional: Reports: no symptoms HEENT: Repors: no symptoms Allergies: Coded Allergies: LATEX (Unverified Allergy, Mild, Rash, 09/03/14) QUININE (Unverified Allergy, Unknown, Rash Hives, 05/23/15) Quinine Sulfate Objective Last 24 Hour Vital Signs Date Time Temp Pulse Resp B/P (MAP) Pulse Ox O2 Delivery O2 Flow Rate FiO2 11/21/17 12:20 98.5 83 14 143/75 96 Nasal Cannula 2.0 98.5 11/21/17 12:05 86 14 139/79 97 Nasal Cannula 2.0 11/21/17 12:00 85 14 146/76 97 Nasal Cannula 2.0 11/21/17 11:55 98.3 88 13 150/78 97 Nasal Cannula 2.0 98.3 11/21/17 08:00 98.2 98 18 137/72 98 Nasal Cannula 2.0 98.2 11/21/17 04:00 97.7 105 20 131/78 98 Nasal Cannula 2.0 97.7 11/21/17 04:00 104 11/21/17 00:00 92 11/21/17 00:00 97.7 94 20 126/76 99 Nasal Cannula 2.0 97.7 11/20/17 20:00 97.9 90 19 114/71 92 Nasal Cannula 2.0 97.9 11/20/17 20:00 84 11/20/17 17:35 81 110/65 11/20/17 16:00 82 11/20/17 16:00 97.7 81 20 110/65 100 Nasal Cannula 2.0 97.7 Intake and Output 11/20/17 11/21/17 19:00 07:00 Intake Total 1870 ml Output Total 100 ml 200 ml Balance 1770 ml -200 ml Intake Oral 120 ml IV Total 1750 ml Output Urine Total 100 ml 200 ml # Voids 3 # Bowel Movements 1 Objective General Appearance: WD/WN HEENT: normocephalic, atraumatic Respiratory/Chest: chest wall non-tender, lungs clear Cardiovascular: normal peripheral pulses, normal rate Abdomen: normal bowel sounds, soft, non tender Genitourinary: normal external genitalia Extremities: no cyanosis Skin: no rash, no ulcers Laboratory Tests 11/20/17 16:52: Stool Occult Blood Negative 11/21/17 09:00: White Blood Count 11.2H, Red Blood Count 2.63L, Hemoglobin 6.4*L, Hematocrit 20.4L, Mean Corpuscular Volume 78L, Mean Corpuscular Hemoglobin 24.4L, Mean Corpuscular Hemoglobin Concent 31.5L, Red Cell Distribution Width 17.7H, Platelet Count 250, Mean Platelet Volume 5.5L, Neutrophils (%) (Auto) , Lymphocytes (%) (Auto) , Monocytes (%) (Auto) , Eosinophils (%) (Auto) , Basophils (%) (Auto) , Differential Total Cells Counted 100, Neutrophils % ( Manual) 81H, Lymphocytes % (Manual) 8L, Monocytes % (Manual) 11H, Eosinophils % (Manual) 0, Basophils % (Manual) 0, Band Neutrophils 0, Platelet Estimate Adequate, Platelet Morphology Normal, Polychromasia 1+, Hypochromasia 2+, Anisocytosis 2+, Prothrombin Time 15.0H, Prothromb Time International Ratio 1.5H , Activated Partial Thromboplast Time 34H, Sodium Level 144, Potassium Level 4.0 , Chloride Level 117H, Carbon Dioxide Level 17L, Anion Gap 10, Blood Urea Nitrogen 4L, Creatinine 0.7, Estimat Glomerular Filtration Rate , Glucose Level 89, Calcium Level 6.5L Current Medications Medications (Trade) Dose Ordered Sig/Don Route PRN Reason Start Time Stop Time Status Last Admin Dose Admin Acetaminophen/ Hydrocodone Bitart ([place] 5/325) 1 tab Q6HR PRN ORAL For Pain 11/14/17 23:00 11/21/17 22:59 11/21/17 04:08 Aspirin (Ecotrin) 81 mg DAILY ORAL 11/15/17 09:00 12/15/17 08:59 11/19/17 10:42 Carvedilol (Coreg) 3.125 mg BID ORAL 11/15/17 00:00 12/15/17 00:00 11/19/17 17:21 Chlorhexidine Gluconate (Merari-Hex 2%) 1 applic DAILY@2000 TOPIC 11/16/17 20:00 12/16/17 19:59 11/20/17 21:06 Ciprofloxacin 200 ml @ 200 mls/hr Q12HR IV 11/15/17 09:00 11/22/17 08:59 11/21/17 11:14 Clonidine HCl (Catapres Tab) 0.1 mg Q6H PRN ORAL FOR SBP>160 11/18/17 19:30 12/18/17 19:29 Dextrose (Dextrose 50%) STAT PRN IV Hypoglycemia 11/14/17 23:00 12/14/17 22:59 Diphenoxylate HCl/ Atropine (Lomotil) 2.5 mg Q6HR PRN ORAL Diarrhea 11/14/17 23:00 12/14/17 22:59 Epoetin Barak (Procrit (for non ESRD use)) 10,000 units Q48H SUBQ 11/16/17 21:00 12/16/17 20:59 11/20/17 21:40 Folic Acid (Folate) 1 mg DAILY ORAL 11/16/17 09:00 12/16/17 08:59 11/19/17 10:42 Heparin Sodium/ Sodium Chloride (Heparin 2000 units/Ns 1000ml premix) 2,000 unit ONCE PRN INJ PICC LINE PLACEMENT 11/16/17 16:00 Insulin Aspart (NovoLOG) BEFORE MEALS AND HS SUBQ 11/15/17 06:30 12/15/17 06:29 11/20/17 11:15 Levetiracetam 100 ml @ 400 mls/hr Q12HR IVPB 11/19/17 22:00 12/19/17 21:59 11/21/17 10:56 Lorazepam (Ativan 2mg/ml 1ml) 1 mg Q4H PRN IV For Seizures 11/19/17 19:15 11/26/17 19:14 11/19/17 19:14 Losartan Potassium (Cozaar) 50 mg DAILY ORAL 11/15/17 09:00 12/15/17 08:59 11/19/17 10:42 Metformin HCl (Glucophage) 500 mg TWICE A DAY ORAL 11/15/17 09:00 12/15/17 08:59 11/19/17 17:21 Metronidazole 100 ml @ 100 mls/hr Q8HR IVPB 11/15/17 06:00 11/22/17 05:59 11/21/17 05:23 Mirtazapine (Remeron) 15 mg BEDTIME ORAL 11/19/17 21:00 12/19/17 20:59 11/20/17 20:55 Ondansetron HCl (Zofran) 4 mg Q4HR PRN IVP Nausea & Vomiting 11/16/17 00:00 12/16/17 00:00 Pantoprazole (Protonix) 40 mg DAILY ORAL 11/22/17 09:00 12/22/17 08:59 Sodium Chloride 1,000 ml @ 75 mls/hr [id number] IV 11/14/17 23:00 12/14/17 22:59 11/20/17 11:50 Juana Watson MD Nov 21, 2017 13:29
[2017-11-21] MEDS ORDERED: KEPPRA500 MG ORAL (13:54)
--- NOTE | 2017-11-21 14:26 | Immediate Post-Op Evaluation ---
Immediate Post-Op Evalulation Immediate Post-Op Evalulation Procedure: egd Date of Evaluation: Nov 21, 2017 Time of Evaluation: 12:07 IV Fluids: 100ml 0.9ns Blood Products: none Estimated Blood Loss: negligible Blood Pressure Systolic: 139 Blood Pressure Diastolic: 77 Pulse Rate: 89 Respiratory Rate: 18 O2 Sat by Pulse Oximetry: 100 Temperature (Fahrenheit): 98.3 Pain Score (1-10): 0 Nausea: No Vomiting: No Complications none Patient Status: awake, reacts, patent Hydration Status: adequate Drug: IRAJ Kearns Nov 21, 2017 14:25
--- NOTE | 2017-11-21 14:27 | 48 Hour Post Anesthesia Eval ---
Post Anesthesia Evaluation Procedure: egd Date of Evaluation: Nov 21, 2017 Time of Evaluation: 12:09 Blood Pressure Systolic: 146 0: 76 Pulse Rate: 88 Respiratory Rate: 18 Temperature (Fahrenheit): 97.3 O2 Sat by Pulse Oximetry: 100 Airway: patent Nausea: No Vomiting: No Pain Intensity: 0 Hydration Status: adequate Cardiopulmonary Status: stable Mental Status/LOC: patient returned to baseline Post-Anesthesia Complications: none Follow-up care needed: N/A IRAJ PAULINO Nov 21, 2017 14:27
--- NOTE | 2017-11-21 16:26 | Physician Query ---
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 : [phone] Exercise your independent professional judgment when responding to the query. Questions asked do not imply a particular answer is desired or expected. We greatly appreciate your clarification on this issue. 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 [] YES [] NO [] Clinically Undeterminable Please also document in your Progress Notes and/or Discharge Summary and indicate if the condition was present on admission. Dr. DELFIN MARTINEZ Date/Time MTDD
[2017-11-21] MEDS ORDERED: Flu Vaccine Quadrivalent 0.5ml IM ONE (17:30)
[2017-11-21] MEDS: Dyna-Hex 2% Top Sol 2oz TOPIC SCH (21:13)
--- NOTE | 2017-11-21 22:06 | General Progress Note ---
Assessment/Plan Status: stable Assessment/Plan mdd anxiety radha haynes Subjective Date patient seen: Nov 21, 2017 Neurologic/Psychiatric: Reports: anxiety, depressed, emotional problems Allergies: Coded Allergies: LATEX (Unverified Allergy, Mild, Rash, 09/03/14) QUININE (Unverified Allergy, Unknown, Rash Hives, 05/23/15) Quinine Sulfate Objective Last 24 Hour Vital Signs Date Time Temp Pulse Resp B/P (MAP) Pulse Ox O2 Delivery O2 Flow Rate FiO2 11/21/17 20:00 98.7 84 21 135/96 96 Nasal Cannula 2.0 98.7 11/21/17 20:00 84 11/21/17 18:02 81 140/76 11/21/17 16:00 97.9 81 20 140/76 100 Nasal Cannula 2.0 97.9 11/21/17 16:00 81 11/21/17 14:27 207.1 88 18 100 11/21/17 14:25 208.9 89 18 100 11/21/17 12:20 98.5 83 14 143/75 96 Nasal Cannula 2.0 98.5 11/21/17 12:05 86 14 139/79 97 Nasal Cannula 2.0 11/21/17 12:00 103 11/21/17 12:00 85 14 146/76 97 Nasal Cannula 2.0 11/21/17 11:55 98.3 88 13 150/78 97 Nasal Cannula 2.0 98.3 11/21/17 08:00 98.2 98 18 137/72 98 Nasal Cannula 2.0 98.2 11/21/17 08:00 94 11/21/17 04:00 97.7 105 20 131/78 98 Nasal Cannula 2.0 97.7 11/21/17 04:00 104 11/21/17 00:00 92 11/21/17 00:00 97.7 94 20 126/76 99 Nasal Cannula 2.0 97.7 Intake and Output 11/20/17 11/21/17 19:00 07:00 Intake Total 1870 ml Output Total 100 ml 200 ml Balance 1770 ml -200 ml Intake Oral 120 ml IV Total 1750 ml Output Urine Total 100 ml 200 ml # Voids 3 # Bowel Movements 1 Laboratory Tests 11/21/17 09:00: White Blood Count 11.2H, Red Blood Count 2.63L, Hemoglobin 6.4*L, Hematocrit 20.4L, Mean Corpuscular Volume 78L, Mean Corpuscular Hemoglobin 24.4L, Mean Corpuscular Hemoglobin Concent 31.5L, Red Cell Distribution Width 17.7H, Platelet Count 250, Mean Platelet Volume 5.5L, Neutrophils (%) (Auto) , Lymphocytes (%) (Auto) , Monocytes (%) (Auto) , Eosinophils (%) (Auto) , Basophils (%) (Auto) , Differential Total Cells Counted 100, Neutrophils % ( Manual) 81H, Lymphocytes % (Manual) 8L, Monocytes % (Manual) 11H, Eosinophils % (Manual) 0, Basophils % (Manual) 0, Band Neutrophils 0, Platelet Estimate Adequate, Platelet Morphology Normal, Polychromasia 1+, Hypochromasia 2+, Anisocytosis 2+, Prothrombin Time 15.0H, Prothromb Time International Ratio 1.5H , Activated Partial Thromboplast Time 34H, Sodium Level 144, Potassium Level 4.0 , Chloride Level 117H, Carbon Dioxide Level 17L, Anion Gap 10, Blood Urea Nitrogen 4L, Creatinine 0.7, Estimat Glomerular Filtration Rate , Glucose Level 89, Calcium Level 6.5L Height (Feet): 5 Height (Inches): 3.00 Weight (Pounds): 120 General Appearance: no apparent distress, alert Neurologic: depressed affect Tani Kitchen M.D. Nov 21, 2017 22:06
--- NOTE | 2017-11-21 22:08 | Geriatric Progress Note ---
Assessment/Plan Assessment/Plan mdd anxiety remeron zoloft Subjective Interval Events 3. Mood/Memory: Reports: prior hx, anxiety, depressed feelings, emotional problems Geriatric Geriatric Last 24 Hour Vital Signs Date Time Temp Pulse Resp B/P (MAP) Pulse Ox O2 Delivery O2 Flow Rate FiO2 11/21/17 20:00 98.7 84 21 135/96 96 Nasal Cannula 2.0 98.7 11/21/17 20:00 84 11/21/17 18:02 81 140/76 11/21/17 16:00 97.9 81 20 140/76 100 Nasal Cannula 2.0 97.9 11/21/17 16:00 81 11/21/17 14:27 207.1 88 18 100 11/21/17 14:25 208.9 89 18 100 11/21/17 12:20 98.5 83 14 143/75 96 Nasal Cannula 2.0 98.5 11/21/17 12:05 86 14 139/79 97 Nasal Cannula 2.0 11/21/17 12:00 103 11/21/17 12:00 85 14 146/76 97 Nasal Cannula 2.0 11/21/17 11:55 98.3 88 13 150/78 97 Nasal Cannula 2.0 98.3 11/21/17 08:00 98.2 98 18 137/72 98 Nasal Cannula 2.0 98.2 11/21/17 08:00 94 11/21/17 04:00 97.7 105 20 131/78 98 Nasal Cannula 2.0 97.7 11/21/17 04:00 104 11/21/17 00:00 92 11/21/17 00:00 97.7 94 20 126/76 99 Nasal Cannula 2.0 97.7 Intake and Output 11/20/17 11/21/17 19:00 07:00 Intake Total 1870 ml Output Total 100 ml 200 ml Balance 1770 ml -200 ml Intake Oral 120 ml IV Total 1750 ml Output Urine Total 100 ml 200 ml # Voids 3 # Bowel Movements 1 Laboratory Tests Test 11/21/17 09:00 White Blood Count 11.2 K/UL (4.8-10.8) H Red Blood Count 2.63 M/UL (4.20-5.40) L Hemoglobin 6.4 G/DL (12.0-16.0) *L Hematocrit 20.4 % (37.0-47.0) L Mean Corpuscular Volume 78 FL (80-99) L Mean Corpuscular Hemoglobin 24.4 PG (27.0-31.0) L Mean Corpuscular Hemoglobin Concent 31.5 G/DL (32.0-36.0) L Red Cell Distribution Width 17.7 % (11.6-14.8) H Platelet Count 250 K/UL (150-450) Mean Platelet Volume 5.5 FL (6.5-10.1) L Neutrophils (%) (Auto) % (45.0-75.0) Lymphocytes (%) (Auto) % (20.0-45.0) Monocytes (%) (Auto) % (1.0-10.0) Eosinophils (%) (Auto) % (0.0-3.0) Basophils (%) (Auto) % (0.0-2.0) Differential Total Cells Counted 100 Neutrophils % (Manual) 81 % (45-75) H Lymphocytes % (Manual) 8 % (20-45) L Monocytes % (Manual) 11 % (1-10) H Eosinophils % (Manual) 0 % (0-3) Basophils % (Manual) 0 % (0-2) Band Neutrophils 0 % (0-8) Platelet Estimate Adequate Platelet Morphology Normal Polychromasia 1+ Hypochromasia 2+ Anisocytosis 2+ Prothrombin Time 15.0 SEC (9.30-11.50) H Prothromb Time International Ratio 1.5 (0.9-1.1) H Activated Partial Thromboplast Time 34 SEC (23-33) H Sodium Level 144 MMOL/L (136-145) Potassium Level 4.0 MMOL/L (3.5-5.1) Chloride Level 117 MMOL/L (98-107) H Carbon Dioxide Level 17 MMOL/L (21-32) L Anion Gap 10 mmol/L (5-15) Blood Urea Nitrogen 4 mg/dL (7-18) L Creatinine 0.7 MG/DL (0.55-1.30) Estimat Glomerular Filtration Rate mL/min (>60) Glucose Level 89 MG/DL (74-106) Calcium Level 6.5 MG/DL (8.5-10.1) L Current Medications Medications (Trade) Dose Ordered Sig/Don Route PRN Reason Start Time Stop Time Status Last Admin Dose Admin Acetaminophen/ Hydrocodone Bitart ([place] 5/325) 1 tab Q6HR PRN ORAL For Pain 11/14/17 23:00 11/21/17 22:59 11/21/17 04:08 Aspirin (Ecotrin) 81 mg DAILY ORAL 11/15/17 09:00 12/15/17 08:59 11/19/17 10:42 Carvedilol (Coreg) 3.125 mg BID ORAL 11/15/17 00:00 12/15/17 00:00 11/21/17 18:02 Chlorhexidine Gluconate (Merari-Hex 2%) 1 applic DAILY@2000 TOPIC 11/16/17 20:00 12/16/17 19:59 11/21/17 21:13 Ciprofloxacin 200 ml @ 200 mls/hr Q12HR IV 11/15/17 09:00 11/22/17 08:59 11/21/17 21:13 Clonidine HCl (Catapres Tab) 0.1 mg Q6H PRN ORAL FOR SBP>160 11/18/17 19:30 12/18/17 19:29 Dextrose (Dextrose 50%) STAT PRN IV Hypoglycemia 11/14/17 23:00 12/14/17 22:59 Diphenoxylate HCl/ Atropine (Lomotil) 2.5 mg Q6HR PRN ORAL Diarrhea 11/14/17 23:00 12/14/17 22:59 Epoetin Barak (Procrit (for non ESRD use)) 10,000 units Q48H SUBQ 11/16/17 21:00 12/16/17 20:59 11/20/17 21:40 Folic Acid (Folate) 1 mg DAILY ORAL 11/16/17 09:00 12/16/17 08:59 11/19/17 10:42 Heparin Sodium/ Sodium Chloride (Heparin 2000 units/Ns 1000ml premix) 2,000 unit ONCE PRN INJ PICC LINE PLACEMENT 11/16/17 16:00 Insulin Aspart (NovoLOG) BEFORE MEALS AND HS SUBQ 11/15/17 06:30 12/15/17 06:29 11/20/17 11:15 Levetiracetam 100 ml @ 400 mls/hr Q12HR IVPB 11/19/17 22:00 12/19/17 21:59 11/21/17 21:14 Lorazepam (Ativan 2mg/ml 1ml) 1 mg Q4H PRN IV For Seizures 11/19/17 19:15 11/26/17 19:14 11/19/17 19:14 Losartan Potassium (Cozaar) 50 mg DAILY ORAL 11/15/17 09:00 12/15/17 08:59 11/19/17 10:42 Metformin HCl (Glucophage) 500 mg TWICE A DAY ORAL 11/15/17 09:00 12/15/17 08:59 11/21/17 18:01 Metronidazole 100 ml @ 100 mls/hr Q8HR IVPB 11/15/17 06:00 11/22/17 05:59 11/21/17 17:37 Mirtazapine (Remeron) 15 mg BEDTIME ORAL 11/19/17 21:00 12/19/17 20:59 11/21/17 21:13 Ondansetron HCl (Zofran) 4 mg Q4HR PRN IVP Nausea & Vomiting 11/16/17 00:00 12/16/17 00:00 Pantoprazole (Protonix) 40 mg DAILY ORAL 11/22/17 09:00 12/22/17 08:59 Sodium Chloride 1,000 ml @ 75 mls/hr [id number] IV 11/14/17 23:00 12/14/17 22:59 11/21/17 17:37 Height (Feet): 5 Height (Inches): 3.00 Weight (Pounds): 120 General Appearance: alert, mild distress Psychiatric Orientation: person, place Affect: Tani Kaufman M.D. Nov 21, 2017 22:08
[2017-11-22] VITALS: BP 154/93
[2017-11-22 04:00] VITALS: BP 131/92
[2017-11-22] MEDS: NovoLOG Insulin Flexpen SUBQ SCH ×4 (06:14→21:48)
[2017-11-22 07:07] LABS: HEMATOCRIT 20.2 % (37.0-47.0); MEAN CORPUSCULAR VOLUME 78 FL (80-99); PLATELET COUNT 229 K/UL (150-450); RED BLOOD COUNT 2.59 M/UL (4.20-5.40); RED CELL DISTRIBUTION WIDTH 19.2 % (11.6-14.8); WHITE BLOOD COUNT 10.8 K/UL (4.8-10.8)
[2017-11-22 07:17] LABS: HEMOGLOBIN 6.4 G/DL (12.0-16.0)
[2017-11-22 07:30] LABS: ANION GAP 13 mmol/L (5-15); BLOOD UREA NITROGEN 4 mg/dL (7-18); CALCIUM 6.7 MG/DL (8.5-10.1); CARBON DIOXIDE 15 MMOL/L (21-32); CHLORIDE 117 MMOL/L (98-107); CREATININE 0.6 MG/DL (0.55-1.30); PHOSPHORUS 1.3 MG/DL (2.5-4.9); POTASSIUM 3.1 MMOL/L (3.5-5.1); SODIUM 145 MMOL/L (136-145)
[2017-11-22 08:00] VITALS: BP 147/83
[2017-11-22] MEDS: levETIRAcetam 500mg/NS100ml 100 ML IVPB SCH ×2 (08:27→21:51)
[2017-11-22] MEDS: metFORMIN 500mg tab ORAL SCH ×2 (08:28→19:06)
[2017-11-22] MEDS: Aspirin EC 81mg tab ORAL SCH (08:28)
[2017-11-22] MEDS: Losartan 50mg tab ORAL SCH (08:29)
--- NOTE | 2017-11-22 10:31 | GI Progress Note ---
Assessment/Plan Problems: (1) Nausea, vomiting, and diarrhea ICD Codes: R11.2 - Nausea with vomiting, unspecified; R19.7 - Diarrhea, unspecified SNOMED: 6786825 (2) Pacemaker ICD Codes: Z95.0 - Pacemaker SNOMED: 157128027 (3) Patient is Gnosticism ICD Codes: Z78.9 - Other specified health status SNOMED: 61805987 (4) Anemia ICD Codes: D64.9 - Anemia, unspecified SNOMED: 789781511 (5) colitis (6) Severe anemia ICD Codes: D64.9 - Anemia, unspecified SNOMED: 873672206 Status: stable, unchanged Status Narrative Discussed with Dr. Diaz. Assessment/Plan home medication reconciliation noted >> patient is on Plavix but none given since inpatient admission >> to be resumed by primary/cardio OB stool positive, second sample is negative S/P EGD >> duodenal ulcer >> possible source of bleed, second OB stool now negative >> fu H. Pylori serology trend H&H, patient is alevism bowel regime ppi fu labs Subjective Subjective limited Objective Last 24 Hour Vital Signs Date Time Temp Pulse Resp B/P (MAP) Pulse Ox O2 Delivery O2 Flow Rate FiO2 11/22/17 08:29 94 142/92 11/22/17 08:29 142/92 11/22/17 08:00 97.7 96 18 147/83 95 Room Air 97.7 11/22/17 08:00 96 11/22/17 04:00 97.5 91 22 131/92 99 Nasal Cannula 2.0 97.5 11/22/17 04:00 94 11/22/17 00:00 78 11/22/17 00:00 97.0 67 22 154/93 90 Nasal Cannula 2.0 97.0 11/21/17 20:00 98.7 84 21 135/96 96 Nasal Cannula 2.0 98.7 11/21/17 20:00 84 11/21/17 18:02 81 140/76 11/21/17 16:00 97.9 81 20 140/76 100 Nasal Cannula 2.0 97.9 11/21/17 16:00 81 11/21/17 14:27 207.1 88 18 100 11/21/17 14:25 208.9 89 18 100 3/14/18 12:20 98.5 83 14 143/75 96 Nasal Cannula 2.0 98.5 11/21/17 12:05 86 14 139/79 97 Nasal Cannula 2.0 11/21/17 12:00 103 11/21/17 12:00 85 14 146/76 97 Nasal Cannula 2.0 11/21/17 11:55 98.3 88 13 150/78 97 Nasal Cannula 2.0 98.3 Intake and Output 11/21/17 11/22/17 19:00 07:00 Intake Total 1075 ml 1625 ml Balance 1075 ml 1625 ml IV Total 1075 ml 1625 ml # Voids 5 2 # Bowel Movements 2 1 Laboratory Tests Test 11/22/17 05:30 White Blood Count 10.8 K/UL (4.8-10.8) Red Blood Count 2.59 M/UL (4.20-5.40) L Hemoglobin 6.4 G/DL (12.0-16.0) *L Hematocrit 20.2 % (37.0-47.0) L Mean Corpuscular Volume 78 FL (80-99) L Mean Corpuscular Hemoglobin 24.8 PG (27.0-31.0) L Mean Corpuscular Hemoglobin Concent 31.8 G/DL (32.0-36.0) L Red Cell Distribution Width 19.2 % (11.6-14.8) H Platelet Count 229 K/UL (150-450) Mean Platelet Volume 5.2 FL (6.5-10.1) L Neutrophils (%) (Auto) % (45.0-75.0) Lymphocytes (%) (Auto) % (20.0-45.0) Monocytes (%) (Auto) % (1.0-10.0) Eosinophils (%) (Auto) % (0.0-3.0) Basophils (%) (Auto) % (0.0-2.0) Differential Total Cells Counted 100 Neutrophils % (Manual) 87 % (45-75) H Lymphocytes % (Manual) 10 % (20-45) L Monocytes % (Manual) 2 % (1-10) Eosinophils % (Manual) 1 % (0-3) Basophils % (Manual) 0 % (0-2) Band Neutrophils 0 % (0-8) Platelet Estimate Adequate Platelet Morphology Normal Polychromasia 1+ Hypochromasia 2+ Anisocytosis 2+ Microcytosis 1+ [place] Cells 1+ Schistocytes 1+ Sodium Level 145 MMOL/L (136-145) Potassium Level 3.1 MMOL/L (3.5-5.1) L Chloride Level 117 MMOL/L (98-107) H Carbon Dioxide Level 15 MMOL/L (21-32) L Anion Gap 13 mmol/L (5-15) Blood Urea Nitrogen 4 mg/dL (7-18) L Creatinine 0.6 MG/DL (0.55-1.30) Estimat Glomerular Filtration Rate mL/min (>60) Glucose Level 89 MG/DL (74-106) Calcium Level 6.7 MG/DL (8.5-10.1) L Phosphorus Level 1.3 MG/DL (2.5-4.9) L Magnesium Level 0.5 MG/DL (1.8-2.4) *L Height (Feet): 5 Height (Inches): 3.00 Weight (Pounds): 120 General Appearance: WD/WN, no apparent distress, alert, thin Cardiovascular: normal rate Respiratory/Chest: normal breath sounds, no respiratory distress Abdominal Exam: normal bowel sounds, non tender, soft Extremities: non-tender Jelly Lang N.P. Nov 22, 2017 10:31
[2017-11-22 12:00] VITALS: BP 150/87
--- NOTE | 2017-11-22 12:42 | General Progress Note ---
Assessment/Plan Assessment/Plan 1. Anemia due to iron deficiency. The patient is status post EGD showed solitary ulcer. --> Agree with the use of iron for five days. The patient continued to have iron deficiency. --> The patient is Jehovah's witness and is refusing blood products even though there is increased morbidity, mortality in refusing blood products. --> Continue to monitor. Again, continue to recommend blood transfusions if hemoglobin less than 7. --> Hemoglobin levels downtrending and have been less than 7. No new events. 2. Nausea, vomiting, and diarrhea. --> Closely monitor. Zofran has been administered. 3. Anemia of chronic disease. --> Continue the patient on Epogen. 4. Colitis. --> She is on broad-spectrum antibiotics. 5. Jehovah's witness, refusing blood products. 6. Diarrhea. Recommend the patient to take antibiotics as needed. Check for Clostridium difficile. Subjective Date patient seen: Nov 21, 2017 Constitutional: Denies: no symptoms, chills, diaphoresis, fever, malaise, weakness, other HEENT: Denies: no symptoms, eye pain, blurred vision, tearing, double vision, ear pain, ear discharge, nose pain, nose congestion, throat pain, throat swelling, mouth pain, mouth swelling, other Cardiovascular: Denies: no symptoms, chest pain, edema, irregular heart rate, lightheadedness, palpitations, syncope, other Respiratory: Denies: no symptoms, cough, orthopnea, shortness of breath, SOB with excertion, SOB at rest, sputum, stridor, wheezing, other Gastrointestinal/Abdominal: Denies: no symptoms, abdomen distended, abdominal pain, black stools, tarry stools, blood in stool, constipated, diarrhea, difficulty swallowing, nausea, poor appetite, poor fluid intake, rectal bleeding , vomiting, other Genitourinary: Denies: no symptoms, burning, discharge, frequency, flank pain, hematuria, incontinence, pain, urgency, other Neurologic/Psychiatric: Denies: no symptoms, anxiety, depressed, emotional problems, headache, numbness, paresthesia, pre-existing deficit, seizure, tingling, tremors, weakness, other Hematologic/Lymphatic: Reports: anemia Allergies: Coded Allergies: LATEX (Unverified Allergy, Mild, Rash, 09/03/14) QUININE (Unverified Allergy, Unknown, Rash Hives, 05/23/15) Quinine Sulfate Subjective Hemoglobin remains low. No acute distress. Afebrile. Objective Last 24 Hour Vital Signs Date Time Temp Pulse Resp B/P (MAP) Pulse Ox O2 Delivery O2 Flow Rate FiO2 11/22/17 08:29 94 142/92 11/22/17 08:29 142/92 11/22/17 08:00 97.7 96 18 147/83 95 Room Air 97.7 11/22/17 08:00 96 11/22/17 04:00 97.5 91 22 131/92 99 Nasal Cannula 2.0 97.5 11/22/17 04:00 94 11/22/17 00:00 78 11/22/17 00:00 97.0 67 22 154/93 90 Nasal Cannula 2.0 97.0 11/21/17 20:00 98.7 84 21 135/96 96 Nasal Cannula 2.0 98.7 11/21/17 20:00 84 11/21/17 18:02 81 140/76 11/21/17 16:00 97.9 81 20 140/76 100 Nasal Cannula 2.0 97.9 11/21/17 16:00 81 11/21/17 14:27 207.1 88 18 100 11/21/17 14:25 208.9 89 18 100 11/21/17 12:20 98.5 83 14 143/75 96 Nasal Cannula 2.0 98.5 Intake and Output 11/21/17 11/22/17 19:00 07:00 Intake Total 1075 ml 1625 ml Balance 1075 ml 1625 ml IV Total 1075 ml 1625 ml # Voids 5 2 # Bowel Movements 2 1 Laboratory Tests 11/22/17 05:30: White Blood Count 10.8, Red Blood Count 2.59L, Hemoglobin 6.4*L, Hematocrit 20.2L, Mean Corpuscular Volume 78L, Mean Corpuscular Hemoglobin 24.8L, Mean Corpuscular Hemoglobin Concent 31.8L, Red Cell Distribution Width 19.2H, Platelet Count 229, Mean Platelet Volume 5.2L, Neutrophils (%) (Auto) , Lymphocytes (%) (Auto) , Monocytes (%) (Auto) , Eosinophils (%) (Auto) , Basophils (%) (Auto) , Differential Total Cells Counted 100, Neutrophils % ( Manual) 87H, Lymphocytes % (Manual) 10L, Monocytes % (Manual) 2, Eosinophils % ( Manual) 1, Basophils % (Manual) 0, Band Neutrophils 0, Platelet Estimate Adequate, Platelet Morphology Normal, Polychromasia 1+, Hypochromasia 2+, Anisocytosis 2+, Microcytosis 1+, Maci Cells 1+, Schistocytes 1+, Sodium Level 145, Potassium Level 3.1L, Chloride Level 117H, Carbon Dioxide Level 15L, Anion Gap 13, Blood Urea Nitrogen 4L, Creatinine 0.6, Estimat Glomerular Filtration Rate , Glucose Level 89, Calcium Level 6.7L, Phosphorus Level 1.3L, Magnesium Level 0.5*L Height (Feet): 5 Height (Inches): 3.00 Weight (Pounds): 120 General Appearance: no apparent distress Respiratory/Chest: decreased breath sounds Abdomen: soft Dg Fairbanks Nov 22, 2017 12:41
--- NOTE | 2017-11-22 13:10 | Pulmonology Progress Note ---
Assessment/Plan Problems: (1) Anemia (2) colitis (3) Asthma (4) CVA (cerebrovascular accident) (5) Diabetes mellitus Assessment/Plan diarrhea got better eating better avoid excessive blood testing on Epogen, Venofer, vitamin check h/h sliding sclae dc planning Subjective ROS Limited/Unobtainable: No Constitutional: Reports: no symptoms HEENT: Repors: no symptoms Respiratory: Reports: no symptoms Allergies: Coded Allergies: LATEX (Unverified Allergy, Mild, Rash, 09/03/14) QUININE (Unverified Allergy, Unknown, Rash Hives, 05/23/15) Quinine Sulfate Objective Last 24 Hour Vital Signs Date Time Temp Pulse Resp B/P (MAP) Pulse Ox O2 Delivery O2 Flow Rate FiO2 11/22/17 08:29 94 142/92 11/22/17 08:29 142/92 11/22/17 08:00 97.7 96 18 147/83 95 Room Air 97.7 11/22/17 08:00 96 11/22/17 04:00 97.5 91 22 131/92 99 Nasal Cannula 2.0 97.5 11/22/17 04:00 94 11/22/17 00:00 78 11/22/17 00:00 97.0 67 22 154/93 90 Nasal Cannula 2.0 97.0 11/21/17 20:00 98.7 84 21 135/96 96 Nasal Cannula 2.0 98.7 11/21/17 20:00 84 11/21/17 18:02 81 140/76 11/21/17 16:00 97.9 81 20 140/76 100 Nasal Cannula 2.0 97.9 11/21/17 16:00 81 11/21/17 14:27 207.1 88 18 100 11/21/17 14:25 208.9 89 18 100 Intake and Output 11/21/17 11/22/17 19:00 07:00 Intake Total 1075 ml 1625 ml Balance 1075 ml 1625 ml IV Total 1075 ml 1625 ml # Voids 5 2 # Bowel Movements 2 1 Objective General Appearance: WD/WN HEENT: normocephalic, atraumatic Respiratory/Chest: chest wall non-tender, lungs clear Cardiovascular: normal peripheral pulses, normal rate Abdomen: normal bowel sounds, soft, non tender Genitourinary: normal external genitalia Extremities: no cyanosis Skin: no rash, no ulcers Laboratory Tests 11/22/17 05:30: White Blood Count 10.8, Red Blood Count 2.59L, Hemoglobin 6.4*L, Hematocrit 20.2L, Mean Corpuscular Volume 78L, Mean Corpuscular Hemoglobin 24.8L, Mean Corpuscular Hemoglobin Concent 31.8L, Red Cell Distribution Width 19.2H, Platelet Count 229, Mean Platelet Volume 5.2L, Neutrophils (%) (Auto) , Lymphocytes (%) (Auto) , Monocytes (%) (Auto) , Eosinophils (%) (Auto) , Basophils (%) (Auto) , Differential Total Cells Counted 100, Neutrophils % ( Manual) 87H, Lymphocytes % (Manual) 10L, Monocytes % (Manual) 2, Eosinophils % ( Manual) 1, Basophils % (Manual) 0, Band Neutrophils 0, Platelet Estimate Adequate, Platelet Morphology Normal, Polychromasia 1+, Hypochromasia 2+, Anisocytosis 2+, Microcytosis 1+, [place] Cells 1+, Schistocytes 1+, Sodium Level 145, Potassium Level 3.1L, Chloride Level 117H, Carbon Dioxide Level 15L, Anion Gap 13, Blood Urea Nitrogen 4L, Creatinine 0.6, Estimat Glomerular Filtration Rate , Glucose Level 89, Calcium Level 6.7L, Phosphorus Level 1.3L, Magnesium Level 0.5*L Current Medications Medications (Trade) Dose Ordered Sig/Don Route PRN Reason Start Time Stop Time Status Last Admin Dose Admin Aspirin (Ecotrin) 81 mg DAILY ORAL 11/15/17 09:00 12/15/17 08:59 11/19/17 10:42 Carvedilol (Coreg) 3.125 mg BID ORAL 11/15/17 00:00 12/15/17 00:00 11/22/17 08:29 Chlorhexidine Gluconate (Merari-Hex 2%) 1 applic DAILY@1999 TOPIC 11/16/17 20:00 12/16/17 19:59 11/21/17 21:13 Clonidine HCl (Catapres Tab) 0.1 mg Q6H PRN ORAL FOR SBP>160 11/18/17 19:30 12/18/17 19:29 Dextrose (Dextrose 50%) STAT PRN IV Hypoglycemia 11/14/17 23:00 12/14/17 22:59 Diphenoxylate HCl/ Atropine (Lomotil) 2.5 mg Q6HR PRN ORAL Diarrhea 11/14/17 23:00 12/14/17 22:59 Epoetin Barak (Procrit (for non ESRD use)) 10,000 units Q48H SUBQ 11/16/17 21:00 12/16/17 20:59 11/20/17 21:40 Folic Acid (Folate) 1 mg DAILY ORAL 11/16/17 09:00 12/16/17 08:59 11/22/17 08:28 Heparin Sodium/ Sodium Chloride (Heparin 2000 units/Ns 1000ml premix) 2,000 unit ONCE PRN INJ PICC LINE PLACEMENT 11/16/17 16:00 Insulin Aspart (NovoLOG) BEFORE MEALS AND HS SUBQ 11/15/17 06:30 12/15/17 06:29 11/20/17 11:15 Levetiracetam 100 ml @ 400 mls/hr Q12HR IVPB 11/19/17 22:00 12/19/17 21:59 11/22/17 08:27 Lorazepam (Ativan 2mg/ml 1ml) 1 mg Q4H PRN IV For Seizures 11/19/17 19:15 11/26/17 19:14 11/19/17 19:14 Losartan Potassium (Cozaar) 50 mg DAILY ORAL 11/15/17 09:00 12/15/17 08:59 11/22/17 08:29 Magnesium Sulfate 100 ml @ 100 mls/hr Q1H IVPB 11/22/17 10:00 11/22/17 13:59 11/22/17 12:00 Metformin HCl (Glucophage) 500 mg TWICE A DAY ORAL 11/15/17 09:00 12/15/17 08:59 11/22/17 08:28 Mirtazapine (Remeron) 15 mg BEDTIME ORAL 11/19/17 21:00 12/19/17 20:59 11/21/17 21:13 Ondansetron HCl (Zofran) 4 mg Q4HR PRN IVP Nausea & Vomiting 11/16/17 00:00 12/16/17 00:00 Pantoprazole (Protonix) 40 mg DAILY ORAL 11/22/17 09:00 12/22/17 08:59 11/22/17 08:28 Sodium Chloride 1,000 ml @ 75 mls/hr [id number] IV 11/14/17 23:00 12/14/17 22:59 11/22/17 04:03 Juana Watson MD Nov 22, 2017 13:09
--- NOTE | 2017-11-22 15:19 | Internal Med Progress Note ---
Subjective Date of Service: Nov 22, 2017 Physician Name Delfin Martinez Attending Physician Lobito Jones MD Current Medications Medications (Trade) Dose Ordered Sig/Don Route PRN Reason Start Time Stop Time Status Last Admin Dose Admin Aspirin (Ecotrin) 81 mg DAILY ORAL 11/15/17 09:00 12/15/17 08:59 11/19/17 10:42 Carvedilol (Coreg) 3.125 mg BID ORAL 11/15/17 00:00 12/15/17 00:00 11/22/17 08:29 Chlorhexidine Gluconate (Merari-Hex 2%) 1 applic DAILY@2000 TOPIC 11/16/17 20:00 12/16/17 19:59 11/21/17 21:13 Clonidine HCl (Catapres Tab) 0.1 mg Q6H PRN ORAL FOR SBP>160 11/18/17 19:30 12/18/17 19:29 Dextrose (Dextrose 50%) STAT PRN IV Hypoglycemia 11/14/17 23:00 12/14/17 22:59 Diphenoxylate HCl/ Atropine (Lomotil) 2.5 mg Q6HR PRN ORAL Diarrhea 11/14/17 23:00 12/14/17 22:59 Epoetin Barak (Procrit (for non ESRD use)) 10,000 units Q48H SUBQ 11/16/17 21:00 12/16/17 20:59 11/20/17 21:40 Folic Acid (Folate) 1 mg DAILY ORAL 11/16/17 09:00 12/16/17 08:59 11/22/17 08:28 Heparin Sodium/ Sodium Chloride (Heparin 2000 units/Ns 1000ml premix) 2,000 unit ONCE PRN INJ PICC LINE PLACEMENT 11/16/17 16:00 Insulin Aspart (NovoLOG) BEFORE MEALS AND HS SUBQ 11/15/17 06:30 12/15/17 06:29 11/20/17 11:15 Levetiracetam 100 ml @ 400 mls/hr Q12HR IVPB 11/19/17 22:00 12/19/17 21:59 11/22/17 08:27 Lorazepam (Ativan 2mg/ml 1ml) 1 mg Q4H PRN IV For Seizures 11/19/17 19:15 11/26/17 19:14 11/19/17 19:14 Losartan Potassium (Cozaar) 50 mg DAILY ORAL 11/15/17 09:00 12/15/17 08:59 11/22/17 08:29 Metformin HCl (Glucophage) 500 mg TWICE A DAY ORAL 11/15/17 09:00 12/15/17 08:59 11/22/17 08:28 Mirtazapine (Remeron) 15 mg BEDTIME ORAL 11/19/17 21:00 12/19/17 20:59 11/21/17 21:13 Ondansetron HCl (Zofran) 4 mg Q4HR PRN IVP Nausea & Vomiting 11/16/17 00:00 12/16/17 00:00 Pantoprazole (Protonix) 40 mg DAILY ORAL 11/22/17 09:00 12/22/17 08:59 11/22/17 08:28 Sodium Chloride 1,000 ml @ 75 mls/hr [id number] IV 11/14/17 23:00 12/14/17 22:59 11/22/17 04:03 Allergies: Coded Allergies: LATEX (Unverified Allergy, Mild, Rash, 09/03/14) QUININE (Unverified Allergy, Unknown, Rash Hives, 05/23/15) Quinine Sulfate ROS Limited/Unobtainable: No Constitutional: Reports: no symptoms HEENT: Reports: no symptoms Cardiovascular: Reports: no symptoms Respiratory: Reports: no symptoms Gastrointestinal/Abdominal: Reports: no symptoms Genitourinary: Reports: no symptoms Neurologic/Psychiatric: Reports: no symptoms Subjective 76 YO F admitted with diarrhea and dehydration. S/P Endoscopy 11/21/17. New onset Seizure 11/23/17; no new seizure today. Cover for Kaylynn Jones Objective Last Vital Signs Date Time Temp Pulse Resp B/P (MAP) Pulse Ox O2 Delivery O2 Flow Rate FiO2 11/22/17 12:00 97.6 100 18 150/87 95 Room Air 97.6 11/22/17 04:00 2.0 Laboratory Tests Test 11/22/17 05:30 White Blood Count 10.8 K/UL (4.8-10.8) Red Blood Count 2.59 M/UL (4.20-5.40) L Hemoglobin 6.4 G/DL (12.0-16.0) *L Hematocrit 20.2 % (37.0-47.0) L Mean Corpuscular Volume 78 FL (80-99) L Mean Corpuscular Hemoglobin 24.8 PG (27.0-31.0) L Mean Corpuscular Hemoglobin Concent 31.8 G/DL (32.0-36.0) L Red Cell Distribution Width 19.2 % (11.6-14.8) H Platelet Count 229 K/UL (150-450) Mean Platelet Volume 5.2 FL (6.5-10.1) L Neutrophils (%) (Auto) % (45.0-75.0) Lymphocytes (%) (Auto) % (20.0-45.0) Monocytes (%) (Auto) % (1.0-10.0) Eosinophils (%) (Auto) % (0.0-3.0) Basophils (%) (Auto) % (0.0-2.0) Differential Total Cells Counted 100 Neutrophils % (Manual) 87 % (45-75) H Lymphocytes % (Manual) 10 % (20-45) L Monocytes % (Manual) 2 % (1-10) Eosinophils % (Manual) 1 % (0-3) Basophils % (Manual) 0 % (0-2) Band Neutrophils 0 % (0-8) Platelet Estimate Adequate Platelet Morphology Normal Polychromasia 1+ Hypochromasia 2+ Anisocytosis 2+ Microcytosis 1+ [place] Cells 1+ Schistocytes 1+ Sodium Level 145 MMOL/L (136-145) Potassium Level 3.1 MMOL/L (3.5-5.1) L Chloride Level 117 MMOL/L (98-107) H Carbon Dioxide Level 15 MMOL/L (21-32) L Anion Gap 13 mmol/L (5-15) Blood Urea Nitrogen 4 mg/dL (7-18) L Creatinine 0.6 MG/DL (0.55-1.30) Estimat Glomerular Filtration Rate mL/min (>60) Glucose Level 89 MG/DL (74-106) Calcium Level 6.7 MG/DL (8.5-10.1) L Phosphorus Level 1.3 MG/DL (2.5-4.9) L Magnesium Level 0.5 MG/DL (1.8-2.4) *L Intake and Output 3/14/18 3/15/18 19:00 07:00 Intake Total 1075 ml 1625 ml Balance 1075 ml 1625 ml IV Total 1075 ml 1625 ml # Voids 5 2 # Bowel Movements 2 1 Objective General Appearance: mild distress, thin EENT: PERRL/EOMI, normal ENT inspection Neck: non-tender, normal alignment, supple Cardiovascular: normal peripheral pulses, normal rate, regular rhythm, no gallop/murmur, no JVD Respiratory/Chest: chest wall non-tender, lungs clear, normal breath sounds, no respiratory distress, no accessory muscle use Abdomen: normal bowel sounds, no mass, abnormal bowel sounds, decreased bowel sounds, tender Extremities: normal range of motion, non-tender Neurologic: audio visual aide II-XII grossly normal, no motor/sensory deficits Skin: normal pigmentation, warm/dry Assessment/Plan Problem List: (1) Diarrhea Assessment & Plan: Colonoscopy cancelled due to hypokalemia and lack of prep (2) Gastritis Assessment & Plan: S/P Endoscopy 11/21/17-see GI note. (3) Dehydration (4) Abdominal pain (5) CVA (cerebrovascular accident) (6) Left hemiparesis (7) Diabetes mellitus Assessment & Plan: Continue metformin (8) Hypertension Assessment & Plan: continue losartan (9) Anemia Assessment & Plan: Severe. Sikhism-refused transfruion. See hematology note. (10) Patient is Sikhism (11) Seizure disorder Assessment & Plan: New onset; Continue keppra per neurology (12) Duodenal ulcer Assessment & Plan: Continue protonix per GI Status: not improved DELFIN MARTINEZ Nov 22, 2017 15:19
[2017-11-22 16:00] VITALS: BP 151/82
[2017-11-22] MEDS: Heparin 2000 units/Ns 1000ml INJ SCH (16:30)
[2017-11-22] MEDS ORDERED: LORazepam Inj 2mg/ml 1ml IV PRN (17:00)
[2017-11-22] MEDS ORDERED: Lomotil 2.5mg tab ORAL PRN (18:00)
[2017-11-22 20:32] VITALS: BP 144/77
[2017-11-22] MEDS ORDERED: Epogen (for non ESRD use) SUBQ SCH (21:00)
--- NOTE | 2017-11-22 21:00 | Procedure Note ---
DATE OF PROCEDURE: 11/21/2017 PROCEDURE: Upper endoscopy with biopsy. ANESTHESIA: Per . INSTRUMENT: Olympus adult flexible upper endoscope. INDICATIONS: Anemia and GI bleeding. REASON FOR PROCEDURE: The procedure, risks, benefits, and possible consequences, including hemorrhage, aspiration, perforation and infection, and alternative treatments, were explained to the patient/legal guardian by Dr. Aquilino Diaz and the patient/legal guardian understood and accepted these risks. PROCEDURE IN DETAIL: After informed consent was obtained and the patient was adequately sedated, Olympus upper endoscope was advanced from mouth into the second portion of the duodenum and retroflexion was performed in the stomach. 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 There was evidence of ulceration in that area and also retained suture was seen in that area most probably from prior surgeries. The patient had shallow ulceration in duodenum and deeper one in the second portion of the duodenum, but no visible vessel. No adherent clot. In the stomach, there was diffuse gastritis. Random biopsy from antrum was obtained to rule out H. pylori infection. The patient tolerated the procedure well without any complication. FINDINGS: 1. Large duodenal diverticulum. 2. Duodenal ulcerations. 3. Gastritis, status post biopsy. RECOMMENDATIONS: 1. Start PPI. 2. Follow biopsies and treat accordingly. 3. The patient to follow as an outpatient for colonoscopy. I want to thank, Dr. Jones, for this kind referral. Aquilino Diaz M.D. DR: Prachi JOB#: [id number] CC: Lobito Jones M.D.; Fax#: [phone]
[2017-11-22] MEDS: Dyna-Hex 2% Top Sol 2oz TOPIC SCH (21:04)
--- NOTE | 2017-11-22 22:53 | General Progress Note ---
Assessment/Plan Assessment/Plan mdd anxiety radha haynes Subjective Neurologic/Psychiatric: Reports: anxiety, depressed, emotional problems Allergies: Coded Allergies: LATEX (Unverified Allergy, Mild, Rash, 09/03/14) QUININE (Unverified Allergy, Unknown, Rash Hives, 05/23/15) Quinine Sulfate Objective Last 24 Hour Vital Signs Date Time Temp Pulse Resp B/P (MAP) Pulse Ox O2 Delivery O2 Flow Rate FiO2 11/22/17 20:32 97.9 87 23 144/77 97 97.9 11/22/17 19:06 100 150/87 11/22/17 16:00 97.9 94 20 151/82 100 97.9 94 11/22/17 12:00 97.6 100 18 150/87 95 Room Air 97.6 11/22/17 08:29 94 142/92 11/22/17 08:29 142/92 11/22/17 08:00 97.7 96 18 147/83 95 Room Air 97.7 11/22/17 08:00 96 11/22/17 04:00 97.5 91 22 131/92 99 Nasal Cannula 2.0 97.5 11/22/17 04:00 94 11/22/17 00:00 78 11/22/17 00:00 97.0 67 22 154/93 90 Nasal Cannula 2.0 97.0 Intake and Output 11/21/17 11/22/17 19:00 07:00 Intake Total 1075 ml 1625 ml Balance 1075 ml 1625 ml IV Total 1075 ml 1625 ml # Voids 5 2 # Bowel Movements 2 1 Laboratory Tests 11/22/17 05:30: White Blood Count 10.8, Red Blood Count 2.59L, Hemoglobin 6.4*L, Hematocrit 20.2L, Mean Corpuscular Volume 78L, Mean Corpuscular Hemoglobin 24.8L, Mean Corpuscular Hemoglobin Concent 31.8L, Red Cell Distribution Width 19.2H, Platelet Count 229, Mean Platelet Volume 5.2L, Neutrophils (%) (Auto) , Lymphocytes (%) (Auto) , Monocytes (%) (Auto) , Eosinophils (%) (Auto) , Basophils (%) (Auto) , Differential Total Cells Counted 100, Neutrophils % ( Manual) 87H, Lymphocytes % (Manual) 10L, Monocytes % (Manual) 2, Eosinophils % ( Manual) 1, Basophils % (Manual) 0, Band Neutrophils 0, Platelet Estimate Adequate, Platelet Morphology Normal, Polychromasia 1+, Hypochromasia 2+, Anisocytosis 2+, Microcytosis 1+, [place] Cells 1+, Schistocytes 1+, Sodium Level 145, Potassium Level 3.1L, Chloride Level 117H, Carbon Dioxide Level 15L, Anion Gap 13, Blood Urea Nitrogen 4L, Creatinine 0.6, Estimat Glomerular Filtration Rate , Glucose Level 89, Calcium Level 6.7L, Phosphorus Level 1.3L, Magnesium Level 0.5*L Height (Feet): 5 Height (Inches): 3.00 Weight (Pounds): 120 Tani Kitchen M.D. Nov 22, 2017 22:53
[2017-11-23 00:31] VITALS: BP 136/71
[2017-11-23 04:32] VITALS: BP 134/71
[2017-11-23] MEDS: NovoLOG Insulin Flexpen SUBQ SCH ×4 (06:15→21:00)
[2017-11-23 06:44] LABS: HEMATOCRIT 18.1 % (37.0-47.0); MEAN CORPUSCULAR VOLUME 79 FL (80-99); PLATELET COUNT 227 K/UL (150-450); RED BLOOD COUNT 2.28 M/UL (4.20-5.40); RED CELL DISTRIBUTION WIDTH 21.9 % (11.6-14.8); WHITE BLOOD COUNT 7.3 K/UL (4.8-10.8)
[2017-11-23 07:11] LABS: ALANINE AMINOTRANSFERASE 11 U/L (12-78); ALBUMIN 1.7 G/DL (3.4-5.0); ALBUMIN/GLOBULIN RATIO 0.7 (1.0-2.7); ALKALINE PHOSPHATASE 56 U/L (46-116); ANION GAP 13 mmol/L (5-15); ASPARTATE AMINO TRANSFERASE 20 U/L (15-37); BILIRUBIN,TOTAL 0.2 MG/DL (0.2-1.0); BLOOD UREA NITROGEN 3 mg/dL (7-18); CALCIUM 6.2 MG/DL (8.5-10.1); CARBON DIOXIDE 14 MMOL/L (21-32); CHLORIDE 119 MMOL/L (98-107); CREATININE 0.5 MG/DL (0.55-1.30); SODIUM 146 MMOL/L (136-145)
[2017-11-23 07:35] LABS: HEMOGLOBIN 5.7 G/DL (12.0-16.0); POTASSIUM 2.7 MMOL/L (3.5-5.1)
[2017-11-23 08:00] VITALS: BP 146/91
[2017-11-23 08:01] LABS: PHOSPHORUS 1.2 MG/DL (2.5-4.9)
[2017-11-23] MEDS: Losartan 50mg tab ORAL SCH (09:15)
[2017-11-23] MEDS: Aspirin EC 81mg tab ORAL SCH (09:15)
[2017-11-23] MEDS: metFORMIN 500mg tab ORAL SCH ×2 (09:15→17:20)
[2017-11-23] MEDS: levETIRAcetam 500mg/NS100ml 100 ML IVPB SCH ×2 (09:53→22:25)
[2017-11-23] MEDS ORDERED: Potassium Phosphate 30 MM in NS 275 ML IV ONE (11:30)
[2017-11-23 12:00] VITALS: BP 152/88
--- NOTE | 2017-11-23 12:15 | General Progress Note ---
Assessment/Plan Assessment/Plan 1. Anemia due to iron deficiency. The patient is status post EGD showed solitary ulcer. --> Ongoing iron for 5 days. The patient continued to have iron deficiency. --> The patient is Spiritism and is refusing blood products even though there is increased morbidity, mortality in refusing blood products. --> Continue to monitor. Again, continue to recommend blood transfusions if hemoglobin less than 7. --> Hemoglobin levels are below goal levels 2. Nausea, vomiting, and diarrhea. --> Closely monitor. Zofran has been administered. 3. Anemia of chronic disease. --> Continue the patient on Epogen. 4. Colitis. --> She is on broad-spectrum antibiotics. --> Improving. 5. Spiritism, refusing blood products. 6. Diarrhea. Recommend the patient to take antibiotics as needed. Check for Clostridium difficile. Subjective Date patient seen: Nov 22, 2017 Constitutional: Denies: no symptoms, chills, diaphoresis, fever, malaise, weakness, other HEENT: Denies: no symptoms, eye pain, blurred vision, tearing, double vision, ear pain, ear discharge, nose pain, nose congestion, throat pain, throat swelling, mouth pain, mouth swelling, other Cardiovascular: Denies: no symptoms, chest pain, edema, irregular heart rate, lightheadedness, palpitations, syncope, other Respiratory: Denies: no symptoms, cough, orthopnea, shortness of breath, SOB with excertion, SOB at rest, sputum, stridor, wheezing, other Gastrointestinal/Abdominal: Denies: no symptoms, abdomen distended, abdominal pain, black stools, tarry stools, blood in stool, constipated, diarrhea, difficulty swallowing, nausea, poor appetite, poor fluid intake, rectal bleeding , vomiting, other Genitourinary: Denies: no symptoms, burning, discharge, frequency, flank pain, hematuria, incontinence, pain, urgency, other Neurologic/Psychiatric: Denies: no symptoms, anxiety, depressed, emotional problems, headache, numbness, paresthesia, pre-existing deficit, seizure, tingling, tremors, weakness, other Allergies: Coded Allergies: LATEX (Unverified Allergy, Mild, Rash, 09/03/14) QUININE (Unverified Allergy, Unknown, Rash Hives, 05/23/15) Quinine Sulfate Subjective Hemoglobin remains low. On antibiotics. Denies pain Objective Last 24 Hour Vital Signs Date Time Temp Pulse Resp B/P (MAP) Pulse Ox O2 Delivery O2 Flow Rate FiO2 11/23/17 09:15 146/91 11/23/17 09:15 89 146/91 11/23/17 08:00 97.7 89 19 146/91 96 97.7 11/23/17 04:32 97.7 81 20 134/71 98 97.7 11/23/17 00:31 97.7 81 20 136/71 98 97.7 11/22/17 20:32 97.9 87 23 144/77 97 97.9 11/22/17 19:06 100 150/87 11/22/17 16:00 97.9 94 20 151/82 100 97.9 94 Intake and Output 11/22/17 11/23/17 19:00 07:00 Intake Total 206 ml 940 ml Balance 206 ml 940 ml Intake Oral 206 ml 90 ml IV Total 850 ml # Voids 2 # Bowel Movements 1 Laboratory Tests 11/23/17 05:20: White Blood Count 7.3, Red Blood Count 2.28L, Hemoglobin 5.7*L, Hematocrit 18.1L , Mean Corpuscular Volume 79L, Mean Corpuscular Hemoglobin 25.0L, Mean Corpuscular Hemoglobin Concent 31.6L, Red Cell Distribution Width 21.9H, Platelet Count 227, Mean Platelet Volume 5.4L, Neutrophils (%) (Auto) , Lymphocytes (%) (Auto) , Monocytes (%) (Auto) , Eosinophils (%) (Auto) , Basophils (%) (Auto) , Differential Total Cells Counted 100, Neutrophils % ( Manual) 76H, Lymphocytes % (Manual) 15L, Monocytes % (Manual) 5, Eosinophils % ( Manual) 3, Basophils % (Manual) 0, Band Neutrophils 1, Platelet Estimate Adequate, Platelet Morphology Normal, Hypochromasia 3+, Anisocytosis 3+, Microcytosis 1+, [place] Cells Occasional, Acanthocytes 1+, Schistocytes 1+, Sodium Level 146H, Potassium Level 2.7*L, Chloride Level 119H, Carbon Dioxide Level 14L, Anion Gap 13, Blood Urea Nitrogen 3L, Creatinine 0.5L, Estimat Glomerular Filtration Rate , Glucose Level 68L, Calcium Level 6.2L, Phosphorus Level 1.2L, Magnesium Level 1.5L, Total Bilirubin 0.2, Aspartate Amino Transf ( AST/SGOT) 20, Alanine Aminotransferase (ALT/SGPT) 11L, Alkaline Phosphatase 56, Total Protein 4.3L, Albumin 1.7L, Globulin 2.6, Albumin/Globulin Ratio 0.7L Height (Feet): 5 Height (Inches): 3.00 Weight (Pounds): 120 Respiratory/Chest: decreased breath sounds Abdomen: soft Dg Fairbanks MD Nov 23, 2017 12:14
--- NOTE | 2017-11-23 13:10 | GI Progress Note ---
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 Diaz. Assessment/Plan home medication reconciliation noted >> patient is on Plavix but none given since inpatient admission >> to be resumed by primary/cardio OB stool positive, second sample is negative S/P EGD >> duodenal ulcer >> possible source of bleed, second OB stool now negative >> fu H. Pylori serology trend H&H, patient is confucianist bowel regime ppi fu labs Subjective Subjective limited Objective Last 24 Hour Vital Signs Date Time Temp Pulse Resp B/P (MAP) Pulse Ox O2 Delivery O2 Flow Rate FiO2 11/23/17 12:00 98.1 86 20 152/88 94 98.1 11/23/17 09:15 146/91 11/23/17 09:15 89 146/91 11/23/17 08:00 97.7 89 19 146/91 96 97.7 11/23/17 04:32 97.7 81 20 134/71 98 97.7 11/23/17 00:31 97.7 81 20 136/71 98 97.7 11/22/17 20:32 97.9 87 23 144/77 97 97.9 11/22/17 19:06 100 150/87 11/22/17 16:00 97.9 94 20 151/82 100 97.9 94 Intake and Output 11/22/17 11/23/17 19:00 07:00 Intake Total 206 ml 940 ml Balance 206 ml 940 ml Intake Oral 206 ml 90 ml IV Total 850 ml # Voids 2 # Bowel Movements 1 Laboratory Tests Test 11/23/17 05:20 White Blood Count 7.3 K/UL (4.8-10.8) Red Blood Count 2.28 M/UL (4.20-5.40) L Hemoglobin 5.7 G/DL (12.0-16.0) *L Hematocrit 18.1 % (37.0-47.0) L Mean Corpuscular Volume 79 FL (80-99) L Mean Corpuscular Hemoglobin 25.0 PG (27.0-31.0) L Mean Corpuscular Hemoglobin Concent 31.6 G/DL (32.0-36.0) L Red Cell Distribution Width 21.9 % (11.6-14.8) H Platelet Count 227 K/UL (150-450) Mean Platelet Volume 5.4 FL (6.5-10.1) L Neutrophils (%) (Auto) % (45.0-75.0) Lymphocytes (%) (Auto) % (20.0-45.0) Monocytes (%) (Auto) % (1.0-10.0) Eosinophils (%) (Auto) % (0.0-3.0) Basophils (%) (Auto) % (0.0-2.0) Differential Total Cells Counted 100 Neutrophils % (Manual) 76 % (45-75) H Lymphocytes % (Manual) 15 % (20-45) L Monocytes % (Manual) 5 % (1-10) Eosinophils % (Manual) 3 % (0-3) Basophils % (Manual) 0 % (0-2) Band Neutrophils 1 % (0-8) Platelet Estimate Adequate Platelet Morphology Normal Hypochromasia 3+ Anisocytosis 3+ Microcytosis 1+ Maci Cells Occasional Acanthocytes 1+ Schistocytes 1+ Sodium Level 146 MMOL/L (136-145) H Potassium Level 2.7 MMOL/L (3.5-5.1) *L Chloride Level 119 MMOL/L (98-107) H Carbon Dioxide Level 14 MMOL/L (21-32) L Anion Gap 13 mmol/L (5-15) Blood Urea Nitrogen 3 mg/dL (7-18) L Creatinine 0.5 MG/DL (0.55-1.30) L Estimat Glomerular Filtration Rate mL/min (>60) Glucose Level 68 MG/DL (74-106) L Calcium Level 6.2 MG/DL (8.5-10.1) L Phosphorus Level 1.2 MG/DL (2.5-4.9) L Magnesium Level 1.5 MG/DL (1.8-2.4) L Total Bilirubin 0.2 MG/DL (0.2-1.0) Aspartate Amino Transf (AST/SGOT) 20 U/L (15-37) Alanine Aminotransferase (ALT/SGPT) 11 U/L (12-78) L Alkaline Phosphatase 56 U/L (46-116) Total Protein 4.3 G/DL (6.4-8.2) L Albumin 1.7 G/DL (3.4-5.0) L Globulin 2.6 g/dL Albumin/Globulin Ratio 0.7 (1.0-2.7) L Height (Feet): 5 Height (Inches): 3.00 Weight (Pounds): 120 General Appearance: alert, thin Cardiovascular: normal rate Respiratory/Chest: normal breath sounds, no respiratory distress Abdominal Exam: normal bowel sounds, non tender, soft Extremities: normal range of motion Jelly Lang N.P. Nov 23, 2017 13:10
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
--- NOTE | 2017-11-23 14:54 | General Progress Note ---
Progress Note Progress Note [id number] full consult dictated SAKSHI FINN Nov 23, 2017 14:54
--- NOTE | 2017-11-23 15:14 | Consultation ---
Consult Note Consult Note asked to eval for electrolyte anormalities Data reviewed Low K Low Mag Low Phos Assessment/Plan (1) Diarrhea (2) Gastritis (3) Dehydration (4) Abdominal pain (5) CVA (cerebrovascular accident) (6) Left hemiparesis (7) Diabetes mellitus (8) Hypertension (9) Anemia Jehowa"s witness (10) Patient is Jain (11) Seizure disorder (12) Duodenal ulcer Plan: PO and IV : K and Phos and Mag Up dose the EPO per orders AIDE PENA Nov 23, 2017 15:14
--- NOTE | 2017-11-23 15:14 | Wound Nurse Progress Note ---
Wound RN Progress Note Wound Consult called and spoke to pawan Andrea regarding consult, his office made aware. SAMANTHA KIM Nov 23, 2017 15:14
[2017-11-23 16:00] VITALS: BP 129/72
[2017-11-23] MEDS ORDERED: D5 1/2NS w/KCl 40meq 1000ml 1,000 ML IV SCH ×2 (16:00)
--- NOTE | 2017-11-23 16:29 | Pulmonology Progress Note ---
Assessment/Plan Problems: (1) Anemia (2) colitis (3) Asthma (4) CVA (cerebrovascular accident) (5) Diabetes mellitus Assessment/Plan no labs for a few days, diarrhea got better eating better avoid excessive blood testing on Epogen, Venofer, vitamin check h/h sliding sclae Subjective ROS Limited/Unobtainable: No Constitutional: Reports: no symptoms HEENT: Repors: no symptoms Allergies: Coded Allergies: LATEX (Unverified Allergy, Mild, Rash, 09/03/14) QUININE (Unverified Allergy, Unknown, Rash Hives, 05/23/15) Quinine Sulfate Objective Last 24 Hour Vital Signs Date Time Temp Pulse Resp B/P (MAP) Pulse Ox O2 Delivery O2 Flow Rate FiO2 11/23/17 16:00 97.4 69 17 129/72 96 97.4 11/23/17 12:00 Room Air 11/23/17 12:00 98.1 86 20 152/88 94 98.1 11/23/17 09:15 146/91 11/23/17 09:15 89 146/91 11/23/17 08:05 Room Air 11/23/17 08:00 97.7 89 19 146/91 96 97.7 11/23/17 04:32 97.7 81 20 134/71 98 97.7 11/23/17 00:31 97.7 81 20 136/71 98 97.7 11/22/17 20:32 97.9 87 23 144/77 97 97.9 11/22/17 19:06 100 150/87 Intake and Output 11/22/17 11/23/17 19:00 07:00 Intake Total 206 ml 940 ml Balance 206 ml 940 ml Intake Oral 206 ml 90 ml IV Total 850 ml # Voids 2 # Bowel Movements 1 Objective General Appearance: WD/WN HEENT: normocephalic, atraumatic Respiratory/Chest: chest wall non-tender, lungs clear Cardiovascular: normal peripheral pulses, normal rate Abdomen: normal bowel sounds, soft, non tender Genitourinary: normal external genitalia Extremities: no cyanosis Skin: no rash, no ulcers Laboratory Tests 11/23/17 05:20: White Blood Count 7.3, Red Blood Count 2.28L, Hemoglobin 5.7*L, Hematocrit 18.1L , Mean Corpuscular Volume 79L, Mean Corpuscular Hemoglobin 25.0L, Mean Corpuscular Hemoglobin Concent 31.6L, Red Cell Distribution Width 21.9H, Platelet Count 227, Mean Platelet Volume 5.4L, Neutrophils (%) (Auto) , Lymphocytes (%) (Auto) , Monocytes (%) (Auto) , Eosinophils (%) (Auto) , Basophils (%) (Auto) , Differential Total Cells Counted 100, Neutrophils % ( Manual) 76H, Lymphocytes % (Manual) 15L, Monocytes % (Manual) 5, Eosinophils % ( Manual) 3, Basophils % (Manual) 0, Band Neutrophils 1, Platelet Estimate Adequate, Platelet Morphology Normal, Hypochromasia 3+, Anisocytosis 3+, Microcytosis 1+, [place] Cells Occasional, Acanthocytes 1+, Schistocytes 1+, Sodium Level 146H, Potassium Level 2.7*L, Chloride Level 119H, Carbon Dioxide Level 14L, Anion Gap 13, Blood Urea Nitrogen 3L, Creatinine 0.5L, Estimat Glomerular Filtration Rate , Glucose Level 68L, Calcium Level 6.2L, Phosphorus Level 1.2L, Magnesium Level 1.5L, Total Bilirubin 0.2, Aspartate Amino Transf ( AST/SGOT) 20, Alanine Aminotransferase (ALT/SGPT) 11L, Alkaline Phosphatase 56, Total Protein 4.3L, Albumin 1.7L, Globulin 2.6, Albumin/Globulin Ratio 0.7L 11/23/17 08:50: Vitamin D 25-Hydroxy [Pending], 25-Hydroxy Vitamin D2 [Pending], 25-Hydroxy Vitamin D3 [Pending] Current Medications Medications (Trade) Dose Ordered Sig/Don Route PRN Reason Start Time Stop Time Status Last Admin Dose Admin Aspirin (Ecotrin) 81 mg DAILY ORAL 11/23/17 09:00 12/15/17 08:59 11/23/17 09:15 Carvedilol (Coreg) 6.25 mg Q12HR ORAL 11/23/17 18:00 12/23/17 17:59 Chlorhexidine Gluconate (Merari-Hex 2%) 1 applic DAILY@1999 TOPIC 11/22/17 20:00 12/16/17 19:59 11/22/17 21:04 Clonidine HCl (Catapres Tab) 0.1 mg Q6H PRN ORAL FOR SBP>160 11/22/17 17:00 12/18/17 16:59 Dextrose (Dextrose 50%) STAT PRN IV Hypoglycemia 11/22/17 17:00 12/14/17 16:59 Dextrose/ Electrolytes 1,000 ml @ 50 mls/hr Q20H IV 11/23/17 16:00 12/23/17 15:59 11/23/17 16:18 Diphenoxylate HCl/ Atropine (Lomotil) 2.5 mg Q6H PRN ORAL Diarrhea 11/22/17 18:00 12/22/17 17:59 Epoetin Barak (Procrit (for non ESRD use)) 20,000 units Q48H SUBQ 11/24/17 21:00 12/24/17 20:59 Folic Acid (Folate) 1 mg DAILY ORAL 11/23/17 09:00 12/16/17 08:59 11/23/17 09:15 Heparin Sodium/ Sodium Chloride (Heparin 2000 units/Ns 1000ml premix) 2,000 unit ONCE INJ 11/22/17 16:30 11/23/17 23:59 Insulin Aspart (NovoLOG) BEFORE MEALS AND HS SUBQ 11/22/17 18:00 12/15/17 17:59 11/22/17 21:48 Levetiracetam 100 ml @ 400 mls/hr Q12HR IVPB 11/22/17 21:00 12/19/17 21:59 11/23/17 09:53 Lorazepam (Ativan 2mg/ml 1ml) 1 mg Q4H PRN IV For Seizures 11/22/17 17:00 11/26/17 16:59 Losartan Potassium (Cozaar) 50 mg DAILY ORAL 11/23/17 09:00 12/15/17 08:59 11/23/17 09:15 Metformin HCl (Glucophage) 500 mg TWICE A DAY ORAL 11/22/17 18:00 12/15/17 08:59 11/23/17 09:15 Mirtazapine (Remeron) 15 mg BEDTIME ORAL 11/22/17 21:00 12/19/17 20:59 11/22/17 21:04 Ondansetron HCl (Zofran) 4 mg Q4H PRN IVP Nausea & Vomiting 11/22/17 17:00 12/22/17 16:59 Pantoprazole (Protonix) 40 mg BID ORAL 11/23/17 18:00 12/22/17 08:59 Phosphorus (Phospha 250 Neutral) 500 mg THREE TIMES A DAY ORAL 11/23/17 18:00 12/23/17 17:59 Potassium Phosphate 30 mm/ Sodium Chloride 285 ml @ 47.5 mls/hr ONCE ONCE IV 11/23/17 11:30 11/23/17 17:29 11/23/17 12:49 Potassium Chloride (K-Dur) 40 meq TWICE A DAY ORAL 11/23/17 18:00 12/23/17 17:59 Juana Watson MD Nov 23, 2017 16:28
[2017-11-23] MEDS: Heparin 2000 units/Ns 1000ml INJ SCH (16:30)
--- NOTE | 2017-11-23 17:14 | Internal Med Progress Note ---
Subjective Date of Service: Nov 23, 2017 Physician Name Delfin Martinez Attending Physician Lobito Jones MD Current Medications Medications (Trade) Dose Ordered Sig/Don Route PRN Reason Start Time Stop Time Status Last Admin Dose Admin Aspirin (Ecotrin) 81 mg DAILY ORAL 11/23/17 09:00 12/15/17 08:59 11/23/17 09:15 Carvedilol (Coreg) 6.25 mg Q12HR ORAL 11/23/17 18:00 12/23/17 17:59 Chlorhexidine Gluconate (Merari-Hex 2%) 1 applic DAILY@2000 TOPIC 11/22/17 20:00 12/16/17 19:59 11/22/17 21:04 Clonidine HCl (Catapres Tab) 0.1 mg Q6H PRN ORAL FOR SBP>160 11/22/17 17:00 12/18/17 16:59 Dextrose (Dextrose 50%) STAT PRN IV Hypoglycemia 11/22/17 17:00 12/14/17 16:59 Dextrose/ Electrolytes 1,000 ml @ 50 mls/hr Q20H IV 11/23/17 16:00 12/23/17 15:59 11/23/17 16:18 Diphenoxylate HCl/ Atropine (Lomotil) 2.5 mg Q6H PRN ORAL Diarrhea 11/22/17 18:00 12/22/17 17:59 Epoetin Barak (Procrit (for non ESRD use)) 20,000 units Q48H SUBQ 11/24/17 21:00 12/24/17 20:59 Folic Acid (Folate) 1 mg DAILY ORAL 11/23/17 09:00 12/16/17 08:59 11/23/17 09:15 Heparin Sodium/ Sodium Chloride (Heparin 2000 units/Ns 1000ml premix) 2,000 unit ONCE INJ 11/22/17 16:30 11/23/17 23:59 Insulin Aspart (NovoLOG) BEFORE MEALS AND HS SUBQ 11/22/17 18:00 12/15/17 17:59 11/22/17 21:48 Levetiracetam 100 ml @ 400 mls/hr Q12HR IVPB 11/22/17 21:00 12/19/17 21:59 11/23/17 09:53 Lorazepam (Ativan 2mg/ml 1ml) 1 mg Q4H PRN IV For Seizures 11/22/17 17:00 11/26/17 16:59 Losartan Potassium (Cozaar) 50 mg DAILY ORAL 11/23/17 09:00 12/15/17 08:59 11/23/17 09:15 Metformin HCl (Glucophage) 500 mg TWICE A DAY ORAL 11/22/17 18:00 12/15/17 08:59 11/23/17 09:15 Mirtazapine (Remeron) 15 mg BEDTIME ORAL 11/22/17 21:00 12/19/17 20:59 11/22/17 21:04 Ondansetron HCl (Zofran) 4 mg Q4H PRN IVP Nausea & Vomiting 11/22/17 17:00 12/22/17 16:59 Pantoprazole (Protonix) 40 mg BID ORAL 11/23/17 18:00 12/22/17 08:59 Phosphorus (Phospha 250 Neutral) 500 mg THREE TIMES A DAY ORAL 11/23/17 18:00 12/23/17 17:59 Potassium Phosphate 30 mm/ Sodium Chloride 285 ml @ 47.5 mls/hr ONCE ONCE IV 11/23/17 11:30 11/23/17 17:29 11/23/17 12:49 Potassium Chloride (K-Dur) 40 meq TWICE A DAY ORAL 11/23/17 18:00 12/23/17 17:59 Allergies: Coded Allergies: LATEX (Unverified Allergy, Mild, Rash, 09/03/14) QUININE (Unverified Allergy, Unknown, Rash Hives, 05/23/15) Quinine Sulfate ROS Limited/Unobtainable: No Constitutional: Reports: no symptoms HEENT: Reports: no symptoms Cardiovascular: Reports: no symptoms Respiratory: Reports: no symptoms Gastrointestinal/Abdominal: Reports: no symptoms Genitourinary: Reports: no symptoms Neurologic/Psychiatric: Reports: no symptoms Subjective 76 YO F admitted with diarrhea and dehydration. S/P Endoscopy 11/21/17. New onset Seizure 11/23/17; no new seizure today. Cover for Int Cheyenne Jones Objective Last Vital Signs Date Time Temp Pulse Resp B/P (MAP) Pulse Ox O2 Delivery O2 Flow Rate FiO2 11/23/17 16:56 Room Air 11/23/17 16:00 97.4 69 17 129/72 96 97.4 11/22/17 04:00 2.0 Laboratory Tests Test 11/23/17 05:20 11/23/17 08:50 White Blood Count 7.3 K/UL (4.8-10.8) Red Blood Count 2.28 M/UL (4.20-5.40) L Hemoglobin 5.7 G/DL (12.0-16.0) *L Hematocrit 18.1 % (37.0-47.0) L Mean Corpuscular Volume 79 FL (80-99) L Mean Corpuscular Hemoglobin 25.0 PG (27.0-31.0) L Mean Corpuscular Hemoglobin Concent 31.6 G/DL (32.0-36.0) L Red Cell Distribution Width 21.9 % (11.6-14.8) H Platelet Count 227 K/UL (150-450) Mean Platelet Volume 5.4 FL (6.5-10.1) L Neutrophils (%) (Auto) % (45.0-75.0) Lymphocytes (%) (Auto) % (20.0-45.0) Monocytes (%) (Auto) % (1.0-10.0) Eosinophils (%) (Auto) % (0.0-3.0) Basophils (%) (Auto) % (0.0-2.0) Differential Total Cells Counted 100 Neutrophils % (Manual) 76 % (45-75) H Lymphocytes % (Manual) 15 % (20-45) L Monocytes % (Manual) 5 % (1-10) Eosinophils % (Manual) 3 % (0-3) Basophils % (Manual) 0 % (0-2) Band Neutrophils 1 % (0-8) Platelet Estimate Adequate Platelet Morphology Normal Hypochromasia 3+ Anisocytosis 3+ Microcytosis 1+ [place] Cells Occasional Acanthocytes 1+ Schistocytes 1+ Sodium Level 146 MMOL/L (136-145) H Potassium Level 2.7 MMOL/L (3.5-5.1) *L Chloride Level 119 MMOL/L (98-107) H Carbon Dioxide Level 14 MMOL/L (21-32) L Anion Gap 13 mmol/L (5-15) Blood Urea Nitrogen 3 mg/dL (7-18) L Creatinine 0.5 MG/DL (0.55-1.30) L Estimat Glomerular Filtration Rate mL/min (>60) Glucose Level 68 MG/DL (74-106) L Calcium Level 6.2 MG/DL (8.5-10.1) L Phosphorus Level 1.2 MG/DL (2.5-4.9) L Magnesium Level 1.5 MG/DL (1.8-2.4) L Total Bilirubin 0.2 MG/DL (0.2-1.0) Aspartate Amino Transf (AST/SGOT) 20 U/L (15-37) Alanine Aminotransferase (ALT/SGPT) 11 U/L (12-78) L Alkaline Phosphatase 56 U/L (46-116) Total Protein 4.3 G/DL (6.4-8.2) L Albumin 1.7 G/DL (3.4-5.0) L Globulin 2.6 g/dL Albumin/Globulin Ratio 0.7 (1.0-2.7) L Vitamin D 25-Hydroxy Pending 25-Hydroxy Vitamin D2 Pending 25-Hydroxy Vitamin D3 Pending Intake and Output 11/22/17 11/23/17 19:00 07:00 Intake Total 206 ml 940 ml Balance 206 ml 940 ml Intake Oral 206 ml 90 ml IV Total 850 ml # Voids 2 # Bowel Movements 1 Objective General Appearance: mild distress, thin EENT: PERRL/EOMI, normal ENT inspection Neck: non-tender, normal alignment, supple Cardiovascular: normal peripheral pulses, normal rate, regular rhythm, no gallop/murmur, no JVD Respiratory/Chest: chest wall non-tender, lungs clear, normal breath sounds, no respiratory distress, no accessory muscle use Abdomen: normal bowel sounds, no mass, abnormal bowel sounds, decreased bowel sounds, tender Extremities: normal range of motion, non-tender 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 (3) Dehydration (4) Abdominal pain (5) CVA (cerebrovascular accident) (6) Left hemiparesis (7) Diabetes mellitus Assessment & Plan: Continue metformin (8) Hypertension Assessment & Plan: continue losartan (9) Anemia Assessment & Plan: Severe. Jew-refused transfruion. See hematology note. (10) Patient is Jew (11) Seizure disorder Assessment & Plan: New onset; Continue keppra per neurology (12) Duodenal ulcer Assessment & Plan: Continue protonix per GI Status: not improved DELFIN MARTINEZ Nov 23, 2017 17:14
[2017-11-23] MEDS: Phospha 250 Neutral tab ORAL SCH (17:19)
[2017-11-23] MEDS: Carvedilol 6.25mg Tab ORAL SCH (17:23)
--- NOTE | 2017-11-23 19:26 | General Progress Note ---
Assessment/Plan Assessment/Plan mdd anxiety increase radha milner zoloft Subjective Date patient seen: Nov 23, 2017 Gastrointestinal/Abdominal: Reports: poor appetite, poor fluid intake Neurologic/Psychiatric: Reports: anxiety, depressed, emotional problems Allergies: Coded Allergies: LATEX (Unverified Allergy, Mild, Rash, 09/03/14) QUININE (Unverified Allergy, Unknown, Rash Hives, 05/23/15) Quinine Sulfate Objective Last 24 Hour Vital Signs Date Time Temp Pulse Resp B/P (MAP) Pulse Ox O2 Delivery O2 Flow Rate FiO2 11/23/17 17:23 69 129/72 11/23/17 16:56 Room Air 11/23/17 16:00 97.4 69 17 129/72 96 97.4 11/23/17 12:00 Room Air 11/23/17 12:00 98.1 86 20 152/88 94 98.1 11/23/17 09:15 146/91 11/23/17 09:15 89 146/91 11/23/17 08:05 Room Air 11/23/17 08:00 97.7 89 19 146/91 96 97.7 11/23/17 04:32 97.7 81 20 134/71 98 97.7 11/23/17 00:31 97.7 81 20 136/71 98 97.7 11/22/17 20:32 97.9 87 23 144/77 97 97.9 Intake and Output 11/22/17 11/23/17 19:00 07:00 Intake Total 206 ml 940 ml Balance 206 ml 940 ml Intake Oral 206 ml 90 ml IV Total 850 ml # Voids 2 # Bowel Movements 1 Laboratory Tests 11/23/17 05:20: White Blood Count 7.3, Red Blood Count 2.28L, Hemoglobin 5.7*L, Hematocrit 18.1L , Mean Corpuscular Volume 79L, Mean Corpuscular Hemoglobin 25.0L, Mean Corpuscular Hemoglobin Concent 31.6L, Red Cell Distribution Width 21.9H, Platelet Count 227, Mean Platelet Volume 5.4L, Neutrophils (%) (Auto) , Lymphocytes (%) (Auto) , Monocytes (%) (Auto) , Eosinophils (%) (Auto) , Basophils (%) (Auto) , Differential Total Cells Counted 100, Neutrophils % ( Manual) 76H, Lymphocytes % (Manual) 15L, Monocytes % (Manual) 5, Eosinophils % ( Manual) 3, Basophils % (Manual) 0, Band Neutrophils 1, Platelet Estimate Adequate, Platelet Morphology Normal, Hypochromasia 3+, Anisocytosis 3+, Microcytosis 1+, [place] Cells Occasional, Acanthocytes 1+, Schistocytes 1+, Sodium Level 146H, Potassium Level 2.7*L, Chloride Level 119H, Carbon Dioxide Level 14L, Anion Gap 13, Blood Urea Nitrogen 3L, Creatinine 0.5L, Estimat Glomerular Filtration Rate , Glucose Level 68L, Calcium Level 6.2L, Phosphorus Level 1.2L, Magnesium Level 1.5L, Total Bilirubin 0.2, Aspartate Amino Transf ( AST/SGOT) 20, Alanine Aminotransferase (ALT/SGPT) 11L, Alkaline Phosphatase 56, Total Protein 4.3L, Albumin 1.7L, Globulin 2.6, Albumin/Globulin Ratio 0.7L 11/23/17 08:50: Vitamin D 25-Hydroxy [Pending], 25-Hydroxy Vitamin D2 [Pending], 25-Hydroxy Vitamin D3 [Pending] Height (Feet): 5 Height (Inches): 3.00 Weight (Pounds): 120 General Appearance: no apparent distress, alert Neurologic: depressed affect Tani Kitchen M.D. Nov 23, 2017 19:26
[2017-11-23 20:00] VITALS: BP 155/74
[2017-11-23] MEDS: Dyna-Hex 2% Top Sol 2oz TOPIC SCH (20:57)
[2017-11-23] MEDS: guaiFENesin 100mg/5ml Liq ud ORAL PRN (20:57)
[2017-11-24] VITALS (7 sets, daily range): BP systolic 126–166; BP diastolic 60–99
--- NOTE | 2017-11-24 01:00 | Consultation ---
DATE OF CONSULTATION: 11/23/2017 NEPHROLOGY CONSULTATION CONSULTING PHYSICIAN: Simran Nur M.D. REFERRING PHYSICIAN: Lobito Jones M.D. REASON FOR CONSULTATION: Hypernatremia, hypokalemia, hypophosphatemia, hypomagnesemia, and malnutrition. HISTORY OF PRESENT ILLNESS: The patient is a pleasant, unfortunate 76-year-old female with past medical history significant for history of hypertension, asthma, history of CVA with left-sided hemiparesis, history of severe anemia, but the patient is Anabaptism with no blood transfusion. She presented to emergency room with a complaint of multiple episodes of diarrhea for past few weeks. The patient found to be severely dehydrated, malnourished, hypotensive, was admitted in the medical/surgical unit and I was called for management of renal disease and electrolyte imbalance. PAST MEDICAL HISTORY: 1. History of hypertension. 2. History of dyslipidemia. 3. History of peripheral vascular disease. 4. History of anemia. 5. History of CVA. 6. History of diabetes. 7. History of diabetic neuropathy. PAST SURGICAL HISTORY: 1. History of cholecystectomy. 2. History of cervical spine fusion. 3. History of lumbar spine surgery. 4. History of carotid stenting placement. 5. History of AICD placement. HOME MEDICATIONS: 1. Ascorbic acid one tablet p.o. daily. 2. Aspirin 81 mg p.o. daily. 3. Atorvastatin/Lipitor 80 mg p.o. daily 4. Carvedilol 3.125 mg p.o. daily. 5. Plavix 75 mg p.o. daily. 6. Epogen 10,000 units subcutaneous once a week. 7. Iron sulfate 325 mg p.o. daily. 8. Folic acid one tablet p.o. daily. 9. Iron sucrose 100 mg p.o. daily. 10. Losartan 50 mg p.o. daily. 11. Metformin 500 mg p.o. daily. 12. Remeron 15 mg p.o. daily. 13. Omeprazole 20 mg p.o. daily. 14. Protonix 40 mg p.o. daily. 15. Ranitidine/Zantac 150 mg p.o. b.i.d. 16. Rifampin 300 mg p.o. daily. 17. Vancomycin. 18. Tylenol 650 mg p.o. q.6 h. p.r.n. pain. 19. Bisacodyl p.r.n. constipation. 20. Xanax 0.25 mg p.r.n. anxiety. ALLERGIES: She is allergic to latex and quinine. SOCIAL HISTORY: Anabaptism. She is . There is no current history of tobacco, alcohol, or drug use. FAMILY HISTORY: Noncontributory. REVIEW OF SYSTEMS: GENERAL: She complained of generalized weakness. Denies any fever, chills, or night sweats. HEAD AND NECK: Denies any dysphagia, odynophagia, blurry vision, headache, or neck stiffness. PULMONARY: No shortness of breath, cough, or sputum. CARDIOVASCULAR: Denies any chest pain or palpitation. GASTROINTESTINAL: diarrhea, but denies any current diarrhea, has decreased appetite. GENITOURINARY: Denies any dysuria, frequency, or hematuria. MUSCULOSKELETAL: Denies any weakness or numbness. PHYSICAL EXAMINATION: VITAL SIGNS: The patient had a temperature of 98, blood pressure 136/71, pulse rate of 81, and respiratory rate of 18. HEAD AND NECK: No JVP. No LAD. No thyromegaly. Extraocular movement intact. Pupils are reactive to light and accommodation. LUNGS: Clear to auscultation. CARDIAC: Regular rate and rhythm. S1 and S2. No murmur. No rub. ABDOMEN: Soft, nontender, and nondistended. EXTREMITIES: Trace edema. No clubbing. No cyanosis. NEUROLOGIC: Cranial nerves II to XII within normal limits. Upper and lower extremities are grossly intact. LABORATORY AND DIAGNOSTIC DATA: The patient has sodium of 146, potassium 2.7, chloride 111, bicarbonate is only 14, creatinine is 0.5, and glucose of 68. Calcium of 6.2, phosphorus of 1.2, and magnesium of 1.5. AST of 20, ALT of 11, and alkaline phosphatase of 56. Albumin is only 1.7. Total protein of 4.3. There is no UA. ASSESSMENT: 1. Hypernatremia. 2. Hypokalemia. 3. Non-anion gap acidosis, most likely as a result of diarrhea. 4. Hypocalcemia. 5. Hypomagnesemia. 6. Hypophosphatemia. PLAN: Plan for the patient to obtain UA. Check the urine potassium to calculate transtubular gradient of the potassium, to differentiate GI versus renal loss of the potassium. Replace the potassium. Replace the magnesium. Replace phosphorus. Check vitamin D level for evaluation of hypocalcemia. Nutritional status evaluation. Nutritional support. Monitor renal function and electrolytes closely. Again, I would like to thank, Dr. Jones, for allowing me to participate in the care of this patient. Simran Nur M.D. DR: Abigail JOB#: [id number] CC:
[2017-11-24] MEDS: NovoLOG Insulin Flexpen SUBQ SCH ×4 (06:30→20:50)
--- NOTE | 2017-11-24 08:12 | Consultation ---
Consult Note Assessment/Plan A/ 1) Right hallux DTI 2) Right heel DTI 3) Left heel DTI 4) DM 5) Abnormal mobility P/ 1) Agree with wound nurse assessment and wound protocol. Cont heel protectors 2) Turn q2h 3) Will follow peripherally Thank you Dr Jones and [facility] Blanca [facility] JOHNYN Nov 24, 2017 08:12
[2017-11-24] MEDS: Phospha 250 Neutral tab ORAL SCH ×3 (10:24→17:54)
[2017-11-24] MEDS: metFORMIN 500mg tab ORAL SCH ×2 (10:24→17:54)
[2017-11-24] MEDS: Carvedilol 6.25mg Tab ORAL SCH ×2 (10:27→21:55)
[2017-11-24] MEDS: Losartan 50mg tab ORAL SCH (10:27)
[2017-11-24] MEDS: Aspirin EC 81mg tab ORAL SCH (10:28)
[2017-11-24] MEDS: levETIRAcetam 500mg/NS100ml 100 ML IVPB SCH ×2 (10:30→21:55)
[2017-11-24] MEDS ORDERED: Tubing IV Secondary IV ONE ×2 (11:22→13:50)
--- NOTE | 2017-11-24 11:45 | General Progress Note ---
Assessment/Plan Assessment/Plan 1. Anemia due to iron deficiency. The patient is status post EGD showed solitary ulcer. --> Ongoing iron for 5 days. The patient continued to have iron deficiency. --> The patient is Restorationism and is refusing blood products even though there is increased morbidity, mortality in refusing blood products. --> Continue to monitor. Again, continue to recommend blood transfusions if hemoglobin less than 7. --> Hemoglobin levels have been below goal levels 2. Nausea, vomiting, and diarrhea. --> Closely monitor. Zofran has been administered. 3. Anemia of chronic disease. --> Continue the patient on Epogen. 4. Colitis. --> She is on broad-spectrum antibiotics. --> Improving. 5. Restorationism, refusing blood products. 6. Diarrhea. Recommend the patient to take antibiotics as needed. Check for Clostridium difficile. Subjective Date patient seen: Nov 23, 2017 Constitutional: Denies: no symptoms, chills, diaphoresis, fever, malaise, weakness, other HEENT: Denies: no symptoms, eye pain, blurred vision, tearing, double vision, ear pain, ear discharge, nose pain, nose congestion, throat pain, throat swelling, mouth pain, mouth swelling, other Cardiovascular: Denies: no symptoms, chest pain, edema, irregular heart rate, lightheadedness, palpitations, syncope, other Respiratory: Denies: no symptoms, cough, orthopnea, shortness of breath, SOB with excertion, SOB at rest, sputum, stridor, wheezing, other Gastrointestinal/Abdominal: Denies: no symptoms, abdomen distended, abdominal pain, black stools, tarry stools, blood in stool, constipated, diarrhea, difficulty swallowing, nausea, poor appetite, poor fluid intake, rectal bleeding , vomiting, other Genitourinary: Denies: no symptoms, burning, discharge, frequency, flank pain, hematuria, incontinence, pain, urgency, other Neurologic/Psychiatric: Denies: no symptoms, anxiety, depressed, emotional problems, headache, numbness, paresthesia, pre-existing deficit, seizure, tingling, tremors, weakness, other Endocrine: Denies: no symptoms, excessive sweating, flushing, intolerance to cold, intolerance to heat, increased hunger, increased thirst, increased urine, unexplained weight gain, unexplained weight loss, other Allergies: Coded Allergies: LATEX (Unverified Allergy, Mild, Rash, 09/03/14) QUININE (Unverified Allergy, Unknown, Rash Hives, 05/23/15) Quinine Sulfate Subjective No new events overnight. Ongoing antibiotic treatment. Objective Last 24 Hour Vital Signs Date Time Temp Pulse Resp B/P (MAP) Pulse Ox O2 Delivery O2 Flow Rate FiO2 11/24/17 10:27 85 137/68 11/24/17 10:27 137/68 11/24/17 08:00 97.3 75 18 136/76 100 97.3 11/24/17 04:47 97.5 83 18 126/60 98 Room Air 97.5 11/24/17 00:30 149/73 11/24/17 00:00 97.7 81 19 166/94 97.7 11/23/17 20:00 95.9 73 18 155/74 93 95.9 11/23/17 17:23 69 129/72 11/23/17 16:56 Room Air 11/23/17 16:00 97.4 69 17 129/72 96 97.4 11/23/17 12:00 Room Air 11/23/17 12:00 98.1 86 20 152/88 94 98.1 Intake and Output 11/23/17 11/24/17 19:00 07:00 Intake Total 867.5 ml 780 ml Output Total 100 ml Balance 867.5 ml 680 ml Intake Oral 25 ml 180 ml IV Total 842.5 ml 600 ml Output Urine Total 100 ml # Voids 2 1 Height (Feet): 5 Height (Inches): 3.00 Weight (Pounds): 120 General Appearance: no apparent distress Respiratory/Chest: decreased breath sounds Abdomen: soft Dg Fairbanks MD Nov 24, 2017 11:45
--- NOTE | 2017-11-24 11:47 | General Progress Note ---
Assessment/Plan Problem List: (1) Duodenal ulcer ICD Codes: K26.9 - Duodenal ulcer, unspecified as acute or chronic, without hemorrhage or perforation SNOMED: 74440024 (2) Patient is Latter-day ICD Codes: Z78.9 - Other specified health status SNOMED: 70929499 (3) AICD (automatic cardioverter/defibrillator) present ICD Codes: Z95.810 - Presence of automatic (implantable) cardiac defibrillator SNOMED: 54757789, 942073656 (4) Pacemaker ICD Codes: Z95.0 - Pacemaker SNOMED: 847133774 (5) CVA (cerebrovascular accident) ICD Codes: I63.9 - Cerebrovascular accident SNOMED: 474859611 (6) Diabetes mellitus ICD Codes: E11.9 - Diabetes mellitus SNOMED: 90978119 (7) Anemia ICD Codes: D64.9 - Anemia, unspecified SNOMED: 848843223 (8) Diabetes mellitus ICD Codes: E11.9 - Type 2 diabetes mellitus without complications SNOMED: 48516469 Assessment/Plan ppi fu path fu H.pylori serology poor po intake, will need family meeting for further management plans Subjective ROS Limited/Unobtainable: No Allergies: Coded Allergies: LATEX (Unverified Allergy, Mild, Rash, 09/03/14) QUININE (Unverified Allergy, Unknown, Rash Hives, 05/23/15) Quinine Sulfate Objective Last 24 Hour Vital Signs Date Time Temp Pulse Resp B/P (MAP) Pulse Ox O2 Delivery O2 Flow Rate FiO2 11/24/17 10:27 85 137/68 11/24/17 10:27 137/68 11/24/17 08:00 97.3 75 18 136/76 100 97.3 11/24/17 04:47 97.5 83 18 126/60 98 Room Air 97.5 11/24/17 00:30 149/73 11/24/17 00:00 97.7 81 19 166/94 97.7 11/23/17 20:00 95.9 73 18 155/74 93 95.9 11/23/17 17:23 69 129/72 11/23/17 16:56 Room Air 11/23/17 16:00 97.4 69 17 129/72 96 97.4 11/23/17 12:00 Room Air 11/23/17 12:00 98.1 86 20 152/88 94 98.1 Intake and Output 11/23/17 11/24/17 19:00 07:00 Intake Total 867.5 ml 780 ml Output Total 100 ml Balance 867.5 ml 680 ml Intake Oral 25 ml 180 ml IV Total 842.5 ml 600 ml Output Urine Total 100 ml # Voids 2 1 Height (Feet): 5 Height (Inches): 3.00 Weight (Pounds): 120 General Appearance: confused EENT: normal ENT inspection Neck: supple Cardiovascular: normal rate Respiratory/Chest: decreased breath sounds Abdomen: normal bowel sounds, non tender, soft Extremities: non-tender ORIANA CANALES Nov 24, 2017 11:46
--- NOTE | 2017-11-24 17:00 | Nephrology Progress Note ---
Assessment/Plan Assessment 1. Hypernatremia. 2. Hypokalemia. 3. Non-anion gap acidosis, most likely as a result of diarrhea. 4. Hypocalcemia. 5. Hypomagnesemia. 6. Hypophosphatemia. Plan check stat lab monitoring renal function avoid NSAID nutritional support replace electrolyte as need it Subjective Constitutional: Reports: no symptoms HEENT: Reports: no symptoms Genitourinary: Reports: no symptoms Neurologic/Psychiatric: Reports: no symptoms Subjective alert and awake no complaints decrease oral intake Objective Objective Last 24 Hour Vital Signs Date Time Temp Pulse Resp B/P (MAP) Pulse Ox O2 Delivery O2 Flow Rate FiO2 11/24/17 15:52 96.8 79 18 160/93 96 96.8 11/24/17 15:43 160/93 11/24/17 11:47 98.0 74 155/68 98.0 11/24/17 10:27 85 137/68 11/24/17 10:27 137/68 11/24/17 08:00 97.3 75 18 136/76 100 97.3 11/24/17 04:47 97.5 83 18 126/60 98 Room Air 97.5 11/24/17 00:30 149/73 11/24/17 00:00 97.7 81 19 166/94 97.7 11/23/17 20:00 95.9 73 18 155/74 93 95.9 11/23/17 17:23 69 129/72 Intake and Output 11/23/17 11/24/17 19:00 07:00 Intake Total 867.5 ml 780 ml Output Total 100 ml Balance 867.5 ml 680 ml Intake Oral 25 ml 180 ml IV Total 842.5 ml 600 ml Output Urine Total 100 ml # Voids 2 1 Height (Feet): 5 Height (Inches): 3.00 Weight (Pounds): 120 Objective HEAD AND NECK: No JVP. No LAD. No thyromegaly. Extraocular movement intact. Pupils are reactive to light and accommodation. LUNGS: Clear to auscultation. CARDIAC: Regular rate and rhythm. S1 and S2. No murmur. No rub. ABDOMEN: Soft, nontender, and nondistended. EXTREMITIES: Trace edema. No clubbing. No cyanosis. NEUROLOGIC: Cranial nerves II to XII within normal limits. Upper and lower extremities are grossly intact. BAHMANI,SAKSHI Nov 24, 2017 17:00
--- NOTE | 2017-11-24 17:24 | Pulmonology Progress Note ---
Assessment/Plan Problems: (1) Anemia (2) colitis (3) Asthma (4) CVA (cerebrovascular accident) (5) Diabetes mellitus Assessment/Plan no labs for a few days, dc all mind altering meds, including Remeron dc aspirin since it causes PLT dysfunction diarrhea got better eating better avoid excessive blood testing on Epogen, Venofer, vitamin check h/h sliding saleem Subjective ROS Limited/Unobtainable: No Constitutional: Reports: no symptoms HEENT: Repors: no symptoms Respiratory: Reports: no symptoms Allergies: Coded Allergies: LATEX (Unverified Allergy, Mild, Rash, 09/03/14) QUININE (Unverified Allergy, Unknown, Rash Hives, 05/23/15) Quinine Sulfate Objective Last 24 Hour Vital Signs Date Time Temp Pulse Resp B/P (MAP) Pulse Ox O2 Delivery O2 Flow Rate FiO2 11/24/17 15:52 96.8 79 18 160/93 96 96.8 11/24/17 15:43 160/93 11/24/17 11:47 98.0 74 155/68 98.0 11/24/17 10:27 85 137/68 11/24/17 10:27 137/68 11/24/17 08:00 97.3 75 18 136/76 100 97.3 11/24/17 04:47 97.5 83 18 126/60 98 Room Air 97.5 11/24/17 00:30 149/73 11/24/17 00:00 97.7 81 19 166/94 97.7 11/23/17 20:00 95.9 73 18 155/74 93 95.9 Intake and Output 11/23/17 11/24/17 19:00 07:00 Intake Total 867.5 ml 780 ml Output Total 100 ml Balance 867.5 ml 680 ml Intake Oral 25 ml 180 ml IV Total 842.5 ml 600 ml Output Urine Total 100 ml # Voids 2 1 Objective General Appearance: WD/WN HEENT: normocephalic, atraumatic Respiratory/Chest: chest wall non-tender, lungs clear Cardiovascular: normal peripheral pulses, normal rate Abdomen: normal bowel sounds, soft, non tender Genitourinary: normal external genitalia Extremities: no cyanosis Skin: no rash, no ulcers Current Medications Medications (Trade) Dose Ordered Sig/Don Route PRN Reason Start Time Stop Time Status Last Admin Dose Admin Aspirin (Ecotrin) 81 mg DAILY ORAL 11/23/17 09:00 12/15/17 08:59 11/24/17 10:28 Carvedilol (Coreg) 6.25 mg Q12HR ORAL 11/23/17 18:00 12/23/17 17:59 11/24/17 10:27 Chlorhexidine Gluconate (Merari-Hex 2%) 1 applic DAILY@2000 TOPIC 11/22/17 20:00 12/16/17 19:59 11/23/17 20:57 Clonidine HCl (Catapres Tab) 0.1 mg Q6H PRN ORAL FOR SBP>160 11/22/17 17:00 12/18/17 16:59 11/24/17 15:43 Dextrose (Dextrose 50%) STAT PRN IV Hypoglycemia 11/22/17 17:00 12/14/17 16:59 Diphenoxylate HCl/ Atropine (Lomotil) 2.5 mg Q6H PRN ORAL Diarrhea 11/22/17 18:00 12/22/17 17:59 Epoetin Barak (Procrit (for non ESRD use)) 20,000 units Q48H SUBQ 11/24/17 21:00 12/24/17 20:59 Folic Acid (Folate) 1 mg DAILY ORAL 11/23/17 09:00 12/16/17 08:59 11/24/17 10:27 Guaifenesin (Robitussin) 100 mg EVERY 6 HOURS PRN ORAL For Cough 11/23/17 19:30 12/23/17 19:29 11/23/17 20:57 Insulin Aspart (NovoLOG) BEFORE MEALS AND HS SUBQ 11/22/17 18:00 12/15/17 17:59 11/22/17 21:48 Levetiracetam 100 ml @ 400 mls/hr Q12HR IVPB 11/22/17 21:00 12/19/17 21:59 11/24/17 10:30 Lorazepam (Ativan 2mg/ml 1ml) 1 mg Q4H PRN IV For Seizures 11/22/17 17:00 11/26/17 16:59 Losartan Potassium (Cozaar) 50 mg DAILY ORAL 11/23/17 09:00 12/15/17 08:59 11/24/17 10:27 Metformin HCl (Glucophage) 500 mg TWICE A DAY ORAL 11/22/17 18:00 12/15/17 08:59 11/24/17 10:24 Mirtazapine (Remeron) 30 mg BEDTIME ORAL 11/23/17 21:00 12/23/17 20:59 11/23/17 21:01 Ondansetron HCl (Zofran) 4 mg Q4H PRN IVP Nausea & Vomiting 11/22/17 17:00 12/22/17 16:59 Pantoprazole (Protonix) 40 mg BID ORAL 11/23/17 18:00 12/22/17 08:59 11/24/17 10:25 Phosphorus (Phospha 250 Neutral) 500 mg THREE TIMES A DAY ORAL 11/23/17 18:00 12/23/17 17:59 11/24/17 10:24 Potassium Chloride (K-Dur) 40 meq TWICE A DAY ORAL 11/23/17 18:00 12/23/17 17:59 11/24/17 10:25 Zolpidem Tartrate (Ambien) 5 mg HSPRN PRN ORAL Insomnia 11/24/17 00:15 12/01/17 00:14 Juana Watson MD Nov 24, 2017 17:24
--- NOTE | 2017-11-24 17:32 | Internal Med Progress Note ---
Subjective Date of Service: Nov 24, 2017 Physician Name Delfin Martinez Attending Physician Lobito Jones MD Current Medications Medications (Trade) Dose Ordered Sig/Don Route PRN Reason Start Time Stop Time Status Last Admin Dose Admin Carvedilol (Coreg) 6.25 mg Q12HR ORAL 11/23/17 18:00 12/23/17 17:59 11/24/17 10:27 Chlorhexidine Gluconate (Merari-Hex 2%) 1 applic DAILY@2000 TOPIC 11/22/17 20:00 12/16/17 19:59 11/23/17 20:57 Clonidine HCl (Catapres Tab) 0.1 mg Q6H PRN ORAL FOR SBP>160 11/22/17 17:00 12/18/17 16:59 11/24/17 15:43 Dextrose (Dextrose 50%) STAT PRN IV Hypoglycemia 11/22/17 17:00 12/14/17 16:59 Diphenoxylate HCl/ Atropine (Lomotil) 2.5 mg Q6H PRN ORAL Diarrhea 11/22/17 18:00 12/22/17 17:59 Epoetin Barak (Procrit (for non ESRD use)) 20,000 units Q48H SUBQ 11/24/17 21:00 12/24/17 20:59 Folic Acid (Folate) 1 mg DAILY ORAL 11/23/17 09:00 12/16/17 08:59 11/24/17 10:27 Guaifenesin (Robitussin) 100 mg EVERY 6 HOURS PRN ORAL For Cough 11/23/17 19:30 12/23/17 19:29 11/23/17 20:57 Insulin Aspart (NovoLOG) BEFORE MEALS AND HS SUBQ 11/22/17 18:00 12/15/17 17:59 11/22/17 21:48 Levetiracetam 100 ml @ 400 mls/hr Q12HR IVPB 11/22/17 21:00 12/19/17 21:59 11/24/17 10:30 Lorazepam (Ativan 2mg/ml 1ml) 1 mg Q4H PRN IV For Seizures 11/22/17 17:00 11/26/17 16:59 Losartan Potassium (Cozaar) 50 mg DAILY ORAL 11/23/17 09:00 12/15/17 08:59 11/24/17 10:27 Metformin HCl (Glucophage) 500 mg TWICE A DAY ORAL 11/22/17 18:00 12/15/17 08:59 11/24/17 10:24 Ondansetron HCl (Zofran) 4 mg Q4H PRN IVP Nausea & Vomiting 11/22/17 17:00 12/22/17 16:59 Pantoprazole (Protonix) 40 mg BID ORAL 11/23/17 18:00 12/22/17 08:59 11/24/17 10:25 Phosphorus (Phospha 250 Neutral) 500 mg THREE TIMES A DAY ORAL 11/23/17 18:00 12/23/17 17:59 11/24/17 10:24 Potassium Chloride (K-Dur) 40 meq TWICE A DAY ORAL 11/23/17 18:00 12/23/17 17:59 11/24/17 10:25 Zolpidem Tartrate (Ambien) 5 mg HSPRN PRN ORAL Insomnia 11/24/17 00:15 12/01/17 00:14 Allergies: Coded Allergies: LATEX (Unverified Allergy, Mild, Rash, 09/03/14) QUININE (Unverified Allergy, Unknown, Rash Hives, 05/23/15) Quinine Sulfate ROS Limited/Unobtainable: No Constitutional: Reports: no symptoms HEENT: Reports: no symptoms Cardiovascular: Reports: no symptoms Respiratory: Reports: no symptoms Gastrointestinal/Abdominal: Reports: no symptoms Genitourinary: Reports: no symptoms Neurologic/Psychiatric: Reports: no symptoms Subjective 76 YO F admitted with diarrhea and dehydration. S/P Endoscopy 11/21/17. Decreased appetite. Cover for Int Madan-Dr Jones Objective Last Vital Signs Date Time Temp Pulse Resp B/P (MAP) Pulse Ox O2 Delivery O2 Flow Rate FiO2 11/24/17 15:52 96.8 79 18 160/93 96 96.8 11/24/17 04:47 Room Air 11/22/17 04:00 2.0 Intake and Output 11/23/17 11/24/17 19:00 07:00 Intake Total 867.5 ml 780 ml Output Total 100 ml Balance 867.5 ml 680 ml Intake Oral 25 ml 180 ml IV Total 842.5 ml 600 ml Output Urine Total 100 ml # Voids 2 1 Objective General Appearance: mild distress, thin EENT: PERRL/EOMI, normal ENT inspection Neck: non-tender, normal alignment, supple Cardiovascular: normal peripheral pulses, normal rate, regular rhythm, no gallop/murmur, no JVD Respiratory/Chest: chest wall non-tender, lungs clear, normal breath sounds, no respiratory distress, no accessory muscle use Abdomen: normal bowel sounds, no mass, abnormal bowel sounds, decreased bowel sounds, tender Extremities: normal range of motion, non-tender Neurologic: special librarian II-XII grossly normal, no motor/sensory deficits Skin: normal pigmentation, warm/dry Assessment/Plan Problem List: (1) Diarrhea Assessment & Plan: Colonoscopy cancelled due to hypokalemia and lack of prep (2) Gastritis Assessment & Plan: S/P Endoscopy 11/21/17-see GI note. (3) Dehydration (4) Abdominal pain (5) CVA (cerebrovascular accident) (6) Left hemiparesis (7) Diabetes mellitus Assessment & Plan: Continue metformin (8) Hypertension Assessment & Plan: continue losartan (9) Anemia Assessment & Plan: Severe. Scientologist-refused transfruion. See hematology note. 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
--- NOTE | 2017-11-24 18:15 | Consultation ---
DATE OF CONSULTATION: 11/24/2017 CONSULTING PHYSICIAN: Nir Jimenez D.P.M. REQUESTING PHYSICIAN: Lobito Jones M.D. REASON FOR CONSULTATION: Pedal wounds in the presence of diabetes mellitus. HISTORY OF PRESENT ILLNESS: The patient is a 76-year-old [place], who was admitted to [facility] on 11/14/2017 for colitis, vomiting, and diarrhea. The patient is alert, but minimally verbal. History was obtained mainly through chart review. PAST MEDICAL HISTORY: Significant for right femur fracture, severe iron deficiency anemia, history of cerebrovascular accident, left hemiparesis, coronary artery disease, congestive heart failure, type 2 diabetes, hypertension, hypercholesteremia, history of DVT with IVC placement, and AICD placement. PAST SURGICAL HISTORY: Cholecystectomy, cervical spine fusion, lumbar spine fusion, bilateral knee arthroplasty, carotid stenting, and pacemaker placement. MEDICATIONS: Per NOV. ALLERGIES: She has allergy to latex and quinine. FAMILY HISTORY: Noncontributory. SOCIAL HISTORY: Noncontributory. REVIEW OF SYSTEMS: Difficult to obtain. PHYSICAL EXAMINATION: GENERAL: The patient again is alert, but minimally verbal. VITAL SIGNS: Temperature is 97.5, pulse is 83, respiration is 18, blood pressure is 126/60, saturating 98% on room air. EXTREMITIES: Lower extremity physical exam, vascular, nonpalpable pedal pulses noted bilaterally. Feet are equally warm. There is bilateral 2+ pitting edema noted. No cyanosis is noted. DERMATOLOGICAL: There are deep tissue injuries noted to the distal right hallux, posterior right heel, and posterior left heel. None of these sites have any signs of acute infection. There is no drainage noted from any of these sites. No deep vital structures exposed. The areas are all dry and stable. MUSCULOSKELETAL: The patient has normal muscle strength noted bilaterally. She has contractures of the toes noted. She is currently bedbound. NEUROLOGICAL: Protective threshold is diminished. IMAGING: There is venous ultrasound of bilateral lower extremity on this admission noting on the right lower extremity, a recanalized chronic thrombus in the common femoral, superficial, and popliteal calf veins. There is also a recanalized chronic thrombus on the left lower extremity in the superficial femoral, large collateral veins. LABORATORY DATA: White blood cell count is 7.3, hemoglobin of 5.7, hematocrit 18.1, and platelet count is 227,000. Potassium 2.7, creatinine is 0.5, and glucose is 68. Albumin is 1.7. ASSESSMENT: 1. Right hallux deep tissue injury. 2. Right heel deep tissue injury. 3. Left heel deep tissue injury. 4. Diabetes mellitus, type 2. 5. Abnormal mobility and gait. PLAN: 1. Agree with wound nurse's assessments as well as treatment protocols, continue with heel protectors. 2. Q.2-hour turning of the patient. 3. We will follow this patient peripherally. Thank you for the courtesy of this consultation. Nir Jimenez D.P.M. DR: VIOLETA JOB#: [id number] CC:
[2017-11-24] MEDS ORDERED: Potassium Chloride 40 MEQ in Sodium Chloride 500ML 550 ML IVPB ONE (18:30)
[2017-11-24] MEDS: Dyna-Hex 2% Top Sol 2oz TOPIC SCH (21:55)
[2017-11-24] MEDS: Epogen (for non ESRD use) SUBQ SCH (21:55)
[2017-11-24] MEDS: guaiFENesin 100mg/5ml Liq ud ORAL PRN (21:56)
[2017-11-24] MEDS: Zolpidem 5mg tab ORAL PRN (21:56)
[2017-11-25] VITALS: BP 130/82
[2017-11-25 04:00] VITALS: BP 150/99
[2017-11-25] MEDS: NovoLOG Insulin Flexpen SUBQ SCH ×4 (06:23→20:36)
[2017-11-25 08:00] VITALS: BP 143/97
[2017-11-25] MEDS: Carvedilol 6.25mg Tab ORAL SCH ×2 (08:45→21:12)
[2017-11-25] MEDS: Losartan 50mg tab ORAL SCH (08:45)
[2017-11-25] MEDS: Phospha 250 Neutral tab ORAL SCH ×3 (08:45→17:15)
[2017-11-25] MEDS: metFORMIN 500mg tab ORAL SCH ×2 (08:45→17:15)
[2017-11-25] MEDS: levETIRAcetam 500mg/NS100ml 100 ML IVPB SCH ×2 (08:46→21:12)
--- NOTE | 2017-11-25 09:02 | General Progress Note ---
Assessment/Plan Problem List: (1) Duodenal ulcer ICD Codes: K26.9 - Duodenal ulcer, unspecified as acute or chronic, without hemorrhage or perforation SNOMED: 14541190 (2) Patient is Denominational ICD Codes: Z78.9 - Other specified health status SNOMED: 36098930 (3) AICD (automatic cardioverter/defibrillator) present ICD Codes: Z95.810 - Presence of automatic (implantable) cardiac defibrillator SNOMED: 85043973, 941095709 (4) Pacemaker ICD Codes: Z95.0 - Pacemaker SNOMED: 063177579 (5) CVA (cerebrovascular accident) ICD Codes: I63.9 - Cerebrovascular accident SNOMED: 725832753 (6) Diabetes mellitus ICD Codes: E11.9 - Diabetes mellitus SNOMED: 82378650 (7) Anemia ICD Codes: D64.9 - Anemia, unspecified SNOMED: 112762474 (8) Diabetes mellitus ICD Codes: E11.9 - Type 2 diabetes mellitus without complications SNOMED: 46559504 Assessment/Plan ppi fu path fu H.pylori serology poor po intake, will need family meeting for further management plans dc lomotil add colace Subjective ROS Limited/Unobtainable: No Allergies: Coded Allergies: LATEX (Unverified Allergy, Mild, Rash, 09/03/14) QUININE (Unverified Allergy, Unknown, Rash Hives, 05/23/15) Quinine Sulfate Objective Last 24 Hour Vital Signs Date Time Temp Pulse Resp B/P (MAP) Pulse Ox O2 Delivery O2 Flow Rate FiO2 11/25/17 08:45 85 143/97 11/25/17 08:45 143/97 11/25/17 08:00 97.2 85 20 143/97 98 97.2 11/25/17 05:52 Room Air 11/25/17 04:00 97.3 90 19 150/99 92 97.3 11/25/17 00:00 97.3 83 18 130/82 100 Room Air 97.3 11/24/17 21:55 101 149/99 11/24/17 21:50 101 94 Room Air 11/24/17 20:00 97.5 58 20 149/99 90 Room Air 97.5 11/24/17 15:52 96.8 79 18 160/93 96 96.8 11/24/17 15:43 160/93 11/24/17 11:47 98.0 74 155/68 98.0 11/24/17 10:27 85 137/68 11/24/17 10:27 137/68 Intake and Output 11/24/17 11/25/17 19:00 07:00 Intake Total 730.0 ml Output Total 300 ml 390 ml Balance -300 ml 340.0 ml Intake Oral 60 ml IV Total 670.0 ml Output Urine Total 300 ml 390 ml Height (Feet): 5 Height (Inches): 3.00 Weight (Pounds): 120 General Appearance: no apparent distress EENT: normal ENT inspection Neck: supple Cardiovascular: normal rate Respiratory/Chest: decreased breath sounds Abdomen: normal bowel sounds, non tender, soft Extremities: non-tender ORIANA CANALES Nov 25, 2017 09:02
[2017-11-25 12:00] VITALS: BP 152/90
--- NOTE | 2017-11-25 12:51 | General Progress Note ---
Assessment/Plan Assessment/Plan 1. Anemia due to iron deficiency. The patient is status post EGD showed solitary ulcer. --> Ongoing iron for 5 days. The patient continued to have iron deficiency. --> The patient is Voodoo and is refusing blood products even though there is increased morbidity, mortality in refusing blood products. --> Continue to monitor. Again, continue to recommend blood transfusions if hemoglobin less than 7. --> Hemoglobin levels have been below goal levels 2. Nausea, vomiting, and diarrhea. --> Closely monitor. Zofran has been administered. --> Improved. On Colace 3. Anemia of chronic disease. --> Continue the patient on Epogen. 4. Colitis. --> She is on broad-spectrum antibiotics. --> Improving. 5. Voodoo, refusing blood products. 6. Diarrhea. Recommend the patient to take antibiotics as needed. Check for Clostridium difficile. --> Start colace Subjective Date patient seen: Nov 24, 2017 Constitutional: Denies: no symptoms, chills, diaphoresis, fever, malaise, weakness, other HEENT: Denies: no symptoms, eye pain, blurred vision, tearing, double vision, ear pain, ear discharge, nose pain, nose congestion, throat pain, throat swelling, mouth pain, mouth swelling, other Cardiovascular: Denies: no symptoms, chest pain, edema, irregular heart rate, lightheadedness, palpitations, syncope, other Respiratory: Denies: no symptoms, cough, orthopnea, shortness of breath, SOB with excertion, SOB at rest, sputum, stridor, wheezing, other Gastrointestinal/Abdominal: Denies: no symptoms, abdomen distended, abdominal pain, black stools, tarry stools, blood in stool, constipated, diarrhea, difficulty swallowing, nausea, poor appetite, poor fluid intake, rectal bleeding , vomiting, other Genitourinary: Denies: no symptoms, burning, discharge, frequency, flank pain, hematuria, incontinence, pain, urgency, other Neurologic/Psychiatric: Denies: no symptoms, anxiety, depressed, emotional problems, headache, numbness, paresthesia, pre-existing deficit, seizure, tingling, tremors, weakness, other Hematologic/Lymphatic: Reports: anemia Allergies: Coded Allergies: LATEX (Unverified Allergy, Mild, Rash, 09/03/14) QUININE (Unverified Allergy, Unknown, Rash Hives, 05/23/15) Quinine Sulfate Subjective No new events overnight. No fever or chills. Objective Last 24 Hour Vital Signs Date Time Temp Pulse Resp B/P (MAP) Pulse Ox O2 Delivery O2 Flow Rate FiO2 11/25/17 12:00 96.4 76 20 152/90 100 96.4 11/25/17 08:45 85 143/97 11/25/17 08:45 143/97 11/25/17 08:00 97.2 85 20 143/97 98 97.2 11/25/17 05:52 Room Air 11/25/17 04:00 97.3 90 19 150/99 92 97.3 11/25/17 00:00 97.3 83 18 130/82 100 Room Air 97.3 11/24/17 21:55 101 149/99 11/24/17 21:50 101 94 Room Air 11/24/17 20:00 97.5 58 20 149/99 90 Room Air 97.5 11/24/17 15:52 96.8 79 18 160/93 96 96.8 11/24/17 15:43 160/93 Intake and Output 11/24/17 11/25/17 19:00 07:00 Intake Total 730.0 ml Output Total 300 ml 390 ml Balance -300 ml 340.0 ml Intake Oral 60 ml IV Total 670.0 ml Output Urine Total 300 ml 390 ml Height (Feet): 5 Height (Inches): 3.00 Weight (Pounds): 120 General Appearance: confused Respiratory/Chest: decreased breath sounds Abdomen: soft Dg Fairbanks MD Nov 25, 2017 12:51
--- NOTE | 2017-11-25 15:16 | Internal Med Progress Note ---
Subjective Date of Service: Nov 25, 2017 Physician Name Rios,Delfin Attending Physician Lobito Jones MD Current Medications Medications (Trade) Dose Ordered Sig/Don Route PRN Reason Start Time Stop Time Status Last Admin Dose Admin Carvedilol (Coreg) 6.25 mg Q12HR ORAL 11/23/17 18:00 12/23/17 17:59 11/25/17 08:45 Chlorhexidine Gluconate (Merari-Hex 2%) 1 applic DAILY@2000 TOPIC 11/22/17 20:00 12/16/17 19:59 11/24/17 21:55 Clonidine HCl (Catapres Tab) 0.1 mg Q6H PRN ORAL FOR SBP>160 11/22/17 17:00 12/18/17 16:59 11/24/17 15:43 Dextrose (Dextrose 50%) STAT PRN IV Hypoglycemia 11/22/17 17:00 12/14/17 16:59 Docusate Sodium (Colace) 100 mg TWICE A DAY ORAL 11/25/17 18:00 12/25/17 17:59 Dronabinol (Marinol) 2.5 mg BID ORAL 11/25/17 18:00 12/25/17 17:59 Epoetin Barak (Procrit (for non ESRD use)) 20,000 units Q48H SUBQ 11/24/17 21:00 12/24/17 20:59 11/24/17 21:55 Folic Acid (Folate) 1 mg DAILY ORAL 11/23/17 09:00 12/16/17 08:59 11/25/17 08:45 Guaifenesin (Robitussin) 100 mg EVERY 6 HOURS PRN ORAL For Cough 11/23/17 19:30 12/23/17 19:29 11/24/17 21:56 Insulin Aspart (NovoLOG) BEFORE MEALS AND HS SUBQ 11/22/17 18:00 12/15/17 17:59 11/22/17 21:48 Levetiracetam 100 ml @ 400 mls/hr Q12HR IVPB 11/22/17 21:00 12/19/17 21:59 11/25/17 08:46 Lorazepam (Ativan 2mg/ml 1ml) 1 mg Q4H PRN IV For Seizures 11/22/17 17:00 11/26/17 16:59 Losartan Potassium (Cozaar) 50 mg DAILY ORAL 11/23/17 09:00 12/15/17 08:59 11/25/17 08:45 Metformin HCl (Glucophage) 500 mg TWICE A DAY ORAL 11/22/17 18:00 12/15/17 08:59 11/25/17 08:45 Ondansetron HCl (Zofran) 4 mg Q4H PRN IVP Nausea & Vomiting 11/22/17 17:00 12/22/17 16:59 Pantoprazole (Protonix) 40 mg BID ORAL 11/23/17 18:00 12/22/17 08:59 11/25/17 08:45 Phosphorus (Phospha 250 Neutral) 500 mg THREE TIMES A DAY ORAL 11/23/17 18:00 12/23/17 17:59 11/25/17 13:36 Zolpidem Tartrate (Ambien) 5 mg HSPRN PRN ORAL Insomnia 11/24/17 00:15 12/01/17 00:14 11/24/17 21:56 Allergies: Coded Allergies: LATEX (Unverified Allergy, Mild, Rash, 09/03/14) QUININE (Unverified Allergy, Unknown, Rash Hives, 05/23/15) Quinine Sulfate ROS Limited/Unobtainable: No Constitutional: Reports: no symptoms HEENT: Reports: no symptoms Cardiovascular: Reports: no symptoms Respiratory: Reports: no symptoms Gastrointestinal/Abdominal: Reports: no symptoms Genitourinary: Reports: no symptoms Neurologic/Psychiatric: Reports: no symptoms Subjective 76 YO F admitted with diarrhea and dehydration. S/P Endoscopy 11/21/17. Decreased appetite. Cover for Int Madan-Dr Jones Objective Last Vital Signs Date Time Temp Pulse Resp B/P (MAP) Pulse Ox O2 Delivery O2 Flow Rate FiO2 11/25/17 12:00 96.4 76 20 152/90 100 96.4 11/25/17 05:52 Room Air 11/22/17 04:00 2.0 Intake and Output 11/24/17 11/25/17 19:00 07:00 Intake Total 730.0 ml Output Total 300 ml 390 ml Balance -300 ml 340.0 ml Intake Oral 60 ml IV Total 670.0 ml Output Urine Total 300 ml 390 ml Objective General Appearance: mild distress, thin EENT: PERRL/EOMI, normal ENT inspection Neck: non-tender, normal alignment, supple Cardiovascular: normal peripheral pulses, normal rate, regular rhythm, no gallop/murmur, no JVD Respiratory/Chest: chest wall non-tender, lungs clear, normal breath sounds, no respiratory distress, no accessory muscle use Abdomen: normal bowel sounds, no mass, abnormal bowel sounds, decreased bowel sounds, tender Extremities: normal range of motion, non-tender Neurologic: development assistant II-XII grossly normal, no motor/sensory deficits Skin: normal pigmentation, warm/dry Assessment/Plan Problem List: (1) Diarrhea Assessment & Plan: Colonoscopy cancelled due to hypokalemia and lack of prep (2) Gastritis Assessment & Plan: S/P Endoscopy 11/21/17-see GI note. (3) Dehydration (4) Abdominal pain (5) CVA (cerebrovascular accident) (6) Left hemiparesis (7) Diabetes mellitus Assessment & Plan: Continue metformin (8) Hypertension Assessment & Plan: continue losartan (9) Anemia Assessment & Plan: Severe. Holiness-refused transfruion. See hematology note. (10) Patient is Holiness (11) Seizure disorder Assessment & Plan: New onset; Continue keppra per neurology (12) Duodenal ulcer Assessment & Plan: Continue protonix per DELFIN ALONZO Nov 25, 2017 15:16
[2017-11-25 16:00] VITALS: BP 145/75
[2017-11-25] MEDS: Dronabinol 2.5mg Cap ORAL SCH (17:15)
[2017-11-25] MEDS ORDERED: Docusate 100mg cap ORAL SCH (18:00)
[2017-11-25] MEDS: guaiFENesin 100mg/5ml Liq ud ORAL PRN (18:41)
--- NOTE | 2017-11-25 19:57 | Nephrology Progress Note ---
Assessment/Plan Assessment 1. Hypernatremia. 2. Hypokalemia. 3. Non-anion gap acidosis, most likely as a result of diarrhea. 4. Hypocalcemia. 5. Hypomagnesemia. 6. Hypophosphatemia. Plan check stat lab monitoring renal function avoid NSAID nutritional support replace electrolyte as need it Subjective Constitutional: Reports: no symptoms HEENT: Reports: no symptoms Genitourinary: Reports: no symptoms Neurologic/Psychiatric: Reports: no symptoms Subjective alert and awake no complaints decrease oral intake Objective Objective Last 24 Hour Vital Signs Date Time Temp Pulse Resp B/P (MAP) Pulse Ox O2 Delivery O2 Flow Rate FiO2 11/25/17 16:00 96.6 78 20 145/75 95 96.6 11/25/17 12:00 96.4 76 20 152/90 100 96.4 11/25/17 08:45 85 143/97 11/25/17 08:45 143/97 11/25/17 08:00 97.2 85 20 143/97 98 97.2 11/25/17 05:52 Room Air 11/25/17 04:00 97.3 90 19 150/99 92 97.3 11/25/17 00:00 97.3 83 18 130/82 100 Room Air 97.3 11/24/17 21:55 101 149/99 11/24/17 21:50 101 94 Room Air 11/24/17 20:00 97.5 58 20 149/99 90 Room Air 97.5 Intake and Output 11/24/17 11/25/17 19:00 07:00 Intake Total 730.0 ml Output Total 300 ml 390 ml Balance -300 ml 340.0 ml Intake Oral 60 ml IV Total 670.0 ml Output Urine Total 300 ml 390 ml Height (Feet): 5 Height (Inches): 3.00 Weight (Pounds): 120 Objective HEAD AND NECK: No JVP. No LAD. No thyromegaly. Extraocular movement intact. Pupils are reactive to light and accommodation. LUNGS: Clear to auscultation. CARDIAC: Regular rate and rhythm. S1 and S2. No murmur. No rub. ABDOMEN: Soft, nontender, and nondistended. EXTREMITIES: Trace edema. No clubbing. No cyanosis. NEUROLOGIC: Cranial nerves II to XII within normal limits. Upper and lower extremities are grossly intact. BAHMANI,SAKSHI Nov 25, 2017 19:57
[2017-11-25] MEDS ORDERED: Chloraseptic Spray 20mL Bottle ORAL PRN (20:00)
[2017-11-25 20:24] VITALS: BP 139/103
[2017-11-25] MEDS: Dyna-Hex 2% Top Sol 2oz TOPIC SCH (21:11)
--- NOTE | 2017-11-25 22:19 | Pulmonology Progress Note ---
Assessment/Plan Problems: (1) Anemia (2) colitis (3) Asthma (4) CVA (cerebrovascular accident) (5) Diabetes mellitus Assessment/Plan slightly better no labs for a few days, eating better on Epogen, Venofer, vitamin check h/h sliding saleem Subjective ROS Limited/Unobtainable: No Allergies: Coded Allergies: LATEX (Unverified Allergy, Mild, Rash, 09/03/14) QUININE (Unverified Allergy, Unknown, Rash Hives, 05/23/15) Quinine Sulfate Objective Last 24 Hour Vital Signs Date Time Temp Pulse Resp B/P (MAP) Pulse Ox O2 Delivery O2 Flow Rate FiO2 11/25/17 21:12 64 139/103 11/25/17 20:24 96.6 64 19 139/103 98 Room Air 96.6 11/25/17 16:00 96.6 78 20 145/75 95 96.6 11/25/17 12:00 96.4 76 20 152/90 100 96.4 11/25/17 08:45 85 143/97 11/25/17 08:45 143/97 11/25/17 08:00 97.2 85 20 143/97 98 97.2 11/25/17 05:52 Room Air 11/25/17 04:00 97.3 90 19 150/99 92 97.3 11/25/17 00:00 97.3 83 18 130/82 100 Room Air 97.3 Intake and Output 11/24/17 11/25/17 19:00 07:00 Intake Total 730.0 ml Output Total 300 ml 390 ml Balance -300 ml 340.0 ml Intake Oral 60 ml IV Total 670.0 ml Output Urine Total 300 ml 390 ml Objective General Appearance: WD/WN HEENT: normocephalic, atraumatic Respiratory/Chest: chest wall non-tender, lungs clear Cardiovascular: normal peripheral pulses, normal rate Abdomen: normal bowel sounds, soft, non tender Genitourinary: normal external genitalia Extremities: no cyanosis Skin: no rash, no ulcers Current Medications Medications (Trade) Dose Ordered Sig/Don Route PRN Reason Start Time Stop Time Status Last Admin Dose Admin Carvedilol (Coreg) 6.25 mg Q12HR ORAL 11/23/17 18:00 12/23/17 17:59 11/25/17 21:12 Chlorhexidine Gluconate (Merari-Hex 2%) 1 applic DAILY@2000 TOPIC 11/22/17 20:00 12/16/17 19:59 11/25/17 21:11 Clonidine HCl (Catapres Tab) 0.1 mg Q6H PRN ORAL FOR SBP>160 11/22/17 17:00 12/18/17 16:59 11/24/17 15:43 Dextrose (Dextrose 50%) STAT PRN IV Hypoglycemia 11/22/17 17:00 12/14/17 16:59 Docusate Sodium (Colace) 100 mg TWICE A DAY ORAL 11/26/17 09:00 12/26/17 08:59 Dronabinol (Marinol) 2.5 mg BID ORAL 11/25/17 18:00 12/25/17 17:59 11/25/17 17:15 Epoetin Barak (Procrit (for non ESRD use)) 20,000 units Q48H SUBQ 11/24/17 21:00 12/24/17 20:59 11/24/17 21:55 Folic Acid (Folate) 1 mg DAILY ORAL 11/23/17 09:00 12/16/17 08:59 11/25/17 08:45 Guaifenesin (Robitussin) 100 mg EVERY 6 HOURS PRN ORAL For Cough 11/23/17 19:30 12/23/17 19:29 11/25/17 18:41 Insulin Aspart (NovoLOG) BEFORE MEALS AND HS SUBQ 11/22/17 18:00 12/15/17 17:59 11/22/17 21:48 Levetiracetam 100 ml @ 400 mls/hr Q12HR IVPB 11/22/17 21:00 12/19/17 21:59 11/25/17 21:12 Lorazepam (Ativan 2mg/ml 1ml) 1 mg Q4H PRN IV For Seizures 11/22/17 17:00 11/26/17 16:59 Losartan Potassium (Cozaar) 50 mg DAILY ORAL 11/23/17 09:00 12/15/17 08:59 11/25/17 08:45 Metformin HCl (Glucophage) 500 mg TWICE A DAY ORAL 11/22/17 18:00 12/15/17 08:59 11/25/17 17:15 Ondansetron HCl (Zofran) 4 mg Q4H PRN IVP Nausea & Vomiting 11/22/17 17:00 12/22/17 16:59 Pantoprazole (Protonix) 40 mg BID ORAL 11/23/17 18:00 12/22/17 08:59 11/25/17 17:14 Phenol/Menthol (Chloraseptic) 1 spray Q3H PRN ORAL Per rx protocol 11/25/17 20:00 12/25/17 19:59 11/25/17 21:12 Phosphorus (Phospha 250 Neutral) 500 mg THREE TIMES A DAY ORAL 11/23/17 18:00 12/23/17 17:59 11/25/17 17:15 Zolpidem Tartrate (Ambien) 5 mg HSPRN PRN ORAL Insomnia 11/24/17 00:15 12/01/17 00:14 11/24/17 21:56 Juana Watson MD Nov 25, 2017 22:19
--- NOTE | 2017-11-25 22:24 | Psych Consult Progress Note ---
Psych Consult Progress Note Consult 11/24/17 mdd anxiety increase remeron dc zoloft Vital Signs Last 24 Hour Vital Signs Date Time Temp Pulse Resp B/P (MAP) Pulse Ox O2 Delivery O2 Flow Rate FiO2 11/25/17 21:12 64 139/103 11/25/17 20:24 96.6 64 19 139/103 98 Room Air 96.6 11/25/17 16:00 96.6 78 20 145/75 95 96.6 11/25/17 12:00 96.4 76 20 152/90 100 96.4 11/25/17 08:45 85 143/97 11/25/17 08:45 143/97 11/25/17 08:00 97.2 85 20 143/97 98 97.2 11/25/17 05:52 Room Air 11/25/17 04:00 97.3 90 19 150/99 92 97.3 11/25/17 00:00 97.3 83 18 130/82 100 Room Air 97.3 Medications Current Medications Medications (Trade) Dose Ordered Sig/Don Route PRN Reason Start Time Stop Time Status Last Admin Dose Admin Carvedilol (Coreg) 6.25 mg Q12HR ORAL 11/23/17 18:00 12/23/17 17:59 11/25/17 21:12 Chlorhexidine Gluconate (Merari-Hex 2%) 1 applic DAILY@1999 TOPIC 11/22/17 20:00 12/16/17 19:59 11/25/17 21:11 Clonidine HCl (Catapres Tab) 0.1 mg Q6H PRN ORAL FOR SBP>160 11/22/17 17:00 12/18/17 16:59 11/24/17 15:43 Dextrose (Dextrose 50%) STAT PRN IV Hypoglycemia 11/22/17 17:00 12/14/17 16:59 Docusate Sodium (Colace) 100 mg TWICE A DAY ORAL 11/26/17 09:00 12/26/17 08:59 Dronabinol (Marinol) 2.5 mg BID ORAL 11/25/17 18:00 12/25/17 17:59 11/25/17 17:15 Epoetin Barak (Procrit (for non ESRD use)) 20,000 units Q48H SUBQ 11/24/17 21:00 12/24/17 20:59 11/24/17 21:55 Folic Acid (Folate) 1 mg DAILY ORAL 11/23/17 09:00 12/16/17 08:59 11/25/17 08:45 Guaifenesin (Robitussin) 100 mg EVERY 6 HOURS PRN ORAL For Cough 11/23/17 19:30 12/23/17 19:29 11/25/17 18:41 Insulin Aspart (NovoLOG) BEFORE MEALS AND HS SUBQ 11/22/17 18:00 12/15/17 17:59 11/22/17 21:48 Levetiracetam 100 ml @ 400 mls/hr Q12HR IVPB 11/22/17 21:00 12/19/17 21:59 11/25/17 21:12 Lorazepam (Ativan 2mg/ml 1ml) 1 mg Q4H PRN IV For Seizures 11/22/17 17:00 11/26/17 16:59 Losartan Potassium (Cozaar) 50 mg DAILY ORAL 11/23/17 09:00 12/15/17 08:59 11/25/17 08:45 Metformin HCl (Glucophage) 500 mg TWICE A DAY ORAL 11/22/17 18:00 12/15/17 08:59 11/25/17 17:15 Ondansetron HCl (Zofran) 4 mg Q4H PRN IVP Nausea & Vomiting 11/22/17 17:00 12/22/17 16:59 Pantoprazole (Protonix) 40 mg BID ORAL 11/23/17 18:00 12/22/17 08:59 11/25/17 17:14 Phenol/Menthol (Chloraseptic) 1 spray Q3H PRN ORAL Per rx protocol 11/25/17 20:00 12/25/17 19:59 11/25/17 21:12 Phosphorus (Phospha 250 Neutral) 500 mg THREE TIMES A DAY ORAL 11/23/17 18:00 12/23/17 17:59 11/25/17 17:15 Zolpidem Tartrate (Ambien) 5 mg HSPRN PRN ORAL Insomnia 11/24/17 00:15 12/01/17 00:14 11/24/17 21:56 Problems: Tani Kitchen M.D. Nov 25, 2017 22:24
--- NOTE | 2017-11-25 22:24 | General Progress Note ---
Assessment/Plan Assessment/Plan mdd anxiety increase radha milner zoloft Subjective Date patient seen: Nov 25, 2017 Neurologic/Psychiatric: Reports: anxiety, depressed, emotional problems Allergies: Coded Allergies: LATEX (Unverified Allergy, Mild, Rash, 09/03/14) QUININE (Unverified Allergy, Unknown, Rash Hives, 05/23/15) Quinine Sulfate Objective Last 24 Hour Vital Signs Date Time Temp Pulse Resp B/P (MAP) Pulse Ox O2 Delivery O2 Flow Rate FiO2 11/25/17 21:12 64 139/103 11/25/17 20:24 96.6 64 19 139/103 98 Room Air 96.6 11/25/17 16:00 96.6 78 20 145/75 95 96.6 11/25/17 12:00 96.4 76 20 152/90 100 96.4 11/25/17 08:45 85 143/97 11/25/17 08:45 143/97 11/25/17 08:00 97.2 85 20 143/97 98 97.2 11/25/17 05:52 Room Air 11/25/17 04:00 97.3 90 19 150/99 92 97.3 11/25/17 00:00 97.3 83 18 130/82 100 Room Air 97.3 Intake and Output 11/24/17 11/25/17 19:00 07:00 Intake Total 730.0 ml Output Total 300 ml 390 ml Balance -300 ml 340.0 ml Intake Oral 60 ml IV Total 670.0 ml Output Urine Total 300 ml 390 ml Height (Feet): 5 Height (Inches): 3.00 Weight (Pounds): 120 Tani Kitchen M.D. Nov 25, 2017 22:23
--- NOTE | 2017-11-25 23:09 | General Progress Note ---
Assessment/Plan Assessment/Plan 1. Anemia due to iron deficiency. The patient is status post EGD showed solitary ulcer. --> Ongoing iron for 5 days. The patient continued to have iron deficiency. --> The patient is Roman Catholic and is refusing blood products even though there is increased morbidity, mortality in refusing blood products. --> Continue to monitor. Again, continue to recommend blood transfusions if hemoglobin less than 7. --> Hemoglobin levels have been below goal levels 2. Nausea, vomiting, and diarrhea. --> Closely monitor. Zofran has been administered. --> Improved. On Colace --> Poor PO noted. 3. Anemia of chronic disease. --> Continue the patient on Epogen. 4. Colitis. --> She is on broad-spectrum antibiotics. --> Improving. 5. Roman Catholic, refusing blood products. 6. Diarrhea. Recommend the patient to take antibiotics as needed. Check for Clostridium difficile. --> Start colace Subjective Date patient seen: Nov 25, 2017 Constitutional: Denies: no symptoms, chills, diaphoresis, fever, malaise, weakness, other HEENT: Denies: no symptoms, eye pain, blurred vision, tearing, double vision, ear pain, ear discharge, nose pain, nose congestion, throat pain, throat swelling, mouth pain, mouth swelling, other Cardiovascular: Denies: no symptoms, chest pain, edema, irregular heart rate, lightheadedness, palpitations, syncope, other Respiratory: Denies: no symptoms, cough, orthopnea, shortness of breath, SOB with excertion, SOB at rest, sputum, stridor, wheezing, other Gastrointestinal/Abdominal: Denies: no symptoms, abdomen distended, abdominal pain, black stools, tarry stools, blood in stool, constipated, diarrhea, difficulty swallowing, nausea, poor appetite, poor fluid intake, rectal bleeding , vomiting, other Genitourinary: Denies: no symptoms, burning, discharge, frequency, flank pain, hematuria, incontinence, pain, urgency, other Neurologic/Psychiatric: Denies: no symptoms, anxiety, depressed, emotional problems, headache, numbness, paresthesia, pre-existing deficit, seizure, tingling, tremors, weakness, other Hematologic/Lymphatic: Reports: anemia Allergies: Coded Allergies: LATEX (Unverified Allergy, Mild, Rash, 09/03/14) QUININE (Unverified Allergy, Unknown, Rash Hives, 05/23/15) Quinine Sulfate Subjective Poor PO. Refuses blood. No new major events. Objective Last 24 Hour Vital Signs Date Time Temp Pulse Resp B/P (MAP) Pulse Ox O2 Delivery O2 Flow Rate FiO2 11/25/17 21:12 64 139/103 11/25/17 20:24 96.6 64 19 139/103 98 Room Air 96.6 11/25/17 16:00 96.6 78 20 145/75 95 96.6 11/25/17 12:00 96.4 76 20 152/90 100 96.4 11/25/17 08:45 85 143/97 11/25/17 08:45 143/97 11/25/17 08:00 97.2 85 20 143/97 98 97.2 11/25/17 05:52 Room Air 11/25/17 04:00 97.3 90 19 150/99 92 97.3 11/25/17 00:00 97.3 83 18 130/82 100 Room Air 97.3 Intake and Output 11/24/17 11/25/17 19:00 07:00 Intake Total 730.0 ml Output Total 300 ml 390 ml Balance -300 ml 340.0 ml Intake Oral 60 ml IV Total 670.0 ml Output Urine Total 300 ml 390 ml Height (Feet): 5 Height (Inches): 3.00 Weight (Pounds): 120 General Appearance: lethargic Respiratory/Chest: decreased breath sounds Abdomen: soft Dg Fairbanks MD Nov 25, 2017 23:09
[2017-11-25] MEDS: Zolpidem 5mg tab ORAL PRN (23:42)
[2017-11-26] VITALS (8 sets, daily range): BP systolic 138–165; BP diastolic 70–97
[2017-11-26] MEDS: NovoLOG Insulin Flexpen SUBQ SCH ×4 (06:06→20:30)
[2017-11-26] MEDS: Phospha 250 Neutral tab ORAL SCH ×5 (09:00→17:08)
[2017-11-26] MEDS: metFORMIN 500mg tab ORAL SCH ×3 (09:00→17:08)
[2017-11-26] MEDS: Docusate 100mg/10ml Liq ORAL SCH ×2 (09:25→17:08)
[2017-11-26] MEDS: levETIRAcetam 500mg/NS100ml 100 ML IVPB SCH ×2 (09:25→21:07)
[2017-11-26] MEDS: Dronabinol 2.5mg Cap ORAL SCH ×2 (09:26→17:08)
[2017-11-26] MEDS: Losartan 50mg tab ORAL SCH (09:27)
[2017-11-26] MEDS: Carvedilol 6.25mg Tab ORAL SCH ×2 (09:27→21:08)
[2017-11-26] MEDS ORDERED: Potassium Phosphate 30 MM in NS 275 ML IV ONE (11:00)
--- NOTE | 2017-11-26 11:25 | GI Progress Note ---
Assessment/Plan Problems: (1) Nausea, vomiting, and diarrhea ICD Codes: R11.2 - Nausea with vomiting, unspecified; R19.7 - Diarrhea, unspecified SNOMED: 1784070 (2) Pacemaker ICD Codes: Z95.0 - Pacemaker SNOMED: 239768480 (3) Patient is Alevism ICD Codes: Z78.9 - Other specified health status SNOMED: 50689995 (4) Anemia ICD Codes: D64.9 - Anemia, unspecified SNOMED: 403706915 (5) colitis (6) Severe anemia ICD Codes: D64.9 - Anemia, unspecified SNOMED: 264076595 Status: stable Status Narrative Discussed with Dr. Diaz. Assessment/Plan home medication reconciliation noted >> patient is on Plavix but none given since inpatient admission >> to be resumed by primary/cardio OB stool positive, second sample is negative S/P EGD >> duodenal ulcer >> possible source of bleed, second OB stool now negative >> fu H. Pylori serology trend H&H, patient is rastafarian fu path fu H.pylori serology poor po intake, will need family meeting for further management plans dc lomotil add colace Subjective Subjective limited Objective Last 24 Hour Vital Signs Date Time Temp Pulse Resp B/P (MAP) Pulse Ox O2 Delivery O2 Flow Rate FiO2 11/26/17 09:27 101 138/82 11/26/17 09:27 138/82 11/26/17 08:00 97.1 101 20 138/82 100 97.1 11/26/17 04:19 97.9 96 20 153/84 98 Room Air 97.9 11/26/17 01:54 Room Air 11/26/17 00:00 97.4 93 18 151/93 99 97.4 11/25/17 21:12 64 139/103 11/25/17 20:24 96.6 64 19 139/103 98 Room Air 96.6 11/25/17 16:00 96.6 78 20 145/75 95 96.6 11/25/17 12:00 96.4 76 20 152/90 100 96.4 Intake and Output 11/25/17 11/26/17 19:00 07:00 Intake Total 240 ml 100 ml Output Total 2 ml 300 ml Balance 238 ml -200 ml Intake Oral 240 ml IV Total 100 ml Output Urine Total 2 ml 300 ml Height (Feet): 5 Height (Inches): 3.00 Weight (Pounds): 120 General Appearance: WD/WN, no apparent distress, alert Cardiovascular: normal rate Respiratory/Chest: normal breath sounds, no respiratory distress Abdominal Exam: normal bowel sounds, non tender, soft, GT site - c/d/i Extremities: non-tender Jelly Lang N.P. Nov 26, 2017 11:25
--- NOTE | 2017-11-26 12:03 | Internal Med Progress Note ---
Subjective Date of Service: Nov 26, 2017 Physician Name Martinez,Delfin Attending Physician Lobito Jones MD Current Medications Medications (Trade) Dose Ordered Sig/Don Route PRN Reason Start Time Stop Time Status Last Admin Dose Admin Carvedilol (Coreg) 6.25 mg Q12HR ORAL 11/23/17 18:00 12/23/17 17:59 11/26/17 09:27 Chlorhexidine Gluconate (Merari-Hex 2%) 1 applic DAILY@2000 TOPIC 11/22/17 20:00 12/16/17 19:59 11/25/17 21:11 Clonidine HCl (Catapres Tab) 0.1 mg Q6H PRN ORAL FOR SBP>160 11/22/17 17:00 12/18/17 16:59 11/24/17 15:43 Dextrose (Dextrose 50%) STAT PRN IV Hypoglycemia 11/22/17 17:00 12/14/17 16:59 11/26/17 05:57 Docusate Sodium (Colace) 100 mg TWICE A DAY ORAL 11/26/17 09:00 12/26/17 08:59 11/26/17 09:25 Dronabinol (Marinol) 2.5 mg BID ORAL 11/25/17 18:00 12/25/17 17:59 11/26/17 09:26 Epoetin Barak (Procrit (for non ESRD use)) 20,000 units Q48H SUBQ 11/24/17 21:00 12/24/17 20:59 11/24/17 21:55 Folic Acid (Folate) 1 mg DAILY ORAL 11/23/17 09:00 12/16/17 08:59 11/26/17 09:25 Guaifenesin (Robitussin) 100 mg EVERY 6 HOURS PRN ORAL For Cough 11/23/17 19:30 12/23/17 19:29 11/25/17 18:41 Insulin Aspart (NovoLOG) BEFORE MEALS AND HS SUBQ 11/22/17 18:00 12/15/17 17:59 11/22/17 21:48 Levetiracetam 100 ml @ 400 mls/hr Q12HR IVPB 11/22/17 21:00 12/19/17 21:59 11/26/17 09:25 Lorazepam (Ativan 2mg/ml 1ml) 1 mg Q4H PRN IV For Seizures 11/22/17 17:00 11/26/17 16:59 Losartan Potassium (Cozaar) 50 mg DAILY ORAL 11/23/17 09:00 12/15/17 08:59 11/26/17 09:27 Metformin HCl (Glucophage) 500 mg TWICE A DAY ORAL 11/22/17 18:00 12/15/17 08:59 11/26/17 09:26 Ondansetron HCl (Zofran) 4 mg Q4H PRN IVP Nausea & Vomiting 11/22/17 17:00 12/22/17 16:59 Pantoprazole (Protonix) 40 mg BID ORAL 11/23/17 18:00 12/22/17 08:59 11/26/17 09:27 Phenol/Menthol (Chloraseptic) 1 spray Q3H PRN ORAL Per rx protocol 11/25/17 20:00 12/25/17 19:59 11/25/17 21:12 Phosphorus (Phospha 250 Neutral) 500 mg THREE TIMES A DAY ORAL 11/23/17 18:00 12/23/17 17:59 11/26/17 09:26 Potassium Phosphate 30 mm/ Sodium Chloride 285 ml @ 47.5 mls/hr ONCE ONCE IV 11/26/17 11:00 11/26/17 16:59 Zolpidem Tartrate (Ambien) 5 mg HSPRN PRN ORAL Insomnia 11/24/17 00:15 12/01/17 00:14 11/25/17 23:42 Allergies: Coded Allergies: LATEX (Unverified Allergy, Mild, Rash, 09/03/14) QUININE (Unverified Allergy, Unknown, Rash Hives, 05/23/15) Quinine Sulfate ROS Limited/Unobtainable: No Constitutional: Reports: no symptoms HEENT: Reports: no symptoms Cardiovascular: Reports: no symptoms Respiratory: Reports: no symptoms Gastrointestinal/Abdominal: Reports: no symptoms Genitourinary: Reports: no symptoms Neurologic/Psychiatric: Reports: no symptoms Subjective 76 YO F admitted with diarrhea and dehydration. S/P Endoscopy 11/21/17. Decreased appetite. Cover for Int Madan-Dr Jones Objective Last Vital Signs Date Time Temp Pulse Resp B/P (MAP) Pulse Ox O2 Delivery O2 Flow Rate FiO2 11/26/17 09:27 101 138/82 11/26/17 08:00 97.1 20 100 97.1 11/26/17 04:19 Room Air 11/22/17 04:00 2.0 None new. No labs except those ordered by Dr Watson Intake and Output 11/25/17 11/26/17 19:00 07:00 Intake Total 240 ml 100 ml Output Total 2 ml 300 ml Balance 238 ml -200 ml Intake Oral 240 ml IV Total 100 ml Output Urine Total 2 ml 300 ml Objective General Appearance: mild distress, thin EENT: PERRL/EOMI, normal ENT inspection Neck: non-tender, normal alignment, supple Cardiovascular: normal peripheral pulses, normal rate, regular rhythm, no gallop/murmur, no JVD Respiratory/Chest: chest wall non-tender, lungs clear, normal breath sounds, no respiratory distress, no accessory muscle use Abdomen: normal bowel sounds, no mass, abnormal bowel sounds, decreased bowel sounds, tender Extremities: normal range of motion, non-tender Neurologic: 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 (3) Dehydration (4) Abdominal pain (5) CVA (cerebrovascular accident) (6) Left hemiparesis (7) Diabetes mellitus Assessment & Plan: Continue metformin (8) Hypertension Assessment & Plan: continue losartan (9) Anemia Assessment & Plan: Severe. Christian-refused transfruion. See hematology note. (10) Patient is Christian (11) Seizure disorder Assessment & Plan: New onset; Continue keppra per neurology (12) Duodenal ulcer Assessment & Plan: Continue protonix per GI Status: not improved DELFIN MARTINEZ Nov 26, 2017 12:03
--- NOTE | 2017-11-26 12:30 | Progress Note ---
DATE: 11/26/2017 SUBJECTIVE: The patient is calm and cooperative, was in bed, still has episodes of anxiety. MENTAL STATUS EXAMINATION: The patient is awake, alert, and oriented times self and place. Mood is anxious and dysphoric. Affect is constricted. Congruent with mood. Thought process is concrete. Thought content, no suicidal or homicidal ideations. ASSESSMENT: Anxiety disorder. PLAN: 1. The patient will be continued on Remeron, we will increase the dose. 2. Provide the patient with reality orientation and supportive therapy. 3. We will continue to follow and readjust the medications. Tani Kitchen M.D. DR: SAYDA JOB#: [id number] CC:
[2017-11-26] MEDS: Dyna-Hex 2% Top Sol 2oz TOPIC SCH (20:00)
[2017-11-26] MEDS: Epogen (for non ESRD use) SUBQ SCH (21:09)
--- NOTE | 2017-11-26 22:08 | Nephrology Progress Note ---
Assessment/Plan Assessment 1. Hypernatremia. 2. Hypokalemia. 3. Non-anion gap acidosis, most likely as a result of diarrhea. 4. Hypocalcemia. 5. Hypomagnesemia. 6. Hypophosphatemia. Plan check stat lab monitoring renal function avoid NSAID nutritional support replace electrolyte as need it Subjective HEENT: Reports: no symptoms Genitourinary: Reports: no symptoms Neurologic/Psychiatric: Reports: no symptoms Subjective alert and awake no complaints Objective Objective Last 24 Hour Vital Signs Date Time Temp Pulse Resp B/P (MAP) Pulse Ox O2 Delivery O2 Flow Rate FiO2 11/26/17 21:08 73 142/70 11/26/17 20:35 97.2 70 20 142/70 98 Room Air 97.2 11/26/17 17:00 150/86 11/26/17 16:00 97.1 94 19 159/97 100 97.1 11/26/17 13:00 152/88 11/26/17 12:00 97.3 70 19 165/90 100 97.3 11/26/17 09:27 101 138/82 11/26/17 09:27 138/82 11/26/17 08:00 97.1 101 20 138/82 100 97.1 11/26/17 04:19 97.9 96 20 153/84 98 Room Air 97.9 11/26/17 01:54 Room Air 11/26/17 00:00 97.4 93 18 151/93 99 97.4 Intake and Output 11/25/17 11/26/17 19:00 07:00 Intake Total 240 ml 100 ml Output Total 2 ml 300 ml Balance 238 ml -200 ml Intake Oral 240 ml IV Total 100 ml Output Urine Total 2 ml 300 ml Height (Feet): 5 Height (Inches): 3.00 Weight (Pounds): 120 Objective HEAD AND NECK: No JVP. No LAD. No thyromegaly. Extraocular movement intact. Pupils are reactive to light and accommodation. LUNGS: Clear to auscultation. CARDIAC: Regular rate and rhythm. S1 and S2. No murmur. No rub. ABDOMEN: Soft, nontender, and nondistended. EXTREMITIES: Trace edema. No clubbing. No cyanosis. NEUROLOGIC: Cranial nerves II to XII within normal limits. Upper and lower extremities are grossly intact. SASKHI FINN Nov 26, 2017 22:08
--- NOTE | 2017-11-26 22:40 | Pulmonology Progress Note ---
Assessment/Plan Problems: (1) Anemia (2) colitis (3) Asthma (4) CVA (cerebrovascular accident) (5) Diabetes mellitus Assessment/Plan slightly better just cbc in am eating better on Epogen, Venofer, vitamin check h/h sliding saleem Subjective ROS Limited/Unobtainable: No Constitutional: Reports: no symptoms HEENT: Repors: no symptoms Allergies: Coded Allergies: LATEX (Unverified Allergy, Mild, Rash, 09/03/14) QUININE (Unverified Allergy, Unknown, Rash Hives, 05/23/15) Quinine Sulfate Objective Last 24 Hour Vital Signs Date Time Temp Pulse Resp B/P (MAP) Pulse Ox O2 Delivery O2 Flow Rate FiO2 11/26/17 21:08 73 142/70 11/26/17 20:35 97.2 70 20 142/70 98 Room Air 97.2 11/26/17 17:00 150/86 11/26/17 16:00 97.1 94 19 159/97 100 97.1 11/26/17 13:00 152/88 11/26/17 12:00 97.3 70 19 165/90 100 97.3 11/26/17 09:27 101 138/82 11/26/17 09:27 138/82 11/26/17 08:00 97.1 101 20 138/82 100 97.1 11/26/17 04:19 97.9 96 20 153/84 98 Room Air 97.9 11/26/17 01:54 Room Air 11/26/17 00:00 97.4 93 18 151/93 99 97.4 Intake and Output 11/25/17 11/26/17 19:00 07:00 Intake Total 240 ml 100 ml Output Total 2 ml 300 ml Balance 238 ml -200 ml Intake Oral 240 ml IV Total 100 ml Output Urine Total 2 ml 300 ml Objective General Appearance: WD/WN HEENT: normocephalic, atraumatic Respiratory/Chest: chest wall non-tender, lungs clear Cardiovascular: normal peripheral pulses, normal rate Abdomen: normal bowel sounds, soft, non tender Genitourinary: normal external genitalia Extremities: no cyanosis Skin: no rash, no ulcers Current Medications Medications (Trade) Dose Ordered Sig/Don Route PRN Reason Start Time Stop Time Status Last Admin Dose Admin Carvedilol (Coreg) 6.25 mg Q12HR ORAL 11/23/17 18:00 12/23/17 17:59 11/26/17 21:08 Chlorhexidine Gluconate (Merari-Hex 2%) 1 applic DAILY@2000 TOPIC 11/22/17 20:00 12/16/17 19:59 11/26/17 20:00 Clonidine HCl (Catapres Tab) 0.1 mg Q6H PRN ORAL FOR SBP>160 11/22/17 17:00 12/18/17 16:59 11/24/17 15:43 Dextrose (Dextrose 50%) STAT PRN IV Hypoglycemia 11/22/17 17:00 12/14/17 16:59 11/26/17 20:25 Docusate Sodium (Colace) 100 mg TWICE A DAY ORAL 11/26/17 09:00 12/26/17 08:59 11/26/17 17:08 Dronabinol (Marinol) 2.5 mg BID ORAL 11/25/17 18:00 12/25/17 17:59 11/26/17 17:08 Epoetin Barak (Procrit (for non ESRD use)) 20,000 units Q48H SUBQ 11/24/17 21:00 12/24/17 20:59 11/26/17 21:09 Folic Acid (Folate) 1 mg DAILY ORAL 11/23/17 09:00 12/16/17 08:59 11/26/17 09:25 Guaifenesin (Robitussin) 100 mg EVERY 6 HOURS PRN ORAL For Cough 11/23/17 19:30 12/23/17 19:29 11/25/17 18:41 Insulin Aspart (NovoLOG) BEFORE MEALS AND HS SUBQ 11/22/17 18:00 12/15/17 17:59 11/22/17 21:48 Levetiracetam 100 ml @ 400 mls/hr Q12HR IVPB 11/22/17 21:00 12/19/17 21:59 11/26/17 21:07 Losartan Potassium (Cozaar) 50 mg DAILY ORAL 11/23/17 09:00 12/15/17 08:59 11/26/17 09:27 Metformin HCl (Glucophage) 500 mg TWICE A DAY ORAL 11/22/17 18:00 12/15/17 08:59 11/26/17 17:08 Ondansetron HCl (Zofran) 4 mg Q4H PRN IVP Nausea & Vomiting 11/22/17 17:00 12/22/17 16:59 Pantoprazole (Protonix) 40 mg BID ORAL 11/23/17 18:00 12/22/17 08:59 11/26/17 17:08 Phenol/Menthol (Chloraseptic) 1 spray Q3H PRN ORAL Per rx protocol 11/25/17 20:00 12/25/17 19:59 11/25/17 21:12 Phosphorus (Phospha 250 Neutral) 500 mg THREE TIMES A DAY ORAL 11/23/17 18:00 12/23/17 17:59 11/26/17 17:08 Zolpidem Tartrate (Ambien) 5 mg HSPRN PRN ORAL Insomnia 11/24/17 00:15 12/01/17 00:14 11/25/17 23:42 Juana Watson MD Nov 26, 2017 22:40
[2017-11-27] VITALS (7 sets, daily range): BP systolic 125–158; BP diastolic 63–87
--- NOTE | 2017-11-27 | General Progress Note ---
Assessment/Plan Assessment/Plan 1. Anemia due to iron deficiency. The patient is status post EGD showed solitary ulcer. --> Ongoing iron for 5 days. The patient continued to have iron deficiency. --> The patient is Orthodox and is refusing blood products even though there is increased morbidity, mortality in refusing blood products. --> Continue to monitor. Again, continue to recommend blood transfusions if hemoglobin less than 7. --> Hemoglobin levels remain low. 2. Nausea, vomiting, and diarrhea. --> Closely monitor. Zofran has been administered. --> Improved. On Colace --> Poor PO noted. 3. Anemia of chronic disease. --> Continue the patient on Epogen. 4. Colitis. --> She is on broad-spectrum antibiotics. --> Improving. 5. Orthodox, refusing blood products. 6. Diarrhea. Recommend the patient to take antibiotics as needed. Check for Clostridium difficile. --> Start colace Subjective Date patient seen: Nov 26, 2017 Constitutional: Denies: no symptoms, chills, diaphoresis, fever, malaise, weakness, other HEENT: Denies: no symptoms, eye pain, blurred vision, tearing, double vision, ear pain, ear discharge, nose pain, nose congestion, throat pain, throat swelling, mouth pain, mouth swelling, other Cardiovascular: Denies: no symptoms, chest pain, edema, irregular heart rate, lightheadedness, palpitations, syncope, other Respiratory: Denies: no symptoms, cough, orthopnea, shortness of breath, SOB with excertion, SOB at rest, sputum, stridor, wheezing, other Gastrointestinal/Abdominal: Denies: no symptoms, abdomen distended, abdominal pain, black stools, tarry stools, blood in stool, constipated, diarrhea, difficulty swallowing, nausea, poor appetite, poor fluid intake, rectal bleeding , vomiting, other Genitourinary: Denies: no symptoms, burning, discharge, frequency, flank pain, hematuria, incontinence, pain, urgency, other Hematologic/Lymphatic: Reports: anemia Allergies: Coded Allergies: LATEX (Unverified Allergy, Mild, Rash, 09/03/14) QUININE (Unverified Allergy, Unknown, Rash Hives, 05/23/15) Quinine Sulfate Subjective Calm. No fever or chills. A little anxious Objective Last 24 Hour Vital Signs Date Time Temp Pulse Resp B/P (MAP) Pulse Ox O2 Delivery O2 Flow Rate FiO2 11/26/17 21:08 73 142/70 11/26/17 20:35 97.2 70 20 142/70 98 Room Air 97.2 11/26/17 17:00 150/86 11/26/17 16:00 97.1 94 19 159/97 100 97.1 11/26/17 13:00 152/88 11/26/17 12:00 97.3 70 19 165/90 100 97.3 11/26/17 09:27 101 138/82 11/26/17 09:27 138/82 11/26/17 08:00 97.1 101 20 138/82 100 97.1 11/26/17 04:19 97.9 96 20 153/84 98 Room Air 97.9 11/26/17 01:54 Room Air 11/26/17 00:00 97.4 93 18 151/93 99 97.4 Intake and Output 11/25/17 11/26/17 19:00 07:00 Intake Total 240 ml 100 ml Output Total 2 ml 300 ml Balance 238 ml -200 ml Intake Oral 240 ml IV Total 100 ml Output Urine Total 2 ml 300 ml Height (Feet): 5 Height (Inches): 3.00 Weight (Pounds): 120 Respiratory/Chest: decreased breath sounds Abdomen: soft Dg Fairbanks MD Nov 27, 2017 00:00
[2017-11-27] MEDS: NovoLOG Insulin Flexpen SUBQ SCH ×4 (05:52→20:28)
[2017-11-27 07:38] LABS: HEMATOCRIT 21.8 % (37.0-47.0); MEAN CORPUSCULAR VOLUME 80 FL (80-99); PLATELET COUNT 281 K/UL (150-450); RED BLOOD COUNT 2.72 M/UL (4.20-5.40); RED CELL DISTRIBUTION WIDTH 24.7 % (11.6-14.8)
[2017-11-27 07:52] LABS: HEMOGLOBIN 6.8 G/DL (12.0-16.0)
[2017-11-27] MEDS: Losartan 50mg tab ORAL SCH (08:29)
[2017-11-27] MEDS: levETIRAcetam 500mg/NS100ml 100 ML IVPB SCH ×2 (08:29→20:28)
[2017-11-27] MEDS: Docusate 100mg/10ml Liq ORAL SCH ×2 (08:29→17:40)
[2017-11-27] MEDS: Carvedilol 6.25mg Tab ORAL SCH ×2 (08:30→20:28)
[2017-11-27] MEDS: metFORMIN 500mg tab ORAL SCH ×2 (08:30→17:18)
[2017-11-27] MEDS: Dronabinol 2.5mg Cap ORAL SCH ×2 (08:30→17:40)
[2017-11-27] MEDS: Phospha 250 Neutral tab ORAL SCH ×3 (08:31→17:40)
--- NOTE | 2017-11-27 14:24 | GI Progress Note ---
Assessment/Plan Problems: (1) Nausea, vomiting, and diarrhea ICD Codes: R11.2 - Nausea with vomiting, unspecified; R19.7 - Diarrhea, unspecified SNOMED: 8137397 (2) Pacemaker ICD Codes: Z95.0 - Pacemaker SNOMED: 739367857 (3) Patient is Sabianist ICD Codes: Z78.9 - Other specified health status SNOMED: 54357924 (4) Anemia ICD Codes: D64.9 - Anemia, unspecified SNOMED: 742984411 (5) colitis (6) Severe anemia ICD Codes: D64.9 - Anemia, unspecified SNOMED: 091979219 Status: stable, unchanged Status Narrative Discussed with Dr. Diaz. Assessment/Plan OB stool positive, second sample is negative S/P EGD >> duodenal ulcer >> possible source of bleed, second OB stool now negative >> fu H. Pylori serology poor po intake, will need family meeting for further management plans trend H&H, patient is mormon fu H.pylori serology dc lomotil bowel regime plavix per primary fu labs Subjective Subjective limited Objective Last 24 Hour Vital Signs Date Time Temp Pulse Resp B/P (MAP) Pulse Ox O2 Delivery O2 Flow Rate FiO2 11/27/17 12:00 97.2 78 16 156/72 94 97.2 11/27/17 08:30 75 129/64 11/27/17 08:29 129/64 11/27/17 08:00 97.5 67 16 158/75 94 97.5 11/27/17 05:03 97.2 75 20 129/64 98 Room Air 97.2 11/27/17 04:00 97.2 68 20 129/64 100 Room Air 97.2 11/27/17 01:27 97.3 11/27/17 00:44 97.3 88 20 131/63 93 Room Air 97.3 11/26/17 21:08 73 142/70 11/26/17 20:35 97.2 70 20 142/70 98 Room Air 97.2 11/26/17 17:00 150/86 11/26/17 16:00 97.1 94 19 159/97 100 97.1 Intake and Output 11/26/17 11/27/17 19:00 07:00 Intake Total 777.5 ml Balance 777.5 ml Intake Oral 240 ml IV Total 537.5 ml Laboratory Tests Test 11/27/17 05:30 White Blood Count 6.0 K/UL (4.8-10.8) Red Blood Count 2.72 M/UL (4.20-5.40) L Hemoglobin 6.8 G/DL (12.0-16.0) *L Hematocrit 21.8 % (37.0-47.0) L Mean Corpuscular Volume 80 FL (80-99) Mean Corpuscular Hemoglobin 24.8 PG (27.0-31.0) L Mean Corpuscular Hemoglobin Concent 31.0 G/DL (32.0-36.0) L Red Cell Distribution Width 24.7 % (11.6-14.8) H Platelet Count 281 K/UL (150-450) Mean Platelet Volume 5.6 FL (6.5-10.1) L Neutrophils (%) (Auto) % (45.0-75.0) Lymphocytes (%) (Auto) % (20.0-45.0) Monocytes (%) (Auto) % (1.0-10.0) Eosinophils (%) (Auto) % (0.0-3.0) Basophils (%) (Auto) % (0.0-2.0) Differential Total Cells Counted 100 Neutrophils % (Manual) 69 % (45-75) Lymphocytes % (Manual) 15 % (20-45) L Monocytes % (Manual) 13 % (1-10) H Eosinophils % (Manual) 3 % (0-3) Basophils % (Manual) 0 % (0-2) Band Neutrophils 0 % (0-8) Platelet Estimate Adequate Platelet Morphology Normal Hypochromasia 2+ Anisocytosis 2+ Height (Feet): 5 Height (Inches): 3.00 Weight (Pounds): 120 General Appearance: alert, thin Cardiovascular: normal rate Respiratory/Chest: normal breath sounds Abdominal Exam: soft Jelly Lang NJessica Nov 27, 2017 14:24
--- NOTE | 2017-11-27 15:26 | Nephrology Progress Note ---
Assessment/Plan Assessment 1. Hypernatremia. 2. Hypokalemia. 3. Non-anion gap acidosis, most likely as a result of diarrhea. 4. Hypocalcemia. 5. Hypomagnesemia. 6. Hypophosphatemia. Plan check stat lab (has been ordered for past few days monitoring renal function avoid NSAID nutritional support replace electrolyte as need it Subjective Constitutional: Reports: no symptoms HEENT: Reports: no symptoms Genitourinary: Reports: no symptoms Neurologic/Psychiatric: Reports: no symptoms Subjective alert and awake no complaints Objective Objective Last 24 Hour Vital Signs Date Time Temp Pulse Resp B/P (MAP) Pulse Ox O2 Delivery O2 Flow Rate FiO2 11/27/17 12:00 97.2 78 16 156/72 94 97.2 11/27/17 08:30 75 129/64 11/27/17 08:29 129/64 11/27/17 08:00 97.5 67 16 158/75 94 97.5 11/27/17 05:03 97.2 75 20 129/64 98 Room Air 97.2 11/27/17 04:00 97.2 68 20 129/64 100 Room Air 97.2 11/27/17 01:27 97.3 11/27/17 00:44 97.3 88 20 131/63 93 Room Air 97.3 11/26/17 21:08 73 142/70 11/26/17 20:35 97.2 70 20 142/70 98 Room Air 97.2 11/26/17 17:00 150/86 11/26/17 16:00 97.1 94 19 159/97 100 97.1 Intake and Output 11/26/17 11/27/17 19:00 07:00 Intake Total 777.5 ml Balance 777.5 ml Intake Oral 240 ml IV Total 537.5 ml Laboratory Tests 11/27/17 05:30: White Blood Count 6.0, Red Blood Count 2.72L, Hemoglobin 6.8*L, Hematocrit 21.8L , Mean Corpuscular Volume 80, Mean Corpuscular Hemoglobin 24.8L, Mean Corpuscular Hemoglobin Concent 31.0L, Red Cell Distribution Width 24.7H, Platelet Count 281, Mean Platelet Volume 5.6L, Neutrophils (%) (Auto) , Lymphocytes (%) (Auto) , Monocytes (%) (Auto) , Eosinophils (%) (Auto) , Basophils (%) (Auto) , Differential Total Cells Counted 100, Neutrophils % ( Manual) 69, Lymphocytes % (Manual) 15L, Monocytes % (Manual) 13H, Eosinophils % (Manual) 3, Basophils % (Manual) 0, Band Neutrophils 0, Platelet Estimate Adequate, Platelet Morphology Normal, Hypochromasia 2+, Anisocytosis 2+ Height (Feet): 5 Height (Inches): 3.00 Weight (Pounds): 120 Objective HEAD AND NECK: No JVP. No LAD. No thyromegaly. Extraocular movement intact. Pupils are reactive to light and accommodation. LUNGS: Clear to auscultation. CARDIAC: Regular rate and rhythm. S1 and S2. No murmur. No rub. ABDOMEN: Soft, nontender, and nondistended. EXTREMITIES: Trace edema. No clubbing. No cyanosis. NEUROLOGIC: Cranial nerves II to XII within normal limits. Upper and lower extremities are grossly intact. SAKSHI FINN Nov 27, 2017 15:26
[2017-11-27 17:02] LABS: ANION GAP 9 mmol/L (5-15); BLOOD UREA NITROGEN 4 mg/dL (7-18); CALCIUM 7.7 MG/DL (8.5-10.1); CARBON DIOXIDE 20 MMOL/L (21-32); CHLORIDE 116 MMOL/L (98-107); CREATININE 0.5 MG/DL (0.55-1.30); POTASSIUM 4.9 MMOL/L (3.5-5.1); SODIUM 145 MMOL/L (136-145)
--- NOTE | 2017-11-27 17:15 | Internal Med Progress Note ---
Subjective Date of Service: Nov 27, 2017 Physician Name Delfin Martinez Attending Physician Lobito Jones MD Current Medications Medications (Trade) Dose Ordered Sig/Don Route PRN Reason Start Time Stop Time Status Last Admin Dose Admin Acetaminophen (Tylenol) 650 mg Q6H PRN ORAL Mild Pain/Temp > 100.5 11/27/17 00:15 12/27/17 00:14 11/27/17 00:28 Carvedilol (Coreg) 6.25 mg Q12HR ORAL 11/23/17 18:00 12/23/17 17:59 11/27/17 08:30 Chlorhexidine Gluconate (Merari-Hex 2%) 1 applic DAILY@2000 TOPIC 11/22/17 20:00 12/16/17 19:59 11/26/17 20:00 Clonidine HCl (Catapres Tab) 0.1 mg Q6H PRN ORAL FOR SBP>160 11/22/17 17:00 12/18/17 16:59 11/24/17 15:43 Dextrose (Dextrose 50%) STAT PRN IV Hypoglycemia 11/22/17 17:00 12/14/17 16:59 11/27/17 11:39 Docusate Sodium (Colace) 100 mg TWICE A DAY ORAL 11/26/17 09:00 12/26/17 08:59 11/27/17 08:29 Dronabinol (Marinol) 2.5 mg BID ORAL 11/25/17 18:00 12/25/17 17:59 11/27/17 08:30 Epoetin Barak (Procrit (for non ESRD use)) 20,000 units Q48H SUBQ 11/24/17 21:00 12/24/17 20:59 11/26/17 21:09 Folic Acid (Folate) 1 mg DAILY ORAL 11/23/17 09:00 12/16/17 08:59 11/27/17 08:29 Guaifenesin (Robitussin) 100 mg EVERY 6 HOURS PRN ORAL For Cough 11/23/17 19:30 12/23/17 19:29 11/25/17 18:41 Insulin Aspart (NovoLOG) BEFORE MEALS AND HS SUBQ 11/22/17 18:00 12/15/17 17:59 11/22/17 21:48 Levetiracetam 100 ml @ 400 mls/hr Q12HR IVPB 11/22/17 21:00 12/19/17 21:59 11/27/17 08:29 Losartan Potassium (Cozaar) 50 mg DAILY ORAL 11/23/17 09:00 12/15/17 08:59 11/27/17 08:29 Metformin HCl (Glucophage) 500 mg TWICE A DAY ORAL 11/22/17 18:00 12/15/17 08:59 11/26/17 17:08 Ondansetron HCl (Zofran) 4 mg Q4H PRN IVP Nausea & Vomiting 11/22/17 17:00 12/22/17 16:59 Pantoprazole (Protonix) 40 mg BID ORAL 11/23/17 18:00 12/22/17 08:59 11/27/17 08:29 Phenol/Menthol (Chloraseptic) 1 spray Q3H PRN ORAL Per rx protocol 11/25/17 20:00 12/25/17 19:59 11/25/17 21:12 Phosphorus (Phospha 250 Neutral) 500 mg THREE TIMES A DAY ORAL 11/23/17 18:00 12/23/17 17:59 11/27/17 08:31 Zolpidem Tartrate (Ambien) 5 mg HSPRN PRN ORAL Insomnia 11/24/17 00:15 12/01/17 00:14 11/25/17 23:42 Allergies: Coded Allergies: LATEX (Unverified Allergy, Mild, Rash, 09/03/14) QUININE (Unverified Allergy, Unknown, Rash Hives, 05/23/15) Quinine Sulfate ROS Limited/Unobtainable: Yes Subjective 76 YO F admitted with diarrhea and dehydration. S/P Endoscopy 11/21/17. Decreased appetite. Cover for Int Madan-Dr Jones Objective Last Vital Signs Date Time Temp Pulse Resp B/P (MAP) Pulse Ox O2 Delivery O2 Flow Rate FiO2 11/27/17 15:54 96.3 80 19 125/75 100 96.3 11/27/17 05:03 Room Air 11/22/17 04:00 2.0 Laboratory Tests Test 11/27/17 05:30 11/27/17 16:00 White Blood Count 6.0 K/UL (4.8-10.8) Red Blood Count 2.72 M/UL (4.20-5.40) L Hemoglobin 6.8 G/DL (12.0-16.0) *L Hematocrit 21.8 % (37.0-47.0) L Mean Corpuscular Volume 80 FL (80-99) Mean Corpuscular Hemoglobin 24.8 PG (27.0-31.0) L Mean Corpuscular Hemoglobin Concent 31.0 G/DL (32.0-36.0) L Red Cell Distribution Width 24.7 % (11.6-14.8) H Platelet Count 281 K/UL (150-450) Mean Platelet Volume 5.6 FL (6.5-10.1) L Neutrophils (%) (Auto) % (45.0-75.0) Lymphocytes (%) (Auto) % (20.0-45.0) Monocytes (%) (Auto) % (1.0-10.0) Eosinophils (%) (Auto) % (0.0-3.0) Basophils (%) (Auto) % (0.0-2.0) Differential Total Cells Counted 100 Neutrophils % (Manual) 69 % (45-75) Lymphocytes % (Manual) 15 % (20-45) L Monocytes % (Manual) 13 % (1-10) H Eosinophils % (Manual) 3 % (0-3) Basophils % (Manual) 0 % (0-2) Band Neutrophils 0 % (0-8) Platelet Estimate Adequate Platelet Morphology Normal Hypochromasia 2+ Anisocytosis 2+ Sodium Level 145 MMOL/L (136-145) Potassium Level 4.9 MMOL/L (3.5-5.1) Chloride Level 116 MMOL/L (98-107) H Carbon Dioxide Level 20 MMOL/L (21-32) L Anion Gap 9 mmol/L (5-15) Blood Urea Nitrogen 4 mg/dL (7-18) L Creatinine 0.5 MG/DL (0.55-1.30) L Estimat Glomerular Filtration Rate mL/min (>60) Glucose Level 100 MG/DL (74-106) Calcium Level 7.7 MG/DL (8.5-10.1) L Intake and Output 11/26/17 11/27/17 19:00 07:00 Intake Total 777.5 ml Balance 777.5 ml Intake Oral 240 ml IV Total 537.5 ml Objective General Appearance: mild distress, thin EENT: PERRL/EOMI, normal ENT inspection Neck: non-tender, normal alignment, supple Cardiovascular: normal peripheral pulses, normal rate, regular rhythm, no gallop/murmur, no JVD Respiratory/Chest: chest wall non-tender, lungs clear, normal breath sounds, no respiratory distress, no accessory muscle use Abdomen: normal bowel sounds, no mass, abnormal bowel sounds, decreased bowel sounds, tender Extremities: normal range of motion, non-tender Neurologic: paper counter II-XII grossly normal, no motor/sensory deficits Skin: normal pigmentation, warm/dry Assessment/Plan Problem List: (1) Diarrhea Assessment & Plan: Colonoscopy cancelled due to hypokalemia and lack of prep (2) Gastritis Assessment & Plan: S/P Endoscopy 11/21/17-see GI note. (3) Dehydration (4) Abdominal pain (5) CVA (cerebrovascular accident) (6) Left hemiparesis (7) Diabetes mellitus Assessment & Plan: Continue metformin (8) Hypertension Assessment & Plan: continue losartan (9) Anemia Assessment & Plan: Severe; slight improvement. Voodoo-refused transfruion. See hematology note. (10) Patient is Voodoo (11) Seizure disorder Assessment & Plan: New onset; Continue keppra per neurology (12) Duodenal ulcer Assessment & Plan: Continue protonix per GI DELFIN MARTINEZ Nov 27, 2017 17:15
--- NOTE | 2017-11-27 19:35 | Pulmonology Progress Note ---
Assessment/Plan Problems: (1) Anemia (2) colitis (3) Asthma (4) CVA (cerebrovascular accident) (5) Diabetes mellitus Assessment/Plan slightly better just cbc in am eating better on Epogen, Venofer, vitamin check h/h sliding saleem Subjective Allergies: Coded Allergies: LATEX (Unverified Allergy, Mild, Rash, 09/03/14) QUININE (Unverified Allergy, Unknown, Rash Hives, 05/23/15) Quinine Sulfate Objective Last 24 Hour Vital Signs Date Time Temp Pulse Resp B/P (MAP) Pulse Ox O2 Delivery O2 Flow Rate FiO2 11/27/17 15:54 96.3 80 19 125/75 100 96.3 11/27/17 12:00 97.2 78 16 156/72 94 97.2 11/27/17 08:30 75 129/64 11/27/17 08:29 129/64 11/27/17 08:00 97.5 67 16 158/75 94 97.5 11/27/17 05:03 97.2 75 20 129/64 98 Room Air 97.2 11/27/17 04:00 97.2 68 20 129/64 100 Room Air 97.2 11/27/17 01:27 97.3 11/27/17 00:44 97.3 88 20 131/63 93 Room Air 97.3 11/26/17 21:08 73 142/70 11/26/17 20:35 97.2 70 20 142/70 98 Room Air 97.2 Intake and Output 11/26/17 11/27/17 19:00 07:00 Intake Total 777.5 ml Balance 777.5 ml Intake Oral 240 ml IV Total 537.5 ml Objective General Appearance: WD/WN HEENT: normocephalic, atraumatic Respiratory/Chest: chest wall non-tender, lungs clear Cardiovascular: normal peripheral pulses, normal rate Abdomen: normal bowel sounds, soft, non tender Genitourinary: normal external genitalia Extremities: no cyanosis Skin: no rash, no ulcers Laboratory Tests 11/27/17 05:30: White Blood Count 6.0, Red Blood Count 2.72L, Hemoglobin 6.8*L, Hematocrit 21.8L , Mean Corpuscular Volume 80, Mean Corpuscular Hemoglobin 24.8L, Mean Corpuscular Hemoglobin Concent 31.0L, Red Cell Distribution Width 24.7H, Platelet Count 281, Mean Platelet Volume 5.6L, Neutrophils (%) (Auto) , Lymphocytes (%) (Auto) , Monocytes (%) (Auto) , Eosinophils (%) (Auto) , Basophils (%) (Auto) , Differential Total Cells Counted 100, Neutrophils % ( Manual) 69, Lymphocytes % (Manual) 15L, Monocytes % (Manual) 13H, Eosinophils % (Manual) 3, Basophils % (Manual) 0, Band Neutrophils 0, Platelet Estimate Adequate, Platelet Morphology Normal, Hypochromasia 2+, Anisocytosis 2+ 11/27/17 16:00: Sodium Level 145, Potassium Level 4.9, Chloride Level 116H, Carbon Dioxide Level 20L, Anion Gap 9, Blood Urea Nitrogen 4L, Creatinine 0.5L, Estimat Glomerular Filtration Rate , Glucose Level 100, Calcium Level 7.7L Current Medications Medications (Trade) Dose Ordered Sig/Don Route PRN Reason Start Time Stop Time Status Last Admin Dose Admin Acetaminophen (Tylenol) 650 mg Q6H PRN ORAL Mild Pain/Temp > 100.5 11/27/17 00:15 12/27/17 00:14 11/27/17 00:28 Carvedilol (Coreg) 6.25 mg Q12HR ORAL 11/23/17 18:00 12/23/17 17:59 11/27/17 08:30 Chlorhexidine Gluconate (Merari-Hex 2%) 1 applic DAILY@2000 TOPIC 11/22/17 20:00 12/16/17 19:59 11/26/17 20:00 Clonidine HCl (Catapres Tab) 0.1 mg Q6H PRN ORAL FOR SBP>160 11/22/17 17:00 12/18/17 16:59 11/24/17 15:43 Dextrose (Dextrose 50%) STAT PRN IV Hypoglycemia 11/22/17 17:00 12/14/17 16:59 11/27/17 11:39 Docusate Sodium (Colace) 100 mg TWICE A DAY ORAL 11/26/17 09:00 12/26/17 08:59 11/27/17 17:40 Dronabinol (Marinol) 2.5 mg BID ORAL 11/25/17 18:00 12/25/17 17:59 11/27/17 17:40 Epoetin Barak (Procrit (for non ESRD use)) 20,000 units Q48H SUBQ 11/24/17 21:00 12/24/17 20:59 11/26/17 21:09 Folic Acid (Folate) 1 mg DAILY ORAL 11/23/17 09:00 12/16/17 08:59 11/27/17 08:29 Guaifenesin (Robitussin) 100 mg EVERY 6 HOURS PRN ORAL For Cough 11/23/17 19:30 12/23/17 19:29 11/25/17 18:41 Insulin Aspart (NovoLOG) BEFORE MEALS AND HS SUBQ 11/22/17 18:00 12/15/17 17:59 11/22/17 21:48 Levetiracetam 100 ml @ 400 mls/hr Q12HR IVPB 11/22/17 21:00 12/19/17 21:59 11/27/17 08:29 Losartan Potassium (Cozaar) 50 mg DAILY ORAL 11/23/17 09:00 12/15/17 08:59 11/27/17 08:29 Metformin HCl (Glucophage) 500 mg TWICE A DAY ORAL 11/22/17 18:00 12/15/17 08:59 11/26/17 17:08 Ondansetron HCl (Zofran) 4 mg Q4H PRN IVP Nausea & Vomiting 11/22/17 17:00 12/22/17 16:59 Pantoprazole (Protonix) 40 mg BID ORAL 11/23/17 18:00 12/22/17 08:59 11/27/17 17:41 Phenol/Menthol (Chloraseptic) 1 spray Q3H PRN ORAL Per rx protocol 11/25/17 20:00 12/25/17 19:59 11/25/17 21:12 Phosphorus (Phospha 250 Neutral) 500 mg THREE TIMES A DAY ORAL 11/23/17 18:00 12/23/17 17:59 11/27/17 17:40 Zolpidem Tartrate (Ambien) 5 mg HSPRN PRN ORAL Insomnia 11/24/17 00:15 12/01/17 00:14 11/25/17 23:42 Juana Watson MD Nov 27, 2017 19:35
[2017-11-27] MEDS: Dyna-Hex 2% Top Sol 2oz TOPIC SCH (20:27)
--- NOTE | 2017-11-27 21:01 | General Progress Note ---
Assessment/Plan Assessment/Plan mdd anxiety increase radha cobosofchayo Subjective Date patient seen: Nov 27, 2017 Neurologic/Psychiatric: Reports: anxiety, depressed, emotional problems Allergies: Coded Allergies: LATEX (Unverified Allergy, Mild, Rash, 09/03/14) QUININE (Unverified Allergy, Unknown, Rash Hives, 05/23/15) Quinine Sulfate Objective Last 24 Hour Vital Signs Date Time Temp Pulse Resp B/P (MAP) Pulse Ox O2 Delivery O2 Flow Rate FiO2 11/27/17 20:28 80 125/75 11/27/17 19:51 97.3 20 141/87 97 Room Air 97.3 11/27/17 15:54 96.3 80 19 125/75 100 96.3 11/27/17 12:00 97.2 78 16 156/72 94 97.2 11/27/17 08:30 75 129/64 11/27/17 08:29 129/64 11/27/17 08:00 97.5 67 16 158/75 94 97.5 11/27/17 05:03 97.2 75 20 129/64 98 Room Air 97.2 11/27/17 04:00 97.2 68 20 129/64 100 Room Air 97.2 11/27/17 01:27 97.3 11/27/17 00:44 97.3 88 20 131/63 93 Room Air 97.3 11/26/17 21:08 73 142/70 Intake and Output 11/26/17 11/27/17 19:00 07:00 Intake Total 777.5 ml Balance 777.5 ml Intake Oral 240 ml IV Total 537.5 ml Laboratory Tests 11/27/17 05:30: White Blood Count 6.0, Red Blood Count 2.72L, Hemoglobin 6.8*L, Hematocrit 21.8L , Mean Corpuscular Volume 80, Mean Corpuscular Hemoglobin 24.8L, Mean Corpuscular Hemoglobin Concent 31.0L, Red Cell Distribution Width 24.7H, Platelet Count 281, Mean Platelet Volume 5.6L, Neutrophils (%) (Auto) , Lymphocytes (%) (Auto) , Monocytes (%) (Auto) , Eosinophils (%) (Auto) , Basophils (%) (Auto) , Differential Total Cells Counted 100, Neutrophils % ( Manual) 69, Lymphocytes % (Manual) 15L, Monocytes % (Manual) 13H, Eosinophils % (Manual) 3, Basophils % (Manual) 0, Band Neutrophils 0, Platelet Estimate Adequate, Platelet Morphology Normal, Hypochromasia 2+, Anisocytosis 2+ 11/27/17 16:00: Sodium Level 145, Potassium Level 4.9, Chloride Level 116H, Carbon Dioxide Level 20L, Anion Gap 9, Blood Urea Nitrogen 4L, Creatinine 0.5L, Estimat Glomerular Filtration Rate , Glucose Level 100, Calcium Level 7.7L Height (Feet): 5 Height (Inches): 3.00 Weight (Pounds): 120 General Appearance: no apparent distress, alert, confused Tani Kitchen M.D. Nov 27, 2017 21:01
[2017-11-28] VITALS (7 sets, daily range): BP systolic 105–146; BP diastolic 55–82
[2017-11-28] MEDS: NovoLOG Insulin Flexpen SUBQ SCH ×4 (05:43→21:00)
[2017-11-28] MEDS: levETIRAcetam 500mg/NS100ml 100 ML IVPB SCH ×2 (09:40→22:14)
[2017-11-28] MEDS: Losartan 50mg tab ORAL SCH (09:40)
[2017-11-28] MEDS: Dronabinol 2.5mg Cap ORAL SCH ×2 (09:40→18:29)
[2017-11-28] MEDS: Docusate 100mg/10ml Liq ORAL SCH ×2 (09:40→18:29)
[2017-11-28] MEDS: Phospha 250 Neutral tab ORAL SCH ×3 (09:40→18:29)
[2017-11-28] MEDS: metFORMIN 500mg tab ORAL SCH ×2 (09:40→18:29)
[2017-11-28] MEDS: Carvedilol 6.25mg Tab ORAL SCH ×2 (09:41→22:14)
--- NOTE | 2017-11-28 11:21 | GI Progress Note ---
Assessment/Plan Problems: (1) Nausea, vomiting, and diarrhea ICD Codes: R11.2 - Nausea with vomiting, unspecified; R19.7 - Diarrhea, unspecified SNOMED: 9733364 (2) Pacemaker ICD Codes: Z95.0 - Pacemaker SNOMED: 754355267 (3) Patient is Mormonism ICD Codes: Z78.9 - Other specified health status SNOMED: 20012876 (4) Anemia ICD Codes: D64.9 - Anemia, unspecified SNOMED: 409678626 (5) colitis (6) Severe anemia ICD Codes: D64.9 - Anemia, unspecified SNOMED: 254550113 Status: unchanged Status Narrative Discussed with Dr. Diaz. Assessment/Plan OB stool positive, second sample is negative S/P EGD >> duodenal ulcer >> possible source of bleed, second OB stool now negative >> fu H. Pylori serology poor po intake, will need family meeting for further management plans PEG scheduled for Sunday >> daughter has consented. trend H&H, patient is taoist calorie count fu H.pylori serology bowel regime fu labs Subjective Subjective limited Objective Last 24 Hour Vital Signs Date Time Temp Pulse Resp B/P (MAP) Pulse Ox O2 Delivery O2 Flow Rate FiO2 11/28/17 09:41 87 144/70 11/28/17 09:40 144/70 11/28/17 08:00 97.1 87 20 144/70 87 97.1 11/28/17 04:52 97.2 75 20 140/82 99 Room Air 97.2 11/28/17 00:45 97.3 98 20 137/75 99 Room Air 97.3 11/27/17 23:54 97.3 11/27/17 22:55 97.3 11/27/17 20:28 80 125/75 11/27/17 19:51 97.3 20 141/87 97 Room Air 97.3 11/27/17 15:54 96.3 80 19 125/75 100 96.3 11/27/17 12:00 97.2 78 16 156/72 94 97.2 Intake and Output 11/27/17 11/28/17 19:00 07:00 Intake Total 240 ml Output Total 500 ml Balance 240 ml -500 ml Intake Oral 240 ml Output Urine Total 500 ml # Bowel Movements 1 Laboratory Tests Test 11/27/17 16:00 Sodium Level 145 MMOL/L (136-145) Potassium Level 4.9 MMOL/L (3.5-5.1) Chloride Level 116 MMOL/L (98-107) H Carbon Dioxide Level 20 MMOL/L (21-32) L Anion Gap 9 mmol/L (5-15) Blood Urea Nitrogen 4 mg/dL (7-18) L Creatinine 0.5 MG/DL (0.55-1.30) L Estimat Glomerular Filtration Rate mL/min (>60) Glucose Level 100 MG/DL (74-106) Calcium Level 7.7 MG/DL (8.5-10.1) L Height (Feet): 5 Height (Inches): 3.00 Weight (Pounds): 120 General Appearance: alert, thin Cardiovascular: normal rate Respiratory/Chest: normal breath sounds, no respiratory distress Abdominal Exam: soft Jelly Lang N.P. Nov 28, 2017 11:21
--- NOTE | 2017-11-28 11:34 | General Progress Note ---
Assessment/Plan Assessment/Plan #. Anemia due to iron deficiency. The patient is status post EGD showed solitary ulcer. --> Ongoing iron for 5 days. The patient continued to have iron deficiency. --> The patient is Worship and is refusing blood products even though there is increased morbidity, mortality in refusing blood products. --> Continue to monitor. Again, continue to recommend blood transfusions if hemoglobin less than 7. --> Hemoglobin levels remain low. #. Anemia of chronic disease. --> Continue the patient on Epogen. #. Worship, refusing blood products. #. Nausea, vomiting, and diarrhea. --> Closely monitor. Zofran has been administered. --> Improved. On Colace --> Poor PO noted. #. Colitis. --> She is on broad-spectrum antibiotics. --> Improving. #. Diarrhea. Recommend the patient to take antibiotics as needed. Check for Clostridium difficile. --> Start colace Subjective Date patient seen: Nov 27, 2017 Constitutional: Denies: no symptoms, chills, diaphoresis, fever, malaise, weakness, other HEENT: Denies: no symptoms, eye pain, blurred vision, tearing, double vision, ear pain, ear discharge, nose pain, nose congestion, throat pain, throat swelling, mouth pain, mouth swelling, other Cardiovascular: Denies: no symptoms, chest pain, edema, irregular heart rate, lightheadedness, palpitations, syncope, other Respiratory: Denies: no symptoms, cough, orthopnea, shortness of breath, SOB with excertion, SOB at rest, sputum, stridor, wheezing, other Gastrointestinal/Abdominal: Denies: no symptoms, abdomen distended, abdominal pain, black stools, tarry stools, blood in stool, constipated, diarrhea, difficulty swallowing, nausea, poor appetite, poor fluid intake, rectal bleeding , vomiting, other Genitourinary: Denies: no symptoms, burning, discharge, frequency, flank pain, hematuria, incontinence, pain, urgency, other Neurologic/Psychiatric: Denies: no symptoms, anxiety, depressed, emotional problems, headache, numbness, paresthesia, pre-existing deficit, seizure, tingling, tremors, weakness, other Hematologic/Lymphatic: Reports: anemia Allergies: Coded Allergies: LATEX (Unverified Allergy, Mild, Rash, 12/25/14) QUININE (Unverified Allergy, Unknown, Rash Hives, 05/23/15) Quinine Sulfate Subjective No new events overnight. No fever or chills. Objective Last 24 Hour Vital Signs Date Time Temp Pulse Resp B/P (MAP) Pulse Ox O2 Delivery O2 Flow Rate FiO2 11/28/17 09:41 87 144/70 11/28/17 09:40 144/70 11/28/17 08:00 97.1 87 20 144/70 87 97.1 11/28/17 04:52 97.2 75 20 140/82 99 Room Air 97.2 11/28/17 00:45 97.3 98 20 137/75 99 Room Air 97.3 11/27/17 23:54 97.3 11/27/17 22:55 97.3 11/27/17 20:28 80 125/75 11/27/17 19:51 97.3 20 141/87 97 Room Air 97.3 11/27/17 15:54 96.3 80 19 125/75 100 96.3 11/27/17 12:00 97.2 78 16 156/72 94 97.2 Intake and Output 11/27/17 11/28/17 19:00 07:00 Intake Total 240 ml Output Total 500 ml Balance 240 ml -500 ml Intake Oral 240 ml Output Urine Total 500 ml # Bowel Movements 1 Laboratory Tests 11/27/17 16:00: Sodium Level 145, Potassium Level 4.9, Chloride Level 116H, Carbon Dioxide Level 20L, Anion Gap 9, Blood Urea Nitrogen 4L, Creatinine 0.5L, Estimat Glomerular Filtration Rate , Glucose Level 100, Calcium Level 7.7L Height (Feet): 5 Height (Inches): 3.00 Weight (Pounds): 120 General Appearance: no apparent distress Respiratory/Chest: decreased breath sounds Abdomen: soft Dg Fairbanks MD Nov 28, 2017 11:34
--- NOTE | 2017-11-28 13:13 | Internal Med Progress Note ---
Subjective Date of Service: Nov 28, 2017 Physician Name Delfin Martinez Attending Physician Lobito Jones MD Current Medications Medications (Trade) Dose Ordered Sig/Don Route PRN Reason Start Time Stop Time Status Last Admin Dose Admin Acetaminophen (Tylenol) 650 mg Q6H PRN ORAL Mild Pain/Temp > 100.5 11/27/17 00:15 12/27/17 00:14 11/27/17 22:55 Carvedilol (Coreg) 6.25 mg Q12HR ORAL 11/23/17 18:00 12/23/17 17:59 11/28/17 09:41 Chlorhexidine Gluconate (Merari-Hex 2%) 1 applic DAILY@2000 TOPIC 11/22/17 20:00 12/16/17 19:59 11/27/17 20:27 Clonidine HCl (Catapres Tab) 0.1 mg Q6H PRN ORAL FOR SBP>160 11/22/17 17:00 12/18/17 16:59 11/24/17 15:43 Dextrose (Dextrose 50%) STAT PRN IV Hypoglycemia 11/22/17 17:00 12/14/17 16:59 11/27/17 11:39 Docusate Sodium (Colace) 100 mg TWICE A DAY ORAL 11/26/17 09:00 12/26/17 08:59 11/28/17 09:40 Dronabinol (Marinol) 2.5 mg BID ORAL 11/25/17 18:00 12/25/17 17:59 11/28/17 09:40 Epoetin Barak (Procrit (for non ESRD use)) 20,000 units Q48H SUBQ 11/24/17 21:00 12/24/17 20:59 11/26/17 21:09 Folic Acid (Folate) 1 mg DAILY ORAL 11/23/17 09:00 12/16/17 08:59 11/28/17 09:41 Guaifenesin (Robitussin) 100 mg EVERY 6 HOURS PRN ORAL For Cough 11/23/17 19:30 12/23/17 19:29 11/25/17 18:41 Insulin Aspart (NovoLOG) BEFORE MEALS AND HS SUBQ 11/22/17 18:00 12/15/17 17:59 11/22/17 21:48 Levetiracetam 100 ml @ 400 mls/hr Q12HR IVPB 11/22/17 21:00 12/19/17 21:59 11/28/17 09:40 Losartan Potassium (Cozaar) 50 mg DAILY ORAL 11/23/17 09:00 12/15/17 08:59 11/28/17 09:40 Metformin HCl (Glucophage) 500 mg TWICE A DAY ORAL 11/22/17 18:00 12/15/17 08:59 11/28/17 09:40 Ondansetron HCl (Zofran) 4 mg Q4H PRN IVP Nausea & Vomiting 11/22/17 17:00 12/22/17 16:59 Pantoprazole (Protonix) 40 mg BID ORAL 11/23/17 18:00 12/22/17 08:59 11/28/17 09:41 Phenol/Menthol (Chloraseptic) 1 spray Q3H PRN ORAL Per rx protocol 11/25/17 20:00 12/25/17 19:59 11/25/17 21:12 Phosphorus (Phospha 250 Neutral) 500 mg THREE TIMES A DAY ORAL 11/23/17 18:00 12/23/17 17:59 11/28/17 09:40 Zolpidem Tartrate (Ambien) 5 mg HSPRN PRN ORAL Insomnia 11/24/17 00:15 12/01/17 00:14 11/25/17 23:42 Allergies: Coded Allergies: LATEX (Unverified Allergy, Mild, Rash, 09/03/14) QUININE (Unverified Allergy, Unknown, Rash Hives, 05/23/15) Quinine Sulfate ROS Limited/Unobtainable: Yes Subjective 76 YO F admitted with diarrhea and dehydration. S/P Endoscopy 11/21/17. Decreased appetite. Cover for Int Med-Dr Jones Objective Last Vital Signs Date Time Temp Pulse Resp B/P (MAP) Pulse Ox O2 Delivery O2 Flow Rate FiO2 11/28/17 09:41 87 144/70 11/28/17 08:00 97.1 20 87 97.1 11/28/17 04:52 Room Air 11/22/17 04:00 2.0 Laboratory Tests Test 11/27/17 16:00 Sodium Level 145 MMOL/L (136-145) Potassium Level 4.9 MMOL/L (3.5-5.1) Chloride Level 116 MMOL/L (98-107) H Carbon Dioxide Level 20 MMOL/L (21-32) L Anion Gap 9 mmol/L (5-15) Blood Urea Nitrogen 4 mg/dL (7-18) L Creatinine 0.5 MG/DL (0.55-1.30) L Estimat Glomerular Filtration Rate mL/min (>60) Glucose Level 100 MG/DL (74-106) Calcium Level 7.7 MG/DL (8.5-10.1) L Intake and Output 11/27/17 11/28/17 19:00 07:00 Intake Total 240 ml Output Total 500 ml Balance 240 ml -500 ml Intake Oral 240 ml Output Urine Total 500 ml # Bowel Movements 1 Objective General Appearance: mild distress, thin EENT: PERRL/EOMI, normal ENT inspection Neck: non-tender, normal alignment, supple Cardiovascular: normal peripheral pulses, normal rate, regular rhythm, no gallop/murmur, no JVD Respiratory/Chest: chest wall non-tender, lungs clear, normal breath sounds, no respiratory distress, no accessory muscle use Abdomen: normal bowel sounds, no mass, abnormal bowel sounds, decreased bowel sounds, tender Extremities: normal range of motion, non-tender 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 (3) Dehydration (4) Abdominal pain (5) CVA (cerebrovascular accident) (6) Left hemiparesis (7) Diabetes mellitus Assessment & Plan: Continue metformin (8) Hypertension Assessment & Plan: continue losartan (9) Anemia Assessment & Plan: Severe; slight improvement. Anabaptism-refused transfruion. See hematology note. (10) Patient is Anabaptism (11) Seizure disorder Assessment & Plan: New onset; Continue keppra per neurology (12) Duodenal ulcer Assessment & Plan: Continue protonix per GI (13) Anorexia Assessment & Plan: await calorie count-see GI note DELFIN MARTINEZ Nov 28, 2017 13:12
--- NOTE | 2017-11-28 14:40 | Nephrology Progress Note ---
Assessment/Plan Assessment 1. Hypernatremia. 2. Hypokalemia. 3. Non-anion gap acidosis, most likely as a result of diarrhea. 4. Hypocalcemia. 5. Hypomagnesemia. 6. Hypophosphatemia. Plan check stat lab (has been ordered for past few days monitoring renal function avoid NSAID nutritional support replace electrolyte as need it Subjective Subjective alert and awake no complaints Objective Objective Last 24 Hour Vital Signs Date Time Temp Pulse Resp B/P (MAP) Pulse Ox O2 Delivery O2 Flow Rate FiO2 11/28/17 12:00 98.9 82 20 146/80 96 98.9 11/28/17 09:41 87 144/70 11/28/17 09:40 144/70 11/28/17 08:00 97.1 87 20 144/70 87 97.1 11/28/17 04:52 97.2 75 20 140/82 99 Room Air 97.2 11/28/17 00:45 97.3 98 20 137/75 99 Room Air 97.3 11/27/17 23:54 97.3 11/27/17 22:55 97.3 11/27/17 20:28 80 125/75 11/27/17 19:51 97.3 20 141/87 97 Room Air 97.3 11/27/17 15:54 96.3 80 19 125/75 100 96.3 Intake and Output 11/27/17 11/28/17 19:00 07:00 Intake Total 240 ml Output Total 500 ml Balance 240 ml -500 ml Intake Oral 240 ml Output Urine Total 500 ml # Bowel Movements 1 Laboratory Tests 11/27/17 16:00: Sodium Level 145, Potassium Level 4.9, Chloride Level 116H, Carbon Dioxide Level 20L, Anion Gap 9, Blood Urea Nitrogen 4L, Creatinine 0.5L, Estimat Glomerular Filtration Rate , Glucose Level 100, Calcium Level 7.7L Height (Feet): 5 Height (Inches): 3.00 Weight (Pounds): 120 Objective HEAD AND NECK: No JVP. No LAD. No thyromegaly. Extraocular movement intact. Pupils are reactive to light and accommodation. LUNGS: Clear to auscultation. CARDIAC: Regular rate and rhythm. S1 and S2. No murmur. No rub. ABDOMEN: Soft, nontender, and nondistended. EXTREMITIES: Trace edema. No clubbing. No cyanosis. NEUROLOGIC: Cranial nerves II to XII within normal limits. Upper and lower extremities are grossly intact. SAKSHI FINN Nov 28, 2017 14:40
--- NOTE | 2017-11-28 17:28 | Pulmonology Progress Note ---
Assessment/Plan Problems: (1) Anemia (2) colitis (3) Asthma (4) CVA (cerebrovascular accident) (5) Diabetes mellitus Assessment/Plan slightly better not eating probably will need PEG on Epogen, Venofer, vitamin check h/h sliding saleem Subjective ROS Limited/Unobtainable: No Constitutional: Reports: no symptoms HEENT: Repors: no symptoms Respiratory: Reports: no symptoms Allergies: Coded Allergies: LATEX (Unverified Allergy, Mild, Rash, 09/03/14) QUININE (Unverified Allergy, Unknown, Rash Hives, 05/23/15) Quinine Sulfate Objective Last 24 Hour Vital Signs Date Time Temp Pulse Resp B/P (MAP) Pulse Ox O2 Delivery O2 Flow Rate FiO2 11/28/17 16:00 97.2 87 20 117/70 96 97.2 11/28/17 12:00 98.9 82 20 146/80 96 98.9 11/28/17 09:41 87 144/70 11/28/17 09:40 144/70 11/28/17 08:00 97.1 87 20 144/70 87 97.1 11/28/17 04:52 97.2 75 20 140/82 99 Room Air 97.2 11/28/17 00:45 97.3 98 20 137/75 99 Room Air 97.3 11/27/17 23:54 97.3 11/27/17 22:55 97.3 11/27/17 20:28 80 125/75 11/27/17 19:51 97.3 20 141/87 97 Room Air 97.3 Intake and Output 11/27/17 11/28/17 19:00 07:00 Intake Total 240 ml Output Total 500 ml Balance 240 ml -500 ml Intake Oral 240 ml Output Urine Total 500 ml # Bowel Movements 1 Objective General Appearance: WD/WN HEENT: normocephalic, atraumatic Respiratory/Chest: chest wall non-tender, lungs clear Cardiovascular: normal peripheral pulses, normal rate Abdomen: normal bowel sounds, soft, non tender Genitourinary: normal external genitalia Extremities: no cyanosis Skin: no rash, no ulcers Current Medications Medications (Trade) Dose Ordered Sig/Don Route PRN Reason Start Time Stop Time Status Last Admin Dose Admin Acetaminophen (Tylenol) 650 mg Q6H PRN ORAL Mild Pain/Temp > 100.5 11/27/17 00:15 12/27/17 00:14 11/27/17 22:55 Carvedilol (Coreg) 6.25 mg Q12HR ORAL 11/23/17 18:00 12/23/17 17:59 11/28/17 09:41 Cefoxitin Sodium 1 gm/Dextrose 55 ml @ 110 mls/hr ONCE ONCE IV 11/30/17 07:00 11/30/17 07:29 Chlorhexidine Gluconate (Merari-Hex 2%) 1 applic DAILY@2000 TOPIC 11/22/17 20:00 12/16/17 19:59 11/27/17 20:27 Clonidine HCl (Catapres Tab) 0.1 mg Q6H PRN ORAL FOR SBP>160 11/22/17 17:00 12/18/17 16:59 11/24/17 15:43 Dextrose (Dextrose 50%) STAT PRN IV Hypoglycemia 11/22/17 17:00 12/14/17 16:59 11/27/17 11:39 Docusate Sodium (Colace) 100 mg TWICE A DAY ORAL 11/26/17 09:00 12/26/17 08:59 11/28/17 09:40 Dronabinol (Marinol) 2.5 mg BID ORAL 11/25/17 18:00 12/25/17 17:59 11/28/17 09:40 Epoetin Barak (Procrit (for non ESRD use)) 20,000 units Q48H SUBQ 11/24/17 21:00 12/24/17 20:59 11/26/17 21:09 Folic Acid (Folate) 1 mg DAILY ORAL 11/23/17 09:00 12/16/17 08:59 11/28/17 09:41 Guaifenesin (Robitussin) 100 mg EVERY 6 HOURS PRN ORAL For Cough 11/23/17 19:30 12/23/17 19:29 11/25/17 18:41 Insulin Aspart (NovoLOG) BEFORE MEALS AND HS SUBQ 11/22/17 18:00 12/15/17 17:59 11/22/17 21:48 Levetiracetam 100 ml @ 400 mls/hr Q12HR IVPB 11/22/17 21:00 12/19/17 21:59 11/28/17 09:40 Losartan Potassium (Cozaar) 50 mg DAILY ORAL 11/23/17 09:00 12/15/17 08:59 11/28/17 09:40 Metformin HCl (Glucophage) 500 mg TWICE A DAY ORAL 11/22/17 18:00 12/15/17 08:59 11/28/17 09:40 Ondansetron HCl (Zofran) 4 mg Q4H PRN IVP Nausea & Vomiting 11/22/17 17:00 12/22/17 16:59 Pantoprazole (Protonix) 40 mg BID ORAL 11/23/17 18:00 12/22/17 08:59 11/28/17 09:41 Phenol/Menthol (Chloraseptic) 1 spray Q3H PRN ORAL Per rx protocol 11/25/17 20:00 12/25/17 19:59 11/25/17 21:12 Phosphorus (Phospha 250 Neutral) 500 mg THREE TIMES A DAY ORAL 11/23/17 18:00 12/23/17 17:59 11/28/17 15:20 Zolpidem Tartrate (Ambien) 5 mg HSPRN PRN ORAL Insomnia 11/24/17 00:15 12/01/17 00:14 11/25/17 23:42 Juana Watson MD Nov 28, 2017 17:28
[2017-11-28] MEDS: Dyna-Hex 2% Top Sol 2oz TOPIC SCH (20:00)
[2017-11-28] MEDS: guaiFENesin 100mg/5ml Liq ud ORAL PRN (22:14)
[2017-11-28] MEDS: Zolpidem 5mg tab ORAL PRN (22:14)
[2017-11-28] MEDS: Epogen (for non ESRD use) SUBQ SCH (22:15)
--- NOTE | 2017-11-28 22:37 | General Progress Note ---
Assessment/Plan Assessment/Plan mdd anxiety increase radha cobosofchayo Subjective Date patient seen: Nov 28, 2017 Neurologic/Psychiatric: Reports: anxiety, depressed, emotional problems Allergies: Coded Allergies: LATEX (Unverified Allergy, Mild, Rash, 09/03/14) QUININE (Unverified Allergy, Unknown, Rash Hives, 05/23/15) Quinine Sulfate Objective Last 24 Hour Vital Signs Date Time Temp Pulse Resp B/P (MAP) Pulse Ox O2 Delivery O2 Flow Rate FiO2 11/28/17 22:14 71 137/65 11/28/17 19:51 98.2 71 20 137/65 99 Room Air 98.2 11/28/17 16:00 97.2 87 20 117/70 96 97.2 11/28/17 12:00 98.9 82 20 146/80 96 98.9 11/28/17 09:41 87 144/70 11/28/17 09:40 144/70 11/28/17 08:00 97.1 87 20 144/70 87 97.1 11/28/17 04:52 97.2 75 20 140/82 99 Room Air 97.2 11/28/17 00:45 97.3 98 20 137/75 99 Room Air 97.3 11/27/17 23:54 97.3 11/27/17 22:55 97.3 Intake and Output 11/27/17 11/28/17 19:00 07:00 Intake Total 240 ml Output Total 500 ml Balance 240 ml -500 ml Intake Oral 240 ml Output Urine Total 500 ml # Bowel Movements 1 Height (Feet): 5 Height (Inches): 3.00 Weight (Pounds): 120 General Appearance: no apparent distress, alert Tani Kitchen M.D. Nov 28, 2017 22:37
[2017-11-29 04:00] VITALS: BP 140/58
[2017-11-29 05:19] VITALS: BP 140/58
[2017-11-29] MEDS: NovoLOG Insulin Flexpen SUBQ SCH ×4 (06:30→20:21)
[2017-11-29] MEDS ORDERED: cefOXitin Sod 1 GM in D5W 55 ML IV ONE (07:00)
[2017-11-29 08:37] VITALS: BP 123/72
[2017-11-29] MEDS: Dronabinol 2.5mg Cap ORAL SCH ×2 (09:00→17:50)
[2017-11-29] MEDS: Docusate 100mg/10ml Liq ORAL SCH ×2 (09:00→17:50)
[2017-11-29] MEDS: Phospha 250 Neutral tab ORAL SCH ×3 (09:00→17:50)
[2017-11-29] MEDS: Carvedilol 6.25mg Tab ORAL SCH ×2 (09:00→21:43)
[2017-11-29] MEDS: metFORMIN 500mg tab ORAL SCH ×2 (09:00→17:49)
[2017-11-29] MEDS: Losartan 50mg tab ORAL SCH (09:00)
[2017-11-29] MEDS: levETIRAcetam 500mg/NS100ml 100 ML IVPB SCH ×2 (09:02→20:37)
--- NOTE | 2017-11-29 11:52 | GI Progress Note ---
Assessment/Plan Problems: (1) Nausea, vomiting, and diarrhea ICD Codes: R11.2 - Nausea with vomiting, unspecified; R19.7 - Diarrhea, unspecified SNOMED: 1911206 (2) Pacemaker ICD Codes: Z95.0 - Pacemaker SNOMED: 279238182 (3) Patient is Faith ICD Codes: Z78.9 - Other specified health status SNOMED: 64019943 (4) Anemia ICD Codes: D64.9 - Anemia, unspecified SNOMED: 131393488 (5) colitis (6) Severe anemia ICD Codes: D64.9 - Anemia, unspecified SNOMED: 678873373 (7) Severe malnutrition ICD Codes: E43 - Unspecified severe protein-calorie malnutrition SNOMED: 01061649 Status: stable Status Narrative Discussed with Dr. Diaz. Assessment/Plan OB stool positive, second sample is negative S/P EGD >> duodenal ulcer >> possible source of bleed, second OB stool now negative >> fu H. Pylori serology poor po intake, will need family meeting for further management plans PEG scheduled for tomorrow. >> daughter has consented. - NPO @ [place]. - hold all blood thinners trend H&H, patient is oriental orthodox calorie count fu H.pylori serology bowel regime fu labs Subjective Subjective limited Objective Last 24 Hour Vital Signs Date Time Temp Pulse Resp B/P (MAP) Pulse Ox O2 Delivery O2 Flow Rate FiO2 11/29/17 09:00 88 123/72 11/29/17 09:00 123/72 11/29/17 08:37 98.4 88 20 123/72 95 98.4 11/29/17 05:19 97.0 87 20 140/58 97 Room Air 97.0 11/29/17 04:00 97.0 87 20 140/58 97 Room Air 97.0 11/28/17 23:51 98.1 94 20 105/55 98 Room Air 98.1 11/28/17 22:14 71 137/65 11/28/17 19:51 98.2 71 20 137/65 99 Room Air 98.2 11/28/17 16:00 97.2 87 20 117/70 96 97.2 11/28/17 12:00 98.9 82 20 146/80 96 98.9 Intake and Output 11/28/17 11/29/17 19:00 07:00 Output Total 500 ml Balance -500 ml Output Urine Total 500 ml # Voids 2 Height (Feet): 5 Height (Inches): 3.00 Weight (Pounds): 120 General Appearance: no apparent distress, alert Cardiovascular: normal rate Respiratory/Chest: no respiratory distress Abdominal Exam: soft Jelly Lang N.P. Nov 29, 2017 11:52
[2017-11-29 12:31] VITALS: BP 118/67
--- NOTE | 2017-11-29 12:38 | General Progress Note ---
Assessment/Plan Assessment/Plan #. Anemia due to iron deficiency. The patient is status post EGD showed solitary ulcer. --> Ongoing iron for 5 days. The patient continued to have iron deficiency. --> The patient is Congregational and is refusing blood products even though there is increased morbidity, mortality in refusing blood products. --> Continue to monitor. Again, continue to recommend blood transfusions if hemoglobin less than 7. --> Hemoglobin levels remain low. #. Anemia of chronic disease. --> Continue the patient on Epogen. #. Congregational, refusing blood products. #. Nausea, vomiting, and diarrhea. --> Closely monitor. Zofran has been administered. --> Improved. On Colace --> Poor PO noted. #. Colitis. --> She is on broad-spectrum antibiotics. --> Improving. #. Diarrhea. Recommend the patient to take antibiotics as needed. Check for Clostridium difficile. --> Start colace Subjective Date patient seen: Nov 28, 2017 Constitutional: Denies: no symptoms, chills, diaphoresis, fever, malaise, weakness, other HEENT: Denies: no symptoms, eye pain, blurred vision, tearing, double vision, ear pain, ear discharge, nose pain, nose congestion, throat pain, throat swelling, mouth pain, mouth swelling, other Cardiovascular: Denies: no symptoms, chest pain, edema, irregular heart rate, lightheadedness, palpitations, syncope, other Respiratory: Denies: no symptoms, cough, orthopnea, shortness of breath, SOB with excertion, SOB at rest, sputum, stridor, wheezing, other Gastrointestinal/Abdominal: Denies: no symptoms, abdomen distended, abdominal pain, black stools, tarry stools, blood in stool, constipated, diarrhea, difficulty swallowing, nausea, poor appetite, poor fluid intake, rectal bleeding , vomiting, other Genitourinary: Denies: no symptoms, burning, discharge, frequency, flank pain, hematuria, incontinence, pain, urgency, other Neurologic/Psychiatric: Denies: no symptoms, anxiety, depressed, emotional problems, headache, numbness, paresthesia, pre-existing deficit, seizure, tingling, tremors, weakness, other Allergies: Coded Allergies: LATEX (Unverified Allergy, Mild, Rash, 09/03/14) QUININE (Unverified Allergy, Unknown, Rash Hives, 05/23/15) Quinine Sulfate Subjective No new events. Resting in bed. Objective Last 24 Hour Vital Signs Date Time Temp Pulse Resp B/P (MAP) Pulse Ox O2 Delivery O2 Flow Rate FiO2 11/29/17 09:00 88 123/72 11/29/17 09:00 123/72 11/29/17 08:37 98.4 88 20 123/72 95 98.4 11/29/17 05:19 97.0 87 20 140/58 97 Room Air 97.0 11/29/17 04:00 97.0 87 20 140/58 97 Room Air 97.0 11/28/17 23:51 98.1 94 20 105/55 98 Room Air 98.1 11/28/17 22:14 71 137/65 11/28/17 19:51 98.2 71 20 137/65 99 Room Air 98.2 11/28/17 16:00 97.2 87 20 117/70 96 97.2 Intake and Output 11/28/17 11/29/17 19:00 07:00 Output Total 500 ml Balance -500 ml Output Urine Total 500 ml # Voids 2 Height (Feet): 5 Height (Inches): 3.00 Weight (Pounds): 120 Respiratory/Chest: decreased breath sounds Abdomen: soft Dg Fairbanks MD Nov 29, 2017 12:38
--- NOTE | 2017-11-29 13:42 | Nephrology Progress Note ---
Assessment/Plan Assessment 1. Hypernatremia. 2. Hypokalemia. 3. Non-anion gap acidosis, most likely as a result of diarrhea. 4. Hypocalcemia. 5. Hypomagnesemia. 6. Hypophosphatemia. 7. vitamin d deficiency Plan start vitamin D monitoring renal function avoid NSAID nutritional support replace electrolyte as need it Subjective Constitutional: Reports: no symptoms HEENT: Reports: no symptoms Genitourinary: Reports: no symptoms Neurologic/Psychiatric: Reports: no symptoms Subjective alert and awake no complaints Objective Objective Last 24 Hour Vital Signs Date Time Temp Pulse Resp B/P (MAP) Pulse Ox O2 Delivery O2 Flow Rate FiO2 11/29/17 12:31 98.2 84 20 118/67 100 98.2 11/29/17 09:00 88 123/72 11/29/17 09:00 123/72 11/29/17 08:37 98.4 88 20 123/72 95 98.4 11/29/17 05:19 97.0 87 20 140/58 97 Room Air 97.0 11/29/17 04:00 97.0 87 20 140/58 97 Room Air 97.0 11/28/17 23:51 98.1 94 20 105/55 98 Room Air 98.1 11/28/17 22:14 71 137/65 11/28/17 19:51 98.2 71 20 137/65 99 Room Air 98.2 11/28/17 16:00 97.2 87 20 117/70 96 97.2 Intake and Output 11/28/17 11/29/17 19:00 07:00 Output Total 500 ml Balance -500 ml Output Urine Total 500 ml # Voids 2 Height (Feet): 5 Height (Inches): 3.00 Weight (Pounds): 120 Objective HEAD AND NECK: No JVP. No LAD. No thyromegaly. Extraocular movement intact. Pupils are reactive to light and accommodation. LUNGS: Clear to auscultation. CARDIAC: Regular rate and rhythm. S1 and S2. No murmur. No rub. ABDOMEN: Soft, nontender, and nondistended. EXTREMITIES: Trace edema. No clubbing. No cyanosis. NEUROLOGIC: Cranial nerves II to XII within normal limits. Upper and lower extremities are grossly intact. SASKHI FINN Nov 29, 2017 13:42
[2017-11-29 15:53] VITALS: BP 131/85
[2017-11-29] MEDS: Vitamin D 1000 IU Tab ORAL SCH (17:50)
--- NOTE | 2017-11-29 18:17 | Internal Med Progress Note ---
Subjective Date of Service: Nov 29, 2017 Physician Name Delfin Martinez Attending Physician Lobito Jones MD Current Medications Medications (Trade) Dose Ordered Sig/Don Route PRN Reason Start Time Stop Time Status Last Admin Dose Admin Acetaminophen (Tylenol) 650 mg Q6H PRN ORAL Mild Pain/Temp > 100.5 11/27/17 00:15 12/27/17 00:14 11/27/17 22:55 Carvedilol (Coreg) 6.25 mg Q12HR ORAL 11/23/17 18:00 12/23/17 17:59 11/28/17 22:14 Cefoxitin Sodium 1 gm/Dextrose 55 ml @ 110 mls/hr ONCE ONCE IV 11/30/17 07:00 11/30/17 07:29 Chlorhexidine Gluconate (Merari-Hex 2%) 1 applic DAILY@2000 TOPIC 11/22/17 20:00 12/16/17 19:59 11/28/17 20:00 Clonidine HCl (Catapres Tab) 0.1 mg Q6H PRN ORAL FOR SBP>160 11/22/17 17:00 12/18/17 16:59 11/24/17 15:43 Dextrose (Dextrose 50%) STAT PRN IV Hypoglycemia 11/22/17 17:00 12/14/17 16:59 11/29/17 16:37 Docusate Sodium (Colace) 100 mg TWICE A DAY ORAL 11/26/17 09:00 12/26/17 08:59 11/28/17 18:29 Dronabinol (Marinol) 2.5 mg BID ORAL 11/25/17 18:00 12/25/17 17:59 11/28/17 18:29 Epoetin Barak (Procrit (for non ESRD use)) 20,000 units Q48H SUBQ 11/24/17 21:00 12/24/17 20:59 11/28/17 22:15 Folic Acid (Folate) 1 mg DAILY ORAL 11/23/17 09:00 12/16/17 08:59 11/28/17 09:41 Guaifenesin (Robitussin) 100 mg EVERY 6 HOURS PRN ORAL For Cough 11/23/17 19:30 12/23/17 19:29 11/28/17 22:14 Insulin Aspart (NovoLOG) BEFORE MEALS AND HS SUBQ 11/22/17 18:00 12/15/17 17:59 11/22/17 21:48 Levetiracetam 100 ml @ 400 mls/hr Q12HR IVPB 11/22/17 21:00 12/19/17 21:59 11/29/17 09:02 Losartan Potassium (Cozaar) 50 mg DAILY ORAL 11/23/17 09:00 12/15/17 08:59 11/28/17 09:40 Metformin HCl (Glucophage) 500 mg TWICE A DAY ORAL 11/22/17 18:00 12/15/17 08:59 11/28/17 18:29 Ondansetron HCl (Zofran) 4 mg Q4H PRN IVP Nausea & Vomiting 11/22/17 17:00 12/22/17 16:59 Pantoprazole (Protonix) 40 mg BID ORAL 11/23/17 18:00 12/22/17 08:59 11/28/17 18:29 Phenol/Menthol (Chloraseptic) 1 spray Q3H PRN ORAL Per rx protocol 11/25/17 20:00 12/25/17 19:59 11/25/17 21:12 Phosphorus (Phospha 250 Neutral) 500 mg THREE TIMES A DAY ORAL 11/23/17 18:00 12/23/17 17:59 11/28/17 18:29 Vitamin D (Vitamin D) 2,000 intlu BID ORAL 11/29/17 18:00 12/29/17 17:59 Zolpidem Tartrate (Ambien) 5 mg HSPRN PRN ORAL Insomnia 11/24/17 00:15 12/01/17 00:14 11/28/17 22:14 Allergies: Coded Allergies: LATEX (Unverified Allergy, Mild, Rash, 09/03/14) QUININE (Unverified Allergy, Unknown, Rash Hives, 05/23/15) Quinine Sulfate ROS Limited/Unobtainable: Yes Subjective 76 YO F admitted with diarrhea and dehydration. S/P Endoscopy 11/21/17. Decreased appetite. Cover for Int Med-Dr Jones. Await PEG on Sunday11/30/17 Objective Last Vital Signs Date Time Temp Pulse Resp B/P (MAP) Pulse Ox O2 Delivery O2 Flow Rate FiO2 11/29/17 15:53 97.5 87 20 131/85 99 97.5 3/22/18 05:19 Room Air 11/22/17 04:00 2.0 Intake and Output 11/28/17 11/29/17 19:00 07:00 Output Total 500 ml Balance -500 ml Output Urine Total 500 ml # Voids 2 Objective General Appearance: mild distress, thin EENT: PERRL/EOMI, normal ENT inspection Neck: non-tender, normal alignment, supple Cardiovascular: normal peripheral pulses, normal rate, regular rhythm, no gallop/murmur, no JVD Respiratory/Chest: chest wall non-tender, lungs clear, normal breath sounds, no respiratory distress, no accessory muscle use Abdomen: normal bowel sounds, no mass, abnormal bowel sounds, decreased bowel sounds, tender Extremities: normal range of motion, non-tender Neurologic: ergonomist II-XII grossly normal, no motor/sensory deficits Skin: normal pigmentation, warm/dry Assessment/Plan Problem List: (1) Diarrhea Assessment & Plan: Colonoscopy cancelled due to hypokalemia and lack of prep (2) Gastritis Assessment & Plan: S/P Endoscopy 11/21/17-see GI note. (3) Dehydration (4) Abdominal pain (5) CVA (cerebrovascular accident) (6) Left hemiparesis (7) Diabetes mellitus Assessment & Plan: Continue metformin (8) Hypertension Assessment & Plan: continue losartan (9) Anemia Assessment & Plan: Severe; slight improvement. Zoroastrian-refused transfruion. See hematology note. (10) Patient is Zoroastrian (11) Seizure disorder Assessment & Plan: New onset; Continue keppra per neurology (12) Duodenal ulcer Assessment & Plan: Continue protonix per GI (13) Anorexia Assessment & Plan: await PEG Sunday11/30/17-see GI note DELFIN MARTINEZ Nov 29, 2017 18:17
[2017-11-29 20:00] VITALS: BP 123/62
[2017-11-29] MEDS: Dyna-Hex 2% Top Sol 2oz TOPIC SCH (20:17)
[2017-11-29] MEDS: Zolpidem 5mg tab ORAL PRN (21:42)
--- NOTE | 2017-11-29 21:47 | General Progress Note ---
Assessment/Plan Assessment/Plan mdd anxiety increase radha haynes Subjective Date patient seen: Nov 29, 2017 Allergies: Coded Allergies: LATEX (Unverified Allergy, Mild, Rash, 09/03/14) QUININE (Unverified Allergy, Unknown, Rash Hives, 05/23/15) Quinine Sulfate Objective Last 24 Hour Vital Signs Date Time Temp Pulse Resp B/P (MAP) Pulse Ox O2 Delivery O2 Flow Rate FiO2 11/29/17 21:43 82 131/69 11/29/17 20:00 97.3 82 17 123/62 98 97.3 11/29/17 15:53 97.5 87 20 131/85 99 97.5 11/29/17 12:31 98.2 84 20 118/67 100 98.2 11/29/17 09:00 88 123/72 11/29/17 09:00 123/72 11/29/17 08:37 98.4 88 20 123/72 95 98.4 11/29/17 05:19 97.0 87 20 140/58 97 Room Air 97.0 11/29/17 04:00 97.0 87 20 140/58 97 Room Air 97.0 11/28/17 23:51 98.1 94 20 105/55 98 Room Air 98.1 11/28/17 22:14 71 137/65 Intake and Output 11/28/17 11/29/17 19:00 07:00 Output Total 500 ml Balance -500 ml Output Urine Total 500 ml # Voids 2 Height (Feet): 5 Height (Inches): 3.00 Weight (Pounds): 120 Tani Kitchen M.D. Nov 29, 2017 21:47
--- NOTE | 2017-11-29 22:31 | Pulmonology Progress Note ---
Assessment/Plan Problems: (1) Anemia (2) colitis (3) Asthma (4) CVA (cerebrovascular accident) (5) Diabetes mellitus Assessment/Plan slightly better not eating probably will need PEG on Epogen, Venofer, vitamin check h/h sliding saleem PEG scheduled Subjective Constitutional: Reports: no symptoms HEENT: Repors: no symptoms Respiratory: Reports: no symptoms Allergies: Coded Allergies: LATEX (Unverified Allergy, Mild, Rash, 09/03/14) QUININE (Unverified Allergy, Unknown, Rash Hives, 05/23/15) Quinine Sulfate Objective Last 24 Hour Vital Signs Date Time Temp Pulse Resp B/P (MAP) Pulse Ox O2 Delivery O2 Flow Rate FiO2 11/29/17 21:43 82 131/69 11/29/17 20:00 97.3 82 17 123/62 98 97.3 11/29/17 15:53 97.5 87 20 131/85 99 97.5 11/29/17 12:31 98.2 84 20 118/67 100 98.2 11/29/17 09:00 88 123/72 11/29/17 09:00 123/72 11/29/17 08:37 98.4 88 20 123/72 95 98.4 11/29/17 05:19 97.0 87 20 140/58 97 Room Air 97.0 11/29/17 04:00 97.0 87 20 140/58 97 Room Air 97.0 11/28/17 23:51 98.1 94 20 105/55 98 Room Air 98.1 Intake and Output 11/28/17 11/29/17 19:00 07:00 Output Total 500 ml Balance -500 ml Output Urine Total 500 ml # Voids 2 Objective General Appearance: WD/WN HEENT: normocephalic, atraumatic Respiratory/Chest: chest wall non-tender, lungs clear Cardiovascular: normal peripheral pulses, normal rate Abdomen: normal bowel sounds, soft, non tender Genitourinary: normal external genitalia Extremities: no cyanosis Skin: no rash, no ulcers Current Medications Medications (Trade) Dose Ordered Sig/Don Route PRN Reason Start Time Stop Time Status Last Admin Dose Admin Acetaminophen (Tylenol) 650 mg Q6H PRN ORAL Mild Pain/Temp > 100.5 11/27/17 00:15 12/27/17 00:14 11/27/17 22:55 Carvedilol (Coreg) 6.25 mg Q12HR ORAL 11/23/17 18:00 12/23/17 17:59 11/29/17 21:43 Cefoxitin Sodium 1 gm/Dextrose 55 ml @ 110 mls/hr ONCE ONCE IV 11/30/17 07:00 11/30/17 07:29 Chlorhexidine Gluconate (Merari-Hex 2%) 1 applic DAILY@2000 TOPIC 11/22/17 20:00 12/16/17 19:59 11/29/17 20:17 Clonidine HCl (Catapres Tab) 0.1 mg Q6H PRN ORAL FOR SBP>160 11/22/17 17:00 12/18/17 16:59 11/24/17 15:43 Dextrose (Dextrose 50%) STAT PRN IV Hypoglycemia 11/22/17 17:00 12/14/17 16:59 11/29/17 16:37 Docusate Sodium (Colace) 100 mg TWICE A DAY ORAL 11/26/17 09:00 12/26/17 08:59 11/28/17 18:29 Dronabinol (Marinol) 2.5 mg BID ORAL 11/25/17 18:00 12/25/17 17:59 11/28/17 18:29 Epoetin Barak (Procrit (for non ESRD use)) 20,000 units Q48H SUBQ 11/24/17 21:00 12/24/17 20:59 11/28/17 22:15 Folic Acid (Folate) 1 mg DAILY ORAL 11/23/17 09:00 12/16/17 08:59 11/28/17 09:41 Guaifenesin (Robitussin) 100 mg EVERY 6 HOURS PRN ORAL For Cough 11/23/17 19:30 12/23/17 19:29 11/28/17 22:14 Insulin Aspart (NovoLOG) BEFORE MEALS AND HS SUBQ 11/22/17 18:00 12/15/17 17:59 11/22/17 21:48 Levetiracetam 100 ml @ 400 mls/hr Q12HR IVPB 11/22/17 21:00 12/19/17 21:59 11/29/17 20:37 Losartan Potassium (Cozaar) 50 mg DAILY ORAL 11/23/17 09:00 12/15/17 08:59 11/28/17 09:40 Metformin HCl (Glucophage) 500 mg TWICE A DAY ORAL 11/22/17 18:00 12/15/17 08:59 11/28/17 18:29 Ondansetron HCl (Zofran) 4 mg Q4H PRN IVP Nausea & Vomiting 11/22/17 17:00 12/22/17 16:59 Pantoprazole (Protonix) 40 mg BID ORAL 11/23/17 18:00 12/22/17 08:59 11/28/17 18:29 Phenol/Menthol (Chloraseptic) 1 spray Q3H PRN ORAL Per rx protocol 11/25/17 20:00 12/25/17 19:59 11/25/17 21:12 Phosphorus (Phospha 250 Neutral) 500 mg THREE TIMES A DAY ORAL 11/23/17 18:00 12/23/17 17:59 11/28/17 18:29 Vitamin D (Vitamin D) 2,000 intlu BID ORAL 11/29/17 18:00 12/29/17 17:59 Zolpidem Tartrate (Ambien) 5 mg HSPRN PRN ORAL Insomnia 11/24/17 00:15 12/01/17 00:14 11/29/17 21:42 Juana Watson MD Nov 29, 2017 22:31
[2017-11-30] VITALS (10 sets, daily range): BP systolic 115–154; BP diastolic 66–90
[2017-11-30] MEDS: NovoLOG Insulin Flexpen SUBQ SCH ×4 (06:10→21:00)
[2017-11-30] MEDS ORDERED: Lidocaine 1% MPF 10mg/ml 5ml ONE (06:30)
[2017-11-30] MEDS ORDERED: Propofol 200mg/20ml IV ONE (06:30)
--- NOTE | 2017-11-30 06:40 | Anethesia Preoperative Eval ---
Anesthesia Pre-op PMH/ROS General Date of Evaluation: Nov 30, 2017 Time of Evaluation: 06:36 Anesthesiologist: alessandro ASA Score: ASA 4 Mallampati Score Class I : Soft palate, uvula, fauces, pillars visible Class II: Soft palate, uvula, fauces visible Class III: Soft palate, base of uvula visible Class IV: Only hard plate visible Mallampati Classification: Class II Surgeon: ko Diagnosis: dysphagia Surgical Procedure: egd/peg Anesthesia History: none Family History: no anesthesia problems Allergies: Coded Allergies: LATEX (Unverified Allergy, Mild, Rash, 09/03/14) QUININE (Unverified Allergy, Unknown, Rash Hives, 05/23/15) Quinine Sulfate Medications: see eMAR Past Medical History Cardiovascular: Reports: HTN, CAD, NV, arrhythmia Pulmonary: Reports: asthma, COPD Gastrointestinal/Genitourinary: Reports: GERD Neurologic/Psychiatric: Reports: dementia, CVA Endocrine: Reports: DM Musculoskeletal/Integumentary: Reports: OA Anesthesia Pre-op Phys. Exam Physician Exam Last Vital Signs Date Time Temp Pulse Resp B/P (MAP) Pulse Ox O2 Delivery O2 Flow Rate FiO2 11/30/17 03:53 97.7 81 20 119/66 99 Room Air 97.7 11/22/17 04:00 2.0 Constitutional: NAD Neurologic: CN 2-12 intact Cardiovascular: RRR Respiratory: CTA Gastrointestinal: S/NT/ND Airway Exam Mallampati Score: Class II MO: limited Neck: supple TMD: 2fb ROM: limited Teeth: missing Anesthesia Pre-op A/P Labs Labs Test 11/27/17 16:00 Sodium Level 145 MMOL/L (136-145) Potassium Level 4.9 MMOL/L (3.5-5.1) Chloride Level 116 MMOL/L (98-107) Carbon Dioxide Level 20 MMOL/L (21-32) Anion Gap 9 mmol/L (5-15) Blood Urea Nitrogen 4 mg/dL (7-18) Creatinine 0.5 MG/DL (0.55-1.30) Estimat Glomerular Filtration Rate mL/min (>60) Glucose Level 100 MG/DL (74-106) Calcium Level 7.7 MG/DL (8.5-10.1) Risk Assessment & Plan Assessment: asa4 Plan: mac Status Change Before Surgery: No Pre-Antibiotics Drug: ancef 1gm Given Within 1 Hr of Incision: Yes Time Given: 07:05 IRAJ PAULINO Nov 30, 2017 06:40
[2017-11-30] MEDS ORDERED: fentaNYL 100 mcg/2 mL IV PRN (06:45)
[2017-11-30] MEDS ORDERED: DiphenhydrAMINE 50mg/ml Inj IVP PRN (06:45)
[2017-11-30] MEDS ORDERED: Atropine Inj 1mg/10ml Syr IV PRN (06:45)
[2017-11-30] MEDS ORDERED: Midazolam 2mg/2ml Inj IVP PRN (06:45)
--- NOTE | 2017-11-30 06:57 | Pre-Procedure Note/Attestation ---
Pre-Procedure Note/Attestation Complete Prior to Procedure Planned Procedure: not applicable Procedure Narrative: esophagogastroduodenoscopypeg Indications for Procedure Pre-Operative Diagnosis: FTT Attestation I attest that I discussed the nature of the procedure; its benefits; risks and complications; and alternatives (and the risks and benefits of such alternatives ), prior to the procedure, with the patient (or the patient's legal employment program representative). I attest that, if there was a reasonable possibility of needing a blood transfusion, the patient (or the patient's legal employment program representative) was given the [facility] standardized written summary, pursuant to the Alex Taz Blood Safety Act ([place] Health and Safety Code # 1645, as amended). I attest that I re-evaluated the patient just prior to the surgery and that there has been no change in the patient's H&P, except as documented below: ORIANA CANALES Nov 30, 2017 06:57
--- NOTE | 2017-11-30 06:58 | General Progress Note ---
Assessment/Plan Problem List: (1) Duodenal ulcer ICD Codes: K26.9 - Duodenal ulcer, unspecified as acute or chronic, without hemorrhage or perforation SNOMED: 84670666 (2) Patient is Anabaptism ICD Codes: Z78.9 - Other specified health status SNOMED: 99526366 (3) AICD (automatic cardioverter/defibrillator) present ICD Codes: Z95.810 - Presence of automatic (implantable) cardiac defibrillator SNOMED: 70162124, 093951875 (4) Pacemaker ICD Codes: Z95.0 - Pacemaker SNOMED: 363392168 (5) CVA (cerebrovascular accident) ICD Codes: I63.9 - Cerebrovascular accident SNOMED: 294591826 (6) Diabetes mellitus ICD Codes: E11.9 - Diabetes mellitus SNOMED: 31281725 (7) Anemia ICD Codes: D64.9 - Anemia, unspecified SNOMED: 245221665 (8) Diabetes mellitus ICD Codes: E11.9 - Type 2 diabetes mellitus without complications SNOMED: 66149264 Assessment/Plan plan peg placement today Subjective ROS Limited/Unobtainable: No Allergies: Coded Allergies: LATEX (Unverified Allergy, Mild, Rash, 09/03/14) QUININE (Unverified Allergy, Unknown, Rash Hives, 05/23/15) Quinine Sulfate Objective Last 24 Hour Vital Signs Date Time Temp Pulse Resp B/P (MAP) Pulse Ox O2 Delivery O2 Flow Rate FiO2 11/30/17 03:53 97.7 81 20 119/66 99 Room Air 97.7 11/30/17 00:00 97.9 83 19 127/66 98 97.9 11/29/17 21:43 82 131/69 11/29/17 20:00 97.3 82 17 123/62 98 97.3 11/29/17 15:53 97.5 87 20 131/85 99 97.5 11/29/17 12:31 98.2 84 20 118/67 100 98.2 11/29/17 09:00 88 123/72 11/29/17 09:00 123/72 11/29/17 08:37 98.4 88 20 123/72 95 98.4 Intake and Output 11/29/17 11/30/17 19:00 07:00 Intake Total 160 ml Output Total 400 ml Balance -240 ml Intake Oral 60 ml IV Total 100 ml Output Urine Total 400 ml # Voids 1 Height (Feet): 5 Height (Inches): 3.00 Weight (Pounds): 149 General Appearance: no apparent distress EENT: normal ENT inspection Neck: supple Cardiovascular: normal rate Respiratory/Chest: decreased breath sounds Abdomen: normal bowel sounds, non tender, soft Extremities: non-tender ORIANA CANALES Nov 30, 2017 06:58
[2017-11-30] MEDS ORDERED: cefOXitin Sod 1 GM in D5W 55 ML IV ONE (07:00)
--- NOTE | 2017-11-30 07:10 | Endoscopy Procedure Note ---
Endoscopy Procedure Note General Indication for Procedure: FTT Procedures Performed: EGD, PEG Operative Findings/Diagnosis: same Specimen: none Pt Tolerated Procedure Well: Yes Estimated Blood Loss: none Anesthesia Anesthesiologist: lance Anesthesia: MAC Inserted Devices Implant(s) used?: No GI Core Measures 50 yrs or older w/o bx or poly: Not Applicable 10yrs. F/U not recommended: Not Applicable ORIANA CANALES Nov 30, 2017 07:10
--- NOTE | 2017-11-30 07:16 | Pulmonology Progress Note ---
Assessment/Plan Assessment/Plan ASSESSMENT Asthma dehydration due to intractable n/v/diarrhea anemia Jehovah witness s/p EGD 11/21 duodenal ulcer gastritis new onset of recurrent seizure disorder extensive cerebrovascular disease with hx of multiple strokes ischemic cardiomyopathy ( with last EF 30%) CHF ( no evidence of decompensation) AICD e/lyte imbalance ( hypo K, hypo P, hypo Mg) dysphagia MDD anxiety severe protein calorie malnutrition with anorexia multiple DTI POA posterior medial back st 4 pressure ulcer POA PLAN OF CARE MS floor O2 HHN prn CXR no acute CP pathology monitor HH, on EPO and Venofer heme follows no transfusion due to orthodoxy beliefs stool OB + x1 and - x1 GI follows s/p EGD with findings of duodena ulcer, gastritis biopsy with chronic gastritis no H pylori H pylori serology pending colonoscopy as otupt PPI stool C dif and cx negative swallow eval noted with dysphagia, due to anorexia, severe prooeinc calorie malnutrition and poor oral intake ( trial of Marinol was attempted) PEG today, daughter consented neuro follows new onset of seizure seizure precautions Keppra and Ativan prn BS monitoring BP management pt with ischemic CM, last EF 30% in 2017, medical management with AICD, BB, ARB; no diuretic, clinically was dehydrated initially due to intractable n/v/diarrhea nephro follows, avoid nephrotoxic, e/lyte correction as per nephro psych follows, psych med regimen optimized symptomatic treatment wound care as per wound nurse recs case discussed and evaluated by supervising physician Subjective Allergies: Coded Allergies: LATEX (Unverified Allergy, Mild, Rash, 09/03/14) QUININE (Unverified Allergy, Unknown, Rash Hives, 05/23/15) Quinine Sulfate Subjective PEG for today pending afebrile, no leucocytosis Objective Last 24 Hour Vital Signs Date Time Temp Pulse Resp B/P (MAP) Pulse Ox O2 Delivery O2 Flow Rate FiO2 11/30/17 03:53 97.7 81 20 119/66 99 Room Air 97.7 11/30/17 00:00 97.9 83 19 127/66 98 97.9 11/29/17 21:43 82 131/69 11/29/17 20:00 97.3 82 17 123/62 98 97.3 11/29/17 15:53 97.5 87 20 131/85 99 97.5 11/29/17 12:31 98.2 84 20 118/67 100 98.2 11/29/17 09:00 88 123/72 11/29/17 09:00 123/72 11/29/17 08:37 98.4 88 20 123/72 95 98.4 Intake and Output 11/29/17 11/30/17 19:00 07:00 Intake Total 160 ml Output Total 400 ml Balance -240 ml Intake Oral 60 ml IV Total 100 ml Output Urine Total 400 ml # Voids 1 General Appearance: no acute distress, other - elderly bedridden female HEENT: normocephalic, atraumatic, anicteric Respiratory/Chest: chest wall non-tender, lungs clear, no respiratory distress , no accessory muscle use, other - ICD Cardiovascular: normal peripheral pulses, normal rate, regular rhythm, no JVD, other - RUE PICC intact Abdomen: soft, non tender, non distended Neurologic/Psychiatric: abnormal gait - bedridden , alert, responsive Musculoskeletal: atrophy Current Medications Medications (Trade) Dose Ordered Sig/Don Route PRN Reason Start Time Stop Time Status Last Admin Dose Admin Acetaminophen (Tylenol) 650 mg Q6H PRN ORAL Mild Pain/Temp > 100.5 11/27/17 00:15 12/27/17 00:14 11/27/17 22:55 Atropine Sulfate (Atropine) 0.5 mg Q5M PRN IV bpm less than 45 11/30/17 06:45 UNV Carvedilol (Coreg) 6.25 mg Q12HR ORAL 11/23/17 18:00 12/23/17 17:59 11/29/17 21:43 Cefoxitin Sodium 1 gm/Dextrose 55 ml @ 110 mls/hr ONCE ONCE IV 11/30/17 07:00 11/30/17 07:29 11/30/17 06:34 Chlorhexidine Gluconate (Merari-Hex 2%) 1 applic DAILY@2000 TOPIC 11/22/17 20:00 12/16/17 19:59 11/29/17 20:17 Clonidine HCl (Catapres Tab) 0.1 mg Q6H PRN ORAL FOR SBP>160 11/22/17 17:00 12/18/17 16:59 11/24/17 15:43 Dextrose (Dextrose 50%) STAT PRN IV Hypoglycemia 11/22/17 17:00 12/14/17 16:59 11/30/17 05:28 Diphenhydramine HCl (Benadryl) 25 mg Q15M PRN IVP Itching 11/30/17 06:45 UNV Docusate Sodium (Colace) 100 mg TWICE A DAY ORAL 11/26/17 09:00 12/26/17 08:59 11/28/17 18:29 Dronabinol (Marinol) 2.5 mg BID ORAL 11/25/17 18:00 12/25/17 17:59 11/28/17 18:29 Epoetin Barak (Procrit (for non ESRD use)) 20,000 units Q48H SUBQ 11/24/17 21:00 12/24/17 20:59 11/28/17 22:15 Fentanyl Citrate (Sublimaze 100 mcg/2 mL) 25 mcg Q10M PRN IV Moderate Pain (Pain Scale 4-6) 11/30/17 06:45 UNV Folic Acid (Folate) 1 mg DAILY ORAL 11/23/17 09:00 12/16/17 08:59 11/28/17 09:41 Guaifenesin (Robitussin) 100 mg EVERY 6 HOURS PRN ORAL For Cough 11/23/17 19:30 12/23/17 19:29 11/28/17 22:14 Hydralazine HCl (Apresoline) 5 mg Q30M PRN IV SBP>160 OR___/DBP>90 OR___ 11/30/17 06:45 UNV Insulin Aspart (NovoLOG) BEFORE MEALS AND HS SUBQ 11/22/17 18:00 12/15/17 17:59 11/22/17 21:48 Levetiracetam 100 ml @ 400 mls/hr Q12HR IVPB 11/22/17 21:00 12/19/17 21:59 11/29/17 20:37 Losartan Potassium (Cozaar) 50 mg DAILY ORAL 11/23/17 09:00 12/15/17 08:59 11/28/17 09:40 Metformin HCl (Glucophage) 500 mg TWICE A DAY ORAL 11/22/17 18:00 12/15/17 08:59 11/28/17 18:29 Midazolam HCl (Versed 2mg/2ml vial) 1 mg Q15M PRN IVP For Anxiety 11/30/17 06:45 UNV Ondansetron HCl (Zofran) 4 mg Q1H PRN IVP Nausea & Vomiting 11/30/17 06:45 UNV Ondansetron HCl (Zofran) 4 mg Q4H PRN IVP Nausea & Vomiting 11/22/17 17:00 12/22/17 16:59 Pantoprazole (Protonix) 40 mg BID ORAL 11/23/17 18:00 12/22/17 08:59 11/28/17 18:29 Phenol/Menthol (Chloraseptic) 1 spray Q3H PRN ORAL Per rx protocol 11/25/17 20:00 12/25/17 19:59 11/25/17 21:12 Phosphorus (Phospha 250 Neutral) 500 mg THREE TIMES A DAY ORAL 11/23/17 18:00 12/23/17 17:59 11/28/17 18:29 Sodium Chloride 1,000 ml @ 10 mls/hr Q24H IVLG 11/30/17 06:34 11/30/17 08:33 UNV Vitamin D (Vitamin D) 2,000 intlu BID ORAL 11/29/17 18:00 12/29/17 17:59 Zolpidem Tartrate (Ambien) 5 mg HSPRN PRN ORAL Insomnia 11/24/17 00:15 12/01/17 00:14 11/29/17 21:42 Nnamdi CarolinaEllenville [facility] HospitalNohemi Vásquez NP Nov 30, 2017 07:16
[2017-11-30 07:38] LABS: INR 1.2 (0.9-1.1)
[2017-11-30] MEDS: metFORMIN 500mg tab ORAL SCH ×2 (09:23→17:13)
[2017-11-30] MEDS: Docusate 100mg/10ml Liq ORAL SCH ×2 (09:23→17:13)
[2017-11-30] MEDS: Carvedilol 6.25mg Tab ORAL SCH ×2 (09:24→21:27)
[2017-11-30] MEDS: Losartan 50mg tab ORAL SCH (09:24)
[2017-11-30] MEDS: Dronabinol 2.5mg Cap ORAL SCH ×2 (09:24→17:13)
[2017-11-30] MEDS: Vitamin D 1000 IU Tab ORAL SCH ×2 (09:24→17:13)
[2017-11-30] MEDS: Phospha 250 Neutral tab ORAL SCH ×3 (09:24→17:13)
[2017-11-30] MEDS: levETIRAcetam 500mg/NS100ml 100 ML IVPB SCH ×2 (09:28→20:36)
--- NOTE | 2017-11-30 10:31 | Procedure Note ---
DATE OF PROCEDURE: 11/30/2017 SURGEON: Aquilino Diaz M.D. PROCEDURE: Upper endoscopy with PEG placement. ANESTHESIA: Per Dr. Ramirez. INSTRUMENT: Olympus adult flexible upper endoscope. INDICATION: Failure to thrive and dysphagia. REASON FOR PROCEDURE: The procedure, risks, benefits, and possible consequences, including hemorrhage, aspiration, perforation and infection, and alternative treatments, were explained to the patient/legal guardian by Dr. Aquilino Diaz and the patient/legal guardian understood and accepted these risks. DESCRIPTION OF PROCEDURE: After informed consent was obtained and the patient was adequately sedated, Olympus upper endoscope was advanced from mouth into the second portion of duodenum and retroflexion was performed in stomach. Then under endoscopic guidance, under sterile condition, a 20-Kazakh pull type of G-tube was successfully placed in the epigastric area. The distance from the tip of the tube to skin was 2.5 cm in size. The patient tolerated the procedure well without any complication. SUMMARY OF FINDINGS: Status post successful percutaneous endoscopic gastrostomy placement. RECOMMENDATIONS: Abdominal binder. Elevate the head of the bed at all times. G-tube flush. G-tube care. Start tube feeding later today. The patient received a dose of cefoxitin prior to this procedure. I want to thank, Dr. Lobito Jones, for this kind referral. Aquilino Diaz M.D. DR: NIDIA JOB#: [id number] CC: Lobito Jones M.D.; Fax#: [phone]
--- NOTE | 2017-11-30 11:27 | Nephrology Progress Note ---
Assessment/Plan Assessment 1. Hypernatremia. resolved 2. Hypokalemia. 3. Non-anion gap acidosis, most likely as a result of diarrhea. 4. Hypocalcemia due to vit d deficiency 5. malnutrition 6. Hypophosphatemia. 7. vitamin d deficiency Plan continue vitamin D monitoring renal function avoid NSAID nutritional support replace electrolyte as need it Subjective Constitutional: Reports: no symptoms HEENT: Reports: no symptoms Genitourinary: Reports: no symptoms Neurologic/Psychiatric: Reports: no symptoms Subjective alert and awake no complaints Objective Objective Last 24 Hour Vital Signs Date Time Temp Pulse Resp B/P (MAP) Pulse Ox O2 Delivery O2 Flow Rate FiO2 11/30/17 09:57 97.3 95 19 140/82 99 Room Air 97.3 11/30/17 09:24 95 140/82 11/30/17 09:24 140/82 11/30/17 07:45 98.3 82 15 129/73 98 Room Air 98.3 11/30/17 07:30 82 15 125/78 99 Room Air 11/30/17 07:25 83 14 124/73 99 Room Air 11/30/17 07:20 98.2 82 15 127/71 99 Room Air 98.2 11/30/17 03:53 97.7 81 20 119/66 99 Room Air 97.7 11/30/17 00:00 97.9 83 19 127/66 98 97.9 11/29/17 21:43 82 131/69 11/29/17 20:00 97.3 82 17 123/62 98 97.3 11/29/17 15:53 97.5 87 20 131/85 99 97.5 11/29/17 12:31 98.2 84 20 118/67 100 98.2 Intake and Output 11/29/17 11/30/17 19:00 07:00 Intake Total 160 ml Output Total 400 ml Balance -240 ml Intake Oral 60 ml IV Total 100 ml Output Urine Total 400 ml # Voids 1 Laboratory Tests 11/30/17 05:15: Prothrombin Time 13.1H, Prothromb Time International Ratio 1.2H, Activated Partial Thromboplast Time 34H Height (Feet): 5 Height (Inches): 3.00 Weight (Pounds): 149 Objective HEAD AND NECK: No JVP. No LAD. No thyromegaly. Extraocular movement intact. Pupils are reactive to light and accommodation. LUNGS: Clear to auscultation. CARDIAC: Regular rate and rhythm. S1 and S2. No murmur. No rub. ABDOMEN: Soft, nontender, and nondistended. EXTREMITIES: Trace edema. No clubbing. No cyanosis. NEUROLOGIC: Cranial nerves II to XII within normal limits. Upper and lower extremities are grossly intact. SAKSHI FINN Nov 30, 2017 11:27
--- NOTE | 2017-11-30 14:48 | Immediate Post-Op Evaluation ---
Immediate Post-Op Evalulation Immediate Post-Op Evalulation Procedure: egd Date of Evaluation: Nov 30, 2017 Time of Evaluation: 07:32 IV Fluids: 150ml 0.9ns Blood Products: none Estimated Blood Loss: negligible Blood Pressure Systolic: 127 Blood Pressure Diastolic: 71 Pulse Rate: 84 Respiratory Rate: 18 O2 Sat by Pulse Oximetry: 99 Temperature (Fahrenheit): 98.2 Pain Score (1-10): 0 Nausea: No Vomiting: No Complications none Patient Status: awake, reacts, patent Hydration Status: adequate Drug: ancef 1gm Given Within 1 Hr of Incision: Yes Time Given: 07:05 IRAJ PAULINO Nov 30, 2017 14:48
--- NOTE | 2017-11-30 14:50 | 48 Hour Post Anesthesia Eval ---
Post Anesthesia Evaluation Procedure: egd/peg Date of Evaluation: Nov 30, 2017 Time of Evaluation: 07:34 Blood Pressure Systolic: 125 0: 78 Pulse Rate: 82 Respiratory Rate: 18 Temperature (Fahrenheit): 98.2 O2 Sat by Pulse Oximetry: 99 Airway: patent Nausea: No Vomiting: No Pain Intensity: 0 Hydration Status: adequate Cardiopulmonary Status: stable Mental Status/LOC: patient returned to baseline Post-Anesthesia Complications: none Follow-up care needed: N/A IRAJ PAULINO Nov 30, 2017 14:50
--- NOTE | 2017-11-30 14:56 | General Progress Note ---
Assessment/Plan Assessment/Plan mdd anxiety increase radha imlner zoloft Subjective Allergies: Coded Allergies: LATEX (Unverified Allergy, Mild, Rash, 09/03/14) QUININE (Unverified Allergy, Unknown, Rash Hives, 05/23/15) Quinine Sulfate Subjective the pt is nad, calmer Objective Last 24 Hour Vital Signs Date Time Temp Pulse Resp B/P (MAP) Pulse Ox O2 Delivery O2 Flow Rate FiO2 11/30/17 14:50 208.8 82 18 99 11/30/17 14:48 208.8 84 18 99 11/30/17 14:14 97.5 11/30/17 13:15 97.5 11/30/17 12:00 97.5 123 19 154/90 100 97.5 11/30/17 09:57 97.3 95 19 140/82 99 Room Air 97.3 11/30/17 09:24 95 140/82 11/30/17 09:24 140/82 11/30/17 07:45 98.3 82 15 129/73 98 Room Air 98.3 11/30/17 07:30 82 15 125/78 99 Room Air 11/30/17 07:25 83 14 124/73 99 Room Air 11/30/17 07:20 98.2 82 15 127/71 99 Room Air 98.2 11/30/17 03:53 97.7 81 20 119/66 99 Room Air 97.7 11/30/17 00:00 97.9 83 19 127/66 98 97.9 11/29/17 21:43 82 131/69 11/29/17 20:00 97.3 82 17 123/62 98 97.3 11/29/17 15:53 97.5 87 20 131/85 99 97.5 Intake and Output 11/29/17 11/30/17 19:00 07:00 Intake Total 160 ml Output Total 400 ml Balance -240 ml Intake Oral 60 ml IV Total 100 ml Output Urine Total 400 ml # Voids 1 Laboratory Tests 11/30/17 05:15: Prothrombin Time 13.1H, Prothromb Time International Ratio 1.2H, Activated Partial Thromboplast Time 34H Height (Feet): 5 Height (Inches): 3.00 Weight (Pounds): 149 Tani Kitchen M.D. Nov 30, 2017 14:56
--- NOTE | 2017-11-30 17:43 | Internal Med Progress Note ---
Subjective Date of Service: Nov 30, 2017 Physician Name Delfin Martinez Attending Physician Lobito Jones MD Current Medications Medications (Trade) Dose Ordered Sig/Don Route PRN Reason Start Time Stop Time Status Last Admin Dose Admin Acetaminophen (Tylenol) 650 mg Q6H PRN ORAL Mild Pain/Temp > 100.5 11/27/17 00:15 12/27/17 00:14 11/30/17 13:15 Carvedilol (Coreg) 6.25 mg Q12HR ORAL 11/23/17 18:00 12/23/17 17:59 11/30/17 09:24 Chlorhexidine Gluconate (Merari-Hex 2%) 1 applic DAILY@2000 TOPIC 11/22/17 20:00 12/16/17 19:59 11/29/17 20:17 Clonidine HCl (Catapres Tab) 0.1 mg Q6H PRN ORAL FOR SBP>160 11/22/17 17:00 12/18/17 16:59 11/24/17 15:43 Dextrose (Dextrose 50%) STAT PRN IV Hypoglycemia 11/22/17 17:00 12/14/17 16:59 11/30/17 05:28 Docusate Sodium (Colace) 100 mg TWICE A DAY ORAL 11/26/17 09:00 12/26/17 08:59 11/30/17 17:13 Dronabinol (Marinol) 2.5 mg BID ORAL 11/25/17 18:00 12/25/17 17:59 11/30/17 17:13 Epoetin Barak (Procrit (for non ESRD use)) 20,000 units Q48H SUBQ 11/24/17 21:00 12/24/17 20:59 11/28/17 22:15 Folic Acid (Folate) 1 mg DAILY ORAL 11/23/17 09:00 12/16/17 08:59 11/30/17 09:24 Guaifenesin (Robitussin) 100 mg EVERY 6 HOURS PRN ORAL For Cough 11/23/17 19:30 12/23/17 19:29 11/28/17 22:14 Insulin Aspart (NovoLOG) BEFORE MEALS AND HS SUBQ 11/22/17 18:00 12/15/17 17:59 11/22/17 21:48 Levetiracetam 100 ml @ 400 mls/hr Q12HR IVPB 11/22/17 21:00 12/19/17 21:59 11/30/17 09:28 Losartan Potassium (Cozaar) 50 mg DAILY ORAL 11/23/17 09:00 12/15/17 08:59 11/30/17 09:24 Metformin HCl (Glucophage) 500 mg TWICE A DAY ORAL 11/22/17 18:00 12/15/17 08:59 11/30/17 17:13 Ondansetron HCl (Zofran) 4 mg Q4H PRN IVP Nausea & Vomiting 11/22/17 17:00 12/22/17 16:59 Pantoprazole (Protonix) 40 mg BID ORAL 11/23/17 18:00 12/22/17 08:59 11/30/17 17:13 Phenol/Menthol (Chloraseptic) 1 spray Q3H PRN ORAL Per rx protocol 11/25/17 20:00 12/25/17 19:59 11/25/17 21:12 Phosphorus (Phospha 250 Neutral) 500 mg THREE TIMES A DAY ORAL 11/23/17 18:00 12/23/17 17:59 11/30/17 17:13 Vitamin D (Vitamin D) 2,000 intlu BID ORAL 11/29/17 18:00 12/29/17 17:59 11/30/17 17:13 Zolpidem Tartrate (Ambien) 5 mg HSPRN PRN ORAL Insomnia 11/24/17 00:15 12/01/17 00:14 11/29/17 21:42 Allergies: Coded Allergies: LATEX (Unverified Allergy, Mild, Rash, 09/03/14) QUININE (Unverified Allergy, Unknown, Rash Hives, 05/23/15) Quinine Sulfate ROS Limited/Unobtainable: Yes Subjective 76 YO F admitted with diarrhea and dehydration. S/P Endoscopy 11/21/17. Decreased appetite. Cover for Int Med-Dr Jones. S/P PEG on Sunday11/30/17 Objective Last Vital Signs Date Time Temp Pulse Resp B/P (MAP) Pulse Ox O2 Delivery O2 Flow Rate FiO2 11/30/17 16:00 98.2 112 19 115/74 100 Room Air 98.2 11/22/17 04:00 2.0 Laboratory Tests Test 11/30/17 05:15 Prothrombin Time 13.1 SEC (9.30-11.50) H Prothromb Time International Ratio 1.2 (0.9-1.1) H Activated Partial Thromboplast Time 34 SEC (23-33) H Intake and Output 11/29/17 11/30/17 19:00 07:00 Intake Total 160 ml Output Total 400 ml Balance -240 ml Intake Oral 60 ml IV Total 100 ml Output Urine Total 400 ml # Voids 1 Objective General Appearance: mild distress, thin EENT: PERRL/EOMI, normal ENT inspection Neck: non-tender, normal alignment, supple Cardiovascular: normal peripheral pulses, normal rate, regular rhythm, no gallop/murmur, no JVD Respiratory/Chest: chest wall non-tender, lungs clear, normal breath sounds, no respiratory distress, no accessory muscle use Abdomen: normal bowel sounds, no mass, abnormal bowel sounds, decreased bowel sounds, tender Extremities: normal range of motion, non-tender Neurologic: hand outside cutter II-XII grossly normal, no motor/sensory deficits Skin: normal pigmentation, warm/dry Assessment/Plan Problem List: (1) Diarrhea Assessment & Plan: Colonoscopy cancelled due to hypokalemia and lack of prep (2) Gastritis Assessment & Plan: S/P Endoscopy 11/21/17-see GI note. (3) Dehydration (4) Abdominal pain (5) CVA (cerebrovascular accident) (6) Left hemiparesis (7) Diabetes mellitus Assessment & Plan: Continue metformin (8) Hypertension Assessment & Plan: continue losartan (9) Anemia Assessment & Plan: Severe; slight improvement. Cheondoism-refused transfruion. See hematology note. (10) Patient is Cheondoism (11) Seizure disorder Assessment & Plan: New onset; Continue keppra per neurology (12) Duodenal ulcer Assessment & Plan: Continue protonix per GI (13) Anorexia Assessment & Plan: S/P PEG Sunday11/30/17-see GI note Status: progressing DELFIN MARTINEZ Nov 30, 2017 17:43
[2017-11-30] MEDS: guaiFENesin 100mg/5ml Liq ud ORAL PRN (21:27)
[2017-11-30] MEDS: Dyna-Hex 2% Top Sol 2oz TOPIC SCH (21:27)
[2017-11-30] MEDS: Epogen (for non ESRD use) SUBQ SCH (21:33)
[2017-11-30] MEDS: Metoclopramide 10mg/10ml Liq NG SCH (22:58)
--- NOTE | 2017-11-30 23:33 | General Progress Note ---
Assessment/Plan Assessment/Plan #. Anemia due to iron deficiency. The patient is status post EGD showed solitary ulcer. --> Ongoing iron for 5 days. The patient continued to have iron deficiency. --> The patient is Moravian and is refusing blood products even though there is increased morbidity, mortality in refusing blood products. --> Continue to monitor. Again, continue to recommend blood transfusions if hemoglobin less than 7. --> Hemoglobin levels remain low. #. Anemia of chronic disease. --> Continue the patient on Epogen. #. Moravian, refusing blood products. #. Nausea, vomiting, and diarrhea. --> Closely monitor. Zofran has been administered. --> Improved. On Colace --> Poor PO noted. #. Colitis. --> She is on broad-spectrum antibiotics. --> Improving. #. Diarrhea. Recommend the patient to take antibiotics as needed. Check for Clostridium difficile. --> Start colace Subjective Date patient seen: Nov 29, 2017 Constitutional: Denies: no symptoms, chills, diaphoresis, fever, malaise, weakness, other HEENT: Denies: no symptoms, eye pain, blurred vision, tearing, double vision, ear pain, ear discharge, nose pain, nose congestion, throat pain, throat swelling, mouth pain, mouth swelling, other Cardiovascular: Denies: no symptoms, chest pain, edema, irregular heart rate, lightheadedness, palpitations, syncope, other Respiratory: Denies: no symptoms, cough, orthopnea, shortness of breath, SOB with excertion, SOB at rest, sputum, stridor, wheezing, other Gastrointestinal/Abdominal: Denies: no symptoms, abdomen distended, abdominal pain, black stools, tarry stools, blood in stool, constipated, diarrhea, difficulty swallowing, nausea, poor appetite, poor fluid intake, rectal bleeding , vomiting, other Genitourinary: Denies: no symptoms, burning, discharge, frequency, flank pain, hematuria, incontinence, pain, urgency, other Neurologic/Psychiatric: Denies: no symptoms, anxiety, depressed, emotional problems, headache, numbness, paresthesia, pre-existing deficit, seizure, tingling, tremors, weakness, other Hematologic/Lymphatic: Reports: anemia Allergies: Coded Allergies: LATEX (Unverified Allergy, Mild, Rash, 12/25/14) QUININE (Unverified Allergy, Unknown, Rash Hives, 05/23/15) Quinine Sulfate Subjective No new events. No fever or chills. Objective Last 24 Hour Vital Signs Date Time Temp Pulse Resp B/P (MAP) Pulse Ox O2 Delivery O2 Flow Rate FiO2 11/30/17 21:27 107 128/81 11/30/17 20:00 98.2 107 20 128/81 98 Room Air 98.2 11/30/17 16:00 98.2 112 19 115/74 100 Room Air 98.2 11/30/17 14:50 208.8 82 18 99 11/30/17 14:48 208.8 84 18 99 11/30/17 14:14 97.5 11/30/17 13:15 97.5 11/30/17 12:00 97.5 123 19 154/90 100 97.5 11/30/17 09:57 97.3 95 19 140/82 99 Room Air 97.3 11/30/17 09:24 95 140/82 11/30/17 09:24 140/82 11/30/17 07:45 98.3 82 15 129/73 98 Room Air 98.3 11/30/17 07:30 82 15 125/78 99 Room Air 11/30/17 07:25 83 14 124/73 99 Room Air 11/30/17 07:20 98.2 82 15 127/71 99 Room Air 98.2 11/30/17 03:53 97.7 81 20 119/66 99 Room Air 97.7 11/30/17 00:00 97.9 83 19 127/66 98 97.9 Intake and Output 11/29/17 11/30/17 19:00 07:00 Intake Total 160 ml Output Total 400 ml Balance -240 ml Intake Oral 60 ml IV Total 100 ml Output Urine Total 400 ml # Voids 1 Laboratory Tests 11/30/17 05:15: Prothrombin Time 13.1H, Prothromb Time International Ratio 1.2H, Activated Partial Thromboplast Time 34H Height (Feet): 5 Height (Inches): 3.00 Weight (Pounds): 149 General Appearance: no apparent distress Respiratory/Chest: decreased breath sounds Abdomen: soft Dg Fairbanks MD Nov 30, 2017 23:33
--- NOTE | 2017-11-30 23:33 | General Progress Note ---
Assessment/Plan Assessment/Plan #. Anemia due to iron deficiency. The patient is status post EGD showed solitary ulcer. --> Ongoing iron for 5 days. The patient continued to have iron deficiency. --> The patient is Moravian and is refusing blood products even though there is increased morbidity, mortality in refusing blood products. --> Continue to monitor. Again, continue to recommend blood transfusions if hemoglobin less than 7. --> Hemoglobin levels remain low. #. Anemia of chronic disease. --> Continue the patient on Epogen. #. Moravian, refusing blood products. #. Nausea, vomiting, and diarrhea. --> Closely monitor. Zofran has been administered. --> Improved. On Colace --> Poor PO noted. #. Colitis. --> She is on broad-spectrum antibiotics. --> Improving. #. Diarrhea. Recommend the patient to take antibiotics as needed. Check for Clostridium difficile. --> Start colace Subjective Date patient seen: Nov 30, 2017 Constitutional: Denies: no symptoms, chills, diaphoresis, fever, malaise, weakness, other HEENT: Denies: no symptoms, eye pain, blurred vision, tearing, double vision, ear pain, ear discharge, nose pain, nose congestion, throat pain, throat swelling, mouth pain, mouth swelling, other Cardiovascular: Denies: no symptoms, chest pain, edema, irregular heart rate, lightheadedness, palpitations, syncope, other Respiratory: Denies: no symptoms, cough, orthopnea, shortness of breath, SOB with excertion, SOB at rest, sputum, stridor, wheezing, other Gastrointestinal/Abdominal: Denies: no symptoms, abdomen distended, abdominal pain, black stools, tarry stools, blood in stool, constipated, diarrhea, difficulty swallowing, nausea, poor appetite, poor fluid intake, rectal bleeding , vomiting, other Genitourinary: Denies: no symptoms, burning, discharge, frequency, flank pain, hematuria, incontinence, pain, urgency, other Neurologic/Psychiatric: Denies: no symptoms, anxiety, depressed, emotional problems, headache, numbness, paresthesia, pre-existing deficit, seizure, tingling, tremors, weakness, other Endocrine: Denies: no symptoms, excessive sweating, flushing, intolerance to cold, intolerance to heat, increased hunger, increased thirst, increased urine, unexplained weight gain, unexplained weight loss, other Hematologic/Lymphatic: Reports: anemia Allergies: Coded Allergies: LATEX (Unverified Allergy, Mild, Rash, 09/03/14) QUININE (Unverified Allergy, Unknown, Rash Hives, 05/23/15) Quinine Sulfate Subjective Calm. Resting in bed. Hemoglobin remains low Objective Last 24 Hour Vital Signs Date Time Temp Pulse Resp B/P (MAP) Pulse Ox O2 Delivery O2 Flow Rate FiO2 11/30/17 21:27 107 128/81 11/30/17 20:00 98.2 107 20 128/81 98 Room Air 98.2 11/30/17 16:00 98.2 112 19 115/74 100 Room Air 98.2 11/30/17 14:50 208.8 82 18 99 11/30/17 14:48 208.8 84 18 99 11/30/17 14:14 97.5 11/30/17 13:15 97.5 11/30/17 12:00 97.5 123 19 154/90 100 97.5 11/30/17 09:57 97.3 95 19 140/82 99 Room Air 97.3 11/30/17 09:24 95 140/82 11/30/17 09:24 140/82 11/30/17 07:45 98.3 82 15 129/73 98 Room Air 98.3 11/30/17 07:30 82 15 125/78 99 Room Air 11/30/17 07:25 83 14 124/73 99 Room Air 11/30/17 07:20 98.2 82 15 127/71 99 Room Air 98.2 11/30/17 03:53 97.7 81 20 119/66 99 Room Air 97.7 11/30/17 00:00 97.9 83 19 127/66 98 97.9 Intake and Output 11/29/17 11/30/17 19:00 07:00 Intake Total 160 ml Output Total 400 ml Balance -240 ml Intake Oral 60 ml IV Total 100 ml Output Urine Total 400 ml # Voids 1 Laboratory Tests 11/30/17 05:15: Prothrombin Time 13.1H, Prothromb Time International Ratio 1.2H, Activated Partial Thromboplast Time 34H Height (Feet): 5 Height (Inches): 3.00 Weight (Pounds): 149 General Appearance: no apparent distress EENT: normal ENT inspection Neck: normal alignment Respiratory/Chest: decreased breath sounds Abdomen: soft Dg Fairbanks MD Nov 30, 2017 23:33
[2017-12-01] VITALS (7 sets, daily range): BP systolic 89–125; BP diastolic 45–75
[2017-12-01] MEDS: NovoLOG Insulin Flexpen SUBQ SCH ×4 (06:14→20:56)
[2017-12-01] MEDS: Metoclopramide 10mg/10ml Liq NG SCH (06:47)
[2017-12-01] MEDS ORDERED: D5 1/2NS 1,000 ML IV SCH (08:30)
[2017-12-01] MEDS: Vitamin D 1000 IU Tab ORAL SCH ×2 (09:00→18:16)
[2017-12-01] MEDS: Losartan 50mg tab ORAL SCH (09:00)
[2017-12-01] MEDS: Docusate 100mg/10ml Liq ORAL SCH ×2 (09:00→18:00)
[2017-12-01] MEDS: metFORMIN 500mg tab ORAL SCH ×2 (09:00→18:16)
[2017-12-01] MEDS: Dronabinol 2.5mg Cap ORAL SCH ×2 (09:00→18:15)
[2017-12-01] MEDS: Carvedilol 6.25mg Tab ORAL SCH ×2 (09:00→20:59)
[2017-12-01] MEDS: Phospha 250 Neutral tab ORAL SCH ×3 (09:00→18:50)
[2017-12-01] MEDS: levETIRAcetam 500mg/NS100ml 100 ML IVPB SCH ×2 (09:59→20:56)
[2017-12-01] MEDS ORDERED: Metoclopramide 10mg/10ml Liq NG SCH ×2 (12:00→18:00)
--- NOTE | 2017-12-01 12:20 | Nephrology Progress Note ---
Assessment/Plan Assessment 1. Hypernatremia. resolved 2. Hypokalemia. 3. Non-anion gap acidosis, most likely as a result of diarrhea. 4. Hypocalcemia due to vit d deficiency 5. malnutrition 6. Hypophosphatemia. 7. vitamin d deficiency Plan continue vitamin D monitoring renal function avoid NSAID nutritional support replace electrolyte as need it Subjective Subjective alert and awake no complaints Objective Objective Last 24 Hour Vital Signs Date Time Temp Pulse Resp B/P (MAP) Pulse Ox O2 Delivery O2 Flow Rate FiO2 12/01/17 09:02 108 92/68 12/01/17 09:00 108 92/68 12/01/17 09:00 92/68 12/01/17 08:00 96.1 107 18 89/55 98 96.1 12/01/17 04:00 98.8 109 21 98/75 97 Room Air 98.8 12/01/17 00:00 98.2 108 19 125/75 99 Room Air 98.2 11/30/17 21:27 107 128/81 11/30/17 20:00 98.2 107 20 128/81 98 Room Air 98.2 11/30/17 16:00 98.2 112 19 115/74 100 Room Air 98.2 11/30/17 14:50 208.8 82 18 99 11/30/17 14:48 208.8 84 18 99 11/30/17 14:14 97.5 11/30/17 13:15 97.5 Intake and Output 11/30/17 12/01/17 19:00 07:00 Intake Total 1030 ml 220 ml Balance 1030 ml 220 ml Free Water 180 ml IV Total 550 ml 100 ml Tube Feeding 300 ml 120 ml # Voids 1 Height (Feet): 5 Height (Inches): 3.00 Weight (Pounds): 149 Objective HEAD AND NECK: No JVP. No LAD. No thyromegaly. Extraocular movement intact. Pupils are reactive to light and accommodation. LUNGS: Clear to auscultation. CARDIAC: Regular rate and rhythm. S1 and S2. No murmur. No rub. ABDOMEN: Soft, nontender, and nondistended. EXTREMITIES: Trace edema. No clubbing. No cyanosis. NEUROLOGIC: Cranial nerves II to XII within normal limits. Upper and lower extremities are grossly intact. SAKSHI FINN Dec 01, 2017 12:20
[2017-12-01] MEDS ORDERED: Albuterol/Ipratropium 3ml neb HHN PRN ×2 (13:00→16:00)
--- NOTE | 2017-12-01 13:00 | Pulmonology Progress Note ---
Assessment/Plan Assessment/Plan ASSESSMENT Asthma dehydration due to intractable n/v/diarrhea anemia Jehovah witness s/p EGD 11/21 duodenal ulcer gastritis new onset of recurrent seizure disorder extensive cerebrovascular disease with hx of multiple strokes ischemic cardiomyopathy ( with last EF 30%) CHF ( no evidence of decompensation) AICD e/lyte imbalance ( hypo K, hypo P, hypo Mg) dysphagia MDD anxiety severe protein calorie malnutrition with anorexia multiple DTI POA posterior medial back st 4 pressure ulcer POA PLAN OF CARE MS floor O2 HHN prn CXR no acute CP pathology monitor HH, on EPO and Venofer heme follows no transfusion due to nondenominational beliefs stool OB + x1 and - x1 GI follows s/p EGD with findings of duodena ulcer, gastritis biopsy with chronic gastritis no H pylori H pylori serology pending colonoscopy as outpt PPI stool C dif and cx negative swallow eval noted with dysphagia, due to anorexia, severe prooeinc calorie malnutrition and poor oral intake ( trial of Marinol was attempted) s/p PEG 11/30 strict asp precautions, GTF, monitor tolerance neuro follows new onset of seizure seizure precautions Keppra and Ativan prn BS monitoring BP management pt with ischemic CM, last EF 30% in 2017, medical management with AICD, BB, ARB; no diuretic, clinically was dehydrated initially due to intractable n/v/diarrhea nephro follows, avoid nephrotoxic, e/lyte correction as per nephro psych follows, psych med regimen optimized symptomatic treatment wound care as per wound nurse recs case discussed and evaluated by supervising physician Subjective Allergies: Coded Allergies: LATEX (Unverified Allergy, Mild, Rash, 09/03/14) QUININE (Unverified Allergy, Unknown, Rash Hives, 05/23/15) Quinine Sulfate Subjective s/p PEG 11/30 afebrile, tolerates feeding Objective Last 24 Hour Vital Signs Date Time Temp Pulse Resp B/P (MAP) Pulse Ox O2 Delivery O2 Flow Rate FiO2 12/01/17 12:00 97.5 61 18 92/45 99 97.5 12/01/17 09:02 108 92/68 12/01/17 09:00 108 92/68 12/01/17 09:00 92/68 12/01/17 08:00 96.1 107 18 89/55 98 96.1 12/01/17 04:00 98.8 109 21 98/75 97 Room Air 98.8 12/01/17 00:00 98.2 108 19 125/75 99 Room Air 98.2 11/30/17 21:27 107 128/81 11/30/17 20:00 98.2 107 20 128/81 98 Room Air 98.2 11/30/17 16:00 98.2 112 19 115/74 100 Room Air 98.2 11/30/17 14:50 208.8 82 18 99 11/30/17 14:48 208.8 84 18 99 11/30/17 14:14 97.5 11/30/17 13:15 97.5 Intake and Output 11/30/17 12/01/17 19:00 07:00 Intake Total 1030 ml 220 ml Balance 1030 ml 220 ml Free Water 180 ml IV Total 550 ml 100 ml Tube Feeding 300 ml 120 ml # Voids 1 Objective General Appearance: no acute distress, other - elderly bedridden female HEENT: normocephalic, atraumatic, anicteric Respiratory/Chest: chest wall non-tender, lungs clear, no respiratory distress , no accessory muscle use, other - ICD Cardiovascular: normal peripheral pulses, normal rate, regular rhythm, no JVD, RUE PICC intact Abdomen: soft, non tender, non distended, PEG intact, abd binder Neurologic/Psychiatric: abnormal gait - bedridden , alert, responsive Musculoskeletal: atrophy Current Medications Medications (Trade) Dose Ordered Sig/Don Route PRN Reason Start Time Stop Time Status Last Admin Dose Admin Acetaminophen (Tylenol) 650 mg Q6H PRN ORAL Mild Pain/Temp > 100.5 11/27/17 00:15 12/27/17 00:14 11/30/17 13:15 Carvedilol (Coreg) 6.25 mg Q12HR ORAL 11/23/17 18:00 12/23/17 17:59 11/30/17 21:27 Chlorhexidine Gluconate (Merari-Hex 2%) 1 applic DAILY@1999 TOPIC 11/22/17 20:00 12/16/17 19:59 11/30/17 21:27 Clonidine HCl (Catapres Tab) 0.1 mg Q6H PRN ORAL FOR SBP>160 11/22/17 17:00 12/18/17 16:59 11/24/17 15:43 Dextrose (Dextrose 50%) STAT PRN IV Hypoglycemia 11/22/17 17:00 12/14/17 16:59 11/30/17 05:28 Dextrose/Sodium Chloride 1,000 ml @ 50 mls/hr Q20H IV 12/01/17 08:30 12/31/17 08:29 12/01/17 09:27 Docusate Sodium (Colace) 100 mg TWICE A DAY ORAL 11/26/17 09:00 12/26/17 08:59 11/30/17 17:13 Dronabinol (Marinol) 2.5 mg BID ORAL 11/25/17 18:00 12/25/17 17:59 11/30/17 17:13 Epoetin Barak (Procrit (for non ESRD use)) 20,000 units Q48H SUBQ 11/24/17 21:00 12/24/17 20:59 11/30/17 21:33 Erythromycin (Reza-Ped) 50 mg Q8HR GT 12/01/17 14:00 12/08/17 13:59 Folic Acid (Folate) 1 mg DAILY ORAL 11/23/17 09:00 12/16/17 08:59 11/30/17 09:24 Guaifenesin (Robitussin) 100 mg EVERY 6 HOURS PRN ORAL For Cough 11/23/17 19:30 12/23/17 19:29 11/30/17 21:27 Insulin Aspart (NovoLOG) BEFORE MEALS AND HS SUBQ 11/22/17 18:00 12/15/17 17:59 11/22/17 21:48 Levetiracetam 100 ml @ 400 mls/hr Q12HR IVPB 11/22/17 21:00 12/19/17 21:59 12/01/17 09:59 Losartan Potassium (Cozaar) 50 mg DAILY ORAL 11/23/17 09:00 12/15/17 08:59 11/30/17 09:24 Metformin HCl (Glucophage) 500 mg TWICE A DAY ORAL 11/22/17 18:00 12/15/17 08:59 11/30/17 17:13 Metoclopramide HCl (Reglan) 5 mg EVERY 6 HOURS NG 12/01/17 12:00 12/30/17 21:59 Ondansetron HCl (Zofran) 4 mg Q4H PRN IVP Nausea & Vomiting 3/15/18 17:00 12/22/17 16:59 11/30/17 18:50 Pantoprazole (Protonix) 40 mg BID ORAL 11/23/17 18:00 12/22/17 08:59 11/30/17 17:13 Phenol/Menthol (Chloraseptic) 1 spray Q3H PRN ORAL Per rx protocol 11/25/17 20:00 12/25/17 19:59 11/25/17 21:12 Phosphorus (Phospha 250 Neutral) 500 mg THREE TIMES A DAY ORAL 11/23/17 18:00 12/23/17 17:59 11/30/17 17:13 Vitamin D (Vitamin D) 2,000 intlu BID ORAL 11/29/17 18:00 12/29/17 17:59 11/30/17 17:13 Nnamdi CarolinaM[facility] HospitalNohemi Vásquez NP Dec 01, 2017 13:00
[2017-12-01] MEDS ORDERED: Sodium Chloride 500ML 550 ML IV ONE (13:30)
[2017-12-01] MEDS ORDERED: Erythromycin Ethylsuccinate 200mg/5ml Susp GT SCH (14:00)
--- NOTE | 2017-12-01 15:09 | Internal Med Progress Note ---
Subjective Date of Service: Dec 01, 2017 Physician Name Delfin Martinez Attending Physician Lobito Jones MD Current Medications Medications (Trade) Dose Ordered Sig/Don Route PRN Reason Start Time Stop Time Status Last Admin Dose Admin Acetaminophen (Tylenol) 650 mg Q6H PRN ORAL Mild Pain/Temp > 100.5 11/27/17 00:15 12/27/17 00:14 11/30/17 13:15 Albuterol/ Ipratropium (Albuterol/ Ipratropium) 3 ml Q4H PRN HHN Shortness of Breath 12/01/17 13:00 12/06/17 12:59 Carvedilol (Coreg) 6.25 mg Q12HR ORAL 11/23/17 18:00 12/23/17 17:59 11/30/17 21:27 Chlorhexidine Gluconate (Merari-Hex 2%) 1 applic DAILY@2000 TOPIC 11/22/17 20:00 12/16/17 19:59 11/30/17 21:27 Clonidine HCl (Catapres Tab) 0.1 mg Q6H PRN ORAL FOR SBP>160 11/22/17 17:00 12/18/17 16:59 11/24/17 15:43 Dextrose (Dextrose 50%) STAT PRN IV Hypoglycemia 11/22/17 17:00 12/14/17 16:59 11/30/17 05:28 Dextrose/Sodium Chloride 1,000 ml @ 50 mls/hr Q20H IV 12/01/17 08:30 12/31/17 08:29 12/01/17 09:27 Docusate Sodium (Colace) 100 mg TWICE A DAY ORAL 11/26/17 09:00 12/26/17 08:59 11/30/17 17:13 Dronabinol (Marinol) 2.5 mg BID ORAL 11/25/17 18:00 12/25/17 17:59 11/30/17 17:13 Epoetin Barak (Procrit (for non ESRD use)) 20,000 units Q48H SUBQ 11/24/17 21:00 12/24/17 20:59 11/30/17 21:33 Erythromycin (Reza-Ped) 50 mg Q8HR GT 12/01/17 14:00 12/08/17 13:59 Folic Acid (Folate) 1 mg DAILY ORAL 11/23/17 09:00 12/16/17 08:59 11/30/17 09:24 Guaifenesin (Robitussin) 100 mg EVERY 6 HOURS PRN ORAL For Cough 11/23/17 19:30 12/23/17 19:29 11/30/17 21:27 Insulin Aspart (NovoLOG) BEFORE MEALS AND HS SUBQ 11/22/17 18:00 12/15/17 17:59 11/22/17 21:48 Levetiracetam 100 ml @ 400 mls/hr Q12HR IVPB 11/22/17 21:00 12/19/17 21:59 12/01/17 09:59 Losartan Potassium (Cozaar) 50 mg DAILY ORAL 11/23/17 09:00 12/15/17 08:59 11/30/17 09:24 Metformin HCl (Glucophage) 500 mg TWICE A DAY ORAL 11/22/17 18:00 12/15/17 08:59 11/30/17 17:13 Metoclopramide HCl (Reglan) 5 mg EVERY 6 HOURS NG 12/01/17 12:00 12/30/17 21:59 Ondansetron HCl (Zofran) 4 mg Q4H PRN IVP Nausea & Vomiting 11/22/17 17:00 12/22/17 16:59 11/30/17 18:50 Pantoprazole (Protonix) 40 mg BID ORAL 11/23/17 18:00 12/22/17 08:59 11/30/17 17:13 Phenol/Menthol (Chloraseptic) 1 spray Q3H PRN ORAL Per rx protocol 11/25/17 20:00 12/25/17 19:59 11/25/17 21:12 Phosphorus (Phospha 250 Neutral) 500 mg THREE TIMES A DAY ORAL 11/23/17 18:00 12/23/17 17:59 11/30/17 17:13 Vitamin D (Vitamin D) 2,000 intlu BID ORAL 11/29/17 18:00 12/29/17 17:59 11/30/17 17:13 Allergies: Coded Allergies: LATEX (Unverified Allergy, Mild, Rash, 09/03/14) QUININE (Unverified Allergy, Unknown, Rash Hives, 05/23/15) Quinine Sulfate ROS Limited/Unobtainable: No Constitutional: Reports: no symptoms HEENT: Reports: no symptoms Cardiovascular: Reports: no symptoms Respiratory: Reports: no symptoms Gastrointestinal/Abdominal: Reports: no symptoms Genitourinary: Reports: no symptoms Neurologic/Psychiatric: Reports: no symptoms Subjective 76 YO F admitted with diarrhea and dehydration. S/P Endoscopy 11/21/17. Decreased appetite. Cover for Int Med-Dr Jones. S/P PEG on Sunday11/30/17. More lethargic today Objective Last Vital Signs Date Time Temp Pulse Resp B/P (MAP) Pulse Ox O2 Delivery O2 Flow Rate FiO2 12/01/17 12:00 Room Air 12/01/17 12:00 97.5 61 18 92/45 99 97.5 Intake and Output 11/30/17 12/01/17 19:00 07:00 Intake Total 1030 ml 220 ml Balance 1030 ml 220 ml Free Water 180 ml IV Total 550 ml 100 ml Tube Feeding 300 ml 120 ml # Voids 1 Objective General Appearance: mild distress, thin EENT: PERRL/EOMI, normal ENT inspection Neck: non-tender, normal alignment, supple Cardiovascular: normal peripheral pulses, normal rate, regular rhythm, no gallop/murmur, no JVD Respiratory/Chest: chest wall non-tender, lungs clear, normal breath sounds, no respiratory distress, no accessory muscle use Abdomen: normal bowel sounds, no mass, abnormal bowel sounds, decreased bowel sounds, tender Extremities: normal range of motion, non-tender Neurologic: diet attendant II-XII grossly normal, no motor/sensory deficits Skin: normal pigmentation, warm/dry Assessment/Plan Problem List: (1) Diarrhea Assessment & Plan: Colonoscopy cancelled due to hypokalemia and lack of prep (2) Gastritis Assessment & Plan: S/P Endoscopy 11/21/17-see GI note. (3) Dehydration (4) Abdominal pain (5) CVA (cerebrovascular accident) (6) Left hemiparesis (7) Diabetes mellitus Assessment & Plan: Continue metformin (8) Hypertension Assessment & Plan: continue losartan (9) Anemia Assessment & Plan: Severe; slight improvement. Anglican-refused transfruion. See hematology note. (10) Patient is Anglican (11) Seizure disorder Assessment & Plan: New onset; Continue keppra per neurology (12) Duodenal ulcer Assessment & Plan: Continue protonix per GI (13) Anorexia Assessment & Plan: S/P PEG Sunday11/30/17-see GI note Assessment/Plan Transfer to tele DELFIN MARTINEZ Dec 01, 2017 15:09
[2017-12-01] MEDS ORDERED: Chloraseptic Spray 20mL Bottle ORAL PRN (16:00)
[2017-12-01] MEDS ORDERED: guaiFENesin 100mg/5ml Liq ud ORAL PRN (18:00)
[2017-12-01] MEDS: Erythromycin Ethylsuccinate 200mg/5ml Susp GT SCH (18:15)
[2017-12-01] MEDS: D5 1/2NS 1,000 ML IV SCH (18:17)
[2017-12-01] MEDS: Dyna-Hex 2% Top Sol 2oz TOPIC SCH (20:56)
--- NOTE | 2017-12-01 22:59 | Wound Care Consultation ---
Wound Assessment Wound Assessment #1: Wound Number: 1 Wound Present on Admission: Yes New Wound: No Status Change of Wound: No Wound Location Body Site Modif: posterior Wound Location Body Site: back Wound Type: pressure ulcer Leesa Test: Does not Leesa Pressure Ulcer Stage: IV Wound Thickness: Full Thickness Wound Length: 2.0 Wound Width: 1.5 Wound Depth: 0.5 Percent of Wound Roe/Red: 85 Percent of Wound Bed Yellow/Wh: 15 Wound Drainage Description: Serosanguineous Wound Drainage Amount: Moderate Wound Drainage Odor: None/Absent Tissue Surrounding Wound: Intact Wound Undermining at 6:00: 0.8 Wound Undermining at 9:00: 0.5 Wound General Appearance: Reddened, Draining, Muscle Visible Wound Assessment #2: Wound Number: 2 Wound Present on Admission: Yes New Wound: No Status Change of Wound: No Wound Location Body Site Modif: mid Wound Location Body Site: other - Sacrococcygeal Wound Type: pressure ulcer Leesa Test: Does not Leesa Pressure Ulcer Stage: Unstageable Wound Thickness: Full Thickness Wound Length: 3.5 Wound Width: 4.5 Wound Depth: utd Percent of Wound Roe/Red: 40 Percent of Wound Bed Yellow/Wh: 60 Wound Drainage Description: Serosanguineous Wound Drainage Amount: Moderate Wound Drainage Odor: None/Absent Tissue Surrounding Wound: Macerated Wound General Appearance: Reddened - yellow, Draining Wound Comment #1 Right 1st toe deep tissue injury ,right 1st toenail with drainage and erythema -follow up with podiatry #2 right 2nd toe deep tissue injury. #3 right heel deep tissue injury. #4 left heel deep tissue injury. #5 left first toe deep tissue injury #6 left 1st metatarsal head deep tissue injury. #8 Sacrococcygeal unstageable pressure ulcer #9 posterior medial back pressure ulcer stage 4 . #10 posterior upper back hyperpigmented tobar scar tissue Reassessed this Pt. No deterioration noted. will cont to monitor this Pt. -Change treatment on the Sacrococcygeal area and back unstageable pressure ulcer to Santyl ointment. -Local wound care as ordered. -Turn and reposition. -Keep clean and dry. -Low air loss mattress -Offload heels and feet. -Heel protectors -Offload both heels -Optimize nutrition -Assess and f/u accordingly for any changes CLAUDINE CAMPOS RN Dec 01, 2017 22:59
--- NOTE | 2017-12-01 23:06 | General Progress Note ---
Assessment/Plan Assessment/Plan #. Anemia due to iron deficiency. The patient is status post EGD showed solitary ulcer. --> Ongoing iron for 5 days. The patient continued to have iron deficiency. --> The patient is Hoahaoism and is refusing blood products even though there is increased morbidity, mortality in refusing blood products. --> Continue to monitor. Again, continue to recommend blood transfusions if hemoglobin less than 7. --> Hemoglobin levels remain low. #. Anemia of chronic disease. --> Continue the patient on Epogen. #. Hoahaoism, refusing blood products. #. Nausea, vomiting, and diarrhea. --> Closely monitor. Zofran has been administered. --> Improved. On Colace --> Poor PO noted. #. Colitis. --> She is on broad-spectrum antibiotics. --> Improving. #. Diarrhea. Recommend the patient to take antibiotics as needed. Check for Clostridium difficile. --> Start colace Subjective Date patient seen: Dec 01, 2017 Constitutional: Denies: no symptoms, chills, diaphoresis, fever, malaise, weakness, other HEENT: Denies: no symptoms, eye pain, blurred vision, tearing, double vision, ear pain, ear discharge, nose pain, nose congestion, throat pain, throat swelling, mouth pain, mouth swelling, other Cardiovascular: Denies: no symptoms, chest pain, edema, irregular heart rate, lightheadedness, palpitations, syncope, other Respiratory: Denies: no symptoms, cough, orthopnea, shortness of breath, SOB with excertion, SOB at rest, sputum, stridor, wheezing, other Gastrointestinal/Abdominal: Denies: no symptoms, abdomen distended, abdominal pain, black stools, tarry stools, blood in stool, constipated, diarrhea, difficulty swallowing, nausea, poor appetite, poor fluid intake, rectal bleeding , vomiting, other Genitourinary: Denies: no symptoms, burning, discharge, frequency, flank pain, hematuria, incontinence, pain, urgency, other Neurologic/Psychiatric: Denies: no symptoms, anxiety, depressed, emotional problems, headache, numbness, paresthesia, pre-existing deficit, seizure, tingling, tremors, weakness, other Endocrine: Denies: no symptoms, excessive sweating, flushing, intolerance to cold, intolerance to heat, increased hunger, increased thirst, increased urine, unexplained weight gain, unexplained weight loss, other Allergies: Coded Allergies: LATEX (Unverified Allergy, Mild, Rash, 09/03/14) QUININE (Unverified Allergy, Unknown, Rash Hives, 05/23/15) Quinine Sulfate Subjective No major events overnight. No fever or chills. Objective Last 24 Hour Vital Signs Date Time Temp Pulse Resp B/P (MAP) Pulse Ox O2 Delivery O2 Flow Rate FiO2 12/01/17 20:59 97 90/56 12/01/17 16:22 103 12/01/17 15:15 97.5 62 19 111/68 99 Room Air 97.5 12/01/17 12:00 Room Air 12/01/17 12:00 97.5 61 18 92/45 99 97.5 12/01/17 09:02 108 92/68 12/01/17 09:00 108 92/68 12/01/17 09:00 92/68 12/01/17 08:00 Room Air 12/01/17 08:00 96.1 107 18 89/55 98 96.1 12/01/17 04:00 98.8 109 21 98/75 97 Room Air 98.8 12/01/17 00:00 98.2 108 19 125/75 99 Room Air 98.2 Intake and Output 11/30/17 12/01/17 19:00 07:00 Intake Total 1030 ml 220 ml Balance 1030 ml 220 ml Free Water 180 ml IV Total 550 ml 100 ml Tube Feeding 300 ml 120 ml # Voids 1 Height (Feet): 5 Height (Inches): 3.00 Weight (Pounds): 149 General Appearance: no apparent distress Respiratory/Chest: decreased breath sounds Abdomen: soft Dg Fairbanks MD Dec 01, 2017 23:06
[2017-12-02] VITALS: BP 113/67
[2017-12-02] MEDS: Metoclopramide 10mg/10ml Liq NG SCH ×4 (00:18→17:50)
[2017-12-02] MEDS: Erythromycin Ethylsuccinate 200mg/5ml Susp GT SCH ×4 (00:18→22:24)
[2017-12-02 04:00] VITALS: BP 94/54
[2017-12-02] MEDS: NovoLOG Insulin Flexpen SUBQ SCH ×4 (06:23→22:27)
[2017-12-02 08:00] VITALS: BP 138/98
--- NOTE | 2017-12-02 08:12 | Pulmonology Progress Note ---
Assessment/Plan Assessment/Plan ASSESSMENT acute to subacute CVA Asthma dehydration due to intractable n/v/diarrhea anemia Jehovah witness s/p EGD 11/21 duodenal ulcer gastritis new onset of recurrent seizure disorder extensive cerebrovascular disease with hx of multiple strokes ischemic cardiomyopathy ( with last EF 30%) CHF ( no evidence of decompensation) AICD e/lyte imbalance ( hypo K, hypo P, hypo Mg) dysphagia MDD anxiety severe protein calorie malnutrition with anorexia multiple DTI POA posterior medial back st 4 pressure ulcer POA PLAN OF CARE tele CT head ordered stat -Approximately 1.8 x 2.7 cm new area of low density involving the right inferior cerebellum consistent with acute to subacute infarct. No intracranial hemorrhage. neuro eval can t start ASA due to severe anemia Carotid Duplex lipid panel statin if appropriate O2 HHN prn CXR no acute CP pathology monitor HH, on EPO and Venofer heme follows no transfusion due to church beliefs stool OB + x1 and - x1 GI follows s/p EGD with findings of duodena ulcer, gastritis biopsy with chronic gastritis no H pylori H pylori serology pending colonoscopy as outpt PPI stool C dif and cx negative swallow eval noted with dysphagia, due to anorexia, severe prooeinc calorie malnutrition and poor oral intake ( trial of Marinol was attempted) s/p PEG 11/30 strict asp precautions, GTF, monitor tolerance neuro follows new onset of seizure seizure precautions Keppra and Ativan prn BS monitoring BP management pt with ischemic CM, last EF 30% in 2016, medical management with AICD, BB, ARB; no diuretic, clinically was dehydrated initially due to intractable n/v/diarrhea nephro follows, avoid nephrotoxic, e/lyte correction as per nephro psych follows, psych med regimen optimized symptomatic treatment wound care as per wound nurse recs case discussed and evaluated by supervising physician Subjective Allergies: Coded Allergies: LATEX (Unverified Allergy, Mild, Rash, 09/03/14) QUININE (Unverified Allergy, Unknown, Rash Hives, 05/23/15) Quinine Sulfate Subjective transferred to tele last night for being more letahrgic s/p PEG 11/30 afebrile, Objective Last 24 Hour Vital Signs Date Time Temp Pulse Resp B/P (MAP) Pulse Ox O2 Delivery O2 Flow Rate FiO2 12/02/17 04:00 94 12/02/17 04:00 98.2 90 14 94/54 92 Room Air 98.2 12/02/17 00:00 97.5 96 20 113/67 92 Room Air 97.5 12/01/17 23:46 96 12/01/17 21:00 97.2 97 16 90/56 99 Room Air 97.2 12/01/17 20:59 97 90/56 12/01/17 16:22 103 12/01/17 15:15 97.5 62 19 111/68 99 Room Air 97.5 12/01/17 12:00 Room Air 12/01/17 12:00 97.5 61 18 92/45 99 97.5 12/01/17 09:02 108 92/68 12/01/17 09:00 108 92/68 12/01/17 09:00 92/68 Intake and Output 12/01/17 12/02/17 19:00 07:00 Intake Total 30 ml 790 ml Output Total 300 ml Balance -270 ml 790 ml Intake Oral 0 ml Free Water 30 ml 90 ml IV Total 700 ml Output Urine Total 300 ml Objective General Appearance: no acute distress, elderly bedridden female HEENT: normocephalic, atraumatic, anicteric Respiratory/Chest: chest wall non-tender, lungs clear, no respiratory distress , no accessory muscle use, other - ICD Cardiovascular: normal peripheral pulses, normal rate, regular rhythm, no JVD, RUE PICC intact Abdomen: soft, non tender, non distended, PEG intact, abd binder Neurologic/Psychiatric: abnormal gait - bedridden , not responsive Musculoskeletal: atrophy Current Medications Medications (Trade) Dose Ordered Sig/Don Route PRN Reason Start Time Stop Time Status Last Admin Dose Admin Acetaminophen (Tylenol) 650 mg Q6H PRN ORAL Mild Pain/Temp > 100.5 12/01/17 16:00 12/27/17 15:59 Albuterol/ Ipratropium (Albuterol/ Ipratropium) 3 ml Q4H PRN HHN Shortness of Breath 12/01/17 16:00 12/06/17 15:59 Carvedilol (Coreg) 6.25 mg Q12HR ORAL 12/01/17 21:00 12/23/17 17:59 Chlorhexidine Gluconate (Merari-Hex 2%) 1 applic DAILY@1999 TOPIC 12/01/17 20:00 12/16/17 19:59 12/01/17 20:56 Clonidine HCl (Catapres Tab) 0.1 mg Q6H PRN ORAL FOR SBP>160 12/01/17 16:00 12/18/17 15:59 Collagenase (Santyl) 1 applic DAILY TOPIC 12/02/17 09:00 01/01/18 08:59 Dextrose (Dextrose 50%) STAT PRN IV Hypoglycemia 12/01/17 16:00 12/14/17 15:59 Dextrose/Sodium Chloride 1,000 ml @ 50 mls/hr Q20H IV 12/01/17 16:00 12/31/17 15:59 12/01/17 18:17 Docusate Sodium (Colace) 100 mg TWICE A DAY ORAL 12/01/17 18:00 12/26/17 08:59 Dronabinol (Marinol) 2.5 mg BID ORAL 12/01/17 18:00 12/25/17 17:59 12/01/17 18:15 Epoetin Barak (Procrit (for non ESRD use)) 20,000 units Q48H SUBQ 12/02/17 21:00 12/24/17 20:59 Erythromycin (Reza-Ped) 50 mg Q8HR GT 12/01/17 16:00 12/08/17 15:59 12/02/17 05:46 Folic Acid (Folate) 1 mg DAILY ORAL 12/02/17 09:00 12/16/17 08:59 Guaifenesin (Robitussin) 100 mg Q6H PRN ORAL For Cough 12/01/17 18:00 12/31/17 17:59 Insulin Aspart (NovoLOG) BEFORE MEALS AND HS SUBQ 12/01/17 16:30 12/15/17 17:59 12/02/17 06:23 Levetiracetam 100 ml @ 400 mls/hr Q12HR IVPB 12/01/17 21:00 12/19/17 21:59 12/01/17 20:56 Losartan Potassium (Cozaar) 50 mg DAILY ORAL 12/02/17 09:00 12/15/17 08:59 Metformin HCl (Glucophage) 500 mg TWICE A DAY ORAL 12/01/17 18:00 12/15/17 08:59 12/01/17 18:16 Metoclopramide HCl (Reglan) 10 mg EVERY 6 HOURS NG 12/02/17 00:00 12/30/17 21:59 12/02/17 05:46 Ondansetron HCl (Zofran) 4 mg Q4H PRN IVP Nausea & Vomiting 12/01/17 16:00 12/22/17 15:59 Pantoprazole (Protonix) 40 mg BID ORAL 12/01/17 18:00 12/22/17 08:59 12/01/17 18:15 Phenol/Menthol (Chloraseptic) 1 spray Q3H PRN ORAL SORE THROAT 12/01/17 16:00 12/25/17 15:59 Phosphorus (Phospha 250 Neutral) 500 mg THREE TIMES A DAY ORAL 12/01/17 18:00 12/23/17 17:59 12/01/17 18:50 Vitamin D (Vitamin D) 2,000 intlu BID ORAL 12/01/17 18:00 12/29/17 17:59 12/01/17 18:16 Nnamdi CarolinaNyu Langone HealthNohemi Vásquez NP Dec 02, 2017 08:11
[2017-12-02] MEDS: metFORMIN 500mg tab ORAL SCH ×3 (09:00→17:50)
[2017-12-02] MEDS: Dronabinol 2.5mg Cap ORAL SCH ×3 (09:00→17:50)
[2017-12-02] MEDS: Phospha 250 Neutral tab ORAL SCH ×4 (09:00→17:50)
[2017-12-02] MEDS ORDERED: Losartan 50mg tab ORAL SCH (09:00)
[2017-12-02] MEDS: Docusate 100mg/10ml Liq ORAL SCH ×3 (09:00→17:50)
[2017-12-02] MEDS: Vitamin D 1000 IU Tab ORAL SCH ×3 (09:00→17:50)
[2017-12-02] MEDS: Carvedilol 6.25mg Tab ORAL SCH ×3 (09:00→22:23)
[2017-12-02] MEDS: levETIRAcetam 500mg/NS100ml 100 ML IVPB SCH ×3 (09:19→22:23)
--- NOTE | 2017-12-02 09:40 | Diagnostic Imaging Report ---
Indication: Altered mental status Technique: Continuous helical CT scanning of the head was performed utilizing automated exposure control without intravenous contrast material. Axial and coronal reconstructions were obtained. Comparison: 11/19/2017 CT dose: Total DLP 1383 mGycm; CTDI vol 70.4 mGy Findings: There is an approximately 2.7 x 1.8 cm area of low density in the right inferior cerebellum consistent with acute to subacute infarct new from 11/19/2017. There is no intracranial hemorrhage. There is again atrophy. Chronic ischemic microvascular changes are seen. There is again right temporal, frontal and parietal and left occipital and parietal lobes encephalomalacia. Sella is grossly unremarkable. Visualized mastoid air cells and paranasal sinuses are unremarkable. No focal lesions of the bony calvarium or soft tissues of the scalp are seen. Impression: Approximately 1.8 x 2.7 cm new area of low density involving the right inferior cerebellum consistent with acute to subacute infarct. No intracranial hemorrhage. Correlation with MRI recommended as indicated. Other chronic stable findings as above. Findings were discussed with the patient's 2 E. nurse Shaina at [address] Jones will be contacted. The CT scanner at [facility] is accredited by the [employer] and the scans are performed using protocols designed to limit radiation exposure to as low as reasonably achievable to attain images of sufficient resolution adequate for diagnostic evaluation.
[2017-12-02] MEDS: D5 1/2NS 1,000 ML IV SCH (09:49)
[2017-12-02 12:00] VITALS: BP 108/59
--- NOTE | 2017-12-02 13:05 | Internal Med Progress Note ---
Subjective Date of Service: Dec 02, 2017 Physician Name Martinez,Delfin Attending Physician Lobito Jones MD Current Medications Medications (Trade) Dose Ordered Sig/Don Route PRN Reason Start Time Stop Time Status Last Admin Dose Admin Acetaminophen (Tylenol) 650 mg Q6H PRN ORAL Mild Pain/Temp > 100.5 12/01/17 16:00 12/27/17 15:59 Albuterol/ Ipratropium (Albuterol/ Ipratropium) 3 ml Q4H PRN HHN Shortness of Breath 12/01/17 16:00 12/06/17 15:59 Carvedilol (Coreg) 6.25 mg Q12HR ORAL 12/01/17 21:00 12/23/17 17:59 Chlorhexidine Gluconate (Merari-Hex 2%) 1 applic DAILY@1999 TOPIC 12/01/17 20:00 12/16/17 19:59 12/01/17 20:56 Clonidine HCl (Catapres Tab) 0.1 mg Q6H PRN ORAL FOR SBP>160 12/01/17 16:00 12/18/17 15:59 Collagenase (Santyl) 1 applic DAILY TOPIC 12/02/17 09:00 01/01/18 08:59 12/02/17 09:00 Dextrose (Dextrose 50%) STAT PRN IV Hypoglycemia 12/01/17 16:00 12/14/17 15:59 Dextrose/Sodium Chloride 1,000 ml @ 50 mls/hr Q20H IV 12/01/17 16:00 12/31/17 15:59 12/02/17 09:49 Docusate Sodium (Colace) 100 mg TWICE A DAY ORAL 12/01/17 18:00 12/26/17 08:59 Dronabinol (Marinol) 2.5 mg BID ORAL 12/01/17 18:00 12/25/17 17:59 12/01/17 18:15 Epoetin Barak (Procrit (for non ESRD use)) 20,000 units Q48H SUBQ 12/02/17 21:00 12/24/17 20:59 Erythromycin (Reza-Ped) 50 mg Q8HR GT 12/01/17 16:00 12/08/17 15:59 12/02/17 05:46 Folic Acid (Folate) 1 mg DAILY ORAL 12/02/17 09:00 12/16/17 08:59 12/02/17 09:22 Guaifenesin (Robitussin) 100 mg Q6H PRN ORAL For Cough 12/01/17 18:00 12/31/17 17:59 Insulin Aspart (NovoLOG) BEFORE MEALS AND HS SUBQ 12/01/17 16:30 12/15/17 17:59 12/02/17 06:23 Levetiracetam 100 ml @ 400 mls/hr Q12HR IVPB 12/01/17 21:00 12/19/17 21:59 12/02/17 09:48 Losartan Potassium (Cozaar) 50 mg DAILY ORAL 12/02/17 09:00 12/15/17 08:59 12/02/17 09:21 Metformin HCl (Glucophage) 500 mg TWICE A DAY ORAL 12/01/17 18:00 12/15/17 08:59 12/01/17 18:16 Metoclopramide HCl (Reglan) 10 mg EVERY 6 HOURS NG 12/02/17 00:00 12/30/17 21:59 12/02/17 05:46 Ondansetron HCl (Zofran) 4 mg Q4H PRN IVP Nausea & Vomiting 12/01/17 16:00 12/22/17 15:59 Pantoprazole (Protonix) 40 mg BID ORAL 12/01/17 18:00 12/22/17 08:59 12/01/17 18:15 Phenol/Menthol (Chloraseptic) 1 spray Q3H PRN ORAL SORE THROAT 12/01/17 16:00 12/25/17 15:59 Phosphorus (Phospha 250 Neutral) 500 mg THREE TIMES A DAY ORAL 12/01/17 18:00 12/23/17 17:59 12/01/17 18:50 Vitamin D (Vitamin D) 2,000 intlu BID ORAL 12/01/17 18:00 12/29/17 17:59 12/02/17 09:00 Allergies: Coded Allergies: LATEX (Unverified Allergy, Mild, Rash, 09/03/14) QUININE (Unverified Allergy, Unknown, Rash Hives, 05/23/15) Quinine Sulfate ROS Limited/Unobtainable: Yes Subjective 76 YO F admitted with diarrhea and dehydration. S/P Endoscopy 11/21/17. Decreased appetite. Cover for Int Med-Dr Jones. S/P PEG on Sunday11/30/17. Altered mental status yesterday-now on tele Objective Last Vital Signs Date Time Temp Pulse Resp B/P (MAP) Pulse Ox O2 Delivery O2 Flow Rate FiO2 12/02/17 10:34 51 20 Room Air 12/02/17 09:21 133/98 12/02/17 08:00 98.4 93 98.4 Intake and Output 12/01/17 12/02/17 19:00 07:00 Intake Total 30 ml 790 ml Output Total 300 ml Balance -270 ml 790 ml Intake Oral 0 ml Free Water 30 ml 90 ml IV Total 700 ml Output Urine Total 300 ml Objective General Appearance: mild distress, thin EENT: PERRL/EOMI, normal ENT inspection Neck: non-tender, normal alignment, supple Cardiovascular: normal peripheral pulses, normal rate, regular rhythm, no gallop/murmur, no JVD Respiratory/Chest: chest wall non-tender, lungs clear, normal breath sounds, no respiratory distress, no accessory muscle use Abdomen: normal bowel sounds, no mass, abnormal bowel sounds, decreased bowel sounds, tender Extremities: normal range of motion, non-tender Neurologic: calender let off helper II-XII grossly normal, no motor/sensory deficits Skin: normal pigmentation, warm/dry Assessment/Plan Problem List: (1) Diarrhea Assessment & Plan: Colonoscopy cancelled due to hypokalemia and lack of prep (2) Gastritis Assessment & Plan: S/P Endoscopy 11/21/17-see GI note. (3) Dehydration (4) Abdominal pain (5) CVA (cerebrovascular accident) (6) Left hemiparesis (7) Diabetes mellitus Assessment & Plan: Continue metformin (8) Hypertension Assessment & Plan: continue losartan (9) Anemia Assessment & Plan: Severe; slight improvement. Anglican-refused transfruion. See hematology note. (10) Patient is Anglican (11) Seizure disorder Assessment & Plan: New onset; Continue keppra per neurology (12) Duodenal ulcer Assessment & Plan: Continue protonix per GI (13) Anorexia Assessment & Plan: S/P PEG Sunday11/30/17-see GI note (14) Altered mental status Assessment & Plan: CT=acute right cerebellar infarct. Await neurology consult. DELFIN MARTINEZ Dec 02, 2017 13:05
[2017-12-02 16:00] VITALS: BP 137/68
--- NOTE | 2017-12-02 16:56 | Nephrology Progress Note ---
Assessment/Plan Assessment 1. Hypernatremia. resolved 2. Hypokalemia. 3. Non-anion gap acidosis, most likely as a result of diarrhea. 4. Hypocalcemia due to vit d deficiency 5. malnutrition 6. Hypophosphatemia. Plan continue vitamin D monitoring renal function avoid NSAID nutritional support replace electrolyte as need it Subjective Constitutional: Reports: no symptoms HEENT: Reports: no symptoms Genitourinary: Reports: no symptoms Neurologic/Psychiatric: Reports: no symptoms Subjective was transferred to [facility] for increase lethargy Objective Objective Last 24 Hour Vital Signs Date Time Temp Pulse Resp B/P (MAP) Pulse Ox O2 Delivery O2 Flow Rate FiO2 12/02/17 12:00 98.3 100 18 108/59 100 Room Air 98.3 12/02/17 10:34 51 20 Room Air 12/02/17 09:21 133/98 12/02/17 09:00 48 133/98 12/02/17 08:00 98.4 48 18 138/98 93 Room Air 98.4 12/02/17 04:00 94 12/02/17 04:00 98.2 90 14 94/54 92 Room Air 98.2 12/02/17 00:00 97.5 96 20 113/67 92 Room Air 97.5 12/01/17 23:46 96 12/01/17 21:00 97.2 97 16 90/56 99 Room Air 97.2 12/01/17 20:59 97 90/56 Intake and Output 12/01/17 12/02/17 18:59 06:59 Intake Total 30 ml 740 ml Output Total 300 ml Balance -270 ml 740 ml Intake Oral 0 ml Free Water 30 ml 90 ml IV Total 650 ml Output Urine Total 300 ml Height (Feet): 5 Height (Inches): 3.00 Weight (Pounds): 149 Objective HEAD AND NECK: No JVP. No LAD. No thyromegaly. Extraocular movement intact. Pupils are reactive to light and accommodation. LUNGS: Clear to auscultation. CARDIAC: Regular rate and rhythm. S1 and S2. No murmur. No rub. ABDOMEN: Soft, nontender, and nondistended. EXTREMITIES: Trace edema. No clubbing. No cyanosis. NEUROLOGIC: Cranial nerves II to XII within normal limits. Upper and lower extremities are grossly intact. SAKSHI FINN Dec 02, 2017 16:56
[2017-12-02] MEDS ORDERED: Tubing IV Secondary IV ONE (18:31)
[2017-12-02] MEDS ORDERED: NS 500ML ONE (18:31)
[2017-12-02 20:00] VITALS: BP 102/51
[2017-12-02] MEDS ORDERED: Epogen (for non ESRD use) SUBQ SCH (21:00)
[2017-12-02] MEDS: Dyna-Hex 2% Top Sol 2oz TOPIC SCH (22:22)
--- NOTE | 2017-12-02 23:50 | General Progress Note ---
Assessment/Plan Assessment/Plan #. Anemia due to iron deficiency. The patient is status post EGD showed solitary ulcer. --> Ongoing iron for 5 days. The patient continued to have iron deficiency. --> The patient is Christian and is refusing blood products even though there is increased morbidity, mortality in refusing blood products. --> Continue to monitor. Again, continue to recommend blood transfusions if hemoglobin less than 7. --> Hemoglobin levels remain low. #. Anemia of chronic disease. --> Continue the patient on Epogen. #. Christian, refusing blood products. #. Nausea, vomiting, and diarrhea. --> Closely monitor. Zofran has been administered. --> Improved. On Colace --> Poor PO noted. #. Colitis. --> She is on broad-spectrum antibiotics. --> Improving. #. Diarrhea. Recommend the patient to take antibiotics as needed. Check for Clostridium difficile. --> Start colace Subjective Date patient seen: Dec 02, 2017 Constitutional: Denies: no symptoms, chills, diaphoresis, fever, malaise, weakness, other HEENT: Denies: no symptoms, eye pain, blurred vision, tearing, double vision, ear pain, ear discharge, nose pain, nose congestion, throat pain, throat swelling, mouth pain, mouth swelling, other Cardiovascular: Denies: no symptoms, chest pain, edema, irregular heart rate, lightheadedness, palpitations, syncope, other Respiratory: Denies: no symptoms, cough, orthopnea, shortness of breath, SOB with excertion, SOB at rest, sputum, stridor, wheezing, other Gastrointestinal/Abdominal: Denies: no symptoms, abdomen distended, abdominal pain, black stools, tarry stools, blood in stool, constipated, diarrhea, difficulty swallowing, nausea, poor appetite, poor fluid intake, rectal bleeding , vomiting, other Genitourinary: Denies: no symptoms, burning, discharge, frequency, flank pain, hematuria, incontinence, pain, urgency, other Neurologic/Psychiatric: Denies: no symptoms, anxiety, depressed, emotional problems, headache, numbness, paresthesia, pre-existing deficit, seizure, tingling, tremors, weakness, other Endocrine: Denies: no symptoms, excessive sweating, flushing, intolerance to cold, intolerance to heat, increased hunger, increased thirst, increased urine, unexplained weight gain, unexplained weight loss, other Hematologic/Lymphatic: Reports: anemia Allergies: Coded Allergies: LATEX (Unverified Allergy, Mild, Rash, 09/03/14) QUININE (Unverified Allergy, Unknown, Rash Hives, 05/23/15) Quinine Sulfate Subjective No sob or abd pain. Resting in bed. Objective Last 24 Hour Vital Signs Date Time Temp Pulse Resp B/P (MAP) Pulse Ox O2 Delivery O2 Flow Rate FiO2 12/02/17 22:23 33 102/51 12/02/17 19:48 50 20 Room Air 21 12/02/17 16:22 99 12/02/17 16:00 97.0 99 18 137/68 99 Room Air 97.0 12/02/17 12:00 98.3 100 18 108/59 100 Room Air 98.3 12/02/17 10:34 51 20 Room Air 12/02/17 09:21 133/98 12/02/17 09:00 48 133/98 12/02/17 08:00 98.4 48 18 138/98 93 Room Air 98.4 12/02/17 04:00 94 12/02/17 04:00 98.2 90 14 94/54 92 Room Air 98.2 12/02/17 00:00 97.5 96 20 113/67 92 Room Air 97.5 Intake and Output 12/01/17 12/02/17 19:00 07:00 Intake Total 30 ml 790 ml Output Total 300 ml Balance -270 ml 790 ml Intake Oral 0 ml Free Water 30 ml 90 ml IV Total 700 ml Output Urine Total 300 ml Height (Feet): 5 Height (Inches): 3.00 Weight (Pounds): 149 General Appearance: no apparent distress Abdomen: soft Dg Fairbanks MD Dec 02, 2017 23:50
[2017-12-03] VITALS: BP 125/97
[2017-12-03] MEDS: Metoclopramide 10mg/10ml Liq NG SCH ×2 (00:22→05:42)
[2017-12-03 04:00] VITALS: BP 93/58
[2017-12-03] MEDS: Erythromycin Ethylsuccinate 200mg/5ml Susp GT SCH ×2 (05:42→13:50)
[2017-12-03] MEDS: NovoLOG Insulin Flexpen SUBQ SCH ×2 (06:30→11:30)
[2017-12-03 08:00] VITALS: BP 120/66
--- NOTE | 2017-12-03 08:06 | Pulmonology Progress Note ---
Assessment/Plan Assessment/Plan ASSESSMENT acute to subacute CVA Asthma dehydration due to intractable n/v/diarrhea anemia Jehovah witness s/p EGD 11/21 duodenal ulcer gastritis new onset of recurrent seizure disorder extensive cerebrovascular disease with hx of multiple strokes ischemic cardiomyopathy ( with last EF 30%) CHF ( no evidence of decompensation) AICD e/lyte imbalance ( hypo K, hypo P, hypo Mg) dysphagia MDD anxiety severe protein calorie malnutrition with anorexia multiple DTI POA posterior medial back st 4 pressure ulcer POA PLAN OF CARE tele CT head 12/02 Approximately 1.8 x 2.7 cm new area of low density involving the right inferior cerebellum consistent with acute to subacute infarct. No intracranial hemorrhage. further neuro eval pending can t start ASA due to severe anemia get Carotid Duplex lipid panel start statin if appropriate O2 HHN prn CXR no acute CP pathology monitor HH, on EPO and Venofer heme follows no transfusion due to advent beliefs stool OB + x1 and - x1 GI follows s/p EGD with findings of duodena ulcer, gastritis biopsy with chronic gastritis no H pylori H pylori serology pending colonoscopy as outpt PPI stool C dif and cx negative swallow eval noted with dysphagia, due to anorexia, severe prooeinc calorie malnutrition and poor oral intake ( trial of Marinol was attempted) s/p PEG 11/30 strict asp precautions, GTF, monitor tolerance apparently high residual, TF was placed on hold and started on gentle IVF patient with ischemic CM last EF30%, monitor carefully volume status need GI output re further management of GT neuro follows new onset of seizure seizure precautions Keppra and Ativan prn BS monitoring BP management pt with ischemic CM, last EF 30% in 2016, medical management with AICD, BB, ARB; no diuretic, clinically was dehydrated initially due to intractable n/v/diarrhea nephro follows, avoid nephrotoxic, e/lyte correction as per nephro psych follows, psych med regimen optimized symptomatic treatment wound care as per wound nurse recs case discussed and evaluated by supervising physician Subjective Allergies: Coded Allergies: LATEX (Unverified Allergy, Mild, Rash, 09/03/14) QUININE (Unverified Allergy, Unknown, Rash Hives, 05/23/15) Quinine Sulfate Subjective this am opened eyes, responded with dysarthria , then immediately closed her eyes on RA pulse ox stable Objective Last 24 Hour Vital Signs Date Time Temp Pulse Resp B/P (MAP) Pulse Ox O2 Delivery O2 Flow Rate FiO2 12/03/17 04:00 96.9 92 21 93/58 90 Room Air 96.9 12/03/17 00:00 97.7 66 21 125/97 99 Room Air 97.7 12/02/17 22:23 33 102/51 12/02/17 20:00 97.0 43 22 102/51 99 Room Air 97.0 12/02/17 19:48 50 20 Room Air 21 12/02/17 16:22 99 12/02/17 16:00 97.0 99 18 137/68 99 Room Air 97.0 12/02/17 12:00 98.3 100 18 108/59 100 Room Air 98.3 12/02/17 10:34 51 20 Room Air 12/02/17 09:21 133/98 12/02/17 09:00 48 133/98 12/02/17 08:00 98.4 48 18 138/98 93 Room Air 98.4 Intake and Output 12/02/17 12/03/17 19:00 07:00 Output Total 0 ml Balance 0 ml Output Urine Total 0 ml # Voids 1 Objective General Appearance: no acute distress, elderly bedridden female, somnolent, HEENT: normocephalic, atraumatic, anicteric Respiratory/Chest: chest wall non-tender, lungs clear, no respiratory distress , no accessory muscle use, ICD Cardiovascular: normal peripheral pulses, normal rate, regular rhythm, no JVD, RUE PICC intact Abdomen: soft, non tender, non distended, PEG intact, abd binder Neurologic/Psychiatric: abnormal gait - bedridden ,open eyes to verbal stimuli , dysarthric Musculoskeletal: atrophy Current Medications Medications (Trade) Dose Ordered Sig/Don Route PRN Reason Start Time Stop Time Status Last Admin Dose Admin Acetaminophen (Tylenol) 650 mg Q6H PRN ORAL Mild Pain/Temp > 100.5 12/01/17 16:00 12/27/17 15:59 Albuterol/ Ipratropium (Albuterol/ Ipratropium) 3 ml Q4H PRN HHN Shortness of Breath 12/01/17 16:00 12/06/17 15:59 Carvedilol (Coreg) 6.25 mg Q12HR ORAL 12/01/17 21:00 12/23/17 17:59 12/02/17 22:23 Chlorhexidine Gluconate (Merari-Hex 2%) 1 applic DAILY@2000 TOPIC 12/01/17 20:00 12/16/17 19:59 12/02/17 22:22 Clonidine HCl (Catapres Tab) 0.1 mg Q6H PRN ORAL FOR SBP>160 12/01/17 16:00 12/18/17 15:59 Collagenase (Santyl) 1 applic DAILY TOPIC 12/02/17 09:00 01/01/18 08:59 12/02/17 09:00 Dextrose (Dextrose 50%) STAT PRN IV Hypoglycemia 12/01/17 16:00 12/14/17 15:59 Dextrose/Sodium Chloride 1,000 ml @ 50 mls/hr Q20H IV 12/01/17 16:00 12/31/17 15:59 12/02/17 09:49 Docusate Sodium (Colace) 100 mg TWICE A DAY ORAL 12/01/17 18:00 12/26/17 08:59 12/02/17 17:50 Dronabinol (Marinol) 2.5 mg BID ORAL 12/01/17 18:00 12/25/17 17:59 12/02/17 17:50 Epoetin Barka (Procrit (for non ESRD use)) 20,000 units Q48H SUBQ 12/02/17 21:00 12/24/17 20:59 12/02/17 22:24 Erythromycin (Reza-Ped) 50 mg Q8HR GT 12/01/17 16:00 12/08/17 15:59 12/03/17 05:42 Folic Acid (Folate) 1 mg DAILY ORAL 12/02/17 09:00 12/16/17 08:59 12/02/17 09:22 Guaifenesin (Robitussin) 100 mg Q6H PRN ORAL For Cough 12/01/17 18:00 12/31/17 17:59 Insulin Aspart (NovoLOG) BEFORE MEALS AND HS SUBQ 12/01/17 16:30 12/15/17 17:59 12/02/17 22:27 Levetiracetam 100 ml @ 400 mls/hr Q12HR IVPB 12/01/17 21:00 4/11/18 21:59 12/02/17 22:23 Losartan Potassium (Cozaar) 50 mg DAILY ORAL 12/02/17 09:00 12/15/17 08:59 12/02/17 09:21 Metformin HCl (Glucophage) 500 mg TWICE A DAY ORAL 12/01/17 18:00 12/15/17 08:59 12/01/17 18:16 Metoclopramide HCl (Reglan) 10 mg EVERY 6 HOURS NG 12/02/17 00:00 12/30/17 21:59 12/03/17 05:42 Ondansetron HCl (Zofran) 4 mg Q4H PRN IVP Nausea & Vomiting 12/01/17 16:00 12/22/17 15:59 Pantoprazole (Protonix) 40 mg BID ORAL 12/01/17 18:00 12/22/17 08:59 12/02/17 17:50 Phenol/Menthol (Chloraseptic) 1 spray Q3H PRN ORAL SORE THROAT 12/01/17 16:00 12/25/17 15:59 Phosphorus (Phospha 250 Neutral) 500 mg THREE TIMES A DAY ORAL 12/01/17 18:00 12/23/17 17:59 12/02/17 17:50 Vitamin D (Vitamin D) 2,000 intlu BID ORAL 12/01/17 18:00 12/29/17 17:59 12/02/17 17:50 Nnamdi (Rafi)Nohemi NP Dec 03, 2017 08:06
--- NOTE | 2017-12-03 09:47 | Nephrology Progress Note ---
Assessment/Plan Assessment 1. Hypernatremia. resolved 2. Hypokalemia. 3. Non-anion gap acidosis, most likely as a result of diarrhea. 4. Hypocalcemia due to vit d deficiency 5. malnutrition 6. Hypophosphatemia. Plan continue vitamin D monitoring renal function avoid NSAID nutritional support replace electrolyte as need it Subjective Subjective was transferred to [facility] for increase lethargy Objective Objective Last 24 Hour Vital Signs Date Time Temp Pulse Resp B/P (MAP) Pulse Ox O2 Delivery O2 Flow Rate FiO2 12/03/17 08:00 97.0 76 16 120/66 92 97.0 12/03/17 04:00 96.9 92 21 93/58 90 Room Air 96.9 12/03/17 00:00 97.7 66 21 125/97 99 Room Air 97.7 12/02/17 22:23 33 102/51 12/02/17 20:00 97.0 43 22 102/51 99 Room Air 97.0 12/02/17 19:48 50 20 Room Air 21 12/02/17 16:22 99 12/02/17 16:00 97.0 99 18 137/68 99 Room Air 97.0 12/02/17 12:00 98.3 100 18 108/59 100 Room Air 98.3 12/02/17 10:34 51 20 Room Air Intake and Output 12/02/17 12/03/17 19:00 07:00 Output Total 0 ml Balance 0 ml Output Urine Total 0 ml # Voids 1 Height (Feet): 5 Height (Inches): 3.00 Weight (Pounds): 149 Objective HEAD AND NECK: No JVP. No LAD. No thyromegaly. Extraocular movement intact. Pupils are reactive to light and accommodation. LUNGS: Clear to auscultation. CARDIAC: Regular rate and rhythm. S1 and S2. No murmur. No rub. ABDOMEN: Soft, nontender, and nondistended. EXTREMITIES: Trace edema. No clubbing. No cyanosis. NEUROLOGIC: Cranial nerves II to XII within normal limits. Upper and lower extremities are grossly intact. SAKSHI FINN Dec 03, 2017 09:47
[2017-12-03] MEDS ORDERED: Losartan 50mg tab GT SCH (10:00)
[2017-12-03] MEDS ORDERED: Carvedilol 6.25mg Tab GT SCH (10:00)
[2017-12-03] MEDS ORDERED: Dronabinol 2.5mg Cap GT SCH (10:00)
[2017-12-03] MEDS: levETIRAcetam 500mg/NS100ml 100 ML IVPB SCH (10:21)
[2017-12-03] MEDS: Docusate 100mg/10ml Liq GT SCH ×2 (10:21→18:25)
[2017-12-03] MEDS: Phospha 250 Neutral tab GT SCH ×3 (10:23→18:29)
[2017-12-03] MEDS: metFORMIN 500mg tab GT SCH ×2 (10:23→18:25)
[2017-12-03] MEDS: Vitamin D 1000 IU Tab GT SCH ×2 (10:23→18:26)
--- NOTE | 2017-12-03 11:15 | Neurology Progress Note ---
Interim History Interim History ROS Limited/Unobtainable: Yes Complaints: nonverbal Events: no sz noted, less responsive, mute Objective Physical Exam Last Vital Signs Date Time Temp Pulse Resp B/P (MAP) Pulse Ox O2 Delivery O2 Flow Rate FiO2 12/03/17 10:24 78 18 Room Air 21 12/03/17 08:00 97.0 120/66 92 97.0 General: well developed, no acute distress, other - cachectic, pale Head: normocophalic, atraumatic Neck: no rigidity Neurologic Exam Mental Status: awake, other - now nonverbal doesnot folow command Speech: no dysarthia Language: other Cranial Nerve II: fundus normal, visual garcía, no papilledema Cranial Nerves III, IV, : PERRLA, EOMI, pupils Cranial Nerve V: normal facial sensations, temporales function normal, masseters function normal, pterygoids function normal Cranial Nerve VII: normal facial expressions Cranial Nerve VIII: no nystagmus Cranial Nerve IX: other - poor gag, on G tube Cranial Nerve XI: trapezii function normal Cranial Nerve XII: no tongue atrophy/fasciculations Motor System: other - L hemiplegia .R leg 3/5 Sensory: other - no responces Coordination: other Deep Tendon Reflexes: 0 bicep (L), 0 bicep (R), 0 tricep (L), 0 tricep (R), 0 brachioradialis (L), 0 brachioradialis (R), 0 knee (L), 0 knee (R), 0 ankle (L) , 0 ankle (R) Reflexes: extensor plantar (L), extensor plantar (R) Impression/Recommendations Problems: (1) Acute right arterial ischemic stroke, MANAGER BUSINESS INFORMATION (posterior cerebral artery) (2) new onset seizure disorder (3) Dementia arising in the senium and presenium (4) multiple ischemic strokes R>L old (5) AICD (automatic cardioverter/defibrillator) present Status: progressing, deteriorating Recommendations #[id number] keppra 500mg bid sz precaution avoid hypotension keep SBP >120 NISH AVALOS Dec 03, 2017 11:15
--- NOTE | 2017-12-03 11:21 | GI Progress Note ---
Assessment/Plan Problems: (1) Nausea, vomiting, and diarrhea ICD Codes: R11.2 - Nausea with vomiting, unspecified; R19.7 - Diarrhea, unspecified SNOMED: 1336287 (2) Pacemaker ICD Codes: Z95.0 - Pacemaker SNOMED: 965017114 (3) Patient is Yarsani ICD Codes: Z78.9 - Other specified health status SNOMED: 71510432 (4) Anemia ICD Codes: D64.9 - Anemia, unspecified SNOMED: 307747493 (5) colitis (6) Severe anemia ICD Codes: D64.9 - Anemia, unspecified SNOMED: 395124940 (7) Severe malnutrition ICD Codes: E43 - Unspecified severe protein-calorie malnutrition SNOMED: 53739106 Status: unchanged Status Narrative Discussed with Dr. Diaz. Assessment/Plan OB stool positive, second sample is negative S/P EGD >> duodenal ulcer >> possible source of bleed, second OB stool now negative >> fu H. Pylori serology Status post successful percutaneous endoscopic gastrostomy placement. RECOMMENDATIONS: GTFs per RD GT site care daily/prn fu H.pylori serology bowel regime fu labs Jehovah Witness >> NO blood transfusion The patient was seen and examined at bedside and all new and available data was reviewed in the patients chart. I agree with the above findings, impression and plan. (Patient seen earlier today. Signature stamp does not reflect patient encounter time.). - Lanie Diaz MD Subjective Subjective limited Objective Last 24 Hour Vital Signs Date Time Temp Pulse Resp B/P (MAP) Pulse Ox O2 Delivery O2 Flow Rate FiO2 12/03/17 10:24 78 18 Room Air 21 12/03/17 08:00 97.0 76 16 120/66 92 97.0 12/03/17 04:00 96.9 92 21 93/58 90 Room Air 96.9 12/03/17 00:00 97.7 66 21 125/97 99 Room Air 97.7 12/02/17 22:23 33 102/51 12/02/17 20:00 97.0 43 22 102/51 99 Room Air 97.0 12/02/17 19:48 50 20 Room Air 21 12/02/17 16:22 99 12/02/17 16:00 97.0 99 18 137/68 99 Room Air 97.0 3/25/18 12:00 98.3 100 18 108/59 100 Room Air 98.3 Intake and Output 12/02/17 12/03/17 19:00 07:00 Output Total 0 ml Balance 0 ml Output Urine Total 0 ml # Voids 1 Height (Feet): 5 Height (Inches): 3.00 Weight (Pounds): 149 General Appearance: no apparent distress, alert, thin Cardiovascular: normal rate Respiratory/Chest: normal breath sounds, no respiratory distress Abdominal Exam: normal bowel sounds, non tender, soft, GT site - c/d/i Extremities: non-tender Jelly Lang N.P. Dec 03, 2017 11:21 ORIANA DIAZ Dec 04, 2017 13:21
--- NOTE | 2017-12-03 11:23 | Internal Med Progress Note ---
Subjective Date of Service: Dec 03, 2017 Physician Name MartinezDelfin Attending Physician Lobito Jones MD Current Medications Medications (Trade) Dose Ordered Sig/Don Route PRN Reason Start Time Stop Time Status Last Admin Dose Admin Acetaminophen (Tylenol) 650 mg Q6H PRN ORAL Mild Pain/Temp > 100.5 12/01/17 16:00 12/27/17 15:59 Albuterol/ Ipratropium (Albuterol/ Ipratropium) 3 ml Q4H PRN HHN Shortness of Breath 12/01/17 16:00 12/06/17 15:59 Carvedilol (Coreg) 6.25 mg Q12HR GT 12/03/17 10:00 12/23/17 17:59 Chlorhexidine Gluconate (Merari-Hex 2%) 1 applic DAILY@1999 TOPIC 12/01/17 20:00 12/16/17 19:59 12/02/17 22:22 Clonidine HCl (Catapres Tab) 0.1 mg Q6H PRN GT FOR SBP>160 12/03/17 10:00 12/18/17 15:59 Collagenase (Santyl) 1 applic DAILY TOPIC 12/02/17 09:00 01/01/18 08:59 12/03/17 09:00 Dextrose (Dextrose 50%) STAT PRN IV Hypoglycemia 12/01/17 16:00 12/14/17 15:59 Docusate Sodium (Colace) 100 mg TWICE A DAY GT 12/03/17 10:00 12/26/17 08:59 12/03/17 10:21 Dronabinol (Marinol) 2.5 mg BID GT 12/03/17 10:00 12/25/17 17:59 Epoetin Barak (Procrit (for non ESRD use)) 20,000 units Q48H SUBQ 12/02/17 21:00 12/24/17 20:59 12/02/17 22:24 Erythromycin (Reza-Ped) 50 mg Q8HR GT 12/01/17 16:00 12/08/17 15:59 12/03/17 05:42 Folic Acid (Folate) 1 mg DAILY GT 12/03/17 10:00 12/16/17 08:59 12/03/17 10:22 Guaifenesin (Robitussin) 100 mg Q6H PRN ORAL For Cough 12/01/17 18:00 12/31/17 17:59 Insulin Aspart (NovoLOG) BEFORE MEALS AND HS SUBQ 12/01/17 16:30 12/15/17 17:59 12/02/17 22:27 Levetiracetam 100 ml @ 400 mls/hr Q12HR IVPB 12/01/17 21:00 12/19/17 21:59 12/03/17 10:21 Losartan Potassium (Cozaar) 50 mg DAILY GT 12/03/17 10:00 12/15/17 08:59 Metformin HCl (Glucophage) 500 mg TWICE A DAY GT 12/03/17 10:00 12/15/17 08:59 12/03/17 10:23 Metoclopramide HCl (Reglan) 10 mg EVERY 6 HOURS GT 12/03/17 12:00 12/30/17 21:59 Ondansetron HCl (Zofran) 4 mg Q4H PRN IVP Nausea & Vomiting 12/01/17 16:00 12/22/17 15:59 Pantoprazole (Protonix) 40 mg BID ORAL 12/01/17 18:00 12/22/17 08:59 12/02/17 17:50 Phenol/Menthol (Chloraseptic) 1 spray Q3H PRN ORAL SORE THROAT 12/01/17 16:00 12/25/17 15:59 Phosphorus (Phospha 250 Neutral) 500 mg THREE TIMES A DAY GT 12/03/17 10:00 12/23/17 17:59 12/03/17 10:23 Vitamin D (Vitamin D) 2,000 intlu BID GT 12/03/17 10:00 12/29/17 17:59 12/03/17 10:23 Allergies: Coded Allergies: LATEX (Unverified Allergy, Mild, Rash, 09/03/14) QUININE (Unverified Allergy, Unknown, Rash Hives, 05/23/15) Quinine Sulfate ROS Limited/Unobtainable: Yes Subjective 76 YO F admitted with diarrhea and dehydration. S/P Endoscopy 11/21/17. Cover for Int Med-Dr Jones. S/P PEG on Sunday11/30/17. Worsening Altered mental status Objective Last Vital Signs Date Time Temp Pulse Resp B/P (MAP) Pulse Ox O2 Delivery O2 Flow Rate FiO2 12/03/17 10:24 78 18 Room Air 21 12/03/17 08:00 97.0 120/66 92 97.0 Intake and Output 12/02/17 12/03/17 19:00 07:00 Output Total 0 ml Balance 0 ml Output Urine Total 0 ml # Voids 1 Objective General Appearance: mild distress, thin EENT: PERRL/EOMI, normal ENT inspection Neck: non-tender, normal alignment, supple Cardiovascular: normal peripheral pulses, normal rate, regular rhythm, no gallop/murmur, no JVD Respiratory/Chest: chest wall non-tender, lungs clear, normal breath sounds, no respiratory distress, no accessory muscle use Abdomen: normal bowel sounds, no mass, abnormal bowel sounds, decreased bowel sounds, tender Extremities: normal range of motion, non-tender 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 (3) Dehydration (4) Abdominal pain (5) CVA (cerebrovascular accident) (6) Left hemiparesis (7) Diabetes mellitus Assessment & Plan: Continue metformin (8) Hypertension Assessment & Plan: continue losartan (9) Anemia Assessment & Plan: Severe; slight improvement. Confucianism-refused transfruion. See hematology note. (10) Patient is Confucianism (11) Seizure disorder Assessment & Plan: New onset; Continue keppra per neurology (12) Duodenal ulcer Assessment & Plan: Continue protonix per GI (13) Anorexia Assessment & Plan: S/P PEG Sunday11/30/17-see GI note (14) Altered mental status Assessment & Plan: CT=acute right cerebellar infarct. See neurology consult. Status: deteriorating DELFIN MARTINEZ Dec 03, 2017 11:23
[2017-12-03 12:00] VITALS: BP 120/73
[2017-12-03] MEDS: Metoclopramide 10mg/10ml Liq GT SCH ×2 (13:50→18:28)
[2017-12-03 16:00] VITALS: BP 129/68
[2017-12-03] MEDS ORDERED: NovoLOG Insulin Flexpen SUBQ SCH (18:00)
[2017-12-03] MEDS ORDERED: Megace 400mg/10ml Susp GT SCH (18:00)
--- NOTE | 2017-12-03 18:46 | General Progress Note ---
Assessment/Plan Assessment/Plan mdd anxiety cont remeron Subjective Date patient seen: Dec 03, 2017 Neurologic/Psychiatric: Reports: anxiety, depressed, emotional problems Allergies: Coded Allergies: LATEX (Unverified Allergy, Mild, Rash, 09/03/14) QUININE (Unverified Allergy, Unknown, Rash Hives, 05/23/15) Quinine Sulfate Subjective the pt is nad, calmer Objective Last 24 Hour Vital Signs Date Time Temp Pulse Resp B/P (MAP) Pulse Ox O2 Delivery O2 Flow Rate FiO2 12/03/17 16:00 97.7 67 18 129/68 94 97.7 12/03/17 12:00 97.5 71 19 120/73 91 97.5 12/03/17 12:00 82 12/03/17 10:24 78 18 Room Air 21 12/03/17 08:00 97.0 76 16 120/66 92 97.0 12/03/17 08:00 88 12/03/17 04:00 96.9 92 21 93/58 90 Room Air 96.9 12/03/17 00:00 97.7 66 21 125/97 99 Room Air 97.7 12/02/17 22:23 33 102/51 12/02/17 20:00 97.0 43 22 102/51 99 Room Air 97.0 12/02/17 19:48 50 20 Room Air 21 Intake and Output 12/02/17 12/03/17 19:00 07:00 Output Total 0 ml Balance 0 ml Output Urine Total 0 ml # Voids 1 Height (Feet): 5 Height (Inches): 3.00 Weight (Pounds): 149 Tani Kitchen M.D. Dec 03, 2017 18:45
[2017-12-03] MEDS ORDERED: Sterile Water Irrig 1000ml IRRIG ONE (20:44)
[2017-12-03] MEDS ORDERED: Sodium Bicarbonate 50ml Carp ONE (20:44)
[2017-12-03] MEDS ORDERED: Atropine Inj 1mg/10ml Syr ONE (20:44)
[2017-12-03] MEDS ORDERED: Lidocaine 2% 100mg/5ml Carp ONE (20:44)
--- NOTE | 2017-12-03 22:22 | Emergency Room Report ---
History of Present Illness General Chief Complaint: Nausea, Vomiting, and Diarrhea Source: Patient, Medical Record, PMD Present Illness Allergies: Coded Allergies: LATEX (Unverified Allergy, Mild, Rash, 09/03/14) QUININE (Unverified Allergy, Unknown, Rash Hives, 05/23/15) Quinine Sulfate Nursing Documentation-PMH Hx Cardiac Problems: Yes Hx Hypertension: Yes Hx Pacemaker: Yes Hx Asthma: Yes Hx Diabetes: Yes Hx Cancer: No Hx Gastrointestinal Problems: Yes - gastritis Hx Neurological Problems: Yes Hx Cerebrovascular Accident: Yes Hx Dementia: Yes Hx Vertigo: Yes Hx Dizziness: Yes Hx Syncope: Yes Hx Headaches: Yes Hx Weakness: Yes Hx Fatigue: Yes Physical Exam Vital Signs Date Time Temp Pulse Resp B/P (MAP) Pulse Ox O2 Delivery O2 Flow Rate FiO2 11/29/17 08:37 98.4 88 20 123/72 95 98.4 11/30/17 03:53 Room Air 12/02/17 19:48 21 Medical Decision Making Diagnostic Impression: Primary Impression: Colitis ER Course I was contacted for asystolic arrest. Patient had been given medications prior to my arrival. Patient was noted to have been undergoing CPR. Patient was intubated after direct laryngoscopy 1 with a Mac 3 blade. The patient was noted to have a large amount of vomitus The patient had initial return of spontaneous circulation. The patient was subsequently transferred ICU. The patient had repeated cardiac arrest and underwent CPR again. Patient was pronounced at 8:45 PM. The family was at the bedside Last Vital Signs Date Time Temp Pulse Resp B/P (MAP) Pulse Ox O2 Delivery O2 Flow Rate FiO2 12/03/17 20:26 60 16 100 12/03/17 16:00 97.7 129/68 94 97.7 12/03/17 10:24 Room Air Disposition: Condition: Scripts Levetiracetam (Keppra) 250 Mg Tablet 500 MG ORAL EVERY 12 HOURS for 30 Days, #50 TAB 0 Refills Prov: Juana Watson MD 11/21/17 Referrals: Lobito Jones MD (PCP) Patient Instructions: Nikko FisherChris Dec 03, 2017 22:22
--- NOTE | 2017-12-03 23:42 | General Progress Note ---
Assessment/Plan Assessment/Plan #. Anemia due to iron deficiency. The patient is status post EGD showed solitary ulcer. --> Ongoing iron for 5 days. The patient continued to have iron deficiency. --> The patient is Restorationist and is refusing blood products even though there is increased morbidity, mortality in refusing blood products. --> Continue to monitor. Again, continue to recommend blood transfusions if hemoglobin less than 7. --> Hemoglobin levels remain low. #. Anemia of chronic disease. --> Continue the patient on Epogen. #. Restorationist, refusing blood products. #. Nausea, vomiting, and diarrhea. --> Closely monitor. Zofran has been administered. --> Improved. On Colace --> Poor PO noted. #. Colitis. --> She is on broad-spectrum antibiotics. --> Improving. #. Diarrhea. Recommend the patient to take antibiotics as needed. Check for Clostridium difficile. --> Start colace Subjective Date patient seen: Dec 03, 2017 Constitutional: Denies: no symptoms, chills, diaphoresis, fever, malaise, weakness, other HEENT: Denies: no symptoms, eye pain, blurred vision, tearing, double vision, ear pain, ear discharge, nose pain, nose congestion, throat pain, throat swelling, mouth pain, mouth swelling, other Cardiovascular: Denies: no symptoms, chest pain, edema, irregular heart rate, lightheadedness, palpitations, syncope, other Respiratory: Denies: no symptoms, cough, orthopnea, shortness of breath, SOB with excertion, SOB at rest, sputum, stridor, wheezing, other Gastrointestinal/Abdominal: Denies: no symptoms, abdomen distended, abdominal pain, black stools, tarry stools, blood in stool, constipated, diarrhea, difficulty swallowing, nausea, poor appetite, poor fluid intake, rectal bleeding , vomiting, other Genitourinary: Denies: no symptoms, burning, discharge, frequency, flank pain, hematuria, incontinence, pain, urgency, other Neurologic/Psychiatric: Denies: no symptoms, anxiety, depressed, emotional problems, headache, numbness, paresthesia, pre-existing deficit, seizure, tingling, tremors, weakness, other Hematologic/Lymphatic: Reports: anemia Allergies: Coded Allergies: LATEX (Unverified Allergy, Mild, Rash, 12/25/14) QUININE (Unverified Allergy, Unknown, Rash Hives, 05/23/15) Quinine Sulfate Subjective Poor prognosis. Lethargic. Nonresponsive. Objective Last 24 Hour Vital Signs Date Time Temp Pulse Resp B/P (MAP) Pulse Ox O2 Delivery O2 Flow Rate FiO2 12/03/17 20:26 60 16 100 12/03/17 16:22 87 12/03/17 16:00 97.7 67 18 129/68 94 97.7 12/03/17 12:00 97.5 71 19 120/73 91 97.5 12/03/17 12:00 82 12/03/17 10:24 78 18 Room Air 21 12/03/17 08:00 97.0 76 16 120/66 92 97.0 12/03/17 08:00 88 12/03/17 04:00 96.9 92 21 93/58 90 Room Air 96.9 12/03/17 00:00 97.7 66 21 125/97 99 Room Air 97.7 Intake and Output 12/02/17 12/03/17 19:00 07:00 Output Total 0 ml Balance 0 ml Output Urine Total 0 ml # Voids 1 Height (Feet): 5 Height (Inches): 3.00 Weight (Pounds): 149 General Appearance: lethargic Respiratory/Chest: decreased breath sounds Edema: moderate edema Dg Fairbanks MD Dec 03, 2017 23:42
[2017-12-04] MEDS ORDERED: Pantoprazole Inj IVP SCH (09:00)
--- NOTE | 2017-12-06 12:09 | Discharge Summary ---
Discharge Summary Hospital Course Date of Admission Nov 14, 2017 at 19:08 Date of Discharge Dec 03, 2017 at 20:45 Admitting Diagnosis colitis/vomiting/diarrhea HPI Shirin Jeremy Sommer is a 77 year old female who was admitted on Nov 14, 2017 at 19:08 for Colitis/Vomiting/Diarrhea Hospital Course summary #[id number] Discharge Discharge Disposition Patient Nnamdi (Rafi)Nohemi NP Dec 06, 2017 12:09
--- NOTE | 2017-12-07 03:46 | Discharge Summary 2 SIG ---
DATE OF ADMISSION: 11/14/2017 DATE OF DISCHARGE: 12/03/2017 REASON FOR ADMISSION: 77 years old female with past medical history significant for hypertension, myocardial infarction, coronary artery disease, CVA with left hemiparesis, dementia, anemia, AICD, history of CHF, Jehovah Witness, presented from home with complaint of recurrent non-bloody diarrhea. No fever, no chills. No nausea, no vomiting. Patient reported decreased appetite. Vital signs were stable. No leukocytosis. Hemoglobin- 8.3 and hematocrit- 27. EKG revealed normal sinus rhythm. Chest x-ray revealed no acute cardiopulmonary pathology. The patient was admitted with diarrhea, dehydration, diabetes mellitus type 2, hypertension, history of CVA with left hemiparesis, coronary artery disease, history of CHF, hypercholesterolemia, history of DVT, and possible colitis. CONSULTANTS: 1. Time Analysis Clerk, Dr. Nur. 2. GI, Dr. Valero. 3. Neurologist, Dr. Evangelista. 4. [employer] Airspace Officer, Dr. Fairbanks. 5. [employer] Clerk, Dr. Watson. 6. Psychiatrist, Dr. Kitchen. 7. Linoleum Layer Helper, Dr. Jimenez. HOSPITAL COURSE: The patient was admitted to telemetry floor initially. Blood pressure was managed with the beta-crow. Supplemental oxygen provided as needed to keep pulse oximetry above 92%. Pulmonary toilet provided as needed. Hemoglobin and hematocrit were closely monitored, no transfusion secondary to being Jehovah witness. The patient was on Epogen and Venofer. [employer] Airspace Officer closely followed. Stool OB was positive x1 and negative x1. GI closely followed. The patient subsequently undergone EGD with findings of duodenal ulcer and gastritis. Biopsy revealed chronic gastritis and no H. pylori infection. GI recommended colonoscopy as outpatient. H. pylori serology was ordered and still pending. The patient was on PPI. Stool for C. difficile and stool culture were negative. Antidiarrheal provided as needed. The patient undergone swallow evaluation, which revealed dysphagia. Due to anorexia, severe protein-calorie malnutrition, and poor oral intake (trial of Marinol was attempted prior), the patient undergone PEG placement on 11/30/2017 with prior daughter consent. Strict aspiration precautions were maintained. G-tube feeding tolerance was monitored. Apparently, the patient had high residual, and tube feeding was placed on hold. The patient was started on gentle IV fluids. Given that the patient had ischemic cardiomyopathy with last ejection fraction of 30%, volume status was very closely monitored. Neurologist initially seen the patient for new onset of seizure. The patient was started on Keppra and Ativan as needed for breakthrough seizure. Seizure precautions were maintained. Blood pressure and blood sugar was managed with current regimen. The patient had ischemic cardiomyopathy as mentioned above with last ejection fraction 30% in 2017. Medical management of congestive heart failure with AICD, beta-crow, ARB. No diuretic since the patient was dehydrated initially due to intractable nausea, vomiting, and diarrhea. Time Analysis Clerk closely followed. Nephrotoxics were avoided. Electrolytes were closely monitored along with renal parameters and replaced as needed. Venous duplex revealed chronic DVT bilateral lower extremities, no acute DVT. Psychiatrist followed. Psychiatric medication regimen was optimized. Psychiatrist diagnosed the patient with major depressive disorder and anxiety. Wound care provided as per wound care nurse recommendation for multiply deep tissue injuries present on admission and posterior middle back stage IV pressure ulcer, present on admission. Dietary recommendation regarding nutritional supplements implemented in plan of care. Initial CT of the head when the patient had a new onset of seizure was done on 11/19/2017. At that time, it was negative for acute intracranial bleeding or mass effect, but showed multiple old infarcts with extensive chronic age related changes. The patient was noted to be altered on 12/01/2017 when she did not tolerate feeding. At that time she was on medical/surgical floor. The patient was transferred to telemetry for altered level of consciousness. in the evening. In the morning, CT of the head was done stat and at that time it revealed 1.8 x 2.7 cm new area of low density involving the right inferior cerebellum consistent with acute to subacute infarct, no intracranial hemorrhage. Carotid duplex was ordered, however, was not done yet. Unable to start aspirin due to severe anemia. Last hemoglobin on 11/27/2017 -6.8 and hematocrit- 21.8. While being on telemetry floor on 12/03/2017, the patient was found to be in asystolic arrest. Aakash Valdivia was called. The patient undergone CPR during which she was intubated. The patient noted to have a large amount of vomitus. The patient initially had return of spontaneous circulation and was transferred to ICU. However, the patient sustained a repeated cardiac arrest and underwent CPR again, which unfortunately was unsuccessful. . The patient was pronounced at 8:45 p.m. on 12/03/2017. Family was at the bedside. Cause of : cardiopulmonary arrest. FINAL DIAGNOSES: Status post cardiopulmonary arrest x2 Acute respiratory failure requiring intubation. Acute right arterial ischemic stroke, FINE ARTS CHAIR( posterior cerebral artery). New onset of seizure disorder. Severe anemia. Jehovah witness. Status post EGD 11/21/2017, duodenal ulcer, gastritis. Extensive cerebrovascular disease with history of multiple strokes. Ischemic cardiomyopathy (ejection fraction 30%). CHF (no evidence of decompensation). AICD. Dehydration, secondary to intractable nausea, vomiting, and diarrhea. Asthma. Dysphagia. Status post PEG. Diabetes. Major depression disorder. Anxiety. Severe protein-calorie malnutrition with anorexia. Electrolyte imbalance (hypokalemia, hypophosphatemia, and hypomagnesemia). Multiple deep tissue injuries, present on admission. Posterior medial back stage IV pressure ulcer, present on admission. Lobito Jones M.D. Nohemi CarolinaGracie Square HospitalCristina V[facility]quez DR: SOHEILA JOB#: [id number] CC: ELIGIO
== END 2017-12-03 20:45 | disposition expired | DRG 391 ==
LOC: EDBD 15:17 → EMR 16:05 → 4E 19:08 → EDBEDREQ 20:23 → EDBEDREQSVC 20:23 → EDBEDREQTM 20:23 → EDBEDREQ 21:34 → 2E 11-19 15:07 → 4W 11-22 15:57 → 2E 12-01 14:15 → ICU 12-03 20:20
PROC: 02HV33Z Insertion of Infusion Device into Superior Vena Cava, Percutaneous Approach (ICD-10-PCS; principal; 2017-11-16)
PROC: B518ZZA Fluoroscopy of Superior Vena Cava, Guidance (ICD-10-PCS; principal; 2017-11-16)
PROC: 0DB78ZX Excision of Stomach, Pylorus, Via Natural or Artificial Opening Endoscopic, Diagnostic (ICD-10-PCS; 2017-11-21)
PROC: 0DH63UZ Insertion of Feeding Device into Stomach, Percutaneous Approach (ICD-10-PCS; 2017-11-30)
PROC: 0BH17EZ Insertion of Endotracheal Airway into Trachea, Via Natural or Artificial Opening (ICD-10-PCS; 2017-12-03)
PROC: 5A12012 Performance of Cardiac Output, Single, Manual (ICD-10-PCS; 2017-12-03)
DX: K52.9 Noninfective gastroenteritis and colitis, unspecified (principal); L89.104 Pressure ulcer of unspecified part of back, stage 4; J96.00 Acute respiratory failure, unspecified whether with hypoxia or hypercapnia; I63.9 Cerebral infarction, unspecified; E43 Unspecified severe protein-calorie malnutrition; E87.0 Hyperosmolality and hypernatremia; E87.2 Acidosis; K26.9 Duodenal ulcer, unspecified as acute or chronic, without hemorrhage or perforation; G40.89 Other seizures; I11.0 Hypertensive heart disease with heart failure; G93.89 Other specified disorders of brain; I69.954 Hemiplegia and hemiparesis following unspecified cerebrovascular disease affecting left non-dominant side; D50.9 Iron deficiency anemia, unspecified; E86.0 Dehydration; I50.9 Heart failure, unspecified; Z95.810 Presence of automatic (implantable) cardiac defibrillator; K57.10 Diverticulosis of small intestine without perforation or abscess without bleeding; J45.909 Unspecified asthma, uncomplicated; E87.6 Hypokalemia; R62.7 Adult failure to thrive; R13.10 Dysphagia, unspecified; I69.922 Dysarthria following unspecified cerebrovascular disease; I69.920 Aphasia following unspecified cerebrovascular disease; I25.10 Atherosclerotic heart disease of native coronary artery without angina pectoris; Z95.5 Presence of coronary angioplasty implant and graft; E11.9 Type 2 diabetes mellitus without complications; E78.00 Pure hypercholesterolemia, unspecified; Z86.718 Personal history of other venous thrombosis and embolism; F32.9 Major depressive disorder, single episode, unspecified; F41.9 Anxiety disorder, unspecified; I69.398 Other sequelae of cerebral infarction; Z96.653 Presence of artificial knee joint, bilateral; K29.70 Gastritis, unspecified, without bleeding; R26.9 Unspecified abnormalities of gait and mobility; F03.90 Unspecified dementia, unspecified severity, without behavioral disturbance, psychotic disturbance, mood disturbance, and anxiety; E55.9 Vitamin D deficiency, unspecified; I25.5 Ischemic cardiomyopathy; Z68.26 Body mass index [BMI] 26.0-26.9, adult; L89.620 Pressure ulcer of left heel, unstageable; L89.610 Pressure ulcer of right heel, unstageable; E83.39 Other disorders of phosphorus metabolism; E83.42 Hypomagnesemia
CPT/HCPCS: 36415; 36569; 70450; 71045; 76937; 80048; 80053; 81270; 82270; 82306; 82607; 82728; 82746; 82962; 83010; 83020; 83540; 83550; 83615; 83690; 83735; 83880; 83921; 84100; 84439; 84443; 85007; 85025; 85044; 85060; 85610; 85730; 86677; 87045; 87324; 90630; 92950; 93005; 93970; 94002; 94003; 94150; 94664; 99285; C9399; J0171; J1815; J2405; J8499